=== PATIENT | female | born 1940 | race Caucasian/White ===

== ENCOUNTER 2017-09-05 15:58 | Inpatient (IN) | payer MEDICARE, SELFPAY ==
[2017-09-05 16:00] VITALS: BP 157/72; PULSE 88; RESP 14; TEMP 36.9; O2SAT 98; BMI 32.2
--- NOTE | 2017-09-05 16:35 | RAD_ITS ---
STUDY: X-RAY CHEST REASON FOR EXAM: Female, 77 years old. Bilateral leg edema. TECHNIQUE: Single frontal view of the chest. COMPARISON: September 29, 2013 FINDINGS: There is stable low volume inspiration. There is no demonstrated pleural abnormality. There is cardiomegaly unchanged. Normal mediastinum and tere. Normal visualized pulmonary arteries. There is stable atherosclerotic calcification of the aortic arch with tortuosity. Normal visualized thoracic spine. Normal visualized ribs, clavicles, and shoulders. There is no demonstrated abnormality of the visualized soft tissue structures of the upper abdomen. RAD/Chest 1 View (Portable) IMPRESSION: Stable cardiomegaly with low volume inspiration. No acute pathology. Electronically Signed: Alex Cortes MD at 17:18 EST , Service support ,
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
[2017-09-05 17:28] LABS: Absolute Neutrophil Count 4.6 X10^3/uL (2.0-7.7); Basophil# 0.03 X10^3/uL; Basophil% 0.5 % (0-1); Eosinophil# 0.18 X10^3/uL; Eosinophils% 2.7 % (0-5); Hematocrit 34.8 % (37-47); Hemoglobin 10.9 g/dl (12.0-15.0); Lymphocyte % 16.6 % (19-41); Mean Corp Hgb Conc 31.3 g/gl (32-36); Mean Corpuscular Hgb 28.6 pg (27.0-32.0); Mean Corpuscular Volume 91.3 fL (81-99); Mean Platelet Vol. 10.1 fl (6.2-12.0); Monocyte# 0.76 X10^3/uL; Monocyte% 11.5 % (0-10); Neutrophil # 4.55 X10^3/uL (2.7-7.7); Neutrophil % 68.5 % (47-70); Platelet Count 195 K/mm3 (150-450); RBC Distribution Width CV 14.7 % (11.6-14.6); RBC Distribution Width SD 47.9 fl (35.1-43.9); Red Blood Count 3.81 M/mm3 (4.2-5.4); White Blood Count 6.6 K/mm3 (4.4-11.0)
[2017-09-05 17:36] LABS: Erythrocyte Sedimentation Rate 32 mm/hr (0-30)
[2017-09-05 17:46] LABS: POSITIVE COUNT NO; POSITIVE DIFFERENTIAL NO; POSITIVE MORPHOLOGY NO
[2017-09-05 18:13] LABS: BNP,B-Type NATRIURETIC PEPTIDE 12.9 pg/mL (0-100)
--- NOTE | 2017-09-05 18:13 | US_ITS ---
STUDY: VENOUS DOPPLER ULTRASOUND - BILATERAL LOWER EXTREMITIES REASON FOR EXAM: Female, 77 years old. Bilateral edema lower extremities TECHNIQUE: Ultrasound evaluation of the deep vein system to include felipe-scale imaging and compression was performed. Felipe-scale imaging and Doppler sonographic evaluation, including duplex spectral analysis and qualitative color flow sonography, was performed. COMPARISON: None. FINDINGS: RIGHT LEG Common Femoral Vein: Normal compression, spontaneity and augmentation. Normal color Doppler. Common Femoral Vein/Greater Saphenous Junction: Normal compression, spontaneity and augmentation. Normal color Doppler. Deep Femoral Vein: Normal compression, spontaneity and augmentation. Normal color Doppler. Superficial Femoral Proximal: Normal compression, spontaneity and augmentation. Normal color Doppler. Superficial Femoral Middle: Normal compression, spontaneity and augmentation. Normal color Doppler. Superficial Femoral Distal: Normal compression, spontaneity and augmentation. Normal color Doppler. Popliteal Vein: Normal compression, spontaneity and augmentation. Normal color Doppler. Posterior Tibial Vein: Normal compression, spontaneity and augmentation. Normal color Doppler. Peroneal Vein: Normal compression, spontaneity and augmentation. Normal color Doppler. There is no demonstrated deep venous thrombosis. LEFT LEG Common Femoral Vein: Normal compression, spontaneity and augmentation. Normal color Doppler. Common Femoral Vein/Greater Saphenous Junction: Normal compression, spontaneity and augmentation. Normal color Doppler. Deep Femoral Vein: Normal compression, spontaneity and augmentation. Normal color Doppler. Superficial Femoral Proximal: Normal compression, spontaneity and augmentation. Normal color Doppler. Superficial Femoral Middle: Normal compression, spontaneity and augmentation. Normal color Doppler. Superficial Femoral Distal: Normal compression, spontaneity and augmentation. Normal color Doppler. Popliteal Vein: Normal compression, spontaneity and augmentation. Normal color Doppler. Posterior Tibial Vein: Normal compression, spontaneity and augmentation. Normal color Doppler. Peroneal Vein: Normal compression, spontaneity and augmentation. Normal color Doppler. US/Venous Duplex Imag/David Extrem IMPRESSION: Normal venous Doppler ultrasound of the bilateral lower extremities. Electronically Signed: Sherman Escobedo MD at 19:43 EST , Service support ,
[2017-09-05 18:18] LABS: Anion Gap 7 (5-15); BUN 17 mg/dL (7-18); BUN/Creat Ratio 35.9 RATIO (10-20); CRP < 2.90 mg/L (0.0-3.0); Calcium,Total 9.1 mg/dL (8.5-10.1); Chloride 106 mmol/L (98-107); Creatinine, Serum 0.47 mg/dL (0.55-1.02); EST Glomerular Filtration Rate 135 mL/min (>60); Est Glom Filt Rate - Afr Amer 163 mL/min (>60); Estimated Creatinine Clearance 32.77 ml/min; Glucose 88 mg/dL (70-110); Potassium 3.6 mmol/L (3.5-5.1); Sodium Level 141 mmol/L (136-145)
--- NOTE | 2017-09-05 18:22 | CT_ITS ---
STUDY: CT LOWER LEG LEFT REASON FOR EXAM: Female, 77 years old. Swelling left lower leg RADIATION DOSAGE (If Supplied By Facility): CTDIvol = ( 15.35 ) mGy, DLP = ( 756.73 ) mGycm. Individualized dose optimization techniques were used for this CT.? TECHNIQUE: Standard protocol with 100 cc Isovue-300. COMPARISON: None. FINDINGS: Diffuse soft tissue swelling and subcutaneous edema in the entire lower leg. This multilobulated fluid collection medial mid lower leg subcutaneous tissues. Tibia and fibula appear normal. CT/Extremity Lower WITH Contrast IMPRESSION: Diffuse subcutaneous edema and loculated fluid collection. Differential considerations include hematoma or abscess. Cellulitis or fasciitis not excluded. Electronically Signed: Sherman Escobedo MD at 19:36 EST , Service support ,
[2017-09-05 19:12] VITALS: BP 167/77; PULSE 97; RESP 18; O2SAT 97
[2017-09-05 20:50] VITALS: BP 161/63; PULSE 104; RESP 18; O2SAT 96
[2017-09-05 21:00] VITALS: BP 161/63; PULSE 104; RESP 18; O2SAT 96
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
[2017-09-05 22:57] VITALS: BMI 35.6; BMI 35.7
[2017-09-05 23:12] VITALS: BP 152/63; PULSE 80; RESP 18; TEMP 36.7; O2SAT 97
[2017-09-05] MEDS: traZODone 50 MG Tablet PO (23:52)
[2017-09-05] MEDS: Heparin Injection 5,000 UNITS/ML Syringe 5000 UNITS SC (23:52)
[2017-09-05] MEDS: Furosemide 500 MG in Empty Viaflex 50 mL 1 EACH CONT INF (23:53)
[2017-09-05] MEDS: 0.9% NaCl Peripheral Flush Adult/Peds IV (23:53)
--- NOTE | 2017-09-05 23:53 | NURSING ---
CHECKED LASIX DRIP WHEN HUNG WITH IRAM GAINES
[2017-09-06] MEDS: Menthol/Lanolin/Calamine/Znox 113 GM Tube 1 APPLIC TOPICAL ×3 (05:18→23:22)
[2017-09-06] MEDS: Heparin Injection 5,000 UNITS/ML Syringe 5000 UNITS SC ×3 (05:19→23:23)
[2017-09-06] MEDS: Nystatin Powder 15gm Bottle 1 APPLIC TOPICAL ×3 (05:19→23:23)
[2017-09-06 05:46] VITALS: BP 129/66; PULSE 72; RESP 16; TEMP 36.6; O2SAT 96
--- NOTE | 2017-09-06 05:55 | CT_ITS ---
STUDY: CT ABDOMEN AND PELVIS WITH CONTRAST REASON FOR EXAM: Female, 77 years old. Uterine cancer and prior radiation and hysterectomy. RADIATION DOSAGE (If Supplied By Facility): CTDIvol = ( 16.56 ) mGy, DLP = ( 1069.67 ) mGycm TECHNIQUE: Transaxial images were obtained from the dome of the diaphragm to the symphysis pubis without oral contrast. 100CC ml of Isovue 300 contrast was administered. Sagittal and coronal images were reconstructed. Individualized dose optimization techniques were used for this CT. COMPARISON: January 25, 2012 FINDINGS: The visualized lung bases are unremarkable. Moderate cardiomegaly Subcentimeter ill-defined hypodensity in the right lobe of the liver. Normal gallbladder and extrahepatic biliary system. Normal spleen. Normal pancreas. Normal bilateral adrenal glands. Normal right kidney. Normal left kidney. Normal visualized stomach. Normal small intestine. Normal colon. The appendix is visualized and appears normal. There is diffuse atherosclerotic calcification of the abdominal aorta, without a demonstrated aneurysm. Normal inferior vena cava. Normal retroperitoneum. Bladder is decompressed with a Marie catheter. Normal abdominal wall. Hardware noted in the left hip. Moderate scoliosis. CT/Abdomen/Pelvis WITH Contrast IMPRESSION: Normal enhanced CT of the abdomen and pelvis. Electronically Signed: Sherman Escobedo MD at 18:40 EST , Service support ,
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
[2017-09-06 10:16] VITALS: BP 141/77; PULSE 100; RESP 18; TEMP 36.7; O2SAT 98
[2017-09-06] MEDS: Carvedilol 3.125 MG TABLET PO ×2 (10:24→23:23)
[2017-09-06 12:56] LABS: Anion Gap 6 (5-15); BUN 14 mg/dL (7-18); Calcium,Total 8.8 mg/dL (8.5-10.1); Chloride 103 mmol/L (98-107); Creatinine, Serum 0.61 mg/dL (0.55-1.02); EST Glomerular Filtration Rate 101 mL/min (>60); Est Glom Filt Rate - Afr Amer 122 mL/min (>60); Estimated Creatinine Clearance 32.77 ml/min; Glucose 78 mg/dL (70-110); Potassium 3.5 mmol/L (3.5-5.1); Sodium Level 140 mmol/L (136-145)
--- NOTE | 2017-09-06 13:25 | CASEMGMT ---
IRAM WHALEY Face to Face with patient for initial transition planning/care coordination assessment. IRAM WHALEY introduced self and role at [facility]. Patient sitting in chair, alert and oriented. Patient willing to participate in assessment and is able to answer all questions appropriately. Care providers, pharmacy, and demographics verified. See link attached. Patient wishes to discharge home with resumption of HHC with [facility]. IRAM WHALEY left message for [facility] updating that patient was in hospital and would like to resume care at discharge. Patient states she has no further needs or concerns at this time. CM to follow for discharge planning needs that may arise. Disposition Plan: Patient to discharge home with HHC, family support, and follow-up plans in place.
[2017-09-06 14:15] VITALS: BP 140/71; PULSE 93; RESP 18; TEMP 37.2; O2SAT 95
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
[2017-09-06] MEDS: 0.9% NaCl Peripheral Flush Adult/Peds IV ×3 (18:03→23:22)
[2017-09-06 19:46] VITALS: BP 125/61; PULSE 93; RESP 16; TEMP 36.5; O2SAT 96
[2017-09-06] MEDS: traZODone 50 MG Tablet PO (23:23)
[2017-09-07 02:04] VITALS: BP 157/70; PULSE 76; RESP 18; TEMP 36.5; O2SAT 99
[2017-09-07] MEDS: Nystatin Powder 15gm Bottle 1 APPLIC TOPICAL ×3 (05:10→21:58)
[2017-09-07] MEDS: Menthol/Lanolin/Calamine/Znox 113 GM Tube 1 APPLIC TOPICAL ×3 (05:10→22:04)
[2017-09-07 09:15] VITALS: BP 130/67; PULSE 110; RESP 18; TEMP 36.1; O2SAT 99
[2017-09-07] MEDS: Heparin Injection 5,000 UNITS/ML Syringe 5000 UNITS SC ×2 (09:24→21:57)
[2017-09-07] MEDS: Carvedilol 3.125 MG TABLET PO ×2 (09:24→21:57)
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
[2017-09-07 11:28] LABS: Anion Gap 12 (5-15); BUN 14 mg/dL (7-18); BUN/Creat Ratio 19.8 RATIO (10-20); Calcium,Total 8.8 mg/dL (8.5-10.1); Chloride 97 mmol/L (98-107); Creatinine, Serum 0.71 mg/dL (0.55-1.02); EST Glomerular Filtration Rate 85 mL/min (>60); Est Glom Filt Rate - Afr Amer 103 mL/min (>60); Estimated Creatinine Clearance 32.77 ml/min; Glucose 158 mg/dL (70-110); Potassium 3.1 mmol/L (3.5-5.1); Sodium Level 139 mmol/L (136-145)
[2017-09-07] MEDS: Furosemide 500 MG in Empty Viaflex 50 mL 1 EACH CONT INF (13:36)
--- NOTE | 2017-09-07 14:13 | PCM.PN.SRG ---
Subjective: patient denies pain, ambulating somewhat, leg elevation difficult due to brace - Physical Exam General: Alert Oral: Moist Mucosa Extremities: - - decreased erythema, still with chronic skin changes to medial aspect, lateral aspect with edema almost like blistering effect but no fluctuance noted Vital Signs Temp Pulse Resp BP Pulse Ox 97.0 F L 110 H 18 130/67 H 99 09/07/17 09:15 09/07/17 09:15 09/07/17 09:15 09/07/17 09:15 09/07/17 09:15 Oxygen Delivery Method Room Air Weight: 82.9 kg Body Mass Index (BMI) 35.6 Intake and Output for Last 24 Hours 09/05/17 09/06/17 09/07/17 23:59 23:59 23:59 Intake Total 821 / 821 106 / 106 Output Total 3650 / 3650 500 / 500 Balance -2829 / -2829 -394 / -394 Laboratory Tests Past 24 Hrs 09/07/17 10:30 Sodium 139 Potassium 3.1 L Chloride 97 L Carbon Dioxide 30.0 Anion Gap 12 BUN 14 Creatinine 0.71 Estim Creat Clear Calc 32.77 Est GFR (MDRD) Af Amer 103 Est GFR (MDRD) Non-Af 85 BUN/Creatinine Ratio 19.8 Glucose 158 H Calcium 8.8 Assessment/Plan Impression: cellulitis chronic lymphedema Plan: patient counseled to ambulate, leg elevation when lying in bed continue present therapy
[2017-09-07 16:03] VITALS: BP 122/67; PULSE 95; RESP 18; TEMP 36.8; O2SAT 96
[2017-09-07 20:15] VITALS: BP 135/71; PULSE 100; RESP 18; TEMP 36.8; O2SAT 95
[2017-09-07] MEDS: traZODone 50 MG Tablet PO (21:57)
[2017-09-08 02:10] VITALS: BP 129/84; PULSE 94; RESP 18; TEMP 36.4; O2SAT 98
[2017-09-08] MEDS: Menthol/Lanolin/Calamine/Znox 113 GM Tube 1 APPLIC TOPICAL ×3 (05:20→22:50)
[2017-09-08] MEDS: Nystatin Powder 15gm Bottle 1 APPLIC TOPICAL ×2 (05:20→15:12)
[2017-09-08 08:13] VITALS: BP 168/76; PULSE 84; RESP 16; TEMP 36.6; O2SAT 98
[2017-09-08 08:29] LABS: Anion Gap 11 (5-15); BUN 15 mg/dL (7-18); BUN/Creat Ratio 25.5 RATIO (10-20); Calcium,Total 8.8 mg/dL (8.5-10.1); Chloride 96 mmol/L (98-107); Creatinine, Serum 0.59 mg/dL (0.55-1.02); EST Glomerular Filtration Rate 105 mL/min (>60); Est Glom Filt Rate - Afr Amer 127 mL/min (>60); Estimated Creatinine Clearance 32.77 ml/min; Glucose 88 mg/dL (70-110); Potassium 3.9 mmol/L (3.5-5.1); Sodium Level 137 mmol/L (136-145)
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
[2017-09-08 09:40] VITALS: BP 145/60
[2017-09-08] MEDS: Carvedilol 3.125 MG TABLET PO ×2 (10:40→22:51)
[2017-09-08] MEDS: Heparin Injection 5,000 UNITS/ML Syringe 5000 UNITS SC ×2 (10:41→22:51)
[2017-09-08 13:46] VITALS: BP 126/58; PULSE 100; RESP 20; TEMP 36.9; O2SAT 96
[2017-09-08 18:12] VITALS: BP 137/58; PULSE 91; RESP 18; TEMP 36.4; O2SAT 98
[2017-09-08 22:34] VITALS: BP 139/52; PULSE 87; RESP 14; TEMP 36.8; O2SAT 96
[2017-09-08] MEDS: traZODone 50 MG Tablet PO (22:51)
[2017-09-09 03:31] VITALS: BP 125/60; PULSE 89; RESP 14; TEMP 36.6; O2SAT 98
[2017-09-09] MEDS: Acetaminophen 500 MG Tablet 1000 MG PO (04:25)
[2017-09-09 08:30] VITALS: BP 146/68; PULSE 93; RESP 16; TEMP 36.3; O2SAT 96
[2017-09-09] MEDS: 0.9% NaCl Peripheral Flush Adult/Peds IV (08:32)
[2017-09-09] MEDS: Heparin Injection 5,000 UNITS/ML Syringe 5000 UNITS SC ×2 (08:38→22:44)
[2017-09-09] MEDS: Carvedilol 3.125 MG TABLET PO ×2 (08:38→22:44)
[2017-09-09 08:39] LABS: Anion Gap 8 (5-15); BUN 20 mg/dL (7-18); BUN/Creat Ratio 25.5 RATIO (10-20); Calcium,Total 9.2 mg/dL (8.5-10.1); Chloride 95 mmol/L (98-107); Creatinine, Serum 0.78 mg/dL (0.55-1.02); EST Glomerular Filtration Rate 75 mL/min (>60); Est Glom Filt Rate - Afr Amer 91 mL/min (>60); Estimated Creatinine Clearance 32.77 ml/min; Glucose 104 mg/dL (70-110); Sodium Level 136 mmol/L (136-145)
[2017-09-09] MEDS: Menthol/Lanolin/Calamine/Znox 113 GM Tube 1 APPLIC TOPICAL (13:21)
[2017-09-09] MEDS: Nystatin Powder 15gm Bottle 1 APPLIC TOPICAL (13:22)
--- NOTE | 2017-09-09 13:52 | CASEMGMT ---
RN JOVANA called [facility] who was providing HHC prior to patient's admission to hospital. RN CM updated [facility] of patient's admission and resumption of care at discharge. RN CM will update [facility] when patient is discharged home.
[2017-09-09 14:30] VITALS: BP 136/81; PULSE 96; RESP 18; TEMP 36.6; O2SAT 98
--- NOTE | 2017-09-09 15:22 | CHAPLAIN ---
Type of Pastoral Visit _x__ Initial Visit ___ Follow-up Visit ___ On-call Visit ___ General Patient Visit ___ Spiritual Assessment ___ Family Conference ___ Bereavement ___ Rapid Response ___ Code Blue ___ Other (describe below) Pastoral Care Referral From _x__ Patient ___ Family ___ Nurse ___ Physician ___ Heat Treatment Technician ___ Shop Firer/Fireman ___ Other (describe below) Sacrament/Intervention _x__ Active listening ___ Anointing ___ Zoroastrian ___ Bereavement ___ Communion ___ Nanci exploration ___ _x__ Life review _x__ Prayer ___ Reconciliation ___ Sacrament of Sick _x__ Supportive presence ___ Wedding ___ Other (describe below) Pastoral Comments
--- NOTE | 2017-09-09 16:58 | PCM.PN.SRG ---
Subjective: patient had pain of left lower extremity last night, but none presently - Physical Exam General: Alert Oral: Moist Mucosa Extremities: - - no changes, still with chronic skin changes to medial aspect, lateral aspect with edema almost like blistering effect but no fluctuance noted Vital Signs Temp Pulse Resp BP Pulse Ox 97.4 F L 93 16 146/68 H 96 09/09/17 08:30 09/09/17 08:30 09/09/17 08:30 09/09/17 08:30 09/09/17 08:30 Oxygen Delivery Method Room Air Weight: 82.9 kg Body Mass Index (BMI) 35.6 Intake and Output for Last 24 Hours 09/07/17 09/08/17 09/09/17 23:59 23:59 23:59 Intake Total 1191 / 1191 487 / 487 175.9 / 175.9 Output Total 1025 / 1025 2625 / 2625 850 / 850 Balance 166 / 166 -2138 / -2138 -674.1 / -674.1 Laboratory Tests Past 24 Hrs 09/09/17 08:00 Sodium 136 Potassium 4.0 Chloride 95 L Carbon Dioxide 33.0 H Anion Gap 8 BUN 20 H Creatinine 0.78 Estim Creat Clear Calc 32.77 Est GFR (MDRD) Af Amer 91 Est GFR (MDRD) Non-Af 75 BUN/Creatinine Ratio 25.5 H Glucose 104 Calcium 9.2 Assessment/Plan Impression: cellulitis chronic lymphedema Plan: no surgical intervention indicated continue present therapy
[2017-09-09] MEDS: Polyethylene Glycol 3350 17 GM PACKET PO (17:51)
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
[2017-09-09 22:30] VITALS: BP 157/82; PULSE 85; RESP 16; TEMP 36.9; O2SAT 98
[2017-09-09] MEDS: traZODone 50 MG Tablet PO (22:44)
[2017-09-10 03:27] VITALS: BP 146/71; PULSE 95; RESP 16; TEMP 36.8; O2SAT 97
[2017-09-10] MEDS: Furosemide 100 MG/10 ML Vial 80 MG IV (08:52)
[2017-09-10] MEDS: 0.9% NaCl Peripheral Flush Adult/Peds IV (08:58)
[2017-09-10 09:00] VITALS: BP 157/67; PULSE 99; RESP 18; TEMP 36.7; O2SAT 98
[2017-09-10] MEDS: Heparin Injection 5,000 UNITS/ML Syringe 5000 UNITS SC (09:00)
[2017-09-10] MEDS: Carvedilol 3.125 MG TABLET PO (09:00)
[2017-09-10] MEDS: Menthol/Lanolin/Calamine/Znox 113 GM Tube 1 APPLIC TOPICAL (13:33)
[2017-09-10] MEDS: Nystatin Powder 15gm Bottle 1 APPLIC TOPICAL (13:34)
--- NOTE | 2017-09-10 14:59 | DCINST_ITS ---
- Discharge Diagnoses Current Active Problems: Current Active and Chronic Problems (Last Updated 08/08/17 @ 13:02 by Jaquan Yarbrough NP-C) Bilateral leg edema (Acute) You will use the following diet at home:: Cardiac - 2 g sodium Your food should be the consistency of: Regular Your liquids should be the consistency of: Regular/Thin Discharge Activity: Return to Normal Activity Weight Bearing Status: Full weight bearing Call your doctor if you observe: Fever of 101 or Higher, Inability to urinate, Shortness of breath, Dizziness, Fainting spells, Swelling in the ankles, Chest pain Additional Instructions: 1. The best way to tell if you are retaining fluid is to weigh yourself daily. If the weight increases by 1-2 lbs for 2-3 days in a row or it increases by 5 more pounds in a week then you need to call Dr. Hays for instructions on what to do with the Lasix. 2. The more salt you eat the more water you retain so avoid canned soups and vegetables and lunch meats, donaldson, smoked meats, pickles, sauerkraut. Eat fresh or frozen vegetables, skinless chicken breasts, lean pork. No pretzels, potato chips. 3. The number of the hospital is [phone]. If you want to talk with me and I am working I would be happy to talk with you. 4. You did not have an infection in the leg...the redness in the legs was due to the large amount of fluid in the legs and venous stasis. No antibiotics needed at discharge. 5. I sent your prescriptions to [facility]. I increased the dose of the Carvedilol to better control the blood pressure and gave you a prescription for Lasix and a potassium supplement. 6. I have given you a lab requisition to have blood work in 1 week and the results will be sent to Dr. Hays. You should see Dr. Hays in the office in 10 days. Pending Tests on Discharge: none Allergies/Adverse Reactions: Allergies adhesive Allergy (Verified 09/05/17 16:03) Hives dicyclomine HCl [From Bentyl] Allergy (Verified 09/05/17 16:03) Hives aspirin Adverse Reaction (Verified 09/05/17 16:03) Low platelets Medications to take at Discharge Valsartan [Diovan] 80 mg PO DAILY 12/22/13 Cholecalciferol (Vitamin D3) [Vitamin D3] 2,000 unit PO DAILY 08/12/17 Trazodone HCl 50 mg PO QHS 09/05/17 Carvedilol [Coreg] 6.25 mg PO BID #60 tab 09/10/17 Furosemide [Lasix] 40 mg PO BID #60 tab 09/10/17 Potassium Chloride [K-Dur] 20 meq PO DAILYCM #30 tab 09/10/17 The following prescriptions were given: Potassium Chloride [K-Dur] 20 meq PO DAILYCM #30 tab Carvedilol [Coreg] 6.25 mg PO BID #60 tab Furosemide [Lasix] 40 mg PO BID #60 tab Primary Care Physician: Jaquan Hays MD [Primary Care Provider] - Please follow up with your Primary Care Physician in: 10 days Proposed Discharge Date: 09/10/17
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
[2017-09-10 16:27] VITALS: BP 149/84; PULSE 95; RESP 18; TEMP 37.1; O2SAT 99
== END 2017-09-10 16:47 | disposition home health service (06) | DRG 300 ==
LOC: ED 21:58 → MS3 22:03
PROVIDERS: Internal Medicine; Admitting Provider Internal Medicine; Emergency Provider Emergency Medicine; Family Provider Family Medicine; PCP Family Medicine; Visit Provider Internal Medicine
DX: I87.2 Venous insufficiency (chronic) (peripheral) (principal); L03.116 Cellulitis of left lower limb; I27.20 Pulmonary hypertension, unspecified; I42.9 Cardiomyopathy, unspecified; Z85.42 Personal history of malignant neoplasm of other parts of uterus; I10 Essential (primary) hypertension; Z92.3 Personal history of irradiation; Z90.710 Acquired absence of both cervix and uterus; I89.0 Lymphedema, not elsewhere classified; R60.0 Localized edema; K21.9 Gastro-esophageal reflux disease without esophagitis; S12.9XXD Fracture of neck, unspecified, subsequent encounter; S22.9XXD Fracture of bony thorax, part unspecified, subsequent encounter for fracture with routine healing; V89.2XXD Person injured in unspecified motor-vehicle accident, traffic, subsequent encounter; I34.0 Nonrheumatic mitral (valve) insufficiency; E78.5 Hyperlipidemia, unspecified
CPT/HCPCS: 36415; 71045; 73701; 74177; 80048; 83880; 85025; 85652; 86140; 93970; 97110; 97116; 97162; 97166; 97530; 97535; 97802; 99284; Q9957; Q9967; A4216; J1940

== ENCOUNTER → 2017-10-03 13:33 | Outpatient (CLI) | payer MEDICARE, SELFPAY ==
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
[2017-10-03 14:58] LABS: Absolute Lymphocyte Count 1.13 X10^3/ul (0.83-4.51); Absolute Neutrophil Count 4.4 X10^3/uL (2.0-7.7); Basophil# 0.02 X10^3/uL; Basophil% 0.3 % (0-1); Eosinophils% 1.6 % (0-5); Hematocrit 36.9 % (37-47); Hemoglobin 11.5 g/dl (12.0-15.0); Lymphocyte # 1.13 X10^3/ul (4.0); Lymphocyte % 18.4 % (19-41); Mean Corp Hgb Conc 31.2 g/gl (32-36); Mean Corpuscular Hgb 27.7 pg (27.0-32.0); Mean Corpuscular Volume 88.9 fL (81-99); Mean Platelet Vol. 11.1 fl (6.2-12.0); Monocyte# 0.52 X10^3/uL; Monocyte% 8.5 % (0-10); Neutrophil # 4.36 X10^3/uL (2.7-7.7); Neutrophil % 70.9 % (47-70); Platelet Count 195 K/mm3 (150-450); RBC Distribution Width CV 14.4 % (11.6-14.6); RBC Distribution Width SD 46.2 fl (35.1-43.9); Red Blood Count 4.15 M/mm3 (4.2-5.4); White Blood Count 6.2 K/mm3 (4.4-11.0)
[2017-10-03 14:59] LABS: POSITIVE COUNT NO; POSITIVE DIFFERENTIAL NO; POSITIVE MORPHOLOGY NO
[2017-10-03 15:20] LABS: Anion Gap 9 (5-15); BUN 16 mg/dL (7-18); BUN/Creat Ratio 25.9 RATIO (10-20); Calcium,Total 9.1 mg/dL (8.5-10.1); Chloride 105 mmol/L (98-107); Creatinine, Serum 0.62 mg/dL (0.55-1.02); EST Glomerular Filtration Rate 99 mL/min (>60); Est Glom Filt Rate - Afr Amer 120 mL/min (>60); Glucose 127 mg/dL (74-106); Magnesium 2.2 mg/dL (1.6-2.6); Potassium 3.9 mmol/L (3.5-5.1); Sodium Level 140 mmol/L (136-145)
== END ==
PROVIDERS: Family Provider Family Medicine; PCP Family Medicine
DX: S12.031D Nondisplaced posterior arch fracture of first cervical vertebra, subsequent encounter for fracture with routine healing (principal); V89.2XXD Person injured in unspecified motor-vehicle accident, traffic, subsequent encounter; D64.9 Anemia, unspecified; R60.0 Localized edema
CPT/HCPCS: 36415; 72125; 80048; 83735; 85025

== ENCOUNTER → 2017-11-04 15:18 | Outpatient (CLI) | payer MEDICARE, SELFPAY ==
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
== END ==
PROVIDERS: Family Provider Family Medicine; PCP Family Medicine; Visit Provider Orthopaedic Surgery
DX: M19.011 Primary osteoarthritis, right shoulder (principal); M85.811 Other specified disorders of bone density and structure, right shoulder
CPT/HCPCS: 73030

== ENCOUNTER → 2017-11-28 10:29 | Outpatient (CLI) | payer MEDICARE, SELFPAY ==
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
== END ==
PROVIDERS: Family Provider Family Medicine; PCP Family Medicine; Visit Provider Orthopaedic Surgery
DX: M75.101 Unspecified rotator cuff tear or rupture of right shoulder, not specified as traumatic (principal)
CPT/HCPCS: 23350; 73040; 73201; Q9965; A9577; Q9967

== ENCOUNTER → 2018-01-14 13:18 | Outpatient (CLI) | payer MEDICARE, SELFPAY ==
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
== END ==
PROVIDERS: Family Provider Family Medicine; PCP Family Medicine; Visit Provider Orthopaedic Surgery
DX: M54.2 Cervicalgia (principal)
CPT/HCPCS: 72050

== ENCOUNTER 2018-03-20 15:30 | Outpatient (RCR) | payer MEDICARE, SELFPAY ==
[2018-03-06 14:46] VITALS: BP 141/77; PULSE 86; RESP 20; TEMP 36.8
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
[2018-03-13 15:39] VITALS: BP 145/80; PULSE 98; RESP 18; TEMP 36.9
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
[2018-03-20 15:40] VITALS: BP 154/89; PULSE 96; RESP 16; TEMP 36.8
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
--- NOTE | 2018-03-23 18:04 | LEAS_ITS ---
Arterial Study - Arterial Study Arterial Study: This is a 77-year-old female with leg pain and an ulceration in the right lower extremity. Suspecting the presence of atherosclerotic peripheral arterial occlusive disease, the patient was brought to the noninvasive vascular laboratory at this time for the purpose of bilateral noninvasive lower extremity arterial assessment. Doppler signal assessment was used to evaluate the pulses at ankle level bilaterally. The posterior tibial and dorsalis pedis pulses were triphasic bilaterally. Segmental limb pressures were obtained bilaterally. The right ankle pressure, as determined by posterior tibial pulse, was measured at 215 mmHg. The right ankle pressure, as determined by dorsalis pedis pulse, was measured at 183 mmHg. The right digital pressure was measured at 94 mmHg. The left ankle pressure, as determined by posterior tibial pulse, was measured at 210 mmHg. The left ankle pressure, as determined by dorsalis pedis pulse, was measured at 191 mmHg. The left digital pressure was measured at 124 mmHg. Pulse-volume recordings were obtained bilaterally and segmentally. Waveform amplitudes appeared to be satisfactory at all levels bilaterally, including low thigh, calf, ankle, and digital levels. Resting ankle-brachial indices were calculated bilaterally. The resting right ankle-brachial index was calculated to be 1.47. The resting left ankle-brachial index was calculated to be 1.44. Digital-brachial indices were calculated bilaterally. The right digital- brachial index was calculated to be 0.64. The left digital-brachial index was calculated to be 0.85. Impression: Based upon the findings of this resting noninvasive lower extremity arterial study, there is evidence of arterial calcification. This is suspected due to supra-normal resting ankle-brachial indices bilaterally. Triphasic waveforms were noted at ankle level bilaterally, suggesting relatively normal arterial flow at ankle level bilaterally. The right digital-brachial index is mildly diminished, suggesting mild, distal, small-vessel arterial occlusive disease. The left digital-brachial index is normal. The presence of arterial calcification can factitiously elevate arterial pressures, and not truly reflect the presence of arterial occlusive disease. Therefore, clinical correlation is advised.
== END 2018-03-25 23:59 ==
LOC: WC 15:30
PROVIDERS: Family Provider Family Medicine; PCP Family Medicine; Visit Provider Nurse Practitioner Family
DX: I87.2 Venous insufficiency (chronic) (peripheral) (principal); I27.20 Pulmonary hypertension, unspecified; I89.0 Lymphedema, not elsewhere classified; I10 Essential (primary) hypertension; E78.5 Hyperlipidemia, unspecified; R60.0 Localized edema; L97.812 Non-pressure chronic ulcer of other part of right lower leg with fat layer exposed; M79.89 Other specified soft tissue disorders; R09.89 Other specified symptoms and signs involving the circulatory and respiratory systems
CPT/HCPCS: 11042; 87070; 87075; 87205; 93923; 99213; G0463

== ENCOUNTER 2018-04-01 08:14 | Outpatient (RCR) | payer MEDICARE, SELFPAY ==
[2018-03-26 01:24] VITALS: BP 154/89; PULSE 96; RESP 16; TEMP 36.8
[2018-04-01 11:27] VITALS: BP 143/76; PULSE 86; RESP 18; TEMP 36.8
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
--- NOTE | 2018-04-02 15:23 | WC ---
04/01/18: Patient seen by Dr. Post (Please review H&P notes for DOS). Treatment plan discussed application of UNNA Boots to both lower extremities with leg elevation at heart level or higher. Dr. Post spoke with the patient extensively to educate on the necessity of leg elevation, and compression for leg swelling and fluid leakage from RLE. Mrs. Morocho expressed her concern over not being able to lay flat on a bed due to other medical conditions. After Dr. Post left the room she was refusing to use the UNNA Boots until she spoke with her PCP Dr. Jack Hays. She was concerned over the UNNA Boots restricting her mobility, and causing her to fall. She further inquired why her right leg and sometimes her left leg leaks fluid. Explanation provided, but said her lasix should take care of the swelling. Dr. Post notified of the above. Dr. Hays also to be notified by phone, and faxed copy of the Progress Notes.
--- NOTE | 2018-04-02 15:57 | WC ---
04/01/18: Seen by Dr. Post as referral by Dr. Jaquan Hays (PCP); (See H&P Note for DOS). Education and information provided extensively by Dr. Post related to the listed treatment plan, reason for treatment plan, and results of following the plan. Treatment Plan is as follows: 1. Leg Elevation 3 times daily for 30 minutes 2. UNNA Boots bilaterally-Changed twice weekly at the Wound Center 3. Sequential Lymphedema Pumps 40 mmHg/60 min./TID After Dr. Post left the room, she expressed concern over wearing the UNNA Boots, restricting her mobility, and increasing her fall risk. Explanation and education provided regarding the UNNA Boot, as well as the reason for its use. She refused to have the UNNA Boots applied and wants to continue to use 'Tubigrip Stockings'. It was explained to her by Dr. Post, the 'Tubigrips' are not considered compression, and that she has been wearing them for the past 4 weeks without any improvement. Right lower leg ulcer has not improved as well, and continues to seep serosanguinous fluid. Mr. Morocho wants to check with her PCP (Dr. Vu Hays), before donning UNNA Boots. Dr. Post made aware of patient's choice. Treatment recommendations have been made and if patient does not wish to participate in those recommendations, there is nothing further the Wound Center will be able to provide. At this point, Mrs. Morocho will RTC in 1 week (04/08/18). Based on the previous sentence, she will be discharged from the Wound Center at that time, unless something changes. 04/02/18: 16:00 Dr. Hays's office contacted for fax information. Above situation explained. Mrs. Morocho has a follow-up appointment with Dr. Hays Saturday. Dr. Post's note as well as order sheet from 04/01/[address] Hays's Office. Patient left Clinic wearing 'Single-Layer' Tubigrip size F.
== END 2018-04-25 23:59 ==
LOC: WC 08:14
PROVIDERS: Family Provider Family Medicine; PCP Family Medicine; Visit Provider Surgery
DX: I87.2 Venous insufficiency (chronic) (peripheral) (principal); R60.0 Localized edema; I27.20 Pulmonary hypertension, unspecified; M79.89 Other specified soft tissue disorders; I89.0 Lymphedema, not elsewhere classified; L97.911 Non-pressure chronic ulcer of unspecified part of right lower leg limited to breakdown of skin; E78.5 Hyperlipidemia, unspecified; I10 Essential (primary) hypertension; K21.9 Gastro-esophageal reflux disease without esophagitis; E55.9 Vitamin D deficiency, unspecified; M19.90 Unspecified osteoarthritis, unspecified site
CPT/HCPCS: 99213; G0463

== ENCOUNTER → 2018-05-14 10:58 | Outpatient (CLI) | payer MEDICARE, SELFPAY ==
[2018-05-14 12:09] LABS: Absolute Lymphocyte Count 1.09 X10^3/ul (0.83-4.51); Absolute Neutrophil Count 3.9 X10^3/uL (2.0-7.7); Basophil# 0.04 X10^3/uL; Basophil% 0.7 % (0-1); Eosinophil# 0.14 X10^3/uL; Eosinophils% 2.5 % (0-5); Hematocrit 40.7 % (37-47); Lymphocyte # 1.09 X10^3/ul (4.0); Lymphocyte % 19.1 % (19-41); Mean Corp Hgb Conc 31.9 g/gl (32-36); Mean Corpuscular Hgb 28.1 pg (27.0-32.0); Mean Corpuscular Volume 88.1 fL (81-99); Mean Platelet Vol. 10.7 fl (6.2-12.0); Monocyte# 0.51 X10^3/uL; Monocyte% 8.9 % (0-10); Neutrophil % 68.4 % (47-70); Platelet Count 198 K/mm3 (150-450); RBC Distribution Width CV 13.9 % (11.6-14.6); RBC Distribution Width SD 44.8 fl (35.1-43.9); Red Blood Count 4.62 M/mm3 (4.2-5.4); White Blood Count 5.7 K/mm3 (4.4-11.0)
[2018-05-14 12:10] LABS: POSITIVE COUNT NO; POSITIVE DIFFERENTIAL NO; POSITIVE MORPHOLOGY NO
[2018-05-14 12:45] LABS: Anion Gap 8 (5-15); BUN 14 mg/dL (7-18); BUN/Creat Ratio 18.4 RATIO (10-20); Chloride 106 mmol/L (98-107); Cholesterol 211 mg/dL (200); Creatinine, Serum 0.76 mg/dL (0.55-1.02); EST Glomerular Filtration Rate 78 mL/min (>60); Est Glom Filt Rate - Afr Amer 94 mL/min (>60); Glucose 83 mg/dL (74-106); High Density Lipoprotein 62 mg/dL; Potassium 3.7 mmol/L (3.5-5.1); Sodium Level 141 mmol/L (136-145); Thyroid Stim Hormone (TSH) 2.64 uIU/mL (0.358-3.74); Triglycerides 129 mg/dL; Very Low Density Lipoprotein 26 mg/dL (5-40)
== END ==
PROVIDERS: Family Provider Family Medicine; PCP Family Medicine; Visit Provider Family Medicine
DX: I10 Essential (primary) hypertension (principal); E03.9 Hypothyroidism, unspecified; D64.9 Anemia, unspecified
CPT/HCPCS: 36415; 80048; 80061; 84443; 85025

== ENCOUNTER → 2018-06-04 13:49 | Outpatient (CLI) | payer MEDICARE, SELFPAY ==
--- NOTE | 2018-06-04 14:43 | NEURO ---
NCS and/or EMG Patient Report Ordering Doctor: Monika Russo DATE OF SERVICE: 06/04/18 Amber Morocho is a 77-year-old female presents for electrodiagnostic testing of the left upper limb. She reports a several month history of numbness in the fourth and fifth digits of the left hand. Electrodiagnostic findings: Left median motor nerve demonstrates prolonged distal latency with normal amplitude and conduction velocity. The left ulnar motor nerve demonstrates normal distal latency and amplitude. However, conduction velocity cannot be calculated across the elbow is an above elbow response was not obtained. On needle EMG, no evidence of denervation is noted in any muscles tested. Motor unit action potentials are normal amplitude and duration. Electrodiagnostic impression: this is an abnormal study in the left upper limb 1. Electrodiagnostic findings are suggestive of a left-sided cubital tunnel syndrome. However, an above elbow response was not obtained and therefore an exact conduction velocity cannot be calculated. The absence of this response in conjunction with the clinical findings do however support the diagnosis. 2. 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 However, the patient does not demonstrate clinical signs of carpal tunnel syndrome. If there are any further questions, please not hesitate to contact me
--- NOTE | 2018-06-04 14:47 | NEURO_ITS ---
NCS and/or EMG Patient Report Ordering Doctor: Monika Russo DATE OF SERVICE: 06/04/18 Amber Morocho is a 77-year-old female presents for electrodiagnostic testing of the left upper limb. She reports a several month history of numbness in the fourth and fifth digits of the left hand. Electrodiagnostic findings: Left median motor nerve demonstrates prolonged distal latency with normal amplitude and conduction velocity. The left ulnar motor nerve demonstrates normal distal latency and amplitude. However, condu ction velocity cannot be calculated across the elbow is an above elbow response was not obtained. On needle EMG, no evidence of denervation is noted in any muscles tested. Motor unit action potentials are normal amplitude and duration. Electrodiagnostic impression: this is an abnormal study in the left upper limb 1. Electrodiagnostic findings are suggestive of a left-sided cubital tunnel syndrome. However, an above elbow response was not obtained and therefore an exact conduction velocity cannot be calculated. The absence of this response in conjunction with the clinical findings do however support the diagnosis. 2. 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 However, the patient does not demonstrate clinical signs of carpal tunnel syndrome. If there are any further questions, please not hesitate to contact me
== END ==
PROVIDERS: Family Provider Family Medicine; PCP Family Medicine; Referring Provider Orthopaedic Surgery; Visit Provider Orthopaedic Surgery
DX: G56.22 Lesion of ulnar nerve, left upper limb (principal)
CPT/HCPCS: 95886; 95909

== ENCOUNTER 2018-11-20 15:00 | Outpatient (RCR) | payer SELFPAY ==
[2018-10-16 13:13] VITALS: BMI 37.3
[2018-11-10 14:45] VITALS: BP 189/88; PULSE 84; RESP 18; TEMP 36.9; BMI 35.2
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
[2018-11-13 15:03] VITALS: BP 162/78; PULSE 78; RESP 16; TEMP 36.6; BMI 35.2
[2018-11-17 14:25] VITALS: BP 149/89; PULSE 80; RESP 24; TEMP 36.3; BMI 35.2
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
[2018-11-20 14:51] VITALS: BP 145/98; PULSE 92; RESP 20; TEMP 36.6; BMI 35.2
== END 2018-11-23 23:59 ==
LOC: WC 15:00
PROVIDERS: Family Provider Family Medicine; PCP Family Medicine; Visit Provider Surgery
DX: I89.0 Lymphedema, not elsewhere classified (principal); I87.2 Venous insufficiency (chronic) (peripheral); I10 Essential (primary) hypertension; M79.89 Other specified soft tissue disorders; R60.0 Localized edema; I27.20 Pulmonary hypertension, unspecified; E78.2 Mixed hyperlipidemia; K21.9 Gastro-esophageal reflux disease without esophagitis; M19.90 Unspecified osteoarthritis, unspecified site; E66.9 Obesity, unspecified; Z68.35 Body mass index [BMI] 35.0-35.9, adult; Z71.3 Dietary counseling and surveillance
CPT/HCPCS: 29580; 99212; 99213; 99215; G0463

== ENCOUNTER 2018-12-08 15:00 | Outpatient (RCR) | payer MEDICARE, SELFPAY ==
[2018-11-24 00:18] VITALS: BP 145/98; PULSE 92; RESP 20; TEMP 36.6
[2018-11-25 14:41] VITALS: BP 142/71; PULSE 91; RESP 18; TEMP 37.2; BMI 35.2
[2018-11-28 15:13] VITALS: BP 161/70; PULSE 85; RESP 16; TEMP 36.6; BMI 35.2
[2018-12-01 14:51] VITALS: BP 142/90; PULSE 92; RESP 16; TEMP 37.4; BMI 35.2
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
[2018-12-08 15:01] VITALS: BP 165/78; PULSE 73; RESP 18; TEMP 36.6; BMI 35.2
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
== END 2018-12-23 23:59 ==
LOC: WC 15:00
PROVIDERS: Family Provider Family Medicine; PCP Family Medicine; Visit Provider Surgery
DX: I89.0 Lymphedema, not elsewhere classified (principal); I87.2 Venous insufficiency (chronic) (peripheral); R60.0 Localized edema; M79.89 Other specified soft tissue disorders; Z85.3 Personal history of malignant neoplasm of breast; Z85.42 Personal history of malignant neoplasm of other parts of uterus; I10 Essential (primary) hypertension; E66.9 Obesity, unspecified; Z68.35 Body mass index [BMI] 35.0-35.9, adult; Z71.3 Dietary counseling and surveillance; E78.2 Mixed hyperlipidemia; K21.9 Gastro-esophageal reflux disease without esophagitis; M19.90 Unspecified osteoarthritis, unspecified site
CPT/HCPCS: 29580; 99212; 99213; G0463

== ENCOUNTER → 2019-03-03 14:20 | Outpatient (CLI) | payer MEDICARE, SELFPAY ==
--- NOTE | 2019-03-03 14:21 | RAD_ITS ---
STUDY: X-RAY - CERVICAL SPINE REASON FOR EXAM: Female, 78 years old. Pain. History of spinal fracture. TECHNIQUE: 4 view(s) of the cervical spine were obtained. COMPARISON: X-ray dated 01/14/2018. CT dated 10/03/2017. FINDINGS: Again noted are fractures of the odontoid and spinous process of C2 which are grossly unchanged when compared with the prior exam. There is no new fracture identified. Alignment is satisfactory. There are stable degenerative changes. The prevertebral soft tissues are unremarkable. There is no radiodense foreign body. RAD/Cerv Spine 4 or 5 Views IMPRESSION: No significant change when compared with 01/14/2018. Electronically Signed: Mehran Hernandez, at 15:54 EDT Tel , Service support ,
== END ==
PROVIDERS: Family Provider Family Medicine; PCP Family Medicine; Referring Provider Orthopaedic Surgery
DX: M75.41 Impingement syndrome of right shoulder (principal); S12.100K Unspecified displaced fracture of second cervical vertebra, subsequent encounter for fracture with nonunion
CPT/HCPCS: 72050

== ENCOUNTER → 2019-03-24 14:02 | Outpatient (CLI) | payer MEDICARE, SELFPAY ==
[2019-03-03 15:10] VITALS: BMI 35.2
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
== END ==
PROVIDERS: Family Provider Family Medicine; PCP Family Medicine; Referring Provider Orthopaedic Surgery; Visit Provider Orthopaedic Surgery
DX: M54.2 Cervicalgia (principal); Z98.1 Arthrodesis status
CPT/HCPCS: 72125

== ENCOUNTER → 2019-05-14 14:25 | Outpatient (CLI) | payer MEDICARE, SELFPAY ==
[2019-04-29 15:05] VITALS: BMI 37.8
--- NOTE | 2019-05-14 14:28 | CT_ITS ---
STUDY: CT BRAIN WITH AND WITHOUT CONTRAST REASON FOR EXAM: Female, 78 years old. Headache. History of breast cancer and uterine cancer. RADIATION DOSAGE (If Supplied By Facility): CTDIvol = ( 44.99 ) mGy, DLP = ( 1547.23 ) mGycm TECHNIQUE: Transaxial CT imaging of the brain was performed pre and post contrast administration. The examination was performed with intravenous administration of 50 IV Isovue 370. Individualized dose optimization techniques were used for this CT. COMPARISON: None. FINDINGS: Normal soft tissue structures. Normal calvarium. There is temporomandibular arthrosis. There is mild cerebral atrophy with widening of the extra-axial spaces and ventricular dilatation. There are areas of decreased attenuation within the white matter tracts of the supratentorial brain, consistent with microvascular disease changes. Normal basal ganglia and thalami. Normal brainstem. Normal cerebellum. There is no intracranial hemorrhage. There are no findings of an acute ischemic infarction. Normal visualized paranasal sinuses. There is no mass or abnormal enhancement. CT/Brain/Head W/WO Contrast IMPRESSION: Chronic involutional changes of the brain. Electronically Signed: Sage Sanford MD at 23:57 EDT , Service support ,
[2019-05-14 14:41] LABS: CREATININE FINGERSTICK 0.9 mg/dL (0.55-1.02)
== END ==
LOC: CT 14:26
PROVIDERS: Family Provider Family Medicine; PCP Family Medicine; Referring Provider Family Medicine; Visit Provider Family Medicine
DX: R51 Headache (principal)
CPT/HCPCS: 70470; Q9967

== ENCOUNTER → 2019-05-18 13:43 | Outpatient (CLI) | payer MEDICARE, SELFPAY ==
[2019-04-29 15:05] VITALS: BMI 37.8
--- NOTE | 2019-05-18 13:45 | ECHOD_ITS ---
Reason For Study: DYSPNEA/SOB Procedure This was a 2D Doppler, Color Flow transthoracic echocardiogram. The study was technically difficult. Due to body habitus and chest deformity. Exam performed in department. Left Ventricle Normal LV size. Left ventricular systolic function is normal. The estimated ejection fraction is 55 %. There is evidence of diastolic dysfunction. No regional wall motion abnormalities noted. Right Ventricle Normal RV size. Normal systolic function. Atria The left atrium is mildly enlarged. Normal right atrium. No doppler evidence for ASD. Mitral Valve There is mild mitral annular calcification. Mild diffuse mitral valve thickening. Mild-Moderate (1- 2+) eccentric mitral valve insufficiency. Tricuspid Valve Normal tricuspid valve. Trivial tricuspid valve insufficiency. Right ventricular systolic pressure estimated to be 28 mmHg. Aortic Valve Normal aortic valve. Mild focal aortic valve thickening. Mild focal aortic valve calcification. Pulmonic Valve The pulmonic valve is not well visualized. Great Vessels Normal sized aortic root. Pericardium/Pleural No pericardial effusion. MMode/2D Measurements & Calculations LVIDd: 4.0 cm IVSd: 1.0 cm Ao root diam: 2.7 cm LVIDs: 2.9 cm LVPWd: 1.0 cm LA dimension: 3.5 cm RVDd: 2.6 cm FS: 27.7 % LAV(MOD-bp): 69.4 ml LA A4 area: 22.2 cm2 RA A4 area: 15.2 cm2 LAV(MOD-bp) Indexed: 37.7 ml/m2 LAV(MOD-sp2): 62.9 ml LAV(MOD-sp4): 64.7 ml Time Measurements MV dec time: 0.22 sec Doppler Measurements & Calculations MV E max gautam: 97.2 cm/sec Lat Peak E' Gautam: 8.2 cm/sec Med Peak E' Gautam: 5.7 cm/sec MV A max gautam: 124.7 cm/sec E/E' lat: 11.9 E/E' med: 17.1 MV E/A: 0.78 Ao V2 max: 141.3 cm/sec LV V1 max: 103.2 cm/sec PA V2 max: 96.8 cm/sec Ao max P.0 mmHg LV V1 max P.3 mmHg TR max gautam: 251.3 cm/sec TR max P.3 mmHg Interpretation Summary The study was technically difficult. Left ventricular systolic function is normal. The estimated ejection fraction is 55 %. The left atrium is mildly enlarged. There is mild mitral annular calcification. Mild diffuse mitral valve thickening. Mild-Moderate (1-2+) eccentric mitral valve insufficiency. Trivial tricuspid valve insufficiency. Mild focal aortic valve thickening. Mild focal aortic valve calcification. Right ventricular systolic pressure estimated to be 28 mmHg. There is evidence of diastolic dysfunction. Ordering Physician: Jaquan Yarbrough Referring Physician: Jaquan Hays Performed By: Hermila Reveles RDCS, RVT
== END ==
LOC: CVS 13:45
PROVIDERS: Family Provider Family Medicine; PCP Family Medicine; Referring Provider Nurse Practitioner Family; Visit Provider Nurse Practitioner Family
DX: I42.8 Other cardiomyopathies (principal); R06.09 Other forms of dyspnea
CPT/HCPCS: 93306

== ENCOUNTER → 2019-06-18 15:47 | Outpatient (CLI) | payer MEDICARE, SELFPAY ==
[2019-04-29 15:05] VITALS: BMI 37.8
[2019-06-18 17:34] LABS: Absolute Lymphocyte Count 1.18 X10^3/uL (0.83-4.51); Absolute Neutrophil Count 5.4 X10^3/uL (2.0-7.7); Basophil# 0.04 X10^3/uL; Basophil% 0.5 % (0-1); Eosinophil# 0.13 X10^3/uL; Eosinophils% 1.7 % (0-5); Hematocrit 42.9 % (37-47); Hemoglobin 13.4 g/dL (12.0-15.0); Lymphocyte # 1.18 X10^3/ul (4.0); Lymphocyte % 15.8 % (19-41); Mean Corp Hgb Conc 31.2 g/dL (32-36); Mean Corpuscular Hgb 27.9 pg (27.0-32.0); Mean Corpuscular Volume 89.2 fL (81-99); Mean Platelet Vol. 10.7 fl (6.2-12.0); Monocyte# 0.66 X10^3/uL; Monocyte% 8.8 % (0-10); NRBC Flagged by Analyzer 0 % (0-5); Neutrophil # 5.42 X10^3/uL (2.7-7.7); Neutrophil % 72.5 % (47-70); Platelet Count 201 K/mm3 (150-450); RBC Distribution Width SD 45.6 fl (35.1-43.9); Red Blood Count 4.81 M/mm3 (4.2-5.4); White Blood Count 7.5 K/mm3 (4.4-11.0)
[2019-06-18 18:06] LABS: PTHIN 121.3 pg/mL (18.4-80.1)
[2019-06-18 18:11] LABS: ALB/GLOB Ratio 0.8 RATIO (0.9-2.4); AST(SGOT) 19 U/L (15-37); Alanine Aminotransfer ALT/SGPT 16 U/L (13-56); Albumin, Serum 3.4 g/dL (3.2-5.0); Alkaline Phosphatase 88 U/L (45-117); Anion Gap 7 (5-15); BUN 12 mg/dL (7-18); BUN/Creat Ratio 16.8 RATIO (10-20); Calcium,Total 9.4 mg/dL (8.5-10.1); Chloride 103 mmol/L (98-107); Creatinine, Serum 0.71 mg/dL (0.55-1.02); EST Glomerular Filtration Rate 84 mL/min (>60); Est Glom Filt Rate - Afr Amer 101 mL/min (>60); Globulin 4.4 g/dL (2.2-4.2); Glucose 91 mg/dL (74-106); Potassium 4.1 mmol/L (3.5-5.1); Protein, Total 7.8 g/dL (6.4-8.2); Sodium Level 138 mmol/L (136-145); Thyroid Stim Hormone (TSH) 3.01 uIU/mL (0.358-3.74)
== END ==
LOC: MFPLAB 15:48
PROVIDERS: Family Provider Family Medicine; PCP Family Medicine; Referring Provider Family Medicine; Visit Provider Family Medicine
DX: M80.80XA Other osteoporosis with current pathological fracture, unspecified site, initial encounter for fracture (principal)
CPT/HCPCS: 36415; 80053; 82306; 83970; 84443; 85025

== ENCOUNTER → 2019-07-09 13:46 | Outpatient (CLI) | payer MEDICARE, SELFPAY ==
[2019-04-29 15:05] VITALS: BMI 37.8
--- NOTE | 2019-07-09 13:50 | CT_ITS ---
STUDY: CT ABDOMEN AND PELVIS WITH CONTRAST REASON FOR EXAM: Female, 78 years old. Chronic constipation. History of left breast cancer with lumpectomy. History of uterine cancer with hysterectomy. RADIATION DOSAGE (If Supplied By Facility): CTDIvol = ( 18.04 ) mGy, DLP = ( 1079.55 ) mGycm TECHNIQUE: Transaxial images were obtained from the dome of the diaphragm to the symphysis pubis with oral contrast. IV/Oral Isovue 370 100CC was administered. Sagittal and coronal images were reconstructed. Individualized dose optimization techniques were used for this CT. COMPARISON: Prior abdomen and pelvic CT exam of September 06, 2017 FINDINGS: Stable chronic bibasilar lung changes. Status post left mastectomy. Stable hypodensity of the right liver. Nondistended gallbladder. Probable cholelithiasis. Normal spleen. Generalized atrophy of the pancreas. Stable 7 mm hypodense lesion of the pancreatic tail. Normal right adrenal gland. Stable minimal hypodensity of the left adrenal gland. Normal right kidney. Normal left kidney. Normal visualized stomach. Normal small intestine. Stool filled colon. Otherwise mild diverticulosis without evidence of acute diverticulitis. Negative for mass lesion of the colon. The appendix is visualized and appears normal. There is diffuse atherosclerotic calcification of the abdominal aorta, without a demonstrated aneurysm. Normal inferior vena cava. Normal retroperitoneum. Nondistended urinary bladder. Status post hysterectomy with no pelvic mass or free fluid of the pelvis. Normal abdominal wall. There are diffuse degenerative changes of the visualized lumbar spine with a levoscoliosis. Orthopedic hardware in the proximal right femur secondary to repair of fracture deformity. Stable subcentimeter lytic lesion of the right 12th rib probably related to prior fracture deformity. CT/Abdomen/Pelvis WITH Contrast IMPRESSION: No acute bowel related findings. Negative for evidence of obstruction, perforation or inflammatory bowel changes. Diverticulosis of the distal colon is minimal with no evidence of acute diverticulitis. Negative for bowel stenosis or mass density. A normal appendix is identified. Status post hysterectomy with no residual pelvic mass, pelvic or abdominal adenopathy. Stable small hypodensity of the right liver. Nondistended gallbladder. Probable cholelithiasis. Generalized atrophy of the pancreas with a stable 7 mm hypodensity of the pancreatic tail. Stable minimal hypodensity of the left adrenal gland. Mild atherosclerotic changes of the aorta. Negative for abdominal or pelvic adenopathy. Stable benign bone findings as described above. Electronically Signed: Dana Turcios MD at 20:08 EST , Service support ,
== END ==
LOC: CT 13:47
PROVIDERS: Family Provider Family Medicine; PCP Family Medicine; Referring Provider Family Medicine; Visit Provider Family Medicine
DX: K59.09 Other constipation (principal)
CPT/HCPCS: 74177; Q9967

== ENCOUNTER 2019-08-28 17:57 | Emergency (ER) | payer MEDICARE, SELFPAY ==
[2019-04-29 15:05] VITALS: BMI 37.8
[2019-08-28 17:59] VITALS: BP 167/86; PULSE 100; RESP 18; TEMP 37.4; O2SAT 97; BMI 38.5
[2019-08-28 19:20] VITALS: RESP 16
--- NOTE | 2019-08-28 19:55 | ED.VISSUMM ---
- ER Visit Summary Date of Service: 08/28/19 Chief Complaint: Rash History of Present Illness: The patient is a 79 F who presents with redness to her right breast that has been getting progressively worse over the last week. Patient has been using nystatin underneath her right breast. Patient states this is not been improving. Patient states the redness is gotten worse. Patient denies any fevers or chills. Patient describes her pain as burning. Patient also admits to some mild redness in her left lower leg. Patient has a history of lymphedema in her lower legs. Patient admits to some drainage from her left leg. Physical Examination: Vital signs are stable. Patient is afebrile. Patient is in no acute distress. Oral mucosa is pink and moist. Neck is supple. Trachea is midline. There is no JVD. Heart was regular rate and rhythm. Lungs are clear and equal bilateral. Abdomen is soft. Bowel sounds are normal. There is no tenderness. Cranial nerves II through XII are intact. There are no focal motor or sensory deficits noted. Skin is warm and dry. There is dark red erythema under the right breast and right chest area. There is some surrounding employment director erythema over the breast and lower chest wall. There is some warmth to this area. There is no discharge or drainage. There is 3+ edema of the lower extremities bilaterally. There is some mild redness over the left lower leg. There is some mild serous drainage noted. Patient has dressings in place. Test Results: CBC and basic metabolic profile were within normal limits. BNP was normal at 97.8. Emergency Department Course and Treatment: Patient was given a dose of Ancef here. Patient was given a prescription for Keflex. Patient was also instructed to continue using the nystatin cream the right breast fold. Patient and her daughter were also instructed that they may switch to Lotrimin if they do not think the nystatin cream is working. Patient was instructed to follow-up with her primary care physician in 5 to 7 days. Patient and her daughter understood and were agreeable with the plan. All questions were answered. Disposition: Discharge home Impression: 1. Cellulitis right breast 2. Cellulitis left leg 3. Fungal dermatitis This note was generated with [employer] software. It may contain incorrect words, spelling, and punctuation that were not noted in review of the chart prior to signing ED Disposition - Plan for ED Patient: Disposition: Home or Assisted Living Diagnosis: Cellulitis of right breast, Left leg cellulitis, Fungal dermatitis Instructions: Cellulitis Prescriptions: Cephalexin [Keflex] 500 mg PO Q6 #40 cap Prescription Printed Referrals: Jason Benitez MD [Primary Care Provider] - 5-7 Days
[2019-08-28 20:38] LABS: Basophil# 0.03 X10^3/uL; Basophil% 0.4 % (0-1); Eosinophil# 0.12 X10^3/uL; Eosinophils% 1.5 % (0-5); Hematocrit 38.8 % (37-47); Hemoglobin 12.3 g/dL (12.0-15.0); Lymphocyte % 12.4 % (19-41); Mean Corp Hgb Conc 31.7 g/dL (32-36); Mean Corpuscular Hgb 28.4 pg (27.0-32.0); Mean Corpuscular Volume 89.6 fL (81-99); Mean Platelet Vol. 10.5 fl (6.2-12.0); Monocyte# 0.93 X10^3/uL; Monocyte% 11.5 % (0-10); NRBC Flagged by Analyzer 0 % (0-5); Neutrophil # 5.98 X10^3/uL (2.7-7.7); Neutrophil % 73.8 % (47-70); Platelet Count 189 K/mm3 (150-450); RBC Distribution Width CV 13.4 % (11.6-14.6); RBC Distribution Width SD 44.1 fl (35.1-43.9); Red Blood Count 4.33 M/mm3 (4.2-5.4); White Blood Count 8.1 K/mm3 (4.4-11.0)
[2019-08-28] MEDS: Cefazolin 1 GM/50 ML BAG IV (20:42)
[2019-08-28 20:53] LABS: Anion Gap 4 (5-15); BUN 12 mg/dL (7-18); BUN/Creat Ratio 16.2 RATIO (10-20); Calcium,Total 9.2 mg/dL (8.5-10.1); Chloride 108 mmol/L (98-107); Creatinine, Serum 0.74 mg/dL (0.55-1.02); EST Glomerular Filtration Rate 80 mL/min (>60); Est Glom Filt Rate - Afr Amer 97 mL/min (>60); Estimated Creatinine Clearance 31.69 ml/min; Glucose 97 mg/dL (74-106); Potassium 3.5 mmol/L (3.5-5.1); Sodium Level 140 mmol/L (136-145)
[2019-08-28 21:10] LABS: BNP,B-Type NATRIURETIC PEPTIDE 97.8 pg/mL (0-100)
[2019-08-28 21:45] VITALS: BP 182/77; PULSE 83; RESP 18; TEMP 36.6; O2SAT 95
== END 2019-08-28 22:57 | disposition home or self-care (01) ==
PROVIDERS: Emergency Provider Emergency Medicine; Family Provider Family Medicine; PCP Family Medicine
DX: N61.0 Mastitis without abscess (principal); L03.116 Cellulitis of left lower limb; B36.9 Superficial mycosis, unspecified; I89.0 Lymphedema, not elsewhere classified; E66.9 Obesity, unspecified; M54.2 Cervicalgia; G89.29 Other chronic pain
CPT/HCPCS: 80048; 83880; 85025; 96365; 99283; J7050; A4216

== ENCOUNTER → 2019-09-08 13:51 | Outpatient (CLI) | payer MEDICARE, SELFPAY ==
[2019-04-29 15:05] VITALS: BMI 37.8
[2019-08-28 17:59] VITALS: BMI 38.5
--- NOTE | 2019-09-08 13:57 | US_ITS ---
STUDY: THYROID ULTRASOUND REASON FOR EXAM: Female, 79 years old. HYPERPARATHYROIDISM TECHNIQUE: Ultrasound evaluation of the thyroid was performed with real-time and static cerrato-scale imaging. COMPARISON: None. FINDINGS: RIGHT LOBE: The right lobe of the thyroid gland measures 3.3 x 1.9 x 1.5 cm. There is a homogeneous echotexture. There are no demonstrated solid, cystic or complex lesions. LEFT LOBE: The left lobe of the thyroid gland measures 3.7 x 1.6 x 1.8 cm. There is a homogeneous echotexture. There is a complex 9 x 8 x 9 mm well defined upper pole nodule. There is a cystic 5 x 5 x 3 cm lower pole nodule. There is a 5 x 5 x 3 mm complex upper pole nodule. ISTHMUS: The isthmus measures 0.3 millimeter. US/Thyroid IMPRESSION: Normal homogeneous right thyroid. Homogeneous left thyroid with 3 cystic or complex (cystic and solid) nodules as described above. Electronically Signed: Dana Turcios MD at 16:25 EST , Service support ,
== END ==
LOC: US 13:53
PROVIDERS: Family Provider Family Medicine; PCP Family Medicine; Referring Provider Family Medicine; Visit Provider Family Medicine
DX: E21.3 Hyperparathyroidism, unspecified (principal)
CPT/HCPCS: 76536

== ENCOUNTER → 2020-02-16 16:30 | Outpatient (CLI) | payer MEDICARE, SELFPAY ==
[2020-01-28 15:48] VITALS: BMI 38.3
[2020-02-16 18:04] LABS: Absolute Lymphocyte Count 1.11 X10^3/uL (0.83-4.51); Absolute Neutrophil Count 5.4 X10^3/uL (2.0-7.7); Basophil# 0.03 X10^3/uL; Basophil% 0.4 % (0-1); Eosinophil# 0.11 X10^3/uL; Eosinophils% 1.5 % (0-5); Hematocrit 41.9 % (37-47); Lymphocyte # 1.11 X10^3/ul (4.0); Lymphocyte % 15.1 % (19-41); Mean Corpuscular Hgb 28.3 pg (27.0-32.0); Mean Corpuscular Volume 91.3 fL (81-99); Mean Platelet Vol. 10.9 fl (6.2-12.0); Monocyte% 9.5 % (0-10); NRBC Flagged by Analyzer 0 % (0-5); Neutrophil # 5.36 X10^3/uL (2.7-7.7); Neutrophil % 73.2 % (47-70); Platelet Count 204 K/mm3 (150-450); RBC Distribution Width CV 13.9 % (11.6-14.6); RBC Distribution Width SD 46.1 fl (35.1-43.9); Red Blood Count 4.59 M/mm3 (4.2-5.4); White Blood Count 7.3 K/mm3 (4.4-11.0)
[2020-02-16 19:06] LABS: BUN 15 mg/dL (7-18); Glucose 90 mg/dL (74-106)
[2020-02-16 19:07] LABS: ALB/GLOB Ratio 0.8 RATIO (0.9-2.4); AST(SGOT) 18 U/L (15-37); Alanine Aminotransfer ALT/SGPT 17 U/L (13-56); Albumin, Serum 3.4 g/dL (3.2-5.0); Alkaline Phosphatase 97 U/L (45-117); Calcium,Total 9.4 mg/dL (8.5-10.1); Creatinine, Serum 0.76 mg/dL (0.55-1.02); Globulin 4.4 g/dL (2.2-4.2); Magnesium 2.3 mg/dL (1.6-2.6); Protein, Total 7.8 g/dL (6.4-8.2); Sodium Level 139 mmol/L (136-145)
[2020-02-16 19:08] LABS: Anion Gap 8 (5-15); Chloride 105 mmol/L (98-107); Potassium 4.4 mmol/L (3.5-5.1)
[2020-02-22 15:09] LABS: BUN/Creat Ratio 19.8 RATIO (10-20); EST Glomerular Filtration Rate 78 mL/min (>60); Est Glom Filt Rate - Afr Amer 94 mL/min (>60)
== END ==
LOC: MTLAB 16:32
PROVIDERS: PCP Family Medicine; Referring Provider Family Medicine; Visit Provider Family Medicine
DX: I27.20 Pulmonary hypertension, unspecified (principal); M79.89 Other specified soft tissue disorders
CPT/HCPCS: 36415; 80053; 83735; 85025

== ENCOUNTER → 2020-02-19 14:58 | Outpatient (CLI) | payer MEDICARE, SELFPAY ==
[2020-01-28 15:48] VITALS: BMI 38.3
[2020-02-19 17:42] LABS: Thyroid Stim Hormone (TSH) 2.72 uIU/mL (0.358-3.74)
== END ==
LOC: MTLAB 15:00
PROVIDERS: PCP Family Medicine; Referring Provider Family Medicine; Visit Provider Family Medicine
DX: I25.5 Ischemic cardiomyopathy (principal); E04.2 Nontoxic multinodular goiter
CPT/HCPCS: 36415; 84443

== ENCOUNTER → 2020-03-21 14:10 | Outpatient (CLI) | payer MEDICARE, SELFPAY ==
[2020-03-21 13:52] VITALS: BMI 36.7
[2020-03-21 18:25] LABS: Cholesterol 189 mg/dL (200); High Density Lipoprotein 69 mg/dL; Triglycerides 112 mg/dL; Very Low Density Lipoprotein 22 mg/dL (5-40)
== END ==
PROVIDERS: PCP Family Medicine; Referring Provider Family Medicine; Visit Provider Family Medicine
DX: I10 Essential (primary) hypertension (principal); Z13.220 Encounter for screening for lipoid disorders
CPT/HCPCS: 36415; 80061

== ENCOUNTER 2020-03-23 13:00 | Outpatient (RCR) | payer MEDICARE, SELFPAY ==
[2020-01-28 15:48] VITALS: BMI 38.3
[2020-03-16 13:28] VITALS: BP 178/70; PULSE 77; RESP 18; TEMP 35.5; BMI 36.7
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
[2020-03-21 13:52] VITALS: BP 168/70; PULSE 82; RESP 16; TEMP 36.2; BMI 36.7
[2020-03-23 13:05] VITALS: BP 149/74; PULSE 84; RESP 16; TEMP 36.3; BMI 36.7
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
== END 2020-03-25 23:59 ==
LOC: WC 13:00
PROVIDERS: PCP Family Medicine; Referring Provider Podiatrist; Visit Provider Podiatrist
DX: I87.2 Venous insufficiency (chronic) (peripheral) (principal); I89.0 Lymphedema, not elsewhere classified; R60.0 Localized edema; M19.90 Unspecified osteoarthritis, unspecified site; I10 Essential (primary) hypertension; I27.20 Pulmonary hypertension, unspecified; E78.2 Mixed hyperlipidemia; E66.01 Morbid (severe) obesity due to excess calories; Z68.36 Body mass index [BMI] 36.0-36.9, adult; K21.9 Gastro-esophageal reflux disease without esophagitis; L03.116 Cellulitis of left lower limb; Z91.19 Patient's noncompliance with other medical treatment and regimen
CPT/HCPCS: 29580; 99213; G0463

== ENCOUNTER 2020-03-31 08:48 | Outpatient (RCR) | payer MEDICARE, SELFPAY ==
[2020-03-31 14:35] VITALS: BP 186/74; PULSE 81; RESP 24; TEMP 36.8; BMI 36.7
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
== END 2020-04-01 10:09 | disposition home or self-care (01) ==
LOC: WC 08:48
PROVIDERS: PCP Family Medicine; Visit Provider Nurse Practitioner Family
DX: I87.2 Venous insufficiency (chronic) (peripheral) (principal); I10 Essential (primary) hypertension; K21.9 Gastro-esophageal reflux disease without esophagitis; I42.8 Other cardiomyopathies; I27.20 Pulmonary hypertension, unspecified; M19.90 Unspecified osteoarthritis, unspecified site; E78.5 Hyperlipidemia, unspecified; E66.01 Morbid (severe) obesity due to excess calories; Z91.19 Patient's noncompliance with other medical treatment and regimen; R60.0 Localized edema
CPT/HCPCS: 99213; G0463

== ENCOUNTER 2020-05-27 14:30 | Outpatient (RCR) | payer MEDICARE, SELFPAY ==
[2020-01-28 15:48] VITALS: BMI 38.3
--- NOTE | 2020-02-29 08:50 | HP.OTEVAL ---
Patient's Visit Information CARLO KOROMA is a 79 year old F, referred to Occupational Therapy by Dr. Jason Benitez MD, with a diagnosis of LE lymphedema. Date of Evaluation: 02/23/20 Occupational Therapist: Amy Gonzalez, OTR/L, CHT - Subjective This 79 year old female was seen for OT eval with dx of LE lymphedema. Pt states she has had difficulty with LE swelling since 2016. pt states she has been in and out of wound center at times but does not currently go. left LE is seeping and right does not. pt is not able to wrap on her own. pt does have a compression pump for lymphedema but has not used it in at least a year. pt states she does have velcro closure compression device but has not used them. pt would like to know what she can do at this time to mtg her swelling. pt states she sits in chair with legs up and sleeps in chair. - Pain BLE 3 - Lymphedema (Circumferential Measure) Mid-foot: R/L 22/23cm Ankle: R/L 27/27cm Lower calf: R/L 44/ 48cm Largest calf: R/L 52/60cm Below knee: R/L 42 43cm Lower Exremity Comments: pt demo with skin changes from prolonged edema in LE. - Lower Limb Functional Index Lower Extremity Functional Score: 15 - Goals Demonstrate a 20% reduction in edema by d/c: Yes Demonstrate adequate knowledge of self-bangaging by 1st week: Yes Demonstrate adequate knowledge of self-massage by 2nd week: Yes Demonstrate adequate knowledge skin care/prec by 2nd week: Yes Demonstrate adequate knowledge therapeutic exercises by d/c: Yes Select approp compression garment w/donning/care/wear by d/c: Yes Voice need to replace compression garment every 4-6mo by dc: Yes - Rehabilitation General Assessment: Pt demo with stage 3 lymphedema. pt would benefit from skilled OT services 1x week for 4 weeks to ed. pt on life time mtg of LE lymphedema. Therapist ed. pt on the equipment she has (velcro closure circaide, and compression pump) is something she needs to return to using. Therapist ed. pt on lymph system and need for reclined elevation of LE instead of sitting in straight chair with legs on step stool. Pt demo understanding. Therapist ed. pt on use of short stretch wraps vs circaide (velcro closure) ed. pt that the velcro closure device would be less work intensive as the short stretch wraps need re-wrapped multiple times a day ( and this would be something the pt would not be able to do herself). pt demo understanding. therapist ed. pt on lymph stimulation exercises to perform as she morena. in her comfort level. At this time pt was advised to use compression pump as advised by past dr (30 min 2x a day per family) and cont with circaide wrap and return to clinic 1xweek for 4 weeks to ensure progress is being made with mtg. Rehabilitation Potential: Questionable - Anticipated Interventions Education re Diagnosis, Education re Life-long lymphedema Management, Education re Self-Bandaging Techniques, Education re Skin Care and Precautions, Education re Self Massage Techniques, Education re Correct Donning Tech,Care&Wearing Sched Comp Garments, Caregiver Training, Home Program - Visit Plan Frequency: 1-2x /Week Duration: 4 Weeks TEXT: Thank you for the opportunity to evaluate your patient. For Medicare and Medicare HMO plans, please review the plan of care and approve it. It will need to be FAXED BACK to us at [phone] for Medicare purposes. Please let me know if there are questions or concerns regarding this plan of care. Physician Signature: Date:
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
--- NOTE | 2020-07-22 10:26 | HP.PTDCSUM ---
It has been my pleasure to treat CARLO KOROMA referred by Dr. Jason Benitez MD, with the diagnosis of LEG WEAKNESS,LYPHEDEMA for a total of 7 visit(s). Discharge Date: Please see the following information for a summary of their discharge status. Subjective: Patient wants to hold off therapy . Patient has callaused on foot, Bilateral Lower Extremity Pain Intensity (Out of 10): 8 % Improvement: 50 Objective/Function: POSTURE:MILD FOWARD POSTURE. GAIT: waddle gait slow cadance antalgic gait decrease step length. BALANCE: fair+ with QC. MMT: quads/hams 3+/5,hip flexion 3/5 right ,left 3+/5,ankle 4-/5 Goal 1:: Independant with HEP Goal 2:: Patient to ambualte with QC with improved gait pattern community distance Goal 3:: Patient to decrease leg symptoms by 50% or > to improev function Goal 4:: Patient to increase strength of BLE by 4/5 quads/hams ,and hip 4-/5 to improve gait Goal 5:: Patient to increase LFES score by 5 points or > to improve function Plan: PATIENT WILL CALL TO SCHEDULE 3-4WEEKS 60MIN AND WANTS TO PROGESS TO [facility]ACH[facility]HA D/C IF DOESNT RETURN If there are questions or concerns regarding this patient's physical therapy, please feel free to call me at [phone]. Thank you for the referral of this patient. Sincerely, Tito Cartagena, PT, Cert MDT, OCS
== END 2020-05-27 19:00 | disposition home or self-care (01) ==
LOC: PT 14:30
PROVIDERS: PCP Family Medicine; Referring Provider Family Medicine; Visit Provider Family Medicine
DX: R29.898 Other symptoms and signs involving the musculoskeletal system (principal); I89.0 Lymphedema, not elsewhere classified
CPT/HCPCS: 97110; 97162; 97166

== ENCOUNTER → 2020-07-05 15:49 | Outpatient (CLI) | payer MEDICARE, SELFPAY ==
[2020-07-05 18:05] LABS: Absolute Lymphocyte Count 1.23 X10^3/uL (0.83-4.51); Basophil# 0.04 X10^3/uL; Basophil% 0.7 % (0-1); Eosinophil# 0.19 X10^3/uL; Eosinophils% 3.1 % (0-5); Hematocrit 39.5 % (37-47); Hemoglobin 12.1 g/dL (12.0-15.0); Lymphocyte # 1.23 X10^3/ul (4.0); Lymphocyte % 20.2 % (19-41); Mean Corp Hgb Conc 30.6 g/dL (32-36); Mean Corpuscular Hgb 28.2 pg (27.0-32.0); Mean Corpuscular Volume 92.1 fL (81-99); Monocyte# 0.62 X10^3/uL; Monocyte% 10.2 % (0-10); NRBC Flagged by Analyzer 0 % (0-5); Neutrophil # 3.98 X10^3/uL (2.7-7.7); Neutrophil % 65.5 % (47-70); Platelet Count 197 K/mm3 (150-450); RBC Distribution Width SD 47.2 fl (35.1-43.9); Red Blood Count 4.29 M/mm3 (4.2-5.4); White Blood Count 6.1 K/mm3 (4.4-11.0)
[2020-07-05 18:32] LABS: ALB/GLOB Ratio 0.8 RATIO (0.9-2.4); AST(SGOT) 18 U/L (15-37); Alanine Aminotransfer ALT/SGPT 16 U/L (13-56); Albumin, Serum 3.1 g/dL (3.2-5.0); Alkaline Phosphatase 86 U/L (45-117); Anion Gap 6 (5-15); BUN 18 mg/dL (7-18); BUN/Creat Ratio 23.9 RATIO (10-20); Calcium,Total 8.7 mg/dL (8.5-10.1); Chloride 106 mmol/L (98-107); Creatinine, Serum 0.75 mg/dL (0.55-1.02); EST Glomerular Filtration Rate 78 mL/min (>60); Est Glom Filt Rate - Afr Amer 95 mL/min (>60); Glucose 91 mg/dL (74-106); Magnesium 2.3 mg/dL (1.6-2.6); Potassium 3.6 mmol/L (3.5-5.1); Protein, Total 7.1 g/dL (6.4-8.2); Sodium Level 140 mmol/L (136-145)
[2020-07-05 18:38] LABS: Vitamin D,25 Hydroxy 27.4 ng/mL
[2020-07-06 08:13] LABS: BNP,B-Type NATRIURETIC PEPTIDE 166.1 pg/mL (0-100); PTHIN 80.6 pg/mL (18.4-80.1)
== END ==
LOC: MTLAB 15:51
PROVIDERS: PCP Family Medicine; Referring Provider Family Medicine; Visit Provider Family Medicine
DX: I73.9 Peripheral vascular disease, unspecified (principal); E21.3 Hyperparathyroidism, unspecified; I89.0 Lymphedema, not elsewhere classified; I42.9 Cardiomyopathy, unspecified
CPT/HCPCS: 36415; 80053; 82306; 83735; 83880; 83970; 85025

== ENCOUNTER → 2020-09-02 13:25 | Outpatient (CLI) | payer MEDICARE, SELFPAY ==
[2020-07-29 14:04] VITALS: BMI 36.7
--- NOTE | 2020-09-02 13:30 | US_ITS ---
STUDY: THYROID ULTRASOUND REASON FOR EXAM: Female, 80 years old. GOITER TECHNIQUE: Ultrasound evaluation of the thyroid was performed with real-time and static cerrato-scale imaging. COMPARISON: 09/08/2019 FINDINGS: RIGHT LOBE: The right lobe of the thyroid gland measures 3.3 x 1.9 x 1.1 cm. There is a heterogeneous echotexture. Multiple small (less than 5 mm) (colloid cyst. LEFT LOBE: The left lobe of the thyroid gland measures 3.6 x 2.0 x 1.4 cm. There is a heterogeneous echotexture. Nodule 1: No change in the 9 x 10 x 9 mm mixed cystic and solid hypoechoic wider than tall ill-defined marginated nodule with no echogenic foci (TR 3) in the medial left lobe consistent with an adenoma. Another smaller colloid cyst. ISTHMUS: The isthmus measures 3 mm thick . The regional lymph nodes are normal. US/Thyroid IMPRESSION: No change in thyroiditis with multiple small colloid cysts and a partially cystic adenoma the left lobe. Electronically Signed: Rolando Leiva MD at 17:58 EST Tel , Service support ,
== END ==
PROVIDERS: PCP Family Medicine; Referring Provider Otolaryngology; Visit Provider Otolaryngology
DX: E04.2 Nontoxic multinodular goiter (principal)
CPT/HCPCS: 76536

== ENCOUNTER → 2020-11-22 15:53 | Outpatient (CLI) | payer MEDICARE, SELFPAY ==
[2020-07-29 14:04] VITALS: BMI 36.7
[2020-11-22 17:32] LABS: Absolute Lymphocyte Count 0.73 X10^3/uL (0.83-4.51); Absolute Neutrophil Count 4.6 X10^3/uL (2.0-7.7); Basophil# 0.04 X10^3/uL; Basophil% 0.6 % (0-1); Eosinophil# 0.15 X10^3/uL; Eosinophils% 2.4 % (0-5); Hematocrit 41.6 % (37-47); Hemoglobin 12.8 g/dL (12.0-15.0); Lymphocyte # 0.73 X10^3/ul (4.0); Lymphocyte % 11.8 % (19-41); Mean Corp Hgb Conc 30.8 g/dL (32-36); Mean Corpuscular Hgb 28.3 pg (27.0-32.0); Mean Corpuscular Volume 91.8 fL (81-99); Mean Platelet Vol. 10.5 fl (6.2-12.0); Monocyte# 0.63 X10^3/uL; Monocyte% 10.1 % (0-10); NRBC Flagged by Analyzer 0 % (0-5); Neutrophil # 4.62 X10^3/uL (2.7-7.7); Neutrophil % 74.5 % (47-70); Platelet Count 234 K/mm3 (150-450); RBC Distribution Width CV 13.3 % (11.6-14.6); RBC Distribution Width SD 45.3 fl (35.1-43.9); Red Blood Count 4.53 M/mm3 (4.2-5.4); White Blood Count 6.2 K/mm3 (4.4-11.0)
[2020-11-22 18:13] LABS: Vitamin D,25 Hydroxy 29.2 ng/mL
[2020-11-22 18:17] LABS: Hemoglobin A1c 5.4 % (3.8-5.6)
[2020-11-22 18:22] LABS: ALB/GLOB Ratio 0.7 RATIO (0.9-2.4); AST(SGOT) 16 U/L (15-37); Alanine Aminotransfer ALT/SGPT 17 U/L (13-56); Albumin, Serum 3.2 g/dL (3.2-5.0); Alkaline Phosphatase 81 U/L (45-117); Anion Gap 5 (5-15); BUN 14 mg/dL (7-18); BUN/Creat Ratio 21.1 RATIO (10-20); Calcium,Total 9.5 mg/dL (8.5-10.1); Chloride 104 mmol/L (98-107); Creatinine, Serum 0.66 mg/dL (0.55-1.02); EST Glomerular Filtration Rate 90 mL/min (>60); Est Glom Filt Rate - Afr Amer 109 mL/min (>60); Globulin 4.3 g/dL (2.2-4.2); Glucose 78 mg/dL (74-106); Potassium 4.3 mmol/L (3.5-5.1); Protein, Total 7.5 g/dL (6.4-8.2); Sodium Level 137 mmol/L (136-145); Thyroid Stim Hormone (TSH) 2.48 uIU/mL (0.358-3.74)
[2020-11-23 08:35] LABS: PTHIN 97.9 pg/mL (18.4-80.1)
== END ==
LOC: MFPLAB 16:00
PROVIDERS: PCP Family Medicine; Referring Provider Family Medicine; Visit Provider Family Medicine
DX: E21.3 Hyperparathyroidism, unspecified (principal); E66.01 Morbid (severe) obesity due to excess calories; M06.4 Inflammatory polyarthropathy; Z79.899 Other long term (current) drug therapy
CPT/HCPCS: 36415; 80053; 82306; 83036; 83970; 84443; 85025

== ENCOUNTER → 2021-01-19 12:10 | Outpatient (CLI) | payer MEDICARE, SELFPAY ==
[2020-07-29 14:04] VITALS: BMI 36.7
--- NOTE | 2021-01-19 12:13 | RAD_ITS ---
STUDY: X-RAY CHEST REASON FOR EXAM: Female, 80 years old. Shortness of breath. TECHNIQUE: PA and lateral views of the chest. COMPARISON: 09/05/2017. FINDINGS: There is minimally improved inspiratory effort. There is chronic appearing interstitial coarsening without acute infiltrate or mass. There is no demonstrated pleural abnormality. Stable mild cardiomegaly. Normal mediastinum and tere. Normal visualized pulmonary arteries. There is atherosclerotic tortuosity of the aortic arch and descending thoracic aorta. There are diffuse degenerative changes of the visualized thoracic spine. There is degenerative osteoarthritis of the bilateral shoulders. There is no demonstrated abnormality of the visualized soft tissue structures of the upper abdomen. RAD/Chest PA and Lateral IMPRESSION: Stable cardiomegaly without acute pulmonary disease or major interval change. Electronically Signed: Layo Perez DO at 16:51 EDT Tel [phone], Service support ,
[2021-01-19 14:32] LABS: Bacteria 0 SEEN /hpf (None Seen); Mucous, Urine 0 SEEN /hpf (<or=2+); Red Blood Cells-Urine 0 SEEN /hpf (0-5); White Blood Cells 0 SEEN /hpf (0-5)
[2021-01-19 15:21] LABS: Absolute Lymphocyte Count 0.85 X10^3/uL (0.83-4.51); Absolute Neutrophil Count 4.3 X10^3/uL (2.0-7.7); Basophil# 0.03 X10^3/uL; Basophil% 0.5 % (0-1); Eosinophil# 0.07 X10^3/uL; Eosinophils% 1.2 % (0-5); Hematocrit 41.5 % (37-47); Lymphocyte # 0.85 X10^3/ul (0.83-4.51); Lymphocyte % 14.4 % (19-41); Mean Corp Hgb Conc 31.3 g/dL (32-36); Mean Corpuscular Hgb 28.6 pg (27.0-32.0); Mean Corpuscular Volume 91.2 fL (81-99); Mean Platelet Vol. 11.2 fl (6.2-12.0); Monocyte# 0.58 X10^3/uL; Monocyte% 9.8 % (0-10); NRBC Flagged by Analyzer 0 % (0-5); Neutrophil # 4.34 X10^3/uL (2.7-7.7); Neutrophil % 73.8 % (47-70); Platelet Count 223 K/mm3 (150-450); RBC Distribution Width CV 13.8 % (11.6-14.6); RBC Distribution Width SD 46.7 fl (35.1-43.9); Red Blood Count 4.55 M/mm3 (4.2-5.4); White Blood Count 5.9 K/mm3 (4.4-11.0)
[2021-01-19 15:22] LABS: Color, Urine Straw (Yellow); Glucose, Dipstick Normal (Normal); Ketone-Dipstick 5 mg/dl (Negative); Leukocyte Esterase-Dipstick Negative /ul (Negative); Nitrite-Dipstick Negative (Negative); Occult Blood-Urine 10 /ul (Negative); Protein-Dipstick Negative (Negative); Specific Gravity, Urine 1.005 (1.002-1.030); Urine Bilirubin Dipstick Negative (Negative); Urine Clarity Clear (Clear); Urine Urobilinogen Normal (Normal); Urine pH 6.5 (5.0 - 8.0)
[2021-01-19 15:44] LABS: ALB/GLOB Ratio 0.7 RATIO (0.9-2.4); AST(SGOT) 22 U/L (15-37); Alanine Aminotransfer ALT/SGPT 15 U/L (13-56); Albumin, Serum 3.4 g/dL (3.2-5.0); Alkaline Phosphatase 87 U/L (45-117); Anion Gap 5 (5-15); BUN 10 mg/dL (7-18); BUN/Creat Ratio 13.2 RATIO (10-20); Calcium,Total 9.5 mg/dL (8.5-10.1); Chloride 104 mmol/L (98-107); Creatinine, Serum 0.76 mg/dL (0.55-1.02); EST Glomerular Filtration Rate 78 mL/min (>60); Est Glom Filt Rate - Afr Amer 94 mL/min (>60); Globulin 4.9 g/dL (2.2-4.2); Glucose 86 mg/dL (74-106); Magnesium 2.3 mg/dL (1.6-2.6); Potassium 3.6 mmol/L (3.5-5.1); Protein, Total 8.3 g/dL (6.4-8.2); Sodium Level 138 mmol/L (136-145); Thyroid Stim Hormone (TSH) 2.04 uIU/mL (0.358-3.74)
[2021-01-19 15:46] LABS: Squamous Epithelial Cells - UA 0-5 SEEN /hpf (5-10)
[2021-01-19 15:48] LABS: BNP,B-Type NATRIURETIC PEPTIDE 294.6 pg/mL (0-100)
== END ==
LOC: MTLAB 12:11
PROVIDERS: PCP Family Medicine; Referring Provider Family Medicine; Visit Provider Family Medicine
DX: I25.5 Ischemic cardiomyopathy (principal); I50.30 Unspecified diastolic (congestive) heart failure; R10.9 Unspecified abdominal pain; R06.02 Shortness of breath
CPT/HCPCS: 36415; 71046; 80053; 81001; 83735; 83880; 84443; 85025

== ENCOUNTER → 2021-02-06 09:47 | Outpatient (CLI) | payer MEDICARE, SELFPAY ==
[2020-07-29 14:04] VITALS: BMI 36.7
--- NOTE | 2021-02-06 09:53 | RAD_ITS ---
STUDY: X-RAY - ESOPHAGUS (BARIUM SWALLOW) WITH FLUOROSCOPY REASON FOR EXAM: Female, 80 years old. DYSPHAGIA TECHNIQUE: 18 view(s) of the esophagus were obtained following swallowing of barium. FLUOROSCOPY TIME (if supplied): (37 seconds) minutes/seconds COMPARISON: None. FINDINGS: There is no demonstrated esophageal foreign body. There is no demonstrated stricture or mucosal abnormality. 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 Normal gastroesophageal junction, without a demonstrated hiatal hernia. The patient ingested a 12 mm tablet of barium without any difficulty. There is atherosclerotic calcification of the aortic arch with tortuosity of the descending aorta. Normal visualized pulmonary parenchyma. There are diffuse degenerative changes of the visualized thoracic spine. 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 Electronically Signed: Kain Bradley MD at 11:11 EDT , Service support ,
--- NOTE | 2021-02-06 13:44 | ECHOD_ITS ---
Reason For Study: Unspecified Diastolic CHF Procedure This was a 2D Doppler, Color Flow transthoracic echocardiogram. Technically difficult study due to body habitus and chest deformity. Unable to obtain IV access after 3 attempts to utilize Definity. Exam performed in department. Left Ventricle Normal LV size. Left ventricular systolic function is lower limits of normal. The estimated ejection fraction is 50 %. Stage 1 diastolic dysfunction. No regional wall motion abnormalities noted. Right Ventricle Normal RV size. Normal systolic function. Atria Normal left atrium. Normal right atrium. Lipomatous hypertrophy of the atrial septum. Mitral Valve Normal mitral valve. Mild (1+) mitral valve insufficiency. Tricuspid Valve Normal tricuspid valve. Mild tricuspid valve insufficiency. Pulmonary artery systolic pressure is 31 mmHg. Pulmonic Valve Normal pulmonic valve. Great Vessels Normal aortic root. The pulmonary artery is normal size. Normal inferior vena cava. Pericardium/Pleural No pericardial effusion. MMode/2D Measurements & Calculations LVIDd: 5.1 cm IVSd: 1.3 cm LA dimension: 3.7 cm LVIDs: 3.3 cm LVPWd: 1.0 cm FS: 34.6 % LAV(MOD-bp): 61.3 ml LA A4 area: 22.3 cm2 RA A4 area: 12.7 cm2 LAV(MOD-bp) Indexed: 33.7 ml/m2 LAV(MOD-sp2): 49.6 ml LAV(MOD-sp4): 65.4 ml Time Measurements MV dec time: 0.28 sec Doppler Measurements & Calculations MV E max gautam: 101.8 cm/sec Lat Peak E' Gautam: 8.6 cm/sec Med Peak E' Gautam: 8.0 cm/sec MV A max gautam: 130.6 cm/sec E/E' lat: 11.8 E/E' med: 12.7 MV E/A: 0.78 MV V2 max: 159.9 cm/sec MV P1/2t max gautam: 128.1 cm/sec Ao V2 max: 146.7 cm/sec MV max P.2 mmHg MV P1/2t: 78.5 msec Ao max P.6 mmHg MV V2 mean: 89.0 cm/sec MV mean P.7 mmHg MV dec slope: 478.1 cm/sec2 MV V2 VTI: 33.1 cm MVA(P1/2t): 2.8 cm2 LV V1 max: 108.0 cm/sec PA V2 max: 102.7 cm/sec TR max gautam: 254.0 cm/sec LV V1 max P.7 mmHg TR max P.9 mmHg ECHO/Echo Complete Interpretation Summary Normal LV size. Left ventricular systolic function is lower limits of normal. The estimated ejection fraction is 50 %. Stage 1 diastolic dysfunction. Mild tricuspid valve insufficiency. Pulmonary artery systolic pressure is 31 mmHg. Ordering Physician: Jason Benitez Referring Physician: Jason Benitez Performed By: Amado Hernandez RCS
== END ==
LOC: RAD 09:48
PROVIDERS: PCP Family Medicine; Referring Provider Family Medicine; Visit Provider Family Medicine
DX: R13.10 Dysphagia, unspecified (principal); I50.30 Unspecified diastolic (congestive) heart failure; R06.02 Shortness of breath
CPT/HCPCS: 74221; 93306

== ENCOUNTER 2021-02-17 14:37 | Emergency (ER) | payer MEDICARE, SELFPAY ==
[2020-07-29 14:04] VITALS: BMI 36.7
[2021-02-17 14:38] VITALS: BP 153/93; PULSE 88; RESP 16; TEMP 36.2; O2SAT 99; BMI 38.3
--- NOTE | 2021-02-17 15:04 | CT_ITS ---
STUDY: CT CERVICAL SPINE WITHOUT CONTRAST REASON FOR EXAM: Female, 80 years old. Injury/Pain RADIATION DOSAGE (If Supplied By Facility): CTDIvol = ( 28.72 ) mGy, DLP = ( 625.78 ) mGycm TECHNIQUE: High resolution transaxial imaging was performed without contrast material. Sagittal and coronal images were reconstructed. Individualized dose optimization techniques were used for this CT. COMPARISON: 03/24/2019 FINDINGS: Normal craniovertebral junction. Normal anterior atlantoaxial articulation. Normal odontoid process. Normal cervical lordosis. Posterior fusion defect of the C1 vertebra in the midline into the left of midline involving the lamina. No change in the chronic angulated ununited type II dens fracture. C2-3: Moderate right facet hypertrophy produces mild right neural foraminal stenosis. No central spinal stenosis. C3-4: Moderate right facet hypertrophy produces mild right neural foraminal stenosis. Mild broad disc osteophyte complex produces mild spinal stenosis. C4-5: Mild broad disc osteophyte complex with ankylosis of the disc space produces mild spinal stenosis. Mild left facet hypertrophy with ankylosis of facet joint. C5-6: Mild broad disc osteophyte complex produces mild spinal stenosis and mild bilateral neural foraminal stenosis. C6-7: Mild broad disc osteophyte complex produces mild spinal stenosis but no neural foraminal stenosis. C7-T1: Normal endplates. Normal disc height and morphology. Normal central canal and intervertebral neuroforamina. Normal visualized soft tissue structures. CT/Spine Cervical without Contras IMPRESSION: No acute fracture or subluxation. 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 Electronically Signed: Rolando Leiva MD at 15:47 EDT Tel , Service support ,
--- NOTE | 2021-02-17 15:04 | CT_ITS ---
STUDY: CT FACIAL BONES WITHOUT CONTRAST REASON FOR EXAM: Female, 80 years old. injury to face RADIATION DOSAGE (If Supplied By Facility): CTDIvol = ( 29.38 ) mGy, DLP = ( 532.76 ) mGycm TECHNIQUE: The patient was scanned in a multi detector CT scanner. Sagittal and coronal images were reconstructed. Individualized dose optimization techniques were used for this CT. COMPARISON: None. FINDINGS: Normal soft tissue structures. Acute fracture of the floor of the left orbit depressed approximately 4 mm with herniation of intraorbital fat into the roof of the orbit but no entrapment of the inferior rectus muscle. Associated fractures of the medial and anterior wall of the left maxillary sinus with hemorrhage within the sinus. Normal nasal bones and anterior nasal spine. Normal visualized paranasal sinuses. CT/Sinus/Facial Bone IMPRESSION: Acute fractures of left orbital floor and the medial and anterior modi of the left maxillary sinus with hemorrhage within the sinus. Electronically Signed: Rolando Leiva MD at 15:50 EDT Tel , Service support ,
--- NOTE | 2021-02-17 15:20 | CT_ITS ---
STUDY: CT BRAIN WITHOUT CONTRAST REASON FOR EXAM: Female, 80 years old. Injury/Pain RADIATION DOSAGE (If Supplied By Facility): CTDIvol = ( 44.99 ) mGy, DLP = ( 779.24 ) mGycm TECHNIQUE: Transaxial CT imaging of the brain was performed without administration of intravenous contrast material. Individualized dose optimization techniques were used for this CT. COMPARISON: 05/14/2019 FINDINGS: Normal soft tissue structures. Normal calvarium. There is mild cerebral atrophy with widening of the extra-axial spaces and ventricular dilatation. There are areas of decreased attenuation within the white matter tracts of the supratentorial brain, consistent with microvascular disease changes. Normal basal ganglia and thalami. Normal brainstem. Normal cerebellum. There is no intracranial hemorrhage. There are no findings of an acute ischemic infarction. Normal visualized paranasal sinuses. CT/Brain/Head without Contrast IMPRESSION: Chronic involutional changes of the brain. Electronically Signed: Rolando Leiva MD at 15:42 EDT Tel , Service support ,
[2021-02-17 15:33] LABS: Hematocrit 38.7 % (37-47); Hemoglobin 12.2 g/dL (12.0-15.0); Mean Corp Hgb Conc 31.5 g/dL (32-36); Mean Corpuscular Hgb 28.6 pg (27.0-32.0); Mean Corpuscular Volume 90.6 fL (81-99); Mean Platelet Vol. 9.8 fl (6.2-12.0); Platelet Count 208 K/mm3 (150-450); RBC Distribution Width SD 46.5 fl (35.1-43.9); Red Blood Count 4.27 M/mm3 (4.2-5.4); White Blood Count 6.4 K/mm3 (4.4-11.0)
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
[2021-02-17] MEDS: HYDROcodone Bitartrate/Apap 5/325 Tablet PO (16:27)
== END 2021-02-17 16:28 | disposition home or self-care (01) ==
PROVIDERS: Emergency Provider Emergency Medicine; PCP Family Medicine
DX: S02.32XA Fracture of orbital floor, left side, initial encounter for closed fracture (principal); S02.401A Maxillary fracture, unspecified side, initial encounter for closed fracture; I10 Essential (primary) hypertension; I42.9 Cardiomyopathy, unspecified; K21.9 Gastro-esophageal reflux disease without esophagitis; E55.9 Vitamin D deficiency, unspecified; Z85.42 Personal history of malignant neoplasm of other parts of uterus; Z85.3 Personal history of malignant neoplasm of breast; Z79.899 Other long term (current) drug therapy; W01.0XXA Fall on same level from slipping, tripping and stumbling without subsequent striking against object, initial encounter; Y93.01 Activity, walking, marching and hiking
CPT/HCPCS: 36415; 70450; 70486; 72125; 85027; 99283

== ENCOUNTER 2021-04-16 19:07 | Observation (INO) | payer MEDICARE, SELFPAY ==
[2021-04-16] VITALS (7 sets, daily range): BP systolic 135–173; BP diastolic 55–74; PULSE 77–90; RESP 15–19; TEMP 36.6–36.8; O2SAT 96–98; BMI 39.4; BMI 39.1
--- NOTE | 2021-04-16 19:30 | EKG12_ITS ---
Test Reason : CP Blood Pressure : / mmHG Vent. Rate : 078 BPM Atrial Rate : 078 BPM P-R Int : 194 ms QRS Dur : 092 ms QT Int : 416 ms P-R-T Axes : 035 -07 -38 degrees QTc Int : 474 ms Normal sinus rhythm with sinus arrhythmia Left ventricular hypertrophy with repolarization abnormality Abnormal ECG Confirmed by EMILIE DEAN, ADRIAN ([id number]), deputy editor in chief SANAM BOYKIN ([id number]) on 04/20/2021 10:56:34 AM Referred By: SHERMAN SANDOVAL Confirmed By:ADRIAN PHAN MD
--- NOTE | 2021-04-16 19:50 | RAD_ITS ---
STUDY: X-RAY CHEST REASON FOR EXAM: Female, 80 years old. chest pain TECHNIQUE: Frontal portable view of the chest COMPARISON: 19 Jan 2021 FINDINGS: The lungs are clear and expanded. There is no demonstrated pleural abnormality. The heart is mildly enlarged. Normal mediastinum and tere. Normal visualized pulmonary arteries. Normal visualized aortic arch and descending thoracic aorta. Normal visualized thoracic spine. Normal visualized ribs, clavicles, and shoulders. There is no demonstrated abnormality of the visualized soft tissue structures of the upper abdomen. RAD/Chest 1 View (Portable) IMPRESSION: No acute disease. Electronically Signed: Vamsi Mercado MD at 20:21 EDT Tel , Service support ,
[2021-04-16 20:26] LABS: Absolute Lymphocyte Count 0.94 X10^3/uL (0.83-4.51); Absolute Neutrophil Count 4.3 X10^3/uL (2.0-7.7); Basophil# 0.04 X10^3/uL; Basophil% 0.6 % (0-1); Eosinophil# 0.13 X10^3/uL; Eosinophils% 2.1 % (0-5); Hematocrit 38.4 % (37-47); Hemoglobin 12.1 g/dL (12.0-15.0); Lymphocyte # 0.94 X10^3/ul (0.83-4.51); Mean Corp Hgb Conc 31.5 g/dL (32-36); Mean Corpuscular Hgb 28.5 pg (27.0-32.0); Mean Corpuscular Volume 90.4 fL (81-99); Mean Platelet Vol. 10.5 fl (6.2-12.0); Monocyte# 0.81 X10^3/uL; NRBC Flagged by Analyzer 0 % (0-5); Neutrophil % 68.8 % (47-70); Platelet Count 189 K/mm3 (150-450); RBC Distribution Width CV 14.3 % (11.6-14.6); RBC Distribution Width SD 47.1 fl (35.1-43.9); Red Blood Count 4.25 M/mm3 (4.2-5.4); White Blood Count 6.3 K/mm3 (4.4-11.0)
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
--- NOTE | 2021-04-16 20:50 | ED.RN ---
TROP OF [address] SANDOVAL.
[2021-04-16 20:52] LABS: Anion Gap 5 (5-15); BUN 14 mg/dL (7-18); BUN/Creat Ratio 16.9 RATIO (10-20); Calcium,Total 9.2 mg/dL (8.5-10.1); Chloride 107 mmol/L (98-107); Creatinine, Serum 0.83 mg/dL (0.55-1.02); EST Glomerular Filtration Rate 70 mL/min (>60); Est Glom Filt Rate - Afr Amer 85 mL/min (>60); Estimated Creatinine Clearance 72.97 ml/min; Glucose 95 mg/dL (74-106); Potassium 3.9 mmol/L (3.5-5.1); Sodium Level 142 mmol/L (136-145); Troponin-I HS 197 pg/mL (3.0-54.0)
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
--- NOTE | 2021-04-16 21:51 | NURSING ---
PCU OBS DR MACIEL CELLULITIS, ELEVATED TROP, EXTERTIONAL DYSPNEA, EKG CHANGES
--- NOTE | 2021-04-16 23:04 | EKG12_ITS ---
Test Reason : CP ADMIT Blood Pressure : / mmHG Vent. Rate : 075 BPM Atrial Rate : 075 BPM P-R Int : 186 ms QRS Dur : 094 ms QT Int : 398 ms P-R-T Axes : 030 -08 -21 degrees QTc Int : 444 ms Normal sinus rhythm with sinus arrhythmia Left ventricular hypertrophy with repolarization abnormality Abnormal ECG Confirmed by EMILIE DEAN, ADRIAN ([id number]), digital editor SANAM BOYKIN ([id number]) on 04/18/2021 8:00:33 AM Referred By: DR FRANCISCO Confirmed By:ADRIAN PHAN MD
[2021-04-17] VITALS (9 sets, daily range): BP systolic 148–191; BP diastolic 65–86; PULSE 66–85; RESP 18; TEMP 36.5–36.7; O2SAT 96–97
[2021-04-17 00:06] LABS: Troponin-I HS 218 pg/mL (3.0-54.0)
--- NOTE | 2021-04-17 01:22 | PCS.PANDOC ---
PANDEMIC DOCUMENTATION INITIATED: Date: 04/06/2021 Time: 2300
[2021-04-17 02:24] LABS: Absolute Lymphocyte Count 0.98 X10^3/uL (0.83-4.51); Absolute Neutrophil Count 3.8 X10^3/uL (2.0-7.7); Basophil# 0.03 X10^3/uL; Basophil% 0.5 % (0-1); Eosinophils% 1.8 % (0-5); Hematocrit 35.4 % (37-47); Hemoglobin 11.1 g/dL (12.0-15.0); Lymphocyte # 0.98 X10^3/ul (0.83-4.51); Lymphocyte % 17.5 % (19-41); Mean Corp Hgb Conc 31.4 g/dL (32-36); Mean Corpuscular Hgb 28.5 pg (27.0-32.0); Mean Corpuscular Volume 90.8 fL (81-99); Mean Platelet Vol. 10.6 fl (6.2-12.0); Monocyte# 0.62 X10^3/uL; Monocyte% 11.1 % (0-10); NRBC Flagged by Analyzer 0 % (0-5); Neutrophil # 3.84 X10^3/uL (2.7-7.7); Neutrophil % 68.7 % (47-70); Platelet Count 176 K/mm3 (150-450); RBC Distribution Width CV 14.2 % (11.6-14.6); RBC Distribution Width SD 47.2 fl (35.1-43.9); White Blood Count 5.6 K/mm3 (4.4-11.0)
[2021-04-17 03:10] LABS: Troponin-I HS 232 pg/mL (3.0-54.0)
--- NOTE | 2021-04-17 05:55 | EKG12_ITS ---
Test Reason : CP A.M. EKG Blood Pressure : / mmHG Vent. Rate : 094 BPM Atrial Rate : 094 BPM P-R Int : 174 ms QRS Dur : 088 ms QT Int : 370 ms P-R-T Axes : 043 001 041 degrees QTc Int : 462 ms Normal sinus rhythm Nonspecific ST and T wave abnormality Abnormal ECG When compared with ECG of 16-APR-2021 23:20, MANUAL COMPARISON REQUIRED, DATA IS UNCONFIRMED Confirmed by EMILIE DEAN, ADRIAN ([id number]), digital editor SANAM BOYKIN ([id number]) on 04/18/2021 7:59:20 AM Referred By: RAHEEM Confirmed By:ADRIAN PHAN MD
[2021-04-17] MEDS: Lisinopril 10 MG Tablet PO (05:58)
--- NOTE | 2021-04-17 09:03 | CASEMGMT ---
Insurance review for hospitals In-network with [employer] PPO Insurance if transfer is recommended is as follows: [facility], [place], [facility], [facility], [facility], [facility], [facility]), and . Liyah MONTERON RN CM
[2021-04-17] MEDS: Pantoprazole Sodium 40 MG Tablet PO (09:10)
[2021-04-17] MEDS: Potassium Chloride Oral Tablet 20 MEQ PO (09:10)
[2021-04-17] MEDS: Cholecalciferol (VIT D3) 25 MCG TABLET (1,000 UNITS) 50 MCG PO (09:10)
[2021-04-17] MEDS: Furosemide 40 MG Tablet PO (09:10)
[2021-04-17] MEDS: Carvedilol 3.125 MG TABLET PO (09:11)
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
--- NOTE | 2021-04-17 13:16 | DS.PCM_ITS ---
Providers Date of Admission: 04/16/21 Primary Care Physician: Dr. Jason Benitez MD Consultations 04/16/21 23:04 Consult: Cardiology Routine Consulting Provider: Demetrio Hinds Reason for Consult: Chest pain; sob. Patient request to see his cardiology EMERGENT Consult: No MD Notified: Yes Date Notified: 04/17/21 Time Notified: 07:51 Method of Notification: Text Method of Consult:: In-Person Reason For Visit: CHEST PAIN Diagnosis Discharge Diagnosis (1) Chest pain: Status: Acute Code(s): R07.9 - Chest pain, unspecified Qualifiers: Chest pain type: unspecified Qualified Code(s): R07.9 - Chest pain, unspecified (2) Essential hypertension: Status: Chronic Code(s): I10 - Essential (primary) hypertension (3) Lymphedema of both lower extremities: Status: Chronic Code(s): I89.0 - Lymphedema, not elsewhere classified Medications at Discharge Home Medications cholecalciferol (vitamin D3) 2,000 unit PO DAILY 08/12/17 pantoprazole 40 mg tablet,delayed release 40 mg PO DAILY 07/01/18 Blood Pressure Cuff #1 ea 01/28/20 potassium chloride 20 mEq tablet,extended release(part/cryst) 20 meq PO DAILY PRN #30 tab 01/28/20 furosemide 40 mg tablet 40 mg PO DAILY PRN tab 07/29/20 carvedilol 3.125 mg tablet 3.125 mg PO BID #180 tab 03/24/21 lisinopril 20 mg PO DAILY #30 tab 04/17/21 Hospital Course Operations None Procedures None Summary of Care Provided Minutes Spent on Discharge: 40 Hospital Course: Patient is an 80 y/o female with a PMH as outlined who was admitted via the ED on 04/16/2021 with a complaint of substernal nonradiating chest pain which she described as burning and worsened by exertion and relieved by rest. She also had assisted shortness of breath. She also had bilateral lymphedema for which she had not been able to follow-up at the wound clinic for some time now because she felt sick. Review of systems otherwise negative. Chest x-ray showed no acute cardiopulmonary process and EKG showed new T wave inversions inferior lateral leads. She was not put on aspirin as she has a history of ITP and allergic to aspirin and anticoagulation. Initial high- sensitivity troponin was elevated at 197. Troponin subsequently trended upwards. Cardiology was consulted and initial plan was for stress test but after discussion with cardiology based on her elevated high-sensitivity troponin which further trended upwards, decision was to do a cardiac cath. Patient however adamantly refused a cardiac cath and said she felt like her troponins went up because of the bad experience she had had in the hospital and felt she was very stressed and that was causing her elevated troponin. I counseled patient extensively that the elevated troponin likely indicated that she may be having a heart attack and that it was vital that she had a cardiac cath to evaluate her coronary anatomy. Patient still refused and insisted that it was because of the stress she had endured in the hospital as she had to wait for long periods before staff would attend to her and she was convinced that this was the cause of her elevated troponin. I therefore requested that patient wait to speak to cardiology before making up her mind. Cardiology also discussed with patient about the importance of getting cardiac cath but patient still refused and requested to be discharged. Patient was therefore discharged home on 04/17/2021. Her CYNDIE inhibitor was increased to 20 mg daily and she is to follow-up with her primary care doctor and cardiology. She is follow-up with wound clinic for the lymphedema she has of both lower extremities. Patient was seen and examined prior to discharge. She was very upset as men tioned above. She denied any chest pain, palpitations, dizziness, nausea or vomiting. Review of systems is otherwise negative. Labs and vitals reviewed. Home medications reviewed and reconciled. Physical Exam Const alert, oriented x3 and no apparent distress General Appearance: cooperative and comfortable Orientation / Consciousness: awake Exam Limitations: no limitations HEENT normocephalic, head/scalp atraumatic, hearing grossly normal bilaterally and moist oral mucous membranes Eyes PERRL, EOMs intact bilaterally and conjunctivae normal Neck no lymphadenopathy, supple and no JVD Resp normal respiratory effort, no retractions, no use of accessory muscles and clear to auscultation bilaterally Cardio regular rate, regular rhythm, S1 normal heart sound, S2 normal heart sound and no murmurs GI normal to inspection, nondistended, normoactive bowel sounds, soft to palpation, non-tender and non-distended Extremity full ROM Extremity Narrative: bilateral LE lymphedema Skin no rashes or lesions noted Neuro oriented x3, CN's II-XII intact bilaterally and moves all extremities Sensorium / Orientation: awake Psych affect normal Weight / BMI Weight Weight: 200 lb 6.403 oz Body Mass Index (BMI) 39.1 ABG / Lab / Microbiology Data Result Diagrams: 04/17/21 02:09 04/16/21 20:20 Laboratory: Laboratory Results - last 24 hr 04/16/21 20:20: WBC 6.3, RBC 4.25, Hgb 12.1, Hct 38.4, MCV 90.4, MCH 28.5, MCHC 31.5 L, RDW Std Deviation 47.1 H, RDW Coeff of [place] 14.3, Plt Count 189, MPV 10.5, Immature Gran % (Auto) 0.500, Neut % (Auto) 68.8, Lymph % (Auto) 15.0 L, [place] % (Auto) 13.0 H, Eos % (Auto) 2.1, Baso % (Auto) 0.6, Absolute Neuts (auto) 4.3, Absolute Lymphs (auto) 0.94, Nucleated RBC % 0 04/16/21 20:20: Sodium 142, Potassium 3.9, Chloride 107, Carbon Dioxide 30.0, Anion Gap 5, BUN 14, Creatinine 0.83, Estim Creat Clear Calc 72.97, Est GFR (MDRD) Af Amer 85, Est GFR (MDRD) Non-Af 70, BUN/Creatinine Ratio 16.9, Glucose 95, Calcium 9.2, Troponin I High Sens 197 H* 04/16/21 20:20: B-Natriuretic Peptide 259.0 H 04/16/21 22:17: Troponin I High Sens 218 H* 04/17/21 02:09: WBC 5.6, RBC 3.90 L, Hgb 11.1 L, Hct 35.4 L, MCV 90.8, MCH 28.5, MCHC 31.4 L, RDW Std Deviation 47.2 H, RDW Coeff of [place] 14.2, Plt Count 176, MPV 10.6, Immature Gran % (Auto) 0.400, Neut % (Auto) 68.7, Lymph % (Auto) 17.5 L, [place] % (Auto) 11.1 H, Eos % (Auto) 1.8, Baso % (Auto) 0.5, Absolute Neuts (auto) 3.8, Absolute Lymphs (auto) 0.98, Nucleated RBC % 0 04/17/21 02:09: Troponin I High Sens 232 H* Microbiology: Microbiology 04/16/21 21:32 Mucosa - Nose SARS-CoV-2 Antigen (Rapid) - Final Radiography Diagnostic Testing: Radiology Impression Chest X-Ray 04/16/21 19:50 IMPRESSION: No acute disease. Electronically Signed: Vamsi Mercado MD at 20:21 EDT Tel , Service support , D/C Instructions Discharge Diet: No restrictions Meaningful Use Info Meaningful Use Diagnoses (Choose all that apply): None applicable Discharge Plan Admission Admit Date/Time: 04/16/21 21:48 Primary Reason for Your Visit: chest pain Attending Provider: Laurita Lucas Primary Care Provider: Jason Benitez Consulting Providers: Demetrio Hinds Instructions Patient Instructions: ED Chest Pain, Noncardiac Discharge Orders/Prescriptions Prescriptions: New lisinopril 20 mg tablet 20 mg PO DAILY Qty: 30 RF: 1 Continued pantoprazole [Protonix] 40 mg tablet,delayed release (DR/EC) 40 mg PO DAILY RF: 0 potassium chloride 20 mEq tablet,ER particles/crystals 20 meq PO DAILY PRN (Reason: with lasix) Qty: 30 RF: 0 (DME) Blood Pressure Cuff Qty: 1 RF: 0 furosemide 40 mg tablet 40 mg PO DAILY PRN (Reason: swelling) RF: 0 cholecalciferol (vitamin D3) 1,000 UNIT capsule 2,000 unit PO DAILY RF: 0 carvedilol [Coreg] 3.125 mg tablet 3.125 mg PO BID Qty: 180 RF: 3 Discontinued lisinopril 10 mg tablet 10 mg PO DAILY Qty: 90 RF: 3 Referrals / Follow Up: Jason Benitez MD [Primary Care Provider] - Within 1 Week Kaden Callahan MD [STAFF PHYSICIAN] - In 1 Week Disposition Disposition (needs filled in before D/C Order can be placed): Home, Self Care Charges/Coding Visit Charges OBSV E&M: 38830 Observation care discharge
--- NOTE | 2021-04-17 14:14 | PHA.DC.MR ---
Pharmacy Service has performed discharge medication reconciliation for this patient. The patient's discharge medication list was reviewed for discrepancies and discrepancies were resolved. Home Medications cholecalciferol (vitamin D3) 2,000 unit PO DAILY 08/12/17 pantoprazole 40 mg tablet,delayed release 40 mg PO DAILY 07/01/18 Blood Pressure Cuff #1 ea 01/28/20 potassium chloride 20 mEq tablet,extended release(part/cryst) 20 meq PO DAILY PRN #30 tab 01/28/20 furosemide 40 mg tablet 40 mg PO DAILY PRN tab 07/29/20 carvedilol 3.125 mg tablet 3.125 mg PO BID #180 tab 03/24/21 lisinopril 20 mg PO DAILY #30 tab 04/17/21
== END 2021-04-17 13:33 | disposition home or self-care (01) ==
LOC: ED 21:15 → PCU 04-17 00:02
PROVIDERS: Admitting Provider Hospitalist; Emergency Provider Emergency Medicine; PCP Family Medicine; Visit Provider Student in an Organized Health Care Education/Training Program
DX: R07.89 Other chest pain (principal); I89.0 Lymphedema, not elsewhere classified; I27.20 Pulmonary hypertension, unspecified; I42.8 Other cardiomyopathies; M19.90 Unspecified osteoarthritis, unspecified site; I11.0 Hypertensive heart disease with heart failure; I50.30 Unspecified diastolic (congestive) heart failure; R06.02 Shortness of breath; I25.10 Atherosclerotic heart disease of native coronary artery without angina pectoris; K21.9 Gastro-esophageal reflux disease without esophagitis; E78.2 Mixed hyperlipidemia; Z86.73 Personal history of transient ischemic attack (TIA), and cerebral infarction without residual deficits; E55.9 Vitamin D deficiency, unspecified; Z79.899 Other long term (current) drug therapy
CPT/HCPCS: 71045; 80048; 83880; 84484; 85025; 87426; 93005; 96365; 97162; 97166; 99218; 99285; J7050; A4216; G0378; J0295

== ENCOUNTER 2021-06-26 15:58 | Inpatient (IN) | payer MEDICARE, SELFPAY ==
[2021-06-26 16:00] VITALS: BP 144/88; PULSE 83; RESP 18; TEMP 36.1; O2SAT 100; BMI 84.4
--- NOTE | 2021-06-26 18:15 | EKG12_ITS ---
Test Reason : EDEMA Blood Pressure : / mmHG Vent. Rate : 088 BPM Atrial Rate : 088 BPM P-R Int : 192 ms QRS Dur : 098 ms QT Int : 386 ms P-R-T Axes : 083 -13 051 degrees QTc Int : 467 ms Normal sinus rhythm Left ventricular hypertrophy with repolarization abnormality Abnormal ECG Confirmed by PJ DEAN, AIYANA ([id number]), film editor SANAM BOYKIN ([id number]) on 06/28/2021 8:47:25 AM Referred By: RHIANNA Confirmed By:AIYANA OLIVA MD
--- NOTE | 2021-06-26 18:16 | RAD_ITS ---
STUDY: X-RAY - LEFT TIBIA AND FIBULA REASON FOR EXAM: Female, 80 years old. Crepitus with maggots noted TECHNIQUE: 3 view(s) of the tibia and fibula were obtained. COMPARISON: None. FINDINGS: Normal visualized tibia. Normal visualized fibula. Diffuse cellulitis is noted. RAD/Tibia & Fibula 2 Views IMPRESSION: Diffuse cellulitis without evidence for acute osteomyelitis Electronically Signed: Geo Fernandez MD at 20:37 EDT , Service support ,
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
[2021-06-26 19:49] VITALS: BP 138/50; PULSE 94; RESP 18; TEMP 36.4; TEMP 36.6; O2SAT 100
[2021-06-26 20:00] LABS: Absolute Lymphocyte Count 1.05 X10^3/uL (0.83-4.51); Absolute Neutrophil Count 5.5 X10^3/uL (2.0-7.7); Basophil# 0.03 X10^3/uL; Basophil% 0.4 % (0-1); Eosinophil# 0.13 X10^3/uL; Eosinophils% 1.7 % (0-5); Hematocrit 37.2 % (37-47); Lymphocyte # 1.05 X10^3/ul (0.83-4.51); Lymphocyte % 13.8 % (19-41); Mean Corp Hgb Conc 32.3 g/dL (32-36); Mean Corpuscular Hgb 28.4 pg (27.0-32.0); Mean Corpuscular Volume 87.9 fL (81-99); Monocyte# 0.85 X10^3/uL; Monocyte% 11.2 % (0-10); NRBC Flagged by Analyzer 0 % (0-5); Neutrophil # 5.53 X10^3/uL (2.7-7.7); Neutrophil % 72.5 % (47-70); Platelet Count 262 K/mm3 (150-450); RBC Distribution Width CV 13.6 % (11.6-14.6); RBC Distribution Width SD 43.9 fl (35.1-43.9); Red Blood Count 4.23 M/mm3 (4.2-5.4); White Blood Count 7.6 K/mm3 (4.4-11.0)
[2021-06-26 20:11] LABS: International Normalized Ratio 1.1; Prothrombin Time (Protime)PT. 13.9 SECONDS (11.7-14.9)
[2021-06-26 20:12] LABS: Partial Thromboplast Time 38.8 Seconds (24.1-36.2)
[2021-06-26 20:14] VITALS: BP 161/82; PULSE 81; RESP 18; TEMP 36.6; O2SAT 96
[2021-06-26 20:20] LABS: ALB/GLOB Ratio 0.6 RATIO (0.9-2.4); AST(SGOT) 12 U/L (15-37); Alanine Aminotransfer ALT/SGPT 11 U/L (13-56); Albumin, Serum 2.8 g/dL (3.2-5.0); Alkaline Phosphatase 86 U/L (45-117); Anion Gap 5 (5-15); BUN 21 mg/dL (7-18); BUN/Creat Ratio 31.8 RATIO (10-20); Calcium,Total 9.2 mg/dL (8.5-10.1); Chloride 109 mmol/L (98-107); Creatinine, Serum 0.66 mg/dL (0.55-1.02); EST Glomerular Filtration Rate 91 mL/min (>60); Est Glom Filt Rate - Afr Amer 110 mL/min (>60); Estimated Creatinine Clearance 31.15 ml/min; Globulin 4.6 g/dL (2.2-4.2); Glucose 99 mg/dL (74-106); Potassium 3.7 mmol/L (3.5-5.1); Protein, Total 7.4 g/dL (6.4-8.2); Sodium Level 138 mmol/L (136-145)
[2021-06-26 20:41] LABS: Lactic Acid 0.5 mmol/L (0.4-1.9)
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
--- NOTE | 2021-06-26 21:13 | NURSING ---
pt. hard stick waiting unable to obtain 2nd culture lab called for draw.
[2021-06-26 21:14] VITALS: BP 136/44; PULSE 99; RESP 17; TEMP 36.9; O2SAT 98
[2021-06-26 21:15] VITALS: TEMP 36.9
[2021-06-26 22:06] VITALS: BP 128/56; PULSE 93; RESP 16; TEMP 36.8; O2SAT 96
[2021-06-26 22:13] VITALS: BMI 37.2
--- NOTE | 2021-06-26 22:13 | PCS.PANDOC ---
PANDEMIC DOCUMENTATION INITIATED: Date: 06/26/2021 Time: 8791
[2021-06-26] MEDS: Lisinopril 20 MG Tablet PO (22:55)
[2021-06-26] MEDS: Furosemide 40 MG Tablet PO (22:55)
[2021-06-26] MEDS: Acetaminophen 325 MG Tablet 650 MG PO (23:11)
--- NOTE | 2021-06-27 00:15 | PCM.RX.CS ---
Consult Pharmacy has been consulted to manage selected antiobiotic: Vancomycin Type of Consult: New start Suspected Infection: Skin/Soft tissue Prior Doses of Antibiotics Received/Current Regimen: Medications Vancomycin HCl (Vancomycin) 1,000 mg in 200 mls @ 200 mls/hr IV Q24H VICKI Discontinued Medications Vancomycin HCl 2,000 mg/ (Sodium Chloride) 540 mls @ 250 mls/hr IV X1 ONE Stop: 06/26/21 20:38 Last Admin: 06/26/21 22:53 Dose: 250 mls/hr Labs: Sodium 138 mmol/L (136-145) 06/26/21 19:45 Potassium 3.7 mmol/L (3.5-5.1) 06/26/21 19:45 Chloride 109 mmol/L (98-107) H 06/26/21 19:45 Carbon Dioxide 24.0 mmol/L (21.0-32.0) 06/26/21 19:45 Anion Gap 5 (5-15) 06/26/21 19:45 BUN 21 mg/dL (7-18) H 06/26/21 19:45 Creatinine 0.66 mg/dL (0.55-1.02) 06/26/21 19:45 Est GFR (MDRD) Af Amer 110 mL/min (>60) 06/26/21 19:45 Est GFR (MDRD) Non-Af 91 mL/min (>60) 06/26/21 19:45 BUN/Creatinine Ratio 31.8 RATIO (10-20) H 06/26/21 19:45 Glucose 99 mg/dL (74-106) 06/26/21 19:45 Weight used for dosin.4 kg Estimated Creatinine Clearance: 31 Goal Trough: 10-15 mcg/mL Pharmacy Plan for Drug Dosing: Pharmacy Service will continue to monitor and adjust dosing as required. Follow-Up Labs: Trough Vancomycin Labs to be done on [date and time ordered]: 06/28/21 @0219
[2021-06-27 04:06] VITALS: BP 108/59; PULSE 68; RESP 16; TEMP 36.6; O2SAT 96
--- NOTE | 2021-06-27 07:18 | PN.HOSP_ITS ---
Objective Data Objective Data Vital Signs: Vital Signs Temp Pulse Resp BP Pulse Ox 97.9 F 68 16 108/59 L 96 06/27/21 04:06 06/27/21 04:06 06/27/21 04:06 06/27/21 04:06 06/27/21 04:06 Oxygen Delivery Method Room Air Weight: 86.409 kg Body Mass Index (BMI) 37.2 Intake & Output: Intake and Output for Last 24 Hours 06/25/21 06/26/21 06/27/21 23:59 23:59 23:59 Intake Total 100 / 200 640 / 640 Output Total 200 / 200 1000 / 1000 Balance -100 / 0 -360 / -360 Lab / Micro Data Result Diagrams: 06/26/21 19:45 06/26/21 19:45 Labs: Laboratory Results - last 24 hr 06/26/21 19:45: WBC 7.6, RBC 4.23, Hgb 12.0, Hct 37.2, MCV 87.9, MCH 28.4, MCHC 32.3, RDW Std Deviation 43.9, RDW Coeff of [place] 13.6, Plt Count 262, MPV 10.0, Immature Gran % (Auto) 0.400, Neut % (Auto) 72.5 H, Lymph % (Auto) 13.8 L, [place] % (Auto) 11.2 H, Eos % (Auto) 1.7, Baso % (Auto) 0.4, Absolute Neuts (auto) 5.5, Absolute Lymphs (auto) 1.05, Nucleated RBC % 0 06/26/21 19:45: PT 13.9, INR 1.1, APTT 38.8 H 06/26/21 19:45: Sodium 138, Potassium 3.7, Chloride 109 H, Carbon Dioxide 24.0, Anion Gap 5, BUN 21 H, Creatinine 0.66, Estim Creat Clear Calc 31.15, Est GFR (M DRD) Af Amer 110, Est GFR (MDRD) Non-Af 91, BUN/Creatinine Ratio 31.8 H, Glucose 99, Calcium 9.2, Total Bilirubin 0.40, AST 12 L, ALT 11 L, Alkaline Phosphatase 86, Total Protein 7.4, Albumin 2.8 L, Globulin 4.6 H, Albumin/Globulin Ratio 0.6 L 06/26/21 19:45: Lactic Acid 0.5 Radiography Diagnostic Testing: Radiology Impression Tibia/Fibula X-Ray 06/26/21 18:16 IMPRESSION: Diffuse cellulitis without evidence for acute osteomyelitis Electronically Signed: Geo Fernandez MD at 20:37 EDT , Service support , Physical Exam Narrative GENERAL: cooperative HEENT: Atraumatic; EYES; Anicteric, Normal Conjunctiva NECK; supple, normal thyroid, RESPIRATORY: Diminished to auscultation CARDIOVASCULAR: Regular S1 S2, GI: soft, normoactive bowel sounds, : No Renal angle tenderness; EXTREMITIES: Bilateral pitting edema with erythema MUSCULOSKELETAL: no muscle waisting NEURO: Awake; no lateralizing signs. SKIN: No Rash PSYCH; Flat affect Assessment & Plan Assessment/Plan (1) Cellulitis of right leg without foot: (2) Cellulitis of left leg without foot: (3) (HFpEF) heart failure with preserved ejection fraction: QUALIFIERS: Heart failure chronicity: chronic Qualified Code(s): I50.32 - Chronic diastolic (congestive) heart failure PLAN: 1. Possible bilateral lower extremity cellulitis * This bilateral which typically does not quite cellulitis, however patient did have maggots so I would have low threshold to treat her. Patient received Pipracil/tazobactam and vancomycin emergency room. I will continue with vancomycin. * Check wound culture and adjust antibiotics accordingly. * This may very well be just lymphedematous changes and she may have had the maggots after having had the lymphedema wraps on for very long period of time that may have created a hospitable environment. Typically was seen maggots with necrotic tissue which I do not appreciate at this time. 2. Heart failure with preserved ejection fraction, chronic * Patient does note that she has been gradually putting on weight * Patient's admission weight is incorrect 196 kg. Patient was 90.5 kg on 19 June. * Will increase the patient's Lasix from 40 p.o. daily to 40 IV twice daily * Consult nutrition for further dietary guidance. Patient does not follow fluid restricted diet but may not be consuming an over abundance of fluid. Will have dietary reaffirmed fluid restriction with her. * Continue with CYNDIE inhibitor as well as carvedilol. * EF of 50% from 2D echocardiogram on 02/06/2021. 3. Lymphedema * Chronic but gradually worsening * Will need to address his numerous modalities including diet, medication adjustment, physical measures such as elevating her legs but also more frequent lymphedema wraps. Patient had not had her lymphedema wraps change in about a week. Advised that this be done more frequently as the wraps themselves will lose their elasticity and effectiveness. 4 VTE prophylaxis: Moderate risk. Enoxaparin.. 5. COVID 19 vaccination status: Patient has been vaccinated. No contacts with anyone with COVID-19 though she did note that someone in the emergency room, who is wearing a mask, was having hiccups who may have had Covid. 6. CODE STATUS: Addressed with the patient. Patient was to be full code.
[2021-06-27 07:29] LABS: Absolute Lymphocyte Count 0.62 X10^3/uL (0.83-4.51); Absolute Neutrophil Count 5.5 X10^3/uL (2.0-7.7); Basophil# 0.03 X10^3/uL; Basophil% 0.4 % (0-1); Eosinophil# 0.07 X10^3/uL; Hematocrit 34.1 % (37-47); Hemoglobin 10.9 g/dL (12.0-15.0); Lymphocyte # 0.62 X10^3/ul (0.83-4.51); Lymphocyte % 8.6 % (19-41); Mean Corpuscular Hgb 28.3 pg (27.0-32.0); Mean Corpuscular Volume 88.6 fL (81-99); Mean Platelet Vol. 9.7 fl (6.2-12.0); Monocyte% 13.9 % (0-10); NRBC Flagged by Analyzer 0 % (0-5); Neutrophil # 5.45 X10^3/uL (2.7-7.7); Neutrophil % 75.7 % (47-70); Platelet Count 217 K/mm3 (150-450); RBC Distribution Width CV 13.8 % (11.6-14.6); RBC Distribution Width SD 44.7 fl (35.1-43.9); Red Blood Count 3.85 M/mm3 (4.2-5.4); White Blood Count 7.2 K/mm3 (4.4-11.0)
[2021-06-27 08:02] LABS: ALB/GLOB Ratio 0.6 RATIO (0.9-2.4); AST(SGOT) 12 U/L (15-37); Alanine Aminotransfer ALT/SGPT 9 U/L (13-56); Albumin, Serum 2.4 g/dL (3.2-5.0); Alkaline Phosphatase 80 U/L (45-117); Anion Gap 2 (5-15); BUN 20 mg/dL (7-18); Calcium,Total 8.6 mg/dL (8.5-10.1); Chloride 110 mmol/L (98-107); Creatinine, Serum 0.74 mg/dL (0.55-1.02); EST Glomerular Filtration Rate 80 mL/min (>60); Est Glom Filt Rate - Afr Amer 96 mL/min (>60); Estimated Creatinine Clearance 31.15 ml/min; Globulin 4.2 g/dL (2.2-4.2); Glucose 102 mg/dL (74-106); Potassium 3.9 mmol/L (3.5-5.1); Protein, Total 6.6 g/dL (6.4-8.2); Sodium Level 137 mmol/L (136-145)
[2021-06-27 08:30] VITALS: BP 118/68; PULSE 90; RESP 16; TEMP 37.3; O2SAT 99
--- NOTE | 2021-06-27 08:36 | ONC.PHONE ---
Skin photo: right lower leg
--- NOTE | 2021-06-27 08:36 | WOUNDNOTE ---
Skin photo: left lower leg
--- NOTE | 2021-06-27 08:37 | WOUNDNOTE ---
Skin photo: left lower leg
--- NOTE | 2021-06-27 08:51 | NURSING ---
recieved phone call from pt's manager career Patrizia. Patrizia verbalized she is aware she can not request information on patient but states she just wanted to pass on that patient is currently living in [facility] at [id number] near mrs chiu's kitchen whom supplies the patient with food at times. [facility] house in [place], at which is on the demographics does not have heat. States they patient has an issue with hoarding. States she has 10 cats living in the house, only has pathways through the house, and it is infested with flies. States patient refuses to shower but does have a walk in shower in this home. She does provide the patient with sponge baths. Patrizia states she has verbalized her concern to the patient's family, and discussed [facility] with the patient whom has refused because of her cats. information relayed to social work nurse and case mgmt.
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
[2021-06-27] MEDS: Lisinopril 20 MG Tablet PO (11:10)
[2021-06-27] MEDS: Enoxaparin 40 MG/0.4 ML Syringe SC (11:16)
--- NOTE | 2021-06-27 12:35 | DS.PCM_ITS ---
Providers Date of Admission: 06/26/21 Primary Care Physician: Dr. Jason Benitez MD Consultations 06/26/21 21:56 Consult: Onc/Wound/biomedical analytical scientist Routine Comment: Reason For Visit: CELLULITIS Diagnosis Discharge Diagnosis (1) Cellulitis of right leg without foot: Status: Acute Code(s): L03.115 - Cellulitis of right lower limb (2) Cellulitis of left leg without foot: Status: Acute Code(s): L03.116 - Cellulitis of left lower limb (3) (HFpEF) heart failure with preserved ejection fraction: Status: Acute Code(s): I50.30 - Unspecified diastolic (congestive) heart failure Qualifiers: Heart failure chronicity: chronic Qualified Code(s): I50.32 - Chronic diastolic (congestive) heart failure Medications at Discharge Home Medications cholecalciferol (vitamin D3) 2,000 unit PO DAILY 08/12/17 pantoprazole 40 mg tablet,delayed release 40 mg PO DAILY 07/01/18 Blood Pressure Cuff #1 ea 01/28/20 carvedilol 3.125 mg tablet 3.125 mg PO BID #180 tab 03/24/21 potassium chloride 20 mEq tablet,extended release(part/cryst) 20 meq PO DAILY #30 tab 04/28/21 lisinopril 20 mg tablet 20 mg PO BID #180 tab 06/19/21 doxycycline hyclate 100 mg PO BID 06/26/21 furosemide 40 mg PO BIDCM #90 tab 06/27/21 Hospital Course Summary of Care Provided Minutes Spent on Discharge: 35 Hospital Course: Patient is an 80-year-old lady with history of congestive heart failure with preserved ejection fraction, bilateral stasis dermatitis sent to the ED with erythema and swelling involving both lower extremities 1. Bilateral lower extremity cellulitis ?In the context of bilateral stasis dermatitis admitted to regular nursing floor. Patient had been started on doxycycline this was held treated with vancomycin. Patient was also seen in consultation by wound care nurse 2. Acute on chronic congestive heart failure with preserved ejection fraction ?Patient was on p.o. Lasix 40 mg daily, she did receive IV Lasix 40 mg twice daily and her Lasix dose was increased from 40 daily to 40 twice daily on discharge 3. Bilateral stasis dermatitis ?Patient was discharged home with home health for dressing changes 4. Hypertension - Blood pressure controlled, home medications continued with dose adjustment as needed 5. GERD ?On PPI Physical Exam Narrative GENERAL: cooperative HEENT: Atraumatic; EYES; Anicteric, Normal Conjunctiva NECK; supple, normal thyroid, RESPIRATORY: Diminished to auscultation CARDIOVASCULAR: Regular S1 S2, GI: soft, normoactive bowel sounds, : No Renal angle tenderness; EXTREMITIES: Bilateral stasis dermatitis, MUSCULOSKELETAL: no muscle waisting NEURO: Awake; no lateralizing signs. PSYCH; Flat affect Weight / BMI Weight Weight: 86.4 kg Body Mass Index (BMI) 37.2 ABG / Lab / Microbiology Data Result Diagrams: 06/27/21 07:10 06/27/21 07:10 Laboratory: Laboratory Results - last 24 hr 06/26/21 19:45: WBC 7.6, RBC 4.23, Hgb 12.0, Hct 37.2, MCV 87.9, MCH 28.4, MCHC 32.3, RDW Std Deviation 43.9, RDW Coeff of [place] 13.6, Plt Count 262, MPV 10.0, Immature Gran % (Auto) 0.400, Neut % (Auto) 72.5 H, Lymph % (Auto) 13.8 L, [place] % (Auto) 11.2 H, Eos % (Auto) 1.7, Baso % (Auto) 0.4, Absolute Neuts (auto) 5.5, Absolute Lymphs (auto) 1.05, Nucleated RBC % 0 06/26/21 19:45: PT 13.9, INR 1.1, APTT 38.8 H 06/26/21 19:45: Sodium 138, Potassium 3.7, Chloride 109 H, Carbon Dioxide 24.0, Anion Gap 5, BUN 21 H, Creatinine 0.66, Estim Creat Clear Calc 31.15, Est GFR (MDRD) Af Amer 110, Est GFR (MDRD) Non-Af 91, BUN/Creatinine Ratio 31.8 H, Glucose 99, Calcium 9.2, Total Bilirubin 0.40, AST 12 L, ALT 11 L, Alkaline Phosphatase 86, Total Protein 7.4, Albumin 2.8 L, Globulin 4.6 H, Albumin/Globulin Ratio 0.6 L 06/26/21 19:45: Lactic Acid 0.5 06/27/21 07:10: WBC 7.2, RBC 3.85 L, Hgb 10.9 L, Hct 34.1 L, MCV 88.6, MCH 28.3, MCHC 32.0, RDW Std Deviation 44.7 H, RDW Coeff of [place] 13.8, Plt Count 217, MPV 9.7, Immature Gran % (Auto) 0.400, Neut % (Auto) 75.7 H, Lymph % (Auto) 8.6 L, [place] % (Auto) 13.9 H, Eos % (Auto) 1.0, Baso % (Auto) 0.4, Absolute Neuts (auto) 5.5, Absolute Lymphs (auto) 0.62 L, Nucleated RBC % 0 06/27/21 07:10: Sodium 137, Potassium 3.9, Chloride 110 H, Carbon Dioxide 25.0, Anion Gap 2 L, BUN 20 H, Creatinine 0.74, Estim Creat Clear Calc 31.15, Est GFR (MDRD) Af Amer 96, Est GFR (MDRD) Non-Af 80, BUN/Creatinine Ratio 27.0 H, Glucose 102, Calcium 8.6, Total Bilirubin 0.70, AST 12 L, ALT 9 L, Alkaline Phosphatase 80, Total Protein 6.6, Albumin 2.4 L, Globulin 4.2, Albumin/Globulin Ratio 0.6 L Microbiology: Microbiology 06/26/21 23:18 Wound - Leg, Right Gram Stain - Final Radiography Diagnostic Testing: Radiology Impression Tibia/Fibula X-Ray 06/26/21 18:16 IMPRESSION: Diffuse cellulitis without evidence for acute osteomyelitis Electronically Signed: Geo Fernandez MD at 20:37 EDT , Service support , D/C Instructions Discharge Diet: 8 Cup Fluid Restriction and 2000 mg Sodium Diet Discharge Activity: Return to Normal Activity Call your doctor if you observe: Fever of 101 or Higher, Shortness of breath, Fainting spells and Chest pain Meaningful Use Info Meaningful Use Diagnoses (Choose all that apply): CHF CHF CYNDIE/ARB ordered at discharge?: Yes Documented LVEF (%): 50 Discharge Plan Admission Admit Date/Time: 06/26/21 21:00 Attending Provider: Armand Bob Primary Care Provider: Jason Benitez Discharge Orders/Prescriptions Prescriptions: Continued pantoprazole [Protonix] 40 mg tablet,delayed release (DR/EC) 40 mg PO DAILY RF: 0 potassium chloride 20 mEq tablet,ER particles/crystals 20 meq PO DAILY Qty: 30 RF: 0 (DME) Blood Pressure Cuff Qty: 1 RF: 0 lisinopril 20 mg tablet 20 mg PO BID Qty: 180 RF: 3 cholecalciferol (vitamin D3) 1,000 UNIT capsule 2,000 unit PO DAILY RF: 0 doxycycline hyclate 100 mg Tablet 100 mg PO BID RF: 0 carvedilol [Coreg] 3.125 mg tablet 3.125 mg PO BID Qty: 180 RF: 3 Changed furosemide 40 mg tablet 40 mg PO BIDCM Qty: 90 RF: 4 Referrals / Follow Up: Jason Benitez MD [Primary Care Provider] - In 1 Week Disposition Disposition (needs filled in before D/C Order can be placed): Home Health Service Charges/Coding Visit Charges Inpatient E&M: 13570 Disch Hosp
[2021-06-27] MEDS: Potassium Chloride Oral Tablet 20 MEQ PO (12:56)
[2021-06-27] MEDS: Furosemide 40 MG Tablet PO (12:56)
[2021-06-27] MEDS: Cholecalciferol (VIT D3) 25 MCG TABLET (1,000 UNITS) 50 MCG PO (12:57)
[2021-06-27 16:00] VITALS: BP 132/85; PULSE 100; RESP 16; TEMP 36.8; O2SAT 100
--- NOTE | 2021-06-27 16:15 | CASEMGMT ---
Social Work Note SW received message that pt's caregiver Patrizia wanted a call back regarding concerns with pt's home. Patrizia's number [phone]. Patrizia is not listed on pt's demographics so this worker went into pt's room to ask if this worker could call Patrizia. SW in to speak with pt. ELIZABETH introduced self and role at [facility]. SW informed pt that this worker received note that Patrizia would like a call back. Pt states why does she need to talk to a social work administrator? SW informed pt that this worker is not sure what Patrizia wanted, this worker only received update that Patrizia wanted a call back. Pt states she doesn't need to talk to you, I just talked to her. ELIZABETH again asked pt if this worker could just call Patrizia for an update. Pt states no you can't, I will call her. SW informed pt that she is own person, has a right to make own decisions and who [facility] staff can update. Pt states I know and I don't want you calling her, she's getting into my business. ELIZABETH asked pt if this worker could just make a courtesy call to Patrizia and pt told this worker no. Pt then called Patrizia herself on cell phone. Pt asked Patrizia why she wanted to speak to a SW. ELIZABETH again asked pt if this worker could speak to Patrizia to let her know that this worker cannot disclose any information and pt states No, I will tell her. Pt then told Patrizia on the phone the SW is not allowed to call you. ELIZABETH placed a call to Marvin with [facility] and provided referral. Since pt is currently residing in [facility], [facility] will need to be updated on referral. Marvin states she received call from pt's Caregiver Patrizia and informed her she will need to call [facility]. ELIZABETH reviewed chart, pt has been unable to tell address in [facility] in [facility]. ELIZABETH back in to speak with pt to ask for current address. Pt states she doesn't know. ELIZABETH informed pt that [facility] needs the current address she is staying. Pt again states she doesn't know and doesn't know if [place] or Patrizia would know it either. Pt's Caregiver Patrizia then entered pt's room. Patrizia disclosed that she has all these concerns with pt's living environments. Patrizia states pt has flies, has 10 cats, and showed picture of hoarding situation in pt's house. Patrizia states that pt will also make comments that she wants to kill herself. This disclose sparked conversation between pt and Patrizia. Pt and Patrizia had a conversation. Patrizia tried to explain her concerns to pt and pt kept saying that Patrizia only cared about her money and she has a cousin whose a FISH LIVER SORTER that she can get to help pt. Pt states that she feels safe having Patrizia drive her home but states she is hurt that Patrziia would turn her back on her. ELIZABETH spoke with both Patrizia and pt. SW explained that pt is alert and orientated, own person, able to live how she wants to live. SW spoke with Patrizia about [facility] and how a report can be made. SW spoke with pt about Patrizia just has all these concerns for pt but again informed pt that she is own person, cane make own decision. SW spoke with pt about Patrizia stating she will state she wants to kill herself. Pt states I never say that and whoever said I do is crazy. Pt denied any history of suicidal thoughts/plans and denied any current suicidal thoughts/plans. Pt then states her address is [address] [facility]. SW placed a call to [facility] and left message regarding [facility] referral. Tania Henry CARGO AND CONTAINER INSPECTOR, RESEARCH SCIENTIST
--- NOTE | 2021-06-27 19:48 | NURSING ---
reviewed documentation by Danitza Castro, student RN
--- NOTE | 2021-06-28 09:45 | CASEMGMT ---
Social Work Note ELIZABETH received call from Kat with [facility] requesting update on pt. ELIZABETH updated Kat on discharge yesterday and information on pt. Tania Henry ENDLESS BED DRUM SANDER, CHILD DAY CARE PROVIDER
--- NOTE | 2021-06-28 14:01 | CASEMGMT ---
MAL DC F/u Call DC Date: 06/27/21 DC Diagnosis: Cellulitis Rt/Lt leg. Unspecified DHF. DC Disposition: Home, Has gamma facilities operator Lace/Strata: 05/28 Called patient's listed home number. Patient answered. introduced self and role. Patient states that she is doing pretty good and was just getting ready to go out to the barn. States her legs are still weeping some. Believed her private duty nurse quit on her. States her cousin is a SCRUM MASTER and going to see if she can help her. Aware can call her PCP to ask for HH SN referral. States her nephew will take her to f/u with PCP in a week and has to see when he is off to make appointment. Denies any issues, concerns or questions with [facility], medications or f/u. SMAL Yanes
== END 2021-06-27 16:47 | disposition home health service (06) | DRG 602 ==
LOC: ED 20:45 → MS3 21:18
PROVIDERS: Emergency Provider Emergency Medicine; PCP Family Medicine; Visit Provider Internal Medicine
DX: L03.115 Cellulitis of right lower limb (principal); I50.43 Acute on chronic combined systolic (congestive) and diastolic (congestive) heart failure; I42.8 Other cardiomyopathies; L03.116 Cellulitis of left lower limb; B87.9 Myiasis, unspecified; I89.0 Lymphedema, not elsewhere classified; I87.2 Venous insufficiency (chronic) (peripheral); I25.10 Atherosclerotic heart disease of native coronary artery without angina pectoris; K21.9 Gastro-esophageal reflux disease without esophagitis; I11.0 Hypertensive heart disease with heart failure; E78.2 Mixed hyperlipidemia; E66.9 Obesity, unspecified; M19.90 Unspecified osteoarthritis, unspecified site; E55.9 Vitamin D deficiency, unspecified; I27.21 Secondary pulmonary arterial hypertension; I25.2 Old myocardial infarction; Z79.899 Other long term (current) drug therapy; Z68.37 Body mass index [BMI] 37.0-37.9, adult
CPT/HCPCS: 36415; 73590; 80053; 83605; 85025; 85610; 85730; 87040; 87070; 87077; 87186; 87205; 93005; 97802; 99285; J7040; A4216

== ENCOUNTER → 2021-08-22 15:16 | Outpatient (CLI) | payer MEDICARE, SELFPAY | PROVIDERS: PCP Family Medicine; Visit Provider Physician Assistant Surgical | DX: Z11.52 Encounter for screening for COVID-19 (principal) | CPT/HCPCS: 87635; U0005; U0003 ==

== ENCOUNTER 2021-10-22 12:31 | Inpatient (IN) | payer MEDICARE, SELFPAY ==
[2021-10-22] VITALS (10 sets, daily range): BP systolic 148–174; BP diastolic 79–110; PULSE 74–109; RESP 20–36; TEMP 36.5–37.2; O2SAT 86–100; BMI 39.0; BMI 38.8
--- NOTE | 2021-10-22 12:48 | EKG12_ITS ---
Test Reason : SOB Blood Pressure : / mmHG Vent. Rate : 101 BPM Atrial Rate : 101 BPM P-R Int : 196 ms QRS Dur : 104 ms QT Int : 382 ms P-R-T Axes : 038 -03 186 degrees QTc Int : 495 ms Sinus tachycardia Left ventricular hypertrophy with repolarization abnormality Abnormal ECG Confirmed by EMILIE DEAN, ADRIAN ([id number]), newspaper editor SANAM BOYKIN ([id number]) on 10/24/2021 11:10:09 AM Referred By: SOTERO Confirmed By:ADRIAN PHAN MD
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
--- NOTE | 2021-10-22 13:50 | RAD_ITS ---
INDICATION: dyspnea EXAMINATION/TECHNIQUE: X-RAY - XR Chest 1 View COMPARISON: 04/16/2021 FINDINGS: LIFE-SUPPORT AND LINES: 1. None. 2. No pneumothorax or HEART AND VESSELS: Cardiac silhouette is upper limit of normal, no congestive failure LUNGS AND PLEURAL SPACES: Interval development of interstitial prominence/infiltrate and atelectasis greatest at the lung bases, no consolidation. No effusion. No pulmonary mass is noted. MEDIASTINUM AND HILAR REGIONS: No masses adenopathy noted. No areas of calcification. Visualized upper airway is normal in position. BONY ELEMENTS: No acute bony changes noted. RAD/Chest 1 View (Portable) IMPRESSION: 1. Worsening interstitial infiltrate and atelectasis, greatest at the lung bases. No evidence of consolidation. No meena effusion. 2. Borderline cardiomegaly without congestive failure. Electronically Signed: Rolando Palacios MD at 14:38 EST ,
[2021-10-22 14:11] LABS: Absolute Lymphocyte Count 0.64 X10^3/uL (0.83-4.51); Absolute Neutrophil Count 12.7 X10^3/uL (2.0-7.7); Basophil# 0.05 X10^3/uL; Basophil% 0.3 % (0-1); Eosinophil# 0.03 X10^3/uL; Eosinophils% 0.2 % (0-5); Hematocrit 40.8 % (37-47); Hemoglobin 13.3 g/dL (12.0-15.0); Lymphocyte # 0.64 X10^3/ul (0.83-4.51); Lymphocyte % 4.5 % (19-41); Mean Corp Hgb Conc 32.6 g/dL (32-36); Mean Corpuscular Hgb 28.2 pg (27.0-32.0); Mean Corpuscular Volume 86.6 fL (81-99); Mean Platelet Vol. 10.3 fl (6.2-12.0); Monocyte# 0.87 X10^3/uL; Monocyte% 6.1 % (0-10); NRBC Flagged by Analyzer 0 % (0-5); Neutrophil # 12.65 X10^3/uL (2.7-7.7); Neutrophil % 88.5 % (47-70); Platelet Count 177 K/mm3 (150-450); RBC Distribution Width CV 14.2 % (11.6-14.6); RBC Distribution Width SD 45.1 fl (35.1-43.9); Red Blood Count 4.71 M/mm3 (4.2-5.4); White Blood Count 14.3 K/mm3 (4.4-11.0)
[2021-10-22 14:29] LABS: Anion Gap 4 (5-15); BUN 12 mg/dL (7-18); BUN/Creat Ratio 13.1 RATIO (10-20); Calcium,Total 9.4 mg/dL (8.5-10.1); Chloride 111 mmol/L (98-107); Creatinine, Serum 0.92 mg/dL (0.55-1.02); EST Glomerular Filtration Rate 62 mL/min (>60); Est Glom Filt Rate - Afr Amer 75 mL/min (>60); Estimated Creatinine Clearance 33.28 ml/min; Glucose 132 mg/dL (74-106); Potassium 3.9 mmol/L (3.5-5.1); Sodium Level 139 mmol/L (136-145); Troponin-I HS 433 pg/mL (3.0-54.0)
[2021-10-22 15:15] LABS: BNP,B-Type NATRIURETIC PEPTIDE 556.4 pg/mL (0-100)
[2021-10-22] MEDS: Furosemide 40 MG/4 ML Vial IV (15:32)
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
[2021-10-22] MEDS: Ceftriaxone 1 GM/50 ML BAG IV (15:42)
[2021-10-22 16:10] LABS: International Normalized Ratio 1.1; Prothrombin Time (Protime)PT. 13.5 SECONDS (11.7-14.9)
[2021-10-22 16:11] LABS: Partial Thromboplast Time 35.2 Seconds (24.1-36.2)
[2021-10-22 16:24] LABS: Lactic Acid 1.6 mmol/L (0.4-1.9)
[2021-10-22 17:06] LABS: Magnesium 2.3 mg/dL (1.6-2.6)
--- NOTE | 2021-10-22 17:14 | VDLE_ITS ---
Reason For Study: elevated D-Dimer RIGHT LEFT GSV is normal. GSV is normal. CFV is compressible, spontaneous, phasic, CFV is compressible, spontaneous, phasic, competent and demonstrates normal competent, and demonstrates normal augmentation. augmentation. FV is compressible. FV is compressible, spontaneous, phasic, POP V is cmpressible. competent and demonstrates normal T/P Trunk is compressible. augmentation. PTV is compressible. POP V is compressible, spontaneous, phasic, RT PerV is compressible. competent and demonstrates normal Procedure augmentation. This is a venous duplex using B-mode, color T/P Trunk is compressible. flow and spectral Doppler. PTV is compressible. Exam performed portable in patient room. LT PerV is compressible. The study was technically difficult. Due to lymphedema, patient had difficulty tolerating compressions and touch to legs RT > LT. A preliminary report was called and/or faxed to [facility]. VL/Venous Duplex US - David Extrem Interpretation Summary No evidence for acute deep venous thrombosis bilateral lower extremities with p atent and compressible bilateral great saphenous veins. Technically difficult examination secondary to lymphedema and patient discomfort. Ordering Physician: Alanna Vallejo Referring Physician: Jason Benitez Performed By: Hermila Reveles, JOESPHCS, RVT
[2021-10-22 17:25] LABS: Procalcitonin 0.23 ng/mL (0.00-0.09)
[2021-10-22] MEDS: Acetaminophen 325 MG Tablet 650 MG PO ×2 (17:54→21:59)
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
[2021-10-22 18:52] LABS: Troponin-I HS 1723 pg/mL (3.0-54.0)
[2021-10-22 21:05] LABS: Troponin-I HS 2200 pg/mL (3.0-54.0)
[2021-10-22] MEDS: Carvedilol 3.125 MG TABLET PO (21:47)
[2021-10-22] MEDS: Lisinopril 20 MG Tablet PO (21:47)
[2021-10-23] VITALS (15 sets, daily range): BP systolic 125–159; BP diastolic 60–80; PULSE 64–104; RESP 16–20; TEMP 36.5–36.7; O2SAT 94–100
--- NOTE | 2021-10-23 05:55 | ECHOCS_ITS ---
Reason For Study: NSTEMI, CHF Procedure This was a 2D Doppler, Color Flow transthoracic echocardiogram. Contrast injection was performed. Exam performed portable in patient room. Left Ventricle Normal LV size. Left ventricular systolic function is lower limits of normal. The estimated ejection fraction is 50 %. Segmental dysfunction with preserved ejection fraction (see wall motion). [place] : Hypokinetic. Mid-Inferior: Hypokinetic. Infero-Basal: Hypokinetic. Mid-anteroseptal : Hypokinetic. Right Ventricle Normal RV size. Normal systolic function. Atria The left atrium is moderately enlarged. Normal right atrium. Mitral Valve There is mild to moderate mitral annular calcification. Mild-Moderate (1-2+) eccentric mitral valve insufficiency. Pulmonic Valve Normal pulmonic valve. Great Vessels Calcified aortic root. The pulmonary artery is normal size. Inferior vena cava collapse with respiration. Pericardium/Pleural No pericardial effusion. Medication Diluted definity 3ml given slow IV push to enhance endocardial definition. MMode/2D Measurements & Calculations LVIDd: 6.0 cm IVSd: 0.89 cm Ao root diam: 2.8 cm LVIDs: 5.2 cm LVPWd: 0.94 cm RVDd: 2.7 cm FS: 13.2 % LAV(MOD-bp): 83.1 ml LVAd ap4: 33.0 cm2 SV(MOD-sp4): 45.0 ml LAV(MOD-bp) Indexed: 45.8 ml/m2 LVLd ap4: 7.4 cm LAV(MOD-sp2): 62.4 ml EDV(MOD-sp4): 119.6 ml LAV(MOD-sp4): 84.2 ml EDV(sp4-el): 125.5 ml LVAs ap4: 24.3 cm2 LVLs ap4: 6.6 cm ESV(MOD-sp4): 74.6 ml ESV(sp4-el): 76.5 ml EF(MOD-sp4): 37.6 % EF(sp4-el): 39.1 % SV(sp4-el): 49.0 ml LA dimension(2D): 4.3 cm LA A4 area: 25.6 cm2 RA A4 area: 11.6 cm2 Doppler Measurements & Calculations MV E max gautam: 118.6 cm/sec Lat Peak E' Gautam: 9.4 cm/sec Med Peak E' Gautam: 4.8 cm/sec MV A max gautam: 118.6 cm/sec E/E' lat: 12.6 E/E' med: 24.5 MV E/A: 1.0 Ao V2 max: 152.1 cm/sec LV V1 max: 99.2 cm/sec PA V2 max: 91.3 cm/sec Ao max P.2 mmHg LV V1 max P.9 mmHg Ao V2 mean: 115.3 cm/sec Ao mean P.7 mmHg Ao V2 VTI: 31.2 cm TR max gautam: 279.8 cm/sec TR max P.3 mmHg ECHO/Echo Complete W/ Contrast Interpretation Summary Normal LV size. Left ventricular systolic function is lower limits of normal. The estimated ejection fraction is 50 %. The left atrium is moderately enlarged. Mild-Moderate (1-2+) eccentric mitral valve insufficiency. Contrast injection was performed. Ordering Physician: Alanna Vallejo Referring Physician: Jason Benitez Performed By: Anabela Yarbrough, CLAIRE, RVT
--- NOTE | 2021-10-23 05:55 | EKG12_ITS ---
Test Reason : MORNING EKG Blood Pressure : / mmHG Vent. Rate : 087 BPM Atrial Rate : 087 BPM P-R Int : 188 ms QRS Dur : 098 ms QT Int : 466 ms P-R-T Axes : 034 -06 173 degrees QTc Int : 560 ms Normal sinus rhythm ST & T wave abnormality, consider anterolateral ischemia Prolonged QT Abnormal ECG When compared with ECG of 22-OCT-2021 12:56, MANUAL COMPARISON REQUIRED, DATA IS UNCONFIRMED Confirmed by EMILIE DEAN, ADRIAN ([id number]), school photograph editor SANAM BOYKIN ([id number]) on 10/24/2021 11:19:05 AM Referred By: LARISSA Confirmed By:ADRIAN PHAN MD
[2021-10-23 06:33] LABS: Absolute Lymphocyte Count 0.97 X10^3/uL (0.83-4.51); Absolute Neutrophil Count 4.1 X10^3/uL (2.0-7.7); Basophil# 0.04 X10^3/uL; Basophil% 0.7 % (0-1); Eosinophil# 0.09 X10^3/uL; Eosinophils% 1.5 % (0-5); Hematocrit 33.9 % (37-47); Lymphocyte # 0.97 X10^3/ul (0.83-4.51); Lymphocyte % 16.4 % (19-41); Mean Corp Hgb Conc 32.4 g/dL (32-36); Mean Corpuscular Hgb 28.5 pg (27.0-32.0); Mean Corpuscular Volume 87.8 fL (81-99); Mean Platelet Vol. 10.6 fl (6.2-12.0); Monocyte# 0.68 X10^3/uL; Monocyte% 11.5 % (0-10); NRBC Flagged by Analyzer 0 % (0-5); Neutrophil # 4.13 X10^3/uL (2.7-7.7); Neutrophil % 69.7 % (47-70); Platelet Count 154 K/mm3 (150-450); RBC Distribution Width CV 14.6 % (11.6-14.6); RBC Distribution Width SD 46.5 fl (35.1-43.9); Red Blood Count 3.86 M/mm3 (4.2-5.4); White Blood Count 5.9 K/mm3 (4.4-11.0)
[2021-10-23 07:03] LABS: ALB/GLOB Ratio 0.7 RATIO (0.9-2.4); AST(SGOT) 26 U/L (15-37); Alanine Aminotransfer ALT/SGPT 20 U/L (13-56); Albumin, Serum 2.5 g/dL (3.2-5.0); Alkaline Phosphatase 67 U/L (45-117); Anion Gap 4 (5-15); BUN 13 mg/dL (7-18); BUN/Creat Ratio 17.7 RATIO (10-20); Calcium,Total 8.7 mg/dL (8.5-10.1); Chloride 110 mmol/L (98-107); Cholesterol 152 mg/dL (200); Creatinine, Serum 0.73 mg/dL (0.55-1.02); EST Glomerular Filtration Rate 81 mL/min (>60); Est Glom Filt Rate - Afr Amer 97 mL/min (>60); Estimated Creatinine Clearance 59.01 ml/min; Globulin 3.6 g/dL (2.2-4.2); Glucose 96 mg/dL (74-106); High Density Lipoprotein 59 mg/dL; Potassium 3.7 mmol/L (3.5-5.1); Protein, Total 6.1 g/dL (6.4-8.2); Sodium Level 140 mmol/L (136-145); Triglycerides 98 mg/dL; Very Low Density Lipoprotein 20 mg/dL (5-40)
[2021-10-23 07:34] LABS: Hemoglobin A1c 5.5 % (3.8-5.6)
[2021-10-23] MEDS: Potassium Chloride Oral Tablet 20 MEQ PO (07:37)
[2021-10-23] MEDS: Carvedilol 3.125 MG TABLET PO (07:37)
[2021-10-23] MEDS: Lisinopril 20 MG Tablet PO ×2 (07:37→21:21)
[2021-10-23] MEDS: Acetaminophen 325 MG Tablet 650 MG PO (07:37)
[2021-10-23] MEDS: Pantoprazole Sodium 40 MG Tablet PO (07:37)
[2021-10-23] MEDS: 0.9% Saline Lock 10 ML Syringe IV ×3 (07:37→17:48)
--- NOTE | 2021-10-23 07:53 | PN.HOSP_ITS ---
Subjective Subjective Follow-up on acute non-STEMI: Patient was seen and examined. She denied any current chest pain. Denies fever or chills. Patient underwent cardiac catheterization and findings showed normal left main coronary artery, LAD with 50% stenotic lesion, left circumflex artery mild disease, totally occluded right coronary artery with [id number] collaterals, EF of 45% Objective Data Objective Data Vital Signs: Vital Signs Temp Pulse Resp BP Pulse Ox 98.1 F 83 18 159/71 H 99 10/23/21 07:35 10/23/21 07:35 10/23/21 07:35 10/23/21 07:35 10/23/21 07:43 Oxygen Flow Rate (L/min) 2 Oxygen Delivery Method Nasal Cannula Weight: 87.7 kg Body Mass Index (BMI) 38.8 Intake & Output: Intake and Output for Last 24 Hours 10/21/21 10/22/21 10/23/21 23:59 23:59 23:59 Intake Total 305 / 505 215 / 215 Output Total 700 / 700 Balance -395 / -195 215 / 215 Lab / Micro Data Result Diagrams: 10/23/21 06:15 10/23/21 06:15 Labs: Laboratory Results - last 24 hr 10/22/21 14:05: WBC 14.3 H, RBC 4.71, Hgb 13.3, Hct 40.8, MCV 86.6, MCH 28.2, MCHC 32.6, RDW Std Deviation 45.1 H, RDW Coeff of [place] 14.2, Plt Count 177, MPV 10.3, Immature Gran % (Auto) 0.400, Neut % (Auto) 88.5 H, Lymph % (Auto) 4.5 L, [place] % (Auto) 6.1, Eos % (Auto) 0.2, Baso % (Auto) 0.3, Absolute Neuts (auto) 12.7 H, Absolute Lymphs (auto) 0.64 L, Nucleated RBC % 0 10/22/21 14:05: Sodium 139, Potassium 3.9, Chloride 111 H, Carbon Dioxide 24.0, Anion Gap 4 L, BUN 12, Creatinine 0.92, Estim Creat Clear Calc 33.28, Est GFR (MDRD) Af Amer 75, Est GFR (MDRD) Non-Af 62, BUN/Creatinine Ratio 13.1, Glucose 132 H, Calcium 9.4, Troponin I High Sens 433 H* 10/22/21 14:34: D-Dimer Quant (PE/DVT) 1.50 H* 10/22/21 14:34: Lactic Acid Cancelled 10/22/21 14:34: B-Natriuretic Peptide 556.4 H 10/22/21 15:50: Lactic Acid 1.6 10/22/21 15:50: PT 13.5, INR 1.1, APTT 35.2 10/22/21 15:50: Magnesium 2.3 10/22/21 15:50: Procalcitonin 0.23 H 10/22/21 17:40: COVID-19 (KEERTHI) Not Detected 10/22/21 18:03: Troponin I High Sens 1723 H* 10/22/21 20:09: Troponin I High Sens 2200 H* 10/23/21 06:15: WBC 5.9, RBC 3.86 L, Hgb 11.0 L, Hct 33.9 L, MCV 87.8, MCH 28.5, MCHC 32.4, RDW Std Deviation 46.5 H, RDW Coeff of [place] 14.6, Plt Count 154, MPV 10.6, Immature Gran % (Auto) 0.200, Neut % (Auto) 69.7, Lymph % (Auto) 16.4 L, [place] % (Auto) 11.5 H, Eos % (Auto) 1.5, Baso % (Auto) 0.7, Absolute Neuts (auto) 4.1, Absolute Lymphs (auto) 0.97, Nucleated RBC % 0 10/23/21 06:15: Sodium 140, Potassium 3.7, Chloride 110 H, Carbon Dioxide 26.0, Anion Gap 4 L, BUN 13, Creatinine 0.73, Estim Creat Clear Calc 59.01, Est GFR (MDRD) Af Amer 97, Est GFR (MDRD) Non-Af 81, BUN/Creatinine Ratio 17.7, Glucose 96, Calcium 8.7, Total Bilirubin 0.40, AST 26, ALT 20, Alkaline Phosphatase 67, Total Protein 6.1 L, Albumin 2.5 L, Globulin 3.6, Albumin/Globulin Ratio 0.7 L, Triglycerides 98, Cholesterol 152, LDL Cholesterol 73, VLDL Cholesterol 20, HDL Cholesterol 59 10/23/21 06:15: Hemoglobin A1c 5.5 Micro: Microbiology 10/22/21 17:40 Mucosa - Nasopharyngeal Respiratory Panel (PCR) - Final 10/22/21 20:25 Urine, Clean Catch Legionella Antigen - Final 10/22/21 20:25 Urine, Clean Catch Streptococcus pneumoniae Antigen (M - Final 10/22/21 13:07 Nasal Secretion SARS-CoV-2 Antigen (Rapid) - Final Radiography Diagnostic Testing: Radiology Impression Chest X-Ray 10/22/21 13:50 IMPRESSION: 1. Worsening interstitial infiltrate and atelectasis, greatest at the lung bases. No evidence of consolidation. No meena effusion. 2. Borderline cardiomegaly without congestive failure. Electronically Signed: Rolando Palacios MD at 14:38 EST , Physical Exam Narrative Physical exam: General: Alert, Oriented x3, Cooperative, No apparent distress, morbidly obese, on 2 L of oxygen HEENT: Atraumatic Oral: Moist Mucosa Neck: Supple Lungs:Diminished to auscultation Cardiovascular: HS I+II, regular, no murmurs Abdomen: Bowel Sounds Present, Soft, Non Tender Extremities: Bilateral leg edema +2 Assessment & Plan Assessment/Plan (1) Pneumonia: QUALIFIERS: Laterality: bilateral Lung location: unspecified part of lung Pneumonia type: due to unspecified organism Qualified Code(s): J18.9 - Pneumonia, unspecified organism (2) Hypoxia: (3) CHF (congestive heart failure): QUALIFIERS: Heart failure chronicity: acute Heart failure type: combined systolic and diastolic Qualified Code(s): I50.41 - Acute combined systolic (congestive) and diastolic (congestive) heart failure (4) Non-ST elevated myocardial infarction: PLAN: 1. Acute hypoxic respiratory insufficiency, multifactorial, comm unity Acquired Pneumonia/Acute exacerbation of HF with reduced EF, EF 45% Patient is currently on 2 L of oxygen Continue with breathing treatments, Encourage use of incentive spirometer. Wean off oxygen for SPO2 more than 94% 2. Acute exacerbation of heart failure with reduced EF, EF 45% Continue with IV lasix, strict I & Os, daily weight, fluid restriction, CYNDIE- wraps to legs 3. Acute NSTEMI, s/p cardiac cath, findings showed moderate disease in LAD, 50% stenosis, occluded RCA with collaterals 4. Community-acquired pneumonia, continue IV ceftriaxone azithromycin 5. Hypertension, continue lisinopril, Coreg 6. Rest of chronic medical condition including hyperlipidemia, obesity, chronic bilateral lower extremity lymphedema with chronic venous stasis, breast CA, GERD, history of TIA Home meds reviewed 7. DVT PPx- SCDs Charges/Coding Visit Charges Inpatient E&M: 38526 Subs Hosp L3
[2021-10-23] MEDS: Ceftriaxone 1 GM/50 ML BAG IV (08:04)
--- NOTE | 2021-10-23 08:46 | RAD_ITS ---
STUDY: X-RAY CHEST REASON FOR EXAM: Female, 81 years old. ? PNA TECHNIQUE: AP and lateral views of the chest. COMPARISON: Comparison is made with prior study dated 10/22/2021. FINDINGS: EKG electrodes are seen. Since prior study, the CHF has improved. Persistent bibasilar atelectasis and/or infiltrates worse on the right side. Blunting of both costophrenic angles. Normal size heart. Normal mediastinum and tere. Normal visualized pulmonary arteries. There is atherosclerotic calcification of the aortic arch with tortuosity. There are diffuse degenerative changes of the visualized thoracic spine. Normal visualized ribs, clavicles, and shoulders. There is no demonstrated abnormality of the visualized soft tissue structures of the upper abdomen. RAD/Chest PA and Lateral IMPRESSION: Improvement in the CHF. Residual bibasilar atelectasis and/or infiltrate. Electronically Signed: Kain Bradley MD at 10:12 EST ,
--- NOTE | 2021-10-23 08:49 | NURSING ---
Report called to IRAM Metz in laborer hoisting.
--- NOTE | 2021-10-23 08:59 | PN.CARD_ITS ---
Subjective Subjective Patient seen and evaluated. Appears to be doing better this morning. I had a long discussion with her regarding her cardiac condition. She had expressed concerns about her previous groin catheterization performed by Dr. Callahan and the issues she had with it. Objective Data Vital Signs: Vital Signs Temp Pulse Resp BP Pulse Ox 98.1 F 83 18 159/71 H 99 10/23/21 07:35 10/23/21 07:35 10/23/21 07:35 10/23/21 07:35 10/23/21 07:43 Oxygen Flow Rate (L/min) 2 Oxygen Delivery Method Nasal Cannula Weight: 193 lb 5.526 oz Body Mass Index (BMI) 38.8 Intake & Output: Intake and Output for Last 24 Hours 10/21/21 10/22/21 10/23/21 23:59 23:59 23:59 Intake Total 305 / 505 265 / 265 Output Total 700 / 700 Balance -395 / -195 265 / 265 Lab / Micro Data Result Diagrams: 10/23/21 06:15 10/23/21 06:15 Labs: Laboratory Results - last 24 hr 10/22/21 14:05: WBC 14.3 H, RBC 4.71, Hgb 13.3, Hct 40.8, MCV 86.6, MCH 28.2, MCHC 32.6, RDW Std Deviation 45.1 H, RDW Coeff of [place] 14.2, Plt Count 177, MPV 10.3, Immature Gran % (Auto) 0.400, Neut % (Auto) 88.5 H, Lymph % (Auto) 4.5 L, [place] % (Auto) 6.1, Eos % (Auto) 0.2, Baso % (Auto) 0.3, Absolute Neuts (auto) 12.7 H, Absolute Lymphs (auto) 0.64 L, Nucleated RBC % 0 10/22/21 14:05: Sodium 139, Potassium 3.9, Chloride 111 H, Carbon Dioxide 24.0, Anion Gap 4 L, BUN 12, Creatinine 0.92, Estim Creat Clear Calc 33.28, Est GFR (MDRD) Af Amer 75, Est GFR (MDRD) Non-Af 62, BUN/Creatinine Ratio 13.1, Glucose 132 H, Calcium 9.4, Troponin I High Sens 433 H* 10/22/21 14:34: D-Dimer Quant (PE/DVT) 1.50 H* 10/22/21 14:34: Lactic Acid Cancelled 10/22/21 14:34: B-Natriuretic Peptide 556.4 H 10/22/21 15:50: Lactic Acid 1.6 10/22/21 15:50: PT 13.5, INR 1.1, APTT 35.2 10/22/21 15:50: Magnesium 2.3 10/22/21 15:50: Procalcitonin 0.23 H 10/22/21 17:40: COVID-19 (KEERTHI) Not Detected 10/22/21 18:03: Troponin I High Sens 1723 H* 10/22/21 20:09: Troponin I High Sens 2200 H* 10/23/21 06:15: WBC 5.9, RBC 3.86 L, Hgb 11.0 L, Hct 33.9 L, MCV 87.8, MCH 28.5, MCHC 32.4, RDW Std Deviation 46.5 H, RDW Coeff of [place] 14.6, Plt Count 154, MPV 10.6, Immature Gran % (Auto) 0.200, Neut % (Auto) 69.7, Lymph % (Auto) 16.4 L, [place] % (Auto) 11.5 H, Eos % (Auto) 1.5, Baso % (Auto) 0.7, Absolute Neuts (auto) 4.1, Absolute Lymphs (auto) 0.97, Nucleated RBC % 0 10/23/21 06:15: Sodium 140, Potassium 3.7, Chloride 110 H, Carbon Dioxide 26.0, Anion Gap 4 L, BUN 13, Creatinine 0.73, Estim Creat Clear Calc 59.01, Est GFR (MDRD) Af Amer 97, Est GFR (MDRD) Non-Af 81, BUN/Creatinine Ratio 17.7, Glucose 96, Calcium 8.7, Total Bilirubin 0.40, AST 26, ALT 20, Alkaline Phosphatase 67, Total Protein 6.1 L, Albumin 2.5 L, Globulin 3.6, Albumin/Globulin Ratio 0.7 L, Triglycerides 98, Cholesterol 152, LDL Cholesterol 73, VLDL Cholesterol 20, HDL Cholesterol 59 10/23/21 06:15: Hemoglobin A1c 5.5 Micro: Microbiology 10/22/21 17:40 Mucosa - Nasopharyngeal Respiratory Panel (PCR) - Final 10/22/21 20:25 Urine, Clean Catch Legionella Antigen - Final 10/22/21 20:25 Urine, Clean Catch Streptococcus pneumoniae Antigen (M - Final 10/22/21 13:07 Nasal Secretion SARS-CoV-2 Antigen (Rapid) - Final Cardiology Labs/Tests 10/22/21 14:05: WBC 14.3 H, RBC 4.71, Hgb 13.3, Hct 40.8, MCV 86.6, MCH 28.2, MCHC 32.6, Plt Count 177, MPV 10.3, Immature Gran % (Auto) 0.400, Neut % (Auto) 88.5 H, Lymph % (Auto) 4.5 L, [place] % (Auto) 6.1, Eos % (Auto) 0.2, Baso % (Auto) 0.3, Absolute Neuts (auto) 12.7 H, Nucleated RBC % 0 10/22/21 14:05: Sodium 139, Potassium 3.9, Chloride 111 H, Carbon Dioxide 24.0, Anion Gap 4 L, BUN 12, Creatinine 0.92, Est GFR (MDRD) Af Amer 75, Est GFR (MDRD) Non-Af 62, BUN/Creatinine Ratio 13.1, Glucose 132 H, Calcium 9.4 10/22/21 14:34: D-Dimer Quant (PE/DVT) 1.50 H* 10/22/21 14:34: Lactic Acid Cancelled 10/22/21 14:34: B-Natriuretic Peptide 556.4 H 10/22/21 15:50: Lactic Acid 1.6 10/22/21 15:50: PT 13.5, INR 1.1, APTT 35.2 10/22/21 15:50: Magnesium 2.3 10/23/21 06:15: WBC 5.9, RBC 3.86 L, Hgb 11.0 L, Hct 33.9 L, MCV 87.8, MCH 28.5, MCHC 32.4, Plt Count 154, MPV 10.6, Immature Gran % (Auto) 0.200, Neut % (Auto) 69.7, Lymph % (Auto) 16.4 L, [place] % (Auto) 11.5 H, Eos % (Auto) 1.5, Baso % (Auto) 0.7, Absolute Neuts (auto) 4.1, Nucleated RBC % 0 10/23/21 06:15: Sodium 140, Potassium 3.7, Chloride 110 H, Carbon Dioxide 26.0, Anion Gap 4 L, BUN 13, Creatinine 0.73, Est GFR (MDRD) Af Amer 97, Est GFR (MDRD) Non-Af 81, BUN/Creatinine Ratio 17.7, Glucose 96, Calcium 8.7, Total Bilirubin 0.40, Triglycerides 98, Cholesterol 152, LDL Cholesterol 73, VLDL Cholesterol 20, HDL Cholesterol 59 10/23/21 06:15: Hemoglobin A1c 5.5 Rhythm: EKG: ECHO: Stress Test: Cardiac Cath: PCI: CT Surgery: Holter monitor: EPS: PPM: CXR: Chest CT Scan: Radiography Diagnostic Testing: Radiology Impression Chest X-Ray 10/22/21 13:50 IMPRESSION: 1. Worsening interstitial infiltrate and atelectasis, greatest at the lung bases. No evidence of consolidation. No meena effusion. 2. Borderline cardiomegaly without congestive failure. Electronically Signed: Rolando Palacios MD at 14:38 EST , Physical Exam Const alert, oriented x3 and no apparent distress General Appearance: cooperative HEENT hearing grossly normal bilaterally Head and Scalp: atraumatic Eyes EOMs intact bilaterally Neck General: normal visual inspection Chest inspection of chest normal and palpation of chest normal Resp normal respiratory effort Auscultation: clear to auscultation bilaterally Cardio regular rate, regular rhythm, S1 normal heart sound and S2 normal heart sound Jugular Venous Distention: JVD GI normal to inspection, nondistended, normoactive bowel sounds Extremity normal capillary refill Extremity Narrative: Significant nonpitting edema noted. Patient with a history of lymphedema Peripheral Pulses: Yes pulses 2+ throughout and femoral pulses present Skin no rashes or lesions noted Neuro oriented x3 and CN's II-XII intact bilaterally Psych Appearance: grossly normal and appropriate Assessment & Plan Assessment/Plan (1) History of non-ST elevation myocardial infarction (NSTEMI): PLAN: Patient presents with a non-ST elevation myocardial infarction. At this juncture I would suggest that we evaluate her coronary anatomy with a left heart catheterization. There is benefits and alternatives have been explained to her she understands and agrees to proceed. Depending on the findings further recommendations will be made. Addendum: Cardiac catheterization demonstrated evidence of tortuous vessels as well as the following: Normal left main coronary artery. Left anterior descending artery with moderate 50% stenotic lesions. Left circumflex artery with mild disease. Totally occluded right coronary artery with [id number] collaterals. Left ventricular ejection fraction of 45%. Based on the above angiographic findings the patient to be managed with medical therapy and follow-up with her primary indoor landscape architect Dr. Kaden Callahan. (2) Chronic combined systolic and diastolic CHF (congestive heart failure): PLAN: She has had previous echocardiogram demonstrating mild left ventricular systolic dysfunction and normal right ventricular pressures. This will be reevaluated today with her catheterization. * Her natruretic peptide is elevated and thus I would recommend that she continue with intravenous diuresis. (3) Essential hypertension: PLAN: Her blood pressure appears to be under good control at this particular time and will continue the same. (4) Hyperlipemia, mixed: PLAN: We will continue with aggressive risk factor modification.
--- NOTE | 2021-10-23 10:34 | CASEMGMT ---
According to [facility], the following are in-network tertiary facilities: [facility], [place], [facility], [facility], [facility], [facility], and . Patricio WALDEN CM
--- NOTE | 2021-10-23 10:45 | PCM.OP.PRO ---
Assessment & Plan Assessment/Plan (1) Non-ST elevated myocardial infarction: (2) Secondary pulmonary arterial hypertension: Procedure Report Date of Procedure: 10/23/21 CONSCIOUS SEDATION REPORT BRIEF HISTORY OF PRESENT ILLNESS: The patient is an 81-year-old female who presented to [facility] 10/22/2021 secondary to 4 days of progressive shortness of breath. Patient had been seen by cardiology and it was deemed that it was necessary to do a heart catheterization. Patient reportedly had a 90 cm radial sheath placed and tolerated the procedure relatively well. Patient did receive fentanyl and Versed for the procedure, but on discontinuation of the radial catheter, patient was unable to tolerate. I was called urgently to the Fund Director to assist with removal of the device. Patient localized pain to the wrist and was interacting. Did attempt to withdrawal and patient was unable to tolerate. After review of the risks, patient agreed with using propofol to assist with the removal of the device. Obtaining additional history was relatively limited secondary to already receiving some Versed. PHYSICAL EXAMINATION: VITAL SIGNS: Reviewed and were acceptable. GENERAL: The patient is a female, in no apparent distress, speaking in full sentences. HEENT: Normocephalic, atraumatic. Mucous membranes are moist and pink. Good mouth opening noted. Trachea is midline. Good neck mobility. MP [IV]. Glasses in place. CHEST: S1, S2 regular rate and rhythm. No murmurs, rubs or gallops were noted. LUNGS: Clear to auscultation bilaterally without appreciable wheezes, rales or rhonchi. ABDOMEN: Soft, nontender, nondistended. Positive bowel sounds. EXTREMITIES: There is no clubbing, cyanosis or edema. ASA Class: II DESCRIPTION OF PROCEDURE: After confirmation of informed consent, the patient's anesthesia plan was reviewed in detail. Propofol was chosen. Risks and benefits were reviewed and the patient agreed to proceed. At 10:31 AM, the patient was given [40 mg of propofol]. The patient achieved an appropriate level of sedation and the catheter was removed without incident. The patient did have some postprocedure hypoxia as low as 86%. Patient was increased from 2 L to 6 L/min without improvement. Patient did receive a jaw thrust with complete resolution of hypoxia. The patient was monitored until 10:45 AM, at which time the patient reached their baseline mental status and function. The patient tolerated the procedure well. COMPLICATIONS: Mild hypoxia ESTIMATED BLOOD LOSS: None RECOMMENDATIONS: Okay to recover in usual fashion. Procedures Pulmonary 9xxxx: [id number] Con Sedation
[2021-10-23] MEDS: BENZOCAINE/MENTHOL 1 LOZENGE MUCOUS MEM ×2 (11:01→16:27)
--- NOTE | 2021-10-23 11:06 | CL.D_ITS ---
Patient Name: CARLO KOROMA Study Date: 10/23/2021 Performing: Demetrio Hinds MD Ht: 59.05 inches 150 cm : 1940 Wt: 194.01 lbs 88 kg Age: 81 Gender: female BSA: 1.82 PROCEDURE(S) PERFORMED [id number])LHC/COR/LV CLINICAL PROFILE AND INDICATIONS Indications: Suspected CAD Heart Failure: NYHA Class: 3, Newly Diagnosed: Yes, Heart Failure Type: Diastolic Stress/Imaging Stress/Image Study Performed: No CAD Presentations: Non-STEMI. Symptom onset Date/Time: 10/22/2021 Time Not Available CONCLUSIONS Severe single-vessel disease involving the right coronary artery and left to right collaterals RECOMMENDATIONS Medical therapy DESCRIPTION OF PROCEDURE The patient arrived to the procedure lab. The risks and benefits of the procedure as well as a full d escription of our services here and current unavailability of surgical backup were fully explained to the patient and/or their significant other prior to the catheterization. The Timeout was completed, verifying the correct patient and procedure. The patient's procedural site was prepped and draped in the usual fashion. Local anesthetic was given subcutaneously to right radial region with Lidocaine 2% . Using a modified Seldinger technique, arterial access was obtained via the right radial artery, a 6 Fr sheath was inserted. Left Coronary Artery selective angiography was performed in multiple views u sing a 6 Fr. JL 4-125cm catheter. Right Coronary Artery selective angiography was then performed in m ultiple views using a 5 Fr. JR 5 catheter. Left Ventriculography was performed in MAHARAJ projection usin g a 5 Fr. Pigtail catheter. LV to AO pullback pressures were then recorded.The arterial sheath was pulled and a TR Band was applied for hemostasis CORONARY ANGIOGRAPHY DOMINANCE: Right Dominant LEFT HEART ASSESSMENT Left Ventricular Ejection Fraction: by LV Gram 45 % Global Hypokinesis - Mild Depressed Left Ventricular systolic function LEFT MAIN: Angiographically normal LEFT ANTERIOR DESCENDING ARTERY: Left anterior descending artery is a medium size vessel with moderat e stenosis and diffuse distal disease CIRCUMFLEX ARTERY: Mild luminal irregularities less than 30% RIGHT CORONARY ARTERY: is occluded COLLATERAL FLOW: Collateral flow from Left to Right AORTIC ROOT: Very tortuous aortic root requiring a long Trent catheter COMPLICATIONS No Complications PROCEDURE MEDICATIONS Fentanyl 50 mcg IV Versed 1 mg IV Versed 1 mg IV Fentanyl 50 mcg IV Versed 1 mg IV Fentanyl 50 mcg IV Versed 1 mg IV Fentanyl 50 mcg IV Propofol 40 mg IV Oxygen: 3 L/min via nasal cannula Heparin given IA 10/23/2021 09:27:37 Verapamil 2.5mg, Ntg 100mcgs, 3000 units of Heparin given IA 10/23/2021 09:27:37 SUMMARY OF HEMODYNAMIC DATA Time AIR REST ECG 09:08:54 Art 147/63 (94) 09:21:16 AO 115/54 (78) SA 09:31:28 AO 140/68 (99) 09:49:34 LV 152/13, 27 10:02:45 LV 154/11, 22 10:02:52 LV 139/15, 25 10:03:50 LV 141/15, 28 10:03:56 LVp 144/18, 27 10:04:05 AOp 148/68 (103) 10:04:10 Signed By Demetrio Hinds MD On 10/23/2021 11:05:34 AM Demetrio Hinds MD
[2021-10-23] MEDS: Furosemide 40 MG/4 ML Vial IV ×2 (11:53→17:47)
[2021-10-23] MEDS: 0.9% Normal Saline 1,000 ML 60 ML IV (12:09)
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
--- NOTE | 2021-10-23 12:15 | CASEMGMT ---
IRAM WHALEY Face to Face with patient for initial transition planning/care coordination assessment. RN JOVANA introduced self and role at [facility]. Patient lying in bed, alert and oriented. Patient willing to participate in assessment and is able to answer all questions appropriately. Care providers, pharmacy, and demographics verified. Patient wishes to discharge home, denies need for home health at this time. Patient states she has no further needs or concerns at this time. CM to follow for discharge planning needs that may arise. PCP: Emmanuel Specialists: fay Zamora; [place] laundry housekeeper Preferred Pharmacy: [facility] Insurance: [employer] [facility] Prescription Benefit: yes Living Will/HPOA: none LNOK: nephew, friend Living Arrangements: Patient lives alone in a 2 story home with bed and bath on first floor. patient states she is independent at home. Transportation: Friend Patrizia DME/HHC: Patient states she has shower chair, BSC, raised toilet, cane, walker, and grab bars at home. Patient denies previous HHC or SNF. Patient states her friend Patrizia is a DISTRICT CUSTOMS DIRECTOR and able to help if needed. Disposition Plan: Patient to discharge home with family support and follow-up plans in place. Tania LO, RN, CM
--- NOTE | 2021-10-23 14:29 | CHAPLAIN ---
Type of Pastoral Visit _x__ Initial Visit ___ Follow-up Visit ___ On-call Visit ___ General Patient Visit ___ Spiritual Assessment ___ Family Conference ___ Bereavement ___ Rapid Response ___ Code Blue ___ Other (describe below) Pastoral Care Referral From _x__ Patient ___ Family ___ Nurse ___ Physician ___ Kinesiology Internship ___ Signal Technician ___ Other (describe below) Sacrament/Intervention _x__ Active listening ___ Anointing ___ Alevism ___ Bereavement ___ Communion _x__ Nanci exploration ___ _x__ Life review _x__ Prayer ___ Reconciliation ___ Sacrament of Sick _x__ Supportive presence ___ Wedding ___ Other (describe below) Pastoral Comments patient had a heart cath and is now resting in bed; pt is very talkative, takes over the conversation, and seeks help with ordering her lunch; pt had a but he and was going to [facility] sikh until COVID; pt is asking about her lunch and call was made to the kitchen for her
[2021-10-23] MEDS: Metoprolol Tartrate 25 MG Tablet PO (21:20)
[2021-10-23] MEDS: Atorvastatin Calcium 40 MG Tablet PO (21:20)
[2021-10-24] VITALS (11 sets, daily range): BP systolic 131–155; BP diastolic 64–73; PULSE 66–81; RESP 18–20; TEMP 36.4–36.9; O2SAT 93–99
[2021-10-24 06:51] LABS: Absolute Lymphocyte Count 1.26 X10^3/uL (0.83-4.51); Absolute Neutrophil Count 4.1 X10^3/uL (2.0-7.7); Basophil# 0.04 X10^3/uL; Basophil% 0.6 % (0-1); Eosinophils% 1.6 % (0-5); Hematocrit 35.3 % (37-47); Hemoglobin 11.2 g/dL (12.0-15.0); Lymphocyte # 1.26 X10^3/ul (0.83-4.51); Lymphocyte % 19.9 % (19-41); Mean Corp Hgb Conc 31.7 g/dL (32-36); Mean Corpuscular Hgb 28.1 pg (27.0-32.0); Mean Corpuscular Volume 88.5 fL (81-99); Monocyte% 12.7 % (0-10); NRBC Flagged by Analyzer 0 % (0-5); Neutrophil # 4.09 X10^3/uL (2.7-7.7); Neutrophil % 64.7 % (47-70); Platelet Count 164 K/mm3 (150-450); RBC Distribution Width CV 14.5 % (11.6-14.6); RBC Distribution Width SD 46.7 fl (35.1-43.9); Red Blood Count 3.99 M/mm3 (4.2-5.4); White Blood Count 6.3 K/mm3 (4.4-11.0)
[2021-10-24 07:23] LABS: ALB/GLOB Ratio 0.7 RATIO (0.9-2.4); AST(SGOT) 20 U/L (15-37); Alanine Aminotransfer ALT/SGPT 20 U/L (13-56); Albumin, Serum 2.7 g/dL (3.2-5.0); Alkaline Phosphatase 69 U/L (45-117); Anion Gap 6 (5-15); BUN 17 mg/dL (7-18); BUN/Creat Ratio 21.5 RATIO (10-20); Calcium,Total 8.6 mg/dL (8.5-10.1); Chloride 103 mmol/L (98-107); Creatinine, Serum 0.79 mg/dL (0.55-1.02); EST Glomerular Filtration Rate 74 mL/min (>60); Est Glom Filt Rate - Afr Amer 89 mL/min (>60); Estimated Creatinine Clearance 59.01 ml/min; Globulin 3.9 g/dL (2.2-4.2); Glucose 89 mg/dL (74-106); Potassium 3.4 mmol/L (3.5-5.1); Protein, Total 6.6 g/dL (6.4-8.2); Sodium Level 137 mmol/L (136-145)
[2021-10-24] MEDS: BENZOCAINE/MENTHOL 1 LOZENGE MUCOUS MEM (07:26)
[2021-10-24] MEDS: Pantoprazole Sodium 40 MG Tablet PO (08:19)
[2021-10-24] MEDS: Potassium Chloride Oral Tablet 20 MEQ PO (08:19)
[2021-10-24] MEDS: Metoprolol Tartrate 25 MG Tablet PO (08:19)
[2021-10-24] MEDS: Lisinopril 20 MG Tablet PO (08:20)
[2021-10-24] MEDS: 0.9% Saline Lock 10 ML Syringe IV (08:29)
[2021-10-24] MEDS: Ceftriaxone 1 GM/50 ML BAG IV (10:04)
[2021-10-24] MEDS: Furosemide 40 MG/4 ML Vial IV (10:04)
--- NOTE | 2021-10-24 12:28 | PCM.DC ---
Discharge Instructions Diet Discharge Diet: Low fat / Low cholesterol, 6 Cup Fluid Restriction and 2000 mg Sodium Diet Activity Discharge Activity: Return to Normal Activity Follow Up Care Test Results: Test results from this visit will be discussed in further detail at your follow-up appointment, if applicable. Discharge Plan Admission Admit Date/Time: 10/22/21 16:39 Primary Reason for Your Visit: Hypoxia/CHF/pneumonia Attending Provider: Tisha Stubbs Primary Care Provider: Jason Benitez Consulting Providers: Jeremie Marley ; Jorge Ramirez Instructions Additional Instructions / Restrictions: Take note of your new medications. Continue to take your previous medication. Take note of changes to your medications. Continue to weigh yourself every day. Discharge Orders/Prescriptions Prescriptions: New atorvastatin 40 mg Tablet 40 mg PO QHS 30 Days Qty: 30 RF: 0 amoxicillin-pot clavulanate [Augmentin] 500-125 mg tablet 1 tab PO BID 5 Days Qty: 10 RF: 0 Continued pantoprazole [Protonix] 40 mg tablet,delayed release (DR/EC) 40 mg PO DAILY RF: 0 potassium chloride 20 mEq tablet,ER particles/crystals 20 meq PO DAILY Qty: 30 RF: 0 lisinopril 20 mg tablet 20 mg PO BID Qty: 180 RF: 3 cholecalciferol (vitamin D3) 1,000 UNIT capsule 2,000 unit PO DAILY RF: 0 carvedilol [Coreg] 3.125 mg tablet 3.125 mg PO BID Qty: 180 RF: 3 Changed furosemide 40 mg tablet 40 mg PO BID 30 Days Qty: 60 RF: 1 Discontinued (DME) Blood Pressure Cuff Qty: 1 RF: 0 Referrals / Follow Up: Jason Benitez MD [Primary Care Provider] - Within 2 Weeks Disposition Disposition (needs filled in before D/C Order can be placed): Home Health Service
--- NOTE | 2021-10-24 12:29 | PCM.DC.SUM ---
Providers Date of Admission: 10/22/21 Date of Discharge: 10/24/21 Primary Care Physician: Dr. Jason Benitez MD Consultations 10/22/21 17:14 Consult: Cardiology Routine Consulting Provider: Jeremie Marley Reason for Consult: CHF exac, NSTEMI (demand possibly) w/ ? PNA EMERGENT Consult: No MD Notified: Yes Date Notified: 10/22/21 Time Notified: 16:45 Method of Notification: cortext 10/22/21 19:04 Consult: Oncology/Hematology Routine Consulting Provider: Jorge Ramirez Reason for Consult: History of ITP, NSTEMI EMERGENT Consult: No MD Notified: Yes Date Notified: 10/23/21 Time Notified: 07:58 Method of Notification: Verbal Reason For Visit: HYPOXIA, PNA, CHF, EXAC, NSTEMI Diagnosis Discharge Diagnosis (1) Pneumonia: Status: Acute Code(s): J18.9 - Pneumonia, unspecified organism Qualifiers: Laterality: bilateral Lung location: unspecified part of lung Pneumonia type: due to unspecified organism Qualified Code(s): J18.9 - Pneumonia, unspecified organism (2) Hypoxia: Status: Resolved Code(s): R09.02 - Hypoxemia (3) CHF (congestive heart failure): Status: Acute Code(s): I50.9 - Heart failure, unspecified Qualifiers: Heart failure chronicity: acute Heart failure type: combined systolic and diastolic Qualified Code(s): I50.41 - Acute combined systolic (congestive) and diastolic (congestive) heart failure (4) Non-ST elevated myocardial infarction: Status: Acute Code(s): I21.4 - Non-ST elevation (NSTEMI) myocardial infarction Medications at Discharge Home Medications cholecalciferol (vitamin D3) 2,000 unit PO DAILY 08/12/17 pantoprazole 40 mg tablet,delayed release 40 mg PO DAILY 07/01/18 carvedilol 3.125 mg tablet 3.125 mg PO BID #180 tab 03/24/21 potassium chloride 20 mEq tablet,extended release(part/cryst) 20 meq PO DAILY #30 tab 04/28/21 lisinopril 20 mg tablet 20 mg PO BID #180 tab 06/19/21 amoxicillin-pot clavulanate [Augmentin] 1 tab PO BID 5 Days #10 tab 10/24/21 atorvastatin 40 mg PO QHS 30 Days #30 tab 10/24/21 furosemide 40 mg PO BID 30 Days #60 tab 10/24/21 lisinopril 2.5 mg PO DAILY 30 Days #30 tab 10/24/21 potassium chloride [Klor-Con M20] 20 meq PO DAILY 7 Days #7 tab 10/24/21 Hospital Course Operations None Procedures None Summary of Care Provided Minutes Spent on Discharge: 40 Hospital Course: 81-year-old female with past medical history of chronic systolic CHF, hypertension, hyperlipidemia, CAD who comes in with progressive dyspnea ongoing for 4 to 5 days associated with subjective fever and chills. Patient has been vaccinated and has also received a COVID-19 booster. Her work-up in the ED showed uncontrolled blood pressure, and hypoxia of 86% on room air. Chest x-ray shows worsening bilateral infiltrates/atelectasis. Rapid COVID-19 antigen test was negative. EKG showed no acute ST-T changes. Patient had some chest discomfort. Her troponin was elevated on admission at 433. Patient was admitted and managed as acute non-STEMI, acute pneumonia, acute on chronic CHF. Her troponins were trended and peaked at 2200. Cardiology was consulted. Patient underwent cardiac cath. Finding showed moderate disease in LAD, 50% stenosis, occluded RCA with collaterals. Medical management was recommended. Patient has history of ITP. Her platelets remained stable. She was not managed on heparin or aspirin. Hematology was consulted and recommended ongoing cardiac treatment. Patient continued to remain stable. She diuresed a lot. She was off oxygen at discharge. 2D echo shows EF of 45%. She was discharged on Augmentin for 5 more days making 1 week total. She also discharged on Lasix 40 mg p.o. twice daily, lisinopril 2.5 mg daily, she was continued on her Coreg as well as statin. She was not discharged on aspirin. PT and OT evaluated patient and recommended discharge with home health. Physical Exam Narrative Physical exam: General: Alert, Oriented x3, Cooperative, No apparent distress, morbidly obese,off oxygen Oral: Moist Mucosa Neck: Supple Lungs:Diminished to auscultation Cardiovascular: HS I+II, regular, no murmurs Abdomen: Bowel Sounds Present, Soft, Non Tender Extremities: Bilateral leg edema +1 Weight / BMI Weight Weight: 87.7 kg Body Mass Index (BMI) 38.8 ABG / Lab / Microbiology Data Result Diagrams: 10/24/21 05:30 10/24/21 05:30 Laboratory: Laboratory Results - last 24 hr 10/24/21 05:30: WBC 6.3, RBC 3.99 L, Hgb 11.2 L, Hct 35.3 L, MCV 88.5, MCH 28.1, MCHC 31.7 L, RDW Std Deviation 46.7 H, RDW Coeff of [place] 14.5, Plt Count 164, MPV 11.0, Immature Gran % (Auto) 0.500, Neut % (Auto) 64.7, Lymph % (Auto) 19.9, [place] % (Auto) 12.7 H, Eos % (Auto) 1.6, Baso % (Auto) 0.6, Absolute Neuts (auto) 4.1, Absolute Lymphs (auto) 1.26, Nucleated RBC % 0 10/24/21 05:30: Sodium 137, Potassium 3.4 L, Chloride 103, Carbon Dioxide 28.0, Anion Gap 6, BUN 17, Creatinine 0.79, Estim Creat Clear Calc 59.01, Est GFR (MDRD) Af Amer 89, Est GFR (MDRD) Non-Af 74, BUN/Creatinine Ratio 21.5 H, Glucose 89, Calcium 8.6, Total Bilirubin 0.30, AST 20, ALT 20, Alkaline Phosphatase 69, Total Protein 6.6, Albumin 2.7 L, Globulin 3.9, Albumin/Globulin Ratio 0.7 L Microbiology: Microbiology 10/22/21 14:34 Blood Culture (Wb) - Right Hand Blood Culture - Preliminary No growth in 48 hours. 10/22/21 17:40 Mucosa - Nasopharyngeal Respiratory Panel (PCR) - Final 10/22/21 20:25 Urine, Clean Catch Legionella Antigen - Final 10/22/21 20:25 Urine, Clean Catch Streptococcus pneumoniae Antigen (M - Final 10/22/21 13:07 Nasal Secretion SARS-CoV-2 Antigen (Rapid) - Final Radiography Diagnostic Testing: Radiology Impression Venous Doppler Study 10/22/21 17:14 Interpretation Summary No evidence for acute deep venous thrombosis bilateral lower extremities with patent and compressible bilateral great saphenous veins. Technically difficult examination secondary to lymphedema and patient discomfort. Ordering Physician: Alanna Vallejo Referring Physician: Jason Benitez Performed By: Hermila Reveles RDCS, RVT Echocardiogram 10/23/21 05:55 Interpretation Summary Normal LV size. Left ventricular systolic function is lower limits of normal. The estimated ejection fraction is 50 %. The left atrium is moderately enlarged. Mild-Moderate (1-2+) eccentric mitral valve insufficiency. Contrast injection was performed. Ordering Physician: Alanna Vallejo Referring Physician: Jason Benitez Performed By: Anabela Yarbrough RDCS, RVT Chest X-Ray 10/23/21 08:46 IMPRESSION: Improvement in the CHF. Residual bibasilar atelectasis and/or infiltrate. Electronically Signed: Kain Bradley MD at 10:12 EST , D/C Instructions Discharge Diet: Low fat / Low cholesterol, 6 Cup Fluid Restriction and 2000 mg Sodium Diet Meaningful Use Info Meaningful Use Diagnoses (Choose all that apply): CHF CHF CYNDIE/ARB ordered at discharge?: Yes Documented LVEF (%): 50 Discharge Plan Admission Admit Date/Time: 10/22/21 16:39 Primary Reason for Your Visit: Hypoxia/CHF/pneumonia Attending Provider: Tisha Stubbs Primary Care Provider: Jason Benitez Consulting Providers: Jeremie Marley ; Jorge Ramirez Instructions Additional Instructions / Restrictions: Take note of your new medications. Continue to take your previous medication. Take note of changes to your medications. Continue to weigh yourself every day. You will need repeat blood work to check on your kidney function within 1 week. Discharge Orders/Prescriptions Prescriptions: New atorvastatin 40 mg Tablet 40 mg PO QHS 30 Days Qty: 30 RF: 0 amoxicillin-pot clavulanate [Augmentin] 500-125 mg tablet 1 tab PO BID 5 Days Qty: 10 RF: 0 lisinopril 2.5 mg tablet 2.5 mg PO DAILY 30 Days Qty: 30 RF: 0 potassium chloride [Klor-Con M20] 20 mEq tablet,ER particles/crystals 20 meq PO DAILY 7 Days Qty: 7 RF: 0 Continued pantoprazole [Protonix] 40 mg tablet,delayed release (DR/EC) 40 mg PO DAILY RF: 0 potassium chloride 20 mEq tablet,ER particles/crystals 20 meq PO DAILY Qty: 30 RF: 0 lisinopril 20 mg tablet 20 mg PO BID Qty: 180 RF: 3 cholecalciferol (vitamin D3) 1,000 UNIT capsule 2,000 unit PO DAILY RF: 0 carvedilol [Coreg] 3.125 mg tablet 3.125 mg PO BID Qty: 180 RF: 3 Changed furosemide 40 mg tablet 40 mg PO BID 30 Days Qty: 60 RF: 1 Discontinued (DME) Blood Pressure Cuff Qty: 1 RF: 0 Referrals / Follow Up: Jason Benitez MD [Primary Care Provider] - 11/03/21 11:20 am Disposition Disposition (needs filled in before D/C Order can be placed): Home Health Service Charges/Coding Visit Charges Inpatient E&M: 57401 Disch Hosp
[2021-10-24] MEDS: Potassium Chloride Oral Tablet 20 MEQ 40 MEQ PO (13:30)
--- NOTE | 2021-10-24 14:27 | CASEMGMT ---
Addendum entered by Tania Thompson 10/24/21 15:16: Pt does not qualify for home oxygen. Patricio WALDEN CM Original Note: Therapy is recommending HHC for pt at discharge. This RN CM to room to discuss discharge planning. Pt declines need for HHC but is agreeable to script for OP therapy. She states if she thinks she needs the therapy once home then she will take script to [facility]. Script provided for OP therapy to pt. Pt states she is currently getting lymphadema therapy at [facility] on Fridays. 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 Pt is concerned about her oxygen level at home and pt to be provided with [facility] pulse ox to go home with instruction from RN. Pt also states she does not know how to use the IS and resp aware and will go into to instruct. Pt voices no further questions/concerns/needs. Patricio WALDEN CM
== END 2021-10-24 17:00 | disposition home or self-care (01) | DRG 280 ==
LOC: ED 15:50 → PCU 16:51
PROVIDERS: Admitting Provider Family Medicine; Emergency Provider Emergency Medicine; PCP Family Medicine; Visit Provider Internal Medicine
DX: I11.0 Hypertensive heart disease with heart failure (principal); I21.A1 Myocardial infarction type 2; J18.9 Pneumonia, unspecified organism; I50.43 Acute on chronic combined systolic (congestive) and diastolic (congestive) heart failure; D69.3 Immune thrombocytopenic purpura; I42.8 Other cardiomyopathies; I27.20 Pulmonary hypertension, unspecified; I25.10 Atherosclerotic heart disease of native coronary artery without angina pectoris; I89.0 Lymphedema, not elsewhere classified; E78.2 Mixed hyperlipidemia; K21.9 Gastro-esophageal reflux disease without esophagitis; I87.8 Other specified disorders of veins; I25.2 Old myocardial infarction; E55.9 Vitamin D deficiency, unspecified; R09.02 Hypoxemia; R73.9 Hyperglycemia, unspecified; E66.9 Obesity, unspecified; Z79.899 Other long term (current) drug therapy; Z68.39 Body mass index [BMI] 39.0-39.9, adult
CPT/HCPCS: 36415; 71045; 71046; 80048; 80053; 80061; 83036; 83605; 83735; 83880; 84145; 84484; 85025; 85379; 85610; 85730; 87040; 87426; 87449; 87633; 87635; 93005; 93306; 93458; 93970; 97162; 97166; 97530; 97535; 99152; 99153; 99251; 99285; J7030; Q9957; Q9967; A4216; C1769; C1894; C8929; G0463; J1940; U0003; U0005

== ENCOUNTER 2021-11-08 15:36 | Outpatient (CLI) | payer MEDICARE, SELFPAY ==
[2021-11-08 17:52] LABS: Absolute Lymphocyte Count 1.36 X10^3/uL (0.83-4.51); Absolute Neutrophil Count 5.2 X10^3/uL (2.0-7.7); Basophil# 0.06 X10^3/uL; Basophil% 0.8 % (0-1); Eosinophil# 0.11 X10^3/uL; Eosinophils% 1.5 % (0-5); Hematocrit 41.2 % (37-47); Lymphocyte # 1.36 X10^3/ul (0.83-4.51); Lymphocyte % 18.1 % (19-41); Mean Corp Hgb Conc 31.6 g/dL (32-36); Mean Corpuscular Volume 88.8 fL (81-99); Mean Platelet Vol. 10.8 fl (6.2-12.0); Monocyte# 0.74 X10^3/uL; Monocyte% 9.8 % (0-10); NRBC Flagged by Analyzer 0 % (0-5); Neutrophil # 5.22 X10^3/uL (2.7-7.7); Neutrophil % 69.4 % (47-70); Platelet Count 218 K/mm3 (150-450); RBC Distribution Width CV 14.3 % (11.6-14.6); RBC Distribution Width SD 45.7 fl (35.1-43.9); Red Blood Count 4.64 M/mm3 (4.2-5.4); White Blood Count 7.5 K/mm3 (4.4-11.0)
[2021-11-08 18:11] LABS: ALB/GLOB Ratio 0.8 RATIO (0.9-2.4); AST(SGOT) 19 U/L (15-37); Alanine Aminotransfer ALT/SGPT 17 U/L (13-56); Albumin, Serum 3.8 g/dL (3.2-5.0); Alkaline Phosphatase 78 U/L (45-117); Anion Gap 5 (5-15); BUN 39 mg/dL (7-18); BUN/Creat Ratio 27.5 RATIO (10-20); Calcium,Total 10.1 mg/dL (8.5-10.1); Chloride 104 mmol/L (98-107); Creatinine, Serum 1.42 mg/dL (0.55-1.02); EST Glomerular Filtration Rate 38 mL/min (>60); Est Glom Filt Rate - Afr Amer 45 mL/min (>60); Globulin 4.6 g/dL (2.2-4.2); Glucose 84 mg/dL (74-106); Potassium 4.4 mmol/L (3.5-5.1); Protein, Total 8.4 g/dL (6.4-8.2); Sodium Level 137 mmol/L (136-145)
[2021-11-08 18:36] LABS: Microalbumin,Random Urine < 5.0 mg/L (NO RANGE EST.)
== END 2021-11-08 23:59 | disposition home or self-care (01) ==
LOC: MTLAB 15:37
PROVIDERS: PCP Family Medicine; Referring Provider Nurse Practitioner Family; Visit Provider Nurse Practitioner Family
DX: L89.509 Pressure ulcer of unspecified ankle, unspecified stage (principal); I50.42 Chronic combined systolic (congestive) and diastolic (congestive) heart failure
CPT/HCPCS: 36415; 80053; 82043; 82570; 85025

== ENCOUNTER 2021-11-24 16:38 | Outpatient (CLI) | payer MEDICARE, SELFPAY ==
--- NOTE | 2021-11-24 16:43 | US_ITS ---
EXAM: US SOFT TISSUES HEAD AND NECK, THYROID CLINICAL INDICATION: GOITER TECHNIQUE: Greyscale and color doppler imaging was performed of the thyroid gland. This report was created using [email or web address] report generation technology. COMPARISON: None. FINDINGS: LEFT THYROID LOBE: The left lobe measures 4.0 x 1.9 x 1.8 cm. The left lobe demonstrates 3 cysts the largest of which measures 9 mm. Homogeneous echotexture with normal vascularity. RIGHT THYROID LOBE: The right lobe measures 3.9 x 2.1 x 1.8 cm. The right lobe demonstrates several small cysts all 5 mm or less. Homogeneous echotexture with normal vascularity. ISTHMUS: The isthmus measures 3 mm. No thyroid nodules are present. US/Thyroid IMPRESSION: Small cysts bilaterally. No follow-up imaging required. Electronically Signed: Danial Maldonado MD at 3:37 EDT ,
== END 2021-11-24 23:59 | disposition home or self-care (01) ==
LOC: US 16:40
PROVIDERS: PCP Family Medicine; Referring Provider Otolaryngology; Visit Provider Otolaryngology
DX: E04.2 Nontoxic multinodular goiter (principal)
CPT/HCPCS: 76536

== ENCOUNTER → 2021-12-25 | Outpatient (CLI) | payer MEDICARE, SELFPAY ==
[2021-12-25 15:29] LABS: Absolute Lymphocyte Count 0.82 X10^3/uL (0.83-4.51); Absolute Neutrophil Count 4.1 X10^3/uL (2.0-7.7); Basophil# 0.03 X10^3/uL; Basophil% 0.5 % (0-1); Eosinophil# 0.13 X10^3/uL; Eosinophils% 2.3 % (0-5); Hemoglobin 11.9 g/dL (12.0-15.0); Lymphocyte # 0.82 X10^3/ul (0.83-4.51); Lymphocyte % 14.2 % (19-41); Mean Corp Hgb Conc 31.3 g/dL (32-36); Mean Corpuscular Hgb 28.3 pg (27.0-32.0); Mean Corpuscular Volume 90.3 fL (81-99); Monocyte# 0.65 X10^3/uL; Monocyte% 11.3 % (0-10); NRBC Flagged by Analyzer 0 % (0-5); Neutrophil # 4.12 X10^3/uL (2.7-7.7); Neutrophil % 71.4 % (47-70); Platelet Count 192 K/mm3 (150-450); RBC Distribution Width CV 14.8 % (11.6-14.6); RBC Distribution Width SD 48.8 fl (35.1-43.9); Red Blood Count 4.21 M/mm3 (4.2-5.4); White Blood Count 5.8 K/mm3 (4.4-11.0)
[2021-12-25 15:55] LABS: PTHIN 162.9 pg/mL (18.4-80.1)
[2021-12-25 15:59] LABS: Vitamin D,25 Hydroxy 33.8 ng/mL
[2021-12-25 16:04] LABS: ALB/GLOB Ratio 0.8 RATIO (0.9-2.4); AST(SGOT) 19 U/L (15-37); Alanine Aminotransfer ALT/SGPT 16 U/L (13-56); Albumin, Serum 3.4 g/dL (3.2-5.0); Alkaline Phosphatase 71 U/L (45-117); Anion Gap 6 (5-15); BUN 23 mg/dL (7-18); BUN/Creat Ratio 21.5 RATIO (10-20); Calcium,Total 9.4 mg/dL (8.5-10.1); Chloride 104 mmol/L (98-107); Creatinine, Serum 1.07 mg/dL (0.55-1.02); EST Glomerular Filtration Rate 52 mL/min (>60); Est Glom Filt Rate - Afr Amer 63 mL/min (>60); Glucose 94 mg/dL (74-106); Magnesium 2.3 mg/dL (1.6-2.6); Protein, Total 7.4 g/dL (6.4-8.2); Sodium Level 138 mmol/L (136-145)
[2021-12-25 23:14] LABS: BNP,B-Type NATRIURETIC PEPTIDE 140.7 pg/mL (0-100)
== END | disposition home or self-care (01) ==
LOC: MFPLAB 11:52
PROVIDERS: PCP Family Medicine; Visit Provider Family Medicine
DX: I89.0 Lymphedema, not elsewhere classified (principal); I27.20 Pulmonary hypertension, unspecified; I50.9 Heart failure, unspecified; E21.3 Hyperparathyroidism, unspecified
CPT/HCPCS: 36415; 80053; 82306; 83735; 83880; 83970; 85025

== ENCOUNTER 2022-01-16 15:01 | Emergency (ER) | payer MEDICARE, SELFPAY ==
[2022-01-16 15:01] VITALS: BP 117/84; PULSE 72; RESP 16; TEMP 36.8; O2SAT 99; BMI 38.1
--- NOTE | 2022-01-16 15:31 | EKG12_ITS ---
Test Reason : Blood Pressure : / mmHG Vent. Rate : 062 BPM Atrial Rate : 062 BPM P-R Int : 192 ms QRS Dur : 088 ms QT Int : 412 ms P-R-T Axes : 025 -09 033 degrees QTc Int : 418 ms Normal sinus rhythm Nonspecific ST and T wave abnormality Abnormal ECG Confirmed by EMILIE DEAN, ADRIAN ([id number]), editor dictionary SANAM BOYKIN ([id number]) on 01/17/2022 1:25:31 PM Referred By: Confirmed By:ADRIAN PHAN MD
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
[2022-01-16 15:58] VITALS: BP 149/62; PULSE 66; RESP 16; TEMP 36.8; O2SAT 100
--- NOTE | 2022-01-16 16:00 | RAD_ITS ---
EXAM: XR CHEST, 1 VIEW CLINICAL INDICATION: cough TECHNIQUE: Frontal view of the chest. This report was created using Powered by Peak report generation technology. COMPARISON: 10/23/2021 FINDINGS: LUNGS AND PLEURAL SPACES: Unremarkable. No consolidation or edema. No pneumothorax. No effusion. HEART: Stable mild cardiomegaly. MEDIASTINUM: Central airways and mediastinal contour are unremarkable. BONES/JOINTS: Unremarkable. SOFT TISSUES: Left axillary surgical clips again seen. RAD/Chest 1 View (Portable) IMPRESSION: No acute cardiopulmonary abnormality. Electronically Signed: Pio Baron MD at 16:26 EDT ,
[2022-01-16 16:11] LABS: Absolute Neutrophil Count 2.5 X10^3/uL (2.0-7.7); Basophil# 0.01 X10^3/uL; Basophil% 0.3 % (0-1); Eosinophil# 0.03 X10^3/uL; Eosinophils% 0.9 % (0-5); Hematocrit 39.7 % (37-47); Hemoglobin 12.7 g/dL (12.0-15.0); Lymphocyte % 20.2 % (19-41); Mean Corpuscular Hgb 28.8 pg (27.0-32.0); Mean Platelet Vol. 10.4 fl (6.2-12.0); Monocyte# 0.27 X10^3/uL; Monocyte% 7.8 % (0-10); NRBC Flagged by Analyzer 0 % (0-5); Neutrophil # 2.45 X10^3/uL (2.7-7.7); Neutrophil % 70.5 % (47-70); Platelet Count 166 K/mm3 (150-450); RBC Distribution Width SD 46.9 fl (35.1-43.9); Red Blood Count 4.41 M/mm3 (4.2-5.4); White Blood Count 3.5 K/mm3 (4.4-11.0)
[2022-01-16 16:30] LABS: Anion Gap 5 (5-15); BUN 30 mg/dL (7-18); BUN/Creat Ratio 25.4 RATIO (10-20); Calcium,Total 9.6 mg/dL (8.5-10.1); Chloride 105 mmol/L (98-107); Creatinine, Serum 1.18 mg/dL (0.55-1.02); EST Glomerular Filtration Rate 46 mL/min (>60); Est Glom Filt Rate - Afr Amer 56 mL/min (>60); Estimated Creatinine Clearance 48.89 ml/min; Glucose 91 mg/dL (74-106); Potassium 4.7 mmol/L (3.5-5.1); Sodium Level 136 mmol/L (136-145); Troponin-I HS 10 pg/mL (3.0-54.0)
[2022-01-16 16:32] LABS: BNP,B-Type NATRIURETIC PEPTIDE 168.5 pg/mL (0-100)
[2022-01-16 17:08] VITALS: BP 145/68; PULSE 64; RESP 20; O2SAT 99
[2022-01-16 17:13] VITALS: O2SAT 98
[2022-01-16] MEDS: Furosemide 40 MG/4 ML Vial IV (17:22)
[2022-01-16 17:31] VITALS: BP 171/84; PULSE 69; RESP 18; O2SAT 98
== END 2022-01-16 18:07 | disposition home or self-care (01) ==
PROVIDERS: Emergency Provider Emergency Medicine; PCP Family Medicine; Visit Provider Emergency Medicine
DX: U07.1 COVID-19 (principal); I11.0 Hypertensive heart disease with heart failure; I50.42 Chronic combined systolic (congestive) and diastolic (congestive) heart failure; E78.2 Mixed hyperlipidemia; I25.10 Atherosclerotic heart disease of native coronary artery without angina pectoris; I25.2 Old myocardial infarction; E66.9 Obesity, unspecified; Z68.38 Body mass index [BMI] 38.0-38.9, adult; Z79.899 Other long term (current) drug therapy; Z86.73 Personal history of transient ischemic attack (TIA), and cerebral infarction without residual deficits
CPT/HCPCS: 71045; 80048; 83880; 84484; 85025; 87428; 93005; 96374; 99283; J1940

== ENCOUNTER 2022-01-18 13:33 | Emergency (ER) | payer MEDICARE, SELFPAY ==
[2022-01-18 13:34] VITALS: BP 159/76; PULSE 79; RESP 15; TEMP 36.1; O2SAT 97; BMI 36.1
[2022-01-18 13:38] VITALS: BP 159/76; PULSE 79; RESP 15; TEMP 36.1; O2SAT 97
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
[2022-01-18] MEDS: Furosemide 100 MG/10 ML Vial 60 MG IV (15:21)
[2022-01-18 15:24] LABS: Absolute Lymphocyte Count 0.89 X10^3/uL (0.83-4.51); Absolute Neutrophil Count 1.7 X10^3/uL (2.0-7.7); Eosinophil# 0.04 X10^3/uL; Eosinophils% 1.3 % (0-5); Hematocrit 35.7 % (37-47); Hemoglobin 11.5 g/dL (12.0-15.0); Lymphocyte # 0.89 X10^3/ul (0.83-4.51); Lymphocyte % 29.6 % (19-41); Mean Corp Hgb Conc 32.2 g/dL (32-36); Mean Corpuscular Hgb 28.6 pg (27.0-32.0); Mean Corpuscular Volume 88.8 fL (81-99); Mean Platelet Vol. 10.5 fl (6.2-12.0); Monocyte# 0.39 X10^3/uL; NRBC Flagged by Analyzer 0 % (0-5); Neutrophil # 1.68 X10^3/uL (2.7-7.7); Neutrophil % 55.8 % (47-70); Platelet Count 172 K/mm3 (150-450); RBC Distribution Width SD 45.8 fl (35.1-43.9); Red Blood Count 4.02 M/mm3 (4.2-5.4)
[2022-01-18 16:10] LABS: Anion Gap 6 (5-15); BUN 49 mg/dL (7-18); BUN/Creat Ratio 30.2 RATIO (10-20); Calcium,Total 9.4 mg/dL (8.5-10.1); Chloride 104 mmol/L (98-107); Creatinine, Serum 1.62 mg/dL (0.55-1.02); EST Glomerular Filtration Rate 32 mL/min (>60); Est Glom Filt Rate - Afr Amer 39 mL/min (>60); Glucose 92 mg/dL (74-106); Potassium 4.7 mmol/L (3.5-5.1); Sodium Level 137 mmol/L (136-145)
[2022-01-18 17:17] VITALS: BP 144/87; PULSE 79; RESP 16; O2SAT 99
== END 2022-01-18 17:18 | disposition home or self-care (01) ==
PROVIDERS: Nurse Practitioner; Emergency Provider Student in an Organized Health Care Education/Training Program; PCP Family Medicine; Visit Provider Student in an Organized Health Care Education/Training Program
DX: R60.0 Localized edema (principal); I11.0 Hypertensive heart disease with heart failure; I50.9 Heart failure, unspecified; I42.8 Other cardiomyopathies; U07.1 COVID-19; I25.10 Atherosclerotic heart disease of native coronary artery without angina pectoris; E78.2 Mixed hyperlipidemia; I25.2 Old myocardial infarction; E55.9 Vitamin D deficiency, unspecified; Z86.73 Personal history of transient ischemic attack (TIA), and cerebral infarction without residual deficits; Z79.899 Other long term (current) drug therapy
CPT/HCPCS: 80048; 85025; 96374; 99282; A4216; J1940

== ENCOUNTER → 2022-03-19 | Outpatient (CLI) | payer MEDICARE, SELFPAY ==
--- NOTE | 2022-03-19 16:16 | RAD_ITS ---
INDICATION: BACK PAIN EXAMINATION/TECHNIQUE: X-RAY - XR Spine Lumbar Min 4 Views COMPARISON: Thoracic spine radiograph on same day. CT abdomen July 09, 2019. FINDINGS: VERTEBRAE: 5 nonrib-bearing lumbar type vertebra with levocurvature similar to prior CT. Retrolisthesis of L1 on L2 not significantly changed from prior CT. Multilevel disc height loss most prominent at L3-L4 and L5-S1 with mild worsening of L5-S1. No fracture or acute compression deformity. Diffuse facet arthropathy in the lumbar spine most prominent left L4-L5. Mild diffuse vertebral body osteophyte formation. INCLUDED ABDOMEN: Included bowel gas pattern is non-obstructive. Diffuse aortic atherosclerosis. RAD/L/S Spine Min 4 Views IMPRESSION: [id number] lumbar spondylosis with mild worsening of disc height loss at L5-S1 compared to prior CT. Electronically Signed: Jasiel Muller MD at 1:51 EDT ,
--- NOTE | 2022-03-19 16:16 | RAD_ITS ---
INDICATION: BACK PAIN EXAMINATION/TECHNIQUE: X-RAY - XR Spine Thoracic 3 Views: 3V thoracic spine COMPARISON: Lumbar spine radiograph on same day. PA and lateral chest 10/23/2021 FINDINGS: VERTEBRAE: Diffuse vertebral endplate osteophyte formation with chronic anterior vertebral height loss in the mid thoracic spine, unchanged from prior study chest radiograph. No fracture or acute compression deformity. No thoracic listhesis. Lumbar spondylolisthesis and levocurvature, better evaluated on lumbar spine radiograph. DISCS: Disc spaces are maintained. INCLUDED CHEST/ABDOMEN: Left axillary clips are present. Aortic atherosclerosis. No focal airspace consolidation effusion or pneumothorax. RAD/Thoracic Spine 3 Views IMPRESSION: Thoracic spondylosis and exaggerated kyphosis without significant change from 10/23/2019 Electronically Signed: Jasiel Muller MD at 1:46 EDT ,
[2022-03-19 17:51] LABS: Absolute Lymphocyte Count 1.22 X10^3/uL (0.83-4.51); Absolute Neutrophil Count 6.1 X10^3/uL (2.0-7.7); Basophil# 0.05 X10^3/uL; Basophil% 0.6 % (0-1); Eosinophil# 0.18 X10^3/uL; Eosinophils% 2.2 % (0-5); Hemoglobin 11.2 g/dL (12.0-15.0); Lymphocyte # 1.22 X10^3/ul (0.83-4.51); Mean Corpuscular Volume 93.8 fL (81-99); Mean Platelet Vol. 10.3 fl (6.2-12.0); Monocyte# 0.62 X10^3/uL; Monocyte% 7.6 % (0-10); NRBC Flagged by Analyzer 0 % (0-5); Neutrophil # 6.05 X10^3/uL (2.7-7.7); Neutrophil % 74.2 % (47-70); Platelet Count 228 K/mm3 (150-450); RBC Distribution Width CV 13.4 % (11.6-14.6); RBC Distribution Width SD 46.2 fl (35.1-43.9); Red Blood Count 3.73 M/mm3 (4.2-5.4); White Blood Count 8.2 K/mm3 (4.4-11.0)
[2022-03-19 18:33] LABS: ALB/GLOB Ratio 0.8 RATIO (0.9-2.4); AST(SGOT) 14 U/L (15-37); Alanine Aminotransfer ALT/SGPT 17 U/L (13-56); Albumin, Serum 3.4 g/dL (3.2-5.0); Alkaline Phosphatase 80 U/L (45-117); Anion Gap 5 (5-15); BUN 52 mg/dL (7-18); BUN/Creat Ratio 32.5 RATIO (10-20); CRP < 2.90 mg/L (0.0-3.0); Calcium,Total 9.3 mg/dL (8.5-10.1); Chloride 107 mmol/L (98-107); EST Glomerular Filtration Rate 33 mL/min (>60); Est Glom Filt Rate - Afr Amer 40 mL/min (>60); Globulin 4.4 g/dL (2.2-4.2); Glucose 87 mg/dL (74-106); Potassium 5.1 mmol/L (3.5-5.1); Protein, Total 7.8 g/dL (6.4-8.2); Sodium Level 136 mmol/L (136-145)
[2022-03-21 16:08] LABS: PROEL- Albumin 3.7 g/dL (2.9-4.4); PROEL- Alpha-1 Globulin 0.2 g/dL (0.0-0.4); PROEL- Alpha-2 Globulin 0.8 g/dL (0.4-1.0); PROEL- Beta Globulin 1.1 g/dL (0.7-1.3); PROEL- Gamma Globulin 1.6 g/dL (0.4-1.8); PROEL- Globulin, Total 3.7 g/dL (2.2-3.9); PROEL- TOTAL PROTEIN 7.4 g/dL (6.0-8.5)
== END | disposition home or self-care (01) ==
PROVIDERS: PCP Family Medicine; Referring Provider Family Medicine; Visit Provider Family Medicine
DX: M54.9 Dorsalgia, unspecified (principal)
CPT/HCPCS: 36415; 72072; 72110; 80053; 84165; 85025; 86140

== ENCOUNTER 2022-05-08 13:17 | Emergency (ER) | payer MEDICARE, SELFPAY ==
[2022-05-08 13:18] VITALS: BP 143/52; PULSE 64; RESP 20; TEMP 36.1; O2SAT 99; BMI 35.2
--- NOTE | 2022-05-08 14:00 | EKG12_ITS ---
Test Reason : SOB Blood Pressure : / mmHG Vent. Rate : 057 BPM Atrial Rate : 057 BPM P-R Int : 238 ms QRS Dur : 088 ms QT Int : 424 ms P-R-T Axes : 071 -10 168 degrees QTc Int : 412 ms Sinus bradycardia with 1st degree A-V block Nonspecific ST and T wave abnormality Abnormal ECG Confirmed by EMILIE DEAN, ADRIAN ([id number]), subeditor SANAM BOYKIN ([id number]) on 05/09/2022 2:00:24 PM Referred By: Confirmed By:ADRIAN PHAN MD
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
[2022-05-08 14:24] VITALS: O2SAT 99
[2022-05-08 14:25] LABS: Absolute Lymphocyte Count 0.75 X10^3/uL (0.83-4.51); Absolute Neutrophil Count 5.8 X10^3/uL (2.0-7.7); Basophil# 0.03 X10^3/uL; Basophil% 0.4 % (0-1); Eosinophils% 1.4 % (0-5); Hematocrit 34.3 % (37-47); Hemoglobin 10.7 g/dL (12.0-15.0); Lymphocyte # 0.75 X10^3/ul (0.83-4.51); Lymphocyte % 10.3 % (19-41); Mean Corp Hgb Conc 31.2 g/dL (32-36); Mean Platelet Vol. 10.5 fl (6.2-12.0); Monocyte# 0.56 X10^3/uL; Monocyte% 7.7 % (0-10); NRBC Flagged by Analyzer 0 % (0-5); Neutrophil # 5.82 X10^3/uL (2.7-7.7); Neutrophil % 79.8 % (47-70); Platelet Count 190 K/mm3 (150-450); RBC Distribution Width CV 13.3 % (11.6-14.6); RBC Distribution Width SD 45.5 fl (35.1-43.9); Red Blood Count 3.69 M/mm3 (4.2-5.4); White Blood Count 7.3 K/mm3 (4.4-11.0)
--- NOTE | 2022-05-08 14:32 | RAD_ITS ---
STUDY: X-RAY CHEST REASON FOR EXAM: Female, 81 years old. Dyspnea TECHNIQUE: Single AP portable view of the chest. COMPARISON: Comparison is made with prior study dated 10/15/2021. FINDINGS: EKG electrodes are seen. The lungs are clear and expanded. There is no demonstrated pleural abnormality. There is mild cardiac enlargement. Normal mediastinum and tere. Normal visualized pulmonary arteries. There is atherosclerotic tortuosity of the aortic arch and descending thoracic aorta. There are diffuse degenerative changes of the visualized thoracic spine. Normal visualized ribs, clavicles, and shoulders. There is no demonstrated abnormality of the visualized soft tissue structures of the upper abdomen. RAD/Chest 1 View (Portable) IMPRESSION: Mild cardiomegaly. The lungs are clear. Electronically Signed: Kain Bradley MD at 14:48 EDT ,
[2022-05-08 14:35] LABS: International Normalized Ratio 1.1; Prothrombin Time (Protime)PT. 13.7 SECONDS (11.7-14.9)
[2022-05-08 14:36] LABS: Partial Thromboplast Time 33.6 Seconds (24.1-36.2)
[2022-05-08 14:47] LABS: ALB/GLOB Ratio 0.8 RATIO (0.9-2.4); AST(SGOT) 13 U/L (15-37); Alanine Aminotransfer ALT/SGPT 14 U/L (13-56); Albumin, Serum 3.2 g/dL (3.2-5.0); Alkaline Phosphatase 80 U/L (45-117); Anion Gap 6 (5-15); BUN 30 mg/dL (7-18); BUN/Creat Ratio 22.7 RATIO (10-20); Calcium,Total 9.2 mg/dL (8.5-10.1); Chloride 106 mmol/L (98-107); Creatinine, Serum 1.32 mg/dL (0.55-1.02); EST Glomerular Filtration Rate 41 mL/min (>60); Est Glom Filt Rate - Afr Amer 49 mL/min (>60); Globulin 4.1 g/dL (2.2-4.2); Glucose 94 mg/dL (74-106); Potassium 4.5 mmol/L (3.5-5.1); Protein, Total 7.3 g/dL (6.4-8.2); Sodium Level 140 mmol/L (136-145); Troponin-I HS 8 pg/mL (3.0-54.0)
[2022-05-08 14:50] LABS: BNP,B-Type NATRIURETIC PEPTIDE 131.4 pg/mL (0-100)
[2022-05-08 15:27] VITALS: BP 143/70; PULSE 60; RESP 18; O2SAT 98
[2022-05-08 15:27] LABS: Mucous, Urine 0 SEEN /hpf (<or=2+); White Blood Cells 0 SEEN /hpf (0-5)
[2022-05-08 15:36] LABS: Color, Urine Yellow (Yellow); Glucose, Dipstick Normal (Normal); Ketone-Dipstick Negative (Negative); Leukocyte Esterase-Dipstick Negative /ul (Negative); Nitrite-Dipstick Negative (Negative); Occult Blood-Urine Negative /ul (Negative); Protein-Dipstick Negative (Negative); Urine Bilirubin Dipstick Negative (Negative); Urine Clarity Clear (Clear); Urine Urobilinogen Normal (Normal); Urine pH 6.5 (5.0 - 8.0)
[2022-05-08 15:46] LABS: Bacteria RARE /hpf (None Seen); Red Blood Cells-Urine 0-5 SEEN /hpf (0-5); Squamous Epithelial Cells - UA 0-5 SEEN /hpf (5-10)
== END 2022-05-08 16:45 | disposition home or self-care (01) ==
PROVIDERS: Emergency Provider Emergency Medicine; PCP Family Medicine; Visit Provider Emergency Medicine
DX: R06.00 Dyspnea, unspecified (principal); I89.0 Lymphedema, not elsewhere classified; I10 Essential (primary) hypertension; I25.10 Atherosclerotic heart disease of native coronary artery without angina pectoris; I25.2 Old myocardial infarction; E66.9 Obesity, unspecified; Z86.16 Personal history of COVID-19; Z86.73 Personal history of transient ischemic attack (TIA), and cerebral infarction without residual deficits
CPT/HCPCS: 71045; 80053; 81001; 83880; 84484; 85025; 85610; 85730; 87428; 93005; 99285; P9612

== ENCOUNTER 2022-05-20 20:23 | Emergency (ER) | payer MEDICARE, SELFPAY ==
[2022-05-20 20:25] VITALS: BP 142/62; PULSE 77; RESP 18; TEMP 36.1; O2SAT 100; BMI 35.3
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
--- NOTE | 2022-05-20 20:50 | RAD_ITS ---
STUDY: PORTABLE AP UPRIGHT CHEST X-RAY OF 2048 HOURS ON 05/20/2022 REASON FOR EXAM: 81-year-old female with shortness of breath. TECHNIQUE: A single view portable AP upright chest x-ray was obtained. COMPARISON: 05/08/2022. FINDINGS: Mild demineralization. Moderate osteophytic degenerative changes of the thoracic spine. Moderate cardiomegaly with a left ventricular cardiac configuration. No evidence of heart failure. Mild fibrotic changes in the left lower lobe. No pulmonary infiltrates, atelectasis, effusion, pulmonary mass lesions. No subdiaphragmatic abnormalities. No interval change since the previous study. RAD/Chest 1 View (Portable) IMPRESSION: 1. Moderate cardiomegaly with a left ventricular cardiac configuration, but no evidence of heart failure. 2. Mild fibrotic change in left lower lobe, present on previous study of 05/08/2022. 3. No other active cardiopulmonary disease. 4. No interval change since the previous study of 05/08/2022. Electronically Signed: Main Ku MD at 21:34 EDT ,
[2022-05-20 20:54] LABS: Absolute Lymphocyte Count 0.94 X10^3/uL (0.83-4.51); Absolute Neutrophil Count 4.6 X10^3/uL (2.0-7.7); Basophil# 0.04 X10^3/uL; Basophil% 0.6 % (0-1); Eosinophil# 0.17 X10^3/uL; Eosinophils% 2.7 % (0-5); Hematocrit 33.7 % (37-47); Hemoglobin 10.6 g/dL (12.0-15.0); Lymphocyte # 0.94 X10^3/ul (0.83-4.51); Lymphocyte % 14.8 % (19-41); Mean Corp Hgb Conc 31.5 g/dL (32-36); Mean Corpuscular Hgb 29.8 pg (27.0-32.0); Mean Corpuscular Volume 94.7 fL (81-99); Mean Platelet Vol. 10.3 fl (6.2-12.0); Monocyte# 0.63 X10^3/uL; Monocyte% 9.9 % (0-10); NRBC Flagged by Analyzer 0 % (0-5); Neutrophil # 4.56 X10^3/uL (2.7-7.7); Neutrophil % 71.5 % (47-70); Platelet Count 190 K/mm3 (150-450); RBC Distribution Width CV 13.3 % (11.6-14.6); RBC Distribution Width SD 45.6 fl (35.1-43.9); Red Blood Count 3.56 M/mm3 (4.2-5.4); White Blood Count 6.4 K/mm3 (4.4-11.0)
[2022-05-20 21:11] LABS: ALB/GLOB Ratio 0.7 RATIO (0.9-2.4); AST(SGOT) 17 U/L (15-37); Alanine Aminotransfer ALT/SGPT 14 U/L (13-56); Albumin, Serum 3.1 g/dL (3.2-5.0); Alkaline Phosphatase 87 U/L (45-117); Anion Gap 7 (5-15); BUN 32 mg/dL (7-18); BUN/Creat Ratio 22.4 RATIO (10-20); Calcium,Total 9.4 mg/dL (8.5-10.1); Chloride 106 mmol/L (98-107); Creatinine, Serum 1.43 mg/dL (0.55-1.02); EST Glomerular Filtration Rate 37 mL/min (>60); Est Glom Filt Rate - Afr Amer 45 mL/min (>60); Estimated Creatinine Clearance 21.41 ml/min; Globulin 4.2 g/dL (2.2-4.2); Glucose 110 mg/dL (74-106); Potassium 4.2 mmol/L (3.5-5.1); Protein, Total 7.3 g/dL (6.4-8.2); Sodium Level 141 mmol/L (136-145)
[2022-05-20 21:23] LABS: BNP,B-Type NATRIURETIC PEPTIDE 74.4 pg/mL (0-100)
[2022-05-20 22:02] VITALS: BP 147/61; PULSE 79
== END 2022-05-20 22:03 | disposition home or self-care (01) ==
PROVIDERS: Emergency Provider Emergency Medicine; PCP Family Medicine; Visit Provider Emergency Medicine
DX: R60.0 Localized edema (principal); I11.0 Hypertensive heart disease with heart failure; I50.42 Chronic combined systolic (congestive) and diastolic (congestive) heart failure; I42.8 Other cardiomyopathies; D69.3 Immune thrombocytopenic purpura; E78.2 Mixed hyperlipidemia; I25.10 Atherosclerotic heart disease of native coronary artery without angina pectoris; R53.81 Other malaise; R13.10 Dysphagia, unspecified; K21.9 Gastro-esophageal reflux disease without esophagitis; I25.2 Old myocardial infarction; M81.0 Age-related osteoporosis without current pathological fracture; M19.90 Unspecified osteoarthritis, unspecified site; E66.9 Obesity, unspecified; Z86.73 Personal history of transient ischemic attack (TIA), and cerebral infarction without residual deficits; Z79.899 Other long term (current) drug therapy; Z68.35 Body mass index [BMI] 35.0-35.9, adult; R06.02 Shortness of breath
CPT/HCPCS: 71045; 80053; 83880; 85025; 99283; A4216

== ENCOUNTER → 2022-06-08 | Outpatient (CLI) | payer MEDICARE, SELFPAY ==
--- NOTE | 2022-06-08 12:24 | US_ITS ---
STUDY: RENAL ULTRASOUND - COMPLETE REASON FOR EXAM: Female, 81 years old. Acute kidney injury and back pain. TECHNIQUE: Ultrasound evaluation of the kidneys was performed with real-time and static casanova-scale imaging. COMPARISON: CT of the abdomen and pelvis, 07/09/2019 FINDINGS: RIGHT KIDNEY: Normal location of the right kidney, which is normal in size. The right kidney measures 10.9 cm. There is a normal cortex of the right kidney. The renal cortex measures 1.2 cm. There is no right renal mass or cyst. There are no right renal calculi. There is no right hydronephrosis. DISTAL RIGHT URETER: There is non-visualization of the distal right ureter. There is no demonstrated right ureterovesical junction calculus. There is a visualized right ureteral jet. LEFT KIDNEY: Normal location of the left kidney, which is normal in size. The left kidney measures 10.3 cm. There is a normal cortex of the left kidney. The renal cortex measures 1. cm. There is no left renal mass or cyst. There are no left renal calculi. There is no left hydronephrosis. DISTAL LEFT URETER: There is non-visualization of the distal left ureter. There is no demonstrated left ureterovesical junction calculus. There is a visualized left ureteral jet. BLADDER: The distended urinary bladder has a volume of 101 ml. There is a normal wall thickness of the distended urinary bladder. There is no demonstrated mass within the urinary bladder. There are no demonstrated bladder calculi. US/Kidney and Bladder IMPRESSION: Normal ultrasound of the kidneys and urinary bladder. Electronically Signed: Layo Perez DO at 17:40 EDT ,
== END | disposition home or self-care (01) ==
PROVIDERS: PCP Family Medicine; Referring Provider Family Medicine; Visit Provider Family Medicine
DX: N17.9 Acute kidney failure, unspecified (principal); M54.9 Dorsalgia, unspecified
CPT/HCPCS: 76770

== ENCOUNTER 2022-06-26 12:51 | Outpatient (RCR) | payer MEDICARE, SELFPAY ==
--- NOTE | 2022-06-26 14:09 | HP.PTEVAL_ITS ---
Patient's Visit Information CARLO KOROMA is a 81 year old F referred to Physical Therapy by Dr. Alphonso Newell MD with a diagnosis of R knee OA. Date of Evaluation: 06/26/22 Physical Therapist: Anthony Harmon, PT, ATC - Visit Plan Frequency: 2-3x /Week Duration: 4-6 Weeks Plan: R knee stretching and strengthening, core strengthening, balance and proprio, nustep, and HEP - Subjective Pt reports she has had R knee pain for several years. Pt notes she had injections in her R knee several years ago. Pt notes she saw her orthopedic dr. approximately 1 month ago where she received injections which helped to alleviate her pain, but not take it away. Pt reports she is pretty sore today. Pt notes is now having difficulty with sleeping at night secondary to her pain. Pt reports she has had lymphedema in her L LE for a period of time as well. Pt reports she has been overcompensating with her R LE secondary to the edema in her L LE. Pt reports she has had recent xrays which reveal OA. Pt has 4 stairs to enter her house that she is able to negotiate one step at a time. Pt reports her major goal is to get some HEP to perform secondary to her really high co- pay. Pt also c/o poor balance at this time. 5/10 pain at rest, 10/10 pain at worst - Pain R knee Pain Intensity (Out of 10): 5 Pain Intensity Range: 10 - Objective Gait: Pt is able to ambulate approximately 120 feet with cane until needing to sit and rest. MMT: B knee flex= 4/5, ext= 4-/5. ROM: R knee 0-15-90; L knee 0- 90 degrees. Balance: Pt is able to stand EO and EC for 30 seconds with out LOB. Pt is unable to march in standing without the use of an AD secondary to lack of balance. - Balance/Special Test Scores Lower Extremity Functional Score: 23 - Goals Goal 1:: Decrease R knee pain x 50% to aid with sleep Goal Time Frame: 4-6 Weeks Goal 2:: Increase R knee MMT x 1 grade to aid with stair negotiation Goal Time Frame: 4-6 Weeks Goal 3:: I with HEP Goal Time Frame: 4-6 Weeks - Rehabilitation Potential Physical Therapy Diagnosis: Pt has R knee pain, weakness, and difficulty with ambulation secondary to R knee OA Rehabilitation Potential: Good - Anticipated Interventions Patient/Client Instruction: Educate patient on: Condition, Plan of Care For the Purpose of:: To improve self management Therapeutic Exercise to Include: Strength training, Endurance training, Balance training, Gait and locomotor training, Dynamic Lumbar Stabilization For the Purpose of:: To decrease pain, To improve muscle performance and motor function, To increase tolerance to activity/condition/position Thank you for the opportunity to evaluate your patient. For Medicare and Medicare HMO plans, please review the plan of care and approve it. It will need to be FAXED BACK to us at [phone] for Medicare purposes. For Medicare only, by signing this I certify the plan of care. Please let me know if there are questions or concerns regarding this plan of care. Physician Signature: Date:
== END 2022-06-26 19:00 | disposition home or self-care (01) ==
LOC: PT 12:51
PROVIDERS: PCP Family Medicine; Referring Provider Orthopaedic Surgery Sports Medicine; Visit Provider Orthopaedic Surgery Sports Medicine
DX: M17.11 Unilateral primary osteoarthritis, right knee (principal)
CPT/HCPCS: 97161

== ENCOUNTER → 2022-07-09 | Outpatient (CLI) | payer MEDICARE, SELFPAY ==
[2022-07-09 18:16] LABS: Absolute Lymphocyte Count 1.12 X10^3/uL (0.83-4.51); Absolute Neutrophil Count 4.4 X10^3/uL (2.0-7.7); Basophil# 0.04 X10^3/uL; Basophil% 0.6 % (0-1); Eosinophil# 0.18 X10^3/uL; Eosinophils% 2.9 % (0-5); Hematocrit 34.4 % (37-47); Hemoglobin 10.6 g/dL (12.0-15.0); Lymphocyte # 1.12 X10^3/ul (0.83-4.51); Lymphocyte % 17.9 % (19-41); Mean Corp Hgb Conc 30.8 g/dL (32-36); Mean Corpuscular Hgb 28.9 pg (27.0-32.0); Mean Corpuscular Volume 93.7 fL (81-99); Mean Platelet Vol. 10.4 fl (6.2-12.0); Monocyte# 0.45 X10^3/uL; Monocyte% 7.2 % (0-10); NRBC Flagged by Analyzer 0 % (0-5); Neutrophil # 4.43 X10^3/uL (2.7-7.7); Neutrophil % 70.9 % (47-70); Platelet Count 212 K/mm3 (150-450); RBC Distribution Width CV 12.7 % (11.6-14.6); Red Blood Count 3.67 M/mm3 (4.2-5.4); White Blood Count 6.3 K/mm3 (4.4-11.0)
[2022-07-09 18:41] LABS: BNP,B-Type NATRIURETIC PEPTIDE 105.8 pg/mL (0-100)
[2022-07-09 18:43] LABS: Vitamin D,25 Hydroxy 37.3 ng/mL
[2022-07-09 18:49] LABS: ALB/GLOB Ratio 0.7 RATIO (0.9-2.4); AST(SGOT) 14 U/L (15-37); Alanine Aminotransfer ALT/SGPT 13 U/L (13-56); Albumin, Serum 3.1 g/dL (3.2-5.0); Alkaline Phosphatase 88 U/L (45-117); Anion Gap 6 (5-15); BUN 27 mg/dL (7-18); BUN/Creat Ratio 23.3 RATIO (10-20); Calcium,Total 9.4 mg/dL (8.5-10.1); Chloride 108 mmol/L (98-107); Creatinine, Serum 1.16 mg/dL (0.55-1.02); EST Glomerular Filtration Rate 47 mL/min (>60); Est Glom Filt Rate - Afr Amer 57 mL/min (>60); Globulin 4.3 g/dL (2.2-4.2); Glucose 115 mg/dL (74-106); Potassium 3.6 mmol/L (3.5-5.1); Protein, Total 7.4 g/dL (6.4-8.2); Sodium Level 142 mmol/L (136-145)
[2022-07-10 08:13] LABS: PTHIN 104.7 pg/mL (18.4-80.1)
== END | disposition home or self-care (01) ==
PROVIDERS: PCP Family Medicine; Referring Provider Family Medicine; Visit Provider Family Medicine
DX: I25.5 Ischemic cardiomyopathy (principal); I50.42 Chronic combined systolic (congestive) and diastolic (congestive) heart failure; N18.31 Chronic kidney disease, stage 3a; I89.0 Lymphedema, not elsewhere classified; M17.9 Osteoarthritis of knee, unspecified
CPT/HCPCS: 36415; 80053; 82306; 83880; 83970; 85025

== ENCOUNTER → 2022-11-20 | Outpatient (CLI) | payer MEDICARE, SELFPAY ==
[2022-11-20 18:14] LABS: Absolute Lymphocyte Count 1.01 X10^3/uL (0.83-4.51); Absolute Neutrophil Count 4.3 X10^3/uL (2.0-7.7); Basophil# 0.03 X10^3/uL; Basophil% 0.5 % (0-1); Eosinophil# 0.12 X10^3/uL; Hematocrit 35.9 % (37-47); Hemoglobin 11.2 g/dL (12.0-15.0); Lymphocyte # 1.01 X10^3/ul (0.83-4.51); Lymphocyte % 16.7 % (19-41); Mean Corp Hgb Conc 31.2 g/dL (32-36); Mean Corpuscular Hgb 28.1 pg (27.0-32.0); Mean Corpuscular Volume 90.2 fL (81-99); Mean Platelet Vol. 11.5 fl (6.2-12.0); Monocyte# 0.55 X10^3/uL; Monocyte% 9.1 % (0-10); NRBC Flagged by Analyzer 0 % (0-5); Neutrophil # 4.31 X10^3/uL (2.7-7.7); Neutrophil % 71.4 % (47-70); Platelet Count 193 K/mm3 (150-450); RBC Distribution Width CV 13.9 % (11.6-14.6); RBC Distribution Width SD 45.7 fl (35.1-43.9); Red Blood Count 3.98 M/mm3 (4.2-5.4)
[2022-11-20 18:28] LABS: ALB/GLOB Ratio 0.8 RATIO (0.9-2.4); AST(SGOT) 19 U/L (15-37); Alanine Aminotransfer ALT/SGPT 15 U/L (13-56); Albumin, Serum 3.2 g/dL (3.2-5.0); Alkaline Phosphatase 73 U/L (45-117); Anion Gap 4 (5-15); BUN 34 mg/dL (7-18); BUN/Creat Ratio 19.8 RATIO (10-20); Calcium,Total 9.1 mg/dL (8.5-10.1); Chloride 105 mmol/L (98-107); Creatinine, Serum 1.72 mg/dL (0.55-1.02); EST Glomerular Filtration Rate 30 mL/min (>60); Est Glom Filt Rate - Afr Amer 36 mL/min (>60); Globulin 4.1 g/dL (2.2-4.2); Glucose 88 mg/dL (74-106); Lipase 185 U/L (73-393); Potassium 4.9 mmol/L (3.5-5.1); Protein, Total 7.3 g/dL (6.4-8.2); Sodium Level 135 mmol/L (136-145); Thyroid Stim Hormone (TSH) 3.26 uIU/mL (0.358-3.74)
[2022-11-21 08:54] LABS: PTHIN 161.4 pg/mL (18.4-80.1)
== END | disposition home or self-care (01) ==
LOC: MFPLAB 15:16
PROVIDERS: PCP Family Medicine; Referring Provider Family Medicine; Visit Provider Family Medicine
DX: R19.7 Diarrhea, unspecified (principal); E21.3 Hyperparathyroidism, unspecified
CPT/HCPCS: 36415; 80053; 82306; 83690; 83970; 84443; 85025

== ENCOUNTER → 2022-12-21 | Outpatient (CLI) | payer MEDICARE, SELFPAY ==
--- NOTE | 2022-12-21 18:02 | CT_ITS ---
STUDY: CT ABDOMEN AND PELVIS WITHOUT CONTRAST REASON FOR EXAM: Female, 82 years old. recurrent upset stomach, diarrhea RADIATION DOSAGE (If Supplied By Facility): CTDIvol = ( 18.85 ) mGy, DLP = ( 890.24 ) mGycm TECHNIQUE: Transaxial images were obtained from the dome of the diaphragm to the symphysis pubis with oral contrast, and without intravenous contrast. Sagittal and coronal images were reconstructed. Individualized dose optimization techniques were used for this CT. COMPARISON: 07/09/2019 FINDINGS: The visualized lung bases are unremarkable. The visualized portions of the heart are within normal limits. Normal liver. Normal gallbladder and extrahepatic biliary system. Normal spleen. Normal pancreas. Normal bilateral adrenal glands. Nonrotated right kidney which is a normal variant. Normal left kidney. Normal visualized stomach. Normal small intestine. There are multiple colonic diverticula consistent with diverticulosis. The appendix is visualized and appears normal. There is diffuse atherosclerotic calcification of the abdominal aorta, without a demonstrated aneurysm. Normal inferior vena cava. Normal retroperitoneum. Normal urinary bladder. Normal abdominal wall. Moderate levoscoliosis lumbar spine with degenerative disc disease. Left femoral neck compression screw and intramedullary jovany. CT/Abdomen/Pel W ORAL Cont Only IMPRESSION: Sigmoid diverticulosis without diverticulitis. Electronically Signed: Rolando Leiva MD at 23:39 EDT ,
== END | disposition home or self-care (01) ==
LOC: CT 16:00
PROVIDERS: PCP Family Medicine; Referring Provider Family Medicine; Visit Provider Family Medicine
DX: R19.7 Diarrhea, unspecified (principal)
CPT/HCPCS: 74176

== ENCOUNTER 2023-01-15 16:19 | Emergency (ER) | payer MEDICARE, SELFPAY ==
[2023-01-15 16:20] VITALS: BP 140/54; PULSE 74; RESP 18; TEMP 36.6; O2SAT 100
--- NOTE | 2023-01-15 17:00 | RAD_ITS ---
INDICATION: SOB, bilateral lower extremity edema, dry cough EXAMINATION/TECHNIQUE: X-RAY - XR Chest 1 View COMPARISON: 05/08/2022 FINDINGS: LINES/DEVICES: Left axillary surgical clips. LUNGS: Emphysematous lungs. No consolidation, edema or effusion. No pneumothorax. MEDIASTINUM AND CARDIOVASCULAR STRUCTURES: Cardiac silhouette not enlarged. Central airways and mediastinal contour are unremarkable. RAD/Chest 1 View (Portable) IMPRESSION: Emphysema without radiographic evidence of acute cardiopulmonary disease. Electronically Signed: Kaden Solorzano MD at 17:19 EDT ,
--- NOTE | 2023-01-15 17:47 | EKG12_ITS ---
Test Reason : SOB Blood Pressure : / mmHG Vent. Rate : 066 BPM Atrial Rate : 066 BPM P-R Int : 190 ms QRS Dur : 096 ms QT Int : 432 ms P-R-T Axes : 005 -13 016 degrees QTc Int : 452 ms Normal sinus rhythm Inferior infarct , age undetermined Abnormal ECG Confirmed by EMILIE DEAN, ADRIAN ([id number]), development editor SANAM BOYKIN ([id number]) on 01/17/2023 8:55:34 AM Referred By: SHERMAN Confirmed By:ADRIAN PHAN MD
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
[2023-01-15 18:15] VITALS: BMI 39.7
[2023-01-15 18:17] VITALS: BP 150/59; PULSE 70; RESP 18; TEMP 36.6; O2SAT 100
[2023-01-15 18:19] VITALS: O2SAT 100
[2023-01-15 18:45] LABS: Absolute Lymphocyte Count 1.19 X10^3/uL (0.83-4.51); Absolute Neutrophil Count 4.3 X10^3/uL (2.0-7.7); Basophil# 0.03 X10^3/uL; Basophil% 0.5 % (0-1); Eosinophil# 0.08 X10^3/uL; Eosinophils% 1.2 % (0-5); Hematocrit 33.2 % (37-47); Hemoglobin 10.6 g/dL (12.0-15.0); Lymphocyte # 1.19 X10^3/ul (0.83-4.51); Lymphocyte % 18.6 % (19-41); Mean Corp Hgb Conc 31.9 g/dL (32-36); Mean Corpuscular Hgb 28.6 pg (27.0-32.0); Mean Corpuscular Volume 89.5 fL (81-99); Mean Platelet Vol. 10.2 fl (6.2-12.0); Monocyte# 0.76 X10^3/uL; Monocyte% 11.9 % (0-10); NRBC Flagged by Analyzer 0 % (0-5); Neutrophil # 4.33 X10^3/uL (2.7-7.7); Neutrophil % 67.5 % (47-70); Platelet Count 196 K/mm3 (150-450); RBC Distribution Width CV 14.2 % (11.6-14.6); RBC Distribution Width SD 46.5 fl (35.1-43.9); Red Blood Count 3.71 M/mm3 (4.2-5.4); White Blood Count 6.4 K/mm3 (4.4-11.0)
[2023-01-15 19:04] LABS: Anion Gap 6 (5-15); BUN 25 mg/dL (7-18); BUN/Creat Ratio 19.5 RATIO (10-20); Calcium,Total 8.9 mg/dL (8.5-10.1); Chloride 105 mmol/L (98-107); Creatinine, Serum 1.28 mg/dL (0.55-1.02); EST Glomerular Filtration Rate 42 mL/min (>60); Est Glom Filt Rate - Afr Amer 51 mL/min (>60); Glucose 96 mg/dL (74-106); Potassium 3.6 mmol/L (3.5-5.1); Sodium Level 140 mmol/L (136-145); Troponin-I HS 6 pg/mL (3.0-54.0)
[2023-01-15 19:08] LABS: BNP,B-Type NATRIURETIC PEPTIDE 147.5 pg/mL (0-100)
[2023-01-15] MEDS: Furosemide 100 MG/10 ML Vial 80 MG IV (20:09)
[2023-01-15 20:16] VITALS: BP 126/68; PULSE 79; RESP 18; O2SAT 98
[2023-01-15 20:43] LABS: D-Dimer Quantitative (DVT/PE) 1.09 FEU/ug/m (0.27-0.49)
--- NOTE | 2023-01-15 20:43 | CT_ITS ---
STUDY: CTA CHEST REASON FOR EXAM: Female, 82 years old. Dyspnea, elevated d-dimer RADIATION DOSAGE (If Supplied By Facility): CTDIvol = ( 11.43 ) mGy, DLP = ( 444.00 ) mGycm TECHNIQUE: The examination was performed with the intravenous administration of IV 100mL [id number]-370. Post-processing of the angiographic images was performed, with multiplanar reformation and 3D reconstruction. Individualized dose optimization techniques were used for this CT. COMPARISON: Same day chest x-ray FINDINGS: Normal enhancement of the main pulmonary artery and right and left pulmonary arteries. Normal enhancement of the bilateral peripheral pulmonary arteries. There is no demonstrated pulmonary embolism. Normal thoracic aorta and visualized great vessels. There is no demonstrated aortic dissection. Normal heart and pericardium. Normal mediastinum. Normal hilar regions. Normal visualized trachea and bronchi. The lungs are well expanded. Emphysematous lungs with bilateral dependent atelectasis. No focal consolidation. Normal pleura. The patient is status post left mastectomy. There are degenerative changes of thoracic spine. No acute abnormal finding in the visualized upper abdomen. CT/CTA Chest W/WO Contrast IMPRESSION: Emphysematous lungs with bilateral dependent atelectasis. No demonstrated pulmonary embolism or arterial dissection. Electronically Signed: Kaden Solorzano MD at 21:42 EDT ,
[2023-01-15] MEDS: Albuterol Sulfate 8 gm Inhaler (60 puffs) 2 PUFF INHALATION (22:36)
[2023-01-15 22:49] VITALS: BP 124/78
== END 2023-01-15 22:50 | disposition home or self-care (01) ==
PROVIDERS: Emergency Provider Emergency Medicine; PCP Family Medicine; Visit Provider Emergency Medicine
DX: R06.00 Dyspnea, unspecified (principal); I11.0 Hypertensive heart disease with heart failure; I50.9 Heart failure, unspecified; E78.2 Mixed hyperlipidemia; I25.10 Atherosclerotic heart disease of native coronary artery without angina pectoris; Z79.899 Other long term (current) drug therapy; K21.9 Gastro-esophageal reflux disease without esophagitis; Z86.73 Personal history of transient ischemic attack (TIA), and cerebral infarction without residual deficits; Z90.710 Acquired absence of both cervix and uterus
CPT/HCPCS: 71045; 71275; 80048; 83880; 84484; 85025; 85379; 87428; 93005; 94760; 96374; 99282; Q9967; J1940

== ENCOUNTER 2023-02-26 18:36 | Emergency (ER) | payer MEDICARE, SELFPAY ==
[2023-02-26 18:37] VITALS: BP 156/61; PULSE 76; RESP 18; TEMP 36.4; O2SAT 97
--- NOTE | 2023-02-26 18:47 | EKG12_ITS ---
Test Reason : DYSRHYTHMIA Blood Pressure : / mmHG Vent. Rate : 071 BPM Atrial Rate : 071 BPM P-R Int : 188 ms QRS Dur : 084 ms QT Int : 396 ms P-R-T Axes : 009 -11 021 degrees QTc Int : 430 ms Normal sinus rhythm Left ventricular hypertrophy with repolarization abnormality Abnormal ECG Confirmed by EMILIE DEAN, ADRIAN ([id number]), make up editor SANAM BOYKIN ([id number]) on 02/27/2023 11:05:16 AM Referred By: MILVIA Confirmed By:ADRIAN PHAN MD
[2023-02-26 19:00] VITALS: O2SAT 98; BMI 38.5
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
[2023-02-26] MEDS: Clindamycin HCl 150 MG Capsule 450 MG PO (20:30)
--- NOTE | 2023-02-26 20:59 | ED.RN ---
4 attempts [place] to insert iv. 2 w/US all failed and pt refused additional attempts. pt requested that MD just give me another antibiotic and send me home. dr nieto went in to talk to pt and they agreed upon a plan of care. 1 dose of abx give. pt dc'd with rx for new abx. assisted pt to personal vehicle in wheelchair.
== END 2023-02-26 21:04 | disposition home or self-care (01) ==
PROVIDERS: Emergency Provider Student in an Organized Health Care Education/Training Program; PCP Family Medicine; Visit Provider Student in an Organized Health Care Education/Training Program
DX: I89.0 Lymphedema, not elsewhere classified (principal); I50.42 Chronic combined systolic (congestive) and diastolic (congestive) heart failure; L03.90 Cellulitis, unspecified; I25.10 Atherosclerotic heart disease of native coronary artery without angina pectoris; I25.2 Old myocardial infarction; Z86.16 Personal history of COVID-19; Z86.73 Personal history of transient ischemic attack (TIA), and cerebral infarction without residual deficits
CPT/HCPCS: 93005; 99284; A4216

== ENCOUNTER 2023-03-17 15:40 | Inpatient (IN) | payer MEDICARE, SELFPAY ==
[2023-03-17] VITALS (9 sets, daily range): BP systolic 88–161; BP diastolic 39–100; PULSE 91–125; RESP 16–24; TEMP 36.4–37.7; O2SAT 86–99; BMI 38.2
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
[2023-03-17 16:42] LABS: Absolute Lymphocyte Count 0.37 X10^3/uL (0.83-4.51); Absolute Neutrophil Count 12.8 X10^3/uL (2.0-7.7); Basophil# 0.02 X10^3/uL; Basophil% 0.1 % (0-1); Hematocrit 33.7 % (37-47); Hemoglobin 11.4 g/dL (12.0-15.0); Lymphocyte # 0.37 X10^3/ul (0.83-4.51); Lymphocyte % 2.7 % (19-41); Mean Corp Hgb Conc 33.8 g/dL (32-36); Mean Corpuscular Hgb 29.3 pg (27.0-32.0); Mean Corpuscular Volume 86.6 fL (81-99); Mean Platelet Vol. 10.3 fl (6.2-12.0); Monocyte# 0.25 X10^3/uL; Monocyte% 1.9 % (0-10); NRBC Flagged by Analyzer 0 % (0-5); Neutrophil # 12.79 X10^3/uL (2.7-7.7); Neutrophil % 94.7 % (47-70); POSITIVE DIFFERENTIAL YES; Platelet Count 165 K/mm3 (150-450); RBC Distribution Width CV 13.7 % (11.6-14.6); RBC Distribution Width SD 43.7 fl (35.1-43.9); Red Blood Count 3.89 M/mm3 (4.2-5.4); White Blood Count 13.5 K/mm3 (4.4-11.0)
[2023-03-17 16:46] LABS: Differential Indicated SCAN CRITERIA MET
[2023-03-17 17:01] LABS: Differential Comment SCANNED
[2023-03-17 17:05] LABS: International Normalized Ratio 1.2; Prothrombin Time (Protime)PT. 15.5 SECONDS (11.7-14.9)
[2023-03-17 17:06] LABS: Partial Thromboplast Time 32.6 Seconds (24.1-36.2)
[2023-03-17 17:14] LABS: ALB/GLOB Ratio 0.6 RATIO (0.9-2.4); AST(SGOT) 20 U/L (15-37); Alanine Aminotransfer ALT/SGPT 16 U/L (13-56); Albumin, Serum 2.8 g/dL (3.2-5.0); Alkaline Phosphatase 82 U/L (45-117); Anion Gap 7 (5-15); BUN 27 mg/dL (7-18); BUN/Creat Ratio 17.6 RATIO (10-20); Calcium,Total 9.3 mg/dL (8.5-10.1); Chloride 104 mmol/L (98-107); Creatinine, Serum 1.53 mg/dL (0.55-1.02); EST Glomerular Filtration Rate 34 mL/min (>60); Est Glom Filt Rate - Afr Amer 42 mL/min (>60); Estimated Creatinine Clearance 37.16 ml/min; Glucose 126 mg/dL (74-106); Potassium 4.6 mmol/L (3.5-5.1); Protein, Total 7.8 g/dL (6.4-8.2); Sodium Level 132 mmol/L (136-145)
[2023-03-17 17:23] LABS: Lactic Acid 1.5 mmol/L (0.4-1.9)
[2023-03-17] MEDS: Ondansetron 4 MG/2 ML Vial IV (17:23)
--- NOTE | 2023-03-17 17:37 | NURSING ---
MED SURG TERELETSKY LEFT LEG CELLULITIS, CARDIAC DISEASE, RENAL INSUFFICIENCY
--- NOTE | 2023-03-17 18:57 | VDLE_ITS ---
Reason For Study: Bilateral leg pain RIGHT LEFT GSV is normal. GSV is normal. CFV is compressible, spontaneous, phasic, CFV appears patent with color. Normal venous competent and demonstrates normal flow noted with augmentation. augmentation. FV only visualized at mid with color. Appears FV is compressible, spontaneous, phasic, patent, normal venous flow noted with competent and demonstrates normal augmentation. augmentation. PTV distal appear patent with color. POP V is compressible, spontaneous, phasic, competent and demonstrates normal Patient unable to tolerate probe probe augmentation. pressure. Limited veiws obtained. T/P Trunk is compressible. PTV is compressible. RT PerV is compressible. Procedure This is a venous duplex using B-mode, color flow and spectral Doppler. Exam performed portable in patient room. The study was technically difficult. The study was technically limited. A preliminary report was called and/or faxed to [facility]. VL/Venous Duplex US - David Extrem Interpretation Summary Deep veins of the bilateral lower extremities are patent and compressible segme ntally. There is no evidence of bilateral lower extremity deep vein thrombosis. The bilateral great saphenous veins appear patent and compressible segmentally. Limited study on left due to patient ability to tolerate procedure Ordering Physician: Manuel Rivers Referring Physician: Jason Benitez MD Performed By: Tania Jara RVT
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
[2023-03-17] MEDS: 0.9% Normal Saline 1,000 ML 100 ML IV (19:12)
[2023-03-17] MEDS: Acetaminophen 325 MG Tablet 650 MG PO (19:13)
[2023-03-17] MEDS: oxyCODONE 5 MG Tablet PO (19:14)
[2023-03-17] MEDS: Nystatin Powder 15gm Bottle 1 APPLIC TOPICAL (21:46)
[2023-03-17] MEDS: Menthol/Lanolin/Calamine/Znox 113 GM Tube 1 APPLIC TOPICAL (21:46)
[2023-03-18 03:20] VITALS: BP 118/51; PULSE 92; RESP 18; TEMP 37; O2SAT 96
[2023-03-18] MEDS: 0.9% Normal Saline 1,000 ML 100 ML IV ×3 (04:49→22:21)
[2023-03-18] MEDS: Enoxaparin 80 MG/0.8 ML Syringe SC ×2 (06:12→18:14)
[2023-03-18 06:29] LABS: Absolute Lymphocyte Count 0.55 X10^3/uL (0.83-4.51); Absolute Neutrophil Count 13.5 X10^3/uL (2.0-7.7); Basophil# 0.03 X10^3/uL; Basophil% 0.2 % (0-1); Hematocrit 30.9 % (37-47); Hemoglobin 9.6 g/dL (12.0-15.0); Lymphocyte # 0.55 X10^3/ul (0.83-4.51); Lymphocyte % 3.7 % (19-41); Mean Corp Hgb Conc 31.1 g/dL (32-36); Mean Corpuscular Hgb 28.3 pg (27.0-32.0); Mean Corpuscular Volume 91.2 fL (81-99); Mean Platelet Vol. 10.4 fl (6.2-12.0); Monocyte# 0.68 X10^3/uL; Monocyte% 4.5 % (0-10); NRBC Flagged by Analyzer 0 % (0-5); Neutrophil # 13.47 X10^3/uL (2.7-7.7); Neutrophil % 89.5 % (47-70); POSITIVE DIFFERENTIAL YES; POSITIVE MORPHOLOGY YES; Platelet Count 133 K/mm3 (150-450); RBC Distribution Width CV 14.1 % (11.6-14.6); RBC Distribution Width SD 47.4 fl (35.1-43.9); Red Blood Count 3.39 M/mm3 (4.2-5.4)
[2023-03-18 06:45] LABS: Differential Indicated SCAN CRITERIA MET
[2023-03-18 07:02] LABS: Differential Comment SCANNED
[2023-03-18 07:15] LABS: Anion Gap 9 (5-15); BUN 26 mg/dL (7-18); BUN/Creat Ratio 19.1 RATIO (10-20); Calcium,Total 7.8 mg/dL (8.5-10.1); Chloride 110 mmol/L (98-107); Creatinine, Serum 1.36 mg/dL (0.55-1.02); EST Glomerular Filtration Rate 39 mL/min (>60); Est Glom Filt Rate - Afr Amer 48 mL/min (>60); Estimated Creatinine Clearance 41.81 ml/min; Glucose 78 mg/dL (74-106); Potassium 4.6 mmol/L (3.5-5.1); Sodium Level 139 mmol/L (136-145)
--- NOTE | 2023-03-18 07:35 | PCM.PN.HOSP ---
Reason for Visit Reason for Visit: Diagnoses Cellulitis of left lower limb (03/17/23) Subjective Subjective Patient is an 82-year-old lady admitted with left lower extremity redness and warmth and assessment of cellulitis made admitted to regular nursing floor for further management Objective Data Objective Data Vital Signs: Vital Signs Temp Pulse Resp BP Pulse Ox O2 Del Method O2 Flow Rate 98.6 F 92 18 118/51 L 96 Room Air 2 03/18/23 03:20 03/18/23 03:20 03/18/23 03:20 03/18/23 03:20 03/18/23 03:20 03/18/23 03:31 03/17/23 21:58 FiO2 96 03/18/23 03:31 Oxygen Flow Rate (L/min) 2 Oxygen Delivery Method Room Air Weight: 86 kg Body Mass Index (BMI) 38.2 Intake & Output: Intake and Output for Last 24 Hours 03/16/23 03/17/23 03/18/23 23:59 23:59 23:59 Intake Total 662 / 662 1161.67 / 1161.67 Balance 662 / 662 1161.67 / 1161.67 Lab / Micro Data 03/18/23 05:40 03/18/23 05:40 Labs: Laboratory Results - last 24 hr 03/17/23 16:35: WBC 13.5 H, RBC 3.89 L, Hgb 11.4 L, Hct 33.7 L, MCV 86.6, MCH 29.3, MCHC 33.8, RDW Std Deviation 43.7, RDW Coeff of [place] 13.7, Plt Count 165, MPV 10.3, Immature Gran % (Auto) 0.600, Neut % (Auto) 94.7 H, Lymph % (Auto) 2.7 L, [place] % (Auto) 1.9, Eos % (Auto) 0.0, Baso % (Auto) 0.1, Absolute Neuts (auto) 12.8 H, Absolute Lymphs (auto) 0.37 L, Nucleated RBC % 0, Differential Comment SCANNED, Sodium 132 L, Potassium 4.6, Chloride 104, Carbon Dioxide 21.0, Anion Gap 7, BUN 27 H, Creatinine 1.53 H, Estim Creat Clear Calc 37.16, Est GFR (MDRD) Af Amer 42 L, Est GFR (MDRD) Non-Af 34 L, BUN/Creatinine Ratio 17.6, Glucose 126 H, Calcium 9.3, Total Bilirubin 0.60, AST 20, ALT 16, Alkaline Phosphatase 82, Total Protein 7.8, Albumin 2.8 L, Globulin 5.0 H, Albumin/Globulin Ratio 0.6 L 03/17/23 16:45: PT 15.5 H, INR 1.2, APTT 32.6, Lactic Acid 1.5 03/18/23 05:40: WBC 15.0 H, RBC 3.39 L, Hgb 9.6 L, Hct 30.9 L, MCV 91.2 D, MCH 28.3, MCHC 31.1 L D, RDW Std Deviation 47.4 H, RDW Coeff of [place] 14.1, Plt Count 133 L, MPV 10.4, Immature Gran % (Auto) 2.100 H, Neut % (Auto) 89.5 H, Lymph % (Auto) 3.7 L, [place] % (Auto) 4.5, Eos % (Auto) 0.0, Baso % (Auto) 0.2, Absolute Neuts (auto) 13.5 H, Absolute Lymphs (auto) 0.55 L, Nucleated RBC % 0, Differential Comment SCANNED, Sodium 139, Potassium 4.6, Chloride 110 H, Carbon Dioxide 20.0 L, Anion Gap 9, BUN 26 H, Creatinine 1.36 H, Estim Creat Clear Calc 41.81, Est GFR (MDRD) Af Amer 48 L, Est GFR (MDRD) Non-Af 39 L, BUN/Creatinine Ratio 19.1, Glucose 78, Calcium 7.8 L Physical Exam Narrative GENERAL: cooperative HEENT: Atraumatic; normocephalic EYES; Anicteric, Normal Conjunctiva NECK; supple, normal thyroid, RESPIRATORY: Diminished to auscultation CARDIOVASCULAR: Regular S1 S2, GI: soft, normoactive bowel sounds, : No Renal angle tenderness; EXTREMITIES: Significant area of erythema and swelling involving the left lower extremity MUSCULOSKELETAL: no muscle wasting NEURO: Awake; no lateralizing signs. SKIN: Described above PSYCH; Flat affect Assessment & Plan Assessment/Plan (1) Cellulitis of left leg: PLAN: Plan Patient is an 82-year-old lady admitted with left lower extremity redness and warmth and assessment of cellulitis made admitted to regular nursing floor for further management 1. Cellulitis of the left lower extremity ? Patient started on Rocephin we will consult placed to wound care nurse. 2. Lymphedema involving both lower extremities ? Wound care nurse consulted 3. Hypertension - Blood pressure controlled, home medications continued with dose adjustment as needed 4. Nonischemic cardiomyopathy ? Echo from October 23, 2021 demonstrated EF of 50% 5. Chronic kidney disease stage IIIb ? Kidney function at baseline 7. Coronary artery disease ? Currently stable 8. Class II obesity with BMI of 38 Complicating care weight loss advised 9. DVT prophylaxis SC Lovenox Time spent in the patient's overall evaluation,decision-making process, review of diagnostic data, adjustment of management, discussion with other providers, nursing nursing and ancillary staff involved in patient's care documentation, 50 Minutes Charges/Coding Visit Charges Inpatient E&M: 07652 [facility] Hosp L3
[2023-03-18 08:37] VITALS: PULSE 91
[2023-03-18 08:43] VITALS: BP 111/56; PULSE 91; RESP 18; TEMP 37.2; O2SAT 95
[2023-03-18] MEDS: Morphine 4 MG/ML Syringe IV (09:58)
[2023-03-18] MEDS: Menthol/Lanolin/Calamine/Znox 113 GM Tube 1 APPLIC TOPICAL ×2 (09:59→22:21)
[2023-03-18] MEDS: Nystatin Powder 15gm Bottle 1 APPLIC TOPICAL ×2 (10:00→22:22)
[2023-03-18] MEDS: Carvedilol 6.25 MG Tablet PO ×2 (10:04→18:14)
--- NOTE | 2023-03-18 11:15 | WOUNDNOTE ---
skin photo: left lower leg
--- NOTE | 2023-03-18 11:16 | WOUNDNOTE ---
skin photo: left posterolateral lower leg
--- NOTE | 2023-03-18 11:17 | WOUNDNOTE ---
skin photo: right lower leg
--- NOTE | 2023-03-18 11:20 | CASEMGMT ---
IRAM WHALEY Assessment: Face to Face with pt for initial transition planning/care coordination assessment. IRAM WHALEY introduced self and role at [facility], pt voices understanding and consents to assessment. Pt is A/O x4 and answers all questions appropriately at this time. Pt lying in bed in no distress. Care providers, pharmacy, and demographics verified/updated. Admitting Dx: cellulitis PCP:Emmanuel Specialists:[facility], cardio; Pt sees Prerna Bonds at [facility] specialty center in [place] weekly for lymphedema care. Preferred Pharmacy: [facility] Insurance: [employer] Prescription Benefit: yes LNOK: Anson Baxter, nephew; leonard Bullard Living Arrangements: Pt lives alone in a two story home with 4 steps to enter with a rail. Pt does not use second level. Pt reports she sponge bathes herself and is able to dress herself. She states sometimes Patrizia assists her. 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 Patrizia takes pt to laundromat and she does her own laundry there. Transportation: leonard Acharya transports pt to medical appts, grocery store and for business appts. DME/HHC/SNF: Pt has a cane that she uses, a walker and shower chair. Pt has her cg 3-4x/wk. She has also had HHC in the past but is unsure of which agency this was from. Pt denies SNF stays and states I'd rather than go to a half-way. Pt states no concerns with going home at time of dc. Pt states no further concerns/needs. CM to follow. Advised pt to ask CM if any further question/concerns/needs arise, voices understanding. Pt Goal: Home with help of Patrizia and going to [facility] specialty center for lymphedema Plan: Home with help of Patrizia and going to [facility] specialty center for lymphedema, pending therapy darcy
[2023-03-18] MEDS: Acetaminophen 325 MG Tablet 650 MG PO (12:20)
[2023-03-18] MEDS: oxyCODONE 5 MG Tablet PO (12:20)
[2023-03-18 18:00] VITALS: PULSE 90
[2023-03-18] MEDS: Juven (unflavored) Packet 1 PACKET PO (18:13)
[2023-03-18 20:02] VITALS: BP 104/53; PULSE 80; RESP 16; TEMP 37.2; O2SAT 97
[2023-03-19 02:40] VITALS: BP 124/53; PULSE 91; RESP 18; TEMP 36.6; O2SAT 97
[2023-03-19] MEDS: Enoxaparin 80 MG/0.8 ML Syringe SC (05:31)
[2023-03-19 06:10] LABS: Hematocrit 29.9 % (37-47); Hemoglobin 9.5 g/dL (12.0-15.0); Mean Corp Hgb Conc 31.8 g/dL (32-36); Mean Corpuscular Volume 91.2 fL (81-99); Mean Platelet Vol. 10.7 fl (6.2-12.0); POSITIVE COUNT YES; POSITIVE DIFFERENTIAL YES; POSITIVE MORPHOLOGY YES; Platelet Count 136 K/mm3 (150-450); RBC Distribution Width CV 14.2 % (11.6-14.6); Red Blood Count 3.28 M/mm3 (4.2-5.4); White Blood Count 13.1 K/mm3 (4.4-11.0)
[2023-03-19 06:11] LABS: Differential Indicated MANUAL DIFF
[2023-03-19 06:30] LABS: Anion Gap 3 (5-15); BUN 26 mg/dL (7-18); BUN/Creat Ratio 20.3 RATIO (10-20); Calcium,Total 7.8 mg/dL (8.5-10.1); Chloride 110 mmol/L (98-107); Creatinine, Serum 1.28 mg/dL (0.55-1.02); EST Glomerular Filtration Rate 42 mL/min (>60); Est Glom Filt Rate - Afr Amer 51 mL/min (>60); Estimated Creatinine Clearance 44.42 ml/min; Glucose 92 mg/dL (74-106); Potassium 3.6 mmol/L (3.5-5.1); Sodium Level 138 mmol/L (136-145)
[2023-03-19 06:34] LABS: Platelet Estimate SLT DEC (ADEQ); Red Cell Morphology NORM C+C NORMAL (NORM C&C)
[2023-03-19] MEDS: Acetaminophen 325 MG Tablet 650 MG PO (06:35)
[2023-03-19] MEDS: oxyCODONE 5 MG Tablet PO (06:35)
[2023-03-19 06:38] LABS: Absolute Neutrophil Count 10.9 X10^3/uL (2.0-7.7); Lymphocyte 12 % (19-41)
[2023-03-19 06:39] LABS: Absolute Lymphocyte Count 1.57 X10^3/uL (0.83-4.51); Monocyte 4 % (0-10); Myelocyte 1 % (0-0); Neutrophil-Band 15 % (0-5); Neutrophil-Segmented 68 % (47-70); Total Cells Counted 100 (MANUAL DIFF)
--- NOTE | 2023-03-19 07:26 | PN.HOSP_ITS ---
Reason for Visit Reason for Visit: Diagnoses Cellulitis of left lower limb (03/17/23) Subjective Subjective Patient seen WBC count trending down. Case discussed with him wound care patient improving clinically. Plan is for patient to be discharged home with p.o. antibiotics as well as home health Objective Data Objective Data Vital Signs: Vital Signs Temp Pulse Resp BP Pulse Ox O2 Del Method O2 Flow Rate 97.8 F 91 18 124/53 H 97 Room Air 2 03/19/23 02:40 03/19/23 02:40 03/19/23 02:40 03/19/23 02:40 03/19/23 02:40 03/19/23 02:40 03/17/23 21:58 FiO2 96 03/18/23 03:31 Oxygen Flow Rate (L/min) 2 Oxygen Delivery Method Room Air Weight: 86 kg Body Mass Index (BMI) 38.2 Intake & Output: Intake and Output for Last 24 Hours 03/17/23 03/18/23 03/19/23 23:59 23:59 23:59 Intake Total 662 / 662 5072.67 / 5472.67 540 / 540 Output Total 1000 / 1450 650 / 650 Balance 662 / 662 4072.67 / 4022.67 -110 / -110 Lab / Micro Data 03/19/23 05:24 03/19/23 05:24 Labs: Laboratory Results - last 24 hr 03/19/23 05:24: WBC 13.1 H, RBC 3.28 L, Hgb 9.5 L, Hct 29.9 L, MCV 91.2, MCH 29.0, MCHC 31.8 L, RDW Std Deviation 48.0 H, RDW Coeff of [place] 14.2, Plt Count 136 L, MPV 10.7, Neut % (Auto) Not Reportable, Absolute Neuts (auto) 10.9 H, A bsolute Lymphs (auto) 1.57, Total Counted 100, Neutrophils % (Manual) 68, Band Neutrophils % 15 H, Lymphocytes % (Manual) 12 L, Monocytes % (Manual) 4, Myelocytes % 1 H, Diff Path Review December, Platelet Estimate SLT DEC, RBC Mor phology NORM C+C, Sodium 138, Potassium 3.6, Chloride 110 H, Carbon Dioxide 2 5.0, Anion Gap 3 L, BUN 26 H, Creatinine 1.28 H, Estim Creat Clear Calc 44.42, Est GFR (MDRD) Af Amer 51 L, Est GFR (MDRD) Non-Af 42 L, BUN/Creatinine Ratio 20.3 H, Glucose 92, Calcium 7.8 L, Phosphorus 2.0 L, Magnesium 2.0 Physical Exam Narrative GENERAL: cooperative HEENT: Atraumatic; normocephalic EYES; Anicteric, Normal Conjunctiva NECK; supple, normal thyroid, RESPIRATORY: Diminished to auscultation CARDIOVASCULAR: Regular S1 S2, GI: soft, normoactive bowel sounds, : No Renal angle tenderness; EXTREMITIES: Significant area of erythema and swelling involving the left lower extremity MUSCULOSKELETAL: no muscle wasting NEURO: Awake; no lateralizing signs. SKIN: Described above PSYCH; Flat affect Assessment & Plan Assessment/Plan (1) Cellulitis of left leg: PLAN: Plan Patient is an 82-year-old lady admitted with left lower extremity redness and warmth and assessment of cellulitis made admitted to regular nursing floor for further management 1. Cellulitis of the left lower extremity ? Patient started on Rocephin we will consult placed to wound care nurse. 2. Lymphedema involving both lower extremities ? Wound care nurse consulted 3. Hypertension - Blood pressure controlled, home medications continued with dose adjustment as needed 4. Nonischemic cardiomyopathy ? Echo from October 23, 2021 demonstrated EF of 50% 5. Chronic kidney disease stage IIIb ? Kidney function at baseline 7. Coronary artery disease ? Currently stable 8. Class II obesity with BMI of 38 Complicating care weight loss advised 9. DVT prophylaxis SC Lovenox Time spent in the patient's overall evaluation,decision-making process, review of diagnostic data, adjustment of management, discussion with other providers, n ursing nursing and ancillary staff involved in patient's care documentation, 35 minutes minutes Charges/Coding Visit Charges Inpatient E&M: 97717 Subs Hosp L2
[2023-03-19] MEDS: Juven (unflavored) Packet 1 PACKET PO (08:01)
[2023-03-19] MEDS: Nystatin Powder 15gm Bottle 1 APPLIC TOPICAL (08:01)
[2023-03-19] MEDS: Carvedilol 6.25 MG Tablet PO (08:01)
[2023-03-19] MEDS: 0.9% Normal Saline 1,000 ML 100 ML IV (08:02)
[2023-03-19] MEDS: Menthol/Lanolin/Calamine/Znox 113 GM Tube 1 APPLIC TOPICAL (08:02)
[2023-03-19 08:30] VITALS: BP 127/57; PULSE 91; RESP 18; TEMP 36.7; O2SAT 94
--- NOTE | 2023-03-19 11:33 | PCM.DC.SUM ---
Providers Date of Admission: 03/17/23 Date of Discharge: 03/19/23 Primary Care Physician: Dr. Jason Benitez MD Consultations 03/17/23 19:18 Consult: Onc/Wound/corrugator operator helper Routine Comment: Reason for Consult:: lymphedema Reason For Visit: CELLULITIS Diagnosis Discharge Diagnosis (1) Cellulitis of left leg: Status: Acute Code(s): L03.116 - Cellulitis of left lower limb Plan Patient is an 82-year-old lady admitted with left lower extremity redness and warmth and assessment of cellulitis made admitted to regular nursing floor for further management 1. Cellulitis of the left lower extremity ? Patient started on Rocephin we will consult placed to wound care nurse. 2. Lymphedema involving both lower extremities ? Wound care nurse consulted 3. Hypertension - Blood pressure controlled, home medications continued with dose adjustment as needed 4. Nonischemic cardiomyopathy ? Echo from October 23, 2021 demonstrated EF of 50% 5. Chronic kidney disease stage IIIb ? Kidney function at baseline 7. Coronary artery disease ? Currently stable 8. Class II obesity with BMI of 38 Complicating care weight loss advised 9. DVT prophylaxis SC Lovenox Time spent in the patient's overall evaluation,decision-making process, review of diagnostic data, adjustment of management, discussion with other providers, nursing nursing and ancillary staff involved in patient's care documentation, 35 minutes minutes Medications at Discharge Home Medications cholecalciferol (vitamin D3) 25 mcg (1,000 unit) capsule 2,000 unit PO DAILY supplement 08/12/17 pantoprazole 40 mg tablet,delayed release (Protonix) 40 mg PO DAILY reflux 07/01/18 potassium chloride 20 mEq tablet,extended release(part/cryst) 20 meq PO DAILY supplement #30 tabs 04/28/21 atorvastatin 40 mg tablet 40 mg PO QHS CHOLESTEROL 90 days #90 tabs 02/28/22 furosemide 40 mg tablet 40 mg PO DAILY swelling 05/16/22 carvedilol 6.25 mg tablet 6.25 mg PO BID HTN #180 tabs 11/27/22 lisinopril 20 mg tablet 20 mg PO BID HTN #180 tabs 11/27/22 clindamycin HCl 150 mg capsule 450 mg (3 x 150 mg) PO TID CELLULITIS 7 days #63 caps 02/26/23 dapagliflozin propanediol 10 mg tablet (Farxiga) 10 mg PO DAILY BLOOD SUGAR #30 tabs 03/12/23 dapagliflozin propanediol 10 mg tablet (Farxiga) 10 mg PO DAILY DIABETES 03/17/23 doxycycline hyclate 100 mg tablet 100 mg PO BID INFECTION 03/17/23 triamcinolone acetonide 0.1 % topical cream 1 applic topical BID REDNESS 03/17/23 cefdinir 300 mg capsule 300 mg PO Q12H #10 caps 03/19/23 Hospital Course Summary of Care Provided Minutes Spent on Discharge: 35 Physical Exam Narrative GENERAL: cooperative HEENT: Atraumatic; normocephalic EYES; Anicteric, Normal Conjunctiva NECK; supple, normal thyroid, RESPIRATORY: Diminished to auscultation CARDIOVASCULAR: Regular S1 S2, GI: soft, normoactive bowel sounds, : No Renal angle tenderness; EXTREMITIES: Significant area of erythema and swelling involving the left lower extremity MUSCULOSKELETAL: no muscle wasting NEURO: Awake; no lateralizing signs. SKIN: Described above PSYCH; Flat affect Weight / BMI Weight Weight: 86 kg Body Mass Index (BMI) 38.2 ABG / Lab / Microbiology Data 03/19/23 05:24 03/19/23 05:24 Laboratory: Laboratory Results - last 24 hr 03/19/23 05:24: WBC 13.1 H, RBC 3.28 L, Hgb 9.5 L, Hct 29.9 L, MCV 91.2, MCH 29.0, MCHC 31.8 L, RDW Std Deviation 48.0 H, RDW Coeff of [place] 14.2, Plt Count 136 L, MPV 10.7, Neut % (Auto) Not Reportable, Absolute Neuts (auto) 10.9 H, Absolute Lymphs (auto) 1.57, Total Counted 100, Neutrophils % (Manual) 68, Band Neutrophils % 15 H, Lymphocytes % (Manual) 12 L, Monocytes % (Manual) 4, Myelocytes % 1 H, Diff Path Review December, Platelet Estimate SLT DEC, RBC Morphology NORM C+C, Sodium 138, Potassium 3.6, Chloride 110 H, Carbon Dioxide 25.0, Anion Gap 3 L, BUN 26 H, Creatinine 1.28 H, Estim Creat Clear Calc 44.42, Est GFR (MDRD) Af Amer 51 L, Est GFR (MDRD) Non-Af 42 L, BUN/Creatinine Ratio 20.3 H, Glucose 92, Calcium 7.8 L, Phosphorus 2.0 L, Magnesium 2.0 D/C Instructions Discharge Diet: No restrictions Discharge Activity: Return to Normal Activity Call your doctor if you observe: Fever of 101 or Higher, Shortness of breath, Fainting spells and Chest pain Meaningful Use Info Meaningful Use Diagnoses (Choose all that apply): None applicable Discharge Plan Admission Admit Date/Time: 03/17/23 17:36 Attending Provider: Armand Bob Primary Care Provider: Jason Benitez Consulting Providers: Manuel Rivers Discharge Orders/Prescriptions Prescriptions: New cefdinir 300 mg capsule 300 mg PO Q12H Qty: 10 0RF Continued pantoprazole [Protonix] 40 mg tablet,delayed release (DR/EC) 40 mg PO DAILY potassium chloride 20 mEq tablet,ER particles/crystals 20 meq PO DAILY Qty: 30 Patient Comments: TAKE 1 TABLET BY MOUTH DAILY atorvastatin 40 mg tablet 40 mg PO QHS 90 Days Qty: 90 3RF furosemide 40 mg tablet 40 mg PO DAILY carvedilol 6.25 mg tablet 6.25 mg PO BID Qty: 180 3RF Rx Instructions: must administer with a meal/food lisinopril 20 mg tablet 20 mg PO BID Qty: 180 3RF Farxiga 10 mg tablet 10 mg PO DAILY Qty: 30 11RF cholecalciferol (vitamin D3) 1,000 UNIT capsule 2,000 unit PO DAILY Farxiga 10 mg tablet 10 mg PO DAILY doxycycline hyclate 100 mg tablet 100 mg PO BID Patient Comments: take 1 Tablet by mouth two times daily] triamcinolone acetonide 0.1 % cream 1 applic TOPICAL BID clindamycin HCl 150 mg capsule 450 mg PO TID 7 Days Qty: 63 0RF Referrals / Follow Up: Jason Benitez MD [Primary Care Provider] - In 1 Week Disposition Disposition (needs filled in before D/C Order can be placed): Home Health Service Charges/Coding Visit Charges Inpatient E&M: 88985 Disch Hosp >30min
--- NOTE | 2023-03-19 15:20 | PHA.DC_ITS ---
Pharmacy [facility] Service has performed discharge medication reconciliation and counseling for this patient. Per patient, no longer taking doxycycline or clindamycin. 1. CEFDINIR 300MG PO Q12 X 5 DAYS The patient's discharge medication list was reviewed for discrepancies and discrepancies were resolved. The patient was counseled on the following discharge medications and changes in medications for homegoing were reviewed. The Reason for Use, instructions for use, and potential side effects were reviewed for all new medications. The patient's questions regarding all of their medications were answered. The patient was able to verbally demonstrate an understanding of their discharge medications. Patient counseled by retail pharmacy manager, Zay. Medications at Discharge Home Medications cholecalciferol (vitamin D3) 25 mcg (1,000 unit) capsule 2,000 unit PO DAILY martinez pplement 08/12/17 pantoprazole 40 mg tablet,delayed release (Protonix) 40 mg PO DAILY reflux 07/01/18 potassium chloride 20 mEq tablet,extended release(part/cryst) 20 meq PO DAILY supplement #30 tabs 04/28/21 atorvastatin 40 mg tablet 40 mg PO QHS CHOLESTEROL 90 days #90 tabs 02/28/22 furosemide 40 mg tablet 40 mg PO DAILY swelling 05/16/22 carvedilol 6.25 mg tablet 6.25 mg PO BID HTN #180 tabs 11/27/22 lisinopril 20 mg tablet 20 mg PO BID HTN #180 tabs 11/27/22 clindamycin HCl 150 mg capsule 450 mg (3 x 150 mg) PO TID CELLULITIS 7 days #63 caps 02/26/23 dapagliflozin propanediol 10 mg tablet (Farxiga) 10 mg PO DAILY BLOOD SUGAR #30 tabs 03/12/23 dapagliflozin propanediol 10 mg tablet (Farxiga) 10 mg PO DAILY DIABETES 03/17/23 doxycycline hyclate 100 mg tablet 100 mg PO BID INFECTION 03/17/23 triamcinolone acetonide 0.1 % topical cream 1 applic topical BID REDNESS 03/17/23 cefdinir 300 mg capsule 300 mg PO Q12H #10 caps 03/19/23
[2023-03-19 15:45] VITALS: BP 162/81; PULSE 102; RESP 20; TEMP 36.6; O2SAT 98
[2023-03-19 17:00] VITALS: BP 129/47; PULSE 100; RESP 18; TEMP 36.6; O2SAT 100
[2023-03-20 10:12] LABS: Pathologist Review Reviewed
--- NOTE | 2023-03-21 11:31 | CASEMGMT ---
Addendum entered by Disha Parrish 03/25/23 10:48: TC to Prerna Bonds at [facility] outpt, she states she is only seeing pt for lymphedema care and pt has transportation issues to see her for strengthening which would require more than 1x/wk. TC to pt phone, no answer. TC to Patrizia, cg, pt is still staying with her. Patrizia spoke with pt while RN CM on phone, pt did have a telehealth visit with . Pt reports she would like [facility]. She is aware that this RN CM will make referral and call her back. She prefers RN CM call Patrizia's phone. TC to [facility], left vm with referral, will await decision on acceptance. Pt will be staying at [address] [place], [place] [id number]. Addendum entered by Disha Parrish 03/21/23 14:50: Pt deisy Griggs came in to question where [facility] is coming from. Made him aware that pt is receiving outpt therapy services and she cannot have outpt and home therapy services concurrently. He states pt is staying at [facility]'s home in [place] for now. He is also aware that pt would need to see before any HHC could come out. He is going to go meet with pt. TC to pt, she states she wants to continue at the [facility] Specialty building. Spoke with Patrizia per pt request to make aware that of the above as well. Pt had an appt with Dr. Benitez at 2:30pm today and pt cancelled. Patrizia will call to see if pt can reschedule the appt soon. TC to specialty building, spoke with Keyonna who confirms pt is receiving outpt PT services for lymphedema. Asked if pt could also receive therapy services for strengthening. Prerna was sent a message as she will not be back in the office until tomorrow. TC back to Patrizai, left message to call this RN CM back. Original Note: Received notification that pt child welfare caseworker from insurance called in questioning if pt was set up with [facility] services. TC to Melva at [phone], left message to make aware that pt plan was to return home with assistance of Patrizia and returning for lymphedema care at [facility]. Left call back information and requested tc back.
--- NOTE | 2023-03-25 14:07 | CASEMGMT ---
TC back from Arlen at [facility], she states pt cannot have outpt PT services from [facility] Zhanna although they cannot provide the same service in the home. TC to Patrizia to make pt aware, left message requesting tc back to make aware if pt wants to continue her lymphedema services or have HHC. Will await returned call.
--- NOTE | 2023-03-26 15:28 | CASEMGMT ---
TC to Patrizia per request yesterday regarding decision of HHC or outpt therapy, left message requesting returned call.
== END 2023-03-19 17:19 | disposition home health service (06) | DRG 603 ==
LOC: ED 17:39 → MS3 18:00
PROVIDERS: Admitting Provider Internal Medicine; Emergency Provider Emergency Medicine; PCP Family Medicine; Visit Provider Internal Medicine
DX: L03.116 Cellulitis of left lower limb (principal); D69.3 Immune thrombocytopenic purpura; I42.8 Other cardiomyopathies; I13.0 Hypertensive heart and chronic kidney disease with heart failure and stage 1 through stage 4 chronic kidney disease, or unspecified chronic kidney disease; I50.42 Chronic combined systolic (congestive) and diastolic (congestive) heart failure; N18.32 Chronic kidney disease, stage 3b; E78.2 Mixed hyperlipidemia; I89.0 Lymphedema, not elsewhere classified; I25.10 Atherosclerotic heart disease of native coronary artery without angina pectoris; I25.2 Old myocardial infarction; R53.81 Other malaise; E66.9 Obesity, unspecified; Z68.38 Body mass index [BMI] 38.0-38.9, adult; Z79.82 Long term (current) use of aspirin; Z79.899 Other long term (current) drug therapy; Z86.16 Personal history of COVID-19
CPT/HCPCS: 36415; 80048; 80053; 83605; 83735; 84100; 85025; 85610; 85730; 87040; 93970; 97162; 97166; 97802; 99285; J7030; J7040; A4216; J0295; J0696; J2405

== ENCOUNTER 2023-04-04 19:31 | Emergency (ER) | payer MEDICARE, SELFPAY ==
[2023-04-04 19:32] VITALS: BP 154/66; PULSE 109; RESP 18; TEMP 36.3; O2SAT 100
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
[2023-04-04 20:02] VITALS: BMI 38.5
--- NOTE | 2023-04-04 20:50 | RAD_ITS ---
INDICATION: Injury/Pain EXAMINATION/TECHNIQUE: X-RAY - LEFT XR Foot Min 3 Views 3 VIEWS COMPARISON: FINDINGS: No acute fracture or dislocation. No destructive bone changes. Joint spaces are well-maintained. Normal alignment. Marked dorsal soft tissue swelling. No radiopaque foreign body or soft tissue gas. RAD/Foot min 3 Views IMPRESSION: Soft tissue swelling. No osseous abnormality. Electronically Signed: Traci Guevara MD at 21:00 EDT Reading Location ID and State: [id number] / Tel , Service support ,
[2023-04-04 20:51] LABS: Absolute Neutrophil Count 4.5 X10^3/uL (2.0-7.7); Basophil# 0.05 X10^3/uL; Basophil% 0.8 % (0-1); Eosinophils% 1.5 % (0-5); Hematocrit 31.4 % (37-47); Hemoglobin 9.7 g/dL (12.0-15.0); Lymphocyte % 16.8 % (19-41); Mean Corp Hgb Conc 30.9 g/dL (32-36); Mean Corpuscular Hgb 28.4 pg (27.0-32.0); Mean Corpuscular Volume 91.8 fL (81-99); Mean Platelet Vol. 9.7 fl (6.2-12.0); Monocyte# 0.77 X10^3/uL; Monocyte% 11.8 % (0-10); NRBC Flagged by Analyzer 0 % (0-5); Neutrophil # 4.46 X10^3/uL (2.7-7.7); Platelet Count 332 K/mm3 (150-450); RBC Distribution Width CV 14.5 % (11.6-14.6); RBC Distribution Width SD 48.9 fl (35.1-43.9); Red Blood Count 3.42 M/mm3 (4.2-5.4); White Blood Count 6.6 K/mm3 (4.4-11.0)
[2023-04-04 21:11] LABS: Anion Gap 8 (5-15); BUN 13 mg/dL (7-18); BUN/Creat Ratio 9.5 RATIO (10-20); Calcium,Total 9.4 mg/dL (8.5-10.1); Chloride 105 mmol/L (98-107); Creatinine, Serum 1.37 mg/dL (0.55-1.02); EST Glomerular Filtration Rate 39 mL/min (>60); Est Glom Filt Rate - Afr Amer 47 mL/min (>60); Glucose 95 mg/dL (74-106); Potassium 4.1 mmol/L (3.5-5.1); Sodium Level 137 mmol/L (136-145)
[2023-04-04 22:00] VITALS: BP 156/77; PULSE 106; RESP 20
--- NOTE | 2023-04-04 23:34 | CM.ED ---
Social Work SW introduced self and role to patient and niece/nephew. Pt has been hospitalized recently and having difficulty walking due to foot pain. SW discussed patient needs and patient reports she is able to function in her own home and does not need assistance. Family had mentioned to doctor that patient needs more care. SW asked patient's family if they had any concerns regarding the patient and they denied. Pt reports she is able to care for self at home, has a cousin who brings her food and a caregiver that assists her which is an [employer] SAL[employer] NETWORK ENGINEER. Pt still under medical review, however; SW unable to identify needs for patient at this time. Hollie Adam RESPIRATORY CARE TECHNICIAN, PLANNING MANAGEMENT IT SPECIALIST
[2023-04-05 00:46] VITALS: BP 140/61; PULSE 97
== END 2023-04-05 01:09 | disposition home or self-care (01) ==
PROVIDERS: Emergency Provider Emergency Medicine; PCP Family Medicine; Visit Provider Emergency Medicine
DX: M79.672 Pain in left foot (principal); I13.0 Hypertensive heart and chronic kidney disease with heart failure and stage 1 through stage 4 chronic kidney disease, or unspecified chronic kidney disease; I50.42 Chronic combined systolic (congestive) and diastolic (congestive) heart failure; I42.8 Other cardiomyopathies; I25.10 Atherosclerotic heart disease of native coronary artery without angina pectoris; N18.9 Chronic kidney disease, unspecified; E78.2 Mixed hyperlipidemia; I25.2 Old myocardial infarction; E66.9 Obesity, unspecified; K21.9 Gastro-esophageal reflux disease without esophagitis; Z79.899 Other long term (current) drug therapy; Z86.16 Personal history of COVID-19; Z86.73 Personal history of transient ischemic attack (TIA), and cerebral infarction without residual deficits
CPT/HCPCS: 73630; 80048; 85025; 99285; A4216

== ENCOUNTER 2023-04-05 14:23 | Emergency (ER) | payer MEDICARE, SELFPAY ==
[2023-04-05 14:24] VITALS: BP 106/93; PULSE 114; RESP 20; TEMP 35.7; O2SAT 98
--- NOTE | 2023-04-05 17:48 | ED.RN ---
PT STATES SHE IS LEAVING, WHEELED OUT OF DEPT BY FAMILY
== END 2023-04-05 17:28 | disposition left against medical advice (07) ==
LOC: ED 17:55
PROVIDERS: PCP Family Medicine
DX: Z53.21 Procedure and treatment not carried out due to patient leaving prior to being seen by health care provider (principal)

== ENCOUNTER 2023-04-15 08:47 | Observation (INO) | payer MEDICARE, SELFPAY ==
[2023-04-15] VITALS (8 sets, daily range): BP systolic 136–157; BP diastolic 49–88; PULSE 75–87; RESP 18–22; TEMP 36.2–36.6; O2SAT 94–96; BMI 35.6
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
[2023-04-15 09:56] LABS: Absolute Lymphocyte Count 0.95 X10^3/uL (0.83-4.51); Absolute Neutrophil Count 4.1 X10^3/uL (2.0-7.7); Basophil# 0.05 X10^3/uL; Basophil% 0.8 % (0-1); Eosinophil# 0.22 X10^3/uL; Eosinophils% 3.6 % (0-5); Hematocrit 35.1 % (37-47); Hemoglobin 10.4 g/dL (12.0-15.0); Lymphocyte # 0.95 X10^3/ul (0.83-4.51); Lymphocyte % 15.7 % (19-41); Mean Corp Hgb Conc 29.6 g/dL (32-36); Mean Corpuscular Hgb 27.2 pg (27.0-32.0); Mean Corpuscular Volume 91.9 fL (81-99); Mean Platelet Vol. 11.1 fl (6.2-12.0); Monocyte# 0.73 X10^3/uL; NRBC Flagged by Analyzer 0 % (0-5); Neutrophil # 4.05 X10^3/uL (2.7-7.7); Neutrophil % 66.9 % (47-70); POSITIVE COUNT YES; Platelet Count 169 K/mm3 (150-450); Red Blood Count 3.82 M/mm3 (4.2-5.4); White Blood Count 6.1 K/mm3 (4.4-11.0)
[2023-04-15 10:12] LABS: ALB/GLOB Ratio 0.5 RATIO (0.9-2.4); AST(SGOT) 22 U/L (15-37); Alanine Aminotransfer ALT/SGPT 16 U/L (13-56); Albumin, Serum 2.3 g/dL (3.2-5.0); Alkaline Phosphatase 76 U/L (45-117); Anion Gap 4 (5-15); BUN 12 mg/dL (7-18); BUN/Creat Ratio 11.7 RATIO (10-20); Calcium,Total 8.6 mg/dL (8.5-10.1); Chloride 100 mmol/L (98-107); Creatinine, Serum 1.03 mg/dL (0.55-1.02); EST Glomerular Filtration Rate 54 mL/min (>60); Est Glom Filt Rate - Afr Amer 66 mL/min (>60); Globulin 4.2 g/dL (2.2-4.2); Glucose 91 mg/dL (74-106); Potassium 4.2 mmol/L (3.5-5.1); Protein, Total 6.5 g/dL (6.4-8.2); Sodium Level 136 mmol/L (136-145)
[2023-04-15 10:21] LABS: Differential Indicated SCAN CRITERIA MET
[2023-04-15 10:22] LABS: Differential Comment SCANNED
[2023-04-15 10:40] LABS: Lactic Acid 1.1 mmol/L (0.4-1.9)
[2023-04-15 11:15] LABS: Bacteria 0 SEEN /hpf (None Seen); Mucous, Urine 0 SEEN /hpf (<or=2+); Red Blood Cells-Urine 0 SEEN /hpf (0-5); White Blood Cells 0 SEEN /hpf (0-5)
[2023-04-15 11:41] LABS: Color, Urine Yellow (Yellow); Glucose, Dipstick 50 mg/dl (Normal); Ketone-Dipstick Negative (Negative); Leukocyte Esterase-Dipstick 25 /ul (Negative); Nitrite-Dipstick Negative (Negative); Occult Blood-Urine Negative /ul (Negative); Protein-Dipstick Negative (Negative); Specific Gravity, Urine 1.005 (1.002-1.030); Urine Bilirubin Dipstick Negative (Negative); Urine Clarity Sl. Cloudy (Clear); Urine Urobilinogen Normal (Normal)
[2023-04-15 12:25] LABS: Squamous Epithelial Cells - UA 0-5 SEEN /hpf (5-10)
--- NOTE | 2023-04-15 12:50 | CM.ED ---
Addendum entered by Hollie Adam 04/15/23 16:42: SW received return call from patient's niece and secondary HCPOA, Amy. POA reports patient has been combative regarding taking medications, is not able to care for herself and refuses to cooperate with family. POA reports they have been dealing with this for 6 years and we are tired of it. POA reported no manager social work will do anything about it and she needs to be in a home. SW explained that if patient is able to make her own decisions, then social work cannot force her to go to a facility. SW expressed concerns regarding patient caring for self and whether they are able to assist. POA reports they cannot help her we are done playing games. POA reports she throws temper tantrums and won't pay them for their help. Caregiver had reported HCPOAs were waiting for patient to so they can have all her money. Pt is not destitute and has 3 homes (all hoarding situations) and reportedly owns many acres of property. SW has concerns regarding family and caregivers ability to care for patient. Caregiver recently had surgery and reports she cannot lift patient or provided enough care. Nursing attempted to ambulate patient and she was unable to get up on her own and needed max assistance. Pt had repeatedly said she was able to move around independently. SW attempted to call patient's family physician office to see if patient has a HHC order if one could be obtained but was on hold and could not reach anyone. Dr. Pittman has concerns regarding patient's capacity to care for self and make decisions. Pt cannot current be discharged to caregiver and does not have HHC or assistance at home or at caregivers home. Additionally, Dr. Pittman had contact with Dr. Jason Benitez PCP who expressed concerns regarding patient's care/family involvement and agreed patient does not have the capacity to make these decisions. Pt likely to be admitted for further review of needs. Hollie Adam MUSIC SUPERVISOR, GREEN BUILDING MATERIALS DISTRIBUTOR Original Note: Social Work Pt present in the ED due to caregiver being in the ED as well. Caregiver expressed concerns regarding patient being unable to care for self independently and patient moved in with her for approx. one week. Pt reportedly owns 3 homes, which are all hoarding situations. Pt only has utilities on for one home in [facility] in which she was residing independently until the last week. The home she has been residing in is a hoarding situation with paths to move through the home and not accessible for a walker or wheelchair. Pt reportedly has many cats in the home as well which she has difficulty caring for. Pt's caregiver, Patrizia, has concerns regarding patient not taking her medications, falling and leaving AMA frequently from hospitals. Pt left AMA from [place], was recently at [place] for a fall and has repeated visits to [facility]. SW introduced self and role to patient. SW assessed patient mental status. Pt is oriented x4. Pt is aware and presents with good memory. However, patient does present as minimizing her conditions and dismissing any need for caregivers. Pt reports she fell but only because no one told me what the buttons do regarding her lift chair. Pt asked if she is able to navigate by herself in her own home and she reports she gets around just fine. Pt reports she has cats that are her babies. When asked about her ability to care for her cats, patient reports she is able to care for them. It is SW opinion that patient is minimizing and purposely not expressing any needs for fear of being taken out of home or having her pets taken. However, patient does not present as cognitively impaired. Pt reports she is taking too many medications and she felt dizzy and crazy yesterday but due to medications. When asked for further details regarding crazy patient just said she was dizzy and given too many medications. SW does not see evidence of too many medications but caregiver reports she was not taking her medications at home and lying and telling people she is taking all her medications. Pt reports she is not going to take all these medications they are trying to give her. Patient does not present as being able to care for self without assistance. Pt has Treater paperwork that shows nephew and his and HCPOA. SW left voicemail for each on their cell phones to discuss patient's care and needs. SW has not received a call back as of yet. Patient is requesting to call nephew and discharge home. Caregiver does not believe family has the best interest in mind of the patient due to financial reasons. Pt believes caregiver and family are both concerned with money and that they are just jealous. SW awaiting return call from [employer] to ensure patient's needs can be met appropriately as she does have recent falls, many recent hospital visits, difficulty walking, and multiple medical conditions. Hollie Adam MUSIC SUPERVISOR, GREEN BUILDING MATERIALS DISTRIBUTOR
--- NOTE | 2023-04-15 14:08 | ED.RN ---
PT ASSISTED TO [facility] WITH MAX ASSIST OF 2
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
--- NOTE | 2023-04-15 15:31 | NURSING ---
302 OBS VARGAS FAILURE TO THRIVE, INABILITY TO AMBULATE, REQUENT FALLS
--- NOTE | 2023-04-15 16:08 | VDLE_ITS ---
Reason For Study: swelling RIGHT LEFT GSV is normal. GSV is normal. CFV is compressible, spontaneous, phasic, CFV is compressible, spontaneous, phasic, competent and demonstrates normal competent, and demonstrates normal augmentation. augmentation. FV is compressible, spontaneous, phasic, FV is compressible, spontaneous, phasic, competent and demonstrates normal competent and demonstrates normal augmentation. augmentation. POP V is compressible, spontaneous, phasic, POP V is compressible, spontaneous, phasic, competent and demonstrates normal competent and demonstrates normal augmentation. augmentation. T/P Trunk is compressible. T/P Trunk is compressible. PTV is compressible. PTV is compressible. RT PerV is compressible. LT PerV is compressible. Procedure This is a venous duplex using B-mode, color flow and spectral Doppler. Exam performed portable in patient room. The exam was diagnostic. Difficult study due to lympedema. A preliminary report was called and/or faxed to Dr. Bob and the pt's RN. VL/Venous Duplex US - David Extrem Interpretation Summary No evidence for acute deep venous thrombosis bilateral lower extremities with p atent and compressible bilateral great saphenous veins. Examination was noted to be techn ically difficult. Ordering Physician: Mariusz Waters Performed By: Abel Ventura RVT
--- NOTE | 2023-04-15 16:42 | CM.ED ---
Social Work CHEY Ferraro, arrived to the ED to speak with SW. SW told POA that SW is in an urgent situation and she can take her back to patient's room and see her shortly. POA refused to go to patient's room and said she just wants to talk to the SW and SW told her she would be back [place]. Pt was then admitted to [facility] and triage had POA go to the floor. SW was unable to speak with POA. Hollie Adam SUPERVISOR [employer], [employer] RESOURCE TEACHER
[2023-04-15] MEDS: Enoxaparin 40 MG/0.4 ML Syringe SC (18:08)
[2023-04-15 23:31] LABS: Erythrocyte Sedimentation Rate 41 mm/hr (0-30)
[2023-04-16 02:08] VITALS: BP 139/70; PULSE 88; RESP 18; TEMP 36.6; O2SAT 94
[2023-04-16 06:00] VITALS: BMI 35.6
[2023-04-16] MEDS: Cephalexin 500 MG Capsule PO (06:21)
[2023-04-16 07:12] VITALS: O2SAT 97
[2023-04-16 07:17] LABS: Absolute Lymphocyte Count 0.99 X10^3/uL (0.83-4.51); Absolute Neutrophil Count 4.3 X10^3/uL (2.0-7.7); Basophil# 0.04 X10^3/uL; Basophil% 0.6 % (0-1); Eosinophil# 0.16 X10^3/uL; Eosinophils% 2.5 % (0-5); Hematocrit 31.4 % (37-47); Hemoglobin 9.9 g/dL (12.0-15.0); Lymphocyte # 0.99 X10^3/ul (0.83-4.51); Lymphocyte % 15.5 % (19-41); Mean Corp Hgb Conc 31.5 g/dL (32-36); Mean Corpuscular Hgb 28.1 pg (27.0-32.0); Mean Corpuscular Volume 89.2 fL (81-99); Mean Platelet Vol. 10.7 fl (6.2-12.0); Monocyte# 0.85 X10^3/uL; Monocyte% 13.3 % (0-10); NRBC Flagged by Analyzer 0 % (0-5); Neutrophil # 4.29 X10^3/uL (2.7-7.7); Neutrophil % 67.3 % (47-70); Platelet Count 194 K/mm3 (150-450); RBC Distribution Width CV 15.1 % (11.6-14.6); RBC Distribution Width SD 48.6 fl (35.1-43.9); Red Blood Count 3.52 M/mm3 (4.2-5.4); White Blood Count 6.4 K/mm3 (4.4-11.0)
--- NOTE | 2023-04-16 07:19 | PCM.PN.HOSP ---
Reason for Visit Reason for Visit: Diagnoses Adult failure to thrive (04/15/23) Unspecified fall, initial encounter (04/15/23) Subjective Subjective Patient is an 82-year-old lady presenting with progressive generalized weakness for several month as well as extremity swelling and dizzin Objective Data Objective Data Vital Signs: Vital Signs Temp Pulse Resp BP Pulse Ox O2 Del Method 98 F 88 18 139/70 H 94 Room Air 04/16/23 02:08 04/16/23 02:08 04/16/23 02:08 04/16/23 02:08 04/16/23 02:08 04/16/23 02:15 Oxygen Delivery Method Room Air Weight: 80.1 kg Body Mass Index (BMI) 35.6 Intake & Output: Intake and Output for Last 24 Hours 04/14/23 04/15/23 04/16/23 23:59 23:59 23:59 Intake Total 75 / 75 Balance 75 / 75 Lab / Micro Data 04/16/23 06:10 04/16/23 06:10 Labs: Laboratory Results - last 24 hr 04/15/23 08:43: WBC 6.1, RBC 3.82 L, Hgb 10.4 L, Hct 35.1 L, MCV 91.9, MCH 27.2, MCHC 29.6 L, RDW Std Deviation 50.0 H, RDW Coeff of [place] 15.0 H, Plt Count 169, MPV 11.1, Immature Gran % (Auto) 1.000 H, Neut % (Auto) 66.9, Lymph % (Auto) 15.7 L, [place] % (Auto) 12.0 H, Eos % (Auto) 3.6, Baso % (Auto) 0.8, Absolute Neuts (auto) 4.1, Absolute Lymphs (auto) 0.95, Nucleated RBC % 0, Differential Comment SCANNED, Sodium 136, Potassium 4.2, Chloride 100, Carbon Dioxide 32.0, Anion Gap 4 L, BUN 12, Creatinine 1.03 H, Est GFR (MDRD) Af Amer 66, Est GFR (MDRD) Non-Af 54 L, BUN/Creatinine Ratio 11.7, Glucose 91, Calcium 8.6, Total Bilirubin 0.50, AST 22, ALT 16, Alkaline Phosphatase 76, Total Protein 6.5, Albumin 2.3 L, Globulin 4.2, Albumin/Globulin Ratio 0.5 L 04/15/23 08:46: ESR 41 H, C-React Prot Ext Range 14.90 H 04/15/23 09:52: Lactic Acid 1.1 04/15/23 11:08: Urine Color Yellow, Urine Clarity Sl. Cloudy, Urine pH 7.0, Ur Specific [place] 1.005, Urine Protein Negative, Urine Glucose (UA) 50 H, Urine Ketones Negative, Urine Occult Blood Negative, Urine Nitrite Negative, Urine Bilirubin Negative, Urine Urobilinogen Normal, Ur Leukocyte Esterase 25 H, Urine RBC 0 SEEN, Urine WBC 0 SEEN, Ur Squamous Epith Cells 0-5 SEEN, Urine Bacteria 0 SEEN, Urine Mucus 0 SEEN Physical Exam Narrative GENERAL: cooperative HEENT: Atraumatic; normocephalic EYES; Anicteric, Normal Conjunctiva NECK; supple, normal thyroid, RESPIRATORY: Diminished to auscultation CARDIOVASCULAR: Regular S1 S2, GI: soft, normoactive bowel sounds, : No Renal angle tenderness; EXTREMITIES: Edema and erythema MUSCULOSKELETAL: no muscle wasting NEURO: Awake; no lateralizing signs. SKIN: No Rash PSYCH; Flat affect Assessment & Plan Assessment/Plan (1) Adult failure to thrive: (2) Falls: QUALIFIERS: Encounter type: initial encounter Qualified Code(s): W19.XXXA - Unspecified fall, initial encounter PLAN: Plan Patient is an 82-year-old lady presenting with progressive generalized weakness for several month as well as extremity swelling and dizziness 1. Bilateral lower extremity -Bilateral venous duplex ordered to rule out DVT found to have elevated CRP start on Ceftin for possible cellulitis 2. Physical deconditioning - Requested for PT OT eval and clinical social worker to assist with discharge planning 3. Lymphedema involving both lower extremities ? Wound care nurse consulted 4. Hypertension - Blood pressure controlled, home medications continued with dose adjustment as needed 5. Nonischemic cardiomyopathy ? Echo from October 23, 2021 demonstrated EF of 50% 6. Chronic kidney disease stage IIIb ? Kidney function at baseline 7. Coronary artery disease ? Currently stable 8. Class II obesity with BMI of 36 Complicating care weight loss advised 9. DVT prophylaxis SC Lovenox Time spent in the patient's overall evaluation,decision-making process, review of diagnostic data, adjustment of management, discussion with other providers, nursing nursing and ancillary staff involved in patient's care documentation, 35 minutes minutes Charges/Coding Visit Charges Inpatient E&M: 35146 Subs Hosp L2
[2023-04-16 08:17] LABS: Anion Gap 6 (5-15); BUN 9 mg/dL (7-18); BUN/Creat Ratio 11.3 RATIO (10-20); Calcium,Total 8.8 mg/dL (8.5-10.1); Chloride 102 mmol/L (98-107); Creatinine, Serum 0.79 mg/dL (0.55-1.02); EST Glomerular Filtration Rate 73 mL/min (>60); Est Glom Filt Rate - Afr Amer 89 mL/min (>60); Estimated Creatinine Clearance 52.96 ml/min; Glucose 98 mg/dL (74-106); Phosphorus 2.4 mg/dL (2.5-4.9); Potassium 3.8 mmol/L (3.5-5.1); Sodium Level 139 mmol/L (136-145)
[2023-04-16 08:39] VITALS: BP 160/66; PULSE 94; RESP 18; TEMP 36.8; O2SAT 95
[2023-04-16] MEDS: Enoxaparin 40 MG/0.4 ML Syringe SC (08:55)
[2023-04-16] MEDS: Potassium Chloride Oral Tablet 20 MEQ PO (08:55)
[2023-04-16] MEDS: Carvedilol 6.25 MG Tablet PO ×2 (08:55→17:57)
[2023-04-16] MEDS: Menthol/Lanolin/Calamine/Znox 113 GM Tube 1 APPLIC TOPICAL ×2 (09:01→22:03)
--- NOTE | 2023-04-16 09:28 | WOUNDNOTE ---
Was asked to see patient for redness and edema to bilateral lower legs. patient has a history of lymphedema. this nurse is familiar with patient from previous admissions. there is some redness noted. redness appears to be unchanged from previous admissions. no open areas noted. washed legs and feet with soap and water. pat dry. wrapped legs with kerlix and CYNDIE wraps. pt tolerated well. see skin photos.
--- NOTE | 2023-04-16 09:50 | WOUNDNOTE ---
skin photo: right lower leg
--- NOTE | 2023-04-16 09:51 | WOUNDNOTE ---
skin photo: left lower leg
--- NOTE | 2023-04-16 09:51 | WOUNDNOTE ---
skin photo: left lower leg
--- NOTE | 2023-04-16 10:21 | CASEMGMT ---
Discharge Planning A list of SNF providers including quality and resource use data and consistent with the patient?s preferred geographic region, medical needs, and insurance network was created in [employer] Guide. This list was provided to the SW. Rosario Jensen Discharge Planning Asst.
--- NOTE | 2023-04-16 14:37 | CASEMGMT ---
??Met with patient to complete GUZMÁN form. GUZMÁN form explained to patient who voiced understanding and signed form. Original form placed in pt?s chart and copy provided to patient. Rosario Jensen, Discharge Planning Asst.
[2023-04-16] MEDS: Ondansetron 4 MG/2 ML Vial IV (15:22)
[2023-04-16] MEDS: Acetaminophen 325 MG Tablet 650 MG PO (15:22)
--- NOTE | 2023-04-16 15:38 | CHAPLAIN ---
Type of Pastoral Visit _x__ Initial Visit ___ Follow-up Visit ___ On-call Visit ___ General Patient Visit ___ Spiritual Assessment ___ Family Conference ___ Bereavement ___ Rapid Response ___ Code Blue ___ Other (describe below) Pastoral Care Referral From _x__ Patient ___ Family ___ Nurse ___ Physician ___ Black Top Spreader Machine Operator ___ Bill Sorter ___ Other (describe below) Sacrament/Intervention _x__ Active listening ___ Anointing ___ Scientology ___ Bereavement ___ Communion ___ Nanci exploration ___ ___ Life review ___ Prayer ___ Reconciliation ___ Sacrament of Sick _x__ Supportive presence ___ Wedding ___ Other (describe below) Pastoral Comments patient states that she is not feeling well; pt states that the therapists tricked her into going from bed to chair and I don't like that; pt says that she wants more meds and more food; pt states all I need is for the RN when asked about her concerns and how this elevator builder can help; went to wire charger and gave her the information from this patient; welfare eligibility worker will make a check on patient at this time
[2023-04-16 16:00] VITALS: BP 147/73; PULSE 76; RESP 17; TEMP 36.9; O2SAT 96
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
[2023-04-16] MEDS: Atorvastatin Calcium 40 MG Tablet PO (21:54)
[2023-04-16 22:01] VITALS: BP 136/54; PULSE 85; RESP 18; TEMP 36.6; O2SAT 95
[2023-04-17 05:06] VITALS: BMI 50.7
[2023-04-17 05:24] VITALS: BP 141/61; PULSE 80; RESP 18; TEMP 36.6; O2SAT 95
[2023-04-17 05:29] VITALS: BMI 35.2
--- NOTE | 2023-04-17 07:19 | PN.HOSP_ITS ---
Reason for Visit Reason for Visit: Diagnoses Adult failure to thrive (04/15/23) Unspecified fall, initial encounter (04/15/23) Subjective Subjective Patient seen remains weak. Patient agreeable to being discharged to long-term facility Objective Data Objective Data Vital Signs: Vital Signs Temp Pulse Resp BP Pulse Ox O2 Del Method 97.8 F 80 18 141/61 H 95 Room Air 04/17/23 05:24 04/17/23 05:24 04/17/23 05:24 04/17/23 05:24 04/17/23 05:24 04/17/23 05:24 Oxygen Delivery Method Room Air Weight: 79.3 kg Body Mass Index (BMI) 35.2 Intake & Output: Intake and Output for Last 24 Hours 04/15/23 04/16/23 04/17/23 23:59 23:59 23:59 Intake Total 275 / 375 250 / 250 Balance 275 / 375 250 / 250 Lab / Micro Data 04/16/23 06:10 04/16/23 06:10 Labs: Laboratory Results - last 24 hr 04/16/23 06:10: WBC 6.4, RBC 3.52 L, Hgb 9.9 L, Hct 31.4 L, MCV 89.2, MCH 28.1, MCHC 31.5 L D, RDW Std Deviation 48.6 H, RDW Coeff of [place] 15.1 H, Plt Count 194, MPV 10.7, Immature Gran % (Auto) 0.800, Neut % (Auto) 67.3, Lymph % (Auto) 15.5 L, [place] % (Auto) 13.3 H, Eos % (Auto) 2.5, Baso % (Auto) 0.6, Absolute Neuts (auto) 4.3, Absolute Lymphs (auto) 0.99, Nucleated RBC % 0, Sodium 139, Potassium 3.8, Chloride 102, Carbon Dioxide 31.0, Anion Gap 6, BUN 9, Creatinine 0.79, Estim Creat Clear Calc 52.96, Est GFR (MDRD) Af Amer 89, Est GFR (MDRD) Non-Af 73, BUN/Creatinine Ratio 11.3, Glucose 98, Calcium 8.8, Phosphorus 2.4 L Radiography Diagnostic Testing: Radiology Impression Venous Doppler Study 04/15/23 16:08 Interpretation Summary No evidence for acute deep venous thrombosis bilateral lower extremities with patent and compressible bilateral great saphenous veins. Examination was noted to be technically difficult. Ordering Physician: Mariusz Waters Performed By: Abel Ventura RVT Physical Exam Narrative GENERAL: cooperative HEENT: Atraumatic; normocephalic EYES; Anicteric, Normal Conjunctiva NECK; supple, normal thyroid, RESPIRATORY: Diminished to auscultation CARDIOVASCULAR: Regular S1 S2, GI: soft, normoactive bowel sounds, : No Renal angle tenderness; EXTREMITIES: Edema and erythema MUSCULOSKELETAL: no muscle wasting NEURO: Awake; no lateralizing signs. SKIN: No Rash PSYCH; Flat affect Assessment & Plan Assessment/Plan (1) Adult failure to thrive: (2) Falls: QUALIFIERS: Encounter type: initial encounter Qualified Code(s): W19.XXXA - Unspecified fall, initial encounter PLAN: Plan Patient is an 82-year-old lady presenting with progressive generalized weakness for several month as well as extremity swelling and dizziness 1. Bilateral lower extremity -Bilateral venous duplex ordered to rule out DVT found to have elevated CRP start on Ceftin for possible cellulitis 2. Physical deconditioning - Requested for PT OT eval and social media specialist to assist with discharge planning ? 04/17/2023 awaiting placement in a long-term facility 3. Lymphedema involving both lower extremities ? Wound care nurse consulted 4. Hypertension - Blood pressure controlled, home medications continued with dose adjustment as needed 5. Nonischemic cardiomyopathy ? Echo from October 23, 2021 demonstrated EF of 50% 6. Chronic kidney disease stage IIIb ? Kidney function at baseline 7. Coronary artery disease ? Currently stable 8. Class II obesity with BMI of 36 Complicating care weight loss advised 9. DVT prophylaxis SC Lovenox Time spent in the patient's overall evaluation,decision-making process, review of diagnostic data, adjustment of management, discussion with other providers, nursing nursing and ancillary staff involved in patient's care documentation, 35 minutes minutes Charges/Coding Visit Charges Inpatient E&M: 94127 Subs Hosp L2
[2023-04-17] MEDS: Menthol/Lanolin/Calamine/Znox 113 GM Tube 1 APPLIC TOPICAL ×2 (07:49→22:43)
[2023-04-17] MEDS: Carvedilol 6.25 MG Tablet PO ×2 (07:49→17:46)
[2023-04-17] MEDS: Enoxaparin 40 MG/0.4 ML Syringe SC (07:49)
[2023-04-17] MEDS: Potassium Chloride Oral Tablet 20 MEQ PO (07:49)
--- NOTE | 2023-04-17 08:53 | WOUNDNOTE ---
In to reassess bilateral lower legs. removed CYNDIE wraps and dressings. no drainage noted. no open areas. the redness and edema is improved. washed legs and feet with soap and water. pat dry. rewrapped legs with kerlix and CYNDIE wraps. pt tolerated well. will monitor.
[2023-04-17 10:00] VITALS: BP 133/68; PULSE 88; RESP 18; TEMP 36.6; O2SAT 95
--- NOTE | 2023-04-17 11:20 | RAD_ITS ---
INDICATION: fall with pain -- -- POSTERIOR PAIN EXAMINATION/TECHNIQUE: X-RAY - XR Pelvis 1 or 2 Views COMPARISON: CT abdomen/pelvis from 07/09/2019. FINDINGS: Assessment of the sacrum is limited by overlying bowel gas. Intact appearance of intramedullary jovany and gamma nail transfixing the proximal left femur. No acute fracture or subluxation. Mild to moderate right and mild left hip osteoarthritis. Pubic symphysis and bilateral sacroiliac joints are intact. No acute findings in the visualized pelvis and soft tissues. RAD/Pelvis 1 or 2 Views IMPRESSION: No evidence of displaced pelvic or hip fracture. Electronically Signed: Remy Moody DO at 8:08 EDT ,
[2023-04-17] MEDS: Cephalexin 500 MG Capsule PO ×3 (12:14→22:43)
--- NOTE | 2023-04-17 13:44 | CASEMGMT ---
Discharge Planning Follow up call placed to [facility] regarding status of referral. PEGGY states she looks fine clinically but needs BOM, admission, and credit administrator to review and they are all out today. PEGGY said that its likely we won't have answer until tomorrow. Rosario Jensen, Discharge Planning Asst.
[2023-04-17 14:12] VITALS: BP 130/52; PULSE 64; RESP 18; TEMP 36.6; O2SAT 100
--- NOTE | 2023-04-17 18:10 | CASEMGMT ---
Social Work MedSur 3 Collaboration with discharge vp strategic planning regarding status of referral. This web content writer called [facility] to inquire about delay in ability to start pre-CERT. This web content writer spoke with Cristal the social welfare clerk at the [facility]. Cinthia benjamin was able to submit the pre-CERT this afternoon and patient is excepted once pre-CERT is obtained. Thanked the social welfare clerk for getting the pre-CERT submitted. Met with patient and patient's niece in law Amy in room. Updated to status of referral to a care center. Patient accepting and agreeable to referral. Amy also in agreement. Patient appearing more relaxed as compared to visit with patient on 04/16/2023. Patient more talkative and appearing to be in reflective and reminiscent mood. Patient talked about the loss of her in 2015, and how difficult [place] is now for her. Supportive listening and encouragement provided. PASRR screen completed in the [employer] system. Plan: Acceptance at [facility]. Pre-CERT pending with insurance. -PATEL Horton, STILL PHOTOGRAPHER *This note was generated with [employer] dictation software. It may contain incorrect words, spelling, and punctuation that were not noted in review of the chart prior to signing*
[2023-04-17 19:51] VITALS: BP 130/55; PULSE 76; RESP 18; TEMP 36.8; O2SAT 95
[2023-04-17] MEDS: Atorvastatin Calcium 40 MG Tablet PO (22:43)
[2023-04-18 03:46] VITALS: BMI 35.5
[2023-04-18 04:32] VITALS: BP 149/68; PULSE 77; RESP 18; TEMP 36.7; O2SAT 94
[2023-04-18] MEDS: Carvedilol 6.25 MG Tablet PO ×2 (07:51→17:39)
[2023-04-18] MEDS: Potassium Chloride Oral Tablet 20 MEQ PO (07:51)
[2023-04-18] MEDS: Menthol/Lanolin/Calamine/Znox 113 GM Tube 1 APPLIC TOPICAL ×2 (07:51→21:54)
[2023-04-18] MEDS: Enoxaparin 40 MG/0.4 ML Syringe SC (07:51)
--- NOTE | 2023-04-18 08:03 | PCM.PN.HOSP ---
Reason for Visit Reason for Visit: Diagnoses Adult failure to thrive (04/15/23) Unspecified fall, initial encounter (04/15/23) Subjective Subjective Complain of significant sacral pain. Imaging studies did not show any fracture. Awaiting insurance precertification prior to transfer to [facility] facility Objective Data Objective Data Vital Signs: Vital Signs Temp Pulse Resp BP Pulse Ox O2 Del Method 98.1 F 77 18 149/68 H 94 Room Air 04/18/23 04:32 04/18/23 04:32 04/18/23 04:32 04/18/23 04:32 04/18/23 04:32 04/18/23 07:48 Oxygen Delivery Method Room Air Weight: 80 kg Body Mass Index (BMI) 35.5 Intake & Output: Intake and Output for Last 24 Hours 04/16/23 04/17/23 04/18/23 23:59 23:59 23:59 Intake Total 275 / 375 300 / 400 300 / 300 Balance 275 / 375 300 / 400 300 / 300 Lab / Micro Data 04/16/23 06:10 04/16/23 06:10 Physical Exam Narrative GENERAL: cooperative HEENT: Atraumatic; normocephalic EYES; Anicteric, Normal Conjunctiva NECK; supple, normal thyroid, RESPIRATORY: Diminished to auscultation CARDIOVASCULAR: Regular S1 S2, GI: soft, normoactive bowel sounds, : No Renal angle tenderness; EXTREMITIES: Edema and erythema MUSCULOSKELETAL: no muscle wasting NEURO: Awake; no lateralizing signs. SKIN: No Rash PSYCH; Flat affect Assessment & Plan Assessment/Plan (1) Adult failure to thrive: (2) Falls: QUALIFIERS: Encounter type: initial encounter Qualified Code(s): W19.XXXA - Unspecified fall, initial encounter PLAN: Plan Patient is an 82-year-old lady presenting with progressive generalized weakness for several month as well as extremity swelling and dizziness 1. Bilateral lower extremity -Bilateral venous duplex ordered to rule out DVT found to have elevated CRP start on Ceftin for possible cellulitis 2. Physical deconditioning - Requested for PT OT eval and social research assistant to assist with discharge planning ? 04/17/2023 awaiting placement in a [facility] facility ? 04/18/2020 did complain of significant sacral pain imaging studies was negative for fracture 3. Lymphedema involving both lower extremities ? Wound care nurse consulted 4. Hypertension - Blood pressure controlled, home medications continued with dose adjustment as needed 5. Nonischemic cardiomyopathy ? Echo from October 23, 2021 demonstrated EF of 50% 6. Chronic kidney disease stage IIIb ? Kidney function at baseline 7. Coronary artery disease ? Currently stable 8. Class II obesity with BMI of 36 Complicating care weight loss advised 9. DVT prophylaxis SC Lovenox Time spent in the patient's overall evaluation,decision-making process, review of diagnostic data, adjustment of management, discussion with other providers, nursing nursing and ancillary staff involved in patient's care documentation, 35 minutes minutes Charges/Coding Visit Charges Inpatient E&M: 05447 Subs Hosp L2
[2023-04-18 08:41] VITALS: O2SAT 95
[2023-04-18 10:00] VITALS: BP 145/58; PULSE 86; RESP 18; TEMP 36.8; O2SAT 95
--- NOTE | 2023-04-18 11:43 | WOUNDNOTE ---
In to reassess bilateral lower legs. removed the CYNDIE wraps. the redness and edema are improved. there are no open areas noted. no drainage. washed legs and feet with soap and water. pat dry. applied kerlix and CYNDIE wraps. pt tolerated well.
[2023-04-18] MEDS: Mag Hydrox/Al Hydrox/Simeth 30 ML UDC 15 ML PO (12:53)
[2023-04-18] MEDS: Cephalexin 500 MG Capsule PO ×3 (12:54→23:36)
[2023-04-18] MEDS: Docusate Sodium 100 MG Capsule PO (13:57)
[2023-04-18 14:41] VITALS: BP 137/49; PULSE 88; RESP 18; TEMP 36.6; O2SAT 96
--- NOTE | 2023-04-18 17:20 | CASEMGMT ---
Social Work PASRR screen is completed for this patient. Spoke with patient's niece Amy, who was present for the visit. Updated as awaiting on pre-CERT for patient to go to the [facility] Plan: [facility], skilled level of care, pending insurance authorization, PASRR completed. -PATEL Horton, MANAGER UNIVERSAL
[2023-04-18 21:41] VITALS: BP 129/49; PULSE 68; RESP 16; TEMP 36.9; O2SAT 95
[2023-04-18] MEDS: Atorvastatin Calcium 40 MG Tablet PO (21:53)
[2023-04-19 04:13] VITALS: BP 146/67; PULSE 87; RESP 16; TEMP 36.6; O2SAT 96
[2023-04-19] MEDS: Cephalexin 500 MG Capsule PO ×2 (05:32→12:19)
[2023-04-19 06:00] VITALS: BMI 35.6
[2023-04-19 07:55] VITALS: O2SAT 94
--- NOTE | 2023-04-19 08:08 | PCM.PN.HOSP ---
Reason for Visit Reason for Visit: Diagnoses Adult failure to thrive (04/15/23) Unspecified fall, initial encounter (04/15/23) Subjective Subjective Patient seen awaiting transfer to snf facility Objective Data Objective Data Vital Signs: Vital Signs Temp Pulse Resp BP Pulse Ox O2 Del Method 97.9 F 87 16 146/67 H 94 Room Air 04/19/23 04:13 04/19/23 04:13 04/19/23 04:13 04/19/23 04:13 04/19/23 07:55 04/19/23 07:55 Oxygen Delivery Method Room Air Weight: 80.2 kg Body Mass Index (BMI) 35.6 Intake & Output: Intake and Output for Last 24 Hours 04/17/23 04/18/23 04/19/23 23:59 23:59 23:59 Intake Total 300 / 400 300 / 300 100 / 100 Balance 300 / 400 300 / 300 100 / 100 Lab / Micro Data 04/16/23 06:10 04/16/23 06:10 Radiography Diagnostic Testing: Radiology Impression Pelvis X-Ray 04/17/23 11:20 IMPRESSION: No evidence of displaced pelvic or hip fracture. Electronically Signed: Remy Moody DO at 8:08 EDT , Physical Exam Narrative GENERAL: cooperative HEENT: Atraumatic; normocephalic EYES; Anicteric, Normal Conjunctiva NECK; supple, normal thyroid, RESPIRATORY: Diminished to auscultation CARDIOVASCULAR: Regular S1 S2, GI: soft, normoactive bowel sounds, : No Renal angle tenderness; EXTREMITIES: Edema and erythema MUSCULOSKELETAL: no muscle wasting NEURO: Awake; no lateralizing signs. SKIN: No Rash PSYCH; Flat affect Assessment & Plan Assessment/Plan (1) Adult failure to thrive: (2) Falls: QUALIFIERS: Encounter type: initial encounter Qualified Code(s): W19.XXXA - Unspecified fall, initial encounter PLAN: Plan Patient is an 82-year-old lady presenting with progressive generalized weakness for several month as well as extremity swelling and dizziness 1. Bilateral lower extremity -Bilateral venous duplex ordered to rule out DVT found to have elevated CRP start on Ceftin for possible cellulitis ? [id number] remains afebrile 2. Physical deconditioning - Requested for PT OT eval and social director to assist with discharge planning ? 04/17/2023 awaiting placement in a snf facility ? 04/18/2020 did complain of significant sacral pain imaging studies was negative for fracture 3. Lymphedema involving both lower extremities ? Wound care nurse consulted 4. Hypertension - Blood pressure controlled, home medications continued with dose adjustment as needed 5. Nonischemic cardiomyopathy ? Echo from October 23, 2021 demonstrated EF of 50% 6. Chronic kidney disease stage IIIb ? Kidney function at baseline 7. Coronary artery disease ? Currently stable 8. Class II obesity with BMI of 36 Complicating care weight loss advised 9. DVT prophylaxis SC Lovenox Time spent in the patient's overall evaluation,decision-making process, review of diagnostic data, adjustment of management, discussion with other providers, nursing nursing and ancillary staff involved in patient's care documentation, 35 minutes minutes Charges/Coding Visit Charges Inpatient E&M: 21911 Subs Hosp L2
[2023-04-19 08:20] VITALS: BP 145/59; PULSE 84; RESP 18; TEMP 36.8; O2SAT 97
[2023-04-19] MEDS: Carvedilol 6.25 MG Tablet PO ×2 (08:23→16:55)
[2023-04-19] MEDS: Enoxaparin 40 MG/0.4 ML Syringe SC (08:23)
[2023-04-19] MEDS: Menthol/Lanolin/Calamine/Znox 113 GM Tube 1 APPLIC TOPICAL (08:23)
[2023-04-19] MEDS: Potassium Chloride Oral Tablet 20 MEQ PO (08:23)
--- NOTE | 2023-04-19 13:16 | PCM.TXEXTCAR ---
Diet Diet Order/Speech Therapy: 04/15/23 12:46 Diet: Regular - General Wound(s) David legs: Wound Type: Skin Tear Therapies Physical Therapy: Eval and Treat Occupational Therapy: Eval and Treat Problem/Diagnosis (1) Adult failure to thrive: Status: Acute Code(s): R62.7 - Adult failure to thrive (2) Falls: Status: Acute Code(s): W19.XXXA - Unspecified fall, initial encounter Plan Patient is an 82-year-old lady presenting with progressive generalized weakness for several month as well as extremity swelling and dizziness 1. Bilateral lower extremity -Bilateral venous duplex ordered to rule out DVT found to have elevated CRP start on Ceftin for possible cellulitis ? [id number] remains afebrile 2. Physical deconditioning - Requested for PT OT eval and social media campaign manager to assist with discharge planning ? 04/17/2023 awaiting placement in a assisted facility ? 04/18/2020 did complain of significant sacral pain imaging studies was negative for fracture 3. Lymphedema involving both lower extremities ? Wound care nurse consulted 4. Hypertension - Blood pressure controlled, home medications continued with dose adjustment as needed 5. Nonischemic cardiomyopathy ? Echo from October 23, 2021 demonstrated EF of 50% 6. Chronic kidney disease stage IIIb ? Kidney function at baseline 7. Coronary artery disease ? Currently stable 8. Class II obesity with BMI of 36 Complicating care weight loss advised 9. DVT prophylaxis SC Lovenox Time spent in the patient's overall evaluation,decision-making process, review of diagnostic data, adjustment of management, discussion with other providers, nursing nursing and ancillary staff involved in patient's care documentation, 35 minutes minutes Allergies/Procedures Done in Hospital Allergies adhesive Allergy (Verified 04/15/23 08:48) Hives dicyclomine HCl [From Bentyl] Allergy (Verified 04/15/23 08:48) Hives aspirin Adverse Reaction (Verified 04/15/23 08:48) Low platelets Type of Care/Length of Stay Estimated LOS: Convalescent Care Less Than 30 days Type of Care Needed: Skilled Rehab Potential: Good Prognosis: Good Additional Orders/Day of Discharge Day of Discharge: 04/19/23 Discharge Plan Admission Admit Date/Time: 04/15/23 15:39 Attending Provider: Armand Bob Primary Care Provider: Jason Benitez Consulting Providers: Mariusz Waters Discharge Orders/Prescriptions Prescriptions: New alum-mag hydroxide-simeth [Mag-Al Plus Extra Strength] 400-400-40 mg/5 mL Suspension 15 ml PO Q6H PRN PRN (Reason: Indigestion) Qty: 0 0RF menthol-zinc oxide [Calmoseptine] 0.44-20.6 % Ointment 1 applic topical BID Qty: 0 0RF Protocol: *Topical Application Instructions APPLICATION INSTRUCTIONS: apply to buttocks nitroglycerin 0.4 mg Tablet, Sublingual 0.4 mg sublingual Q5M PRN (Reason: Cardiac/Chest Pain) Qty: 0 0RF Continued pantoprazole [Protonix] 40 mg tablet,delayed release (DR/EC) 40 mg PO Q12H potassium chloride 20 mEq tablet,ER particles/crystals 20 meq PO DAILY Qty: 30 Patient Comments: TAKE 1 TABLET BY MOUTH DAILY atorvastatin 40 mg tablet 40 mg PO QHS 90 Days Qty: 90 3RF furosemide 40 mg tablet 40 mg PO DAILY PRN (Reason: swelling) cholecalciferol (vitamin D3) 1,000 UNIT capsule 1,000 unit PO DAILY Farxiga 10 mg tablet 10 mg PO DAILY triamcinolone acetonide 0.1 % cream 1 applic TOPICAL BID docusate sodium [Colace] 100 mg capsule 100 mg PO DAILY PRN (Reason: constipation) acetaminophen [Acetaminophen Extra Strength] 500 mg tablet 500 mg PO Q6H PRN (Reason: pain) carvedilol 6.25 mg tablet 6.25 mg PO BID Qty: 180 3RF Rx Instructions: must administer with a meal/food valsartan [Diovan] 80 mg tablet 80 mg PO DAILY Qty: 30 11RF Discontinued tramadol 50 mg tablet 25 - 50 mg PO Q8H PRN (Reason: pain) Patient Comments: TAKE ONE-HALF TO 1 (ONE) Tablet every EIGHT hours as needed for pain in leg] cephalexin 500 mg capsule 500 mg PO .COMPLEX Patient Comments: has 20 more capsules left in pill bottle Rx Instructions: 500 mg orally qid X10 days; Referrals / Follow Up: Jason Benitez MD [Primary Care Provider] - Disposition Disposition (needs filled in before D/C Order can be placed): [facility] Facility (2) Falls Qualifiers: Encounter type: initial encounter Qualified Code(s): W19.XXXA - Unspecified fall, initial encounter
--- NOTE | 2023-04-19 13:20 | DS.PCM_ITS ---
Providers Date of Admission: 04/15/23 Date of Discharge: 04/19/23 Primary Care Physician: Dr. Jason Benitez MD Consultations 04/15/23 16:08 Consult: Onc/Wound/assistant plant control operator Routine Comment: Reason for Consult:: B/L leg lyphedema Reason For Visit: FAILURE TO THRIVE Diagnosis Discharge Diagnosis (1) Adult failure to thrive: Status: Acute Code(s): R62.7 - Adult failure to thrive (2) Falls: Status: Acute Code(s): W19.XXXA - Unspecified fall, initial encounter Qualifiers: Encounter type: initial encounter Qualified Code(s): W19.XXXA - Unspecified fall, initial encounter Plan Patient is an 82-year-old lady presenting with progressive generalized weakness for several month as well as extremity swelling and dizziness 1. Bilateral lower extremity -Bilateral venous duplex ordered to rule out DVT found to have elevated CRP start on Ceftin for possible cellulitis ? [id number] remains afebrile 2. Physical deconditioning - Requested for PT OT eval and director social to assist with discharge planning ? 04/17/2023 awaiting placement in a half-way facility ? 04/18/2020 did complain of significant sacral pain imaging studies was negative for fracture 3. Lymphedema involving both lower extremities ? Wound care nurse consulted 4. Hypertension - Blood pressure controlled, home medications continued with dose adjustment as needed 5. Nonischemic cardiomyopathy ? Echo from October 23, 2021 demonstrated EF of 50% 6. Chronic kidney disease stage IIIb ? Kidney function at baseline 7. Coronary artery disease ? Currently stable 8. Class II obesity with BMI of 36 Complicating care weight loss advised 9. DVT prophylaxis SC Lovenox Time spent in the patient's overall evaluation,decision-making process, review of diagnostic data, adjustment of management, discussion with other providers, nursing nursing and ancillary staff involved in patient's care documentation, 35 minutes minutes Medications at Discharge Home Medications cholecalciferol (vitamin D3) 25 mcg (1,000 unit) capsule 1,000 unit PO DAILY supplement 08/12/17 pantoprazole 40 mg tablet,delayed release (Protonix) 40 mg PO Q12H reflux 07/01/18 potassium chloride 20 mEq tablet,extended release(part/cryst) 20 meq PO DAILY supplement #30 tabs 04/28/21 atorvastatin 40 mg tablet 40 mg PO QHS CHOLESTEROL 90 days #90 tabs 02/28/22 furosemide 40 mg tablet 40 mg PO DAILY PRN swelling 05/16/22 dapagliflozin propanediol 10 mg tablet (Farxiga) 10 mg PO DAILY DIABETES 03/17/23 triamcinolone acetonide 0.1 % topical cream 1 applic topical BID REDNESS 03/17/23 carvedilol 6.25 mg tablet 6.25 mg PO BID HTN #180 tabs 04/02/23 valsartan 80 mg tablet (Diovan) 80 mg PO DAILY #30 tabs 04/12/23 acetaminophen 500 mg tablet (Acetaminophen Extra Strength) 500 mg PO Q6H PRN pain 04/15/23 docusate sodium 100 mg capsule (Colace) 100 mg PO DAILY PRN constipation 04/15/23 aluminum-mag hydroxide-simethicone 400 mg-400 mg-40 mg/5 mL oral susp (Mag-Al Plus Extra Strength) 15 ml PO Q6H PRN PRN Indigestion #0 mL 04/19/23 menthol 0.44 %-zinc oxide 20.6 % topical ointment (Calmoseptine) 1 applic topical BID #0 grams 04/19/23 nitroglycerin 0.4 mg sublingual tablet 0.4 mg sublingual Q5M PRN Cardiac/Chest Pain #0 tabs 04/19/23 Hospital Course Summary of Care Provided Minutes Spent on Discharge: 35 Physical Exam Narrative GENERAL: cooperative HEENT: Atraumatic; normocephalic EYES; Anicteric, Normal Conjunctiva NECK; supple, normal thyroid, RESPIRATORY: Diminished to auscultation CARDIOVASCULAR: Regular S1 S2, GI: soft, normoactive bowel sounds, : No Renal angle tenderness; EXTREMITIES: Edema and erythema MUSCULOSKELETAL: no muscle wasting NEURO: Awake; no lateralizing signs. SKIN: No Rash PSYCH; Flat affect Weight / BMI Weight Weight: 80.2 kg Body Mass Index (BMI) 35.6 ABG / Lab / Microbiology Data 04/16/23 06:10 04/16/23 06:10 D/C Instructions Discharge Diet: No restrictions Discharge Activity: Return to Normal Activity Call your doctor if you observe: Fever of 101 or Higher, Shortness of breath, Fainting spells and Chest pain Meaningful Use Info Meaningful Use Diagnoses (Choose all that apply): None applicable Discharge Plan Admission Admit Date/Time: 04/15/23 15:39 Attending Provider: Armand Bob Primary Care Provider: Jason Benitez Consulting Providers: Mariusz Waters Discharge Orders/Prescriptions Prescriptions: New alum-mag hydroxide-simeth [Mag-Al Plus Extra Strength] 400-400-40 mg/5 mL Suspension 15 ml PO Q6H PRN PRN (Reason: Indigestion) Qty: 0 0RF menthol-zinc oxide [Calmoseptine] 0.44-20.6 % Ointment 1 applic topical BID Qty: 0 0RF Protocol: *Topical Application Instructions APPLICATION INSTRUCTIONS: apply to buttocks nitroglycerin 0.4 mg Tablet, Sublingual 0.4 mg sublingual Q5M PRN (Reason: Cardiac/Chest Pain) Qty: 0 0RF Continued pantoprazole [Protonix] 40 mg tablet,delayed release (DR/EC) 40 mg PO Q12H potassium chloride 20 mEq tablet,ER particles/crystals 20 meq PO DAILY Qty: 30 Patient Comments: TAKE 1 TABLET BY MOUTH DAILY atorvastatin 40 mg tablet 40 mg PO QHS 90 Days Qty: 90 3RF furosemide 40 mg tablet 40 mg PO DAILY PRN (Reason: swelling) cholecalciferol (vitamin D3) 1,000 UNIT capsule 1,000 unit PO DAILY Farxiga 10 mg tablet 10 mg PO DAILY triamcinolone acetonide 0.1 % cream 1 applic TOPICAL BID docusate sodium [Colace] 100 mg capsule 100 mg PO DAILY PRN (Reason: constipation) acetaminophen [Acetaminophen Extra Strength] 500 mg tablet 500 mg PO Q6H PRN (Reason: pain) carvedilol 6.25 mg tablet 6.25 mg PO BID Qty: 180 3RF Rx Instructions: must administer with a meal/food valsartan [Diovan] 80 mg tablet 80 mg PO DAILY Qty: 30 11RF Discontinued tramadol 50 mg tablet 25 - 50 mg PO Q8H PRN (Reason: pain) Patient Comments: TAKE ONE-HALF TO 1 (ONE) Tablet every EIGHT hours as needed for pain in leg] cephalexin 500 mg capsule 500 mg PO .COMPLEX Patient Comments: has 20 more capsules left in pill bottle Rx Instructions: 500 mg orally qid X10 days; Referrals / Follow Up: Jason Benitez MD [Primary Care Provider] - Disposition Disposition (needs filled in before D/C Order can be placed): Nursing Home Facility Charges/Coding Visit Charges Inpatient E&M: 52447 Disch Hosp >30min
--- NOTE | 2023-04-19 13:46 | CASEMGMT ---
Discharge Planning Discharge orders, signed med list and transport time sent to [facility] via [facility]. [facility] will transport patient by wheelchair at 3p. Nursing, patient, and SW notified. Both caregiver and son's phones were not answered. Rosario Jensen, Discharge Planning Asst.
[2023-04-19 16:51] VITALS: BP 153/83; PULSE 83; RESP 18; TEMP 37.3; O2SAT 98
--- NOTE | 2023-04-19 16:53 | CASEMGMT ---
Pt refusing to be transported by ambulance stating her nephew promised to take her. Phone call to pt niece Amy and inquired. Amy was unaware of this. Amy talked to family and returned call stating nephew would transport. dc office assistant receptionist to update CC. CURT [place]
== END 2023-04-19 17:15 | disposition skilled nursing facility (03) ==
LOC: ED 15:21 → MS3 15:50
PROVIDERS: Admitting Provider Internal Medicine; Emergency Provider Emergency Medicine; PCP Family Medicine; Visit Provider Internal Medicine
DX: R62.7 Adult failure to thrive (principal); I13.0 Hypertensive heart and chronic kidney disease with heart failure and stage 1 through stage 4 chronic kidney disease, or unspecified chronic kidney disease; I50.42 Chronic combined systolic (congestive) and diastolic (congestive) heart failure; I42.8 Other cardiomyopathies; I27.29 Other secondary pulmonary hypertension; E66.01 Morbid (severe) obesity due to excess calories; D69.0 Allergic purpura; N18.32 Chronic kidney disease, stage 3b; M53.3 Sacrococcygeal disorders, not elsewhere classified; E78.2 Mixed hyperlipidemia; I87.2 Venous insufficiency (chronic) (peripheral); I25.10 Atherosclerotic heart disease of native coronary artery without angina pectoris; Z86.16 Personal history of COVID-19; Z68.38 Body mass index [BMI] 38.0-38.9, adult; R26.2 Difficulty in walking, not elsewhere classified; R53.1 Weakness; R42 Dizziness and giddiness; L03.115 Cellulitis of right lower limb; L03.116 Cellulitis of left lower limb; Z91.81 History of falling; K21.9 Gastro-esophageal reflux disease without esophagitis; I25.2 Old myocardial infarction; E55.9 Vitamin D deficiency, unspecified; Z79.899 Other long term (current) drug therapy; I89.0 Lymphedema, not elsewhere classified
CPT/HCPCS: 36415; 72170; 80048; 80053; 81001; 83605; 84100; 85025; 85652; 86140; 93970; 94668; 96372; 96374; 97110; 97116; 97162; 97166; 97530; 97535; 99221; 99285; P9612; A4216; G0378; J2405

== ENCOUNTER 2023-05-24 07:16 | Emergency (ER) | payer MEDICARE, SELFPAY ==
[2023-05-24 07:17] VITALS: BP 139/88; PULSE 75; RESP 16; TEMP 36.4; O2SAT 98
--- NOTE | 2023-05-24 07:37 | VDLE_ITS ---
Reason For Study: LLE EDEMA Procedure LEFT This is a venous duplex using B-mode, color GSV is normal. flow and spectral Doppler. CFV is compressible, spontaneous, phasic, Exam performed portable in ED. competent, and demonstrates normal The exam was diagnostic. augmentation. The study was technically difficult. FV is compressible, spontaneous, phasic, A preliminary report was called and/or faxed competent and demonstrates normal to Dr. Augustin. augmentation. POP V is compressible, spontaneous, phasic, competent and demonstrates normal augmentation. T/P Trunk is compressible. PTV is compressible. LT PerV is compressible. Unable to visualize distal calf vessels due to open wounds and blisters. VL/Venous Duplex US, Unilateral Interpretation Summary Deep veins of the left lower extremity are patent and compressible segmentally. There is no evidence of left lower extremity deep vein thrombosis. Valvular competence appears intac t within the proximal deep venous system on the left . The left great saphenous vein appears patent a nd compressible segmentally. The distal calf veins were not visualized due to the presence of o pen wounds and blisters. Ordering Physician: Sage Augustin Referring Physician: Jason Benitez MD Performed By: Felipe Walsh RVT
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
[2023-05-24 08:03] VITALS: BMI 36.8
[2023-05-24 08:38] LABS: Absolute Lymphocyte Count 0.36 X10^3/uL (0.83-4.51); Absolute Neutrophil Count 6.4 X10^3/uL (2.0-7.7); Basophil# 0.04 X10^3/uL; Basophil% 0.5 % (0-1); Differential Indicated SCAN CRITERIA MET; Eosinophil# 0.19 X10^3/uL; Eosinophils% 2.5 % (0-5); Hematocrit 37.4 % (37-47); Hemoglobin 11.5 g/dL (12.0-15.0); Lymphocyte # 0.36 X10^3/ul (0.83-4.51); Lymphocyte % 4.8 % (19-41); Mean Corp Hgb Conc 30.7 g/dL (32-36); Mean Corpuscular Hgb 27.8 pg (27.0-32.0); Mean Corpuscular Volume 90.3 fL (81-99); Mean Platelet Vol. 9.8 fl (6.2-12.0); Monocyte# 0.48 X10^3/uL; Monocyte% 6.4 % (0-10); NRBC Flagged by Analyzer 0 % (0-5); Neutrophil # 6.42 X10^3/uL (2.7-7.7); Neutrophil % 85.4 % (47-70); POSITIVE DIFFERENTIAL YES; Platelet Count 216 K/mm3 (150-450); RBC Distribution Width CV 15.9 % (11.6-14.6); RBC Distribution Width SD 53.1 fl (35.1-43.9); Red Blood Count 4.14 M/mm3 (4.2-5.4); White Blood Count 7.5 K/mm3 (4.4-11.0)
[2023-05-24 08:53] LABS: Anion Gap 4 (5-15); BUN 21 mg/dL (7-18); BUN/Creat Ratio 15.3 RATIO (10-20); Chloride 108 mmol/L (98-107); Creatinine, Serum 1.37 mg/dL (0.55-1.02); EST Glomerular Filtration Rate 39 mL/min (>60); Est Glom Filt Rate - Afr Amer 47 mL/min (>60); Estimated Creatinine Clearance 39.86 ml/min; Glucose 100 mg/dL (74-106); Potassium 4.6 mmol/L (3.5-5.1); Sodium Level 138 mmol/L (136-145)
[2023-05-24] MEDS: Cefazolin 1 GM/5 ML Vial IM (09:36)
--- NOTE | 2023-05-24 10:13 | CM.ED ---
Social Work SW performed chart review; ADs on file as of 2016. Patient's HCPOA is patient's nephew, Anson and alternates are Amy and Mir. Vannesa Araiza MSW, DARLENE
== END 2023-05-24 10:23 | disposition home or self-care (01) ==
PROVIDERS: Emergency Provider Emergency Medicine; PCP Family Medicine; Visit Provider Emergency Medicine
DX: L03.116 Cellulitis of left lower limb (principal); I50.42 Chronic combined systolic (congestive) and diastolic (congestive) heart failure; I89.0 Lymphedema, not elsewhere classified; I25.10 Atherosclerotic heart disease of native coronary artery without angina pectoris; N18.9 Chronic kidney disease, unspecified; I25.2 Old myocardial infarction; E66.9 Obesity, unspecified; Z86.16 Personal history of COVID-19; Z86.73 Personal history of transient ischemic attack (TIA), and cerebral infarction without residual deficits
CPT/HCPCS: 99281 ×2; 80048; 85025; 93971; 96372; 99282; A4216

== ENCOUNTER → 2023-06-03 | Outpatient (CLI) | payer MEDICARE, SELFPAY ==
[2023-06-03 18:26] LABS: Anion Gap 6 (5-15); BUN 20 mg/dL (7-18); BUN/Creat Ratio 18.7 RATIO (10-20); Calcium,Total 9.3 mg/dL (8.5-10.1); Chloride 102 mmol/L (98-107); Creatinine, Serum 1.07 mg/dL (0.55-1.02); EST Glomerular Filtration Rate 52 mL/min (>60); Est Glom Filt Rate - Afr Amer 63 mL/min (>60); Glucose 89 mg/dL (74-106); Potassium 3.8 mmol/L (3.5-5.1); Sodium Level 136 mmol/L (136-145)
== END | disposition home or self-care (01) ==
PROVIDERS: PCP Family Medicine; Visit Provider Family Medicine
DX: I50.30 Unspecified diastolic (congestive) heart failure (principal)
CPT/HCPCS: 36415; 80048

== ENCOUNTER → 2023-06-10 | Outpatient (CLI) | payer MEDICARE, SELFPAY ==
[2023-06-10 15:54] LABS: Anion Gap 8 (5-15); BUN 34 mg/dL (7-18); BUN/Creat Ratio 10.1 RATIO (10-20); Calcium,Total 9.5 mg/dL (8.5-10.1); Chloride 98 mmol/L (98-107); Creatinine, Serum 3.36 mg/dL (0.55-1.02); EST Glomerular Filtration Rate 14 mL/min (>60); Est Glom Filt Rate - Afr Amer 17 mL/min (>60); Glucose 90 mg/dL (74-106); Magnesium 2.8 mg/dL (1.6-2.6); Potassium 4.2 mmol/L (3.5-5.1); Sodium Level 133 mmol/L (136-145)
== END | disposition home or self-care (01) ==
PROVIDERS: PCP Family Medicine; Referring Provider Family Medicine; Visit Provider Family Medicine
DX: Z79.899 Other long term (current) drug therapy (principal)
CPT/HCPCS: 36415; 80048; 83735

== ENCOUNTER 2023-06-18 14:38 | Outpatient (CLI) | payer MEDICARE, SELFPAY ==
[2023-06-18 18:24] LABS: Anion Gap 5 (5-15); BUN 25 mg/dL (7-18); BUN/Creat Ratio 15.7 RATIO (10-20); Calcium,Total 9.3 mg/dL (8.5-10.1); Chloride 105 mmol/L (98-107); Creatinine, Serum 1.59 mg/dL (0.55-1.02); EST Glomerular Filtration Rate 33 mL/min (>60); Est Glom Filt Rate - Afr Amer 40 mL/min (>60); Glucose 99 mg/dL (74-106); Potassium 4.3 mmol/L (3.5-5.1); Sodium Level 138 mmol/L (136-145)
== END 2023-06-18 23:59 | disposition home or self-care (01) ==
LOC: MFPLAB 14:45
PROVIDERS: PCP Family Medicine; Visit Provider Family Medicine
DX: Z79.899 Other long term (current) drug therapy (principal)
CPT/HCPCS: 36415; 80048

== ENCOUNTER → 2023-07-01 | Outpatient (CLI) | payer MEDICARE, SELFPAY ==
[2023-07-01 17:39] LABS: Absolute Lymphocyte Count 1.24 X10^3/uL (0.83-4.51); Absolute Neutrophil Count 3.6 X10^3/uL (2.0-7.7); Basophil# 0.05 X10^3/uL; Basophil% 0.9 % (0-1); Eosinophil# 0.14 X10^3/uL; Eosinophils% 2.5 % (0-5); Hematocrit 35.8 % (37-47); Hemoglobin 11.1 g/dL (12.0-15.0); Lymphocyte # 1.24 X10^3/ul (0.83-4.51); Mean Corpuscular Hgb 27.9 pg (27.0-32.0); Mean Corpuscular Volume 89.9 fL (81-99); Mean Platelet Vol. 10.3 fl (6.2-12.0); Monocyte# 0.59 X10^3/uL; Monocyte% 10.5 % (0-10); NRBC Flagged by Analyzer 0 % (0-5); Neutrophil # 3.59 X10^3/uL (2.7-7.7); Neutrophil % 63.7 % (47-70); Platelet Count 221 K/mm3 (150-450); RBC Distribution Width CV 15.2 % (11.6-14.6); RBC Distribution Width SD 50.4 fl (35.1-43.9); Red Blood Count 3.98 M/mm3 (4.2-5.4); White Blood Count 5.6 K/mm3 (4.4-11.0)
[2023-07-01 18:07] LABS: ALB/GLOB Ratio 0.7 RATIO (0.9-2.4); AST(SGOT) 14 U/L (15-37); Alanine Aminotransfer ALT/SGPT 13 U/L (13-56); Albumin, Serum 2.9 g/dL (3.2-5.0); Alkaline Phosphatase 83 U/L (45-117); Anion Gap 6 (5-15); BUN 14 mg/dL (7-18); BUN/Creat Ratio 14.6 RATIO (10-20); Calcium,Total 9.1 mg/dL (8.5-10.1); Chloride 105 mmol/L (98-107); Creatinine, Serum 0.96 mg/dL (0.55-1.02); EST Glomerular Filtration Rate 59 mL/min (>60); Est Glom Filt Rate - Afr Amer 71 mL/min (>60); Globulin 4.4 g/dL (2.2-4.2); Glucose 94 mg/dL (74-106); Magnesium 2.5 mg/dL (1.6-2.6); Potassium 3.9 mmol/L (3.5-5.1); Protein, Total 7.3 g/dL (6.4-8.2); Sodium Level 139 mmol/L (136-145)
== END | disposition home or self-care (01) ==
LOC: MFPLAB 14:58 → MTLAB 15:06
PROVIDERS: PCP Family Medicine; Referring Provider Family Medicine; Visit Provider Family Medicine
DX: N18.32 Chronic kidney disease, stage 3b (principal)
CPT/HCPCS: 36415; 80053; 83735; 85025

== ENCOUNTER → 2023-12-17 | Outpatient (CLI) | payer MEDICARE, SELFPAY ==
[2023-12-17 17:36] LABS: Absolute Lymphocyte Count 0.86 X10^3/uL (0.83-4.51); Absolute Neutrophil Count 6.3 X10^3/uL (2.0-7.7); Basophil# 0.03 X10^3/uL; Basophil% 0.4 % (0-1); Eosinophil# 0.15 X10^3/uL; Eosinophils% 1.9 % (0-5); Hematocrit 37.6 % (37-47); Hemoglobin 11.7 g/dL (12.0-15.0); Lymphocyte # 0.86 X10^3/ul (0.83-4.51); Lymphocyte % 10.6 % (19-41); Mean Corp Hgb Conc 31.1 g/dL (32-36); Mean Corpuscular Hgb 27.5 pg (27.0-32.0); Mean Corpuscular Volume 88.3 fL (81-99); Mean Platelet Vol. 10.3 fl (6.2-12.0); Monocyte# 0.78 X10^3/uL; Monocyte% 9.6 % (0-10); NRBC Flagged by Analyzer 0 % (0-5); Neutrophil # 6.25 X10^3/uL (2.7-7.7); Neutrophil % 77.3 % (47-70); Platelet Count 187 K/mm3 (150-450); RBC Distribution Width CV 14.5 % (11.6-14.6); RBC Distribution Width SD 46.5 fl (35.1-43.9); Red Blood Count 4.26 M/mm3 (4.2-5.4); White Blood Count 8.1 K/mm3 (4.4-11.0)
[2023-12-17 19:10] LABS: ALB/GLOB Ratio 0.7 RATIO (0.9-2.4); AST(SGOT) 12 U/L (15-37); Alanine Aminotransfer ALT/SGPT 12 U/L (13-56); Albumin, Serum 2.9 g/dL (3.2-5.0); Alkaline Phosphatase 86 U/L (45-117); Anion Gap 4 (5-15); BUN 15 mg/dL (7-18); BUN/Creat Ratio 12.9 RATIO (10-20); Calcium,Total 9.1 mg/dL (8.5-10.1); Chloride 108 mmol/L (98-107); Creatinine, Serum 1.16 mg/dL (0.55-1.02); EST Glomerular Filtration Rate 47 mL/min (>60); Est Glom Filt Rate - Afr Amer 57 mL/min (>60); Globulin 4.2 g/dL (2.2-4.2); Glucose 113 mg/dL (74-106); Magnesium 2.3 mg/dL (1.6-2.6); Potassium 3.8 mmol/L (3.5-5.1); Protein, Total 7.1 g/dL (6.4-8.2); Sodium Level 140 mmol/L (136-145)
[2023-12-18 12:01] LABS: BNP,B-Type NATRIURETIC PEPTIDE 119.1 pg/mL (0-100)
== END | disposition home or self-care (01) ==
LOC: MTLAB 15:39
PROVIDERS: PCP Family Medicine; Referring Provider Family Medicine; Visit Provider Family Medicine
DX: I73.9 Peripheral vascular disease, unspecified (principal); I50.812 Chronic right heart failure; I50.42 Chronic combined systolic (congestive) and diastolic (congestive) heart failure; E88.09 Other disorders of plasma-protein metabolism, not elsewhere classified
CPT/HCPCS: 36415; 80053; 83735; 83880; 85025

== ENCOUNTER → 2024-02-04 | Outpatient (CLI) | payer MEDICARE, SELFPAY ==
[2024-02-04 16:59] LABS: ALB/GLOB Ratio 0.7 RATIO (0.9-2.4); AST(SGOT) 24 U/L (15-37); Alanine Aminotransfer ALT/SGPT 14 U/L (13-56); Albumin, Serum 3.1 g/dL (3.2-5.0); Alkaline Phosphatase 88 U/L (45-117); Anion Gap 4 (5-15); BUN 21 mg/dL (7-18); BUN/Creat Ratio 17.5 RATIO (10-20); Calcium,Total 9.4 mg/dL (8.5-10.1); Chloride 104 mmol/L (98-107); Cholesterol 200 mg/dL (200); EST Glomerular Filtration Rate 45 mL/min (>60); Est Glom Filt Rate - Afr Amer 55 mL/min (>60); Globulin 4.3 g/dL (2.2-4.2); Glucose 87 mg/dL (74-106); High Density Lipoprotein 71 mg/dL; Potassium 4.8 mmol/L (3.5-5.1); Protein, Total 7.4 g/dL (6.4-8.2); Sodium Level 136 mmol/L (136-145); Triglycerides 139 mg/dL; Very Low Density Lipoprotein 28 mg/dL (5-40)
== END | disposition home or self-care (01) ==
LOC: LAB 15:02
PROVIDERS: PCP Family Medicine; Referring Provider Internal Medicine Cardiovascular Disease; Visit Provider Internal Medicine Cardiovascular Disease
DX: I50.41 Acute combined systolic (congestive) and diastolic (congestive) heart failure (principal); I25.10 Atherosclerotic heart disease of native coronary artery without angina pectoris
CPT/HCPCS: 36415; 80053; 80061

== ENCOUNTER 2024-02-07 21:56 | Observation (INO) | payer MEDICARE, SELFPAY ==
[2024-02-07 21:57] VITALS: BP 169/67; PULSE 64; RESP 17; TEMP 36.6; O2SAT 99
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
--- NOTE | 2024-02-07 22:28 | US_ITS ---
INDICATION: left leg pain EXAMINATION: Ultrasound US Venous Duplex LE Unilat / Limited TECHNIQUE: Feliep scale, pulse wave, and color flow Doppler imaging was performed of the lower extremity venous system. The left greater saphenous, common femoral, femoral, and popliteal veins were interrogated. COMPARISON: Prior study dated: 05/24/2023 FINDINGS: Edema and swelling limits evaluation. This limits compressibility of the venous structures. The mid to distal aspect of the femoral vein are therefore not fully evaluated. There is otherwise normal compression, augmentation, and signal throughout the visualized deep lower extremity veins. No mass or fluid collection. US/Venous Duplex Imag/Limited/Uni IMPRESSION: Evaluation limited due to diffuse edema. Limited study with no definite DVT identified. Electronically Signed: Cy Francis MD at 0:34 EDT ,
[2024-02-07] MEDS: oxyCODONE 5 MG Tablet PO (22:30)
--- NOTE | 2024-02-07 22:30 | RAD_ITS ---
INDICATION: pain EXAMINATION/TECHNIQUE: X-RAY - LEFT XR Tibia/Fibula 2 Views 4 images COMPARISON: Prior study dated: 06/26/2021 FINDINGS: SOFT TISSUES: Diffuse soft tissue swelling. Similar appearance to prior. Some calcification in the soft tissues laterally. No radiopaque foreign body. BONES/JOINTS: No acute fracture or subluxation.. Normal alignment. Preservation of the joint space.. No sclerotic or destructive changes observed. RAD/Tibia & Fibula 2 Views IMPRESSION: No fracture or malalignment. Diffuse soft tissue swelling. Similar appearance to prior. Electronically Signed: Cy Francis MD at 23:32 EDT ,
[2024-02-07 22:31] VITALS: BMI 37.5
[2024-02-08] VITALS (8 sets, daily range): BP systolic 124–156; BP diastolic 54–95; PULSE 59–66; RESP 15–18; TEMP 36.3–36.8; O2SAT 97–99; BMI 36.3
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
[2024-02-08 01:53] LABS: Absolute Lymphocyte Count 1.25 X10^3/uL (0.83-4.51); Absolute Neutrophil Count 5.6 X10^3/uL (2.0-7.7); Basophil# 0.04 X10^3/uL; Basophil% 0.5 % (0-1); Eosinophil# 0.17 X10^3/uL; Eosinophils% 2.2 % (0-5); Hematocrit 36.6 % (37-47); Hemoglobin 11.5 g/dL (12.0-15.0); Lymphocyte # 1.25 X10^3/ul (0.83-4.51); Mean Corp Hgb Conc 31.4 g/dL (32-36); Mean Corpuscular Hgb 27.3 pg (27.0-32.0); Mean Corpuscular Volume 86.9 fL (81-99); Mean Platelet Vol. 10.3 fl (6.2-12.0); Monocyte# 0.68 X10^3/uL; Monocyte% 8.7 % (0-10); NRBC Flagged by Analyzer 0 % (0-5); Neutrophil # 5.64 X10^3/uL (2.7-7.7); Neutrophil % 72.2 % (47-70); Platelet Count 191 K/mm3 (150-450); RBC Distribution Width CV 14.6 % (11.6-14.6); RBC Distribution Width SD 46.8 fl (35.1-43.9); Red Blood Count 4.21 M/mm3 (4.2-5.4); White Blood Count 7.8 K/mm3 (4.4-11.0)
[2024-02-08] MEDS: Acetaminophen 325 MG Tablet 650 MG PO ×2 (02:35→12:45)
[2024-02-08] MEDS: oxyCODONE 5 MG Tablet PO ×3 (02:36→17:47)
[2024-02-08 04:23] LABS: Anion Gap 6 (5-15); BUN 30 mg/dL (7-18); BUN/Creat Ratio 22.4 RATIO (10-20); Calcium,Total 9.3 mg/dL (8.5-10.1); Chloride 105 mmol/L (98-107); Creatinine, Serum 1.34 mg/dL (0.55-1.02); EST Glomerular Filtration Rate 40 mL/min (>60); Est Glom Filt Rate - Afr Amer 48 mL/min (>60); Estimated Creatinine Clearance 29.06 ml/min; Glucose 106 mg/dL (74-106); Potassium 4.2 mmol/L (3.5-5.1); Sodium Level 136 mmol/L (136-145)
[2024-02-08] MEDS: Menthol/Lanolin/Calamine/Znox 113 GM Tube 1 APPLIC TOPICAL ×3 (06:26→19:55)
[2024-02-08] MEDS: Nystatin Powder 15gm Bottle 1 APPLIC TOPICAL ×3 (06:27→19:54)
[2024-02-08] MEDS: Carvedilol 6.25 MG Tablet PO ×2 (09:08→19:54)
[2024-02-08] MEDS: Potassium Chloride Oral Tablet 20 MEQ PO (09:09)
[2024-02-08] MEDS: Furosemide 40 MG Tablet PO (09:09)
[2024-02-08] MEDS: Cholecalciferol (VIT D3) 25 MCG TABLET (1,000 UNITS) PO (09:10)
[2024-02-08] MEDS: Pantoprazole Sodium 40 MG Tablet PO ×2 (09:10→19:55)
[2024-02-08] MEDS: Lisinopril 10 MG Tablet PO ×2 (09:10→19:55)
[2024-02-08] MEDS: 0.9% Saline Lock 10 ML Syringe IV (09:18)
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
--- NOTE | 2024-02-08 13:13 | CASEMGMT ---
IRAM WHALEY NOTE: Intro role of CM to patient and GUZMÁN form explained re: Observation status for treatment of left lower extremity pain and swelling.? Explained hospitalization will be paid per?her insurance policy for Outpatient billing?and condition will continue to be evaluated for Inpt necessity. Also let pt know that [facility] sends paper in the billing packet with their phone number if questions arise. Pt verbalizes understanding and does not have further questions. ?Form signed, copy made and placed in chart, and original given to pt. Pt provided w/medical alert info and Heating And Ventilating Tender list. Liyah MONTERON RN CM
[2024-02-09 02:39] VITALS: BP 102/83; PULSE 65; RESP 16; TEMP 36.7; O2SAT 98
[2024-02-09] MEDS: Nystatin Powder 15gm Bottle 1 APPLIC TOPICAL ×2 (05:00→13:14)
[2024-02-09] MEDS: Menthol/Lanolin/Calamine/Znox 113 GM Tube 1 APPLIC TOPICAL ×2 (05:00→13:14)
[2024-02-09 05:04] VITALS: BP 144/58; PULSE 69; RESP 16; TEMP 36.7; O2SAT 97
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
[2024-02-09 09:03] VITALS: BP 137/66; PULSE 73; RESP 18; TEMP 36.4; O2SAT 97
[2024-02-09] MEDS: Carvedilol 6.25 MG Tablet PO (09:15)
[2024-02-09] MEDS: Potassium Chloride Oral Tablet 20 MEQ PO (09:15)
[2024-02-09] MEDS: Pantoprazole Sodium 40 MG Tablet PO (09:15)
[2024-02-09] MEDS: Furosemide 40 MG Tablet PO (09:15)
[2024-02-09] MEDS: Enoxaparin 30 MG/0.3 ML Syringe SC (09:16)
[2024-02-09] MEDS: Cholecalciferol (VIT D3) 25 MCG TABLET (1,000 UNITS) PO (09:16)
[2024-02-09] MEDS: Lisinopril 10 MG Tablet PO (09:17)
[2024-02-09] MEDS: 0.9% Saline Lock 10 ML Syringe IV (09:23)
--- NOTE | 2024-02-09 09:33 | DCINST_ITS ---
Discharge Instructions Diet Discharge Diet: Low fat / Low cholesterol Activity Discharge Activity: Return to Normal Activity Dressing / Incision Call your doctor if you observe: Fever of 101 or Higher, Shortness of breath, Dizziness, Fainting spells, Swelling in the ankles, Chest pain and Increased palpitations (irregular heartbeat) Follow Up Care Test Results: Test results from this visit will be discussed in further detail at your follow- up appointment, if applicable. Discharge Plan Admission Admit Date/Time: 02/08/24 00:51 Attending Provider: Monty Piper Primary Care Provider: Jason Benitez Consulting Providers: Sabas Hoskins Instructions Additional Instructions / Restrictions: Recommend outpatient physical therapy. Follow-up with your PCP in 1 week to monitor your renal function Discharge Orders/Prescriptions Prescriptions: Continued pantoprazole [Protonix] 40 mg tablet,delayed release (DR/EC) 40 mg PO Q12H potassium chloride 20 mEq tablet,ER particles/crystals 20 meq PO DAILY Qty: 30 Patient Comments: TAKE 1 TABLET BY MOUTH DAILY albuterol sulfate 90 mcg/actuation HFA aerosol inhaler 1 inh inhalation ONCE PRN (Reason: shortness of breath or wheezing) Qty: 6.7 0RF torsemide 20 mg tablet 20 mg PO DAILY cholecalciferol (vitamin D3) 1,000 UNIT capsule 1,000 unit PO DAILY docusate sodium [Colace] 100 mg capsule 100 mg PO DAILY PRN (Reason: constipation) acetaminophen [Acetaminophen Extra Strength] 500 mg tablet 500 mg PO Q6H PRN (Reason: pain) carvedilol 6.25 mg tablet 6.25 mg PO BID Qty: 180 3RF Rx Instructions: must administer with a meal/food lisinopril 10 mg tablet 10 mg PO BID Qty: 180 3RF Referrals / Follow Up: Jason Benitez MD [Primary Care Provider] - Within 1 Week Disposition Disposition (needs filled in before D/C Order can be placed): Home, Self Care
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
== END 2024-02-09 15:00 | disposition home or self-care (01) ==
LOC: ED 02-08 00:50 → MS3 02-08 01:08
PROVIDERS: Admitting Provider Hospitalist; Emergency Provider Emergency Medicine; PCP Family Medicine; Referring Provider Hospitalist; Visit Provider Family Medicine
DX: I89.0 Lymphedema, not elsewhere classified (principal); D69.3 Immune thrombocytopenic purpura; I11.0 Hypertensive heart disease with heart failure; I50.42 Chronic combined systolic (congestive) and diastolic (congestive) heart failure; I27.21 Secondary pulmonary arterial hypertension; I42.8 Other cardiomyopathies; R53.1 Weakness; Z68.36 Body mass index [BMI] 36.0-36.9, adult; E66.9 Obesity, unspecified; I25.10 Atherosclerotic heart disease of native coronary artery without angina pectoris; E78.2 Mixed hyperlipidemia; D64.9 Anemia, unspecified; K21.9 Gastro-esophageal reflux disease without esophagitis; R26.2 Difficulty in walking, not elsewhere classified; M19.90 Unspecified osteoarthritis, unspecified site; Z79.899 Other long term (current) drug therapy; Z66 Do not resuscitate; M79.89 Other specified soft tissue disorders
CPT/HCPCS: 36415; 73590; 80048; 85025; 93971; 96372; 97162; 97166; 97530; 99221; 99283; J7120; A4216; G0378

== ENCOUNTER → 2024-08-11 | Outpatient (CLI) | payer MEDICARE, SELFPAY ==
[2024-08-11 17:50] LABS: Absolute Lymphocyte Count 1.51 X10^3/uL (0.83-4.51); Absolute Neutrophil Count 4.2 X10^3/uL (2.0-7.7); Basophil# 0.04 X10^3/uL; Basophil% 0.6 % (0-1); Eosinophil# 0.21 X10^3/uL; Eosinophils% 3.2 % (0-5); Hematocrit 39.7 % (37-47); Hemoglobin 12.3 g/dL (12.0-15.0); Lymphocyte # 1.51 X10^3/ul (0.83-4.51); Lymphocyte % 23.2 % (19-41); Mean Corpuscular Hgb 27.5 pg (27.0-32.0); Mean Corpuscular Volume 88.6 fL (81-99); Mean Platelet Vol. 10.5 fl (6.2-12.0); Monocyte# 0.56 X10^3/uL; Monocyte% 8.6 % (0-10); NRBC Flagged by Analyzer 0 % (0-5); Neutrophil # 4.18 X10^3/uL (2.7-7.7); Neutrophil % 64.4 % (47-70); Platelet Count 220 K/mm3 (150-450); RBC Distribution Width CV 13.7 % (11.6-14.6); RBC Distribution Width SD 44.5 fl (35.1-43.9); Red Blood Count 4.48 M/mm3 (4.2-5.4); White Blood Count 6.5 K/mm3 (4.4-11.0)
[2024-08-11 18:15] LABS: ALB/GLOB Ratio 0.8 RATIO (0.9-2.4); AST(SGOT) 13 U/L (15-37); Alanine Aminotransfer ALT/SGPT 13 U/L (13-56); Albumin, Serum 3.2 g/dL (3.2-5.0); Alkaline Phosphatase 86 U/L (45-117); Anion Gap 4 (5-15); BUN 16 mg/dL (7-18); Calcium,Total 9.6 mg/dL (8.5-10.1); Chloride 108 mmol/L (98-107); EST Glomerular Filtration Rate 56 mL/min (>60); Est Glom Filt Rate - Afr Amer 68 mL/min (>60); Globulin 4.2 g/dL (2.2-4.2); Glucose 91 mg/dL (74-106); Potassium 3.9 mmol/L (3.5-5.1); Protein, Total 7.4 g/dL (6.4-8.2); Sodium Level 139 mmol/L (136-145)
== END | disposition home or self-care (01) ==
LOC: MTLAB 16:42
PROVIDERS: PCP Family Medicine; Referring Provider Family Medicine; Visit Provider Family Medicine
DX: I50.42 Chronic combined systolic (congestive) and diastolic (congestive) heart failure (principal)
CPT/HCPCS: 36415; 80053; 83880; 85025

== ENCOUNTER 2024-11-10 14:17 | Emergency (ER) | payer MEDICARE, SELFPAY ==
[2024-11-10 14:18] VITALS: BP 158/81; PULSE 77; RESP 14; TEMP 36.6; O2SAT 99
[2024-11-10 14:21] VITALS: BP 170/71; PULSE 77; RESP 17; TEMP 36.6; O2SAT 99; BMI 36.4
[2024-11-10 15:21] VITALS: BP 176/98; PULSE 77; RESP 18; TEMP 36.6; O2SAT 99
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
[2024-11-10 15:48] LABS: Absolute Lymphocyte Count 0.94 X10^3/uL (0.83-4.51); Basophil# 0.03 X10^3/uL; Basophil% 0.4 % (0-1); Eosinophils% 1.5 % (0-5); Hematocrit 39.6 % (37-47); Hemoglobin 12.6 g/dL (12.0-15.0); Lymphocyte # 0.94 X10^3/ul (0.83-4.51); Mean Corp Hgb Conc 31.8 g/dL (32-36); Mean Corpuscular Hgb 27.8 pg (27.0-32.0); Mean Corpuscular Volume 87.4 fL (81-99); Monocyte# 0.66 X10^3/uL; Monocyte% 9.8 % (0-10); NRBC Flagged by Analyzer 0 % (0-5); Neutrophil # 4.96 X10^3/uL (2.7-7.7); Platelet Count 192 K/mm3 (150-450); RBC Distribution Width CV 14.3 % (11.6-14.6); RBC Distribution Width SD 45.3 fl (35.1-43.9); Red Blood Count 4.53 M/mm3 (4.2-5.4); White Blood Count 6.7 K/mm3 (4.4-11.0)
[2024-11-10 16:00] VITALS: BP 176/98; PULSE 68; RESP 17; TEMP 36.6; O2SAT 100
[2024-11-10 16:19] LABS: Anion Gap 9 (5-15); BUN 17 mg/dL (4-19); Calcium,Total 9.3 mg/dL (7.6-11.0); Carbon Dioxide 23.8 mmol/L (21.0-32.0); Chloride 106 mmol/L (98-108); Creatinine, Serum 0.96 mg/dL (0.70-1.20); EST Glomerular Filtration Rate 58 (>60); Estimated Creatinine Clearance 40.63 ml/min (50-250); Glucose 85 mg/dL (70-99); Potassium 4.3 mmol/L (3.3-5.1); Sodium Level 138 mmol/L (133-145)
[2024-11-10 17:00] VITALS: BP 153/69; PULSE 69; RESP 19; TEMP 36.6; O2SAT 99
[2024-11-10 18:51] VITALS: BP 149/74; PULSE 78; RESP 16; TEMP 36.6; O2SAT 97
== END 2024-11-10 18:53 | disposition home or self-care (01) ==
PROVIDERS: Emergency Provider Emergency Medicine; PCP Family Medicine; Visit Provider Emergency Medicine
DX: I87.2 Venous insufficiency (chronic) (peripheral) (principal); I11.0 Hypertensive heart disease with heart failure; I50.42 Chronic combined systolic (congestive) and diastolic (congestive) heart failure; L03.116 Cellulitis of left lower limb; I89.0 Lymphedema, not elsewhere classified; I25.10 Atherosclerotic heart disease of native coronary artery without angina pectoris; I25.2 Old myocardial infarction; E66.9 Obesity, unspecified; Z86.73 Personal history of transient ischemic attack (TIA), and cerebral infarction without residual deficits; Z86.16 Personal history of COVID-19
CPT/HCPCS: 80048; 85025; 87040; 99282; A4216

== ENCOUNTER → 2025-02-19 | Outpatient (CLI) | payer MEDICARE, SELFPAY ==
[2025-02-19 15:03] LABS: Absolute Lymphocyte Count 0.98 X10^3/uL (0.83-4.51); Absolute Neutrophil Count 4.8 X10^3/uL (2.0-7.7); Basophil# 0.07 X10^3/uL; Eosinophil# 0.18 X10^3/uL; Eosinophils% 2.6 % (0-5); Hematocrit 36.7 % (37-47); Hemoglobin 11.6 g/dL (12.0-15.0); Lymphocyte # 0.98 X10^3/ul (0.83-4.51); Lymphocyte % 14.2 % (19-41); Mean Corp Hgb Conc 31.6 g/dL (32-36); Mean Corpuscular Hgb 28.3 pg (27.0-32.0); Mean Corpuscular Volume 89.5 fL (81-99); Mean Platelet Vol. 10.1 fl (6.2-12.0); Monocyte% 11.6 % (0-10); NRBC Flagged by Analyzer 0 % (0-5); Neutrophil # 4.84 X10^3/uL (2.7-7.7); Platelet Count 261 K/mm3 (150-450); RBC Distribution Width CV 14.2 % (11.6-14.6); RBC Distribution Width SD 46.7 fl (35.1-43.9); White Blood Count 6.9 K/mm3 (4.4-11.0)
[2025-02-19 15:59] LABS: Anion Gap 11 (5-15); BUN 34 mg/dL (4-19); BUN/Creat Ratio 18.3 RATIO (10-20); Calcium,Total 9.3 mg/dL (7.6-11.0); Carbon Dioxide 28.2 mmol/L (21.0-32.0); Chloride 100 mmol/L (98-108); Creatinine, Serum 1.84 mg/dL (0.70-1.20); EST Glomerular Filtration Rate 26 (>60); Glucose 81 mg/dL (70-99); Potassium 3.7 mmol/L (3.3-5.1); Pro- Brain NATRIURETIC PEPTIDE 719 pg/mL (<=1800); Sodium Level 139 mmol/L (133-145)
== END | disposition home or self-care (01) ==
LOC: LAB 14:26
PROVIDERS: PCP Family Medicine; Referring Provider Internal Medicine Cardiovascular Disease; Visit Provider Internal Medicine Cardiovascular Disease
DX: R06.02 Shortness of breath (principal); I50.42 Chronic combined systolic (congestive) and diastolic (congestive) heart failure; Z51.81 Encounter for therapeutic drug level monitoring; Z79.899 Other long term (current) drug therapy
CPT/HCPCS: 36415; 80048; 83880; 85025

== ENCOUNTER 2025-03-02 10:12 | Emergency (ER) | payer MEDICARE, SELFPAY ==
[2025-03-02] VITALS (8 sets, daily range): BP systolic 103–148; BP diastolic 63–110; PULSE 61–97; RESP 16–20; TEMP 36.1; O2SAT 99–100; BMI 37.5
--- NOTE | 2025-03-02 11:59 | RAD_ITS ---
EXAM: XR Chest, 2 Views CLINICAL INDICATION: SOB TECHNIQUE: Frontal and lateral views of the chest. COMPARISON: No relevant prior studies available. FINDINGS: LUNGS AND PLEURAL SPACES: See below. HEART: Cardiomegaly with mild congestion. MEDIASTINUM: Unremarkable. Normal mediastinal contour. BONES/JOINTS: Unremarkable. No acute fracture. RAD/Chest PA and Lateral IMPRESSION: Cardiomegaly with mild congestion. Reading [facility]
[2025-03-02 12:12] LABS: Hematocrit 34.3 % (37-47); Hemoglobin 10.9 g/dL (12.0-15.0); Immature Granulocytes Count 0.020 X10^3/uL (0.0-0.0); Mean Corp Hgb Conc 31.8 g/dL (32-36); Mean Corpuscular Volume 90.3 fL (81-99); Mean Platelet Vol. 10.4 fl (6.2-12.0); NRBC Flagged by Analyzer 0 % (0-5); Platelet Count 166 K/mm3 (150-450); RBC Distribution Width CV 13.8 % (11.6-14.6); RBC Distribution Width SD 45.3 fl (35.1-43.9); Red Blood Count 3.80 M/mm3 (4.2-5.4); White Blood Count 5.4 K/mm3 (4.4-11.0)
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
[2025-03-02 12:50] LABS: Pro- Brain NATRIURETIC PEPTIDE 900 pg/mL (<=1800)
[2025-03-02 12:53] LABS: Anion Gap 12 (5-15); BUN 37 mg/dL (4-19); BUN/Creat Ratio 26.5 RATIO (10-20); Calcium,Total 9.4 mg/dL (7.6-11.0); Carbon Dioxide 21.4 mmol/L (21.0-32.0); Chloride 105 mmol/L (98-108); Estimated Creatinine Clearance 27.62 ml/min (50-250); Glucose 96 mg/dL (70-99); Potassium 4.8 mmol/L (3.3-5.1)
== END 2025-03-02 15:14 | disposition home or self-care (01) ==
PROVIDERS: Emergency Provider Emergency Medicine; PCP Family Medicine; Visit Provider Emergency Medicine
DX: R06.00 Dyspnea, unspecified (principal); I11.0 Hypertensive heart disease with heart failure; I50.42 Chronic combined systolic (congestive) and diastolic (congestive) heart failure; I89.0 Lymphedema, not elsewhere classified; E78.2 Mixed hyperlipidemia; I25.10 Atherosclerotic heart disease of native coronary artery without angina pectoris; I25.2 Old myocardial infarction; Z79.51 Long term (current) use of inhaled steroids; Z79.899 Other long term (current) drug therapy; Z86.16 Personal history of COVID-19
CPT/HCPCS: 71046; 80048; 83880; 85025; 93005; 99284; A4216

== ENCOUNTER → 2025-03-11 | Outpatient (CLI) | payer MEDICARE, SELFPAY ==
[2025-03-11 18:16] LABS: Hematocrit 37.3 % (37-47); Hemoglobin 11.7 g/dL (12.0-15.0); Immature Granulocytes Count 0.020 X10^3/uL (0.0-0.0); Mean Corp Hgb Conc 31.4 g/dL (32-36); Mean Corpuscular Volume 90.1 fL (81-99); Mean Platelet Vol. 10.4 fl (6.2-12.0); NRBC Flagged by Analyzer 0 % (0-5); Platelet Count 202 K/mm3 (150-450); RBC Distribution Width CV 13.8 % (11.6-14.6); RBC Distribution Width SD 45.3 fl (35.1-43.9); Red Blood Count 4.14 M/mm3 (4.2-5.4); White Blood Count 6.6 K/mm3 (4.4-11.0)
[2025-03-11 18:57] LABS: AST(SGOT) 20 U/L (<=31); Alanine Aminotransfer ALT/SGPT 8 U/L (<=34); Albumin, Serum 3.7 g/dL (3.4-4.8); Alkaline Phosphatase 91 U/L (35-104); Anion Gap 10 (5-15); BUN 38 mg/dL (4-19); BUN/Creat Ratio 21.3 RATIO (10-20); Calcium,Total 9.7 mg/dL (7.6-11.0); Carbon Dioxide 28.1 mmol/L (21.0-32.0); Chloride 101 mmol/L (98-108); Globulin 3.7 g/dL (2.2-4.2); Glucose 84 mg/dL (70-99); Potassium 4.4 mmol/L (3.3-5.1); Pro- Brain NATRIURETIC PEPTIDE 1089 pg/mL (<=1800)
--- OUTSIDE RECORDS SUMMARY | 2025-03-11 20:34 | XMS RPT_ITS | CCD ---
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) Unavailable Unavailable LAUREL BARR Unavailable Unavailable LAUREL BARR Unavailable Unavailable LEONID BALDERAS Unavailable Unavailable MIKE HEAD ZOAB Unavailable UnaNATA Almazan Unavailable Unavailable PROVIDER, UNKNOWN Unavailable Unavailable PROVIDER, UNKNOWN Unavailable Unavailable GEO REILLY Unavailable Unavailable ODALIS BECERRA Unavailable Unavailable Sanchez Jaquna Luz Unavailable Unavailable NATA COTO Unavailable Unavailable Sanchez, Jaquan H Unavailable Unavailable SONIDO MIKE Z Unavailable Unavailable Sanchez, Jaquan H Unavailable Unavailable SONIDO, MIKE Z Unavailable Unavailable Sanchez, Jaquan H Unavailable Unavailable Emmanuel DEAN, Jason Marquez Primary Care Provider Geo Rivera MD Unavailable [phone] Dr. Jason Benitez Primary Care Provider Dr. Deann Kaur Emergency Provider Dr. Alanna Vallejo Admit Provider Dr. Alanna Vallejo Other Provider Dr. Jeremie Marley Attending Provider Dr. Jeremie Marley Other Provider Dr. Tisha Stubbs Attending Provider Dr. Tisha Stubbs Other Provider Dr. Jorge Ramirez Other Provider Dr. Demetrio Hinds Attending Provider Dr. Fidencio Marquez Attending Provider Dr. Demetrio Hinds Referring Provider Dr. Jason Benitez Referring Provider Dr. Jorge Ramirez Attending Provider Dr. Laurel Brumfield Attending Provider Dr. Alanna Vallejo Referring Provider Dr. Kaden Callahan Attending Provider Jason Benitez MD Primary Care Provider Geo Rivera MD Unavailable Dr. Jason Benitez Primary Care Provider Dr. Jason Benitez Referring Provider Roof SILK WORKER, SILK WORKER-C Jaquan Escobar Attending Provider MD Alphonso Newell Attending Provider Dr. Demetrio Hinds Attending Provider Jason Benitez MD Primary Care Provider Geo Rivera MD Unavailable Dr. Jason Benitez Primary Care Provider Dr. Jason Benitez Referring Provider MD Alphonso Newell Attending Provider Dr. Demetrio Hinds Attending Provider Roof SILK WORKER, SILK WORKER-C Jaquan Escobar Attending Provider Jason Benitez MD Primary Care Provider Geo iRvera MD S Unavailable Dr. Jason Benitez Primary Care Provider Dr. Jason Benitez Referring Provider Roof SILK WORKER, SILK WORKER-C Jaquan Escobar Attending Provider Geo Rivera MD S Unavailable Jason Benitez MD Primary Care Provider Jason Benitez MD Primary Care Provider JASON BENITEZ Primary Care Unavailable CHHAYA STACY Attending Unavailable RONNIE FRANK Consulting Unavailable TU GREER Admitting Unavailable Dr. Jason Benitez Primary Care Provider Dr. Jason Benitez Referring Provider Roof SILK WORKER, SILK WORKER-C Jaquan Escobar Attending Provider Dr. Familia Smalls Emergency Provider Dr. Nata Rivers Admit Provider Dr. Nata Rivers Attending Provider TerDr. Nata hall Other Provider Dr. Armand Bob Attending Provider Unavailable Dr. Armand Bob Other Provider Unavailable Dr. Jason Quintanilla Attending Provider TerDr. Nata hall Referring Provider Dr. Kiko Pittman Emergency Provider Dr. Mariusz Waters Admit Provider Dr. Mariusz Waters Other Provider Dr. Laurel Brumfield Attending Provider Jt, Dr. Vee Referring Provider Dr. Jason Benitez Primary Care Provider Dr. Jason Benitez Referring Provider Roof SILK WORKER, SILK WORKER-C Jaquan Escobar Attending Provider Dr. Familia Smalls Emergency Provider Dr. Nata Rivers Admit Provider Dr. Nata Rivers Attending Provider TerDr. Nata hall Other Provider Dr. Armand Bob Attending Provider Unavailable Dr. Armand Bob Other Provider Unavailable Dr. Jason Quintanilla Attending Provider Dr. Nata Rivers Referring Provider Dr. Kiko Pittman Emergency Provider Dr. Mariusz Waters Admit Provider Dr. Mariusz Waters Other Provider [phone] Dr. Laurel Brumfield Attending Provider Dr. Mariusz Waters Referring Provider Dr. Jason Benitez Primary Care Provider [phone] Dr. Jason Benitez Referring Provider BENJAMIN Velazquez Attending Provider [phone] Emmanuel DEAN, Jason A Primary Care Provider Dr. Jason Benitez MD Primary Care Provider Emmanuel DEAN, Dr. Gomez Referring Provider Alphonso Newell MD Attending Provider Emmanuel DEAN, Dr. Gomez Attending Provider Dr. Brad Avalos DO Emergency Provider [phone] BENITEZ, JASON A Primary Care Unavailable CHUKWUANI, CHHAYA A Referring Unavailable LEMON, GRACE Attending Unavailable BENITEZ, JASON A Primary Care Unavailable CHUKWUANI, CHHAYA A Referring Unavailable LEMON, GRACE Attending Unavailable BENITEZ, JASON A Primary Care Unavailable CHUKWUANI, CHHAYA A Referring Unavailable LEMON, GRACE Attending Unavailable BENITEZ, JASON A Primary Care Unavailable LEMON, GRACE Referring Unavailable LEMON, GRACE Attending Unavailable BENITEZ, JASON A Primary Care Unavailable CHUKWUANI, CHHAYA A Referring Unavailable LEMON, GRACE Attending Unavailable BENITEZ, JASON A Primary Care Unavailable CHUKWUANI, CHHAYA A Referring Unavailable LEMON, GRACE Attending Unavailable BENITEZ, JASON A Primary Care Unavailable CHUKWUANI, CHHAYA A Referring Unavailable LEMON, GRACE Attending Unavailable BENITEZ, JASON A Primary Care Unavailable CHUKWUANI, CHHAYA A Referring Unavailable LEMON, GRACE Attending Unavailable BENITEZ, JASON A Primary Care Unavailable CHUKWUANI, CHHAYA A Referring Unavailable LEMON, GRACE Attending Unavailable BENITEZ, JASON A Primary Care Unavailable CHUKWUANI, CHHAYA A Referring Unavailable LEMON, GRACE Attending Unavailable BENITEZ, JASON A Primary Care Unavailable CHUKWUANI, CHHAYA A Referring Unavailable LEMON, GRACE Attending Unavailable BENITEZ, JASON A Primary Care Unavailable CHUKWUANI, CHHAYA A Referring Unavailable LEMON, GRACE Attending Unavailable BENITEZ, JASON A Primary Care Unavailable CHUKWUANI, CHHAYA A Referring Unavailable LEMON, GRACE Attending Unavailable BENITEZ, JASON A Primary Care Unavailable BENITEZ, JASON A Referring Unavailable LEMON, GRACE Attending Unavailable BENITEZ, JASON A Primary Care Unavailable BENITEZ, JASON A Referring Unavailable LEMON, GRACE Attending Unavailable BENITEZ, JASON A Primary Care Unavailable BENITEZ, JASON A Referring Unavailable LEMON, GRACE Attending Unavailable BENITEZ, JASON A Primary Care Unavailable CHUKWUANI, CHHAYA A Referring Unavailable LEMON, GRACE Attending Unavailable BENITEZ, JASON A Primary Care Unavailable CHUKWUANI, CHHAYA A Referring Unavailable LEMON, GRACE Attending Unavailable Emmanuel DEAN, Dr. Gomez Primary Care Provider Dr. Brad Avalos DO Attending Provider Dr. Danial Cook MD Attending Provider Dr. Danial Cook MD Referring Provider Dr. Maalika Yuen DO Emergency Provider Benitez, Jason Primary Care Unavailable Benitez, Jason Attending Unavailable Benitez, Jason Referring Unavailable Benitez, Jason Primary Care Unavailable Danial Cook Referring Unavailable Danial Cook Attending Unavailable Benitez, Jason Primary Care Unavailable Malaika Yuen Attending Unavailable Benitez, Jason Primary Care Unavailable Brad Avalos Attending Unavailable Benitez, Jason Primary Care Unavailable Benitez, Jason Attending Unavailable Benitez, Jason Primary Care Unavailable Alphonso Newell Attending Unavailable Benitez, Ajson Referring Unavailable Benitez, Jason Primary Care Unavailable Benitez, Jason Referring Unavailable Danial Cook Attending Unavailable Danial Cook Attending Unavailable Benitez, Jason Primary Care Unavailable Benitez, Jason Referring Unavailable Amy Morejon Attending Unavail able Benitez, Jason Primary Care Unavailable Benitez, Jason Referring Unavailable Benitez, Jason Referring Unavailable Benitez, Jason Primary Care Unavailable Alphonso Newell Attending Unavailable Benitze, Jason Primary Care Unavailable Alphonso Newell Attending Unavailable Benitez, Jason Referring Unavailable Benitez, Jason Primary Care Unavailable Alphonso Newell Attending Unavailable Benitez, Jason Referring Unavailable Danial Cook Attending Unavailable Danial Cook Referring Unavailable Benitez, Jason Primary Care Unavailable Allergies Allergy Classification Reported Allergen(s) Allergy Type Date of Onset Reaction(s) Facility (20 sources) aspirin; Translations: [ASPIRIN] Drug Allergy 2 Low platelets [facility] [place] Other [facility] (20 sources) dicyclomine; Translations: [DICYCLOMINE HCL] Drug Allergy 1 Hives [facility] [place] Other [facility] (2 sources) OTHER; Translations: [OTHER] Propensity to adverse reactions (disorder) 7 [facility] [place] Other [facility] (20 sources) OTHER [Other] Propensity to adverse reactions 7 [facility] [place] (20 sources) Adhesive Tape-Silicones; Translations: [ADHESIVE TAPE-SILICONES] Drug Intolerance 9 Rash [facility] [place] Work Phone: (20 sources) Adhesive agent; Translations: [adhesive] Allergy to substance 2 [facility] (20 sources) Gadolinium-Cont aining Contrast Media; Translations: [GADOLINIUM-CON TAINING CONTRAST MEDIA] Drug Allergy 3 Shortness of Breath [facility] [place] (11 sources) Gadolinium-Cont aining Contrast Media Drug Allergy 3 Shortness of Breath [facility] [place] Medications Current Medications Medication Drug Class(es) Dates Sig (Normalized) Sig (Original) acetaminophen 500 mg oral tablet (20 sources) Start: 04-15-2023 take 1 tablet by mouth every six hours as needed for pain Acetaminophen (Acetaminophen Extra Strength) 500 mg tablet Active 500 mg PO EVERY 6 HOURS as needed for pain April 15, 2023 12:00am Start: 07-11-2017 take 1 tablet by jessee th every four hours as needed acetaminophen (TYLENOL) 325 mg tablet Take 1 tablet by mouth every 4 hours as needed. 0 07/11/2017 Active Comment on above: Take 1 tablet by jessee th every 4 hours as needed. [id number] 200 actuat albuterol 0.09 mg/actuat metered dose inhaler (4 sources) beta2-Adrenergic Agonist Start: 08-29-2023 Albuterol Sulfate 90 mcg/actuation HFA aerosol inhaler Active 1 NMA INHALATION ONCE as needed for shortness of breath or wheezing 6.7 0 August 29, 2023 1:00am Start: 08-29-2023 Albuterol Sulf ate Active 1 INH INHALATION ONCE 6.7 August 29, 2023 1:00am amoxicillin 875 mg / clavulanate 125 mg oral tablet (20 sources) Penicillin-class Antibacterial Start: 07-05-2023 End: 07-12-2023 amoxicillin-clavulanate potassium (AUGMENTIN) 875-125 mg per tablet Take 1 tablet by mouth two times a day for 7 days. FOR 7 DAYS. 14 tablet 0 07/05/2023 07/12/2023 Active Start: 10-24-2021 End: 11-24-2021 Amoxicillin-Pot Clavulanate (Augmentin) 500-125 mg tablet Discontinued 1 {tbl} PO TWICE A DAY 10 5 0 October 24, 2021 1:00am November 24, 2021 3:41pm Comment on above: Take 1 tablet by [facility] two times a day for 7 days. FOR 7 DAYS. calcium carbonate 625 mg / cholecalciferol 125 unt oral tablet (20 sources) Vitamin D Start: take 2 tablets by mouth twice daily calcium-cholecalcifero l, D3, (OSCAL+D 250) 250-125 mg-unit per tablet Take 2 tablets by mouth twice daily. 0 07/11/2017 Active Comment on above: Take 2 tablets by [facility] twice daily. cefuroxime 500 mg oral tablet (3 sources) Cephalosporin Antibacterial Start: 025 take 1 tablet by mouth twice daily Cefuroxime Axetil 500 mg tablet Active 500 mg PO TWICE A DAY 20 10 0 November 10, 2024 12:00am cholecalciferol 0.025 mg oral capsule (20 sources) Vitamin D Start: 017 take 1 capsule by mouth once daily Cholecalciferol (Vitamin D3) 1,000 UNIT capsule Active 1000 U PO DAILY August 12, 2017 1:00am supplement Start: 08-12-2017 take 2000 [IU] by [facility] once daily Cholecalciferol (Vitamin D3) Active 2000 UNIT PO DAILY August 12, 2017 1:00am Comment on above: Take 1,000 Units by mouth once daily. docusate sodium 100 mg oral capsule (20 sources) Start: take 1 capsule by mouth once daily as needed for constipation Docusate Sodium (Colace) 100 mg capsule Active 100 mg PO DAILY as needed for constipation April 15, 2023 12:00am Start: 07-11-2017 take 1 capsule by mo uth twice daily as needed docusate sodium (COLACE) 100 mg capsule Indications: constipation Take 1 capsule by mouth twice daily as needed. 0 07/11/2017 Active Comment on above: Take 1 capsule by mo uth twice daily as needed. furosemide 40 mg oral tablet (20 sources) Loop Diuretic Start: 04-01-2023 furosemide (LASIX) 40 mg tablet Take 1 tablet by mouth as needed (Leg swelling). 04/01/2023 Active Start: 10-24-2021 End: 05-16-2022 take 1 tablet by mouth twice daily Furosemide 40 mg tablet Discontinued 40 mg PO TWICE A DAY 60 30 1 October 25, 2021 12:24pm May 16, 2022 2:18pm swelling Start: 08-08-2017 End: 02-13-2018 take 1 tablet by mouth twice daily Furosemide 40 MG tablet Discontinued 40 mg PO TWICE A DAY 60 0 September 10, 2017 3:44pm February 13, 2018 4:27pm diuretic/water pill Start: 07-12-2017 End: 07-09-2023 take 1 tablet by mouth once daily Furosemide 40 mg tablet Discontinued 40 mg PO DAILY 90 3 August 22, 2021 12:31pm October 24, 2021 1:27pm swelling Comment on above: Take 1 tablet by jessee th once daily. Take 1 tablet by jessee th as needed (Leg swelling). pantoprazole 40 mg delayed release oral tablet (20 sources) Proton Pump Inhibitor Start: take 1 tablet by mouth every twelve hours Pantoprazole (Protonix) 40 mg tablet,delayed release (DR/EC) Active 40 mg PO Q12H July 01, 2018 1:00am reflux Start: 07-12-2017 take 1 tablet by jessee th once daily, then take 6 tablets by mouth in the morning pantoprazole DR (PROTONIX) 40 mg tablet Take 1 tablet by mouth DAILY (6 AM). 0 07/12/2017 Active Comment on above: Take 1 tablet by jessee th DAILY (6 AM). Completed/Discontinued Medications Medication Drug Class(es) Dates Sig (Normalized) Sig (Original) acetaminophen 325 mg / HYDROcodone bitartrate 5 mg oral tablet (20 sources) Opioid Agonist Start: 02-17-2021 End: 07-12-2021 Hydrocodone-Acetami nophen 5-325 mg tablet Discontinued 1 {tbl} PO EVERY 6 HOURS as needed for pain 12 3 0 February 17, 2021 March 06, 2021 1:44pm Fracture of maxillary sinus Closed fracture of left orbital floor Maxillary fracture, unspecified side, initial encounter for closed fracture Fracture of orbital floor, left side, initial encounter for closed fracture Start: 02-17-2021 End: 03-06-2021 take 1 tablet by mouth every six hours Hydrocodone-Acetaminophen Discontinued 1 TABLET PO EVERY 6 HOURS 12 3 February 17, 2021 March 06, 2021 1:44pm aluminum hydroxide 80 mg/ml / magnesium hydroxide 80 mg/ml / simethicone 8 mg/ml oral suspension (10 sources) Start: 04-19-2023 End: 01-21-2024 take 1 mL by mouth every six hours as needed Alum-Mag Hydroxide-Simeth (Mag-Al Plus Extra Strength) 400-400-40 mg/5 mL Suspension Discontinued 15 mL PO EVERY 6 HOURS NEEDED as needed for Indigestion 0 0 April 19, 2023 12:00am January 21, 2024 2:32pm Start: 04-19-2023 take 1 mL by mouth e very six hours as needed Alum-Mag Hydroxide-Simeth (Mag-Al Plus Extra Strength) 400-400-40 mg/5 mL Suspension Active 15 ML PO EVERY 6 HOURS NEEDED 0 April 19, 2023 12:00am amLODIPine 5 mg oral tablet (20 sources) Dihydropyridine Calcium Channel Bony Start: 07-12-2017 End: 04-01-2023 take 1 tablet by mouth once daily amLODIPine (NORVASC) 5 mg tablet Take 1 tablet by mouth once daily. 10 tablet 0 07/12/2017 04/01/2023 Discontinued Comment on above: Take 1 tablet by jessee th once daily. atorvastatin 40 mg oral tablet (20 sources) HMG-CoA Reductase Inhibitor Start: 10-24-2021 End: 02-07-2024 take 1 tablet by mouth at bedtime Atorvastatin 40 mg tablet Discontinued 40 mg PO AT BEDTIME 90 90 3 February 28, 2022 3:02pm February 07, 2024 11:35pm CHOLESTEROL benzonatate 100 mg oral capsule (4 sources) Non-narcotic Antitussive Start: 08-29-2023 End: 01-21-2024 take 2 capsules by mouth three times daily as needed for cough Benzonatate 100 mg capsule Discontinued 200 mg PO THREE TIMES A DAY as needed for cough 30 0 August 29, 2023 1:00am January 21, 2024 2:31pm Start: 08-29-2023 take 200 mg by mouth three times daily Benzonatate Active 200 MG PO THREE TIMES A DAY August 29, 2023 1:00am Blood Pressure Cuff (20 sources) Start: 01-28-2020 End: 10-24-2021 Blood Pressure Cuff Disconti nued 1 January 28, 2020 4:09pm October 24, 2021 1:26pm As directed Start: 01-28-2020 End: 10-24-2021 Blood Pressure Cuff Disconti nued 1 January 28, 2020 12:00am October 24, 2021 1:26pm As directed Start: 01-28-2020 End: 10-24-2021 Blood Pressure Cuff Disconti nued 1 January 27, 2020 11:00pm October 24, 2021 12:26pm As directed Start: 01-28-2020 End: 10-24-2021 Blood Pressure Cuff Disconti nued January 28, 2020 12:00am October 24, 2021 1:26pm As directed carvedilol 6.25 mg oral tablet (20 sources) alpha-Adrenergic Bony, beta-Adrenergic Bony Start: 11-24-2021 End: 05-12-2024 take 1 tablet by mouth twice daily at mealtime Carvedilol 6.25 mg tablet Discontinued 6.25 mg PO TWICE A DAY 180 3 December 11, 2023 8:54am May 12, 2024 5:14pm HTN must administer with a meal/food Start: 12-12-2018 take 2 tablets by mo [facility] twice daily at mealtime carvedilol (COREG) 3.125 mg tablet Take 6.25 mg by mouth twice daily with meals. 3 12/12/2018 Active Start: 12-11-2018 End: 11-24-2021 take 1 tablet by mouth twice daily at mealtime Carvedilol (Coreg) 3.125 mg tablet Discontinued 3.125 mg PO TWICE A DAY 180 3 March 24, 2021 11:48am November 24, 2021 4:15pm must administer with a meal/food Start: 11-28-2017 End: 11-10-2018 take 1 tablet by mouth twice daily at mealtime Carvedilol (Coreg) 3.125 mg tablet Discontinued 3.125 mg PO TWICE A DAY 60 November 28, 2017 12:00am November 10, 2018 3:04pm give with food (meal/snack) Start: 09-10-2017 End: 11-28-2017 take 1 tablet by mouth twice daily Carvedilol 6.25 mg tablet Discontinued 6.25 mg PO TWICE A DAY 60 November 28, 2017 11:58am November 28, 2017 12:00pm Start: 08-08-2017 End: 09-10-2017 take 1 tablet by mouth twice daily at mealtime Carvedilol (Coreg) 3.125 MG tablet Discontinued 3.125 mg PO TWICE A DAY August 12, 2017 4:55pm September 10, 2017 3:39pm blood pressure/heart administer with food (meal or snack) Comment on above: TAKE 1 TABLET BY JESSEE TH TWICE DAILY. Administer with a meal/food. Take 6.25 mg by mout h twice daily with meals. cefdinir 300 mg oral capsule (11 sources) Cephalosporin Antibacterial Start: 3 End: 3 take 1 capsule by mouth every twelve hours Cefdinir 300 mg capsule Discontinued 300 mg PO Q12H 10 0 March 19, 2023 12:00am April 04, 2023 8:05pm cephalexin 500 mg oral capsule (20 sources) Cephalosporin Antibacterial Start: 3 End: 3 take 1 capsule by mouth three times daily Cephalexin 500 mg capsule Discontinued 500 mg PO THREE TIMES A DAY 30 0 May 24, 2023 12:00am July 09, 2023 5:04pm Start: 04-12-2023 End: 04-19-2023 take 1 capsule by mouth four times daily Cephalexin 500 mg capsule Discontinued 500 mg PO .COMPLEX April 12, 2023 12:00am April 19, 2023 1:17pm 500 mg orally qid X10 days; Start: 08-28-2019 End: 01-28-2020 take 1 capsule by mouth every six hours Cephalexin 500 MG capsule Discontinued 500 mg PO EVERY 6 HOURS 40 0 August 28, 2019 1:00am January 28, 2020 3:53pm Start: 09-05-2017 End: 09-10-2017 take 1 capsule by mouth three times daily Cephalexin 500 MG capsule Discontinued 500 mg PO THREE TIMES A DAY September 05, 2017 1:00am September 10, 2017 3:41pm antibiotic clindamycin 150 mg oral capsule (11 sources) Lincosamide Antibacterial Start: 02-26-2023 End: 04-04-2023 take 3 capsules by mouth three times daily Clindamycin Hcl 150 mg capsule Discontinued 450 mg PO THREE TIMES A DAY 63 7 0 February 26, 2023 12:00am April 04, 2023 8:07pm CELLULITIS Start: 02-26-2023 End: 04-04-2023 take 450 mg by mouth three times daily Clindamycin Hcl Discontinued 450 MG PO THREE TIMES A DAY 63 7 February 26, 2023 12:00am April 04, 2023 8:07pm dapagliflozin 10 mg oral tablet (20 sources) Sodium-Glucose Cotransporter 2 Inhibitor Start: 03-17-2023 End: 07-09-2023 take 1 tablet by mouth once daily Dapagliflozin Propanediol (Farxiga) 10 mg tablet Discontinued 10 mg PO DAILY March 17, 2023 12:00am July 09, 2023 5:08pm DIABETES Start: 11-27-2022 End: 03-12-2023 take 1 tablet by mouth once daily Dapagliflozin Propanediol (Farxiga) 10 mg tablet Discontinued 10 mg PO DAILY 25 07November 27, 2022 12:00am March 12, 2023 3:52pm doxycycline hyclate 100 mg oral tablet (11 sources) Tetracycline-class Drug Start: 03-17-2023 End: 04-04-2023 take 1 tablet by mouth twice daily Doxycycline Hyclate 100 mg tablet Discontinued 100 mg PO TWICE A DAY March 17, 2023 12:00am April 04, 2023 8:07pm INFECTION 0.4 ml enoxaparin sodium 100 mg/ml prefilled syringe (20 sources) Low Molecular Weight Heparin Start: 08-12-2017 End: 08-21-2017 Enoxaparin (Lovenox) 40 MG/0.4 ML syringe Discontinued 40 mg SQ DAILY August 12, 2017 1:00am August 21, 2017 11:57am blood thinner hydrALAZINE hydrochloride 25 mg oral tablet (20 sources) Arteriolar Vasodilator Start: 07-11-2017 End: 04-01-2023 take 1 tablet by mouth every six hours as needed hydrALAZINE (APRESOLINE) 25 mg tablet Take 1 tablet by mouth every 6 hours as needed (SBP > 160, hold for HR > 100). 0 07/11/2017 04/01/2023 Discontinued Comment on above: Take 1 tablet by jessee th every 6 hours as needed (SBP > 160, hold for HR > 100). isosorbide dinitrate 5 mg oral tablet (20 sources) Nitrate Vasodilator Start: 03-27-2022 End: 05-16-2022 Isosorbide Dinitrate 5 mg tablet Discontinued 5 mg PO ONCE March 27, 2022 12:00am May 16, 2022 1:56pm allow nitrate-free interval of 12-14 hrs per 24-hr period Start: 01-16-2022 End: 02-28-2022 take 1 tablet by mouth three times daily Isosorbide Dinitrate 5 mg tablet Discontinued 5 mg PO THREE TIMES A DAY January 16, 2022 12:00am February 28, 2022 2:41pm levoFLOXacin 750 mg oral tablet (12 sources) Quinolone Antimicrobial Start: 04-03-2023 End: 04-12-2023 take 1 tablet by mouth every other day Levofloxacin 750 mg tablet Discontinued 750 mg PO EVERY OTHER DAY April 04, 2023 12:00am April 12, 2023 11:37am Comment on above: Take 1 tablet by jessee th every other day for 5 doses. lisinopril 10 mg oral tablet (20 sources) Angiotensin Converting Enzyme Inhibitor Start: 01-21-2024 End: 03-03-2024 take 1 tablet by mouth twice daily Lisinopril 10 mg tablet Discontinued 10 mg PO TWICE A DAY 180 February 04, 2024 2:42pm March 03, 2024 1:20pm Start: 04-01-2023 take 1 tablet by jessee th once daily lisinopril (ZESTRIL) 20 mg tablet Take 1 tablet by mouth once daily. 04/01/2023 Active Start: 06-19-2021 End: 04-04-2023 take 1 tablet by mouth twice daily Lisinopril 20 mg tablet Discontinued 20 mg PO TWICE A DAY 180 3 November 27, 2022 3:38pm April 04, 2023 8:06pm HTN Start: 04-17-2021 End: 06-19-2021 take 1 tablet by mouth once daily Lisinopril 20 mg tablet Discontinued 20 mg PO DAILY 90 3 April 28, 2021 3:42pm June 19, 2021 2:47pm Start: 01-10-2019 End: 04-17-2021 take 1 tablet by mouth once daily Lisinopril 10 mg tablet Discontinued 10 mg PO DAILY 90 3 February 07, 2021 4:48pm April 17, 2021 1:31pm Start: 01-10-2019 End: 04-01-2023 take 2 tablets by mouth once daily lisinopril (ZESTRIL, PRINIVIL) 10 mg tablet Take 20 mg by mouth once daily. 3 01/10/2019 04/01/2023 Discontinued Start: 10-16-2018 End: 11-10-2018 take 1 tablet by mouth once daily Lisinopril 10 mg tablet Discontinued 10 mg PO DAILY 90 3 October 16, 2018 1:00am November 10, 2018 3:04pm Start: 07-03-2018 End: 10-16-2018 take 1 tablet by mouth once daily Lisinopril 5 mg tablet Discontinued 5 mg PO DAILY 30 July 03, 2018 1:00am October 16, 2018 2:55pm Comment on above: Take 10 mg by mouth once daily. Take 20 mg by mouth once daily. Take 1 tablet by jessee th once daily. losartan potassium 100 mg oral tablet (20 sources) Angiotensin 2 Receptor Bony Start: 8 End: 8 take 1 tablet by mouth once daily Losartan 100 mg tablet Discontinued 100 mg PO DAILY 30 June 12, 2018 7:31am July 01, 2018 4:59pm Start: 04-03-2018 End: 06-11-2018 take 1 tablet by mouth once daily Losartan 50 mg tablet Discontinued 50 mg PO daily 30 April 08, 2018 4:35pm June 11, 2018 4:56pm Menthol / Zinc Oxide (10 sources) Start: 04-19-2023 End: 01-21-2024 Menthol-Zinc Oxide (Calmosep mayank) 0.44-20.6 % Ointment Discontinued 1 NMA TOPICAL TWICE A DAY 0 0 April 19, 2023 12:00am January 21, 2024 2:37pm Please contact the information source for Protocol details. Start: 04-19-2023 End: 01-21-2024 Menthol-Zinc Oxide (Calmosep mayank) 0.44-20.6 % Ointment Discontinued 1 NMA TOPICAL TWICE A DAY 0 April 19, 2023 12:00am January 21, 2024 2:37pm Please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 [facility] Comment on above: For patients on eltr ombopag therapy, use of Dimension [place] TBIL is not recommended. Chloride [Moles/Vol] 108 mmol/L 98-107 [facility] Eosinophils/100 WBC (Bld) 1.9 % 0-5 [facility] Glucose [Mass/Vol] 113 mg/dL 74-106 [facility] Comment on above: Fasting Glucose resu lt from 100 to 125 mg/dL suggests IMPAIRED HOMEOSTASIS per A.D.A. criteria. Hemoglobin (Bld) [Mass/Vol] 11.7 g/dL 12.0-15.0 [facility] Monocytes/100 WBC (Bld) 9.6 % 0-10 [facility] Neutrophils (Bld) [#/Vol] 6.3 10*3/uL 2.0-7.7 [facility] Neutrophils/100 WBC (Bld) 77.3 % 47-70 [facility] Potassium [Moles/Vol] 3.8 mmol/L 3.5-5.1 [facility] Protein [Mass/Vol] 7.1 g/dL 6.4-8.2 [facility] Sodium [Moles/Vol] 140 mmol/L 136-145 [facility] WBC (Bld) [#/Vol] 8.1 10*3/uL 4.4-11.0 [facility] Determination of erythrocyte mean corpuscular volume (MCV)Ordered By: Jason Benitez on 12-17-2023 MCV (RBC) [Entitic vol] 88.3 fL 81-99 [facility] Erythrocyte distribution wid th ratioOrdered By: Jason Benitez on 12-17-2023 Erythrocyte distribution width (RBC) [Ratio] 14.5 % 11.6-14.6 [facility] Erythrocyte distribution wid th standard deviationOrdered By: Jason Benitez on 12-17-2023 Erythrocyte distribution width (RBC) [Entitic vol] 46.5 fL 35.1-43.9 [facility] Hematocrit Auto (Bld) [Volum e fraction]Ordered By: Jason Benitez on 12-17-2023 Hematocrit (Bld) [Volume fraction] 37.6 % 37-47 [facility] Immature granulocytes/100 WB C Auto (Bld)Ordered By: Jason Benitez on 12-17-2023 Immature granulocytes/100 WBC (Bld) 0.200 % 0.0-0.9 [facility] Comment on above: IG% - Immature Granu locytes (promyelocytes, myelocytes and metamyelocytes) > 1% indicates that a LEFT SHIFT is Present. Laboratory - Chemistry and C hemistry - challengeOrdered By: Jason Benitez on 12-17-2023 Albumin/Globulin [Mass ratio] 0.7 {ratio} 0.9-2.4 [facility] ALP [Catalytic activity/Vol] 86 U/L 45-117 [facility] ALT [Catalytic activity/Vol] 12 U/L 13-56 [facility] CO2 [Moles/Vol] 28.0 mmol/L 21.0-32.0 [facility] Globulin (S) [Mass/Vol] 4.2 g/dL 2.2-4.2 [facility] Magnesium [Mass/Vol] 2.3 mg/dL 1.6-2.6 [facility] Natriuretic peptide B (Bld) [Mass/Vol] 119.1 pg/mL 0-100 [facility] Urea nitrogen/Creatinine [Mass ratio] 12.9 mg/mg 10-20 [facility] Laboratory - Hematology and Cell countsOrdered By: Jason Benitez on 12-17-2023 MCH (RBC) [Entitic mass] 27.5 pg 27.0-32.0 [facility] MCHC (RBC) [Mass/Vol] 31.1 g/dL 32-36 [facility] Nucleated RBC/100 WBC (Bld) [Ratio] 0 % 0-5 [facility] Platelet mean volume (Bld) [Entitic vol] 10.3 fL 6.2-12.0 [facility] Platelets (Bld) [#/Vol] 187 10*3/uL 150-450 [facility] No Panel InformationOrdered By: Jason Benitez on 12-17-2023 Estimated GFR (MDRD) Amer 57 mL/min >60 [facility] Comment on above: GFR Calc Estimated GFR (MDRD) Non-Af Amer 47 mL/min >60 [facility] Comment on above: Non- GFR Calc RBC Auto (Bld) [#/Vol]Ordere d By: Jason Benitez on 12-17-2023 RBC (Bld) [#/Vol] 4.26 10*6/uL 4.2-5.4 [facility] Serum or plasma calcium lakeisha urement (mass/volume)Ordered By: Jason Benitez on 12-17-2023 Calcium [Mass/Vol] 9.1 mg/dL 8.5-10.1 [facility] Serum or plasma creatinine m easurement (mass/volume)Ordered By: Jason Benitez on 12-17-2023 Creatinine [Mass/Vol] 1.16 mg/dL 0.55-1.02 [facility] Comment on above: The validity of the calculated GFR & GFRAA in patients over 70 years has not been determined. Clinical correlation is essential. Serum or plasma urea nitroge n measurement (mass/volume)Ordered By: Jason Benitez on 12-17-2023 Urea nitrogen [Mass/Vol] 15 mg/dL 7-18 [facility] Thin prep Papanicolaou smear with manual screeningOrdered By: Jason Benitez on 12-17-2023 Thin prep Papanicolaou smear with manual screening 2.9 g/dL 3.2-5.0 [facility] Thin prep Papanicolaou smear with manual screening 12 U/L 15-37 [facility] Thin prep Papanicolaou smear with manual screening 4 5-15 [facility] No Panel Informationon 08-29 Influenza Types A,B Rapid (Clinic) Negative [facility] POC SARS CoV-2 Antigen Negative [facility] Absolute lymphocyte countOrd ered By: Jason Benitez on 07-01-2023 Lymphocytes Auto (Unsp spec) [#/Vol] 1.24 10*3/uL 0.83-4.51 [facility] Basophil percentageOrdered B y: Jason Benitez on 07-01-2023 Basophils/100 WBC (Bld) 0.9 % 0-1 [facility] Bilirubin [Mass/Vol] 0.20 mg/dL 0.20-1.00 [facility] Comment on above: For patients on eltr ombopag therapy, use of Dimension [place] TBIL is not recommended. Chloride [Moles/Vol] 105 mmol/L 98-107 [facility] Eosinophils/100 WBC (Bld) 2.5 % 0-5 [facility] Glucose [Mass/Vol] 94 mg/dL 74-106 [facility] Neutrophils (Bld) [#/Vol] 3.6 10*3/uL 2.0-7.7 [facility] Neutrophils/100 WBC (Bld) 63.7 % 47-70 [facility] Potassium [Moles/Vol] 3.9 mmol/L 3.5-5.1 [facility] Protein [Mass/Vol] 7.3 g/dL 6.4-8.2 [facility] Sodium [Moles/Vol] 139 mmol/L 136-145 [facility] WBC (Bld) [#/Vol] 5.6 10*3/uL 4.4-11.0 [facility] Blood erythrocytes count (nu mber/volume)Ordered By: Jason Benitez on 07-01-2023 RBC (Bld) [#/Vol] 3.98 10*6/uL 4.2-5.4 [facility] Blood hemoglobin measurement (mass/volume)Ordered By: Jason Benitez on 07-01-2023 Hemoglobin (Bld) [Mass/Vol] 11.1 g/dL 12.0-15.0 [facility] Blood lymphocytes/100 leukoc ytesOrdered By: Jason Benitez on 07-01-2023 Lymphocytes/100 WBC (Bld) 22.0 % 19-41 [facility] Blood monocytes/100 leukocyt esOrdered By: Jason Benitez on 07-01-2023 Monocytes/100 WBC (Bld) 10.5 % 0-10 [facility] Blood platelet mean volumeOr dered By: Jason Benitez on 07-01-2023 Platelet mean volume (Bld) [Entitic vol] 10.3 fL 6.2-12.0 [facility] Determination of erythrocyte mean corpuscular volume (MCV)Ordered By: Jason Benitez on 07-01-2023 MCV (RBC) [Entitic vol] 89.9 fL 81-99 [facility] Hematocrit Auto (Bld) [Volum e fraction]Ordered By: Jason Benitez on 07-01-2023 Hematocrit (Bld) [Volume fraction] 35.8 % 37-47 [facility] Laboratory - Chemistry and C hemistry - challengeOrdered By: Jason Benitez on 07-01-2023 ALP [Catalytic activity/Vol] 83 U/L 45-117 [facility] ALT [Catalytic activity/Vol] 13 U/L 13-56 [facility] CO2 [Moles/Vol] 28.0 mmol/L 21.0-32.0 [facility] Globulin (S) [Mass/Vol] 4.4 g/dL 2.2-4.2 [facility] Magnesium [Mass/Vol] 2.5 mg/dL 1.6-2.6 [facility] Urea nitrogen/Creatinine [Mass ratio] 14.6 mg/mg 10-20 [facility] Laboratory - Hematology and Cell countsOrdered By: Jason Benitez on 07-01-2023 Erythrocyte distribution width (RBC) [Entitic vol] 50.4 fL 35.1-43.9 [facility] Erythrocyte distribution width (RBC) [Ratio] 15.2 % 11.6-14.6 [facility] Immature granulocytes/100 WBC (Bld) 0.400 % 0.0-0.9 [facility] Comment on above: IG% - Immature Granu locytes (promyelocytes, myelocytes and metamyelocytes) > 1% indicates that a LEFT SHIFT is Present. MCH (RBC) [Entitic mass] 27.9 pg 27.0-32.0 [facility] Nucleated RBC/100 WBC (Bld) [Ratio] 0 % 0-5 [facility] MCHC Auto (RBC) [Mass/Vol]Or dered By: Jason Benitez on 07-01-2023 MCHC (RBC) [Mass/Vol] 31.0 g/dL 32-36 [facility] No Panel InformationOrdered By: Jason Benitez on 07-01-2023 Estimated GFR (MDRD) Amer 71 mL/min >60 [facility] Comment on above: GFR Calc Estimated GFR (MDRD) Non-Af Amer 59 mL/min >60 [facility] Comment on above: Non- GFR Calc Platelets bldOrdered By: Reyna Benitez on 07-01-2023 Platelets (Bld) [#/Vol] 221 10*3/uL 150-450 [facility] Serum or plasma albumin lakeisha urement (mass/volume)Ordered By: Jason Benitez on 07-01-2023 Albumin [Mass/Vol] 2.9 g/dL 3.2-5.0 [facility] Serum or plasma albumin/glob ulin mass ratioOrdered By: Jason Benitez on 07-01-2023 Albumin/Globulin [Mass ratio] 0.7 {ratio} 0.9-2.4 [facility] Serum or plasma calcium lakeisha urement (mass/volume)Ordered By: Jason Benitez on 07-01-2023 Calcium [Mass/Vol] 9.1 mg/dL 8.5-10.1 [facility] Serum or plasma creatinine m easurement (mass/volume)Ordered By: Jason Benitez on 07-01-2023 Creatinine [Mass/Vol] 0.96 mg/dL 0.55-1.02 [facility] Comment on above: The validity of the calculated GFR & GFRAA in patients over 70 years has not been determined. Clinical correlation is essential. Serum or plasma urea nitroge n measurement (mass/volume)Ordered By: Jason Benitez on 07-01-2023 Urea nitrogen [Mass/Vol] 14 mg/dL 7-18 [facility] Thin prep Papanicolaou smear with manual screeningOrdered By: Jason Benitez on 07-01-2023 Thin prep Papanicolaou smear with manual screening 14 U/L 15-37 [facility] Thin prep Papanicolaou smear with manual screening 6 5-15 [facility] Basophil percentageOrdered B y: Jason Benitez on 06-18-2023 Chloride [Moles/Vol] 105 mmol/L 98-107 [facility] Glucose [Mass/Vol] 99 mg/dL 74-106 [facility] Potassium [Moles/Vol] 4.3 mmol/L 3.5-5.1 [facility] Sodium [Moles/Vol] 138 mmol/L 136-145 [facility] Laboratory - Chemistry and C hemistry - challengeOrdered By: Jason Benitez on 06-18-2023 CO2 [Moles/Vol] 28.0 mmol/L 21.0-32.0 [facility] Urea nitrogen/Creatinine [Mass ratio] 15.7 mg/mg 10- [facility] No Panel InformationOrdered By: Jason Benitez on 06-18-2023 Estimated GFR (MDRD) Amer 40 mL/min >60 [facility] Comment on above: GFR Calc Estimated GFR (MDRD) Non-Af Amer 33 mL/min >60 [facility] Comment on above: Non- GFR Calc Serum or plasma calcium lakeisha urement (mass/volume)Ordered By: Jason Benitez on 06-18-2023 Calcium [Mass/Vol] 9.3 mg/dL 8.5-10.1 [facility] Serum or plasma creatinine m easurement (mass/volume)Ordered By: Jason Benitez on 06-18-2023 Creatinine [Mass/Vol] 1.59 mg/dL 0.55-1.02 [facility] Comment on above: The validity of the calculated GFR & GFRAA in patients over 70 years has not been determined. Clinical correlation is essential. Serum or plasma urea nitroge n measurement (mass/volume)Ordered By: Jason Benitez on 06-18-2023 Urea nitrogen [Mass/Vol] 25 mg/dL 7-18 [facility] Thin prep Papanicolaou smear with manual screeningOrdered By: Jason Benitez on 06-18-2023 Thin prep Papanicolaou smear with manual screening 5 5-15 [facility] Basophil percentageOrdered B y: Jason Benitez on 06-10-2023 Chloride [Moles/Vol] 98 mmol/L 98-107 [facility] Glucose [Mass/Vol] 90 mg/dL 74-106 [facility] Potassium [Moles/Vol] 4.2 mmol/L 3.5-5.1 [facility] Sodium [Moles/Vol] 133 mmol/L 136-145 [facility] Laboratory - Chemistry and C hemistry - challengeOrdered By: Jason Benitez on 06-10-2023 CO2 [Moles/Vol] 27.0 mmol/L 21.0-32.0 [facility] Magnesium [Mass/Vol] 2.8 mg/dL 1.6-2.6 [facility] Urea nitrogen/Creatinine [Mass ratio] 10.1 mg/mg 10-20 [facility] No Panel InformationOrdered By: Jason Benitez on 06-10-2023 Estimated GFR (MDRD) Amer 17 mL/min >60 [facility] Comment on above: GFR Calc Estimated GFR (MDRD) Non-Af Amer 14 mL/min >60 [facility] Comment on above: Non- GFR Calc Serum or plasma calcium lakeisha urement (mass/volume)Ordered By: Jason Benitez on 06-10-2023 Calcium [Mass/Vol] 9.5 mg/dL 8.5-10.1 [facility] Serum or plasma creatinine m easurement (mass/volume)Ordered By: Jason Benitez on 06-10-2023 Creatinine [Mass/Vol] 3.36 mg/dL 0.55-1.02 [facility] Comment on above: The validity of the calculated GFR & GFRAA in patients over 70 years has not been determined. Clinical correlation is essential. Serum or plasma urea nitroge n measurement (mass/volume)Ordered By: Jason Benitez on 06-10-2023 Urea nitrogen [Mass/Vol] 34 mg/dL 7-18 [facility] Thin prep Papanicolaou smear with manual screeningOrdered By: Jason Benitez on 06-10-2023 Thin prep Papanicolaou smear with manual screening 8 5-15 [facility] Basophil percentageOrdered B y: Jason Benitez on 06-03-2023 Chloride [Moles/Vol] 102 mmol/L 98-107 [facility] Glucose [Mass/Vol] 89 mg/dL 74-106 [facility] Potassium [Moles/Vol] 3.8 mmol/L 3.5-5.1 [facility] Sodium [Moles/Vol] 136 mmol/L 136-145 [facility] Laboratory - Chemistry and C hemistry - challengeOrdered By: Jason Benitez on 06-03-2023 CO2 [Moles/Vol] 28.0 mmol/L 21.0-32.0 [facility] Urea nitrogen/Creatinine [Mass ratio] 18.7 mg/mg 10- [facility] No Panel InformationOrdered By: Jason Benitez on 06-03-2023 Estimated GFR (MDRD) Amer 63 mL/min >60 [facility] Comment on above: GFR Calc Estimated GFR (MDRD) Non-Af Amer 52 mL/min >60 [facility] Comment on above: Non- GFR Calc Serum or plasma calcium lakeisha urement (mass/volume)Ordered By: Jason Benitez on 06-03-2023 Calcium [Mass/Vol] 9.3 mg/dL 8.5-10.1 [facility] Serum or plasma creatinine m easurement (mass/volume)Ordered By: Jason Benitez on 06-03-2023 Creatinine [Mass/Vol] 1.07 mg/dL 0.55-1.02 [facility] Comment on above: The validity of the calculated GFR & GFRAA in patients over 70 years has not been determined. Clinical correlation is essential. Serum or plasma urea nitroge n measurement (mass/volume)Ordered By: Jason Benitez on 06-03-2023 Urea nitrogen [Mass/Vol] 20 mg/dL 7-18 [facility] Thin prep Papanicolaou smear with manual screeningOrdered By: Jason Benitez on 06-03-2023 Thin prep Papanicolaou smear with manual screening 6 5-15 [facility] Absolute lymphocyte countOrd ered By: Sage Augustin on 05-24-2023 Lymphocytes Auto (Unsp spec) [#/Vol] 0.36 10*3/uL 0.83-4.51 [facility] Basophil percentageOrdered B y: Sage Augustin on 05-24-2023 Basophils/100 WBC (Bld) 0.5 % 0-1 [facility] Chloride [Moles/Vol] 108 mmol/L 98-107 [facility] Eosinophils/100 WBC (Bld) 2.5 % 0-5 [facility] Glucose [Mass/Vol] 100 mg/dL 74-106 [facility] Comment on above: Fasting Glucose resu lt from 100 to 125 mg/dL suggests IMPAIRED HOMEOSTASIS per A.D.A. criteria. Neutrophils (Bld) [#/Vol] 6.4 10*3/uL 2.0-7.7 [facility] Neutrophils/100 WBC (Bld) 85.4 % 47-70 [facility] Potassium [Moles/Vol] 4.6 mmol/L 3.5-5.1 [facility] Sodium [Moles/Vol] 138 mmol/L 136-145 [facility] WBC (Bld) [#/Vol] 7.5 10*3/uL 4.4-11.0 [facility] Blood erythrocytes count (nu mber/volume)Ordered By: Sage Augustin on 05-24-2023 RBC (Bld) [#/Vol] 4.14 10*6/uL 4.2-5.4 [facility] Blood hemoglobin measurement (mass/volume)Ordered By: Sage Augustin on 05-24-2023 Hemoglobin (Bld) [Mass/Vol] 11.5 g/dL 12.0-15.0 [facility] Blood lymphocytes/100 leukoc ytesOrdered By: Sage Augustin on 05-24-2023 Lymphocytes/100 WBC (Bld) 4.8 % 19-41 [facility] Blood manual differential co mment interpretation (narrative result)Ordered By: Sage Augustin on 05-24-2023 Manual differential comment Bryce (Bld) [Interp] COMMENT [facility] Comment on above: LYMPHOPENIA. Blood monocytes/100 leukocyt esOrdered By: Sage Augustin on 05-24-2023 Monocytes/100 WBC (Bld) 6.4 % 0-10 [facility] Blood platelet mean volumeOr dered By: Sage Augustin on 05-24-2023 Platelet mean volume (Bld) [Entitic vol] 9.8 fL 6.2-12.0 [facility] Determination of erythrocyte mean corpuscular volume (MCV)Ordered By: Sage Augustin on 05-24-2023 MCV (RBC) [Entitic vol] 90.3 fL 81-99 [facility] Hematocrit Auto (Bld) [Volum e fraction]Ordered By: Sage Augustin on 05-24-2023 Hematocrit (Bld) [Volume fraction] 37.4 % 37-47 [facility] Laboratory - Chemistry and C hemistry - challengeOrdered By: Sage Augustin on 05-24-2023 CO2 [Moles/Vol] 26.0 mmol/L 21.0-32.0 [facility] Urea nitrogen/Creatinine [Mass ratio] 15.3 mg/mg 10-20 [facility] Laboratory - Hematology and Cell countsOrdered By: Sage Augustin on 05-24-2023 Erythrocyte distribution width (RBC) [Entitic vol] 53.1 fL 35.1-43.9 [facility] Erythrocyte distribution width (RBC) [Ratio] 15.9 % 11.6-14.6 [facility] Immature granulocytes/100 WBC (Bld) 0.400 % 0.0-0.9 [facility] Comment on above: IG% - Immature Granu locytes (promyelocytes, myelocytes and metamyelocytes) > 1% indicates that a LEFT SHIFT is Present. MCH (RBC) [Entitic mass] 27.8 pg 27.0-32.0 [facility] Nucleated RBC/100 WBC (Bld) [Ratio] 0 % 0-5 [facility] MCHC Auto (RBC) [Mass/Vol]Or dered By: Sage Augustin on 05-24-2023 MCHC (RBC) [Mass/Vol] 30.7 g/dL 32-36 [facility] No Panel InformationOrdered By: Sage Augustin on 05-24-2023 Estimated Creatinine Clearance Calc 39.86 ml/min [facility] Estimated GFR (MDRD) Amer 47 mL/min >60 [facility] Comment on above: GFR Calc Estimated GFR (MDRD) Non-Af Amer 39 mL/min >60 [facility] Comment on above: Non- GFR Calc Platelets bldOrdered By: Katiuska Augustin on 05-24-2023 Platelets (Bld) [#/Vol] 216 10*3/uL 150-450 [facility] Serum or plasma calcium lakeisha urement (mass/volume)Ordered By: Sage Augustin on 05-24-2023 Calcium [Mass/Vol] 9.0 mg/dL 8.5-10.1 [facility] Serum or plasma creatinine m easurement (mass/volume)Ordered By: Sage Augustin on 05-24-2023 Creatinine [Mass/Vol] 1.37 mg/dL 0.55-1.02 [facility] Comment on above: The validity of the calculated GFR & GFRAA in patients over 70 years has not been determined. Clinical correlation is essential. Serum or plasma urea nitroge n measurement (mass/volume)Ordered By: Sage Augustin on 05-24-2023 Urea nitrogen [Mass/Vol] 21 mg/dL 7-18 [facility] Thin prep Papanicolaou smear with manual screeningOrdered By: Sage Augustin on 05-24-2023 Thin prep Papanicolaou smear with manual screening 4 5-15 [facility] Absolute lymphocyte countOrd ered By: Mariusz Waters on 04-16-2023 Lymphocytes Auto (Unsp spec) [#/Vol] 0.99 10*3/uL 0.83-4.51 [facility] Basophil percentageOrdered B y: Mariusz Waters on 04-16-2023 Basophil percentage 2.4 mg/dL 2.5-4.9 [facility] Basophils/100 WBC (Bld) 0.6 % 0-1 [facility] Chloride [Moles/Vol] 102 mmol/L 98-107 [facility] Eosinophils/100 WBC (Bld) 2.5 % 0-5 [facility] Glucose [Mass/Vol] 98 mg/dL 74-106 [facility] Neutrophils (Bld) [#/Vol] 4.3 10*3/uL 2.0-7.7 [facility] Neutrophils/100 WBC (Bld) 67.3 % 47-70 [facility] Potassium [Moles/Vol] 3.8 mmol/L 3.5-5.1 [facility] Sodium [Moles/Vol] 139 mmol/L 136-145 [facility] WBC (Bld) [#/Vol] 6.4 10*3/uL 4.4-11.0 [facility] Blood erythrocytes count (nu mber/volume)Ordered By: Mariusz Waters on 04-16-2023 RBC (Bld) [#/Vol] 3.52 10*6/uL 4.2-5.4 [facility] Blood hemoglobin measurement (mass/volume)Ordered By: Mariusz Waters on 04-16-2023 Hemoglobin (Bld) [Mass/Vol] 9.9 g/dL 12.0-15.0 [facility] Blood lymphocytes/100 leukoc ytesOrdered By: Mariusz Waters on 04-16-2023 Lymphocytes/100 WBC (Bld) 15.5 % 19-41 [facility] Blood monocytes/100 leukocyt esOrdered By: Mariusz Waters on 04-16-2023 Monocytes/100 WBC (Bld) 13.3 % 0-10 [facility] Blood platelet mean volumeOr dered By: Mariusz Waters on 04-16-2023 Platelet mean volume (Bld) [Entitic vol] 10.7 fL 6.2-12.0 [facility] Determination of erythrocyte mean corpuscular volume (MCV)Ordered By: Mariusz Waters on 04-16-2023 MCV (RBC) [Entitic vol] 89.2 fL 81-99 [facility] Hematocrit Auto (Bld) [Volum e fraction]Ordered By: Mariusz Waters on 04-16-2023 Hematocrit (Bld) [Volume fraction] 31.4 % 37-47 [facility] Laboratory - Chemistry and C hemistry - challengeOrdered By: Mariusz Waters on 04-16-2023 CO2 [Moles/Vol] 31.0 mmol/L 21.0-32.0 [facility] Urea nitrogen/Creatinine [Mass ratio] 11.3 mg/mg 10-20 [facility] - Hematology and Cell countsOrdered By: Mariusz Waters on 04-16-2023 Erythrocyte distribution width (RBC) [Entitic vol] 48.6 fL 35.1-43.9 [facility] Erythrocyte distribution width (RBC) [Ratio] 15.1 % 11.6-14.6 [facility] Immature granulocytes/100 WBC (Bld) 0.800 % 0.0-0.9 [facility] Comment on above: IG% - Immature Granu locytes (promyelocytes, myelocytes and metamyelocytes) > 1% indicates that a LEFT SHIFT is Present. MCH (RBC) [Entitic mass] 28.1 pg 27.0-32.0 [facility] Nucleated RBC/100 WBC (Bld) [Ratio] 0 % 0-5 [facility] MCHC Auto (RBC) [Mass/Vol]Or dered By: Mariusz Waters on 04-16-2023 MCHC (RBC) [Mass/Vol] 31.5 g/dL 32-36 [facility] Comment on above: Delta: 29.6 on 04/15 No Panel InformationOrdered By: Mariusz Waters on 04-16-2023 Estimated Creatinine Clearance Calc 52.96 ml/min [facility] Estimated GFR (MDRD) Amer 89 mL/min >60 [facility] Comment on above: GFR Calc Estimated GFR (MDRD) Non-Af Amer 73 mL/min >60 [facility] Comment on above: Non- GFR Calc Platelets bldOrdered By: Mi Waters on 04-16-2023 Platelets (Bld) [#/Vol] 194 10*3/uL 150-450 [facility] Serum or plasma calcium lakeisha urement (mass/volume)Ordered By: Mariusz Waters on 04-16-2023 Calcium [Mass/Vol] 8.8 mg/dL 8.5-10.1 [facility] Serum or plasma creatinine m easurement (mass/volume)Ordered By: Mariusz Waters on 04-16-2023 Creatinine [Mass/Vol] 0.79 mg/dL 0.55-1.02 [facility] Comment on above: The validity of the calculated GFR & GFRAA in patients over 70 years has not been determined. Clinical correlation is essential. Serum or plasma urea nitroge n measurement (mass/volume)Ordered By: Mariusz Jt on 04-16-2023 Urea nitrogen [Mass/Vol] 9 mg/dL 7-18 [facility] Thin prep Papanicolaou smear with manual screeningOrdered By: [facility] Jt on 04-16-2023 Thin prep Papanicolaou smear with manual screening 6 5-15 [facility] Absolute lymphocyte countOrd ered By: Kiko Pittman on 04-15-2023 Lymphocytes Auto (Unsp spec) [#/Vol] 0.95 10*3/uL 0.83-4.51 [facility] Basophil percentageOrdered B y: Kiko Pittman on 04-15-2023 Basophil percentage 0 SEEN /hpf 0-5 [facility] Lactate [Moles/Vol] 1.1 mmol/L 0.4-2.0 [facility] Basophils/100 WBC (Bld) 0.8 % 0-1 [facility] Bilirubin [Mass/Vol] 0.50 mg/dL 0.20-1.00 [facility] Comment on above: For patients on eltr ombopag therapy, use of Dimension [place] TBIL is not recommended. Chloride [Moles/Vol] 100 mmol/L 98-107 [facility] Eosinophils/100 WBC (Bld) 3.6 % 0-5 [facility] Glucose [Mass/Vol] 91 mg/dL 74-106 [facility] Neutrophils (Bld) [#/Vol] 4.1 10*3/uL 2.0-7.7 [facility] Neutrophils/100 WBC (Bld) 66.9 % 47-70 [facility] Potassium [Moles/Vol] 4.2 mmol/L 3.5-5.1 [facility] Protein [Mass/Vol] 6.5 g/dL 6.4-8.2 [facility] Sodium [Moles/Vol] 136 mmol/L 136-145 [facility] WBC (Bld) [#/Vol] 6.1 10*3/uL 4.4-11.0 [facility] Bilirubin Test strip Ql (U)O rdered By: Kiko Pittman on 04-15-2023 Bilirubin Ql (U) Negative Negative [facility] Blood erythrocytes count (nu mber/volume)Ordered By: Kiko Pittman on 04-15-2023 RBC (Bld) [#/Vol] 3.82 10*6/uL 4.2-5.4 [facility] Blood hemoglobin measurement (mass/volume)Ordered By: Kiko Pittman on 04-15-2023 Hemoglobin (Bld) [Mass/Vol] 10.4 g/dL 12.0-15.0 [facility] Blood lymphocytes/100 leukoc ytesOrdered By: Kiko Pittman on 04-15-2023 Lymphocytes/100 WBC (Bld) 15.7 % 19-41 [facility] Blood manual differential co mment interpretation (narrative result)Ordered By: Kiko Pittman on 04-15-2023 Manual differential comment Bryce (Bld) [Interp] SCANNED [facility] Blood monocytes/100 leukocyt esOrdered By: Kiko Pittman on 04-15-2023 Monocytes/100 WBC (Bld) 12.0 % 0-10 [facility] Blood platelet mean volumeOr dered By: Kiko Pittman on 04-15-2023 Platelet mean volume (Bld) [Entitic vol] 11.1 fL 6.2-12.0 [facility] Determination of erythrocyte mean corpuscular volume (MCV)Ordered By: Kiko Pittman on 04-15-2023 MCV (RBC) [Entitic vol] 91.9 fL 81-99 [facility] Erythrocyte sedimentation ra teOrdered By: Mariusz Waters on 04-15-2023 ESR (Bld) [Velocity] 41 mm/h 0-30 [facility] Hematocrit Auto (Bld) [Volum e fraction]Ordered By: Kikomichelle Pittman on 04-15-2023 Hematocrit (Bld) [Volume fraction] 35.1 % 37-47 [facility] Ketones Test strip Ql (U)Ord ered By: Kikomichelle Pittman on 04-15-2023 Ketones Ql (U) Negative Negative [facility] Laboratory - Chemistry and C hemistry - [facility]Ordered [facility] ALP [Catalytic activity/Vol] 76 U/L 45-117 [facility] ALT [Catalytic activity/Vol] 16 U/L 13-56 [facility] CO2 [Moles/Vol] 32.0 mmol/L 21.0-32.0 [facility] Globulin (S) [Mass/Vol] 4.2 g/dL 2.2-4.2 [facility] Urea nitrogen/Creatinine [Mass ratio] 11.7 mg/mg 10-20 [facility] - Hematology and Cell countsOrdered By: [facility] on [facility]23 Erythrocyte distribution width (RBC) [Entitic vol] 50.0 fL 35.1-43.9 [facility] Erythrocyte distribution width (RBC) [Ratio] 15.0 % 11.6-14.6 [facility] Immature granulocytes/100 WBC (Bld) 1.000 % 0.0-0.9 [facility] Comment on above: IG% - Immature Granu locytes (promyelocytes, myelocytes and metamyelocytes) > 1% indicates that a LEFT SHIFT is Present. MCH (RBC) [Entitic mass] 27.2 pg 27.0-32.0 [facility] Nucleated RBC/100 WBC (Bld) [Ratio] 0 % 0-5 [facility] MCHC Auto (RBC) [Mass/Vol]Or dered By: Kikomichelle Pittman on 04-15-2023 MCHC (RBC) [Mass/Vol] 29.6 g/dL 32-36 [facility] Mucus LM Ql (Urine sed)Order ed By: Kikomichelle Pittman on 04-15-2023 Mucus Ql (Urine sed) 0 SEEN /hpf [facility] Nitrite Test strip Ql (U)Ord ered By: Kikomichelle Pittman on 04-15-2023 Nitrite Ql (U) Negative Negative [facility] No Panel InformationOrdered By: Kiko Pittman on 04-15-2023 Estimated GFR (MDRD) Amer 66 mL/min >60 [facility] Comment on above: GFR Calc Estimated GFR (MDRD) Non-Af Amer 54 mL/min >60 [facility] Comment on above: Non- GFR Calc Platelets bldOrdered By: Kiko Pittman on 04-15-2023 Platelets (Bld) [#/Vol] 169 10*3/uL 150-450 [facility] Protein Test strip Ql (U)Ord ered By: Kiko Pittman on 04-15-2023 Protein Ql (U) Negative Negative [facility] Serum or plasma C reactive p rotein measurement (mass/volume)Ordered By: Mariusz Waters on 04-15-2023 CRP [Mass/Vol] 14.90 mg/L 0.0-3.0 [facility] Comment on above: C-Reactive Protein ( CRP) provides useful information for thediagnosis, therapy and monitoring of inflammatory processesand associated diseases. For the evaluation of Relative Riskfor Cardiovascular Disease, a High Sensitivity CRP (HSCRP)should be ordered. Serum or plasma albumin lakeisha urement (mass/volume)Ordered By: Kiko Pittman on 04-15-2023 Albumin [Mass/Vol] 2.3 g/dL 3.2-5.0 [facility] Serum or plasma albumin/glob ulin mass ratioOrdered By: Kikomichelle Pittman on 04-15-2023 Albumin/Globulin [Mass ratio] 0.5 {ratio} 0.9-2.4 [facility] Serum or plasma calcium lakeisha urement (mass/volume)Ordered By: Kiko Pittman on 04-15-2023 Calcium [Mass/Vol] 8.6 mg/dL 8.5-10.1 [facility] Serum or plasma creatinine m easurement (mass/volume)Ordered By: Kiko Pittman on 04-15-2023 Creatinine [Mass/Vol] 1.03 mg/dL 0.55-1.02 [facility] Comment on above: The validity of the calculated GFR & GFRAA in patients over 70 years has not been determined. Clinical correlation is essential. Serum or plasma urea nitroge n measurement (mass/volume)Ordered By: Kiko Pittman on 04-15-2023 Urea nitrogen [Mass/Vol] 12 mg/dL 7-18 [facility] Squamous epithelial cells de tection in urine sediment by light microscopyOrdered By: Kiko Pittman on 04-15-2023 Epithelial cells.squamous LM Ql (Urine sed) 0-5 SEEN /hpf 5-10 [facility] Thin prep Papanicolaou smear with manual screeningOrdered By: Kiko Pittman on 04-15-2023 Thin prep Papanicolaou smear with manual screening 22 U/L 15-37 [facility] Thin prep Papanicolaou smear with manual screening 4 5-15 [facility] Urine blood detectionOrdered By: Kiko Pittman on 04-15-2023 RBC Ql (U) Negative Negative [facility] RBC Ql (U) 0 SEEN /hpf 0-5 [facility] Urine clarityOrdered By: Kiko Pittman on 04-15-2023 Clarity (U) Sl. Cloudy Clear [facility] Urine color determinationOrd ered By: Kiko Pittman on 04-15-2023 Color (U) Yellow Yellow [facility] Urine glucose detectionOrder ed By: Kiko Pittman on 04-15-2023 Glucose Ql (U) 50 mg/dl Normal [facility] Urine leukocyte esterase det ection by dipstickOrdered By: Kiko Pittman on 04-15-2023 Leukocyte esterase Test strip Ql (U) 25 /ul Negative [facility] Urine pHOrdered By: Kiko torres on 04-15-2023 pH (U) 7.0 [pH] 5.0 - 8.0 [facility] Urine sediment bacteria coun t by microscopy (number/high power field)Ordered By: Kiko Pittman on 04-15-2023 Bacteria LM.HPF (Urine sed) [#/Area] 0 /[HPF] None Seen [facility] Urine specific gravity measu rementOrdered By: Kiko Pittman on 04-15-2023 Specific gravity (U) [Rel density] 1.005 1.002-1.03 0 [facility] Urobilinogen Auto test strip Ql (U)Ordered By: Kiko Pittman on 04-15-2023 Urobilinogen Ql (U) Normal mg/dl Normal [facility] Absolute lymphocyte countOrd ered By: Kikomichelle Pittman on 04-04-2023 Lymphocytes Auto (Unsp spec) [#/Vol] 1.10 10*3/uL 0.83-4.51 [facility] Basophil percentageOrdered B y: Kiko Pittman on 04-04-2023 Basophils/100 WBC (Bld) 0.8 % 0-1 [facility] Chloride [Moles/Vol] 105 mmol/L 98-107 [facility] Eosinophils/100 WBC (Bld) 1.5 % 0-5 [facility] Glucose [Mass/Vol] 95 mg/dL 74-106 [facility] Neutrophils (Bld) [#/Vol] 4.5 10*3/uL 2.0-7.7 [facility] Neutrophils/100 WBC (Bld) 68.0 % 47-70 [facility] Potassium [Moles/Vol] 4.1 mmol/L 3.5-5.1 [facility] Sodium [Moles/Vol] 137 mmol/L 136-145 [facility] WBC (Bld) [#/Vol] 6.6 10*3/uL 4.4-11.0 [facility] Blood erythrocytes count (nu mber/volume)Ordered By: Kiko Pittman on 04-04-2023 RBC (Bld) [#/Vol] 3.42 10*6/uL 4.2-5.4 [facility] Blood hemoglobin measurement (mass/volume)Ordered By: Kiko Pittman on 04-04-2023 Hemoglobin (Bld) [Mass/Vol] 9.7 g/dL 12.0-15.0 [facility] Blood lymphocytes/100 leukoc ytesOrdered By: Kikomichelle Pittman on 04-04-2023 Lymphocytes/100 WBC (Bld) 16.8 % 19-41 [facility] Blood monocytes/100 leukocyt esOrdered By: Kikomichelle Pittman on 04-04-2023 Monocytes/100 WBC (Bld) 11.8 % 0-10 [facility] Blood platelet mean volumeOr dered By: Kikomichelle Pittman on 04-04-2023 Platelet mean volume (Bld) [Entitic vol] 9.7 fL 6.2-12.0 [facility] Determination of erythrocyte mean corpuscular volume (MCV)Ordered By: Kiko Pittman on 04-04-2023 MCV (RBC) [Entitic vol] 91.8 fL 81-99 [facility] Hematocrit Auto (Bld) [Volum e fraction]Ordered By: Kiko Pittman on 04-04-2023 Hematocrit (Bld) [Volume fraction] 31.4 % 37-47 [facility] Laboratory - Chemistry and C hemistry - challengeOrdered By: Kikomichelle Pittman on 04-04-2023 CO2 [Moles/Vol] 24.0 mmol/L 21.0-32.0 [facility] Urea nitrogen/Creatinine [Mass ratio] 9.5 mg/mg 10-20 [facility] - Hematology and Cell countsOrdered By: Kikomichelle Pittman on 04-04-2023 Erythrocyte distribution width (RBC) [Entitic vol] 48.9 fL 35.1-43.9 [facility] Erythrocyte distribution width (RBC) [Ratio] 14.5 % 11.6-14.6 [facility] Immature granulocytes/100 WBC (Bld) 1.100 % 0.0-0.9 [facility] Comment on above: IG% - Immature Granu locytes (promyelocytes, myelocytes and metamyelocytes) > 1% indicates that a LEFT SHIFT is Present. MCH (RBC) [Entitic mass] 28.4 pg 27.0-32.0 [facility] Nucleated RBC/100 WBC (Bld) [Ratio] 0 % 0-5 [facility] MCHC Auto (RBC) [Mass/Vol]Or dered By: Kiko Pittman on 04-04-2023 MCHC (RBC) [Mass/Vol] 30.9 g/dL 32-36 [facility] No Panel InformationOrdered By: Kikomichelle Pittman on 04-04-2023 Estimated Creatinine Clearance Calc 41.70 ml/min [facility] Estimated GFR (MDRD) Amer 47 mL/min >60 [facility] Comment on above: GFR Calc Estimated GFR (MDRD) Non-Af Amer 39 mL/min >60 [facility] Comment on above: Non- GFR Calc Platelets bldOrdered By: Kikomichelle Pittman on 04-04-2023 Platelets (Bld) [#/Vol] 332 10*3/uL 150-450 [facility] Serum or plasma calcium lakeisha urement (mass/volume)Ordered By: Kiko Pittman on 04-04-2023 Calcium [Mass/Vol] 9.4 mg/dL 8.5-10.1 [facility] Serum or plasma creatinine m easurement (mass/volume)Ordered By: Kiko Pittman on 04-04-2023 Creatinine [Mass/Vol] 1.37 mg/dL 0.55-1.02 [facility] Comment on above: The validity of the calculated GFR & GFRAA in patients over 70 years has not been determined. Clinical correlation is essential. Serum or plasma urea nitroge n measurement (mass/volume)Ordered By: Kikomichelle Pittman on 04-04-2023 Urea nitrogen [Mass/Vol] 13 mg/dL - [facility] Thin prep Papanicolaou smear with manual screeningOrdered By: Kikomichelle Pittman on 04-04-2023 Thin prep Papanicolaou smear with manual screening 8 - [facility] CBC panel Auto (Bld)on 04-01 Erythrocyte distribution width (RBC) [Ratio] 14.1 % Normal 11.5-15.0 [facility] Comment on above: Order Comment: Jean weems Type: BLOOD SPECIMENOrdering Facility: [facility] Address: [address] [place] [address] Performed By: #### 5 8410-2 ####[facility] LABORATORYCLIA [id number] [place] [address] [place] Hematocrit (Bld) [Volume fraction] 26.8 % Low 36.0-46.0 [facility] Comment on above: Order Comment: Speci men Type: BLOOD SPECIMENOrdering Facility: [facility] Address: [address] [place] [address] Performed By: #### 5 8410-2 ####ZEE LABORATORYCLIA [id number] [place] [address] [place] Hemoglobin (Bld) [Mass/Vol] 8.3 g/dL Low 11.5-15.5 [facility] Comment on above: Order Comment: Speci men Type: BLOOD SPECIMENOrdering Facility: [facility] Address: [address] [address] Performed By: #### 5 8410-2 ####ZEE LABORATORYCLIA [id number] [address] MCH (RBC) [Entitic mass] 27.9 pg Normal 26.0-34.0 [facility] Comment on above: Order Comment: Speci men Type: BLOOD SPECIMENOrdering Facility: [facility] Address: [address] [place] [address] Performed By: #### 5 8410-2 ####ZEE LABORATORYCLIA [id number] [address] MCHC (RBC) [Mass/Vol] 31.0 g/dL Normal 30.5-36.0 [facility] Comment on above: Order Comment: Speci men Type: BLOOD SPECIMENOrdering Facility: [facility] Address: [address] [place] [address] Performed By: #### 5 8410-2 ####ZEE LABORATORYCLIA [id number] [address] MCV (RBC) [Entitic vol] 90.2 fL Normal 80.0-100.0 [facility] Comment on above: Order Comment: Speci men Type: BLOOD SPECIMENOrdering Facility: [facility] Address: [address] [place] [address] Performed By: #### 5 8410-2 ####ZEE LABORATORYCLIA [id number] [address] Nucleated RBC (Bld) [#/Vol] 10*3/uL Normal <0.01 [facility] Comment on above: Order Comment: Speci men Type: BLOOD SPECIMENOrdering Facility: [facility] Address: [address] [place] [address] Performed By: #### 5 8410-2 ####ZEE LABORATORYCLIA [id number] [address] Platelet mean volume (Bld) [Entitic vol] 10.2 fL Normal 9.0-12.7 [facility] Comment on above: Order Comment: Speci men Type: BLOOD SPECIMENOrdering Facility: [facility] Address: [address] [place] [address] Performed By: #### 5 8410-2 ####ZEE LABORATORYCLIA [id number] [address] [place] Platelets (Bld) [#/Vol] 334 10*3/uL Normal 150-400 [facility] Comment on above: Order Comment: Speci men Type: BLOOD SPECIMENOrdering Facility: [facility] Address: [address] [place] [address] Performed By: #### 5 8410-2 ####ZEE LABORATORYCLIA [id number] [place] [address] [facility] [place] RBC (Bld) [#/Vol] 2.97 10*6/uL Low 3.90-5.20 [facility] Comment on above: Order Comment: Speci men Type: BLOOD SPECIMENOrdering Facility: [facility] Address: [address] [place] [address] Performed By: #### 5 8410-2 ####ZEE LABORATORYCLIA [id number] [place] [address] [facility] [place] WBC (Bld) [#/Vol] 6.11 10*3/uL Normal 3.70-11.00 [facility] Comment on above: Order Comment: Speci men Type: BLOOD SPECIMENOrdering Facility: [facility] Address: [address] [place] [address] Performed By: #### 5 8410-2 ####ZEE LABORATORYCLIA [id number] [address] [place] CNDSon 04-01-2023 CNDS HNO ID: [id number] Author: Chhaya Stacy MD Service: Hospital Medicine Author Type: Physician Type: Discharge Summary Filed: 04/14/2023 4:37 PM Note Text: DISCHARGE SUMMARY PATIENT NAME: Chema Koroma Code Status: Not on file Highest Readmission Risk Score: 20 The 30 day readmissions risk score is derived from an internally validated risk model which evaluates patient level characteristics, utilization history, medication orders and lab results up until the day of discharge. Patients with a score of 40 or above are considered highest risk for readmission. Specific patient level drivers will be listed at the bottom of the summary. 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 Admitted because of weeping with purulent drainage ,redness and pain of LLE due to left lower extremity cellulitis. She failed outpatient antibiotic therapy. On admission,she was afebrile. No leukocytosis. Lactate was normal. CRP 9, ESR 98 creatinine was 1.37. Ultrasound was negative for DVT. X-ray of the left leg showed some soft tissue prominence/swelling and nonspecific soft tissue calcification but no active bony destructive process. Chest x-ray was unremarkable. She was diagnosed with sepsis not present on admission due left lower extremity cellulitis and VICTORINO. She was started on intravenous vancomycin and Zosyn. Infectious disease was consulted and her antibiotic was changed to intravenous Ancef and doxycycline. Preliminary wound cultures was positive for Pseudomonas aeruginosa. Preliminary blood cultures were negative for 3 days. She received intravenous fluid hydration, lisinopril was held with creatinine levels returning back to normal at 0.95 suggesting that VICTORINO is likely of prerenal etiology. She had recurrent hypokalemia (POA)which was replaced until her potassium level was back to normal. Her magnesium level was within normal limits. Patient reports improved symptoms with current treatment and requested to be discharged today otherwise she will leave AGAINST MEDICAL ADVICE. This was discussed with ID who discussed with patient and advised her to stay to wait for the sensitivity results however patient refused and requested to be discharged or she will leave AGAINST MEDICAL ADVICE. As such, infectious disease physician recommended she can be discharged on Levaquin 750 mg every 48 hours for total of 5 doses. Patient was also very weak since admission and was not very active. She was seen by physical therapist and she was able to perform certain activities but refused to climb the stairs with PT stating that she wants to go home as she has a physical therapist that she works with outpatient who is also working with her lymphedema and helps control her symptoms . As such, the physical therapist recommended discharge with home health care however patient declined home health care and would rather continue with outpatient physical therapist with her physical therapist who is also a lymphedema specialist so she was discharged with [facility] to continue outpatient PT with her therapist.. The family was concerned about the discharge however I spoke with Amy Monaco regarding her refusal to stay in the hospital until her results are back and as such I will discharge her as she is competent to make her own decisions. She inquired if she is a candidate for hospice and I stated she is not. 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 Patient was cleared for discharge on levaquin with outpatient physical therapist f/up /PCP.Lisinopril was resumed at discharge .[facility] outpatient renal function test during f/up with pcp Will call if there is any need to change antibiotic based on results SUMMARY OF WHAT HAPPENED WHILE I WAS IN THE HOSPITAL: See below OTHER PROBLEMS/DIAGNOSIS: Principal Problem: Sepsis not present on admission due to left lower extremity cellulitis. Lower extremity edema Active Problems: Hypopotassemia (POA) VICTORINO (acute kidney injury) (HCC) Leg ulcer, left, limited to breakdown of skin (HCC) At high risk for impaired skin integrity Resolved Problems: * No resolved hospital problems. * OPERATIONS PERFORMED WHILE IN THE HOSPITAL: None IMPORTANT TEST/PROCEDURES: X-ray tibia/fibula Lower extremity ultrasound Chest x-ray TEST RESULTS NOT AVAILABLE AT THIS TIME: The plan for following up on pending results below is you (more content not included)... [facility] CONSULTon 04-01-2023 CONSULT HNO ID: [id number] Author: Carmelita Myers APRN.MIRA Service: Wound/Ostomy Author Type: Nurse Practitioner Type: Consults Filed: 04/01/2023 12:17 PM Note Text: WOUND CARE SERVICE CONSULT NOTE SERVICE DATE: 04/01/2023 SERVICE TIME: [address] Tu Greer for an opinion regarding left leg. My final recommendations will be communicated back to requesting provider by way of shared medical record. Subjective HISTORY OF PRESENT ILLNESS: Chema Koroma is a 82 year old female is being seen with the admitting diagnosis of lower extremity edema. Presenting wound information: Pt is seen and evaluated at bedside with physical therapist present. Wound HPI provided by pt and medical record. Pt with h/o chronic lymphedema, HTN, GERD, cardiomyopathy, and CVA presented to the hospital with c/o increasing redness, swelling, and pain of her LLE. Per chart review, pt receives lymphedema treatment with wraps every Saturday in the [facility]. About 2 weeks ago she noticed LLE redness and pain and was treated at [facility] from 03/17-03/19/23 for LLE cellulitis. She was discharged to home with a prescription for Cefdinir. She completed the antibiotic and followed up with her PCP who prescribed another course of atbx. Completed 4 days worth of the atbx from PCP but the redness and pain continued to worsen. Pt reports some discomfort to LLE. She states that her legs were wrapped with CYNDIE wraps on BLE but it was uncomfortable d/t dressing sticking to her legs so she is no longer wearing them. Denies fever/chills. REVIEW OF SYSTEMS: PAIN ASSESSMENT: See HPI GENERAL: No weight loss, malaise or fevers SKIN: See HPI PAST MEDICAL HISTORY Diagnosis Date Abnormal Pap smear of cervix 08/26/2009 atypical glandular cells Acute, but ill-defined, cerebrovascular disease Diverticulosis of colon (without mention of hemorrhage) Endometrial adenocarcinoma (HCC) 11/24/2010 Esophageal reflux Gastroesophageal reflux Heart attack (HCC) 2021 HTN (hypertension) Malignant neoplasm of breast (female), unspecified site 08/26/1991 Breast cancer Mixed hyperlipidemia Hyperlipidemia Osteoarthrosis, unspecified whether generalized or localized, other specified sites Osteoarthritis KNEE Other primary cardiomyopathies Cardiomyopathy PMH - PAST MEDICAL HISTORY OF idiopathic Thrombocytic purpura 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 Unspecified visual loss Blindness LEFT EYE Uterine fibroid PAST SURGICAL HISTORY Procedure Laterality Date BREAST PROSTHESIS, NOS COLONOSCOPY 05/24/2003 COLONOSCOPY FLX DX W/COLLJ SPEC WHEN PFRMD 07/09/2012 Colonoscopy DILATION AND CURETTAGE DXAND/THER NONOBSTETRIC 1996 EGD 12/06/2004 ESOPHAGOGASTRODUODENOSCOPY TRANSORAL DIAGNOSTIC 07/09/2012 barretts HYSTERECTOMY 01/24/2011 Hand-assisted laparoscopic hysterectomy, bilateral - for grade 1/2 endometrial cancer HYSTEROSCOPY BX ENDOMETRIUMAND/POLYPC W/WO DANDC 2002 HYSTEROSCOPY BX ENDOMETRIUMAND/POLYPC W/WO DANDC 12/12/2010 LEFT HEART CATH,PERCUTANEOUS 2021 no stents MASTECTOMY,SIMPLE 1991 Social History Tobacco Use Smoking status: Never Smokeless tobacco: Never Vaping Use Vaping Use: Never used Substance Use Topics Alcohol use: No Drug use: No FAMILY HISTORY Problem Relation Age of Onset Heart Mother age 93 Hypertension Mother Thyroid Mother Prostate Cancer Father age 71 Breast Cancer Maternal Aunt 70's Breast Cancer Other M. Cousin age 45 MEDICATIONS: Current Facility-Administered Medications Medication Dose Route Frequency NaCl 0.9% iv flush bag 20 mL INTRAVENOUS PRN polyethylene glycol 3350 17 g packet 17 g ORAL DAILY PRN bisacodyl 10 mg suppository (DULCOLAX) 10 mg RECTAL DAILY PRN acetaminophen 650 mg tab(s) (TYLENOL) 650 mg ORAL q 6 H PRN melatonin 6 mg tab(s) 6 mg ORAL AT BEDTIME PRN carvedilol 6.25 mg tab(s) (COREG) 6.25 mg ORAL BID w MEALS traMADol 50 mg tab(s) (ULTRAM) 50 mg ORAL q [address] 40 mg tab(s) (PROTONIX) 40 mg ORAL DAILY (6 AM) potassium chloride ER 40 mEq tab(s) (KLOR-CON) 40 mEq ORAL BID levoFLOXacin 750 mg tab(s) (LEVAQUIN) 750 mg ORAL q 48 H ALLERGIES Allergen Reactions Aspirin Bentyl [Dicyclomine* Hives Mri Dye [Gadolinium* Shortness of Breath Tape [Adhesive Tape* Rash rash Objective PHYSICAL EXAM: BP 131/62 Pulse 90 Temp (Src) 98.2 (Oral) Resp 18 Ht 5' 0 (1.52m) Wt 193 lb 2 oz (87.6kg) SpO2 95% BMI 37.72 kg/(m2). O2 Therapy: Room Air General: Alert, no distress, cooperative Musculoskeletal: Requires some assistance with bed mobility Extremities: LLE edema, BLE chronic lymphedema changes, LLE DP pulse palpable Wound: (See photo in get images) Left Lateral Lower Extremity: Multiple scattered weeping lesions. Medium amount yellow drainage. DATA Diagnostic tests reviewed for today's visit: Wound photo Most recent labs a (more content not included)... [facility] CONSULT PROGon 04-01-2023 CONSULT PROG HNO ID: [id number] Author: Tania Simeon RPh Service: Pharmacy Author Type: Pharmacist Type: Consult Progress Note Filed: 04/01/2023 10:29 AM Note Text: PHARMACY PROGRESS NOTE Patient Name: Chema Koroma Admission Date: 03/29/2023 Date of Consult: 04/01/2023 Time of Consult: 10:27 AM In accordance with the inpatient pharmacy consult agreement the following medication changes have been made: Renal dosing Discontinue levofloxacin 500 mg daily, change to levofloxacin 750 mg q48h per renal dosing guidelines. Creatinine (mg/dL) Date Value 04/01/2023 0.95 CrCl: 43.4 mL/min Pharmacy will continue to monitor patient for continued eligibility of these medication changes. Please call with any questions or concerns. SIGNATURE: Tania Simeon RPh DATE/TIME: 04/01/2023 10:27 AM [facility] CONSULT PROG HNO ID: [id number] Author: Ronnie Frank MD Service: Infectious Disease Author Type: Physician Type: Consult Progress Note Filed: 04/01/2023 10:07 AM Note Text: INFECTIOUS DISEASE PROGRESS NOTE Patient Name: Chema Koroma INTERVAL HISTORY: Wound is better. No new complaints. No fevers. Pain is better. Patient Active Hospital Problem List: Lower extremity edema (03/29/2023) VICTORINO (acute kidney injury) (HCC) (03/30/2023) ASSESSMENT: Cellulitis left lower extremity - XR > soft tissue swelling - failed OP antbx, Left leg pain Elevated CRP and Sed rate Chronic lymphedema Obesity Hyperlipidemia PLAN: Wound culture D/c Ancef. Start Levaquin x 5 days empirically pending sensitivities. ECG rev, no drug interactions or allergies noted Wound care and edema management at [place] PT eval. Leg elevation Follow blood cultures Monitor temp and WBC Patient wants to leave AMA. Discussed the issues for discharged wo MICs available and possibility of treatment failure and need for IV abx. She is not interested in staying MEDICATIONS: reviewed. Current Facility-Administered Medications Medication Dose Route Frequency NaCl 0.9% iv flush bag 20 mL INTRAVENOUS PRN polyethylene glycol 3350 17 g packet 17 g ORAL DAILY PRN bisacodyl 10 mg suppository (DULCOLAX) 10 mg RECTAL DAILY PRN acetaminophen 650 mg tab(s) (TYLENOL) 650 mg ORAL q 6 H PRN melatonin 6 mg tab(s) 6 mg ORAL AT BEDTIME PRN carvedilol 6.25 mg tab(s) (COREG) 6.25 mg ORAL BID w MEALS traMADol 50 mg tab(s) (ULTRAM) 50 mg ORAL q [address] 40 mg tab(s) (PROTONIX) 40 mg ORAL DAILY (6 AM) ceFAZolin iv piggyback 1 g in D5W (iso-osmotic) 50 mL (ANCEF) 1 g INTRAVENOUS q 8 H doxycycline hyclate 100 mg cap(s) (VIBRAMYCIN) 100 mg ORAL q 12 H 6a/6p potassium chloride ER 40 mEq tab(s) (KLOR-CON) 40 mEq ORAL BID ondansetron (PF) 4 mg injection (ZOFRAN) 4 mg INTRAVENOUS q 6 H PRN PHYSICAL EXAM: Vital signs: BP 131/62 Pulse 90 Temp 36.8 ?C (98.2 ?F) (Oral) Resp 18 Ht 152.4 cm (5') Wt 87.6 kg (193 lb 2 oz) SpO2 95% BMI 37.72 kg/m? Temp (24hrs), Av.8 ?C (98.2 ?F), Min:36.8 ?C (98.2 ?F), Max:36.8 ?C (98.2 ?F) General: alert, oriented, NAD Lungs: bilaterally clear to auscultation Heart: regular rate and rhythm Abdomen: soft, non tender, non distended, BS+ Extremities: L leg lymphedem and wound infection No rashes No joint inflammation Neck supple Lines ok No CVAT Lines, Drains, and Airways Line Duration Peripheral 03/30/23 2200 Right Wrist 22 Gauge 1 day Drain Duration External Collection Device 03/30/23 1500 1 day Labs: Recent Labs 04/01/23 0500 03/31/23 0613 03/30/23 0505 03/30/23 0005 03/29/23 2129 03/29/23 1821 WBC 6.11 7.27 6.96 -- -- 9.07 HB 8.3* 8.5* 8.0* -- -- 9.3* PLT 334 374 338 -- -- 396 NA 140 142 141 -- -- 142 K 4.5 3.3* 3.3* -- -- 3.2* CO2 27 29 30 -- -- 30 BUN 9 12 14 -- -- 16 CREAT 0.95 0.99* 1.14* -- -- 1.37* AST 13 13 12* -- -- 17 ALT <5* 7 7 -- -- 9 TBILI 0.2 0.2 0.3 -- -- 0.3 ALKPHOS 66 69 64 -- -- 82 WSR -- -- 98* -- -- -- CRP -- -- -- -- 9.0* -- LACT -- -- -- -- -- 1.8 VANCORA -- -- -- 19.4 -- -- Microbiology data: reviewed Imaging data: reviewed Ronnie Frank MD Pager: Date of service: 04/01/2023 Time of service: 10:04 AM This note is not final until Authenticated by responsible provider. Normal [facility] Comprehensive metabolic 2000 panelon 04-01-2023 Albumin [Mass/Vol] 2.3 g/dL Low 3.9-4.9 [facility] Comment on above: Order Comment: Jean weems Type: BLOOD SPECIMEN [facility] Address: [address] [place] [address] Performed By: #### L [id number] #### [facility] CLIA [id number] [address] ALP [Catalytic activity/Vol] 66 U/L Normal 34-123 [facility] Comment on above: Order Comment: Jean weems Type: BLOOD SPECIMEN [facility]ing [facility]: [facility] Address: [address] [address] Performed By: #### L [id number] #### [facility] CLIA [id number] [address] ALT [Catalytic activity/Vol] U/L Low 7-38 [facility] Comment on above: Order Comment: Speci men Type: BLOOD SPECIMEN [facility]ing [facility]: [facility] Address: [address] [place] [address] Performed By: #### L [id number], 1987-12 #### [facility] CLIA [id number] [address] Anion gap [Moles/Vol] 8 mmol/L Low 9-18 [facility] Comment on above: Order Comment: Speci men Type: BLOOD SPECIMEN [facility]: [facility] Address: [address] [address] Performed By: #### L [id number], 1987-12 #### [facility] CLIA [id number] [address] AST [Catalytic activity/Vol] 13 U/L Normal 13-35 [facility] Comment on above: Order Comment: Speci men Type: BLOOD SPECIMEN Ordering [facility]: [facility] Address: [address] [place] [address] Performed By: #### L [id number] #### [facility] CLIA [id number] [address] Bilirubin [Mass/Vol] 0.2 mg/dL Normal 0.2-1.3 [facility] Comment on above: Order Comment: Speci men Type: BLOOD SPECIMEN [facility]ing [facility]: [facility] Address: [address] [place] [address] Performed By: #### L [id number] #### [facility] CLIA [id number] [address] Calcium [Mass/Vol] 8.6 mg/dL Normal 8.5-10.2 [facility] Comment on above: Order Comment: Speci men Type: BLOOD SPECIMEN Ordering Facility: [facility] Address: [address] [place] [address] Performed By: #### L [id number] #### [facility] CLIA [id number] [address] [place] Chloride [Moles/Vol] 105 mmol/L Normal 97-105 [facility] Comment on above: Order Comment: Speci men Type: BLOOD SPECIMEN Ordering Facility: [facility] Address: [address] [place] [address] Performed By: #### L [id number], 1987-12 #### [facility] CLIA [id number] [address] [place] [address] [place] CO2 [Moles/Vol] 27 mmol/L Normal 22-30 [facility] Comment on above: Order Comment: Speci men Type: BLOOD SPECIMEN Ordering Facility: [facility] Address: [address] [place] [address] Performed By: #### L [id number], 1987-12 #### [facility] CLIA [id number] [address] Creatinine [Mass/Vol] 0.95 mg/dL Normal 0.58-0.96 [facility] Comment on above: Order Comment: Speci men Type: BLOOD SPECIMEN Ordering Facility: [facility] Address: [address] [place] [address] Performed By: #### L [id number], 1987-12 #### [facility] CLIA [id number] [address] ESTIMATED GLOMERULAR FILTRATION RATE 59 mL/min/1.73m??? Low >=60 [facility] Comment on above: Order Comment: Speci men Type: BLOOD SPECIMEN Ordering Facility: [facility] Address: [address] [place] [address] Result Comment: Harika mated Glomerular Filtration Rate (eGFR) is calculated using the 2020 CKD-EPI creatinine equation. This equation utilizes serum creatinine, sex, and age as parameters. The creatinine assay has traceable calibration to isotope dilution-mass spectrometry. Refer to KDIGO guidelines for clinical interpretation. In patients with unstable renal function, e.g. those with acute kidney injury, the eGFR may not accurately reflect actual GFR. Performed By: #### L [id number], 1987-12 #### [facility] CLIA [id number] [address] [place] Glucose [Mass/Vol] 88 mg/dL Normal 74-99 [facility] Comment on above: Order Comment: Jean weems Type: BLOOD SPECIMEN Ordering Facility: [facility] Address: [address] [place] [address] Result Comment: The [place] Diabetes [employer] (ADA) provides guidance for cutoff values for fasting glucose and random glucose. The ADA defines fasting as no caloric intake for at least 8 hours. Fasting plasma glucose results between 100 to 125 mg/dL indicate increased risk for diabetes (prediabetes). Fasting plasma glucose results greater than or equal to 126 mg/dL meet the criteria for diagnosis of diabetes. In the absence of unequivocal hyperglycemia, results should be confirmed by repeat testing. In a patient with classic symptoms of hyperglycemia or hyperglycemic crisis, random plasma glucose results greater than or equal to 200 mg/dL meet the criteria for diagnosis of diabetes. Reference: Standards of Medical Care in Diabetes 2016, [place] [employer]. Diabetes Care. 2016.39(Suppl 1). Performed By: #### L [id number] #### [facility] CLIA [id number] [address] [place] [address] [place] Potassium [Moles/Vol] 4.5 mmol/L Normal 3.7-5.1 [facility] Comment on above: Order Comment: Jean weems Type: BLOOD SPECIMEN Ordering Facility: [facility] Address: [address] [place] [address] Performed By: #### L [id number] #### [facility] CLIA [id number] [address] [place] [address] [place] Protein [Mass/Vol] 5.7 g/dL Low 6.3-8.0 [facility] Comment on above: Order Comment: Jean weems Type: BLOOD SPECIMEN Ordering Facility: [facility] Address: [address] [place] [address] Performed By: #### L [id number] #### [facility] [facility] CLIA [id number] [address] [place] [address] [place] Sodium [Moles/Vol] 140 mmol/L Normal 136-144 [facility] Comment on above: Order Comment: Jean weems Type: BLOOD SPECIMEN Ordering Facility: [facility] Address: [address] [place] [address] Performed By: #### L [id number], 1987-12 #### [facility] CLIA [id number] [address] [place] [address] [place] Urea nitrogen [Mass/Vol] 9 mg/dL Normal - [facility] Comment on above: Order Comment: Speci men Type: BLOOD SPECIMEN Ordering Facility: [facility] Address: [address] [place] [address] Performed By: #### L [id number], 1987-12 #### [facility] CLIA [id number] [address] [place] [address] [place] Magnesium SerPl-mCncon 04-01 Magnesium [Mass/Vol] 1.8 mg/dL Normal 1.7-2.3 [facility] Comment on above: Order Comment: Speci men Type: BLOOD SPECIMEN Ordering Facility: [facility] Address: [address] [place] [address] Performed By: #### L [id number], 1987-12 #### [facility] CLIA [id number] [address] [place] [address] [place] THERAPY NTon 04-01-2023 THERAPY NT HNO ID: [id number] Author: Ros Moore PT Service: Physical Therapy Author Type: Physical Therapist Type: Therapy (PT/OT/Speech/Resp) Filed: 04/01/2023 11:56 AM Note Text: Physical Therapy Evaluation SERVICE DATE: 04/01/2023 SERVICE TIME: 0950 to 1118 ROOM: [place] [address] Recommended Discharge Disposition: Home PT Recommended Discharge Disposition Comments: for safety assessment and to increase strength and progress safe functional mobility. patient receives OP PT for lymphedema care and per patient insurance will not cover home PT as well Anticipated Discharge Needs: Physical Assist at Home, Supervision at Home Physical Assist at Home for: Cleaning, Laundry, Meals, Shopping, Transportation (PRN assist) Supervision at Home due to: (PRN supervision) Recommended Discharge Equipment: No equipment needs anticipated PT 6 Clicks Score: 17 Precautions/Activity Restrictions: Fall Risk, Lines/Tubes/Drains, Bed/Chair Alarm Current Hospital Course: patient admitted with Dx:Dx: Lower extremity edema Reason for Hospital Admission: patient presents with increased B LE edema left more than right with redness and patient also feeling unwell. patient also had prior admission to [facility] from 03/24 - 03/26 due to left leg pain Relevant Past Medical History: breast CA, osteoarthrosis, cerebrovascular disease, esophageal reflux, cardimyopathies, HLD, stroke, endometrial adenocarcinoma, HTN, diverticulosis, heart attack. CVA. lymphedema Response to Therapy Interventions: Good Participation in Activities, On-Track to Achieve Discharge Goals, Needs Frequent Redirection or Reinstruction, Notable Progression with Functional Activities/Skills, Pain, Requires Additional Time to Complete Activities, Requires Encouragement to Complete Activities, Slow Progression with Functional Activities/Skills Assessment Comments: patient presents with B LE edema and has had left LE pain which has improved since in the hospital, general weakness and impaired functional mobility. patient normally ind with quad cane at baseline however hasn't been up since admission and unsteady reaching for external surface support with use of quad cane when attempted with improved stability/balance and gait distance with FWW. patient with B LE edema/scales/redness and has been seeing outpatient PT for lymphedema care. patient AANDO x 3 however distractible/divided and needs increased redirection and encouragement throughout. patient sleeps in a recliner at baseline and doesn't perform bed mobility. would benefit from strengthening and functional progression Continued Skilled Needs Due to: Functional Mobility/Skill Impairments, Safety Concerns Physical Therapy Problem List: Edema, Pain, Safety Deficits, Impaired Self Care, Decreased Activity Tolerance, Decreased Range Of Motion, Decreased Strength, Functional Mobility Impairment, Balance Impaired Treatment Interventions: Education, Self Care / Home Management, Energy Conservation Training, Joint Mobility, Strengthening, Functional Mobility Training, Balance Training, Neuromuscular Re-education Plan for Next Visit: Cane Training, Edema Management, Fall Prevention, Gait Training, Exercise Instruction/Handout, Pre-gait Activities, Sit to Stand Transfers, Sitting Balance, Standing Balance, Stair Training, Standing Tolerance, Walker Training Home Environment Patient Lives With: Self/Alone, Other: See Comment Comments: has been staying with friend since recent discharge from [place] and 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 Assistance Available: PRN, Other: See Comment Comments: friend x 3/week Entry To Home: Stairs, With Rail Number Of Stairs Into Home: 3 Number Of Stairs To Bed/Bath: 0 - first floor set up with recliner and full bath Tub/Shower Type: walk in shower however patient tends to do sponge bathing as she is fearful of getting in/out of shower Laundry: friend takes her to a laundromat Equipment Owned: Other: See Comment, Walker- Wheeled, Commode- Raised, Shower Chair, Grab Bars- Shower, Grab Bars- Toilet, Hand Held Shower (quad cane) Prior Functional Level: Required Assistance Assistance Required With: Transportation, Meals Prior Functional Level Comments: patient ind with amb with quad cane. has weekly PT for lymphedema. patient ind sponge bath and dressing, light cleaning. friend helps with heavier cleaning. able to complete her own laundry at [facility]. friend does all driving. denies falls.sleeps in recliner Subjective: patient agreeable to PT and cleared by RN. patient notes that she is leaving today no matter what. patient notes she hasn't been out of bed and it feels good, requests to sit up in chair CURRENT FUNCTIONAL STATUS: Most recent performance Current Functional Mobility Assist Level Additional Information Rolling Supine to Sit Moderate Assistance, Additional Information HOB 45 deg, min rail use, s (more content not included)... Normal [facility] CBC panel Auto (Bld)on 03-31 Erythrocyte distribution width (RBC) [Ratio] 14.1 % Normal 11.5-15.0 [facility] Comment on above: Order Comment: Jean weems Type: BLOOD SPECIMEN Ordering Facility: [facility] Address: [address] [place] [address] Performed By: #### L [id number] #### [facility] CLIA [id number] [address] [place] [address] [place] Hematocrit (Bld) [Volume fraction] 27.2 % Low 36.0-46.0 [facility] Comment on above: Order Comment: Jean weems Type: BLOOD SPECIMEN Ordering Facility: [facility] Address: [address] [place] [address] Performed By: #### L [id number] #### [facility] CLIA [id number] [address] [place] [address] [place] Hemoglobin (Bld) [Mass/Vol] 8.5 g/dL Low 11.5-15.5 [facility] Comment on above: Order Comment: Speci men Type: BLOOD SPECIMEN Ordering Facility: [facility] Address: [address] [place] [address] Performed By: #### L [id number] #### [facility] CLIA [id number] [address] MCH (RBC) [Entitic mass] 27.4 pg Normal 26.0-34.0 [facility] Comment on above: Order Comment: Speci men Type: BLOOD SPECIMEN Ordering Facility: [facility] Address: [address] [place] [address] Performed By: #### L [id number] #### [facility] CLIA [id number] [address] MCHC (RBC) [Mass/Vol] 31.3 g/dL Normal 30.5-36.0 [facility] Comment on above: Order Comment: Speci men Type: BLOOD SPECIMEN Ordering Facility: [facility] Address: [address] [place] [address] Performed By: #### L [id number] #### [facility] CLIA [id number] [address] MCV (RBC) [Entitic vol] 87.7 fL Normal 80.0-100.0 [facility] Comment on above: Order Comment: Speci men Type: BLOOD SPECIMEN Ordering Facility: [facility] Address: [address] Performed By: #### L [id number] #### [facility] CLIA [id number] [address] Nucleated RBC (Bld) [#/Vol] 10*3/uL Normal <0.01 [facility] Comment on above: Order Comment: Speci men Type: BLOOD SPECIMEN Ordering Facility: [facility] Address: [address] Performed By: #### L [id number] #### [facility] CLIA [id number] [address] [place] [address] [place] Platelet mean volume (Bld) [Entitic vol] 10.2 fL Normal 9.0-12.7 [facility] Comment on above: Order Comment: Speci men Type: BLOOD SPECIMEN Ordering Facility: [facility] Address: [address] [place] [address] Performed By: #### L [id number], 1987-12 #### [facility] CLIA [id number] [address] [place] [address] [place] Platelets (Bld) [#/Vol] 374 10*3/uL Normal 150-400 [facility] Comment on above: Order Comment: Speci men Type: BLOOD SPECIMEN Ordering Facility: [facility] Address: [address] [place] [address] Performed By: #### L [id number] #### [facility] CLIA [id number] [address] STATES [facility] RBC (Bld) [#/Vol] 3.10 10*6/uL Low 3.90-5.20 [facility] Comment on above: Order Comment: Speci men Type: BLOOD SPECIMEN Ordering Facility: [facility] Address: [address] [place] [address] Performed By: #### L [id number] #### [facility] CLIA [id number] [address] [place] [address] [place] WBC (Bld) [#/Vol] 7.27 10*3/uL Normal 3.70-11.00 [facility] Comment on above: Order Comment: Speci men Type: BLOOD SPECIMEN Ordering Facility: [facility] Address: [address] [place] [address] Performed By: #### L [id number] #### [facility] CLIA [id number] [address] [place] Comprehensive metabolic 2000 panelon 03-31-2023 Albumin [Mass/Vol] 2.4 g/dL Low 3.9-4.9 [facility] Comment on above: Order Comment: Speci men Type: BLOOD SPECIMEN Ordering Facility: [facility] Address: [address] [place] [address] Performed By: #### 4 091-5 #### [facility] CLIA [id number] [address] [place] ALP [Catalytic activity/Vol] 69 U/L Normal 34-123 [facility] Comment on above: Order Comment: Speci men Type: BLOOD SPECIMEN Ordering Facility: [facility] Address: [address] [place] [address] Performed By: #### 4 091-5 #### [facility] CLIA [id number] [address] ALT [Catalytic activity/Vol] 7 U/L Normal 7-38 [facility] Comment on above: Order Comment: Speci men Type: BLOOD SPECIMEN Ordering Facility: [facility] Address: [address] [place] [address] Performed By: #### 4 091-5 #### [facility] CLIA [id number] [address] STATES OF [facility] Anion gap [Moles/Vol] 9 mmol/L Normal 9-18 [facility] Comment on above: Order Comment: Speci men Type: BLOOD SPECIMEN Ordering Facility: [facility] Address: [address] [place] [address] Performed By: #### 4 091-5 #### [facility] CLIA [id number] [address] [place] AST [Catalytic activity/Vol] 13 U/L Normal 13-35 [facility] Comment on above: Order Comment: Speci men Type: BLOOD SPECIMEN Ordering Facility: [facility] Address: [address] [place] [address] Performed By: #### 4 091-5 #### [facility] CLIA [id number] [address] [place] Bilirubin [Mass/Vol] 0.2 mg/dL Normal 0.2-1.3 [facility] Comment on above: Order Comment: Speci men Type: BLOOD SPECIMEN Ordering Facility: [facility] Address: [address] [place] [address] Performed By: #### 4 091-5 #### [facility] CLIA [id number] [address] [place] Calcium [Mass/Vol] 8.4 mg/dL Low 8.5-10.2 [facility] Comment on above: Order Comment: Speci men Type: BLOOD SPECIMEN Ordering Facility: [facility] Address: [address] [place] [address] Performed By: #### 4 091-5 #### [facility] CLIA [id number] [address] [place] [address] [place] Chloride [Moles/Vol] 104 mmol/L Normal 97-105 [facility] Comment on above: Order Comment: Speci men Type: BLOOD SPECIMEN Ordering Facility: [facility] Address: [address] [place] [address] Performed By: #### 4 091-5 #### [facility] CLIA [id number] [address] [place] [address] [place] CO2 [Moles/Vol] 29 mmol/L Normal 22-30 [facility] Comment on above: Order Comment: Speci men Type: BLOOD SPECIMEN Ordering Facility: [facility] Address: [address] [place] [address] Performed By: #### 4 091-5 #### [facility] CLIA [id number] [address] [place] Creatinine [Mass/Vol] 0.99 mg/dL High 0.58-0.96 [facility] Comment on above: Order Comment: Speci men Type: BLOOD SPECIMEN Ordering Facility: [facility] Address: [address] [place] [address] Performed By: #### 4 091-5 #### [facility] CLIA [id number] [address] [place] ESTIMATED GLOMERULAR FILTRATION RATE 56 mL/min/1.73m??? Low >=60 [facility] Comment on above: Order Comment: Speci men Type: BLOOD SPECIMEN Ordering Facility: [facility] Address: [address] [place] [id number] Result Comment: Harika mated Glomerular Filtration Rate (eGFR) is calculated using the 2020 CKD-EPI creatinine equation. This equation utilizes serum creatinine, sex, and age as parameters. The creatinine assay has traceable calibration to isotope dilution-mass spectrometry. Refer to KDIGO guidelines for clinical interpretation. In patients with unstable renal function, e.g. those with acute kidney injury, the eGFR may not accurately reflect actual GFR. Performed By: #### 4 091-5 #### [facility] CLIA [id number] [address] [place] [address] [place] Glucose [Mass/Vol] 114 mg/dL High 74-99 [facility] Comment on above: Order Comment: Jean weems Type: BLOOD SPECIMEN Ordering Facility: [facility] Address: [address] [place] [address] Result Comment: The [place] Diabetes Association (ADA) provides guidance for cutoff values for fasting glucose and random glucose. The ADA defines fasting as no caloric intake for at least 8 hours. Fasting plasma glucose results between 100 to 125 mg/dL indicate increased risk for diabetes (prediabetes). Fasting plasma glucose results greater than or equal to 126 mg/dL meet the criteria for diagnosis of diabetes. In the absence of unequivocal hyperglycemia, results should be confirmed by repeat testing. In a patient with classic symptoms of hyperglycemia or hyperglycemic crisis, random plasma glucose results greater than or equal to 200 mg/dL meet the criteria for diagnosis of diabetes. Reference: Standards of Medical Care in Diabetes 2016, [place] Diabetes Association. Diabetes Care. 2016.39(Suppl 1). Performed By: #### 4 091-5 #### [facility] CLIA [id number] [address] [place] [address] [place] Potassium [Moles/Vol] 3.3 mmol/L Low 3.7-5.1 [facility] Comment on above: Order Comment: Jean weems Type: BLOOD SPECIMEN Ordering Facility: [facility] Address: [address] [place], [place] [address] Performed By: #### 4 091-5 #### [facility] CLIA [id number] [address] [place] [address] [place] Protein [Mass/Vol] 5.8 g/dL Low 6.3-8.0 [facility] Comment on above: Order Comment: Speci men Type: BLOOD SPECIMEN Ordering Facility: [facility] Address: [address] [place] [address] Performed By: #### 4 091-5 #### [facility] CLIA [id number] [address] Sodium [Moles/Vol] 142 mmol/L Normal 136-144 [facility] Comment on above: Order Comment: Speci men Type: BLOOD SPECIMEN Ordering Facility: [facility] Address: [address] [place] [address] Performed By: #### 4 091-5 #### [facility] CLIA [id number] [address] Urea nitrogen [Mass/Vol] 12 mg/dL Normal 7-21 [facility] Comment on above: Order Comment: Speci men Type: BLOOD SPECIMEN Ordering Facility: [facility] Address: [address] [place] [address] Performed By: #### 4 091-5 #### [facility] CLIA [id number] [address] Magnesium SerPl-mCncon 03-31 Magnesium [Mass/Vol] 1.8 mg/dL Normal 1.7-2.3 [facility] Comment on above: Order Comment: Speci men Type: BLOOD SPECIMEN Ordering Facility: [facility] Address: [address] [place] [address] Performed By: #### 4 091-5 #### [facility] CLIA [id number] [address] [place] ALLIED HEALTHon 03-30-2023 ALLIED HEALTH HNO ID: [id number] Author: Anjali Pruett RT(R) Service: ? Author Type: Technologist Type: Allied Health Filed: 03/30/2023 9:04 AM Note Text: Radiology Service Progress Note PATIENT NAME: Chema Koroma DATE OF SERVICE: March 30, 2023 TIME: 9:04 AM PATIENT IDENTITY VERIFICATION COMPLETED USING TWO (2) IDENTIFIERS: Name and Date of confirmed by patient verbally and Name and Date of confirmed by identification band. FALL SCREENING: Has the patient had 2 falls in the last year or 1 fall with injury or currently using an Ambulatory Assistive Device (Walker, Cane, Wheelchair, Crutches, etc.)? Inpatient: Screened on floor PATIENT GENDER DATA: Female. status: : No status: NO. PATIENT RELEVANT IMPLANT DATA REVIEWED: Not Applicable RADIOLOGY DEPARTMENT: Ultrasound PERIPHERAL IV DATA: Not applicable SIGNED BY: Anjali Purett RT(R) March 30, 2023 9:04 AM [facility] Bacteria Bld Culton 03-30-20 23 Bacteria identified Cx Nom (Bld) CULTURE, BLOOD: No growth 5 days [facility] Comment on above: Performed By: #### 6 00-7 ####[facility] [id number] [address] [place] Bacteria identified Cx Nom (Bld) CULTURE, BLOOD: No growth 5 days [facility] Comment on above: Performed By: #### 6 00-7 ####[facility] [id number] [address] [place] Bacteria Wnd Culton 03-30-20 23 Bacteria identified Cx Nom (Wound) ORGANISM ID: 1 Many Pseudomonas aeruginosa ORGANISM ID: 3 Few skin joselo GRAM STAIN: Moderate Gram negative bacilli Rare Gram positive cocci No Polymorphonuclear Leukocytes ORGANISM ID: 1 (PSEUDOMONAS AERUGINOSA) ------ ANTIBIOTIC INTERPRETATION MELA STATUS REFERENCE RANGE ------ Cefepime S 2 F Susceptible <=8 , Intermediate >8 , Resistant >16 Meropenem S <=0.5 F Susceptible <=2 , Intermediate >2 , Resistant >4 Piperacillin/Tazobac S 8 F Gentamicin S <=2 F Susceptible <=4 , Intermediate >4 , Resistant >8 Tobramycin S <=2 F Susceptible <=4 , Intermediate >4 , Resistant >8 Ciprofloxacin S 0.5 F Susceptible <=0.5 , Intermediate >.5 , Resistant >1 Abnormal [facility] Comment on above: Performed By: #### 6 462-6 ####[facility] [id number] [place] [id number] [place] CASE MGT INIT Kulwant 2022 CASE MGT INIT RABIA HNO ID: [id number] Author: Valery Roth RN Service: ? Author Type: Registered Nurse Type: Care Mgt Initial Assessment Filed: 03/30/2023 9:22 AM Note Text: CARE MANAGEMENT: ASSESSMENT AND DISCHARGE PLAN SERVICE DATE: March 30, 2023 SERVICE TIME: 9:16 AM stem processing machine operator spoke with patient at bedside to complete Care Management Assessment. Introduction made and role of Care Management explained. PCP: Jason Benitez MD - Patient confirmed Primary Contact: Primary Emergency Contact: Patrizia John Address: [address] [place] [address] [place] Mobile Relation: Caregiver Secondary Emergency Contact: Sahil Anson Relation: Nephew Admission Status: Inpatient Insurance Provider: [employer] MEDICARE PPO Discharge Planning requested by: Per Department Practice Potential Transition Plans Home (Patient states she want to return to her home at discharge.) Advance Directives Current Advance Directive: None Current Living Arrangements and Support Lives with: Alone Type of Residence: Private Residence (House) (Single Family Home: 2 Story with Basement and 2 Entry Steps) Does the patient have to climb stairs at home?: Yes;stairs outside the home;stairs within the home Support: Other: See Comment Caregiver: Patrizia John [phone] - Patient states she was staying at Patrizia's home for 2 weeks prior to admission due to concrete work being done near her home. How do you manage to accomplish the following: Independent: Bathe/Shower;Dress;Medicatio n Management Needs Assistance: Meals/Meal Prep;Ambulation (Patient uses a quad cane for mobility. Patient states family members own a restuarant near her and she has food delivered to home.) Dependent: Transportation to appointments/community (Patient states she does not drive) Current Services/Equipment Current Post-Acute Service(s): None DME: Quad Cane. Walker. Wheelchair. Shower Chair. Shower Grab Bar. Discharge Planning Patient Goal(s): Be able to go home [place] Explained: [place] Given: No (Discharge Needs: To be Determined) Are you interested in bedside delivery of your medications? No Discharge Planning Participant(s): Patient Transport at Discharge: Transportation Arrangements: Car Destination: To be Determined Family to Transport - [place] or Amy Baxter Needs Prior to Discharge: Needs Prior to Discharge: To Be Determined;OT/PT Evaluation Post-Acute Discharge Plan: From home. Lives alone with 3 cats. Reports Mostly Independent. States has a private caregiver Patrizia. Patient states she was staying with Patrizia for 2 weeks prior to admission due to concrete work being done near her home. Patient states she wants to return home at discharge. Ambulates with Quad Cane. Has Walker and Wheelchair. Shower Chair and Shower Grab Bars at home. Discharge Pharmacy - [facility] confirmed by patient. Discharge Transportation: [place] Or Amy Baxter. dept to follow. SIGNATURE: Valery Roth RN PATIENT NAME: Chema Koroma DATE: March 30, 2023 TIME: 9:16 AM CONTACT #: [phone] Normal [facility] CBC panel Auto (Bld)on 03-30 Erythrocyte distribution width (RBC) [Ratio] 14.0 % Normal 11.5-15.0 [facility] Comment on above: Order Comment: Speci men Type: BLOOD SPECIMEN Ordering Facility: [facility] Address: [address] [place] [address] Performed By: #### 4 091-5 #### [facility] CLIA [id number] [address] Hematocrit (Bld) [Volume fraction] 25.1 % Low 36.0-46.0 [facility] Comment on above: Order Comment: Speci men Type: BLOOD SPECIMEN Ordering Facility: [facility] Address: [address] [place] [address] Performed By: #### 4 091-5 #### [facility] CLIA [id number] [address] [place] Hemoglobin (Bld) [Mass/Vol] 8.0 g/dL Low 11.5-15.5 [facility] Comment on above: Order Comment: Speci men Type: BLOOD SPECIMEN Ordering Facility: [facility] Address: [address] [place] [address] Performed By: #### 4 091-5 #### [facility] CLIA [id number] 1000 [address] [address] MCH (RBC) [Entitic mass] 27.7 pg Normal 26.0-34.0 [facility] Comment on above: Order Comment: Speci men Type: BLOOD SPECIMEN Ordering Facility: [facility] Address: [address] [place] [address] Performed By: #### 4 091-5 #### [facility] CLIA [id number] [address] MCHC (RBC) [Mass/Vol] 31.9 g/dL Normal 30.5-36.0 [facility] Comment on above: Order Comment: Speci men Type: BLOOD SPECIMEN Ordering Facility: [facility] Address: [address] [place] [address] Performed By: #### 4 091-5 #### [facility] CLIA [id number] [address] MCV (RBC) [Entitic vol] 86.9 fL Normal 80.0-100.0 [facility] Comment on above: Order Comment: Speci men Type: BLOOD SPECIMEN Ordering Facility: [facility] Address: [address] [address] Performed By: #### 4 091-5 #### [facility] CLIA [id number] [address] [place] Nucleated RBC (Bld) [#/Vol] 10*3/uL Normal <0.01 [facility] Comment on above: Order Comment: Speci men Type: BLOOD SPECIMEN Ordering Facility: [facility] Address: [address] [address] Performed By: #### 4 091-5 #### [facility] CLIA [id number] [address] [place] Platelet mean volume (Bld) [Entitic vol] 10.3 fL Normal 9.0-12.7 [facility] Comment on above: Order Comment: Speci men Type: BLOOD SPECIMEN Ordering Facility: [facility] Address: [address] [address] Performed By: #### 4 091-5 #### [facility] CLIA [id number] [address] [place] Platelets (Bld) [#/Vol] 338 10*3/uL Normal 150-400 [facility] Comment on above: Order Comment: Speci men Type: BLOOD SPECIMEN Ordering Facility: [facility] Address: [address] [address] Performed By: #### 4 091-5 #### [facility] CLIA [id number] [address] [place] RBC (Bld) [#/Vol] 2.89 10*6/uL Low 3.90-5.20 [facility] Comment on above: Order Comment: Speci men Type: BLOOD SPECIMEN Ordering Facility: [facility] Address: [address] [address] Performed By: #### 4 091-5 #### [facility] CLIA [id number] [address] [place] WBC (Bld) [#/Vol] 6.96 10*3/uL Normal 3.70-11.00 [facility] Comment on above: Order Comment: Speci men Type: BLOOD SPECIMEN Ordering Facility: [facility] Address: [address], [place] [address] Performed By: #### 4 091-5 #### [facility] CLIA [id number] [address] [place] [address] [place] CONSULTon 03-30-2023 CONSULT HNO ID: [id number] Author: Jamaal Holman APRN.CNP Service: Infectious Disease Author Type: Nurse Practitioner Type: Consults Filed: 03/30/2023 4:42 PM Note Text: INFECTIOUS DISEASE INITIAL CONSULT SERVICE DATE: 03/30/2023 SERVICE TIME: 1:08 PM REASON FOR CONSULT: Cellulitis failure OP therapy Subjective Patient is seen at the request of Dr Brock. My final recommendations will be communicated back to the requesting physician by way of copy of this note or shared electronic medical record. HPI: Chema Koroma who is a 82 year old female with PMHx listed below significant for chronic lymphedema and HTN, presented to ED on 03/30/23 with complaints of worsening swelling, pain, and redness on her LLE. Patient reportedly seen at [facility] on 03/17 with left leg cellulitis - she was d/c home on 03/19 and completed antibiotic. Patient was notably tachycardic on admission other unremarkable VS. WBC has been WNL, CK level : 40 CRP: 9.0 Sed rate: 98 US DVT: Negative XR left Tibia: Diffuse left leg soft tissue prominence/swelling and nonspecific soft tissue calcifications. No radiographic evidence of acute bony destructive process. She was placed on Vancomycin and Zosyn. ID was consulted for additional recommendations. PAST MEDICAL HISTORY Diagnosis Date Abnormal Pap smear of cervix 08/26/2009 atypical glandular cells Acute, but ill-defined, cerebrovascular disease Diverticulosis of colon (without mention of hemorrhage) Endometrial adenocarcinoma (HCC) 11/24/2010 Esophageal reflux Gastroesophageal reflux Heart attack (HCC) 2021 HTN (hypertension) Malignant neoplasm of breast (female), unspecified site 08/26/1991 Breast cancer Mixed hyperlipidemia Hyperlipidemia Osteoarthrosis, unspecified whether generalized or localized, other specified sites Osteoarthritis KNEE Other primary cardiomyopathies Cardiomyopathy PMH - PAST MEDICAL HISTORY OF idiopathic Thrombocytic purpura 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 Unspecified visual loss Blindness LEFT EYE Uterine fibroid PAST SURGICAL HISTORY Procedure Laterality Date BREAST PROSTHESIS, NOS COLONOSCOPY 05/24/2003 COLONOSCOPY FLX DX W/COLLJ SPEC WHEN PFRMD 07/09/2012 Colonoscopy DILATION AND CURETTAGE DXAND/THER NONOBSTETRIC 1996 EGD 12/06/2004 ESOPHAGOGASTRODUODENOSCOPY TRANSORAL DIAGNOSTIC 07/09/2012 barretts HYSTERECTOMY 01/24/2011 Hand-assisted laparoscopic hysterectomy, bilateral - for grade 1/2 endometrial cancer HYSTEROSCOPY BX ENDOMETRIUMAND/POLYPC W/WO DANDC 2002 HYSTEROSCOPY BX ENDOMETRIUMAND/POLYPC W/WO DANDC 12/12/2010 LEFT HEART CATH,PERCUTANEOUS 2021 no stents MASTECTOMY,SIMPLE 1991 Social History Tobacco Use Smoking status: Never Smokeless tobacco: Never Vaping Use Vaping Use: Never used Substance Use Topics Alcohol use: No Drug use: No FAMILY HISTORY Problem Relation Age of Onset Heart Mother age 93 Hypertension Mother Thyroid Mother Prostate Cancer Father age 71 Breast Cancer Maternal Aunt 70's Breast Cancer Other M. Cousin age 45 There is no immunization history for the selected administration types on file for this patient. Current Facility-Administered Medications Medication Dose Route Frequency carvedilol 6.25 mg tab(s) (COREG) 6.25 mg ORAL BID w MEALS traMADol 50 mg tab(s) (ULTRAM) 50 mg ORAL q [address] 40 mg tab(s) (PROTONIX) 40 mg ORAL DAILY (6 AM) NaCl 0.9% iv infusion 75 mL/hr INTRAVENOUS CONTINUOUS NaCl 0.9% iv flush bag 20 mL INTRAVENOUS PRN piperacillin-tazobactam iv piggyback 3.375 g in dextrose (iso-osmotic) 50 mL (ZOSYN) 3.375 g INTRAVENOUS q 6 H vancomycin dosing and monitoring per pharmacy OTHER As Directed polyethylene glycol 3350 17 g packet 17 g ORAL DAILY PRN bisacodyl 10 mg suppository (DULCOLAX) 10 mg RECTAL DAILY PRN acetaminophen 650 mg tab(s) (TYLENOL) 650 mg ORAL q 6 H PRN melatonin 6 mg tab(s) 6 mg ORAL AT BEDTIME PRN ALLERGIES Allergen Reactions Aspirin Bentyl [Dicyclomine* Hives Mri Dye [Gadolinium* Shortness of Breath Tape [Adhesive Tape* Rash rash REVIEW OF SYSTEMS: ROS checked in details x 10 systems and is negative except as noted in the HPI. All qs answered. Objective PHYSICAL EXAM: Temp (24hrs), Av.7 ?C (98.1 ?F), Min:36.4 ?C (97.5 ?F), Max:37.1 ?C (98.7 ?F) BP 147/74 Pulse 101 Temp 36.4 ?C (97.5 ?F) (Oral) Resp 19 Ht 152.4 cm (5') Wt 88 kg (194 lb 0.1 oz) SpO2 96% BMI 37.89 kg/m? GENERAL APPEARANCE: Alert, NAD, non toxic appearance, Obese SKIN: stasis dermatitis BLE NECK: Supple BACK: no CVAT. LUNGS: Clear HEART: Regular rate/rhythm, normal heart sounds, and no murmurs. ABDOMEN: Soft, non tender, no palpable masses, normal bowel sounds. EXTREMITIES: Lymphedema / L > R - Left leg - sipping with greenish discharge. Cellulitis NEURO: Awake, alert , no focal deficit, oriented x 3 PIV: c/d/i DATA: Diagnostic (more content not included)... [facility] CONSULT PROGon 03-30-2023 CONSULT PROG HNO ID: [id number] Author: Gayle Whitley RPh Service: Pharmacy Author Type: Pharmacist Type: Consult Progress Note Filed: 03/30/2023 5:01 PM Note Text: PHARMACY PROGRESS NOTE Patient Name: Chema Koroma Admission Date: 03/29/2023 Date of Consult: 03/30/2023 Time of Consult: 5:00 PM In accordance with the inpatient pharmacy consult agreement the following medication changes have been made: Renal dosing Discontinue cefazolin 1 gram every 12 hours, change to cefazolin 1 gram every 8 hours per renal dosing guidelines. Creatinine (mg/dL) Date Value 03/30/2023 1.14 (H) CrCl: 36.2 mL/min Pharmacy will continue to monitor patient for continued eligibility of these medication changes. Please call with any questions or concerns. SIGNATURE: Gayle Whitley RPh DATE/TIME: 03/30/2023 5:00 PM [facility] CONSULT PROG HNO ID: [id number] Author: Gayle Whitley RPh Service: Pharmacy Author Type: Pharmacist Type: Consult Progress Note Filed: 03/30/2023 4:54 PM Note Text: PHARMACY VANCOMYCIN DOSING NOTE Patient Name: Chema Koroma Admission Date: 03/29/2023 Date of Consult: 03/30/2023 Time of Consult: 4:54 PM 1. Vancomycin therapy has been discontinued. Vancomycin level(s) have been discontinued: Yes. Pharmacy vancomycin dosing service will sign off. Thank you for allowing us to participate in this patient's care. Please contact pharmacy if there are questions. Gayle Whitley [facility] Normal [facility] Comprehensive metabolic 2000 panelon 03-30-2023 Albumin [Mass/Vol] 2.2 g/dL Low 3.9-4.9 [facility] Comment on above: Order Comment: Jean weems Type: BLOOD SPECIMEN Ordering Facility: [facility] Address: [address] [place] [address] Performed By: #### L [id number] #### [facility] CLIA [id number] [address] ALP [Catalytic activity/Vol] 64 U/L Normal 34-123 [facility] Comment on above: Order Comment: Jean weems Type: BLOOD SPECIMEN Ordering Facility: [facility] Address: [address] [place] [address] Performed By: #### L [id number] #### [facility] CLIA [id number] [address] ALT [Catalytic activity/Vol] 7 U/L Normal 7-38 [facility] Comment on above: Order Comment: Jean weems Type: BLOOD SPECIMEN Ordering Facility: [facility] Address: [address] [address] Performed By: #### L [id number] #### [facility] CLIA [id number] [address] Anion gap [Moles/Vol] 8 mmol/L Low 9-18 [facility] Comment on above: Order Comment: Jean weems Type: BLOOD SPECIMEN Ordering Facility: [facility] Address: [address] [address] Performed By: #### L [id number], 1987-12 #### [facility] CLIA [id number] [address] [place] AST [Catalytic activity/Vol] 12 U/L Low 13-35 [facility] Comment on above: Order Comment: Speci men Type: BLOOD SPECIMEN Ordering Facility: [facility] Address: [address] Performed By: #### L [id number] #### [facility] CLIA [id number] [address] [place] [address] [place] Bilirubin [Mass/Vol] 0.3 mg/dL Normal 0.2-1.3 [facility] Comment on above: Order Comment: Speci men Type: BLOOD SPECIMEN Ordering Facility: [facility] Address: [address] [place] [address] Performed By: #### L [id number] #### [facility] CLIA [id number] [address] STATES OF [facility] Calcium [Mass/Vol] 8.2 mg/dL Low 8.5-10.2 [facility] Comment on above: Order Comment: Speci men Type: BLOOD SPECIMEN Ordering Facility: [facility] Address: [address] [place], [place] [address] Performed By: #### L [id number] #### [facility] CLIA [id number] [address] [place] Chloride [Moles/Vol] 103 mmol/L Normal 97-105 [facility] Comment on above: Order Comment: Speci men Type: BLOOD SPECIMEN Ordering Facility: [facility] Address: [address] Performed By: #### L [id number] #### [facility] CLIA [id number] [address] [place] CO2 [Moles/Vol] 30 mmol/L Normal 22-30 [facility] Comment on above: Order Comment: Speci men Type: BLOOD SPECIMEN Ordering Facility: [facility] Address: [address] [place], [place] [id number] Performed By: #### L [id number] #### [facility] CLIA [id number] [address] [place] [address] [place] Creatinine [Mass/Vol] 1.14 mg/dL High 0.58-0.96 [facility] Comment on above: Order Comment: Jean weems Type: BLOOD SPECIMEN Ordering Facility: [facility] Address: [address] [address] Performed By: #### L [id number] #### [facility] CLIA [id number] [address] [place] ESTIMATED GLOMERULAR FILTRATION RATE 48 mL/min/1.73m??? Low >=60 [facility] Comment on above: Order Comment: Jean weems Type: BLOOD SPECIMEN Ordering Facility: [facility] Address: [address] [place] [address] Result Comment: Harika mated Glomerular Filtration Rate (eGFR) is calculated using the 2020 CKD-EPI creatinine equation. This equation utilizes serum creatinine, sex, and age as parameters. The creatinine assay has traceable calibration to isotope dilution-mass spectrometry. Refer to KDIGO guidelines for clinical interpretation. In patients with unstable renal function, e.g. those with acute kidney injury, the eGFR may not accurately reflect actual GFR. Performed By: #### L [id number] #### [facility] CLIA [id number] [address] [place] Glucose [Mass/Vol] 87 mg/dL Normal 74-99 [facility] Comment on above: Order Comment: Jean weems Type: BLOOD SPECIMEN Ordering Facility: [facility] Address: [address] [place] [address] Result Comment: The [place] Diabetes Association (ADA) provides guidance for cutoff values for fasting glucose and random glucose. The ADA defines fasting as no caloric intake for at least 8 hours. Fasting plasma glucose results between 100 to 125 mg/dL indicate increased risk for diabetes (prediabetes). Fasting plasma glucose results greater than or equal to 126 mg/dL meet the criteria for diagnosis of diabetes. In the absence of unequivocal hyperglycemia, results should be confirmed by repeat testing. In a patient with classic symptoms of hyperglycemia or hyperglycemic crisis, random plasma glucose results greater than or equal to 200 mg/dL meet the criteria for diagnosis of diabetes. Reference: Standards of Medical Care in Diabetes 2016, [place] Diabetes Association. Diabetes Care. 2016.39(Suppl 1). Performed By: #### L [id number], 1987-12 #### [facility] CLIA [id number] [address] [place] [address] [place] Potassium [Moles/Vol] 3.3 mmol/L Low 3.7-5.1 [facility] Comment on above: Order Comment: Jean weems Type: BLOOD SPECIMEN Ordering Facility: [facility] Address: [address] [address] Performed By: #### L [id number] #### [facility] CLIA [id number] [address] [place] [facility] Protein [Mass/Vol] 5.5 g/dL Low 6.3-8.0 [facility] Comment on above: Order Comment: Jean weems Type: BLOOD SPECIMEN Ordering Facility: [facility] Address: [address] [address] Performed By: #### L [id number] #### [facility] CLIA [id number] [address] Sodium [Moles/Vol] 141 mmol/L Normal 136-144 [facility] Comment on above: Order Comment: Jean weems Type: BLOOD SPECIMEN Ordering Facility: [facility] Address: [address] [address] Performed By: #### L [id number] #### [facility] CLIA [id number] [address] [place] Urea nitrogen [Mass/Vol] 14 mg/dL Normal 7-21 [facility] Comment on above: Order Comment: Jean weems Type: BLOOD SPECIMEN Ordering Facility: [facility] Address: [address] [address] Performed By: #### L [id number] #### [facility] CLIA [id number] [address] [place] [address] [place] Creatinine Unsp time (U) [Ma ss/Vol]on 03-30-2023 Creatinine (U) [Mass/Vol] 89.0 mg/dL Normal 20.0-300.0 [facility] Comment on above: Order Comment: Specveronica weems Type: BLOOD SPECIMEN Ordering Facility: [facility] Address: [address] [place], [place] [id number] Performed By: #### 4 091-5 #### [facility] CLIA [id number] [address] [place] [id number] [facility] ESR Westergren method (Bld) [Velocity]on 03-30-2023 ESR (Bld) [Velocity] 98 mm/h High 0-20 [facility] Comment on above: Order Comment: Specveronica ewems Type: BLOOD SPECIMENOrdering Facility: [facility] Address: [address] [place], [place] [id number] Performed By: #### 4 537-7 ####[facility] [id number] [facility] [place] [id number] [facility] HISTORY PHYSICALon HISTORY PHYSICAL HNO ID: [id number] Author: Tu Greer DO Service: Hospital Medicine Author Type: Physician Type: HANDP Filed: 03/30/2023 3:15 AM Note Text: DEPARTMENT OF HOSPITAL MEDICINE HISTORY AND PHYSICAL EXAM SERVICE DATE: 03/30/2023 SERVICE TIME: 2:45 AM Primary Care Physician: Jason Benitez MD NIGHT COVERAGE: Please [place] [facility] [place] [phone] for any issues or concerns Subjective CHIEF COMPLAINT: Edema (Bilateral lower leg swelling, has lymphedema, now getting red above bandages, concerned for infection, hasn't been feeling well the last couple of days ) HPI: This is a 82 year old female with PMH of chronic lymphedema, HTN, who presents with Worsening LLE swelling and concern for infection over LLE. Pt noes over the past few weeks her left leg has been getting more painful and red. She was seen at [facility] and treated with antibiotics and discharged on abx. She was then given another course by her PCP but only took about 4 days of abx prior to coming into ed. In the ED; -Afebrile heart rate 97 115 respiratory rate 18-25 blood pressure 127/59 to 145/60, 95% on room air. Hemoglobin 9.3, CMP: creatinine 1.37, hypoalbuminemia with 2.6, high-sensitivity troponin was 30 and 29 and 27. Blood cultures taken then in progress CXR: RESULT: Lines, tubes, and devices: None. Lungs and pleura: The right lung and left mid to lower lung zones appear clear. Patient's arm and hands overlying part of the left hemithorax with nonvisualization of the left upper lung. No large pleural effusions or pneumothorax. Cardiomediastinal silhouette: Stable cardiomediastinal silhouette. Tib/fib: IMPRESSION: Diffuse left leg soft tissue prominence/swelling and nonspecific soft tissue calcifications. No radiographic evidence of acute bony destructive Bone mets, process. { Labs Reviewed COMP METABOLIC PANEL - Abnormal; Notable for the following components: Result Value Albumin 2.6 (*) Glucose 133 (*) Creatinine 1.37 (*) Potassium 3.2 (*) Estimated Glomerular Filtration Rate 38 (*) All other components within normal limits CBC + DIFF - Abnormal; Notable for the following components: RBC 3.33 (*) Hemoglobin 9.3 (*) Hematocrit 29.7 (*) Abs Lymph 0.82 (*) All other components within normal limits CK CREATINE KINASE - Abnormal; Notable for the following components: CK 40 (*) All other components within normal limits HIGH SENSITIVITY TROPONIN T (INITIAL) - Abnormal; Notable for the following components: ALEENA High Sensitivity 30 (*) All other components within normal limits NT PRO BNP - Abnormal; Notable for the following components: NT Pro BNP 3,874 (*) All other components within normal limits VENOUS BLOOD GASES - Abnormal; Notable for the following components: pO2, Venous <31 (*) Base Excess, Venous 8 (*) Bicarbonate, Venous 33 (*) Oxyhemoglobin, Venous 37 (*) Potassium, Whole Blood 3.1 (*) All other components within normal limits HIGH SENSITIVITY TROPONIN T (SECOND) - Abnormal; Notable for the following components: ALEENA High Sensitivity 29 (*) All other components within normal limits HIGH SENSITIVITY TROPONIN T (THIRD) 3 HRS AFTER INITIAL - Abnormal; Notable for the following components: ALEENA High Sensitivity 27 (*) All other components within normal limits VANCOMYCIN - Normal BLOOD CULTURE - Normal BLOOD CULTURE - Normal CBC COMP METABOLIC PANEL MAGNESIUM BLD BLOOD CULTURE BLOOD CULTURE PAST MEDICAL HISTORY Diagnosis Date Abnormal Pap smear of cervix 08/26/2009 atypical glandular cells Acute, but ill-defined, cerebrovascular disease Diverticulosis of colon (without mention of hemorrhage) Endometrial adenocarcinoma (HCC) 11/24/2010 Esophageal reflux Gastroesophageal reflux Heart attack (HCC) 2021 HTN (hypertension) Malignant neoplasm of breast (female), unspecified site 08/26/1991 Breast cancer Mixed hyperlipidemia Hyperlipidemia Osteoarthrosis, unspecified whether generalized or localized, other specified sites Osteoarthritis KNEE Other primary cardiomyopathies Cardiomyopathy PMH - PAST MEDICAL HISTORY OF idiopathic Thrombocytic purpura 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 Unspecified visual loss Blindness LEFT EYE Uterine fibroid PAST SURGICAL HISTORY Procedure Laterality Date BREAST PROSTHESIS, NOS COLONOSCOPY 05/24/2003 COLONOSCOPY FLX DX W/COLLJ SPEC WHEN PFRMD 07/09/2012 Colonoscopy DILATION AND CURETTAGE DXAND/THER NONOBSTETRIC 1996 EGD 12/06/2004 ESOPHAGOGASTRODUODENOSCOPY TRANSORAL DIAGNOSTIC 07/09/2012 barretts HYSTERECTOMY 01/24/2011 Hand-assisted laparoscopic hysterectomy, bilateral - for grade 1/2 endometrial cancer HYSTEROSCOPY BX ENDOMETRIUMAND/POLYPC W/WO DANDC 2002 HYSTEROSCOPY BX ENDOMETRIUMAND/POLYPC W/WO DANDC 12/12/2010 LEFT HEART CATH,PERCUTANEOUS 2021 no stents MASTECTOMY,SIMPLE 1991 FAMILY HISTORY Problem Relation Age of O (more content not included)... Normal [facility] Magnesium SerPl-mCncon 03-30 Magnesium [Mass/Vol] 2.0 mg/dL Normal 1.7-2.3 [facility] Comment on above: Order Comment: Speci men Type: BLOOD SPECIMEN Ordering Facility: [facility] Address: [address] [address] Performed By: #### L [id number], 1987-12 #### [facility] CLIA [id number] [address] [place] [address] [place] UREA NITROGEN RND URon 03-30 Urea nitrogen [Mass/Vol] 476 mg/dL Normal 140-1500 [facility] Comment on above: Order Comment: Speci men Type: BLOOD SPECIMEN Ordering Facility: [facility] Address: [address] [place] [address] Performed By: #### 4 091-5 #### [facility] CLIA [id number] [address] [place] [address] [place] US DVT LOWER LTon 03-30-2023 US DVT LOWER LT * * *Final Report* * * DATE OF EXAM: Mar 30 2023 9:09AM MELISSA 1006 - US DVT LOWER LT / PROCEDURE REASON: Leg deep vein thrombosis (DVT), new symptoms * * * * Physician Interpretation * * * * EXAMINATION: LEFT LOWER EXTREMITY DEEP VENOUS ULTRASOUND WITH DOPPLER IMAGING CLINICAL HISTORY: Left leg redness and swelling TECHNIQUE: Grayscale with compression maneuvers, color Doppler and spectral Doppler imaging of the left proximal deep veins was performed. Grayscale with compression maneuvers of the peroneal and posterior tibial veins was performed. The left great and small saphenous veins were evaluated at their insertion to the deep system. The contralateral common femoral vein was imaged for comparison. Images were obtained and stored in a permanent archive. MQ: [id number] COMPARISON: None RESULT: LEFT LOWER EXTREMITY PROXIMAL DEEP VEINS Distal External Iliac, Common Femoral and proximal Profunda Veins: Compression: Normal Doppler: Normal, spontaneous respirophasic flow. Normal response to augmentation. Femoral vein: Compression: Normal Doppler: Normal, spontaneous flow. Normal response to augmentation. Popliteal vein: Compression: Normal Doppler: Normal, spontaneous flow. Normal response to augmentation. CALF DEEP VEINS Peroneal veins: Normal compression. Posterior tibial veins: Normal compression. Gastrocnemius and Soleal veins: Not imaged. SUPERFICIAL VEINS Great saphenous: Patent and compressible at insertion into common femoral vein; not otherwise assessed. Small Saphenous: Patent and compressible in the proximal calf, not otherwise assessed. RIGHT LOWER EXTREMITY (FOR COMPARISON) Common Femoral Vein: Compression: Normal Doppler: Normal, spontaneous respirophasic flow. Normal response to augmentation. IMPRESSION: Negative study for proximal DVT in the left lower extremity. Negative study for calf DVT in the left lower extremity. Calf veins are suboptimally visualized due to overlying edema. Negative study for superficial thrombophlebitis in the imaged segments of the left lower extremity. Brush Sander: ANGEL Transcribe Date/Time: Mar 30 2023 9:32A Dictated by : VICKY DALE MD This examination was interpreted and the report reviewed and electronically signed by: VICKY DALE MD on Mar 30 2023 9:34AM EST [id number] Normal [facility] Vancomycin [place] SerPl-mCncon 03-30-2023 Vancomycin random [Mass/Vol] 19.4 ug/mL Normal 10.0-20.0 [facility] Comment on above: Order Comment: Speci men Type: BLOOD SPECIMEN Ordering Facility: [facility] Address: [address] [place], [place] [address] Result Comment: Refe rence ranges and high/low indicator flags are provided as general guidelines only. The treating physician must determine appropriate target levels/dosing based on the specific clinical situation. Performed By: #### 4 091-5 #### [facility] CLIA [id number] [address] [place] [address] [facility] HEALTHon 03-29-2023 [facility] HNO ID: [id number] Author: Amy Wall RT(R) Service: Radiology Author Type: Hand Spinner Type: Allied Health Filed: 03/29/2023 6:56 PM Note Text: Radiology Service Progress Note PATIENT NAME: Chema Koroma DATE OF SERVICE: March 29, 2023 TIME: 6:56 PM PATIENT IDENTITY VERIFICATION COMPLETED USING TWO (2) IDENTIFIERS: Name and Date of confirmed by patient verbally and Name and Date of confirmed by identification band. FALL SCREENING: Has the patient had 2 falls in the last year or 1 fall with injury or currently using an Ambulatory Assistive Device (Walker, Cane, Wheelchair, Crutches, etc.)? Emergency Room Patient: Screened in ED PATIENT GENDER DATA: Female. status: : No status: NO. PATIENT RELEVANT IMPLANT DATA REVIEWED: Not Applicable RADIOLOGY DEPARTMENT: General X-ray: Exam(s) Completed: Chest X-Ray Lower Extremity X-Ray(s): Tibia Fibula, Left PERIPHERAL IV DATA: Not applicable SIGNED BY: RT Ruth(R) March 29, 2023 6:[address] [facility] HNO ID: [id number] Author: Amy Wall RT(R) Service: Radiology Author Type: Hand Spinner Type: Allied Health Filed: 03/29/2023 6:02 PM Note Text: @1759 this tech spoke to nurse about chest x ray images, a chest 2 v vs a 1 v and which would the doctor prefer, nurse will talk to doctor and get back to x ray on this matter. Normal [facility] Bacteria Bld Culton 03-29-20 Bacteria identified Cx Nom (Bld) CULTURE, BLOOD: No growth 6 days Normal [facility] Comment on above: Performed By: #### 6 00-7 ####[facility] [id number] [address] [place] Bacteria identified Cx Nom (Bld) CULTURE, BLOOD: No growth 5 days Normal [facility] Comment on above: Performed By: #### 6 -7 ####[facility] [id number] [place] [address] [place] CBC W Auto Differential pane l (Bld)on 03-29-2023 Basophils (Bld) [#/Vol] 0.03 10*3/uL Normal <0.11 [facility] Comment on above: Order Comment: Speci men Type: BLOOD SPECIMEN Ordering Facility: [facility] Address: [address] [address] Performed By: #### L [id number], 1987-12 #### [facility] CLIA [id number] [address] [place] Basophils/100 WBC (Bld) 0.3 % Normal [facility] Comment on above: Order Comment: Speci men Type: BLOOD SPECIMEN Ordering Facility: [facility] Address: [address] Performed By: #### L [id number] #### [facility] CLIA [id number] [address] STATES [facility] Differential cell count method Nom (Bld) Auto Normal [facility] Comment on above: Order Comment: Speci men Type: BLOOD SPECIMEN Ordering Facility: [facility] Address: [address] Performed By: #### L [id number] #### [facility] CLIA [id number] [address] [place] [address] [place] Eosinophils (Bld) [#/Vol] 0.08 10*3/uL Normal <0.46 [facility] Comment on above: Order Comment: Speci men Type: BLOOD SPECIMEN Ordering Facility: [facility] Address: [address] [address] Performed By: #### L [id number] #### [facility] CLIA [id number] [address] [place] [address] [place] Eosinophils/100 WBC (Bld) 0.9 % Normal [facility] Comment on above: Order Comment: Speci men Type: BLOOD SPECIMEN Ordering Facility: [facility] Address: [address] [place] [address] Performed By: #### L [id number] #### [facility] CLIA [id number] [address] [place] Erythrocyte distribution width (RBC) [Ratio] 14.0 % Normal 11.5-15.0 [facility] Comment on above: Order Comment: Speci men Type: BLOOD SPECIMEN Ordering Facility: [facility] Address: [address] [address] Performed By: #### L [id number] #### [facility] CLIA [id number] [address] [place] Hematocrit (Bld) [Volume fraction] 29.7 % Low 36.0-46.0 [facility] Comment on above: Order Comment: Speci men Type: BLOOD SPECIMEN Ordering Facility: [facility] Address: [address] [address] Performed By: #### L [id number] #### [facility] CLIA [id number] [address] [place] Hemoglobin (Bld) [Mass/Vol] 9.3 g/dL Low 11.5-15.5 [facility] Comment on above: Order Comment: Speci men Type: BLOOD SPECIMEN Ordering Facility: [facility] Address: [address] [address] Performed By: #### L [id number] #### [facility] CLIA [id number] [address] Immature granulocytes (Bld) [#/Vol] 0.05 10*3/uL Normal <0.10 [facility] Comment on above: Order Comment: Speci men Type: BLOOD SPECIMEN Ordering Facility: [facility] Address: [address] [place] [address] Performed By: #### L [id number] #### [facility] CLIA [id number] [address] Immature granulocytes/100 WBC (Bld) 0.6 % Normal [facility] Comment on above: Order Comment: Speci men Type: BLOOD SPECIMEN Ordering Facility: [facility] Address: [address] [place] [address] Performed By: #### L [id number] #### [facility] CLIA [id number] [address] [place] [facility] Lymphocytes (Bld) [#/Vol] 0.82 10*3/uL Low 1.00-4.00 [facility] Comment on above: Order Comment: Speci men Type: BLOOD SPECIMEN Ordering Facility: [facility] Address: [address] [place] [address] Performed By: #### L [id number] #### [facility] CLIA [id number] [address] Lymphocytes/100 WBC (Bld) 9.0 % Normal [facility] Comment on above: Order Comment: Speci men Type: BLOOD SPECIMEN Ordering Facility: [facility] Address: [address] [place] [address] Performed By: #### L [id number] #### [facility] CLIA [id number] [address] MCH (RBC) [Entitic mass] 27.9 pg Normal 26.0-34.0 [facility] Comment on above: Order Comment: Speci men Type: BLOOD SPECIMEN Ordering Facility: [facility] Address: [address] Performed By: #### L [id number] #### [facility] CLIA [id number] [address] [place] [facility] MCHC (RBC) [Mass/Vol] 31.3 g/dL Normal 30.5-36.0 [facility] Comment on above: Order Comment: Speci men Type: BLOOD SPECIMEN Ordering Facility: [facility] Address: [address] [address] Performed By: #### L [id number] #### [facility] CLIA [id number] [address] [place] [facility] MCV (RBC) [Entitic vol] 89.2 fL Normal 80.0-100.0 [facility] Comment on above: Order Comment: Speci men Type: BLOOD SPECIMEN Ordering Facility: [facility] Address: [address] [address] Performed By: #### L [id number] #### [facility] CLIA [id number] [address] [place] Monocytes (Bld) [#/Vol] 0.75 10*3/uL Normal <0.87 [facility] Comment on above: Order Comment: Speci men Type: BLOOD SPECIMEN Ordering Facility: [facility] Address: [address] [address] Performed By: #### L [id number] #### [facility] CLIA [id number] [address] Monocytes/100 WBC (Bld) 8.3 % Normal [facility] Comment on above: Order Comment: Speci men Type: BLOOD SPECIMEN Ordering Facility: [facility] Address: [address] Performed By: #### L [id number] #### [facility] CLIA [id number] [address] [place] Neutrophils (Bld) [#/Vol] 7.34 10*3/uL Normal 1.45-7.50 [facility] Comment on above: Order Comment: Speci men Type: BLOOD SPECIMEN Ordering Facility: [facility] Address: [address] [address] Performed By: #### L [id number], 1987-12 #### [facility] CLIA [id number] [address] [place] Neutrophils/100 WBC (Bld) 80.9 % Normal [facility] Comment on above: Order Comment: Speci men Type: BLOOD SPECIMEN Ordering Facility: [facility] Address: [address] [address] Performed By: #### L [id number] #### [facility] CLIA [id number] [address] [place] [address] [place] Nucleated RBC (Bld) [#/Vol] 10*3/uL Normal <0.01 [facility] Comment on above: Order Comment: Speci men Type: BLOOD SPECIMEN Ordering Facility: [facility] Address: [address] [place] [address] Performed By: #### L [id number] #### [facility] CLIA [id number] [address] [place] Nucleated RBC/100 WBC (Bld) [Ratio] 0.0 /100 WBC Normal [facility] Comment on above: Order Comment: Speci men Type: BLOOD SPECIMEN Ordering Facility: [facility] Address: [address] [place] [address] Performed By: #### L [id number] #### [facility] CLIA [id number] [address] [place] [address] [facility] [place] Platelet mean volume (Bld) [Entitic vol] 10.6 fL Normal 9.0-12.7 [facility] Comment on above: Order Comment: Speci men Type: BLOOD SPECIMEN Ordering Facility: [facility] Address: [address] [place] [address] Performed By: #### L [id number] #### [facility] CLIA [id number] [address] [place] [address] [facility] [place] Platelets (Bld) [#/Vol] 396 10*3/uL Normal 150-400 [facility] Comment on above: Order Comment: Speci men Type: BLOOD SPECIMEN Ordering Facility: [facility] Address: [address] [place] [address] Performed By: #### L [id number], 1987-12 #### [facility] CLIA [id number] [address] OF [facility] RBC (Bld) [#/Vol] 3.33 10*6/uL Low 3.90-5.20 [facility] Comment on above: Order Comment: Speci men Type: BLOOD SPECIMEN Ordering Facility: [facility] Address: [address] [place] [address] Performed By: #### L [id number], 1987-12 #### [facility] CLIA [id number] [address] [place] [address] WBC (Bld) [#/Vol] 9.07 10*3/uL Normal 3.70-11.00 [facility] Comment on above: Order Comment: Speci men Type: BLOOD SPECIMEN Ordering Facility: [facility] Address: [address] [place] [address] Performed By: #### L [id number], 1987-12 #### [facility] CLIA [id number] [address] [place] [address] CK SerPl-cCncon 03-29-2023 CK [Catalytic activity/Vol] 40 U/L Low 42-196 [facility] Comment on above: Order Comment: Speci men Type: BLOOD SPECIMENOrdering Facility: [facility] Address: [address] [place] [address] Performed By: #### 3 3762-6, 2157-6, [id number], 94470-3 ####[facility] [id number] [place] [address] CONSULT PROGon 03-29-2023 CONSULT PROG HNO ID: [id number] Author: Dino Xavier RPh Service: Pharmacy Author Type: Pharmacist Type: Consult Progress Note Filed: 03/29/2023 7:51 PM Note Text: PHARMACY VANCOMYCIN DOSING NOTE Patient Name: Chema Koroma Admission Date: 03/29/2023 Date of Consult: 03/29/2023 Time of Consult: 7:49 PM Indication: Source unknown; empiric Goal Range: 15-20 mcg/mL RECOMMENDATIONS/PLAN: Pharmacy consulted for vancomycin dosing for Chema Koroma, a 82 year old female. 1. Patient is currently ordered Vancomycin 1.25 g IV q12h. Today is day 1 of therapy. 2. No vancomycin level has been drawn for this dosing regimen. 3. Serum creatinine and/or urine output have changed markedly in the previous days, therefore will discontinue vancomycin at this time and dose by level. 4. The next vancomycin level has been ordered for 03/30/23 (Completed) We will follow patient renal function, vancomycin levels and doses with you during the course of therapy. Additional recommendations will appear in follow up notes. If you have any questions, please contact pharmacy at [phone]. Age: [age] year old Allergies: ALLERGIES Allergen Reactions Aspirin Bentyl [Dicyclomine* Hives Other [Other] pt states had reaction to IV med given for MRI 12/04/2006 Tape [Adhesive Tape* Rash rash Last 3 Encounter Wt Readings: Date: Wt: 03/29/2023 86.2 kg (190 lb) 02/02/2020 88.7 kg (195 lb 9.6 oz) 09/24/2019 86.1 kg (189 lb 12.8 oz) Last 1 Encounter Ht Readings: Date: Ht: 02/02/2020 151.1 cm (4' 11.5) CrCl: 41 mL/min Temp (24hrs), Av.1 ?C (98.7 ?F), Min:37.1 ?C (98.7 ?F), Max:37.1 ?C (98.7 ?F) - Current Temp: 37.1 ?C (98.7 ?F) Labs BUN (mg/dL) Date Value 03/29/2023 16 07/11/2017 21 (H) 07/08/2017 25 (H) Creatinine (mg/dL) Date Value 03/29/2023 1.37 (H) 07/11/2017 0.50 (L) 07/08/2017 0.59 WBC Date Value 03/29/2023 9.07 k/uL 07/11/2017 9.32 thou/cmm 07/11/2017 10.04 thou/cmm Vancomycin Levels: No results found for: JE ThomasKenzie Duc, [facility] Normal [facility] CRP SerPl-ncon 03-29-2023 CRP [Mass/Vol] 9.0 mg/dL High <0.9 [facility] Comment on above: Order Comment: Speci men Type: BLOOD SPECIMEN Ordering Facility: [facility] Address: [address] [address] Performed By: #### L [id number], 1987-12 #### [facility] CLIA [id number] [address] OF [facility] Comprehensive metabolic 2000 panelon 03-29-2023 Albumin [Mass/Vol] 2.6 g/dL Low 3.9-4.9 [facility] Comment on above: Order Comment: Speci men Type: BLOOD SPECIMENOrdering Facility: [facility] Address: [address] [address] Performed By: #### 3 3762-6, 2156-6, [id number], 35882-7 ####[facility] [id number] [address] STATES OF [facility] ALP [Catalytic activity/Vol] 82 U/L Normal 34-123 [facility] Comment on above: Order Comment: Speci men Type: BLOOD SPECIMENOrdering Facility: [facility] Address: [address] [address] Performed By: #### 3 3762-6, 6, [id number], 87705-5 ####[facility] [id number] [place] [id number] [facility] ALT [Catalytic activity/Vol] 9 U/L Normal 7-38 [facility] Comment on above: Order Comment: Speci men Type: BLOOD SPECIMENOrdering Facility: [facility] Address: [address] [address] Performed By: #### 3 3762-6, 215-6, [id number], 43619-9 ####[facility] [id number] [place] [address] [place] Anion gap [Moles/Vol] 10 mmol/L Normal 9-18 [facility] Comment on above: Order Comment: Speci men Type: BLOOD SPECIMENOrdering Facility: [facility] Address: [address] [place] [address] Performed By: #### 3 3762-6, 6, [id number], 60988-0 ####[facility] [id number] [place] [address] [place] AST [Catalytic activity/Vol] 17 U/L Normal 13-35 [facility] Comment on above: Order Comment: Speci men Type: BLOOD SPECIMENOrdering Facility: [facility] Address: [address] [place] [address] Performed By: #### 3 3762-6, 2157-01, [id number], 57185-6 ####[facility] [id number] [place] [address] [place] Bilirubin [Mass/Vol] 0.3 mg/dL Normal 0.2-1.3 [facility] Comment on above: Order Comment: Speci men Type: BLOOD SPECIMENOrdering Facility: [facility] Address: [address] [place] [address] Performed By: #### 3 3762-6, 6, [id number], 35337-5 ####[facility] [id number] [place] [address] [place] Calcium [Mass/Vol] 8.8 mg/dL Normal 8.5-10.2 [facility] Comment on above: Order Comment: Speci men Type: BLOOD SPECIMENOrdering Facility: [facility] Address: [address] [place] [address] Performed By: #### 3 3762-6, 2157-01, [id number], 56251-2 ####[facility] [id number] [place] [address] [place] Chloride [Moles/Vol] 102 mmol/L Normal 97-105 [facility] Comment on above: Order Comment: Jean men Type: BLOOD SPECIMENOrdering Facility: [facility] Address: [address] [place] [address] Performed By: #### 3 3762-6, 2157-01, [id number], ####[facility] [id number] [place] [address] [place] CO2 [Moles/Vol] 30 mmol/L Normal 22-30 [facility] Comment on above: Order Comment: Speci men Type: BLOOD SPECIMENOrdering Facility: [facility] Address: [address] [place] [address] Performed By: #### 3 3762-6, 2157-01, [id number], ####[facility] [id number] [address] STATES OF [facility] Creatinine [Mass/Vol] 1.37 mg/dL High 0.58-0.96 [facility] Comment on above: Order Comment: Specveronica men Type: BLOOD SPECIMENOrdering Facility: [facility] Address: [address] [place] [address] Performed By: #### 3 3762-6, 2157-01, [id number], ####[facility] [id number] [address] ESTIMATED GLOMERULAR FILTRATION RATE 38 mL/min/1.73m??? Low >=60 [facility] Comment on above: Order Comment: Jean dank Type: BLOOD SPECIMENOrdering Facility: [facility] Address: [address] [place] [address] Result Comment: Harika mated Glomerular Filtration Rate (eGFR) is calculated using the 2020 CKD-EPI creatinine equation. This equation utilizes serum creatinine, sex, and age as parameters. The creatinine assay has traceable calibration to isotope dilution-mass spectrometry. Refer to KDIGO guidelines for clinical interpretation. In patients with unstable renal function, e.g. those with acute kidney injury, the eGFR may not accurately reflect actual GFR. Performed By: #### 3 3762-6, 6, [id number], 51463-2 ####[facility] [id number] [place] [address] [place] Glucose [Mass/Vol] 133 mg/dL High 74-99 [facility] Comment on above: Order Comment: Jean weems Type: BLOOD SPECIMENOrdering Facility: [facility] Address: [address] [place], [place] [id number] Result Comment: The [place] [employer] (ADA) provides guidance for cutoff values for fasting glucose and random glucose. The ADA defines fasting as no caloric intake for at least 8 hours. Fasting plasma glucose results between 100 to 125 mg/dL indicate increased risk for diabetes (prediabetes). Fasting plasma glucose results greater than or equal to 126 mg/dL meet the criteria for diagnosis of diabetes. In the absence of unequivocal hyperglycemia, results should be confirmed by repeat testing. In a patient with classic symptoms of hyperglycemia or hyperglycemic crisis, random plasma glucose results greater than or equal to 200 mg/dL meet the criteria for diagnosis of diabetes. Reference: Standards of Medical Care in Diabetes 2016, [place] [employer]. Diabetes Care. 2016.39(Suppl 1). Performed By: #### 3 3762-6, 6, [id number], 18668-7 ####[facility] [id number] [place] [address] [place] Potassium [Moles/Vol] 3.2 mmol/L Low 3.7-5.1 [facility] Comment on above: Order Comment: Jean weems Type: BLOOD SPECIMENOrdering Facility: [facility] Address: [address] [place], [place] [id number] Performed By: #### 3 3762-6, 2157-01, [id number], 47297-5 ####[facility] [id number] [place] [id number] [place] Protein [Mass/Vol] 6.4 g/dL Normal 6.3-8.0 [facility] Comment on above: Order Comment: Jean weems Type: BLOOD SPECIMENOrdering Facility: [facility] Address: [address] [place], [place] [id number] Performed By: #### 3 3762-6, 6, [id number], 01451-8 ####[facility] [id number] [address] Sodium [Moles/Vol] 142 mmol/L Normal 136-144 [facility] Comment on above: Order Comment: Speci men Type: BLOOD SPECIMENOrdering Facility: [facility] Address: [address] [place] [id number] Performed By: #### 3 3762-6, 2157-6, [id number], 33320-4 ####[facility] [id number] [address] Urea nitrogen [Mass/Vol] 16 mg/dL Normal 7-21 [facility] Comment on above: Order Comment: Speci men Type: BLOOD SPECIMENOrdering Facility: [facility] Address: [address] [place] [id number] Performed By: #### 3 3762-6, 2157-6, [id number], 74344-9 ####[facility] [id number] [address] ECG COMPLETEon 03-29-2023 ECG COMPLETE Ventricular Rate : 1 05 BPM Atrial Rate : 105 BPM P-R Interval : 166 ms QRS Duration : 96 ms Q-T Interval : 354 ms QTC Calculation(Bazett) : 467 ms Calculated P Keller : 81 degrees Calculated R Keller : -11 degrees Calculated T Keller : 29 degrees SINUS TACHYCARDIA MODERATE VOLTAGE CRITERIA FOR LVH, MAY BE NORMAL VARIANT INFERIOR INFARCT , AGE UNDETERMINED ABNORMAL ECG no stemi Confirmed by Pawel HERNADEZ ERIKA ([id number]), book editor KRISTA MONTEIRO (1944) on 03/30/2023 9:06:45 AM NAME : CHEMA KOROMA PID : [id number] : 1940 Gender : Female Race : ORD : [id number] Procedure Date : Mar 29 2023 17:45:18 Edit Date : Mar 30 2023 09:06:52 Diagnosis: SINUS TACHYCARDIA MODERATE VOLTAGE CRITERIA FOR LVH, MAY BE NORMAL VARIANT INFERIOR INFARCT , AGE UNDETERMINED ABNORMAL ECG no stemi Confirmed by Pawel HERNADEZ ERIKA ([id number]), book editor KRISTA MONTEIRO (1944) on 03/30/2023 9:06:45 AM Test Reason : Chest Pain Location : 1 : ER ED Overread By : Pawel HERNADEZ ERIKA Edited By : KRISTA MONTEIRO Referred By : , Acquired by : MOLLY, [facility] ED NOTEon 03-29-2023 ED NOTE HNO ID: [id number] Author: Gold Holguin RN Service: Nursing Author Type: Registered Nurse Type: ED Notes Filed: 03/29/2023 9:22 PM Note Text: Pt is being admitted to 404 in stable condition, report given to Herb WALDEN [facility] ED PROV NOTEon 03-29-2023 ED PROV NOTE HNO ID: [id number] Author: Judith Hernadez MD Service: ? Author Type: Physician Type: ED Provider Notes Filed: 03/29/2023 8:05 PM Note Text: ED Provider Note Patient Name: Chema Koroma : 1940 SERVICE DATE: 03/29/23 History Patient presents with: Edema: Bilateral lower leg swelling, has lymphedema, now getting red above bandages, concerned for infection, hasn't been feeling well the last couple of days Patient with h/o chronic Lymphedema, HTN, GERD, Cardiomyopathy, and h/o CVA who presents with increasing redness, swelling, and pain to her left leg. She is treated weekly for Lymphedema with wraps every Saturday. Her left leg is worse then her right leg in swelling. Two weeks ago, she noticed redness and pain to her left leg. She was seen by [place] [facility] and admitted for cellulitis. She was discharged on Rx cefdinir. Two days ago, her primary had her continue the antibiotic. The redness and pain has gotten progressively worse. Last night she had a low grade fever of 99.9 and she has associated anorexia and nausea. PAST MEDICAL HISTORY Diagnosis Date - Abnormal Pap smear of cervix 08/26/2009 atypical glandular cells - Acute, but ill-defined, cerebrovascular disease - Diverticulosis of colon (without mention of hemorrhage) - Endometrial adenocarcinoma (HCC) 11/24/2010 - Esophageal reflux Gastroesophageal reflux - Heart attack (HCC) 2021 - HTN (hypertension) - Malignant neoplasm of breast (female), unspecified site 08/26/1991 Breast cancer - Mixed hyperlipidemia Hyperlipidemia - Osteoarthrosis, unspecified whether generalized or localized, other specified sites Osteoarthritis KNEE - Other primary cardiomyopathies Cardiomyopathy - PMH - PAST MEDICAL HISTORY OF idiopathic Thrombocytic purpura - 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 - Unspecified visual loss Blindness LEFT EYE - Uterine fibroid PAST SURGICAL HISTORY Procedure Laterality Date - BREAST PROSTHESIS, NOS - COLONOSCOPY 05/24/2003 - COLONOSCOPY FLX DX W/COLLJ SPEC WHEN PFRMD 07/09/2012 Colonoscopy - DILATION AND CURETTAGE DXAND/THER NONOBSTETRIC 1996 - EGD 12/06/2004 - ESOPHAGOGASTRODUODENOSCOPY TRANSORAL DIAGNOSTIC 07/09/2012 barretts - HYSTERECTOMY 01/24/2011 Hand-assisted laparoscopic hysterectomy, bilateral - for grade 1/2 endometrial cancer - HYSTEROSCOPY BX ENDOMETRIUMAND/POLYPC W/WO DANDC 2002 - HYSTEROSCOPY BX ENDOMETRIUMAND/POLYPC W/WO DANDC 12/12/2010 - LEFT HEART CATH,PERCUTANEOUS 2021 no stents - MASTECTOMY,SIMPLE 1991 FAMILY HISTORY Problem Relation Age of Onset - Heart Mother age 93 - Hypertension Mother - Thyroid Mother - Prostate Cancer Father age 71 - Breast Cancer Maternal Aunt 70's - Breast Cancer Other M. Cousin age 45 Social History Tobacco Use - Smoking status: Never - Smokeless tobacco: Never Vaping Use - Vaping Use: Never used Substance and Sexual Activity - Alcohol use: No - Drug use: No - Sexual activity: Not Currently Partners: Male ALLERGIES Allergen Reactions - Aspirin - Bentyl [Dicyclomine* Hives - Other [Other] pt states had reaction to IV med given for MRI 12/04/2006 - Tape [Adhesive Tape* Rash rash Review of Systems Constitutional: Positive for appetite change and fever. Negative for chills. HENT: Negative for congestion, rhinorrhea, sinus pressure, sinus pain, sneezing and sore throat. Eyes: Negative for visual disturbance. Respiratory: Negative for cough and shortness of breath. Cardiovascular: Negative for chest pain, palpitations and leg swelling. Gastrointestinal: Negative for abdominal pain, diarrhea, nausea and vomiting. Genitourinary: Negative for difficulty urinating, dysuria, flank pain and hematuria. Musculoskeletal: Negative for back pain, myalgias and neck stiffness. Skin: Positive for wound. Negative for pallor. Neurological: Negative for dizziness, weakness, light-headedness and headaches. Psychiatric/Behavioral: Negative for confusion. All other systems reviewed and are negative. Physical Exam Vitals [03/29/23 1657] BP Pulse Temp Temp src Resp SpO2 Weight Height 145/60 (!) 106 37.1 ?C (98.7 ?F) Oral 18 98 % 86.2 kg (190 lb) -- Physical Exam Vitals and nursing note reviewed. Constitutional: General: She is not in acute distress. Appearance: Normal appearance. She is well-developed. HENT: Head: Normocephalic and atraumatic. Right Ear: External ear normal. Left Ear: External ear normal. Nose: Nose normal. Mouth/Throat: Mouth: Mucous membranes are moist. Pharynx: Oropharynx is clear. Eyes: Conjunctiva/sclera: Conjunctivae normal. Pupils: Pupils are equal, round, and reactive to light. Cardiovascular: Rate and Rhythm: Normal rate and regular rhythm. Heart sounds: Normal heart sounds. No murmur heard. Pulmonary: Effort: Pulmonary effort is normal. No respiratory distress. Breath sounds: Normal b (more content not included)... Normal [facility] Gas and Carbon monoxide pane l (BldV)on 03-29-2023 Base excess Calc (BldV) [Moles/Vol] 8 mmol/L High 0-2 [facility] Comment on above: Order Comment: Jean weems Type: VENOUS BLOOD SPECIMENOrdering Facility: [facility] Address: [address] [id number] Performed By: #### 2 4344-4 ####[facility] RESPIRATORYCLIA [id number] [facility] [id number] [place] [phone] Carboxyhemoglobin (BldV) [Mass fraction] <1.0 Normal 0.0-2.0 [facility] Comment on above: Order Comment: Kareni dank Type: VENOUS BLOOD SPECIMENOrdering Facility: [facility] Address: [address] [id number] Result Comment: Carb oxyhemoglobin Reference Range for Smokers: 2.0-8.0% Performed By: #### 2 4344-4 ####[facility] RESPIRATORYCLIA [id number] [facility] [id number] [place] [id number] CO2 (BldV) [Partial pressure] 52 mm[Hg] Normal 42-55 [facility] Comment on above: Order Comment: Speci men Type: VENOUS BLOOD SPECIMENOrdering Facility: [facility] Address: [address] [address] Performed By: #### 2 4344-4 ####[facility]ORYVER[facility] [id number] [facility]IRAT[facility] [id number] [address] CO2 adjusted to patient's actual temperature (BldV) [Partial pressure] Normal [facility] Comment on above: Order Comment: Speci men Type: VENOUS BLOOD SPECIMENOrdering Facility: [facility] Address: [address] [address] Performed By: #### 2 4344-4 ####[facility] RESPIRATORYIA [id number] [facility] [id number] [address] HCO3 (Bld) [Moles/Vol] 33 mmol/L High 24-28 [facility] Comment on above: Order Comment: Speci men Type: VENOUS BLOOD SPECIMENOrdering Facility: [facility] Address: [address] [address] Performed By: #### 2 4344-4 ####[facility]ATORYVER[facility] [id number] [facility] [id number] [address] [address] Hemoglobin (Bld) [Mass/Vol] 12.4 g/dL Normal 11.5-15.5 [facility] Comment on above: Order Comment: Speci men Type: VENOUS BLOOD SPECIMENOrdering Facility: [facility] Address: [address] [address] Performed By: #### 2 4344-4 ####[facility]ATORYVER[facility] [id number] [facility]IRAT[facility] [id number] [address] Lactate [Moles/Vol] 1.8 mmol/L Normal 0.5-2.2 [facility] Comment on above: Order Comment: Speci men Type: VENOUS BLOOD SPECIMENOrdering Facility: [facility] Address: [address] [address] Performed By: #### 2 4344-4 ####ZEE RESPIRATORYCLIA [id number] [facility]IR[facility] [id number] [address] Methemoglobin (Bld) [Mass fraction] % Normal 0.0-1.5 [facility] Comment on above: Order Comment: Speci men Type: VENOUS BLOOD SPECIMENOrdering Facility: [facility] Address: [address] Performed By: #### 2 4344-4 ####[facility] RESPIRATORYIA [id number] [facility]IRAT[facility] [id number] [address] O2 THERAPY RA=Room Air Normal [facility] Comment on above: Order Comment: Speci men Type: VENOUS BLOOD SPECIMENOrdering Facility: [facility] Address: [address] [address] Performed By: #### 2 4344-4 ####[facility]ORYVER[facility] [id number] [facility] [id number] [address] Oxygen (BldV) [Partial pressure] mm[Hg] Low 35-45 [facility] Comment on above: Order Comment: Speci men Type: VENOUS BLOOD SPECIMENOrdering Facility: [facility] Address: [address] Performed By: #### 2 4344-4 ####[facility] RESPIRATORYIA [id number] [facility] [id number] [address] [address] Oxygen adjusted to patient's actual temperature (BldV) [Partial pressure] Normal [facility] Comment on above: Order Comment: Speci men Type: VENOUS BLOOD SPECIMENOrdering Facility: [facility] Address: [address] Performed By: #### 2 4344-4 ####[facility] RESPIRATORYCLSC [id number] [facility] [id number] [address] [address] Oxyhemoglobin (BldV) [Mass fraction] 37 % Low 60-85 [facility] Comment on above: Order Comment: Speci men Type: VENOUS BLOOD SPECIMENOrdering Facility: [facility] Address: [address] [address] Performed By: #### 2 4344-4 ####[facility] RESPIRATORYIA [id number] [facility] [id number] [address] pH (BldV) 7.42 [pH] Normal 7.32-7.42 [facility] Comment on above: Order Comment: Speci men Type: VENOUS BLOOD SPECIMENOrdering Facility: [facility] Address: [address] [address] Performed By: #### 2 4344-4 ####[facility]ORYVER[facility] [id number] [facility]PIRAT[facility] [id number] [address] pH adjusted to patient's actual temperature (BldV) Normal [facility] Comment on above: Order Comment: Speci men Type: VENOUS BLOOD SPECIMENOrdering Facility: [facility] Address: [address] [place] [address] Performed By: #### 2 4344-4 ####[facility]PIRATORYVER[facility] [id number] [facility] RESPIRAT[facility] [id number] [address] Potassium [Moles/Vol] 3.1 mmol/L Low 3.5-5.0 [facility] Comment on above: Order Comment: Speci men Type: VENOUS BLOOD SPECIMENOrdering Facility: [facility] Address: [address] [place] [address] Performed By: #### 2 4344-4 ####[facility]ATORYVER[facility] [id number] [facility] RESPIRAT[facility] [id number] [address] HIGH SENSITIVITY TROPONIN T (INITIAL)on 03-29-2023 HIGH SENSITIVITY ALEENA 30 ng/L High <12 [facility] Comment on above: Order Comment: Speci men Type: BLOOD SPECIMENOrdering Facility: [facility] Address: [address] [place] [address] Result Comment: When assessing risk for acute coronary syndromes: In patients undergoing blood draw greater than or equal to 2 hours from symptom onset, with history of very low to moderate risk and non-ischemic ECG, an initial hs-Troponin T less than 12 ng/L AND a 1 hour delta hs-Troponin T less than 3 ng/L should be considered very low risk for 30 day MACE. Performed By: #### 3 3762-6, 2157-6, LOO4244, 71737-4 ####Z[facility] LABORATORYCLIA [id number] [address] [place] HIGH SENSITIVITY TROPONIN T (SECOND)on 03-29-2023 HIGH SENSITIVITY ALEENA 29 ng/L High <12 [facility] Comment on above: Order Comment: Jean weems Type: BLOOD SPECIMEN Ordering [facility]: [facility] Address: [address] [place] [address] Result Comment: When assessing risk for acute coronary syndromes: In patients undergoing blood draw greater than or equal to 2 hours from symptom onset, with history of very low to moderate risk and non-ischemic ECG, an initial hs-Troponin T less than 12 ng/L AND a 1 hour delta hs-Troponin T less than 3 ng/L should be considered very low risk for 30 day MACE. Performed By: #### L [id number], 1987-12 #### [facility] CLIA [id number] [address] HIGH SENSITIVITY TROPONIN T (THIRD) 3 HRS AFTER INITIALon 03-29-2023 HIGH SENSITIVITY ALEENA 27 ng/L High <[address] [place] [address] Comment on above: Order Comment: Jean weems Type: BLOOD SPECIMEN Ordering Facility: [facility] Address: [address] [place] [address] Result Comment: When assessing risk for acute coronary syndromes: In patients undergoing blood draw greater than or equal to 2 hours from symptom onset, with history of very low to moderate risk and non-ischemic ECG, an initial hs-Troponin T less than 12 ng/L AND a 1 hour delta hs-Troponin T less than 3 ng/L should be considered very low risk for 30 day MACE. Performed By: #### L IE6160, 1987-12 #### [facility] CLIA [id number] [address] [place] NT-proBNP SerPl-mCncon 03-29 Natriuretic peptide.B prohormone N-Terminal [Mass/Vol] 3874 pg/mL High <450 [facility] Comment on above: Order Comment: Speci men Type: BLOOD SPECIMENOrdering Facility: [facility] Address: [place] [address] Performed By: #### 3 3762-6, 2157-6, GPX1050, 62753-9 ####[facility] LABORATORYCLIA [id number] [place] [address] [facility] XR CHEST 1V FRONTAL PORTon 0 03-29-2023 XR CHEST 1V FRONTAL PORT * * *Final Report* * * DATE OF EXAM: Mar 29 2023 6:50PM MDX 5376 - XR CHEST 1V FRONTAL PORT / PROCEDURE REASON: Fatigue and malaise * * * * Physician Interpretation * * * * EXAMINATION: CHEST RADIOGRAPH (PORTABLE SINGLE VIEW AP) Exam Date/Time: 03/29/2023 6:50 PM CLINICAL HISTORY: Fatigue and malaise MQ: XCPR_5 Comparison: Chest x-ray on 07/07/2017 RESULT: Lines, tubes, and devices: None. Lungs and pleura: The right lung and left mid to lower lung zones appear clear. Patient's arm and hands overlying part of the left hemithorax with nonvisualization of the left upper lung. No large pleural effusions or pneumothorax. Cardiomediastinal silhouette: Stable cardiomediastinal silhouette. Other: None. IMPRESSION: Findings as described above. Brush Sander: ANGEL Transcribe Date/Time: Mar 29 2023 7:04P Dictated by : DENISSE ACEVEDO MD This examination was interpreted and the report reviewed and electronically signed by: DENISSE ACEVEDO MD on Mar 29 2023 7:06PM EST [id number] Normal [facility] XR TIBIA FIBULA 2V AP/LAT LT on 03-29-2023 XR TIBIA FIBULA 2V AP/LAT LT * * *Final Report* * * DATE OF EXAM: Mar 29 2023 6:50PM MDX 5265 - XR TIBIA FIBULA 2V AP/LAT LT / PROCEDURE REASON: Osteomyelitis suspected, tib/fib, no prior imaging * * * * Physician Interpretation * * * * HISTORY: Osteomyelitis suspected, tib/fib, no prior imaging. Patient states that she has felt weak and fatigued for some time, she also is having pain on her left lowesr leg and is concerned for infection. osteomyelitis. TECHNIQUE: XR TIBIA FIBULA 2V AP/LAT LT Laterality: LEFT Number of different views (projections): 2 COMPARISON: None RESULT: Diffuse soft tissue prominence/swelling. Nonspecific soft tissue calcifications about the lateral aspect of the leg and anterior and medial aspects of the distal leg. Linear radiodensities overlying the distal and lateral aspects of the left leg likely external to the patient may relate to bandage artifacts. No evidence of acute fracture, dislocation, or acute bony destructive process. Patellar osteophytes. IMPRESSION: Diffuse left leg soft tissue prominence/swelling and nonspecific soft tissue calcifications. No radiographic evidence of acute bony destructive process. Brush Sander: ANGEL Transcribe Date/Time: Mar 29 2023 7:03P Dictated by : ALECIA GARCIA MD This examination was interpreted and the report reviewed and electronically signed by: ALECIA GARCIA MD on Mar 29 2023 7:05PM EST [id number] Normal [facility] Absolute lymphocyte countOrd ered By: Armand Bob on 03-19-2023 Lymphocytes Auto (Unsp spec) [#/Vol] 1.57 10*3/uL 0.83-4.51 [facility] Basophil percentageOrdered B y: Armand Bob on 03-19-2023 Basophil percentage Not Reportable [facility] Basophil percentage 2.0 mg/dL 2.5-4.9 [facility] Chloride [Moles/Vol] 110 mmol/L 98-107 [facility] Glucose [Mass/Vol] 92 mg/dL 74-106 [facility] Neutrophils (Bld) [#/Vol] 10.9 10*3/uL 2.0-7.7 [facility] Potassium [Moles/Vol] 3.6 mmol/L 3.5-5.1 [facility] Sodium [Moles/Vol] 138 mmol/L 136-145 [facility] WBC (Bld) [#/Vol] 13.1 10*3/uL 4.4-11.0 [facility] Blood band neutrophil count as percentage of total leukocytesOrdered By: Armand Bob on 03-19-2023 Band form neutrophils/100 WBC (Bld) 15 % 0-5 [facility] Blood erythrocytes count (nu mber/volume)Ordered By: Armand Bob on 03-19-2023 RBC (Bld) [#/Vol] 3.28 10*6/uL 4.2-5.4 [facility] Blood hemoglobin measurement (mass/volume)Ordered By: Armand Bob on 03-19-2023 Hemoglobin (Bld) [Mass/Vol] 9.5 g/dL 12.0-15.0 [facility] Blood lymphocytes/100 leukoc ytesOrdered By: Armand Bob on 03-19-2023 Lymphocytes/100 WBC (Bld) 12 % 19-41 [facility] Blood monocytes/100 leukocyt esOrdered By: Armand Bob on 03-19-2023 Monocytes/100 WBC (Bld) 4 % 0-10 [facility] Blood platelet adequacy dete ction by light microscopyOrdered By: Armand Bob on 03-19-2023 Platelets LM Ql (Bld) SLT DEC ADEQ [facility] Blood platelet mean volumeOr dered By: Armand Bob on 03-19-2023 Platelet mean volume (Bld) [Entitic vol] 10.7 fL 6.2-12.0 [facility] Blood segmented neutrophils/ 100 leukocytesOrdered By: Armand Bob on 03-19-2023 Segmented neutrophils/100 WBC (Bld) 68 % 47-70 [facility] Determination of erythrocyte mean corpuscular volume (MCV)Ordered By: Armand Bob on 03-19-2023 MCV (RBC) [Entitic vol] 91.2 fL 81-99 [facility] Hematocrit Auto (Bld) [Volum e fraction]Ordered By: Armand Bob on 03-19-2023 Hematocrit (Bld) [Volume fraction] 29.9 % 37-47 [facility] Laboratory - Chemistry and C hemistry - challengeOrdered By: Armand Bob on 03-19-2023 CO2 [Moles/Vol] 25.0 mmol/L 21.0-32.0 [facility] Magnesium [Mass/Vol] 2.0 mg/dL 1.6-2.6 [facility] Urea nitrogen/Creatinine [Mass ratio] 20.3 mg/mg 10-20 [facility] - Hematology and Cell countsOrdered By: Armand Bob on 03-19-2023 Erythrocyte distribution width (RBC) [Entitic vol] 48.0 fL 35.1-43.9 [facility] Erythrocyte distribution width (RBC) [Ratio] 14.2 % 11.6-14.6 [facility] MCH (RBC) [Entitic mass] 29.0 pg 27.0-32.0 [facility] Myelocytes/100 WBC (Bld) 1 % 0-0 [facility] MCHC Auto (RBC) [Mass/Vol]Or dered By: Armand Bob on 03-19-2023 MCHC (RBC) [Mass/Vol] 31.8 g/dL 32-36 [facility] No Panel InformationOrdered By: Armand Bob on 03-19-2023 Estimated Creatinine Clearance Calc 44.42 ml/min [facility] Estimated GFR (MDRD) Amer 51 mL/min >60 [facility] Comment on above: GFR Calc Estimated GFR (MDRD) Non-Af Amer 42 mL/min >60 [facility] Comment on above: Non- GFR Calc Platelets bldOrdered By: Sarbjit Bob on 03-19-2023 Platelets (Bld) [#/Vol] 136 10*3/uL 150-450 [facility] RBC morphologyOrdered By: Gumaro Bob on 03-19-2023 RBC morphology finding Nom (Bld) NORM C+C NORMAL NORM C&C [facility] Review by pathologistOrdered By: Armand Bob on 03-19-2023 Pathologist review Bryce (Unsp spec) [Interp] Reviewed [facility] Comment on above: Previous reported re sult: Narda angel Edited by: RGOMARCELA on 03/20/23:1011Neutrophilic leukocytosis.Normocytic anemia.Mild Thrombocytopenia.Clinical correlation necessary.Rainer Nelson M.D. 03/20/23 AMENDED REPORT 03/20/23 1011 PATH REV previously reported as: Narda angel Serum or plasma calcium lakeisha urement (mass/volume)Ordered By: Armand Bob on 03-19-2023 Calcium [Mass/Vol] 7.8 mg/dL 8.5-10.1 [facility] Serum or plasma creatinine m easurement (mass/volume)Ordered By: Armand Bob on 03-19-2023 Creatinine [Mass/Vol] 1.28 mg/dL 0.55-1.02 [facility] Comment on above: The validity of the calculated GFR & GFRAA in patients over 70 years has not been determined. Clinical correlation is essential. Serum or plasma urea nitroge n measurement (mass/volume)Ordered By: Armand Bob on 03-19-2023 Urea nitrogen [Mass/Vol] 26 mg/dL 7-18 [facility] Thin prep Papanicolaou smear with manual screeningOrdered By: Armand Bob on 03-19-2023 Thin prep Papanicolaou smear with manual screening 3 5-15 [facility] Total cell countOrdered By: Armand Bob on 03-19-2023 Cells counted Molgen (Bld/Tiss) [#] 100 MANUAL DIFF [facility] Basophil percentageOrdered B y: Nata Rivers on 03-18-2023 Basophils/100 WBC (Bld) 0.2 % 0-1 [facility] Eosinophils/100 WBC (Bld) 0.0 % 0-5 [facility] Blood lymphocytes/100 leukoc ytesOrdered By: Nata Rivers on 03-18-2023 Lymphocytes/100 WBC (Bld) 3.7 % 19-41 [facility] Blood manual differential co mment interpretation (narrative result)Ordered By: Nata Rivers on 03-18-2023 Manual differential comment Bryce (Bld) [Interp] SCANNED [facility] Comment on above: LYMPHOPENIALEFT SHIF T PRESENT BANDS 2+ Blood monocytes/100 leukocyt esOrdered By: Nata Rivers on 03-18-2023 Monocytes/100 WBC (Bld) 4.5 % 0-10 [facility] Laboratory - Hematology and Cell countsOrdered By: Nata Rivers on 03-18-2023 Immature granulocytes/100 WBC (Bld) 2.100 % 0.0-0.9 [facility] Comment on above: IG% - Immature Granu locytes (promyelocytes, myelocytes and metamyelocytes) > 1% indicates that a LEFT SHIFT is Present. Nucleated RBC/100 WBC (Bld) [Ratio] 0 % 0-5 [facility] Basophil percentageOrdered B y: Familia Smalls on 03-17-2023 Lactate [Moles/Vol] 1.5 mmol/L 0.4-2.0 [facility] Bilirubin [Mass/Vol] 0.60 mg/dL 0.20-1.00 [facility] Comment on above: For patients on eltr ombopag therapy, use of Dimension [place] TBIL is not recommended. Protein [Mass/Vol] 7.8 g/dL 6.4-8.2 [facility] INR in Blood by Coagulation assayOrdered By: Familia Smalls on 03-17-2023 INR Coag (Bld) [Relative time] 1.2 {INR} [facility] Laboratory - Chemistry and C hemistry - challengeOrdered By: Familia Smalls on 03-17-2023 ALP [Catalytic activity/Vol] 82 U/L 45-117 [facility] ALT [Catalytic activity/Vol] 16 U/L 13-56 [facility] Globulin (S) [Mass/Vol] 5.0 g/dL 2.2-4.2 [facility] Laboratory - CoagulationOrde red By: Familia Smalls on 03-17-2023 aPTT Coag (Bld) [Time] 32.6 s 24.1-36.2 [facility] PT Coag (PPP) [Time] 15.5 s 11.7-14.9 [facility] Laboratory - Microbiology an d Antimicrobial susceptibilityOrdered By: Familia Smalls on 03-17-2023 Bacteria identified Cx Nom (Bld) No growth in 5 days. [facility] Bacteria identified Cx Nom (Bld) No growth in 5 days. [facility] Serum or plasma albumin lakeisha urement (mass/volume)Ordered By: Familia Smalls on 03-17-2023 Albumin [Mass/Vol] 2.8 g/dL 3.2-5.0 [facility] Serum or plasma albumin/glob ulin mass ratioOrdered By: Familia Smalls on 03-17-2023 Albumin/Globulin [Mass ratio] 0.6 {ratio} 0.9-2.4 [facility] Thin prep Papanicolaou smear with manual screeningOrdered By: Familia Smalls on 03-17-2023 Thin prep Papanicolaou smear with manual screening 20 U/L 15-37 [facility] Absolute lymphocyte countOrd ered By: ED PROVIDER on 01-15-2023 Lymphocytes Auto (Unsp spec) [#/Vol] 1.19 10*3/uL 0.83-4.51 [facility] Basophil percentageOrdered B y: ED PROVIDER on 01-15-2023 Basophils/100 WBC (Bld) 0.5 % 0-1 [facility] Chloride [Moles/Vol] 105 mmol/L 98-107 [facility] Eosinophils/100 WBC (Bld) 1.2 % 0-5 [facility] Glucose [Mass/Vol] 96 mg/dL 74-106 [facility] Neutrophils (Bld) [#/Vol] 4.3 10*3/uL 2.0-7.7 [facility] Neutrophils/100 WBC (Bld) 67.5 % 47-70 [facility] Potassium [Moles/Vol] 3.6 mmol/L 3.5-5.1 [facility] Sodium [Moles/Vol] 140 mmol/L 136-145 [facility] WBC (Bld) [#/Vol] 6.4 10*3/uL 4.4-11.0 [facility] Blood erythrocytes count (nu mber/volume)Ordered By: ED PROVIDER on 01-15-2023 RBC (Bld) [#/Vol] 3.71 10*6/uL 4.2-5.4 [facility] Blood hemoglobin measurement (mass/volume)Ordered By: ED PROVIDER on 01-15-2023 Hemoglobin (Bld) [Mass/Vol] 10.6 g/dL 12.0-15.0 [facility] Blood lymphocytes/100 leukoc ytesOrdered By: ED PROVIDER on 01-15-2023 Lymphocytes/100 WBC (Bld) 18.6 % 19-41 [facility] Blood monocytes/100 leukocyt esOrdered By: ED PROVIDER on 01-15-2023 Monocytes/100 WBC (Bld) 11.9 % 0-10 [facility] Blood platelet mean volumeOr dered By: ED PROVIDER on 01-15-2023 Platelet mean volume (Bld) [Entitic vol] 10.2 fL 6.2-12.0 [facility] Determination of erythrocyte mean corpuscular volume (MCV)Ordered By: ED PROVIDER on 01-15-2023 MCV (RBC) [Entitic vol] 89.5 fL 81-99 [facility] Hematocrit Auto (Bld) [Volum e fraction]Ordered By: ED PROVIDER on 01-15-2023 Hematocrit (Bld) [Volume fraction] 33.2 % 37-47 [facility] Influenza virus A and B and SARS-CoV-2 (COVID-19) Ag panel - Upper respiratory specimOrdered By: ED PROVIDER on 01-15-2023 SARS-CoV-2 (COVID-19) RNA KEERTHI+probe Ql (Resp) [facility] Laboratory - Chemistry and C hemistry - challengeOrdered By: ED PROVIDER on 01-15-2023 CO2 [Moles/Vol] 29.0 mmol/L 21.0-32.0 [facility] Natriuretic peptide B (Bld) [Mass/Vol] 147.5 pg/mL 0-100 [facility] Urea nitrogen/Creatinine [Mass ratio] 19.5 mg/mg 10-20 [facility] - Hematology and Cell countsOrdered By: ED PROVIDER on 01-15-2023 Erythrocyte distribution width (RBC) [Entitic vol] 46.5 fL 35.1-43.9 [facility] Erythrocyte distribution width (RBC) [Ratio] 14.2 % 11.6-14.6 [facility] Immature granulocytes/100 WBC (Bld) 0.300 % 0.0-0.9 [facility] Comment on above: IG% - Immature Granu locytes (promyelocytes, myelocytes and metamyelocytes) > 1% indicates that a LEFT SHIFT is Present. MCH (RBC) [Entitic mass] 28.6 pg 27.0-32.0 [facility] Nucleated RBC/100 WBC (Bld) [Ratio] 0 % 0-5 [facility] MCHC Auto (RBC) [Mass/Vol]Or dered By: ED PROVIDER on 01-15-2023 MCHC (RBC) [Mass/Vol] 31.9 g/dL 32-36 [facility] No Panel InformationOrdered By: Deann Kaur on 01-15-2023 D-Dimer Quantitative (PE/DVT) 1.09 FEU/ug/m 0.27-0.49 [facility] Comment on above: D-Dimer ELEVATED (>0 .49): Additional studies and clinicalassessments are indicated to conclude diagnosis of:Deep Vein Thrombosis (DVT) or Pulmonary Embolism (PE)CRITICAL VALUE VERIFIED. CALLED TO [id number] Tess Serrano.RESULTS READ BACK BY SAME . Troponin I High Sensitivity 6 pg/mL 3.0-54.0 [facility] Comment on above: Please Note: New Jessica t Units and Gender Specific Reference Ranges. For more information see Policy Stat Procedure [place] High Sensitivity Troponin (TNIH) and attachments. No Panel InformationOrdered By: ED PROVIDER on 01-15-2023 Estimated Creatinine Clearance Calc 23.50 ml/min [facility] Estimated GFR (MDRD) Amer 51 mL/min >60 [facility] Comment on above: GFR Calc Estimated GFR (MDRD) Non-Af Amer 42 mL/min >60 [facility] Comment on above: Non- GFR Calc Platelets bldOrdered By: ED PROVIDER on 01-15-2023 Platelets (Bld) [#/Vol] 196 10*3/uL 150-450 [facility] Serum or plasma calcium lakeisha urement (mass/volume)Ordered By: ED PROVIDER on 01-15-2023 Calcium [Mass/Vol] 8.9 mg/dL 8.5-10.1 [facility] Serum or plasma creatinine m easurement (mass/volume)Ordered By: ED PROVIDER on 01-15-2023 Creatinine [Mass/Vol] 1.28 mg/dL 0.55-1.02 [facility] Comment on above: The validity of the calculated GFR & GFRAA in patients over 70 years has not been determined. Clinical correlation is essential. Serum or plasma urea nitroge n measurement (mass/volume)Ordered By: ED PROVIDER on 01-15-2023 Urea nitrogen [Mass/Vol] 25 mg/dL 7-18 [facility] Thin prep Papanicolaou smear with manual screeningOrdered By: ED PROVIDER on 01-15-2023 Thin prep Papanicolaou smear with manual screening 6 5-15 [facility] CNPNon 01-03-2023 CNPN Telephone ([facility]) CHEMA KOROMA ([id number]) 1940 F Date Time Provider Department 01/03/23 JUDITH AU During your visit today, we recorded the following information about you: Logan Au PA-C 01/03/2023 10:38 AM Signed Called chema No answer Left VM All attempts to reach the patient have been attempted. If patient would like to move forward with possible next steps then she may contact our department for triage questions and next steps. Judith Au PA-C. January 03, 2023 Allergies As of Date: 01/03/2023 Noted Allergy Reaction ASPIRIN 09/30/2001 BENTYL (DICYCLOMINE HCL) 03/29/2011 4 - Hives OTHER [Other] 01/29/2007 Comments: pt states had reaction to IV med given for MRI 12/04/2006 TAPE (ADHESIVE TAPE-SILICONES) 03/09/2019 2 - Rash Comments: rash Date Reviewed: 09/11/2022 Reviewed by: Charla Benitez LPN - Fully Assessed Reason for Visit: Appointment [186] Prescriptions as of 01/03/2023 - carvedilol (COREG) 3.125 mg tablet TAKE 1 TABLET BY MOUTH TWICE DAILY. Administer with a meal/food. - lisinopril (ZESTRIL, PRINIVIL) 10 mg tablet Take 20 mg by mouth once daily. - potassium chloride ER (K-DUR, KLOR-CON) 20 mEq tablet Take 20 mEq by mouth once daily. - mupirocin (BACTROBAN) 2 % ointment Apply 1 application to affected area three times daily. - acetaminophen (TYLENOL) 325 mg tablet Take 1 tablet by mouth every 4 hours as needed. - traMADol (ULTRAM) 50 mg tablet Take 1 tablet by mouth every 6 hours as needed. - hydrALAZINE (APRESOLINE) 25 mg tablet Take 1 tablet by mouth every 6 hours as needed (SBP > 160, hold for HR > 100). - amLODIPine (NORVASC) 5 mg tablet Take 1 tablet by mouth once daily. - calcium-cholecalciferol, D3, (OSCAL+D 250) 250-125 mg-unit per tablet Take 2 tablets by mouth twice daily. - docusate sodium (COLACE) 100 mg capsule Take 1 capsule by mouth twice daily as needed. - furosemide (LASIX) 40 mg tablet Take 1 tablet by mouth once daily. - pantoprazole DR (PROTONIX) 40 mg tablet Take 1 tablet by mouth DAILY (6 AM). - phosphorus (K PHOS NEUTRAL) 250 mg tablet Take 1 tablet by mouth twice daily. - valsartan (DIOVAN) 80 mg tablet Take 80 mg by mouth once daily. - Cholecalciferol, Vitamin D3, 25 mcg (1,000 unit) cap Take 1,000 Units by mouth once daily. 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, 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] 05/03/2010 Atypical endometrial cells on Pap smear [R87.61*12/11/2010 PMB (postmenopausal bleeding) [N95.0]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 4.4 g/dL 2.2-4.2 [facility] Work Phone: [phone] Urea nitrogen/Creatinine [Mass ratio] 32.5 mg/mg 10-20 [facility] Work Phone: [phone] Laboratory - Hematology and Cell countson 03-19-2022 Erythrocyte distribution width (RBC) [Entitic vol] 46.2 fL 35.1-43.9 [facility] Work Phone: [phone] Erythrocyte distribution width (RBC) [Ratio] 13.4 % 11.6-14.6 [facility] Work Phone: [phone] Immature granulocytes/100 WBC (Bld) 0.400 % 0.0-0.9 [facility] Work Phone: Comment on above: IG% - Immature Granu locytes (promyelocytes, myelocytes and metamyelocytes) > 1% indicates that a LEFT SHIFT is Present. MCH (RBC) [Entitic mass] 30.0 pg 27.0-32.0 [facility] Work Phone: Nucleated RBC/100 WBC (Bld) [Ratio] 0 % 0-5 [facility] Work Phone: MCHC Auto (RBC) [Mass/Vol]on 03-19-2022 MCHC (RBC) [Mass/Vol] 32.0 g/dL 32-36 [facility] Work Phone: No Panel Informationon 03-19 Addendum Document Comment . [facility] Work Phone: Comment on above: Faint band in gamma region suspicious for monoclonalimmunoglobulin. This band may represent a benign spike asseen in older people or could be a paraprotein as seen inMultiple Myeloma, Waldenstrom's Macroglobulinemia orLymphoma. Depending on clinical circumstances, furtherdiagnostic studies may include serum immunofixation orserum free light chain quantitation.Performed at: [address] [id number] Director: Zane Barroso PhD, Phone: [phone] [id number] 0.2 g/dL 0.0-0.4 [facility] Work Phone: [id number]-6-[id number] 0.8 g/dL 0.4-1.0 [facility] Work Phone: Estimated GFR (MDRD) Amer 40 mL/min >60 [facility] Work Phone: Comment on above: GFR Calc Estimated GFR (MDRD) Non-Af Amer 33 mL/min >60 [facility] Work Phone: Comment on above: Non- GFR Calc Gamma Globulins 1.6 g/dL 0.4-1.8 [facility] Work Phone: Platelets bldon 03-19-2022 Platelets (Bld) [#/Vol] 228 10*3/uL 150-450 [facility] Work Phone: Protein Fractions Elph [Inte rp]on 03-19-2022 Protein Fractions [Interp] Comment . [facility] Work Phone: Comment on above: Protein electrophore sis scan will follow via computer,mail, or [employer] delivery. Serum albumin to globulin ra jean-paul by protein electrophoresison 03-19-2022 Albumin/Globulin Elph [Mass ratio] 1.0 0.7-1.7 [facility] Work Phone: Serum globulin measurement ( mass/volume)on 03-19-2022 Globulin (S) [Mass/Vol] 3.7 g/dL 2.2-3.9 [facility] Work Phone: Serum or plasma C reactive p rotein measurement (mass/volume)on 03-19-2022 CRP [Mass/Vol] mg/L 0.0-3.0 [facility] Work Phone: Comment on above: C-Reactive Protein ( CRP) provides useful information for thediagnosis, therapy and monitoring of inflammatory processesand associated diseases. For the evaluation of Relative Riskfor Cardiovascular Disease, a High Sensitivity CRP (HSCRP)should be ordered. Serum or plasma albumin lakeisha urement (mass/volume)on 03-19-2022 Albumin [Mass/Vol] 3.4 g/dL 3.2-5.0 [facility] Work Phone: Serum or plasma albumin/glob ulin mass ratioon 03-19-2022 Albumin/Globulin [Mass ratio] 0.8 {ratio} 0.9-2.4 [facility] Work Phone: Serum or plasma beta globuli n measurement by electrophoresis (mass/volume)on 03-19-2022 Beta globulin Elph [Mass/Vol] 1.1 g/dL 0.7-1.3 [facility] Work Phone: Serum or plasma calcium lakeisha urement (mass/volume)on 03-19-2022 Calcium [Mass/Vol] 9.3 mg/dL 8.5-10.1 [facility] Work Phone: Serum or plasma creatinine m easurement (mass/volume)on 03-19-2022 Creatinine [Mass/Vol] 1.60 mg/dL 0.55-1.02 [facility] Work Phone: Comment on above: The validity of the calculated GFR & GFRAA in patients over 70 years has not been determined. Clinical correlation is essential. Serum or plasma urea nitroge n measurement (mass/volume)on 03-19-2022 Urea nitrogen [Mass/Vol] 52 mg/dL 7-18 [facility] Work Phone: Thin prep Papanicolaou smear with manual screeningon 03-19-2022 Thin prep Papanicolaou smear with manual screening 14 U/L 15-37 [facility] Work Phone: Thin prep Papanicolaou smear with manual screening 5 5-15 [facility] Work Phone: Thin prep Papanicolaou smear with manual screening See comment [facility] Work Phone: Comment on above: ASYMMETRICAL GAMMA Total protein bloodon 2021 Protein [Mass/Vol] 7.4 g/dL 6.0-8.5 [facility] Work Phone: Absolute lymphocyte counton 01-18-2022 Lymphocytes Auto (Unsp spec) [#/Vol] 0.89 10*3/uL 0.83-4.51 [facility] Work Phone: Basophil percentageon 2021 Basophils/100 WBC (Bld) 0.0 % 0-1 [facility] Work Phone: Chloride [Moles/Vol] 104 mmol/L 98-107 [facility] Work Phone: Eosinophils/100 WBC (Bld) 1.3 % 0-5 [facility] Work Phone: Glucose [Mass/Vol] 92 mg/dL 74-106 [facility] Work Phone: Neutrophils (Bld) [#/Vol] 1.7 10*3/uL 2.0-7.7 [facility] Work Phone: Neutrophils/100 WBC (Bld) 55.8 % 47-70 [facility] Work Phone: Potassium [Moles/Vol] 4.7 mmol/L 3.5-5.1 [facility] Work Phone: Comment on above: Moderate Hemolysis, Result may be falsely increased. Sodium [Moles/Vol] 137 mmol/L 136-145 [facility] Work Phone: WBC (Bld) [#/Vol] 3.0 10*3/uL 4.4-11.0 [facility] Work Phone: Blood erythrocytes count (nu mber/volume)on 01-18-2022 RBC (Bld) [#/Vol] 4.02 10*6/uL 4.2-5.4 [facility] Work Phone: Blood hemoglobin measurement (mass/volume)on 01-18-2022 Hemoglobin (Bld) [Mass/Vol] 11.5 g/dL 12.0-15.0 [facility] Work Phone: Blood lymphocytes/100 leukoc yteson 01-18-2022 Lymphocytes/100 WBC (Bld) 29.6 % 19-41 [facility] Work Phone: Blood monocytes/100 leukocyt eson 01-18-2022 Monocytes/100 WBC (Bld) 13.0 % 0-10 [facility] Work Phone: Blood platelet mean volumeon 01-18-2022 Platelet mean volume (Bld) [Entitic vol] 10.5 fL 6.2-12.0 [facility] Work Phone: [phone] Determination of erythrocyte mean corpuscular volume (MCV)on 01-18-2022 MCV (RBC) [Entitic vol] 88.8 fL 81-99 [facility] Work Phone: Hematocrit Auto (Bld) [Volum e fraction]on 01-18-2022 Hematocrit (Bld) [Volume fraction] 35.7 % 37-47 [facility] Work Phone: [phone] Laboratory - Chemistry and C hemistry - challengeon 01-18-2022 CO2 [Moles/Vol] 27.0 mmol/L 21.0-32.0 [facility] Work Phone: [phone] Urea nitrogen/Creatinine [Mass ratio] 30.2 mg/mg 10-20 [facility] Work Phone: Laboratory - Hematology and Cell countson 01-18-2022 Erythrocyte distribution width (RBC) [Entitic vol] 45.8 fL 35.1-43.9 [facility] Work Phone: Erythrocyte distribution width (RBC) [Ratio] 14.0 % 11.6-14.6 [facility] Work Phone: [phone] Immature granulocytes/100 WBC (Bld) 0.300 % 0.0-0.9 [facility] Work Phone: [phone] Comment on above: IG% - Immature Granu locytes (promyelocytes, myelocytes and metamyelocytes) > 1% indicates that a LEFT SHIFT is Present. MCH (RBC) [Entitic mass] 28.6 pg 27.0-32.0 [facility] Work Phone: Nucleated RBC/100 WBC (Bld) [Ratio] 0 % 0-5 [facility] Work Phone: MCHC Auto (RBC) [Mass/Vol]on 01-18-2022 MCHC (RBC) [Mass/Vol] 32.2 g/dL 32-36 [facility] Work Phone: No Panel Informationon 01-18 Estimated Creatinine Clearance Calc 18.90 ml/min [facility] Work Phone: Estimated GFR (MDRD) Amer 39 mL/min >60 [facility] Work Phone: Comment on above: GFR Calc Estimated GFR (MDRD) Non-Af Amer 32 mL/min >60 [facility] Work Phone: Comment on above: Non- GFR Calc Platelets bldon 01-18-2022 Platelets (Bld) [#/Vol] 172 10*3/uL 150-450 [facility] Work Phone: Serum or plasma calcium lakeisha urement (mass/volume)on 01-18-2022 Calcium [Mass/Vol] 9.4 mg/dL 8.5-10.1 [facility] Work Phone: Serum or plasma creatinine m easurement (mass/volume)on 01-18-2022 Creatinine [Mass/Vol] 1.62 mg/dL 0.55-1.02 [facility] Work Phone: Comment on above: The validity of the calculated GFR & GFRAA in patients over 70 years has not been determined. Clinical correlation is essential. Serum or plasma urea nitroge n measurement (mass/volume)on 01-18-2022 Urea nitrogen [Mass/Vol] 49 mg/dL 7-18 [facility] Work Phone: Thin prep Papanicolaou smear with manual screeningon 01-18-2022 Thin prep Papanicolaou smear with manual screening 6 5-15 [facility] Work Phone: Absolute lymphocyte counton 01-16-2022 Lymphocytes Auto (Unsp spec) [#/Vol] 0.70 10*3/uL 0.83-4.51 [facility] Work Phone: Basophil percentageon 2021 Basophils/100 WBC (Bld) 0.3 % 0-1 [facility] Work Phone: Chloride [Moles/Vol] 105 mmol/L 98-107 [facility]: Eosinophils/100 WBC (Bld) 0.9 % 0-5 [facility] Work Phone: Glucose [Mass/Vol] 91 mg/dL 74-106 [facility] Work Phone: Neutrophils (Bld) [#/Vol] 2.5 10*3/uL 2.0-7.7 [facility] Work Phone: Neutrophils/100 WBC (Bld) 70.5 % 47-70 [facility] Work Phone: Potassium [Moles/Vol] 4.7 mmol/L 3.5-5.1 [facility] Work Phone: Comment on above: Slight Hemolysis, Re sult may be falsely increased. Sodium [Moles/Vol] 136 mmol/L 136-145 [facility] Work Phone: WBC (Bld) [#/Vol] 3.5 10*3/uL 4.4-11.0 [facility] Work Phone: Blood erythrocytes count (nu mber/volume)on 01-16-2022 RBC (Bld) [#/Vol] 4.41 10*6/uL 4.2-5.4 [facility] Work Phone: Blood hemoglobin measurement (mass/volume)on 01-16-2022 Hemoglobin (Bld) [Mass/Vol] 12.7 g/dL 12.0-15.0 [facility] Work Phone: Blood lymphocytes/100 leukoc yteson 01-16-2022 Lymphocytes/100 WBC (Bld) 20.2 % 19-41 [facility] Work Phone: Blood monocytes/100 leukocyt eson 01-16-2022 Monocytes/100 WBC (Bld) 7.8 % 0-10 [facility] Work Phone: Blood platelet mean volumeon 01-16-2022 Platelet mean volume (Bld) [Entitic vol] 10.4 fL 6.2-12.0 [facility] Work Phone: [phone] Determination of erythrocyte mean corpuscular volume (MCV)on 01-16-2022 MCV (RBC) [Entitic vol] 90.0 fL 81-99 [facility] Work Phone: Hematocrit Auto (Bld) [Volum e fraction]on 01-16-2022 Hematocrit (Bld) [Volume fraction] 39.7 % 37-47 [facility] Work Phone: [phone] Laboratory - Chemistry and C hemistry - challengeon 01-16-2022 CO2 [Moles/Vol] 26.0 mmol/L 21.0-32.0 [facility] Work Phone: Natriuretic peptide B (Bld) [Mass/Vol] 168.5 pg/mL 0-100 [facility] Work Phone: Urea nitrogen/Creatinine [Mass ratio] 25.4 mg/mg 10-20 [facility] Work Phone: Laboratory - Hematology and Cell countson 01-16-2022 Erythrocyte distribution width (RBC) [Entitic vol] 46.9 fL 35.1-43.9 [facility] Work Phone: [phone] Erythrocyte distribution width (RBC) [Ratio] 14.0 % 11.6-14.6 [facility] Work Phone: [phone] Immature granulocytes/100 WBC (Bld) 0.300 % 0.0-0.9 [facility] Work Phone: [phone] Comment on above: IG% - Immature Granu locytes (promyelocytes, myelocytes and metamyelocytes) > 1% indicates that a LEFT SHIFT is Present. MCH (RBC) [Entitic mass] 28.8 pg 27.0-32.0 [facility] Work Phone: Nucleated RBC/100 WBC (Bld) [Ratio] 0 % 0-5 [facility] Work Phone: MCHC Auto (RBC) [Mass/Vol]on 01-16-2022 MCHC (RBC) [Mass/Vol] 32.0 g/dL 32-36 [facility] Work Phone: No Panel Informationon 01-16 Estimated Creatinine Clearance Calc 48.89 ml/min [facility] Work Phone: Estimated GFR (MDRD) Amer 56 mL/min >60 [facility] Work Phone: Comment on above: GFR Calc Estimated GFR (MDRD) Non-Af Amer 46 mL/min >60 [facility] Work Phone: Comment on above: Non- GFR Calc Troponin I High Sensitivity 10 pg/mL 3.0-54.0 [facility] Work Phone: Comment on above: Please Note: New Jessica t Units and Gender Specific Reference Ranges. For more information see Policy Stat Procedure [place] High Sensitivity Troponin (TNIH) and attachments. SARS-CoV-2 & FLU Antigen (Rapid) SARS-CoV-2 (COVID 19) [facility] Work Phone: Platelets bldon 01-16-2022 Platelets (Bld) [#/Vol] 166 10*3/uL 150-450 [facility] Work Phone: Serum or plasma calcium lakeisha urement (mass/volume)on 01-16-2022 Calcium [Mass/Vol] 9.6 mg/dL 8.5-10.1 [facility] Work Phone: Serum or plasma creatinine m easurement (mass/volume)on 01-16-2022 Creatinine [Mass/Vol] 1.18 mg/dL 0.55-1.02 [facility] Work Phone: Comment on above: The validity of the calculated GFR & GFRAA in patients over 70 years has not been determined. Clinical correlation is essential. Serum or plasma urea nitroge n measurement (mass/volume)on 01-16-2022 Urea nitrogen [Mass/Vol] 30 mg/dL 7-18 [facility] Work Phone: Thin prep Papanicolaou smear with manual screeningon 01-16-2022 Thin prep Papanicolaou smear with manual screening 5 5-15 [facility] Work Phone: Absolute lymphocyte counton 12-25-2021 Lymphocytes Auto (Unsp spec) [#/Vol] 0.82 10*3/uL 0.83-4.51 [facility] Work Phone: Basophil percentageon 2021 Basophils/100 WBC (Bld) 0.5 % 0-1 [facility] Work Phone: Bilirubin [Mass/Vol] 0.50 mg/dL 0.20-1.00 [facility] Work Phone: Comment on above: For patients on eltr ombopag therapy, use of Dimension [place] TBIL is not recommended. Chloride [Moles/Vol] 104 mmol/L 98-107 [facility] Work Phone: Eosinophils/100 WBC (Bld) 2.3 % 0-5 [facility] Work Phone: Glucose [Mass/Vol] 94 mg/dL 74-106 [facility] Work Phone: Neutrophils (Bld) [#/Vol] 4.1 10*3/uL 2.0-7.7 [facility] Work Phone: Neutrophils/100 WBC (Bld) 71.4 % 47-70 [facility] Work Phone: Potassium [Moles/Vol] 4.0 mmol/L 3.5-5.1 [facility] Work Phone: Protein [Mass/Vol] 7.4 g/dL 6.4-8.2 [facility] Work Phone: Sodium [Moles/Vol] 138 mmol/L 136-145 [facility] Work Phone: WBC (Bld) [#/Vol] 5.8 10*3/uL 4.4-11.0 [facility] Work Phone: Blood erythrocytes count (nu mber/volume)on 12-25-2021 RBC (Bld) [#/Vol] 4.21 10*6/uL 4.2-5.4 [facility] Work Phone: Blood hemoglobin measurement (mass/volume)on 12-25-2021 Hemoglobin (Bld) [Mass/Vol] 11.9 g/dL 12.0-15.0 [facility] Work Phone: Blood lymphocytes/100 leukoc yteson 12-25-2021 Lymphocytes/100 WBC (Bld) 14.2 % 19-41 [facility] Work Phone: Blood monocytes/100 leukocyt eson 12-25-2021 Monocytes/100 WBC (Bld) 11.3 % 0-10 [facility] Work Phone: Blood platelet mean volumeon 12-25-2021 Platelet mean volume (Bld) [Entitic vol] 11.0 fL 6.2-12.0 [facility] Work Phone: [phone] Determination of erythrocyte mean corpuscular volume (MCV)on 12-25-2021 MCV (RBC) [Entitic vol] 90.3 fL 81-99 [facility] Work Phone: Hematocrit Auto (Bld) [Volum e fraction]on 12-25-2021 Hematocrit (Bld) [Volume fraction] 38.0 % 37-47 [facility] Work Phone: Laboratory - Chemistry and C hemistry - challengeon 12-25-2021 ALP [Catalytic activity/Vol] 71 U/L 45-117 [facility] Work Phone: ALT [Catalytic activity/Vol] 16 U/L 13-56 [facility] Work Phone: CO2 [Moles/Vol] 28.0 mmol/L 21.0-32.0 [facility] Work Phone: Globulin (S) [Mass/Vol] 4.0 g/dL 2.2-4.2 [facility] Work Phone: [phone] Magnesium [Mass/Vol] 2.3 mg/dL 1.6-2.6 [facility] Work Phone: [phone] Natriuretic peptide B (Bld) [Mass/Vol] 140.7 pg/mL 0-100 [facility] Work Phone: Urea nitrogen/Creatinine [Mass ratio] 21.5 mg/mg 10-20 [facility] Work Phone: [phone] Laboratory - Hematology and Cell countson 12-25-2021 Erythrocyte distribution width (RBC) [Entitic vol] 48.8 fL 35.1-43.9 [facility] Work Phone: Erythrocyte distribution width (RBC) [Ratio] 14.8 % 11.6-14.6 [facility] Work Phone: Immature granulocytes/100 WBC (Bld) 0.300 % 0.0-0.9 [facility] Work Phone: Comment on above: IG% - Immature Granu locytes (promyelocytes, myelocytes and metamyelocytes) > 1% indicates that a LEFT SHIFT is Present. MCH (RBC) [Entitic mass] 28.3 pg 27.0-32.0 [facility] Work Phone: Nucleated RBC/100 WBC (Bld) [Ratio] 0 % 0-5 [facility] Work Phone: MCHC Auto (RBC) [Mass/Vol]on 12-25-2021 MCHC (RBC) [Mass/Vol] 31.3 g/dL 32-36 [facility] Work Phone: No Panel Informationon 12-25 Estimated GFR (MDRD) Amer 63 mL/min >60 [facility] Work Phone: Comment on above: GFR Calc Estimated GFR (MDRD) Non-Af Amer 52 mL/min >60 [facility] Work Phone: Comment on above: Non- GFR Calc Parathyroid Hormone (Intact) 162.9 pg/mL 18.4-80.1 [facility] Work Phone: Vitamin D 25-Hydroxy 33.8 ng/mL [facility] Work Phone: Comment on above: Vitamin D 25(OH) Sta tus Range Deficiency <20 ng/mL (50nmol/L) Insufficiency 20 - 30 ng/mL (50 - 75 nmol/L) Sufficiency 30 - 100 ng/mL (75 - 250 nmol/L) Toxicity >100 ng/mL (>250 nmol/L) Platelets bldon 12-25-2021 Platelets (Bld) [#/Vol] 192 10*3/uL 150-450 [facility] Work Phone: Serum or plasma albumin lakeisha urement (mass/volume)on 12-25-2021 Albumin [Mass/Vol] 3.4 g/dL 3.2-5.0 [facility] Work Phone: Serum or plasma albumin/glob ulin mass ratioon 12-25-2021 Albumin/Globulin [Mass ratio] 0.8 {ratio} 0.9-2.4 [facility] Work Phone: Serum or plasma calcium lakeisha urement (mass/volume)on 12-25-2021 Calcium [Mass/Vol] 9.4 mg/dL 8.5-10.1 [facility] Work Phone: Serum or plasma creatinine m easurement (mass/volume)on 12-25-2021 Creatinine [Mass/Vol] 1.07 mg/dL 0.55-1.02 [facility] Work Phone: Comment on above: The validity of the calculated GFR & GFRAA in patients over 70 years has not been determined. Clinical correlation is essential. Serum or plasma urea nitroge n measurement (mass/volume)on 12-25-2021 Urea nitrogen [Mass/Vol] 23 mg/dL 7-18 [facility] Work Phone: Thin prep Papanicolaou smear with manual screeningon 12-25-2021 Thin prep Papanicolaou smear with manual screening 19 U/L 15-37 [facility] Work Phone: Thin prep Papanicolaou smear with manual screening 6 5-15 [facility] Work Phone: Absolute lymphocyte counton 11-08-2021 Lymphocytes Auto (Unsp spec) [#/Vol] 1.36 10*3/uL 0.83-4.51 [facility] Work Phone: Basophil percentageon 2021 Basophils/100 WBC (Bld) 0.8 % 0-1 [facility] Work Phone: Bilirubin [Mass/Vol] 0.60 mg/dL 0.20-1.00 [facility] Work Phone: Comment on above: For patients on eltr ombopag therapy, use of Dimension [place] TBIL is not recommended. Chloride [Moles/Vol] 104 mmol/L 98-107 [facility] Work Phone: Eosinophils/100 WBC (Bld) 1.5 % 0-5 [facility] Work Phone: Glucose [Mass/Vol] 84 mg/dL 74-106 [facility] Work Phone: Neutrophils (Bld) [#/Vol] 5.2 10*3/uL 2.0-7.7 [facility] Work Phone: Neutrophils/100 WBC (Bld) 69.4 % 47-70 [facility] Work Phone: Potassium [Moles/Vol] 4.4 mmol/L 3.5-5.1 [facility] Work Phone: Protein [Mass/Vol] 8.4 g/dL 6.4-8.2 [facility] Work Phone: Sodium [Moles/Vol] 137 mmol/L 136-145 [facility] Work Phone: WBC (Bld) [#/Vol] 7.5 10*3/uL 4.4-11.0 [facility] Work Phone: Blood erythrocytes count (nu mber/volume)on 11-08-2021 RBC (Bld) [#/Vol] 4.64 10*6/uL 4.2-5.4 [facility] Work Phone: Blood hemoglobin measurement (mass/volume)on 11-08-2021 Hemoglobin (Bld) [Mass/Vol] 13.0 g/dL 12.0-15.0 [facility] Work Phone: Blood lymphocytes/100 leukoc yteson 11-08-2021 Lymphocytes/100 WBC (Bld) 18.1 % 19-41 [facility] Work Phone: Blood monocytes/100 leukocyt eson 11-08-2021 Monocytes/100 WBC (Bld) 9.8 % 0-10 [facility] Work Phone: Blood platelet mean volumeon 11-08-2021 Platelet mean volume (Bld) [Entitic vol] 10.8 fL 6.2-12.0 [facility] Work Phone: Determination of erythrocyte mean corpuscular volume (MCV)on 11-08-2021 MCV (RBC) [Entitic vol] 88.8 fL 81-99 [facility] Work Phone: Hematocrit Auto (Bld) [Volum e fraction]on 11-08-2021 Hematocrit (Bld) [Volume fraction] 41.2 % 37-47 [facility] Work Phone: [phone] Laboratory - Chemistry and C hemistry - challengeon 11-08-2021 ALP [Catalytic activity/Vol] 78 U/L 45-117 [facility] Work Phone: ALT [Catalytic activity/Vol] 17 U/L 13-56 [facility] Work Phone: CO2 [Moles/Vol] 28.0 mmol/L 21.0-32.0 [facility] Work Phone: Globulin (S) [Mass/Vol] 4.6 g/dL 2.2-4.2 [facility] Work Phone: Urea nitrogen/Creatinine [Mass ratio] 27.5 mg/mg 10-20 [facility] Work Phone: Laboratory - Hematology and Cell countson 11-08-2021 Erythrocyte distribution width (RBC) [Entitic vol] 45.7 fL 35.1-43.9 [facility] Work Phone: Erythrocyte distribution width (RBC) [Ratio] 14.3 % 11.6-14.6 [facility] Work Phone: Immature granulocytes/100 WBC (Bld) 0.400 % 0.0-0.9 [facility] Work Phone: Comment on above: IG% - Immature Granu locytes (promyelocytes, myelocytes and metamyelocytes) > 1% indicates that a LEFT SHIFT is Present. MCH (RBC) [Entitic mass] 28.0 pg 27.0-32.0 [facility] Work Phone: Nucleated RBC/100 WBC (Bld) [Ratio] 0 % 0-5 [facility] Work Phone: MCHC Auto (RBC) [Mass/Vol]on 11-08-2021 MCHC (RBC) [Mass/Vol] 31.6 g/dL 32-36 [facility] Work Phone: No Panel Informationon 11-08 Estimated GFR (MDRD) Amer 45 mL/min >60 [facility] Work Phone: Comment on above: GFR Calc Estimated GFR (MDRD) Non-Af Amer 38 mL/min >60 [facility] Work Phone: Comment on above: Non- GFR Calc Urine Microalbumin/Creatinin e Ratio TNP [facility] Work Phone: Comment on above: Test not performed Platelets bldon 11-08-2021 Platelets (Bld) [#/Vol] 218 10*3/uL 150-450 [facility] Work Phone: Serum or plasma albumin lakeisha urement (mass/volume)on 11-08-2021 Albumin [Mass/Vol] 3.8 g/dL 3.2-5.0 [facility] Work Phone: Serum or plasma albumin/glob ulin mass ratioon 11-08-2021 Albumin/Globulin [Mass ratio] 0.8 {ratio} 0.9-2.4 [facility] Work Phone: Serum or plasma calcium lakeisha urement (mass/volume)on 11-08-2021 Calcium [Mass/Vol] 10.1 mg/dL 8.5-10.1 [facility] Work Phone: Serum or plasma creatinine m easurement (mass/volume)on 11-08-2021 Creatinine [Mass/Vol] 1.42 mg/dL 0.55-1.02 [facility] Work Phone: Comment on above: The validity of the calculated GFR & GFRAA in patients over 70 years has not been determined. Clinical correlation is essential. Serum or plasma urea nitroge n measurement (mass/volume)on 11-08-2021 Urea nitrogen [Mass/Vol] 39 mg/dL 7-18 [facility] Work Phone: Thin prep Papanicolaou smear with manual screeningon 11-08-2021 Thin prep Papanicolaou smear with manual screening 19 U/L 15-37 [facility] Work Phone: Thin prep Papanicolaou smear with manual screening 5 5-15 [facility] Work Phone: Thin prep Papanicolaou smear with manual screening < 5.0 mg/L NO RANGE EST. [facility] Work Phone: Urine creatinine measurement (mass/volume)on 11-08-2021 Creatinine (U) [Mass/Vol] 35.80 mg/dL NO RANGE EST. [facility] Work Phone: Absolute lymphocyte counton 10-24-2021 Lymphocytes Auto (Unsp spec) [#/Vol] 1.26 10*3/uL 0.83-4.51 [facility] Work Phone: Basophil percentageon 2021 Basophils/100 WBC (Bld) 0.6 % 0-1 [facility] Work Phone: Bilirubin [Mass/Vol] 0.30 mg/dL 0.20-1.00 [facility] Work Phone: Comment on above: For patients on eltr ombopag therapy, use of Dimension [place] TBIL is not recommended. Chloride [Moles/Vol] 103 mmol/L 98-107 [facility] Work Phone: Eosinophils/100 WBC (Bld) 1.6 % 0-5 [facility] Work Phone: Glucose [Mass/Vol] 89 mg/dL 74-106 [facility] Work Phone: Neutrophils (Bld) [#/Vol] 4.1 10*3/uL 2.0-7.7 [facility] Work Phone: Neutrophils/100 WBC (Bld) 64.7 % 47-70 [facility] Work Phone: Potassium [Moles/Vol] 3.4 mmol/L 3.5-5.1 [facility] Work Phone: Protein [Mass/Vol] 6.6 g/dL 6.4-8.2 [facility] Work Phone: Sodium [Moles/Vol] 137 mmol/L 136-145 [facility] Work Phone: WBC (Bld) [#/Vol] 6.3 10*3/uL 4.4-11.0 [facility] Work Phone: Blood erythrocytes count (nu mber/volume)on 10-24-2021 RBC (Bld) [#/Vol] 3.99 10*6/uL 4.2-5.4 [facility] Work Phone: Blood hemoglobin measurement (mass/volume)on 10-24-2021 Hemoglobin (Bld) [Mass/Vol] 11.2 g/dL 12.0-15.0 [facility] Work Phone: Blood lymphocytes/100 leukoc yteson 10-24-2021 Lymphocytes/100 WBC (Bld) 19.9 % 19-41 [facility] Work Phone: Blood monocytes/100 leukocyt eson 10-24-2021 Monocytes/100 WBC (Bld) 12.7 % 0-10 [facility] Work Phone: Blood platelet mean volumeon 10-24-2021 Platelet mean volume (Bld) [Entitic vol] 11.0 fL 6.2-12.0 [facility] Work Phone: Determination of erythrocyte mean corpuscular volume (MCV)on 10-24-2021 MCV (RBC) [Entitic vol] 88.5 fL 81-99 [facility] Work Phone: Hematocrit Auto (Bld) [Volum e fraction]on 10-24-2021 Hematocrit (Bld) [Volume fraction] 35.3 % 37-47 [facility] Work Phone: [phone] Laboratory - Chemistry and C hemistry - challengeon 10-24-2021 ALP [Catalytic activity/Vol] 69 U/L 45-117 [facility] Work Phone: ALT [Catalytic activity/Vol] 20 U/L 13-56 [facility] Work Phone: CO2 [Moles/Vol] 28.0 mmol/L 21.0-32.0 [facility] Work Phone: [phone] Globulin (S) [Mass/Vol] 3.9 g/dL 2.2-4.2 [facility] Work Phone: Urea nitrogen/Creatinine [Mass ratio] 21.5 mg/mg 10-20 [facility] Work Phone: Laboratory - Hematology and Cell countson 10-24-2021 Erythrocyte distribution width (RBC) [Entitic vol] 46.7 fL 35.1-43.9 [facility] Work Phone: Erythrocyte distribution width (RBC) [Ratio] 14.5 % 11.6-14.6 [facility] Work Phone: Immature granulocytes/100 WBC (Bld) 0.500 % 0.0-0.9 [facility] Work Phone: Comment on above: IG% - Immature Granu locytes (promyelocytes, myelocytes and metamyelocytes) > 1% indicates that a LEFT SHIFT is Present. MCH (RBC) [Entitic mass] 28.1 pg 27.0-32.0 [facility] Work Phone: Nucleated RBC/100 WBC (Bld) [Ratio] 0 % 0-5 [facility] Work Phone: MCHC Auto (RBC) [Mass/Vol]on 10-24-2021 MCHC (RBC) [Mass/Vol] 31.7 g/dL 32-36 [facility] Work Phone: No Panel Informationon 10-24 Estimated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 in D5W 100 mL 20-120 mEq INTRAVENOUS PRNmagnesium sulfate in water 2 g in sterile water 50 ml 2 g INTRAVENOUS PRNsodium phosphate 45 mmol in NaCl 0.9% 250 mL 45 mmol INTRAVENOUS PRNcalcium gluconate 4 g in D5W 250 mL 4 g INTRAVENOUS PRNlactated ringers infusion 100 mL/hr INTRAVENOUS CONTINUOUSipratropium-albute rol 3 mL nebulizer solution (DUONEB) 3 mL INHALATION q 4 H PRNdocusate sodium 100 mg cap(s) (COLACE) 100 mg ORAL BID PRNcholecalciferol 1,000 Units tab(s) (VITAMIN D3) 1,000 Units ORAL DAILYvalsartan 80 mg tab(s) (DIOVAN) 80 mg ORAL DAILYHydrochlorothiazide 12.5 mg 12.5 mg ORAL DAILYOBJECTIVEVITAL SIGNSBP 155/71 Pulse 102 Temp (Src) 98.1 (Temporal Artery) Resp 15 Ht 5' 0(1.52m) Wt 168 lb 6.9 oz (76.4kg) SpO2 93% BMI 32.89 kg/(m2).Temp (24hrs), Av.6 ?C (97.8 ?F), Min:36.1 ?C (97 ?F), Max:36.9 ?C (98.5 ?F)Date 07/03/17 07 - 07/04/17 0659 07/04/17 07 - 07/05/17 0659Shift 5900-5412 6831-5271 4114-0255 24 Hour Total 6170-6316 4824-4730 2300-389701 Hour TotalINTAKE PO 200 200 PO 200 200 IV 2013 170 1432 3615 IVPB 250 250 Magnesium IVPB 100 100 LR 7515 761 1915 3012 Calcium IVPB 250 250 HYDROmorphone Volume 3 3 Shift Total 2213 170 1432 3815OUTPUT Urine 665 982 008 0978 Tube Output ( Indwelling Urinary Catheter 07/02/17 1346 Admission tospital Marie 16 Fr) 665 418 264 7549 # of BMs Number of BMs 0 x 0 x 0 x Shift Total 665 310 925 1900Weight (kg) 76.4 76.4 76.4 76.4 76.4 76.4 76.4 76.4NEURO: Alert AND Oriented x 3, GCS 15, Cranial Nerves II-XII Intact, Moves AllExtremities, Strength Symmetrical, No Sensory DeficitsHEENT:?Head: Scalp avulsion s/p sutures. Wound edges C/D/I. No bony step offs,midface stable to palpationNECK:?No midline pain with palpationRESPIRATORY: No abrasions or contusionsCARDIOVASCULAR:?Ta chycardiaABDOMEN: Non-distended, mildly tender in LLQPELVIC/PERINEAL:?Pelvis stable to palpation, No blood noted at urethra meatus,Rectal exam with positive tone and negative for blood, pain in L hip topalpationBACK/SPINE:?No step off or deformity noted, No external injury noted,Cervical/thoracic spine tender to palpationEXTREMITIES:?Hand/W rist left with ecchymosis, non-tender, Thigh/Hip lefttendernessGU: clear and yellowDATA:Diagnostic tests reviewed for today's visit:Recent Labs 07/03/1703CREAT 0.61 0.55 0.70BUN 19* 13 13NA 136 139 138K 4.4 4.8 4.8CHLOR 103 108* 107CO2 20* 16* 20*ANION 17* 20* 16GLUC 81 107* 227*CA 7.4* 6.7* 7.9*P 2.6 2.2* --MG 2.0 1.2* --ALB -- -- 2.5*AST -- -- 31ALT -- -- 26ALKPHOS -- -- 71TBILI -- -- 0.4WBC -- 14.54* 23.00*HB -- 8.1* 11.3HCT -- 25.5* 35.0PLT -- 123* 193ImagingMRI C Spine:?Examination is limited due to patient motion artifact.No definite cervical cord contusion.Multilevel cervical muscle strain and/or ligamentous injury.C1 posterior ring, dens process, C2 spinous process, and T1 fractures are bettervisualized on the prior CT.T3 compression fracture.Multilevel cervical degenerative disc disease with at least mild multilevelcentral canal stenosis.Probable multilevel degenerative neural foraminal narrowing.ASSESSMENT/PLANThi s is a 76 year old female withACTIVE PROBLEM LISTPrimary Localized Osteoarthrosis, HandThrombocytopenia, UnspecifiedMalignant Neoplasm of Nipple and Areola of Female Breast (Hcc)Senile OsteoporosisOther and Unspecified HyperlipidemiaClosed Fracture of One Or More Phalanges of FootOther Primary CardiomyopathiesPOSITIVE STRESS TEST -CORONARY ATHEROSCLEROther and Unspecified Coagulation DefectsOther Malignant Neoplasm Without Specification of SiteDysphagiaUnspecified Vitamin D DeficiencyCyst and Pseudocyst of PancreasAtypical Endometrial Cells On Pap SmearPmb (Postmenopausal Bleeding)Fibroid UterusEndometrial Cancer (Hcc)Cyst in HandPersonal History of Malignant Neoplasm of UterusEsophagus, Martinez'sLumbago syndromeS/P Radiation TherapyLymphedema of LegBilateral Leg EdemaSacroiliac dysfunctionShoulder SprainIntertrochanteric Fracture of Left Femur (Hcc)C1 Cervical Fracture (Hcc)C2 Cervical Fracture (Hcc)Motor Vehicle AccidentTraumaNeuro -C-collar, maintain at all times -Neurochecks -Pain control: morphine 2-4mg q2h -MRI C-spine: multilevel cervical muscle strain and/or ligamentous injury.CV -HDS -Home Coreg, Digoxin, Lasix, HCTZ, ValsartanResp -Satting well with O2 in mouth at night -IS, encourage deep breathing -Duoneb q4hGU -Marie in place -LR @100 -Hypo-Ca: replaced this AMGI -Diet: DIET NPO for OR today -Zofran for nausea -Stress ulcer ppx: protonixHeme -Hgb pending (8.1 yesterday) -Daily checksEndo -Glucose checksID -WBC pending (14.5 yesterday) -No abxExt -L intertrochanteric fx -NWB LLE per ortho -Plan for IM nail this morningLines -PIVx2, FoleyDispo -NSICUDAILY ICU CHECKLIST:Pain addressed? Yes.Restraints? NoFoley? YesCentral Access Devices? NoDaily Sedation Holiday? NoVTE Prophylaxis. YesStress ulcer prophylaxis? Yes.Nutrition: Enteral- No. TPN- No. PO- No.Dispo needs assessed? Yes.SIGNATURE: Royal Vasques MD PATIENT NAME: Chema KoromaDATE: July 04, 2017 : 6:19 AM PAGER: [phone] MD Tiana 07/04/2017 7:41 AM Signed ANESTHESIOLOGY DAY OF SURGERY NOTESERVICE DATE: 07/04/2017SERVICE TIME: 7:37 AMDOB: 1940Procedure(s) (LRB):INSERTION NAIL / ANNABELLE INTRAMEDULLARY OPEN REDUCTION FEMUR (Left)Surgeon(s):Alecia Swann body mass index is 32.89 kg/(m2) as calculated from the following: Height as of this encounter: 152.4 cm (5'). Weight as of this encounter: 76.4 kg (168 lb 6.9 oz).Most recent hematocrit and potassium results:Hematocrit 25.5 07/03/2017Potassium 4.4 07/04/2017ANES DOS/PREOP NOTE:Vitals: 400 500 07/04/1707BP: 154/55 141/51 155/71Pulse: 101 106 102Resp: 16 20 15Temp: 36.6 ?C (97.9 ?F)TempSrc: Temporal ArterySpO2: 93% 96% 93%Weight:Height:ACTIVE PROBLEM LISTPrimary Localized Osteoarthrosis, HandThrombocytopenia, UnspecifiedMalignant Neoplasm of Nipple and Areola of Female Breast (Hcc)Senile OsteoporosisOther and Unspecified HyperlipidemiaClosed Fracture of One Or More Phalanges of FootOther Primary CardiomyopathiesPOSITIVE STRESS TEST -CORONARY ATHEROSCLEROther and Unspecified Coagulation DefectsOther Malignant Neoplasm Without Specification of SiteDysphagiaUnspecified Vitamin D DeficiencyCyst and Pseudocyst of PancreasAtypical Endometrial Cells On Pap SmearPmb (Postmenopausal Bleeding)Fibroid UterusEndometrial Cancer (Hcc)Cyst in HandPersonal History of Malignant Neoplasm of UterusEsophagus, Martinez'sLumbago syndromeS/P Radiation TherapyLymphedema of LegBilateral Leg EdemaSacroiliac dysfunctionShoulder SprainIntertrochanteric Fracture of Left Femur (Hcc)C1 Cervical Fracture (Hcc)C2 Cervical Fracture (Hcc)Motor Vehicle AccidentTraumaPAST MEDICAL HISTORYDiagnosis Date- Abnormal Pap smear of cervix 2009 atypical glandular cells- Acute, but ill-defined, cerebrovascular disease- Diverticulosis of colon (without mention of hemorrhage)- Endometrial adenocarcinoma (HCC) 11/2010- Esophageal reflux Gastroesophageal reflux- HTN (hypertension)- Malignant neoplasm of breast (female), unspecified site 1991 Breast cancer- Mixed hyperlipidemia Hyperlipidemia- Osteoarthrosis, unspecified whether generalized or localized, other specifiedsites Osteoarthritis KNEE- Other primary cardiomyopathies Cardiomyopathy- PMH - PAST MEDICAL HISTORY 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- Unspecified visual loss Blindness LEFT EYE- Uterine fibroidPAST SURGICAL HISTORYProcedure Laterality Date- BREAST PROSTHESIS, NOS- COLONOSCOP W/ OR W/O BRSH SPEC 07/09/2012 Colonoscopy- COLONOSCOPY 05/24/03- DANDC, DIAG AND/OR THERAPEUTIC 1996- EGD 12/06/04- EGD W/O OR W/BRUSH/WASH 07/09/2012 barretts- HYSTEROSCOPY, SURGICAL; WITH SAMPLI 2002- HYSTEROSCOPY, SURGICAL; WITH SAMPLI 12/12/10- MASTECTOMY,SIMPLE 1992FAMILY HISTORYProblem Relation Age of Onset- Heart Mother age 93- Prostate Cancer Father age 71- Breast Cancer Maternal Aunt 70's- Hypertension Mother- Thyroid Mother- Breast Cancer Other M. Cousin age 45Social History:Social HistorySubstance Use Topics- Smoking status: Never Smoker- Smokeless tobacco: Never Used- Alcohol use NoNo current facility-administered medications on file prior to encounter.Current Outpatient Prescriptions on File Prior to Encounter:pantoprazole (PROTONIX) 40 mg tablet Take 1 tablet by mouth once daily. (may usegeneric)DIGOXIN 250 MCG TAB Take one(1) tablet daily.Current Facility-Administered Medications:calcium gluconate 1 g in NaCl 0.9% 250 mL 1 g INTRAVENOUS ONCE Royal (Res)Henryondansetron (PF) 4 mg injection (ZOFRAN) 4 mg INTRAVENOUS q 6 H PRN Royal(Res) Henrymorphine 2-4 mg injection 2-4 mg INTRAVENOUS q 2 H PRN Blake (Res) Santoshzowsrosalind 2mg at 07/04/17 0243carvedilol 25 mg tab(s) (COREG) 25 mg ORAL BID w MEALS Blake (Elizabeth) Santoshzowski 25mg at 07/03/17 0923digoxin 0.25 mg tab(s) (LANOXIN) 0.25 mg ORAL DAILY Blake (Res) Santoshzowski 0.25mg at 07/03/17 0924furosemide 40 mg tab(s) (more content not included)... [facility] PROCEDUREon 07-02-2017 PROCEDURE HNO ID: [id number] thor: Blake AvilezService: TraumaAuthor Type: ResidentType: ProceduresFiled: 07/02/2017 4:47 PMNote Text:BEDSIDE PROCEDURE NOTEPROCEDURE DATE: July 02, 2017PROCEDURE START TIME: 16:20PRIMARY PROCEDURALIST: SAYDA HernandezISTANT(S): NoneINFORMED CONSENT: Verbal consent obtained.UNIVERSAL PROTOCOL / SAFETY CHECKLISTSign in Communication: CompletedTime Out: Team Confirms the Correct Patient, Correct Procedure, CorrectSite and Site Marking, Correct Position (if applicable), Prep and Dry Time(if applicable). Time: N/AAffirmation of Time Out: YESSign Out Discussion: CompletedPROCEDURE: Complex wound closure.Approximately 40 cm crescent shaped scalp laceration approximated usingthirteen 3-0 nylon horizontal mattress sutures. [place] re-approximatedusing eight 4-0 simple vicryl sutures. The wound was washed with 400 ccof NS and 40 cc of lidocaine used for local anesthetic.SIGNATURE: Blake Lloyd MD PATIENT NAME: Chema KoromaDATE: July 02, 2017 : 4:43 PM PAGER/CONTACT #: [phone] [facility] No Panel Information SARS-CoV-2 & FLU Antigen (Rapid) SARS-CoV-2 (COVID 19) [facility] Work Phone: SARS-CoV-2 & FLU Antigen (Rapid) [facility] Work Phone: Vital Signs Date Time Vital Sign Value Performing Clinician Facility 03-02-2025 15:00-0400 Respiratory rate 18 /min Dr. Jason Benitez MD Work Phone: [facility] 03-02-2025 15:00-0400 SaO2% (BldA) [Mass fraction] 100 % Dr. Jason Benitez MD Work Phone: [facility] 03-02-2025 14:30-0400 Body temperature 96.9 [degF] Dr. Jason Benitez MD Work Phone: [facility] 03-02-2025 14:30-0400 Diastolic blood pressure 96 mm[Hg] Dr. Jason Benitez MD Work Phone: [facility] 03-02-2025 14:30-0400 Heart rate 67 /min Dr. Jason Benitez MD Work Phone: [facility] 03-02-2025 14:30-0400 Systolic blood pressure 148 mm[Hg] Dr. Jason Benitez MD Work Phone: [facility] 03-02-2025 11:24-0400 Body mass index (BMI) [Ratio] 37.5 kg/m2 Dr. Jason Benitez MD Work Phone: [facility] 03-02-2025 11:24-0400 Body weight 84.[address] Jason Benitez MD Work Phone: 8(420)752-404449 [place] [address] 03-02-2025 10:13-0400 Body height 149.[address] Jason Benitez MD Work Phone: 1(414)205-994949 [place] [address] 11-10-2024 18:51-0400 Body temperature 98 [degF] Dr. Jason Benitez MD Work Phone: 9(551)798-980184 [place] [address] 11-10-2024 18:51-0400 Diastolic blood pressure 74 mm[Hg] Dr. Jason Benitez MD Work Phone: 5(159)116-677484 [place] [address] 11-10-2024 18:51-0400 Heart rate 78 /min Dr. Jason Benitez MD Work Phone: 9(755)840-174784 [place] [address] 11-10-2024 18:51-0400 Respiratory rate 16 /min Dr. Jason Benitez MD Work Phone: 6(791)697-770584 [place] [address] 11-10-2024 18:51-0400 SaO2% (BldA) [Mass fraction] 97 % Dr. Jason Benitez MD Work Phone: 3(937)332-513549 [place] [address] 11-10-2024 18:51-0400 Systolic blood pressure 149 mm[Hg] Dr. Jason Benitez MD Work Phone: 5(858)431-080584 [place] [address] 11-10-2024 17:00-0400 Inhaled oxygen flow rate 3 L/min Dr. Jason Benitez MD Work Phone: 0(381)288-564284 [place] [address] 11-10-2024 14:21-0400 Body mass index (BMI) [Ratio] 36.4 kg/m2 Dr. Jason Benitez MD Work Phone: 2(375)557-212249 [place] [address] 11-10-2024 14:21-0400 Body weight 84.[address] Jason Benitez MD Work Phone: 9(035)276-710484 [place] [address] 11-10-2024 14:18-0400 Body height 152.[address] Jason Benitez MD Work Phone: 6(311)929-457084 [place] [address] 08-29-2023 16:11-0500 Body height 149.[address] Jason Benitez Work Phone: 7(103)312-065584 [place] [address] 08-29-2023 16:11-0500 Body mass index (BMI) [Ratio] 37.3 kg/m2 Dr. Jason Benitez Work Phone: [facility] 08-29-2023 16:11-0500 Body temperature 98.2 [degF] Dr. Jason Benitez Work Phone: [facility] 08-29-2023 16:11-0500 Body weight 83.[address] Jason Benitez Work Phone: [facility] 08-29-2023 16:11-0500 Diastolic blood pressure 84 mm[Hg] Dr. Jason Benitez Work Phone: [facility] 08-29-2023 16:11-0500 Heart rate 94 /min Dr. Jason Benitez Work Phone: 7(946)889-122849 [place] [address] 08-29-2023 16:11-0500 Respiratory rate 14 /min Dr. Jason Benitez Work Phone: [facility] 08-29-2023 16:11-0500 SaO2% (BldA) [Mass fraction] 100 % Dr. Jason Benitez Work Phone: [facility] 08-29-2023 16:11-0500 Systolic blood pressure 132 mm[Hg] Dr. Jason Benitez Work Phone: [facility] 05-24-2023 08:03-0400 Body mass index (BMI) [Ratio] 36.8 kg/m2 Dr. Jason eBnitez Work Phone: [facility] 05-24-2023 08:03-0400 Body weight 82.[address] Jason Benitez Work Phone: [facility] 05-24-2023 07:17-0400 Body height 149.[address] Jason Benitez Work Phone: [facility] 05-24-2023 07:17-0400 Body temperature 97.5 [degF] Dr. Jaosn Benitez Work Phone: [facility] 05-24-2023 07:17-0400 Diastolic blood pressure 88 mm[Hg] Dr. Jason Benitez Work Phone: [facility] 05-24-2023 07:17-0400 Heart rate 75 /min Dr. Jason Benitez Work Phone: [facility] 05-24-2023 07:17-0400 Respiratory rate 16 /min Dr. Jason Benitez Work Phone: [facility] 05-24-2023 07:17-0400 SaO2% (BldA) [Mass fraction] 98 % Dr. Jason Benitez Work Phone: [facility] 05-24-2023 07:17-0400 Systolic blood pressure 139 mm[Hg] Dr. Jason Benitez Work Phone: [facility] 04-19-2023 16:51-0400 Body temperature 99.1 [degF] Dr. Jason Benitez Work Phone: [facility] 04-19-2023 16:51-0400 Diastolic blood pressure 83 mm[Hg] Dr. Jason Benitez Work Phone: [facility] 04-19-2023 16:51-0400 Heart rate 83 /min Dr. Jason Benitez Work Phone: [facility] 04-19-2023 16:51-0400 Respiratory rate 18 /min Dr. Jason Benitez Work Phone: [facility] 04-19-2023 16:51-0400 SaO2% (BldA) [Mass fraction] 98 % Dr. Jason Benitez Work Phone: [facility] 04-19-2023 16:51-0400 Systolic blood pressure 153 mm[Hg] Dr. Jason Benitez Work Phone: [facility] 04-19-2023 06:00-0400 Body mass index (BMI) [Ratio] 35.6 kg/m2 Dr. Jason Benitez Work Phone: [facility] 04-19-2023 06:00-0400 Body weight 80.[address] Jason Benitez Work Phone: [facility] 04-15-2023 16:08-0400 Body height 150.[address] Jason Benitez Work Phone: [facility] 04-15-2023 15:32-0400 Body temperature 97.2 [degF] Dr. Jason Benitez Work Phone: [facility] 04-15-2023 15:32-0400 Diastolic blood pressure 60 mm[Hg] Dr. Jason Benitez Work Phone: [facility] 04-15-2023 15:32-0400 Heart rate 80 /min Dr. Jason Benitez Work Phone: [facility] 04-15-2023 15:32-0400 Respiratory rate 18 /min Dr. Jason Benitez Work Phone: [facility] 04-15-2023 15:32-0400 SaO2% (BldA) [Mass fraction] 95 % Dr. Jason Benitez Work Phone: [facility] 04-15-2023 15:32-0400 Systolic blood pressure 152 mm[Hg] Dr. Jason Benitez Work Phone: [facility] 04-15-2023 08:49-0400 Body height 150.[address] Jason Benitez Work Phone: [facility] 04-05-2023 14:24-0400 Body temperature 96.2 [degF] Dr. Jason Benitez Work Phone: [facility] 04-05-2023 14:24-0400 Diastolic blood pressure 93 mm[Hg] Dr. Jason Benitez Work Phone: [facility] 04-05-2023 14:24-0400 Heart rate 114 /min Dr. Jason Benitez Work Phone: [facility] 04-05-2023 14:24-0400 Respiratory rate 20 /min Dr. Jason Benitez Work Phone: [facility] 04-05-2023 14:24-0400 SaO2% (BldA) [Mass fraction] 98 % Dr. Jason Benitez Work Phone: [facility] 04-05-2023 14:24-0400 Systolic blood pressure 106 mm[Hg] Dr. Jason Benitez Work Phone: [facility] 04-05-2023 00:46-0400 Diastolic blood pressure 61 mm[Hg] Dr. Jason Benitez Work Phone: [facility] 04-05-2023 00:46-0400 Heart rate 97 /min Dr. Jason Benitez Work Phone: [facility] 04-05-2023 00:46-0400 Systolic blood pressure 140 mm[Hg] Dr. Jason Benitez Work Phone: 8(885)436-418524 [address] 04-04-2023 22:00-0400 Respiratory rate 20 /min Dr. Jason Benitez Work Phone: 8(816)027-963524 [address] 04-04-2023 20:02-0400 Body mass index (BMI) [Ratio] 38.5 kg/m2 Dr. Jason Benitez Work Phone: [facility] 04-04-2023 20:02-0400 Body weight 86.[address] Jason Benitez Work Phone: [facility] 04-04-2023 19:32-0400 Body temperature 97.4 [degF] Dr. Jason Benitez Work Phone: [facility] 04-04-2023 19:32-0400 SaO2% (BldA) [Mass fraction] 100 % Dr. Jason Benitez Work Phone: [facility] 03-19-2023 17:00-0400 Body temperature 97.9 [degF] Dr. Jason Benitez Work Phone: [facility] 03-19-2023 17:00-0400 Diastolic blood pressure 47 mm[Hg] Dr. Jason Benitez Work Phone: [facility] 03-19-2023 17:00-0400 Heart rate 100 /min Dr. Jason Benitez Work Phone: [facility] 03-19-2023 17:00-0400 Respiratory rate 18 /min Dr. Jason Benitez Work Phone: [facility] 03-19-2023 17:00-0400 SaO2% (BldA) [Mass fraction] 100 % Dr. Jason Benitez Work Phone: [facility] 03-19-2023 17:00-0400 Systolic blood pressure 129 mm[Hg] Dr. Jason Benitez Work Phone: [facility] 03-18-2023 12:57-0400 Body weight [address] Jason Benitez Work Phone: [facility] 03-18-2023 03:31-0400 Inhaled oxygen concentration 96 % Dr. Jason Benitez Work Phone: [facility] 03-17-2023 21:58-0400 Inhaled oxygen flow rate 2 L/min Dr. Jason Benitez Work Phone: [facility] 03-17-2023 16:03-0400 Body mass index (BMI) [Ratio] 38.2 kg/m2 Dr. Jason Benitez Work Phone: [facility] 03-12-2023 15:33-0400 Diastolic blood pressure 77 mm[Hg] Dr. Jason Benitez Work Phone: [facility] 03-12-2023 15:33-0400 Heart rate 65 /min Dr. Jason Benitez Work Phone: [facility] 03-12-2023 15:33-0400 Respiratory rate 18 /min Dr. Jason Benitez Work Phone: [facility] 03-12-2023 15:33-0400 SaO2% (BldA) [Mass fraction] 97 % Dr. Jason Benitez Work Phone: [facility] 03-12-2023 15:33-0400 Systolic blood pressure 132 mm[Hg] Dr. Jason Benitez Work Phone: [facility] 02-26-2023 19:00-0400 Body mass index (BMI) [Ratio] 38.5 kg/m2 Dr. Jason Benitez Work Phone: [facility] 02-26-2023 19:00-0400 Body weight 86.[address] Jason Benitez Work Phone: [facility] 02-26-2023 19:00-0400 SaO2% (BldA) [Mass fraction] 98 % Dr. Jason Benitez Work Phone: [facility] 02-26-2023 18:37-0400 Body temperature 97.5 [degF] Dr. Jason Benitez Work Phone: [facility] 02-26-2023 18:37-0400 Diastolic blood pressure 61 mm[Hg] Dr. Jason Benitez Work Phone: [facility] 02-26-2023 18:37-0400 Heart rate 76 /min Dr. Jason Benitez Work Phone: [facility] 02-26-2023 18:37-0400 Respiratory rate 18 /min Dr. Jason Benitez Work Phone: [facility] 02-26-2023 18:37-0400 Systolic blood pressure 156 mm[Hg] Dr. Jason Benitez Work Phone: [facility] 01-15-2023 22:49-0400 Diastolic blood pressure 78 mm[Hg] Dr. Jason Benitez Work Phone: [facility] 01-15-2023 22:49-0400 Systolic blood pressure 124 mm[Hg] Dr. Jason Benitez Work Phone: [facility] 01-15-2023 20:16-0400 Heart rate 79 /min Dr. Jason Benitez Work Phone: [facility] 01-15-2023 20:16-0400 Respiratory rate 18 /min Dr. Jason Benitez Work Phone: [facility] 01-15-2023 20:16-0400 SaO2% (BldA) [Mass fraction] 98 % Dr. Jason Benitez Work Phone: [facility] 01-15-2023 18:17-0400 Body temperature 97.8 [degF] Dr. Jason Benitez Work Phone: [facility] 01-15-2023 18:15-0400 Body mass index (BMI) [Ratio] 39.7 kg/m2 Dr. Jason Benitez Work Phone: [facility] 01-15-2023 18:15-0400 Body weight 92.[address] Jason Benitez Work Phone: [facility] 11-27-2022 15:25-0400 Body height 152.[address] Jason Benitez Work Phone: [facility] 11-27-2022 15:25-0400 Body mass index (BMI) [Ratio] 37.5 kg/m2 Dr. Jason Benitez Work Phone: [facility] 11-27-2022 15:25-0400 Body weight 87.[address] Jason Benitez Work Phone: [facility] 11-27-2022 15:25-0400 Diastolic blood pressure 67 mm[Hg] Dr. Jason Benitez Work Phone: [facility] 11-27-2022 15:25-0400 Heart rate 74 /min Dr. Jason Benitez Work Phone: [facility] 11-27-2022 15:25-0400 Respiratory rate 20 /min Dr. Jason Benitez Work Phone: [facility] 11-27-2022 15:25-0400 SaO2% (BldA) [Mass fraction] 99 % Dr. Jason Benitez Work Phone: [facility] 11-27-2022 15:25-0400 Systolic blood pressure 134 mm[Hg] Dr. Jason Benitez Work Phone: [facility] 05-20-2022 22:02-0400 Diastolic blood pressure 61 mm[Hg] Dr. Jason Benitez Work Phone: [facility] Work Phone: 05-20-2022 22:02-0400 Heart rate 79 /min Dr. Jason Benitez Work Phone: [facility] Work Phone: 05-20-2022 22:02-0400 Systolic blood pressure 147 mm[Hg] Dr. Jason Benitez Work Phone: [facility] Work Phone: 05-20-2022 20:25-0400 Body height 152.[address] Jason Benitez Work Phone: [facility] Work Phone: 05-20-2022 20:25-0400 Body mass index (BMI) [Ratio] 35.3 kg/m2 Dr. Jason Benitez Work Phone: [facility] Work Phone: 05-20-2022 20:25-0400 Body temperature 97 [degF] Dr. Jason Benitez Work Phone: [facility] Work Phone: 05-20-2022 20:25-0400 Body weight 82.[address] Jason Benitez Work Phone: [facility] Work Phone: 05-20-2022 20:25-0400 Respiratory rate 18 /min Dr. Jason Benitez Work Phone: [facility] Work Phone: 05-20-2022 20:25-0400 SaO2% (BldA) [Mass fraction] 100 % Dr. Jason Benitez Work Phone: [facility] Work Phone: 05-16-2022 13:44-0400 Body mass index (BMI) [Ratio] 37 kg/m2 Dr. Jason Benitez Work Phone: [facility] Work Phone: 05-16-2022 13:44-0400 Body weight 86.[address] Jason Benitez Work Phone: [facility] Work Phone: 05-16-2022 13:44-0400 Diastolic blood pressure 65 mm[Hg] Dr. Jason Benitez Work Phone: [facility] Work Phone: 05-16-2022 13:44-0400 Heart rate 62 /min Dr. Jason Benitez Work Phone: [facility] Work Phone: 05-16-2022 13:44-0400 Respiratory rate 18 /min Dr. Jason Benitez Work Phone: [facility] Work Phone: 05-16-2022 13:44-0400 Systolic blood pressure 142 mm[Hg] Dr. Jason Benitez Work Phone: [facility] Work Phone: 05-08-2022 15:27-0400 Diastolic blood pressure 70 mm[Hg] Dr. Jason Benitez Work Phone: [facility] Work Phone: 05-08-2022 15:27-0400 Heart rate 60 /min Dr. Jason Benitez Work Phone: [facility] Work Phone: 05-08-2022 15:27-0400 Respiratory rate 18 /min Dr. Jason Benitez Work Phone: [facility] Work Phone: 05-08-2022 15:27-0400 SaO2% (BldA) [Mass fraction] 98 % Dr. Jason Benitez Work Phone: [facility] Work Phone: 05-08-2022 15:27-0400 Systolic blood pressure 143 mm[Hg] Dr. Jason Benitez Work Phone: [facility] Work Phone: 05-08-2022 13:18-0400 Body height 152.[address] aJson Benitez Work Phone: [facility] Work Phone: 05-08-2022 13:18-0400 Body mass index (BMI) [Ratio] 35.2 kg/m2 Dr. Jason Benitez Work Phone: [facility] Work Phone: 05-08-2022 13:18-0400 Body temperature 97 [degF] Dr. Jason Benitez Work Phone: [facility] Work Phone: 05-08-2022 13:18-0400 Body weight 81.[address] Jason Benitez Work Phone: [facility] Work Phone: 04-16-2022 13:01-0400 Body mass index (BMI) [Ratio] 36.7 kg/m2 Dr. Jason Benitez Work Phone: [facility] Work Phone: 04-16-2022 13:01-0400 Body weight 85.[address] Jason Benitez Work Phone: [facility] Work Phone: 02-28-2022 14:21-0400 Body mass index (BMI) [Ratio] 35.7 kg/m2 Dr. Jason Benitez Work Phone: [facility] Work Phone: 02-28-2022 14:21-0400 Body weight [address] Jason Benitez Work Phone: [facility] Work Phone: 02-28-2022 14:21-0400 Diastolic blood pressure 56 mm[Hg] Dr. Jason Benitez Work Phone: [facility] Work Phone: 02-28-2022 14:21-0400 Heart rate 80 /min Dr. Jason Benitez Work Phone: [facility] Work Phone: 02-28-2022 14:21-0400 Respiratory rate 18 /min Dr. Jason Benitez Work Phone: [facility] Work Phone: 02-28-2022 14:21-0400 Systolic blood pressure 113 mm[Hg] Dr. Jason Benitez Work Phone: [facility] Work Phone: 01-18-2022 17:17-0400 Diastolic blood pressure 87 mm[Hg] Dr. Jason Benitez Work Phone: [facility] Work Phone: 01-18-2022 17:17-0400 Heart rate 79 /min Dr. Jason Benitez Work Phone: [facility] Work Phone: 01-18-2022 17:17-0400 Respiratory rate 16 /min Dr. Jason Benitez Work Phone: [facility] Work Phone: 01-18-2022 17:17-0400 SaO2% (BldA) [Mass fraction] 99 % Dr. Jason Benitez Work Phone: [facility] Work Phone: 01-18-2022 17:17-0400 Systolic blood pressure 144 mm[Hg] Dr. Jason Benitez Work Phone: [facility] Work Phone: 01-18-2022 13:38-0400 Body temperature 96.9 [degF] Dr. Jason Benitez Work Phone: [facility] Work Phone: 01-18-2022 13:34-0400 Body height 152.[address] Jason Benitez Work Phone: [facility] Work Phone: 01-18-2022 13:34-0400 Body mass index (BMI) [Ratio] 36.1 kg/m2 Dr. Jason Benitez Work Phone: [facility] Work Phone: 01-18-2022 13:34-0400 Body weight 83.[address] Jason Benitez Work Phone: [facility] Work Phone: 01-16-2022 17:31-0400 Diastolic blood pressure 84 mm[Hg] Dr. Jason Benitez Work Phone: [facility] Work Phone: 01-16-2022 17:31-0400 Heart rate 69 /min Dr. Jason Benitez Work Phone: [facility] Work Phone: 01-16-2022 17:31-0400 Respiratory rate 18 /min Dr. Jason Benitez Work Phone: [facility] Work Phone: 01-16-2022 17:31-0400 SaO2% (BldA) [Mass fraction] 98 % Dr. Jason Benitez Work Phone: [facility] Work Phone: 01-16-2022 17:31-0400 Systolic blood pressure 171 mm[Hg] Dr. Jason Benitez Work Phone: [facility] Work Phone: 01-16-2022 15:58-0400 Body temperature 98.2 [degF] Dr. Jason Benitez Work Phone: [facility] Work Phone: 01-16-2022 15:01-0400 Body height 149.[address] Jason Benitez Work Phone: [facility] Work Phone: 01-16-2022 15:01-0400 Body mass index (BMI) [Ratio] 38.1 kg/m2 Dr. Jason Benitez Work Phone: [facility] Work Phone: 01-16-2022 15:01-0400 Body weight 85.[address] Jason Benitez Work Phone: [facility] Work Phone: 11-24-2021 15:32-0400 Body height 149.[address] Jason Benitez Work Phone: [facility] Work Phone: 11-24-2021 15:32-0400 Body mass index (BMI) [Ratio] 36.5 kg/m2 Dr. Jason Benitez Work Phone: [facility] Work Phone: 11-24-2021 15:32-0400 Body weight 82.[address] Jason Benitez Work Phone: [facility] Work Phone: 11-24-2021 15:32-0400 Diastolic blood pressure 62 mm[Hg] Dr. Jason Benitez Work Phone: [facility] Work Phone: 11-24-2021 15:32-0400 Heart rate 76 /min Dr. Jason Benitez Work Phone: [facility] Work Phone: 11-24-2021 15:32-0400 Respiratory rate 16 /min Dr. Jason Benitez Work Phone: [facility] Work Phone: 11-24-2021 15:32-0400 Systolic blood pressure 142 mm[Hg] Dr. Jason Benitez Work Phone: [facility] Work Phone: 10-24-2021 13:56-0500 Body temperature 97.5 [degF] Dr. Jason Benitez Work Phone: [facility] Work Phone: 10-24-2021 13:56-0500 Diastolic blood pressure 65 mm[Hg] Dr. Jason Benitez Work Phone: [facility] Work Phone: 10-24-2021 13:56-0500 Heart rate 81 /min Dr. Jason Benitez Work Phone: [facility] Work Phone: 10-24-2021 13:56-0500 Respiratory rate 20 /min Dr. Jason Benitez Work Phone: [facility] Work Phone: 10-24-2021 13:56-0500 SaO2% (BldA) [Mass fraction] 96 % Dr. Jason Benitez Work Phone: [facility] Work Phone: 10-24-2021 13:56-0500 Systolic blood pressure 143 mm[Hg] Dr. Jason Benitez Work Phone: [facility] Work Phone: 10-23-2021 11:59-0500 Body weight 87.[address] Jason Benitez Work Phone: [facility] Work Phone: 10-22-2021 16:29-0500 Body mass index (BMI) [Ratio] 38.8 kg/m2 Dr. Jason Benitez Work Phone: [facility] Work Phone: Encounters Encounter Date Encounter Type Care Provider Facility Start: 03-12-2025 ambulatory Danial Cook Facility :[facility] Start: 03-02-2025 End: 03-02-2025 Emergency department patient visit Dr. Jason Benitez MD Work Phone: -Emergency Department Work Phone: Start: 02-22-2025 ambulatory Jason Benitez Facility:[facility] Start: 02-19-2025 End: 02-19-[address] Jason Benitez MD Work Phone: -Laboratory Start: 02-19-2025 End: 02-19-[address] Danial Cook MD -Laboratory Work Phone: Start: 02-19-2025 End: 02-19-2025 Telephone encounter Grace Bonds PT [facility] Comment on above: Orders Start: 02-19-2025 End: 02-19-2025 ambulatory Jason Benitez Facility:[facility] Start: 12-22-2024 ambulatory Amy ALEXANDER Facility:[facility] Start: 11-24-2024 End: 11-24-2024 Telephone encounter Radha Wood Work Phone: Podiatry Comment on above: Patient Update Start: 11-20-2024 End: 11-20-2024 ambulatory Grace Bonds PT [facility] Comment on above: Lymphedema of both l ower extremities (Primary Dx) Start: 11-13-2024 End: 11-13-2024 ambulatory Grace Lemon PT [facility] Comment on above: Lymphedema of both l ower extremities (Primary Dx) Start: 11-10-2024 End: 11-10-2024 Emergency department patient visit Dr. Jason Benitez MD Work Phone: -Emergency Department Work Phone: Start: 11-09-2024 End: 11-09-2024 Telephone encounter Grace Bonds PT [facility] Comment on above: Returning Patient's Call (Pt left message on therapist voicemail requesting a call back. Therapist called to talk to pt who notified her that her leg is weeping fluid and was itchy. She stated she removed her compression bandage and,It doesn't look very good, and is red. Therapist instructed pt to go to ER d/t high possibility of infection. Pt stated she was told the last time she was there that, she may as well not come back because they don't know how to treat that anyway (the lymphedema). (cont.)) Patient Question (Th ross spoke with nurse in [facility] ([facility]) who consulted physician on staff and advised pt since she did not currently have a fever, to see her family physician tomorrow for consult and possible referral to wound center. Therapist returned call to pt and relayed these instructions. Pt was satisfied and stated she would do this. ) Patient Question ((c ont) Pt was then advised to go to Urgent Care and again stated she was told they could not help her. Therapist schedule was full (call was around 5:00pm and therapist full until 7:00pm end of day). Pt voiced that she was upset that no one would see her, but advised that she needed to be seen medically before therapy anyway. ) Start: 10-30-2024 End: 10-30-2024 ambulatory Grace Lemon PT [facility] Comment on above: Lymphedema of both l ower extremities (Primary Dx) Start: 09-25-2024 End: 09-25-2024 ambulatory Grace Lemon PT [facility] Comment on above: Lymphedema of both l ower extremities (Primary Dx) Start: 09-04-2024 End: 09-04-2024 ambulatory Grace Lemon PT [facility] Comment on above: Lymphedema of both l ower extremities (Primary Dx) Start: 08-27-2024 End: 08-27-[address] Alphonso Newell MD -[facility] Work Phone: Start: 08-27-2024 End: 08-27-2024 ambulatory Jason Benitez Facility:[facility] Start: 08-21-2024 End: 08-21-[address] Alphonso Newell MD -[facility] Work Phone: Start: 08-21-2024 End: 08-21-2024 ambulatory Jason Benitez Facility:[facility] Start: 08-11-2024 End: 08-11-[address] Alphonso Newell MD -[facility] Work Phone: Start: 08-11-2024 End: 08-11-2024 ambulatory Jason Benitez Facility:[facility] Start: 08-11-2024 End: 08-11-2024 ambulatory Jason Benitez Facility:[facility] Start: 07-30-2024 ambulatory Danial Cook Facility :[facility] Start: 07-17-2024 End: 07-17-2024 ambulatory Grace Lemon PT [facility] Comment on above: Lymphedema of both l ower extremities (Primary Dx) Start: 07-14-2024 End: 07-14-[address] Alphonso Newell MD -[facility] Work Phone: Start: 07-14-2024 End: 07-14-2024 ambulatory Jason Benitez Facility:[facility] Start: 07-10-2024 End: 07-10-2024 ambulatory Grace Lemon PT [facility] Comment on above: Lymphedema of both l ower extremities (Primary Dx) Start: 06-24-2024 End: 06-24-2024 ambulatory Grace Lemon PT [facility] Comment on above: Lymphedema of both l ower extremities (Primary Dx) Start: 06-19-2024 End: 06-19-2024 ambulatory Grace Lemon PT [facility] Comment on above: Lymphedema of both l ower extremities (Primary Dx) Start: 06-12-2024 End: 06-12-2024 Telephone encounter Grace Lemon PT [facility] Comment on above: Returning Patient's Call (Returned pt's voicemail message requesting more PT visits and concern that her legs/feet are more swollen. /Therapist reviewed the appts that were already scheduled with pt and offered an appt for 06/15 that became available today d/t [facility] [place]. Pt first stated she could only keep Saturday's visit (06/19) because her construction driver can only take her on Fridays. Later, she said she would call her construction driver to see if she could bring her on Saturday and would let us know. /Reviewed HEP with pt & instructed to do 2x/day) Start: 05-29-2024 End: 05-29-2024 ambulatory Grace Lemon PT [facility] Comment on above: Lymphedema of both l ower extremities (Primary Dx) Start: 05-22-2024 End: 05-22-2024 ambulatory Grace Lemon PT [facility] Comment on above: Lymphedema of both l ower extremities (Primary Dx) Start: 05-08-2024 End: 05-08-2024 ambulatory Grace Lemon PT [facility] Comment on above: Lymphedema of both l ower extremities (Primary Dx) Start: 04-24-2024 End: 04-24-2024 ambulatory Grace Lemon PT [facility] Comment on above: Lymphedema of both l ower extremities (Primary Dx) Start: 04-17-2024 End: 04-17-2024 ambulatory Grace Lemon PT [facility] Comment on above: Lymphedema of both l ower extremities (Primary Dx) Start: 04-03-2024 End: 04-03-2024 ambulatory Grace Lemon PT [facility] Comment on above: Lymphedema of both l ower extremities (Primary Dx) Start: 03-27-2024 End: 03-27-2024 ambulatory Grace Lemon PT [facility] Comment on above: Lymphedema of both l ower extremities (Primary Dx) Start: 03-13-2024 End: 03-13-2024 ambulatory Grace Lemon PT [facility] Comment on above: Lymphedema of both l ower extremities (Primary Dx) Start: 03-04-2024 End: 03-05-2024 ambulatory Grace Lemon PT [facility] Comment on above: Lymphedema of both l ower extremities (Primary Dx) Start: 02-14-2024 End: 02-14-2024 ambulatory Grace Lemon PT [facility] Comment on above: Lymphedema of both l ower extremities (Primary Dx) Start: 02-07-2024 End: 02-07-2024 ambulatory Grace Lemon PT [facility] Comment on above: Lymphedema of both l ower extremities (Primary Dx) Start: 01-24-2024 End: 01-24-2024 ambulatory Grace Lemon PT [facility] Comment on above: Lymphedema of both l ower extremities (Primary Dx) Start: 01-17-2024 End: 01-17-2024 ambulatory Grace Lemon PT [facility] Comment on above: Lymphedema of both l ower extremities (Primary Dx) Start: 01-03-2024 End: 01-03-2024 Patient encounter procedure Radha Wood Work Phone: Podiatry Comment on above: Onychomycosis (Prima ry Dx); Pain in toe of left foot; Pain in toe of right foot Start: 12-27-2023 End: 12-27-2023 ambulatory Grace Lemon PT [facility] Comment on above: Lymphedema of both l ower extremities (Primary Dx) Start: 12-17-2023 End: 12-17-[address] Jason Benitez Work Phone: [facility] Work Phone: Start: 12-17-2023 End: 12-17-[address] Jason Benitez Work Phone: [facility], [place] Work Phone: Start: 12-13-2023 End: 12-13-2023 ambulatory Grace Lemon PT [facility] Comment on above: Lymphedema of both l ower extremities (Primary Dx) Start: 11-29-2023 End: 11-29-2023 ambulatory Grace Lemon PT [facility] Comment on above: Lymphedema of both l ower extremities (Primary Dx) Start: 11-15-2023 End: 11-15-2023 ambulatory Grace Lemon PT [facility] Comment on above: Lymphedema of both l ower extremities (Primary Dx) Start: 10-28-2023 End: 10-28-2023 ambulatory Grace Lemon PT [facility] Comment on above: Lymphedema of both l ower extremities (Primary Dx) Start: 10-14-2023 End: 10-14-2023 ambulatory Grace Lemon PT [facility] Comment on above: Lymphedema of both l ower extremities (Primary Dx) Start: 10-07-2023 End: 10-07-2023 ambulatory Grace Lemon PT [facility] Comment on above: Lymphedema of both l ower extremities (Primary Dx) Start: 10-04-2023 End: 10-04-2023 ambulatory Grace Lemon PT [facility] Comment on above: Lymphedema of both l ower extremities (Primary Dx) Start: 08-29-2023 End: 08-29-[address] Jason Benitez Work Phone: [facility] Work Phone: Start: 08-07-2023 End: 08-07-2023 ambulatory Grace Lemon PT [facility] Comment on above: Lymphedema of both l ower extremities (Primary Dx) Start: 08-02-2023 End: 08-02-2023 ambulatory Grace Lemon PT [facility] Comment on above: Lymphedema of both l ower extremities (Primary Dx) Start: 2023 Telephone encounter Radha Armstrong Work Phone: Podiatry Comment on above: Results Start: 07-17-2023 End: 07-17-2023 Subsequent hospital visit by physician [facility] Work Phone: Radiology Comment on above: Ingrowing toenail of left foot [L60.0] Start: 07-08-2023 Telephone encounter Radha Armstrong Work Phone: Podiatry Comment on above: Results Start: 07-05-2023 End: 07-05-2023 Patient encounter procedure Radhachristina Wood Work Phone: Podiatry Comment on above: Onychomycosis (Prima ry Dx); Pain in toe of left foot; Pain in toe of right foot; Ingrowing toenail of left foot Start: 07-01-2023 End: 07-01-[address] Jason Benitez Work Phone: [facility] Work Phone: Start: 07-01-2023 End: 07-01-[address] Jason Benitez Work Phone: [facility] Work Phone: Start: 06-28-2023 End: 06-28-2023 ambulatory Grace Lemon PT [facility] Comment on above: Lymphedema of both l ower extremities (Primary Dx) Start: 06-21-2023 End: 06-21-2023 ambulatory Grace Lemon PT [facility] Comment on above: Lymphedema of both l ower extremities (Primary Dx) Start: 06-18-2023 End: 06-18-[address] Jason Benitez Work Phone: [facility] Work Phone: Start: 06-18-2023 End: 06-18-[address] Jason Benitez Work Phone: [facility] Start: 06-17-2023 Telephone encounter Grace Lemon PT [facility] Comment on above: Appointment Start: 06-10-2023 End: 06-10-2023 ambulatory Grace Lemon PT [facility] Comment on above: Lymphedema of both l ower extremities (Primary Dx) Start: 06-10-2023 End: 06-10-[address] Jason Benitez Work Phone: [facility] Work Phone: Start: 06-10-2023 End: 06-10-[address] Jason Benitez Work Phone: [facility] Work Phone: Start: 06-03-2023 End: 06-03-[address] Jason Benitez Work Phone: [facility] Work Phone: Start: 06-03-2023 End: 06-03-[address] Jason Benitez Work Phone: [facility] Work Phone: Start: 05-31-2023 End: 05-31-2023 ambulatory Grace Lemon PT [facility] Comment on above: Lymphedema of both l ower extremities (Primary Dx) Start: 05-24-2023 End: 05-24-2023 ambulatory Grace Lemon PT [facility] Comment on above: Unsteady gait when w alking; Lymphedema of both lower extremities Start: 05-24-2023 End: 05-24-2023 Emergency department patient [facility] Start: 05-17-2023 End: 05-17-2023 ambulatory Grace Lemon PT [facility] Comment on above: Lymphedema of both l ower extremities (Primary Dx) Start: 05-10-2023 End: 05-10-2023 ambulatory Grace Lemon PT [facility] Comment on above: Lymphedema of both l ower extremities (Primary Dx) Start: 05-03-2023 End: 05-03-2023 ambulatory Grace Lemon PT [facility] Comment on above: Lymphedema of both l ower extremities (Primary Dx) Start: 04-24-2023 End: 04-24-2023 ambulatory Grace Lemon PT [facility] Comment on above: Lymphedema of both l ower extremities (Primary Dx) Start: 04-19-2023 Non-patient / Non-visit Dr. Silvio Benitez Work Phone: [facility] Work Phone: Start: 04-18-2023 Non-patient / Non-visit Dr. Silvio Benitez Work Phone: [facility] Work Phone: Start: 04-17-2023 Non-patient / Non-visit Dr. Silvio Benitez Work Phone: [facility] Work Phone: Start: 04-16-2023 Non-patient / Non-visit Dr. Silvio Benitez Work Phone: [facility] Start: 04-16-2023 Non-patient / Non-visit Dr. Silvio Benitez Work Phone: [facility] Work Phone: Start: 04-15-2023 End: 04-19-2023 Evaluation and management of inpatient Dr. Jason Benitez Work Phone: [facility] Work Phone: Start: 04-15-2023 End: 04-19-[address] Jason Benitez Work Phone: [facility] Work Phone: Start: 04-12-2023 End: 04-12-2023 ambulatory Grace Lemon PT [facility] Comment on above: Lymphedema of both l ower extremities (Primary Dx) Start: 04-05-2023 End: 04-05-2023 Emergency department patient visit Dr. Jason Benitez Work Phone: [facility] Work Phone: Start: 04-04-2023 End: 04-05-2023 Emergency department patient visit Dr. Jason Benitez Work Phone: [facility] Work Phone: Start: 03-29-2023 End: 04-01-2023 Evaluation and management of inpatient JASON BENITEZ Facility:[facility] Start: 03-29-2023 Telephone encounter Grace Lemon PT [facility] Comment on above: Appointment Start: 03-22-2023 End: 03-22-2023 ambulatory Grace Lemon PT [facility] Comment on above: Lymphedema of both l ower extremities (Primary Dx) Start: 03-21-2023 Telephone encounter Grace Lemon PT [facility] Comment on above: Patient Update Start: 03-20-2023 Telephone encounter Judith rubi PA-C Work Phone: Plastic Surgery Comment on above: Appointment Start: 03-19-2023 Non-patient / Non-visit Dr. Silvio Benitez Work Phone: [facility] Work Phone: Start: 03-18-2023 Non-patient / Non-visit Dr. Silvio Benitez Work Phone: [facility] Start: 03-18-2023 Non-patient / Non-visit Dr. Silvio Benitez Work Phone: [facility] Work Phone: Start: 03-17-2023 Non-patient / Non-visit Dr. Silvio Benitez Work Phone: [facility] Work Phone: Start: 03-17-2023 End: 03-19-2023 Evaluation and management of inpatient Dr. Jason Benitez Work Phone: [facility] Work Phone: Start: 03-12-2023 End: 03-12-[address] Jason Benitez Work Phone: [facility] Work Phone: Start: 03-08-2023 End: 03-08-2023 ambulatory Grace Lemon PT [facility] Comment on above: Lymphedema of both l ower extremities (Primary Dx) Start: 03-01-2023 End: 03-01-2023 ambulatory Grace Lemon PT [facility] Comment on above: Lymphedema of both l ower extremities (Primary Dx) Start: 02-27-2023 End: 02-27-2023 ambulatory Grace Lemon PT [facility] Comment on above: Lymphedema of both l ower extremities (Primary Dx) Start: 02-26-2023 End: 02-26-2023 Emergency department patient [facility] Start: 02-22-2023 End: 02-22-2023 ambulatory Grace Lemon PT [facility] Comment on above: Lymphedema of both l ower extremities (Primary Dx) Start: 02-20-2023 End: 02-20-2023 ambulatory Grace Lemon PT [facility] Comment on above: Lymphedema of both l ower extremities (Primary Dx) Start: 02-08-2023 End: 02-08-2023 ambulatory Grace Lemon PT [facility] Comment on above: Lymphedema of both l ower extremities (Primary Dx) Start: 01-25-2023 End: 01-25-2023 ambulatory Grace Lemon PT [facility] Comment on above: Lymphedema of both l ower extremities (Primary Dx) Start: 01-15-2023 End: 01-15-2023 Emergency department patient visit Dr. Jason Beintez Work Phone: [facility] Work Phone: Start: 01-04-2023 End: 01-04-2023 ambulatory Grace Lemon PT [facility] Comment on above: Lymphedema of both l ower extremities (Primary Dx) Start: 01-03-2023 Telephone encounter Judith Walton ins PA-C Work Phone: [facility] Comment on above: Appointment Start: 01-02-2023 Telephone encounter Judith Walton ins PA-C Work Phone: Plastic Surgery Comment on above: Appointment Start: 12-31-2022 Telephone encounter Jesse Grayson Work Phone: Plastic Surgery Comment on above: Patient Question (Mi ssed call) Appointment Start: 12-21-2022 End: 12-21-[address] Jason Benitez Work Phone: [facility] Work Phone: Start: 12-21-2022 End: 12-21-[address] Jason Benitez Work Phone: [facility] Start: 12-21-2022 End: 12-21-2022 ambulatory Grace Lemon PT [facility] Comment on above: Lymphedema of both l ower extremities (Primary Dx) Start: 12-14-2022 End: 12-14-2022 ambulatory Grace Lemon PT [facility] Comment on above: Lymphedema of both l ower extremities (Primary Dx) Start: 12-07-2022 End: 12-07-2022 ambulatory Grace Lemon PT [facility] Comment on above: Lymphedema of both l ower extremities (Primary Dx) Start: 12-06-2022 ambulatory Mohini vasquez LPN [facility] Start: 12-06-2022 Patient encounter procedure Mohini Davila LPN NURSE [employer]AR 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 Jason Benitez Work Phone: [facility] Start: 11-23-2022 End: 11-23-2022 ambulatory Grace Lemon PT [facility] Comment on above: Lymphedema of both l ower extremities (Primary Dx) Start: 11-20-2022 End: 11-20-2022 ambulatory [facility] Work Phone: Start: 11-20-2022 End: 11-20-2022 Patient encounter procedure [facility] Start: 11-09-2022 End: 11-09-2022 ambulatory Grace Lemon PT [facility] Comment on above: Lymphedema of both l ower extremities (Primary Dx) Start: 11-02-2022 End: 11-02-2022 ambulatory Grace Lemon PT [facility] Comment on above: Lymphedema of both l ower extremities (Primary Dx) Start: 10-22-2022 End: 10-22-2022 ambulatory Grace Lemon PT [facility] Comment on above: Lymphedema of both l ower extremities (Primary Dx) Start: 10-12-2022 End: 10-12-2022 ambulatory Grace Lemon PT [facility] Comment on above: Lymphedema of both l ower extremities (Primary Dx) Start: 10-05-2022 End: 10-05-2022 ambulatory Grace Lemon PT [facility] Comment on above: Lymphedema of both l ower extremities (Primary Dx) Start: 09-12-2022 Telephone encounter Radha Armstrong Work Phone: Podiatry Comment on above: Results Start: 09-11-2022 End: 09-11-2022 Subsequent hospital visit by physician Xr [facility] Work Phone: Radiology Comment on above: Plantar fasciitis [M 72.2] Start: 09-11-2022 End: 09-11-2022 Patient encounter procedure Radha Wood Work Phone: Podiatry Comment on above: Onychomycosis (Prima ry Dx); Pain in toe of left foot; Pain in toe of right foot; Plantar fasciitis Start: 09-10-2022 End: 09-10-2022 ambulatory Grace Lemon PT [facility] Comment on above: Lymphedema of both l ower extremities (Primary Dx) Start: 08-10-2022 End: 08-10-2022 ambulatory Grace Lemon PT [facility] Comment on above: Lymphedema of both l ower extremities (Primary Dx) Start: 08-03-2022 End: 08-03-2022 ambulatory Grace Lemon PT [facility] Comment on above: Lymphedema of both l ower extremities (Primary Dx) Start: 07-27-2022 End: 07-27-2022 ambulatory Grace Lemon PT [facility] Comment on above: Lymphedema of both l ower extremities (Primary Dx) Start: 07-13-2022 End: 07-13-2022 ambulatory Grace Lemon PT [facility] Comment on above: Lymphedema of both l ower extremities (Primary Dx) Start: 07-09-2022 End: 07-09-[address] Jason Benitez Work Phone: [facility] Work Phone: Start: 07-09-2022 End: 07-09-[address] Jason Benitez Work Phone: [facility] Start: 07-06-2022 End: 07-06-2022 ambulatory Grace Lemon PT [facility] Comment on above: Lymphedema of both l ower extremities (Primary Dx) Start: 06-26-[address] Jason Benitez Work Phone: [facility] Start: 06-15-2022 End: 06-15-2022 ambulatory Grace Lemon PT [facility] Comment on above: Lymphedema of both l ower extremities (Primary Dx) Start: 06-08-2022 End: 06-08-2022 ambulatory Grace Lemon PT [facility] Comment on above: Lymphedema of both l ower extremities (Primary Dx) Start: 06-08-2022 End: 06-08-[address] Jason Benitez Work Phone: [facility] Work Phone: Start: 06-08-2022 End: 06-08-[address] Jason Benitez Work Phone: [facility] Start: 06-01-2022 End: 06-01-2022 ambulatory Grace Lemon PT [facility] Comment on above: Lymphedema of both l ower extremities (Primary Dx) Start: 05-25-2022 End: 05-25-2022 ambulatory Grace Lemon PT [facility] Comment on above: Lymphedema of both l ower extremities (Primary Dx) Start: 05-20-2022 End: 05-20-2022 Emergency department patient [facility] Start: 05-18-2022 End: 05-18-2022 ambulatory Grace Lemon PT [facility] Comment on above: Lymphedema of both l ower extremities (Primary Dx) Start: 05-18-2022 End: 05-18-[address] Jason Benitez Work Phone: [facility] Start: 05-16-2022 End: 05-16-[address] Jason Benitez Work Phone: [facility] Start: 05-11-2022 End: 05-11-2022 ambulatory Grace Lemon PT [facility] Comment on above: Lymphedema of both l ower extremities (Primary Dx) Start: 05-11-2022 End: 05-11-[address] Jason Benitez Work Phone: [facility] Start: 05-08-2022 End: 05-08-2022 Emergency department patient visit Dr. Jason Benitez Work Phone: [facility] Start: 05-04-2022 End: 05-04-2022 ambulatory Grace Lemon PT [facility] Comment on above: Lymphedema of both l ower extremities (Primary Dx) Start: 05-04-2022 End: 05-04-[address] Jason Benitez Work Phone: [facility] Start: 04-27-2022 End: 04-27-2022 ambulatory Grace Lemon PT [facility] Comment on above: Lymphedema of both l ower extremities (Primary Dx) Start: 04-20-2022 End: 04-20-2022 ambulatory Grace Lemon PT [facility] Comment on above: Lymphedema of both l ower extremities (Primary Dx) Start: 04-16-2022 End: 04-16-[address] Jason Benitez Work Phone: [facility] Start: 04-13-2022 End: 04-13-2022 ambulatory Grace Lemon PT [facility] Comment on above: Lymphedema of both l ower extremities (Primary Dx) Start: 04-06-2022 End: 04-06-2022 ambulatory Grace Lemon PT [facility] Comment on above: Lymphedema of both l ower extremities (Primary Dx) Start: 03-30-2022 End: 03-30-2022 ambulatory Grace Lemon PT [facility] Comment on above: Lymphedema of both l ower extremities (Primary Dx) Start: 03-23-2022 End: 03-23-2022 ambulatory Grace Lemon PT [facility] Comment on above: Lymphedema of both l ower extremities (Primary Dx) Start: 03-19-2022 End: 03-19-2022 ambulatory Grace Lemon PT [facility] Comment on above: Lymphedema of both l ower extremities (Primary Dx) Start: 03-19-2022 End: 03-19-[address] Jason Benitez Work Phone: [facility] Start: 03-07-2022 End: 03-07-2022 ambulatory Grace Lemon PT [facility] Comment on above: Lymphedema of both l ower extremities (Primary Dx) Start: 02-28-2022 End: 02-28-[address] Jason Benitez Work Phone: [facility] Start: 02-23-2022 End: 02-23-2022 ambulatory Grace Lemon PT [facility] Comment on above: Lymphedema of both l ower extremities (Primary Dx) Start: 02-16-2022 End: 02-16-2022 ambulatory Grace Lemon PT [facility] Comment on above: Lymphedema of both l ower extremities (Primary Dx) Start: 02-02-2022 End: 02-02-2022 ambulatory Graec Lemon PT [facility] Comment on above: Lymphedema of both l ower extremities (Primary Dx) Start: 01-18-2022 End: 01-18-2022 Emergency department patient [facility] Start: 01-16-2022 End: 01-16-2022 Emergency department patient visit Dr. Jason Benitez Work Phone: [facility] Start: 01-05-2022 End: 01-05-2022 ambulatory Grace Lemon PT Work Phone: [facility] Comment on above: Lymphedema of both l ower extremities (Primary Dx) Start: 12-29-2021 End: 12-29-2021 ambulatory Grace Lemon PT Work Phone: [facility] Comment on above: Lymphedema of both l ower extremities (Primary Dx) Start: 12-25-2021 End: 12-25-[address] Jason Benitez Work Phone: [facility] Start: 12-22-2021 End: 12-22-2021 ambulatory Grace Lemon PT Work Phone: [facility] Comment on above: Lymphedema of both l ower extremities (Primary Dx) Start: 12-06-2021 End: 12-06-2021 Patient encounter procedure Radha Wood Work Phone: Podiatry Comment on above: Onychomycosis (Prima ry Dx); Pain in toe of left foot; Pain in toe of right foot; Hyperkeratosis Start: 12-04-2021 End: 12-04-2021 ambulatory Grace Bonds PT Work Phone: [facility] Comment on above: Lymphedema of both l ower extremities (Primary Dx) Start: 11-24-2021 End: 11-24-[address] Jason Benitez Work Phone: [facility] Start: 11-24-2021 End: 11-24-[address] Jason Benitez Work Phone: [facility] Start: 11-08-2021 End: 11-08-[address] Jason Benitez Work Phone: [facility] Start: 10-24-2021 Non-patient / Non-visit Dr. Silvio Benitez Work Phone: [facility] Start: 10-23-2021 Non-patient / Non-visit Dr. Silvio Benitez Work Phone: [facility] Start: 10-23-2021 Non-patient / Non-visit Dr. Silvio Benitez Work Phone: [facility] Start: 10-23-2021 Non-patient / Non-visit Dr. Silvio Benitez Work Phone: [facility] Start: 10-23-2021 Non-patient / Non-visit Dr. Silvio Benitez Work Phone: [facility] Start: 10-23-2021 Non-patient / Non-visit Dr. Silvio Benitez Work Phone: [facility] Start: 10-22-2021 Non-patient / Non-visit Dr. Silvio Benitez Work Phone: [facility] Start: 10-22-2021 End: 10-24-2021 Evaluation and management of inpatient Dr. 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 Jason Benitez MD Work Phone: Start: 03-02-2025 X-ray of chest, PA a nd lateral views Dr. Jason Benitez MD Work Phone: Start: 11-10-[address] Jason Benitez MD Work Phone: Start: 11-10-[address] Jason Benitez MD Work Phone: Start: 07-05-2023 Cul bact xcpt urine blood/stool aerobic isol Radha Wood Work Phone: Start: 04-17-2023 Pelvis X-ray Dr. Jason arnold Work Phone: Start: 04-04-2023 X-ray of both feet Dr. Jason Benitez Work Phone: Start: 03-17-2023 Bacteria identified in Blood by Culture Dr. Jason Benitez Work Phone: Start: 01-15-2023 CT angiography of ch est with contrast Dr. Jason Benitez Work Phone: Start: 01-15-2023 Plain chest X-ray Dr. Vandana Benitez Work Phone: Start: 01-15-2023 SARS-CoV-2 & FLU Ant igen (Rapid) Dr. Jason Benitez Work Phone: Start: 12-21-2022 CT of abdomen and pe lvis with oral contrast Dr. Jason Benitez Work Phone: Start: 09-11-2022 Radex foot complete minimum 3 views Radha Wood Work Phone: Start: 06-08-[address] Silvio Benitez Work Phone: Start: 05-20-2022 Plain chest X-ray Dr. Vandana Benitez Work Phone: Start: 05-08-2022 Plain chest X-ray Dr. Vandana Benitez Work Phone: Start: 04-16-2022 Radiologic examinati on of knee Dr. Jason Benitez Work Phone: Start: 03-19-2022 Radiography of thora cic spine Dr. Jason Benitez Work Phone: Start: 03-19-2022 X-ray of lumbosacral spine Dr. Jason Benitez Work Phone: Start: 01-16-2022 Plain chest X-ray Dr. Vandana Benitez Work Phone: Start: 01-16-2022 SARS-CoV-2 & FLU Ant igen (Rapid) Dr. Jason Benitez Work Phone: Start: 11-24-2021 US scan of thyroid Dr. Jason Benitez Work Phone: Start: 10-23-2021 Plain chest X-ray Dr. Vandana Benitez Work Phone: Start: 10-22-2021 Bacteria identified in Blood by Culture Dr. Jason Benitez Work Phone: Start: 10-22-2021 End: 10-22-2021 Legionella pneumophila antigen assay Dr. Jason Benitez Work Phone: Start: 10-22-2021 Respiratory Panel (PCR) Dr. Jason Benitez Work Phone: Start: 10-22-2021 Streptococcus pneumo niae Antigen (M Dr. Jason Benitez Work Phone: Start: 10-22-2021 Plain chest X-ray Dr. Vandana Benitez Work Phone: Start: 02-13-2013 History of radiation therapy S/P radiation therapy Grace Bonds PT Work Phone: SARS-CoV-2 & FLU Ant igen (Rapid) Dr. Jason Benitez Work Phone: Plan of Treatment Date Care Activity Detail Author Start: 07-02-2027 Urine microalbumin profile [facility] Start: 04-01-2026 DIABETES SCREEN DIABETES SCREEN [facility] Start: 04-01-2026 Diabetes Screening Diabetes Screenin g [facility] Start: 03-29-2026 DIABETES SCREEN DIABETES SCREEN [facility] Start: 04-26-2025 Influenza vaccination Influenz a Vaccine (Season Ended) [facility] Start: 04-19-2025 ambulatory Ambulatory Facility:[facility] Start: 03-17-2025 End: 03-17-2025 ambulatory 03/17/2025 4:15 PM EDT OT/PT/Speech Visit [facility] [address] [place] [address] Ana Rosa Amato, PT [address] [place] [address] I89.0 (ICD-10-CM) - Lymphedema of both lower extremities [facility] Comment on above: I89.0 (ICD-10-CM) - Lymphedema of both lower extremities Start: 03-11-2025 End: 03-11-2025 Patient encounter procedure 03/11/2025 2:00 PM EDT Office Visit Podiatry [address] [place] [address] Radha Wood [address] [place], [place] [id number] follow up nail care Podiatry Comment on above: follow up nail care Start: 03-02-2025 End: 03-02-2025 [facility] Start: 12-18-2024 End: 12-18-2024 ambulatory 12/18/2024 2:45 PM EDT OT/PT/Speech Visit [facility] [address] [place] [address] Lemon, Grace, PT I89.0 (ICD-10-CM) - Lymphedema of both lower extremities [facility] Comment on above: I89.0 (ICD-10-CM) - Lymphedema of both lower extremities Start: 12-11-2024 End: 12-11-2024 ambulatory 12/11/2024 2:45 PM EDT OT/PT/Speech Visit [facility] [address] [place] [address] Lemon, Grace, PT I89.0 (ICD-10-CM) - Lymphedema of both lower extremities [facility] Comment on above: I89.0 (ICD-10-CM) - Lymphedema of both lower extremities Start: 12-04-2024 End: 12-04-2024 ambulatory 12/04/2024 2:45 PM EDT OT/PT/Speech Visit [facility] [address] [place] [address] Lemon, Grace, PT I89.0 (ICD-10-CM) - Lymphedema of both lower extremities [facility] Comment on above: I89.0 (ICD-10-CM) - Lymphedema of both lower extremities Start: 11-27-2024 End: 11-27-2024 ambulatory 11/27/2024 2:45 PM EDT OT/PT/Speech Visit [facility] [address] [place] [address] Lemon, Grace, PT I89.0 (ICD-10-CM) - Lymphedema of both lower extremities [facility] Comment on above: I89.0 (ICD-10-CM) - Lymphedema of both lower extremities Start: 11-24-2024 End: 11-24-2024 Patient encounter procedure Podiatry Comment on above: follow up nail care Start: 11-20-2024 End: 11-20-2024 ambulatory 11/20/2024 2:45 PM EDT OT/PT/Speech Visit [facility] [address] [place] [address] Lemon, Grace, PT Lymphedema [facility] Comment on above: Lymphedema Start: 11-13-2024 End: 11-13-2024 ambulatory 11/13/2024 2:45 PM EDT OT/PT/Speech Visit [facility] [address] [place] [address] Lemon, Grace, PT Lymphedema [facility] Comment on above: Lymphedema Start: 11-10-2024 [facility] Start: 11-10-2024 [facility] Start: 11-10-2024 Bacteria identified in Blood by Culture Blood Culture [facility] Start: 09-25-2024 End: 09-25-2024 ambulatory 09/25/2024 2:45 PM EST OT/PT/Speech Visit [facility] [address] [place] [address] Lemon, Grace, PT 89.0 (ICD-10-CM) - Lymphedema, not elsewhere classified [facility] Comment on above: 89.0 (ICD-10-CM) - L ymphedema, not elsewhere classified Start: 09-18-2024 End: 09-18-2024 ambulatory 09/18/2024 2:45 PM EST OT/PT/Speech Visit [facility] [address] [place] [address] Lemon, Grace, PT 89.0 (ICD-10-CM) - Lymphedema, not elsewhere classified [facility] Comment on above: 89.0 (ICD-10-CM) - L ymphedema, not elsewhere classified Start: 09-11-2024 End: 09-11-2024 ambulatory 09/11/2024 2:45 PM EST OT/PT/Speech Visit [facility] [address] [place] [address] Lemon, Grace, PT 89.0 (ICD-10-CM) - Lymphedema, not elsewhere classified [facility] Comment on above: 89.0 (ICD-10-CM) - L ymphedema, not elsewhere classified Start: 09-04-2024 End: 09-04-2024 ambulatory 09/04/2024 2:45 PM EST OT/PT/Speech Visit [facility] [address] [place] [address] Lemon, Grace, PT 89.0 (ICD-10-CM) - Lymphedema, not elsewhere classified [facility] Comment on above: 89.0 (ICD-10-CM) - L ymphedema, not elsewhere classified Start: 09-04-2024 End: 09-04-2024 Documentation procedure 09/04/2024 Plan of Care Documentation [facility] [address] [place] [address] [facility] Start: 08-28-2024 Patient referral [facility] Work Phone: Start: 08-26-2024 Advance Directive Discussion Advance Directive Discussion [facility] Start: 08-26-2024 Medicare Advantage A nnual Wellness Visit Medicare Advantage Annual Wellness Visit [facility] Start: 08-24-2024 End: 08-24-2024 ambulatory 08/24/2024 4:00 PM EST OT/PT/Speech Visit [facility] [address] [place] [address] Lemon, Grace, PT 89.0 (ICD-10-CM) - Lymphedema, not elsewhere classified [facility] Comment on above: 89.0 (ICD-10-CM) - L ymphedema, not elsewhere classified Start: 08-14-2024 End: 08-14-2024 ambulatory 08/14/2024 1:00 PM EST OT/PT/Speech Visit [facility] [address] [place] [address] Lemon, Grace, PT 89.0 (ICD-10-CM) - Lymphedema, not elsewhere classified [facility] Comment on above: 89.0 (ICD-10-CM) - L ymphedema, not elsewhere classified Start: 08-03-2024 End: 08-03-2024 Patient encounter procedure Podiatry Comment on above: follow up callus Start: 07-17-2024 End: 07-17-2024 ambulatory 07/17/2024 2:45 PM EST OT/PT/Speech Visit [facility] [address] [place] [address] Lemon, Grace, PT 89.0 (ICD-10-CM) - Lymphedema, not elsewhere classified [facility] Comment on above: 89.0 (ICD-10-CM) - L ymphedema, not elsewhere classified Start: 06-24-2024 End: 06-24-2024 ambulatory [facility] Comment on above: I89.0 (ICD-10-CM) - Lymphedema, not elsewhere classified Start: 06-19-2024 End: 06-19-2024 ambulatory 06/19/2024 2:45 PM EDT OT/PT/Speech Visit [facility] [address] [place] [address] Lemon, Grace, PT I89.0 (ICD-10-CM) - Lymphedema, not elsewhere classified [facility] Comment on above: I89.0 (ICD-10-CM) - Lymphedema, not elsewhere classified Start: 05-29-2024 End: 05-29-2024 ambulatory 05/29/2024 2:45 PM EDT OT/PT/Speech Visit [facility] [address] [place] [address] Lemon, Grace, PT I89.0 (ICD-10-CM) - Lymphedema, not elsewhere classified [facility] Comment on above: I89.0 (ICD-10-CM) - Lymphedema, not elsewhere classified Start: 05-22-2024 End: 05-22-2024 ambulatory 05/22/2024 2:45 PM EDT OT/PT/Speech Visit [facility] [address] [place] [address] Lemon, Grace, PT I89.0 (ICD-10-CM) - Lymphedema, not elsewhere classified [facility] Comment on above: I89.0 (ICD-10-CM) - Lymphedema, not elsewhere classified Start: 05-15-2024 End: 05-15-2024 ambulatory 05/15/2024 2:45 PM EDT OT/PT/Speech Visit [facility] [address] [place] [address] Lemon, Grace, PT I89.0 (ICD-10-CM) - Lymphedema, not elsewhere classified [facility] Comment on above: I89.0 (ICD-10-CM) - Lymphedema, not elsewhere classified Start: 05-13-2024 End: 05-13-2024 ambulatory 05/13/2024 3:30 PM EDT OT/PT/Speech Visit [facility] [address] [place] [address] Lemon, Grace, PT I89.0 (ICD-10-CM) - Lymphedema, not elsewhere classified [facility] Comment on above: I89.0 (ICD-10-CM) - Lymphedema, not elsewhere classified Start: 05-08-2024 End: 05-08-2024 ambulatory 05/08/2024 2:45 PM EDT OT/PT/Speech Visit [facility] Therapy [address] [place] [address] Lemon, Grace, PT I89.0 (ICD-10-CM) - Lymphedema, not elsewhere classified [facility] Comment on above: I89.0 (ICD-10-CM) - Lymphedema, not elsewhere classified Start: 05-01-2024 End: 05-01-2024 ambulatory 05/01/2024 1:45 PM EDT OT/PT/Speech Visit [facility] [address] [place] [address] Lemon, Grace, PT I89.0 (ICD-10-CM) - Lymphedema, not elsewhere classified [facility] Comment on above: I89.0 (ICD-10-CM) - Lymphedema, not elsewhere classified Start: 04-26-2024 Covid-19 Vaccine ( season) Covid-19 Vaccine () [facility] Start: 04-26-2024 Covid-19 Vaccine () Covid-19 Vaccine () [facility] Start: 04-26-2024 Influenza vaccination [facility] Start: 04-24-2024 End: 04-24-2024 ambulatory 04/24/2024 2:45 PM EDT OT/PT/Speech Visit [facility] [address] [place] [address] Lemon, Grace, PT I89.0 (ICD-10-CM) - Lymphedema, not elsewhere classified [facility] Comment on above: I89.0 (ICD-10-CM) - Lymphedema, not elsewhere classified Start: 04-17-2024 End: 04-17-2024 ambulatory 04/17/2024 1:00 PM EDT OT/PT/Speech Visit [facility] [address] [place] [address] Lemon, Grace, PT I89.0 (ICD-10-CM) - Lymphedema, not elsewhere classified [facility] Comment on above: I89.0 (ICD-10-CM) - Lymphedema, not elsewhere classified Start: 04-10-2024 End: 04-10-2024 Patient encounter procedure 04/10/2024 3:20 PM EDT Office Visit Podiatry [address] [place] [address] Radha Wood [address] [place] [address] month follow up nail care Podiatry Comment on above: month follow up nail care Start: 04-10-2024 End: 04-10-2024 ambulatory 04/10/2024 1:00 PM EDT OT/PT/Speech Visit [facility] [address] [place] [address] Lemon, Grace, PT I89.0 (ICD-10-CM) - Lymphedema, not elsewhere classified [facility] Comment on above: I89.0 (ICD-10-CM) - Lymphedema, not elsewhere classified Start: 04-03-2024 End: 04-03-2024 ambulatory 04/03/2024 1:00 PM EDT OT/PT/Speech Visit [facility] [address] [place] [address] Lemon, Grace, PT I89.0 (ICD-10-CM) - Lymphedema, not elsewhere classified [facility] Comment on above: I89.0 (ICD-10-CM) - Lymphedema, not elsewhere classified Start: 03-27-2024 End: 03-27-2024 ambulatory 03/27/2024 2:45 PM EDT OT/PT/Speech Visit [facility] [address] [place] [address] Lemon, Grace, PT I89.0 - Lymphedema [facility] Comment on above: I89.0 - Lymphedema Start: 03-13-2024 End: 03-13-2024 ambulatory 03/13/2024 2:45 PM EDT OT/PT/Speech Visit [facility] [address] [place] [address] Lemon, Grace, PT I89.0 (ICD-10-CM) - Lymphedema, not elsewhere classified [facility] Comment on above: I89.0 (ICD-10-CM) - Lymphedema, not elsewhere classified Start: 03-06-2024 End: 03-06-2024 ambulatory 03/06/2024 2:45 PM EDT OT/PT/Speech Visit [facility] [address] [place] [address] Lemon, Grace, PT I89.0 (ICD-10-CM) - Lymphedema, not elsewhere classified [facility] Comment on above: I89.0 (ICD-10-CM) - Lymphedema, not elsewhere classified Start: 03-04-2024 End: 03-04-2024 ambulatory 03/04/2024 2:00 PM EDT OT/PT/Speech Visit [facility] [address] [place] [address] Lemon, Grace, PT I89.0 (ICD-10-CM) - Lymphedema, not elsewhere classified [facility] Comment on above: I89.0 (ICD-10-CM) - Lymphedema, not elsewhere classified Start: 02-14-2024 Documentation procedure 2023 Plan of Care Documentation [facility] [address] [place] [address] [facility] Start: 02-14-2024 End: 02-14-2024 ambulatory 02/14/2024 1:45 PM EDT OT/PT/Speech Visit [facility] [address] [place] [address] Lemon, Grace, PT I89.0 (ICD-10-CM) - Lymphedema, not elsewhere classified [facility] Comment on above: I89.0 (ICD-10-CM) - Lymphedema, not elsewhere classified Start: 02-07-2024 End: 02-07-2024 ambulatory 02/07/2024 1:00 PM EDT OT/PT/Speech Visit [facility] [address] [place] [address] Lemon, Grace, PT I89.0 (ICD-10-CM) - Lymphedema of both lower extremities [facility] Comment on above: I89.0 (ICD-10-CM) - Lymphedema of both lower extremities Start: 01-24-2024 End: 01-24-2024 ambulatory 01/24/2024 11:00 AM EDT OT/PT/Speech Visit [facility] [address] [place] [address] Lemon, Grace, PT I89.0 (ICD-10-CM) - Lymphedema, not elsewhere classified [facility] Comment on above: I89.0 (ICD-10-CM) - Lymphedema, not elsewhere classified Start: 01-17-2024 End: 01-17-2024 ambulatory 01/17/2024 1:45 PM EDT OT/PT/Speech Visit [facility] [address] [place] [address] Grace Bonds, PT I89.0 (ICD-10-CM) - Lymphedema, not elsewhere classified [facility] Comment on above: I89.0 (ICD-10-CM) - Lymphedema, not elsewhere classified Start: 01-03-2024 End: 01-03-2024 Patient encounter procedure 01/03/2024 3:40 PM EDT Office Visit Podiatry [address] [place] [address] Radha Wood [address] [place] [address] nail care Podiatry Comment on above: nail care Start: 08-26-2023 Advance Directive Discussion Advance Directive Discussion [facility] Start: 08-26-2023 Behavioral Health Screening Behavioral Health Screening [facility] Start: 08-26-2023 Depression Assessment Depression Ass essment [facility] Start: 05-24-2023 Emergency department visit limited/minor prob EMR DPT VST MAYX REQ PHY/QHP [facility] Start: 04-26-2023 Covid-19 Vaccine ( season) Covid-19 Vaccine () [facility] Start: 04-26-2023 Covid-19 Vaccine ( season) Covid-19 Vaccine ( season) [facility] Start: 04-26-2023 Influenza vaccination [facility] Start: 04-19-2023 Patient discharge [facility] Start: 04-15-2023 Following clinical pathway protocol [facility] Start: 04-15-2023 Ambulation without limitation [facility] Start: 04-15-2023 Assessment of risk o f venous thromboembolism [facility] Start: 04-15-2023 Consultation for treatment [facility] Start: 04-15-2023 Incentive spirometry [facility] Start: 04-15-2023 Insertion of cathete r into peripheral vein [facility] Start: 04-15-2023 Measuring intake and output [facility] Start: 04-15-2023 Oxygen therapy [facility] Start: 04-15-2023 Providing care accor ding to [facility] Start: 04-15-2023 Referral to occupati onal therapist [facility] Start: 04-15-2023 Referral to service [facility] Start: 04-15-2023 [facility] Start: 04-15-2023 Admission procedure [facility] Start: 04-15-2023 Verification routine [facility] Start: 04-15-2023 Referral to service [facility] Start: 04-15-2023 [facility] Start: 04-04-2023 Referral to service [facility] Start: 03-25-2023 Referral to service [facility] Start: 03-19-2023 Patient discharge [facility] Start: 03-17-2023 Consultation for treatment [facility] Start: 03-17-2023 Following clinical pathway protocol [facility] Start: 03-17-2023 Assessment of risk o f venous thromboembolism [facility] Start: 03-17-2023 Insertion of cathete r into peripheral vein [facility] Start: 03-17-2023 Providing care accor ding to [facility] Start: 03-17-2023 Provision of activit y privileges [facility] Start: 03-17-2023 Referral to occupati onal therapist [facility] Start: 03-17-2023 Referral to service [facility] Start: 03-17-2023 [facility] Start: 03-17-2023 Admission procedure [facility] Start: 03-17-2023 Patient referral to dietitian [facility] Start: 03-12-2023 Patient referral [facility] Work Phone: Start: 02-26-2023 [facility] Start: 01-15-2023 [facility] Start: 10-03-2022 Screening for osteoporosis Bone Density Screening [facility] Start: 08-26-2022 ADVANCE DIRECTIVE DISCUSSION ADVANCE DIRECTIVE DISCUSSION [facility] Start: 08-26-2022 DEPRESSION ASSESSMENT DEPRESSION ASS ESSMENT [facility] Start: 05-11-2022 Patient referral [facility] Work Phone: Start: 05-08-2022 [facility] Work Phone: Start: 04-26-2022 Influenza vaccination [facility] Start: 02-28-2022 Patient referral [facility] Work Phone: Start: 01-18-2022 [facility] Work Phone: Start: 01-16-2022 [facility] Work Phone: Start: 12-06-2021 COVID-19 VACCINE (4 - Booster for Moderna series) COVID-19 VACCINE (4 - Booster for Moderna series) [facility] Start: 10-02-2021 COVID-19 VACCINE (4 - Booster for Moderna series) COVID-19 VACCINE (4 - Booster for Moderna series) [facility] Start: 10-02-2021 COVID-19 VACCINE (4 - Moderna series) COVID-19 VACCINE (4 - Moderna series) [facility] Start: 08-26-2021 ADVANCE DIRECTIVE DISCUSSION ADVANCE DIRECTIVE DISCUSSION [facility] Start: 08-26-2021 DEPRESSION ASSESSMENT DEPRESSION ASS ESSMENT [facility] Start: 07-11-2020 DIABETES SCREEN DIABETES SCREEN [facility] Start: 02-03-2016 Hepatitis B surface antibody level LDL CHOLESTEROL [facility] Start: 2013 RSV Vaccine (1 - 1-d ose 75+ series) RSV Vaccine (1 - 1-dose 75+ series) [facility] Start: 2003 Pneumococcal Vaccine : 65+ (1 - PCV) Pneumococcal Vaccine: 65+ (1 - PCV) [facility] Start: 2003 PNEUMOCOCCAL: 65+ (1 - PCV) PNEUMOCOCCAL: 65+ (1 - PCV) [facility] Start: 2003 PNEUMOVAX AGE 65 AND OVER WITH 5YR LOOKBACK (#1) PNEUMOVAX AGE 65 AND OVER WITH 5YR LOOKBACK (#1) [facility] Start: 1998 RSV Vaccine (1 - 1-d ose 60+ series) RSV Vaccine (1 - 1-dose 60+ series) [facility] Start: 1988 SHINGRIX VACCINE (1 of 2) MIDDLETON GRIX VACCINE (1 of 2) [facility] Start: 1957 SHINGRIX VACCINE (1 of 2) MIDDLETON GRIX VACCINE (1 of 2) [facility] Start: 1957 Urine microalbumin profile [facility] Start: 1956 Anxiety Screening Anxiety Screening [facility] Start: 1956 Depression Screening Depression Scre ening [facility] Start: 1944 PNEUMOCOCCAL: 65+ (1 - PCV) PNEUMOCOCCAL: 65+ (1 - PCV) [facility] Bacteria identified in Wound by Culture ABSCESS AND WOUND CULTURE WITH GRAM STAIN Microbiology Routine Ingrowing toenail of left foot 07/05/2023 4:34 PM EST [facility] Work Phone: Patient Education [facility] Work Phone: Patient referral [facility] Work Phone: End: 10-11-2023 XR FOOT GENERAL 3V AP/LAT/OBL LEFT XR FOOT GENERAL 3V AP/LAT/OBL LEFT Radiology Routine Plantar fasciitis 1 Occurrences starting 09/11/2022 until 10/11/2023 [facility] Work Phone: Comment on above: 1 Occurrences starti ng 09/11/2022 until 10/11/2023 XR FOOT GENERAL 3V AP/LAT/OBL LEFT XR FOOT GENERAL 3V AP/LAT/OBL LEFT Radiology Routine Plantar fasciitis 09/11/2022 3:56 PM EST [facility] Work Phone: End: 08-03-2024 XR TOE AP/LAT/OBL LEFT XR TOE AP/LAT/OBL LEFT Radiology Routine Ingrowing toenail of left foot 1 Occurrences starting 07/05/2023 until 08/03/2024 [facility] Work Phone: Comment on above: 1 Occurrences starti ng 07/05/2023 until 08/03/2024 XR TOE AP/LAT/OBL LEFT XR TOE AP /LAT/OBL LEFT Radiology Routine Ingrowing toenail of left foot 07/17/2023 3:34 PM EST [facility] Work Phone: [facility] Immunizations Immunization Date Immunization Notes Care Provider [facility] 2022 influenza virus vaccine, unspecified formulation Grace Lemon PT [facility] 12-02-2020 Covid (Moderna) Dr. Gomez [facility] Work Phone: [facility] 11-01-2020 Marcelaid (Moderna) Dr. Jason Putnam Work Phone: [facility] 07-02-2017 tetanus toxoid, redu judy diphtheria toxoid, and acellular pertussis vaccine, adsorbed Dr. Jason Benitez Work Phone: [facility] Payers Date Payer Category Payer Self-pay [id number] [phone] [id number] 2019 Medicare [employer]NA MEDICARE HU[employer]NA MEDICARE PPO [id number] 2019-Present [id number] [place] [address] PPO [id number] 2019 Medicare HUMANA MEDICARE HU[employer]NA MEDICARE PPO [id number] 2019-Present [phone] [place] [address] PPO [id number]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 Visit Count: 124 Therapist That Will Accept/Oversee The Plan Of Care: Grace Bonds Start of Care Date: 03/13/21 Onset Date: 02/20/21 (past several weeks) Plan of Care Certification Date: 11/13/24 Next Certification Due Date: 01/13/25 Patient Identified by Name and Date of : Yes REHABILITATION AND SPORTS THERAPY PHYSICAL THERAPY TREATMENT NOTE ASSESSMENT: Chema B Ga tolerated the session with no issues. She demonstrated improvements in skin and soft tissue condition B lower legs. The patient will continue to benefit from ongoing skilled physical therapy to progress toward set goals. PLAN FOR NEXT VISIT: May use seated stepper machine prior to MLD if time permits. Continue MLD and compression wrapping. SUBJECTIVE: Pt is rescheduled to see Dr. Benitez next for follow up. Rreports her legs are still itchy in certain locations, mostly around her ankles. Pain: Pain Pain Level: (Denies specific pain today.) Pain Location: Knee - Left Post Treatment Pain Post Treatment Pain Level: 0 OBJECTIVE MEASURES WITH LEVEL OF FUNCTION: Lymphedema Comment: Pt to dept with wraps that were applied previous visit still in place. Color Comments:: B lower lwegs with more normal coloration and pink areas versus red at previous visit. Pitting Edema Comments:: No pitting Fibrosis Comments:: Present at B lower legs and ankles Lymphorrhea Comments:: No lymphorrhea present today (though several dried areas on padding/stockinette over L anterolateral lower leg and fewer and smaller spots R lower leg. TREATMENT: Manual Therapy: 1: MLD B LE sequence, beginning with abdominal series, deferred short neck series d/t pt age precaution. 2: Applied short stretch wraps to B lower legs including stockinette, Artiflex padding, and short-stretch wraps utilizing appropriate compression gradient. (This time is not included in the skilled treatment time.) Skilled Intervention: Manual skills to improve joint mobility, ROM, and decrease pain. Utilized anatomy knowledge of the therapist, and assessment of patient's response to intervention. Manual techniques to facilitate lymphatic dynamics and improve condition of tissue. Manual techniques were performed with clinical decision-making regarding amount of stretch, intensity of pressure and assessment of responses. Billing KX Modifier : Therapist attests that services rendered are medically necessary. Manual TherapyTreatment Minutes: 55 Skilled Treatment Time Minutes (timed and untimed codes): 55 Total Session Time (minutes): 66 Session Start Time : 1447 Session Stop Time : 1553 Grace Bonds PT documented in [facility] encounter[facility] [place]25 NoteHNO ID: [id number] Author: GRACE BONDS PT Service: ? Author Type: Physical Therapist Type: Progress Notes Filed: 11/13/2024 16:42 Note Text: Episode Visit Count: 123 Therapist That Will Accept/Oversee The Plan Of Care: Grace Bonds Start of Care Date: 03/13/21 Onset Date: 02/20/21 (past several weeks) Plan of Care Certification Date: 11/13/24 Next Certification Due Date: 01/13/25 Patient Identified by Name and Date of : Yes REHABILITATION AND SPORTS THERAPY PHYSICAL THERAPY PROGRESS REPORT PLAN OF CARE UPDATE: Assessment: Chema Koroma demonstrates difficulty with increased edema and lymphorrhea with development of cellulitis, transfers and walking in the community. The patient has not progressed recently d/t new onset of infection. Patient continues to present with impairments in edema management, overall function, soft tissue healing, and wound healing that interfere with walking in the community, stair negotiation . Current prognosis is Good due to: current objective clinical presentation, positive past response to therapy, Prognosis may be limited due to multiple co- morbidities, chronic nature of impairments, limited support system . The patient will benefit from continued skilled therapy services to meet the updated goals for this plan of care as noted below. Goals for Episode of Care: created on 03/13/21 through 05/14/21 Goals updated on 11/13/2024. Patient / family knowledgeable re: all pertinent aspects of CDT (Met) Patient / family independent with donning / doffing compression garment and proper wearing schedule and care of garment (Not Met)-Pt has not purchased stockings or inelastic garment yet. Patient / family independent with home exercise program (Met)-able, though poor compliance Patient will decrease circumferential measurements by 0.5-13.0 cm in the following areas: B LE for decreased recurrence of infection, improved mobility, improved range of motion and allow appropriate fit in compressive garment. (Partially Met)-Improved for R leg, increased for L leg. Pt to demonstrate reduction of lymphorrhea to allow for wearing of custom compression garments. (Not Met) Pt will perform supine <> sit transfer independently. (Partially Met)-at times requires assist for LE onto plinth. Pt will ambulate with decreased effort. (Met) 10/06/22: Pt will demonstrate reduction in L LE fibrosis (intensity and area). (Met) Patient Goals: To stop the draining and get the left leg smaller again. (Not Met) 01/04/23, modified 02/14/24: Pt will obtain appropriate fitting compression garment (likely inelastic velcro) for R LE. (Not Met) 05/24/23: Pt will increase B LE strength to 4+ to 5/5 to improve ability to perform transfers and gait. (Not Met) Pt will demonstrate improved gait pattern to increase functional walking distance and improve safety/decreasedrisk of falls. (Partially Met) Dx: Lower extremity edema Post-Acute Discharge Plan: From home. Lives alone with 3 cats. Reports Mostly Independent. States has a private caregiver Patrizia. Patient states she was staying with Patrizia for 2 weeks prior to admission due to concrete work being done near her home. Patient states she wants to return home at discharge. Ambulates with Quad Cane. Has Walker and Wheelchair. Shower Chair and Shower Grab Bars at home. Time Frame for Goals and Treatment : 01/13/25 Planned Interventions, Frequency, and Duration: 1x/week, 8 weeks Total Number of Visits Planned: 8 Patient to be seen for Therapeutic exercise (82873), Manual therapy (02268), Self-correction management (76991), Patient/Family/Caregiver Education PLAN FOR NEXT VISIT: Continue exercise, MLD, and compression to improve skin/soft tissue condition and promote healing. Facilitate pt obtaining appropriate compression for pt management and for prevention of further cellulitis/infection. SUBJECTIVE: Pt states she went to the ER on Saturday. Did a blood culture and was told she had cellulitis. Scheduled to see Dr. Benitez on Saturday for ER follow up. Started on antibiotic Saturday night. Functional Limitations: walking in the community, stair negotiation Pain: Post Treatment Pain Post Treatment Pain Level: 0 PROMIS Scales 04/17/2024 Higher is Better Phys Func - T Score 38 (moderate dysfunction) Phys Func - Percentile 12 Self-Eff Symptom - T Score 41 (Average) Self-Eff Symptom - Percentile 18 T-scores: mean of general population = 50. 5 points is clinically meaningfully difference Percentiles provide an indication of how the patient's score ranks in relation to the general population. Higher percentile rankings indicate better function/quality of life. 50th percentile is the average of the general population and indicates half of respondents had a worse score. OBJECTIVE MEASURES WITH LEVEL OF FUNCTION: Lymphedema Pitting Edema Comments:: No pitting Fibrosis Comments:: Present at B (more content not included)...[facility]03-21-2025 History of Present illness Narrative* Grace Bonds, PT - 11/13/2024 4:03 PM EDT Images from the original note were not included. Episode Visit Count: 123 Therapist That Will Accept/Oversee The Plan Of Care: Chrispranav Grace Start of Care Date: 03/13/21 Onset Date: 02/20/21 (past several weeks) Plan of Care Certification Date: 11/13/24 Next Certification Due Date: 01/13/25 Patient Identified by Name and Date of : Yes REHABILITATION AND SPORTS THERAPY PHYSICAL THERAPY PROGRESS REPORT PLAN OF CARE UPDATE: Assessment: Chema Koroma demonstrates difficulty with increased edema and lymphorrhea with development of cellulitis, transfers and walking in the community. The patient has not progressed recently d/t new onset of infection. Patient continues to present with impairments in edema management, overall function, soft tissue healing, and wound healing that interfere with walking in the community, stair negotiation . Current prognosis is Good due to: current objective clinical presentation, positive past response to therapy, Prognosis may be limited due to multiple co- morbidities, chronic nature of impairments, limited support system . The patient will benefit from continued skilled therapy services to meet the updated goals for this plan of care as noted below. Goals for Episode of Care: created on 03/13/21 through 05/14/21 Goals updated on 11/13/2024. Patient / family knowledgeable re: all pertinent aspects of CDT (Met) Patient / family independent with donning / doffing compression garment and proper wearing schedule and care of garment (Not Met)-Pt has not purchased stockings or inelastic garment yet. Patient / family independent with home exercise program (Met)-able, though poor compliance Patient will decrease circumferential measurements by 0.5-13.0 cm in the following areas: B LE for decreased recurrence of infection, improved mobility, improved range of motion and allow appropriate fit in compressive garment. (Partially Met)-Improved for R leg, increased for L leg. Pt to demonstrate reduction of lymphorrhea to allow for wearing of custom compression garments. (Not Met) Pt will perform supine <> sit transfer independently. (Partially Met)-at times requires assist for LE onto plinth. Pt will ambulate with decreased effort. (Met) 10/06/22: Pt will demonstrate reduction in L LE fibrosis (intensity and area). (Met) Patient Goals: To stop the draining and get the left leg smaller again. (Not Met) 01/04/23, modified 02/14/24: Pt will obtain appropriate fitting compression garment (likely inelasticvelcro) for R LE. (Not Met) 05/24/23: Pt will increase B LE strength to 4+ to 5/5 to improve ability to perform transfers and gait. (Not Met) Pt will demonstrate improved gait pattern to increase functional walking distance and improve safety/decreasedrisk of falls. (Partially Met) Dx: Lower extremity edema Post-Acute Discharge Plan: From home. Lives alone with 3 cats. Reports Mostly Independent. States has a private caregiver Patrizia. Patient states she was staying with Patrizia for 2 weeks prior to admission due to concrete work being done near her home. Patient states she wants to return home at discharge. Ambulates with Quad Cane. Has Walker and Wheelchair. Shower Chair and Shower Grab Bars at home. Time Frame for Goals and Treatment : 01/13/25 Planned Interventions, Frequency, and Duration: 1x/week, 8 weeks Total Number of Visits Planned: 8 Patient to be seen for Therapeutic exercise (32677), Manual therapy (54602), Self-correction management (17294), Patient/Family/Caregiver Education PLAN FOR NEXT VISIT: Continue exercise, MLD, and compression to improve skin/soft tissue condition and promote healing. Facilitate pt obtaining appropriate compression for pt management and for prevention of further cellulitis/infection. SUBJECTIVE: Pt states she went to the ER on Saturday. Did a blood culture and was told she had cellulitis. Scheduled to see Dr. Benitez on Saturday for ER follow up. Started on antibiotic Saturday night. Functional Limitations: walking in the community, stair negotiation Pain: Post Treatment Pain Post Treatment Pain Level: 0 PROMIS Scales 04/17/2024 Higher is Better Phys Func - T Score 38 (moderate dysfunction) Phys Func - Percentile 12 Self-Eff Symptom - T Score 41 (Average) Self-Eff Symptom - Percentile 18 T-scores: mean of general population = 50. 5 points is clinically meaningfully difference Percentiles provide an indication of how the patient's score ranks in relation to the general population. Higher percentile rankings indicate better function/quality of life. 50th percentile is the average of the general population and indicates half of respondents had a worse score. OBJECTIVE MEASURES WITH LEVEL OF FUNCTION: Lymphedema Pitting Edema Comments:: No pitting Fibrosis Comments:: Present at B lower legs and ankles Dryness/Flaking of Skin Comments:: Small area of skin irritation at L anterolateral ankle crease area that is dry and does not appear symptomatic. (Not red, itchy, no drainage or raises areas, etc.) Two raw skin areas R anterior lower leg, no weeping observed. Larger raw area L anterior lower leg sk in pinkinsh in color. Lymphorrhea Comments:: Moderate wetness at ankle area of L sock only. L anterior distal half lower leg with gradual weeping clear fluid slowly during treatment today. Lower Extremity Circumferential Measurements R 1st toe (proximal phalanx): 9 R Metatarsal Phalangeal (MTP): 22 R Arch: 24.5 R 5 cm from floor: 28 cm R 10 cm from floor: 25 cm R 15 cm from floor: 29.5 cm R 20 cm from floor: 35.5 cm R 25 cm from floor: 41 cm R 30 cm from floor: 43 cm R 35 cm from floor: 44.5 cm R 40 cm from floor: 47 cm R 45 cm from floor: 48 cm (knee) R 50 cm from floor: 51.5 cm R 55 cm from floor: 53.5 cm L 1st toe (proximal phalanx): 8.5 L Metatarsal Phalangeal (MTP): 24.5 L Arch: 25.5 L 5 cm from floor: 29.5 cm L 10 cm from floor: 31 cm L 15 cm from floor: 50 cm L 20 cm from floor: 56 cm L 25 cm from floor: 56 cm L 30 cm from floor: 57.5 cm L 35 cm from floor: 57 cm L 40 cm from floor: 56.5 cm (knee) L 45 cm from floor: 60 cm L 50 cm from floor: 62 cm L 55 cm from floor: 60.5 cm Affected Leg: Bilateral, Left Leg Larger Calculate Volume : Yes R Lower Extremity Volume: 6860 L Lower Extremity Volume: 50978 Difference in Volume: 4732 Difference in % : 68.98 Gait Gait Observation: Independent transfers sit <> stand from w/c and plinth. Min assist for elevating LEs supine <> sit. Independent with gait using quad cane. TREATMENT: Manual Therapy: 1: MLD B LE sequence, deferred short neck series d/t pt age precaution. 2: Applied short stretch wraps to B lower legs including stockinette, Artiflex padding, and short-stretch wraps utilizing appropriate copression gradient. (This time is not included in the skilled treatment time.) Skilled Intervention: Manual skills to improve joint mobility, ROM, and decrease pain. Utilized anatomy knowledge of the therapist, and assessment of patient's response to intervention. Manual techniques to facilitate lymphatic dynamics and improve condition of tissue. Manual techniques were performed with clinical decision-making regarding amount of stretch, intensity of pressure and assessment of responses. Billing KX Modifier : Therapist attests that services rendered are medically necessary. Manual TherapyTreatment Minutes: 55 Skilled Treatment Time Minutes (timed and untimed codes): 55 Total Session Time (minutes): 67 Session Start Time : 1445 Session Stop Time : 155 Grace Bonds PT [facility] [place] NoteHNO ID: [id number] Author: GRACE BONDS PT Service: ? Author Type: Physical Therapist Type: Progress Notes Filed: 10/30/2024 16:17 Note Text: Episode Visit Count: 122 Therapist That Will Accept/Oversee The Plan Of Care: Grcae Bonds Start of Care Date: 03/13/21 Onset Date: 02/20/21 (past several weeks) Plan of Care Certification Date: 09/17/24 Next Certification Due Date: 11/02/24 Patient Identified by Name and Date of : Yes REHABILITATION AND SPORTS THERAPY PHYSICAL THERAPY TREATMENT NOTE ASSESSMENT: Chema Koroma tolerated the session with no issues. She demonstrated difficulty with increased edema, significant lymphorrhea, and skin breakdown B lower legs. The patient will continue to benefit from ongoing skilled physical therapy for reassessment by supervising therapist. PLAN FOR NEXT VISIT: POC update SUBJECTIVE: Pt states she has not been out of her house since end august. she reports her legs are weeping again, but does not know when that started. Pain: Pain Pain Location: Knee - Left Post Treatment Pain Post Treatment Pain Level: No Change OBJECTIVE MEASURES WITH LEVEL OF FUNCTION: Lymphedema Comment: Pt to dept with wraps removed at home and feet/legs washed prior to arrival. She brings her short-stretch supplies in tow. Pitting Edema Comments:: No pitting Fibrosis Comments:: Present at B lower legs and ankles Lymphorrhea Comments:: Significant wetness of her socks when removed today. One area of visible bleeding from a small skin opening. Other small areas of raw skin on both lower legs L>R. TREATMENT: Manual Therapy: 1: MLD B LE sequence, deferred short neck series d/t pt age precaution. 2: Strongly reccommended pt follow up with her physician to evaluate her skin d/t c;oncern for infection to develop with increased weeping and raw areas. Instructed pt to perform her LE Decongestive Exercises (HEP) and previously instructed LE strengthening exercises every day. Skilled Intervention: Manual skills to improve joint mobility, ROM, and decrease pain. Utilized anatomy knowledge of the therapist, and assessment of patient's response to intervention. Manual techniques were performed with clinical decision-making regarding amount of stretch, intensity of pressure and assessment of responses. Manual techniques to facilitate lymphatic dynamics and improve condition of tissue. Billing KX Modifier : Therapist attests that services rendered are medically necessary. Manual TherapyTreatment Minutes: 55 Skilled Treatment Time Minutes (timed and untimed codes): 55 Total Session Time (minutes): 55 Session Start Time : 1450 Session Stop Time : 1545 Grace Bonds [facility]03-07-2025 History of Present illness Narrative* Grace Bonds, PT - 10/30/2024 4:01 PM EST Episode Visit Count: 122 Therapist That Will Accept/Oversee The Plan Of Care: Grace Bonds Start of Care Date: 03/13/21 Onset Date: 02/20/21 (past several weeks) Plan of Care Certification Date: 09/17/24 Next Certification Due Date: 11/02/24 Patient Identified by Name and Date of : Yes REHABILITATION AND SPORTS THERAPY PHYSICAL THERAPY TREATMENT NOTE ASSESSMENT: Chema B Ga tolerated the session with no issues. She demonstrated difficulty with increased edema, significant lymphorrhea, and skin breakdown B lower legs. The patient will continue to benefit from ongoing skilled physical therapy for reassessment by supervising therapist. PLAN FOR NEXT VISIT: POC update SUBJECTIVE: Pt states she has not been out of her house since end august. she reports her legs are weeping again, but does not know when that started. Pain: Pain Pain Location: Knee - Left Post Treatment Pain Post Treatment Pain Level: No Change OBJECTIVE MEASURES WITH LEVEL OF FUNCTION: Lymphedema Comment: Pt to dept with wraps removed at home and feet/legs washed prior to arrival. She brings her short-stretch supplies in tow. Pitting Edema Comments:: No pitting Fibrosis Comments:: Present at B lower legs and ankles Lymphorrhea Comments:: Significant wetness of her socks when removed today. One area of visible bleeding from a small skin opening. Other small areas of raw skin on both lower legs L>R. TREATMENT: Manual Therapy: 1: MLD B LE sequence, deferred short neck series d/t pt age precaution. 2: Strongly reccommended pt follow up with her physician to evaluate her skin d/t c;oncern for infection to develop with increased weeping and raw areas. Instructed pt to perform her LE Decongestive Exercises (HEP) and previously instructed LE strengthening exercises every day. Skilled Intervention: Manual skills to improve joint mobility, ROM, and decrease pain. Utilized anatomy knowledge of the therapist, and assessment of patient's response to intervention. Manual techniques were performed with clinical decision-making regarding amount of stretch, intensity of pressureand assessment of responses. Manual techniques to facilitate lymphatic dynamics and improve condition of tissue. Billing KX Modifier : Therapist attests that services rendered are medically necessary. Manual TherapyTreatment Minutes: 55 Skilled Treatment Time Minutes (timed and untimed codes): 55 Total Session Time (minutes): 55 Session Start Time : 1450 Session Stop Time : 1545 Grace Bonds PT documented in this [facility] [place] NoteHNO ID: [id number] Author: GRACE BONDS PT Service: ? Author Type: Physical Therapist Type: Progress Notes Filed: 09/25/2024 16:21 Note Text: Episode Visit Count: 121 Therapist That Will Accept/Oversee The Plan Of Care: Grace Bonds Start of Care Date: 03/13/21 Onset Date: 02/20/21 (past several weeks) Plan of Care Certification Date: 09/17/24 Next Certification Due Date: 11/02/24 Patient Identified by Name and Date of : Yes REHABILITATION AND SPORTS THERAPY PHYSICAL THERAPY TREATMENT NOTE ASSESSMENT: Chema Koroma tolerated the session with no issues. She demonstrated difficulty with lack of good skin hygiene d/t non-removal of compression bandages for extended periods of time. The patient will continue to benefit from ongoing skilled physical therapy for reassessment by supervising therapist. PLAN FOR NEXT VISIT: POC update SUBJECTIVE: Pt reporting she has not been out of her house for 3 weeks so has not been walking much. States her knee is feeling more painful again. Pain: Pain Pain Level: (not rated numerically) Pain Location: Knee - Left Post Treatment Pain Post Treatment Pain Level: No Change OBJECTIVE MEASURES WITH LEVEL OF FUNCTION: Lymphedema Comment: Pt to dept having just removed matt short-stretch wraps from her legs. Pitting Edema Comments:: No pitting noticed today. Fibrosis Comments:: present at B malleolar region Dryness/Flaking of Skin Comments:: Significant dryness and flaking both legs and feet. (Of note, pt's aidePatrizia, washed her legs and feet with a wash cloth prior to therapist performing MLD. Skin appearance was greatly improved after this.) Lymphorrhea Comments:: No seeping, but some pink areas of skin. Gait Gait Observation: Independent transfers supine to sit, sit to supine with min assist for elevating LEs, independent with gait and sit <>stand using quad cane. Pt had a little more difficulty adn slower to stand up out of the w/c and off of plinth today compared to previous session. TREATMENT: Manual Therapy: 1: MLD B LE sequence, deferred short neck series d/t pt age precaution. 2: Continued pt education regarding importance of skin hygiene and infection prevention, including use of more effective and self-manageble compression, for example, inelastic velcro wraps. Skilled Intervention: Manual skills to improve joint mobility, ROM, and decrease pain. Utilized anatomy knowledge of the therapist, and assessment of patient's response to intervention. Billing KX Modifier : Therapist attests that services rendered are medically necessary. Manual TherapyTreatment Minutes: 67 Skilled Treatment Time Minutes (timed and untimed codes): 67 Total Session Time (minutes): 67 Session Start Time : 1448 Session Stop Time : 1555 Grace Bonds [facility]01-31-2025 History of Present illness Narrative* Grace Bonds, PT - 09/25/2024 2:54 PM EST Episode Visit Count: 121 Therapist That Will Accept/Oversee The Plan Of Care: Grace Bonds Start of Care Date: 03/13/21 Onset Date: 02/20/21 (past several weeks) Plan of Care Certification Date: 09/17/24 Next Certification Due Date: 11/02/24 Patient Identified by Name and Date of : Yes REHABILITATION AND SPORTS THERAPY PHYSICAL THERAPY TREATMENT NOTE ASSESSMENT: Chema Koroma tolerated the session with no issues. She demonstrated difficulty with lack of good skin hygiene d/t non-removal of compression bandages for extended periods of time. The patient will continue to benefit from ongoing skilled physical therapy for reassessment by supervising therapist. PLAN FOR NEXT VISIT: POC update SUBJECTIVE: Pt reporting she has not been out of her house for 3 weeks so has not been walking much. States her knee is feeling more painful again. Pain: Pain Pain Level: (not rated numerically) Pain Location: Knee - Left Post Treatment Pain Post Treatment Pain Level: No Change OBJECTIVE MEASURES WITH LEVEL OF FUNCTION: Lymphedema Comment: Pt to dept having just removed matt short-stretch wraps from her legs. Pitting Edema Comments:: No pitting noticed today. Fibrosis Comments:: present at B malleolar region Dryness/Flaking of Skin Comments:: Significant dryness and flaking both legs and feet. (Of note, pt's aidePatrizia, washed her legs and feet with a wash cloth prior to therapist performing MLD. Skin appearance was greatly improved after this.) Lymphorrhea Comments:: No seeping, but some pink areas of skin. Gait Gait Observation: Independent transfers supine to sit, sit to supine with min assist for elevating LEs, independent with gait and sit <>stand using quad cane. Pt had a little more difficulty adn slower to stand up out of the w/c and off of plinth today compared to previous session. TREATMENT: Manual Therapy: 1: MLD B LE sequence, deferred short neck series d/t pt age precaution. 2: Continued pt education regarding importance of skin hygiene and infection prevention, including use of more effective and self-manageble compression, for example, inelastic velcro wraps. Skilled Intervention: Manual skills to improve joint mobility, ROM, and decrease pain. Utilized anatomy knowledge of the therapist, and assessment of patient's response to intervention. Billing KX Modifier : Therapist attests that services rendered are medically necessary. Manual TherapyTreatment Minutes: 67 Skilled Treatment Time Minutes (timed and untimed codes): 67 Total Session Time (minutes): 67 Session Start Time : 1448 Session Stop Time : 1555 Grace Bonds PT documented in this encounter[facility] [place] NoteHNO ID: [id number] Author: GRACE BONDS PT Service: ? Author Type: Physical Therapist Type: Progress Notes Filed: 09/04/2024 16:39 Note Text: Episode Visit Count: 120 Therapist That Will Accept/Oversee The Plan Of Care: Grace Bonds Start of Care Date: 03/13/21 Onset Date: 02/20/21 (past several weeks) Plan of Care Certification Date: 09/17/24 Next Certification Due Date: 11/02/24 Patient Identified by Name and Date of : Yes REHABILITATION AND SPORTS THERAPY PHYSICAL THERAPY PROGRESS REPORT PLAN OF CARE UPDATE: Assessment: Chema Koroma demonstrates difficulty with skin care, soft tissue condition B lower legs and feet, and walking in the community. The patient has not progressed since last progress update as she has not returned for treatment until today. Patient continues to present with impairments in edema management and skin and soft tissue condition that interfere with walking in the community . Current prognosis is Good due to: positive past response to therapy, Prognosis may be limited due to, current objective clinical presentation multiple co- morbidities, chronic nature of impairments, limited support system . The patient will benefit from continued skilled therapy services to meet the updated goals for this plan of care as noted below. Goals for Episode of Care: created on 03/13/21 through 05/14/21 Goals updated on 09/04/2023. Patient / family knowledgeable re: all pertinent aspects of CDT (Met) Patient / family independent with donning / doffing compression garment and proper wearing schedule and care of garment (Not Met)-Pt has not purchased stockings or inelastic garment yet. Patient / family independent with home exercise program (Met)-able, though poor compliance Patient will decrease circumferential measurements by 0.5-13.0 cm in the following areas: B LE for decreased recurrence of infection, improved mobility, improved range of motion and allow appropriate fit in compressive garment. (Partially Met)-Improved for R leg, increased for L leg. Pt to demonstrate reduction of lymphorrhea to allow for wearing of custom compression garments. (Met) Pt will perform supine <> sit transfer independently. (Partially Met)-at times requires assist for LE onto plinth. Pt will ambulate with decreased effort. (Met) 10/06/22: Pt will demonstrate reduction in L LE fibrosis (intensity and area). (Met) Patient Goals: To stop the draining and get the left leg smaller again. (Not Met) 01/04/23, modified 02/14/24: Pt will obtain appropriate fitting compression garment (likely inelastic velcro) for R LE. (Not Met) 05/24/23: Pt will increase B LE strength to 4+ to 5/5 to improve ability to perform transfers and gait. (Not Met) Pt will demonstrate improved gait pattern to increase functional walking distance and improve safety/decreasedrisk of falls. (Met) Dx: Lower extremity edema Post-Acute Discharge Plan: From home. Lives alone with 3 cats. Reports Mostly Independent. States has a private caregiver Patrizia. Patient states she was staying with Patrizia for 2 weeks prior to admission due to concrete work being done near her home. Patient states she wants to return home at discharge. Ambulates with Quad Cane. Has Walker and Wheelchair. Shower Chair and Shower Grab Bars at home. Time Frame for Goals and Treatment : 11/02/24 Planned Interventions, Frequency, and Duration: 1x/week, 8 weeks Total Number of Visits Planned: 8 Patient to be seen for Therapeutic exercise (29118), Manual therapy (88933), Self-correction management (32135), Patient/Family/Caregiver Education PLAN FOR NEXT VISIT: Resume MLD and short-stretch bandaging. May add LE exercise/seated stepper if knee will tolerate now that pain is reduced after injection. Continue to recommend pt obtaining inelastic wraps to improve self-management and skin condition (able to remove to bathe, etc.). SUBJECTIVE: Pt stating she had injection in her R knee last . Functional Limitations: walking in the community Pain: Pain Pain Level: 0 Post Treatment Pain Post Treatment Pain Level: 0 PROMIS Scales 04/17/2024 Higher is Better Phys Func - Score 38 (moderate dysfunction) Phys Func - Percentile 12 Self-Eff Symptom - Score 41 (Average) Self-Eff Symptom - Percentile 18 T-scores: mean of general population = 50. 5 points is clinically meaningfully difference Percentiles provide an indication of how the patient's score ranks in relation to the general population. Higher percentile rankings indicate better function/quality of life. 50th percentile is the average of the general population and indicates half of respondents had a worse score. OBJECTIVE MEASURES WITH LEVEL OF FUNCTION: Lymphedema Comment: Pt to dept with short stretch wraps on both legs. Pitting Edema Comments:: mild pitting R calf Fibrosis Comments:: present at B malleolar region Dryness/Flaking of Skin Commen (more content not included)...[facility]01-10-2025 History of Present illness Narrative* Grace Bonds, PT - 09/04/2024 2:48 PM EST Images from the original note were not included. Episode Visit Count: 120 Therapist That Will Accept/Oversee The Plan Of Care: Grace Bonds Start of Care Date: 03/13/21 Onset Date: 02/20/21 (past several weeks) Plan of Care Certification Date: 09/17/24 Next Certification Due Date: 11/02/24 Patient Identified by Name and Date of : Yes REHABILITATION AND SPORTS THERAPY PHYSICAL THERAPY PROGRESS REPORT PLAN OF CARE UPDATE: Assessment: Chemaanupama Koroma demonstrates difficulty with skin care, soft tissue condition B lower legs and feet, and walking in the community. The patient has not progressed since last progress update as she has not returned for treatment until today. Patient continues to present with impairments in edema management and skin and soft tissue condition that interfere with walking in the community . Current prognosis is Good due to: positive past response to therapy, Prognosis may be limited due to, currentobjective clinical presentation multiple co- morbidities, chronic nature of impairments, limited support system . The patient will benefit from continued skilled therapy services to meet the updated goals for this plan of care as noted below. Goals for Episode of Care: created on 03/13/21 through 05/14/21 Goals updated on 09/04/2023. Patient / family knowledgeable re: all pertinent aspects of CDT (Met) Patient / family independent with donning / doffing compression garment and proper wearing schedule and care of garment (Not Met)-Pt has not purchased stockings or inelastic garment yet. Patient / family independent with home exercise program (Met)-able, though poor compliance Patient will decrease circumferential measurements by 0.5-13.0 cm in the following areas: B LE for decreased recurrence of infection, improved mobility, improved range of motion and allow appropriate fit in compressive garment. (Partially Met)-Improved for R leg, increased for L leg. Pt to demonstrate reduction of lymphorrhea to allow for wearing of custom compression garments. (Met) Pt will perform supine <> sit transfer independently. (Partially Met)-at times requires assist for LE onto plinth. Pt will ambulate with decreased effort. (Met) 10/06/22: Pt will demonstrate reduction in L LE fibrosis (intensity and area). (Met) Patient Goals: To stop the draining and get the left leg smaller again. (Not Met) 01/04/23, modified 02/14/24: Pt will obtain appropriate fitting compression garment (likely inelasticvelcro) for R LE. (Not Met) 05/24/23: Pt will increase B LE strength to 4+ to 5/5 to improve ability to perform transfers and gait. (Not Met) Pt will demonstrate improved gait pattern to increase functional walking distance and improve safety/decreasedrisk of falls. (Met) Dx: Lower extremity edema Post-Acute Discharge Plan: From home. Lives alone with 3 cats. Reports Mostly Independent. States has a private caregiver Patrizia. Patient states she was staying with Patrizia for 2 weeks prior to admission due to concrete work being done near her home. Patient states she wants to return home at discharge. Ambulates with Quad Cane. Has Walker and Wheelchair. Shower Chair and Shower Grab Bars at home. Time Frame for Goals and Treatment : 11/02/24 Planned Interventions, Frequency, and Duration: 1x/week, 8 weeks Total Number of Visits Planned: 8 Patient to be seen for Therapeutic exercise (98697), Manual therapy (62173), Self-correction management (77515), Patient/Family/Caregiver Education PLAN FOR NEXT VISIT: Resume MLD and short-stretch bandaging. May add LE exercise/seated stepper if knee will tolerate now that pain is reduced after injection. Continue to recommend pt obtaining inelastic wraps to improve self- management and skin condition (able to remove to bathe, etc.). SUBJECTIVE: Pt stating she had injection in her R knee last . Functional Limitations: walking in the community Pain: Pain Pain Level: 0 Post Treatment Pain Post Treatment Pain Level: 0 PROMIS Scales 04/17/2024 Higher is Better Phys Func - Score 38 (moderate dysfunction) Phys Func - Percentile 12 Self-Eff Symptom - Score 41 (Average) Self-Eff Symptom - Percentile 18 T-scores: mean of general population = 50. 5 points is clinically meaningfully difference Percentiles provide an indication of how the patient's score ranks in relation to the general population. Higher percentile rankings indicate better function/quality of life. 50th percentile is the average of the general population and indicates half of respondents had a worse score. OBJECTIVE MEASURES WITH LEVEL OF FUNCTION: Lymphedema Comment: Pt to dept with short stretch wraps on both legs. Pitting Edema Comments:: mild pitting R calf Fibrosis Comments:: present at B malleolar region Dryness/Flaking of Skin Comments:: Significant dryness and flaking both legs and feet. Lymphorrhea Comments:: No seeping noted today, but cotton layer of bandaging had dried fluid in 3 locations L lower leg. No open areas observed. Lower Extremity Circumferential Measurements R 1st toe (proximal phalanx): 9 R Metatarsal Phalangeal (MTP): 22 R Arch: 24.5 R 5 cm from floor: 28 cm R 10 cm from floor: 24.5 cm R 15 cm from floor: 29 cm R 20 cm from floor: 34.5 cm R 25 cm from floor: 40.5 cm R 30 cm from floor: 43 cm R 35 cm from floor: 44.5 cm R 40 cm from floor: 47.5 cm R 45 cm from floor: 48 cm (knee) R 50 cm from floor: 51.5 cm R 55 cm from floor: 53.5 cm L 1st toe (proximal phalanx): 8.5 L Metatarsal Phalangeal (MTP): 24.5 L Arch: 25 L 5 cm from floor: 29.5 cm L 10 cm from floor: 30 cm L 15 cm from floor: 48.5 cm L 20 cm from floor: 54.5 cm L 25 cm from floor: 55.5 cm L 30 cm from floor: 58 cm L 35 cm from floor: 57 cm L 40 cm from floor: 56 cm (knee) L 45 cm from floor: 60 cm L 50 cm from floor: 62 cm L 55 cm from floor: 60.5 cm Affected Leg: Bilateral, Left Leg Larger Calculate Volume : Yes R Lower Extremity Volume: 6813 L Lower Extremity Volume: 76805 Difference in Volume: 4609 Difference in % : 67.65 Gait Gait Observation: Independent transfers supine to sit, sit to supine with min assist for elevating LEs, independent with gait and sit <>stand using quad cane. TREATMENT: Manual Therapy: 1: Assisted pt in removal of previous short-stretch wraps. (This time was not included as skilled care.) 2: MLD B LE sequence, deferred short neck series d/t pt age precaution. 3: Continued pt education regarding importance of skin hygiene and infection prevention, including use of more effective and self-manageble compression. Pt states she fears er cats will scratch up any velcro wrap she would use. Skilled Intervention: Manual skills to improve joint mobility, ROM, and decrease pain. Utilized anatomy knowledge of the therapist, and assessment of patient's response to intervention. Manual techniques were performed with clinical decision-making regarding amount of stretch, intensity of pressureand assessment of responses. Manual techniques to facilitate lymphatic dynamics and improve condition of tissue. Billing KX Modifier : Therapist attests that services rendered are medically necessary. Manual TherapyTreatment Minutes: 67 Skilled Treatment Time Minutes (timed and untimed codes): 67 Total Session Time (minutes): 75 Session Start Time : 1445 Session Stop Time : 1600 Grace Bonds PT [facility] [place] NoteHNO ID: [id number] Author: GRACE BONDS PT Service: ? Author Type: Physical Therapist Type: Progress Notes Filed: 07/17/2024 17:13 Note Text: Episode Visit Count: 119 Therapist That Will Accept/Oversee The Plan Of Care: Grace Bonds Start of Care Date: 03/13/21 Onset Date: 02/20/21 (past several weeks) Plan of Care Certification Date: 09/16/24 Next Certification Due Date: 10/27/24 Patient Identified by Name and Date of : Yes REHABILITATION AND SPORTS THERAPY PHYSICAL THERAPY PROGRESS REPORT PLAN OF CARE UPDATE: Assessment: Chema Koroma demonstrates difficulty with L lower leg soft tissue healing and walking in the community, and improvements in skin/soft tissue condition on R leg, no longer having drainage or pitting L leg. The patient has progressed toward goals. Patient continues to present with impairments in edema management and soft tissue healing/condition that interfere with walking in the community . Current prognosis is Good due to: positive past response to therapy, Prognosis may be limited due to, current objective clinical presentation multiple co- morbidities, chronic nature of impairments, limited support system . The patient will benefit from continued skilled therapy services to meet the updated goals for this plan of care as noted below. Goals for Episode of Care: created on 03/13/21 through 05/14/21 Goals updated on 07/17/2024. Patient / family knowledgeable re: all pertinent aspects of CDT (Met) Patient / family independent with donning / doffing compression garment and proper wearing schedule and care of garment (Not Met)-Pt does not have stockings or inelastic garment yet. Patient / family independent with home exercise program (Met)-able, though poor compliance Patient will decrease circumferential measurements by 0.5-13.0 cm in the following areas: B LE for decreased recurrence of infection, improved mobility, improved range of motion and allow appropriate fit in compressive garment. (Partially Met)-not assessed today Pt to demonstrate reduction of lymphorrhea to allow for wearing of custom compression garments. (Met) Pt will perform supine <> sit transfer independently. (Partially Met)-at times requires assist for LE onto plinth. Pt will ambulate with decreased effort. (Met) 10/06/22: Pt will demonstrate reduction in L LE fibrosis (intensity and area). (Met) Patient Goals: To stop the draining and get the left leg smaller again. (Met) 01/04/23, modified 02/14/24: Pt will obtain appropriate fitting compression garment (likely inelastic velcro) for R LE. (Not Met) 05/24/23: Pt will increase B LE strength to 4+ to 5/5 to improve ability to perform transfers and gait. (Not Met) Pt will demonstrate improved gait pattern to increase functional walking distance and improve safety/decreasedrisk of falls. (Met) Dx: Lower extremity edema Post-Acute Discharge Plan: From home. Lives alone with 3 cats. Reports Mostly Independent. States has a private caregiver Patrizia. Patient states she was staying with Patrizia for 2 weeks prior to admission due to concrete work being done near her home. Patient states she wants to return home at discharge. Ambulates with Quad Cane. Has Walker and Wheelchair. Shower Chair and Shower Grab Bars at home. Time Frame for Goals and Treatment : 09/16/24 Planned Interventions, Frequency, and Duration: 1x/week, 8 weeks Total Number of Visits Planned: 8 Patient to be seen for Therapeutic exercise (75784), Manual therapy (50976), Self-correction management (84250), Patient/Family/Caregiver Education PLAN FOR NEXT VISIT: LE volume measurements. Continue MLD and short-stretch bandaging. Facilitate pt obtaining inelastic wraps to improve self-management and skin condition (able to remove to bathe, etc.). SUBJECTIVE: Pt states she forgot to bring her other bandaging supplies with her today. Functional Limitations: walking in the community Pain: Pain Pain Level: 0 Post Treatment Pain Post Treatment Pain Level: 0 PROMIS Scales 04/17/2024 Higher is Better Phys Func - Score 38 (moderate dysfunction) Phys Func - Percentile 12 Self-Eff Symptom - Score 41 (Average) Self-Eff Symptom - Percentile 18 T-scores: mean of general population = 50. 5 points is clinically meaningfully difference Percentiles provide an indication of how the patient's score ranks in relation to the general population. Higher percentile rankings indicate better function/quality of life. 50th percentile is the average of the general population and indicates half of respondents had a worse score. OBJECTIVE MEASURES WITH LEVEL OF FUNCTION: Lymphedema Comment: Pt to dept with short stretch wraps on both legs. Pitting Edema Comments:: no pitting Fibrosis Comments:: present at L malleolar region Dryness/Flaking of Skin Comments:: Pt's caregiver, Patrizia, washed pt's feet and lower legs during treatment today prior to reapp (more content not included)... [facility]11-22-[facility] History of Present illness Narrative* David Grace, PT - 07/17/2024 4:48 PM EST Images from the original note were not included. Episode Visit Count: 119 Therapist That Will Accept/Oversee The Plan Of Care: Grace Bonds Start of Care Date: 03/13/21 Onset Date: 02/20/21 (past several weeks) Plan of Care Certification Date: 09/16/24 Next Certification Due Date: 06/21/24 Patient Identified by Name and Date of : Yes REHABILITATION AND SPORTS THERAPY PHYSICAL THERAPY PROGRESS REPORT PLAN OF CARE UPDATE: Assessment: Chemaanupama Koroma demonstrates difficulty with L lower leg soft tissue healing and walking in the community, and improvements in skin/soft tissue condition on R leg, no longer having drainage or pitting L leg. The patient has progressed toward goals. Patient continues to present with impairments inedema management and soft tissue healing/condition that interfere with walking in the community . Current prognosis is Good due to: positive past response to therapy, Prognosis may be limited due to,current objective clinical presentation multiple co- morbidities, chronic nature of impairments, limited support system . The patient will benefit from continued skilled therapy services to meet the updated goals for this plan of care as noted below. Goals for Episode of Care: created on 03/13/21 through 05/14/21 Goals updated on 07/17/2024. Patient / family knowledgeable re: all pertinent aspects of CDT (Met) Patient / family independent with donning / doffing compression garment and proper wearing schedule and care of garment (Not Met)-Pt does not have stockings or inelastic garment yet. Patient / family independent with home exercise program (Met)-able, though poor compliance Patient will decrease circumferential measurements by 0.5-13.0 cm in the following areas: B LE for decreased recurrence of infection, improved mobility, improved range of motion and allow appropriate fit in compressive garment. (Partially Met)-not assessed today Pt to demonstrate reduction of lymphorrhea to allow for wearing of custom compression garments. (Met) Pt will perform supine <> sit transfer independently. (Partially Met)-at times requires assist for LE onto plinth. Pt will ambulate with decreased effort. (Met) 10/06/22: Pt will demonstrate reduction in L LE fibrosis (intensity and area). (Met) Patient Goals: To stop the draining and get the left leg smaller again. (Met) 01/04/23, modified 02/14/24: Pt will obtain appropriate fitting compression garment (likely inelasticvelcro) for R LE. (Not Met) 05/24/23: Pt will increase B LE strength to 4+ to 5/5 to improve ability to perform transfers and gait. (Not Met) Pt will demonstrate improved gait pattern to increase functional walking distance and improve safety/decreasedrisk of falls. (Met) Dx: Lower extremity edema Post-Acute Discharge Plan: From home. Lives alone with 3 cats. Reports Mostly Independent. States has a private caregiver Patrizia. Patient states she was staying with Patrizia for 2 weeks prior to admission due to concrete work being done near her home. Patient states she wants to return home at discharge. Ambulates with Quad Cane. Has Walker and Wheelchair. Shower Chair and Shower Grab Bars at home. Time Frame for Goals and Treatment : 09/16/24 Planned Interventions, Frequency, and Duration: 1x/week, 8 weeks Total Number of Visits Planned: 8 Patient to be seen for Therapeutic exercise (97761), Manual therapy (99634), Self-correction management (70944), Patient/Family/Caregiver Education PLAN FOR NEXT VISIT: LE volume measurements. Continue MLD and short-stretch bandaging. Facilitate pt obtaining inelastic wraps to improve self-management and skin condition (able to remove to bathe, etc.). SUBJECTIVE: Pt states she forgot to bring her other bandaging supplies with her today. Functional Limitations: walking in the community Pain: Pain Pain Level: 0 Post Treatment Pain Post Treatment Pain Level: 0 PROMIS Scales 04/17/2024 Higher is Better Phys Func - Score 38 (moderate dysfunction) Phys Func - Percentile 12 Self-Eff Symptom - Score 41 (Average) Self-Eff Symptom - Percentile 18 T-scores: mean of general population = 50. 5 points is clinically meaningfully difference Percentiles provide an indication of how the patient's score ranks in relation to the general population. Higher percentile rankings indicate better function/quality of life. 50th percentile is the average of the general population and indicates half of respondents had a worse score. OBJECTIVE MEASURES WITH LEVEL OF FUNCTION: Lymphedema Comment: Pt to dept with short stretch wraps on both legs. Pitting Edema Comments:: no pitting Fibrosis Comments:: present at L malleolar region Dryness/Flaking of Skin Comments:: Pt's caregiver, Patrizia, washed pt's feet and lower legs during treatment today prior to reapplication of bandages. Lymphorrhea Comments:: Minimal dried drainage on stockinette layer L lateral lower leg. Moist at healing area, but no draining/ lymphorrhea observed. Gait Gait Observation: Independent transfers supine to sit, sit to supine with min assist for elevating LEs, independent with gait and sit <>stand using quad cane. TREATMENT: Manual Therapy: 1: MLD B LE sequence, deferred short neck series d/t pt age precaution. 2: Applied short-stretch bandages to B lower legs, ensuring appropriate compression gradient and ptcomfort. 3: Issued handouts (again) to pt and her caregiver, Patrizia of resources and options of obtaining inelastic wraps. Again, emphasized the importance of being able to self-manage (don/doffing) and to remove for improved skin care to prevent infection and promote full healing. 4: Offerred a couple options for pt to schedule prior to 08/14(next scheduled appt), and pt states she has to wait to see if she gets matt cortisone injections for her knee and also is not sure of when she can get a construction driver to bring her. Pt was placed on cancellation list and will be notified if other openings become available. Skilled Intervention: Manual skills to improve joint mobility, ROM, and decrease pain. Utilized anatomy knowledge of the therapist, and assessment of patient's response to intervention. Manual techniques were performed with clinical decision-making regarding amount of stretch, intensity of pressureand assessment of responses. Manual techniques to facilitate lymphatic dynamics and improve condition of tissue. Billing KX Modifier : Therapist attests that services rendered are medically necessary. Manual TherapyTreatment Minutes: 70 Skilled Treatment Time Minutes (timed and untimed codes): 70 Total Session Time (minutes): 70 Session Start Time : 1500 Session Stop Time : 1610 Grace Bonds PT documented [facility] [place] Evaluation note* Diagnosis Onset Date Resolution Status Admit Date Osteoarthritis of right knee acute July 14, 2024 1:11pm Osteoarthritis of right knee acute August 11, 2024 3:52pm Osteoarthritis of right knee acute August 21, 2024 2:12pm Osteoarthritis of right knee acute August 27, 2024 2:58pm [facility] Work Phone: 1(245) 378-215911-15-2024 NoteHNO ID: [id number] Author: GRACE BONDS, PT Service: ? Author Type: Physical Therapist Type: Progress Notes Filed: 07/10/2024 16:38 Note Text: Episode Visit Count: 118 Therapist That Will Accept/Oversee The Plan Of Care: Grace Bonds Start of Care Date: 03/13/21 Onset Date: 02/20/21 (past several weeks) Plan of Care Certification Date: 04/17/24 Next Certification Due Date: 06/21/24 Patient Identified by Name and Date of : Yes REHABILITATION AND SPORTS THERAPY PHYSICAL THERAPY TREATMENT NOTE ASSESSMENT: Chema Koroma tolerated the session with no issues. She demonstrated continued impairments, but improvements in soft tissue condition. The patient will continue to benefit from ongoing skilled physical therapy to progress toward set goals. PLAN FOR NEXT VISIT: Continue MLD and short-stretch wrapping. Facilitate pt obtaining inealstic compression garment for home use as skin heals to allow for improved self-management. SUBJECTIVE: Pt reporting her L lower leg feels tight and heavy today. Pain: Pain Pain Level: 0 Post Treatment Pain Post Treatment Pain Level: 0 OBJECTIVE MEASURES WITH LEVEL OF FUNCTION: Lymphedema Comment: Pt to dept with short stretch wraps on both legs and other supplies in tow. Pitting Edema Comments:: No pitting palpated today. Dryness/Flaking of Skin Comments:: Significant dryness/flaking. Raw, healing area L lower leg (anteriorly) with granulation tissue observed. (Pt's caregiver, Patrizia, washed pt's feet and lower legs during treatment today prior to reapplication of bandages.) Lymphorrhea Comments:: Minimal dried drainage on stockinette layer. Moist at raw, healing area, but no draining lymphorrhea observed. TREATMENT: Manual Therapy: 1: MLD B LE sequence, deferred short neck series d/t pt age precaution. 2: Applied short-stretch bandages to B lower legs, ensuring appropriate compression gradient and pt comfort. 3: Instructed pt and her caregiver, Patrizia, in demonstration of don/doffing [employer] lower leg inelastic compression garment. Reviewed Skilled Intervention: Manual skills to improve joint mobility, ROM, and decrease pain. Utilized anatomy knowledge of the therapist, and assessment of patient's response to intervention. Manual techniques were performed with clinical decision-making regarding amount of stretch, intensity of pressure and assessment of responses. Manual techniques to facilitate lymphatic dynamics and improve condition of tissue. Billing KX Modifier : Therapist attests that services rendered are medically necessary. Manual TherapyTreatment Minutes: 67 Skilled Treatment Time Minutes (timed and untimed codes): 67 Total Session Time (minutes): 67 Session Start Time : 1455 Session Stop Time : 1602 Grace Bonds [facility]11-15-2024 History of Present illness Narrative* Grace Bonds, PT - 07/10/2024 4:25 PM EST Episode Visit Count: 118 Therapist That Will Accept/Oversee The Plan Of Care: Grace Bonds Start of Care Date: 03/13/21 Onset Date: 02/20/21 (past several weeks) Plan of Care Certification Date: 04/17/24 Next Certification Due Date: 06/21/24 Patient Identified by Name and Date of : Yes REHABILITATION AND SPORTS THERAPY PHYSICAL THERAPY TREATMENT NOTE ASSESSMENT: Chema Koroma tolerated the session with no issues. She demonstrated continued impairments, but improvements in soft tissue condition. The patient will continue to benefit from ongoing skilled physical therapy to progress toward set goals. PLAN FOR NEXT VISIT: Continue MLD and short-stretch wrapping. Facilitate pt obtaining inealstic compression garment for home use as skin heals to allow for improved self-management. SUBJECTIVE: Pt reporting her L lower leg feels tight and heavy today. Pain: Pain Pain Level: 0 Post Treatment Pain Post Treatment Pain Level: 0 OBJECTIVE MEASURES WITH LEVEL OF FUNCTION: Lymphedema Comment: Pt to dept with short stretch wraps on both legs and other supplies in tow. Pitting Edema Comments:: No pitting palpated today. Dryness/Flaking of Skin Comments:: Significant dryness/flaking. Raw, healing area L lower leg (anteriorly) with granulation tissue observed. (Pt's caregiver, Patrizia, washed pt's feet and lower legs during treatment today prior to reapplication of bandages.) Lymphorrhea Comments:: Minimal dried drainage on stockinette layer. Moist at raw, healing area, butno draining lymphorrhea observed. TREATMENT: Manual Therapy: 1: MLD B LE sequence, deferred short neck series d/t pt age precaution. 2: Applied short-stretch bandages to B lower legs, ensuring appropriate compression gradient and ptcomfort. 3: Instructed pt and her caregiver, Patrizia, in demonstration of don/doffing [employer] lower leg inelastic compression garment. Reviewed Skilled Intervention: Manual skills to improve joint mobility, ROM, and decrease pain. Utilized anatomy knowledge of the therapist, and assessment of patient's response to intervention. Manual techniques were performed with clinical decision-making regarding amount of stretch, intensity of pressureand assessment of responses. Manual techniques to facilitate lymphatic dynamics and improve condition of tissue. Billing KX Modifier : Therapist attests that services rendered are medically necessary. Manual TherapyTreatment Minutes: 67 Skilled Treatment Time Minutes (timed and untimed codes): 67 Total Session Time (minutes): 67 Session Start Time : 1455 Session Stop Time : 1602 Grace Bonds PT documented in this encounter[facility] [place] NoteHNO ID: [id number] Author: GRACE BONDS PT Service: ? Author Type: Physical Therapist Type: Progress Notes Filed: 06/24/2024 17:39 Note Text: Episode Visit Count: 117 Therapist That Will Accept/Oversee The Plan Of Care: Grace Bonds Start of Care Date: 03/13/21 Onset Date: 02/20/21 (past several weeks) Plan of Care Certification Date: 04/17/24 Next Certification Due Date: 06/21/24 Patient Identified by Name and Date of : Yes REHABILITATION AND SPORTS THERAPY PHYSICAL THERAPY TREATMENT NOTE ASSESSMENT: Chema Koroma tolerated the session with no issues. She demonstrated improvements in visibly and palpably reduced volume R lower leg, reduced pitting L lower leg. The patient will continue to benefit from ongoing skilled physical therapy to progress toward set goals. PLAN FOR NEXT VISIT: Continue MLD, short-stretch wrapping. Have pt try on inelastic velcro sample independently. SUBJECTIVE: Pt reports she did take her water pill yesterday and was up all night going to the bathroom'. She reports not taking it today yet, but is going to wait until she gets home and plans to get back on her prescribed schedule. She notes her L lower leg is itchy close to the ankle area. Pain: Pain Pain Level: 0 Post Treatment Pain Post Treatment Pain Level: 0 OBJECTIVE MEASURES WITH LEVEL OF FUNCTION: Lymphedema Comment: Pt to dept with short stretch wraps on both legs and other supplies in tow. Pitting Edema Comments:: R: 1+pitting dorsum of foot and lateral ankle; L: 1+ dorsum of foot and ankle. Dryness/Flaking of Skin Comments:: Significant dryness/flaking. Raw, healing area L lower leg (anteriorly) with granulation tissue observed. Lymphorrhea Comments:: Minimal dried drainage on stockinette layer. Moist at raw, healing area, but no draining lymphorrhea observed. Gait Gait Observation: Independent transfers supine to sit, sit to supine with min assist for elevating LEs, independent with gait and sit <>stand using quad cane. TREATMENT: Manual Therapy: 1: MLD B LE sequence, deferred short neck series d/t pt age precaution. 2: Applied short-stretch bandages to B lower legs, ensuring appropriate compression gradient and pt comfort. 3: Showed pt sample and demonstrated don/doffing of Circaid Juxtafit lower leg wrap. Answered pt questions. Skilled Intervention: Manual skills to improve joint mobility, ROM, and decrease pain. Utilized anatomy knowledge of the therapist, and assessment of patient's response to intervention. Manual techniques were performed with clinical decision-making regarding amount of stretch, intensity of pressure and assessment of responses. Manual techniques to facilitate lymphatic dynamics and improve condition of tissue. Billing KX Modifier : Therapist attests that services rendered are medically necessary. Manual TherapyTreatment Minutes: 60 Skilled Treatment Time Minutes (timed and untimed codes): 60 Total Session Time (minutes): 73 Session Start Time : 1607 Session Stop Time : 1720 Grace Bonds [facility]10-30-2024 History of Present illness Narrative* Grace Bonds, PT - 06/24/2024 5:25 PM EDT Episode Visit Count: 117 Therapist That Will Accept/Oversee The Plan Of Care: Grace Bonds Start of Care Date: 03/13/21 Onset Date: 02/20/21 (past several weeks) Plan of Care Certification Date: 04/17/24 Next Certification Due Date: 06/21/24 Patient Identified by Name and Date of : Yes REHABILITATION AND SPORTS THERAPY PHYSICAL THERAPY TREATMENT NOTE ASSESSMENT: Chema Koroma tolerated the session with no issues. She demonstrated improvements in visibly and palpably reduced volume R lower leg, reduced pitting L lower leg. The patient will continue to benefit from ongoing skilled physical therapy to progress toward set goals. PLAN FOR NEXT VISIT: Continue MLD, short-stretch wrapping. Have pt try on inelastic velcro sample independently. SUBJECTIVE: Pt reports she did take her water pill yesterday and was up all night going to the bathroom'. She reports not taking it today yet, but is going to wait until she gets home and plans to get back on her prescribed schedule. She notes her L lower leg is itchy close to the ankle area. Pain: Pain Pain Level: 0 Post Treatment Pain Post Treatment Pain Level: 0 OBJECTIVE MEASURES WITH LEVEL OF FUNCTION: Lymphedema Comment: Pt to dept with short stretch wraps on both legs and other supplies in tow. Pitting Edema Comments:: R: 1+pitting dorsum of foot and lateral ankle; L: 1+ dorsum of foot and ankle. Dryness/Flaking of Skin Comments:: Significant dryness/flaking. Raw, healing area L lower leg (anteriorly) with granulation tissue observed. Lymphorrhea Comments:: Minimal dried drainage on stockinette layer. Moist at raw, healing area, butno draining lymphorrhea observed. Gait Gait Observation: Independent transfers supine to sit, sit to supine with min assist for elevating LEs, independent with gait and sit <>stand using quad cane. TREATMENT: Manual Therapy: 1: MLD B LE sequence, deferred short neck series d/t pt age precaution. 2: Applied short-stretch bandages to B lower legs, ensuring appropriate compression gradient and ptcomfort. 3: Showed pt sample and demonstrated don/doffing of Circaid Juxtafit lower leg wrap. Answered pt questions. Skilled Intervention: Manual skills to improve joint mobility, ROM, and decrease pain. Utilized anatomy knowledge of the therapist, and assessment of patient's response to intervention. Manual techniques were performed with clinical decision-making regarding amount of stretch, intensity of pressureand assessment of responses. Manual techniques to facilitate lymphatic dynamics and improve condition of tissue. Billing KX Modifier : Therapist attests that services rendered are medically necessary. Manual TherapyTreatment Minutes: 60 Skilled Treatment Time Minutes (timed and untimed codes): 60 Total Session Time (minutes): 73 Session Start Time : 1607 Session Stop Time : 1720 Grace Bonds PT documented in this encounterSelect [facility] [place] NoteHNO ID: [id number] Author: GRACE BONDS PT Service: ? Author Type: Physical Therapist Type: Progress Notes Filed: 06/19/2024 17:00 Note Text: Episode Visit Count: 116 Therapist That Will Accept/Oversee The Plan Of Care: Grace Bonds Start of Care Date: 03/13/21 Onset Date: 02/20/21 (past several weeks) Plan of Care Certification Date: 04/17/24 Next Certification Due Date: 06/21/24 Patient Identified by Name and Date of : Yes REHABILITATION AND SPORTS THERAPY PHYSICAL THERAPY TREATMENT NOTE ASSESSMENT: Chema Koroma tolerated the session with no issues. She demonstrated difficulty with increased edema and lymphorrhea B LEs today. Strongly encouraged pt to talk with her medical doctor or bulb grader in regards to any changing (stopping) of taking her medication. She was educated in the relation of her vascular system to the lymphedema and importance of following medical recommendations. The patient will continue to benefit from ongoing skilled physical therapy to progress toward set goals. PLAN FOR NEXT VISIT: Continue MLD, short-stretch wrapping. Have pt try on inelastic velcro sample for lower leg. SUBJECTIVE: Pt states she has not taken her water pill for the last 3 weeks because she can't get to the bathroom fast enough and is incontinent. She reporting her feet and ankles feel heavy and hurt. She states she is having trouble lifting her legs to walk. Pain: Pain Pain Level: 10 Pain Location: Ankle - Right, Ankle - Left, Foot - Right, Foot - Left Description: (Pt with no verbal or facial grimacing or gestures that would suggest significant pain level. She is very conversational throughout treatment.) Post Treatment Pain Post Treatment Pain Level: (not rated) OBJECTIVE MEASURES WITH LEVEL OF FUNCTION: Lymphedema Comment: Pt to dept with short stretch wraps on both legs and other supplies in tow. Pitting Edema Comments:: R: 2+pitting dorsum of foot and lateral ankle, 1+ lower leg, knee and thigh soft; L: 1+ dorsum of foot, ankle, lower leg, and soft knee and thigh. Dryness/Flaking of Skin Comments:: Moderate dryness/flaking. Open lesions on L LE healing with granulation tissue observed.. Lymphorrhea Comments:: R: medial knee and just above; L anterolateral mid lower leg (also observed dried fluid on first layer of stockinette and Artiflex when bandages were removed. Lower Extremity Circumferential Measurements R 1st toe (proximal phalanx): 9.5 R Metatarsal Phalangeal (MTP): 24 R Arch: 26 R 5 cm from floor: 28 cm R 10 cm from floor: 25 cm R 15 cm from floor: 33 cm R 20 cm from floor: 38 cm R 25 cm from floor: 40.5 cm R 30 cm from floor: 42 cm R 35 cm from floor: 43.5 cm R 40 cm from floor: 45 cm R 45 cm from floor: 50 cm R 50 cm from floor: 51.5 cm R 55 cm from floor: 55 cm L 1st toe (proximal phalanx): 9 L Metatarsal Phalangeal (MTP): 24.5 L Arch: 25.5 L 5 cm from floor: 30 cm L 10 cm from floor: 29 cm L 15 cm from floor: 52 cm L 20 cm from floor: 55 cm L 25 cm from floor: 54.5 cm L 30 cm from floor: 52.5 cm L 35 cm from floor: 59 cm L 40 cm from floor: 59.5 cm L 45 cm from floor: 57 cm L 50 cm from floor: 56.5 cm L 55 cm from floor: 56.5 cm Affected Leg: Bilateral, Left Leg Larger Calculate Volume : Yes R Lower Extremity Volume: 6971 L Lower Extremity Volume: 18126 Difference in Volume: 4059 Difference in % : 58.23 Gait Gait Observation: Pt ambulates independently using quad cane for w/c <> plinth transfers. Independent transfers sit <> stand and supine to sit, but required assistance to elevate legs onto plinth during sit to supine. No change in function (gait/transfers) from previous visit, though only observed in the treatment room. TREATMENT: Manual Therapy: 1: MLD B LE sequence, deferred short neck series d/t pt age precaution. 2: Applied short-stretch bandages to B lower legs, ensuring appropriate compression gradient and pt comfort. Skilled Intervention: Manual skills to improve joint mobility, ROM, and decrease pain. Utilized anatomy knowledge of the therapist, and assessment of patient's response to intervention. Manual techniques were performed with clinical decision-making regarding amount of stretch, intensity of pressure and assessment of responses. Manual techniques to facilitate lymphatic dynamics and improve condition of tissue.Strongly encouraged pt to talk with her medical doctor or bulb grader in regards to any changing (stopping) of any medications. She was educated in the relation of the vascular system to the lymphatic system and her current symptoms. Billing KX Modifier : Therapist attests that services rendered are medically necessary. Manual TherapyTreatment Minutes: 53 Skilled Treatment Time Minutes (timed and untimed codes): 53 Total Session Time (minutes): 62 Session Start Time : 1458 Session Stop Time : 1600 Grace Bonds [facility]10-25-2024 History of Present illness Narrative* Grace Bonds, PT - 06/19/2024 2:55 PM EDT Episode Visit Count: 116 Therapist That Will Accept/Oversee The Plan Of Care: Grace Bonds Start of Care Date: 03/13/21 Onset Date: 02/20/21 (past several weeks) Plan of Care Certification Date: 04/17/24 Next Certification Due Date: 06/21/24 Patient Identified by Name and Date of : Yes REHABILITATION AND SPORTS THERAPY PHYSICAL THERAPY TREATMENT NOTE ASSESSMENT: Chema Koroma tolerated the session with no issues. She demonstrated difficulty with increased edema and lymphorrhea B LEs today. Strongly encouraged pt to talk with her medical doctor or bulb grader in regards to any changing (stopping) of taking her medication. She was educated in the relation of her vascular system to the lymphedema and importance of following medical recommendations. The patient will continue to benefit from ongoing skilled physical therapy to progress toward set goals. PLAN FOR NEXT VISIT: Continue MLD, short-stretch wrapping. Have pt try on inelastic velcro sample for lower leg. SUBJECTIVE: Pt states she has not taken her water pill for the last 3 weeks because she can't getto the bathroom fast enough and is incontinent. She reporting her feet and ankles feel heavy and hurt. She states she is having trouble lifting her legs to walk. Pain: Pain Pain Level: 10 Pain Location: Ankle - Right, Ankle - Left, Foot - Right, Foot - Left Description: (Pt with no verbal or facial grimacing or gestures that would suggest significant painlevel. She is very conversational throughout treatment.) Post Treatment Pain Post Treatment Pain Level: (not rated) OBJECTIVE MEASURES WITH LEVEL OF FUNCTION: Lymphedema Comment: Pt to dept with short stretch wraps on both legs and other supplies in tow. Pitting Edema Comments:: R: 2+pitting dorsum of foot and lateral ankle, 1+ lower leg, knee and thigh soft; L: 1+ dorsum of foot, ankle, lower leg, and soft knee and thigh. Dryness/Flaking of Skin Comments:: Moderate dryness/flaking. Open lesions on L LE healing with granulation tissue observed.. Lymphorrhea Comments:: R: medial knee and just above; L anterolateral mid lower leg (also observed dried fluid on first layer of stockinette and Artiflex when bandages were removed. Lower Extremity Circumferential Measurements R 1st toe (proximal phalanx): 9.5 R Metatarsal Phalangeal (MTP): 24 R Arch: 26 R 5 cm from floor: 28 cm R 10 cm from floor: 25 cm R 15 cm from floor: 33 cm R 20 cm from floor: 38 cm R 25 cm from floor: 40.5 cm R 30 cm from floor: 42 cm R 35 cm from floor: 43.5 cm R 40 cm from floor: 45 cm R 45 cm from floor: 50 cm R 50 cm from floor: 51.5 cm R 55 cm from floor: 55 cm L 1st toe (proximal phalanx): 9 L Metatarsal Phalangeal (MTP): 24.5 L Arch: 25.5 L 5 cm from floor: 30 cm L 10 cm from floor: 29 cm L 15 cm from floor: 52 cm L 20 cm from floor: 55 cm L 25 cm from floor: 54.5 cm L 30 cm from floor: 52.5 cm L 35 cm from floor: 59 cm L 40 cm from floor: 59.5 cm L 45 cm from floor: 57 cm L 50 cm from floor: 56.5 cm L 55 cm from floor: 56.5 cm Affected Leg: Bilateral, Left Leg Larger Calculate Volume : Yes R Lower Extremity Volume: 6971 L Lower Extremity Volume: 36241 Difference in Volume: 4059 Difference in % : 58.23 Gait Gait Observation: Pt ambulates independently using quad cane for w/c <> plinth transfers. Independent transfers sit <> stand and supine to sit, but required assistance to elevate legs onto plinth during sit to supine. No change in function (gait/transfers) from previous visit, though only observed in the treatment room. TREATMENT: Manual Therapy: 1: MLD B LE sequence, deferred short neck series d/t pt age precaution. 2: Applied short-stretch bandages to B lower legs, ensuring appropriate compression gradient and ptcomfort. Skilled Intervention: Manual skills to improve joint mobility, ROM, and decrease pain. Utilized anatomy knowledge of the therapist, and assessment of patient's response to intervention. Manual techniques were performed with clinical decision-making regarding amount of stretch, intensity of pressureand assessment of responses. Manual techniques to facilitate lymphatic dynamics and improve condition of tissue.Strongly encouraged pt to talk with her medical doctor or bulb grader in regards to any changing (stopping) of any medications. She was educated in the relation of the vascular system to the lymphatic system and hercurrent symptoms. Billing KX Modifier : Therapist attests that services rendered are medically necessary. Manual TherapyTreatment Minutes: 53 Skilled Treatment Time Minutes (timed and untimed codes): 53 Total Session Time (minutes): 62 Session Start Time : 1458 Session Stop Time : 1600 Grace Bonds PT documented in this encounterSelect [facility] [place] NoteHNO ID: [id number] Author: GRACE BONDS PT Service: ? Author Type: Physical Therapist Type: Progress Notes Filed: 06/19/2024 16:46 Note Text: Episode Visit Count: 115 Therapist That Will Accept/Oversee The Plan Of Care: Grace Bonds Start of Care Date: 03/13/21 Onset Date: 02/20/21 (past several weeks) Plan of Care Certification Date: 04/17/24 Next Certification Due Date: 06/21/24 Patient Identified by Name and Date of : Yes REHABILITATION AND SPORTS THERAPY PHYSICAL THERAPY TREATMENT NOTE ASSESSMENT: Chema Koroma tolerated the session with no issues. She demonstrated improvements in softening of underlying tissue (reduced fibrosis). The patient will continue to benefit from ongoing skilled physical therapy to progress toward set goals. PLAN FOR NEXT VISIT: Aubrey LAZO MLD, measure volume, continue facilitation of pt obtaining garment. SUBJECTIVE: Pt had called to notify of her construction driver arriving late to pick her up. She wasable to get in the car by herself. Pain: Pain Pain Level: 0 Post Treatment Pain Post Treatment Pain Level: 0 OBJECTIVE MEASURES WITH LEVEL OF FUNCTION: Lymphedema Comment: Pt to dept with compression wraps on both legs and short-stretch supplies in tow. Fibrosis Comments:: R LE with greatly reduced fibrosis from last session. L lower leg with firmness around ankle, less in lower leg. Dryness/Flaking of Skin Comments:: Moderate dryness/flaking. Open lesions on L LE healing with granulation tissue observed. R LE lesions closed. No signs/sx of infection noted. Lymphorrhea Comments:: Moist at L lateral lower leg wtih pressure of leg resting on plinth. Very small amount of dried lymphorrhea noted on stockinette L lateral lower leg. (Pt was late to appt so did not have time for measurements.) TREATMENT: Manual Therapy: 1: MLD B LE sequence, deferred short neck series d/t pt age precaution. 2: Applied short-stretch bandages to B lower legs, ensuring appropriate compression gradient and pt comfort. Skilled Intervention: Manual skills to improve joint mobility, ROM, and decrease pain. Utilized anatomy knowledge of the therapist, and assessment of patient's response to intervention. Manual techniques were performed with clinical decision-making regarding amount of stretch, intensity of pressure and assessment of responses. Manual techniques to facilitate lymphatic dynamics and improve condition of tissue. Billing KX Modifier : Therapist attests that services rendered are medically necessary. Manual TherapyTreatment Minutes: 53 Skilled Treatment Time Minutes (timed and untimed codes): 53 Total Session Time (minutes): 62 Session Start Time : 1540 Session Stop Time : 164 Grace Bonds, [facility]10-04-2024 History of Present illness Narrative* Grace Bonds, PT - 05/29/2024 5:00 PM EDT Episode Visit Count: 115 Therapist That Will Accept/Oversee The Plan Of Care: Moist at L lateral lower leg wtih pressure of leg resting on plinth. Dried lymphorrhea noted on stockinette L lateral lower leg. Start of Care Date: 03/13/21 Onset Date: 02/20/21 (past several weeks) Plan of Care Certification Date: 04/17/24 Next Certification Due Date: 06/21/24 Patient Identified by Name and Date of : Yes REHABILITATION AND SPORTS THERAPY PHYSICAL THERAPY TREATMENT NOTE ASSESSMENT: Chema Koroma tolerated the session with no issues. She demonstrated improvements in softening of underlying tissue (reduced fibrosis). The patient will continue to benefit from ongoing skilled physical therapy to progress toward set goals. PLAN FOR NEXT VISIT: B LE MLD, measure volume, continue facilitation of pt obtaining garment. SUBJECTIVE: Pt had called to notify of her construction driver arriving late to pick her up. She wasable to get in the car by herself. Pain: Pain Pain Level: 0 Post Treatment Pain Post Treatment Pain Level: 0 OBJECTIVE MEASURES WITH LEVEL OF FUNCTION: Lymphedema Comment: Pt to dept with compression wraps on both legs and short-stretch supplies in tow. Fibrosis Comments:: R Le with greatly reduced fibrosis from last session. L lower leg with firmnessaround ankle, less in lower leg. Dryness/Flaking of Skin Comments:: Moderate dryness/flaking. Open lesions on L LE healing with granulation tissue observed. R LE lesions closed. No signs/sx of infection noted. Lymphorrhea Comments:: Moist at L lateral lower leg wtih pressure of leg resting on plinth. Very small amount of dried lymphorrhea noted on stockinette L lateral lower leg. (Pt was late to appt so did not have time for measurements.) TREATMENT: Manual Therapy: 1: MLD B LE sequence, deferred short neck series d/t pt age precaution. 2: Applied short-stretch bandages to B lower legs, ensuring appropriate compression gradient and ptcomfort. Skilled Intervention: Manual skills to improve joint mobility, ROM, and decrease pain. Utilized anatomy knowledge of the therapist, and assessment of patient's response to intervention. Manual techniques were performed with clinical decision-making regarding amount of stretch, intensity of pressureand assessment of responses. Manual techniques to facilitate lymphatic dynamics and improve condition of tissue. Billing KX Modifier : Therapist attests that services rendered are medically necessary. Manual TherapyTreatment Minutes: 53 Skilled Treatment Time Minutes (timed and untimed codes): 53 Total Session Time (minutes): 62 Session Start Time : 1540 Session Stop Time : 1641 Grace Bonds PT documented in this encounterSelect [facility] [place]24 NoteHNO ID: [id number] Author: GRACE BONDS PT Service: ? Author Type: Physical Therapist Type: Progress Notes Filed: 06/19/2024 17:07 Note Text: Episode Visit Count: 114 Therapist That Will Accept/Oversee The Plan Of Care: Grace Bonds Start of Care Date: 03/13/21 Onset Date: 02/20/21 (past several weeks) Plan of Care Certification Date: 04/17/24 Next Certification Due Date: 06/21/24 Patient Identified by Name and Date of : Yes REHABILITATION AND SPORTS THERAPY PHYSICAL THERAPY PROGRESS REPORT PLAN OF CARE UPDATE: Assessment: Chema Koroma demonstrates difficulty with B LE edema, skin and tissue condition, and walking in the community. The patient has demonstrated slow improvements in skin and soft tissue. She had mad e some improvements in volume with consistent attendance to appointments, but has been less consistent d/t transportation. Patient continues to present with impairments in edema management and skin healing/soft tissue condition that interfere with walking in the community . Current prognosis is Good due to: current objective clinical presentation, good overall health status, positive past response to therapy, Prognosis may be limited due to chronic nature of impairments, coping skills, limited support system . The patient will benefit from continued skilled therapy services to meet the updated goals for this plan of care as noted below. Goals for Episode of Care: created on 03/13/21 through 05/14/21 Goals updated on 05/22/2024. Patient / family knowledgeable re: all pertinent aspects of CDT (Met) Patient / family independent with donning / doffing compression garment and proper wearing schedule and care of garment (Not Met)-Pt does not have stockings or inelastic garment yet. Patient / family independent with home exercise program (Met)-able, though poor compliance Patient will decrease circumferential measurements by 0.5-13.0 cm in the following areas: B LE for decreased recurrence of infection, improved mobility, improved range of motion and allow appropriate fit in compressive garment. (Partially Met)-not assessed today Pt to demonstrate reduction of lymphorrhea to allow for wearing of custom compression garments. (Met) Pt will perform supine <> sit transfer independently. (Partially Met)-at times requires assist for LE onto plinth. Pt will ambulate with decreased effort. (Met) 10/06/22: Pt will demonstrate reduction in L LE fibrosis (intensity and area). (Partially Met)-met previously, but not today Patient Goals: To stop the draining and get the left leg smaller again. (Met) 01/04/23, modified 02/14/24: Pt will obtain appropriate fitting compression garment (likely inelastic velcro) for R LE. (Not Met) 05/24/23: Pt will increase B LE strength to 4+ to 5/5 to improve ability to perform transfers and gait. (Not Met) Pt will demonstrate improved gait pattern to increase functional walking distance and improve safety/decreasedrisk of falls. (Met) Dx: Lower extremity edema Post-Acute Discharge Plan: From home. Lives alone with 3 cats. Reports Mostly Independent. States has a private caregiver Patrizia. Patient states she was staying with Patrizia for 2 weeks prior to admission due to concrete work being done near her home. Patient states she wants to return home at discharge. Ambulates with Quad Cane. Has Walker and Wheelchair. Shower Chair and Shower Grab Bars at home. Time Frame for Goals and Treatment : 07/22/24 Planned Interventions, Frequency, and Duration: 1x/week, 4 weeks Total Number of Visits Planned: 4 Patient to be seen for Therapeutic exercise (42642), Manual therapy (71871), Self-correction management (32300), Patient/Family/Caregiver Education PLAN FOR NEXT VISIT: Continue MLD and compression wrapping. measure leg volume next visit. Continue to facilitate pt obtaining self-managable compression prior to discharge end may. SUBJECTIVE: Pt reporting she is unsure if she will have transportation for remaining visits. She is waiting to hear back from a possible construction driver if available. Functional Limitations: walking in the community Pain: Pain Pain Level: 0 Post Treatment Pain Post Treatment Pain Level: 0 PROMIS Scales 04/17/2024 Higher is Better Phys Func - Score 38 (moderate dysfunction) Phys Func - Percentile 12 Self-Eff Symptom - Score 41 (Average) Self-Eff Symptom - Percentile 18 T-scores: mean of general population = 50. 5 points is clinically meaningfully difference Percentiles provide an indication of how the patient's score ranks in relation to the general population. Higher percentile rankings indicate better function/quality of life. 50th percentile is the average of the general population and indicates half of respondents had a worse score. OBJECTIVE MEASURES WITH LEVEL OF FUNCTION: Lymphedema Comment: Pt to dept with compression wraps on both legs and short-stretch supplies in t (more content not included)...[facility]09-27-2024 History of Present illness Narrative* Grace Bonds, PT - 05/22/2024 2:52 PM EDT Images from the original note were not included. Episode Visit Count: 114 Therapist That Will Accept/Oversee The Plan Of Care: Grace Bonds Start of Care Date: 03/13/21 Onset Date: 02/20/21 (past several weeks) Plan of Care Certification Date: 04/17/24 Next Certification Due Date: 05/16/24 Patient Identified by Name and Date of : Yes REHABILITATION AND SPORTS THERAPY PHYSICAL THERAPY PROGRESS REPORT PLAN OF CARE UPDATE: Assessment: Chema Koroma demonstrates difficulty with B LE edema, skin and tissue condition, and walking in the community. The patient has demonstrated slow improvements in skin and soft tissue. She had made some improvements in volume with consistent attendance to appointments, but has been less consistent d/t transportation. Patient continues to present with impairments in edema management and skin healing/soft tissue condition that interfere with walking in the community . Current prognosis is Good due to: current objective clinical presentation, good overall health status, positive past response to therapy, Prognosis may be limited due to chronic nature of impairments, coping skills, limited support system . The patient will benefit from continued skilled therapy services to meet the updated goals for this plan of care as noted below. Goals for Episode of Care: created on 03/13/21 through 05/14/21 Goals updated on 05/22/2024. Patient / family knowledgeable re: all pertinent aspects of CDT (Met) Patient / family independent with donning / doffing compression garment and proper wearing schedule and care of garment (Not Met)-Pt does not have stockings or inelastic garment yet. Patient / family independent with home exercise program (Met)-able, though poor compliance Patient will decrease circumferential measurements by 0.5-13.0 cm in the following areas: B LE for decreased recurrence of infection, improved mobility, improved range of motion and allow appropriate fit in compressive garment. (Partially Met)-not assessed today Pt to demonstrate reduction of lymphorrhea to allow for wearing of custom compression garments. (Met) Pt will perform supine <> sit transfer independently. (Partially Met)-at times requires assist for LE onto plinth. Pt will ambulate with decreased effort. (Met) 10/06/22: Pt will demonstrate reduction in L LE fibrosis (intensity and area). (Partially Met)-met previously, but not today Patient Goals: To stop the draining and get the left leg smaller again. (Met) 01/04/23, modified 02/14/24: Pt will obtain appropriate fitting compression garment (likely inelasticvelcro) for R LE. (Not Met) 05/24/23: Pt will increase B LE strength to 4+ to 5/5 to improve ability to perform transfers and gait. (Not Met) Pt will demonstrate improved gait pattern to increase functional walking distance and improve safety/decreasedrisk of falls. (Met) Dx: Lower extremity edema Post-Acute Discharge Plan: From home. Lives alone with 3 cats. Reports Mostly Independent. States has a private caregiver Patrizia. Patient states she was staying with Patrizia for 2 weeks prior to admission due to concrete work being done near her home. Patient states she wants to return home at discharge. Ambulates with Quad Cane. Has Walker and Wheelchair. Shower Chair and Shower Grab Bars at home. Time Frame for Goals and Treatment : 07/22/24 Planned Interventions, Frequency, and Duration: 4x/week, 1 week Total Number of Visits Planned: 4 Patient to be seen for Therapeutic exercise (04182), Manual therapy (50320), Self-correction management (33491), Patient/Family/Caregiver Education PLAN FOR NEXT VISIT: Continue MLD and compression wrapping. measure leg volume next visit. Continueto facilitate pt obtaining self-managable compression prior to discharge end of May. SUBJECTIVE: Pt reporting she is unsure if she will have transportation for remaining visits. She iswaiting to hear back from a possible construction driver if available. Functional Limitations: walking in the community Pain: Pain Pain Level: 0 Post Treatment Pain Post Treatment Pain Level: 0 PROMIS Scales 04/17/2024 Higher is Better Phys Func - Score 38 (moderate dysfunction) Phys Func - Percentile 12 Self-Eff Symptom - Score 41 (Average) Self-Eff Symptom - Percentile 18 T-scores: mean of general population = 50. 5 points is clinically meaningfully difference Percentiles provide an indication of how the patient's score ranks in relation to the general population. Higher percentile rankings indicate better function/quality of life. 50th percentile is the average of the general population and indicates half of respondents had a worse score. OBJECTIVE MEASURES WITH LEVEL OF FUNCTION: Lymphedema Comment: Pt to dept with compression wraps on both legs and short-stretch supplies in tow. (She removed the wraps while waiting room.) Fibrosis Comments:: B lower legs with increased firmness which did seem to reduce with MLD.. Dryness/Flaking of Skin Comments:: Moderate dryness/flaking. Open lesions are healing with granulation tissue observed. no signs/sx of infection noted. Lymphorrhea Comments:: Moist at L lateral lower leg wtih pressure of leg resting on plinth. Dried lymphorrhea noted on stockinette L lateral lower leg. Gait Gait Observation: Pt ambulates independently using quad cane for w/c <> plinth transfers. Independent transfers sit <> stand and supine to sit, but required assistance to elevate legs onto plinth during sit to supine. TREATMENT: Manual Therapy: 1: MLD B LE sequence, deferred short neck series d/t pt age precaution. 2: Applied short-stretch bandages to B lower legs, ensuring appropriate compression gradient and ptcomfort. 3: Questioned pt if she was able to order matt inelastic velcro wrap. She staets she was not able toas her nephew was not feeling well. Encouraged pt to try again as soon as he is feeling better. Reinforced that she needs to have compression that is manageable for her independently. Skilled Intervention: Manual skills to improve joint mobility, ROM, and decrease pain. Utilized anatomy knowledge of the therapist, and assessment of patient's response to intervention. Manual techniques were performed with clinical decision-making regarding amount of stretch, intensity of pressureand assessment of responses. Manual techniques to facilitate lymphatic dynamics and improve condition of tissue. Billing KX Modifier : Therapist attests that services rendered are medically necessary. Manual TherapyTreatment Minutes: 60 Skilled Treatment Time Minutes (timed and untimed codes): 60 Total Session Time (minutes): 74 Session Start Time : 1451 Session Stop Time : 1605 Grace Lemon, PT documented [facility] [place] NoteHNO ID: [id number] Author: GRACE BONDS PT Service: ? Author Type: Physical Therapist Type: Progress Notes Filed: 05/08/2024 17:00 Note Text: Episode Visit Count: 113 Therapist That Will Accept/Oversee The Plan Of Care: Grace Bonds Start of Care Date: 03/13/21 Onset Date: 02/20/21 (past several weeks) Plan of Care Certification Date: 04/17/24 Next Certification Due Date: 05/16/24 Patient Identified by Name and Date of : Yes REHABILITATION AND SPORTS THERAPY PHYSICAL THERAPY TREATMENT NOTE ASSESSMENT: Chema Koroma tolerated the session with no issues. She demonstrated improvements in skin and soft tissue condition. The patient will continue to benefit from ongoing skilled physical therapy to progress toward set goals. PLAN FOR NEXT VISIT: POC update. SUBJECTIVE: Pt reporting she will have her nephew call to order more bandaging supplies. She states she is looking for another construction driver to hire for her transportation. Her nephew brings her in today. Pain: Pain Pain Level: 0 Post Treatment Pain Post Treatment Pain Level: 0 OBJECTIVE MEASURES WITH LEVEL OF FUNCTION: Lymphedema Comment: Pt to dept with compression wraps on both legs and short-stretch supplies in tow. (She removed the wraps while waiting room.) Fibrosis Comments:: B ankles and mild at lateral distal lower legs Dryness/Flaking of Skin Comments:: Moderate dryness/flaking. Open lesions are healing with granulation tissue observed. no signs/sx of infection noted. Lymphorrhea Comments:: No drainage noted, though slightly moist area over healing lesion L lateral lower leg. R leg wound is now closed. TREATMENT: Manual Therapy: 1: MLD B LE sequence, deferred short neck series d/t pt age precaution. 2: Applied short-stretch bandages to B lower legs,ensuring appropriate compression gradient and pt comfort. Skilled Intervention: Manual skills to improve joint mobility, ROM, and decrease pain. Utilized anatomy knowledge of the therapist, and assessment of patient's response to intervention. Manual techniques were performed with clinical decision-making regarding amount of stretch, intensity of pressure and assessment of responses. Manual techniques to facilitate lymphatic dynamics and improve condition of tissue. Self-Longterm Management: 1: Educated pt and her nephew in options for inelastic velcro compression garments to choose from to order for use after discharge. Provided resources and illustrated handouts of three different garments with pt current measurements for appropriate sizing. All questions were answered. Skilled Intervention: Educated the patient regarding recommendations and provided written instruction to facilitate compliance. Reviewed patient specific diagnosis in relation to activities of daily living/home management. Billing KX Modifier : Therapist attests that services rendered are medically necessary. Manual TherapyTreatment Minutes: 53 Self-Care/Home Management Treatment Minutes: 12 Skilled Treatment Time Minutes (timed and untimed codes): 65 Total Session Time (minutes): 70 Session Start Time : 1450 Session Stop Time : 1600 Grace Bonds [facility]09-13-2024 History of Present illness Narrative* Grace Bonds, PT - 05/08/2024 2:58 PM EDT Episode Visit Count: 113 Therapist That Will Accept/Oversee The Plan Of Care: Grace Bonds Start of Care Date: 03/13/21 Onset Date: 02/20/21 (past several weeks) Plan of Care Certification Date: 04/17/24 Next Certification Due Date: 05/16/24 Patient Identified by Name and Date of : Yes REHABILITATION AND SPORTS THERAPY PHYSICAL THERAPY TREATMENT NOTE ASSESSMENT: Chema Koroma tolerated the session with no issues. She demonstrated improvements in skin and soft tissue condition. The patient will continue to benefit from ongoing skilled physicaltherapy to progress toward set goals. PLAN FOR NEXT VISIT: POC update. SUBJECTIVE: Pt reporting she will have her nephew call to order more bandaging supplies. She statesshe is looking for another construction driver to hire for her transportation. Her nephew brings her in today. Pain: Pain Pain Level: 0 Post Treatment Pain Post Treatment Pain Level: 0 OBJECTIVE MEASURES WITH LEVEL OF FUNCTION: Lymphedema Comment: Pt to dept with compression wraps on both legs and short-stretch supplies in tow. (She removed the wraps while waiting room.) Fibrosis Comments:: B ankles and mild at lateral distal lower legs Dryness/Flaking of Skin Comments:: Moderate dryness/flaking. Open lesions are healing with granulation tissue observed. no signs/sx of infection noted. Lymphorrhea Comments:: No drainage noted, though slightly moist area over healing lesion L lateral lower leg. R leg wound is now closed. TREATMENT: Manual Therapy: 1: MLD B LE sequence, deferred short neck series d/t pt age precaution. 2: Applied short-stretch bandages to B lower legs,ensuring appropriate compression gradient and pt comfort. Skilled Intervention: Manual skills to improve joint mobility, ROM, and decrease pain. Utilized anatomy knowledge of the therapist, and assessment of patient's response to intervention. Manual techniques were performed with clinical decision-making regarding amount of stretch, intensity of pressureand assessment of responses. Manual techniques to facilitate lymphatic dynamics and improve condition of tissue. Self-Longterm Management: 1: Educated pt and her nephew in options for inelastic velcro compression garments to choose from to order for use after discharge. Provided resources and illustrated handouts of three different garments with pt current measurements for appropriate sizing. All questions were answered. Skilled Intervention: Educated the patient regarding recommendations and provided written instruction to facilitate compliance. Reviewed patient specific diagnosis in relation to activities of daily living/home management. Billing KX Modifier : Therapist attests that services rendered are medically necessary. Manual TherapyTreatment Minutes: 53 Self-Care/Home Management Treatment Minutes: 12 Skilled Treatment Time Minutes (timed and untimed codes): 65 Total Session Time (minutes): 70 Session Start Time : 1450 Session Stop Time : 1600 Grace Bonds PT documented in this encounterSelect [facility] [place] NoteHNO ID: [id number] Author: GRACE BONDS PT Service: ? Author Type: Physical Therapist Type: Progress Notes Filed: 04/24/2024 16:13 Note Text: Episode Visit Count: 112 Therapist That Will Accept/Oversee The Plan Of Care: Grace Bonds Start of Care Date: 03/13/21 Onset Date: 02/20/21 (past several weeks) Plan of Care Certification Date: 04/17/24 Next Certification Due Date: 05/16/24 Patient Identified by Name and Date of : Yes REHABILITATION AND SPORTS THERAPY PHYSICAL THERAPY TREATMENT NOTE ASSESSMENT: Chema Koroma tolerated the session with no issues. She demonstrated improvements in skin and soft tissue condition. The patient will continue to benefit from ongoing skilled physical therapy to progress toward set goals. PLAN FOR NEXT VISIT: Continue MLD with compression to achieve skin healing so pt can self-manage with HEP and inelastic compression. SUBJECTIVE: Pt noting some itching around her R calf area. Pain: Pain Pain Level: (Pt did not report any pain today.) Post Treatment Pain Post Treatment Pain Level: 0 Post Treatment Symptoms: Pt denies any further itching. OBJECTIVE MEASURES WITH LEVEL OF FUNCTION: Lymphedema Comment: Pt to dept with compression wraps on both legs and short-stretch supplies in tow. (She was removing wraps while in [facility] waiting area prior to her appt. Fibrosis Comments:: B ankles and mild mostly at lateral lower legs Dryness/Flaking of Skin Comments:: Moderate dryness/flaking. Open lesions are healing with granulation tissue observed. no signs/sx of infection noted. Lymphorrhea Comments:: No drainage noted, though moist area over healing lesion L lateral lower leg. TREATMENT: Manual Therapy: 1: MLD B LE sequence, deferred short neck series d/t pt age precaution. 2: Applied short-stretch bandages to B lower legs with continued education on the effects and importance of doing the decongestive exercises at home daily (2-3 times) during this time. Skilled Intervention: Manual skills to improve joint mobility, ROM, and decrease pain. Utilized anatomy knowledge of the therapist, and assessment of patient's response to intervention. Manual techniques were performed with clinical decision-making regarding amount of stretch, intensity of pressure and assessment of responses. Manual techniques to facilitate lymphatic dynamics and improve condition of tissue. Billing KX Modifier : Therapist attests that services rendered are medically necessary. Total Session Time (minutes): 62 Session Start Time : 1448 Session Stop Time : 1550 [facility] History of Present illness Narrative* Grace Bonds, PT - 04/24/2024 4:03 PM EDT Episode Visit Count: 112 Therapist That Will Accept/Oversee The Plan Of Care: Grace Bonds Start of Care Date: 03/13/21 Onset Date: 02/20/21 (past several weeks) Plan of Care Certification Date: 04/17/24 Next Certification Due Date: 05/16/24 Patient Identified by Name and Date of : Yes REHABILITATION AND SPORTS THERAPY PHYSICAL THERAPY TREATMENT NOTE ASSESSMENT: Chema Koroma tolerated the session with no issues. She demonstrated improvements in skin and soft tissue condition. The patient will continue to benefit from ongoing skilled physicaltherapy to progress toward set goals. PLAN FOR NEXT VISIT: Continue MLD with compression to achieve skin healing so pt can self-manage with HEP and inelastic compression. SUBJECTIVE: Pt noting some itching around her R calf area. Pain: Pain Pain Level: (Pt did not report any pain today.) Post Treatment Pain Post Treatment Pain Level: 0 Post Treatment Symptoms: Pt denies any further itching. OBJECTIVE MEASURES WITH LEVEL OF FUNCTION: Lymphedema Comment: Pt to dept with compression wraps on both legs and short-stretch supplies in tow. (She wasremoving wraps while in [facility] waiting area prior to her appt. Fibrosis Comments:: B ankles and mild mostly at lateral lower legs Dryness/Flaking of Skin Comments:: Moderate dryness/flaking. Open lesions are healing with granulation tissue observed. no signs/sx of infection noted. Lymphorrhea Comments:: No drainage noted, though moist area over healing lesion L lateral lower leg. TREATMENT: Manual Therapy: 1: MLD B LE sequence, deferred short neck series d/t pt age precaution. 2: Applied short-stretch bandages to B lower legs with continued education on the effects and importance of doing the decongestive exercises at home daily (2- 3 times) during this time. Skilled Intervention: Manual skills to improve joint mobility, ROM, and decrease pain. Utilized anatomy knowledge of the therapist, and assessment of patient's response to intervention. Manual techniques were performed with clinical decision-making regarding amount of stretch, intensity of pressureand assessment of responses. Manual techniques to facilitate lymphatic dynamics and improve condition of tissue. Billing KX Modifier : Therapist attests that services rendered are medically necessary. Total Session Time (minutes): 62 Session Start Time : 1448 Session Stop Time : 1550 Grace Bonds PT documented in this encounterSelect [facility] [place] NoteHNO ID: [id number] Author: GRACE BONDS PT Service: ? Author Type: Physical Therapist Type: Progress Notes Filed: 04/17/2024 15:37 Note Text: Episode Visit Count: 111 Therapist That Will Accept/Oversee The Plan Of Care: Grace Bonds Start of Care Date: 03/13/21 Onset Date: 02/20/21 (past several weeks) Plan of Care Certification Date: 04/17/24 Next Certification Due Date: 05/16/24 Patient Identified by Name and Date of : Yes REHABILITATION AND SPORTS THERAPY PHYSICAL THERAPY PROGRESS REPORT PLAN OF CARE UPDATE: Assessment: Chema Koroma demonstrates difficulty with edema management, walking in the community and stair negotiation. She has not progressed towards goals since previous measurements. Patient continues to present with impairments in edema management, overall function, and soft tissue condition that interfere with walking in the community, stair negotiation . Current prognosis is Good due to: current objective clinical presentation, good overall health status, positive past response to therapy chronic nature of impairments, decreased motivation, limited support system . She will benefit from continued skilled therapy services to meet the updated goals for this plan of care as noted below. Goals for Episode of Care: created on 03/13/21 through 05/14/21 Goals updated on 04/20/2024. Patient / family knowledgeable re: all pertinent aspects of CDT (Met) Patient / family independent with donning / doffing compression garment and proper wearing schedule and care of garment (Not Met)-Pt does not have stockings or inelastic garment yet. Patient / family independent with home exercise program (Met)-able, though poor compliance Patient will decrease circumferential measurements by 0.5-13.0 cm in the following areas: B LE for decreased recurrence of infection, improved mobility, improved range of motion and allow appropriate fit in compressive garment. (Partially Met)-met previously, but not today Pt to demonstrate reduction of lymphorrhea to allow for wearing of custom compression garments. (Met) Pt will perform supine <> sit transfer independently. (Partially Met)-at times requires assist for LE floor to plinth. Pt will ambulate with decreased effort. (Met) 10/06/22: Pt will demonstrate reduction in L LE fibrosis (intensity and area). (Met) Patient Goals: To stop the draining and get the left leg smaller again. (Met) 01/04/23, modified 02/14/24: Pt will obtain appropriate fitting compression garment (likely inelastic velcro) for R LE. (Not Met) 05/24/23: Pt will increase B LE strength to 4+ to 5/5 to improve ability to perform transfers and gait. (Not Met) Pt will demonstrate improved gait pattern to increase functional walking distance and improve safety/decreasedrisk of falls. (Met) Dx: Lower extremity edema Post-Acute Discharge Plan: From home. Lives alone with 3 cats. Reports Mostly Independent. States has a private caregiver Patrizia. Patient states she was staying with Patrizia for 2 weeks prior to admission due to concrete work being done near her home. Patient states she wants to return home at discharge. Ambulates with Quad Cane. Has Walker and Wheelchair. Shower Chair and Shower Grab Bars at home. Planned Interventions, Frequency, and Duration: , Patient to be seen for PLAN FOR NEXT VISIT: Continue MLD with compression to achieve skin healing so pt can self-manage with HEP and inelastic compression. 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 She brings her supplies with her. Functional Limitations: walking in the community, stair negotiation Pain: Pain Pain Level: (No specific pain complaints today.) Post Treatment Pain Post Treatment Pain Level: 0 PROMIS Scales 04/17/2024 Higher is Better Phys Func - Score 38 (moderate dysfunction) Phys Func - Percentile 12 Self-Eff Symptom - Score 41 (Average) Self-Eff Symptom - Percentile 18 T-scores: mean of general population = 50. 5 points is clinically meaningfully difference Percentiles provide an indication of how the patient's score ranks in relation to the general population. Higher percentile rankings indicate better function/quality of life. 50th percentile is the average of the general population and indicates half of respondents had a worse score. OBJECTIVE MEASURES WITH LEVEL OF FUNCTION: Lymphedema Comment: Pt to dept with compression wraps on both legs and short-stretch supplies in tow. Color Comments:: No signs of previous scratches on R leg. Fibrosis Comments:: B ankles and mild in lower legs Dryness/Flaking of Skin Comments:: Moderate dryness/flaking. Lymphorrhea Comments:: No drainage noted today. Some scabbing under pad at R medial lower leg. Lower Extremity Circumferential Measurements R 1st toe (proximal phalanx): 9 R Metatarsal Phalangeal (MTP): 23.5 R Arch: 24.5 R 5 cm from floor: 28.5 cm R 10 cm from floor: 24.5 cm R 15 cm from floor: (more content not included)...[facility] 04-17-2024 History of Present illness Narrative* Grace Bonds, PT - 04/17/2024 3:13 PM EDT Images from the original note were not included. Episode Visit Count: 111 Therapist That Will Accept/Oversee The Plan Of Care: Grace Bonds Start of Care Date: 03/13/21 Onset Date: 02/20/21 (past several weeks) Plan of Care Certification Date: 04/17/24 Next Certification Due Date: 05/16/24 Patient Identified by Name and Date of : Yes REHABILITATION AND SPORTS THERAPY PHYSICAL THERAPY PROGRESS REPORT PLAN OF CARE UPDATE: Assessment: Chema Koroma demonstrates difficulty with edema management, walking in the community and stairnegotiation. She has not progressed towards goals since previous measurements. Patient continues topresent with impairments in edema management, overall function, and soft tissue condition that interfere with walking in the community, stair negotiation . Current prognosis is Good due to: current objective clinical presentation, good overall health status, positive past response to therapy chronic nature of impairments, decreased motivation, limited support system . She will benefit from continued skilled therapy services to meet the updated goals for this plan of care as noted below. Goals for Episode of Care: created on 03/13/21 through 05/14/21 Goals updated on 04/20/2024. Patient / family knowledgeable re: all pertinent aspects of CDT (Met) Patient / family independent with donning / doffing compression garment and proper wearing schedule and care of garment (Not Met)-Pt does not have stockings or inelastic garment yet. Patient / family independent with home exercise program (Met)-able, though poor compliance Patient will decrease circumferential measurements by 0.5-13.0 cm in the following areas: B LE for decreased recurrence of infection, improved mobility, improved range of motion and allow appropriate fit in compressive garment. (Partially Met)-met previously, but not today Pt to demonstrate reduction of lymphorrhea to allow for wearing of custom compression garments. (Met) Pt will perform supine <> sit transfer independently. (Partially Met)-at times requires assist for LE floor to plinth. Pt will ambulate with decreased effort. (Met) 10/06/22: Pt will demonstrate reduction in L LE fibrosis (intensity and area). (Met) Patient Goals: To stop the draining and get the left leg smaller again. (Met) 01/04/23, modified 02/14/24: Pt will obtain appropriate fitting compression garment (likely inelasticvelcro) for R LE. (Not Met) 05/24/23: Pt will increase B LE strength to 4+ to 5/5 to improve ability to perform transfers and gait. (Not Met) Pt will demonstrate improved gait pattern to increase functional walking distance and improve safety/decreasedrisk of falls. (Met) Dx: Lower extremity edema Post-Acute Discharge Plan: From home. Lives alone with 3 cats. Reports Mostly Independent. States has a private caregiver Patrizia. Patient states she was staying with Patrizia for 2 weeks prior to admission due to concrete work being done near her home. Patient states she wants to return home at discharge. Ambulates with Quad Cane. Has Walker and Wheelchair. Shower Chair and Shower Grab Bars at home. Planned Interventions, Frequency, and Duration: , Patient to be seen for PLAN FOR NEXT VISIT: Continue MLD with compression to achieve skin healing so pt can self-manage with HEP and inelastic compression. 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 She brings her supplies with her. Functional Limitations: walking in the community, stair negotiation Pain: Pain Pain Level: (No specific pain complaints today.) Post Treatment Pain Post Treatment Pain Level: 0 PROMIS Scales 04/17/2024 Higher is Better Phys Func - Score 38 (moderate dysfunction) Phys Func - Percentile 12 Self-Eff Symptom - Score 41 (Average) Self-Eff Symptom - Percentile 18 T-scores: mean of general population = 50. 5 points is clinically meaningfully difference Percentiles provide an indication of how the patient's score ranks in relation to the general population. Higher percentile rankings indicate better function/quality of life. 50th percentile is the average of the general population and indicates half of respondents had a worse score. OBJECTIVE MEASURES WITH LEVEL OF FUNCTION: Lymphedema Comment: Pt to dept with compression wraps on both legs and short-stretch supplies in tow. Color Comments:: No signs of previous scratches on R leg. Fibrosis Comments:: B ankles and mild in lower legs Dryness/Flaking of Skin Comments:: Moderate dryness/flaking. Lymphorrhea Comments:: No drainage noted today. Some scabbing under pad at R medial lower leg. Lower Extremity Circumferential Measurements R 1st toe (proximal phalanx): 9 R Metatarsal Phalangeal (MTP): 23.5 R Arch: 24.5 R 5 cm from floor: 28.5 cm R 10 cm from floor: 24.5 cm R 15 cm from floor: 35.5 cm R 20 cm from floor: 43 cm R 25 cm from floor: 44.5 cm R 30 cm from floor: 41.5 cm R 35 cm from floor: 44 cm R 40 cm from floor: 45.5 cm R 45 cm from floor: 48.5 cm (knee) R 50 cm from floor: 50 cm R 55 cm from floor: 53.5 cm L 1st toe (proximal phalanx): 8.5 L Metatarsal Phalangeal (MTP): 23 L Arch: 24.5 L 5 cm from floor: 29.5 cm L 10 cm from floor: 30 cm L 15 cm from floor: 46.5 cm L 20 cm from floor: 52.5 cm L 25 cm from floor: 54.5 cm L 30 cm from floor: 56 cm L 35 cm from floor: 51.5 cm (knee) L 40 cm from floor: 55.5 cm L 45 cm from floor: 57.5 cm L 50 cm from floor: 56 cm Affected Leg: Bilateral, Left Leg Larger Calculate Volume : Yes R Lower Extremity Volume: 7193 L Lower Extremity Volume: 9119 Difference in Volume: 1926 Difference in % : 26.78 LE Strength R Hip Flexion (L2): 4+/5 R Hip ABduction: 4-/5 R Hip ADduction: 4/5 R Knee Extension (L3): 4+/5 R Knee Flexion: 4+/5 R Ankle Dorsiflexion (L4): 4+/5 R Ankle Plantar Flexion: 4+/5 L Hip Flexion (L2): 4/5 L Hip ABduction: 4-/5 L Hip ADduction: 4-/5 L Knee Extension (L3): 4/5 L Knee Flexion: 4/5 L Ankle Dorsiflexion (L4): 4+/5 L Ankle Plantar Flexion: 4+/5 TREATMENT: Manual Therapy: 2: Applied short-stretch bandages to B lower legs with continued education in importance of skin care/infection prevention in regards to drainage and healing. Discussed plan to obtain inelastic compression garment for use when skin is closed on lower legs and discharge. Skilled Intervention: Manual skills to improve joint mobility, ROM, and decrease pain. Utilized anatomy knowledge of the therapist, and assessment of patient's response to intervention. Manual techniques were performed with clinical decision-making regarding amount of stretch, intensity of pressureand assessment of responses. Manual techniques to facilitate lymphatic dynamics and improve condition of tissue. Additional time necessary for objective measurements and reassessment due to plan of care update and/or discharge. Billing KX Modifier : Therapist attests that services rendered are medically necessary. Manual TherapyTreatment Minutes: 45 Skilled Treatment Time Minutes (timed and untimed codes): 45 Total Session Time (minutes): 45 Session Start Time : 1315 Session Stop Time : 1400 Grace Bonds PT [facility] [place] NoteHNO ID: [id number] Author: GRACE BONDS PT Service: ? Author Type: Physical Therapist Type: Progress Notes Filed: 04/03/2024 16:23 Note Text: Episode Visit Count: 110 Therapist That Will Accept/Oversee The Plan Of Care: Grace Bonds Start of Care Date: 03/13/21 Onset Date: 02/20/21 (past several weeks) Plan of Care Certification Date: 02/18/24 Next Certification Due Date: 04/15/24 Patient Identified by Name and Date of : Yes REHABILITATION AND SPORTS THERAPY PHYSICAL THERAPY TREATMENT NOTE ASSESSMENT: Chema Koroma tolerated the session with no issues. She demonstrated difficulty with continued lymphorrhea and skin lesions and improvements in soft tissue healing and visible reduction in lower leg edema. The patient will continue to benefit from ongoing skilled physical therapy to progress toward set goals. PLAN FOR NEXT VISIT: Continue MLD and compression to reduce edema and facilitate skin/soft tissue healing. May assess volume measurements. SUBJECTIVE: Pt noting her L leg feels moreheavy' today and required assistance from her nephew's to lift when transferring out of car. Pain: Pain Pain Level: (not rated) Pain Location: Knee - Right Description: Sore Frequency: Intermittent Post Treatment Pain Post Treatment Pain Level: No Change OBJECTIVE MEASURES WITH LEVEL OF FUNCTION: Lymphedema Comment: Pt to dept with compression wraps on both legs and short-stretch supplies in tow. Color Comments:: Scabs from scratches continue to heal. No signs of infection noted today. Pitting Edema Comments:: lower leg edema appears to be mildly reduced. Dryness/Flaking of Skin Comments:: Moderate dryness/flaking. Lymphorrhea Comments:: Drainage noted L>R lower legs at distal 1/3rd anterolateral lower legs. Signs of healing present. TREATMENT: Manual Therapy: 1: MLD B LE sequence, deferred short neck series d/t pt age precaution. 2: Applied short-stretch bandages to B lower legs with continued education in skin care in regards to drainage and healing during this time. Skilled Intervention: Manual skills to improve joint mobility, ROM, and decrease pain. Utilized anatomy knowledge of the therapist, and assessment of patient's response to intervention. Manual techniques were performed with clinical decision-making regarding amount of stretch, intensity of pressure and assessment of responses. Manual techniques to facilitate lymphatic dynamics and improve condition of tissue. Billing KX Modifier : Therapist attests that services rendered are medically necessary. Manual TherapyTreatment Minutes: 52 Skilled Treatment Time Minutes (timed and untimed codes): 52 Total Session Time (minutes): 52 Session Start Time : 1301 Session Stop Time : 1353 Grace Bonds [facility]08-09-2024 History of Present illness Narrative* ChrispranavSheriGrace, PT - 04/03/2024 1:01 PM EDT Episode Visit Count: 110 Therapist That Will Accept/Oversee The Plan Of Care: Grace Bonds Start of Care Date: 03/13/21 Onset Date: 02/20/21 (past several weeks) Plan of Care Certification Date: 02/18/24 Next Certification Due Date: 04/15/24 Patient Identified by Name and Date of : Yes REHABILITATION AND SPORTS THERAPY PHYSICAL THERAPY TREATMENT NOTE ASSESSMENT: Chema Koroma tolerated the session with no issues. She demonstrated difficulty with continued lymphorrhea and skin lesions and improvements in soft tissue healing and visible reduction in lower leg edema. The patient will continue to benefit from ongoing skilled physical therapy to progress toward set goals. PLAN FOR NEXT VISIT: Continue MLD and compression to reduce edema and facilitate skin/soft tissue healing. May assess volume measurements. SUBJECTIVE: Pt noting her L leg feels moreheavy' today and required assistance from her nephew's to lift when transferring out of car. Pain: Pain Pain Level: (not rated) Pain Location: Knee - Right Description: Sore Frequency: Intermittent Post Treatment Pain Post Treatment Pain Level: No Change OBJECTIVE MEASURES WITH LEVEL OF FUNCTION: Lymphedema Comment: Pt to dept with compression wraps on both legs and short-stretch supplies in tow. Color Comments:: Scabs from scratches continue to heal. No signs of infection noted today. Pitting Edema Comments:: lower leg edema appears to be mildly reduced. Dryness/Flaking of Skin Comments:: Moderate dryness/flaking. Lymphorrhea Comments:: Drainage noted L>R lower legs at distal 1/3rd anterolateral lower legs. Signs of healing present. TREATMENT: Manual Therapy: 1: MLD B LE sequence, deferred short neck series d/t pt age precaution. 2: Applied short-stretch bandages to B lower legs with continued education in skin care in regards to drainage and healing during this time. Skilled Intervention: Manual skills to improve joint mobility, ROM, and decrease pain. Utilized anatomy knowledge of the therapist, and assessment of patient's response to intervention. Manual techniques were performed with clinical decision-making regarding amount of stretch, intensity of pressureand assessment of responses. Manual techniques to facilitate lymphatic dynamics and improve condition of tissue. Billing KX Modifier : Therapist attests that services rendered are medically necessary. Manual TherapyTreatment Minutes: 52 Skilled Treatment Time Minutes (timed and untimed codes): 52 Total Session Time (minutes): 52 Session Start Time : 1301 Session Stop Time : 1353 Grace Bonds PT documented [facility] [place] NoteHNO ID: [id number] Author: GRACE BONDS PT Service: ? Author Type: Physical Therapist Type: Progress Notes Filed: 03/27/2024 16:17 Note Text: Episode Visit Count: 109 Therapist That Will Accept/Oversee The Plan Of Care: Grace Bonds Start of Care Date: 03/13/21 Onset Date: 02/20/21 (past several weeks) Plan of Care Certification Date: 02/18/24 Next Certification Due Date: 04/15/24 Patient Identified by Name and Date of : Yes REHABILITATION AND SPORTS THERAPY PHYSICAL THERAPY TREATMENT NOTE ASSESSMENT: Chema Koroma tolerated the session with no issues. She demonstrated difficulty with increased lower leg edema and drainage. The patient will continue to benefit from ongoing skilled physical therapy to progress toward set goals. PLAN FOR NEXT VISIT: Continue MLD and compression to reduce edema and facilitate skin/soft tissue healing. May assess volume measurements. SUBJECTIVE: Pt reports her cat scratched her R anterior lower leg and it started leaking some fluid. She also notes an open area medial R lower leg. She states she removed her wraps at home today. Pain: Pain Pain Level: 0 Post Treatment Pain Post Treatment Pain Level: No Change OBJECTIVE MEASURES WITH LEVEL OF FUNCTION: Lymphedema Comment: Pt to dept with no compresison on legs and short-stretch supplies in tow. Color Comments:: Several small scabs (thin lines) consistent with reports of cat scratches at proximal R lower leg and one on distal R lateral thigh. Pitting Edema Comments:: Visible increase in edema B LEs. Fibrosis Comments:: B ankles Dryness/Flaking of Skin Comments:: Moderate skin dryness with increased flaking (L>R). Drainage noted R>L lower legs at distal 1/3rd anterolateral lower legs. Lymphorrhea Comments:: Drainage noted R>L lower legs at distal 1/3rd anterolateral lower legs. TREATMENT: Manual Therapy: 1: MLD B LE sequence, deferred short neck series d/t pt age precaution. 2: Applied short-stretch bandages to B lower legs with education in skin care. Skilled Intervention: Manual skills to improve joint mobility, ROM, and decrease pain. Utilized anatomy knowledge of the therapist, and assessment of patient's response to intervention. Manual techniques to facilitate lymphatic dynamics and improve condition of tissue. Billing KX Modifier : Therapist attests that services rendered are medically necessary. Manual TherapyTreatment Minutes: 60 Skilled Treatment Time Minutes (timed and untimed codes): 60 Total Session Time (minutes): 60 Session Start Time : 1455 Session Stop Time : 1555 Grace Bonds [facility]08-02-2024 History of Present illness Narrative* Grace Bonds, PT - 03/27/2024 4:05 PM EDT Episode Visit Count: 109 Therapist That Will Accept/Oversee The Plan Of Care: Grace Bonds Start of Care Date: 03/13/21 Onset Date: 02/20/21 (past several weeks) Plan of Care Certification Date: 02/18/24 Next Certification Due Date: 04/15/24 Patient Identified by Name and Date of : Yes REHABILITATION AND SPORTS THERAPY PHYSICAL THERAPY TREATMENT NOTE ASSESSMENT: Chema Koroma tolerated the session with no issues. She demonstrated difficulty with increased lower leg edema and drainage. The patient will continue to benefit from ongoing skilled physical therapy to progress toward set goals. PLAN FOR NEXT VISIT: Continue MLD and compression to reduce edema and facilitate skin/soft tissue healing. May assess volume measurements. SUBJECTIVE: Pt reports her cat scratched her R anterior lower leg and it started leaking some fluid. She also notes an open area medial R lower leg. She states she removed her wraps at home today. Pain: Pain Pain Level: 0 Post Treatment Pain Post Treatment Pain Level: No Change OBJECTIVE MEASURES WITH LEVEL OF FUNCTION: Lymphedema Comment: Pt to dept with no compresison on legs and short-stretch supplies in tow. Color Comments:: Several small scabs (thin lines) consistent with reports of cat scratches at proximal R lower leg and one on distal R lateral thigh. Pitting Edema Comments:: Visible increase in edema B LEs. Fibrosis Comments:: B ankles Dryness/Flaking of Skin Comments:: Moderate skin dryness with increased flaking (L>R). Drainage noted R>L lower legs at distal 1/3rd anterolateral lower legs. Lymphorrhea Comments:: Drainage noted R>L lower legs at distal 1/3rd anterolateral lower legs. TREATMENT: Manual Therapy: 1: MLD B LE sequence, deferred short neck series d/t pt age precaution. 2: Applied short-stretch bandages to B lower legs with education in skin care. Skilled Intervention: Manual skills to improve joint mobility, ROM, and decrease pain. Utilized anatomy knowledge of the therapist, and assessment of patient's response to intervention. Manual techniques to facilitate lymphatic dynamics and improve condition of tissue. Billing KX Modifier : Therapist attests that services rendered are medically necessary. Manual TherapyTreatment Minutes: 60 Skilled Treatment Time Minutes (timed and untimed codes): 60 Total Session Time (minutes): 60 Session Start Time : 1455 Session Stop Time : 1555 Grace Bonds PT documented in this encounter[facility] [place] NoteHNO ID: [id number] Author: GRACE BONDS PT Service: ? Author Type: Physical Therapist Type: Progress Notes Filed: 03/13/2024 16:12 Note Text: Episode Visit Count: 108 Therapist That Will Accept/Oversee The Plan Of Care: Grace Bonds Start of Care Date: 03/13/21 Onset Date: 02/20/21 (past several weeks) Plan of Care Certification Date: 02/18/24 Next Certification Due Date: 04/15/24 Patient Identified by Name and Date of : Yes REHABILITATION AND SPORTS THERAPY PHYSICAL THERAPY PROGRESS REPORT PLAN OF CARE UPDATE: Assessment: Chema Koroma demonstrates difficulty with skin condition (significant dryness/flaking), walking in the community, and stair negotiation and improvements in skin condition (no open wounds). She has progressed toward goals. Patient continues to present with impairments in edema management and overall function that interfere with walking in the community, stair negotiation . Current prognosis is Good due to: current objective clinical presentation, good overall health status, positive past response to therapy chronic nature of impairments, decreased motivation, limited support system . She will benefit from continued skilled therapy services to meet the updated goals for this plan of care as noted below. Goals for Episode of Care: created on 03/13/21 through 05/14/21 Goals updated on 03/13/2024. Patient / family knowledgeable re: all pertinent aspects of CDT (Met) Patient / family independent with donning / doffing compression garment and proper wearing schedule and care of garment (Not Met)-Pt does not have stockings or inelastic garment yet. Patient / family independent with home exercise program (Met)-able, though poor compliance Patient will decrease circumferential measurements by 0.5-13.0 cm in the following areas: B LE for decreased recurrence of infection, improved mobility, improved range of motion and allow appropriate fit in compressive garment. (Met) Pt to demonstrate reduction of lymphorrhea to allow for wearing of custom compression garments. (Met) Pt will perform supine <> sit transfer independently. (Partially Met)-at times requires assist for LE floor to plinth. Pt will ambulate with decreased effort. (Met) 2/11/23: Pt will demonstrate reduction in L LE fibrosis (intensity and area). (Met) Patient Goals: To stop the draining and get the left leg smaller again. (Met) 01/04/23, modified 02/14/24: Pt will obtain appropriate fitting compression garment (likely inelastic velcro) for R LE. (Not Met) 05/24/23: Pt will increase B LE strength to 4+ to 5/5 to improve ability to perform transfers and gait. (Not Met) Pt will demonstrate improved gait pattern to increase functional walking distance and improve safety/decreasedrisk of falls. (Met) Dx: Lower extremity edema Post-Acute Discharge Plan: From home. Lives alone with 3 cats. Reports Mostly Independent. States has a private caregiver Patrizia. Patient states she was staying with Patrizia for 2 weeks prior to admission due to concrete work being done near her home. Patient states she wants to return home at discharge. Ambulates with Quad Cane. Has Walker and Wheelchair. Shower Chair and Shower Grab Bars at home. Planned Interventions, Frequency, and Duration: 1x/week, 4 weeks Total Number of Visits Planned: 4 Patient to be seen for Therapeutic exercise (96470), Neuromuscular re-education (23757), Manual therapy (33512), Self-correction management (38642), Gait Training (50383), Patient/Family/Caregiver Education PLAN FOR NEXT VISIT: Continue with MLD, compression and continued education to prepare pt for self-management following discharge. Obtain LE volume measurements. SUBJECTIVE: Pt reports she has not ordered the compression wrap yet. She reports decreased appetite and food upsets her stomach for which she will be seeing her doctor on Saturday. Functional Limitations: walking in the community, stair negotiation Pain: Pain Pain Level: (not rated numerically) Pain Location: Knee - Left Description: Sore Frequency: Intermittent Post Treatment Pain Post Treatment Pain Level: No Change PROMIS Scales T-scores: mean of general population = 50. 5 points is clinically meaningfully difference Percentiles provide an indication of how the patient's score ranks in relation to the general population. Higher percentile rankings indicate better function/quality of life. 50th percentile is the average of the general population and indicates half of respondents had a worse score. OBJECTIVE MEASURES WITH LEVEL OF FUNCTION: Lymphedema Comment: Pt dept with B lower leg wraps still intact. Color Comments:: Improved skin condition. Fibrosis Comments:: B ankles Dryness/Flaking of Skin Comments:: Moderate skin dryness/flaking (L>R). No drainage noted in either leg.. TREATMENT: Manual Therapy: 1: MLD B LE sequence, deferred short neck series d/t pt age pr (more content not included)...[facility]07-19-2024 History of Present illness Narrative* Grace Bonds, PT - 03/13/2024 3:48 PM EDT Episode Visit Count: 108 Therapist That Will Accept/Oversee The Plan Of Care: Grace Bonds Start of Care Date: 03/13/21 Onset Date: 02/20/21 (past several weeks) Plan of Care Certification Date: 02/18/24 Next Certification Due Date: 04/15/24 Patient Identified by Name and Date of : Yes REHABILITATION AND SPORTS THERAPY PHYSICAL THERAPY PROGRESS REPORT PLAN OF CARE UPDATE: Assessment: Chema Koroma demonstrates difficulty with skin condition (significant dryness/flaking), walking in the community, and stair negotiation and improvements in skin condition (no open wounds). She has progressed toward goals. Patient continues to present with impairments in edema management and ove rall function that interfere with walking in the community, stair negotiation . Current prognosis is Good due to: current objective clinical presentation, good overall health status, positive past response to therapy chronic nature of impairments, decreased motivation, limited support system . She will benefit from continued skilled therapy services to meet the updated goals for this plan of careas noted below. Goals for Episode of Care: created on 03/13/21 through 05/14/21 Goals updated on 03/13/2024. Patient / family knowledgeable re: all pertinent aspects of CDT (Met) Patient / family independent with donning / doffing compression garment and proper wearing schedule and care of garment (Not Met)-Pt does not have stockings or inelastic garment yet. Patient / family independent with home exercise program (Met)-able, though poor compliance Patient will decrease circumferential measurements by 0.5-13.0 cm in the following areas: B LE for decreased recurrence of infection, improved mobility, improved range of motion and allow appropriate fit in compressive garment. (Met) Pt to demonstrate reduction of lymphorrhea to allow for wearing of custom compression garments. (Met) Pt will perform supine <> sit transfer independently. (Partially Met)-at times requires assist for LE floor to plinth. Pt will ambulate with decreased effort. (Met) 10/06/22: Pt will demonstrate reduction in L LE fibrosis (intensity and area). (Met) Patient Goals: To stop the draining and get the left leg smaller again. (Met) 01/04/23, modified 02/14/24: Pt will obtain appropriate fitting compression garment (likely inelasticvelcro) for R LE. (Not Met) 05/24/23: Pt will increase B LE strength to 4+ to 5/5 to improve ability to perform transfers and gait. (Not Met) Pt will demonstrate improved gait pattern to increase functional walking distance and improve safety/decreasedrisk of falls. (Met) Dx: Lower extremity edema Post-Acute Discharge Plan: From home. Lives alone with 3 cats. Reports Mostly Independent. States has a private caregiver Patrizia. Patient states she was staying with Patrizia for 2 weeks prior to admission due to concrete work being done near her home. Patient states she wants to return home at discharge. Ambulates with Quad Cane. Has Walker and Wheelchair. Shower Chair and Shower Grab Bars at home. Planned Interventions, Frequency, and Duration: 1x/week, 4 weeks Total Number of Visits Planned: 4 Patient to be seen for Therapeutic exercise (61112), Neuromuscular re-education (01240), Manual therapy (49751), Self-correction management (68001), Gait Training (28208), Patient/Family/Caregiver Education PLAN FOR NEXT VISIT: Continue with MLD, compression and continued education to prepare pt for self-management following discharge. Obtain LE volume measurements. SUBJECTIVE: Pt reports she has not ordered the compression wrap yet. She reports decreased appetiteand food upsets her stomach for which she will be seeing her doctor on Saturday. Functional Limitations: walking in the community, stair negotiation Pain: Pain Pain Level: (not rated numerically) Pain Location: Knee - Left Description: Sore Frequency: Intermittent Post Treatment Pain Post Treatment Pain Level: No Change PROMIS Scales T-scores: mean of general population = 50. 5 points is clinically meaningfully difference Percentiles provide an indication of how the patient's score ranks in relation to the general population. Higher percentile rankings indicate better function/quality of life. 50th percentile is the average of the general population and indicates half of respondents had a worse score. OBJECTIVE MEASURES WITH LEVEL OF FUNCTION: Lymphedema Comment: Pt dept with B lower leg wraps still intact. Color Comments:: Improved skin condition. Fibrosis Comments:: B ankles Dryness/Flaking of Skin Comments:: Moderate skin dryness/flaking (L>R). No drainage noted in either leg.. TREATMENT: Manual Therapy: 1: MLD B LE sequence, deferred short neck series d/t pt age precaution. 2: Applied short-stretch bandages to B lower legs. During this time continued to educate pt on the importance of home exercise (walking in the home, previously instructed LE strengthening exercises, and LE Decongestive Exercises). Pt states she cannot do them d/t her L knee pain. She states she tries to walk, but is limited d/t clutter. Reminded pt to order inelastic velcro garments so she can manage her edema independently following discharge. Skilled Intervention: Manual skills to improve joint mobility, ROM, and decrease pain. Utilized anatomy knowledge of the therapist, and assessment of patient's response to intervention. Manual techniques to facilitate lymphatic dynamics and improve condition of tissue. Billing KX Modifier : Therapist attests that services rendered are medically necessary. Manual TherapyTreatment Minutes: 60 Skilled Treatment Time Minutes (timed and untimed codes): 60 Total Session Time (minutes): 60 Session Start Time : 1450 Session Stop Time : 1550 Grace Bonds PT [facility] [place] NoteHNO ID: [id number] Author: GRACE BONDS PT Service: ? Author Type: Physical Therapist Type: Progress Notes Filed: 03/04/2024 15:38 Note Text: Episode Visit Count: 107 Therapist That Will Accept/Oversee The Plan Of Care: Grace Bonds Start of Care Date: 03/13/21 Onset Date: 02/20/21 (past several weeks) Plan of Care Certification Date: 02/18/24 Next Certification Due Date: 08/21/24 Patient Identified by Name and Date of : Yes REHABILITATION AND SPORTS THERAPY PHYSICAL THERAPY TREATMENT NOTE ASSESSMENT: Chema Koroma tolerated the session with no issues. She demonstrated improvements in skin and soft tissue condition with all open wounds now healed. The patient will continue to benefit from ongoing skilled physical therapy to progress toward set goals. PLAN FOR NEXT VISIT: SUBJECTIVE: Pt notes she had diarrhea on her wraps and her aid changed out her wraps. (Just the top wraps according to pt.) Reports her knee is just sore today. Stating, If I don't do much up on my feet, it doesn't hurt much. She states she does not want to do any exercises d/t her knee pain. Pain: Pain Pain Level: (not rated numerically) Pain Location: Knee - Left (inferomedial knee) Description: Sore, Other: See comment (Pt notes no pain if stays still in one position.) Frequency: Intermittent Post Treatment Pain Post Treatment Pain Level: No Change OBJECTIVE MEASURES WITH LEVEL OF FUNCTION: Lymphedema Comment: Pt to dept with R leg short-stretch wraps removed, but still in place L LE. All other wrapping supplies in tow. Color Comments:: Skin condition is improved with no open areas. Only mild pink at central-most edema (mid calves). Fibrosis Comments:: B ankles Dryness/Flaking of Skin Comments:: Mild to moderate skin dryness/flaking (L>R). No drainage noted. TREATMENT: Manual Therapy: 1: MLD B LE sequence, deferred short neck series d/t pt age precaution. 2: Applied short-stretch bandages to B lower legs. During this time continuued to educate pt on the inelastic velcro compression garments and options of different brands. Supplied pt and her nephew's with illustrated handout of information to look into and purchase several options, including Circaid LE Reduction Kit. all questions were answered for pt and her nephew's , Amy. Skilled Intervention: Manual skills to improve joint mobility, ROM, and decrease pain. Utilized anatomy knowledge of the therapist, and assessment of patient's response to intervention. Manual techniques to facilitate lymphatic dynamics and improve condition of tissue. Billing KX Modifier : Therapist attests that services rendered are medically necessary. Manual TherapyTreatment Minutes: 61 Skilled Treatment Time Minutes (timed and untimed codes): 61 Total Session Time (minutes): 61 Session Start Time : 1409 Session Stop Time : 1510 Grace Bonds, [facility]07-10-2024 History of Present illness Narrative* Grace Bonds, PT - 03/04/2024 2:14 PM EDT Episode Visit Count: 107 Therapist That Will Accept/Oversee The Plan Of Care: Grace Bonds Start of Care Date: 03/13/21 Onset Date: 02/20/21 (past several weeks) Plan of Care Certification Date: 02/18/24 Next Certification Due Date: 04/15/24 Patient Identified by Name and Date of : Yes REHABILITATION AND SPORTS THERAPY PHYSICAL THERAPY TREATMENT NOTE ASSESSMENT: Chema Koroma tolerated the session with no issues. She demonstrated improvements in skin and soft tissue condition with all open wounds now healed. The patient will continue to benefit from ongoing skilled physical therapy to progress toward set goals. PLAN FOR NEXT VISIT: SUBJECTIVE: Pt notes she had diarrhea on her wraps and her aid changed out her wraps. (Just the topwraps according to pt.) Reports her knee is just sore today. Stating, If I don't do much up on my feet, it doesn't hurt much. She states she does not want to do any exercises d/t her knee pain. Pain: Pain Pain Level: (not rated numerically) Pain Location: Knee - Left (inferomedial knee) Description: Sore, Other: See comment (Pt notes no pain if stays still in one position.) Frequency: Intermittent Post Treatment Pain Post Treatment Pain Level: No Change OBJECTIVE MEASURES WITH LEVEL OF FUNCTION: Lymphedema Comment: Pt to dept with R leg short-stretch wraps removed, but still in place L LE. All other wrapping supplies in tow. Color Comments:: Skin condition is improved with no open areas. Only mild pink at central-most edema (mid calves). Fibrosis Comments:: B ankles Dryness/Flaking of Skin Comments:: Mild to moderate skin dryness/flaking (L>R). No drainage noted. TREATMENT: Manual Therapy: 1: MLD B LE sequence, deferred short neck series d/t pt age precaution. 2: Applied short-stretch bandages to B lower legs. During this time continuued to educate pt on theinelastic velcro compression garments and options of different brands. Supplied pt and her nephew'swife with illustrated handout of information to look into and purchase several options, including Circaid LE Reduction Kit. all questions were answered for pt and her nephew's , Amy. Skilled Intervention: Manual skills to improve joint mobility, ROM, and decrease pain. Utilized anatomy knowledge of the therapist, and assessment of patient's response to intervention. Manual techniques to facilitate lymphatic dynamics and improve condition of tissue. Billing KX Modifier : Therapist attests that services rendered are medically necessary. Manual TherapyTreatment Minutes: 61 Skilled Treatment Time Minutes (timed and untimed codes): 61 Total Session Time (minutes): 61 Session Start Time : 1409 Session Stop Time : 1510 Grace Bonds PT documented in this encounter[facility] [place] History of Present illness Narrative* Grace Bonds PT - 02/14/2024 2:17 PM EDT Episode Visit Count: 106 Therapist That Will Accept/Oversee The Plan Of Care: Grace Bonds Start of Care Date: 03/13/21 Onset Date: 02/20/21 (past several weeks) Plan of Care Certification Date: 02/18/24 Next Certification Due Date: 04/15/24 Patient Identified by Name and Date of : Yes REHABILITATION AND SPORTS THERAPY PHYSICAL THERAPY PROGRESS REPORT PLAN OF CARE UPDATE: Assessment: Chema Koroma demonstrates difficulty with walking in the community and stair negotiation and improvements in B LE volume and skin/soft tissue condition. She has progressed toward goals. Patient continues to present with impairments in edema management, gait, strength, and skin/soft tissue condition that interfere with walking in the community, stair negotiation . Current prognosis is Good due to: current objective clinical presentation, good overall health status, positive past response totherapy chronic nature of impairments, decreased motivation, limited support system . She will benefit from continued skilled therapy services to meet the updated goals for this plan of care as notedbelow. Goals for Episode of Care: created on 03/13/21 through 05/14/21 Goals updated on 02/14/2024. Patient / family knowledgeable re: all pertinent aspects of CDT (Met) Patient / family independent with donning / doffing compression garment and proper wearing schedule and care of garment (Not Met)-Pt does not have stockings or inelastic garment yet. Patient / family independent with home exercise program (Met)-able, though poor compliance Patient will decrease circumferential measurements by 0.5-13.0 cm in the following areas: B LE for decreased recurrence of infection, improved mobility, improved range of motion and allow appropriate fit in compressive garment. (Met) Pt to demonstrate reduction of lymphorrhea to allow for wearing of custom compression garments. (Met) Pt will perform supine <> sit transfer independently. (Met) Pt will ambulate with decreased effort. (Met) 10/06/22: Pt will demonstrate reduction in L LE fibrosis (intensity and area). (Met) Patient Goals: To stop the draining and get the left leg smaller again. (Met) 01/04/23, modified 02/14/24: Pt will obtain appropriate fitting compression garment (likely inelasticvelcro) for R LE. (Not Met) 05/24/23: Pt will increase B LE strength to 4+ to 5/5 to improve ability to perform transfers and gait. (Not Met) Pt will demonstrate improved gait pattern to increase functional walking distance and improve safety/decreasedrisk of falls. (Met) Dx: Lower extremity edema Post-Acute Discharge Plan: From home. Lives alone with 3 cats. Reports Mostly Independent. States has a private caregiver Patrizia. Patient states she was staying with Patrizia for 2 weeks prior to admission due to concrete work being done near her home. Patient states she wants to return home at discharge. Ambulates with Quad Cane. Has Walker and Wheelchair. Shower Chair and Shower Grab Bars at home. Planned Interventions, Frequency, and Duration: 2x/week, 8 weeks Total Number of Visits Planned: 16 Patient to be seen for Therapeutic exercise (39146), Neuromuscular re-education (01983), Manual therapy (52180), Self-correction management (82142), Gait Training (43848), Patient/Family/Caregiver Education PLAN FOR NEXT VISIT: Progress LE strengthening ex. Continue MLD L LE with short- stretch wraps untilpt obtains inelastic velcro garments. Instruct pt in use of sample Circaid Reduction wrap to educate and assess/convince of her ability to perform independently. SUBJECTIVE: Pt reports Saturday when she got home she sat in her chair and after she woke up she was unable to stand up. She had pain in her L knee/lower leg and when tried to stand, her leg gave out. She had to call her family to help her get up out of the chair. Pt notes she had tests for blood clot and something else (she can't recall), but were both negative. Increased pain with weight bearing.She ntoes she saw Dr. Benitez since then who told her to continue with therapy. pain L knee to proximal anteromedial lower leg has been less this week and is aggravated with weight bearing. Functional Limitations: walking in the community, stair negotiation Pain: Pain Pain Location: Knee - Left (inferomedial to knee) Post Treatment Pain Post Treatment Pain Level: No Change PROMIS Scales T-scores: mean of general population = 50. 5 points is clinically meaningfully difference Percentiles provide an indication of how the patient's score ranks in relation to the general population. Higher percentile rankings indicate better function/quality of life. 50th percentile is the average of the general population and indicates half of respondents had a worse score. OBJECTIVE MEASURES WITH LEVEL OF FUNCTION: Lymphedema Comment: Pt to dept with both lower leg wraps in place. L wrap is incorrectly wrapped, but padding is in place under 2 short-stretch bandages. Color Comments:: skin is condition is improved and no open areas on R LE. Small (<0.5cm) spot onL lower leg open/raw. Fibrosis Comments:: B ankles Dryness/Flaking of Skin Comments:: moderate skin dryness/flaking with no drainage noted. Lower Extremity Circumferential Measurements R 1st toe (proximal phalanx): 9 R Metatarsal Phalangeal (MTP): 22.5 R Arch: 23.5 R 5 cm from floor: 25 cm R 10 cm from floor: 22.5 cm R 15 cm from floor: 31 cm R 20 cm from floor: 36.5 cm R 25 cm from floor: 38 cm R 30 cm from floor: 38 cm R 35 cm from floor: 38 cm R 40 cm from floor: 39 cm R 45 cm from floor: 45.5 cm (knee) R 50 cm from floor: 46 cm R 55 cm from floor: 51.5 cm L 1st toe (proximal phalanx): 8.5 L Metatarsal Phalangeal (MTP): 22.5 L Arch: 23.5 L 5 cm from floor: 27 cm L 10 cm from floor: 28.5 cm L 15 cm from floor: 43.5 cm L 20 cm from floor: 48 cm L 25 cm from floor: 48 cm L 30 cm from floor: 45.5 cm L 35 cm from floor: 49 cm (knee) L 40 cm from floor: 50 cm L 45 cm from floor: 50 cm L 50 cm from floor: 53.5 cm Affected Leg: Bilateral, Left Leg Larger Calculate Volume : Yes R Lower Extremity Volume: 5751 L Lower Extremity Volume: 7378 Difference in Volume: 1627 Difference in % : 28.29 LE Strength R Hip Flexion (L2): 4+/5 R Hip ABduction: 4-/5 R Hip ADduction: 4/5 R Knee Extension (L3): 4+/5 R Knee Flexion: 4+/5 R Ankle Dorsiflexion (L4): 4+/5 R Ankle Plantar Flexion: 4+/5 L Hip Flexion (L2): 4/5 L Hip ABduction: 4-/5 L Hip ADduction: 4-/5 L Knee Extension (L3): 4/5 L Knee Flexion: 4/5 L Ankle Dorsiflexion (L4): 4+/5 L Ankle Plantar Flexion: 4+/5 TREATMENT: Therapeutic Exercise: 1: Reviewed pt HEP and encouraged her to perform daily. Emphasized importance of compliance in order to improve her gait, transfers, lymphatic dynamics, and overall function. 2: Pt with questions regarding matt exercises performed last session. Pt notes that she likes doingthe machine (seated stepper), so educated that the home exercises are just as beneficial and effective. Skilled Intervention: Patient was educated in proper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 short neck series d/t pt age precaution. 2: Applied short stretch bandaging to B lower legs. Appropriate graduated compression palpable and adequate ankle ROM wtih wraps in place. Skilled Intervention: Manual skills to improve joint mobility, ROM, and decrease pain. Utilized anatomy knowledge of the therapist, and assessment of patient's response to intervention. Self-Longterm Management: 1: Again reviewed recommended compression garments with pt to obtain via local [employer] or online. Educated pt on importance of having garment that she can independently manage following discharge from PT to maintain the improvements she has made. Skilled Intervention: Skilled judgment in the selection of proper modification for activity of daily living/home management based on clinical presentation, deficits, and needs. Educated the patient regarding recommendations and provided written instruction to facilitate compliance. Reviewed patient specific diagnosis in relation to activities of daily living/home management. Billing Manual TherapyTreatment Minutes: 52 Self-Care/Home Management Treatment Minutes: 10 Skilled Treatment Time Minutes (timed and untimed codes): 62 Total Session Time (minutes): 62 Session Start Time : 1458 Session Stop Time : 1600 Grace Bonds PT documented in this encounterSelect [facility] [place] History of Present illness Narrative* Grace Bonds PT - 11/29/2023 4:21 PM EDT Episode Visit Count: 100 Therapist That Will Accept/Oversee The Plan Of Care: Grace Bonds Start of Care Date: 03/13/21 Onset Date: 02/20/21 (past several weeks) Plan of Care Certification Date: 11/15/23 Next Certification Due Date: 12/16/23 Patient Identified by Name and Date of : Yes REHABILITATION AND SPORTS THERAPY PHYSICAL THERAPY TREATMENT NOTE ASSESSMENT: Chema Koroma tolerated the session with no issues. She demonstrated improvements in skin condition and more normal contour at distal lower legs and ankles. The patient will continue to benefit from ongoing skilled physical therapy to progress toward set goals. PLAN FOR NEXT VISIT: Cont. B LE MLD and short-stretch wraps, and facilitate pt obtaining compression garment. SUBJECTIVE: Pt states her L great toe has been hurting and she took a Tylenol earlier today which has relieved it. She is ready to investigate the compression garments and try to get something ordered, but will need to have her nephew or aid, Patrizia, help her as she does not have a computer. Pain: Pain Pain Level: 0 (0 currently, enough that I needed to take a Tylenol earlier today) Post Treatment Pain Post Treatment Pain Level: 0 OBJECTIVE MEASURES WITH LEVEL OF FUNCTION: Lymphedema Comment: Pt to dept with both wraps in place. Pt in process of removing one wrap prior to coming back to dept. Dryness/Flaking of Skin Comments:: Dryness present with some sloughing of scaliness, Improved skin condition with only small area R distal medial lower leg and medium sized L anterolateral lower leg with some rawness. Improved contour distal lower legs and ankles. TREATMENT: Manual Therapy: 1: MLD B LE sequence, deferred short neck series d/t pt age precaution. 2: Applied short stretch bandaging to B lower legs. Appropriate graduated compression palpable and adequate ankle ROM wtih wraps in place. Skilled Intervention: Manual skills to improve joint mobility, ROM, and decrease pain. Utilized anatomy knowledge of the therapist, and assessment of patient's response to intervention. Manual techniques to facilitate lymphatic dynamics and improve condition of tissue. Billing Manual TherapyTreatment Minutes: 67 Skilled Treatment Time Minutes (timed and untimed codes): 67 Total Session Time (minutes): 67 Session Start Time : 1453 Session Stop Time : 1600 Grace Bonds PT documented in this encounterSelect [facility] [place]-[facility] History of Present illness Narrative* Grace Bonds PT - 11/15/2023 3:04 PM EDT Episode Visit Count: 98 Therapist That Will Accept/Oversee The Plan Of Care: Grace Bonds Start of Care Date: 03/13/21 Onset Date: 02/20/21 (past several weeks) Plan of Care Certification Date: 11/15/23 Next Certification Due Date: 12/16/23 Patient Identified by Name and Date of : Yes REHABILITATION AND SPORTS THERAPY PHYSICAL THERAPY PROGRESS REPORT PLAN OF CARE UPDATE: Assessment: Chema Koroma demonstrates improvements in limb volume, skin/soft tissue condition, and transfers. She has progressed toward goals. Patient continues to present with impairments in edema management, overall function, and soft tissue healing that interfere with . Current prognosis is Excellent due to: current objective clinical presentation, good overall health status, positive past response to therapy chronic nature of impairments, decreased motivation, limited support system . Pt would benefit from continued therapy with goals of complete skin/soft tissue healing, and independence with compression garment to insure effective self-management following discharge. She will benefit from continued skilled therapy services to meet the updated goals for this plan of care as noted below. Goals for Episode of Care: created on 03/13/21 through 05/14/21 Goals updated on 10/17/2023. Patient / family knowledgeable re: all pertinent aspects of CDT (Met) Patient / family independent with donning / doffing compression garment and proper wearing schedule and care of garment (Not Met)-Pt does not have stockings or inelastic garment yet. Patient / family independent with home exercise program (Met) Patient will decrease circumferential measurements by 0.5-13.0 cm in the following areas: B LE for decreased recurrence of infection, improved mobility, improved range of motion and allow appropriate fit in compressive garment. (Met) Pt to demonstrate reduction of lymphorrhea to allow for wearing of custom compression garments. (Met) Pt will perform supine <> sit transfer independently. (Met) Pt will ambulate with decreased effort. (Met) 10/06/22: Pt will demonstrate reduction in L LE fibrosis (intensity and area). (Met) Patient Goals: To stop the draining and get the left leg smaller again. (Partially Met) 01/04/23: Pt will obtain appropriate fitting compression stocking for R LE. (Not Met) 05/24/23: Pt will increase B LE strength to 4+ to 5/5 to improve ability to perform transfers and gait. (Partially Met) Pt will demonstrate improved gait pattern to increase functional walking distance and improve safety/decreasedrisk of falls. (Met) Dx: Lower extremity edema Post-Acute Discharge Plan: From home. Lives alone with 3 cats. Reports Mostly Independent. States has a private caregiver Patrizia. Patient states she was staying with Patrizia for 2 weeks prior to admission due to concrete work being done near her home. Patient states she wants to return home at discharge. Ambulates with Quad Cane. Has Walker and Wheelchair. Shower Chair and Shower Grab Bars at home. Planned Interventions, Frequency, and Duration: 2x/week, 4 weeks Total Number of Visits Planned: 8 Patient to be seen for Therapeutic exercise (86529), Neuromuscular re-education (68923), Manual therapy (59822), Self-correction management (80191), Gait Training (03839), Patient/Family/Caregiver Education PLAN FOR NEXT VISIT: Continue MLD and exercise to fully achieve goals. provide handouts of recommended compression garments for pt to review and may order online or purchase locally. SUBJECTIVE: Pt noting good fit of wraps and had removed them earlier today. shenotes she had clear seeping at L lateral lower leg. Pain: Pain Pain Level: 0 Post Treatment Pain Post Treatment Pain Level: 0 PROMIS Scales T-scores: mean of general population = 50. 5 points is clinically meaningfully difference Percentiles provide an indication of how the patient's score ranks in relation to the general population. Higher percentile rankings indicate better function/quality of life. 50th percentile is the average of the general population and indicates half of respondents had a worse score. OBJECTIVE MEASURES WITH LEVEL OF FUNCTION: Lymphedema Comment: Pt presents without compression and wrapping suplies in tow. Pitting Edema Comments:: no pitting Fibrosis Comments:: B ankles Dryness/Flaking of Skin Comments:: Dryness of skin which improved following pt aid washing feet/lower legs prior to treatment. Lymphorrhea Comments:: Mild weeping L lateral lower leg Lower Extremity Circumferential Measurements R 1st toe (proximal phalanx): 9 R Metatarsal Phalangeal (MTP): 23 R Arch: 26 R 5 cm from floor: 29 cm R 10 cm from floor: 23.5 cm R 15 cm from floor: 32.5 cm R 20 cm from floor: 40 cm R 25 cm from floor: 45.5 cm R 30 cm from floor: 49 cm R 35 cm from floor: 50 cm R 40 cm from floor: 49 cm (knee) R 45 cm from floor: 49 cm R 50 cm from floor: 54 cm L 1st toe (proximal phalanx): 8 L Metatarsal Phalangeal (MTP): 23 L Arch: 24.5 L 5 cm from floor: 31 cm L 10 cm from floor: 27 cm L 15 cm from floor: 38 cm L 20 cm from floor: 45.5 cm L 25 cm from floor: 47 cm L 30 cm from floor: 52 cm L 35 cm from floor: 50 cm L 40 cm from floor: 53 cm (knee) L 45 cm from floor: 53 cm L 50 cm from floor: 54.5 cm Affected Leg: Bilateral, Left Leg Larger Calculate Volume : Yes R Lower Extremity Volume: 6696 L Lower Extremity Volume: 7644 Difference in Volume: 948 Difference in % : 14.16 TREATMENT: Manual Therapy: 1: MLD B LE sequence, deferred short neck series d/t pt age precaution. 2: Applied short stretch bandaging to B lower legs. Appropriate graduated compression palpable and adequate ankle ROM wtih wraps in place. Skilled Intervention: Manual skills to improve joint mobility, ROM, and decrease pain. Utilized anatomy knowledge of the therapist, and assessment of patient's response to intervention. Manual techniques to facilitate lymphatic dynamics and improve condition of tissue. Additional time necessary forobjective measurements and reassessment due to plan of care update. Billing Manual TherapyTreatment Minutes: 60 Skilled Treatment Time Minutes (timed and untimed codes): 60 Total Session Time (minutes): 60 Session Start Time : 1500 Session Stop Time : 1600 Grace Bonds PT [facility] [place] History of Present illness Narrative* Grace Bonds PT - 10/28/2023 7:31 PM EST Episode Visit Count: 97 Therapist That Will Accept/Oversee The Plan Of Care: Grace Bonds Start of Care Date: 03/13/21 Onset Date: 02/20/21 (past several weeks) Plan of Care Certification Date: 10/04/23 Next Certification Due Date: 11/02/23 Patient Identified by Name and Date of : Yes REHABILITATION AND SPORTS THERAPY PHYSICAL THERAPY TREATMENT NOTE ASSESSMENT: Chema Koroma tolerated the session with no issues. She demonstrated improvements in skin and soft tissue condition B lower legs. The patient will continue to benefit from ongoing skilled physical therapy for reassessment by supervising therapist. PLAN FOR NEXT VISIT: POC update. SUBJECTIVE: Pt reporting good fit of wraps and still has them in place today. Pain: Pain Pain Level: 0 Post Treatment Pain Post Treatment Pain Level: 0 OBJECTIVE MEASURES WITH LEVEL OF FUNCTION: Lymphedema Comment: Pt presents with B LE compression wraps in place to knees and in good condition. Color Comments:: Improved skin color B lower legs Pitting Edema Comments:: No pitting appreciated today Fibrosis Comments:: B ankles Dryness/Flaking of Skin Comments:: Significant dryness/flaking of skin upon initial removal of wraps. Pt's aid washed her legs and feet after removal of wraps (while therapist started abdominal sequence) and skin condition was much improved after that. Lymphorrhea Comments:: Minimal spotting of dried drainage on inner layer of bandages L>R. TREATMENT: Manual Therapy: 1: Removed B LE bandages and inspected skin and soft tissue condition. 2: MLD B LE sequence, deferred short neck series d/t pt age precaution. 3: Applied short stretch bandaging to B lower legs. Appropriate graduated compression palpable and adequate ankle ROM wtih wraps in place. Skilled Intervention: Manual skills to improve joint mobility, ROM, and decrease pain. Utilized anatomy knowledge of the therapist, and assessment of patient's response to intervention. Manual techniques to facilitate lymphatic dynamics and improve condition of tissue. Billing Manual TherapyTreatment Minutes: 67 Skilled Treatment Time Minutes (timed and untimed codes): 67 Total Session Time (minutes): Session Start Time : 1804 Session Stop Time : 1911 Grace Bonds PT documented in [facility] [place] History of Present illness Narrative* Grace Bonds PT - 10/14/2023 4:17 PM EST Episode Visit Count: 95 Therapist That Will Accept/Oversee The Plan Of Care: Grace Bonds Start of Care Date: 03/13/21 Onset Date: 02/20/21 (past several weeks) Plan of Care Certification Date: 10/04/23 Next Certification Due Date: 11/02/23 Patient Identified by Name and Date of : Yes REHABILITATION AND SPORTS THERAPY PHYSICAL THERAPY TREATMENT NOTE ASSESSMENT: Chema Koroma tolerated the session with no issues. She demonstrated improvements in skin condition B LEs and compression wraps maintained in good condition. The patient will continueto benefit from ongoing skilled physical therapy to progress toward set goals. PLAN FOR NEXT VISIT: Continue with resuming exercise, continue MLD, and compression wrapping B LEs. SUBJECTIVE: Pt states she completed her course of antibiotics with last dose on Saturday. Pt reports continued difficulty with transportation for medical appointments as her aid is currently ill and her nephew and his are limited in time off of work. [facility]. Pain: Pain Pain Level: (denies pain, but notes itching at R lower leg (medially)) Post Treatment Pain Post Treatment Pain Level: 0 OBJECTIVE MEASURES WITH LEVEL OF FUNCTION: Lymphedema Comment: Pt presents with B LE compression wraps in place to knees and in good condition. Color Comments:: No specific redness at R lower leg anymore. Healing area at medial distal half of lower leg remains, though reduced in size. Lymphorrhea Comments:: spots of dried drainage on underlayer of bandages B lower legs TREATMENT: Manual Therapy: 1: Removed short-stretch wraps from both lower legs. 2: Applied short stretch bandaging to B lower legs. Appropriate graduated compression palpable and adequate ankle ROM wtih wraps in place. 3: Did not have time to add MLD as pt was late for appt. Skilled Intervention: Manual skills to improve joint mobility, ROM, and decrease pain. Utilized anatomy knowledge of the therapist, and assessment of patient's response to intervention. Manual techniques to facilitate lymphatic dynamics and improve condition of tissue. Billing Manual TherapyTreatment Minutes: 33 Skilled Treatment Time Minutes (timed and untimed codes): 33 Total Session Time (minutes): 33 Session Start Time : 1542 Session Stop Time : 1615 Grace Bonds PT documented in this [facility] [place] History of Present illness Narrative* Grace Bonds PT - 10/07/2023 12:41 PM EST Episode Visit Count: 94 Therapist That Will Accept/Oversee The Plan Of Care: Grace Bonds Start of Care Date: 03/13/21 Onset Date: 02/20/21 (past several weeks) Plan of Care Certification Date: 10/04/23 Next Certification Due Date: 11/02/23 Patient Identified by Name and Date of : Yes REHABILITATION AND SPORTS THERAPY PHYSICAL THERAPY TREATMENT NOTE ASSESSMENT: Chema Koroma tolerated the session with no issues. She demonstrated difficulty with B LE edema and infection R lower leg. The patient will continue to benefit from ongoing skilled physical therapy to progress toward set goals. PLAN FOR NEXT VISIT: Plan to continue with compression wrapping only, until pt completes her course of antibiotics and infection is resolved. Then resume MLD and wrapping to return to managable volume and facilitate healing of tissue and improved skin/soft tissue integrity. Goal continues to be fitting pt with appropriate compression garments to allow for improved and effective self-management. SUBJECTIVE: Pt reports she saw a doctor in her primary physician's office after last visit and is scheduled for follow up with Dr. Benitez (PCP) this Wednesday 10/11. She started antibiotic prescription onSaturday evening and has taken twice daily since. Pain: Pain Pain Level: (not rated numerically) Pain Location: Calf - Right Description: Sore Post Treatment Pain Post Treatment Pain Level: 0 OBJECTIVE MEASURES WITH LEVEL OF FUNCTION: Lymphedema Comment: Pt presents with L LE wrap in place from last session here. R LE has wrap prison up lowerleg to ankle with wrinkling/slouching and wetness throughout from lymphorrhea drainage. Color Comments:: Redness at distal R lower leg from mid-calf to above ankle circumferentially. Healing, scabbing area about 2x 3 medial R lower leg. Coloration throughout does not appear to be quite as strong/bright, but is dispersed throughmid leg to upper ankle area. Lymphorrhea Comments:: spots of dried drainage on underlayer of bandages L lower leg Gait Gait Observation: Pt ambulates independently using quad cane for w/c <> plinth transfers. Independent transfers sit <> stand and supine to sit, but required assistance to elevate legs onto plinth during sit to supine. TREATMENT: Manual Therapy: 1: Removed short-stretch wraps from both lower legs. 2: Applied short stretch bandaging to B lower legs. Appropriate graduated compression palpable and adequate ankle ROM wtih wraps in place and no difficulty fitting into shoe. Skilled Intervention: Manual skills to improve joint mobility, ROM, and decrease pain. Utilized anatomy knowledge of the therapist, and assessment of patient's response to intervention. Manual techniques to facilitate lymphatic dynamics and improve condition of tissue. Billing Manual TherapyTreatment Minutes: 45 Skilled Treatment Time Minutes (timed and untimed codes): 45 Total Session Time (minutes): 45 Session Start Time : 1243 Session Stop Time : 1328 Grace Bonds PT documented in this [facility] [place] History of Present illness Narrative* Grace Bonds, PT - 10/04/2023 10:47 AM EST Episode Visit Count: 93 Therapist That Will Accept/Oversee The Plan Of Care: Grace Bonds Start of Care Date: 03/13/21 Onset Date: 02/20/21 (past several weeks) Plan of Care Certification Date: 10/04/23 Next Certification Due Date: 11/02/23 Patient Identified by Name and Date of : Yes REHABILITATION AND SPORTS THERAPY PHYSICAL THERAPY PROGRESS REPORT PLAN OF CARE UPDATE: Assessment: Chema Koroma demonstrates difficulty with increased edema and skin/soft tissue lesion, car transfers, and walking in the community. She has not progressed towards goals since last seen. Patient continues to present with impairments in edema management, overall function, and soft tissue healingthat interfere with (car transfers, community ambulation) . Current prognosis is Excellent due to: current objective clinical presentation, good overall health status, positive past response to therapy chronic nature of impairments, decreased motivation, limited support system . Pt has had a lapse in treatment d/t pt and caregiver illness. During this time she has developed increased edema B LE, red area and lesion on R lower leg. Pt was referred to primary care for assessment of skin/soft tissue condition with concern for infection/cellulitis. She will benefit from continued skilled therapy services to meet the updated goals for this plan of care as noted below. Goals for Episode of Care: created on 03/13/21 through 05/14/21 Goals updated on 10/04/2023. Patient / family knowledgeable re: all pertinent aspects of CDT (Met) Patient / family independent with donning / doffing compression garment and proper wearing schedule and care of garment (Not Met)-Pt does not have stockings or inelastic garment yet. Patient / family independent with home exercise program (Met) Patient will decrease circumferential measurements by 0.5-13.0 cm in the following areas: B LE for decreased recurrence of infection, improved mobility, improved range of motion and allow appropriate fit in compressive garment. (Not Met) Pt to demonstrate reduction of lymphorrhea to allow for wearing of custom compression garments. (Met) Pt will perform supine <> sit transfer independently. (Partially Met)-inconsistent Pt will ambulate with decreased effort. (Met) 10/06/22: Pt will demonstrate reduction in L LE fibrosis (intensity and area). (Met) Patient Goals: To stop the draining and get the left leg smaller again. (Met) 01/04/23: Pt will obtain appropriate fitting compression stocking for R LE. (Not Met) 05/24/23: Pt will increase B LE strength to 4+ to 5/5 to improve ability to perform transfers and gait. (Partially Met) Pt will demonstrate improved gait pattern to increase functional walking distance and improve safety/decreasedrisk of falls. (Met) Dx: Lower extremity edema Post-Acute Discharge Plan: From home. Lives alone with 3 cats. Reports Mostly Independent. States has a private caregiver Patrizia. Patient states she was staying with Patrizia for 2 weeks prior to admission due to concrete work being done near her home. Patient states she wants to return home at discharge. Ambulates with Quad Cane. Has Walker and Wheelchair. Shower Chair and Shower Grab Bars at home. Planned Interventions, Frequency, and Duration: 2x/week, 4 weeks Total Number of Visits Planned: 8 Patient to be seen for Therapeutic exercise (15715), Neuromuscular re-education (02857), Manual therapy (01864), Self-correction management (04180), Gait Training (64889), Patient/Family/Caregiver Education PLAN FOR NEXT VISIT: Will determine further POC after pt is evaluated by medical provider in regards to R lower leg. Will likely continue with compression wrapping at least L LE, either way. Pt will obviously need to have other garments (stocking sor inelastic velcro wraps, as previously recommended) to allow for effective self-management. SUBJECTIVE: Pt reports she was ill for an extended period and then her aid/transportation was ill and she hasn't been able to make it to an appt. She reports her R leg is red and sore. She admits taking one antibiotic daily left over from a previous prescription. Pt states she did not remove the wraps as she did not have anyone to reapply them. Pt arrived 15 min late for appt. today. Functional Limitations: (car transfers, community ambulation) Pain: Pain Pain Level: (not rated) Pain Location: Calf - Right Post Treatment Pain Post Treatment Pain Level: 0 PROMIS Scales T-scores: mean of general population = 50. 5 points is clinically meaningfully difference Percentiles provide an indication of how the patient's score ranks in relation to the general population. Higher percentile rankings indicate better function/quality of life. 50th percentile is the average of the general population and indicates half of respondents had a worse score. OBJECTIVE MEASURES WITH LEVEL OF FUNCTION: Lymphedema Comment: Pt presents with wraps still on lower legs from most recent session 08/23/23. bandages andpadding was scrunched down ,especially on R lower leg where a shelf of sof tissue had developed jsut above top of wrap. L wrap was also slouched down, but not as significantly, with some increase in edema between top of wrap and knee. Color Comments:: Redness at distal R lower leg from shelf proximally about 5-6 inches circumferentially. Raw area about 2x 3 with scabbing medial R lower leg just below shelf. Fibrosis Comments:: Present Dryness/Flaking of Skin Comments:: Significant dryness and flaking of skin B LEs Lymphorrhea Comments:: spots of dried drainage on underlayer of bandages L lower leg Lower Extremity Circumferential Measurements R 1st toe (proximal phalanx): 8.5 R Metatarsal Phalangeal (MTP): 25 R Arch: 27 R 5 cm from floor: 30 cm R 10 cm from floor: 27.5 cm R 15 cm from floor: 51 cm R 20 cm from floor: 51 cm R 25 cm from floor: 53.5 cm R 30 cm from floor: 54.5 cm R 35 cm from floor: 51 cm R 40 cm from floor: 52.5 cm (knee) R 45 cm from floor: 55 cm R 50 cm from floor: 58 cm L 1st toe (proximal phalanx): 8.5 L Metatarsal Phalangeal (MTP): 24 L Arch: 25 L 5 cm from floor: 29.5 cm L 10 cm from floor: 27 cm L 15 cm from floor: 39.5 cm L 20 cm from floor: 47 cm L 25 cm from floor: 51 cm L 30 cm from floor: 56 cm L 35 cm from floor: 53 cm L 40 cm from floor: 55.5 cm (knee) L 45 cm from floor: 58.5 cm L 50 cm from floor: 59 cm Affected Leg: Bilateral, Left Leg Larger Calculate Volume : Yes R Lower Extremity Volume: 8840 L Lower Extremity Volume: 8629 Difference in Volume: -211 Difference in % : -2.39 Gait Gait Observation: Pt ambulates independently using quad cane for w/c <> plinth transfers. Independent transfers sit <> stand and supine to sit, but required assistance to elevate legs onto plinth during sit to supine. TREATMENT: Manual Therapy: 1: Removed short-stretch wraps from both lower legs. 2: Assessed skin and sof ttissue condition and recemmended pt be assessed by primary care, urgent care, or ER today d/t concern for possible infection/cellulitis. (She was also advised to discontinuetaking any antibiotics until she is specifically prescribed for this episode, if that is matt recomme nded care.) 3: Applied short stretch wrap to L lower leg and foot only so that R leg can be examined by physician. Appropriate graduated compression palpable and adequate ankle ROM wtih wraps in place and no difficulty fitting into shoe. Skilled Intervention: Manual skills to improve joint mobility, ROM, and decrease pain. Utilized anatomy knowledge of the therapist, and assessment of patient's response to intervention. Billing Manual TherapyTreatment Minutes: 42 Skilled Treatment Time Minutes (timed and untimed codes): 42 Total Session Time (minutes): 42 Session Start Time : 900 Session Stop Time : 942 Grace Bonds PT documented in [facility] [place] History of Present illness Narrative* Grace Bonds PT - 08/07/2023 11:56 AM EST Episode Visit Count: 91 Therapist That Will Accept/Oversee The Plan Of Care: Grace Bonds Start of Care Date: 03/13/21 Onset Date: 02/20/21 (past several weeks) Plan of Care Certification Date: 07/28/23 Next Certification Due Date: 08/28/23 Patient Identified by Name and Date of : Yes REHABILITATION AND SPORTS THERAPY PHYSICAL THERAPY TREATMENT NOTE ASSESSMENT: Chema Koroma tolerated the session with fatigue and no issues. She demonstrated difficulty with LE volume and skin/soft tissue condition. The patient will continue to benefit from ongoing skilled physical therapy for reassessment by supervising therapist. PLAN FOR NEXT VISIT: POC update SUBJECTIVE: Pt reports the wraps felt comfortable, including on the feet. She still has L toe pain.She notes she has been using her cane or walker when ambulating in the home. She feels she is havign difficulty lifting her feet at times when walking. Functional Limitations: walking in the community Pain: Pain Pain Level: (not rated) Pain Location: Toe - Left Post Treatment Pain Post Treatment Pain Level: (No complaints of pain at end of session with bandage in place.) OBJECTIVE MEASURES WITH LEVEL OF FUNCTION: Lymphedema Color Comments:: one small raw area at R lateral distal lower leg, though decreased in size from last visit Pitting Edema Comments:: decreased B dorsal volume Fibrosis Comments:: decreased fibrosis distal ankles Dryness/Flaking of Skin Comments:: Dryness/flaking B distal lower legs and feet. Lower Extremity Circumferential Measurements R 1st toe (proximal phalanx): 9 R Metatarsal Phalangeal (MTP): 21 R Arch: 22.5 R 5 cm from floor: 26 cm R 10 cm from floor: 21 cm R 15 cm from floor: 30 cm R 20 cm from floor: 35 cm R 25 cm from floor: 38.5 cm R 30 cm from floor: 40.5 cm R 35 cm from floor: 43.5 cm R 40 cm from floor: 46.5 cm (knee) R 45 cm from floor: 50.5 cm (knee) R 50 cm from floor: 51 cm R 55 cm from floor: 55 cm L 1st toe (proximal phalanx): 8 L Metatarsal Phalangeal (MTP): 22 L Arch: 22 L 5 cm from floor: 26 cm L 10 cm from floor: 26 cm L 15 cm from floor: 29 cm L 20 cm from floor: 37.5 cm L 25 cm from floor: 44.5 cm L 30 cm from floor: 47.5 cm L 35 cm from floor: 49 cm L 40 cm from floor: 49.5 cm (knee) L 45 cm from floor: 55 cm L 50 cm from floor: 56 cm Affected Leg: Bilateral, Left Leg Larger Calculate Volume : Yes R Lower Extremity Volume: 6653 L Lower Extremity Volume: 6733 Difference in Volume: 80 Difference in % : 1.2 TREATMENT: Therapeutic Exercise: 1: standing high knee lifts at parallel bars 1 x 10 , 2 x 5 each leg 2: standing hip abduction 2 x 10 each leg 3: standign hip ext 2 x 5 each leg 4: Pt ambulated independently with supervision using front wheeled walker (per her request) 2 x 100ft with therapist supervision and focus on lifting knees and toes with each step. (avoiding shuffling gait pattern) Skilled Intervention: Patient was educated in proper exercise technique and purpose for exercises. Reviewed and educated patient on additions/changes for home exercise program. Skilled judgment was used in selection of appropriate interventions. Correct performance of therapeutic exercises was facilitated with verbal and visual cuing. Additional time necessary for objective measurements. Patient education as noted. Manual Therapy: 1: Removed short-stretch wraps from both lower legs. 2: MLD L LE sequence 3: Applied short stretch wraps to B lower legs and feet with appropriate graduated compression palpable and adequate ankle ROM wtih wraps in place. Skilled Intervention: Manual skills to improve joint mobility, ROM, and decrease pain. Utilized anatomy knowledge of the therapist, and assessment of patient's response to intervention. Billing KX Modifier : Therapist attests that services rendered are medically necessary. Therapeutic Exercise Treatment Minutes: 22 Manual TherapyTreatment Minutes: 58 Skilled Treatment Time Minutes (timed and untimed codes): 80 Total Session Time (minutes): 80 Session Start Time : 1155 Session Stop Time : 1315 Grace Bonds PT documented in this [facility] [place] History of Present illness Narrative* Grace Bonds PT - 08/02/2023 2:36 PM EST Episode Visit Count: 90 Therapist That Will Accept/Oversee The Plan Of Care: Grace Bonds Start of Care Date: 03/13/21 Onset Date: 02/20/21 (past several weeks) Plan of Care Certification Date: 07/28/23 Next Certification Due Date: 08/28/23 Patient Identified by Name and Date of : Yes REHABILITATION AND SPORTS THERAPY PHYSICAL THERAPY TREATMENT NOTE ASSESSMENT: Chema Koroma tolerated the session with fatigue. She demonstrated improvements in ambulating with quad cane instead of walker, increased LE exercises and ambulation distance. The patient will continue to benefit from ongoing skilled physical therapy to progress toward set goals. PLAN FOR NEXT VISIT: Asess response to different wrapping technique today. May assess volume measurements. Continue exercise, MLD and compression wrapping. SUBJECTIVE: Pt stating her feet are increasing in edema. She states she has not ordered a compression garment yet. Pt voices questions regarding handouts i gave her last time with garment info. Pain: Pain Pain Level: (not rated) Pain Location: Toe - Left Post Treatment Pain Post Treatment Pain Level: No Change OBJECTIVE MEASURES WITH LEVEL OF FUNCTION: Lymphedema Color Comments:: one small raw area at R lateral distal lower leg Pitting Edema Comments:: B dorsal humps increased volume from previous visit. Fibrosis Comments:: fibrosis at distal ankles B Gait Gait Observation: Pt ambulating independently with quad cane. Increased lateral trunk deviation anddecreased lifting of feet (starting to shuffle) by end of session. TREATMENT: Therapeutic Exercise: 1: SciFit seated stepper, seat 9 x 5 min 2: standing high knee lifts at parallel bars 1 x 10 , 2 x 5 each leg 3: standing hip abduction 2 x 10 each leg 4: Pt ambulated independently with supervision and using 1 quad cane. Skilled Intervention: Patient was educated in proper exercise technique and purpose for exercises. Reviewed and educated patient on additions/changes for home exercise program. Skilled judgment was used in selection of appropriate interventions. Correct performance of therapeutic exercises was facilitated with verbal and visual cuing. Patient education as noted. Manual Therapy: 1: MLD L LE sequence 2: Applied short stretch wraps to B lower legs and feet with appropriate graduated compression palpable and adequate ankle ROM wtih wraps in place. 3: Reviewed handouts with info on inelastic velcro compression garments with pt and her aid, Patrizia.Answered questions and explained purpose for recommendations and specific features. Skilled Intervention: Manual skills to improve joint mobility, ROM, and decrease pain. Utilized anatomy knowledge of the therapist, and assessment of patient's response to intervention. Manual techniques to facilitate lymphatic dynamics and improve condition of tissue. Manual techniques to facilitate lymphatic dynamics and improve condition of tissue. Billing KX Modifier : Therapist attests that services rendered are medically necessary. Therapeutic Exercise Treatment Minutes: 22 Manual TherapyTreatment Minutes: 55 Skilled Treatment Time Minutes (timed and untimed codes): 77 Total Session Time (minutes): 77 Session Start Time : 1433 Session Stop Time : 1550 Grace Bonds PT documented in this encounterSelect [facility] [place] Miscellaneous Notes* Telephone Encounter - Charla Benitez LPN - 07/30/2023 8:45 AM EST Patient is scheduled for today, 07/30/2023. Charla Benitez LPN * Telephone Encounter - Letty Arteaga RN - 07/25/2023 11:47 AM EST Called patient and informed her of below message. Patient states that the day before her x-ray she had tripped on a tile and fell. She is unsure of her availability for follow up [facility]. * Telephone Encounter - Radha Wood - 2023 10:55 PM EST Please call patient to inform her that her xrays shows nondisplaced fracture of the tip of left 3rdtoe. This could be the result of past trauma if she ever stubbed her toe. I would like to have her come in to see how her toe is doing. Other thought on this toe could be from infection of bone from prior draining toe. I would make follow-up to discuss. Radha Wood DPM documented in this encounterSelect [facility] [place]11-22-[facility] History of Present illness Narrative* Delma Stevens, RT(R) - 07/17/2023 3:20 PM EST Radiology Service Progress Note PATIENT NAME: Chema Koroma DATE OF SERVICE: July 17, 2023 TIME: 3:18 PM PATIENT IDENTITY VERIFICATION COMPLETED USING TWO (2) IDENTIFIERS: Name and Date of confirmedby patient verbally. FALL SCREENING: Has the patient had 2 falls in the last year or 1 fall with injury or currently using an Ambulatory Assistive Device (Walker, Cane, Wheelchair, Crutches, etc.)? Yes, Patient High Riskfor Falls What interventions were put in place to prevent falls during this visit? Instructed Patient to Callfor Help if Needed, Offered Assistance with Transfers/Clothing, and Increased Observations by Caregivers PATIENT GENDER DATA: Female. status: : No status: NO. PATIENT RELEVANT IMPLANT DATA REVIEWED: Yes RADIOLOGY DEPARTMENT: General X-ray: Exam(s) Completed: Lower Extremity X- Ray(s): Toes, Left 3rd PERIPHERAL IV DATA: Not applicable SIGNED BY: RT Barb(R) July 17, 2023 3:18 PM documented in this encounterSelect [facility] [place]11-14-2023 Miscellaneous Notes* Telephone Encounter - Letty Arteaga RN - 07/09/2023 9:07 AM EST Called patient and informed her of results. Patient agreeable, states that she has been taking antibiotics, toe is still painful, but she has not looked at it today since she can not get her socks back on by herself. States that she was unable to obtain XRays after last visit but will try to get them today. * Telephone Encounter - Radha Wood - 07/08/2023 10:13 PM EST Please call patient to inform her that her wound culture shows skin organisms. Continue with antibiotic. Radha Wood DPM documented in this encounterSelect [facility] [place]-[place]-[facility]23 History of Present illness Narrative* Radha Wood - 07/05/2023 4:09 PM EST @MTNAILS@ Subjective: Patient presents to clinic c/o painful toenails. They state that the nails are especially painful with shoe gear and pressure. Patient states that nails 1-5 b/l are painful. She has not had her nails cut in nearly 9 months and they are severely long. No other pedal complaints at this time. Patient states no change in medications or medical history since last visit. Objective: Patient presents to clinic ambulating in slippers Vasc: DP and PT pulses are faintly palpable bilateral. CFT is less than 5 seconds bilateral. Skin temperature is warm to cool proximal to distal bilateral. There is moderate edema or varicosities noted. Neuro: Protective sensation is intact to the foot and toes when tested with the 5.07 SWM bilateral.Vibratory sensation is absent at the hallux IPJ bilateral. The hallux is downgoing bilateral. Derm: Nails 1-5 b/l are painful, discolored-yellow, thick, crumbly, dystrophic and with subungal debris. Left third toenail lateral border is ingrowing with moderate drainage. Skin is of normal turgor, texture and hair growth is absent bilateral. There are no hyperkeratosis, ulcerations, scars, verruca or other lesions noted. Ortho: Muscle strength is 5/5 for all pedal groups tested. Ankle joint DF is decreased with the knee extended with no pain or crepitus noted. 1st MPJ ROM is decreased bilateral. Assessment: (B35.1) Onychomycosis (primary encounter diagnosis) (M79.675) Pain in toe of left foot (M79.674) Pain in toe of right foot (L60.0) Ingrowing toenail of left foot Plan: Patient was seen and evaluated. Nails 1-5 bilateral were debrided in length and thickness. I had long discussion with patient and family about the left 3rd toenail. There is ingrowing natureof the toenail with moderate drainage. I discussed removal vs slant back. They elected for slant back. If condition fails to improve, consider nail removal. Wound culture performed. Antibiotic prescribed. Due to the amount of drainage, I feel getting an xray is necessary to assure no underlying bone infection. Patient is to RTC in 3-4 months. Radha Wood DPM INO * Dora Alfredo RN - 07/05/2023 4:06 PM EST AMB ROOMING INTAKE FLOWSHEET DATA Pain Pain Level: 7 Pain Location: Foot-Left Description: Aching Patient presents with: Left Foot - Nail Check, Pain Right Foot - Nail Check Dora Alfredo RN documented in this encounterSelect [facility] [place]11-03-2023 History of Present illness Narrative* Grace Bonsd, PT - 06/28/2023 4:05 PM EDT Episode Visit Count: 86 Therapist That Will Accept/Oversee The Plan Of Care: Grace Bonds Start of Care Date: 03/13/21 Onset Date: 02/20/21 (past several weeks) Plan of Care Certification Date: 04/12/23 Next Certification Due Date: 06/12/23 Patient Identified by Name and Date of : Yes REHABILITATION AND SPORTS THERAPY PHYSICAL THERAPY PROGRESS REPORT PLAN OF CARE UPDATE: Assessment: Chema Koroma demonstrates difficulty with walking in the community and stair negotiation and improvements in rising from a chair, walking, walking in the house, and physical activities. She has progressed toward goals. Patient continues to present with impairments in edema management, gait, overall function, strength, and skin/soft tissue condition that interfere with . Current prognosis is Excellent due to: current objective clinical presentation, good overall health status, positive pastresponse to therapy multiple co- morbidities, chronic nature of impairments, limited support system. She will benefit from continued skilled therapy services to meet the updated goals for this plan of care as noted below. Goals for Episode of Care: created on 03/13/21 through 05/14/21 Goals updated on 06/28/2023. Patient / family knowledgeable re: all pertinent aspects of CDT (Met) Patient / family independent with donning / doffing compression garment and proper wearing schedule and care of garment (Not Met)-Pt does not have stockings yet. Patient / family independent with home exercise program (Met) Patient will decrease circumferential measurements by 0.5-13.0 cm in the following areas: B LE for decreased recurrence of infection, improved mobility, improved range of motion and allow appropriate fit in compressive garment. (Met) Pt to demonstrate reduction of lymphorrhea to allow for wearing of custom compression garments. (Met) Pt will perform supine <> sit transfer independently. (Partially Met)-inconsistent Pt will ambulate with decreased effort. (Met) 10/06/22: Pt will demonstrate reduction in L LE fibrosis (intensity and area). (Met) Patient Goals: To stop the draining and get the left leg smaller again. (Met) 01/04/23: Pt will obtain appropriate fitting compression stocking for R LE. (Not Met) 05/24/23: Pt will increase B LE strength to 4+ to 5/5 to improve ability to perform transfers and gait. (Not Met) Pt will demonstrate improved gait pattern to increase functional walking distance and improve safety/decreasedrisk of falls. (Met) Dx: Lower extremity edema Post-Acute Discharge Plan: From home. Lives alone with 3 cats. Reports Mostly Independent. States has a private caregiver Patrizia. Patient states she was staying with Patrizia for 2 weeks prior to admission due to concrete work being done near her home. Patient states she wants to return home at discharge. Ambulates with Quad Cane. Has Walker and Wheelchair. Shower Chair and Shower Grab Bars at home. Planned Interventions, Frequency, and Duration: 1x/week, 4 weeks Total Number of Visits Planned: 4 Patient to be seen for Therapeutic exercise (86351), Neuromuscular re-education (08533), Self-correction management (73498), Manual therapy (91403), Gait Training (33660), Patient/Family/Caregiver Education PLAN FOR NEXT VISIT: Progress core and LE strengthening, balance and gait. Continue MLD and short stretch wrapping until pt receieves compression garments. SUBJECTIVE: Pt reports she ordered more compression wraps. She states she is walking more with her cane around the house instead of the walker. Still requires assistance to get up stairs to enter herhome. Pain: Pain Pain Level: 0 Post Treatment Pain Post Treatment Pain Level: 0 PROMIS Scales T-scores: mean of general population = 50. 5 points is clinically meaningfully difference Percentiles provide an indication of how the patient's score ranks in relation to the general population. Higher percentile rankings indicate better function/quality of life. 50th percentile is the average of the general population and indicates half of respondents had a worse score. OBJECTIVE MEASURES WITH LEVEL OF FUNCTION: Lymphedema Fibrosis Comments:: No fibrosis noted today. Dryness/Flaking of Skin Comments:: Dryness/flaking B distal lower legs and feet. Lymphorrhea Comments:: No signs of drainage nor any dried drainage underneath wraps today. Lower Extremity Circumferential Measurements R 1st toe (proximal phalanx): 9 R Metatarsal Phalangeal (MTP): 22 R Arch: 24 R 5 cm from floor: 25.5 cm R 10 cm from floor: 21 cm R 15 cm from floor: 26.5 cm R 20 cm from floor: 30.5 cm R 25 cm from floor: 33 cm R 30 cm from floor: 35.5 cm R 35 cm from floor: 42.5 cm R 40 cm from floor: 48.5 cm (knee) R 45 cm from floor: 48.5 cm (knee) R 50 cm from floor: 49 cm R 55 cm from floor: 53 cm L 1st toe (proximal phalanx): 8.5 L Metatarsal Phalangeal (MTP): 22 L Arch: 23.5 L 5 cm from floor: 24.5 cm L 10 cm from floor: 24 cm L 15 cm from floor: 31 cm L 20 cm from floor: 35 cm L 25 cm from floor: 39 cm L 30 cm from floor: 41.5 cm L 35 cm from floor: 43 cm L 40 cm from floor: 48 cm (knee) L 45 cm from floor: 52 cm L 50 cm from floor: 52.5 cm Affected Leg: Bilateral, Left Leg Larger Calculate Volume : Yes R Lower Extremity Volume: 5985 L Lower Extremity Volume: 5780 Difference in Volume: -205 Difference in % : -3.43 LE Strength R Hip Flexion (L2): 4-/5 R Knee Extension (L3): 4/5 R Knee Flexion: 4+/5 R Ankle Dorsiflexion (L4): 4+/5 R Ankle Plantar Flexion: 4+/5 Gait Gait Observation: Pt ambulating to and from and in the department today with front wheeled walker independently. TREATMENT: Therapeutic Exercise: 1: SciFit seated stepper, seat 9 x 5 min 2: Ambulation with front wheeled walker independently 2x 80ft and 2 x 40ft with pt demonstrating improved symmetrical weight bearing, heel strike, push off, and matt. 3: sit to stand x 10 from chair with UE assist. Skilled Intervention: Patient was educated in proper exercise technique and purpose for exercises. Reviewed and educated patient on additions/changes for home exercise program. Skilled judgment was used in selection of appropriate interventions. Correct performance of therapeutic exercises was facilitated with verbal and visual cuing. Additional time necessary for objective measurements and reassessment due to plan of care update. Patient education as noted. Manual Therapy: 1: Removed short-stretch wraps from both lower legs. 2: MLD L LE sequence 3: Applied short stretch wraps to B lower legs with appropriate graduated compression palpable and adequate ankle ROM wtih wraps in place. Skilled Intervention: Manual skills to improve joint mobility, ROM, and decrease pain. Utilized anatomy knowledge of the therapist, and assessment of patient's response to intervention. Manual techniques to facilitate lymphatic dynamics and improve condition of tissue. Billing KX Modifier : Therapist attests that services rendered are medically necessary. Therapeutic Exercise Treatment Minutes: 15 Manual TherapyTreatment Minutes: 67 Skilled Treatment Time Minutes (timed and untimed codes): 82 Total Session Time (minutes): 82 Session Start Time : 1429 Session Stop Time : 1551 Grace Bonds PT documented in this encounterSelect [facility] [place]27[facility] History of Present illness Narrative* Grace Bonds PT - 06/21/2023 4:25 PM EDT Episode Visit Count: 85 Therapist That Will Accept/Oversee The Plan Of Care: Grace Bonds Start of Care Date: 03/13/21 Onset Date: 02/20/21 (past several weeks) Plan of Care Certification Date: 04/12/23 Next Certification Due Date: 06/12/23 Patient Identified by Name and Date of : Yes REHABILITATION AND SPORTS THERAPY PHYSICAL THERAPY TREATMENT NOTE ASSESSMENT: Chema Koroma tolerated the session with no issues. She demonstrated improvements in mobility and lower leg skin and soft tissue condition. The patient will continue to benefit from ongoing skilled physical therapy to progress toward set goals. PLAN FOR NEXT VISIT: POC update SUBJECTIVE: Pt reports increased fluid in L lower leg. She reports she is sitting iwht both legs elevated most of the day. Pain: Pain Pain Location: Calf - Left Description: Pressure Post Treatment Pain Post Treatment Pain Level: 0 OBJECTIVE MEASURES WITH LEVEL OF FUNCTION: TREATMENT: Therapeutic Exercise: 1: SciFit seated stepper, seat 9 x 5 min 2: Ambulation with cane and supervision x 80ft and focus on symmetrical weight bearing each leg, heel strike and push off. 3: Encouraged pt to continue to ambulate within her home throughout the day, elevate legs when sitting, and perform matt decongestive exercises. Skilled Intervention: Patient was educated in proper exercise technique and purpose for exercises. Reviewed and educated patient on additions/changes for home exercise program. Skilled judgment was used in selection of appropriate interventions. Correct performance of therapeutic exercises was facilitated with verbal and visual cuing. Patient education as noted. Manual Therapy: 1: Removed short-stretch wraps from both lower legs. 2: MLD L LE sequence 3: Applied short stretch wraps to B lower legs with appropriate graduated compression palpable and adequate ankle ROM wtih wraps in place. Skilled Intervention: Manual skills to improve joint mobility, ROM, and decrease pain. Utilized anatomy knowledge of the therapist, and assessment of patient's response to intervention. Manual techniques to facilitate lymphatic dynamics and improve condition of tissue. Billing KX Modifier : Therapist attests that services rendered are medically necessary. Therapeutic Exercise Treatment Minutes: 10 Manual TherapyTreatment Minutes: 60 Skilled Treatment Time Minutes (timed and untimed codes): 70 Total Session Time (minutes): 70 Session Start Time : 1510 Session Stop Time : 1620 Grace Bonds PT documented in this encounterSelect [facility] [place] Miscellaneous Notes* Telephone Encounter - Nissa Casper - 06/17/2023 11:33 AM EDT Pt's loved one called in stating patient needs to be seen sooner due to her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 patient's lab results. Labs: Laboratory Results - last 24 hr 05/24/23 08:31 WBC 7.5 RBC 4.14 L Hgb 11.5 L Hct 37.4 MCV 90.3 MCH 27.8 MCHC 30.7 L RDW Std Deviation 53.1 H RDW Coeff of [place] 15.9 H Plt Count 216 MPV 9.8 Immature Gran % (Auto) 0.400 Neut % (Auto) 85.4 H Lymph % (Auto) 4.8 L [place] % (Auto) 6.4 Eos % (Auto) 2.5 Baso % (Auto) 0.5 Absolute Neuts (auto) 6.4 Absolute Lymphs (auto) 0.36 L Nucleated RBC % 0 Differential Comment COMMENT Sodium 138 Potassium 4.6 Chloride 108 H Carbon Dioxide 26.0 Anion Gap 4 L BUN 21 H Creatinine 1.37 H Estim Creat Clear Calc 39.86 Est GFR (MDRD) Af Amer 47 L Est GFR (MDRD) Non-Af 39 L BUN/Creatinine Ratio 15.3 Glucose 100 Calcium 9.0 Discharge Plan Triage Chief Complaint: Edema ED Provider: Sage Augustin Dx/Rx/DC Orders Clinical Impression: Cellulitis of left leg, Lymphedema, Chronic renal insufficiency Instructions: ED Cellulitis, ED Peripheral Edema, Unilateral Prescriptions: New cephalexin [cephalexin] 500 mg capsule 500 mg PO TID Qty: 30 0RF No Action pantoprazole [Protonix] 40 mg tablet,delayed release (DR/EC) 40 mg PO Q12H potassium chloride 20 mEq tablet,ER particles/crystals 20 meq PO DAILY Qty: 30 Patient Comments: TAKE 1 TABLET BY MOUTH DAILY atorvastatin 40 mg tablet 40 mg PO QHS 90 Days Qty: 90 3RF furosemide 40 mg tablet 40 mg PO DAILY PRN (Reason: swelling) cholecalciferol (vitamin D3) 1,000 UNIT capsule 1,000 unit PO DAILY Farxiga 10 mg tablet 10 mg PO DAILY triamcinolone acetonide 0.1 % cream 1 applic TOPICAL BID docusate sodium [Colace] 100 mg capsule 100 mg PO DAILY PRN (Reason: constipation) acetaminophen [Acetaminophen Extra Strength] 500 mg tablet 500 mg PO Q6H PRN (Reason: pain) alum-mag hydroxide-simeth [Mag-Al Plus Extra Strength] 400-400-40 mg/5 mL Suspension 15 ml PO Q6H PRN PRN (Reason: Indigestion) Qty: 0 0RF menthol-zinc oxide [Calmoseptine] 0.44-20.6 % Ointment 1 applic topical BID Qty: 0 0RF Protocol: *Topical Application Instructions APPLICATION INSTRUCTIONS: apply to buttocks nitroglycerin 0.4 mg Tablet, Sublingual 0.4 mg sublingual Q5M PRN (Reason: Cardiac/Chest Pain) Qty: 0 0RF carvedilol 6.25 mg tablet 6.25 mg PO BID Qty: 180 3RF Rx Instructions: must administer with a meal/food valsartan [Diovan] 80 mg tablet 80 mg PO DAILY Qty: 30 11RF Primary Care Provider: Jason Benitez Referrals: Jason Benitez MD [Primary Care Provider] - As soon as possible (call for appt to be seen [place] after the weekend) Disposition Disposition: Home, Self Care What to do if you have Problems For any increased pain, shortness of breath, bleeding, nausea or vomiting, chestpain, or any unexpected problems, contact your Primary Care Provider. Call [facility] ([phone]) or report to the closest Emergency Room. Call 911 if necessary. 05/24/23927 <Electronically signed by Sage Augustin MD> Cosigner Signature (if applicable): CC: Dr. Jason Benitez MD ~ Signed [facility] Work Phone: [phone] 489-358409-22-2023 History of Present illness Narrative* Grace Bonds, PT - 05/17/2023 3:44 PM EDT lEpisode Visit Count: 80 Therapist That Will Accept/Oversee The Plan Of Care: Grace Bonds Start of Care Date: 03/13/21 Onset Date: 02/20/21 (past several weeks) Plan of Care Certification Date: 04/12/23 Next Certification Due Date: 06/12/23 Patient Identified by Name and Date of : Yes REHABILITATION AND SPORTS THERAPY PHYSICAL THERAPY PROGRESS REPORT PLAN OF CARE UPDATE: Assessment: Chema Koroma demonstrates improvements in transfers and walking. She has progressed toward goals. Patient continues to present with impairments in edema management, soft tissue healing, and skin/soft tissue condition that interfere with walking in the community . Current prognosis is Good due to: current objective clinical presentation, positive past response to therapy, good support system/coping skills, Prognosis may be limited due to multiple co- morbidities, chronic nature of impairments, limited support system . Pt has made good progress in volume reduction and skin/soft tissue condition, though still has 2 areas on L lower leg that are open. She will benefit from consistent attendance of treatments twice a week and obtaining velcro compression garment to allow for independencein more effective edema self-management. She will benefit from continued skilled therapy services to meet the updated goals for this plan of care as noted below. Goals for Episode of Care: created on 03/13/21 through 05/14/21 Goals updated on 05/17/2023. Patient / family knowledgeable re: all pertinent aspects of CDT (Met) Patient / family independent with donning / doffing compression garment and proper wearing schedule and care of garment (Not Met)-Pt has obtained compression stocking for R LE but now has an open area so not currently wearing. Patient / family independent with home exercise program (Met) Patient will decrease circumferential measurements by 0.5-13.0 cm in the following areas: B LE for decreased recurrence of infection, improved mobility, improved range of motion and allow appropriate fit in compressive garment. (Partially Met)-improving Pt to demonstrate reduction of lymphorrhea to allow for wearing of custom compression garments. (Met) Pt will perform supine <> sit transfer independently. (Partially Met) Pt will ambulate with decreased effort. (Met) 10/06/22: Pt will demonstrate reduction in L LE fibrosis (intensity and area). (Met) Patient Goals: To stop the draining and get the left leg smaller again. (Partially Met) 01/04/23: Pt will obtain appropriate fitting compression stocking for R LE. (Not Met) Dx: Lower extremity edema Post-Acute Discharge Plan: From home. Lives alone with 3 cats. Reports Mostly Independent. States has a private caregiver Patrizia. Patient states she was staying with Patrizia for 2 weeks prior to admission due to concrete work being done near her home. Patient states she wants to return home at discharge. Ambulates with Quad Cane. Has Walker and Wheelchair. Shower Chair and Shower Grab Bars at home. Planned Interventions, Frequency, and Duration: 2x/week, 4 weeks Total Number of Visits Planned: 8 Patient to be seen for Therapeutic exercise (60702), Manual therapy (57910), Self-correction management (06555), Patient/Family/Caregiver Education PLAN FOR NEXT VISIT: Continue MLD and compressio wraps. Facilitate pt obtaining compression garments. Volume measurements B LEs. SUBJECTIVE: Pt states she has been elevating her legs more when sitting at home. Sh denies any weeping or drainage from either leg. Functional Limitations: walking in the community Pain: Pain Pain Level: 0 Post Treatment Pain Post Treatment Pain Level: 0 PROMIS Scales T-scores: mean of general population = 50. 5 points is clinically meaningfully difference Percentiles provide an indication of how the patient's score ranks in relation to the general population. Higher percentile rankings indicate better function/quality of life. 50th percentile is the average of the general population and indicates half of respondents had a worse score. OBJECTIVE MEASURES WITH LEVEL OF FUNCTION: Lymphedema Comment: Pt presents with wraps in place B lower legs. Fibrosis Comments:: softening of tissue throughout B LEs. Very mobile, fluid feel to the edema except at dorsum of feet. Gait Gait Observation: Pt todept in w/c, but was able to transfer w/c<>plinth independently without assistive device. Pt demostrated improved mobility and transfers (supine<>sit with min A andsit<>stand independently). TREATMENT: Manual Therapy: 1: Removed short stretch bandages B lower legs. 2: Replaced 2x2 non-stick pads with generic Neosporin over both wounds as pt has been instructed by physician. 3: MLD B LE sequence, modified location of hand placement to avoid blister and open areas on R lower leg. 4: Applied short stretch compression wrapping to B lower legs. Pt refused wrapping of the feet stating she can't walk or fit into her shoes. Skilled Intervention: Manual skills to improve joint mobility, ROM, and decrease pain. Utilized anatomy knowledge of the therapist, and assessment of patient's response to intervention. Self-Longterm Management: 1: Displayed sample of solaris Ready Wrap for lower leg and fott/ankle piece for pt to see and explained donning procedure. Pt was willing to pursue as this will improve her ability to be independentin skin care of her legs and compression management. 2: Provided contact information and webistes to look for and research options for purchase. Skilled Intervention: Skilled judgment in the selection of proper modification for activity of daily living/home management based on clinical presentation, deficits, and needs. Educated the patient regarding recommendations and provided written instruction to facilitate compliance. Reviewed patient specific diagnosis in relation to activities of daily living/home management. Billing KX Modifier : Therapist attests that services rendered are medically necessary. Manual TherapyTreatment Minutes: 56 Self-Care/Home Management Treatment Minutes: 7 Total Session Time (minutes): 63 Session Start Time : 1547 Session Stop Time : 1650 Grace Bonds PT documented [facility] [place] History of Present illness Narrative* Grace Bonds PT - 05/10/2023 5:01 PM EDT Episode Visit Count: 79 Therapist That Will Accept/Oversee The Plan Of Care: Grace Bonds Start of Care Date: 03/13/21 Onset Date: 02/20/21 (past several weeks) Plan of Care Certification Date: 04/12/23 Next Certification Due Date: 06/12/23 Patient Identified by Name and Date of : Yes REHABILITATION AND SPORTS THERAPY PHYSICAL THERAPY TREATMENT NOTE ASSESSMENT: Chema Koroma tolerated the session with no issues. She demonstrated improvements in good maintenance of lower leg reduction from last session. The patient will continue to benefit from ongoing skilled physical therapy to progress toward set goals. PLAN FOR NEXT VISIT: Continue exercise, MLD, short-stretch bandaging. Facilitate pt obtaining velcro compression garments for lower legs. SUBJECTIVE: Pt reporting she got new shoes that are not stretched out yet so feel tight. some rubbing on R dorsum of foot. Pain: Pain Pain Level: 0 Post Treatment Pain Post Treatment Pain Level: 0 OBJECTIVE MEASURES WITH LEVEL OF FUNCTION: Lymphedema Comment: Pt presents with wraps in place B lower legs. Tennis shoes have no shoe strings and tongueof shoe is pulled back with dorsum of foot tissue filling over top of shoes. Pitting Edema Comments:: R dorsum of foot Lymphorrhea Comments:: No drainage observed today. Dried drainage on both pads (2x2) over ruptured blisters distal R lower leg. TREATMENT: Manual Therapy: 1: Removed short stretch bandages B lower legs. 2: Replaced 2x2 non-stick pads with generic Neosporin over both wounds as pt has been instructed by physician. 3: MLD B LE sequence, modified location of hand placement to avoid blister and open areas on R lower leg. 4: Applied short stretch compression wrapping to B lower legs. Pt refused wrapping of the feet stating she can't walk or fit into her shoes. Skilled Intervention: Manual skills to improve joint mobility, ROM, and decrease pain. Utilized anatomy knowledge of the therapist, and assessment of patient's response to intervention. Self-Longterm Management: 1: Reinforced importance of skin care, elevating legs throughout the day, and consistency with the Decongestive Exercises. 2: Recommended non-elastic velcro compression for B lower legs/feet that pt can manage independently compared to compresion stockings. Pt was not opposed to this and asked questions. Will provide resources to obtain and further discussion with pt's family/caregivers next visit. Skilled Intervention: Skilled judgment in the selection of proper modification for activity of daily living/home management based on clinical presentation, deficits, and needs. Educated the patient regarding recommendations. Reviewed patient specific diagnosis in relation to activities of daily living/home management. Billing KX Modifier : Therapist attests that services rendered are medically necessary. Manual TherapyTreatment Minutes: 47 Self-Care/Home Management Treatment Minutes: 15 Skilled Treatment Time Minutes (timed and untimed codes): 62 Total Session Time (minutes): 62 Session Start Time : 1543 Session Stop Time : 1645 Grace Bonds PT documented in this encounter[facility] [place] History of Present illness Narrative* Grace Bonds PT - 05/03/2023 1:07 PM EDT Episode Visit Count: 78 Therapist That Will Accept/Oversee The Plan Of Care: Grace Bonds Start of Care Date: 03/13/21 Onset Date: 02/20/21 (past several weeks) Plan of Care Certification Date: 04/12/23 Next Certification Due Date: 06/12/23 Patient Identified by Name and Date of : Yes REHABILITATION AND SPORTS THERAPY PHYSICAL THERAPY TREATMENT NOTE ASSESSMENT: Chema Koroma tolerated the session with no issues. She demonstrated difficulty with weeping/lymphorrhea resumed in R LE now with blisters with 2/3 rupturing. The patient will continue to benefit from ongoing skilled physical therapy to progress toward set goals. PLAN FOR NEXT VISIT: Assess skin and sof ttissue condition. MLD and short stretch bandaging as able depending on skin condition and weeping. Discuss and encourage pt to pursue purchasing inelastic velcro style compression wraps for independent management of LE edema. SUBJECTIVE: Pt states her right leg started weeping again since she was last here. She was at the doctor's office this morning prior to this appt. and presents with a paper stating, Please supply and apply bactroban adn pt states they wanted it applied to her leg before it is wrapped. Pt states she was unable to find the bag with all of her bandaging supplies in it, so she only has a few wraps with her today. Therapist spent time on phone to contact physician (Dr. Norton) to clarify his instructions for pt. Spoke with [facility] on-call nurse who stated she would inquire with Dr. Norton and return message. Therapist called again at 12:03 and got recording that [facility] office is closed from 12;00-1:30pm. Instructed pt and her nephew to contact doctor's office later today after 1:30pm. Pain: Pain Pain Level: 0 Post Treatment Pain Post Treatment Pain Level: No Change OBJECTIVE MEASURES WITH LEVEL OF FUNCTION: Lymphedema Comment: Gauze wrap over 2- 2x2 pads that were covering open areas and a blister on distal anteriorR lower leg. Lymphorrhea Comments:: No weeping/lymphorrhea observed today. 2 round areas about <2x2 of openwound (red,shiny tissue) and one clear blister about 1/2x2 horizontally at distal anterior R lower leg. Proximal lower leg and dorsum of feet a little more edematous than last week. TREATMENT: Therapeutic Exercise: 1: Performed with pt adn corrected form as needed LE Decongestive Exercises. Skilled Intervention: Patient was educated in proper exercise technique and purpose for exercises. Reviewed and educated patient on additions/changes for home exercise program. Skilled judgment was provided in selection of appropriate interventions. Provided written instruction for home exercise program to facilitate proper performance and compliance. Correct performance of therapeutic exercises was facilitated with verbal and visual cuing. Patient education as noted. Manual Therapy: 1: Removed guaze wrap. Pt's nephew had gone to drug store and purchased over the counter bactroban (generic Neosporin) and applied to R LE over open areas prior to R LE short-stretch bandages were applied. 2: MLD B LE sequence, modified location of hand placement to avoid blister and open areas on R lower leg. 3: Applied new stockinette, new padding, and (Comprilan) short-stretch bandages as pt had available(3 wraps) to B foot to knee. 4: Again, reviewed and strongly instructed pt to perform the decongestive exercises twice a day, dofrequent short walk breaks inside her house, and when she is sitting keep her legs elevated above her waist/chest. Skilled Intervention: Manual skills to improve joint mobility, ROM, and decrease pain. Utilized anatomy knowledge of the therapist, and assessment of patient's response to intervention. Manual techniques to facilitate lymphatic dynamics and improve condition of tissue. Billing KX Modifier : Therapist attests that services rendered are medically necessary. Therapeutic Exercise Treatment Minutes: 10 Manual TherapyTreatment Minutes: 50 Skilled Treatment Time Minutes (timed and untimed codes): 60 Total Session Time (minutes): 92 Session Start Time : 1130 Session Stop Time : 1302 Grace Bonds PT documented in this encounter[facility] [place] History of Present illness Narrative* Grace Bonds PT - 04/24/2023 3:48 PM EDT Episode Visit Count: 77 Therapist That Will Accept/Oversee The Plan Of Care: Grace Bonds Start of Care Date: 03/13/21 Onset Date: 02/20/21 (past several weeks) Plan of Care Certification Date: 04/12/23 Next Certification Due Date: 06/12/23 Patient Identified by Name and Date of : Yes REHABILITATION AND SPORTS THERAPY PHYSICAL THERAPY TREATMENT NOTE ASSESSMENT: Chema Koroma tolerated the session with no issues. She demonstrated improvements in significant reduction in LE volume, improved skin and soft tissue condition, and function. The patient will continue to benefit from ongoing skilled physical therapy to progress toward set goals. PLAN FOR NEXT VISIT: Assess pt maintenance of reduced volume and improved skin condition. May continue MLD and short-stretch wrapping if needed. Facilitate pt obtaining compression stockings to allow for effective self-management (discharge planning). SUBJECTIVE: Pt has been keeping her legs elevated as she was [facility]. She states she left the [facility] late last night and is getting settled back at her home now. Pain: Pain Pain Level: 0 Post Treatment Pain Post Treatment Pain Level: No Change OBJECTIVE MEASURES WITH LEVEL OF FUNCTION: Lymphedema Comment: Rafaele wraps (3wide) on mid lower legs with elastric wraps overtop. Multiple indentations from unevenness of wrap and shelf of edema just below the knee at top of bandage. Pitting Edema Comments:: pitting (1+) B dorsum of feet, through lower legs with some firmness at L proximal lower leg just below knee. Dryness/Flaking of Skin Comments:: Thin dry skin flaking at dorsum of R foot, mild dryness L lower leg Lymphorrhea Comments:: No weeping or lymphorrhea. Lower Extremity Circumferential Measurements R 1st toe (proximal phalanx): 9.5 R Metatarsal Phalangeal (MTP): 23 R Arch: 25 R 5 cm from floor: 23.5 cm R 10 cm from floor: 21.5 cm R 15 cm from floor: 26.5 cm R 20 cm from floor: 32 cm R 25 cm from floor: 34.5 cm R 30 cm from floor: 37.5 cm R 35 cm from floor: 44.5 cm R 40 cm from floor: 47 cm (knee) R 45 cm from floor: 48.5 cm R 50 cm from floor: 50 cm L 1st toe (proximal phalanx): 9 L Metatarsal Phalangeal (MTP): 24 L Arch: 24 L 5 cm from floor: 28 cm L 10 cm from floor: 24.5 cm L 15 cm from floor: 30 cm L 20 cm from floor: 33 cm L 25 cm from floor: 38 cm L 30 cm from floor: 48 cm L 35 cm from floor: 47 cm L 40 cm from floor: 53 cm (knee) L 45 cm from floor: 55 cm L 50 cm from floor: 57 cm Affected Leg: Bilateral, Left Leg Larger Calculate Volume : Yes R Lower Extremity Volume: 5108 L Lower Extremity Volume: 6513 Difference in Volume: 1405 Difference in % : 27.51 Gait Gait Observation: Pt todept in w/c, but was able to transfer w/c<>plinth independently without assistive device. Pt demostrated improved mobility and transfers (supine<>sit with min A andsit<>stand independently). TREATMENT: Manual Therapy: 1: Removed previous elastic bandages and underlying guaze wraps that were placed on at [facility]. 2: MLD B LE sequence. 3: Applied new stockinette, padding, and (Comprilan) short-stretch compression wraps to B foot to knee. 4: Strongly encouraged pt to decrease time sitting in chair and take short walks within her home throughout the day. Instructed pt to always elevate her legs when seated in her recliner. Skilled Intervention: Manual skills to improve joint mobility, ROM, and decrease pain. Utilized anatomy knowledge of the therapist, and assessment of patient's response to intervention. Self-Longterm Management: 1: Strongly encouraged pt to decrease time sitting in chair and take short walks within her home throughout the day. Instructed pt to always elevate her legs when seated in her recliner. Pt's aid, Patrizia, states that the pt has a new lift chair to use when it is delivered to her home. Pt was encouraged to be diligent with this so that she can maintain the improvements in volume to promote improvedfunction, mobility and decreased risk of infection recurrance. Skilled Intervention: Skilled judgment in the selection of proper modification for activity of daily living/home management based on clinical presentation, deficits, and needs. Educated the patient regarding recommendations. Reviewed patient specific diagnosis in relation to activities of daily living/home management. Billing KX Modifier : Therapist attests that services rendered are medically necessary. Manual TherapyTreatment Minutes: 82 Total Treatment Time Minutes (timed/untimed): 82 Session Start Time : 334 Session Stop Time : 1656 Grace Bonds PT documented in this encounter[facility] [place] Discharge summary Author Armand Bob [facility] April 19, 2023 1:28pm Note Date/Time April 19, 2023 1: 22pm [facility] Medical Records Department [address] [place] [address] Discharge Summary 04/19/23 1320 MR#: [id number] Acct: [id number] Name: CHEMA KOROMA Rep #:[id number] : 1940 82 From: Armand Bob MD PCP: Dr. Jason Benitez MD Status:ADM DEQUAN Location: [place] [address] Providers Date of Admission: 04/15/23 Date of Discharge: 04/19/23 Primary Care Physician: Dr. Jason Benitez MD Consultations 04/15/23 16:08 Consult: Onc/Wound/peanut farmer Routine Comment: Reason for Consult:: B/L leg lyphedema Reason For Visit: FAILURE TO THRIVE Diagnosis Discharge Diagnosis (1) Adult failure to thrive: Status: Acute Code(s): R62.7 - Adult failure to thrive (2) Falls: Status: Acute Code(s): W19.XXXA - Unspecified fall, initial encounter Qualifiers: Encounter type: initial encounter Qualified Code(s): W19.XXXA - Unspecified fall, initial encounter Plan Patient is an 82-year-old lady presenting with progressive generalized weakness for several month as well as extremity swelling and dizziness 1. Bilateral lower extremity -Bilateral venous duplex ordered to rule out DVT found to have elevated CRP start on Ceftin for possible cellulitis ? [phone] remains afebrile 2. Physical deconditioning - Requested for PT OT eval and social media sr strategy manager to assist with discharge planning ? 04/17/2023 awaiting placement in a retirement facility ? 04/18/2020 did complain of significant sacral pain imaging studies was negativefor fracture 3. Lymphedema involving both lower extremities ? Wound care nurse consulted 4. Hypertension - Blood pressure controlled, home medications continued with dose adjustment as needed 5. Nonischemic cardiomyopathy ? Echo from October 23, 2021 demonstrated EF of 50% 6. Chronic kidney disease stage IIIb ? Kidney function at baseline 7. Coronary artery disease ? Currently stable 8. Class II obesity with BMI of 36 Complicating care weight loss advised 9. DVT prophylaxis SC Lovenox Time spent in the patient's overall evaluation,decision-making process, review of diagnostic data, adjustment of management, discussion with other providers, nursing nursing and ancillary staff involved in patient's care documentation, 35minutes minutes Medications at Discharge Home Medications cholecalciferol (vitamin D3) 25 mcg (1,000 unit) capsule 1,000 unit PO DAILY supplement 08/12/17 pantoprazole 40 mg tablet,delayed release (Protonix) 40 mg PO Q12H reflux 07/01/18 potassium chloride 20 mEq tablet,extended release(part/cryst) 20 meq PO DAILY supplement #30 tabs 04/28/21 atorvastatin 40 mg tablet 40 mg PO QHS CHOLESTEROL 90 days #90 tabs 02/28/22 furosemide 40 mg tablet 40 mg PO DAILY PRN swelling 05/16/22 dapagliflozin propanediol 10 mg tablet (Farxiga) 10 mg PO DAILY DIABETES 03/17/23 triamcinolone acetonide 0.1 % topical cream 1 applic topical BID REDNESS 03/17/23 carvedilol 6.25 mg tablet 6.25 mg PO BID HTN #180 tabs 04/02/23 valsartan 80 mg tablet (Diovan) 80 mg PO DAILY #30 tabs 04/12/23 acetaminophen 500 mg tablet (Acetaminophen Extra Strength) 500 mg PO Q6H PRN pain 04/15/23 docusate sodium 100 mg capsule (Colace) 100 mg PO DAILY PRN constipation 04/15/23 aluminum-mag hydroxide-simethicone 400 mg-400 mg-40 mg/5 mL oral susp (Mag-Al Plus Extra Strength) 15 ml PO Q6H PRN PRN Indigestion #0 mL 04/19/23 menthol 0.44 %-zinc oxide 20.6 % topical ointment (Calmoseptine) 1 applic topical BID #0 grams 04/19/23 nitroglycerin 0.4 mg sublingual tablet 0.4 mg sublingual Q5M PRN Cardiac/Chest Pain #0 tabs 04/19/23 Hospital Course Summary of Care Provided Minutes Spent on Discharge: 35 Physical Exam Narrative GENERAL: cooperative HEENT: Atraumatic; normocephalic EYES; Anicteric, Normal Conjunctiva NECK; supple, normal thyroid, RESPIRATORY: Diminished to auscultation CARDIOVASCULAR: Regular S1 S2, GI: soft, normoactive bowel sounds, : No Renal angle tenderness; EXTREMITIES: Edema and erythema MUSCULOSKELETAL: no muscle wasting NEURO: Awake; no lateralizing signs. SKIN: No Rash PSYCH; Flat affect Weight / BMI Weight Weight: 80.2 kg Body Mass Index (BMI) 35.6 ABG / Lab / Microbiology Data 04/16/23 06:10 04/16/23 06:10 D/C Instructions Discharge Diet: No restrictions Discharge Activity: Return to Normal Activity Call your doctor if you observe: Fever of 101 or Higher, Shortness of breath, Fainting spells and Chest pain Meaningful Use Info Meaningful Use Diagnoses (Choose all that apply): None applicable Discharge Plan Admission Admit Date/Time: 04/15/23 15:39 Attending Provider: Armand Bob Primary Care Provider: Jason Benitez Consulting Providers: Mariusz Waters Discharge Orders/Prescriptions Prescriptions: New alum-mag hydroxide-simeth [Mag-Al Plus Extra Strength] 400-400-40 mg/5 mL Suspension 15 ml PO Q6H PRN PRN (Reason: Indigestion) Qty: 0 0RF menthol-zinc oxide [Calmoseptine] 0.44-20.6 % Ointment 1 applic topical BID Qty: 0 0RF Protocol: *Topical Application Instructions APPLICATION INSTRUCTIONS: apply to buttocks nitroglycerin 0.4 mg Tablet, Sublingual 0.4 mg sublingual Q5M PRN (Reason: Cardiac/Chest Pain) Qty: 0 0RF Continued pantoprazole [Protonix] 40 mg tablet,delayed release (DR/EC) 40 mg PO Q12H potassium chloride 20 mEq tablet,ER particles/crystals 20 meq PO DAILY Qty: 30 Patient Comments: TAKE 1 TABLET BY MOUTH DAILY atorvastatin 40 mg tablet 40 mg PO QHS 90 Days Qty: 90 3RF furosemide 40 mg tablet 40 mg PO DAILY PRN (Reason: swelling) cholecalciferol (vitamin D3) 1,000 UNIT capsule 1,000 unit PO DAILY Farxiga 10 mg tablet 10 mg PO DAILY triamcinolone acetonide 0.1 % cream 1 applic TOPICAL BID docusate sodium [Colace] 100 mg capsule 100 mg PO DAILY PRN (Reason: constipation) acetaminophen [Acetaminophen Extra Strength] 500 mg tablet 500 mg PO Q6H PRN (Reason: pain) carvedilol 6.25 mg tablet 6.25 mg PO BID Qty: 180 3RF Rx Instructions: must administer with a meal/food valsartan [Diovan] 80 mg tablet 80 mg PO DAILY Qty: 30 11RF Discontinued tramadol 50 mg tablet 25 - 50 mg PO Q8H PRN (Reason: pain) Patient Comments: TAKE ONE-HALF TO 1 (ONE) Tablet every EIGHT hours as needed for pain in leg] cephalexin 500 mg capsule 500 mg PO .COMPLEX Patient Comments: has 20 more capsules left in pill bottle Rx Instructions: 500 mg orally qid X10 days; Referrals / Follow Up: Jason Benitez MD [Primary Care Provider] - Disposition Disposition (needs filled in before D/C Order can be placed): Detention Facility Charges/Coding Visit Charges Inpatient E&M: 32425 Disch Hosp >30min 04/19/23 1328 <Electronically signed by Armand Bob MD> Cosigner Signature (if applicable): CC: Dr. Armand Bob MD; Dr. Jason Benitez MD~ Signed [facility] Work Phone: 1(720) 843-189608-25-2023 Discharge summary Author Armand Bob [facility] April 19, 2023 1:20pm Note Date/Time April 19, 2023 1: 20pm [facility] Medical Records Department [address] [place] [address] Transfer to [place] [facility] [id number] Acct: [id number] Name: CHEMA KOROMA Rep #:[id number] : 1940 82 From: Armand Bob MD PCP: Dr. Jason Benitez MD Status:ADM DEQUAN Certification of patient admission REQUIRED AT TIME OF ADMISSION. I CERTIFY THAT POST-HOSPITAL ECF SERVICES ARE REQUIRED TO BE GIVEN ON AN IN-PATIENT BASIS BECAUSE OF THE ABOVE NAMED PATIENT'S NEED FOR SENIOR LIVING CARE ON A CONTINUING BASIS FOR THE CONDITION(S) FOR WHICH HE/SHE WAS RECEIVINGIN-PATIENT HOSPITAL SERVICES PRIOR TO HIS/HER TRANSFER TO THE F. 04/19/23 1320<Electronically signed by Armand Bob MD> Diet Diet Order/Speech Therapy: 04/15/23 12:46 Diet: Regular - General Wound(s) David legs: Wound Type: Skin Tear Therapies Physical Therapy: Eval and Treat Occupational Therapy: Eval and Treat Problem/Diagnosis (1) Adult failure to thrive: Status: Acute Code(s): R62.7 - Adult failure to thrive (2) Falls: Status: Acute Code(s): W19.XXXA - Unspecified fall, initial encounter Plan Patient is an 82-year-old lady presenting with progressive generalized weakness for several month as well as extremity swelling and dizziness 1. Bilateral lower extremity -Bilateral venous duplex ordered to rule out DVT found to have elevated CRP start on Ceftin for possible cellulitis ? [id number] remains afebrile 2. Physical deconditioning - Requested for PT OT eval and social media sr strategy manager to assist with discharge planning ? 04/17/2023 awaiting placement in a retirement facility ? 04/18/2020 did complain of significant sacral pain imaging studies was negativefor fracture 3. Lymphedema involving both lower extremities ? Wound care nurse consulted 4. Hypertension - Blood pressure controlled, home medications continued with dose adjustment as needed 5. Nonischemic cardiomyopathy ? Echo from October 23, 2021 demonstrated EF of 50% 6. Chronic kidney disease stage IIIb ? Kidney function at baseline 7. Coronary artery disease ? Currently stable 8. Class II obesity with BMI of 36 Complicating care weight loss advised 9. DVT prophylaxis SC Lovenox Time spent in the patient's overall evaluation,decision-making process, review of diagnostic data, adjustment of management, discussion with other providers, nursing nursing and ancillary staff involved in patient's care documentation, 35minutes minutes Allergies/Procedures Done in Hospital Allergies adhesive Allergy (Verified 04/15/23 08:48) Hives dicyclomine HCl [From Bentyl] Allergy (Verified 04/15/23 08:48) Hives aspirin Adverse Reaction (Verified 04/15/23 08:48) Low platelets Type of Care/Length of Stay Estimated LOS: Convalescent Care Less Than 30 days Type of Care Needed: Skilled Rehab Potential: Good Prognosis: Good Additional Orders/Day of Discharge Day of Discharge: 04/19/23 Discharge Plan Admission Admit Date/Time: 04/15/23 15:39 Attending Provider: Armand Bob Primary Care Provider: Jason Benitez Consulting Providers: Mariusz Waters Discharge Orders/Prescriptions Prescriptions: New alum-mag hydroxide-simeth [Mag-Al Plus Extra Strength] 400-400-40 mg/5 mL Suspension 15 ml PO Q6H PRN PRN (Reason: Indigestion) Qty: 0 0RF menthol-zinc oxide [Calmoseptine] 0.44-20.6 % Ointment 1 applic topical BID Qty: 0 0RF Protocol: *Topical Application Instructions APPLICATION INSTRUCTIONS: apply to buttocks nitroglycerin 0.4 mg Tablet, Sublingual 0.4 mg sublingual Q5M PRN (Reason: Cardiac/Chest Pain) Qty: 0 0RF Continued pantoprazole [Protonix] 40 mg tablet,delayed release (DR/EC) 40 mg PO Q12H potassium chloride 20 mEq tablet,ER particles/crystals 20 meq PO DAILY Qty: 30 Patient Comments: TAKE 1 TABLET BY MOUTH DAILY atorvastatin 40 mg tablet 40 mg PO QHS 90 Days Qty: 90 3RF furosemide 40 mg tablet 40 mg PO DAILY PRN (Reason: swelling) cholecalciferol (vitamin D3) 1,000 UNIT capsule 1,000 unit PO DAILY Farxiga 10 mg tablet 10 mg PO DAILY triamcinolone acetonide 0.1 % cream 1 applic TOPICAL BID docusate sodium [Colace] 100 mg capsule 100 mg PO DAILY PRN (Reason: constipation) acetaminophen [Acetaminophen Extra Strength] 500 mg tablet 500 mg PO Q6H PRN (Reason: pain) carvedilol 6.25 mg tablet 6.25 mg PO BID Qty: 180 3RF Rx Instructions: must administer with a meal/food valsartan [Diovan] 80 mg tablet 80 mg PO DAILY Qty: 30 11RF Discontinued tramadol 50 mg tablet 25 - 50 mg PO Q8H PRN (Reason: pain) Patient Comments: TAKE ONE-HALF TO 1 (ONE) Tablet every EIGHT hours as needed for pain in leg] cephalexin 500 mg capsule 500 mg PO .COMPLEX Patient Comments: has 20 more capsules left in pill bottle Rx Instructions: 500 mg orally qid X10 days; Referrals / Follow Up: Jason Benitez MD [Primary Care Provider] - Disposition Disposition (needs filled in before D/C Order can be placed): Detention Facility (2) Falls Qualifiers: Encounter type: initial encounter Qualified Code(s): W19.XXXA - Unspecified fall, initial encounter 04/19/23 1320 <Electronically signed by Armand Bob MD> Cosigner Signature (if applicable): CC: Dr. Jason Benitez MD; Dr. Mariusz Waters MD ~ [facility] Work Phone: 1(952) 302-314908-25-2023 Progress note Author Armand Bob [facility] April 19, 2023 10:57am Note Date/Time April 19, 2023 8: 08am [facility] Medical Records Department [address] [place] [address] Progress Note - Hospitalist 04/19/23807 MR#: [id number] Acct: [id number] Name: CHEMA KOROMA Rep #:[id number] : 1940 82 From: Armand Bob MD PCP: Dr. Jason Benitez MD Status:ADM DEQUAN Location: [place] [address] Reason for Visit Reason for Visit: Diagnoses Adult failure to thrive (04/15/23) Unspecified fall, initial encounter (04/15/23) Subjective Subjective Patient seen awaiting transfer to retirement facility Objective Data Objective Data Vital Signs: Vital Signs Temp Pulse Resp BP Pulse Ox O2 Del Method 97.9 F 87 16 146/67 H 94 Room Air 04/19/23 04:13 04/19/23 04:13 04/19/23 04:13 04/19/23 04:13 04/19/23 07:55 04/19/23 07:55 Oxygen Delivery Method Room Air Weight: 80.2 kg Body Mass Index (BMI) 35.6 Intake & Output: Intake and Output for Last 24 Hours 04/17/23 04/18/23 04/19/23 23:59 23:59 23:59 Intake Total 300 / 400 300 / 300 100 / 100 Balance 300 / 400 300 / 300 100 / 100 Lab / Micro Data 04/16/23 06:10 04/16/23 06:10 Radiography Diagnostic Testing: Radiology Impression Pelvis X-Ray 04/17/23 11:20 IMPRESSION: No evidence of displaced pelvic or hip fracture. Electronically Signed: Remy Moody DO at 8:08 EDT , Physical Exam Narrative GENERAL: cooperative HEENT: Atraumatic; normocephalic EYES; Anicteric, Normal Conjunctiva NECK; supple, normal thyroid, RESPIRATORY: Diminished to auscultation CARDIOVASCULAR: Regular S1 S2, GI: soft, normoactive bowel sounds, : No Renal angle tenderness; EXTREMITIES: Edema and erythema MUSCULOSKELETAL: no muscle wasting NEURO: Awake; no lateralizing signs. SKIN: No Rash PSYCH; Flat affect Assessment & Plan Assessment/Plan (1) Adult failure to thrive: (2) Falls: QUALIFIERS: Encounter type: initial encounter Qualified Code(s): W19.XXXA - Unspecified fall, initial encounter PLAN: Plan Patient is an 82-year-old lady presenting with progressive generalized weakness for several month as well as extremity swelling and dizziness 1. Bilateral lower extremity -Bilateral venous duplex ordered to rule out DVT found to have elevated CRP start on Ceftin for possible cellulitis ? 825 [id number] remains afebrile 2. Physical deconditioning - Requested for PT OT eval and social media sr strategy manager to assist with discharge planning ? 04/17/2023 awaiting placement in a retirement facility ? 04/18/2020 did complain of significant sacral pain imaging studies was negativefor fracture 3. Lymphedema involving both lower extremities ? Wound care nurse consulted 4. Hypertension - Blood pressure controlled, home medications continued with dose adjustment as needed 5. Nonischemic cardiomyopathy ? Echo from October 23, 2021 demonstrated EF of 50% 6. Chronic kidney disease stage IIIb ? Kidney function at baseline 7. Coronary artery disease ? Currently stable 8. Class II obesity with BMI of 36 Complicating care weight loss advised 9. DVT prophylaxis SC Lovenox Time spent in the patient's overall evaluation,decision-making process, review of diagnostic data, adjustment of management, discussion with other providers, nursing nursing and ancillary staff involved in patient's care documentation, 35minutes minutes Charges/Coding Visit Charges Inpatient E&M: 00939 Subs Hosp L2 04/19/23 1057 <Electronically signed by Armand Bob MD> Cosigner Signature (if applicable): CC: ~ Signed [facility] Work Phone: 1(223) 894-102808-24-2023 Progress note Author Armand [facility] April 18, 2023 9:18am Note Date/Time April 18, 2023 8: 03am [facility] Medical Records Department [address] [place] [address] Progress Note - Hospitalist 04/18/23 0803 MR#: [id number] Acct: [id number] Name: CHEMA KOROMA Rep #:[id number] : 1940 82 From: Armand Bob MD PCP: Dr. Jason Benitez MD Status:ADM DEQUAN Location: [place] Reason for Visit Reason for Visit: Diagnoses Adult failure to thrive (04/15/23) Unspecified fall, initial encounter (04/15/23) Subjective Subjective Complain of significant sacral pain. Imaging studies did not show any fracture. Awaiting insurance precertification prior to transfer to retirement facility Objective Data Objective Data Vital Signs: Vital Signs Temp Pulse Resp BP Pulse Ox O2 Del Method 98.1 F 77 18 149/68 H 94 Room Air 04/18/23 04:32 04/18/23 04:32 04/18/23 04:32 04/18/23 04:32 04/18/23 04:32 04/18/23 07:48 Oxygen Delivery Method Room Air Weight: 80 kg Body Mass Index (BMI) 35.5 Intake & Output: Intake and Output for Last 24 Hours 04/16/23 04/17/23 04/18/23 23:59 23:59 23:59 Intake Total 275 / 375 300 / 400 300 / 300 Balance 275 / 375 300 / 400 300 / 300 Lab / Micro Data 04/16/23 06:10 04/16/23 06:10 Physical Exam Narrative GENERAL: cooperative HEENT: Atraumatic; normocephalic EYES; Anicteric, Normal Conjunctiva NECK; supple, normal thyroid, RESPIRATORY: Diminished to auscultation CARDIOVASCULAR: Regular S1 S2, GI: soft, normoactive bowel sounds, : No Renal angle tenderness; EXTREMITIES: Edema and erythema MUSCULOSKELETAL: no muscle wasting NEURO: Awake; no lateralizing signs. SKIN: No Rash PSYCH; Flat affect Assessment & Plan Assessment/Plan (1) Adult failure to thrive: (2) Falls: QUALIFIERS: Encounter type: initial encounter Qualified Code(s): W19.XXXA - Unspecified fall, initial encounter PLAN: Plan Patient is an 82-year-old lady presenting with progressive generalized weakness for several month as well as extremity swelling and dizziness 1. Bilateral lower extremity -Bilateral venous duplex ordered to rule out DVT found to have elevated CRP start on Ceftin for possible cellulitis 2. Physical deconditioning - Requested for PT OT eval and social media sr strategy manager to assist with discharge planning ? 04/17/2023 awaiting placement in a retirement facility ? 04/18/2020 did complain of significant sacral pain imaging studies was negativefor fracture 3. Lymphedema involving both lower extremities ? Wound care nurse consulted 4. Hypertension - Blood pressure controlled, home medications continued with dose adjustment as needed 5. Nonischemic cardiomyopathy ? Echo from October 23, 2021 demonstrated EF of 50% 6. Chronic kidney disease stage IIIb ? Kidney function at baseline 7. Coronary artery disease ? Currently stable 8. Class II obesity with BMI of 36 Complicating care weight loss advised 9. DVT prophylaxis SC Lovenox Time spent in the patient's overall evaluation,decision-making process, review of diagnostic data, adjustment of management, discussion with other providers, nursing nursing and ancillary staff involved in patient's care documentation, 35minutes minutes Charges/Coding Visit Charges Inpatient E&M: 91082 Subs Hosp L2 04/18/2318 <Electronically signed by Armand Bob MD> Cosigner Signature (if applicable): CC: ~ Signed [facility] Work Phone: 1(778) 666-492408-23-2023 Progress note Author Armand Bob [facility] April 17, 2023 9:14am Note Date/Time April 17, 2023 7: 19am [facility] Medical Records Department [address] [place] [address] Progress Note - Hospitalist 04/17/23718 MR#: [id number] Acct: [id number] Name: CHEMA KOROMA Rep #:[id number] : 1940 82 From: Armand Bob MD PCP: Dr. Jason Benitez MD Status:ADM DEQUAN Location: [address] Reason for Visit Reason for Visit: Diagnoses Adult failure to thrive (04/15/23) Unspecified fall, initial encounter (04/15/23) Subjective Subjective Patient seen remains weak. Patient agreeable to being discharged to retirement facility Objective Data Objective Data Vital Signs: Vital Signs Temp Pulse Resp BP Pulse Ox O2 Del Method 97.8 F 80 18 141/61 H 95 Room Air 04/17/23 05:24 04/17/23 05:24 04/17/23 05:24 04/17/23 05:24 04/17/23 05:24 04/17/23 05:24 Oxygen Delivery Method Room Air Weight: 79.3 kg Body Mass Index (BMI) 35.2 Intake & Output: Intake and Output for Last 24 Hours 04/15/23 04/16/23 04/17/23 23:59 23:59 23:59 Intake Total 275 / 375 250 / 250 Balance 275 / 375 250 / 250 Lab / Micro Data 04/16/23 06:10 04/16/23 06:10 Labs: Laboratory Results - last 24 hr 04/16/23 06:10: WBC 6.4, RBC 3.52 L, Hgb 9.9 L, Hct 31.4 L, MCV 89.2, MCH 28.1, MCHC 31.5 L D, RDW Std Deviation 48.6 H, RDW Coeff of [place] 15.1 H, Plt Count 194,MPV 10.7, Immature Gran % (Auto) 0.800, Neut % (Auto) 67.3, Lymph % (Auto) 15.5 L, [place] % (Auto) 13.3 H, Eos % (Auto) 2.5, Baso % (Auto) 0.6, Absolute Neuts (auto) 4.3, Absolute Lymphs (auto) 0.99, Nucleated RBC % 0, Sodium 139, Potassium 3.8, Chloride 102, Carbon Dioxide 31.0, Anion Gap 6, BUN 9, Creatinine0.79, Estim Creat Clear Calc 52.96, Est GFR (MDRD) Af Amer 89, Est GFR (MDRD) Non-Af 73, BUN/Creatinine Ratio 11.3, Glucose 98, Calcium 8.8, Phosphorus 2.4 L Radiography Diagnostic Testing: Radiology Impression Venous Doppler Study 04/15/23 16:08 Interpretation Summary No evidence for acute deep venous thrombosis bilateral lower extremities with patent and compressible bilateral great saphenous veins. Examination was noted to be technically difficult. Ordering Physician: Mariusz Waters Performed By: Abel Ventura RVT Physical Exam Narrative GENERAL: cooperative HEENT: Atraumatic; normocephalic EYES; Anicteric, Normal Conjunctiva NECK; supple, normal thyroid, RESPIRATORY: Diminished to auscultation CARDIOVASCULAR: Regular S1 S2, GI: soft, normoactive bowel sounds, : No Renal angle tenderness; EXTREMITIES: Edema and erythema MUSCULOSKELETAL: no muscle wasting NEURO: Awake; no lateralizing signs. SKIN: No Rash PSYCH; Flat affect Assessment & Plan Assessment/Plan (1) Adult failure to thrive: (2) Falls: QUALIFIERS: Encounter type: initial encounter Qualified Code(s): W19.XXXA - Unspecified fall, initial encounter PLAN: Plan Patient is an 82-year-old lady presenting with progressive generalized weakness for several month as well as extremity swelling and dizziness 1. Bilateral lower extremity -Bilateral venous duplex ordered to rule out DVT found to have elevated CRP start on Ceftin for possible cellulitis 2. Physical deconditioning - Requested for PT OT eval and social media sr strategy manager to assist with discharge planning ? 04/17/2023 awaiting placement in a retirement facility 3. Lymphedema involving both lower extremities ? Wound care nurse consulted 4. Hypertension - Blood pressure controlled, home medications continued with dose adjustment as needed 5. Nonischemic cardiomyopathy ? Echo from October 23, 2021 demonstrated EF of 50% 6. Chronic kidney disease stage IIIb ? Kidney function at baseline 7. Coronary artery disease ? Currently stable 8. Class II obesity with BMI of 36 Complicating care weight loss advised 9. DVT prophylaxis SC Lovenox Time spent in the patient's overall evaluation,decision-making process, review of diagnostic data, adjustment of management, discussion with other providers, nursing nursing and ancillary staff involved in patient's care documentation, 35minutes minutes Charges/Coding Visit Charges Inpatient E&M: 92751 Subs Hosp L2 04/17/23 0914 <Electronically signed by Armand Bob MD> Cosigner Signature (if applicable): CC: ~ Signed [facility] Work Phone: 1(826) 252-310908-22-2023 Progress note Author Armand [facility] April 16, 2023 8:47am Note Date/Time April 16, 2023 7: 21am [facility] Medical Records Department [address] [place] [address] Progress Note - Hospitalist 04/16/23 0719 MR#: [id number] Acct: [id number] Name: CHEMA KOROMA Rep #:[id number] : 1940 82 From: Armand Bob MD PCP: Dr. Jason Benitez MD Status:ADM DEQUAN Location: [place] [address] Reason for Visit Reason for Visit: Diagnoses Adult failure to thrive (04/15/23) Unspecified fall, initial encounter (04/15/23) Subjective Subjective Patient is an 82-year-old lady presenting with progressive generalized weakness for several month as well as extremity swelling and dizzin Objective Data Objective Data Vital Signs: Vital Signs Temp Pulse Resp BP Pulse Ox O2 Del Method 98 F 88 18 139/70 H 94 Room Air 04/16/23 02:08 04/16/23 02:08 04/16/23 02:08 04/16/23 02:08 04/16/23 02:08 04/16/23 02:15 Oxygen Delivery Method Room Air Weight: 80.1 kg Body Mass Index (BMI) 35.6 Intake & Output: Intake and Output for Last 24 Hours 04/14/23 04/15/23 04/16/23 23:59 23:59 23:59 Intake Total 75 / 75 Balance 75 / 75 Lab / Micro Data 04/16/23 06:10 04/16/23 06:10 Labs: Laboratory Results - last 24 hr 04/15/23 08:43: WBC 6.1, RBC 3.82 L, Hgb 10.4 L, Hct 35.1 L, MCV 91.9, MCH 27.2,MCHC 29.6 L, RDW Std Deviation 50.0 H, RDW Coeff of [place] 15.0 H, Plt Count 169, MPV 11.1, Immature Gran % (Auto) 1.000 H, Neut % (Auto) 66.9, Lymph % (Auto) 15.7 L, [place] % (Auto) 12.0 H, Eos % (Auto) 3.6, Baso % (Auto) 0.8, Absolute Neuts (auto) 4.1, Absolute Lymphs (auto) 0.95, Nucleated RBC % 0, Differential Comment SCANNED, Sodium 136, Potassium 4.2, Chloride 100, Carbon Dioxide 32.0, Anion Gap 4 L, BUN 12, Creatinine 1.03 H, Est GFR (MDRD) Af Amer 66, Est GFR (MDRD) Non-Af 54 L, BUN/Creatinine Ratio 11.7, Glucose 91, Calcium 8.6, Total Bilirubin 0.50, AST 22, ALT 16, Alkaline Phosphatase 76, Total Protein 6.5, Albumin 2.3 L, Globulin 4.2, Albumin/Globulin Ratio 0.5 L 04/15/23 08:46: ESR 41 H, C-React Prot Ext Range 14.90 H 04/15/23 09:52: Lactic Acid 1.1 04/15/23 11:08: Urine Color Yellow, Urine Clarity Sl. Cloudy, Urine pH 7.0, Ur Specific [place] 1.005, Urine Protein Negative, Urine Glucose (UA) 50 H, Urine Ketones Negative, Urine Occult Blood Negative, Urine Nitrite Negative, Urine Bilirubin Negative, Urine Urobilinogen Normal, Ur Leukocyte Esterase 25 H, UrineRBC 0 SEEN, Urine WBC 0 SEEN, Ur Squamous Epith Cells 0-5 SEEN, Urine Bacteria 0SEEN, Urine Mucus 0 SEEN Physical Exam Narrative GENERAL: cooperative HEENT: Atraumatic; normocephalic EYES; Anicteric, Normal Conjunctiva NECK; supple, normal thyroid, RESPIRATORY: Diminished to auscultation CARDIOVASCULAR: Regular S1 S2, GI: soft, normoactive bowel sounds, : No Renal angle tenderness; EXTREMITIES: Edema and erythema MUSCULOSKELETAL: no muscle wasting NEURO: Awake; no lateralizing signs. SKIN: No Rash PSYCH; Flat affect Assessment & Plan Assessment/Plan (1) Adult failure to thrive: (2) Falls: QUALIFIERS: Encounter type: initial encounter Qualified Code(s): W19.XXXA - Unspecified fall, initial encounter PLAN: Plan Patient is an 82-year-old lady presenting with progressive generalized weakness for several month as well as extremity swelling and dizziness 1. Bilateral lower extremity -Bilateral venous duplex ordered to rule out DVT found to have elevated CRP start on Ceftin for possible cellulitis 2. Physical deconditioning - Requested for PT OT eval and social media sr strategy manager to assist with discharge planning 3. Lymphedema involving both lower extremities ? Wound care nurse consulted 4. Hypertension - Blood pressure controlled, home medications continued with dose adjustment as needed 5. Nonischemic cardiomyopathy ? Echo from October 23, 2021 demonstrated EF of 50% 6. Chronic kidney disease stage IIIb ? Kidney function at baseline 7. Coronary artery disease ? Currently stable 8. Class II obesity with BMI of 36 Complicating care weight loss advised 9. DVT prophylaxis SC Lovenox Time spent in the patient's overall evaluation,decision-making process, review of diagnostic data, adjustment of management, discussion with other providers, nursing nursing and ancillary staff involved in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 Koroma DATE: April 01, 2023 TIME: 2:21 PM PAGER/CONTACT #: [phone] [id number] NoteHNO ID: [id number] Author: Taisha Brock MD Service: Hospital Medicine Author Type: Physician Type: Progress Notes Filed: 03/31/2023 5:55 PM Note Text: DEPARTMENT OF HOSPITAL MEDICINE PROGRESS NOTE SERVICE DATE: 03/31/2023 SERVICE TIME: 5:32 PM Hospital Medicine/Primary Attending: Taisha Brock MD NIGHT AND WEEKEND COVERAGE: RALPH COVERAGE: Days: [phone], please page attending physician. Nights: [phone], please page [place] Hospital[facility] Night coverage pager [phone]. Subjective INTERVAL HPI: Patient still having leg swelling on the left lower extremity. Still weeping. Will start to wrap leg. Current Facility-Administered Medications Medication Dose Route Frequency NaCl 0.9% iv flush bag 20 mL INTRAVENOUS PRN polyethylene glycol 3350 17 g packet 17 g ORAL DAILY PRN bisacodyl 10 mg suppository (DULCOLAX) 10 mg RECTAL DAILY PRN acetaminophen 650 mg tab(s) (TYLENOL) 650 mg ORAL q 6 H PRN melatonin 6 mg tab(s) 6 mg ORAL AT BEDTIME PRN carvedilol 6.25 mg tab(s) (COREG) 6.25 mg ORAL BID w MEALS traMADol 50 mg tab(s) (ULTRAM) 50 mg ORAL q [address] 40 mg tab(s) (PROTONIX) 40 mg ORAL DAILY (6 AM) ceFAZolin iv piggyback 1 g in D5W (iso-osmotic) 50 mL (ANCEF) 1 g INTRAVENOUS q 8 H doxycycline hyclate 100 mg cap(s) (VIBRAMYCIN) 100 mg ORAL q 12 H 6a/6p potassium chloride ER 40 mEq tab(s) (KLOR-CON) 40 mEq ORAL BID ondansetron (PF) 4 mg injection (ZOFRAN) 4 mg INTRAVENOUS q 6 H PRN Objective PHYSICAL EXAM: BP 132/56 Pulse 83 Temp (Src) 98.2 (Oral) Resp 18 Ht 5' 0 (1.52m) Wt 193 lb 2 oz (87.6kg) SpO2 96% BMI 37.72 kg/(m2). O2 Therapy: Room Air Physical Exam Performed GENERAL: Alert, no distress, cooperative, Obese SKIN: Skin color, texture, turgor normal. No rashes or lesions. HEAD/SINUSES: No significant findings EYES: PERRLA, EOMI LUNGS: Lungs clear to auscultation, Good diaphragmatic excursion CARDIAC: Normal S1 and S2; no rubs, murmurs, or gallops ABDOMEN: Abdomen soft, non-tender, BS normal, No masses or organomegaly EXTREMITIES: Extremities normal, no deformities, edema, clubbing or skin discoloration. Good capillary refill., No ulcers, left lymphedema and weeping skin NEURO: Cranial nerves II-XII intact PULSES: 2+ radial, 2+ carotid Lines, Drains, and Airways Line Duration Peripheral 03/30/23 2200 Right Wrist 22 Gauge <1 day Drain Duration External Collection Device 03/30/23 1700 1 day Reviewed lines and needs to be continued: REASONS: Intravenous antibiotics DATA: Diagnostic tests reviewed for today's visit: Recent Labs 03/31/23 0603/30/23 0505 03/29/23 1821 WBC 7.27 6.96 9.07 RBC 3.10* 2.89* 3.33* HB 8.5* 8.0* 9.3* HCT 27.2* 25.1* 29.7* PLT 374 338 396 MCV 87.7 86.9 89.2 MCH 27.4 27.7 27.9 MPV 10.2 10.3 10.6 ABSNEUT -- -- 7.34 NEUTP -- -- 80.9 LYMPHP -- -- 9.0 MONOP -- -- 8.3 Recent Labs 03/31/23 0613 03/30/23 0505 03/29/23 1821 GLUC 114* 87 133* NA 142 141 142 K 3.3* 3.3* 3.2* CHLOR 104 103 102 CO2 29 30 30 CREAT 0.99* 1.14* 1.37* BUN 12 14 16 ANION 9 8* 10 CA 8.4* 8.2* 8.8 TPROT 5.8* 5.5* 6.4 ALB 2.4* 2.2* 2.6* TBILI 0.2 0.3 0.3 ALKPHOS 69 64 82 AST 13 12* 17 ALT 7 7 9 ALEENA High Sensitivity Date Value Ref Range Status 03/29/2023 27 (H) <12 ng/L Final Comment: When assessing risk for acute coronary syndromes: In patients undergoing blood draw greater than or equal to 2 hours from symptom onset, with history of very low to moderate risk and non-ischemic ECG, an initial hs-Troponin T less than 12 ng/L AND a 1 hour delta hs-Troponin T less than 3 ng/L should be considered very low risk for 30 day MACE. 03/29/2023 29 (H) <12 ng/L Final Comment: When assessing risk for acute coronary syndromes: In patients undergoing blood draw greater than or equal to 2 hours from symptom onset, with history of very low to moderate risk and non-ischemic ECG, an initial hs-Troponin T less than 12 ng/L AND a 1 hour delta hs-Troponin T less than 3 ng/L should be considered very low risk for 30 day MACE. 03/29/2023 30 (H) <12 ng/L Final Comment: When assessing risk for acute coronary syndromes: In patients undergoing blood draw greater than or equal to 2 hours from symptom onset, with history of very low to moderate risk and non-ischemic ECG, an initial hs-Troponin T less than 12 ng/L AND a 1 hour delta hs-Troponin T less than 3 ng/L should be considered very low risk for 30 day MACE. Most recent imaging Assessment/Plan Problem List Lower extremity edema (POA: Yes) VICTORINO (acute kidney injury) (HCC) (POA: Status not on file) HOSPITAL COURSE: This is a 82 year old female with PMH of chronic lymphedema, HTN, who presents with Worsening LLE swelling and concern for infection over LLE. LLE Cellulitis with purulent drainage - failed outpatient abx therapy PLAN - IV Vancomycin AND zosyn - now changed to ancef and doxy - Infectious disease consult (more content not included)...[facility] 03-30-2023 NoteHNO ID: [id number] Author: Tasiha Brock MD Service: Hospital Medicine Author Type: Physician Type: Plan of Care Filed: 03/30/2023 11:20 PM Note Text: SHORT HOSPITALIST PROGRESS NOTE PATIENT NAME: Chema Koroma SERVICE DATE: 03/30/2023 SERVICE TIME: 5:14 PM Hospital Medicine/Primary Attending: Taisha Brock MD NIGHT COVERAGE BETWEEN 5.30P-7.30A Page [id number] Patient seen and eval. Reviewed orders and HANDP from this AM. Patient still having left sided drainage of from the swelling from the lymphedema. No f/c/n/v. Wants to go home. Follows lymphedema clinic in [place] once a week. Patient states its hard to go twice a week. Patient trying to follow up with Dr. Jesse aLw at [facility] to evaluate the lymphedema. DATA: Diagnostic tests reviewed for today's visit: Most recent labs CBC: WBC 6.96 03/30/2023 Hemoglobin 8.0 03/30/2023 Hematocrit 25.1 03/30/2023 Platelet Count 338 03/30/2023 CMP: Sodium 141 03/30/2023 Potassium 3.3 03/30/2023 BUN 14 03/30/2023 Creatinine 1.14 03/30/2023 Glucose 87 03/30/2023 Chloride 103 03/30/2023 CO2 30 03/30/2023 Plan of care discussed with: Patient, RN SIGNATURE: Taisha Brock MD DATE: March 30, 2023 TIME: 11:14 PMSelect [facility] [id number] Miscellaneous Notes* Telephone Encounter - Chrispranav Grace, PT - 03/29/2023 3:11 PM EDT Received phone call from [place] [employer] at home of the patient stating they were called d/t pt symptoms of increased redness on lymphatic leg and increased temperature (fever) last couple ofdays. Pt did not want to go to ER, but wanted to keep her PT appt scheduled for today here. The captain asked if therapist would consult with pt over the phone. Therapist spoke with Chema over the phone stating that if these symptoms are present, MLD treatment is contraindicated and even if she came to this appt, I could not treat her and would recommend she go to ER right away anyway d/t concern for spread of infection and sepsis. Pt verbalized that she did not want to go the the ER, but accepted therapist recommendation. The Fire [employer] personnel were still present at the end of the phone conversation. Grace Bonds PT, CLT * Telephone Encounter - Cj Anderson - 03/29/2023 2:42 PM EDT Daughter called pt possibly not making it to the appt, going to local hospital. documented [facility] [place] History of Present illness Narrative* Grace Bonds PT - 03/22/2023 4:04 PM EDT Episode Visit Count: 75 Therapist That Will Accept/Oversee The Plan Of Care: Grace Bonds Start of Care Date: 03/13/21 Onset Date: 02/20/21 (past several weeks) Plan of Care Certification Date: 03/08/23 Next Certification Due Date: 04/08/23 Patient Identified by Name and Date of : Yes REHABILITATION AND SPORTS THERAPY PHYSICAL THERAPY TREATMENT NOTE ASSESSMENT: Chema B Ga tolerated the session with intermittent pain L LE with pressure and during transfers. She demonstrated difficulty with sit <>stand and supine<>sit transfers today d/t L LE pain requiring therapist assist. Pt does demonstrate improvement in B LE volume measurements. The patient will continue to benefit from ongoing skilled physical therapy to progress toward set goals. PLAN FOR NEXT VISIT: Continue with MLD and compression bandaging L LE. May review/resume HEP now that pt has assistance to perform at home. SUBJECTIVE: Patient Reason for Visit: Pt to dept with Patrizia, caregiver, and Amy, her nephew's . They all contributed to subjective update of pt having significant L leg pain and taken to ER on Saturday 03/17. Pt was diagnosed with cellulitis and given IV antibiotics and discharged on Monday 03/19. Pt is staying with her caregiver, Patrizia, ric who is able to provide assistance so pt is not at her home alone. Pt reports that the hospital doctor wants her to have home therapy to buildher strength so she can walk on her own again. Pain: Pain Pain Level: (not rated numerically) Pain Location: Calf - Left Frequency: Intermittent (with pressure to lower leg) Post Treatment Pain Post Treatment Pain Level: 0 (not rated) Post Treatment Pain Location: Calf - Left OBJECTIVE MEASURES WITH LEVEL OF FUNCTION: Lymphedema Comment: Pt presents with elastic bandages around both legs to 3/4 proximal calf. uneven coverage noted. Guaze wrapping around distal to mid lower legs under elastic bandages. L LE with 4 non-stick pads over anterolateral lower leg. Color Comments:: Redness starting 3 from floor up to 6 below knee with very mild redness remaining proximally to upper thigh. Dryness/Flaking of Skin Comments:: R lower leg with dryness and small flaking of skin. Lymphorrhea Comments:: Slight moistness of anterolateral lower leg today, but no seeping noted. Mild dried yellow drainage on a couple of the pads were present under her bandaging upon arrival. Lower Extremity Circumferential Measurements R 1st toe (proximal phalanx): 9 R Metatarsal Phalangeal (MTP): 22 R Arch: 22.5 R 5 cm from floor: 26 cm R 10 cm from floor: 22 cm R 15 cm from floor: 27 cm R 20 cm from floor: 35 cm R 25 cm from floor: 38.5 cm R 30 cm from floor: 45 cm R 35 cm from floor: 47.5 cm R 40 cm from floor: 50 cm (knee) R 45 cm from floor: 52.5 cm R 50 cm from floor: 57.5 cm L 1st toe (proximal phalanx): 8 L Metatarsal Phalangeal (MTP): 22 L Arch: 22 L 5 cm from floor: 26 cm L 10 cm from floor: 23.5 cm L 15 cm from floor: 41.5 cm L 20 cm from floor: 48 cm L 25 cm from floor: 50 cm L 30 cm from floor: 59.5 cm L 35 cm from floor: 60 cm L 40 cm from floor: 60 cm (knee) L 45 cm from floor: 63 cm L 50 cm from floor: 65.5 cm Affected Leg: Bilateral, Left Leg Larger Calculate Volume : Yes R Lower Extremity Volume: 6137 L Lower Extremity Volume: 9630 Difference in Volume: 3493 Difference in % : 56.92 Gait Gait Observation: Pt to dept in w/c. Pt's aidPatrizia reporting pt requiring 2-3 people to help pt in/out of their vehicle to transport. Pt performed w/c<>plinth transfer with walker and 2 assist to stand, then 1 assist to transfer to plinth. One assistfor sit to supine. Two assist for supine to sit. Transfer plinth to w/c (using walker) after treatment required one assist. Attempted to contact [facility] regarding discharge recommendations and pt follow up. Left two voicemails at the number that was in the phone message to call back. TREATMENT: Manual Therapy: 1: Removed previous elastic bandages and underlying guaze wraps that were placed on at hospital discharge. 2: Applied new stockinette, padding and previously used short-stretch compression wraps to L lower leg to knee. (Included 2- 3x5 absorptive pads over anterolateral lower leg, directly against skin.) 3: Issued contact information for pt to obtain new short-stretch bandaging supplies for L LE wrapping. 4: Applied short stretch bandaging to R lower leg as pt's previous wrapping was causing indentations and uneven pressure. Pt was reminded that she needs to get a compression stocking for R LE as onlythe L LE is being treated in therapy now. Skilled Intervention: Manual skills to improve joint mobility, ROM, and decrease pain. Utilized anatomy knowledge of the therapist, and assessment of patient's response to intervention. Manual techniques to facilitate lymphatic dynamics and improve condition of tissue. Billing KX Modifier : Therapist attests that services rendered are medically necessary. Manual TherapyTreatment Minutes: 75 Total Treatment Time Minutes (timed/untimed): 75 Session Start Time : 231 Session Stop Time : 346 Grace Bonds PT documented in this encounterSelect [facility] [place]-27-2023 Miscellaneous Notes* Telephone Encounter - Keyonna Ledesma - 03/21/2023 2:42 PM EDT [facility] calling to ask physical therapist about some options for care for this pt. Please call when able Disha [phone] documented in this encounterSelect [facility] [place]07-26-2023 Miscellaneous Notes* Telephone Encounter - Judith Au PA-C - 03/20/2023 3:54 PM EDT Called both daughter and patient No answer Lymphedema pool has exhausted all contact options of reaching patient. Patient or daughter to reach out if further assistance is required. Judith Au PA-C March 20, 2023 documented in this encounterSelect [facility] [place]-14-[facility]23 History of Present illness Narrative* Grace Bonds, PT - 03/08/2023 2:30 PM EDT Episode Visit Count: 73 Therapist That Will Accept/Oversee The Plan Of Care: Grace Bonds Start of Care Date: 03/13/21 Onset Date: 02/20/21 (past several weeks) Plan of Care Certification Date: 03/08/23 Next Certification Due Date: 04/08/23 Patient Identified by Name and Date of : Yes REHABILITATION AND SPORTS THERAPY PHYSICAL THERAPY PROGRESS REPORT PLAN OF CARE UPDATE: Assessment: Chema Koroma demonstrates improvements in rising from a chair and walking. She has progressed toward goals. Patient continues to present with impairments in edema management, soft tissue healing, and symptom management that interfere with walking in the community (transfers) . Current prognosis is Good due to: positive past response to therapy, current objective clinical presentation, Prognosis may be limited due to multiple co- morbidities, chronic nature of impairments, limited support system . Pt has improved in L LE skin and soft tissue condition, but remains with significant deficits. R LE no longer requires skilled intervention and pt is to obtain compression garment for effective self- management. Recommend pt attain frequency of twice a week, but she is unsure that she can do this d/t transportation needs and other medical appointments.She will benefit from continued skilledtherapy services to meet the updated goals for this plan of care as noted below. Goals for Episode of Care: created on 03/13/21 through 05/14/21 Goals updated on 03/08/2023. Patient / family knowledgeable re: all pertinent aspects of CDT (Met) Patient / family independent with donning / doffing compression garment and proper wearing schedule and care of garment (Not Met)-Pt has not yet obtained compression stocking for R LE as recommended. Patient / family independent with home exercise program (Met) Patient will decrease circumferential measurements by 0.5-13.0 cm in the following areas: B LE for decreased recurrence of infection, improved mobility, improved range of motion and allow appropriate fit in compressive garment. (Partially Met)-improving Pt to demonstrate reduction of lymphorrhea to allow for wearing of custom compression garments. (Partially Met) Pt will perform supine <> sit transfer independently. (Partially Met)requires assist L LE sitto supine, but independent supine to sit Pt will ambulate with decreased effort. (Met) 10/06/22: Pt will demonstrate reduction in L LE fibrosis (intensity and area). (Partially Met) Patient Goals: To stop the draining and get the left leg smaller again. (Partially Met) 01/04/23: Pt will obtain appropriate fitting compression stocking for R LE. (Not Met) Planned Interventions, Frequency, and Duration: 2x/week, 4 weeks Total Number of Visits Planned: 8 Patient to be seen for Therapeutic exercise (31095), Manual therapy (88269), Self-correction management (98175) PLAN FOR NEXT VISIT: Obtain LE volume measurements. Continue MLD and short- stretch compression wrapping to L LE. SUBJECTIVE: Patient Reason for Visit: Pt notes she doesn't think her leg was seeping like it was before. Functional Limitations: walking in the community (transfers) Pain: Pain Pain Level: 0 Pain Location: (L heel pain) Frequency: Intermittent Post Treatment Pain Post Treatment Pain Level: 0 PROMIS Scales T-scores: mean of general population = 50. 5 points is clinically meaningfully difference Percentiles provide an indication of how the patient's score ranks in relation to the general population. Higher percentile rankings indicate better function/quality of life. 50th percentile is the average of the general population and indicates half of respondents had a worse score. OBJECTIVE MEASURES WITH LEVEL OF FUNCTION: Lymphedema Comment: Pt presents with wraps in place B LE.Bandages are clean and dry today with no drainage. Lymphorrhea Comments:: Raw skin with pink area at anterolateral L lower leg and no visible seeping today. Dried drainage present on both 3x5 absorptive pads that were underneath bandages (directly next to skin), but they are no longer fully saturated and no drainage seeped through to the bandaging layers. Decreased size of area of darkened sloughing again. TREATMENT: Manual Therapy: 1: Removed bandages of L LE and all were dry without any drainage. Applied new stockinette, paddingand short-stretch compression wraps to L lower leg to knee. (Included 2- 3x5 absorptive pads overanterolateral lower leg, directly against skin.) 2: MLD for L LE sequence utilizing anterior interinguinal, R inguino-axillary anastamoses. Gloves were donned during treatment and wrapping over L lower leg. 3: Reapplied short-stretch compression bandage on R lower leg. Reminded pt to obtain compression garment to wear on R LE treatment for R LE will be discontinued. Skilled Intervention: Manual skills to improve joint mobility, ROM, and decrease pain. Utilized anatomy knowledge of the therapist, and assessment of patient's response to intervention. Manual techniques to facilitate lymphatic dynamics and improve condition of tissue. Billing KX Modifier : Therapist attests that services rendered are medically necessary. Manual TherapyTreatment Minutes: 60 Total Treatment Time Minutes (timed/untimed): 60 Grace Bonds PT documented in this encounterSelect [facility] [place]-07-[facility]23 History of Present illness Narrative* Grace Bonds PT - 03/01/2023 3:52 PM EDT Episode Visit Count: 72 Therapist That Will Accept/Oversee The Plan Of Care: Grace Bonds Start of Care Date: 03/13/21 Onset Date: 02/20/21 (past several weeks) Plan of Care Certification Date: 01/04/23 Next Certification Due Date: 03/06/23 Patient Identified by Name and Date of : Yes REHABILITATION AND SPORTS THERAPY PHYSICAL THERAPY TREATMENT NOTE ASSESSMENT: Chema B Ga tolerated the session with no issues. She demonstrated improvements in skin and soft tissue condition, L lower leg volume. The patient will continue to benefit from ongoing skilled physical therapy for reassessment by supervising therapist. PLAN FOR NEXT VISIT: POC update SUBJECTIVE: Patient Reason for Visit: Pt reporting continued itchiness around L ankle, but mild andintermittent. Pain: Pain Pain Level: 0 Post Treatment Pain Post Treatment Pain Level: 0 OBJECTIVE MEASURES WITH LEVEL OF FUNCTION: Lymphedema Comment: Pt presents with wraps in place B LE.Bandages are clean and dry today with no drainage. Lymphorrhea Comments:: Raw skin with pink area at anterolateral L lower leg and no visible seeping today. Mild odor remains during treatment with skin exposed. Dried drainage present on both 3x5 absorptive pads that were underneath bandages (directly next to skin), but they are no longer fully saturated and no drainage seeped through to the bandaging layers. Decreased size of area of darkened sloughing by half of previous size. TREATMENT: Manual Therapy: 1: Removed bandages of L LE and all were dry without any drainage. Applied new stockinette, paddingand short-stretch compression wraps to L lower leg to knee. (Included 2- 3x5 absorptive pads overanterolateral lower leg, directly against skin.) 2: MLD for L LE sequence utilizing anterior interinguinal, R inguino-axillary anastamoses. Gloves were donned during treatment and wrapping over L lower leg. 3: Reapplied short-stretch compression bandage on R lower leg. Reminded pt and caregiver, Patirzia, toobtain compression garment to wear on R LE so she can discontinue the short-stretch wraps on that leg. Skilled Intervention: Manual skills to improve joint mobility, ROM, and decrease pain. Utilized anatomy knowledge of the therapist, and assessment of patient's response to intervention. Manual techniques to facilitate lymphatic dynamics and improve condition of tissue. Billing KX Modifier : Therapist attests that services rendered are medically necessary. Manual TherapyTreatment Minutes: 60 Total Treatment Time Minutes (timed/untimed): 60 Grace Bonds PT documented in this encounterSelect [facility] [place]23 History of Present illness Narrative* Grace Bonds PT - 02/27/2023 2:33 PM EDT Episode Visit Count: 71 Therapist That Will Accept/Oversee The Plan Of Care: Grace Bonds Start of Care Date: 03/13/21 Onset Date: 02/20/21 (past several weeks) Plan of Care Certification Date: 01/04/23 Next Certification Due Date: 03/06/23 Patient Identified by Name and Date of : Yes REHABILITATION AND SPORTS THERAPY PHYSICAL THERAPY TREATMENT NOTE ASSESSMENT: Chema Koroma tolerated the session with no issues. She demonstrated improvements in decreased drainage and apparent volume of L lower leg. The patient will continue to benefit from ongoing skilled physical therapy to progress toward set goals. PLAN FOR NEXT VISIT: Continue with MLD, short stretch wrapping and facilitating appropriate compression garments. SUBJECTIVE: Patient Reason for Visit: Pt notes she went to the ER yesterday as she was having a hard time breathing d/t the heat (she does not have air conditioning at her home.) She notes the doctorstarted her on a different (stronger) antibiotic. She denies any difficulty breathing or heaviness today. Pain: Pain Pain Level: 0 Post Treatment Pain Post Treatment Pain Level: 0 OBJECTIVE MEASURES WITH LEVEL OF FUNCTION: Lymphedema Comment: Pt presents with wraps in place B LE.Bandages are clean and dry today with no drainage. Lymphorrhea Comments:: Raw skin with minimal redness at anterolateral L lower leg and no visible seeping today. Mild odor remains during treatment with skin exposed. Dried drainage present on both 3x5 absorptive pads that were underneath bandages (directly next to skin), but no drainage had seeped through to the bandaging layers. Overall L lower leg appeared to be slightly reduced in volume today (felt a little refrigerator assembler and wrap appeared a little smaller) compared to previous visit. TREATMENT: Manual Therapy: 1: Removed bandages of L LE and all were dry without any drainage. Applied new stockinette, paddingand short-stretch compression wraps to L lower leg to knee. (Included 2- 3x5 absorptive pads overanterolateral lower leg, directly against skin.) 2: MLD for L LE sequence utilizing anterior interinguinal, R inguino-axillary anastamoses. Gloves were donned during treatment and wrapping over L lower leg. 3: Reapplied short-stretch compression bandage on R lower leg. Again, recommended pt obtain compression garment to wear on R LE as she can discontinue the short-stretch wraps on that side. Skilled Intervention: Manual skills to improve joint mobility, ROM, and decrease pain. Utilized anatomy knowledge of the therapist, and assessment of patient's response to intervention. Manual techniques to facilitate lymphatic dynamics and improve condition of tissue. Billing Manual TherapyTreatment Minutes: 57 Total Treatment Time Minutes (timed/untimed): 57 Grace Bonds PT documented in this encounterSelect [facility] [place]-30-2023 History of Present illness Narrative* Grace Bonds PT - 02/22/2023 4:05 PM EDT Episode Visit Count: 70 Therapist That Will Accept/Oversee The Plan Of Care: Grace Bonds Start of Care Date: 03/13/21 Onset Date: 02/20/21 (past several weeks) Plan of Care Certification Date: 01/04/23 Next Certification Due Date: 03/06/23 Patient Identified by Name and Date of : Yes REHABILITATION AND SPORTS THERAPY PHYSICAL THERAPY TREATMENT NOTE ASSESSMENT: Chema Koroma tolerated the session with no issues. She demonstrated improvements in L lower leg drainage is decreased, but remains moderate and decreased intensity of redness of skin. Pt was again encouraged to have medical consult to monitor leg and antibiotic treatments. The patient will continue to benefit from ongoing skilled physical therapy to progress toward set goals. PLAN FOR NEXT VISIT: Continue with MLD, short stretch wrapping and facilitating appropriate compression garments. SUBJECTIVE: Patient Reason for Visit: Pt states her L leg has not been itching or hurting like it was earlier in the week. Pain: Pain Pain Level: 0 Post Treatment Pain Post Treatment Pain Level: 0 OBJECTIVE MEASURES WITH LEVEL OF FUNCTION: Lymphedema Comment: Pt presents with wraps in place B LE. Distal fourth of lateral bandage on L lower leg was stained from drainage. Lymphorrhea Comments:: Raw skin with decreased redness at anterolateral L lower leg and no visible seeping today. Mild odor remains during treatment with skin exposed. TREATMENT: Manual Therapy: 1: Removed bandages of L LE with drainage soaked through to outside layer of bandages (though less of an area than previous visit 02/20/23). Applied new stockinette, padding and short-stretch compression wraps to L lower leg to knee. 2: Pt's home health nurse, Patrizia washed and patted dry her leg prior to therapist donning new wrapping with new stockinette, partial new padding and new short-stretch bandages. 3: MLD for L LE sequence utilizing anteiror interinguinal, R inguino-axillary anastamoses. Gloves were donned during treatment and wrapping over L lower leg. 4: Reapplied short-stretch compression bandage on R lower leg. Again, recommended pt obtain compression garment to wear on R LE as she can discontinue the short-stretch wraps on that side. Skilled Intervention: Manual skills to improve joint mobility, ROM, and decrease pain. Utilized anatomy knowledge of the therapist, and assessment of patient's response to intervention. Manual techniques to facilitate lymphatic dynamics and improve condition of tissue. Billing Manual TherapyTreatment Minutes: 62 Total Treatment Time Minutes (timed/untimed): 62 Grace Bonds PT documented in this [facility]Select [facility] [facility] [place] History of Present illness Narrative* Grace Bonds PT - 02/20/2023 3:24 PM EDT Episode Visit Count: 69 Therapist That Will Accept/Oversee The Plan Of Care: Grace Bonds Start of Care Date: 03/13/21 Onset Date: 02/20/21 (past several weeks) Plan of Care Certification Date: 01/04/23 Next Certification Due Date: 03/06/23 Patient Identified by Name and Date of : Yes REHABILITATION AND SPORTS THERAPY PHYSICAL THERAPY TREATMENT NOTE ASSESSMENT: Chema Koroma tolerated the session with no issues. She demonstrated difficulty with no improvement despite course of antibiotics and increased drainage and edema L LE. The patient will continue to benefit from ongoing skilled physical therapy to progress toward set goals. Therapist recommended pt to seek medical consult, but she was resistant. PLAN FOR NEXT VISIT: Continue with MLD, short stretch wrapping and facilitating appropriate compression garments. SUBJECTIVE: Patient Reason for Visit: Pt reports she woke up Saturday morning and her leg felt funny.She noticed it was leaking a lot of fluid. She states it has been leaking through her wraps and onto her socks and shoes. Pain: Pain Pain Level: 0 Post Treatment Pain Post Treatment Pain Level: 0 OBJECTIVE MEASURES WITH LEVEL OF FUNCTION: Lymphedema Comment: Pt presents with wraps in place B LE. Distal third of lateral bandage on L lower leg was stained from drainage. Lymphorrhea Comments:: Raw skin with redness at anterolateral L lower leg with moisture and dried drainage on stockinette. Visible seeping and odor noted during treatment with skin exposed. TREATMENT: Manual Therapy: 1: Removed bandages of L LE with drainage soaked through to outside layer of bandages. Applied new stockinette, padding and short-stretch compression wraps to L lower leg to knee. 2: Pt's home health nurse, Patrizia washed and patted dry her leg prior to therapist donning new wrapping with new stockinette, partial new padding and new short-stretch bandages. 3: Advised pt to seek medical consult regarding her continued infection despite several weeks of antibiotic treatment. Noted concern for progression of infection (possibility of sepsis) and skin breakdown. Pt's aid, Patrizia, also encouraged pt to go to local ER or urgent care for medical consult. Pt stating she is trying to get in to see Dr. Law and thinks she can get an appointment soon. She doesnot want to be in the hospital for any extended length. Skilled Intervention: Manual skills to improve joint mobility, ROM, and decrease pain. Utilized anatomy knowledge of the therapist, and assessment of patient's response to intervention. Billing Manual TherapyTreatment Minutes: 43 Total Treatment Time Minutes (timed/untimed): 43 Grace Bonds PT [facility] [place] History of Present illness Narrative* Grace oBnds PT - 02/08/2023 1:50 PM EDT Episode Visit Count: 68 Therapist That Will Accept/Oversee The Plan Of Care: Grace Bonds Start of Care Date: 03/13/21 Onset Date: 02/20/21 (past several weeks) Plan of Care Certification Date: 01/04/23 Next Certification Due Date: 03/06/23 Patient Identified by Name and Date of : Yes REHABILITATION AND SPORTS THERAPY PHYSICAL THERAPY PROGRESS REPORT PLAN OF CARE UPDATE: Assessment: Chema Koroma demonstrates difficulty with sit to supine and walking in the community. She has progressed toward goals. Patient continues to present with impairments in edema management and skin and soft tissue condition that interfere with walking in the community (transfers) . Current prognosis is Good due to: positive past response to therapy, Prognosis may be limited due to clinical presentation, multiple co- morbidities, chronic nature of impairments, limited support system . Pt had made initial improvement, but recently increased in edema with L LE being treated with antibiotics. Ptis non compliant with HEP or obtaining compression garments. She is only able to arrange transportation once a week for treatments. She will benefit from continued skilled therapy services to meet the updated goals for this plan of care as noted below. Goals for Episode of Care: created on 03/13/21 through 05/14/21 Goals updated on 02/08/2023. Patient / family knowledgeable re: all pertinent aspects of CDT (Met) Patient / family independent with donning / doffing compression garment and proper wearing schedule and care of garment (Not Met) Patient / family independent with home exercise program (Met) Patient will decrease circumferential measurements by 0.5-13.0 cm in the following areas: B LE for decreased recurrence of infection, improved mobility, improved range of motion and allow appropriate fit in compressive garment. (Partially Met) Pt to demonstrate reduction of lymphorrhea to allow for wearing of custom compression garments. (Partially Met) Pt will perform supine <> sit transfer independently. (Partially Met)requires assist L LE sitto supine, but independent supine to sit Pt will ambulate with decreased effort. (Met) 10/06/22: Pt will demonstrate reduction in L LE fibrosis (intensity and area). (Partially Met) Patient Goals: To stop the draining and get the left leg smaller again. (Partially Met) 01/04/23: Pt will obtain appropriate fitting compression stocking for R LE. (Not Met) Planned Interventions, Frequency, and Duration: 2x/week, 4 weeks Total Number of Visits Planned: 8 Patient to be seen for Therapeutic exercise ([id number]), Manual therapy ([id number]), Self-correction management ([id number]) PLAN FOR NEXT VISIT: Continue with MLD, short stretch wrapping and facilitating appropriate compression garments. SUBJECTIVE: Patient Reason for Visit: Pt reports she has had the [employer] working nearby her home and today does not have any water in her home now. Functional Limitations: walking in the community (transfers) Pain: Pain Pain Level: 0 Post Treatment Pain Post Treatment Pain Level: 0 PROMIS Scales T-scores: mean of general population = 50. 5 points is clinically meaningfully difference Percentiles provide an indication of how the patient's score ranks in relation to the general population. Higher percentile rankings indicate better function/quality of life. 50th percentile is the average of the general population and indicates half of respondents had a worse score. OBJECTIVE MEASURES WITH LEVEL OF FUNCTION: Lymphedema Comment: Pt presents with wraps in place B LE. Dryness/Flaking of Skin Comments:: Dry skin and mild to minimal flaking R lower leg Lymphorrhea Comments:: Raw skin at anterolateral L lower leg with minimal dried drainage on stockinette. No visible drainage noted during treatment with skin exposed. Lower Extremity Circumferential Measurements R 1st toe (proximal phalanx): 9 R Metatarsal Phalangeal (MTP): 22.5 R Arch: 24 R 5 cm from floor: 29.5 cm R 10 cm from floor: 26 cm R 15 cm from floor: 33.5 cm R 20 cm from floor: 39.5 cm R 25 cm from floor: 42 cm R 30 cm from floor: 43.5 cm R 35 cm from floor: 45 cm R 40 cm from floor: 45 cm R 45 cm from floor: 50.1 cm (knee) R 50 cm from floor: 55 cm R 55 cm from floor: 59 cm L 1st toe (proximal phalanx): 7.5 L Metatarsal Phalangeal (MTP): 23 L Arch: 23.5 L 5 cm from floor: 30.5 cm L 10 cm from floor: 30 cm L 15 cm from floor: 48 cm L 20 cm from floor: 57.5 cm L 25 cm from floor: 60 cm L 30 cm from floor: 61.5 cm L 35 cm from floor: 59.5 cm L 40 cm from floor: 57 cm (knee) L 45 cm from floor: 61.5 cm L 50 cm from floor: 62.5 cm Affected Leg: Bilateral, Left Leg Larger Calculate Volume : Yes R Lower Extremity Volume: 7462 L Lower Extremity Volume: 40933 Difference in Volume: 3209 Difference in % : 43 TREATMENT: Manual Therapy: 1: MLD L LE sequence utilizing R inguino-axillary and anterior interinguinal anastamoses. Donned gloves for L lower leg sequence. Applied new stockinette, padding and short-stretch compression wraps to B lower legs to knees. 2: Reminded pt of the importance of obtaining a compression stocking for R leg to allow for improved hygiene and care of skin and to improve effectiveness of self-maintenance of R LE volume. Skilled Intervention: Manual skills to improve joint mobility, ROM, and decrease pain. Utilized anatomy knowledge of the therapist, and assessment of patient's response to intervention. Manual techniques to facilitate lymphatic dynamics and improve condition of tissue. Billing Manual TherapyTreatment Minutes: 57 Total Treatment Time Minutes (timed/untimed): 57 Grace Bonds PT documented in this [facility] [place] History of Present illness Narrative* Grace Bonds PT - 01/25/2023 2:29 PM EDT Episode Visit Count: 66 Therapist That Will Accept/Oversee The Plan Of Care: Grace Bonds Start of Care Date: 03/13/21 Onset Date: 02/20/21 (past several weeks) Plan of Care Certification Date: 01/04/23 Next Certification Due Date: 03/06/23 Patient Identified by Name and Date of : Yes REHABILITATION AND SPORTS THERAPY PHYSICAL THERAPY TREATMENT NOTE ASSESSMENT: Chema Koroma tolerated the session with no issues. She demonstrated difficulty with continued secondary sequelae in L lower leg involving skin and soft tissue. The patient will continue to benefit from ongoing skilled physical therapy to progress toward set goals. PLAN FOR NEXT VISIT: Continue with MLD, short stretch wrapping and facilitating appropriate compression garments. May add LE/decongestive exercises, time permitting if pt is willing. SUBJECTIVE: Patient Reason for Visit: Pt states she is having trouble lifting her leg she can't even get it up onto an ottoman. She feels less safe walking d/t difficulty advancing her L LE. Pain: Post Treatment Pain Post Treatment Pain Level: 0 OBJECTIVE MEASURES WITH LEVEL OF FUNCTION: Lymphedema Dryness/Flaking of Skin Comments:: Dry skin and mild to minimal flaking R lower leg Lymphorrhea Comments:: Raw skin at anterolateral L lower leg with minimal dried drainage on stockinette and some of first layer of padding. No visible drainage noted during treatment with skin exposed. TREATMENT: Therapeutic Exercise: 1: Reviewed with pt decongestive exercises that she was previously instructed in and she states shecan't do them. Encouraged pt to at least try to do them, even if her leg doesn't come up all the way, as she can still get some strengthening and decongestive benefits. She continues to state that itwon't work. Skilled Intervention: Patient was educated in proper exercise technique and purpose for exercises. Reviewed and educated patient on additions/changes for home exercise program. Skilled judgment was provided in selection of appropriate interventions. Patient education as noted. Manual Therapy: 1: Removed B LE compression wraps. MLD L LE sequence utilizing L inguino- axillary and anterior interinguinal anastamoses. Spent extra time for manual techniques at areas of fibrosis L LE.Donned gloves for L lower leg sequence. Applied new stockinette, padding and short-stretch compression wraps to B lower legs to knees. Skilled Intervention: Manual skills to improve joint mobility, ROM, and decrease pain. Utilized anatomy knowledge of the therapist, and assessment of patient's response to intervention. Manual techniques to facilitate lymphatic dynamics and improve condition of tissue. Self-Longterm Management: 1: Pt is using her quad cane to ambulate and has her home health nurse, Patrizia to assist her when going out of the house. Skilled Intervention: Skilled judgment in the selection of proper modification for activity of daily living/home management based on clinical presentation, deficits, and needs. Reviewed patient specific diagnosis in relation to activities of daily living/home management. Billing Therapeutic Exercise Treatment Minutes: 7 Manual TherapyTreatment Minutes: 55 Self-Care/Home Management Treatment Minutes: 3 Total Treatment Time Minutes (timed/untimed): 65 Grace Bonds PT documented in this encounterSelect [facility] [place] History of Present illness Narrative* Grace Bonds PT - 01/04/2023 3:02 PM EDT Episode Visit Count: 64 Therapist That Will Accept/Oversee The Plan Of Care: Grace Bonds Start of Care Date: 03/13/21 Onset Date: 02/20/21 (past several weeks) Plan of Care Certification Date: 01/04/23 Next Certification Due Date: 03/06/23 Patient Identified by Name and Date of : Yes REHABILITATION AND SPORTS THERAPY PHYSICAL THERAPY PROGRESS REPORT PLAN OF CARE UPDATE: Assessment: Chema Koroma demonstrates difficulty with L LE infection and improvements in reduction of volume L LE. She has progressed toward goals. Patient continues to present with impairments in edema management and soft tissue healing that interfere with . Current prognosis is Good due to: positive past response to therapy, Prognosis may be limited due to clinical presentation, multiple co- morbidities, chronic nature of impairments, limited support system . Pt would benefit from continued therapy,CDT treatment, to reduce limb volume, especially to promote healing of infection and skin/soft tissue. She will benefit from continued skilled therapy services to meet the updated goals for this planof care as noted below. Goals for Episode of Care: created on 03/13/21 through 05/14/21 Goals updated on 01/04/2023. Patient / family knowledgeable re: all pertinent aspects of CDT (Met) Patient / family independent with donning / doffing compression garment and proper wearing schedule and care of garment (Not Met) Patient / family independent with home exercise program (Met) Patient will decrease circumferential measurements by 0.5-13.0 cm in the following areas: B LE for decreased recurrence of infection, improved mobility, improved range of motion and allow appropriate fit in compressive garment. (Partially Met) Pt to demonstrate reduction of lymphorrhea to allow for wearing of custom compression garments. (Partially Met)-improved Pt will perform supine <> sit transfer independently. (Partially Met)requires assist to elevate L LE onto plinth Pt will ambulate with decreased effort. (Met) 10/06/22: Pt will demonstrate reduction in L LE fibrosis (intensity and area). (Partially Met) Patient Goals: To stop the draining and get the left leg smaller again. (Partially Met) 01/04/23: Pt will obtain appropriate fitting compression stocking for R LE. Planned Interventions, Frequency, and Duration: 2x/week, 8 weeks Total Number of Visits Planned: 16 Patient to be seen for Therapeutic exercise ([id number]), Manual therapy (20501), Self-correction management ([id number]) PLAN FOR NEXT VISIT: Pt to schedule for next week after starting the antibiotic for at least 48 hours before we resume MLD. Continue with compression wrapping and pt to obtain garment for R LE. SUBJECTIVE: Patient Reason for Visit: Pt reports she saw Dr. Benitez on Saturday and he prescribed heran antibiotic for infection in matt L lower leg. She has not taken it as she is picking it up from the pharmacy today. Pt's aid, Patrizia stating they are going to order compression stocking for R LE through a local vendor in [facility]. Pain: Pain Pain Level: 0 Post Treatment Pain Post Treatment Pain Level: 0 PROMIS Scales T-scores: mean of general population = 50. 5 points is clinically meaningfully difference Percentiles provide an indication of how the patient's score ranks in relation to the general population. Higher percentile rankings indicate better function/quality of life. 50th percentile is the average of the general population and indicates half of respondents had a worse score. OBJECTIVE MEASURES WITH LEVEL OF FUNCTION: Lymphedema Comment: Pt presents with wraps removed. Noticable odor present about L leg. Dryness/Flaking of Skin Comments:: Dry skin and mild to minimal flaking R lower leg Lymphorrhea Comments:: Raw skin at anterolateral L lower leg (Pt's aid washed her legs and feet prior to appt and stated there was dried fluid from seeping.) Lower Extremity Circumferential Measurements R 1st toe (proximal phalanx): 9 R Metatarsal Phalangeal (MTP): 22.5 R Arch: 23.5 R 5 cm from floor: 26 cm R 10 cm from floor: 22 cm R 15 cm from floor: 27.5 cm R 20 cm from floor: 36.5 cm R 25 cm from floor: 40.5 cm R 30 cm from floor: 44.5 cm R 35 cm from floor: 47.5 cm R 40 cm from floor: 45.5 cm R 45 cm from floor: 51 cm (knee) R 50 cm from floor: 56.5 cm R 55 cm from floor: 58 cm L 1st toe (proximal phalanx): 8 L Metatarsal Phalangeal (MTP): 23 L Arch: 24 L 5 cm from floor: 30 cm L 10 cm from floor: 31.5 cm L 15 cm from floor: 51 cm L 20 cm from floor: 58 cm L 25 cm from floor: 59.5 cm L 30 cm from floor: 59 cm L 35 cm from floor: 52 cm L 40 cm from floor: 59 cm Affected Leg: Bilateral, Left Leg Larger Calculate Volume : Yes R Lower Extremity Volume: 7282 L Lower Extremity Volume: 7478 Difference in Volume: 196 Difference in % : 2.69 TREATMENT: Manual Therapy: 1: Applied short stretch compression wraps to B lower legs with appropriate compression gradient and good AROM of ankles with wrap in place. Used gloves when workign with exposed skin of L LE. 2: Measured B LE limb volume for progress update. Discussed importance of starting the antibiotic as soon as possible. She was advised to schedule next appt for at least 48 hours after she has started the antibiotic. Skilled Intervention: Manual skills to improve joint mobility, ROM, and decrease pain. Utilized anatomy knowledge of the therapist, and assessment of patient's response to intervention. Manual techniques to facilitate lymphatic dynamics and improve condition of tissue. Billing Manual TherapyTreatment Minutes: 45 Total Treatment Time Minutes (timed/untimed): 45 Grace Bonds PT documented in this [facility]05-11-2023 Miscellaneous Notes* Telephone Encounter - Judith Au PA-C - 01/03/2023 10:37 AM EDT Ho bear No answer Left VM All attempts to reach the patient have been attempted. If patient would like to move forward with possible next steps then she may contact our department for triage questions and next steps. Judith Au PA-C. January 03, 2023 documented in this [facility]05-10-2023 Miscellaneous Notes* Telephone Encounter - Judith Au PA-C - 01/02/2023 1:05 PM EDT Ho bear No answer Left VM Lymphedema pool to continue to monitor. Judith Au PA-C. January 02, 2023 documented in this [facility]05-08-2023 Miscellaneous Notes* Telephone Encounter - Judith Au PA-C - 12/31/2022 3:51 PM EDT Called patient back No answer Lymphedema pool to continue to monitor. Judith Au PA-C December 31, 2022 documented in this [facility] [place] Miscellaneous Notes* Telephone Encounter - RUBA Novak - 12/31/2022 3:29 PM EDT Patient calling back Judith documented in this encounterSelect [facility] [place] History of Present illness Narrative* Grace Bonds, PT - 12/21/2022 2:35 PM EDT Episode Visit Count: 63 Therapist That Will Accept/Oversee The Plan Of Care: Grace Bonds Start of Care Date: 03/13/21 Onset Date: 02/20/21 (past several weeks) Plan of Care Certification Date: 12/07/22 Next Certification Due Date: 01/06/23 Patient Identified by Name and Date of : Yes REHABILITATION AND SPORTS THERAPY PHYSICAL THERAPY TREATMENT NOTE ASSESSMENT: Chemaanupama Koroma tolerated the session with no issues. She demonstrated difficulty with L LE soft tissue and skin condition and improvements in R LE volume. The patient will continue to benefit from ongoing skilled physical therapy to progress toward set goals. PLAN FOR NEXT VISIT: Continue MLD and short-stretch bandaging L LE. May continue wrapping of L LE until compression garment is obtained. SUBJECTIVE: Patient Reason for Visit: Pt reports she does not want to get the velcro wraps so talked with her aid, Patrizia, about getting the compression stockings from [facility]. Pain: Pain Pain Level: 0 Post Treatment Pain Post Treatment Pain Level: 0 OBJECTIVE MEASURES WITH LEVEL OF FUNCTION: Lymphedema Comment: Pt presents with wraps partially removed. Dried drainage present at L distal anterolaterallower leg. Dryness/Flaking of Skin Comments:: Dry skin and mild to minimal flaking R lower leg Lymphorrhea Comments:: L anterolateral distal lower leg with no visible drainage today, but dried drainage visible through 4x4 absorbent pads and stockinette. TREATMENT: Manual Therapy: 1: MLD L LE sequence utilizing L inguino-axillary and anterior interinguinal anastamoses. Spent extra time for manual techniques at areas of fibrosis L LE.Donned gloves for L lower leg sequence. Applied new stockinette, padding and short-stretch compression wraps to B lower legs to knees. 2: Again, discussed recommendations and importance of compression garments. Encouraged pt and her aid, Patrizia, to obtain compression stocking for R LE. Skilled Intervention: Manual skills to improve joint mobility, ROM, and decrease pain. Utilized anatomy knowledge of the therapist, and assessment of patient's response to intervention. Manual techniques to facilitate lymphatic dynamics and improve condition of tissue. Billing Manual TherapyTreatment Minutes: 60 Total Treatment Time Minutes (timed/untimed): 60 Grace Bonds PT documented in this encounter[facility] [place] History of Present illness Narrative* Grace Bonds PT - 12/14/2022 3:45 PM EDT Episode Visit Count: 62 Therapist That Will Accept/Oversee The Plan Of Care: Grace Bonds Start of Care Date: 03/13/21 Onset Date: 02/20/21 (past several weeks) Plan of Care Certification Date: 12/07/22 Next Certification Due Date: 01/06/23 Patient Identified by Name and Date of : Yes REHABILITATION AND SPORTS THERAPY PHYSICAL THERAPY TREATMENT NOTE ASSESSMENT: Chema Aubrey GarnerGa tolerated the session with no issues. She demonstrated difficulty with L LE volume and skin condition and improvements in R LE volume. The patient will continue to benefit from ongoing skilled physical therapy to progress toward set goals. PLAN FOR NEXT VISIT: Continue MLD and short-stretch bandaging L LE. May continue wrapping of L LE until compression garment is obtained. SUBJECTIVE: Patient Reason for Visit: Pt states her R ankle area has been itchy. Pain: Pain Pain Level: 0 Post Treatment Pain Post Treatment Pain Level: 0 OBJECTIVE MEASURES WITH LEVEL OF FUNCTION: Lymphedema Comment: Pt presents with wraps partially removed. Dried drainage present at L distal anterolaterallower leg. Dryness/Flaking of Skin Comments:: Dry skin and mild to minimal flaking B lower legs Lymphorrhea Comments:: L anterolateral distal lower leg with no visible drainage today, but dried drainage visible through first layer of padding. TREATMENT: Manual Therapy: 1: MLD B LE sequence utilizing inguino-axillary and anterior interinguinal anastamoses. Spent extratime for manual techniques at areas of fibrosis L LE.Donned gloves for L lower leg sequence. Applied new stockinette, padding and short-stretch compression wraps to B lower legs to knees. 2: Discussed options for compression garments for R LE with pt and her caregiver, Patrizia. Included knee high compression stocking, showed pt samples of [employer]id JuxtaFit and [employer] Ready Wrap, with explanations of abdias/doffing including use of a sock nina for stocking. Pt notes she previously had a velcro wrap, but did not wear them because she didn't like them. She states she doesn't think she'll be alble to wear stockings because they are hard for her hands to maneuver (don/doff) and doesn't think she can use a donning aid. Skilled Intervention: Manual skills to improve joint mobility, ROM, and decrease pain. Utilized anatomy knowledge of the therapist, and assessment of patient's response to intervention. Manual techniques to facilitate lymphatic dynamics and improve condition of tissue. Billing Manual TherapyTreatment Minutes: 65 Total Treatment Time Minutes (timed/untimed): 65 Grace Bonds PT documented in this encounterSelect [facility] [place] History of Present illness Narrative* Grace Bonds PT - 12/07/2022 2:32 PM EDT Episode Visit Count: 61 Therapist That Will Accept/Oversee The Plan Of Care: Grace Bonds Start of Care Date: 03/13/21 Onset Date: 02/20/21 (past several weeks) Plan of Care Certification Date: 12/07/22 Next Certification Due Date: 01/06/23 Patient Identified by Name and Date of : Yes REHABILITATION AND SPORTS THERAPY PHYSICAL THERAPY PROGRESS REPORT PLAN OF CARE UPDATE: Assessment: Chema Koroma demonstrates difficulty with L LE volume and skin/soft tissue condition, and walking in the community and improvements in transfers and walking in the community. She hasprogressed toward goals. Patient continues to present with impairments in edema management and softtissue condition that interfere with walking in the community (transfers) . Current prognosis is Good due to: positive past response to therapy, Prognosis may be limited due to multiple co- morbidities, chronic nature of impairments, decreased motivation, limited compliance with previous therapy, limited support system . Pt demonstrates improved B LE volume and R LE is ready for compression garment versus short-stretch wraps, but pt is resistant stating she doesn't think she can reach or managethem. Plan to trial with a sample JuxtaLite garment and assess if pt can don/doff independently. L LE with significant soft tissue deficits and volume, though has improved per measurements today. Pt limited in transportation to [facility]. Gave pt a list of phone numbers for vascular physicians to consult. She will benefit from continued skilled therapy services to meet the updated goals for this planof care as noted below. Goals for Episode of Care: created on 03/13/21 through 05/14/21 Goals updated on 12/07/2022. Patient / family knowledgeable re: all pertinent aspects of CDT (Met) Patient / family independent with donning / doffing compression garment and proper wearing schedule and care of garment (Not Met) Patient / family independent with home exercise program (Met) Patient will decrease circumferential measurements by 0.5-13.0 cm in the following areas: B LE for decreased recurrence of infection, improved mobility, improved range of motion and allow appropriate fit in compressive garment. (Partially Met) Pt to demonstrate reduction of lymphorrhea to allow for wearing of custom compression garments. (Partially Met)-improved Pt will perform supine <> sit transfer independently. (Partially Met)requires assist to elevate L LE onto plinth Pt will ambulate with decreased effort. (Met) 10/06/21: Pt will demonstrate reduction in L LE fibrosis (intensity and area). (Partially Met) Patient Goals: To stop the draining and get the left leg smaller again. (Partially Met) Planned Interventions, Frequency, and Duration: 1x/week, 8 weeks Total Number of Visits Planned: 16 Patient to be seen for Therapeutic exercise (25315), Manual therapy (75372), Self-correction management (79101) PLAN FOR NEXT VISIT: Continue with MLD and short-stretch bandaging. Facilitate pt obtaining garmentor velcro wrap for R LE. (Have pt trial don/doffing velcro compression for R LE.) SUBJECTIVE: Patient Reason for Visit: Pt states she was unable to come last week d/t transportationissues.. Functional Limitations: walking in the community (transfers) Pain: Pain Pain Level: 0 Post Treatment Pain Post Treatment Pain Level: 0 PROMIS Scales T-scores: mean of general population = 50. 5 points is clinically meaningfully difference Percentiles provide an indication of how the patient's score ranks in relation to the general population. Higher percentile rankings indicate better function/quality of life. 50th percentile is the average of the general population and indicates half of respondents had a worse score. OBJECTIVE MEASURES WITH LEVEL OF FUNCTION: Lymphedema Comment: Pt presents with wraps partially removed. Dried drainage present at L distal anterolaterallower leg. Dryness/Flaking of Skin Comments:: Dry skin and mild to moderate flaking B lower legs Lymphorrhea Comments:: L anterolateral distal lower leg with no visible drainage today, but dried drainage visible through all layers of bandaging. Lower Extremity Circumferential Measurements R 1st toe (proximal phalanx): 9 R Metatarsal Phalangeal (MTP): 22 R Arch: 23.5 R 5 cm from floor: 25.5 cm R 10 cm from floor: 21.5 cm R 15 cm from floor: 29 cm R 20 cm from floor: 35 cm R 25 cm from floor: 39 cm R 30 cm from floor: 41 cm R 35 cm from floor: 42.5 cm R 40 cm from floor: 44 cm (knee) R 45 cm from floor: 48.5 cm R 50 cm from floor: 48 cm R 55 cm from floor: 54 cm L 1st toe (proximal phalanx): 7.5 L Metatarsal Phalangeal (MTP): 22 L Arch: 23 L 5 cm from floor: 27.5 cm L 10 cm from floor: 30 cm L 15 cm from floor: 49 cm L 20 cm from floor: 55 cm L 25 cm from floor: 57 cm L 30 cm from floor: 58 cm L 35 cm from floor: 56 cm L 40 cm from floor: 53 cm (knee) L 45 cm from floor: 57.5 cm L 50 cm from floor: 58.5 cm Affected Leg: Bilateral, Left Leg Larger Calculate Volume : Yes R Lower Extremity Volume: 6322 L Lower Extremity Volume: 9636 Difference in Volume: 3314 Difference in % : 52.42 TREATMENT: Manual Therapy: 1: MLD B LE sequence utilizing inguino-axillary anastamoses. Spent extra time for manual techniquesat areas of fibrosis L LE.Donned gloves for L lower leg sequence. Applied new stockinette, padding and short-stretch compression wraps to B lower legs to knees. 2: Reccomended pt obtain compression stocking or velcro wrap (Juxtalite, etc.) for R LE. Skilled Intervention: Manual skills to improve joint mobility, ROM, and decrease pain. Utilized anatomy knowledge of the therapist, and assessment of patient's response to intervention. Billing Manual TherapyTreatment Minutes: 60 Total Treatment Time Minutes (timed/untimed): 60 Grace Bonds PT documented [facility] [place] Miscellaneous Notes* Telephone Encounter - Mohini Davila LPN - 12/06/2022 3:13 PM EDT Patient calling regarding lymphedema. Conferenced pt with main campus nitric acid plant operator Nata to assist with finding a dept/physician's office to discuss her needs. Mohini Davila LPN documented in this encounterSelect [facility] [place]03-31-[facility]23 History of Present illness Narrative* Grace Bonds PT - 11/23/2022 2:30 PM EDT Episode Visit Count: 60 Therapist That Will Accept/Oversee The Plan Of Care: Grace Bonds Start of Care Date: 03/13/21 Onset Date: 02/20/21 (past several weeks) Plan of Care Certification Date: 11/02/22 Next Certification Due Date: 12/03/22 Patient Identified by Name and Date of : Yes REHABILITATION AND SPORTS THERAPY PHYSICAL THERAPY TREATMENT NOTE ASSESSMENT: Chema Koroma tolerated the session with no issues. She demonstrated difficulty with L LE volume, skin condition, and drainage and improvements in R LE volume reduction. The patient will continue to benefit from ongoing skilled physical therapy to progress toward set goals. PLAN FOR NEXT VISIT: MLD B LE and short-stretch bandaging to achieve limb volume reduction goals. Recommend compression garment for R LE. SUBJECTIVE: Patient Reason for Visit: Pt reports she was without power last week and wasn't able tocome for her appt. Pain: Pain Pain Level: 0 Post Treatment Pain Post Treatment Pain Level: 0 OBJECTIVE MEASURES WITH LEVEL OF FUNCTION: Lymphedema Comment: Pt presents with wraps in place in fair condition. L distal lateral lower leg with a 2 inch radius of dried seepage on outer layer. Comments: R lower leg appears to be reduced well and maintaining well with current compression regimen. Would be appropriate for garment if pt can manage. Dryness/Flaking of Skin Comments:: Dry skin and mild to moderate flaking B lower legs Lymphorrhea Comments:: L anterolateral distal lower leg with no visible drainage today, but dried drainage visible through all layers of bandaging. TREATMENT: Manual Therapy: 1: MLD B LE sequence utilizing inguino-axillary anastamoses. Spent extra time for manual techniquesat areas of fibrosis L LE.Donned gloves for L lower leg sequence. Applied new stockinette, padding and short-stretch compression wraps to B lower legs to knees. Skilled Intervention: Manual skills to improve joint mobility, ROM, and decrease pain. Utilized anatomy knowledge of the therapist, and assessment of patient's response to intervention. Manual techniques to facilitate lymphatic dynamics and improve condition of tissue. Billing Manual TherapyTreatment Minutes: 60 Total Treatment Time Minutes (timed/untimed): 60 Grace Bonds PT documented in this encounterSelect [facility] [place]03-17-[facility] History of Present illness Narrative* Grace Bonds PT - 11/09/2022 2:39 PM EDT Episode Visit Count: 59 Therapist That Will Accept/Oversee The Plan Of Care: Grace Bonds Start of Care Date: 03/13/21 Onset Date: 02/20/21 (past several weeks) Plan of Care Certification Date: 11/02/22 Next Certification Due Date: 12/03/22 Patient Identified by Name and Date of : Yes REHABILITATION AND SPORTS THERAPY PHYSICAL THERAPY TREATMENT NOTE ASSESSMENT: Chema Koroma tolerated the session with no issues. She demonstrated difficulty with continued edema and soft tissue changes L lower leg and improvements in R LE volume and skin condition. The patient will continue to benefit from ongoing skilled physical therapy to progress toward set goals. PLAN FOR NEXT VISIT: MLD B LE and short-stretch bandaging to achieve limb volume reduction goals and facilitate effective compression garments. SUBJECTIVE: Patient Reason for Visit: Pt reports she has been ill (digestive issues) all week and has not done much activity or eaten much. Pain: Pain Pain Level: 0 Post Treatment Pain Post Treatment Pain Level: 0 OBJECTIVE MEASURES WITH LEVEL OF FUNCTION: Lymphedema Dryness/Flaking of Skin Comments:: Dry skin and mild to moderate flaking B lower legs Lymphorrhea Comments:: L anterolateral distal lower leg with no visible fluid today. Dried drainagevisible on innermost layer (stockinette). TREATMENT: Manual Therapy: 1: MLD B LE sequence utilizing inguino-axillary anastamoses. Spent extra time for manual techniquesat areas of fibrosis L LE.Donned gloves for L lower leg sequence. Applied new stockinette, padding and short-stretch compression wraps to B lower legs to knees. Skilled Intervention: Manual skills to improve joint mobility, ROM, and decrease pain. Utilized anatomy knowledge of the therapist, and assessment of patient's response to intervention. Manual techniques to facilitate lymphatic dynamics and improve condition of tissue. Billing Manual TherapyTreatment Minutes: 55 Total Treatment Time Minutes (timed/untimed): 55 Grace Bonds PT documented in this encounterSelect [facility] [place]03-[facility]23 History of Present illness Narrative* Grace Bonds PT - 11/02/2022 2:50 PM EST Episode Visit Count: 58 Therapist That Will Accept/Oversee The Plan Of Care: Grace Bonds Start of Care Date: 03/13/21 Onset Date: 02/20/21 (past several weeks) Plan of Care Certification Date: 11/02/22 Next Certification Due Date: 12/03/22 Patient Identified by Name and Date of : Yes REHABILITATION AND SPORTS THERAPY PHYSICAL THERAPY PROGRESS REPORT PLAN OF CARE UPDATE: Assessment: Chema Koroma demonstrates difficulty with edema management and continued lymphorrhea and improvements in limb volume and soft tissue condition. She has progressed toward goals. Patient continues to present with impairments in edema management and skin and soft tissue condition thatinterfere with walking in the community . Current prognosis is Good due to: positive past response to therapy, Prognosis may be limited due to, current objective clinical presentation multiple co- morbidities, chronic nature of impairments, limited support system . She will benefit from continued skilled therapy services to meet the updated goals for this plan of care as noted below. Goals for Episode of Care: created on 03/13/21 through 05/14/21 Goals updated on 11/02/2022. Patient / family knowledgeable re: all pertinent aspects of CDT (Met) Patient / family independent with donning / doffing compression garment and proper wearing schedule and care of garment (Not Met) Patient / family independent with home exercise program (Met) Patient will decrease circumferential measurements by 0.5-13.0 cm in the following areas: B LE for decreased recurrence of infection, improved mobility, improved range of motion and allow appropriate fit in compressive garment. (Not Met) Pt to demonstrate reduction of lymphorrhea to allow for wearing of custom compression garments. (Partially Met)-improved Pt will perform supine <> sit transfer independently. (Partially Met)requires assist to elevate L LE onto plinth Pt will ambulate with decreased effort. (Met) 10/06/21: Pt will demonstrate reduction in L LE fibrosis (intensity and area). (Partially Met) Patient Goals: To stop the draining and get the left leg smaller again. (Partially Met) Planned Interventions, Frequency, and Duration: 1x/week, 4 weeks Total Number of Visits Planned: 4 Patient to be seen for Therapeutic exercise (66799), Manual therapy (82928), Self-correction management (19324) PLAN FOR NEXT VISIT: MLD B LE and short-stretch bandaging to achieve limb volume reduction goals and facilitate effective compression garment for self-managment after discharge. SUBJECTIVE: Patient Reason for Visit: Pt states she is having trouble keeping her L leg elevated asit slides off of her ottoman. Encouraged her to prop with pillows or whatever she can to increase time that it is elevated. Functional Limitations: walking in the community Pain: Pain Pain Level: 0 Post Treatment Pain Post Treatment Pain Level: 0 PROMIS Scales T-scores: mean of general population = 50. 5 points is clinically meaningfully difference Percentiles provide an indication of how the patient's score ranks in relation to the general population. Higher percentile rankings indicate better function/quality of life. 50th percentile is the average of the general population and indicates half of respondents had a worse score. OBJECTIVE MEASURES WITH LEVEL OF FUNCTION: Lymphedema Comment: Pt presents with wraps just recently removed. Dryness/Flaking of Skin Comments:: Dry skin and mild to moderate flaking B lower legs Lymphorrhea Comments:: L anterolateral distal lower leg with clear fluid present upon palpation, but not seeping out on it's own. Dried drainage visible on innermost layer (stockinette). Lower Extremity Circumferential Measurements R 1st toe (proximal phalanx): 9 R Metatarsal Phalangeal (MTP): 21 R Arch: 23 R 5 cm from floor: 26 cm R 10 cm from floor: 25.5 cm R 15 cm from floor: 33 cm R 20 cm from floor: 40.5 cm R 25 cm from floor: 41 cm R 30 cm from floor: 41 cm R 35 cm from floor: 40 cm R 40 cm from floor: 44 cm (knee) R 45 cm from floor: 46 cm R 50 cm from floor: 52 cm R 55 cm from floor: 56 cm L 1st toe (proximal phalanx): 7.5 L Metatarsal Phalangeal (MTP): 22 L Arch: 22.5 L 5 cm from floor: 27.5 cm L 10 cm from floor: 32 cm L 15 cm from floor: 50.5 cm L 20 cm from floor: 58 cm L 25 cm from floor: 60.5 cm L 30 cm from floor: 59.5 cm L 35 cm from floor: 57 cm L 40 cm from floor: 54.5 cm (knee) L 45 cm from floor: 56.5 cm L 50 cm from floor: 56 cm Affected Leg: Bilateral, Left Leg Larger Calculate Volume : Yes R Lower Extremity Volume: 6757 L Lower Extremity Volume: 26832 Difference in Volume: 3363 Difference in % : 49.77 TREATMENT: Manual Therapy: 1: MLD B LE sequence utilizing inguino-axillary anastamoses. Spent extra time for manual techniquesat areas of fibrosis L LE.Donned gloves for L lower leg sequence. Applied new stockinette, padding and short-stretch compression wraps to B lower legs to knees. 2: Discussed benefits of velcro compression wraps versus bandaging. Pt noting she used to have a compression pump at home, but she is not sure where it got to. Skilled Intervention: Manual skills to improve joint mobility, ROM, and decrease pain. Utilized anatomy knowledge of the therapist, and assessment of patient's response to intervention. Manual techniques to facilitate lymphatic dynamics and improve condition of tissue. Billing Manual TherapyTreatment Minutes: 60 Total Treatment Time Minutes (timed/untimed): 60 Grace Bonds PT documented in this encounterSelect [facility] [place]02-27-2023 History of Present illness Narrative* Grace Bonds PT - 10/22/2022 4:26 PM EST Episode Visit Count: 57 Therapist That Will Accept/Oversee The Plan Of Care: Grace Bonds Start of Care Date: 03/13/21 Onset Date: 02/20/21 (past several weeks) Plan of Care Certification Date: 10/05/22 Next Certification Due Date: 11/02/22 Patient Identified by Name and Date of : Yes REHABILITATION AND SPORTS THERAPY PHYSICAL THERAPY TREATMENT NOTE ASSESSMENT: Chema Koroma tolerated the session with no issues. She demonstrated improvements in R lower leg volume reduction. The patient will continue to benefit from ongoing skilled physical therapy to progress toward set goals. PLAN FOR NEXT VISIT: MLD B LE and short-stretch bandaging to achieve limb volume reduction goals. SUBJECTIVE: Patient Reason for Visit: Pt reporting she is trying to keep her legs elevated when sitting at home. Pain: Pain Pain Level: 0 Post Treatment Pain Post Treatment Pain Level: 0 OBJECTIVE MEASURES WITH LEVEL OF FUNCTION: Lymphedema Comment: Pt presents with wraps just recently removed. Comments: R lower leg appears to be reduced in volume from previous session. Dryness/Flaking of Skin Comments:: Dry skin and mild to moderate flaking B lower legs Lymphorrhea Comments:: L anterolateral lower leg with mild amount of clear fluid seeping from no particular opening. Dried drainage visible on innermost layer (stockinette). TREATMENT: Manual Therapy: 1: MLD B LE sequence utilizing inguino-axillary anastamoses. Spent extra time for manual techniquesat areas of fibrosis L LE.Donned gloves for L lower leg sequence. Applied new stockinette, padding and short-stretch compresison wraps to B lower legs to knees. Skilled Intervention: Manual skills to improve joint mobility, ROM, and decrease pain. Utilized anatomy knowledge of the therapist, and assessment of patient's response to intervention. Manual techniques to facilitate lymphatic dynamics and improve condition of tissue. Billing Manual TherapyTreatment Minutes: 62 Total Treatment Time Minutes (timed/untimed): 62 Grace Bonds PT documented in this encounterSelect [facility] [place]02-17-2023 Miscellaneous Notes* Telephone Encounter - Tammy Adam RN - 10/12/2022 3:36 PM EST Patient stopped by office and was informed of results below. Patient verbalized understanding. She continues with pain and states it's especially worse at night. Asking for further advice. * Telephone Encounter - Tammy Adam RN - 10/11/2022 4:11 PM EST Second attempt to contact patient. Left VM to contact office. * Telephone Encounter - Tammy Adam RN - 10/04/2022 4:17 PM EST Left pt VM to contact office to inform of the below. * Telephone Encounter - Letty Arteaga RN - 09/13/2022 1:13 PM EST Attempted to call patient, both numbers on her chart are the same, when dialed it states The number has calling restrictions that have prevented the completion of the call. When I attempted to call Patrizia, her alternate truck driver salesperson, it went straight to voicemail where there was no name. * Telephone Encounter - Radha Wood - 09/12/2022 4:37 PM EST Please call patient to inform her that her xrays are unremarkable. No fracture noted. Continue withstretching as we discussed Radha Wood DPM documented in this encounterSelect [facility] [place]-17-2023 History of Present illness Narrative* Grace Bonds, PT - 10/12/2022 2:33 PM EST Episode Visit Count: 56 Therapist That Will Accept/Oversee The Plan Of Care: Grace Bonds Start of Care Date: 03/13/21 Onset Date: 02/20/21 (past several weeks) Plan of Care Certification Date: 10/05/22 Next Certification Due Date: 11/02/22 Patient Identified by Name and Date of : Yes REHABILITATION AND SPORTS THERAPY PHYSICAL THERAPY TREATMENT NOTE ASSESSMENT: Chema B Ga tolerated the session with no issues. She demonstrated improvements in L lower leg skin and soft tissue condition with decreased lymphorrhea. The patient will continue to benefit from ongoing skilled physical therapy to progress toward set goals. PLAN FOR NEXT VISIT: Continue MLD and short-stretch wrapping. Facilitate pt obtaining new compression garments to improve effectiveness of self-managment following discharge. SUBJECTIVE: Patient Reason for Visit: Pt states her legs are feeling ok. She has not noticed any seeping through her wraps. She notes she has not been outside to walk as it has been windy and she is afraid she will fall. Pain: Pain Pain Level: 0 Post Treatment Pain Post Treatment Pain Level: 0 OBJECTIVE MEASURES WITH LEVEL OF FUNCTION: Lymphedema Comment: Pt presents today with wraps still in place B lower legs. Dryness/Flaking of Skin Comments:: Dry skin and moderate flaking L>R lower legs Lymphorrhea Comments:: L anterolateral lower leg (distal third) with 2 smaller areas of moderate clear fluid seeping. No openings in the skin noted and color is normal. After wraps were removed therewas some dried drainage noted on the inner-most layer of padding L lower leg. TREATMENT: Manual Therapy: 1: MLD B LE sequence utilizing inguino-axillary anastamoses. Spent extra time for manual techniquesat areas of fibrosis L LE.Donned gloves for L lower leg sequence. Applied new stockinette, padding and short-stretch compresison wraps to B lower legs to knees. Skilled Intervention: Manual skills to improve joint mobility, ROM, and decrease pain. Utilized anatomy knowledge of the therapist, and assessment of patient's response to intervention. Manual techniques to facilitate lymphatic dynamics and improve condition of tissue. Billing Manual TherapyTreatment Minutes: 60 Total Treatment Time Minutes (timed/untimed): 60 Grace Bonds PT documented in this encounterSelect [facility] [place] History of Present illness Narrative* Grace Bonds PT - 10/05/2022 4:08 PM EST Episode Visit Count: 55 Therapist That Will Accept/Oversee The Plan Of Care: Grace Bonds Start of Care Date: 03/13/21 Onset Date: 02/20/21 (past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 indication of how the patient's score ranks in relation to the general population. Higher percentile rankings indicate better function/quality of life. 50th percentile is the average of the general population and indicates half of respondents had a worse score. OBJECTIVE MEASURES WITH LEVEL OF FUNCTION: Lymphedema Comment: Pt presents with compression wraps removed just before appt and clean supplies in tow. Dryness/Flaking of Skin Comments:: moderate flaking of skin L>R lower legs Lymphorrhea Comments:: no drainage, but small area of dampness palpable with pressure lateral L lower leg. TREATMENT: Manual Therapy: 1: MLD B LE sequence utilizing inguino-axillary anastamoses. Dongurvinder gloves for L lower leg sequence. Applied short-stretch wraps to B lower legs to knees. Skilled Intervention: Manual skills to improve joint mobility, ROM, and decrease pain. Utilized anatomy knowledge of the therapist, and assessment of patient's response to intervention. Manual techniques to facilitate lymphatic dynamics and improve condition of tissue. Self-Longterm Management: 1: Strongly encouraged pt to obtain compression garment for R LE. Discussed compression options forL LE again and recommended a velcro wrap (Reduction Kit, Juxtafit, etc.). Pt notes she had these previously, but does not know where they are. She would like to look more before purchasing new ones. Skilled Intervention: Skilled judgment in the selection of proper modification for activity of daily living/home management based on clinical presentation, deficits, and needs. Reviewed patient specific diagnosis in relation to activities of daily living/home management. Billing KX Modifier : Therapist attests that services rendered are medically necessary. Manual TherapyTreatment Minutes: 45 Self-Care/Home Management Treatment Minutes: 15 Total Treatment Time Minutes (timed/untimed): 60 Grace Bonds PT documented [facility] [place] History of Present illness Narrative* Grace Bonds PT - 07/13/2022 3:48 PM EST Episode Visit Count: 50 Therapist That Will Accept/Oversee The Plan Of Care: Grace Bonds Start of Care Date: 03/13/21 Onset Date: 02/20/21 (past several weeks) Plan of Care Certification Date: 05/25/22 Next Certification Due Date: 06/24/22 Patient Identified by Name and Date of : Yes REHABILITATION AND SPORTS THERAPY PHYSICAL THERAPY TREATMENT NOTE ASSESSMENT: Chema Koroma tolerated the session with no issues. She demonstrated difficulty with continued weeping L LE and improvements in skin condition and mobility. The patient will continue to benefit from ongoing skilled physical therapy for reassessment by supervising therapist. PLAN FOR NEXT VISIT: POC update. SUBJECTIVE: Patient Reason for Visit: Pt with no specific complaints today. She was able to get a new pair of shoes with a wider toe box so they are much more comfortable. Pain: Pain Pain Level: 0 Post Treatment Pain Post Treatment Pain Level: 0 OBJECTIVE MEASURES WITH LEVEL OF FUNCTION: Lymphedema Comment: Pt presents with compression wraps on both legs. Supplies in tow. Dryness/Flaking of Skin Comments:: moderate flaking of skin L>R lower legs Lymphorrhea Comments:: no drainage, but small area of dampness palpable with pressure lateral L lower leg. TREATMENT: Manual Therapy: 1: Removed B compression wraps prior to initiating MLD for L LE sequence utilizing L iguinoaxillaryanastamosis. Applied short-stretch bandaging to B foot to knee with stockinette, Artiflex padding and Comprilan bandages. Skilled Intervention: Manual skills to improve joint mobility, ROM, and decrease pain. Utilized anatomy knowledge of the therapist, and assessment of patient's response to intervention. Manual techniques to facilitate lymphatic dynamics and improve condition of tissue. Billing KX Modifier : Therapist attests that services rendered are medically necessary. Manual TherapyTreatment Minutes: 60 Total Treatment Time Minutes (timed/untimed): 60 Grace Bonds PT documented in this encounter[facility] [place] History of Present illness Narrative* Grace Bonds PT - 07/06/2022 2:42 PM EST Episode Visit Count: 49 Therapist That Will Accept/Oversee The Plan Of Care: Grace Bonds Start of Care Date: 03/13/21 Onset Date: 02/20/21 (past several weeks) Plan of Care Certification Date: 05/25/22 Next Certification Due Date: 06/24/22 Patient Identified by Name and Date of : Yes REHABILITATION AND SPORTS THERAPY PHYSICAL THERAPY TREATMENT NOTE ASSESSMENT: Chema Koroma tolerated the session with no issues. She demonstrated difficulty with L LE continues to have area of weeping and improvements in R LE volume and tissue condition. The patient will continue to benefit from ongoing skilled physical therapy to progress toward set goals. PLAN FOR NEXT VISIT: Continue with L LE MLD and short-stretch wrapping B. SUBJECTIVE: Patient Reason for Visit: Pt stating she had to cancel last week because her construction driver wassick and no one else could take her. She notes she is applying for her Medicare card and is waitingon this before she purchases compression garments. Pain: Pain Pain Level: 0 Post Treatment Pain Post Treatment Pain Level: 0 OBJECTIVE MEASURES WITH LEVEL OF FUNCTION: Lymphedema Comment: Pt presents with compression wraps on both legs. Supplies in tow. Dryness/Flaking of Skin Comments:: moderate flaking of skin L>R lower legs Lymphorrhea Comments:: no drainage, but small area of dampness palpable with pressure lateral L lower leg. TREATMENT: Manual Therapy: 1: Removed B compression wraps prior to initiating MLD for L LE sequence utilizing L iguinoaxillaryanastamosis. Applied short-stretch bandaging to B foot to knee with stockinette, Artiflex padding and Comprilan bandages. Skilled Intervention: Manual skills to improve joint mobility, ROM, and decrease pain. Utilized anatomy knowledge of the therapist, and assessment of patient's response to intervention. Manual techniques to facilitate lymphatic dynamics and improve condition of tissue. Billing KX Modifier : Therapist attests that services rendered are medically necessary. Manual TherapyTreatment Minutes: 60 Total Treatment Time Minutes (timed/untimed): 60 Grace Bonds PT documented in this [facility] [place] History of Present illness Narrative* Grace Bonds PT - 06/15/2022 2:22 PM EDT Episode Visit Count: 47 Therapist That Will Accept/Oversee The Plan Of Care: Grace Bonds Start of Care Date: 03/13/21 Onset Date: 02/20/21 (past several weeks) Plan of Care Certification Date: 05/25/22 Next Certification Due Date: 06/24/22 Patient Identified by Name and Date of : Yes REHABILITATION AND SPORTS THERAPY PHYSICAL THERAPY TREATMENT NOTE ASSESSMENT: Chema Koroma tolerated the session with no issues. She demonstrated improvements in L LE soft tissue condition. The patient will continue to benefit from ongoing skilled physical therapy for reassessment by supervising therapist. PLAN FOR NEXT VISIT: POC update. SUBJECTIVE: Patient Reason for Visit: Pt reports she was unable to obtain a compression garment yetas she does not have reliable transportation. She states she was able to walk across the street to the post office once this week. Pain: Pain Pain Level: 0 Post Treatment Pain Post Treatment Pain Level: 0 OBJECTIVE MEASURES WITH LEVEL OF FUNCTION: Lymphedema Comment: Pt with compression wraps on her legs. Fibrosis Comments:: Improved fibrosis around periphery today. Dryness/Flaking of Skin Comments:: moderate flaking of skin L>R lower legs Lymphorrhea Comments:: no drainage TREATMENT: Therapeutic Exercise: 1: B LE SLR 2x 10each, with minimal assist for L LE 2: B heel slides 2x 10 each leg Skilled Intervention: Patient was educated in proper exercise technique and purpose for exercises. Reviewed and educated patient on additions/changes for home exercise program. Skilled judgment was provided in selection of appropriate interventions. Correct performance of therapeutic exercises was facilitated with verbal and visual cuing. Patient education as noted. Manual Therapy: 1: MLD for B LE sequence utilizing L iguinoaxillary anastamosis. Applied short- stretch bandaging toB foot to knee with stockinette, Artiflex padding and Comprilan bandages. Skilled Intervention: Manual skills to improve joint mobility, ROM, and decrease pain. Utilized anatomy knowledge of the therapist, and assessment of patient's response to intervention. Manual techniques to facilitate lymphatic dynamics and improve condition of tissue. Billing KX Modifier : Therapist attests that services rendered are medically necessary. Therapeutic Exercise Treatment Minutes: 10 Manual TherapyTreatment Minutes: 50 Total Treatment Time Minutes (timed/untimed): 60 Grace Bonds PT documented in this encounter[facility] [place] History of Present illness Narrative* Grace Bonds PT - 06/08/2022 2:36 PM EDT Episode Visit Count: 46 Therapist That Will Accept/Oversee The Plan Of Care: Grace Bonds Start of Care Date: 03/13/21 Onset Date: 02/20/21 (past several weeks) Plan of Care Certification Date: 05/25/22 Next Certification Due Date: 06/24/22 Patient Identified by Name and Date of : Yes REHABILITATION AND SPORTS THERAPY PHYSICAL THERAPY TREATMENT NOTE ASSESSMENT: Chema Koroma tolerated the session with no issues. She demonstrated difficulty with continued soft tissue fibrosis L lower leg and difficulty obtaining compression stockings, and improvements in independent transfers. The patient will continue to benefit from ongoing skilled physical therapy to progress toward set goals. PLAN FOR NEXT VISIT: Continue with MLD and short stretch wrapping. SUBJECTIVE: Patient Reason for Visit: Pt states she stopped in to a local health supply vendor to get compression stockings and did not get any because they thought that she wouldn't be able to get them on and off. She notes she is going to stop at a local [facility] to see what they have there. Pain: Pain Pain Level: 0 Post Treatment Pain Post Treatment Pain Level: 0 OBJECTIVE MEASURES WITH LEVEL OF FUNCTION: Lymphedema Comment: Pt with compression wraps on her legs. Fibrosis Comments:: L mid to distal anterolateral lower leg Dryness/Flaking of Skin Comments:: moderate flaking of skin L>R lower legs Lymphorrhea Comments:: no drainage Gait Gait Observation: Pt performed transfers independently today. TREATMENT: Manual Therapy: 1: MLD for B LE sequence utilizing L iguinoaxillary anastamosis. Applied short- stretch bandaging toB foot to knee with stockinette, Artiflex padding and Comprilan bandages. Skilled Intervention: Manual skills to improve joint mobility, ROM, and decrease pain. Utilized anatomy knowledge of the therapist, and assessment of patient's response to intervention. Manual techniques to facilitate lymphatic dynamics and improve condition of tissue. Billing KX Modifier : Therapist attests that services rendered are medically necessary. Manual TherapyTreatment Minutes: 55 Total Treatment Time Minutes (timed/untimed): 55 Grace Bonds PT documented in this encounter[facility] [place] History of Present illness Narrative* Grace Bonds PT - 06/01/2022 3:27 PM EDT Episode Visit Count: 45 Therapist That Will Accept/Oversee The Plan Of Care: Grace Bonds Start of Care Date: 03/13/21 Onset Date: 02/20/21 (past several weeks) Plan of Care Certification Date: 05/25/22 Next Certification Due Date: 06/24/22 Patient Identified by Name and Date of : Yes REHABILITATION AND SPORTS THERAPY PHYSICAL THERAPY TREATMENT NOTE ASSESSMENT: Chema Koroma tolerated the session with no issues. She demonstrated difficulty with continued firmness and intermittent drainage and improvements in decreased flaking of skin and soft tissue condition. The patient will continue to benefit from ongoing skilled physical therapy to progress toward set goals. PLAN FOR NEXT VISIT: Continue with MLD and short stretch wrapping. SUBJECTIVE: Patient Reason for Visit: Pt states she was not able to see her PCP this week as she had no one to drive her. She states she is now scheduled on Saturday. She noted some drainage L loaterallower leg when she washed them this morning. Pain: Pain Pain Level: 0 Post Treatment Pain Post Treatment Pain Level: 0 OBJECTIVE MEASURES WITH LEVEL OF FUNCTION: Lymphedema Comment: Pt without anything on legs today as she brings all supplies with her. Fibrosis Comments:: L mid to distal anterolateral lower leg Dryness/Flaking of Skin Comments:: moderate flaking of skin L>R lower legs Lymphorrhea Comments:: L anterolateral lower leg moist with pressure, but no visible draining or seeping. Gait Gait Observation: Pt required min assist to lift L LE onto plinth during sit to supine. Independentsupine to sit. Pt ambulates independently using quad cane. TREATMENT: Therapeutic Exercise: 1: R LE SLR x 10 with difficulty Skilled Intervention: Patient was educated in proper exercise technique and purpose for exercises. Reviewed and educated patient on additions/changes for home exercise program. Provided written instruction for home exercise program to facilitate proper performance and compliance. Correct performance of therapeutic exercises was facilitated with verbal cuing. Patient education as noted. Manual Therapy: 1: MLD for B LE sequence utilizing L iguinoaxillary anastamosis. Applied short- stretch bandaging toB foot to knee with stockinette, Artiflex padding and Comprilan bandages. Skilled Intervention: Manual skills to improve joint mobility, ROM, and decrease pain. Utilized anatomy knowledge of the therapist, and assessment of patient's response to intervention. Manual techniques to facilitate lymphatic dynamics and improve condition of tissue. Billing KX Modifier : Therapist attests that services rendered are medically necessary. Manual TherapyTreatment Minutes: 60 Total Treatment Time Minutes (timed/untimed): 60 Grace Bonds PT documented in this encounter[facility] [place] History of Present illness Narrative* Grace Bonds PT - 05/25/2022 3:55 PM EDT Episode Visit Count: 44 Therapist That Will Accept/Oversee The Plan Of Care: Chrispranav Grace Start of Care Date: 03/13/21 Onset Date: 02/20/21 (past several weeks) Plan of Care Certification Date: 05/25/22 Next Certification Due Date: 06/24/22 Patient Identified by Name and Date of : Yes REHABILITATION AND SPORTS THERAPY PHYSICAL THERAPY PROGRESS REPORT PLAN OF CARE UPDATE: Assessment: Chema Koroma demonstrates difficulty with L LE limb volume and soft tissue condition, and walking and improvements in transfers and R LE volume and soft tissue condition. She hasprogressed toward goals. Patient continues to present with impairments in edema management, gait, and tissue condition that interfere with walking in the community;physical activities . Current prognosis is Good due to: positive past response to therapy;Prognosis may be limited due to multiple co- morbidities;chronic nature of impairments;limited support system . Pt is progressing slowly with limited transportation resulting in reduced frequency of treatments. R LE continues to fluctuate, but is more manageable compared to L LE which continues to have significant edema and soft tissue condition. She will benefit from continued skilled therapy services to meet the updated goals for this plan of care as noted below. Goals for Episode of Care: created on 03/13/21 through 05/14/21 Goals updated on 05/25/2022. Patient / family knowledgeable re: all pertinent aspects of CDT (Met) Patient / family independent with donning / doffing compression garment and proper wearing schedule and care of garment (Not Met) Patient / family independent with home exercise program (Met) Patient will decrease circumferential measurements by 0.5-13.0 cm in the following areas: B LE for decreased recurrence of infection, improved mobility, improved range of motion and allow appropriate fit in compressive garment. (Partially Met) Pt to demonstrate reduction of lymphorrhea to allow for wearing of custom compression garments. (Met) Pt will perform supine <> sit transfer independently. (Partially Met)requires assist to elevate L LE onto plinth Pt will ambulate with decreased effort. (Met) 10/06/21: Pt will demonstrate reduction in L LE fibrosis (intensity and area). (Partially Met) Patient Goals: To stop the draining and get the left leg smaller again. (Partially Met) Planned Interventions, Frequency, and Duration: 1x/week, 4 weeks Total Number of Visits Planned: 4 Patient to be seen for Therapeutic exercise ([id number]);Manual therapy (43497);Self- correction management ([id number]) PLAN FOR NEXT VISIT: Continue with MLD and short stretch wrapping. Focus MLD mostly on L LE. Recommend pt pursue compression garment or velcro wraps for home management. SUBJECTIVE: Patient Reason for Visit: Pt reports she feels that her legs are more fluid filled again. Notes she notices how they feel when she walks. Functional Limitations: walking in the community;physical activities Pain: Pain Pain Level: 0 Post Treatment Pain Post Treatment Pain Level: 0 PROMIS Scales T-scores: mean of general population = 50. 5 points is clinically meaningfully difference Percentiles provide an indication of how the patient's score ranks in relation to the general population. Higher percentile rankings indicate better function/quality of life. 50th percentile is the average of the general population and indicates half of respondents had a worse score. T-scores: mean of general population = 50. 5 points is clinically meaningfully difference Percentiles provide an indication of how the patient's score ranks in relation to the general population. Higher percentile rankings indicate better function/quality of life. 50th percentile is the average of the general population and indicates half of respondents had a worse score. OBJECTIVE MEASURES WITH LEVEL OF FUNCTION: Lymphedema Comment: Pt presents wtih wraps in place and extra supplies in tow. She states she feels matt knee injections were helpful in that she is not as painful when getting up from the chair and walking on that leg. Fibrosis Comments:: L distal anterolateral lower leg Dryness/Flaking of Skin Comments:: moderate flaking of skin B lower legs Lymphorrhea Comments:: L anterolateral lower leg moist with pressure, but no visible draining or seeping. Gait Gait Observation: Pt required min assist to lift L LE onto plinth during sit to supine. Independentsupine to sit. Pt ambulates independently using quad cane. TREATMENT: Therapeutic Exercise: 1: R LE SLR x 10 with difficulty 2: B heel slides x 10 each leg Skilled Intervention: Patient was educated in proper exercise technique and purpose for exercises. Reviewed and educated patient on additions/changes for home exercise program. Advised pt (again) to obtain compression stocking for R LE to improve edema management independently. Skilled judgment was provided in selection of appropriate interventions. Correct performance of therapeutic exercises was facilitated with verbal, visual, and tactile cuing. Patient education as noted. Manual Therapy: 1: MLD for B LE sequence utilizing L iguinoaxillary anastamosis. Applied short- stretch bandaging toB foot to knee with stockinette, Artiflex padding and Comprilan bandages. Skilled Intervention: Manual skills to improve joint mobility, ROM, and decrease pain. Utilized anatomy knowledge of the therapist, and assessment of patient's response to intervention. Manual techniques to facilitate lymphatic dynamics and improve condition of tissue. Billing KX Modifier : Therapist attests that services rendered are medically necessary. Manual TherapyTreatment Minutes: 60 Total Treatment Time Minutes (timed/untimed): 60 Grace Bonds PT documented in this encounterSelect [facility] [place] History of Present illness Narrative* Grace Bonds PT - 05/23/2022 1:05 PM EDT Episode Visit Count: 43 Therapist That Will Accept/Oversee The Plan Of Care: Grace Bonds Start of Care Date: 03/13/21 Onset Date: 02/20/21 (past several weeks) Plan of Care Certification Date: 03/19/22 Next Certification Due Date: 05/20/22 Patient Identified by Name and Date of : Yes REHABILITATION AND SPORTS THERAPY PHYSICAL THERAPY TREATMENT NOTE ASSESSMENT: Chema Koroma tolerated the session with no issues. She demonstrated no L LE drainage today. The patient will continue to benefit from ongoing skilled physical therapy to progress toward set goals. PLAN FOR NEXT VISIT: May resume LE exercises next visit per pt with no further knee joint injections. Continue MLD and short-stretch wrap. SUBJECTIVE: Patient Reason for Visit: Pt noting completed final R knee injection and is to refrain from exercises again today. Pain: Pain Pain Level: 0 Post Treatment Pain Post Treatment Pain Level: 0 OBJECTIVE MEASURES WITH LEVEL OF FUNCTION: Lymphedema Comment: Pt presents wtih wraps in place and extra supplies in tow. Fibrosis Comments:: L distal anterolateral lower leg Dryness/Flaking of Skin Comments:: moderate flaking of skin B lower legs Lymphorrhea Comments:: Small area lateral lower leg tahira tis moist with pressure, but no visible fluid or seeping. Lower Extremity Circumferential Measurements R Metatarsal Phalangeal (MTP): 21 R Arch: 22.5 R 5 cm from floor: 29 cm R 10 cm from floor: 26 cm R 15 cm from floor: 35 cm R 20 cm from floor: 41 cm R 25 cm from floor: 43 cm R 30 cm from floor: 42 cm R 35 cm from floor: 43 cm R 40 cm from floor: 46 cm (knee) R 45 cm from floor: 47 cm R 50 cm from floor: 52.5 cm R 55 cm from floor: 55 cm L Metatarsal Phalangeal (MTP): 22 L Arch: 23 L 5 cm from floor: 31 cm L 10 cm from floor: 30 cm L 15 cm from floor: 50.5 cm L 20 cm from floor: 56 cm L 25 cm from floor: 58.5 cm L 30 cm from floor: 59 cm L 35 cm from floor: 54 cm (knee) L 40 cm from floor: 60 cm L 45 cm from floor: 59 cm L 50 cm from floor: 60 cm Gait Gait Observation: Pt required min assist to lift L LE onto plinth during sit to supine. Independentsupine to sit. Pt ambulates independently using quad cane. TREATMENT: Manual Therapy: 1: MLD for L LE sequence utilizing L iguinoaxillary anastamosis. Applied short- stretch bandaging toB foot to knee with stockinette, Artiflex padding and Comprilan bandages. Skilled Intervention: Manual skills to improve joint mobility, ROM, and decrease pain. Utilized anatomy knowledge of the therapist, and assessment of patient's response to intervention. Manual techniques to facilitate lymphatic dynamics and improve condition of tissue. Billing KX Modifier : Therapist attests that services rendered are medically necessary. Manual TherapyTreatment Minutes: 55 Total Treatment Time Minutes (timed/untimed): 55 Grace Bonds PT documented in this encounter[facility] [place] History of Present illness Narrative* Grace Bonds PT - 05/11/2022 3:24 PM EDT Episode Visit Count: 42 Therapist That Will Accept/Oversee The Plan Of Care: Grace Bonds Start of Care Date: 03/13/21 Onset Date: 02/20/21 (past several weeks) Plan of Care Certification Date: 03/19/22 Next Certification Due Date: 05/20/22 Patient Identified by Name and Date of : Yes REHABILITATION AND SPORTS THERAPY PHYSICAL THERAPY TREATMENT NOTE ASSESSMENT: Chema Koroma tolerated the session with no issues. She demonstrated no significantchange in LE soft tissue condition, but decreased dryness/flaking of skin. The patient will continue to benefit from ongoing skilled physical therapy to progress toward set goals. PLAN FOR NEXT VISIT: Continue only with MLD and compression wrapping d/t pt will have final knee joint injection prior to next visit. SUBJECTIVE: Patient Reason for Visit: Pt reporting her construction driver got a flat tire adn then she had another appt for her knee just prior to this appt.as why she is late today. She had her 2nd knee injection and is not able to do any exercises today again. Pain: Pain Pain Level: 0 Post Treatment Pain Post Treatment Pain Level: 0 OBJECTIVE MEASURES WITH LEVEL OF FUNCTION: Lymphedema Comment: Pt presents wtih wraps in place and extra supplies in tow. Fibrosis Comments:: L distal anterolateral lower leg Dryness/Flaking of Skin Comments:: moderate flaking of skin B lower legs Lymphorrhea Comments:: Small area lateral lower leg tahira tis moist with pressure, but no visible fluid or seeping. Gait Gait Observation: Pt required min assist to lift L LE onto plinth during sit to supine. Independentsupine to sit. Pt ambulates independently using quad cane. TREATMENT: Manual Therapy: 1: Due to pt being 25 min late for appt. and unable to perfrom LE exercises, therapist removed short stretch wraps and reapplied with clean bandages B foot to knee with stockinette, Artiflex padding and Comprilan bandages. Skilled Intervention: Manual skills to improve joint mobility, ROM, and decrease pain. Utilized anatomy knowledge of the therapist, and assessment of patient's response to intervention. Billing KX Modifier : Therapist attests that services rendered are medically necessary. Manual TherapyTreatment Minutes: 25 Total Treatment Time Minutes (timed/untimed): 25 Grace Bonds PT documented [facility] [place] Discharge instructions Additional Instructions Increase your torsemide (Demadex) to 20 mg daily. Follow-up with Dr. Benitez in 3 to 5 days for reevaluation.[facility] Work Phone: [phone]) 571-462609-09-2022 History of Present illness Narrative* Grace Bonds, PT - 05/04/2022 2:30 PM EDT Episode Visit Count: 41 Therapist That Will Oversee The Plan Of Care: Grace Bonds Start of Care Date: 03/13/21 Onset Date: 02/20/21 (past several weeks) Plan of Care Certification Date: 03/19/22 Next Certification Due Date: 05/20/22 Patient Identified by Name and Date of : Yes REHABILITATION AND SPORTS THERAPY PHYSICAL THERAPY TREATMENT NOTE ASSESSMENT: Chema Koroma tolerated the session with no issues. She demonstrated difficulty with increased dry flaking of skin L lower leg. The patient will continue to benefit from ongoing skilled physical therapy to progress toward set goals. PLAN FOR NEXT VISIT: may add seated stepper or resume other LE exercises prior to MLD next session. SUBJECTIVE: Patient Reason for Visit: Pt stating she just had an injection in her R knee and the doctor said not to do anything with that knee/leg for a couple days. Pain: Pain Pain Level: 0 Post Treatment Pain Post Treatment Pain Level: 0 OBJECTIVE MEASURES WITH LEVEL OF FUNCTION: Lymphedema Comment: Pt presents with R LE short-stretch wrap remaining in place and L LE wrap removed with supplies in tow. Color Comments:: No significant redness noted L LE. Fibrosis Comments:: L distal anterolateral lower leg Dryness/Flaking of Skin Comments:: significant flaking of skin B lower legs Lymphorrhea Comments:: Small area lateral lower leg tahira tis moist with pressure, but no visible fluid or seeping. Gait Gait Observation: Pt required min assist to lift L LE onto plinth during sit to supine. Independentsupine to sit. Pt ambulates independently using quad cane. TREATMENT: Manual Therapy: 1: MLD for L LE sequence utilizing L iguinoaxillary anastamosis. Applied short- stretch bandaging toB foot to knee with stockinette, Artiflex padding and Comprilan bandages. Skilled Intervention: Manual skills to improve joint mobility, ROM, and decrease pain. Utilized anatomy knowledge of the therapist, and assessment of patient's response to intervention. Manual techniques to facilitate lymphatic dynamics and improve condition of tissue. Billing KX Modifier : Therapist attests that services rendered are medically necessary. Manual TherapyTreatment Minutes: 60 Total Treatment Time Minutes (timed/untimed): 60 Grace Bonds PT documented in this encounter[facility] [place] History of Present illness Narrative* Grace Bonds PT - 04/27/2022 3:46 PM EDT Episode Visit Count: 40 Therapist That Will Oversee The Plan Of Care: Grace Bonds Start of Care Date: 03/13/21 Onset Date: 02/20/21 (past several weeks) Plan of Care Certification Date: 03/19/22 Next Certification Due Date: 05/20/22 Patient Identified by Name and Date of : Yes REHABILITATION AND SPORTS THERAPY PHYSICAL THERAPY TREATMENT NOTE ASSESSMENT: Chema Koroma tolerated the session with no issues. She demonstrated difficulty with mild redness R lower leg and moderate skin flaking B lower legs. The patient will continue to benefit from ongoing skilled physical therapy to progress toward set goals. PLAN FOR NEXT VISIT: Seated stepper or bike next visit prior to MLD and compression wraps. SUBJECTIVE: Patient Reason for Visit: Pt to dept. with wraps in tow. She reports her aid wrapped her R leg, but did not use matt cotton padding underneath and it is a little red at lower leg. Pain: Pain Pain Level: 0 Post Treatment Pain Post Treatment Pain Level: 0 OBJECTIVE MEASURES WITH LEVEL OF FUNCTION: Lymphedema Color Comments:: Mild redness at lower third of anteromedial R lower leg. Fibrosis Comments:: L distal anterolateral lower leg Dryness/Flaking of Skin Comments:: moderate flaking of skin B lower legs Lymphorrhea Comments:: None. Gait Gait Observation: Pt required min assist to lift L LE onto plinth during sit to supine. Independentsupine to sit. Pt ambulates independently using quad cane. TREATMENT: Therapeutic Exercise: 1: B SLR 2 x 10 each 2: B heel slides 2 x 10 each Skilled Intervention: Patient was educated in proper exercise technique and purpose for exercises. Skilled judgment was provided in selection of appropriate interventions. Correct performance of therapeutic exercises was facilitated with verbal and visual cuing. Patient education as noted. Manual Therapy: 1: MLD for L LE sequence utilizing L iguinoaxillary anastamosis. Applied short- stretch bandaging toB foot to knee with stockinette, Artiflex padding and Comprilan bandages. Skilled Intervention: Manual skills to improve joint mobility, ROM, and decrease pain. Utilized anatomy knowledge of the therapist, and assessment of patient's response to intervention. Manual techniques to facilitate lymphatic dynamics and improve condition of tissue. Billing KX Modifier : Therapist attests that services rendered are medically necessary. Therapeutic Exercise Treatment Minutes: 5 Manual TherapyTreatment Minutes: 55 Total Treatment Time Minutes (timed/untimed): 60 Grace Bonds PT documented [facility] [place] History of Present illness Narrative* Grace Bonds PT - 04/20/2022 3:51 PM EDT Episode Visit Count: 39 Therapist That Will Oversee The Plan Of Care: Grace Bonds Start of Care Date: 03/13/21 Onset Date: 02/20/21 (past several weeks) Plan of Care Certification Date: 03/19/22 Next Certification Due Date: 05/20/22 Patient Identified by Name and Date of : Yes REHABILITATION AND SPORTS THERAPY PHYSICAL THERAPY PROGRESS REPORT PLAN OF CARE UPDATE: Assessment: Chema Koroma demonstrates difficulty with sit to supine transfers and walking in the community and improvements in rising from a chair and walking in the house. She hasprogressed toward goals. Patient continues to present with impairments in edema management, overall function, and soft tissue condition that interfere with walking in the community;physical activities . Current prognosis is Good due to: positive past response to therapy;Prognosis may be limited due to multiple co- morbidities;chronic nature of impairments;limited support system . She will benefit from continuedskilled therapy services to meet the updated goals for this plan of care as noted below. Goals for Episode of Care: created on 03/13/21 through 05/14/21 Goals updated on 04/20/2022. Patient / family knowledgeable re: all pertinent aspects of CDT (Met) Patient / family independent with donning / doffing compression garment and proper wearing schedule and care of garment (Not Met) Patient / family independent with home exercise program (Met) Patient will decrease circumferential measurements by 0.5-13.0 cm in the following areas: B LE for decreased recurrence of infection, improved mobility, improved range of motion and allow appropriate fit in compressive garment. (Partially Met) Pt to demonstrate reduction of lymphorrhea to allow for wearing of custom compression garments. (Met) Pt will perform supine <> sit transfer independently. (Partially Met)-met for supine>sit Pt will ambulate with decreased effort. (Met) 10/06/21: Pt will demonstrate reduction in L LE fibrosis (intensity and area). (Partially Met) Patient Goals: To stop the draining and get the left leg smaller again. (Partially Met) Planned Interventions, Frequency, and Duration: 1x/week, 4 weeks Total Number of Visits Planned: 4 Patient to be seen for Therapeutic exercise (46295);Manual therapy (66003);Self- correction management (01854) PLAN FOR NEXT VISIT: Seated stepper or bike next visit prior to MLD and compression wraps. SUBJECTIVE: Patient Reason for Visit: Pt states she only brought 3 compression wraps with her todayas the others were still drying at home after being washed. She states she was finally able to order her compression stocking for L LE. Functional Limitations: walking in the community;physical activities Pain: Pain Pain Level: 0 Post Treatment Pain Post Treatment Pain Level: 0 PROMIS Scales T-scores: mean of general population = 50. 5 points is clinically meaningfully difference Percentiles provide an indication of how the patient's score ranks in relation to the general population. Higher percentile rankings indicate better function/quality of life. 50th percentile is the average of the general population and indicates half of respondents had a worse score. T-scores: mean of general population = 50. 5 points is clinically meaningfully difference Percentiles provide an indication of how the patient's score ranks in relation to the general population. Higher percentile rankings indicate better function/quality of life. 50th percentile is the average of the general population and indicates half of respondents had a worse score. OBJECTIVE MEASURES WITH LEVEL OF FUNCTION: Lymphedema Comment: Pt presents to dept with no compression on B LE, but bandaging supplies in tow. Notes she removed them this morning. Fibrosis Comments:: L distal anterolateral lower leg, decreasing firmness around the periphery. Dryness/Flaking of Skin Comments:: Mild dryness/moderate flaking of skin L anterior lower leg. Lymphorrhea Comments:: None today. Lower Extremity Circumferential Measurements R 1st toe (proximal phalanx): 8 R Metatarsal Phalangeal (MTP): 21.5 R Arch: 21 R 5 cm from floor: 27 cm R 10 cm from floor: 24 cm R 15 cm from floor: 31.5 cm R 20 cm from floor: 38 cm R 25 cm from floor: 41.5 cm R 30 cm from floor: 41 cm R 35 cm from floor: 38 cm R 40 cm from floor: 43 cm (knee) R 45 cm from floor: 45 cm R 50 cm from floor: 51 cm R 55 cm from floor: 55 cm L 1st toe (proximal phalanx): 7.5 L Metatarsal Phalangeal (MTP): 21.5 L Arch: 22 L 5 cm from floor: 30.5 cm L 10 cm from floor: 32 cm L 15 cm from floor: 47 cm L 20 cm from floor: 55.5 cm L 25 cm from floor: 56 cm L 30 cm from floor: 55 cm L 35 cm from floor: 51 cm (knee) L 40 cm from floor: 54.5 cm L 45 cm from floor: 55 cm L 50 cm from floor: 56 cm Affected Leg: Bilateral, Left Leg Larger Calculate Volume : Yes R Lower Extremity Volume: 6440 L Lower Extremity Volume: 9175 Difference in Volume: 2735 Difference in % : 42.47 Gait Gait Observation: Pt required min assist to lift L LE onto plinth during sit to supine. Independentsupine to sit. Pt ambulates independently using quad cane intermittently short distances. TREATMENT: Therapeutic Exercise: 1: B SLR 2 x 10 each Skilled Intervention: Patient was educated in proper exercise technique and purpose for exercises. Skilled judgment was provided in selection of appropriate interventions. Correct performance of therapeutic exercises was facilitated with verbal and visual cuing. Patient education as noted. Manual Therapy: 1: MLD for L LE sequence utilizing L iguinoaxillary anastamosis. Applied short- stretch bandaging toB foot to knee with stockinette, Artiflex padding and Comprilan bandages. Skilled Intervention: Manual skills to improve joint mobility, ROM, and decrease pain. Utilized anatomy knowledge of the therapist, and assessment of patient's response to intervention. Manual techniques to facilitate lymphatic dynamics and improve condition of tissue. Godfrey AdameX Modifier : Therapist attests that services rendered are medically necessary. Therapeutic Exercise Treatment Minutes: 5 Manual TherapyTreatment Minutes: 55 Total Treatment Time Minutes (timed/untimed): 60 Grace Bonds PT documented [facility] [place] History of Present illness Narrative* Grace Bonds PT - 04/13/2022 2:47 PM EDT Episode Visit Count: 38 Therapist That Will Oversee The Plan Of Care: Grace Bonds Start of Care Date: 03/13/21 Onset Date: 02/20/21 (past several weeks) Plan of Care Certification Date: 03/19/22 Next Certification Due Date: 05/20/22 Patient Identified by Name and Date of : Yes REHABILITATION AND SPORTS THERAPY PHYSICAL THERAPY TREATMENT NOTE ASSESSMENT: Chema Koroma tolerated the session with no issues. She demonstrated improved skin condition L LE, but continued dryness/flaking. The patient will continue to benefit from ongoing skilled physical therapy to progress toward set goals. PLAN FOR NEXT VISIT: POC update with LE measurements. SUBJECTIVE: Patient Reason for Visit: Pt states she is going to stop in to get her compression stocking on Saturday d/t the hours of the vendor and her doctor's appt. She states she is walking and the exercises as much as she can at home. She denies any more issues with lymphorrhea. Pain: Pain Pain Level: 0 Post Treatment Pain Post Treatment Pain Level: 0 OBJECTIVE MEASURES WITH LEVEL OF FUNCTION: Lymphedema Comment: Pt with short-stretch wraps in place on both legs foot to knee and remain in fairly good repair. These were removed prior to treatment today. Fibrosis Comments:: L distal anterolateral lower leg Dryness/Flaking of Skin Comments:: Mild dryness/flaking of skin L lower leg. Lymphorrhea Comments:: None today. Gait Gait Observation: Pt required min assist to lift L LE onto plinth during sit to supine. Independentsupine to sit. TREATMENT: Therapeutic Exercise: 1: B SLR 2 x 10 each 2: B heel slides 2 x 10 each Skilled Intervention: Patient was educated in proper exercise technique and purpose for exercises. Reviewed and educated patient on additions/changes for home exercise program. Skilled judgment was provided in selection of appropriate interventions. Correct performance of therapeutic exercises was facilitated with verbal, visual, and tactile cuing. Patient education as noted. Manual Therapy: 1: MLD for L LE sequence utilizing L iguinoaxillary anastamosis. Applied short- stretch bandaging toB foot to knee with stockinette, Artiflex padding and Comprilan bandages. Skilled Intervention: Manual skills to improve joint mobility, ROM, and decrease pain. Utilized anatomy knowledge of the therapist, and assessment of patient's response to intervention. Billing KX Modifier : Therapist attests that services rendered are medically necessary. Therapeutic Exercise Treatment Minutes: 10 Manual TherapyTreatment Minutes: 50 Total Treatment Time Minutes (timed/untimed): 60 Grace Bonds PT documented in [facility] [place] History of Present illness Narrative* Grace Bonds PT - 04/06/2022 1:45 PM EDT Episode Visit Count: 37 Therapist That Will Oversee The Plan Of Care: Grace Bonds Start of Care Date: 03/13/21 Onset Date: 02/20/21 (past several weeks) Plan of Care Certification Date: 03/19/22 Next Certification Due Date: 05/20/22 Patient Identified by Name and Date of : Yes REHABILITATION AND SPORTS THERAPY PHYSICAL THERAPY TREATMENT NOTE ASSESSMENT: Chema Koroma tolerated the session with no issues. She demonstrated difficulty with L LE firmness, skin condition and volume and improvements in R LE volume and skin condition. The patient will continue to benefit from ongoing skilled physical therapy to progress toward set goals. PLAN FOR NEXT VISIT: Possible POC update and resume LE exercises. SUBJECTIVE: Patient Reason for Visit: Pt states she was only able to wash 2 compression wraps to use today. She presents with both legs in previous wraps with supplies in tow. Pain: Pain Pain Level: 0 Post Treatment Pain Post Treatment Pain Level: 0 OBJECTIVE MEASURES WITH LEVEL OF FUNCTION: Lymphedema Comment: Pt with short-stretch wraps in place on both legs foot to knee. Wraps are loosened, but remain in place. Fibrosis Comments:: L distal anterolateral lower leg Dryness/Flaking of Skin Comments:: Mild dryness/flaking of skin L lower leg. Gait Gait Observation: Pt required min assist to lift L LE onto plinth during sit to supine. Independentsupine to sit. TREATMENT: Manual Therapy: 1: MLD for L LE sequence utilizing L iguinoaxillary anastamosis. Applied short- stretch bandaging toB foot to knee with stockinette, Artiflex padding and Comprilan bandages. Skilled Intervention: Manual skills to improve joint mobility, ROM, and decrease pain. Utilized anatomy knowledge of the therapist, and assessment of patient's response to intervention. Manual techniques to facilitate lymphatic dynamics and improve condition of tissue. Billing KX Modifier : Therapist attests that services rendered are medically necessary. Manual TherapyTreatment Minutes: 50 Total Treatment Time Minutes (timed/untimed): 50 Grace Bonds PT documented in this encounter[facility] [place] History of Present illness Narrative* Grace Bonds PT - 03/30/2022 3:28 PM EDT Episode Visit Count: 36 Therapist That Will Oversee The Plan Of Care: Grace Bonds Start of Care Date: 03/13/21 Onset Date: 02/20/21 (past several weeks) Plan of Care Certification Date: 03/19/22 Next Certification Due Date: 05/20/22 Patient Identified by Name and Date of : Yes REHABILITATION AND SPORTS THERAPY PHYSICAL THERAPY TREATMENT NOTE ASSESSMENT: Chema Koroma tolerated the session with no issues. She demonstrated improvements in skin condition today. The patient will continue to benefit from ongoing skilled physical therapy to progress toward set goals. PLAN FOR NEXT VISIT: MLD L LE, compresison wrapping and strengthening B LEs. SUBJECTIVE: Patient Reason for Visit: Pt reports she is walking daily when she feeds her cats. She feels that her legs are heavy. Pain: Pain Pain Level: 0 Post Treatment Pain Post Treatment Pain Level: 0 OBJECTIVE MEASURES WITH LEVEL OF FUNCTION: Lymphedema Comment: Pt with short-stretch wraps in place on both legs foot to knee. Fibrosis Comments:: L distal anterolateral lower leg Dryness/Flaking of Skin Comments:: Mild dryness/flaking of skin L lower leg. TREATMENT: Therapeutic Exercise: 1: Encouraged pt to be diligent with her HEP and strengthening of the legs to assist with walking and decreased feeling of heaviness in the legs in combination with continuing to work towards volume reduction. 2: B SLR 2 x 10 each (therapist assist to lift L LE) 3: B heel slides 2 x 10 each Skilled Intervention: Patient was educated in proper exercise technique and purpose for exercises. Reviewed and educated patient on additions/changes for home exercise program. Skilled judgment was provided in selection of appropriate interventions. Correct performance of therapeutic exercises was facilitated with verbal, visual and tactile cuing. Patient education as noted. Manual Therapy: 1: MLD for L LE sequence utilizing L iguinoaxillary anastamosis. Applied short- stretch bandaging toB foot to knee with stockinette, Artiflex padding and Comprilan bandages. Skilled Intervention: Manual skills to improve joint mobility, ROM, and decrease pain. Utilized anatomy knowledge of the therapist, and assessment of patient's response to intervention. Billing KX Modifier : Therapist attests that services rendered are medically necessary. Therapeutic Exercise Treatment Minutes: 10 Manual TherapyTreatment Minutes: 50 Total Treatment Time Minutes (timed/untimed): 60 Grace Bonds PT documented in this encounter[facility] [place] History of Present illness Narrative* Grace Bonds PT - 03/23/2022 3:34 PM EDT Episode Visit Count: 35 Therapist That Will Oversee The Plan Of Care: Grace Bonds Start of Care Date: 03/13/21 Onset Date: 02/20/21 (past several weeks) Plan of Care Certification Date: 03/19/22 Next Certification Due Date: 05/20/22 Patient Identified by Name and Date of : Yes REHABILITATION AND SPORTS THERAPY PHYSICAL THERAPY TREATMENT NOTE ASSESSMENT: Chema Koroma tolerated the session with no issues. She demonstrated difficulty with increased LE edema as she did not take her Lasix for a couple of days. The patient will continue to benefit from ongoing skilled physical therapy to progress toward set goals. PLAN FOR NEXT VISIT: Continue MLD and exercise L LE. SUBJECTIVE: Patient Reason for Visit: Pt notes she did not take her water pill (Lasix) for a coupleof days. She notes she is concerned about damage to her kidneys d/t prolonged use. She did take it then last night as she felt her legs were getting too waterlogged and could feel how heavy they were. She was advised to talk with her physician regarding decreasing her concerns before she changes anything about her medication and to avoid just stopping medication without her physician knowing Pain: Pain Pain Level: 0 Description: (My legs, mostly the left one, just feels more heavy today.) Post Treatment Pain Post Treatment Pain Level: 0 OBJECTIVE MEASURES WITH LEVEL OF FUNCTION: Lymphedema Comment: Pt with short-stretch wraps in place on both legs foot to knee. Fibrosis Comments:: L distal anterolateral lower leg Dryness/Flaking of Skin Comments:: Dryness/flaking of skin L lower leg. Lymphorrhea Comments:: Very mild moistness appreciated with glove on L lateral distal leg, but no visible weeping. Gait Gait Observation: Pt required min assist to lift L LE onto plinth during sit to supine. Independentsupine to sit. TREATMENT: Therapeutic Exercise: 1: B SLR 2 x 10 each 2: B heel slides 2 x 10 each Skilled Intervention: Patient was educated in proper exercise technique and purpose for exercises. Reviewed and educated patient on additions/changes for home exercise program. Skilled judgment was provided in selection of appropriate interventions. Correct performance of therapeutic exercises was facilitated with verbal and visual cuing. Patient education as noted. Manual Therapy: 1: MLD for L LE sequence utilizing L iguinoaxillary anastamosis. Applied short- stretch bandaging toB foot to knee with stockinette, Artiflex padding and Comprilan bandages. Skilled Intervention: Manual skills to improve joint mobility, ROM, and decrease pain. Utilized anatomy knowledge of the therapist, and assessment of patient's response to intervention. Manual techniques to facilitate lymphatic dynamics and improve condition of tissue. Billing KX Modifier : Therapist attests that services rendered are medically necessary. Manual TherapyTreatment Minutes: 55 Total Treatment Time Minutes (timed/untimed): 55 Grace Bonds PT documented in this encounter[facility] [place] History of Present illness Narrative* Grace Bonds PT - 03/21/2022 8:21 AM EDT Episode Visit Count: 34 Therapist That Will Oversee The Plan Of Care: Sheri Bondsissa Start of Care Date: 03/13/21 Onset Date: 02/20/21 (past several weeks) Plan of Care Certification Date: 03/19/22 Next Certification Due Date: 05/20/22 Patient Identified by Name and Date of : Yes REHABILITATION AND SPORTS THERAPY PHYSICAL THERAPY PROGRESS REPORT PLAN OF CARE UPDATE: Assessment: Chema Koroma demonstrates difficulty with transfers L LE (lifting L LE up onto bed, plinth), has not obtained compression garment R LE and improvements in volume reduction of L LE and overall reduction of volume combined LEs, standing and walking. She hasprogressed toward goals. Patient continues to present with impairments in edema management, overall function and fibrosis of soft tissue that interfere with walking in the community;physical activities . Current prognosis is Good due to: positive past response to therapy;current objective clinical presentation;Prognosis may be limited due to multiple co- morbidities;chronic nature of impairments;limited support system . Alan benefit from continued skilled therapy services to meet the updated goals for this plan of care as noted below. Goals for Episode of Care: created on 03/13/21 through 05/14/21 Goals updated on 03/19/2022. Patient / family knowledgeable re: all pertinent aspects of CDT (Met) Patient / family independent with donning / doffing compression garment and proper wearing schedule and care of garment (Not Met) Patient / family independent with home exercise program (Met) Patient will decrease circumferential measurements by 0.5-13.0 cm in the following areas: B LE for decreased recurrence of infection, improved mobility, improved range of motion and allow appropriate fit in compressive garment. (Partially Met) Pt to demonstrate reduction of lymphorrhea to allow for wearing of custom compression garments. (Met) Pt will perform supine <> sit transfer independently. (Partially Met)-met for supine>sit Pt will ambulate with decreased effort. (Met) 10/06/21: Pt will demonstrate reduction in L LE fibrosis (intensity and area). (Partially Met) Patient Goals: To stop the draining and get the left leg smaller again. (Partially Met) Planned Interventions, Frequency, and Duration: 1x/week, 8 weeks Total Number of Visits Planned: 8 Patient to be seen for Therapeutic exercise (38635);Manual therapy (61220);Self- correction management ([id number]) PLAN FOR NEXT VISIT: Resume LE exercises and continue MLD for L LE and short- stretch wrapping for BLEs until compression stocking is obtained for R LE. SUBJECTIVE: Patient Reason for Visit: Pt noting she removed her wraps this afternoon. Pt states shestopped at the local medical supply store after last visit to obtain R LE compression stocking, butthey were closed. Continued to encourage pt that increased frequency of visits would be more beneficial, but pt states she can only manage 1 day a week d/t transportation limitations. Functional Limitations: walking in the community;physical activities Pain: Pain Pain Level: 0 Post Treatment Pain Post Treatment Pain Level: 0 PROMIS Scales T-scores: mean of general population = 50. 5 points is clinically meaningfully difference Percentiles provide an indication of how the patient's score ranks in relation to the general population. Higher percentile rankings indicate better function/quality of life. 50th percentile is the average of the general population and indicates half of respondents had a worse score. T-scores: mean of general population = 50. 5 points is clinically meaningfully difference Percentiles provide an indication of how the patient's score ranks in relation to the general population. Higher percentile rankings indicate better function/quality of life. 50th percentile is the average of the general population and indicates half of respondents had a worse score. OBJECTIVE MEASURES WITH LEVEL OF FUNCTION: Lymphedema Comment: Pt with short stretch supplies in tow. Fibrosis Comments:: L distal anterolateral lower leg Dryness/Flaking of Skin Comments:: Increased dryness/flaking of skin L>R lower legs Lymphorrhea Comments:: Very mild moistness present L lateral distal lower leg. Lower Extremity Circumferential Measurements R 1st toe (proximal phalanx): 8 R Metatarsal Phalangeal (MTP): 21.5 R Arch: 22 R 5 cm from floor: 28 cm R 10 cm from floor: 24 cm R 15 cm from floor: 32 cm R 20 cm from floor: 39 cm R 25 cm from floor: 42 cm R 30 cm from floor: 40.5 cm R 35 cm from floor: 39 cm R 40 cm from floor: 43 cm (knee) R 45 cm from floor: 45.5 cm R 50 cm from floor: 51.5 cm R 55 cm from floor: 57 cm L 1st toe (proximal phalanx): 7.5 L Metatarsal Phalangeal (MTP): 22 L Arch: 22.5 L 5 cm from floor: 30.5 cm L 10 cm from floor: 32 cm L 15 cm from floor: 49 cm L 20 cm from floor: 56.5 cm L 25 cm from floor: 57 cm L 30 cm from floor: 56 cm L 35 cm from floor: 51 cm (knee) L 40 cm from floor: 55 cm L 45 cm from floor: 55 cm L 50 cm from floor: 56 cm Affected Leg: Bilateral, Left Leg Larger Calculate Volume : Yes R Lower Extremity Volume: 6607 L Lower Extremity Volume: 9403 Difference in Volume: 2796 Difference in % : 42.32 Gait Gait Observation: Pt required min assist to lift L LE onto plinth during sit to supine. Independentsupine to sit. TREATMENT: Manual Therapy: 1: MLD for L LE sequence utilizing L iguinoaxillary anastamosis. Applied short- stretch bandaging toB foot to knee with stockinette, Artiflex padding and Comprilan bandages. Skilled Intervention: Manual skills to improve joint mobility, ROM, and decrease pain. Utilized anatomy knowledge of the therapist, and assessment of patient's response to intervention. Manual techniques to facilitate lymphatic dynamics and improve condition of tissue. Billing KX Modifier : Therapist attests that services rendered are medically necessary. Manual TherapyTreatment Minutes: 55 Total Treatment Time Minutes (timed/untimed): 55 Grace Bonds PT documented [facility] [place] History of Present illness Narrative* Grace Bonds PT - 03/07/2022 1:01 PM EDT Episode Visit Count: 33 Therapist That Will Oversee The Plan Of Care: Grace Bonds Start of Care Date: 03/13/21 Onset Date: 02/20/21 (past several weeks) Plan of Care Certification Date: 02/16/22 Next Certification Due Date: 03/18/22 Patient Identified by Name and Date of : Yes REHABILITATION AND SPORTS THERAPY PHYSICAL THERAPY TREATMENT NOTE ASSESSMENT: Chema Koroma tolerated the session with no issues. She demonstrated good maintenance of R LE volume reduction and reported compliance iw HEP. The patient will continue to benefit from ongoing skilled physical therapy to progress toward set goals. PLAN FOR NEXT VISIT: Resume LE exercises and continue MLD and short-stretch wrapping. SUBJECTIVE: Patient Reason for Visit: Pt states she felt that her feet were a little more swollen last night. She feels it is d/t the heat as they would swell in the summer time even before she developed lymphedema. She reports she is still doing her HEP. Pain: Pain Pain Level: 0 Post Treatment Pain Post Treatment Pain Level: 0 OBJECTIVE MEASURES WITH LEVEL OF FUNCTION: Lymphedema Comment: Pt to dept with wraps in place B LEs. Loosening is observed R LE>L LE. Skin: Dryness/Flaking Of Skin Color Comments:: Minimal pinkness over fibrotic area anterolateral L lower leg. Fibrosis Comments:: L distal anterolateral lower leg Lymphorrhea Comments:: None visible, but skin is moist during palpation at samel area L lateral, distal lower leg TREATMENT: Manual Therapy: 1: MLD for L LE sequence utilizing L iguinoaxillary anastamosis. Applied short- stretch bandaging toB foot to knee with stockinette, Artiflex padding and Comprilan bandages. 2: Again reminded pt of improtance of obtaining R LE compression stocking to assist with maintaining reduction and preventing increasing volume R LE. Skilled Intervention: Manual skills to improve joint mobility, ROM, and decrease pain. Utilized anatomy knowledge of the therapist, and assessment of patient's response to intervention. Manual techniques to facilitate lymphatic dynamics and improve condition of tissue. Billing KX Modifier : Therapist attests that services rendered are medically necessary. Manual TherapyTreatment Minutes: 55 Total Treatment Time Minutes (timed/untimed): 55 Garce Bonds PT documented in this encounterSelect [facility] [place] History of Present illness Narrative* Grace Bonds PT - 02/23/2022 3:49 PM EDT Episode Visit Count: 32 Therapist That Will Oversee The Plan Of Care: Grace Bonds Start of Care Date: 03/13/21 Onset Date: 02/20/21 (past several weeks) Plan of Care Certification Date: 02/16/22 Next Certification Due Date: 03/18/22 Patient Identified by Name and Date of : Yes REHABILITATION AND SPORTS THERAPY PHYSICAL THERAPY TREATMENT NOTE ASSESSMENT: Chema Koroma tolerated the session with no issues. She demonstrated difficulty with some lymphorrhea L LE and improvements in able to perform LE exercises again with less difficulty.The patient will continue to benefit from ongoing skilled physical therapy to progress toward set goals. PLAN FOR NEXT VISIT: Continue with LE exercises, MLD and short-stretch wrapping. SUBJECTIVE: Patient Reason for Visit: Pt states she removed the bandages at home prior to appt today. Pt's aid, Patrizia notes she feels her R foot has reduced in size as it is wrinkly now and she can fit in her shoes more easily. They report stopping at [facility] after last appt to get stockings, butit was closed. Pain: Pain Pain Level: 0 Post Treatment Pain Post Treatment Pain Level: 0 OBJECTIVE MEASURES WITH LEVEL OF FUNCTION: Lymphedema Comment: Pt to dept with bandage supplies in tow. Skin: Dryness/Flaking Of Skin Color Comments:: Minimal pinkness over fibrotic area anterolateral L lower leg. Fibrosis Comments:: L distal anterolateral lower leg Lymphorrhea Comments:: None visible, but skin is moist during palpation at small area L lateral, distal lower leg TREATMENT: Therapeutic Exercise: 1: B SLR 2 x 10 each 2: B supine hip abd/add (with minimal assist to elevate L leg to avoid sheer forces on skin) 2 x 10each 3: B heel slides 2 x 10 each Skilled Intervention: Patient was educated in proper exercise technique and purpose for exercises. Skilled judgment was provided in selection of appropriate interventions. Provided written instruction for home exercise program to facilitate proper performance and compliance. Correct performance of therapeutic exercises was facilitated with verbal and visual cuing. Patient education as noted. Manual Therapy: 1: MLD for L LE sequence utilizing L iguinoaxillary anastamosis. Applied short- stretch bandaging toB foot to knee with stockinette, Artiflex padding and Comprilan bandages. 2: Recommended pt purchase new Comprilan bandages as current ones are losing their effectiveness. Skilled Intervention: Manual skills to improve joint mobility, ROM, and decrease pain. Utilized anatomy knowledge of the therapist, and assessment of patient's response to intervention. Manual techniques to facilitate lymphatic dynamics and improve condition of tissue. Billing KX Modifier : Therapist attests that services rendered are medically necessary. Therapeutic Exercise Treatment Minutes: 10 Manual TherapyTreatment Minutes: 52 Total Treatment Time Minutes (timed/untimed): 62 Grace Bonds PT documented in this encounterSelect [facility] [place] History of Present illness Narrative* Grace Bonds PT - 02/16/2022 2:33 PM EDT Episode Visit Count: 31 Therapist That Will Oversee The Plan Of Care: Grace Bonds Start of Care Date: 03/13/21 Onset Date: 02/20/21 (past several weeks) Plan of Care Certification Date: 02/16/22 Next Certification Due Date: 03/18/22 Patient Identified by Name and Date of : Yes REHABILITATION AND SPORTS THERAPY PHYSICAL THERAPY PROGRESS REPORT PLAN OF CARE UPDATE: Assessment: Chema Koroma demonstrates difficulty with L LE edema and soft tissue condition, transfers and walking in the community and improvements in volume reduction of B LE and soft tissue condition of R LE. She hasprogressed toward goals. Patient continues to present with impairments in edema management and soft tissue fibrosis that interfere with walking in the community;physical activities . Current prognosis is Good due to: positive past response to therapy;current objective clinical presentation;Prognosis may be limited due to multiple co- morbidities;chronic nature of impairments;limited compliance with previous therapy;limited support system . If pt obtains R LE compression st ocking, she can independently manage R LE. Pt continues to require treatment for L LE edema and soft tissue fibrosis. She will benefit from continued skilled therapy services to meet the updated goals for this plan of care as noted below. Goals for Episode of Care: created on 03/13/21 through 05/14/21 Goals updated on 03/18/2022. Patient / family knowledgeable re: all pertinent aspects of CDT (Met) Patient / family independent with donning / doffing compression garment and proper wearing schedule and care of garment (Not Met) Patient / family independent with home exercise program (Met)-independently able, but inconsistent frequency Patient will decrease circumferential measurements by 0.5-13.0 cm in the following areas: B LE for decreased recurrence of infection, improved mobility, improved range of motion and allow appropriate fit in compressive garment. (Partially Met) Pt to demonstrate reduction of lymphorrhea to allow for wearing of custom compression garments. (Met) Pt will perform supine <> sit transfer independently. (Partially Met)-met for supine>sit Pt will ambulate with decreased effort. (Partially Met) 10/06/21: Pt will demonstrate reduction in L LE fibrosis (intensity and area). (Partially Met) Patient Goals: To stop the draining and get the left leg smaller again. (Partially Met) Planned Interventions, Frequency, and Duration: 1x/week, 4 weeks Total Number of Visits Planned: 4 Patient to be seen for Therapeutic exercise (89018);Manual therapy (94242);Self- correction management ([id number]);Patient/Family/Caregiver Education PLAN FOR NEXT VISIT: Resume LE exercises next visit. Continue MLD for L LE. SUBJECTIVE: Patient Reason for Visit: Pt states she did the leg exercises at home in her chair thisweek as,There was nothing else to do, with the power outage. Her aid and transportation, Patrizia, states they plan to go to [employer] after this appt to get the compression stocking for her R LE. Functional Limitations: walking in the community;physical activities Pain: Pain Pain Level: 0 Post Treatment Pain Post Treatment Pain Level: 0 PROMIS Scales T-scores: mean of general population = 50. 5 points is clinically meaningfully difference Percentiles provide an indication of how the patient's score ranks in relation to the general population. Higher percentile rankings indicate better function/quality of life. 50th percentile is the average of the general population and indicates half of respondents had a worse score. T-scores: mean of general population = 50. 5 points is clinically meaningfully difference Percentiles provide an indication of how the patient's score ranks in relation to the general population. Higher percentile rankings indicate better function/quality of life. 50th percentile is the average of the general population and indicates half of respondents had a worse score. OBJECTIVE MEASURES WITH LEVEL OF FUNCTION: Lymphedema Comment: Pt to dept with wraps in place B LEs. Skin: Dryness/Flaking Of Skin (L LE) Color Comments:: Minimal pinkness over fibrotic area anterolateral L lower leg. Fibrosis Comments:: L distal anterolateral lower leg Lower Extremity Circumferential Measurements R 1st toe (proximal phalanx): 8 R Metatarsal Phalangeal (MTP): 22 R Arch: 22 R 5 cm from floor: 27 cm R 10 cm from floor: 25 cm R 15 cm from floor: 32 cm R 20 cm from floor: 37.5 cm R 25 cm from floor: 39 cm R 30 cm from floor: 39.5 cm R 35 cm from floor: 39 cm R 40 cm from floor: 44.5 cm (knee) R 45 cm from floor: 46.5 cm R 50 cm from floor: 51 cm R 55 cm from floor: 55 cm L 1st toe (proximal phalanx): 8 L Metatarsal Phalangeal (MTP): 21.5 L Arch: 22.5 L 5 cm from floor: 29 cm L 10 cm from floor: 30.5 cm L 15 cm from floor: 46 cm L 20 cm from floor: 54.5 cm L 25 cm from floor: 56 cm L 30 cm from floor: 54.5 cm L 35 cm from floor: 51.5 cm (knee) L 40 cm from floor: 54 cm L 45 cm from floor: 53.5 cm L 50 cm from floor: 54 cm L 55 cm from floor: 56.5 cm Affected Leg: Bilateral, Left Leg Larger Calculate Volume : Yes R Lower Extremity Volume: 6470 L Lower Extremity Volume: 37588 Difference in Volume: 3653 Difference in % : 56.46 Gait Gait Observation: Pt required min assist to lift L LE onto plinth during sit to supine. Independentsupine to sit. TREATMENT: Manual Therapy: 1: MLD for L LE sequence utilizing L iguinoaxillary anastamosis. Applied short- stretch bandaging toB foot to knee with stockinette, Artiflex padding and Comprilan bandages. 2: Encouraged pt to continue [facility] independence in HEP compliance. Skilled Intervention: Manual skills to improve joint mobility, ROM, and decrease pain. Utilized anatomy knowledge of the therapist, and assessment of patient's response to intervention. Manual techniques to facilitate lymphatic dynamics and improve condition of tissue. Billing KX Modifier : Therapist attests that services rendered are medically necessary. Manual TherapyTreatment Minutes: 60 Total Treatment Time Minutes (timed/untimed): 60 Grace Bonds PT documented in this encounter[facility] [place] History of Present illness Narrative* Grace Bonds PT - 02/02/2022 2:36 PM EDT Episode Visit Count: 30 Therapist That Will Oversee The Plan Of Care: Grace Bonds Start of Care Date: 03/13/21 Onset Date: 02/20/21 (past several weeks) Plan of Care Certification Date: 12/22/21 Next Certification Due Date: 02/21/22 Patient Identified by Name and Date of : Yes REHABILITATION AND SPORTS THERAPY PHYSICAL THERAPY TREATMENT NOTE ASSESSMENT: Chema Koroma tolerated the session with no issues. She demonstrated difficulty with poor compliance with HEP and obtaining compression garment and improvements in R LE volume and soft tissue condition. The patient will continue to benefit from ongoing skilled physical therapy to progress toward set goals. PLAN FOR NEXT VISIT: Resume LE exercises as able and continue MLD and short-stretch wrap L LE. SUBJECTIVE: Patient Reason for Visit: Pt reporting that her L leg feels heavier since last seen. She notes she was unable to come last couple weeks d/t transportation and a caregiver that tested COVID positive. Pain: Pain Pain Level: 0 Post Treatment Pain Post Treatment Pain Level: 0 OBJECTIVE MEASURES WITH LEVEL OF FUNCTION: Lymphedema Comment: Pt to dept with wraps in place B LEs. Skin: Dryness/Flaking Of Skin (LLE> RLE) Color Comments:: Minimal pinkness anterolateral L lower leg. Fibrosis Comments:: R LE improved in volume and soft tissue condition TREATMENT: Manual Therapy: 1: MLD for L LE sequence utilizing L iguinoaxillary anastamosis. Applied short- stretch bandaging toB foot to knee with stockinette, Artiflex padding and Comprilan bandages. 2: Reinforced importance of pt performing HEP. Instructed pt to obtain knee high compression garment for R LE. Pt has been given contact information for this. Skilled Intervention: Manual skills to improve joint mobility, ROM, and decrease pain. Utilized anatomy knowledge of the therapist, and assessment of patient's response to intervention. Manual techniques to facilitate lymphatic dynamics and improve condition of tissue. Billing KX Modifier : Therapist attests that services rendered are medically necessary. Manual TherapyTreatment Minutes: 55 Total Treatment Time Minutes (timed/untimed): 55 Grace Bonds PT documented in this encounterSelect [facility] [place]-13-[facility] History of Present illness Narrative* Grace Bonds, PT - 01/05/2022 3:36 PM EDT Episode Visit Count: 28 Therapist That Will Oversee The Plan Of Care: Grace Bonds Start of Care Date: 03/13/21 Onset Date: 02/20/21 (past several weeks) Plan of Care Certification Date: 12/22/21 Next Certification Due Date: 02/21/22 Patient Identified by Name and Date of : Yes REHABILITATION AND SPORTS THERAPY PHYSICAL THERAPY TREATMENT NOTE ASSESSMENT: Chema Koroma tolerated the session with no issues. She demonstrated improvements in softening of L LE firmness. The patient will continue to benefit from ongoing skilled physical therapy to progress toward set goals. PLAN FOR NEXT VISIT: LE exercises and MLD with short-stretch bandaging. May assess volume measurements. SUBJECTIVE: Patient Reason for Visit: Pt reports no significant change since last visit. Pain: Pain Pain Level: 0 Post Treatment Pain Post Treatment Pain Level: 0 OBJECTIVE MEASURES WITH LEVEL OF FUNCTION: Lymphedema Comment: Pt to dept with wraps in place. Color Comments:: Minimal pinkness anterolateral R and L lower legs. Fibrosis Comments:: Decreased firmness at L anterolateral lower leg TREATMENT: Therapeutic Exercise: 1: B SLR 2 x 10 each (min assist for L LE) 2: B supine hip abd/add (with minimal assist to elevate L leg to avoid sheer forces on skin) 2 x 10each (min assist wtih L LE) 3: B heel slides 2 x 10 each Skilled Intervention: Patient was educated in proper exercise technique and purpose for exercises. Skilled judgment was provided in selection of appropriate interventions. Correct performance of therapeutic exercises was facilitated with verbal, visual and tactile cuing. Patient education as noted. Manual Therapy: 1: MLD for B LE sequence utilizing B iguinoaxillary anastamoses. Applied short- stretch bandaging toB foot to knee with stockinette, Artiflex padding and Comprilan bandages. Skilled Intervention: Manual skills to improve joint mobility, ROM, and decrease pain. Utilized anatomy knowledge of the therapist, and assessment of patient's response to intervention. Manual techniques to facilitate lymphatic dynamics and improve condition of tissue. Billing Therapeutic Exercise Treatment Minutes: 12 Manual TherapyTreatment Minutes: 43 Total Treatment Time Minutes (timed/untimed): 55 Grace Bonds PT documented in this encounterSelect [facility] [place] History of Present illness Narrative* Grace Bonds PT - 12/29/2021 4:10 PM EDT Episode Visit Count: 27 Therapist That Will Oversee The Plan Of Care: Grace Bonds Start of Care Date: 03/13/21 Onset Date: 02/20/21 (past several weeks) Plan of Care Certification Date: 12/22/21 Next Certification Due Date: 02/21/22 Patient Identified by Name and Date of : Yes REHABILITATION AND SPORTS THERAPY PHYSICAL THERAPY TREATMENT NOTE ASSESSMENT: Chema Koroma tolerated the session with no issues. She demonstrated difficulty with continued LE volume and soft tissue changes affecting gait and transfers. The patient will continue to benefit from ongoing skilled physical therapy to progress toward set goals. PLAN FOR NEXT VISIT: Continue with exercise and MLD. May add foam pad for ankle or L lower leg fibrosis if consistent. SUBJECTIVE: Patient Reason for Visit: Pt states her legs feel heavy. She states,I;m tryin gto movethem around more. I roll my ankels when I'm sitting and try to lift my leg off the ottoman. Pain: Pain Pain Level: 0 Post Treatment Pain Post Treatment Pain Level: 0 OBJECTIVE MEASURES WITH LEVEL OF FUNCTION: Lymphedema Comment: Pt to dept with wraps in place with minimal wrinkling distally. Color Comments:: Minimal pinkness anterolateral R and L lower legs. Fibrosis Comments:: Firmness at L anterolateral lower leg and minimally at ankles. Gait Gait Observation: Pt required min assist to lift L LE onto plinth during sit to supine. TREATMENT: Therapeutic Exercise: 1: B SLR 2 x 10 each 2: B supine hip abd/add (with minimal assist to elevate L leg to avoid sheer forces on skin) 2 x 10each 3: B heel slides 2 x 10 each Skilled Intervention: Patient was educated in proper exercise technique and purpose for exercises. Reviewed and educated patient on additions/changes for home exercise program. Skilled judgment was provided in selection of appropriate interventions. Correct performance of therapeutic exercises was facilitated with verbal and tactile cuing. Patient education as noted. Manual Therapy: 1: MLD for B LE sequence utilizing B iguinoaxillary anastamoses. Increased time of manual techniques at areas of fibrosis. Applied short-stretch bandaging to B foot to knee with stockinette, Artiflexpadding and Comprilan bandages. 2: Encouraged pt to be consistent with the HEP. Discussed possibility to increase frequency of treatments if works for pt transportation. Skilled Intervention: Manual skills to improve joint mobility, ROM, and decrease pain. Utilized anatomy knowledge of the therapist, and assessment of patient's response to intervention. Manual techniques to facilitate lymphatic dynamics and improve condition of tissue. Billing Therapeutic Exercise Treatment Minutes: 12 Manual TherapyTreatment Minutes: 53 Total Treatment Time Minutes (timed/untimed): 65 Grace Bonds PT documented in this encounterSelect [facility] [place]04-29-[facility] History of Present illness Narrative* Grace Bonds PT - 12/22/2021 1:56 PM EDT Episode Visit Count: 26 Therapist That Will Oversee The Plan Of Care: Grace Bonds Start of Care Date: 03/13/21 Onset Date: 02/20/21 (past several weeks) Plan of Care Certification Date: 12/22/21 Next Certification Due Date: 02/21/22 Patient Identified by Name and Date of : Yes REHABILITATION AND SPORTS THERAPY PHYSICAL THERAPY PROGRESS REPORT PLAN OF CARE UPDATE: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 insufficiency Secondary pulmonary arterial hypertension Hypoxia Atherosclerotic heart disease of crow coronary artery without angina pectoris CHF (congestive heart failure) Chronic combined systolic and diastolic CHF (congestive heart failure) Essential hypertension Hyperlipemia, mixed Lymphedema Nonrheumatic mitral valve insufficiency Chief Complaint HYPOXIA, PNA, CHF, E XAC, NSTEMI HYPOXIA, PNA, CHF, EXAC, NSTEMI HYPOXIA, PNA, CHF, EXAC, NSTEMI HYPOXIA, PNA, CHF, EXAC, NSTEMI HYPOXIA, PNA, CHF, EXAC, NSTEMI HYPOXIA, PNA, CHF, EXAC, NSTEMI HYPOXIA, PNA, CHF, EXAC, NSTEMI EORDER NSTEMI GOITER SOB EDEMA Reason for Visit CHF (congestive hear t failure) History of non-ST elevation myocardial infarction (NSTEMI) Non-ST elevated myocardial infarction Pneumonia Chronic combined systolic and diastolic CHF (congestive heart failure) Essential hypertension History of breast cancer History of uterine cancer Hyperlipemia, mixed Lymphedema Non-ischemic cardiomyopathy Nonrheumatic mitral valve insufficiency Secondary pulmonary arterial hypertension Hypoxia Atherosclerotic heart disease of crow coronary artery without angina pectoris CHF (congestive heart failure) Chronic combined systolic and diastolic CHF (congestive heart failure) Essential hypertension Hyperlipemia, mixed Lymphedema Nonrheumatic mitral valve insufficiency Chief Complaint SOB EDEMA 3 M FU EORDER FOR LABS RIGHT KNEE xray RIGHT KNEE SOB Reason for Visit Atherosclerotic hear t disease of crow coronary artery without angina pectoris CHF (congestive heart failure) GERD (gastroesophageal reflux disease) Chronic combined systolic and diastolic CHF (congestive heart failure) Essential hypertension Hyperlipemia, mixed Lymphedema Nonrheumatic mitral valve insufficiency Osteoarthritis of right knee Osteoarthritis of right knee Chief Complaint 3 M FU EORDER FOR LABS RIGHT KNEE xray RIGHT KNEE SOB RIGHT KNEE ER visit 05/08/22, PFM pt. LKaylene RIGHT KNEE EDEMA VICTORINO AND BACK PAIN Reason for Visit Atherosclerotic hear t disease of crow coronary artery without angina pectoris CHF (congestive heart failure) GERD (gastroesophageal reflux disease) Chronic combined systolic and diastolic CHF (congestive heart failure) Essential hypertension Hyperlipemia, mixed Lymphedema Nonrheumatic mitral valve insufficiency Osteoarthritis of right knee Osteoarthritis of right knee Osteoarthritis of right knee Atherosclerotic heart disease of crow coronary artery without angina pectoris CHF (congestive heart failure) Chronic combined systolic and diastolic CHF (congestive heart failure) Essential hypertension Hyperlipemia, mixed Lymphedema Nonrheumatic mitral valve insufficiency Osteoarthritis of right knee Chief Complaint EORDER FOR LABS RIGHT KNEE xray RIGHT KNEE SOB RIGHT KNEE ER visit 05/08/22, PFM pt. LKaylene RIGHT KNEE EDEMA VICTORINO AND BACK PAIN RT KNEE/RX HERE Reason for Visit Osteoarthritis of ri ght knee Osteoarthritis of right knee Osteoarthritis of right knee Atherosclerotic heart disease of crow coronary artery without angina pectoris CHF (congestive heart failure) Chronic combined systolic and diastolic CHF (congestive heart failure) Essential hypertension Hyperlipemia, mixed Lymphedema Nonrheumatic mitral valve insufficiency Osteoarthritis of right knee Chief Complaint 6 M FU Diarrhea Reason for Visit Atherosclerotic hear t disease of crow coronary artery without angina pectoris Chronic combined systolic and diastolic CHF (congestive heart failure) Essential hypertension Hyperlipemia, mixed Lymphedema Nonrheumatic mitral valve insufficiency Chief Complaint Diarrhea SOB WEAKNESS 3 M FU CELLULITIS Cellulitis Cellulitis Cellulitis Lower Extremity LEFT FOOT PAIN FAILURE TO THRIVE Reason for Visit Atherosclerotic hear t disease of crow coronary artery without angina pectoris Chronic combined systolic and diastolic CHF (congestive heart failure) Essential hypertension Hyperlipemia, mixed Lymphedema Nonrheumatic mitral valve insufficiency History of heart disease History of ITP Chronic renal insufficiency Cellulitis of left leg Leukocytosis Adult failure to thrive At high risk for falls Atherosclerotic heart disease of crow coronary artery without angina pectoris Falls Inability to walk Essential hypertension Secondary pulmonary arterial hypertension Chief Complaint Diarrhea SOB WEAKNESS 3 M FU CELLULITIS Cellulitis Cellulitis Cellulitis Lower Extremity LEFT FOOT PAIN FAILURE TO THRIVE FAILURE TO THRIVE FAILURE TO THRIVE FAILURE TO THRIVE FAILURE TO THRIVE Reason for Visit Atherosclerotic hear t disease of crow coronary artery without angina pectoris Chronic combined systolic and diastolic CHF (congestive heart failure) Essential hypertension Hyperlipemia, mixed Lymphedema Nonrheumatic mitral valve insufficiency History of heart disease History of ITP Chronic renal insufficiency Cellulitis of left leg Leukocytosis Adult failure to thrive At high risk for falls Atherosclerotic heart disease of crow coronary artery without angina pectoris Falls Inability to walk Essential hypertension Secondary pulmonary arterial hypertension Chief Complaint WEAKNESS 3 M FU CELLULITIS Cellulitis Cellulitis Cellulitis Lower Extremity LEFT FOOT PAIN FAILURE TO THRIVE FAILURE TO THRIVE FAILURE TO THRIVE FAILURE TO THRIVE FAILURE TO THRIVE EDEMA Reason for Visit Atherosclerotic hear t disease of crow coronary artery without angina pectoris Chronic combined systolic and diastolic CHF (congestive heart failure) Essential hypertension Hyperlipemia, mixed Lymphedema Nonrheumatic mitral valve insufficiency History of heart disease History of ITP Chronic renal insufficiency Cellulitis of left leg Leukocytosis Adult failure to thrive At high risk for falls Atherosclerotic heart disease of crow coronary artery without angina pectoris Essential hypertension Secondary pulmonary arterial hypertension Falls Inability to walk Chief Complaint WEAKNESS 3 M FU CELLULITIS Cellulitis Cellulitis Cellulitis Lower Extremity LEFT FOOT PAIN FAILURE TO THRIVE FAILURE TO THRIVE FAILURE TO THRIVE FAILURE TO THRIVE FAILURE TO THRIVE EDEMA EORDER Reason for Visit Atherosclerotic hear t disease of crow coronary artery without angina pectoris Chronic combined systolic and diastolic CHF (congestive heart failure) Essential hypertension Hyperlipemia, mixed Lymphedema Nonrheumatic mitral valve insufficiency History of heart disease History of ITP Chronic renal insufficiency Cellulitis of left leg Leukocytosis Adult failure to thrive At high risk for falls Atherosclerotic heart disease of crow coronary artery without angina pectoris Essential hypertension Secondary pulmonary arterial hypertension Falls Inability to walk Chief Complaint 3 M FU CELLULITIS Cellulitis Cellulitis Cellulitis Lower Extremity LEFT FOOT PAIN FAILURE TO THRIVE FAILURE TO THRIVE FAILURE TO THRIVE FAILURE TO THRIVE FAILURE TO THRIVE EDEMA EORDER Reason for Visit Atherosclerotic hear t disease of crow coronary artery without angina pectoris Chronic combined systolic and diastolic CHF (congestive heart failure) Essential hypertension Hyperlipemia, mixed Lymphedema Nonrheumatic mitral valve insufficiency History of heart disease History of ITP Chronic renal insufficiency Cellulitis of left leg Leukocytosis Adult failure to thrive At high risk for falls Atherosclerotic heart disease of crow coronary artery without angina pectoris Essential hypertension Secondary pulmonary arterial hypertension Falls Inability to walk Chief Complaint Cough Reason for Visit Acute upper respirat ory infection Chief Complaint Admit Date RIGHT KNEE July 14, 2024 1:11pm RIGHT KNEE August 11, 2024 3:52pm EORDER August 11, 2024 4:41pm RIGHT KNEE August 21, 2024 2:12pm RIGHT KNEE August 27, 2024 2: 58pm WOUNDS November 10, 2024 2:1 7pm Reason for Visit Admit Date Osteoarthritis of right knee July 142023 1:11pm Osteoarthritis of right knee August 112023 3:52pm Osteoarthritis of right knee August 212023 2:12pm Osteoarthritis of right knee August 2:58pm Chief Complaint Admit Date WOUNDS November 10, 2024 2:1 7pm INT LAB ORDERS February 19, 2025 2:26 pm Chief Complaint Admit Date WOUNDS November 10, 2024 2:1 7pm INT LAB ORDERS February 19, 2025 2:26 pm SOB, EDEMA March 02, 2025 10:12 am Reason for Referral Specialty Diagnoses / Procedures Referred By Contac t Referred To Contact [facility] Diagnoses Lymphedema of both lower extremities Procedures PT REHAB FOLLOW UP ORDER THERAPEUTIC EXERCISES RE, EA 15 MIN. Grace Bonds, PT [facility] [place] [address] [place] [address] Referral ID Status Reason Start Date Expiration Date Visits Requested Visits Authorized [id number] Pending Review PCP Requested Referral Auto-Generate d Referral 03/21/2022 06/19/2022 1 1 Referral ID Status Reason Start Date Expiration Date Visits Requested Visits Authorized [id number] Pending Review PCP Requested Referral Auto-Generate d Referral 11/23/2022 02/21/2023 1 1 Referral ID Status Reason Start Date Expiration Date Visits Requested Visits Authorized [id number] Pending Review PCP Requested Referral Auto-Generate d Referral 04/12/2023 07/11/2023 1 1 Referral ID Status Reason Start Date Expiration Date Visits Requested Visits Authorized [id number] Pending Review PCP Requested Referral Auto-Generate d Referral 01/17/2024 04/16/2024 1 1 Referral ID Status Reason Start Date Expiration Date Visits Requested Visits Authorized [id number] New Request PCP Requested Referral Auto-Generate d Referral 09/25/2024 12/24/2024 1 1 Additional Source Comments INFORMATION SOURCE (unrecogn ized section and content) DATE CREATED AUTHOR 02/12/2018 Jalyn G[facility]mez [facility] DATE CREATED AUTHOR AUTHOR'S JENAEIZ ATION 02/18/2018 [facility] DATE CREATED AUTHOR AUTHOR'S ORGANIZ ATION 08/03/2018 [facility] DATE CREATED AUTHOR AUTHOR'S ORGANIZ ATION 01/04/2023 [facility] DATE CREATED AUTHOR AUTHOR'S ORGANIZ ATION 04/14/2023 [facility] DATE CREATED AUTHOR AUTHOR'S ORGANIZ ATION 02/20/2025 [facility] DATE CREATED AUTHOR AUTHOR'S ORGANIZ ATION 03/10/2025 [facility] Source Comments (unrecognize d section and content) In the event this informatio n is protected by the Federal Confidentiality of Alcohol and Drug Abuse Patient Records regulations: The Federal rules restrict any use of the information to criminally investigate or prosecute any alcohol or drug abuse patient.[facility] [place] the event this information is protected by the Federal Confidentiality of Alcohol and Drug Abuse Patient Records regulations: The Federal rules restrict any use of the information to criminally investigate or prosecute any alcohol or drug abuse patient.[facility] [place]In the event this information is protected by the Federal Confidentiality of Alcohol and Drug Abuse Patient Records regulations: The Federal rules restrict any use of the information to criminally investigate or prosecute any alcohol or drug abuse patient.[facility] [place]In the event this information is protected by the Federal Confidentiality of Alcohol and Drug Abuse Patient Records regulations: The Federal rules restrict any use of the information to criminally investigate or prosecute any alcohol or drug abuse patient.[facility] [place]woodIn the event this information is protected by the Federal Confidentiality of Alcohol and Drug Abuse Patient Records regulations: The Federal rules restrict any use of the information to criminally investigate or prosecute any alcohol or drug abuse patient.[facility] [place]In the event this information is protected by the Federal Confidentiality of Alcohol and Drug Abuse Patient Records regulations: The Federal rules restrict any use of the information to criminally investigate or prosecute any alcohol or drug abuse patient.[facility] [place]woodIn the event this information is protected by the Federal Confidentiality of Alcohol and Drug Abuse Patient Records regulations: The Federal rules restrict any use of the information to criminally investigate or prosecute any alcohol or drug abuse patient.[facility] [place]woodIn the event this information is protected by the Federal Confidentiality of Alcohol and Drug Abuse Patient Records regulations: The Federal rules restrict any use of the information to criminally investigate or prosecute any alcohol or drug abuse patient.[facility] [place]woodIn the event this information is protected by the Federal Confidentiality of Alcohol and Drug Abuse Patient Records regulations: The Federal rules restrict any use of the information to criminally investigate or prosecute any alcohol or drug abuse patient.[facility] [place]woodIn the event this information is protected by the Federal Confidentiality of Alcohol and Drug Abuse Patient Records regulations: The Federal rules restrict any use of the information to criminally investigate or prosecute any alcohol or drug abuse patient.[facility] [place]woodIn the event this information is protected by the Federal Confidentiality of Alcohol and Drug Abuse Patient Records regulations: The Federal rules restrict any use of the information to criminally investigate or prosecute any alcohol or drug abuse patient.[facility] [place]woodIn the event this information is protected by the Federal Confidentiality of Alcohol and Drug Abuse Patient Records regulations: The Federal rules restrict any use of the information to criminally investigate or prosecute any alcohol or drug abuse patient.[facility] [place]woodIn the event this information is protected by the Federal Confidentiality of Alcohol and Drug Abuse Patient Records regulations: The Federal rules restrict any use of the information to criminally investigate or prosecute any alcohol or drug abuse patient.[facility] [place]woodIn the event this information is protected by the Federal Confidentiality of Alcohol and Drug Abuse Patient Records regulations: The Federal rules restrict any use of the information to criminally investigate or prosecute any alcohol or drug abuse patient.[facility] [place]woodIn the event this information is protected by the Federal Confidentiality of Alcohol and Drug Abuse Patient Records regulations: The Federal rules restrict any use of the information to criminally investigate or prosecute any alcohol or drug abuse patient.[facility] [place]In the event this information is protected by the Federal Confidentiality of Alcohol and Drug Abuse Patient Records regulations: The Federal rules restrict any use of the information to criminally investigate or prosecute any alcohol or drug abuse patient.[facility] [place]woodIn the event this information is protected by the Federal Confidentiality of Alcohol and Drug Abuse Patient Records regulations: The Federal rules restrict any use of the information to criminally investigate or prosecute any alcohol or drug abuse patient.[facility] [place]woodIn the event this information is protected by the Federal Confidentiality of Alcohol and Drug Abuse Patient Records regulations: The Federal rules restrict any use of the information to criminally investigate or prosecute any alcohol or drug abuse patient.[facility] [place]woodIn the event this information is protected by the Federal Confidentiality of Alcohol and Drug Abuse Patient Records regulations: The Federal rules restrict any use of the information to criminally investigate or prosecute any alcohol or drug abuse patient.[facility] [place]woodIn the event this information is protected by the Federal Confidentiality of Alcohol and Drug Abuse Patient Records regulations: The Federal rules restrict any use of the information to criminally investigate or prosecute any alcohol or drug abuse patient.[facility] [place]woodIn the event this information is protected by the Federal Confidentiality of Alcohol and Drug Abuse Patient Records regulations: The Federal rules restrict any use of the information to criminally investigate or prosecute any alcohol or drug abuse patient.[facility] [place]woodIn the event this information is protected by the Federal Confidentiality of Alcohol and Drug Abuse Patient Records regulations: The Federal rules restrict any use of the information to criminally investigate or prosecute any alcohol or drug abuse patient.[facility], [place]In the event this information is protected by the Federal Confidentiality of Alcohol and Drug Abuse Patient Records regulations: The Federal rules restrict any use of the information to criminally investigate or prosecute any alcohol or drug abuse patient.[facility], [place]In the event this information is protected by the Federal Confidentiality of Alcohol and Drug Abuse Patient Records regulations: The Federal rules restrict any use of the information to criminally investigate or prosecute any alcohol or drug abuse patient.[facility], [place]In the event this information is protected by the Federal Confidentiality of Alcohol and Drug Abuse Patient Records regulations: The Federal rules restrict any use of the information to criminally investigate or prosecute any alcohol or drug abuse patient.[facility], [place]In the event this information is protected by the Federal Confidentiality of Alcohol and Drug Abuse Patient Records regulations: The Federal rules restrict any use of the information to criminally investigate or prosecute any alcohol or drug abuse patient.[facility], [place]In the event this information is protected by the Federal Confidentiality of Alcohol and Drug Abuse Patient Records regulations: The Federal rules restrict any use of the information to criminally investigate or prosecute any alcohol or drug abuse patient.[facility], [place]In the event this information is protected by the Federal Confidentiality of Alcohol and Drug Abuse Patient Records regulations: The Federal rules restrict any use of the information to criminally investigate or prosecute any alcohol or drug abuse patient.[facility], [place]In the event this information is protected by the Federal Confidentiality of Alcohol and Drug Abuse Patient Records regulations: The Federal rules restrict any use of the information to criminally investigate or prosecute any alcohol or drug abuse patient.[facility], [place]In the event this information is protected by the Federal Confidentiality of Alcohol and Drug Abuse Patient Records regulations: The Federal rules restrict any use of the information to criminally investigate or prosecute any alcohol or drug abuse patient.[facility], [place]In the event this information is protected by the Federal Confidentiality of Alcohol and Drug Abuse Patient Records regulations: The Federal rules restrict any use of the information to criminally investigate or prosecute any alcohol or drug abuse patient.[facility], [place]In the event this information is protected by the Federal Confidentiality of Alcohol and Drug Abuse Patient Records regulations: The Federal rules restrict any use of the information to criminally investigate or prosecute any alcohol or drug abuse patient.[facility], [place]In the event this information is protected by the Federal Confidentiality of Alcohol and Drug Abuse Patient Records regulations: The Federal rules restrict any use of the information to criminally investigate or prosecute any alcohol or drug abuse patient.[facility], [place]In the event this information is protected by the Federal Confidentiality of Alcohol and Drug Abuse Patient Records regulations: The Federal rules restrict any use of the information to criminally investigate or prosecute any alcohol or drug abuse patient.[facility], [place]In the event this information is protected by the Federal Confidentiality of Alcohol and Drug Abuse Patient Records regulations: The Federal rules restrict any use of the information to criminally investigate or prosecute any alcohol or drug abuse patient.[facility], [place]In the event this information is protected by the Federal Confidentiality of Alcohol and Drug Abuse Patient Records regulations: The Federal rules restrict any use of the information to criminally investigate or prosecute any alcohol or drug abuse patient.[facility], [place]In the event this information is protected by the Federal Confidentiality of Alcohol and Drug Abuse Patient Records regulations: The Federal rules restrict any use of the information to criminally investigate or prosecute any alcohol or drug abuse patient.[facility], [place]In the event this information is protected by the Federal Confidentiality of Alcohol and Drug Abuse Patient Records regulations: The Federal rules restrict any use of the information to criminally investigate or prosecute any alcohol or drug abuse patient.[facility], [place]In the event this information is protected by the Federal Confidentiality of Alcohol and Drug Abuse Patient Records regulations: The Federal rules restrict any use of the information to criminally investigate or prosecute any alcohol or drug abuse patient.[facility], [place]In the event this information is protected by the Federal Confidentiality of Alcohol and Drug Abuse Patient Records regulations: The Federal rules restrict any use of the information to criminally investigate or prosecute any alcohol or drug abuse patient.[facility], [place]In the event this information is protected by the Federal Confidentiality of Alcohol and Drug Abuse Patient Records regulations: The Federal rules restrict any use of the information to criminally investigate or prosecute any alcohol or drug abuse patient.[facility], [place]In the event this information is protected by the Federal Confidentiality of Alcohol and Drug Abuse Patient Records regulations: The Federal rules restrict any use of the information to criminally investigate or prosecute any alcohol or drug abuse patient.[facility], [place]In the event this information is protected by the Federal Confidentiality of Alcohol and Drug Abuse Patient Records regulations: The Federal rules restrict any use of the information to criminally investigate or prosecute any alcohol or drug abuse patient.[facility], [place]In the event this information is protected by the Federal Confidentiality of Alcohol and Drug Abuse Patient Records regulations: The Federal rules restrict any use of the information to criminally investigate or prosecute any alcohol or drug abuse patient.[facility], [place]In the event this information is protected by the Federal Confidentiality of Alcohol and Drug Abuse Patient Records regulations: The Federal rules restrict any use of the information to criminally investigate or prosecute any alcohol or drug abuse patient.[facility], [place]In the event this information is protected by the Federal Confidentiality of Alcohol and Drug Abuse Patient Records regulations: The Federal rules restrict any use of the information to criminally investigate or prosecute any alcohol or drug abuse patient.[facility], [place]In the event this information is protected by the Federal Confidentiality of Alcohol and Drug Abuse Patient Records regulations: The Federal rules restrict any use of the information to criminally investigate or prosecute any alcohol or drug abuse patient.[facility], [place]In the event this information is protected by the Federal Confidentiality of Alcohol and Drug Abuse Patient Records regulations: The Federal rules restrict any use of the information to criminally investigate or prosecute any alcohol or drug abuse patient.[facility], [place]In the event this information is protected by the Federal Confidentiality of Alcohol and Drug Abuse Patient Records regulations: The Federal rules restrict any use of the information to criminally investigate or prosecute any alcohol or drug abuse patient.[facility], [place]In the event this information is protected by the Federal Confidentiality of Alcohol and Drug Abuse Patient Records regulations: The Federal rules restrict any use of the information to criminally investigate or prosecute any alcohol or drug abuse patient.[facility], [place]In the event this information is protected by the Federal Confidentiality of Alcohol and Drug Abuse Patient Records regulations: The Federal rules restrict any use of the information to criminally investigate or prosecute any alcohol or drug abuse patient.[facility], [place]In the event this information is protected by the Federal Confidentiality of Alcohol and Drug Abuse Patient Records regulations: The Federal rules restrict any use of the information to criminally investigate or prosecute any alcohol or drug abuse patient.[facility], [place]In the event this information is protected by the Federal Confidentiality of Alcohol and Drug Abuse Patient Records regulations: The Federal rules restrict any use of the information to criminally investigate or prosecute any alcohol or drug abuse patient.[facility], [place]In the event this information is protected by the Federal Confidentiality of Alcohol and Drug Abuse Patient Records regulations: The Federal rules restrict any use of the information to criminally investigate or prosecute any alcohol or drug abuse patient.[facility], [place]In the event this information is protected by the Federal Confidentiality of Alcohol and Drug Abuse Patient Records regulations: The Federal rules restrict any use of the information to criminally investigate or prosecute any alcohol or drug abuse patient.[facility], [place]In the event this information is protected by the Federal Confidentiality of Alcohol and Drug Abuse Patient Records regulations: The Federal rules restrict any use of the information to criminally investigate or prosecute any alcohol or drug abuse patient.[facility], [place]In the event this information is protected by the Federal Confidentiality of Alcohol and Drug Abuse Patient Records regulations: The Federal rules restrict any use of the information to criminally investigate or prosecute any alcohol or drug abuse patient.[facility], [place]In the event this information is protected by the Federal Confidentiality of Alcohol and Drug Abuse Patient Records regulations: The Federal rules restrict any use of the information to criminally investigate or prosecute any alcohol or drug abuse patient.[facility], [place]In the event this information is protected by the Federal Confidentiality of Alcohol and Drug Abuse Patient Records regulations: The Federal rules restrict any use of the information to criminally investigate or prosecute any alcohol or drug abuse patient.[facility], [place]In the event this information is protected by the Federal Confidentiality of Alcohol and Drug Abuse Patient Records regulations: The Federal rules restrict any use of the information to criminally investigate or prosecute any alcohol or drug abuse patient.[facility], [place]In the event this information is protected by the Federal Confidentiality of Alcohol and Drug Abuse Patient Records regulations: The Federal rules restrict any use of the information to criminally investigate or prosecute any alcohol or drug abuse patient.[facility], [place]In the event this information is protected by the Federal Confidentiality of Alcohol and Drug Abuse Patient Records regulations: The Federal rules restrict any use of the information to criminally investigate or prosecute any alcohol or drug abuse patient.[facility], [place]In the event this information is protected by the Federal Confidentiality of Alcohol and Drug Abuse Patient Records regulations: The Federal rules restrict any use of the information to criminally investigate or prosecute any alcohol or drug abuse patient.[facility], [place]In the event this information is protected by the Federal Confidentiality of Alcohol and Drug Abuse Patient Records regulations: The Federal rules restrict any use of the information to criminally investigate or prosecute any alcohol or drug abuse patient.[facility], [place]In the event this information is protected by the Federal Confidentiality of Alcohol and Drug Abuse Patient Records regulations: The Federal rules restrict any use of the information to criminally investigate or prosecute any alcohol or drug abuse patient.[facility], [place]In the event this information is protected by the Federal Confidentiality of Alcohol and Drug Abuse Patient Records regulations: The Federal rules restrict any use of the information to criminally investigate or prosecute any alcohol or drug abuse patient.[facility], [place]In the event this information is protected by the Federal Confidentiality of Alcohol and Drug Abuse Patient Records regulations: The Federal rules restrict any use of the information to criminally investigate or prosecute any alcohol or drug abuse patient.[facility], [place]In the event this information is protected by the Federal Confidentiality of Alcohol and Drug Abuse Patient Records regulations: The Federal rules restrict any use of the information to criminally investigate or prosecute any alcohol or drug abuse patient.[facility], [place]In the event this information is protected by the Federal Confidentiality of Alcohol and Drug Abuse Patient Records regulations: The Federal rules restrict any use of the information to criminally investigate or prosecute any alcohol or drug abuse patient.[facility], [place]In the event this information is protected by the Federal Confidentiality of Alcohol and Drug Abuse Patient Records regulations: The Federal rules restrict any use of the information to criminally investigate or prosecute any alcohol or drug abuse patient.[facility], [place]In the event this information is protected by the Federal Confidentiality of Alcohol and Drug Abuse Patient Records regulations: The Federal rules restrict any use of the information to criminally investigate or prosecute any alcohol or drug abuse patient.[facility], [place]In the event this information is protected by the Federal Confidentiality of Alcohol and Drug Abuse Patient Records regulations: The Federal rules restrict any use of the information to criminally investigate or prosecute any alcohol or drug abuse patient.[facility], [place]In the event this information is protected by the Federal Confidentiality of Alcohol and Drug Abuse Patient Records regulations: The Federal rules restrict any use of the information to criminally investigate or prosecute any alcohol or drug abuse patient.[facility], [place]In the event this information is protected by the Federal Confidentiality of Alcohol and Drug Abuse Patient Records regulations: The Federal rules restrict any use of the information to criminally investigate or prosecute any alcohol or drug abuse patient.[facility], [place]In the event this information is protected by the Federal Confidentiality of Alcohol and Drug Abuse Patient Records regulations: The Federal rules restrict any use of the information to criminally investigate or prosecute any alcohol or drug abuse patient.[facility], [place]In the event this information is protected by the Federal Confidentiality of Alcohol and Drug Abuse Patient Records regulations: The Federal rules restrict any use of the information to criminally investigate or prosecute any alcohol or drug abuse patient.[facility], [place]In the event this information is protected by the Federal Confidentiality of Alcohol and Drug Abuse Patient Records regulations: The Federal rules restrict any use of the information to criminally investigate or prosecute any alcohol or drug abuse patient.[facility], [place]In the event this information is protected by the Federal Confidentiality of Alcohol and Drug Abuse Patient Records regulations: The Federal rules restrict any use of the information to criminally investigate or prosecute any alcohol or drug abuse patient.[facility], [place]In the event this information is protected by the Federal Confidentiality of Alcohol and Drug Abuse Patient Records regulations: The Federal rules restrict any use of the information to criminally investigate or prosecute any alcohol or drug abuse patient.[facility], [place]In the event this information is protected by the Federal Confidentiality of Alcohol and Drug Abuse Patient Records regulations: The Federal rules restrict any use of the information to criminally investigate or prosecute any alcohol or drug abuse patient.[facility], [place]In the event this information is protected by the Federal Confidentiality of Alcohol and Drug Abuse Patient Records regulations: The Federal rules restrict any use of the information to criminally investigate or prosecute any alcohol or drug abuse patient.[facility], [place]In the event this information is protected by the Federal Confidentiality of Alcohol and Drug Abuse Patient Records regulations: The Federal rules restrict any use of the information to criminally investigate or prosecute any alcohol or drug abuse patient.[facility], [place]In the event this information is protected by the Federal Confidentiality of Alcohol and Drug Abuse Patient Records regulations: The Federal rules restrict any use of the information to criminally investigate or prosecute any alcohol or drug abuse patient.[facility], [place]In the event this information is protected by the Federal Confidentiality of Alcohol and Drug Abuse Patient Records regulations: The Federal rules restrict any use of the information to criminally investigate or prosecute any alcohol or drug abuse patient.[facility], [place]In the event this information is protected by the Federal Confidentiality of Alcohol and Drug Abuse Patient Records regulations: The Federal rules restrict any use of the information to criminally investigate or prosecute any alcohol or drug abuse patient.[facility], [place]In the event this information is protected by the Federal Confidentiality of Alcohol and Drug Abuse Patient Records regulations: The Federal rules restrict any use of the information to criminally investigate or prosecute any alcohol or drug abuse patient.[facility], [place]In the event this information is protected by the Federal Confidentiality of Alcohol and Drug Abuse Patient Records regulations: The Federal rules restrict any use of the information to criminally investigate or prosecute any alcohol or drug abuse patient.[facility], [place]In the event this information is protected by the Federal Confidentiality of Alcohol and Drug Abuse Patient Records regulations: The Federal rules restrict any use of the information to criminally investigate or prosecute any alcohol or drug abuse patient.[facility], [place]In the event this information is protected by the Federal Confidentiality of Alcohol and Drug Abuse Patient Records regulations: The Federal rules restrict any use of the information to criminally investigate or prosecute any alcohol or drug abuse patient.[facility], [place]In the event this information is protected by the Federal Confidentiality of Alcohol and Drug Abuse Patient Records regulations: The Federal rules restrict any use of the information to criminally investigate or prosecute any alcohol or drug abuse patient.[facility], [place]In the event this information is protected by the Federal Confidentiality of Alcohol and Drug Abuse Patient Records regulations: The Federal rules restrict any use of the information to criminally investigate or prosecute any alcohol or drug abuse patient.[facility], [place]In the event this information is protected by the Federal Confidentiality of Alcohol and Drug Abuse Patient Records regulations: The Federal rules restrict any use of the information to criminally investigate or prosecute any alcohol or drug abuse patient.[facility], [place]In the event this information is protected by the Federal Confidentiality of Alcohol and Drug Abuse Patient Records regulations: The Federal rules restrict any use of the information to criminally investigate or prosecute any alcohol or drug abuse patient.[facility], [place]In the event this information is protected by the Federal Confidentiality of Alcohol and Drug Abuse Patient Records regulations: The Federal rules restrict any use of the information to criminally investigate or prosecute any alcohol or drug abuse patient.[facility], [place]In the event this information is protected by the Federal Confidentiality of Alcohol and Drug Abuse Patient Records regulations: The Federal rules restrict any use of the information to criminally investigate or prosecute any alcohol or drug abuse patient.[facility], [place]In the event this information is protected by the Federal Confidentiality of Alcohol and Drug Abuse Patient Records regulations: The Federal rules restrict any use of the information to criminally investigate or prosecute any alcohol or drug abuse patient.[facility] [place]wood[place] the event this information is protected by the Federal Confidentiality of Alcohol and Drug Abuse Patient Records regulations: The Federal rules restrict any use of the information to criminally investigate or prosecute any alcohol or drug abuse patient.[facility] [place]wood[place] the event this information is protected by the Federal Confidentiality of Alcohol and Drug Abuse Patient Records regulations: The Federal rules restrict any use of the information to criminally investigate or prosecute any alcohol or drug abuse patient.[facility] [place] the event this information is protected by the Federal Confidentiality of Alcohol and Drug Abuse Patient Records regulations: The Federal rules restrict any use of the information to criminally investigate or prosecute any alcohol or drug abuse patient.[facility] [place]wood[place] the event this information is protected by the Federal Confidentiality of Alcohol and Drug Abuse Patient Records regulations: The Federal rules restrict any use of the information to criminally investigate or prosecute any alcohol or drug abuse patient.[facility] [place] the event this information is protected by the Federal Confidentiality of Alcohol and Drug Abuse Patient Records regulations: The Federal rules restrict any use of the information to criminally investigate or prosecute any alcohol or drug abuse patient.[facility] [place] the event this information is protected by the Federal Confidentiality of Alcohol and Drug Abuse Patient Records regulations: The Federal rules restrict any use of the information to criminally investigate or prosecute any alcohol or drug abuse patient.[facility] [place]wood[place] the event this information is protected by the Federal Confidentiality of Alcohol and Drug Abuse Patient Records regulations: The Federal rules restrict any use of the information to criminally investigate or prosecute any alcohol or drug abuse patient.[facility] [place]wood[place] the event this information is protected by the Federal Confidentiality of Alcohol and Drug Abuse Patient Records regulations: The Federal rules restrict any use of the information to criminally investigate or prosecute any alcohol or drug abuse patient.[facility] [place]woodIn the event this information is protected by the Federal Confidentiality of Alcohol and Drug Abuse Patient Records regulations: The Federal rules restrict any use of the information to criminally investigate or prosecute any alcohol or drug abuse patient.[facility] [place]wood[place] the event this information is protected by the Federal Confidentiality of Alcohol and Drug Abuse Patient Records regulations: The Federal rules restrict any use of the information to criminally investigate or prosecute any alcohol or drug abuse patient.[facility] [place]woodIn the event this information is protected by the Federal Confidentiality of Alcohol and Drug Abuse Patient Records regulations: The Federal rules restrict any use of the information to criminally investigate or prosecute any alcohol or drug abuse patient.[facility] [place]woodIn the event this information is protected by the Federal Confidentiality of Alcohol and Drug Abuse Patient Records regulations: The Federal rules restrict any use of the information to criminally investigate or prosecute any alcohol or drug abuse patient.[facility] [place]woodIn the event this information is protected by the Federal Confidentiality of Alcohol and Drug Abuse Patient Records regulations: The Federal rules restrict any use of the information to criminally investigate or prosecute any alcohol or drug abuse patient.[facility] [place]woodIn the event this information is protected by the Federal Confidentiality of Alcohol and Drug Abuse Patient Records regulations: The Federal rules restrict any use of the information to criminally investigate or prosecute any alcohol or drug abuse patient.[facility] [place]woodIn the event this information is protected by the Federal Confidentiality of Alcohol and Drug Abuse Patient Records regulations: The Federal rules restrict any use of the information to criminally investigate or prosecute any alcohol or drug abuse patient.[facility] [place]woodIn the event this information is protected by the Federal Confidentiality of Alcohol and Drug Abuse Patient Records regulations: The Federal rules restrict any use of the information to criminally investigate or prosecute any alcohol or drug abuse patient.[facility] [place] Reason for Visit (unrecogniz ed section and content) Reason Comments PT Progress Note Specialty Diagnoses / Procedures Referred By Contac t Referred To Contact [facility] Diagnoses Unsteady gait when walking Lymphedema of both lower extremities Procedures CONSULT TO PHYSICAL THERAPY PHYSICAL THERAPY EVALUATION HIGH COMPLEX 45 MINS Chhaya Stacy MD [address] [place] [address] [facility] [address] [address] Referral ID Status Reason Start Date Expiration Date Visits Requested Visits Authorized [id number] Authorized Auto-Generat ed Referral 05/15/2023 07/25/2023 10 10 Reason Comments Physical Therapy PT Re-eval Reason Comments Physical Therapy Specialty Diagnoses / Procedures Referred By Contac t Referred To Contact [facility] Diagnoses Lymphedema of both lower extremities Procedures PT REHAB FOLLOW UP ORDER THERAPEUTIC EXERCISES RE, EA 15 MIN. Grace Bonds, SHASHA [facility] [place] [address] [place] [address] Referral ID Status Reason Start Date Expiration Date Visits Requested Visits Authorized [id number] Authorized PCP Requested Referral Auto-Generate d Referral 12/04/2022 03/05/2023 4 4 Specialty Diagnoses / Procedures Referred By Contac t Referred To Contact Physical Therapy / PHYSICAL THERAPY Diagnoses I89.0 (ICD-10-CM) - Lymphedema of both lower extremities Procedures EST RS PT LYMPHEDEMA Sanchez, Jaquan K, MD [address] [place] [address] Grace Bonds, PT Referral ID Status Reason Start Date Expiration Date V isits Requested Visits Authorized [id number] Authorized 06/20/2022 08/24/2022 8 8 Referral ID Status Reason Start Date Expiration Date Visits Requested Visits Authorized [id number] Authorized PCP Requested Referral Auto-Generate d Referral 03/21/2022 06/21/2022 12 12 Specialty Diagnoses / Procedures Referred By Contac t Referred To Contact Physical Therapy / PHYSICAL THERAPY Diagnoses Lymphedema [I89.0] Procedures EST RS PT LYMPHEDEMA Self Grace Bonds, PT Referral ID Status Reason Start Date Expiration Date Visits Re quested Visits Authorized [id number] Closed 09/04/2021 08/25/2022 1 1 Specialty Diagnoses / Procedures Referred By Contac t Referred To Contact Physical Therapy / PHYSICAL THERAPY Diagnoses Lymphedema [I89.0] Procedures EST RS PT LYMPHEDEMA Self Grace Bonds, PT [address] [place] [address] Reason Comments Follow Up Specialty Diagnoses / Procedures Referred By Contac t Referred To Contact Physical Therapy / PHYSICAL THERAPY Diagnoses Lymphedema [I89.0] Procedures EST RS PT LYMPHEDEMA Self, Grace Baeza, PT Reason Comments PT Progress Note Specialty Diagnoses / Procedures Referred By Contac t Referred To Contact Physical Therapy / PHYSICAL THERAPY Diagnoses Lymphedema [I89.0] Procedures EST RS PT LYMPHEDEMA Self, Grace Baeza, PT Referral ID Status Reason Start Date Expiration Date V isits Requested Visits Authorized [id number] Closed PCP Requested Referral Auto-Generated Referral 03/21/2022 06/21/2022 12 12 Specialty Diagnoses / Procedures Referred By Contac t Referred To Contact PHYSICAL THERAPY Diagnoses I89.0 (ICD-10-CM) - Lymphedema of both lower extremities Procedures I89.0 (ICD-10-CM) - Lymphedema of both lower extremities Jaquan Sanchez MD [address] [place] [address] Pt [facility] [address] [place] [address] Referral ID Status Reason Start Date Expiration Date V isits Requested Visits Authorized [id number] Outside PCP 08/10/2022 11/08/2022 1 1 Reason Comments Swelling Established Patient Follow Up Pain Referral ID Status Reason Start Date Expiration Date V isits Requested Visits Authorized [id number] Authorized 09/10/2022 12/23/2022 12 12 Reason Comments Results Reason Comments Physical Therapy Specialty Diagnoses / Procedures Referred By Contac t Referred To Contact PHYSICAL THERAPY Diagnoses I89.0 (ICD-10-CM) - Lymphedema of both lower extremities Procedures I89.0 (ICD-10-CM) - Lymphedema of both lower extremities Jaquan Sanchez MD [address] [place] [address] Pt [facility] [address] [place] [address] Reason Onset Date Comments Referral Information 12/06/2022 Reason Comments Patient Question Missed call Reason Comments Appointment Specialty Diagnoses / Procedures Referred By Contac t Referred To Contact Physical Therapy / PHYSICAL THERAPY Diagnoses 01/25/2023I89.0 (ICD-10-CM) - Lymphedema of both lower extremities Procedures EST RS PT LYMPHEDEMA Lemon, Grace, PT Lemon, Rgace, PT Referral ID Status Reason Start Date Expiration Date V isits Requested Visits Authorized [id number] Authorized 01/25/2023 05/14/2023 16 16 Referral ID Status Reason Start Date Expiration Date V isits Requested Visits Authorized [id number] Closed PCP Requested Referral Auto-Generated Referral 12/04/2022 03/05/2023 4 4 Reason Comments Patient Update Specialty Diagnoses / Procedures Referred By Contac t Referred To Contact Physical Therapy / PHYSICAL THERAPY Diagnoses 01/25/2023I89.0 (ICD-10-CM) - Lymphedema of both lower extremities Procedures EST RS PT LYMPHEDEMA Lemon, Grace, PT Lemon, Grace, PT Reason Comments Nail Check Pain Specialty Diagnoses / Procedures Referred By Contac t Referred To Contact Physical Therapy / PHYSICAL THERAPY Diagnoses R26.81 (ICD-10-CM) - Unsteady gait when walking I89.0 (ICD-10-CM) - Lymphedema of both lower extremities Procedures: 9032 - CONSULT TO PHYSICAL THERAPY 30613 (CPT ) - PHYSICAL THERAPY EVALUATION HIGH COMPLEX 45 MINS Start: May 15, 2023 Procedures R26.81 (ICD-10-CM) - Unsteady gait when walking I89.0 (ICD-10-CM) - Lymphedema of both lower extremities Procedures: 9032 - CONSULT TO PHYSICAL THERAPY 52250 (CPT ) - PHYSICAL THERAPY EVALUATION HIGH COMPLEX 45 MINS Start: May 15, 2023 Chhaya Stacy MD [address] [place] [address] Grace Bonds, SHASHA Referral ID Status Reason Start Date Expiration Date V isits Requested Visits Authorized [id number] Authorized 06/27/2023 08/25/2023 16 16 Specialty Diagnoses / Procedures Referred By Contac t Referred To Contact [facility] Diagnoses Lymphedema of both lower extremities Procedures PT REHAB FOLLOW UP ORDER THERAPEUTIC EXERCISES RE, EA 15 MIN. Chhaya Stacy MD [address] [place] [address] [facility] [place] [address] Referral ID Status Reason Start Date Expiration Date Visits Requested Visits Authorized [id number] Authorized PCP Requested Referral Auto-Generate d Referral 09/27/2023 10/26/2023 4 4 Specialty Diagnoses / Procedures Referred By Contac t Referred To Contact PHYSICAL THERAPY Diagnoses Lymphedema, not elsewhere classified I89.0 (ICD-10-CM) - Lymphedema of both lower extremities Procedures I89.0 (ICD-10-CM) - Lymphedema of both lower extremities Chhaya Stacy MD [address] [place] [address] Pt [facility] [address] [place] [address] Referral ID Status Reason Start Date Expiration Date V isits Requested Visits Authorized [id number] Authorized 10/28/2023 01/28/2024 8 8 Reason Comments Established Patient Debridement of Nail Specialty Diagnoses / Procedures Referred By Contac t Referred To Contact PHYSICAL THERAPY Diagnoses Lymphedema, not elsewhere classified I89.0 (ICD-10-CM) - Lymphedema of both lower extremities Procedures I89.0 (ICD-10-CM) - Lymphedema of both lower extremities Chhaya Stacy MD [address] [place] [address] Pt [facility] [address] [place] [address] Referral ID Status Reason Start Date Expiration Date Visits Re quested Visits Authorized [id number] Closed 10/28/2023 01/28/2024 8 8 Referral ID Status Reason Start Date Expiration Date Visits Requested Visits Authorized [id number] Authorized PCP Requested Referral Auto-Generate d Referral 01/22/2024 04/26/2024 4 4 Specialty Diagnoses / Procedures Referred By Contac t Referred To Contact Physical Therapy / PHYSICAL THERAPY Diagnoses Lymphedema of both lower extremities Procedures PT REHAB FOLLOW UP ORDER THERAPEUTIC EXERCISES RE, EA 15 MIN. Chhaya Stacy MD [address] [place] [address] Grace Bonds PT Referral ID Status Reason Start Date Expiration Date V isits Requested Visits Authorized [id number] Closed PCP Requested Referral Auto-Generated Referral 01/22/2024 04/26/2024 4 4 Specialty Diagnoses / Procedures Referred By Contac t Referred To Contact Physical Therapy / PHYSICAL THERAPY Diagnoses Lymphedema, not elsewhere classified Procedures THERAPEUTIC EXERCISES RE, EA 15 MIN. Chhaya Stacy MD [address] [place] [address] Grace Bonds PT Referral ID Status Reason Start Date Expiration Date V isits Requested Visits Authorized [id number] Authorized 03/12/2024 06/26/2024 20 20 Reason Comments Returning Patient's Call Returned pt's v oicemail message requesting more PT visits and concern that her legs/feet are more swollen. Therapist reviewed the appts that were already scheduled with pt and offered an appt for 06/15 that became available today d/t [facility] [place]. Pt first stated she could only keep Saturday's visit (06/19) because her construction driver can only take her on Fridays. Later, she said she would call her construction driver to see if she could bring her on Saturday and would let us know. Reviewed HEP with pt & instructed to do 2x/day Specialty Diagnoses / Procedures Referred By Celestino kohler Referred To Contact PHYSICAL THERAPY Diagnoses 89.0 (ICD-10-CM) - Lymphedema, not elsewhere classified Procedures 89.0 (ICD-10-CM) - Lymphedema, not elsewhere classified Chhaya Stacy MD [address] [place] [address] Pt [facility] [address] [place] [address] Referral ID Status Reason Start Date Expiration Date V isits Requested Visits Authorized [id number] Authorized 07/07/2024 09/25/2024 20 20 Specialty Diagnoses / Procedures Referred By Celestino kohler Referred To Contact PHYSICAL THERAPY Diagnoses 89.0 (ICD-10-CM) - Lymphedema, not elsewhere classified Procedures 89.0 (ICD-10-CM) - Lymphedema, not elsewhere classified Chhaya Stacy MD [address] [place] [address] Pt [facility] [address] [place] [address] Specialty Diagnoses / Procedures Referred By Celestino t Referred To Contact [facility] Diagnoses Lymphedema of both lower extremities Procedures PT REHAB FOLLOW UP ORDER THERAPEUTIC EXERCISES RE, EA 15 MIN. Jason Benitez MD [address] [facility] [address] [place] [address] Phone: tel: fax: [facility] [address] [place] [address] Referral ID Status Reason Start Date Expiration Date Visits Requested Visits Authorized [id number] Authorized PCP Requested Referral Auto-Generate d Referral 09/30/2024 02/22/2025 30 30 Reason Comments Returning Patient's Call Pt left message on therapist voicemail requesting a call back. Therapist called to talk to pt who notified her that her leg is weeping fluid and was itchy. She stated she removed her compression bandage and,It doesn't look very good, and is red. Therapist instructed pt to go to ER d/t high possibility of infection. Pt stated she was told the last time she was there that, she may as well not come back because they don't know how to treat that anyway (the lymphedema). (cont.) Reason Comments Patient Question Therapist spoke with nurse in [facility] who consulted physician on staff and advised pt since she did not currently have a fever, to see her family physician tomorrow for consult and possible referral to wound center. Therapist returned call to pt and relayed these instructions. Pt was satisfied and stated she would do this. Reason Comments Patient Question (cont) Pt was then a dvised to go to Urgent Care and again stated she was told they could not help her. Therapist schedule was full (call was around 5:00pm and therapist full until 7:00pm end of day). Pt voiced that she was upset that no one would see her, but advised that she needed to be seen medically before therapy anyway. Reason Comments Orders Care Teams (unrecognized sec tion and content) Wet Char Conveyor Tender Relationship Specialty Start Date End Date Jason Benitez MD [address] [place] [address] PCP - General Family Practice 06/06/20 Geo Rivera MD [address] [place] [address] Referring Orthotics & Prosthetics 07/11/20 Wet Char Conveyor Tender Relationship Specialty Start Date End Date Jason Benitez MD [address] [place] [address] PCP - General Family Practice 06/06/20 Geo Rivera MD [address] [place] [address] Referring Orthotics & Prosthetics 07/11/20 Wet Char Conveyor Tender Relationship Specialty Start Date End Date Jason Benitez MD [address] [place] [address] PCP - General Family Practice 06/06/20 Geo Rivera MD [address] [place] [phone] Referring Orthotics & Prosthetics 07/11/20 Wet Char Conveyor Tender Relationship Specialty Start Date End Date Jason Benitez MD [address] [place] [address] PCP - General Family Practice 06/06/20 Geo Rivera MD [address] [place] [phone] Referring Orthotics & Prosthetics 07/11/20 Wet Char Conveyor Tender Relationship Specialty Start Date End Date Jason Benitez MD [address] [place] [address] PCP - General Family Practice 06/06/20 Geo Rivera MD [address] [place] [phone] Referring Orthotics & Prosthetics 07/11/20 Wet Char Conveyor Tender Relationship Specialty Start Date End Date Jason Benitez MD [address] [place] [address] PCP - General Family Practice 06/06/20 Geo Rivera MD [address] [place] [address] Referring Orthotics & Prosthetics 07/11/20 Wet Char Conveyor Tender Relationship Specialty Start Date End Date Jason Benitez MD [address] [place] [address] PCP - General Family Practice 06/06/20 Geo Rivera MD [address] [place] [address] Referring Orthotics & Prosthetics 07/11/20 Wet Char Conveyor Tender Relationship Specialty Start Date End Date Jason Benitez MD [address] [place] [address] PCP - General Family Practice 06/06/20 Geo Rivera MD [address] [place] [address] Referring Orthotics & Prosthetics 07/11/20 Wet Char Conveyor Tender Relationship Specialty Start Date End Date Jason Benitez MD [address] [place] [address] PCP - General Family Medicine 06/06/20 Geo Rivera MD [address] [place] [phone] Referring Orthotics & Prosthetics 07/11/20 Wet Char Conveyor Tender Relationship Specialty Start Date End Date Jason Benitez MD [address] [place] [address] PCP - General Family Medicine 06/06/20 Geo Rivera MD [address] [place] [address] Referring Orthotics & Prosthetics 07/11/20 Wet Char Conveyor Tender Relationship Specialty Start Date End Date Jason Benitez MD [address] [place] [address] PCP - General Family Medicine 06/06/20 Geo Rivera MD [address] [place] [address] Referring Orthotics & Prosthetics 07/11/20 Wet Char Conveyor Tender Relationship Specialty Start Date End Date Jason Benitez MD [address] [place] [address] PCP - General Family Medicine 06/06/20 Geo Rivera MD [address] [place] [address] Referring Orthotics & Prosthetics 07/11/20 Wet Char Conveyor Tender Relationship Specialty Start Date End Date Jason Benitez MD [address] [place] [address] PCP - General Family Medicine 06/06/20 Geo Rivera MD [address] [place] [address] Referring Orthotics & Prosthetics 07/11/20 Wet Char Conveyor Tender Relationship Specialty Start Date End Date Jason Benitez MD [address] [place] [address] PCP - General Family Medicine 06/06/20 Geo Rivera MD [address] [place] [phone] Referring Orthotics & Prosthetics 07/11/20 Wet Char Conveyor Tender Relationship Specialty Start Date End Date Jason Benitez MD [address] [place] [address] PCP - General Family Medicine 06/06/20 Geo Rivera MD [address] [place] [address] Referring Orthotics & Prosthetics 07/11/20 Wet Char Conveyor Tender Relationship Specialty Start Date End Date Jason Benitez MD [address] [place] [address] PCP - General Family Medicine 06/06/20 Geo Rivera MD [address] [place] [address] Referring Orthotics & Prosthetics 07/11/20 Wet Char Conveyor Tender Relationship Specialty Start Date End Date Jason Benitez MD [address] [place] [address] PCP - General Family Medicine 06/06/20 Geo Rivera MD [address] [place] [phone] Referring Orthotics & Prosthetics 07/11/20 Wet Char Conveyor Tender Relationship Specialty Start Date End Date Jason Benitez MD [address] [place], [place] [address] PCP - General Family Medicine 06/06/20 Geo Rivera MD [address] [place] [phone] Referring Orthotics & Prosthetics 07/11/20 Team Status: Active Member Role Status Dates Dr. Jason Benitez MD Family Provider Active Dr. Jason Benitez MD Primary Care Provider Active Team Status: Inactive Member Role Status Dates Dr. Jason Benitez MD Primary Care Provide r, Attending Provider, Referring Provider Active Wet Char Conveyor Tender Relationship Specialty Start Date End Date Jason Benitez MD [address] [place] [address] PCP - General Family Medicine 06/06/20 Geo Rivera MD [address] [place] [phone] Referring Orthotics & Prosthetics 07/11/20 Team Status: Inactive Member Role Status Dates Dr. Jason Benitez MD Primary Care Provider, Referring P murphy Active Jaquan Yarbrough SILK WORKER, SILK WORKER-C Attending Provider Active Wet Char Conveyor Tender Relationship Specialty Start Date End Date Jason Benitez MD [address] [place] [address] PCP - General Family Medicine 06/06/20 Geo Rivera MD [address] [place] [address] Referring Orthotics & Prosthetics 07/11/20 Wet Char Conveyor Tender Relationship Specialty Start Date End Date Jason Benitez MD [address] [place] [address] PCP - General Family Medicine 06/06/20 Geo Rivera MD [address] [place] [address] Referring Orthotics & Prosthetics 07/11/20 Wet Char Conveyor Tender Relationship Specialty Start Date End Date Jason Benitez MD [address] [place] [address] PCP - General Family Medicine 06/06/20 Geo Rivera MD [address] [place] [address] Referring Orthotics & Prosthetics 07/11/20 Wet Char Conveyor Tender Relationship Specialty Start Date End Date Jason Benitez MD [address] [place] [address] PCP - General Family Medicine 06/06/20 Geo Rivera MD [address] [place] [address] Referring Orthotics & Prosthetics 07/11/20 Wet Char Conveyor Tender Relationship Specialty Start Date End Date Jason Benitez MD [address] [place] [address] PCP - General Family Medicine 06/06/20 Geo Rivera MD [address] [place] [address] Referring Orthotics & Prosthetics 07/11/20 Wet Char Conveyor Tender Relationship Specialty Start Date End Date Jason Benitez MD [address] [place] [address] PCP - General Family Medicine 06/06/20 Geo Rivera MD [address] [place] [address] Referring Orthotics & Prosthetics 07/11/20 [employer] Relationship Specialty Start Date End Date Jason Benitez MD [address] [place] [address] PCP - General Family Medicine 06/06/20 Geo Rivera MD [address] [place] [address] Referring Orthotics & Prosthetics 07/11/20 Wet [employer]or T[employer] Relationship Specialty Start Date End Date Jason Benitez MD [address] [place] [address] PCP - General Family Medicine 06/06/20 Geo Rivera MD [address] [place] [address] Referring Orthotics & Prosthetics 07/11/20 Wet [employer]or T[employer] Relationship Specialty Start Date End Date Jason Benitez MD [address] [place] [address] PCP - General Family Medicine 06/06/20 Geo Rivera MD [address] [place] [address] Referring Orthotics & Prosthetics 07/11/20 Wet [employer]or T[employer] Relationship Specialty Start Date End Date Jason Benitez MD [address] [place] [address] PCP - General Family Medicine 06/06/20 Geo Rivera MD [address] [place] [address] Referring Orthotics & Prosthetics 07/11/20 Wet [employer]or Tender Relationship Specialty Start Date End Date Jason Benitez MD [address] [address] PCP - General Family Medicine 06/06/20 Geo Rivera MD [address] [place] [address] [place] [address] Referring Orthotics & Prosthetics 07/11/20 Team Status: Active Member Role Status Dates Dr. Jason Benitez MD Primary Care Provider Active Dr. Familia Smalls MD Emergency Provider Active Dr. Nata Rivers DO Admit Provider, Attending Provider, Other Provider Active Team Status: Active Member Role Status Dates Dr. Jason Benitez MD Primary Care Provider Active Dr. Familia Smalls MD Emergency Provider Active Dr. Nata Rivers DO Admit Provider, Other Provide r Active Dr. Armand Bob MD Attending Provider, Other Provid er Active Team Status: Active Member Role Status Dates Dr. Jason Benitez MD Primary Care Provider Active Dr. Jason Quintanilla MD Attending Provider Active Team Status: Inactive Member Role Status Dates Dr. Jason Benitez MD Primary Care Provider Active Dr. Deann Kaur DO Attending Provider, Emergency Pro vider Active Team Status: Inactive Member Role Status Dates Dr. Jason Benitez MD Primary Care Provider Active Dr. Familia Smalls MD Emergency Provider Active Dr. Nata Rivers DO Admit Provider, Other Provide r Active Dr. Armand Bob MD Attending Provider Active Team Status: Inactive Member Role Status Dates Dr. Jason Benitez MD Primary Care Provider Active Dr. Kiko Pittman MD Attending Provider, Emergency Provi ludy Active Team Status: Inactive Member Role Status Dates Dr. Jason Benitez MD Primary Care Provider Active Ed Physician Provider Attending Provider, Emergency Pr ovider Active Team Status: Active Member Role Status Dates Dr. Jason Benitez MD Primary Care Provider Active Dr. Kiko Pittman MD Emergency Provider Active Dr. Mariusz Waters MD Admit Provider, Attending Provi ludy Active Team Status: Inactive Member Role Status Dates Dr. Jason Benitez MD Primary Care Provider Active Dr. Peter Johnson DO Attending Provider, Emergency Provider Active Team Status: Active Member Role Status Dates Dr. Jason Benitez MD Primary Care Provider Active Dr. Jason Quintanilla MD Attending Provider Active Dr. Nata Rivers DO Referring Provider Active Team Status: Active Member Role Status Dates Dr. Jason Benitez MD Primary Care Provider Active Dr. Kiko Pittman MD Emergency Provider Active Dr. Mariusz Waters MD Admit Provider, Other Provider Active Dr. Armand Bob MD Attending Provider, Other Provid er Active Team Status: Active Member Role Status Dates Dr. Jason Benitez MD Primary Care Provider Active Dr. Laurel Brumfield MD Attending Provider Active Team Status: Inactive Member Role Status Dates Dr. Jason Benitez MD Primary Care Provider Active Dr. Kiko Pittman MD Emergency Provider Active Dr. Mariusz Waters MD Admit Provider, Other Provider Active Dr. Armand Bob MD Attending Provider Active [employer] Relationship Specialty Start Date End Date Jason Benitez MD [address] [place], [place] [address] PCP - General Family Medicine 06/06/20 Geo Rivera MD [address] [place], [place] [address] Referring Orthotics & Prosthetics 07/11/20 Wet [employer]or Tender Relationship Specialty Start Date End Date Jason Benitez MD [address] [place], [place] [address] PCP - General Family Medicine 06/06/20 Geo Rivera MD [address] [place], [place] [address] Referring Orthotics & Prosthetics 07/11/20 Wet [employer]or T[employer] Relationship Specialty Start Date End Date Jason Benitez MD [address] [place], [place] [address] PCP - General Family Medicine 06/06/20 Geo Rivera MD [address] [place], [place] [address] Referring Orthotics & Prosthetics 07/11/20 Team Status: Active Member Role Status Dates Dr. Jason Benitez MD Primary Care Provider Active Dr. Laurel Brumfield MD Attending Provider Active Dr. Mariusz Waters MD Referring Provider Active Team Status: Inactive Member Role Status Dates Dr. Jason Benitez MD Primary Care Provider Active Dr. Sage Augustin MD Emergency Provider Active [employer] Relationship Specialty Start Date End Date Jason Benitez MD [address] [place], [place] [address] PCP - General Family Medicine 06/06/20 Geo Rivera MD [address] [place], [place] [address] Referring Orthotics & Prosthetics 07/11/20 Team Status: Inactive Member Role Status Dates Dr. Jason Benitez MD Primary Care Provider Active Dr. Sage Augustin MD Attending Provider, Emergency Provider Active Team Status: Inactive Member Role Status Dates Dr. Jason Benitez MD Primary Care Provider, Attending Francis arrington Active [employer] Relationship Specialty Start Date End Date Jason Benitez MD [address] [place] [address] PCP - General Family Medicine 06/06/20 Geo Rivera MD [address] [place], [place] [address] Referring Orthotics & Prosthetics 07/11/20 Wet [employer] Con[employer]or Tender Relationship Specialty Start Date End Date Jason Benitez MD [address] [place], [place] [address] PCP - General Family Medicine 06/06/20 Geo Rivera MD [address] [place], [place] [address] Referring Orthotics & Prosthetics 07/11/20 Wet [employer]or Tender Relationship Specialty Start Date End Date Jason Benitez MD [address] [place] [address] PCP - General Family Medicine 06/06/20 Geo Rivera MD [address] [place] [address] Referring Orthotics & Prosthetics 07/11/20 Wet [employer] Con[employer]or Tender Relationship Specialty Start Date End Date Jason Benitez MD [address] [place] [address] PCP - General Family Medicine 06/06/20 Geo Rivera MD [address] [place] [address] Referring Orthotics & Prosthetics 07/11/20 Wet [employer] Conveyor Tender Relationship Specialty Start Date End Date Jason Benitez MD [address] [place] [address] PCP - General Family Medicine 06/06/20 Geo Rivera MD [address] [place] [address] Referring Orthotics & Prosthetics 07/11/20 Wet [employer] Con[employer]or Tender Relationship Specialty Start Date End Date Jason Beintez MD [address] [place] [address] PCP - General Family Medicine 06/06/20 Geo Rivera MD [address] [place], [place] [address] Referring Orthotics & Prosthetics 07/11/20 Wet [employer]or Tender Relationship Specialty Start Date End Date Jason Benitez MD [address] [place] [address] PCP - General Family Medicine 06/06/20 Geo Rivera MD [address] [place] [address] Referring Orthotics & Prosthetics 07/11/20 Team Status: Inactive Member Role Status Dates Dr. Jason Benitez MD Primary Care Provider, Referring P murphy Active Jimbo ALEXANDER, PA Attending Provider Active [employer] Relationship Specialty Start Date End Date Jason Benitez MD [address] [place] [address] PCP - General Family Medicine 06/06/20 Geo Rivera MD [address] [place] [address] Referring Orthotics & Prosthetics 07/11/20 Wet [employer]or T[employer] Relationship Specialty Start Date End Date Jason Benitez MD [address] [place] [address] PCP - General Family Medicine 06/06/20 Geo Rivera MD [address] [place] [address] Referring Orthotics & Prosthetics 07/11/20 Wet [employer]or T[employer] Relationship Specialty Start Date End Date Jason Benitez MD [address] [place] [address] PCP - General Family Medicine 06/06/20 Geo Rivera MD [address] [place], [place] [address] Referring Orthotics & Prosthetics 07/11/20 Wet [employer] Con[employer]or Tender Relationship Specialty Start Date End Date Jason Benitez MD [address] [place] [address] PCP - General Family Medicine 06/06/20 Geo Rivera MD [address] [place] [address] Referring Orthotics & Prosthetics 07/11/20 Wet [employer]or T[employer] Relationship Specialty Start Date End Date Jason Benitez MD [address] [place] [address] PCP - General Family Medicine 06/06/20 Geo Rivera MD [address] [place], [place] [address] Referring Orthotics & Prosthetics 07/11/20 Team Status: Active Member Role Status Dates Dr. Jason Benitez MD Primary Care Provider Active Team Status: Inactive Member Role Status Dates Dr. Jason Benitez MD Primary Care Provider Active Start: July 14, 2024 End: July 14, 2024 Dr. Jason Benitez MD Referring Provider Active St art: July 14, 2024 End: July 14, 2024 Alphonso Newell MD Attending Provider Active St art: July 14, 2024 End: July 14, 2024 Team Status: Inactive Member Role Status Dates Dr. Jason Benitez MD Primary Care Provider Active Start: August 11, 2024 End: August 11, 2024 Dr. Jason Benitez MD Referring Provider Active St art: August 11, 2024 End: August 11, 2024 Alphonso Newell MD Attending Provider Active St art: August 11, 2024 End: August 11, 2024 Team Status: Inactive Member Role Status Dates Dr. Jason Benitez MD Primary Care Provider Active Start: August 11, 2024 End: August 11, 2024 Dr. Jason Benitez MD Attending Provider Active St art: August 11, 2024 End: August 11, 2024 Dr. Jason Benitez MD Referring Provider Active St art: August 11, 2024 End: August 11, 2024 Team Status: Inactive Member Role Status Dates Dr. Jason Benitez MD Primary Care Provider Active Start: August 21, 2024 End: August 21, 2024 Dr. Jason Benitez MD Referring Provider Active St art: August 21, 2024 End: August 21, 2024 Alphonso Newell MD Attending Provider Active St art: August 21, 2024 End: August 21, 2024 Team Status: Inactive Member Role Status Dates Dr. Jason Benitez MD Primary Care Provider Active Start: August 27, 2024 End: August 27, 2024 Dr. Jason Benitez MD Referring Provider Active St art: August 27, 2024 End: August 27, 2024 Alphonso Newell MD Attending Provider Active St art: August 27, 2024 End: August 27, 2024 Team Status: Inactive Member Role Status Dates Dr. Jason Benitez MD Primary Care Provider Active Start: November 10, 2024 End: November 10, 2024 Dr. Brad Avalos DO Emergency Provider Active Start: November 10, 2024 End: November 10, 2024 Team Status: Active Member Role/Relationship Status Dates Dr. Jason Benitez MD Primary Care Provider Active Team Status: Inactive Member Role/Relationship Status Dates Dr. Jason Benitez MD Primary Care Provider Active Start: November 10, 2024 End: November 10, 2024 Dr. Brad Avalos DO Attending Provider Active Start: November 10, 2024 End: November 10, 2024 Dr. Brad Avalos DO Emergency Provider Active Start: November 10, 2024 End: November 10, 2024 Team Status: Inactive Member Role/Relationship Status Dates Dr. Jason Benitez MD Primary Care Provider Active Start: February 19, 2025 End: February 19, 2025 Dr. Danial Cook MD Attending Provider Active Start: February 19, 2025 End: February 19, 2025 Dr. Danial Cook MD Referring Provider Active Start: February 19, 2025 End: February 19, 2025 Team Status: Inactive Member Role/Relationship Status Dates Dr. Jason Benitez MD Primary Care Provider Active Start: March 02, 2025 End: March 02, 2025 Dr. Malaika Yuen , Emergency Provider Active Start: March 02, 2025 End: March 02, 2025 Goals (unrecognized section and content) Goals may be documented in a n alternate sectionGoals may be documented in an alternate sectionGoals may be documented in an alternate sectionGoals may be documented in an alternate sectionGoals may be documented in an alternate sectionGoals may be documented in an alternate sectionGoals may be documented in an alternate sectionGoals may be documented in an alternate sectionGoals may be documented in an alternate sectionGoals may be documented in an alternate sectionGoals may be documented in an alternate sectionGoals may be documented in an alternate sectionGoals may be documented in an alternate section FOR RECORDS PERTAINING TO PATIENTS WHO ARE OR HAVE BEEN ENROLLED IN A CHEMICAL DEPENDENCY/SUBSTANCEABUSE PROGRAM, SOME INFORMATION MAY BE OMITTED. This clinical summary was aggregated from multiple sources. Caution should be exercised in using it in the provision of clinical care. This summary normalizes information from multiple sources, and as a consequence, information in this document may materially change the coding, format and clinical context of patient data. In addition, data may be omitted in some cases. CLINICAL DECISIONS SHOULD BE BASED ON THE PRIMARY CLINICAL RECORDS. [employer] provides no warranty or guarantee of the accuracy or completeness of information in this document.
== END | disposition home or self-care (01) ==
PROVIDERS: PCP Family Medicine; Referring Provider Family Medicine; Visit Provider Family Medicine
DX: E03.9 Hypothyroidism, unspecified (principal); I50.30 Unspecified diastolic (congestive) heart failure; I50.812 Chronic right heart failure; E88.09 Other disorders of plasma-protein metabolism, not elsewhere classified
CPT/HCPCS: 36415; 80053; 83880; 84443; 85025

== ENCOUNTER → 2025-03-12 | Outpatient (CLI) | payer MEDICARE, SELFPAY ==
--- NOTE | 2025-03-12 12:49 | ECHOD_ITS ---
Reason For Study Reason For Study: Murmur, SOB Procedure This was a 2D Doppler, Color Flow transthoracic echocardiogram. Exam performed in department. Left Ventricle Normal LV size. Left ventricular systolic function is normal. The left ventricular ejection fraction is 55 %. Stage 1 diastolic dysfunction. No regional wall motion abnormalities noted. Right Ventricle Normal RV size. Normal systolic function. Atria Normal left atrium. Normal right atrium. Mitral Valve There is mild to moderate mitral annular calcification. Mild (1+) eccentric mitral valve insufficiency. Tricuspid Valve Normal tricuspid valve. Mild (1+) tricuspid valve insufficiency. Pulmonary artery systolic pressure is 30 mmHg. Aortic Valve Trisinus/trileaflet aortic valve. Mild focal aortic valve calcification. Pulmonic Valve Normal pulmonic valve. Great Vessels Mildly calcified aortic root. The pulmonary artery is normal size. Inferior vena cava collapse with respiration. Pericardium/Pleural No pericardial effusion. MMode/2D Measurements & Calculations LVIDd: 4.0 cm IVSd: 1.1 cm Ao root diam: 2.9 cm LVIDs: 3.3 cm LVPWd: 1.1 cm RVDd: 3.6 cm FS: 18.3 % LAV(MOD-bp): 51.1 ml LVAd ap4: 26.0 cm2 LVAd ap2: 27.2 cm2 LAV(MOD-bp) Indexed: 28.2 ml/m2 LVLd ap4: 7.3 cm LVLd ap2: 7.6 cm LAV(MOD-sp2): 36.2 ml EDV(MOD-sp4): 78.6 ml EDV(MOD-sp2): 85.6 ml LAV(MOD-sp4): 62.4 ml EDV(sp4-el): 79.1 ml EDV(sp2-el): 83.3 ml LVAs ap4: 17.1 cm2 LVAs ap2: 17.6 cm2 LVLs ap4: 6.3 cm LVLs ap2: 6.6 cm ESV(MOD-sp4): 39.3 ml ESV(MOD-sp2): 40.6 ml ESV(sp4-el): 39.0 ml ESV(sp2-el): 39.7 ml EF(MOD-sp4): 50.0 % EF(MOD-sp2): 52.6 % EF(sp4-el): 50.7 % SV(MOD-sp4): 39.3 ml SV(MOD-sp2): 45.0 ml SV(sp4-el): 40.1 ml SI(MOD-sp4): 21.7 ml/m2 SI(MOD-sp2): 24.8 ml/m2 LA A4 area: 21.5 cm2 LA dimension(2D): 3.1 cm RA A4 area: 11.6 cm2 TAPSE: 1.6 cm Time Measurements MV dec time: 0.22 sec Doppler Measurements & Calculations MV E max gautam: 95.1 cm/sec Lat Peak E' Gautam: 11.9 cm/sec Med Peak E' Gautam: 7.0 cm/sec MV A max gautam: 115.5 cm/sec E/E' lat: 8.0 E/E' med: 13.5 MV E/A: 0.82 Ao V2 max: 151.3 cm/sec LV V1 max: 122.5 cm/sec MV dec slope: 435.8 cm/sec2 Ao max P.2 mmHg LV V1 max P.0 mmHg Ao V2 mean: 109.4 cm/sec LV V1 mean P.0 mmHg Ao mean P.2 mmHg LV V1 mean: 95.9 cm/sec Ao V2 VTI: 38.1 cm LV V1 VTI: 32.8 cm AV (velocity ratio): 0.86 PA V2 max: 122.9 cm/sec TR max gautam: 254.4 cm/sec TR max P.9 mmHg ECHO/Echo Complete Interpretation Summary Normal LV size. Left ventricular systolic function is normal. The left ventricular ejection fraction is 55 %. Stage 1 diastolic dysfunction. Mild (1+) eccentric mitral valve insufficiency. Pulmonary artery systolic pressure is 30 mmHg. Ordering Physician: Danial Cook Referring Physician: Jason Benitez MD Performed By: Ramona Stone RDCS and Student
== END | disposition home or self-care (01) ==
LOC: CVS 12:38
PROVIDERS: PCP Family Medicine; Referring Provider Internal Medicine Cardiovascular Disease; Visit Provider Internal Medicine Cardiovascular Disease
DX: I25.10 Atherosclerotic heart disease of native coronary artery without angina pectoris (principal); I50.41 Acute combined systolic (congestive) and diastolic (congestive) heart failure; I42.8 Other cardiomyopathies; I25.2 Old myocardial infarction; R06.02 Shortness of breath; R01.1 Cardiac murmur, unspecified
CPT/HCPCS: 93306

== ENCOUNTER 2025-06-14 06:57 | Emergency (ER) | payer MEDICARE, SELFPAY ==
[2025-06-14 06:57] VITALS: BP 126/50; PULSE 88; RESP 18; TEMP 36.7; O2SAT 99
[2025-06-14 08:10] LABS: Hematocrit 32.9 % (37-47); Hemoglobin 10.7 g/dL (12.0-15.0); Immature Granulocytes Count 0.140 X10^3/uL (0.0-0.0); Mean Corp Hgb Conc 32.5 g/dL (32-36); Mean Corpuscular Volume 86.1 fL (81-99); Mean Platelet Vol. 11.2 fl (6.2-12.0); NRBC Flagged by Analyzer 0 % (0-5); POSITIVE COUNT YES; POSITIVE MORPHOLOGY YES; Platelet Count 195 K/mm3 (150-450); RBC Distribution Width CV 14.3 % (11.6-14.6); RBC Distribution Width SD 44.8 fl (35.1-43.9); Red Blood Count 3.82 M/mm3 (4.2-5.4); White Blood Count 7.6 K/mm3 (4.4-11.0)
[2025-06-14 08:33] LABS: Anion Gap 13 (5-15); BUN 61 mg/dL (4-19); BUN/Creat Ratio 16.3 RATIO (10-20); Calcium,Total 9.1 mg/dL (7.6-11.0); Carbon Dioxide 22.2 mmol/L (21.0-32.0); Chloride 101 mmol/L (98-108); Glucose 109 mg/dL (70-99); Potassium 4.7 mmol/L (3.3-5.1)
[2025-06-14 08:57] VITALS: BP 141/89; PULSE 18; RESP 20; O2SAT 95
[2025-06-14] MEDS: Cefazolin 1 GM/50 ML BAG IV (09:28)
[2025-06-14 10:00] VITALS: BP 143/78; PULSE 64; RESP 18; TEMP 36.6; O2SAT 99
== END 2025-06-14 10:02 | disposition left against medical advice (07) ==
PROVIDERS: Emergency Provider Emergency Medicine; PCP Family Medicine; Visit Provider Emergency Medicine
DX: L03.116 Cellulitis of left lower limb (principal); I11.0 Hypertensive heart disease with heart failure; I50.42 Chronic combined systolic (congestive) and diastolic (congestive) heart failure; N17.9 Acute kidney failure, unspecified; I25.10 Atherosclerotic heart disease of native coronary artery without angina pectoris; E78.2 Mixed hyperlipidemia; Z90.710 Acquired absence of both cervix and uterus; I89.0 Lymphedema, not elsewhere classified; W18.39XA Other fall on same level, initial encounter; Y93.K9 Activity, other involving animal care; I25.2 Old myocardial infarction; Z85.3 Personal history of malignant neoplasm of breast; Z85.42 Personal history of malignant neoplasm of other parts of uterus; Z86.73 Personal history of transient ischemic attack (TIA), and cerebral infarction without residual deficits; Z79.899 Other long term (current) drug therapy; K21.9 Gastro-esophageal reflux disease without esophagitis
CPT/HCPCS: 99283; 71045; 73552; 73590; 80048; 83605; 85025; 93005; 93971; A4216

== ENCOUNTER 2025-06-16 18:43 | Inpatient (IN) | payer MEDICARE, SELFPAY ==
[2025-06-16 18:44] VITALS: BP 116/104; PULSE 100; RESP 16; TEMP 36.8; O2SAT 100
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
[2025-06-16 20:43] VITALS: BP 109/49; PULSE 90; RESP 18; O2SAT 100
[2025-06-16 20:51] LABS: Hematocrit 30.8 % (37-47); Hemoglobin 9.9 g/dL (12.0-15.0); Immature Granulocytes Count 0.160 X10^3/uL (0.0-0.0); Mean Corp Hgb Conc 32.1 g/dL (32-36); Mean Corpuscular Volume 87.0 fL (81-99); Mean Platelet Vol. 10.5 fl (6.2-12.0); NRBC Flagged by Analyzer 0 % (0-5); Platelet Count 206 K/mm3 (150-450); RBC Distribution Width CV 14.6 % (11.6-14.6); RBC Distribution Width SD 47.1 fl (35.1-43.9); Red Blood Count 3.54 M/mm3 (4.2-5.4); White Blood Count 5.3 K/mm3 (4.4-11.0)
--- OUTSIDE RECORDS SUMMARY | 2025-06-16 21:06 | XMS RPT_ITS | CCD ---
Author Organization [facility] Care Team Providers Care Diabetes Manager Name Role Phone PROVIDER, UNKNOWN Unavailable Unavailable PROVIDER, UNKNOWN Unavailable Unavailable GEO REILLY Unavailable Unavailable ODALIS GUALLPA Unavailable Unavailable Sanchez, Jaquan H Unavailable Unavailable NATA COTO Unavailable Unavailable Sanchez, Jaquan H Unavailable Unavailable SONIDOMIKE Unavailable Unavailable Sanchez, Jaquan H Unavailable Unavailable SONIDO, MIKE Cande Unavailable Unavailable Sanchez, Jaquan H Unavailable Unavailable Tyler Benitez MD Primary Care Provider Geo Rivera MD Unavailable Dr. Tyler Benitez Primary Care Provider Dr. Deann Kaur Emergency Provider Dr. Alanna Vallejo Admit Provider Dr. Alanna Vallejo Other Provider Dr. Jeremie Marley Attending Provider Dr. Jeremie Marley Other Provider Dr. Tisha Stubbs Attending Provider Dr. Tisha Stubbs Other Provider Dr. Jorge Ramirez Other Provider Dr. Demetrio Hinds Attending Provider Dr. Fidencio Marquez Attending Provider Dr. Demetrio Hinds Referring Provider Dr. Tyler Benitez Referring Provider Dr. Jorge Ramirez Attending Provider Dr. Mir Brumfield Attending Provider Dr. Alanna Vallejo Referring Provider Dr. Kaden Callahan Attending Provider Tyler Benitez MD Primary Care Provider Geo Rivera MD Unavailable Dr. Tyler Benitez Primary Care Provider Dr. Tyler Benitez Referring Provider Roof MODEL MAKER FIREARMS, MODEL MAKER FIREARMS-C Jaquan Escobar Attending Provider MD Alphonso Newell Attending Provider Dr. Demetrio Hinds Attending Provider Tyler Benitez MD Primary Care Provider Geo Rivera MD Unavailable Dr. Tyler Benitez Primary Care Provider Dr. Tyler Benitez Referring Provider MD Alphonso Newell Attending Provider Dr. Demetrio Hinds Attending Provider Roof MODEL MAKER FIREARMS, MODEL MAKER FIREARMS-C Jaquan Escobar Attending Provider Tyler Benitez MD Primary Care Provider Geo Rivera MD Unavailable Dr. Tyler Benitez Primary Care Provider Dr. Tyler Benitez Referring Provider Roof MODEL MAKER FIREARMS, MODEL MAKER FIREARMS-C Jaquan Escobar Attending Provider Geo Rivera MD Unavailable Tyler Benitez MD Primary Care Provider Tyler Benitez MD Primary Care Provider TYLER BENITEZ Primary Care Unavailable CHHAYA STACY Attending Unavailable WILLOW FRANK Consulting Unavailable TU GREER Admitting Unavailable Dr. Tyler Benitez Primary Care Provider Dr. Tyler Benitez Referring Provider Roof MODEL MAKER FIREARMS, MODEL MAKER FIREARMS-C Jaquan Escobar Attending Provider Dr. Familia Smalls Emergency Provider Dr. Nata Rivers Admit Provider Dr. Nata Rivers Attending Provider Terisabel, Dr. Jackson Other Provider Dr. Armand Bob Attending Provider Unavailable Dr. Armand Bob Other Provider Unavailable Dr. Tyler Quintanilla Attending Provider Dr. Nata Rivers Referring Provider Dr. Kiko Pittman Emergency Provider Jt, Dr. Vee Admit Provider Jt, Dr. Vee Other Provider Dr. Mir Brumfield Attending Provider Jt, Dr. Vee Referring Provider Dr. Tyler Benitez Primary Care Provider Dr. Tyler Benitez Referring Provider Roof MODEL MAKER FIREARMS, MODEL MAKER FIREARMS-C Jaquan Escobar Attending Provider Dr. Familia Smlals Emergency Provider Dr. Nata Rivers Admit Provider Dr. Nata Rivers Attending Provider Terisabel, Dr. Jackson Other Provider Dr. Armand Bob Attending Provider Unavailable Paulino, Dr. Acuna Other Provider Unavailable Dr. Tyler Quintanilla Attending Provider Dr. Nata Rivers Referring Provider Dr. Kiko Pittman Emergency Provider Jt, Dr. Vee Admit Provider Jt, Dr. Vee Other Provider Dr. Mir Brumfield Attending Provider Jt, Dr. Vee Referring Provider Dr. Tyler Benitez Primary Care Provider Dr. Tyler Benitez Referring Provider [phone] BENJAMIN Velazquez Attending Provider [phone] Emmanuel EDAN, Tyler A Primary Care Provider [phone] Emmanuel DEAN, Dr. Gomez Primary Care Provider Emmanuel DEAN, Dr. Gomez Referring Provider [phone] Alphonso Newell MD Attending Provider [phone] Emmanuel DEAN, Dr. Gomez Attending Provider [phone] Brad Avalos DO Emergency Provider Emmanuel DEAN, Dr. Gomez Primary Care Provider [phone] Brad Avalos DO Attending Provider Joey DEAN, Dr. Barrow Attending Provider Joey DEAN, Dr. Barrow Referring Provider Dr. Malaika Yuen DO Emergency Provider Emmanuel DEAN, Dr. Gomez Primary Care Provider [phone] Malaika Yuen DO Attending Provider Emmanuel DEAN, Dr. Gomez Attending Provider [phone] Emmanuel DEAN, Dr. Gomez Referring Provider [phone] Guzman DEAN, Dr. Atkinson Attending Provider [phone] BENITEZ, TYLER A Referring Unavailable BENITEZ, TYLER A Primary Care Unavailable BENITEZ, TYLER A Primary Care Unavailable CHUKWUANI, CHHAYA A Referring Unavailable LEMON, PRERNA Attending Unavailable BENITEZ, TYLER A Primary Care Unavailable CHUKWUANI, CHHAYA A Referring Unavailable LEMON, PRERNA Attending Unavailable BENITEZ, TYLER A Primary Care Unavailable LEMON, PRERNA Attending Unavailable CHUKWUANI, CHHAYA A Referring Unavailable CHUKWUANI, CHHAYA A Referring Unavailable LEMON, PRERNA Attending Unavailable BENITEZ, TYLER A Primary Care Unavailable BENITEZ, TYLER A Primary Care Unavailable CHUKWUANI, CHHAYA A Referring Unavailable LEMON, PRERNA Attending Unavailable BENITEZ, TYLER A Primary Care Unavailable LEMON, PRERNA Attending Unavailable BENITEZ, TYLER A Referring Unavailable BENITEZ, TYLER A Primary Care Unavailable TESTRARADHA DE PAZ Attending Unavailable TESTRAKE, RADHA Referring Unavailable BNEITEZ, TYLER A Primary Care Unavailable ARYA ARCHER Attending Unavailable BENITEZ, TYLER A Referring Unavailable BENITEZ, TYLER A Primary Care Unavailable LEMON, PRERNA Attending Unavailable BENITEZ, TYLER A Referring Unavailable BENITEZ, TYLER A Referring Unavailable BENITEZ, TYLER A Primary Care Unavailable LEMON, PRERNA Attending Unavailable BENITEZ, TYLER A Primary Care Unavailable CHUKWUANI, CHHAYA A Referring Unavailable LEMON, PRERNA Attending Unavailable CHUKWUANI, CHHAAY A Referring Unavailable LEMON, PRERNA Attending Unavailable BENITEZ, TYLER A Primary Care Unavailable CHUKWUANI, CHHAYA A Referring Unavailable LEMON, PRERNA Attending Unavailable BENITEZ, TYLER A Primary Care Unavailable BENITEZ, TYLER A Primary Care Unavailable LEMON, PRERNA Attending Unavailable CHUKWUANI, CHHAYA A Referring Unavailable BENITEZ, TYLER A Primary Care Unavailable CHUKWUANI, CHHAYA A Referring Unavailable LEMON, PRERNA Attending Unavailable BENITEZ, TYLER A Primary Care Unavailable CHUKWUANI, CHHAYA A Referring Unavailable LEMON, PRERNA Attending Unavailable Benitez, Tyler Referring Unavailable Alphonso Newell Attending Unavailable Benitez, Tyler Primary Care Unavailable Benitez, Tyler Primary Care Unavailable Danial Cook Attending Unavailable Benitez, Tyler Referring Unavailable Benitez, Tyler Referring Unavailable Alphonso Newell Attending Unavailable Benitez, Tylre Primary Care Unavailable Benitez, Tyler Primary Care Unavailable Benitez, Tyler Referring Unavailable Amy Tinajero Attending Unavailabl e Benitez, Tyler Referring Unavailable Danial Cook Attending Unavailable Benitez, Tyler Primary Care Unavailable Benitez, Tyler Primary Care Unavailable Demetrio Hinds Attending Unavailable Benitez, Tyler Referring Unavailable Benitez, Tyler Attending Unavailable Benitez, Tyler Primary Care Unavailable Benitez, Tyler Primary Care Unavailable Sage Augustin Attending Unavailable Benitez, Tyler Primary Care Unavailable Benitez, Tyler Attending Unavailable Brad Avalos Attending Unavailable Benitez, Tyler Primary Care Unavailable Benitez, Tyler Primary Care Unavailable Malaika Yuen Attending Unavailable Benitez, Tyler Primary Care Unavailable Benitez, Tyler Referring Unavailable Benitez, Tyler Attending Unavailable Benitez, Tyler Primary Care Unavailable Danial Cook Attending Unavailable Danial Cook Referring Unavailable Benitez, Tyler Primary Care Unavailable Danial Cook Attending Unavailable Danial Cook Referring Unavailable Benitez, Tyler Referring Unavailable Alphonso Newell Attending Unavailable Benitez, Tyler Primary Care Unavailable Benitez, Tyler Referring Unavailable Alphonso Newell Attending Unavailable Tyler Benitez Primary Care Unavailable Allergies Allergy Classification Reported Allergen(s) Allergy Type Date of Onset Reaction(s) Facility (20 sources) Aspirin; Translations: [ASPIRIN] Drug Allergy 2 Low platelets [facility] (20 sources) Dicyclomine; Translations: [DICYCLOMINE HCL] Drug Allergy 1 Hives [facility] (1 source) OTHER; Translations: [OTHER] Propensity to adverse reactions (disorder) [facility] (20 sources) OTHER [Other] Propensity to adverse reactions 7 [facility] (20 sources) Adhesive Tape-Silicones; Translations: [ADHESIVE TAPE-SILICONES] Drug Intolerance 9 Rash [facility] Work Phone: (20 sources) Adhesive agent; Translations: [adhesive] Allergy to substance 2 [facility] (20 sources) Gadolinium-Cont aining Contrast Media; Translations: [GADOLINIUM-CON TAINING CONTRAST MEDIA] Drug Allergy 3 Shortness of Breath [facility] (15 sources) Gadolinium-Cont aining Contrast Media Drug Allergy 3 Shortness of Breath [facility] Medications Current Medications Medication Drug Class(es) Dates Sig (Normalized) Sig (Original) acetaminophen 500 mg oral tablet (20 sources) Start: 04-15-2023 take 1 tablet by mouth every six hours as needed for pain Acetaminophen (Acetaminophen Extra Strength) 500 mg tablet Active 500 mg PO EVERY 6 HOURS as needed for pain April 15, 2023 12:00am Start: 07-11-2017 take 1 tablet by genie th every four hours as needed acetaminophen (TYLENOL) 325 mg tablet Take 1 tablet by mouth every 4 hours as needed. 0 07/11/2017 Active Comment on above: Take 1 tablet by genie th every 4 hours as needed. [id number] 200 actuat albuterol 0.09 mg/actuat metered dose inhaler (8 sources) beta2-Adrenergic Agonist Start: 05-03-2025 Albuterol Sulfate 90 mcg/actuation HFA aerosol inhaler Active 1 NMA INHALATION EVERY 4-6 HOURS as needed for shortness of breath or wheezing May 03, 2025 1:38pm Start: 08-29-2023 End: 05-03-2025 Albuterol Sulfate 90 mcg/act uation HFA aerosol inhaler Discontinued 1 NMA INHALATION ONCE as needed for shortness of breath or wheezing 6.7 0 August 29, 2023 1:00am May 03, 2025 1:41pm Start: 08-29-2023 Albuterol Sulf ate Active 1 [...] Comment on above: Take 1 tablet by [facility] two times a day for 7 days. FOR 7 DAYS. calcium carbonate 625 mg / cholecalciferol 125 unt oral tablet (20 sources) Vitamin D Start: 07-11-20 17 take 2 tablets by mouth twice daily calcium-cholecalciferol , D3, (OSCAL+D 250) 250-125 mg-unit per tablet Take 2 tablets by mouth twice daily. 0 07/11/2017 Active Comment on above: Take 2 tablets by [facility] twice daily. cholecalciferol 0.025 mg oral capsule (20 sources) Vitamin D Start: 08-12-20 17 take 1 capsule by mouth once daily Cholecalciferol (Vitamin D3) 1,000 UNIT capsule Active 1000 U PO DAILY August 12, 2017 1:00am supplement Start: 08-12-2017 take 2000 [IU] by [facility] once daily Cholecalciferol (Vitamin D3) Active 2000 UNIT PO DAILY August 12, 2017 1:00am Comment on above: Take 1,000 Units by mouth once daily. docusate sodium 100 mg oral capsule (20 sources) Start: 3 take 1 capsule by mouth once daily [...] on above: Take 1 capsule by mo ut twice daily as needed. furosemide 40 mg oral tablet (20 sources) Loop Diuretic Start: 04-01-2023 furosemide (LASIX) 40 mg tablet Take 1 tablet by mouth as needed (Leg swelling). 04/01/2023 Active Start: 10-24-2021 End: 05-16-2022 take 1 tablet by mouth twice daily Furosemide 40 mg tablet Discontinued 40 mg PO TWICE A DAY 60 30 October 25, 2021 12:24pm May 16, 2022 [...] tablet Discontinued 40 mg PO DAILY 90 August 22, 2021 12:31pm October 24, 2021 1:27pm swelling Comment on above: Take 1 tablet by genie th once daily. Take 1 tablet by genie th as needed (Leg swelling). lisinopril 10 mg oral tablet (20 sources) Angiotensin Converting Enzyme Inhibitor Start: 01-21-2024 End: 03-22-2025 take 1 tablet by mouth twice daily Lisinopril 10 mg tablet Active 10 mg PO TWICE A DAY 180 March 22, 2025 11:01am Start: 04-01-2023 take 1 tablet by genie th once daily lisinopril (ZESTRIL) 20 mg tablet Take 1 tablet by mouth once daily. 04/01/2023 Active Start: 06-19-2021 End: 04-04-2023 take 1 tablet by mouth twice daily Lisinopril 20 mg tablet Discontinued 20 mg PO TWICE A DAY 180 November 27, 2022 3:38pm [place] 10th, 2023 8:06pm HTN Start: 04-17-2021 End: 06-19-2021 [...] mouth once daily. Take 1 tablet by genie th once daily. pantoprazole 40 mg delayed release oral tablet (20 sources) Proton Pump Inhibitor Start: take 1 tablet by mouth once daily Pantoprazole (Protonix) 40 mg tablet,delayed release (DR/EC) Active 40 mg PO daily May 03, 2025 1:39pm reflux Start: 07-01-2018 End: 05-03-2025 take 1 tablet by mouth every twelve hours Pantoprazole (Protonix) 40 mg tablet,delayed release (DR/EC) Discontinued 40 mg PO Q12H July 01, 2018 1:00am May 03, 2025 1:41pm reflux Start: 07-12-2017 take 1 tablet by genie th once daily, then take 6 tablets by mouth in the morning pantoprazole DR (PROTONIX) 40 mg tablet Take 1 tablet by mouth DAILY (6 AM). 0 07/12/2017 Active Comment on above: Take 1 tablet by genie th DAILY (6 AM). Completed/Discontinued Medications Medication Drug Class(es) Dates Sig (Normalized) Sig (Original) acetaminophen 325 mg / HYDROcodone bitartrate 5 mg oral tablet (20 sources) Opioid Agonist Start: 02-17-2021 End: 03-06-2021 Hydrocodone-Acetami nophen 5-325 mg tablet Discontinued 1 [...] mg/ml / simethicone 8 mg/ml oral suspension (13 sources) Start: 04-19-2023 End: 01-21-2024 take 1 [...] Comment on above: Take 1 tablet by genie th once daily. atorvastatin 40 mg oral tablet (20 sources) HMG-CoA Reductase Inhibitor Start: 10-24-2021 End: 02-07-2024 take 1 tablet by mouth at bedtime Atorvastatin 40 mg tablet Discontinued 40 mg PO AT BEDTIME 90 90 3 February 28, 2022 3:02pm February 07, 2024 11:35pm CHOLESTEROL benzonatate 100 mg oral capsule (7 sources) Non-narcotic Antitussive Start: 08-29-2023 End: 01-21-2024 [...] 10-24-2021 Blood Pressure Cuff Disconti nued 1 0 January 28, 2020 12:00am October 24, 2021 [...] Start: 12-12-2018 take 2 tablets by mo uth twice daily at mealtime carvedilol (COREG) 3.125 [...] Comment on above: TAKE 1 TABLET BY GENIE TH TWICE DAILY. Administer with a meal/food. Take 6.25 mg by mout h twice daily with meals. cefdinir 300 mg oral capsule (14 sources) Cephalosporin Antibacterial Start: 3 End: 3 take 1 capsule by mouth every twelve hours Cefdinir 300 mg capsule Discontinued 300 mg PO Q12H 10 March 19, 2023 12:00am April 04, 2023 8:05pm cefuroxime 500 mg oral tablet (6 sources) Cephalosporin Antibacterial Start: 5 End: 5 take 1 tablet by mouth twice daily Cefuroxime Axetil 500 mg tablet Discontinued 500 mg PO TWICE A DAY 20 November 10, 2024 12:00am May 03, 2025 1:39pm cephalexin 500 mg oral capsule (20 sources) Cephalosporin Antibacterial Start: 3 End: 3 take 1 capsule by mouth three times daily Cephalexin 500 mg capsule Discontinued 500 mg PO THREE TIMES A DAY 30 May 24, 2023 12:00am July 09, 2023 [...] 3:41pm antibiotic clindamycin 150 mg oral capsule (14 sources) Lincosamide Antibacterial Start: 02-26-2023 End: 04-04-2023 [...] 3:52pm doxycycline hyclate 100 mg oral tablet (14 sources) Tetracycline-class Drug Start: 03-17-2023 End: 04-04-2023 [...] Comment on above: Take 1 tablet by genie th every 6 hours as needed (SBP [...] 2022 2:41pm levoFLOXacin 750 mg oral tablet (15 sources) Quinolone Antimicrobial Start: 04-03-2023 End: 04-12-2023 take 1 tablet by mouth every other day Levofloxacin 750 mg tablet Discontinued 750 mg PO EVERY OTHER DAY April 04, 2023 12:00am April 12, 2023 11:37am Comment on above: Take 1 tablet by genie th every other day for 5 doses. losartan potassium 100 mg oral tablet (20 sources) Angiotensin 2 Receptor Bony Start: 06-11-2018 End: 07-01-2018 take 1 tablet by mouth once daily Losartan 100 mg tablet Discontinued 100 mg PO DAILY 3 June 12, 2018 7:31am July 01, 2018 4:59pm Start: 04-03-2018 End: 06-11-2018 take 1 tablet by mouth once daily Losartan 50 mg tablet Discontinued 50 mg PO daily 30 April 08, 2018 4:35pm June 11, 2018 4:56pm Menthol / Zinc Oxide (13 sources) Start: 04-19-2023 End: 01-21-2024 Menthol-Zinc Oxide [...] times daily. nitroglycerin 0.4 mg sublingual tablet (13 sources) Nitrate Vasodilator Start: 04-19-2023 End: 01-21-2024 Nitroglycerin 0.4 mg Tablet, Sublingual Discontinued 0.4 mg SL Q5M as needed for Cardiac/Chest Pain 0 0 April 19, 2023 12:00am January 21, 2024 2:31pm Start: 08-25-2023 Nitroglycerin Active 0.4 MG SL Q5M 0 [...] Comment on above: Take 1 tablet by genie twice daily. torsemide (20 sources) Loop Diuretic Start: 11-10-2024 End: 02-04-2025 take 1 tablet by mouth once daily Torsemide 40 mg tablet Discontinued 40 mg PO DAILY 5 November 10, 2024 12:00am February 04, 2025 9:19am Start: 11-10-2024 take 1 tablet by genie th once daily Torsemide 40 mg tablet [...] 1:17pm Start: 07-11-2017 take 1 tablet by genie th every six hours as needed traMADol (ULTRAM) 50 mg tablet Take 1 tablet by mouth every 6 hours as needed. 10 tablet 07/11/2017 Active Comment on above: Take 1 tablet by genie every 6 hours as needed. traZODone hydrochloride 50 mg oral tablet (20 sources) Serotonin Reuptake Inhibitor Start: 09-05-19 End: 07-01-20 take 1 tablet by mouth at bedtime Trazodone 50 MG tablet Discontinued 50 mg PO AT BEDTIME September 05, 2017 1:00am July 01, 2018 4:58pm anxiety/sleep triamcinolone acetonide 1 mg/ml topical cream (14 sources) Corticosteroid Start: 03-17-20 End: 02-07-20 Triamcinolone [...] mg tablet Discontinued 80 mg PO DAILY 22 02July 03, 2018 11:11am July 03, 2018 1:19pm Comment on above: Take 80 mg by mouth once daily. vancomycin 1000 mg injection (20 sources) Glycopeptide Antibacterial Start: 017 End: 017 take 500 mg intravenously every twelve hours Vancomycin 1,000 MG/20 ML Vial Discontinued 500 mg IV Q12H August 12, 2017 1:00am August 21, 2017 11:58am antibiotic Problems Active Problems Problem Classification Problem Date Documented Da te Episodic/Chronic Acquired foot deformities (4 sources) Talipes planus; Translations: [Flat foot [pes planus] (acquired), right foot] Onset: 5 03-11-2025 Episodic Acute myocardial infarction (20 sources) Myocardial infarction; [...] Onset: 2 12-12-2011 Episodic Chronic kidney disease (20 sources) Chronic renal insufficiency; Translations: [Chronic kidney [...] 4 07-04-2017 Chronic Conduction disorders (20 sources) Second degree atrioventricular block; Translations: [Atrioventricular block, second degree] Onset: 7 07-09-2017 Chronic Congestive heart failure; [...] atherosclerosis and other heart disease (20 sources) Coronary atherosclerosis; Translations: [Atherosclerotic heart disease of [place] coronary artery without angina pectoris] Onset: 6 06-29-2010 Chronic Comment on above: Patient has a histor y of chronic right coronary artery with [id number] collaterals. LV function was out of proportion in a global fashion for heart cath September 2021. Deficiency and other anemia (20 sources) Normocytic normochromic anemia; Translations: [Anemia, unspecified] 04-28-2021 Episodic Diseases of white blood cells (20 sources) Leukocytosis; Translations: [Elevated white blood cell count, unspecified] 03-20-2023 Chronic Disorders of lipid metabolism (20 sources) Hyperlipidemia; Translations: [Hyperlipidemia, unspecified] Onset: 6 06-29-2010 Chronic Comment on above: Patient is requestin g fasting lipid profile she is on atorvastatin. E Codes: Fall (20 sources) Fall; Translations: [Unspecified fall, initial encounter] [...] guideline directed medical therapy for LV dysfunction. Fluid and electrolyte disorders (20 sources) Hypokalemia; Translations: [Hypokalemia] 04-28-2021 Episodic Heart valve disorders (20 sources) Non-rheumatic mitral regurgitation ; Translations: [Nonrheumatic mitral (valve) insufficiency] Chronic Malaise and fatigue (20 sources) Asthenia; Translations: [Other malaise] 04-28-2021 Episodic Malignant neoplasm without specification of site (20 sources) Malignant neoplastic disease; Translations: [Malignant (primary) neoplasm, unspecified] Onset: 9 11-19-2008 Chronic Menopausal disorders (20 sources) Postmenopausal bleeding; Translations: [Postmenopausal bleeding] Onset: 1 12-11-2010 Chronic Mycoses (20 sources) Onychomycosis; Translations: [Tinea unguium] Onset: Episodic Nonmalignant breast conditions (20 sources) Cellulitis of breast; Translations: [Mastitis without abscess] 08-29-2019 Episodic Nonspecific chest pain (20 sources) Chest pain; Translations: [Chest pain, unspecified] 04-25-2021 Episodic Nutritional deficiencies (20 sources) Vitamin D deficiency; Translations: [Vitamin D deficiency, unspecified] Onset: 0 03-30-2010 Chronic Open wounds of head; neck; and trunk (20 sources) Scalp laceration; Translations: [Laceration without foreign body of scalp, initial encounter] Onset: 7 07-04-2017 Episodic Osteoarthritis (20 sources) Localized, primary osteoarthritis of the hand; Translations: [Primary osteoarthritis, unspecified hand] Onset: 3 06-29-2010 Chronic Osteoporosis (20 sources) Senile osteoporosis; Translations: [Age-related osteoporosis without current pathological fracture] Onset: 6 06-29-2010 Chronic Other aftercare (5 sources) Long-term current use of diuretic; Translations: [Encounter for therapeutic drug level monitoring] 02-03-2025 Episodic Other circulatory disease (20 sources) Abnormal foot pulse; Translations: [Other specified symptoms and signs involving the circulatory and respiratory systems] 04-28-2021 Episodic Other circulatory disease (14 sources) H/O: heart disorder; Translations: [Personal history of other diseases of the circulatory system] 04-04-2023 Episodic Other circulatory disease (7 sources) Personal history of other diseases of the circulatory system; Translations: [Personal history of unspecified circulatory disease] 03-19-2023 Episodic Other connective tissue disease (5 sources) Pain of toe of left foot; Translations: [Pain in left toe(s)] Episodic Other connective tissue disease (5 sources) Pain of toe of right foot; Translations: [Pain in right toe(s)] Episodic Other connective tissue disease (2 sources) Plantar fasciitis; Translations: [Plantar fascial fibromatosis] Episodic Other connective tissue disease (1 source) Other specified soft tissue disorders; Translations: [Leg swelling] Onset: 3 Episodic Other connective tissue disease (14 sources) Heel pain; Translations: [Pain in left foot] 04-13-2023 Episodic Other connective tissue disease (6 sources) Pain in lower limb; Translations: [Pain in leg, unspecified] 02-12-2024 Episodic Other connective tissue disease (1 source) Pain in left toe(s); Translations: [Pain in toe of left foot] Onset: 5 Episodic Other connective tissue disease (1 source) Pain in right toe(s); Translations: [Pain in toe of right foot] Onset: 5 Episodic Other diseases of veins and lymphatics [...] insufficiency (chronic) (peripheral)] 03-26-2020 Episodic Other fractures (20 sources) Fracture of thoracic spine; Translations: [Unspecified fracture of unspecified thoracic vertebra, initial encounter for closed fracture] 12-08-2018 Episodic Other fractures (20 sources) Fracture of cervical spine; Translations: [Fracture of neck, unspecified, initial encounter] 12-08-2018 Episodic Other gastrointestinal disorders (20 sources) Dysphagia; Translations: [Dysphagia, unspecified] Onset: 0 03-30-2010 Episodic Other hematologic conditions (14 sources) History of immune thrombocytopenia; Translations: [Personal [...] injuries and conditions due to external causes (14 sources) At high risk for fall; Translations: [...] Dyspnea; Translations: [Dyspnea, unspecified] 05-16-2022 Episodic Other nervous system disorders (20 sources) Unable to walk; Translations: [Difficulty in [...] Chronic Other nutritional; endocrine; and metabolic disorders (14 sources) Hypomagnesemia; Translations: [Hypomagnesemia] 04-12-2023 Chronic Other nutritional; endocrine; and metabolic disorders (20 sources) Obesity caused by energy imbalance; Translations: [Morbid (severe) obesity due to excess calories] Onset: 3 07-06-2023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 activities, recreational activities, dressing . Current prognosis is Fair due to: chronic nature of impairments, limited support system . Pt arrives with dressings and bandages that have been on for 2 weeks. Drainage went through telfa pads, stockinette and cotton rolls and onto outer layer of bandages. No s/s of infection. Legs not actively weeping. Pt lives alone. Very limited help. Cannot apply bandages or velcro wraps herself. Human Resources Talent Manager states that there are limited resources available to her in [facility]. Pt unsure if she wants to drive this far for therapy. Pt waited until end of session to tell me that she does not want bandages applied to her feet because she is afraid that they will make her fall. Offered to take them off, but did not have time to reapply. Pt needs compression at foot and ankle, as they are swollen. Will need to address in some other way. Pt refused to have them removed here. Said that she would remove bandages once she got home. Is seeing her PCP tomorrow. Will discuss with him what her options may be. Says that she cannot go to [facility], which is closer to home for her because they will not return her phone calls. Told her to call to schedule appointments here, if she chose, after seeing her PCP tomorrow.The patient will benefit from continued skilled therapy [...] Time Frame for Goals and Treatment : 06/15/25 Planned Interventions, Frequency, and Duration: 1x/week, 12 weeks Total Number of Visits Planned: 12 Patient to be seen for Therapeutic exercise (18019), Manual therapy (51278), Therapeutic activities (92505), Self-halfway managem (more content not included)... Normal [facility] CNTHERAPYon 03-17-2025 CNTHERAPY OT/PT/Speech Visit ( AKPTB) AMBER KOROMA ([id number]) 1940 F Date Time Provider Department 03/17/25 4:15 PM ANA ROSA RICKETTS Date Time Provider Department Center 03/17/2025 4:15 PM [id number] ROSA RICEKTTSB [facility] Reason for Visit: PT Re-eval [891] Primary Visit Diagnosis:Lymphedema of both lower extremities [I89.0] Allergies As of Date: 03/17/2025 Noted Allergy Reaction ASPIRIN 09/30/2001 BENTYL (DICYCLOMINE HCL) 03/29/2011 4 - Hives MRI DYE (GADOLINIUM-CONTAINING CO*03/30/2023 12 - Shortness of Breath TAPE (ADHESIVE TAPE-SILICONES) 03/09/2019 2 - Rash Comments: rash Date Reviewed: 03/11/2025 Reviewed by: Dora Oneill, RN - Fully Assessed Prescriptions as of 03/18/2025 - furosemide (LASIX) 40 mg tablet Take [...] by mouth once daily. Letter Text Normal [facility] Echo Completeon 03-12-2025 Echo Complete [facility] [address] [place] [address] Echo Complete 03/12/25 0105 MR#: [id number] Acct: [id number] Name: AMBER KOROMA Rep #: [id number] : 1940 84 From: Demetrio Hinds MD Attending Dr: Dr. Danial Cook MD Status: [facility] Ordering Dr: Danial Cook MD Date: 03/12/25 Location: CVS Sex: F C Admitted: Reason For Study Reason For Study: Murmur, SOB Procedure This was a 2D Doppler, Color Flow transthoracic echocardiogram. Exam performed in department. Left Ventricle Normal LV size. Left ventricular systolic function is normal. The left ventricular ejection fraction is 55 %. Stage 1 diastolic dysfunction. No regional wall motion abnormalities noted. Right Ventricle Normal RV size. Normal systolic function. Atria Normal left atrium. Normal right atrium. Mitral Valve There is mild to moderate mitral annular calcification. Mild (1+) eccentric mitral valve insufficiency. Tricuspid Valve Normal tricuspid valve. Mild (1+) tricuspid valve insufficiency. Pulmonary artery systolic pressure is 30 mmHg. Aortic Valve Trisinus/trileaflet aortic valve. Mild focal aortic valve calcification. Pulmonic Valve Normal pulmonic valve. Great Vessels Mildly calcified aortic root. The pulmonary artery is normal size. Inferior vena cava collapse with respiration. Pericardium/Pleural No pericardial effusion. MMode/2D Measurements Calculations LVIDd: 4.0 cm IVSd: 1.1 cm Ao root diam: 2.9 cm LVIDs: 3.3 cm LVPWd: 1.1 cm RVDd: 3.6 cm FS: 18.3 % LAV(MOD-bp): 51.1 ml LVAd ap4: 26.0 cm2 LVAd ap2: 27.2 cm2 LAV(MOD-bp) Indexed: 28.2 ml/m2 LVLd ap4: 7.3 cm LVLd ap2: 7.6 cm LAV(MOD-sp2): 36.2 ml EDV(MOD-sp4): 78.6 ml EDV(MOD-sp2): 85.6 ml LAV(MOD-sp4): 62.4 ml EDV(sp4-el): 79.1 ml EDV(sp2-el): 83.3 ml LVAs ap4: 17.1 cm2 LVAs ap2: 17.6 cm2 LVLs ap4: 6.3 cm LVLs ap2: 6.6 cm ESV(MOD-sp4): 39.3 ml ESV(MOD-sp2): 40.6 ml ESV(sp4-el): 39.0 ml ESV(sp2-el): 39.7 ml EF(MOD-sp4): 50.0 % EF(MOD-sp2): 52.6 % EF(sp4-el): 50.7 % SV(MOD-sp4): 39.3 ml SV(MOD-sp2): 45.0 ml SV(sp4-el): 40.1 ml SI(MOD-sp4): 21.7 ml/m2 SI(MOD-sp2): 24.8 ml/m2 LA A4 area: 21.5 cm2 LA dimension(2D): 3.1 cm RA A4 area: 11.6 cm2 TAPSE: 1.6 cm Time Measurements MV dec time: 0.22 sec Doppler Measurements Calculations MV E max edwin: 95.1 cm/sec Lat Peak E' Edwin: 11.9 cm/sec Med Peak E' Edwin: 7.0 cm/sec MV A max edwin: 115.5 cm/sec E/E' lat: 8.0 E/E' med: 13.5 MV E/A: 0.82 Ao V2 max: 151.3 cm/sec LV V1 max: 122.5 cm/sec MV dec slope: 435.8 cm/sec2 Ao max P.2 mmHg LV V1 max P.0 mmHg Ao V2 mean: 109.4 cm/sec LV V1 mean P.0 mmHg Ao mean P.2 mmHg LV V1 mean: 95.9 cm/sec Ao V2 VTI: 38.1 cm LV V1 VTI: 32.8 cm AV (velocity ratio): 0.86 PA V2 max: 122.9 cm/sec TR max edwin: 254.4 cm/sec TR max P.9 mmHg ECHO/Echo Complete Interpretation Summary Normal LV size. Left ventricular systolic function is normal. The left ventricular ejection fraction is 55 %. Stage 1 diastolic dysfunction. Mild (1+) eccentric mitral valve insufficiency. Pulmonary artery systolic pressure is 30 mmHg. Ordering Physician: Danial Cook Referring Physician: Tyler Benitez MD Performed By: Ramona Stone RDCS and Student 03/12/251552 Date Demetrio Hinds MD CC: Dr. Tyler Benitez MD; Dr. Danial Cook MD Date Dictated: 03/12/25104 Date Transcribed: 03/12/251552 [employer] Sales Representative: Signed Normal [facility] Echocardiogram study reportO rdered By: Demetrio Hinds on 03-12-2025 Study report [facility] [address] [place] [address] Echo Complete 03/12/25104 MR#: [id number] Acct: [id number] Name: AMBER KOROMA Rep #:[id number] : 1940 84 From: Demetrio Grayson Attending Dr: Dr. Danial Cook MD Status: REG CLI Ordering Dr: Danial Cook MD Date: 03/12/25 Location: [facility] Sex: F C Admitted: Reason For Study Reason For Study: Murmur, SOB Procedure This was a 2D Doppler, Color Flow transthoracic echocardiogram. Exam performed in department. Left Ventricle Normal LV size. Left ventricular systolic function is normal. The left ventricular ejection fraction is 55 %. Stage 1 diastolic dysfunction. No regional wall motion abnormalities noted. Right Ventricle Normal RV size. Normal systolic function. Atria Normal left atrium. Normal right atrium. Mitral Valve There is mild to moderate mitral annular calcification. Mild (1+) eccentric mitral valve insufficiency. Tricuspid Valve Normal tricuspid valve. Mild (1+) tricuspid valve insufficiency. Pulmonary artery systolic pressure is 30 mmHg. Aortic Valve Trisinus/trileaflet aortic valve. Mild focal aortic valve calcification. Pulmonic Valve Normal pulmonic valve. Great Vessels Mildly calcified aortic root. The pulmonary artery is normal size. Inferior venacava collapse with respiration. Pericardium/Pleural No pericardial effusion. MMode/2D Measurements & Calculations LVIDd: 4.0 cm IVSd: 1.1 cm Ao root diam: 2.9 cm LVIDs: 3.3 cm LVPWd: 1.1 cm RVDd: 3.6 cm FS: 18.3 % LAV(MOD-bp): 51.1 ml LVAd ap4: 26.0 cm2 LVAd ap2: 27.2 cm2 LAV(MOD-bp) Indexed: 28.2 ml/m2 LVLd ap4: 7.3 cm LVLd ap2: 7.6 cm LAV(MOD-sp2): 36.2 ml EDV(MOD-sp4): 78.6 ml EDV(MOD-sp2): 85.6 ml LAV(MOD-sp4): 62.4 ml EDV(sp4-el): 79.1 ml EDV(sp2-el): 83.3 ml LVAs ap4: 17.1 cm2 LVAs ap2: 17.6 cm2 LVLs ap4: 6.3 cm LVLs ap2: 6.6 cm ESV(MOD-sp4): 39.3 ml ESV(MOD-sp2): 40.6 ml ESV(sp4-el): 39.0 ml ESV(sp2-el): 39.7 ml EF(MOD-sp4): 50.0 % EF(MOD-sp2): 52.6 % EF(sp4-el): 50.7 % SV(MOD-sp4): 39.3 ml SV(MOD-sp2): 45.0 ml SV(sp4-el): 40.1 ml SI(MOD-sp4): 21.7 ml/m2 SI(MOD-sp2): 24.8 ml/m2 LA A4 area: 21.5 cm2 LA dimension(2D): 3.1 cm RA A4 area: 11.6 cm2 TAPSE: 1.6 cm Time Measurements MV dec time: 0.22 sec Doppler Measurements & Calculations MV E max edwin: 95.1 cm/sec Lat Peak E' Edwin: 11.9 cm/sec Med Peak E' Edwin: 7.0 cm/sec MV A max edwin: 115.5 cm/sec E/E' lat: 8.0 E/E' med: 13.5 MV E/A: 0.82 Ao V2 max: 151.3 cm/sec LV V1 max: 122.5 cm/sec MV dec slope: 435.8 cm/sec2 Ao max P.2 mmHg LV V1 max P.0 mmHg Ao V2 mean: 109.4 cm/sec LV V1 mean P.0 mmHg Ao mean P.2 mmHg LV V1 mean: 95.9 cm/sec Ao V2 VTI: 38.1 cm LV V1 VTI: 32.8 cm AV (velocity ratio): 0.86 PA V2 max: 122.9 cm/sec TR max edwin: 254.4 cm/sec TR max P.9 mmHg ECHO/Echo Complete Interpretation Summary Normal LV size. Left ventricular systolic function is normal. The left ventricular ejection fraction is 55 %. Stage 1 diastolic dysfunction. Mild (1+) eccentric mitral valve insufficiency. Pulmonary artery systolic pressure is 30 mmHg. Ordering Physician: Danial Cook Referring Physician: Tyler Benitez MD Performed By: Ramona Stone RDCS and Student 03/12/25 1553 Date _ Demetrio Hinds MD CC: Dr. Tyler Benitez MD; Dr. Danial Cook MD ~ Date Dictated: 03/12/25104 Date Transcribed: 03/12/251552 [employer] Sales Representative: Signed [facility] Work Phone: Absolute lymphocyte countOrd ered By: Tyler Benitez on 03-11-2025 Lymphocytes Auto (Unsp spec) [#/Vol] 1.00 10*3/uL 0.83-4.51 [facility] Absolute neutrophil countOrd ered By: Tyler Benitez on 03-11-2025 Neutrophils (Bld) [#/Vol] 4.8 10*3/uL 2.0-7.7 [facility] Anion gap in Serum or Plasma Ordered By: Tyler Benitez on 03-11-2025 Anion gap [Moles/Vol] 10 mmol/L 5-15 [facility] Automated lymphocyte count a s percentage of total leukocytesOrdered By: Tyler Benitez on 03-11-2025 Lymphocytes/100 WBC Auto (Unsp spec) 15.2 % Low 19-41 [facility] BUN/creatinine ratioOrdered By: Tyler Benitez on 03-11-2025 Urea nitrogen/Creatinine [Mass ratio] 21.3 mg/mg High 10-20 [facility] Basophil percentageOrdered B y: Tyler Benitez on 03-11-2025 Basophils/100 WBC (Bld) 0.8 % 0-1 [facility] Bilirubin, totalOrdered By: Tyler Benitez on 03-11-2025 Bilirubin [Mass/Vol] 0.26 mg/dL 0.00-1.30 [facility] CBC W/Diff, Automatedon 02-23 Absolute Lymph 1.00 X10 3/uL Normal 0.83-4.51 [facility] Comment on above: Order Comment: Order Date: 03/02/25Order Info: 0184-1 - CBCD Performed By: #### L 500.4050, L100.0100, L501.9520 ####[facility] [address] [place], [address] Absolute Neut 4.8 X10 3/uL Normal 2.0-7.7 [facility] Comment on above: Order Comment: Order Date: 03/02/25Order Info: 0184-1 - CBCD Performed By: #### L 500.4050, L100.0100, L501.9520 ####[facility] [address] [place], [address] Basophils/100 WBC (Bld) 0.8 % Normal 0-1 [facility] Comment on above: Order Comment: Order Date: 03/02/25Order Info: 0184-1 - CBCD Performed By: #### L 500.4050, L100.0100, L501.9520 ####[facility] [address] [place], [address] Eosinophils/100 WBC (Bld) 1.7 % Normal 0-5 [facility] Comment on above: Order Comment: Order Date: 03/02/25Order Info: 0184-1 - CBCD Performed By: #### L 500.4050, L100.0100, L501.9520 ####[facility] [address] [place], [address] Erythrocyte distribution width (RBC) [Ratio] 13.8 % Normal 11.6-14.6 [facility] Comment on above: Order Comment: Order Date: 03/02/25Order Info: 0184-1 - CBCD Performed By: #### L 500.4050, L100.0100, L501.9520 ####[facility] [address] [place], [address] Hematocrit (Bld) [Volume fraction] 37.3 % Normal 37-47 [facility] Comment on above: Order Comment: Order Date: 03/02/25Order Info: 0184- - CBCD Performed By: #### L 500.4050, L100.0100, L501.9520 ####[facility] [address] [place], [address] Hemoglobin (Bld) [Mass/Vol] 11.7 g/dL Low 12.0-15.0 [facility] Comment on above: Order Comment: Order Date: 03/02/25Order Info: 0184- - CBCD Performed By: #### L 500.4050, L100.0100, L501.9520 ####[facility] [address] [place], [address] IG% 0.300 Normal 0.0-0.9 [facility] Comment on above: Order Comment: Order Date: 03/02/25Order Info: 0184-1 - CBCD Result Comment: IG% - Immature Granulocytes (promyelocytes, myelocytes and metamyelocytes) > 1% indicates that a LEFT SHIFT is Present. Performed By: #### L 500.4050, L100.0100, L501.9520 ####[facility] [address] [place], [address] Lymphocytes/100 WBC (Bld) 15.2 % Low 19-41 [facility] Comment on above: Order Comment: Order Date: 03/02/25Order Info: 0184-1 - CBCD Performed By: #### L 500.4050, L100.0100, L501.9520 ####[facility] [address] [place], [address] MCH (RBC) [Entitic mass] 28.3 pg Normal 27.0-32.0 [facility] Comment on above: Order Comment: Order Date: 03/02/25Order Info: 0184-1 - CBCD Performed By: #### L 500.4050, L100.0100, L501.9520 ####[facility] [address] [place], [address] MCHC (RBC) [Mass/Vol] 31.4 g/dL Low 32-36 [facility] Comment on above: Order Comment: Order Date: 03/02/25Order Info: 0184-1 - CBCD Performed By: #### L 500.4050, L100.0100, L501.9520 ####[facility] [address] [place], [address] MCV (RBC) [Entitic vol] 90.1 fL Normal 81-99 [facility] Comment on above: Order Comment: Order Date: 03/02/25Order Info: 0184-1 - CBCD Performed By: #### L 500.4050, L100.0100, L501.9520 ####[facility] [address] [place], [address] Monocytes/100 WBC (Bld) 9.1 % Normal 0-10 [facility] Comment on above: Order Comment: Order Date: 03/02/25Order Info: 0184-1 - CBCD Performed By: #### L 500.4050, L100.0100, L501.9520 ####[facility] [address] [place], [address] Neutrophils/100 WBC (Bld) 72.9 % High 47-70 [facility] Comment on above: Order Comment: Order Date: 03/02/25Order Info: 0184-1 - CBCD Performed By: #### L 500.4050, L100.0100, L501.9520 ####[facility] [address] [place], [address] Nucleated RBC (Bld) [#/Vol] 0 10*3/uL Normal 0-5 [facility] Comment on above: Order Comment: Order Date: 03/02/25Order Info: 0184-1 - CBCD Performed By: #### L 500.4050, L100.0100, L501.9520 ####[facility] [address] [place], [address] Platelet mean volume (Bld) [Entitic vol] 10.4 fL Normal 6.2-12.0 [facility] Comment on above: Order Comment: Order Date: 03/02/25Order Info: 018-1 - CBCD Performed By: #### L 500.4050, L100.0100, L501.9520 ####[facility] [address] [place], [address] Platelets (Bld) [#/Vol] 202 10*3/uL Normal 150-450 [facility] Comment on above: Order Comment: Order Date: 03/02/25Order Info: 0184-1 - CBCD Performed By: #### L 500.4050, L100.0100, L501.9520 ####[facility] [address] [place], [address] RBC (Bld) [#/Vol] 4.14 10*6/uL Low 4.2-5.4 [facility] Comment on above: Order Comment: Order Date: 03/02/25Order Info: 0184-1 - CBCD Performed By: #### L 500.4050, L100.0100, L501.9520 ####[facility] [address] [place], [address] RDW SD 45.3 fl High 35.1-43.9 [facility] Comment on above: Order Comment: Order Date: 03/02/25Order Info: 0184-1 - CBCD Performed By: #### L 500.4050, L100.0100, L501.9520 ####[facility] [address] [place], [place], [address] WBC (Bld) [#/Vol] 6.6 10*3/uL Normal 4.4-11.0 [facility] Comment on above: Order Comment: Order Date: 03/02/25Order Info: 0184-1 - CBCD Performed By: #### L 500.4050, L100.0100, L501.9520 ####[facility] [address] [place], [address] CNOVon 03-11-2025 CNOV Office Visit (PODIWS ) AMBER KOROMA ([id number]) 1940 F Date Time Provider Department 03/11/25 2:00 PM RADHA WOOD PODIWS During your visit today, we recorded the following information about you: Dora Oneill RN 03/11/2025 10:55 PM Signed AMB ROOMING INTAKE FLOWSHEET DATA Patient presents with: Left Foot - Established Patient, Debridement of Nail Right Foot - Established Patient, Debridement of Nail Radha Wood 03/11/2025 10:55 PM Signed Subjective: Patient presents to clinic c/o painful toenails. They state that the nails are especially painful with shoe gear and pressure. Patient states that nails 1-5 b/l are painful. No other pedal complaints at this time. Patient states no change in medications or medical history since last visit. Objective: Patient presents to clinic ambulating in sneakers Vasc: DP and PT pulses are faintly palpable bilateral. CFT is less than 5 seconds bilateral. Skin temperature is warm to cool proximal to distal bilateral. There is mild edema or varicosities noted. Neuro: Protective sensation is decreased to the foot and toes when tested with the 5.07 SWM bilateral. Vibratory sensation is absent at the hallux IPJ bilateral. The hallux is downgoing bilateral. Derm: Nails 1-5 b/l are painful, discolored-yellow, thick, crumbly, dystrophic and with subungal debris. Skin is of normal turgor, texture and hair growth is absent bilateral. There are callus to b/l 5th metatarsal head. No ulcerations, scars, verruca or other lesions noted. Ortho: Muscle strength is 5/5 for all pedal groups tested. Ankle joint DF is decreased with the knee extended with no pain or crepitus noted. 1st MPJ ROM is decreased bilateral. Flattening is noted to b/l feet. 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 Nails 1-5 bilateral were debrided in length and thickness. Callus reduced to b/l 5th metatarsal with dremmel Discussed flatfoot of b/l lower extremity. Recommend custom orthotics and will order with offloading of b/l 5th metatarsal head Patient is to RTC in 3-4 months. Radha Wood DPM Referring Provider: RADHA WOOD [[id number]] Allergies As of Date: 03/11/2025 Noted Allergy Reaction ASPIRIN 09/30/2001 BENTYL (DICYCLOMINE HCL) 03/29/2011 4 - Hives MRI DYE (GADOLINIUM-CONTAINING CO*03/30/2023 12 - Shortness of Breath TAPE (ADHESIVE TAPE-SILICONES) 03/09/2019 2 - Rash Comments: rash Date Reviewed: 03/11/2025 Reviewed by: Dora Oneill RN - Fully Assessed Reason for Visit: Established Patient [175] Debridement of Nail [2924] Established Patient [175] Debridement of Nail [2924] Primary Visit Diagnosis:Onychomycosis [B35.1] Other Visit Diagnoses:Pain in toe of left foot [M79.675] Pain in toe of right foot [M79.674] Ingrowing toenail of left foot [L60.0] Pes planus of both feet [M21.41, M21.42] Callus [L84] Order(s):CONSULT TO PHYSICAL THERAPY [9020] Order #: [id number]: 1 FUTURE Prescriptions as of 03/11/2025 - furosemide (LASIX) 40 mg tablet Take [...] once daily. 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 Normal [facility] Carbon dioxide, total [Moles /volume] in Central venous bloodOrdered By: Tyler Benitez on 03-11-2025 CO2 [Moles/Vol] 28.1 mmol/L 21.0-32.0 [facility] Chloride assayOrdered By: Silvio Benitez on 03-11-2025 Chloride [Moles/Vol] 101 mmol/L 98-108 [facility] Comprehensive Metabolic Prof ilon 03-11-2025 Albumin [Mass/Vol] 3.7 g/dL Normal 3.4-4.8 [facility] Comment on above: Order Comment: Order Date: 03/02/25Order Info: 0786-1 - CMPOrder Info: 3016-3 - TSH Performed By: #### L 500.4050, L100.0100, L501.9520 ####[facility] [address] [place], [address] Albumin/Globulin [Mass ratio] 1.0 {ratio} Normal 0.9-2.4 [facility] Comment on above: Order Comment: Order Date: 03/02/25Order Info: 0786-1 - CMPOrder Info: 3016-3 - TSH Performed By: #### L 500.4050, L100.0100, L501.9520 ####[facility] [address] [place], [address] ALK PHOS 91 U/L Normal 35-104 [facility] Comment on above: Order Comment: Order Date: 03/02/25Order Info: 0786-1 - CMPOrder Info: 3016-3 - TSH Performed By: #### L 500.4050, L100.0100, L501.9520 ####[facility] [address] [place], [address] ALT [Catalytic activity/Vol] 8 U/L Normal <=34 [facility] Comment on above: Order Comment: Order Date: 03/02/25Order Info: 07- - CMPOrder Info: 3016-3 - TSH Performed By: #### L 500.4050, L100.0100, L501.9520 ####[facility] [address] [place], [address] AST [Catalytic activity/Vol] 20 U/L Normal <=31 [facility] Comment on above: Order Comment: Order Date: 03/02/25Order Info: 785-08 - CMPOrder Info: 3015-3 - TSH Performed By: #### L 500.4050, L100.0100, L501.9520 ####[facility] [address] [place], [address] Bilirubin [Mass/Vol] 0.26 mg/dL Normal 0.00-1.30 [facility] Comment on above: Order Comment: Order Date: 03/02/25Order Info: 785-08 - CMPOrder Info: 3015-3 - TSH Performed By: #### L 500.4050, L100.0100, L501.9520 ####[facility] [address] [place], [address] BUN/CRE 21.3 RATIO High 10-20 [facility] Comment on above: Order Comment: Order Date: 03/02/25Order Info: 07 - CMPOrder Info: 3015-3 - TSH Performed By: #### L 500.4050, L100.0100, L501.9520 ####[facility] [address] [place], [address] Calcium [Mass/Vol] 9.7 mg/dL Normal 7.6-11.0 [facility] Comment on above: Order Comment: Order Date: 03/02/25Order Info: 0786- - CMPOrder Info: 6-3 - TSH Performed By: #### L 500.4050, L100.0100, L501.9520 ####[facility] [address] [place], [address] Chloride [Moles/Vol] 101 mmol/L Normal 98-108 [facility] Comment on above: Order Comment: Order Date: 03/02/25Order Info: 785- - CMPOrder Info: 3015-3 - TSH Performed By: #### L 500.4050, L100.0100, L501.9520 ####[facility] [address] [place], [address] CO2 [Moles/Vol] 28.1 mmol/L Normal 21.0-32.0 [facility] Comment on above: Order Comment: Order Date: 03/02/25Order Info: [id number] - CMPOrder Info: 3015-3 - TSH Performed By: #### L 500.4050, L100.0100, L501.9520 ####[facility] [address] [place], [address] Creatinine [Mass/Vol] 1.76 mg/dL High 0.70-1.20 [facility] Comment on above: Order Comment: Order Date: 03/02/25Order Info: 785- - CMPOrder Info: 3015-3 - TSH Performed By: #### L 500.4050, L100.0100, L501.9520 ####[facility] [address] [place], [address] GAP 10 Normal 5-15 [facility] Comment on above: Order Comment: Order Date: 03/02/25Order Info: 07-1 - CMPOrder Info: 6-3 - TSH Performed By: #### L 500.4050, L100.0100, L501.9520 ####[facility] [address] [place], [address] GFR/1.73 sq M.predicted among non-blacks MDRD (S/P/Bld) [Vol rate/Area] 28 mL/min/{1.73_m2} Low >60 [facility] Comment on above: Order Comment: Order Date: 03/02/25Order Info: 0786-1 - CMPOrder Info: 3015-3 - TSH Result Comment: mL/m in/1.73m2 CKD-EPI Creatinine Equation (2020) Performed By: #### L 500.4050, L100.0100, L501.9520 ####[facility] [address] [place], [address] Globulin (S) [Mass/Vol] 3.7 g/dL Normal 2.2-4.2 [facility] Comment on above: Order Comment: Order Date: 03/02/25Order Info: 0786- - CMPOrder Info: 3015-10 - TSH Performed By: #### L 500.4050, L100.0100, L501.9520 ####[facility] [address] [place], [address] Glucose [Mass/Vol] 84 mg/dL Normal 70-99 [facility] Comment on above: Order Comment: Order Date: 03/02/25Order Info: 0786-1 - CMPOrder Info: 3 - TSH Performed By: #### L 500.4050, L100.0100, L501.9520 ####[facility] [address] [place], [address] Potassium [Moles/Vol] 4.4 mmol/L Normal 3.3-5.1 [facility] Comment on above: Order Comment: Order Date: 03/02/25Order Info: 0786-1 - CMPOrder Info: 3 - TSH Performed By: #### L 500.4050, L100.0100, L501.9520 ####[facility] [address] [place], [address] Sodium [Moles/Vol] 140 mmol/L Normal 133-145 [facility] Comment on above: Order Comment: Order Date: 03/02/25Order Info: 0786-1 - CMPOrder Info: 3016-3 - TSH Performed By: #### L 500.4050, L100.0100, L501.9520 ####[facility] [address] [place], [address] T PROT 7.4 g/dL Normal 5.9-8.4 [facility] Comment on above: Order Comment: Order Date: 03/02/25Order Info: 0786-1 - CMPOrder Info: 3016-3 - TSH Performed By: #### L 500.4050, L100.0100, L501.9520 ####[facility] [address] [place], [address] Urea nitrogen [Mass/Vol] 38 mg/dL High 4-19 [facility] Comment on above: Order Comment: Order Date: 03/02/25Order Info: 0786-1 - CMPOrder Info: 3016-3 - TSH Performed By: #### L 500.4050, L100.0100, L501.9520 ####[facility] [address] [place], [address] Eosinophil percentageOrdered By: Tyler Benitez on 03-11-2025 Eosinophils/100 WBC (Bld) 1.7 % 0-5 [facility] Erythrocyte distribution wid th ratioOrdered By: Tyler Benitez on 03-11-2025 Erythrocyte distribution width (RBC) [Ratio] 13.8 % 11.6-14.6 [facility] Erythrocyte distribution wid th standard deviationOrdered By: Tyler Benitez on 03-11-2025 Erythrocyte distribution width (RBC) [Ratio] 45.3 fl High 35.1-43.9 [facility] Glomerular filtration rate ( GFR) estimation/1.73 sq m using serum, plasma, or whole bOrdered By: Tyler eBnitez on 03-11-2025 GFR/1.73 sq M.predicted among non-blacks MDRD (S/P/Bld) [Vol rate/Area] 28 mL/min/{1.73_m2} Low >60 [facility] Comment on above: mL/min/1.73m2 CKD-EP I Creatinine Equation (2020) Hematocrit Auto (Bld) [Volum e fraction]Ordered By: Tyler Benitez on 03-11-2025 Hematocrit (Bld) [Volume fraction] 37.3 % 37-47 [facility] Hemoglobin measurementOrdere d By: Tyler Benitez on 03-11-2025 Hemoglobin (Bld) [Mass/Vol] 11.7 g/dL Low 12.0-15.0 [facility] Immature granulocytes/100 WB C Auto (Bld)Ordered By: Tyler Benitez on 03-11-2025 Immature granulocytes/100 WBC (Bld) 0.300 % 0.0-0.9 [facility] Comment on above: IG% - Immature Granu locytes (promyelocytes, myelocytes and metamyelocytes) > 1% indicates that a LEFT SHIFT is Present. L503.7505on 03-11-2025 Natriuretic peptide B (Bld) [Mass/Vol] 1089 pg/mL Normal <=1800 [facility] Comment on above: Order Comment: Order Date: 03/02/25 Order Info: 0786-1 - CMP Order Info: 3016-3 - TSH Result Comment: Hear t Failure Unlikely: < 300 pg/mL Heart Failure Likely < 50 Years: > 450 pg/mL 50-75 Years: > 900 pg/mL >75 Years: > 1800 pg/mL Performed By: #### L 503.7505 #### [facility] [address] [place] [address], [id number] Laboratory - Chemistry and C hemistry - challengeOrdered By: Tyler Benitez on 03-11-2025 AST [Catalytic activity/Vol] 20 U/L <32 [facility] MCV (mean corpuscular volume ) determinationOrdered By: Tyler Benitez on 03-11-2025 MCV (RBC) [Entitic vol] 90.1 fL 81-99 [facility] Mean corpuscular hemoglobin (MCH) determinationOrdered By: Tyler Benitez on 03-11-2025 MCH (RBC) [Entitic mass] 28.3 pg 27.0-32.0 [facility] Mean corpuscular hemoglobin concentration (MCHC) determinationOrdered By: Tyler Benitez on 03-11-2025 MCHC (RBC) [Mass/Vol] 31.4 g/dL Low 32-36 [facility] Mean platelet volume determi nationOrdered By: Tyler Benitez on 03-11-2025 Platelet mean volume (Bld) [Entitic vol] 10.4 fL 6.2-12.0 [facility] Monocyte percentageOrdered B y: Tyler Benitez on 03-11-2025 Monocytes/100 WBC (Bld) 9.1 % 0-10 [facility] Natriuretic peptide.B prohor nathan N-Terminal [Mass/volume] in Serum or PlasmaOrdered By: Tyler Benitez on 03-11-2025 Natriuretic peptide.B prohormone N-Terminal [Mass/Vol] 1089 pg/mL <1800 [facility] Comment on above: Heart Failure Unlike ly: < 300 pg/mLHeart Failure Likely< 50 Years: > 450 pg/mL50-75 Years: > 900 pg/mL>75 Years: > 1800 pg/mL Neutrophil percentageOrdered By: Tyler Benitez on 03-11-2025 Neutrophils/100 WBC (Bld) 72.9 % High 47-70 [facility] Nucleated red blood cell per centageOrdered By: Tyler Benitez on 03-11-2025 Nucleated RBC/100 WBC (Bld) [Ratio] 0 % 0-5 [facility] Platelet countOrdered By: Silvio Benitez on 03-11-2025 Platelets (Bld) [#/Vol] 202 10*3/uL 150-450 [facility] Potassium measurement (mass/ volume)Ordered By: Tyler Benitez on 03-11-2025 Potassium (Unsp spec) [Mass/Vol] 4.4 mmol/L 3.3-5.1 [facility] RBC Auto (Bld) [#/Vol]Ordere d By: Tyler Benitez on 03-11-2025 RBC (Bld) [#/Vol] 4.14 10*6/uL Low 4.2-5.4 [facility] Serum creatinine measurement (mass/volume)Ordered By: Tyler Benitez on 03-11-2025 Creatinine [Mass/Vol] 1.76 mg/dL High 0.70-1.20 [facility] Serum globulin measurementOr dered By: Tyler Benitez on 03-11-2025 Globulin (S) [Mass/Vol] 3.7 g/dL 2.2-4.2 [facility] Serum glucose measurement (m ass/volume)Ordered By: Tyler Benitez on 03-11-2025 Glucose [Mass/Vol] 84 mg/dL 70-99 [facility] Serum or plasma alanine welch otransferase (ALT) measurementOrdered By: Tyler Benitez on 03-11-2025 ALT [Catalytic activity/Vol] 8 U/L <35 [facility] Serum or plasma albumin lakeisha urement (mass/volume)Ordered By: Tyler Benitez on 03-11-2025 Albumin [Mass/Vol] 3.7 g/dL 3.4-4.8 [facility] Serum or plasma albumin/glob ulin mass ratioOrdered By: Tyler Benitez on 03-11-2025 Albumin/Globulin [Mass ratio] 1.0 {ratio} 0.9-2.4 [facility] Serum or plasma alkaline vania sphatase measurementOrdered By: Tyler Benitez on 03-11-2025 ALP [Catalytic activity/Vol] 91 U/L 35-104 [facility] Serum or plasma calcium lakeisha urement (mass/volume)Ordered By: Tyler Benitez on 03-11-2025 Calcium [Mass/Vol] 9.7 mg/dL 7.6-11.0 [facility] Serum or plasma urea nitroge n measurement (mass/volume)Ordered By: Tyler Benitez on 03-11-2025 Urea nitrogen [Mass/Vol] 38 mg/dL High 4-19 [facility] Sodium levelOrdered By: Tyler Benitez on 03-11-2025 Sodium [Moles/Vol] 140 mmol/L 133-145 [facility] TSH DL <= 0.005 mIU/L QnOrde red By: Tyler Benitez on 03-11-2025 TSH Qn 2.920 uIU/mL 0.300-4.20 0 [facility] Thyroid Stim Hormone (TSH)on 03-11-2025 TSH 2.920 uIU/mL Normal 0.300-4.20 0 [facility] Comment on above: Order Comment: Order Date: 03/02/25Order Info: [id number] - CMPOrder Info: 3016-3 - TSH Performed By: #### L 500.4050, L100.0100, L501.9520 ####[facility] [address] [place], [place], [id number] Total proteinOrdered By: Reyna Benitez on 03-11-2025 Protein [Mass/Vol] 7.4 g/dL 5.9-8.4 [facility] White blood cell (WBC) count Ordered By: Tyler Benitez on 03-11-2025 WBC (Bld) [#/Vol] 6.6 10*3/uL 4.4-11.0 [facility] Absolute lymphocyte countOrd ered By: Malaika Yuen on 03-02-2025 Lymphocytes Auto (Unsp spec) [#/Vol] 0.91 10*3/uL 0.83-4.51 [facility] Absolute neutrophil countOrd ered By: Malaika Yuen on 03-02-2025 Neutrophils (Bld) [#/Vol] 3.8 10*3/uL 2.0-7.7 [facility] Anion gap in Serum or Plasma Ordered By: Malaika Yuen on 03-02-2025 Anion gap [Moles/Vol] 12 mmol/L 5-15 [facility] Automated blood erythrocyte countOrdered By: Malaika Yuen on 03-02-2025 RBC (Bld) [#/Vol] 3.80 10*6/uL Low 4.2-5.4 [facility] Comment on above: Performed By: #### L 100.0100, L500.2500, L503.7505 #### [facility] [address] [place], [place], [id number] Automated blood hematocrit ( percentage)Ordered By: Malaika Yuen on 03-02-2025 Hematocrit (Bld) [Volume fraction] 34.3 % Low 37-47 [facility] Comment on above: Performed By: #### L 100.0100, L500.2500, L503.7505 #### [facility] [address] [place], [address] Automated lymphocyte count a s percentage of total leukocytesOrdered By: Malaika Yuen on 03-02-2025 Lymphocytes/100 WBC Auto (Unsp spec) 17.0 % Low 19-41 [facility] BUN/creatinine ratioOrdered By: Malaika Yuen on 03-02-2025 Urea nitrogen/Creatinine [Mass ratio] 26.5 mg/mg High 10-20 [facility] Basic Metabolic Profile (BMP )on 03-02-2025 BUN/CRE 26.5 RATIO High 10-20 [facility] Comment on above: Performed By: #### L 100.0100, L500.2500, L503.7505 #### [facility] [address] [place], [address] ECRCL 27.62 ml/min Low 50-250 [facility] Comment on above: Performed By: #### L 100.0100, L500.2500, L503.7505 #### [facility] [address] [place], [address] GAP 12 Normal 5-15 [facility] Comment on above: Performed By: #### L 100.0100, L500.2500, L503.7505 #### [facility] [address] [place], [address] Potassium [Moles/Vol] 4.8 mmol/L Normal 3.3-5.1 [facility] Comment on above: Performed By: #### L 100.0100, L500.2500, L503.7505 #### [facility] [address] [place], [address] Basophil percentageOrdered B y: Malaika Yuen on 03-02-2025 Basophils/100 WBC (Bld) 0.6 % Normal 0-1 [facility] Comment on above: Performed By: #### L 100.0100, L500.2500, L503.7505 #### [facility] [address] [place], [address] CBC W/Diff, Automatedon 07-0 8-5 Absolute Lymph 0.91 X10 3/uL Normal 0.83-4.51 [facility] Comment on above: Performed By: #### L 100.0100, L500.2500, L503.7505 #### [facility] [address] [place], [address] Absolute Neut 3.8 X10 3/uL Normal 2.0-7.7 [facility] Comment on above: Performed By: #### L 100.0100, L500.2500, L503.7505 #### [facility] [address] [place], [address] IG% 0.400 Normal 0.0-0.9 [facility] Comment on above: Result Comment: IG% - Immature Granulocytes (promyelocytes, myelocytes and metamyelocytes) > 1% indicates that a LEFT SHIFT is Present. Performed By: #### L 100.0100, L500.2500, L503.7505 #### [facility] [address] [place], [address] Lymphocytes/100 WBC (Bld) 17.0 % Low 19-41 [facility] Comment on above: Performed By: #### L 100.0100, L500.2500, L503.7505 #### [facility] [address] [place], [address] Nucleated RBC (Bld) [#/Vol] 0 10*3/uL Normal 0-5 [facility] Comment on above: Performed By: #### L 100.0100, L500.2500, L503.7505 #### [facility] [address] [place], [address] RDW SD 45.3 fl High 35.1-43.9 [facility] Comment on above: Performed By: #### L 100.0100, L500.2500, L503.7505 #### [facility] [address] [place], [address] Carbon dioxide, total [Moles /volume] in Central venous bloodOrdered By: Malaika Yuen on 03-02-2025 CO2 [Moles/Vol] 21.4 mmol/L Normal 21.0-32.0 [facility] Comment on above: Performed By: #### L 100.0100, L500.2500, L503.7505 #### [facility] [address] [place], [address] Chest PA and Lateralon 03-02 Chest PA and Lateral [facility] Imaging Services [address] [place] [address] Chest PA and Lateral MR#: [id number] Acct: [id number] Name: AMBER KOROMA Rep #: [id number] : 1940 F 84 From: Nata Lazo MD PCP: Dr. Tyler Benitez MD Status: [facility] ER Study: Chest PA and Lateral Date of Exam: 03/02/25 Exam# [id number] Ordering Dr: Malaika Yuen DO EXAM: XR Chest, 2 Views CLINICAL INDICATION: SOB TECHNIQUE: Frontal and lateral views of the chest. COMPARISON: No relevant prior studies available. FINDINGS: LUNGS AND PLEURAL SPACES: See below. HEART: Cardiomegaly with mild congestion. MEDIASTINUM: Unremarkable. Normal mediastinal contour. BONES/JOINTS: Unremarkable. No acute fracture. RAD/Chest PA and Lateral IMPRESSION: Cardiomegaly with mild congestion. Reading [facility] CC: Dr. Malaika Yuen DO; Dr. Tyler Benitez MD [employer] Sales Representative: Signed Normal [facility] Chloride assayOrdered By: Dylan Yuen on 03-02-2025 Chloride [Moles/Vol] 105 mmol/L Normal 98-108 [facility] Comment on above: Performed By: #### L 100.0100, L500.2500, L503.7505 #### [facility] [address] [place], [address] Emergency Department Summary on 03-02-2025 Emergency Department Summary [facility] Medical Records Department [address] [place] [address] Emergency Department Summary 03/02/25 MR#: [id number] Acct: [id number] Name: AMBER KOROMA Rep #: [id number] : 1940 84 From: Malaika Yuen DO PCP: Dr. Tyler Benitez MD Status:REG ER Location: ED HPI [...] weeks ago which was negative for DVT. 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 Normal [facility] Eosinophil percentageOrdered By: Malaika Yuen on 03-02-2025 Eosinophils/100 WBC (Bld) 2.6 % Normal 0-5 [facility] Comment on above: Performed By: #### L 100.0100, L500.2500, L503.7505 #### [facility] [address] [place], [place], [id number] Erythrocyte distribution wid th ratioOrdered By: Malaika Yuen on 03-02-2025 Erythrocyte distribution width (RBC) [Ratio] 13.8 % Normal 11.6-14.6 [facility] Comment on above: Performed By: #### L 100.0100, L500.2500, L503.7505 #### [facility] [address] [place], [address] Erythrocyte distribution wid th standard deviationOrdered By: Malaika Yuen on 03-02-2025 Erythrocyte distribution width (RBC) [Ratio] 45.3 fl High 35.1-43.9 [facility] Glomerular filtration rate ( GFR) estimation/1.73 sq m using serum, plasma, or whole bOrdered By: Malaika Yuen on 03-02-2025 GFR/1.73 sq M.predicted among non-blacks MDRD (S/P/Bld) [Vol rate/Area] 36 mL/min/{1.73_m2} Low >60 [facility] Comment on above: mL/min/1.73m2 CKD-EP I Creatinine Equation (2020) Result Comment: mL/m in/1.73m2 CKD-EPI Creatinine Equation (2020) Performed By: #### L 100.0100, L500.2500, L503.7505 #### [facility] [address] [place], [place], [id number] Hemoglobin measurementOrdere d By: Malaika Yuen on 03-02-2025 Hemoglobin (Bld) [Mass/Vol] 10.9 g/dL Low 12.0-15.0 [facility] Comment on above: Performed By: #### L 100.0100, L500.2500, L503.7505 #### [facility] [address] [facility] [place], [address] Immature granulocytes/100 WB C Auto (Bld)Ordered By: Malaika Yuen on 03-02-2025 Immature granulocytes/100 WBC (Bld) 0.400 % 0.0-0.9 [facility] Comment on above: IG% - Immature Granu locytes (promyelocytes, myelocytes and metamyelocytes) > 1% indicates that a LEFT SHIFT is Present. L503.7505on 03-02-2025 Natriuretic peptide B (Bld) [Mass/Vol] 900 pg/mL Normal <=1800 [facility] Comment on above: Result Comment: Hear t Failure Unlikely: < 300 pg/mL Heart Failure Likely < 50 Years: > 450 pg/mL 50-75 Years: > 900 pg/mL >75 Years: > 1800 pg/mL Performed By: #### L 503.7505 ####[facility] [address] [place], [address] MCV (mean corpuscular volume ) determinationOrdered By: Malaika Yuen on 03-02-2025 MCV (RBC) [Entitic vol] 90.3 fL Normal 81-99 [facility] Comment on above: Performed By: #### L 100.0100, L500.2500, L503.7505 #### [facility] [address] [place], [address] Mean corpuscular hemoglobin (MCH) determinationOrdered By: Malaika Yuen on 03-02-2025 MCH (RBC) [Entitic mass] 28.7 pg Normal 27.0-32.0 [facility] Comment on above: Performed By: #### L 100.0100, L500.2500, L503.7505 #### [facility] [address] [place], [address] Mean corpuscular hemoglobin concentration (MCHC) determinationOrdered By: Malaika Yuen on 03-02-2025 MCHC (RBC) [Mass/Vol] 31.8 g/dL Low 32-36 [facility] Comment on above: Performed By: #### L 100.0100, L500.2500, L503.7505 #### [facility] [address] [place], [address] Mean platelet volume determi nationOrdered By: Malaika Yuen on 03-02-2025 Platelet mean volume (Bld) [Entitic vol] 10.4 fL Normal 6.2-12.0 [facility] Comment on above: Performed By: #### L 100.0100, L500.2500, L503.7505 #### [facility] [address] [place], [address] Monocyte percentageOrdered B y: Malaika Yuen on 03-02-2025 Monocytes/100 WBC (Bld) 9.2 % Normal 0-10 [facility] Comment on above: Performed By: #### L 100.0100, L500.2500, L503.7505 #### [facility] [address] [place], [address] Natriuretic peptide.B prohor nathan N-Terminal [Mass/volume] in Serum or PlasmaOrdered By: Malaika Yuen on 03-02-2025 Natriuretic peptide.B prohormone N-Terminal [Mass/Vol] 900 pg/mL <1800 [facility] Comment on above: Heart Failure Unlike ly: < 300 pg/mLHeart Failure Likely< 50 Years: > 450 pg/mL50-75 Years: > 900 pg/mL>75 Years: > 1800 pg/mL Neutrophil percentageOrdered By: Malaika Yuen on 03-02-2025 Neutrophils/100 WBC (Bld) 70.2 % High 47-70 [facility] Comment on above: Performed By: #### L 100.0100, L500.2500, L503.7505 #### [facility] [address] [place], [address] Nucleated red blood cell per centageOrdered By: Malaika Yuen on 03-02-2025 Nucleated RBC/100 WBC (Bld) [Ratio] 0 % 0-5 [facility] Platelet countOrdered By: Dylan Yuen on 03-02-2025 Platelets (Bld) [#/Vol] 166 10*3/uL Normal 150-450 [facility] Comment on above: Performed By: #### L 100.0100, L500.2500, L503.7505 #### [facility] [address] [place], [address] Potassium measurement (mass/ volume)Ordered By: Malaika Yuen on 03-02-2025 Potassium (Unsp spec) [Mass/Vol] 4.8 mmol/L 3.3-5.1 [facility] Serum creatinine measurement (mass/volume)Ordered By: Malaika Yuen on 03-02-2025 Creatinine [Mass/Vol] 1.41 mg/dL High 0.70-1.20 [facility] Comment on above: Performed By: #### L 100.0100, L500.2500, L503.7505 #### [facility] [address] [place], [address] Serum glucose measurement (m ass/volume)Ordered By: Malaika uYen on 03-02-2025 Glucose [Mass/Vol] 96 mg/dL Normal 70-99 [facility] Comment on above: Performed By: #### L 100.0100, L500.2500, L503.7505 #### [facility] [address] [place], [address] Serum or plasma calcium lakeisha urement (mass/volume)Ordered By: Malaika Yuen on 03-02-2025 Calcium [Mass/Vol] 9.4 mg/dL Normal 7.6-11.0 [facility] Comment on above: Performed By: #### L 100.0100, L500.2500, L503.7505 #### [facility] [address] [place], [address] Serum or plasma urea nitroge n measurement (mass/volume)Ordered By: Malaika Yuen on 03-02-2025 Urea nitrogen [Mass/Vol] 37 mg/dL High 4-19 [facility] Comment on above: Performed By: #### L 100.0100, L500.2500, L503.7505 #### [facility] [address] [place], [address] Sodium levelOrdered By: Ivelisse Yuen on 03-02-2025 Sodium [Moles/Vol] 139 mmol/L Normal 133-145 [facility] Comment on above: Performed By: #### L 100.0100, L500.2500, L503.7505 #### [facility] [address] [place], [address] White blood cell (WBC) count Ordered By: Malaika Yuen on 03-02-2025 WBC (Bld) [#/Vol] 5.4 10*3/uL Normal 4.4-11.0 [facility] Comment on above: Performed By: #### L 100.0100, L500.2500, L503.7505 #### [facility] [address] [place], [address] Absolute lymphocyte countOrd ered By: Danial Cook on 02-19-2025 Lymphocytes Auto (Unsp spec) [#/Vol] 0.98 10*3/uL 0.83-4.51 [facility] Absolute neutrophil countOrd ered By: Danial Cook on 02-19-2025 Neutrophils (Bld) [#/Vol] 4.8 10*3/uL 2.0-7.7 [facility] Anion gap in Serum or Plasma Ordered By: Danial Cook on 02-19-2025 Anion gap [Moles/Vol] 11 mmol/L 5- [facility] Automated lymphocyte count a s percentage of total leukocytesOrdered By: Danial Cook on 02-19-2025 Lymphocytes/100 WBC Auto (Unsp spec) 14.2 % Low - [facility] BUN/creatinine ratioOrdered By: Danial Cook on 02-19-2025 Urea nitrogen/Creatinine [Mass ratio] 18.3 mg/mg - [facility] Basic Metabolic Profile (BMP )on 02-19-2025 BUN/CRE 18.3 RATIO Normal - [facility] Comment on above: Performed By: #### L 100.0100, L500.2500, L503.7505 #### [facility] [facility] [address] [place], [address] Calcium [Mass/Vol] 9.3 mg/dL Normal 7.6-11.0 [facility] Comment on above: Performed By: #### L 100.0100, L500.2500, L503.7505 #### [facility] [address] [place], [address] Chloride [Moles/Vol] 100 mmol/L Normal 98-108 [facility] Comment on above: Performed By: #### L 100.0100, L500.2500, L503.7505 #### [facility] [address] [place], [address] CO2 [Moles/Vol] 28.2 mmol/L Normal 21.0-32.0 [facility] Comment on above: Performed By: #### L 100.0100, L500.2500, L503.7505 #### [facility] [address] [place], [address] Creatinine [Mass/Vol] 1.84 mg/dL High 0.70-1.20 [facility] Comment on above: Performed By: #### L 100.0100, L500.2500, L503.7505 #### [facility] [address] [place], [address] GAP 11 Normal 5-15 [facility] Comment on above: Performed By: #### L 100.0100, L500.2500, L503.7505 #### [facility] [address] [place], [address] GFR/1.73 sq M.predicted among non-blacks MDRD (S/P/Bld) [Vol rate/Area] 26 mL/min/{1.73_m2} Low >60 [facility] Comment on above: Result Comment: mL/m in/1.73m2 CKD-EPI Creatinine Equation (2020) Performed By: #### L 100.0100, L500.2500, L503.7505 #### [facility] [address] [place], [address] Glucose [Mass/Vol] 81 mg/dL Normal 70-99 [facility] Comment on above: Performed By: #### L 100.0100, L500.2500, L503.7505 #### [facility] [address] [place], [address] Potassium [Moles/Vol] 3.7 mmol/L Normal 3.3-5.1 [facility] Comment on above: Performed By: #### L 100.0100, L500.2500, L503.7505 #### [facility] [address] [place], [address] Sodium [Moles/Vol] 139 mmol/L Normal 133-145 [facility] Comment on above: Performed By: #### L 100.0100, L500.2500, L503.7505 #### [facility] [address] [place], [address] Urea nitrogen [Mass/Vol] 34 mg/dL High 4-19 [facility] Comment on above: Performed By: #### L 100.0100, L500.2500, L503.7505 #### [facility] [address] [place], [address] Basophil percentageOrdered B y: Danial Cook on 02-19-2025 Basophils/100 WBC (Bld) 1.0 % 0-1 [facility] CBC W/Diff, Automatedon 01-25 Absolute Lymph 0.98 X10 3/uL Normal 0.83-4.51 [facility] Comment on above: Performed By: #### L 100.0100, L500.2500, L503.7505 #### [facility] [address] [place], [address] Absolute Neut 4.8 X10 3/uL Normal 2.0-7.7 [facility] Comment on above: Performed By: #### L 100.0100, L500.2500, L503.7505 #### [facility] [address] [place], [address] Basophils/100 WBC (Bld) 1.0 % Normal 0-1 [facility] Comment on above: Performed By: #### L 100.0100, L500.2500, L503.7505 #### [facility] [address] [place], [address] Eosinophils/100 WBC (Bld) 2.6 % Normal 0-5 [facility] Comment on above: Performed By: #### L 100.0100, L500.2500, L503.7505 #### [facility] [address] [place], [address] Erythrocyte distribution width (RBC) [Ratio] 14.2 % Normal 11.6-14.6 [facility] Comment on above: Performed By: #### L 100.0100, L500.2500, L503.7505 #### [facility] [address] [place], [address] Hematocrit (Bld) [Volume fraction] 36.7 % Low 37-47 [facility] Comment on above: Performed By: #### L 100.0100, L500.2500, L503.7505 #### [facility] [address] [place], [address] Hemoglobin (Bld) [Mass/Vol] 11.6 g/dL Low 12.0-15.0 [facility] Comment on above: Performed By: #### L 100.0100, L500.2500, L503.7505 #### [facility] [address] [place], [address] IG% 0.600 Normal 0.0-0.9 [facility] Comment on above: Result Comment: IG% - Immature Granulocytes (promyelocytes, myelocytes and metamyelocytes) > 1% indicates that a LEFT SHIFT is Present. Performed By: #### L 100.0100, L500.2500, L503.7505 #### [facility] [address] [place], [address] Lymphocytes/100 WBC (Bld) 14.2 % Low 19-41 [facility] Comment on above: Performed By: #### L 100.0100, L500.2500, L503.7505 #### [facility] [address] [place], [address] MCH (RBC) [Entitic mass] 28.3 pg Normal 27.0-32.0 [facility] Comment on above: Performed By: #### L 100.0100, L500.2500, L503.7505 #### [facility] [address] [place], [address] MCHC (RBC) [Mass/Vol] 31.6 g/dL Low 32-36 [facility] Comment on above: Performed By: #### L 100.0100, L500.2500, L503.7505 #### [facility] [address] [place], [address] MCV (RBC) [Entitic vol] 89.5 fL Normal 81-99 [facility] Comment on above: Performed By: #### L 100.0100, L500.2500, L503.7505 #### [facility] [address] [place], [address] Monocytes/100 WBC (Bld) 11.6 % High 0-10 [facility] Comment on above: Performed By: #### L 100.0100, L500.2500, L503.7505 #### [facility] [address] [place], [address] Neutrophils/100 WBC (Bld) 70.0 % Normal 47-70 [facility] Comment on above: Performed By: #### L 100.0100, L500.2500, L503.7505 #### [facility] [address] [place], [address] Nucleated RBC (Bld) [#/Vol] 0 10*3/uL Normal 0-5 [facility] Comment on above: Performed By: #### L 100.0100, L500.2500, L503.7505 #### [facility] [address] [place], [address] Platelet mean volume (Bld) [Entitic vol] 10.1 fL Normal 6.2-12.0 [facility] Comment on above: Performed By: #### L 100.0100, L500.2500, L503.7505 #### [facility] [address] [place], [address] Platelets (Bld) [#/Vol] 261 10*3/uL Normal 150-450 [facility] Comment on above: Performed By: #### L 100.0100, L500.2500, L503.7505 #### [facility] [address] [place], [address] RBC (Bld) [#/Vol] 4.10 10*6/uL Low 4.2-5.4 [facility] Comment on above: Performed By: #### L 100.0100, L500.2500, L503.7505 #### [facility] [address] [place], [address] RDW SD 46.7 fl High 35.1-43.9 [facility] Comment on above: Performed By: #### L 100.0100, L500.2500, L503.7505 #### [facility] [address] [place], [address] WBC (Bld) [#/Vol] 6.9 10*3/uL Normal 4.4-11.0 [facility] Comment on above: Performed By: #### L 100.0100, L500.2500, L503.7505 #### [facility] [address] [place], [address] [facility] CNPN Telephone (PTWS) AMBER KOROMA ([id number]) 1940 F Date Time Provider Department 02/19/25 PRERNA BONDS PTWS During your visit today, we recorded the following information about you: Danna Hernandez 02/19/2025 9:20 AM Signed [facility] [facility] [facility] stating they received an order for PT from [facility] Bond[facility].However, he states the order needs to be for Occupational Therapy to be able to go through them. Their fax number is [phone]. Please review and advise. Danna Hernandez February [...] Endometrial cancer [C54.1] 03/19/2011 Cyst in hand [[id number]] 08/02/2011 Personal history of malignant neoplasm of [...] to excess calories *07/06/2023 Encounter Status:Closed by MORRIS LO on 02/19/25 Normal [facility] Carbon dioxide, total [Moles /volume] in Central venous bloodOrdered By: Danial Cook on 02-19-2025 CO2 [Moles/Vol] 28.2 mmol/L 21.0-32.0 [facility] Chloride assayOrdered By: Elizabet Cook on 02-19-2025 Chloride [Moles/Vol] 100 mmol/L 98-108 [facility] Eosinophil percentageOrdered By: Danial Cook on 02-19-2025 Eosinophils/100 WBC (Bld) 2.6 % 0-5 [facility] Erythrocyte distribution wid th ratioOrdered By: Danial Cook on 02-19-2025 Erythrocyte distribution width (RBC) [Ratio] 14.2 % 11.6-14.6 [facility] Erythrocyte distribution wid th standard deviationOrdered By: Danial Cook on 02-19-2025 Erythrocyte distribution width (RBC) [Ratio] 46.7 fl High 35.1-43.9 [facility] Glomerular filtration rate ( GFR) estimation/1.73 sq m using serum, plasma, or whole bOrdered By: Danial Cook on 02-19-2025 GFR/1.73 sq M.predicted among non-blacks MDRD (S/P/Bld) [Vol rate/Area] 26 mL/min/{1.73_m2} Low >60 [facility] Comment on above: mL/min/1.73m2 CKD-EP I Creatinine Equation (2020) Hematocrit Auto (Bld) [Volum e fraction]Ordered By: Danial Cook on 02-19-2025 Hematocrit (Bld) [Volume fraction] 36.7 % Low 37-47 [facility] Hemoglobin measurementOrdere d By: Danial Cook on 02-19-2025 Hemoglobin (Bld) [Mass/Vol] 11.6 g/dL Low 12.0-15.0 [facility] Immature granulocytes/100 WB C Auto (Bld)Ordered By: Danial Cook on 02-19-2025 Immature granulocytes/100 WBC (Bld) 0.600 % 0.0-0.9 [facility] Comment on above: IG% - Immature Granu locytes (promyelocytes, myelocytes and metamyelocytes) > 1% indicates that a LEFT SHIFT is Present. L503.7505on 02-19-2025 Natriuretic peptide B (Bld) [Mass/Vol] 719 pg/mL Normal <=1800 [facility] Comment on above: Result Comment: Hear t Failure Unlikely: < 300 pg/mL Heart Failure Likely < 50 Years: > 450 pg/mL 50-75 Years: > 900 pg/mL >75 Years: > 1800 pg/mL Performed By: #### L 100.0100, L500.2500, L503.7505 #### [facility] [address] [place], [place], [address] MCV (mean corpuscular volume ) determinationOrdered By: Danial Cook on 02-19-2025 MCV (RBC) [Entitic vol] 89.5 fL 81-99 [facility] Mean corpuscular hemoglobin (MCH) determinationOrdered By: Danial Cook on 02-19-2025 MCH (RBC) [Entitic mass] 28.3 pg 27.0-32.0 [facility] Mean corpuscular hemoglobin concentration (MCHC) determinationOrdered By: Danial Cook on 02-19-2025 MCHC (RBC) [Mass/Vol] 31.6 g/dL Low 32-36 [facility] Mean platelet volume determi nationOrdered By: Danial Cook on 02-19-2025 Platelet mean volume (Bld) [Entitic vol] 10.1 fL 6.2-12.0 [facility] Monocyte percentageOrdered B y: Danial Cook on 02-19-2025 Monocytes/100 WBC (Bld) 11.6 % High 0-10 [facility] Natriuretic peptide.B prohor nathan N-Terminal [Mass/volume] in Serum or PlasmaOrdered By: Danial Cook on 02-19-2025 Natriuretic peptide.B prohormone N-Terminal [Mass/Vol] 719 pg/mL <1800 [facility] Comment on above: Heart Failure Unlike ly: < 300 pg/mLHeart Failure Likely< 50 Years: > 450 pg/mL50-75 Years: > 900 pg/mL>75 Years: > 1800 pg/mL Neutrophil percentageOrdered By: Danila Cook on 02-19-2025 Neutrophils/100 WBC (Bld) 70.0 % 47-70 [facility] Nucleated red blood cell per centageOrdered By: Danial Cook on 02-19-2025 Nucleated RBC/100 WBC (Bld) [Ratio] 0 % 0-5 [facility] Platelet countOrdered By: Elizabet Cook on 02-19-2025 Platelets (Bld) [#/Vol] 261 10*3/uL 150-450 [facility] Potassium measurement (mass/ volume)Ordered By: Danial Cook on 02-19-2025 Potassium (Unsp spec) [Mass/Vol] 3.7 mmol/L 3.3-5.1 [facility] RBC Auto (Bld) [#/Vol]Ordere d By: Danial Cook on 02-19-2025 RBC (Bld) [#/Vol] 4.10 10*6/uL Low 4.2-5.4 [facility] Serum creatinine measurement (mass/volume)Ordered By: Danial Cook on 02-19-2025 Creatinine [Mass/Vol] 1.84 mg/dL High 0.70-1.20 [facility] Serum glucose measurement (m ass/volume)Ordered By: Danial Cook on 02-19-2025 Glucose [Mass/Vol] 81 mg/dL 70-99 [facility] Serum or plasma calcium lakeisha urement (mass/volume)Ordered By: Danial Cook on 02-19-2025 Calcium [Mass/Vol] 9.3 mg/dL 7.6-11.0 [facility] Serum or plasma urea nitroge n measurement (mass/volume)Ordered By: Danial Cook on 02-19-2025 Urea nitrogen [Mass/Vol] 34 mg/dL High 4-19 [facility] Sodium levelOrdered By: Refugio ramirez Joey on 02-19-2025 Sodium [Moles/Vol] 139 mmol/L 133-145 [facility] White blood cell (WBC) count Ordered By: Danial Cook on 02-19-2025 WBC (Bld) [#/Vol] 6.9 10*3/uL 4.4-11.0 [facility] CNCOon 12-04-2024 CNCO Letter Text Normal [facility] CNPNon 11-24-2024 CNPN Telephone (PODIWS) AMBER KOROMA ([id number]) 1940 F Date Time Provider Department 11/24/24 [...] for leg and feet swelling and seeing prerna lemon on Saturday for Lymphedema therapy. Charla [...] Endometrial cancer [C54.1] 03/19/2011 Cyst in hand [[id number]] 08/02/2011 Personal history of malignant neoplasm of [...] Encounter Status:Closed by CHARLA BENITEZ on 11/24/24 Normal [facility] CNTHERAPYon 11-20-2024 CNTHERAPY OT/PT/Speech Visit ( PTWS) AMBER KOROMA ([id number]) 1940 F Date Time Provider Department 11/20/24 2:45 PM PRERNA BONDS PTWS Date Time Provider Department Center 11/20/2024 2:45 PM [id number] BONDS PTWS [place] Reason for Visit: Physical Therapy [503] [...] 1,000 Units by mouth once daily. Normal [facility] Culture, Blood (WB)on 2024 CUB Blood cultures x2, f rom two different sites No growth in 5 days. Normal [facility] Comment on above: Performed By: #### L 100.0100, L500.2500, L503.7505 #### [facility] [address] [place], [address] [id number] 11-13-2024 [id number] HNO ID: [id number] Author: PRERNA BONDS PT Service: ? Author Type: Physical Therapist Type: [id number] Filed: 11/13/2024 16:42 Note Text: [facility] Physical Therapy Plan of Care Certification Patient Name: Amber Koroma : 1940 [facility] #: [id number] Date: 11/13/2024 To: Tyler Benitez MD From Therapist: Prerna Bonds PT RE: Patient Certification/ Recertification Your review, approval and electronic signature are required in order to comply with Payor: [employer] MEDICARE / Plan: [employer] MED[employer]ARE PPO / Product Type: PPO / regulations. The identified Physical Therapy PLAN OF CARE for the patient is as follows: I89.0 Lymphedema of both lower extremities (primary encounter diagnosis) PLAN OF CARE UPDATE: Assessment: Amber Koroma demonstrates difficulty with increased edema and [...] Patient to be seen for Therapeutic exercise (31173), Manual therapy (88284), Self-halfway management (73487), Patient/Family/Caregiver Education PLAN FOR NEXT VISIT: Continue exercise, MLD, and compression to improve skin/soft tissue condition and promote healing. Facilitate pt obtaining appropriate compression for pt management and for prevention of further cellulitis/infection. For further details regarding this patient refer to the Physical Therapy electronically documented visit dated 11/13/2024. Provider Attestation I have reviewed the treatment plan for Amber Koroma, [facility]# [id number] for the period of 11/13/24 -- 01/13/25, established on 11/13/2024. Signature certifies the need for therapy services. Normal [facility] CNTHERAPYon 11-13-2024 CNTHERAPY OT/PT/Speech Visit ( PTWS) AMBER KOROMA ([id number]) 1940 F Date Time Provider Department 11/13/24 2:45 PM PRERNA BONDS PTWS Date Time Provider Department Center 11/13/2024 2:45 PM [id number] BONDS PTWS [place] Reason for Visit: Physical Therapy [503] Primary Visit Diagnosis:Lymphedema of both lower extremities [I89.0] Allergies As of Date: 11/13/2024 Noted Allergy Reaction ASPIRIN 09/30/2001 BENTYL (DICYCLOMINE HCL) 03/29/2011 4 - Hives MRI DYE (GADOLINIUM-CONTAINING CO*03/30/2023 12 - Shortness of Breath TAPE (ADHESIVE TAPE-SILICONES) 03/09/2019 2 - Rash Comments: rash Date Reviewed: 01/03/2024 Reviewed by: Tammy dAam RN - Fully Assessed Prescriptions as of 11/13/2024 [...] by mouth once daily. Letter Text Normal [facility] Absolute lymphocyte countOrd ered By: Brad Avalos on 11-10-2024 Lymphocytes Auto (Unsp spec) [#/Vol] 0.94 10*3/uL 0.83-4.51 [facility] Absolute neutrophil countOrd ered By: Brad Avalos on 11-10-2024 Neutrophils (Bld) [#/Vol] 5.0 10*3/uL 2.0-7.7 [facility] Anion gap in Serum or Plasma Ordered By: Brad Avalos on 11-10-2024 Anion gap [Moles/Vol] 9 mmol/L 5-15 [facility] Automated lymphocyte count a s percentage of total leukocytesOrdered By: Brad Avalos on 11-10-2024 Lymphocytes/100 WBC Auto (Unsp spec) 14.0 % Low 19-41 [facility] BUN/creatinine ratioOrdered By: Brad Avalos on 11-10-2024 Urea nitrogen/Creatinine [Mass ratio] 18.0 mg/mg 10-20 [facility] Basic Metabolic Profile (BMP )on 11-10-2024 BUN/CRE 18.0 RATIO Normal 10-20 [facility] Comment on above: Performed By: #### L 500.2500, L100.0100 #### [facility] [address] [place], [address] Calcium [Mass/Vol] 9.3 mg/dL Normal 7.6-11.0 [facility] Comment on above: Performed By: #### L 500.2500, L100.0100 #### [facility] [address] [place], [address] Chloride [Moles/Vol] 106 mmol/L Normal 98-108 [facility] Comment on above: Performed By: #### L 500.2500, L100.0100 #### [facility] [address] [place], [address] CO2 [Moles/Vol] 23.8 mmol/L Normal 21.0-32.0 [facility] Comment on above: Performed By: #### L 500.2500, L100.0100 #### [facility] [address] [place], [address] Creatinine [Mass/Vol] 0.96 mg/dL Normal 0.70-1.20 [facility] Comment on above: Performed By: #### L 500.2500, L100.0100 #### [facility] [address] [place], [address] ECRCL 40.63 ml/min Low 50-250 [facility] Comment on above: Performed By: #### L 500.2500, L100.0100 #### [facility] [address] [place], [address] GAP 9 Normal 5-15 [facility] Comment on above: Performed By: #### L 500.2500, L100.0100 #### [facility] [address] [place], [address] GFR/1.73 sq M.predicted among non-blacks MDRD (S/P/Bld) [Vol rate/Area] 58 mL/min/{1.73_m2} Low >60 [facility] Comment on above: Result Comment: mL/m in/1.73m2 CKD-EPI Creatinine Equation (2020) Performed By: #### L 500.2500, L100.0100 #### [facility] [address] [place], [address] Glucose [Mass/Vol] 85 mg/dL Normal 70-99 [facility] Comment on above: Performed By: #### L 500.2500, L100.0100 #### [facility] [address] [place], [address] Potassium [Moles/Vol] 4.3 mmol/L Normal 3.3-5.1 [facility] Comment on above: Performed By: #### L 500.2500, L100.0100 #### [facility] [address] [place], [address] Sodium [Moles/Vol] 138 mmol/L Normal 133-145 [facility] Comment on above: Performed By: #### L 500.2500, L100.0100 #### [facility] [address] [place], [address] Urea nitrogen [Mass/Vol] 17 mg/dL Normal 4-19 [facility] Comment on above: Performed By: #### L 500.2500, L100.0100 #### [facility] [address] [place], [address] Basophil percentageOrdered B y: Brad Avalos on 11-10-2024 Basophils/100 WBC (Bld) 0.4 % 0-1 [facility] Blood cultureOrdered By: Speedy Avalos on 11-10-2024 Bacteria identified Cx Nom (Bld) No growth in 5 days. [facility] Bacteria identified Cx Nom (Bld) No growth in 5 days. [facility] CBC W/Diff, Automatedon - Absolute Lymph 0.94 X10 3/uL Normal 0.83-4.51 [facility] Comment on above: Performed By: #### L 500.2500, L100.0100 #### [facility] [address] [place], [address] Absolute Neut 5.0 X10 3/uL Normal 2.0-7.7 [facility] Comment on above: Performed By: #### L 500.2500, L100.0100 #### [facility] [address] [place], [address] Basophils/100 WBC (Bld) 0.4 % Normal 0-1 [facility] Comment on above: Performed By: #### L 500.2500, L100.0100 #### [facility] [address] [place], [address] Eosinophils/100 WBC (Bld) 1.5 % Normal 0-5 [facility] Comment on above: Performed By: #### L 500.2500, L100.0100 #### [facility] [address] [place], [address] Erythrocyte distribution width (RBC) [Ratio] 14.3 % Normal 11.6-14.6 [facility] Comment on above: Performed By: #### L 500.2500, L100.0100 #### [facility] [address] [place], [address] Hematocrit (Bld) [Volume fraction] 39.6 % Normal 37-47 [facility] Comment on above: Performed By: #### L 500.2500, L100.0100 #### [facility] [address] [place], [address] Hemoglobin (Bld) [Mass/Vol] 12.6 g/dL Normal 12.0-15.0 [facility] Comment on above: Performed By: #### L 500.2500, L100.0100 #### [facility] [address] [place], [address] IG% 0.300 Normal 0.0-0.9 [facility] Comment on above: Result Comment: IG% - Immature Granulocytes (promyelocytes, myelocytes and metamyelocytes) > 1% indicates that a LEFT SHIFT is Present. Performed By: #### L 500.2500, L100.0100 #### [facility] [address] [place], [address] Lymphocytes/100 WBC (Bld) 14.0 % Low 19-41 [facility] Comment on above: Performed By: #### L 500.2500, L100.0100 #### [facility] [address] [place], [address] MCH (RBC) [Entitic mass] 27.8 pg Normal 27.0-32.0 [facility] Comment on above: Performed By: #### L 500.2500, L100.0100 #### [facility] [address] [place], [address] MCHC (RBC) [Mass/Vol] 31.8 g/dL Low 32-36 [facility] Comment on above: Performed By: #### L 500.2500, L100.0100 #### [facility] [address] [place], [address] MCV (RBC) [Entitic vol] 87.4 fL Normal 81-99 [facility] Comment on above: Performed By: #### L 500.2500, L100.0100 #### [facility] [address] [place], [address] Monocytes/100 WBC (Bld) 9.8 % Normal 0-10 [facility] Comment on above: Performed By: #### L 500.2500, L100.0100 #### [facility] [address] [place], [address] Neutrophils/100 WBC (Bld) 74.0 % High 47-70 [facility] Comment on above: Performed By: #### L 500.2500, L100.0100 #### [facility] [address] [place], [address] Nucleated RBC (Bld) [#/Vol] 0 10*3/uL Normal 0-5 [facility] Comment on above: Performed By: #### L 500.2500, L100.0100 #### [facility] [address] [place], [address] Platelet mean volume (Bld) [Entitic vol] 10.0 fL Normal 6.2-12.0 [facility] Comment on above: Performed By: #### L 500.2500, L100.0100 #### [facility] [address] [place], [address] Platelets (Bld) [#/Vol] 192 10*3/uL Normal 150-450 [facility] Comment on above: Performed By: #### L 500.2500, L100.0100 #### [facility] [address] [place], [address] RBC (Bld) [#/Vol] 4.53 10*6/uL Normal 4.2-5.4 [facility] Comment on above: Performed By: #### L 500.2500, L100.0100 #### [facility] [address] [place], [address] RDW SD 45.3 fl High 35.1-43.9 [facility] Comment on above: Performed By: #### L 500.2500, L100.0100 #### [facility] [address] [place], [address] WBC (Bld) [#/Vol] 6.7 10*3/uL Normal 4.4-11.0 [facility] Comment on above: Performed By: #### L 500.2500, L100.0100 #### [facility] [address] [place], [address] Carbon dioxide, total [Moles /volume] in Central venous bloodOrdered By: Brad Avalos on 11-10-2024 CO2 [Moles/Vol] 23.8 mmol/L 21.0-32.0 [facility] Chloride assayOrdered By: Gumaro Avalos on 11-10-2024 Chloride [Moles/Vol] 106 mmol/L 98-108 [facility] Emergency Department Summary on 11-10-2024 Emergency Department Summary [facility] Medical Records Department [address] [place] [address] Emergency Department Summary 11/10/24 MR#: [id number] Acct: [id number] Name: AMBER KOROMA Rep #: [id number] : 1940 84 From: Brad Avalos DO PCP: Dr. Tyler Benitez MD Status:DEP ER Location: ED HPI [...] heavy and she has difficulty moving around. 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 Normal [facility] Eosinophil percentageOrdered By: Brad Avalos on 11-10-2024 Eosinophils/100 WBC (Bld) 1.5 % 0-5 [facility] Erythrocyte distribution wid th ratioOrdered By: Brad Avalos on 11-10-2024 Erythrocyte distribution width (RBC) [Ratio] 14.3 % 11.6-14.6 [facility] Erythrocyte distribution wid th standard deviationOrdered By: Brad Avalos on 11-10-2024 Erythrocyte distribution width (RBC) [Entitic vol] 45.3 fL High 35.1-43.9 [facility] Erythrocyte distribution width (RBC) [Ratio] 45.3 fl High 35.1-43.9 [facility] Estimation of creatinine yovanny aranceOrdered By: Brad Avalos on 11-10-2024 Estimated Creatinine Clearance Calc 40.63 ml/min Low 50-250 [facility] GFR/1.73 sq M.predicted zane g non-blacks MDRD (S/P/Bld) [Vol rate/Area]Ordered By: Brad Avalos on 11-10-2024 Estimated GFR (MDRD) Non-Af Amer 58 Low >60 [facility] Comment on above: mL/min/1.73m2 CKD-EP I Creatinine Equation (2020) Glomerular filtration rate ( GFR) estimation/1.73 sq m using serum, plasma, or whole bOrdered By: Brad Avalos on 11-10-2024 GFR/1.73 sq M.predicted among non-blacks MDRD (S/P/Bld) [Vol rate/Area] 58 mL/min/{1.73_m2} Low >60 [facility] Comment on above: mL/min/1.73m2 CKD-EP I Creatinine Equation (2020) Hematocrit Auto (Bld) [Volum e fraction]Ordered By: Brad Avalos on 11-10-2024 Hematocrit (Bld) [Volume fraction] 39.6 % 37-47 [facility] Hemoglobin measurementOrdere d By: Brad Avalos on 11-10-2024 Hemoglobin (Bld) [Mass/Vol] 12.6 g/dL 12.0-15.0 [facility] Immature granulocytes/100 WB C Auto (Bld)Ordered By: Brad Avalos on 11-10-2024 Immature granulocytes/100 WBC (Bld) 0.300 % 0.0-0.9 [facility] Comment on above: IG% - Immature Granu locytes (promyelocytes, myelocytes and metamyelocytes) > 1% indicates that a LEFT SHIFT is Present. Lymphocytes Auto (Unsp spec) [#/Vol]Ordered By: Brad Avalos on 11-10-2024 Lymphocytes (Bld) [#/Vol] 0.94 10*3/uL 0.83-4.51 [facility] Lymphocytes/100 WBC Auto (Un sp spec)Ordered By: Brad Avalos on 11-10-2024 Lymphocytes/100 WBC (Bld) 14.0 % Low 19-41 [facility] MCV (mean corpuscular volume ) determinationOrdered By: Brad Avalos on 11-10-2024 MCV (RBC) [Entitic vol] 87.4 fL 81-99 [facility] Mean corpuscular hemoglobin (MCH) determinationOrdered By: Brad Avalos on 11-10-2024 MCH (RBC) [Entitic mass] 27.8 pg 27.0-32.0 [facility] Mean corpuscular hemoglobin concentration (MCHC) determinationOrdered By: Brad Avalos on 11-10-2024 MCHC (RBC) [Mass/Vol] 31.8 g/dL Low 32-36 [facility] Mean platelet volume determi nationOrdered By: Brad Avalos on 11-10-2024 Platelet mean volume (Bld) [Entitic vol] 10.0 fL 6.2-12.0 [facility] Monocyte percentageOrdered B y: Brad Avalos on 11-10-2024 Monocytes/100 WBC (Bld) 9.8 % 0-10 [facility] Neutrophil percentageOrdered By: Brad Avalos on 11-10-2024 Neutrophils/100 WBC (Bld) 74.0 % High 47-70 [facility] Nucleated red blood cell per centageOrdered By: Brad Avalos on 11-10-2024 Nucleated RBC/100 WBC (Bld) [Ratio] 0 % 0-5 [facility] Platelet countOrdered By: Gumaro Avalos on 11-10-2024 Platelets (Bld) [#/Vol] 192 10*3/uL 150-450 [facility] Potassium (Unsp spec) [Mass/ Vol]Ordered By: Brad Avalos on 11-10-2024 Potassium [Moles/Vol] 4.3 mmol/L 3.3-5.1 [facility] Potassium measurement (mass/ volume)Ordered By: Brad Avalos on 11-10-2024 Potassium (Unsp spec) [Mass/Vol] 4.3 mmol/L 3.3-5.1 [facility] RBC Auto (Bld) [#/Vol]Ordere d By: Brad Avalos on 11-10-2024 RBC (Bld) [#/Vol] 4.53 10*6/uL 4.2-5.4 [facility] Serum creatinine measurement (mass/volume)Ordered By: Brad Avalos on 11-10-2024 Creatinine [Mass/Vol] 0.96 mg/dL 0.70-1.20 [facility] Serum glucose measurement (m ass/volume)Ordered By: Brad Avalos on 11-10-2024 Glucose [Mass/Vol] 85 mg/dL 70-99 [facility] Serum or plasma calcium lakeisha urement (mass/volume)Ordered By: Brad Avalos on 11-10-2024 Calcium [Mass/Vol] 9.3 mg/dL 7.6-11.0 [facility] Serum or plasma urea nitroge n measurement (mass/volume)Ordered By: Brad Avalos on 11-10-2024 Urea nitrogen [Mass/Vol] 17 mg/dL 4-19 [facility] Sodium levelOrdered By: Ray Avalos on 11-10-2024 Sodium [Moles/Vol] 138 mmol/L 133-145 [facility] White blood cell (WBC) count Ordered By: Brad Avalos on 11-10-2024 WBC (Bld) [#/Vol] 6.7 10*3/uL 4.4-11.0 [facility] CNPNon 11-09-2024 CNPN Telephone (PTWS) AMBER KOROMA ([id number]) 1940 F Date Time Provider Department 11/09/24 PRERNA BONDS PTWS During your visit today, we recorded the following information about you: Teresita Rawls 11/09/2024 4:48 PM Signed Patient contacted office to request physical therapist to call her back [place]. Patient reports "leaking fluid out of foot". Patient became agitated that she was not transferred to directly speak with therapist. Patient states ER will not help her. Please contact patient to advise on plan of care. Allergies As of Date: 11/09/2024 Noted Allergy Reaction ASPIRIN 09/30/2001 BENTYL (DICYCLOMINE HCL) 03/29/2011 4 - Hives MRI DYE (GADOLINIUM-CONTAINING CO*03/30/2023 12 - Shortness of Breath TAPE (ADHESIVE TAPE-SILICONES) 03/09/2019 2 - Rash Comments: rash Date Reviewed: 01/03/2024 Reviewed by: Tammy Adam RN - Fully Assessed Reason for Visit: Patient Update [1234] Cmt: Wound Seepage Prescriptions as of 03/17/2025 - furosemide (LASIX) 40 mg tablet Take [...] Endometrial cancer [C54.1] 03/19/2011 Cyst in hand [[id number]] 08/02/2011 Personal history of malignant neoplasm of [...] to excess calories *07/06/2023 Encounter Status:Closed by TERESITA RAWLS [facility] AM[facility] KOR[facility] ([id number]) 1940 F Date Time Provider Department 11/09/24 PRERNA BONDS PTWS During your visit today, we [...] Fully Assessed Reason for Visit: Patient Question [5477] Cmt: (cont) Pt was then advised to [...] Endometrial cancer [C54.1] 03/19/2011 Cyst in hand [[id number]] 08/02/2011 Personal history of malignant neoplasm of [...] to excess calories *07/06/2023 Encounter Status:Closed by PRERNA BONDS on 11/09/24 Normal [facility] CNPN Telephone (PTWS) AMBER KOROMA ([id number]) 1940 F Date Time Provider Department 11/09/24 PRERNA BONDS PTWS During your visit today, we [...] She stated she removed her compression bandage and,"It doesn't look very good", and is red. Therapist instructed pt to go to ER d/t high possibility of infection. Pt stated she was told the last time she was there that, "she may as well not come back because they don't know how to treat that anyway" (the lymphedema). (cont.) Prescriptions as of 11/09/2024 [...] Endometrial cancer [C54.1] 03/19/2011 Cyst in hand [[id number]] 08/02/2011 Personal history of malignant neoplasm of [...] to excess calories *07/06/2023 Encounter Status:Closed by PR[facility]NA [facility]ON[facility] on 11[facility]09/24 [facility] ([id number]) 1940 F Date Time Provider Department 11/09/24 PRERNA BONDS PTWS During your visit today, we [...] Fully Assessed Reason for Visit: Patient Question [0037] Cmt: Therapist spoke with nurse in [facility] [facility] who consulted physician on staff and advised [...] Endometrial cancer [C54.1] 03/19/2011 Cyst in hand [[id number]] 08/02/2011 Personal history of malignant neoplasm of [...] to excess calories *07/06/2023 Encounter Status:Closed by PRERNA BONDS on 11/09/24 Normal [facility] CNTHERAPYon 10-30-2024 CNTHERAPY OT/PT/Speech Visit ( PTWS) AMBER KOROMA ([id number]) 1940 F Date Time Provider Department 10/30/24 2:45 PM ISAHUSSAINPRERNA PTWS Date Time Provider Department Center 10/30/2024 2:45 PM [id number] BONDS PTWS [place] Reason for Visit: Physical Therapy [503] [...] 1,000 Units by mouth once daily. Normal [facility] CNTHERAPYon 09-25-2024 CNTHERAPY OT/PT/Speech Visit ( PTWS) AMBER KOROMA ([id number]) 1940 F Date Time Provider Department 09/25/24 2:45 PM PRERNA BONDS PTWS Date Time Provider Department Center 09/25/2024 2:45 PM [id number] BONDS PTWS [place] Reason for Visit: Physical Therapy [503] [...] 1,000 Units by mouth once daily. Normal [facility] [id number] 09-04-2024 [id number] HNO ID: [id number] Author: PRERNA BONDS PT Service: ? Author Type: Physical Therapist Type: [id number] Filed: 09/04/2024 16:39 Note Text: [facility] Physical Therapy Plan of Care Certification Patient Name: Amber Koroma : 1940 CC #: [id number] Date: 09/04/2024 To: Chhaya Stacy MD From Therapist: Prerna Bonds PT RE: Patient Certification/ Recertification Your review, approval and electronic signature are required in order to comply with Payor: [employer] MEDICARE / Plan: [employer] MEDICARE PPO / Product Type: PPO / regulations. The identified Physical Therapy PLAN OF CARE for the patient is as follows: I89.0 Lymphedema of both lower extremities (primary encounter diagnosis) PLAN OF CARE UPDATE: Assessment: Amber Koroma demonstrates difficulty with skin care, soft [...] Patient to be seen for Therapeutic exercise (12358), Manual therapy (09588), Self-halfway management (25699), Patient/Family/Caregiver Education PLAN FOR NEXT VISIT: Resume [...] I have reviewed the treatment plan for Amber Koroma, [facility]# [id number] for the period of 09/17/24 -- 11/02/24, established on 09/04/2024. Signature certifies the need for therapy services. Normal [facility] CNTHERAPYon 09-04-2024 CNTHERAPY OT/PT/Speech Visit ( PTWS) AMBER KOROMA ([id number]) 1940 F Date Time Provider Department 09/04/24 2:45 PM PRERNA BONDS PTWS Date Time Provider Department Center 09/04/2024 2:45 PM [id number] OBNDS PTWS [place] Reason for Visit: PT Progress Note [...] RN - Fully Assessed Prescriptions as of 09/04/2024 [...] by mouth once daily. Letter Text Normal [facility] Orthopedic Visit Reporton Orthopedic Visit Report [facility] [address] [place] [address] OFFICE VISIT Date of Service: 08/27/24 MR#: [id number] Acct: [id number] Name: AMBER KOROMA Rep #: [id number] : 1940 Provider: Dr. 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 Alphonso Newell MD 08/27/24 6271. Part of today???s visit was documented by [ ], acting as scribe. AMBER KOROMA is a 84 year old F [...] Performing Provider: Alphonso Newell MD Performing Location: [facility] Administered by: Alphonso (more content not included)... Normal [facility] Orthopedic Visit Reporton Orthopedic Visit Report [facility] [address] [place] [address] [place] [address] OFFICE VISIT Date of Service: 08/21/24 MR#: [id number] Acct: [id number] Name: AMBER KOROMA Rep #: [id number] : 1940 Provider: Dr. Alphonso rock MD Age/Sex: 84/F Location: [facility] Status: Signed with Addenda ADDENDUM by Angelita [...] Performing Provider: Alphonso Newell MD Performing Location: [facility] Administered by: Alphonso Newell MD on 08/21/24 14:51 Dose Route Admin Location Dispensed Lot Number Expiration Date [facility] Man ufacturer 20 mg intra-articular right knee 2 mL [id number] 07/20/25 [address]-0 [employer] [employer] Date cc: * Signed Intake [...] 20 meq PO DAILY supplement #30 tabs 09/03/21 12/27/24 History tablet,extended release(part/cryst) acetaminophen 500 mg tablet [...] Abdominal pain COVID-19 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 Normal [facility] BNP,B-Type NATRIURETIC PEPTI Marifer 08-12-2024 Natriuretic peptide B (Bld) [Mass/Vol] 182.0 pg/mL High 0-100 [facility] Comment on above: Performed By: #### L 503.6647 ####[facility] [address] [place], [address] Absolute neutrophil countOrd ered By: Tyler Benitez on 08-11-2024 Neutrophils (Bld) [#/Vol] 4.2 10*3/uL 2.0-7.7 [facility] Albumin to globulin ratioOrd ered By: Tyler Benitez on 08-11-2024 Albumin/Globulin [Mass ratio] 0.8 {ratio} Low 0.9-2.4 [facility] BNP (brain natriuretic pepti de measurement)Ordered By: Tyler Benitez on 08-11-2024 Natriuretic peptide B (Bld) [Mass/Vol] 182.0 pg/mL High 0-100 [facility] Basophil percentageOrdered B y: Tyler Benitez on 08-11-2024 Basophils/100 WBC (Bld) 0.6 % 0-1 [facility] Bilirubin, totalOrdered By: Tyler Benitez on 08-11-2024 Bilirubin [Mass/Vol] 0.30 mg/dL 0.20-1.00 [facility] Comment on above: For patients on eltr ombopag therapy, use of Dimension Alden TBIL is not recommended. Blood urea nitrogen (BUN)/cr eatinine ratioOrdered By: Tyler Benitez on 08-11-2024 Urea nitrogen/Creatinine [Mass ratio] 16.0 mg/mg 10-20 [facility] CBC W/Diff, Automatedon 07-26 Absolute Lymph 1.51 X10 3/uL Normal 0.83-4.51 [facility] Comment on above: Order Comment: Order Date: 08/11/24 Order Info: 0184-1 - CBCD Performed By: #### L 500.4050, L100.0100 #### [facility] [address] [place], [address] Absolute Neut 4.2 X10 3/uL Normal 2.0-7.7 [facility] Comment on above: Order Comment: Order Date: 08/11/24 Order Info: 018- - CBCD Performed By: #### L 500.4050, L100.0100 #### [facility] [address] [place], [address] Basophils/100 WBC (Bld) 0.6 % Normal 0-1 [facility] Comment on above: Order Comment: Order Date: 08/11/24 Order Info: 018-1 - CBCD Performed By: #### L 500.4050, L100.0100 #### [facility] [address] [place], [address] Eosinophils/100 WBC (Bld) 3.2 % Normal 0-5 [facility] Comment on above: Order Comment: Order Date: 08/11/24 Order Info: 018-1 - CBCD Performed By: #### L 500.4050, L100.0100 #### [facility] [address] [place], [address] Erythrocyte distribution width (RBC) [Ratio] 13.7 % Normal 11.6-14.6 [facility] Comment on above: Order Comment: Order Date: 08/11/24 Order Info: 0184-1 - CBCD Performed By: #### L 500.4050, L100.0100 #### [facility] [address] [place], [address] Hematocrit (Bld) [Volume fraction] 39.7 % Normal 37-47 [facility] Comment on above: Order Comment: Order Date: 08/11/24 Order Info: 018- - CBCD Performed By: #### L 500.4050, L100.0100 #### [facility] [address] [place], [address] Hemoglobin (Bld) [Mass/Vol] 12.3 g/dL Normal 12.0-15.0 [facility] Comment on above: Order Comment: Order Date: 08/11/24 Order Info: 018- - CBCD Performed By: #### L 500.4050, L100.0100 #### [facility] [address] [place], [address] IG% 0.000 Normal 0.0-0.9 [facility] Comment on above: Order Comment: Order Date: 08/11/24 Order Info: 018- - CBCD Result Comment: IG% - Immature Granulocytes (promyelocytes, myelocytes and metamyelocytes) > 1% indicates that a LEFT SHIFT is Present. Performed By: #### L 500.4050, L100.0100 #### [facility] [address] [place], [address] Lymphocytes/100 WBC (Bld) 23.2 % Normal 19-41 [facility] Comment on above: Order Comment: Order Date: 08/11/24 Order Info: 018- - CBCD Performed By: #### L 500.4050, L100.0100 #### [facility] [address] [place], [address] MCH (RBC) [Entitic mass] 27.5 pg Normal 27.0-32.0 [facility] Comment on above: Order Comment: Order Date: 08/11/24 Order Info: 0184- - CBCD Performed By: #### L 500.4050, L100.0100 #### [facility] [address] [place], [address] MCHC (RBC) [Mass/Vol] 31.0 g/dL Low 32-36 [facility] Comment on above: Order Comment: Order Date: 08/11/24 Order Info: 0184-1 - CBCD Performed By: #### L 500.4050, L100.0100 #### [facility] [address] [place], [address] MCV (RBC) [Entitic vol] 88.6 fL Normal 81-99 [facility] Comment on above: Order Comment: Order Date: 08/11/24 Order Info: 0184-1 - CBCD Performed By: #### L 500.4050, L100.0100 #### [facility] [address] [place], [address] Monocytes/100 WBC (Bld) 8.6 % Normal 0-10 [facility] Comment on above: Order Comment: Order Date: 08/11/24 Order Info: 0184-1 - CBCD Performed By: #### L 500.4050, L100.0100 #### [facility] [address] [place], [address] Neutrophils/100 WBC (Bld) 64.4 % Normal 47-70 [facility] Comment on above: Order Comment: Order Date: 08/11/24 Order Info: 0184-1 - CBCD Performed By: #### L 500.4050, L100.0100 #### [facility] [address] [place], [address] Nucleated RBC (Bld) [#/Vol] 0 10*3/uL Normal 0-5 [facility] Comment on above: Order Comment: Order Date: 08/11/24 Order Info: 0184-1 - CBCD Performed By: #### L 500.4050, L100.0100 #### [facility] [address] [place], [address] Platelet mean volume (Bld) [Entitic vol] 10.5 fL Normal 6.2-12.0 [facility] Comment on above: Order Comment: Order Date: 08/11/24 Order Info: 0184-1 - CBCD Performed By: #### L 500.4050, L100.0100 #### [facility] [address] [place], [address] Platelets (Bld) [#/Vol] 220 10*3/uL Normal 150-450 [facility] Comment on above: Order Comment: Order Date: 08/11/24 Order Info: 0184-1 - CBCD Performed By: #### L 500.4050, L100.0100 #### [facility] [address] [place], [address] RBC (Bld) [#/Vol] 4.48 10*6/uL Normal 4.2-5.4 [facility] Comment on above: Order Comment: Order Date: 08/11/24 Order Info: 0184-1 - CBCD Performed By: #### L 500.4050, L100.0100 #### [facility] [address] [place], [address] RDW SD 44.5 fl High 35.1-43.9 [facility] Comment on above: Order Comment: Order Date: 08/11/24 Order Info: 0184-1 - CBCD Performed By: #### L 500.4050, L100.0100 #### [facility] [address] [place], [address] WBC (Bld) [#/Vol] 6.5 10*3/uL Normal 4.4-11.0 [facility] Comment on above: Order Comment: Order Date: 08/11/24 Order Info: 0184-1 - CBCD Performed By: #### L 500.4050, L100.0100 #### [facility] [address] [place], [address] Carbon dioxide measurementOr dered By: Tyler Benitez on 08-11-2024 CO2 [Moles/Vol] 27.0 mmol/L 21.0-32.0 [facility] Chloride measurementOrdered By: Tyler Benitez on 08-11-2024 Chloride [Moles/Vol] 108 mmol/L High 98-107 [facility] Comprehensive Metabolic Prof ilon 08-11-2024 Albumin [Mass/Vol] 3.2 g/dL Normal 3.2-5.0 [facility] Comment on above: Order Comment: Order Date: 08/11/24 Order Info: 0786-1 - CMP Performed By: #### L 500.4050, L100.0100 #### [facility] [address] [place], [address] Albumin/Globulin [Mass ratio] 0.8 {ratio} Low 0.9-2.4 [facility] Comment on above: Order Comment: Order Date: 08/11/24 Order Info: 0786-1 - CMP Performed By: #### L 500.4050, L100.0100 #### [facility] [address] [place], [address] ALK P 86 U/L Normal 45-117 [facility] Comment on above: Order Comment: Order Date: 08/11/24 Order Info: 0786-1 - CMP Performed By: #### L 500.4050, L100.0100 #### [facility] [address] [place], [address] ALT [Catalytic activity/Vol] 13 U/L Normal 13-56 [facility] Comment on above: Order Comment: Order Date: 08/11/24 Order Info: 0786-1 - CMP Performed By: #### L 500.4050, L100.0100 #### [facility] [address] [place], [address] AST [Catalytic activity/Vol] 13 U/L Low 15-37 [facility] Comment on above: Order Comment: Order Date: 08/11/24 Order Info: 0786-1 - CMP Performed By: #### L 500.4050, L100.0100 #### [facility] [address] [place], [address] Bilirubin [Mass/Vol] 0.30 mg/dL Normal 0.20-1.00 [facility] Comment on above: Order Comment: Order Date: 08/11/24 Order Info: 0786-1 - CMP Result Comment: For patients on eltrombopag therapy, use of Dimension Alden TBIL is not recommended. Performed By: #### L 500.4050, L100.0100 #### [facility] [address] [place], [address] BUN/CRE 16.0 RATIO Normal 10-20 [facility] Comment on above: Order Comment: Order Date: 08/11/24 Order Info: 0786-1 - CMP Performed By: #### L 500.4050, L100.0100 #### [facility] [address] [place], [address] CA,Total 9.6 mg/dL Normal 8.5-10.1 [facility] Comment on above: Order Comment: Order Date: 08/11/24 Order Info: 0786-1 - CMP Performed By: #### L 500.4050, L100.0100 #### [facility] [address] [place], [address] Chloride [Moles/Vol] 108 mmol/L High 98-107 [facility] Comment on above: Order Comment: Order Date: 08/11/24 Order Info: 0786-1 - CMP Performed By: #### L 500.4050, L100.0100 #### [facility] [address] [place], [address] CO2 [Moles/Vol] 27.0 mmol/L Normal 21.0-32.0 [facility] Comment on above: Order Comment: Order Date: 08/11/24 Order Info: 0786-1 - CMP Performed By: #### L 500.4050, L100.0100 #### [facility] [address] [place], [address] Creatinine [Mass/Vol] 1.00 mg/dL Normal 0.55-1.02 [facility] Comment on above: Order Comment: Order Date: 08/11/24 Order Info: 0786-1 - CMP Result Comment: The validity of the calculated GFR GFRAA in patients over 70 years has not been determined. Clinical correlation is essential. Performed By: #### L 500.4050, L100.0100 #### [facility] [address] [place], [address] EST GFR - AA 68 mL/min Normal >60 [facility] Comment on above: Order Comment: Order Date: 08/11/24 Order Info: 0786-1 - CMP Result Comment: Afri can [place] GFR Calc Performed By: #### L 500.4050, L100.0100 #### [facility] [address] [place], [address] GAP 4 Low 5-15 [facility] Comment on above: Order Comment: Order Date: 08/11/24 Order Info: 0786-1 - CMP Performed By: #### L 500.4050, L100.0100 #### [facility] [address] [place], [address] GFR/1.73 sq M.predicted among non-blacks MDRD (S/P/Bld) [Vol rate/Area] 56 mL/min/{1.73_m2} Low >60 [facility] Comment on above: Order Comment: Order Date: 08/11/24 Order Info: 0786-1 - CMP Result Comment: Non- GFR Calc Performed By: #### L 500.4050, L100.0100 #### [facility] [address] [place], [address] Globulin (S) [Mass/Vol] 4.2 g/dL Normal 2.2-4.2 [facility] Comment on above: Order Comment: Order Date: 08/11/24 Order Info: 0786-1 - CMP Performed By: #### L 500.4050, L100.0100 #### [facility] [address] [place], [address] Glucose [Mass/Vol] 91 mg/dL Normal 74-106 [facility] Comment on above: Order Comment: Order Date: 08/11/24 Order Info: 0786-1 - CMP Performed By: #### L 500.4050, L100.0100 #### [facility] [address] [place], [address] Potassium [Moles/Vol] 3.9 mmol/L Normal 3.5-5.1 [facility] Comment on above: Order Comment: Order Date: 08/11/24 Order Info: 0786-1 - CMP Performed By: #### L 500.4050, L100.0100 #### [facility] [address] [place], [address] Sodium [Moles/Vol] 139 mmol/L Normal 136-145 [facility] Comment on above: Order Comment: Order Date: 08/11/24 Order Info: 0786-1 - CMP Performed By: #### L 500.4050, L100.0100 #### [facility] [address] [place], [address] T PROT 7.4 g/dL Normal 6.4-8.2 [facility] Comment on above: Order Comment: Order Date: 08/11/24 Order Info: 0786-1 - CMP Performed By: #### L 500.4050, L100.0100 #### [facility] [address] [place], [address] Urea nitrogen [Mass/Vol] 16 mg/dL Normal 7-18 [facility] Comment on above: Order Comment: Order Date: 08/11/24 Order Info: 0786-1 - CMP Performed By: #### L 500.4050, L100.0100 #### [facility] [address] [place], [address] Eosinophil percentageOrdered By: Tyler Benitez on 08-11-2024 Eosinophils/100 WBC (Bld) 3.2 % 0-5 [facility] Erythrocyte distribution wid th ratioOrdered By: Tyler Benitez on 08-11-2024 Erythrocyte distribution width (RBC) [Ratio] 13.7 % 11.6-14.6 [facility] Erythrocyte distribution wid th standard deviationOrdered By: Tyler Benitez on 08-11-2024 Erythrocyte distribution width (RBC) [Entitic vol] 44.5 fL High 35.1-43.9 [facility] Estimated glomerular filtrat ion rate (GFR) AmericanOrdered By: Tyler Benitez on 08-11-2024 Estimated GFR (MDRD) Amer 68 mL/min >60 [facility] Comment on above: GFR Calc Glomerular filtration rate ( GFR) estimationOrdered By: Tyler Benitez on 08-11-2024 Estimated GFR (MDRD) Non-Af Amer 56 mL/min Low >60 [facility] Comment on above: Non- GFR Calc Glucose measurementOrdered B y: Tyler Benitez on 08-11-2024 Glucose [Mass/Vol] 91 mg/dL 74-106 [facility] Hematocrit Auto (Bld) [Volum e fraction]Ordered By: Tyler Benitez on 08-11-2024 Hematocrit (Bld) [Volume fraction] 39.7 % 37-47 [facility] Hemoglobin measurementOrdere d By: Tyler Benitez on 08-11-2024 Hemoglobin (Bld) [Mass/Vol] 12.3 g/dL 12.0-15.0 [facility] Immature granulocytes/100 WB C Auto (Bld)Ordered By: Tyler Benitez on 08-11-2024 Immature granulocytes/100 WBC (Bld) 0.000 % 0.0-0.9 [facility] Comment on above: IG% - Immature Granu locytes (promyelocytes, myelocytes and metamyelocytes) > 1% indicates that a LEFT SHIFT is Present. Laboratory - Chemistry and C hemistry - challengeOrdered By: Tyler Benitez on 08-11-2024 AST [Catalytic activity/Vol] 13 U/L Low 15-37 [facility] Lymphocytes Auto (Unsp spec) [#/Vol]Ordered By: Tyler Benitez on 08-11-2024 Lymphocytes (Bld) [#/Vol] 1.51 10*3/uL 0.83-4.51 [facility] Lymphocytes/100 WBC Auto (Un sp spec)Ordered By: Tyler Benitez on 08-11-2024 Lymphocytes/100 WBC (Bld) 23.2 % 19-41 [facility] MCV (mean corpuscular volume ) determinationOrdered By: Tyler Benitez on 08-11-2024 MCV (RBC) [Entitic vol] 88.6 fL 81-99 [facility] Mean corpuscular hemoglobin (MCH) determinationOrdered By: Tyler Benitez on 08-11-2024 MCH (RBC) [Entitic mass] 27.5 pg 27.0-32.0 [facility] Mean corpuscular hemoglobin concentration (MCHC) determinationOrdered By: Tyler Benitez on 08-11-2024 MCHC (RBC) [Mass/Vol] 31.0 g/dL Low 32-36 [facility] Mean platelet volume determi nationOrdered By: Tyler Benitez on 08-11-2024 Platelet mean volume (Bld) [Entitic vol] 10.5 fL 6.2-12.0 [facility] Monocyte percentageOrdered B y: Tyler Benitez on 08-11-2024 Monocytes/100 WBC (Bld) 8.6 % 0-10 [facility] Neutrophil percentageOrdered By: Tyler Benitez on 08-11-2024 Neutrophils/100 WBC (Bld) 64.4 % 47-70 [facility] Nucleated red blood cell per centageOrdered By: Tyler Benitez on 08-11-2024 Nucleated RBC/100 WBC (Bld) [Ratio] 0 % 0-5 [facility] Orthopedic Visit Reporton Orthopedic Visit Report [facility] [address] [place] [address] OFFICE VISIT Date of Service: 08/11/24 MR#: [id number] Acct: [id number] Name: AMBER KOROMA Rep #: [id number] : 1940 Provider: Dr. Alphonso rock MD Age/Sex: 84/F Location: [facility] Status: Signed with Addenda ADDENDUM by Angelita [...] Performing Provider: Alphonso Newell MD Performing Location: [facility] Administered by: Alphonso Newell MD on 08/11/24 16:10 Dose Route Admin Location Dispensed Lot Number Expiration Date [facility] Man ufacturer 20 mg intra-articular right knee 2 mL [id number] 07/20/25 [address]-0 [facility] Date cc: * Signed Intake Vital Signs 08/06/24 10:10 Height 4 ft 11 in Intake Visit Reasons: RIGHT KNEE Chief Complaint: Cough Allergies adhesive Allergy (Verified 07/14/24 13:19) Hives dicyclomine HCl (From Bentyl) Allergy (Verified 07/14/24 13:19) Hives aspirin Adverse Reaction (Verified 07/14/24 13:19) Low platelets Have you fallen in the past year?: No (?) [facility] Medical History Osteoarthritis of right knee Abdominal pain COVID-19 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 AMBER KOROMA is a 84 year old F here today for R knee OA euflexxa injection 08/28. 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 FU 1 week. Right knee intra-articular Euflexxa injection We discussed the pros and cons risks and benefits of going ahead with right knee intra-articular Euflexxa injection. The risks include but are not limited to infection, pain, acute flare reaction, stiffness, bleeding, damage t (more content not included)... Normal [facility] Platelet countOrdered By: Silvio Benitez on 08-11-2024 Platelets (Bld) [#/Vol] 220 10*3/uL 150-450 [facility] Potassium measurementOrdered By: Tyler Benitez on 08-11-2024 Potassium [Moles/Vol] 3.9 mmol/L 3.5-5.1 [facility] RBC Auto (Bld) [#/Vol]Ordere d By: Tyler Benitez on 08-11-2024 RBC (Bld) [#/Vol] 4.48 10*6/uL 4.2-5.4 [facility] Serum anion gap measurementO rdered By: Tyler Benitez on 08-11-2024 Anion gap [Moles/Vol] 4 mmol/L Low 5-15 [facility] Serum globulin measurementOr dered By: Tyler Benitez on 08-11-2024 Globulin (S) [Mass/Vol] 4.2 g/dL 2.2-4.2 [facility] Serum or plasma alanine welch otransferase (ALT) measurementOrdered By: Tyler Benitez on 08-11-2024 ALT [Catalytic activity/Vol] 13 U/L 13-56 [facility] Serum or plasma albumin lakeisha urement (mass/volume)Ordered By: Tyler Benitez on 08-11-2024 Albumin [Mass/Vol] 3.2 g/dL 3.2-5.0 [facility] Serum or plasma alkaline vania sphatase measurementOrdered By: Tyler Benitez on 08-11-2024 ALP [Catalytic activity/Vol] 86 U/L 45-117 [facility] Serum or plasma calcium lakeisah urement (mass/volume)Ordered By: Tyler Benitez on 08-11-2024 Calcium [Mass/Vol] 9.6 mg/dL 8.5-10.1 [facility] Serum or plasma creatinine m easurement (mass/volume)Ordered By: Tyler Benitez on 08-11-2024 Creatinine [Mass/Vol] 1.00 mg/dL 0.55-1.02 [facility] Comment on above: The validity of the calculated GFR & GFRAA in patients over 70 years has not been determined. Clinical correlation is essential. Serum or plasma urea nitroge n measurement (mass/volume)Ordered By: Tyler Benitez on 08-11-2024 Urea nitrogen [Mass/Vol] 16 mg/dL 7-18 [facility] Sodium levelOrdered By: Tyler Benitez on 08-11-2024 Sodium [Moles/Vol] 139 mmol/L 136-145 [facility] Total proteinOrdered By: Reyna Benitez on 08-11-2024 Protein [Mass/Vol] 7.4 g/dL 6.4-8.2 [facility] White blood cell (WBC) count Ordered By: Tyler Benitez on 08-11-2024 WBC (Bld) [#/Vol] 6.5 10*3/uL 4.4-11.0 [facility] [id number] 07-17-2024 [id number] O ID: [id number] Author: PRERNA BONDS PT Service: ? Author Type: Physical Therapist Type: [id number] Filed: 07/17/2024 17:12 Note Text: [facility] Physical Therapy Plan of Care Certification Patient Name: Amber Koroma : 1940 [facility] #: [id number] Date: 07/17/2024 To: Chhaya Stacy MD From Therapist: Prerna Bonds PT RE: Patient Certification/ Recertification Your review, approval and electronic signature are required in order to comply with Payor: HU[employer]NA MEDICARE / Plan: HU[employer]NA MEDICARE PPO / Product Type: PPO / regulations. The identified Physical Therapy PLAN OF CARE for the patient is as follows: I89.0 Lymphedema of both lower extremities (primary encounter diagnosis) PLAN OF CARE UPDATE: Assessment: Amber Koroma demonstrates difficulty with L lower leg [...] Patient to be seen for Therapeutic exercise (10716), Manual therapy (92150), Self-halfway management (30794), Patient/Family/Caregiver Education PLAN FOR NEXT VISIT: LE volume measurements. Continue MLD and short-stretch bandaging. Facilitate pt obtaining inelastic wraps to improve self-management and skin condition (able to remove to bathe, etc.). For further details regarding this patient refer to the Physical Therapy electronically documented visit dated 07/17/2024. Provider Attestation I have reviewed the treatment plan for Amber Koroma, CC# [id number] for the period of 09/16/24 -- , established on 07/17/2024. Signature certifies the need for therapy services. Normal [facility] CNTHERAPYon 07-17-2024 CNTHERAPY OT/PT/Speech Visit ( PTWS) AMBER KOROMA ([id number]) 1940 F Date Time Provider Department 07/17/24 2:45 PM PRERNA BONDS PTWS Date Time Provider Department Center 07/17/2024 2:45 PM [id number] BONDS PTWS [place] Reason for Visit: PT Progress Note [...] by mouth once daily. Letter Text Normal [facility] Orthopedic Visit Reporton Orthopedic Visit Report [facility] [address] [place] [address] OFFICE VISIT Date of Service: 07/14/24 MR#: [id number] Acct: [id number] Name: AMBER KOROMA Rep #: [id number] : 1940 Provider: Dr. 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 AMBER KOROMA is a 83 year old F [...] No erythema, (more content not included)... Normal [facility] CNTHERAPYon 07-10-2024 CNTHERAPY OT/PT/Speech Visit ( PTWS) AMBER KOROMA ([id number]) 1940 F Date Time Provider Department 07/10/24 2:45 PM PRERNA BONDS PTWS Date Time Provider Department Center 07/10/2024 2:45 PM [id number] BONDS PTWS [place] Reason for Visit: Physical Therapy [503] [...] RN - Fully Assessed Prescriptions as of 07/10/2024 [...] 1,000 Units by mouth once daily. Normal [facility] CNTHERAPYon 06-24-2024 CNTHERAPY OT/PT/Speech Visit ( PTWS) AMBER KOROMA ([id number]) 1940 F Date Time Provider Department 06/24/24 4:00 PM VAMSHI PRERNA PTWS Date Time Provider Department Center 06/24/2024 4:00 PM [id number] PRERNA PTWS [place] Reason for Visit: Physical Therapy [503] [...] 1,000 Units by mouth once daily. Normal [facility] CNTHERAPYon 06-19-2024 CNTHERAPY OT/PT/Speech Visit ( PTWS) AMBER KOROMA ([id number]) 1940 F Date Time Provider Department 06/19/24 2:45 PM PRERNA BONDS PTWS Date Time Provider Department Center 06/19/2024 2:45 PM [id number] BONDS PTWS [place] Reason for Visit: Physical Therapy [503] [...] 1,000 Units by mouth once daily. Normal [facility] 06-12-2024 CNPN Telephone (PTWS) AMBER KOROMA ([id number]) 1940 F Date Time Provider Department 06/12/24 PRERNA BONDS PTWS During your visit today, we [...] for 06/15 that became available today d/t can. Pt first stated she could only keep Saturday's visit (06/19) because her locomotive driver can only take her on Fridays. Later, she said she would call her locomotive driver to see if she could bring [...] Endometrial cancer [C54.1] 03/19/2011 Cyst in hand [[id number]] 08/02/2011 Personal history of malignant neoplasm of [...] to excess calories *07/06/2023 Encounter Status:Closed by PRERNA BONDS on 06/12/24 Normal [facility] CNTHERAPYon 05-29-2024 CNTHERAPY OT/PT/Speech Visit ( PTWS) AMBER KOROMA ([id number]) 1940 F Date Time Provider Department 05/29/24 2:45 PM PRERNA BONDS PTWS Date Time Provider Department Center 05/29/2024 2:45 PM [id number] BONDS PTWS [place] Reason for Visit: Physical Therapy [503] [...] 1,000 Units by mouth once daily. Normal [facility] [id number] 05-25-2024 [id number] HNO ID: [id number] Author: PRERNA BONDS PT Service: ? Author Type: Physical Therapist Type: [id number] Filed: 05/25/2024 20:15 Note Text: [facility] Physical Therapy Plan of Care Certification Patient Name: Amber Koroma : 1940 CC #: [id number] Date: 05/22/2024 To: Tyler Benitez MD From Therapist: Prerna Bonds PT RE: Patient Certification/ Recertification Your review, approval and electronic signature are required in order to comply with Payor: HUMANA MEDICARE / Plan: HU[employer]NA MEDICARE PPO / Product Type: PPO / regulations. The identified Physical Therapy PLAN OF CARE for the patient is as follows: I89.0 Lymphedema of both lower extremities (primary encounter diagnosis) PLAN OF CARE UPDATE: Assessment: Amber Koroma demonstrates difficulty with B LE edema, [...] Patient to be seen for Therapeutic exercise (36492), Manual therapy (42591), Self-halfway management (23088), Patient/Family/Caregiver Education PLAN FOR NEXT VISIT: Continue MLD and compression wrapping. measure leg volume next visit. Continue to facilitate pt obtaining self-managable compression prior to discharge end of May. For further details regarding this patient refer to the Physical Therapy electronically documented visit dated 05/22/2024. Provider Attestation I have reviewed the treatment plan for Amber KoromaMITESH# [id number] for the period of 04/17/24 -- 06/21/24, established on 05/22/2024. Signature certifies the need for therapy services. Normal [facility] CNTHERAPYon 05-22-2024 CNTHERAPY OT/PT/Speech Visit ( PTWS) AMBER KOROMA ([id number]) 1940 F Date Time Provider Department 05/22/24 2:45 PM PRERNA BONDS PTWS Date Time Provider Department Center 05/22/2024 2:45 PM [id number] BONDS PTWS [place] Reason for Visit: PT Progress Note [...] once daily. Letter Text Letter Text Normal [facility] CNTHERAPYon 05-08-2024 CNTHERAPY OT/PT/Speech Visit ( PTWS) AMBER KOROMA ([id number]) 1940 F Date Time Provider Department 05/08/24 2:45 PM PRERNA BONDS PTWS Date Time Provider Department Center 05/08/2024 2:45 PM [id number] BONDS PTWS [place] [facility] Reason for Visit: Physical Therapy [503] [...] 1,000 Units by mouth once daily. Normal [facility] CNTHERAPYon 04-24-2024 CNTHERAPY OT/PT/Speech Visit ( PTWS) AMBER KOROMA ([id number]) 1940 F Date Time Provider Department 04/24/24 2:45 PM PRERNA BONDS PTWS Date Time Provider Department Center 04/24/2024 2:45 PM [id number] BONDS PTWS [place] Reason for Visit: Physical Therapy [503] [...] 1,000 Units by mouth once daily. Normal [facility] CNTHERAPYon 04-17-2024 CNTHERAPY OT/PT/Speech Visit ( PTWS) AMBER KOROMA ([id number]) 1940 F Date Time Provider Department 04/17/24 1:00 PM PRERNA BONDS PTWS Date Time Provider Department Center 04/17/2024 1:00 PM [id number] BONDS PTWS [place] Reason for Visit: PT Progress Note [...] RN - Fully Assessed Prescriptions as of 04/17/2024 [...] 1,000 Units by mouth once daily. Normal [facility] Absolute lymphocyte countOrd ered By: Tyler Benitez on 12-17-2023 Lymphocytes Auto (Unsp spec) [#/Vol] 0.86 10*3/uL 0.83-4.51 [facility] Automated lymphocyte count a s percentage of total leukocytesOrdered By: Tyler Benitez on 12-17-2023 Lymphocytes/100 WBC Auto (Unsp spec) 10.6 % 19-41 [facility] Basophil percentageOrdered B y: Tyler Benitez on 12-17-2023 Basophils/100 WBC (Bld) 0.4 % 0-1 [facility] Bilirubin [Mass/Vol] 0.40 mg/dL 0.20-1.00 [facility] Comment on above: For patients on eltr ombopag therapy, use of Dimension [place] TBIL is not recommended. Chloride [Moles/Vol] 108 mmol/L 98-107 [facility] Eosinophils/100 WBC (Bld) 1.9 % 0-5 [facility] Glucose [Mass/Vol] 113 mg/dL 74-106 [facility] Comment on above: Fasting Glucose resu lt from 100 to 125 mg/dL suggests IMPAIRED HOMEOSTASIS per A.D.A. criteria. Hemoglobin (Bld) [Mass/Vol] 11.7 g/dL 12.0-15.0 [facility] Monocytes/100 WBC (Bld) 9.6 % 0-10 [facility] Neutrophils (Bld) [#/Vol] 6.3 10*3/uL 2.0-7.7 [facility] Neutrophils/100 WBC (Bld) 77.3 % 47-70 [facility] Potassium [Moles/Vol] 3.8 mmol/L 3.5-5.1 [facility] Protein [Mass/Vol] 7.1 g/dL 6.4-8.2 [facility] Sodium [Moles/Vol] 140 mmol/L 136-145 [facility] WBC (Bld) [#/Vol] 8.1 10*3/uL 4.4-11.0 [facility] Determination of erythrocyte mean corpuscular volume (MCV)Ordered By: Tyler Benitez on 12-17-2023 MCV (RBC) [Entitic vol] 88.3 fL 81-99 [facility] Erythrocyte distribution wid th ratioOrdered By: Tyler Benitez on 12-17-2023 Erythrocyte distribution width (RBC) [Ratio] 14.5 % 11.6-14.6 [facility] Erythrocyte distribution wid th standard deviationOrdered By: Tyler Benitez on 12-17-2023 Erythrocyte distribution width (RBC) [Entitic vol] 46.5 fL 35.1-43.9 [facility] Hematocrit Auto (Bld) [Volum e fraction]Ordered By: Tyler Benitez on 12-17-2023 Hematocrit (Bld) [Volume fraction] 37.6 % 37-47 [facility] Immature granulocytes/100 WB C Auto (Bld)Ordered By: Tyler Benitez on 12-17-2023 Immature granulocytes/100 WBC (Bld) 0.200 % 0.0-0.9 [facility] Comment on above: IG% - Immature Granu locytes (promyelocytes, myelocytes and metamyelocytes) > 1% indicates that a LEFT SHIFT is Present. Laboratory - Chemistry and C hemistry - challengeOrdered By: Tyler Benitez on 12-17-2023 Albumin/Globulin [Mass ratio] 0.7 {ratio} 0.9-2.4 [facility] ALP [Catalytic activity/Vol] 86 U/L 45-117 [facility] ALT [Catalytic activity/Vol] 12 U/L 13-56 [facility] CO2 [Moles/Vol] 28.0 mmol/L 21.0-32.0 [facility] Globulin (S) [Mass/Vol] 4.2 g/dL 2.2-4.2 [facility] Magnesium [Mass/Vol] 2.3 mg/dL 1.6-2.6 [facility] Natriuretic peptide B (Bld) [Mass/Vol] 119.1 pg/mL 0-100 [facility] Urea nitrogen/Creatinine [Mass ratio] 12.9 mg/mg 10-20 [facility] Laboratory - Hematology and Cell countsOrdered By: Tyler Benitez on 12-17-2023 MCH (RBC) [Entitic mass] 27.5 pg 27.0-32.0 [facility] MCHC (RBC) [Mass/Vol] 31.1 g/dL 32-36 [facility] Nucleated RBC/100 WBC (Bld) [Ratio] 0 % 0-5 [facility] Platelet mean volume (Bld) [Entitic vol] 10.3 fL 6.2-12.0 [facility] Platelets (Bld) [#/Vol] 187 10*3/uL 150-450 [facility] No Panel InformationOrdered By: Tyler Benitez on 12-17-2023 Estimated GFR (MDRD) Amer 57 mL/min >60 [facility] Comment on above: GFR Calc Estimated GFR (MDRD) Non-Af Amer 47 mL/min >60 [facility] Comment on above: Non- GFR Calc RBC Auto (Bld) [#/Vol]Ordere d By: Tyler Benitez on 12-17-2023 RBC (Bld) [#/Vol] 4.26 10*6/uL 4.2-5.4 [facility] Serum or plasma calcium lakeisha urement (mass/volume)Ordered By: Tyler Benitez on 12-17-2023 Calcium [Mass/Vol] 9.1 mg/dL 8.5-10.1 [facility] Serum or plasma creatinine m easurement (mass/volume)Ordered By: Tyler Benitez on 12-17-2023 Creatinine [Mass/Vol] 1.16 mg/dL 0.55-1.02 [facility] Comment on above: The validity of the calculated GFR & GFRAA in patients over 70 years has not been determined. Clinical correlation is essential. Serum or plasma urea nitroge n measurement (mass/volume)Ordered By: Tyler Benitez on 12-17-2023 Urea nitrogen [Mass/Vol] 15 mg/dL 7-18 [facility] Thin prep Papanicolaou smear with manual screeningOrdered By: Tyler Benitez on 12-17-2023 Thin prep Papanicolaou smear with manual screening 2.9 g/dL 3.2-5.0 [facility] Thin prep Papanicolaou smear with manual screening 12 U/L 15-37 [facility] Thin prep Papanicolaou smear with manual screening 4 5-15 [facility] No Panel Informationon 08-29 Influenza Types A,B Rapid (Clinic) Negative [facility] POC SARS CoV-2 Antigen Negative [facility] Absolute lymphocyte countOrd ered By: Tyler Benitez on 07-01-2023 Lymphocytes Auto (Unsp spec) [#/Vol] 1.24 10*3/uL 0.83-4.51 [facility] Basophil percentageOrdered B y: Tyler Benitez on 07-01-2023 Basophils/100 WBC (Bld) 0.9 % 0-1 [facility] Bilirubin [Mass/Vol] 0.20 mg/dL 0.20-1.00 [facility] Comment on above: For patients on eltr ombopag therapy, use of Dimension [place] TBIL is not recommended. Chloride [Moles/Vol] 105 mmol/L 98-107 [facility] Eosinophils/100 WBC (Bld) 2.5 % 0-5 [facility] Glucose [Mass/Vol] 94 mg/dL 74-106 [facility] Neutrophils (Bld) [#/Vol] 3.6 10*3/uL 2.0-7.7 [facility] Neutrophils/100 WBC (Bld) 63.7 % 47-70 [facility] Potassium [Moles/Vol] 3.9 mmol/L 3.5-5.1 [facility] Protein [Mass/Vol] 7.3 g/dL 6.4-8.2 [facility] Sodium [Moles/Vol] 139 mmol/L 136-145 [facility] WBC (Bld) [#/Vol] 5.6 10*3/uL 4.4-11.0 [facility] Blood erythrocytes count (nu mber/volume)Ordered By: Tyler Benitez on 07-01-2023 RBC (Bld) [#/Vol] 3.98 10*6/uL 4.2-5.4 [facility] Blood hemoglobin measurement (mass/volume)Ordered By: Tyler Benitez on 07-01-2023 Hemoglobin (Bld) [Mass/Vol] 11.1 g/dL 12.0-15.0 [facility] Blood lymphocytes/100 leukoc ytesOrdered By: Tyler Benitez on 07-01-2023 Lymphocytes/100 WBC (Bld) 22.0 % 19-41 [facility] Blood monocytes/100 leukocyt esOrdered By: Tyler Benitez on 07-01-2023 Monocytes/100 WBC (Bld) 10.5 % 0-10 [facility] Blood platelet mean volumeOr dered By: Tyler Benitez on 07-01-2023 Platelet mean volume (Bld) [Entitic vol] 10.3 fL 6.2-12.0 [facility] Determination of erythrocyte mean corpuscular volume (MCV)Ordered By: Tyler Benitez on 07-01-2023 MCV (RBC) [Entitic vol] 89.9 fL 81-99 [facility] Hematocrit Auto (Bld) [Volum e fraction]Ordered By: Tyler Benitez on 07-01-2023 Hematocrit (Bld) [Volume fraction] 35.8 % 37-47 [facility] Laboratory - Chemistry and C hemistry - challengeOrdered By: Tyler Benitez on 07-01-2023 ALP [Catalytic activity/Vol] 83 U/L 45-117 [facility] ALT [Catalytic activity/Vol] 13 U/L 13-56 [facility] CO2 [Moles/Vol] 28.0 mmol/L 21.0-32.0 [facility] Globulin (S) [Mass/Vol] 4.4 g/dL 2.2-4.2 [facility] Magnesium [Mass/Vol] 2.5 mg/dL 1.6-2.6 [facility] Urea nitrogen/Creatinine [Mass ratio] 14.6 mg/mg 10-20 [facility] Laboratory - Hematology and Cell countsOrdered By: Tyler Benitez on 07-01-2023 Erythrocyte distribution width (RBC) [Entitic vol] 50.4 fL 35.1-43.9 [facility] Erythrocyte distribution width (RBC) [Ratio] 15.2 % 11.6-14.6 [facility] Immature granulocytes/100 WBC (Bld) 0.400 % 0.0-0.9 [facility] Comment on above: IG% - Immature Granu locytes (promyelocytes, myelocytes and metamyelocytes) > 1% indicates that a LEFT SHIFT is Present. MCH (RBC) [Entitic mass] 27.9 pg 27.0-32.0 [facility] Nucleated RBC/100 WBC (Bld) [Ratio] 0 % 0-5 [facility] MCHC Auto (RBC) [Mass/Vol]Or dered By: Tyler Benitez on 07-01-2023 MCHC (RBC) [Mass/Vol] 31.0 g/dL 32-36 [facility] No Panel InformationOrdered By: Tyler Benitez on 07-01-2023 Estimated GFR (MDRD) Amer 71 mL/min >60 [facility] Comment on above: GFR Calc Estimated GFR (MDRD) Non-Af Amer 59 mL/min >60 [facility] Comment on above: Non- GFR Calc Platelets bldOrdered By: Reyna Benitez on 07-01-2023 Platelets (Bld) [#/Vol] 221 10*3/uL 150-450 [facility] Serum or plasma albumin lakeisha urement (mass/volume)Ordered By: Tyler Benitez on 07-01-2023 Albumin [Mass/Vol] 2.9 g/dL 3.2-5.0 [facility] Serum or plasma albumin/glob ulin mass ratioOrdered By: Tyler Benitez on 07-01-2023 Albumin/Globulin [Mass ratio] 0.7 {ratio} 0.9-2.4 [facility] Serum or plasma calcium lakeisha urement (mass/volume)Ordered By: Tyler Benitez on 07-01-2023 Calcium [Mass/Vol] 9.1 mg/dL 8.5-10.1 [facility] Serum or plasma creatinine m easurement (mass/volume)Ordered By: Tyler Benitez on 07-01-2023 Creatinine [Mass/Vol] 0.96 mg/dL 0.55-1.02 [facility] Comment on above: The validity of the calculated GFR & GFRAA in patients over 70 years has not been determined. Clinical correlation is essential. Serum or plasma urea nitroge n measurement (mass/volume)Ordered By: Tyler Benitez on 07-01-2023 Urea nitrogen [Mass/Vol] 14 mg/dL 7-18 [facility] Thin prep Papanicolaou smear with manual screeningOrdered By: Tyler Benitez on 07-01-2023 Thin prep Papanicolaou smear with manual screening 14 U/L 15-37 [facility] Thin prep Papanicolaou smear with manual screening 6 5-15 [facility] Basophil percentageOrdered B y: Tyler Benitez on 06-18-2023 Chloride [Moles/Vol] 105 mmol/L 98-107 [facility] Glucose [Mass/Vol] 99 mg/dL 74-106 [facility] Potassium [Moles/Vol] 4.3 mmol/L 3.5-5.1 [facility] Sodium [Moles/Vol] 138 mmol/L 136-145 [facility] Laboratory - Chemistry and C hemistry - challengeOrdered By: Tyler Benitez on 06-18-2023 CO2 [Moles/Vol] 28.0 mmol/L 21.0-32.0 [facility] Urea nitrogen/Creatinine [Mass ratio] 15.7 mg/mg 10-20 [facility] No Panel InformationOrdered By: Tyler Benitez on 06-18-2023 Estimated GFR (MDRD) Amer 40 mL/min >60 [facility] Comment on above: GFR Calc Estimated GFR (MDRD) Non-Af Amer 33 mL/min >60 [facility] Comment on above: Non- GFR Calc Serum or plasma calcium lakeisha urement (mass/volume)Ordered By: Tyler Benitez on 06-18-2023 Calcium [Mass/Vol] 9.3 mg/dL 8.5-10.1 [facility] Serum or plasma creatinine m easurement (mass/volume)Ordered By: Tyler Benitez on 06-18-2023 Creatinine [Mass/Vol] 1.59 mg/dL 0.55-1.02 [facility] Comment on above: The validity of the calculated GFR & GFRAA in patients over 70 years has not been determined. Clinical correlation is essential. Serum or plasma urea nitroge n measurement (mass/volume)Ordered By: Tyler Benitez on 06-18-2023 Urea nitrogen [Mass/Vol] 25 mg/dL 7-18 [facility] Thin prep Papanicolaou smear with manual screeningOrdered By: Tyler Benitez on 06-18-2023 Thin prep Papanicolaou smear with manual screening 5 5-15 [facility] Basophil percentageOrdered B y: Tyler Benitez on 06-10-2023 Chloride [Moles/Vol] 98 mmol/L 98-107 [facility] Glucose [Mass/Vol] 90 mg/dL 74-106 [facility] Potassium [Moles/Vol] 4.2 mmol/L 3.5-5.1 [facility] Sodium [Moles/Vol] 133 mmol/L 136-145 [facility] Laboratory - Chemistry and C hemistry - challengeOrdered By: Tyler Benitez on 06-10-2023 CO2 [Moles/Vol] 27.0 mmol/L 21.0-32.0 [facility] Magnesium [Mass/Vol] 2.8 mg/dL 1.6-2.6 [facility] Urea nitrogen/Creatinine [Mass ratio] 10.1 mg/mg 10-20 [facility] No Panel InformationOrdered By: Tyler Benitez on 06-10-2023 Estimated GFR (MDRD) Amer 17 mL/min >60 [facility] Comment on above: GFR Calc Estimated GFR (MDRD) Non-Af Amer 14 mL/min >60 [facility] Comment on above: Non- GFR Calc Serum or plasma calcium lakeisha urement (mass/volume)Ordered By: Tyler Benitez on 06-10-2023 Calcium [Mass/Vol] 9.5 mg/dL 8.5-10.1 [facility] Serum or plasma creatinine m easurement (mass/volume)Ordered By: Tyler Benitez on 06-10-2023 Creatinine [Mass/Vol] 3.36 mg/dL 0.55-1.02 [facility] Comment on above: The validity of the calculated GFR & GFRAA in patients over 70 years has not been determined. Clinical correlation is essential. Serum or plasma urea nitroge n measurement (mass/volume)Ordered By: Tyler Benitez on 06-10-2023 Urea nitrogen [Mass/Vol] 34 mg/dL 7-18 [facility] Thin prep Papanicolaou smear with manual screeningOrdered By: Tyler Benitez on 06-10-2023 Thin prep Papanicolaou smear with manual screening 8 5-15 [facility] Basophil percentageOrdered B y: Tyler Benitez on 06-03-2023 Chloride [Moles/Vol] 102 mmol/L 98-107 [facility] Glucose [Mass/Vol] 89 mg/dL 74-106 [facility] Potassium [Moles/Vol] 3.8 mmol/L 3.5-5.1 [facility] Sodium [Moles/Vol] 136 mmol/L 136-145 [facility] Laboratory - Chemistry and C hemistry - challengeOrdered By: Tyler Benitez on 06-03-2023 CO2 [Moles/Vol] 28.0 mmol/L 21.0-32.0 [facility] Urea nitrogen/Creatinine [Mass ratio] 18.7 mg/mg 10-20 [facility] No Panel InformationOrdered By: Tyler Benitez on 06-03-2023 Estimated GFR (MDRD) Amer 63 mL/min >60 [facility] Comment on above: GFR Calc Estimated GFR (MDRD) Non-Af Amer 52 mL/min >60 [facility] Comment on above: Non- GFR Calc Serum or plasma calcium lakeisha urement (mass/volume)Ordered By: Tyler Benitez on 06-03-2023 Calcium [Mass/Vol] 9.3 mg/dL 8.5-10.1 [facility] Serum or plasma creatinine m easurement (mass/volume)Ordered By: Tyler Benitez on 06-03-2023 Creatinine [Mass/Vol] 1.07 mg/dL 0.55-1.02 [facility] Comment on above: The validity of the calculated GFR & GFRAA in patients over 70 years has not been determined. Clinical correlation is essential. Serum or plasma urea nitroge n measurement (mass/volume)Ordered By: Tyler Benitez on 06-03-2023 Urea nitrogen [Mass/Vol] 20 mg/dL 7-18 [facility] Thin prep Papanicolaou smear with manual screeningOrdered By: Tyler Benitez on 06-03-2023 Thin prep Papanicolaou smear with manual screening 6 5-15 [facility] Absolute lymphocyte countOrd ered By: Sage Augustin on 05-24-2023 Lymphocytes Auto (Unsp spec) [#/Vol] 0.36 10*3/uL 0.83-4.51 [facility] Basophil percentageOrdered B y: Sage Augustin on 05-24-2023 Basophils/100 WBC (Bld) 0.5 % 0-1 [facility] Chloride [Moles/Vol] 108 mmol/L 98-107 [facility] Eosinophils/100 WBC (Bld) 2.5 % 0-5 [facility] Glucose [Mass/Vol] 100 mg/dL 74-106 [facility] Comment on above: Fasting Glucose resu lt from 100 to 125 mg/dL suggests IMPAIRED HOMEOSTASIS per A.D.A. criteria. Neutrophils (Bld) [#/Vol] 6.4 10*3/uL 2.0-7.7 [facility] Neutrophils/100 WBC (Bld) 85.4 % 47-70 [facility] Potassium [Moles/Vol] 4.6 mmol/L 3.5-5.1 [facility] Sodium [Moles/Vol] 138 mmol/L 136-145 [facility] WBC (Bld) [#/Vol] 7.5 10*3/uL 4.4-11.0 [facility] Blood erythrocytes count (nu mber/volume)Ordered By: Sage Augustin on 05-24-2023 RBC (Bld) [#/Vol] 4.14 10*6/uL 4.2-5.4 [facility] Blood hemoglobin measurement (mass/volume)Ordered By: Sage Augustin on 05-24-2023 Hemoglobin (Bld) [Mass/Vol] 11.5 g/dL 12.0-15.0 [facility] Blood lymphocytes/100 leukoc ytesOrdered By: Sage Augustin on 05-24-2023 Lymphocytes/100 WBC (Bld) 4.8 % 19-41 [facility] Blood manual differential co mment interpretation (narrative result)Ordered By: Sage Augustin on 05-24-2023 Manual differential comment Bryce (Bld) [Interp] COMMENT [facility] Comment on above: LYMPHOPENIA. Blood monocytes/100 leukocyt esOrdered By: Sage Augustin on 05-24-2023 Monocytes/100 WBC (Bld) 6.4 % 0-10 [facility] Blood platelet mean volumeOr dered By: Sage Augustin on 05-24-2023 Platelet mean volume (Bld) [Entitic vol] 9.8 fL 6.2-12.0 [facility] Determination of erythrocyte mean corpuscular volume (MCV)Ordered By: Sage Augustin on 05-24-2023 MCV (RBC) [Entitic vol] 90.3 fL 81-99 [facility] Hematocrit Auto (Bld) [Volum e fraction]Ordered By: Sage Augustin on 05-24-2023 Hematocrit (Bld) [Volume fraction] 37.4 % 37-47 [facility] Laboratory - Chemistry and C hemistry - challengeOrdered By: Sage Augustin on 05-24-2023 CO2 [Moles/Vol] 26.0 mmol/L 21.0-32.0 [facility] Urea nitrogen/Creatinine [Mass ratio] 15.3 mg/mg 10-20 [facility] Laboratory - Hematology and Cell countsOrdered By: Sage Augustin on 05-24-2023 Erythrocyte distribution width (RBC) [Entitic vol] 53.1 fL 35.1-43.9 [facility] Erythrocyte distribution width (RBC) [Ratio] 15.9 % 11.6-14.6 [facility] Immature granulocytes/100 WBC (Bld) 0.400 % 0.0-0.9 [facility] Comment on above: IG% - Immature Granu locytes (promyelocytes, myelocytes and metamyelocytes) > 1% indicates that a LEFT SHIFT is Present. MCH (RBC) [Entitic mass] 27.8 pg 27.0-32.0 [facility] Nucleated RBC/100 WBC (Bld) [Ratio] 0 % 0-5 [facility] MCHC Auto (RBC) [Mass/Vol]Or dered By: Sage Augustin on 05-24-2023 MCHC (RBC) [Mass/Vol] 30.7 g/dL 32-36 [facility] No Panel InformationOrdered By: Sage Augustin on 05-24-2023 Estimated Creatinine Clearance Calc 39.86 ml/min [facility] Estimated GFR (MDRD) Amer 47 mL/min >60 [facility] Comment on above: GFR Calc Estimated GFR (MDRD) Non-Af Amer 39 mL/min >60 [facility] Comment on above: Non- GFR Calc Platelets bldOrdered By: Katiuska Augustin on 05-24-2023 Platelets (Bld) [#/Vol] 216 10*3/uL 150-450 [facility] Serum or plasma calcium lakeisha urement (mass/volume)Ordered By: Sage Augustin on 05-24-2023 Calcium [Mass/Vol] 9.0 mg/dL 8.5-10.1 [facility] Serum or plasma creatinine m easurement (mass/volume)Ordered By: Sage Augustin on 05-24-2023 Creatinine [Mass/Vol] 1.37 mg/dL 0.55-1.02 [facility] Comment on above: The validity of the calculated GFR & GFRAA in patients over 70 years has not been determined. Clinical correlation is essential. Serum or plasma urea nitroge n measurement (mass/volume)Ordered By: Sage Augustin on 05-24-2023 Urea nitrogen [Mass/Vol] 21 mg/dL 7-18 [facility] Thin prep Papanicolaou smear with manual screeningOrdered By: Sage Augustin on 05-24-2023 Thin prep Papanicolaou smear with manual screening 4 5-15 [facility] Absolute lymphocyte countOrd ered By: Mariusz Waters on 04-16-2023 Lymphocytes Auto (Unsp spec) [#/Vol] 0.99 10*3/uL 0.83-4.51 [facility] Basophil percentageOrdered B y: Mariusz Waters on 04-16-2023 Basophil percentage 2.4 mg/dL 2.5-4.9 [facility] Basophils/100 WBC (Bld) 0.6 % 0-1 [facility] Chloride [Moles/Vol] 102 mmol/L 98-107 [facility] Eosinophils/100 WBC (Bld) 2.5 % 0-5 [facility] Glucose [Mass/Vol] 98 mg/dL 74-106 [facility] Neutrophils (Bld) [#/Vol] 4.3 10*3/uL 2.0-7.7 [facility] Neutrophils/100 WBC (Bld) 67.3 % 47-70 [facility] Potassium [Moles/Vol] 3.8 mmol/L 3.5-5.1 [facility] Sodium [Moles/Vol] 139 mmol/L 136-145 [facility] WBC (Bld) [#/Vol] 6.4 10*3/uL 4.4-11.0 [facility] Blood erythrocytes count (nu mber/volume)Ordered By: Mariusz Waters on 04-16-2023 RBC (Bld) [#/Vol] 3.52 10*6/uL 4.2-5.4 [facility] Blood hemoglobin measurement (mass/volume)Ordered By: Mariusz Waters on 04-16-2023 Hemoglobin (Bld) [Mass/Vol] 9.9 g/dL 12.0-15.0 [facility] Blood lymphocytes/100 leukoc ytesOrdered By: Mariusz Waters on 04-16-2023 Lymphocytes/100 WBC (Bld) 15.5 % 19-41 [facility] Blood monocytes/100 leukocyt esOrdered By: Mariusz Waters on 04-16-2023 Monocytes/100 WBC (Bld) 13.3 % 0-10 [facility] Blood platelet mean volumeOr dered By: Mariusz Waters on 04-16-2023 Platelet mean volume (Bld) [Entitic vol] 10.7 fL 6.2-12.0 [facility] Determination of erythrocyte mean corpuscular volume (MCV)Ordered By: Mariusz Waters on 04-16-2023 MCV (RBC) [Entitic vol] 89.2 fL 81-99 [facility] Hematocrit Auto (Bld) [Volum e fraction]Ordered By: Mariusz Waters on 04-16-2023 Hematocrit (Bld) [Volume fraction] 31.4 % 37-47 [facility] Laboratory - Chemistry and C hemistry - challengeOrdered By: Mariusz Waters on 04-16-2023 CO2 [Moles/Vol] 31.0 mmol/L 21.0-32.0 [facility] Urea nitrogen/Creatinine [Mass ratio] 11.3 mg/mg 10-20 [facility] Laboratory - Hematology and Cell countsOrdered By: Mariusz Waters on 04-16-2023 Erythrocyte distribution width (RBC) [Entitic vol] 48.6 fL 35.1-43.9 [facility] Erythrocyte distribution width (RBC) [Ratio] 15.1 % 11.6-14.6 [facility] Immature granulocytes/100 WBC (Bld) 0.800 % 0.0-0.9 [facility] Comment on above: IG% - Immature Granu locytes (promyelocytes, myelocytes and metamyelocytes) > 1% indicates that a LEFT SHIFT is Present. MCH (RBC) [Entitic mass] 28.1 pg 27.0-32.0 [facility] Nucleated RBC/100 WBC (Bld) [Ratio] 0 % 0-5 [facility] MCHC Auto (RBC) [Mass/Vol]Or dered By: Mariusz Waters on 04-16-2023 MCHC (RBC) [Mass/Vol] 31.5 g/dL 32-36 [facility] Comment on above: Delta: 29.6 on 04/15 No Panel InformationOrdered By: Mariusz Waters on 04-16-2023 Estimated Creatinine Clearance Calc 52.96 ml/min [facility] Estimated GFR (MDRD) Amer 89 mL/min >60 [facility] Comment on above: GFR Calc Estimated GFR (MDRD) Non-Af Amer 73 mL/min >60 [facility] Comment on above: Non- GFR Calc Platelets bldOrdered By: Mi Waters on 04-16-2023 Platelets (Bld) [#/Vol] 194 10*3/uL 150-450 [facility] Serum or plasma calcium lakeisha urement (mass/volume)Ordered By: Mariusz Waters on 04-16-2023 Calcium [Mass/Vol] 8.8 mg/dL 8.5-10.1 [facility] Serum or plasma creatinine m easurement (mass/volume)Ordered By: Mariusz Waters on 04-16-2023 Creatinine [Mass/Vol] 0.79 mg/dL 0.55-1.02 [facility] Comment on above: The validity of the calculated GFR & GFRAA in patients over 70 years has not been determined. Clinical correlation is essential. Serum or plasma urea nitroge n measurement (mass/volume)Ordered By: Mariusz Waters on 04-16-2023 Urea nitrogen [Mass/Vol] 9 mg/dL 7-18 [facility] Thin prep Papanicolaou smear with manual screeningOrdered By: Mariusz Waters on 04-16-2023 Thin prep Papanicolaou smear with manual screening 6 5-15 [facility] Absolute lymphocyte countOrd ered By: Kikomichelle Pittman on 04-15-2023 Lymphocytes Auto (Unsp spec) [#/Vol] 0.95 10*3/uL 0.83-4.51 [facility] Basophil percentageOrdered B y: Kikomichelle Pittman on 04-15-2023 Basophil percentage 0 SEEN /hpf 0-5 [facility] Lactate [Moles/Vol] 1.1 mmol/L 0.4-2.0 [facility] Basophils/100 WBC (Bld) 0.8 % 0-1 [facility] Bilirubin [Mass/Vol] 0.50 mg/dL 0.20-1.00 [facility] Comment on above: For patients on eltr ombopag therapy, use of Dimension [place] TBIL is not recommended. Chloride [Moles/Vol] 100 mmol/L 98-107 [facility] Eosinophils/100 WBC (Bld) 3.6 % 0-5 [facility] Glucose [Mass/Vol] 91 mg/dL 74-106 [facility] Neutrophils (Bld) [#/Vol] 4.1 10*3/uL 2.0-7.7 [facility] Neutrophils/100 WBC (Bld) 66.9 % 47-70 [facility] Potassium [Moles/Vol] 4.2 mmol/L 3.5-5.1 [facility] Protein [Mass/Vol] 6.5 g/dL 6.4-8.2 [facility] Sodium [Moles/Vol] 136 mmol/L 136-145 [facility] WBC (Bld) [#/Vol] 6.1 10*3/uL 4.4-11.0 [facility] Bilirubin Test strip Ql (U)O rdered By: Kiko Pittman on 04-15-2023 Bilirubin Ql (U) Negative Negative [facility] Blood erythrocytes count (nu mber/volume)Ordered By: Kiko Pittman on 04-15-2023 RBC (Bld) [#/Vol] 3.82 10*6/uL 4.2-5.4 [facility] Blood hemoglobin measurement (mass/volume)Ordered By: Kiko Pittman on 04-15-2023 Hemoglobin (Bld) [Mass/Vol] 10.4 g/dL 12.0-15.0 [facility] Blood lymphocytes/100 leukoc ytesOrdered By: Kiko Pittman on 04-15-2023 Lymphocytes/100 WBC (Bld) 15.7 % 19-41 [facility] Blood manual differential co mment interpretation (narrative result)Ordered By: Kiko Pittman on 04-15-2023 Manual differential comment Bryce (Bld) [Interp] SCANNED [facility] Blood monocytes/100 leukocyt esOrdered By: Kiko Pittman on 04-15-2023 Monocytes/100 WBC (Bld) 12.0 % 0-10 [facility] Blood platelet mean volumeOr dered By: Kiko Pittman on 04-15-2023 Platelet mean volume (Bld) [Entitic vol] 11.1 fL 6.2-12.0 [facility] Determination of erythrocyte mean corpuscular volume (MCV)Ordered By: Kiko Pittman on 04-15-2023 MCV (RBC) [Entitic vol] 91.9 fL 81-99 [facility] Erythrocyte sedimentation ra teOrdered By: Mariusz Waters on 08-21-2023 ESR (Bld) [Velocity] 41 mm/h 0-30 [facility] Hematocrit Auto (Bld) [Volum e fraction]Ordered By: Kiko Pittman on 04-15-2023 Hematocrit (Bld) [Volume fraction] 35.1 % 37-47 [facility] Ketones Test strip Ql (U)Ord ered By: Kiko Pittman on 04-15-2023 Ketones Ql (U) Negative Negative [facility] Laboratory - Chemistry and C hemistry - challengeOrdered By: Kikomichelle Pittman on 04-15-2023 ALP [Catalytic activity/Vol] 76 U/L 45-117 [facility] ALT [Catalytic activity/Vol] 16 U/L 13-56 [facility] CO2 [Moles/Vol] 32.0 mmol/L 21.0-32.0 [facility] Globulin (S) [Mass/Vol] 4.2 g/dL 2.2-4.2 [facility] Urea nitrogen/Creatinine [Mass ratio] 11.7 mg/mg 10-20 [facility] Laboratory - Hematology and Cell countsOrdered By: Kikomichelle Pittman on 04-15-2023 Erythrocyte distribution width (RBC) [Entitic vol] 50.0 fL 35.1-43.9 [facility] Erythrocyte distribution width (RBC) [Ratio] 15.0 % 11.6-14.6 [facility] Immature granulocytes/100 WBC (Bld) 1.000 % 0.0-0.9 [facility] Comment on above: IG% - Immature Granu locytes (promyelocytes, myelocytes and metamyelocytes) > 1% indicates that a LEFT SHIFT is Present. MCH (RBC) [Entitic mass] 27.2 pg 27.0-32.0 [facility] Nucleated RBC/100 WBC (Bld) [Ratio] 0 % 0-5 [facility] MCHC Auto (RBC) [Mass/Vol]Or dered By: Kikomichelle Pittman on 04-15-2023 MCHC (RBC) [Mass/Vol] 29.6 g/dL 32-36 [facility] Mucus LM Ql (Urine sed)Order ed By: Kikomichelle Pittman on 04-15-2023 Mucus Ql (Urine sed) 0 SEEN /hpf [facility] Nitrite Test strip Ql (U)Ord ered By: Kiko Pittman on 04-15-2023 Nitrite Ql (U) Negative Negative [facility] No Panel InformationOrdered By: Kiko Pittman on 04-15-2023 Estimated GFR (MDRD) Amer 66 mL/min >60 [facility] Comment on above: GFR Calc Estimated GFR (MDRD) Non-Af Amer 54 mL/min >60 [facility] Comment on above: Non- GFR Calc Platelets bldOrdered By: Kiko Pittman on 04-15-2023 Platelets (Bld) [#/Vol] 169 10*3/uL 150-450 [facility] Protein Test strip Ql (U)Ord ered By: Kiko Pittman on 04-15-2023 Protein Ql (U) Negative Negative [facility] Serum or plasma C reactive p rotein measurement (mass/volume)Ordered By: Mariusz Waters on 04-15-2023 CRP [Mass/Vol] 14.90 mg/L 0.0-3.0 [facility] Comment on above: C-Reactive Protein ( CRP) provides useful information for thediagnosis, therapy and monitoring of inflammatory processesand associated diseases. For the evaluation of Relative Riskfor Cardiovascular Disease, a High Sensitivity CRP (HSCRP)should be ordered. Serum or plasma albumin lakeisha urement (mass/volume)Ordered By: Kiko Pittman on 04-15-2023 Albumin [Mass/Vol] 2.3 g/dL 3.2-5.0 [facility] Serum or plasma albumin/glob ulin mass ratioOrdered By: Kiko Pittman on 04-15-2023 Albumin/Globulin [Mass ratio] 0.5 {ratio} 0.9-2.4 [facility] Serum or plasma calcium lakeisha urement (mass/volume)Ordered By: Kiko Pittman on 04-15-2023 Calcium [Mass/Vol] 8.6 mg/dL 8.5-10.1 [facility] Serum or plasma creatinine m easurement (mass/volume)Ordered By: Kiko Pittman on 04-15-2023 Creatinine [Mass/Vol] 1.03 mg/dL 0.55-1.02 [facility] Comment on above: The validity of the calculated GFR & GFRAA in patients over 70 years has not been determined. Clinical correlation is essential. Serum or plasma urea nitroge n measurement (mass/volume)Ordered By: Kiko Pitmtan on 04-15-2023 Urea nitrogen [Mass/Vol] 12 mg/dL 7-18 [facility] Squamous epithelial cells de tection in urine sediment by light microscopyOrdered By: Kiko Pittman on 04-15-2023 Epithelial cells.squamous LM Ql (Urine sed) 0-5 SEEN /hpf 5-10 [facility] Thin prep Papanicolaou smear with manual screeningOrdered By: Kiko Pittman on 04-15-2023 Thin prep Papanicolaou smear with manual screening 22 U/L 15-37 [facility] Thin prep Papanicolaou smear with manual screening 4 5-15 [facility] Urine blood detectionOrdered By: Kiko Pittman on 04-15-2023 RBC Ql (U) Negative Negative [facility] RBC Ql (U) 0 SEEN /hpf 0-5 [facility] Urine clarityOrdered By: Kiko Pittman on 04-15-2023 Clarity (U) Sl. Cloudy Clear [facility] Urine color determinationOrd ered By: Kiko Pittman on 04-15-2023 Color (U) Yellow Yellow [facility] Urine glucose detectionOrder ed By: Kiko Pittman on 04-15-2023 Glucose Ql (U) 50 mg/dl Normal [facility] Urine leukocyte esterase det ection by dipstickOrdered By: Kiko Pittman on 04-15-2023 Leukocyte esterase Test strip Ql (U) 25 /ul Negative [facility] Urine pHOrdered By: Kiko torres on 04-15-2023 pH (U) 7.0 [pH] 5.0 - 8.0 [facility] Urine sediment bacteria coun t by microscopy (number/high power field)Ordered By: Kiko Pittman on 04-15-2023 Bacteria LM.HPF (Urine sed) [#/Area] 0 /[HPF] None Seen [facility] Urine specific gravity measu rementOrdered By: Kiko Pittman on 04-15-2023 Specific gravity (U) [Rel density] 1.005 1.002-1.03 0 [facility] Urobilinogen Auto test strip Ql (U)Ordered By: Kiko Pittman on 04-15-2023 Urobilinogen Ql (U) Normal mg/dl Normal [facility] Absolute lymphocyte countOrd ered By: Kiko Pittman on 04-04-2023 Lymphocytes Auto (Unsp spec) [#/Vol] 1.10 10*3/uL 0.83-4.51 [facility] Basophil percentageOrdered B y: Kiko Pittman on 04-04-2023 Basophils/100 WBC (Bld) 0.8 % 0-1 [facility] Chloride [Moles/Vol] 105 mmol/L 98-107 [facility] Eosinophils/100 WBC (Bld) 1.5 % 0-5 [facility] Glucose [Mass/Vol] 95 mg/dL 74-106 [facility] Neutrophils (Bld) [#/Vol] 4.5 10*3/uL 2.0-7.7 [facility] Neutrophils/100 WBC (Bld) 68.0 % 47-70 [facility] Potassium [Moles/Vol] 4.1 mmol/L 3.5-5.1 [facility] Sodium [Moles/Vol] 137 mmol/L 136-145 [facility] WBC (Bld) [#/Vol] 6.6 10*3/uL 4.4-11.0 [facility] Blood erythrocytes count (nu mber/volume)Ordered By: Kiko Pittman on 04-04-2023 RBC (Bld) [#/Vol] 3.42 10*6/uL 4.2-5.4 [facility] Blood hemoglobin measurement (mass/volume)Ordered By: Kiko Pittman on 04-04-2023 Hemoglobin (Bld) [Mass/Vol] 9.7 g/dL 12.0-15.0 [facility] Blood lymphocytes/100 leukoc ytesOrdered By: Kiko Pittman on 04-04-2023 Lymphocytes/100 WBC (Bld) 16.8 % 19-41 [facility] Blood monocytes/100 leukocyt esOrdered By: Kiko Pittman on 04-04-2023 Monocytes/100 WBC (Bld) 11.8 % 0-10 [facility] Blood platelet mean volumeOr dered By: Kiko Pittman on 04-04-2023 Platelet mean volume (Bld) [Entitic vol] 9.7 fL 6.2-12.0 [facility] Determination of erythrocyte mean corpuscular volume (MCV)Ordered By: Kiko Pittman on 04-04-2023 MCV (RBC) [Entitic vol] 91.8 fL 81-99 [facility] Hematocrit Auto (Bld) [Volum e fraction]Ordered By: Kiko Pittman on 04-04-2023 Hematocrit (Bld) [Volume fraction] 31.4 % 37-47 [facility] Laboratory - Chemistry and C hemistry - challengeOrdered By: Kikomichelle Pittman on 04-04-2023 CO2 [Moles/Vol] 24.0 mmol/L 21.0-32.0 [facility] Urea nitrogen/Creatinine [Mass ratio] 9.5 mg/mg 10-20 [facility] Laboratory - Hematology and Cell countsOrdered By: Kiko Pittman on 04-04-2023 Erythrocyte distribution width (RBC) [Entitic vol] 48.9 fL 35.1-43.9 [facility] Erythrocyte distribution width (RBC) [Ratio] 14.5 % 11.6-14.6 [facility] Immature granulocytes/100 WBC (Bld) 1.100 % 0.0-0.9 [facility] Comment on above: IG% - Immature Granu locytes (promyelocytes, myelocytes and metamyelocytes) > 1% indicates that a LEFT SHIFT is Present. MCH (RBC) [Entitic mass] 28.4 pg 27.0-32.0 [facility] Nucleated RBC/100 WBC (Bld) [Ratio] 0 % 0-5 [facility] MCHC Auto (RBC) [Mass/Vol]Or dered By: Kiko Pittman on 04-04-2023 MCHC (RBC) [Mass/Vol] 30.9 g/dL 32-36 [facility] No Panel InformationOrdered By: Kiko Pittman on 04-04-2023 Estimated Creatinine Clearance Calc 41.70 ml/min [facility] Estimated GFR (MDRD) Amer 47 mL/min >60 [facility] Comment on above: GFR Calc Estimated GFR (MDRD) Non-Af Amer 39 mL/min >60 [facility] Comment on above: Non- GFR Calc Platelets bldOrdered By: Kiko Pittman on 04-04-2023 Platelets (Bld) [#/Vol] 332 10*3/uL 150-450 [facility] Serum or plasma calcium lakesiha urement (mass/volume)Ordered By: Kiko Pittman on 04-04-2023 Calcium [Mass/Vol] 9.4 mg/dL 8.5-10.1 [facility] Serum or plasma creatinine m easurement (mass/volume)Ordered By: Kiko Pittman on 04-04-2023 Creatinine [Mass/Vol] 1.37 mg/dL 0.55-1.02 [facility] Comment on above: The validity of the calculated GFR & GFRAA in patients over 70 years has not been determined. Clinical correlation is essential. Serum or plasma urea nitroge n measurement (mass/volume)Ordered By: Kiko iPttman on 04-04-2023 Urea nitrogen [Mass/Vol] 13 mg/dL 7-18 [facility] Thin prep Papanicolaou smear with manual screeningOrdered By: Kiko Pittman on 04-04-2023 Thin prep Papanicolaou smear with manual screening 8 5-15 [facility] CBC panel Auto (Bld)on 04-01 Erythrocyte distribution width (RBC) [Ratio] 14.1 % Normal 11.5-15.0 [facility] Comment on above: Order Comment: Specveronica men Type: BLOOD SPECIMENOrdering Facility: [facility] Address: [address] [address] Performed By: #### 5 8410-2 ####[facility]ORATORYCLIA [id number] [address] [place] Hematocrit (Bld) [Volume fraction] 26.8 % Low 36.0-46.0 [facility] Comment on above: Order Comment: Kareni men Type: BLOOD SPECIMENOrdering Facility: [facility] Address: [address] [address] Performed By: #### 5 8410-2 ####[facility] LABORATORYCLIA [id number] [place] [address] [place] Hemoglobin (Bld) [Mass/Vol] 8.3 g/dL Low 11.5-15.5 [facility] Comment on above: Order Comment: Speci men Type: BLOOD SPECIMENOrdering Facility: [facility] Address: [address] [place] [address] Performed By: #### 5 8410-2 ####[facility] LABORATORYCLIA [id number] [address] MCH (RBC) [Entitic mass] 27.9 pg Normal 26.0-34.0 [facility] Comment on above: Order Comment: Speci men Type: BLOOD SPECIMENOrdering Facility: [facility] Address: [address] [place] [address] Performed By: #### 5 8410-2 ####[facility] LABORATORYCLIA [id number] [address] MCHC (RBC) [Mass/Vol] 31.0 g/dL Normal 30.5-36.0 [facility] Comment on above: Order Comment: Speci men Type: BLOOD SPECIMENOrdering Facility: [facility] Address: [address] [place] [address] Performed By: #### 5 8410-2 ####[facility] LABORATORYCLIA [id number] [address] MCV (RBC) [Entitic vol] 90.2 fL Normal 80.0-100.0 [facility] Comment on above: Order Comment: Speci men Type: BLOOD SPECIMENOrdering Facility: [facility] Address: [address] [place] [address] Performed By: #### 5 8410-2 ####[facility] LABORATORYCLIA [id number] [address] Nucleated RBC (Bld) [#/Vol] 10*3/uL Normal <0.01 [facility] Comment on above: Order Comment: Speci men Type: BLOOD SPECIMENOrdering Facility: [facility] Address: [address] [place] [address] Performed By: #### 5 8410-2 ####[facility] LABORATORYCLIA [id number] [place] [address] [place] Platelet mean volume (Bld) [Entitic vol] 10.2 fL Normal 9.0-12.7 [facility] Comment on above: Order Comment: Speci men Type: BLOOD SPECIMENOrdering Facility: [facility] Address: [address] [place] [address] Performed By: #### 5 8410-2 ####[facility] LABORATORYCLIA [id number] [address] [place] Platelets (Bld) [#/Vol] 334 10*3/uL Normal 150-400 [facility] Comment on above: Order Comment: Speci men Type: BLOOD SPECIMENOrdering Facility: [facility] Address: [address] [place] [address] Performed By: #### 5 8410-2 ####[facility]ORATORYCLIA [id number] [address] RBC (Bld) [#/Vol] 2.97 10*6/uL Low 3.90-5.[address] [facility] Comment on above: Order Comment: Speci men Type: BLOOD SPECIMENOrdering Facility: [facility] Address: [address] [place] [address] Performed By: #### 5 8410-2 ####[facility]ORATORYCLIA [id number] [address] WBC (Bld) [#/Vol] 6.11 10*3/uL Normal 3.70-11.[address] [facility] Comment on above: Order Comment: Speci men Type: BLOOD SPECIMENOrdering Facility: [facility] Address: [address] [place] [address] Performed By: #### 5 8410-2 ####[facility] LABORATORYCLIA [id number] [address] CNDSon 04-01-2023 CNDS HNO ID: [id number] Author: Chhaya Stacy MD Service: Hospital Medicine Author Type: Physician Type: Discharge Summary Filed: 04/14/2023 4:37 PM Note Text: DISCHARGE SUMMARY PATIENT NAME: Amber B Ga Code Status: Not on file Highest Readmission [...] Doctor: Chhaya Stacy MD Primary Care Provider: Tyler Benitez MD My Medical Team Members: Treatment Team: Attending Provider: Chhaya Stacy MD Consulting: Willow Frank MD Primary Service: , [facility] Nurse Practitioner: Carmelita Myers APRN.PLASTER MECH[employer]IC MY CONDITION AT DISCHARGE: Stable REASON I [...] lymphedema specialist so she was [facility] to continue outpatient PT with her therapist.. The family was concerned about the discharge however I spoke with Amy PalmerMilind regarding her refusal to stay in the hospital until her results are back and as such I will discharge her as she is competent to make her own decisions. She inquired if she is a candidate for hospice and I stated she is not. 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 Patient was cleared for discharge on levaquin with outpatient physical therapist f/up /PCP.Lisinopril was resumed at discharge .[facility] outpatient renal function test during f/up with pcp Will call if there is any need to change antibiotic based on results SUMMARY OF WHAT HAPPENED WHILE I WAS IN THE HOSPITAL: See below OTHER PROBLEMS/DIAGNOSIS: Principal Problem: Sepsis not present on admission due to left lower extremity cellulitis. Lower extremity edema Active Problems: Hypopotassemia (POA) VICTORINO (acute kidney injury) ([facility]) Leg ulcer, left, limited to breakdown of skin (HCC) At high risk for impaired skin integrity Resolved Problems: * No resolved hospital problems. * OPERATIONS PERFORMED WHILE IN THE HOSPITAL: None IMPORTANT TEST/PROCEDURES: X-ray tibia/fibula Lower extremity ultrasound Chest x-ray TEST RESULTS NOT AVAILABLE AT THIS TIME: The plan for following up on pending results below is you (more content not included)... [facility] CONSULTon 04-01-2023 CONSULT HNO ID: [id number] Author: Carmelita Myers APRN.CNP Service: Wound/Ostomy Author Type: Nurse Practitioner Type: Consults Filed: 04/01/2023 12:17 PM Note Text: WOUND CARE SERVICE CONSULT NOTE SERVICE DATE: 04/01/2023 SERVICE TIME: [address] Tu Greer for an opinion regarding left leg. My final recommendations will be communicated back to requesting provider by way of shared medical record. Subjective HISTORY OF PRESENT ILLNESS: Amber Koroma is a 82 year old female [...] treatment with wraps every Saturday in the [facility]. About 2 weeks ago she noticed LLE redness and pain and was treated at [facility] from 03/17-03/19/23 for LLE cellulitis. She [...] (Src) 98.2 (Oral) Resp 18 Ht 5' 0" (1.52m) Wt 193 lb 2 oz (87.6kg) SpO2 95% BMI 37.72 kg/(m2). O2 Therapy: Room Air General: Alert, no distress, cooperative Musculoskeletal: Requires some assistance with bed mobility Extremities: LLE edema, BLE chronic lymphedema changes, LLE DP pulse palpable Wound: (See photo in "get images") Left Lateral Lower Extremity: Multiple scattered weeping lesions. Medium amount yellow drainage. DATA Diagnostic tests reviewed for today's visit: Wound photo Most recent labs a (more content not included)... [facility] CONSULT PROGon 04-01-2023 CONSULT PROG HNO ID: [id number] Author: Tania Simeon RPh Service: Pharmacy Author Type: Pharmacist Type: Consult Progress Note Filed: 04/01/2023 10:29 AM Note Text: PHARMACY PROGRESS NOTE Patient Name: Amber Koroma Admission Date: 03/29/2023 Date of Consult: [...] Tania Simeon RPh DATE/TIME: 04/01/2023 10:27 AM [facility] CONSULT PROG HNO ID: [id number] Author: Willow Frank MD Service: Infectious Disease Author Type: Physician Type: Consult Progress Note Filed: 04/01/2023 10:07 AM Note Text: INFECTIOUS DISEASE PROGRESS NOTE Patient Name: Amber Koroma INTERVAL HISTORY: Wound is better. No [...] noted Wound care and edema management at [facility] [facility] eval. Leg elevation Follow blood cultures [...] -- Microbiology data: reviewed Imaging data: reviewed Willow Frank MD Pager: Date of service: 04/01/2023 Time of service: 10:04 AM This note is not final until Authenticated by responsible provider. Normal [facility] Comprehensive metabolic 2000 panelon 04-01-2023 Albumin [Mass/Vol] 2.3 g/dL Low 3.9-4.9 [facility] Comment on above: Order Comment: Speci dank Type: BLOOD SPECIMEN [facility] Address: [address] [address] Performed By: #### L [id number] #### [facility] CLIA [id number] [address] OF [facility] ALP [Catalytic activity/Vol] 66 U/L Normal 34-123 [facility] Comment on above: Order Comment: Kareni dank Type: BLOOD SPECIMEN [facility] Address: [address] [address] Performed By: #### L [id number] #### [facility] CLIA [id number] [address] ALT [Catalytic activity/Vol] U/L Low 7-38 [facility] Comment on above: Order Comment: Speci men Type: BLOOD SPECIMEN [facility] Address: [address] [address] Performed By: #### L [id number] #### [facility] CLIA [id number] [address] [place] [address] [place] Anion gap [Moles/Vol] 8 mmol/L Low 9-18 [facility] Comment on above: Order Comment: Speci men Type: BLOOD SPECIMEN [facility] Address: [address] [address] Performed By: #### L [id number] #### [facility] CLIA [id number] [address] [place] AST [Catalytic activity/Vol] 13 U/L Normal 13-35 [facility] Comment on above: Order Comment: Speci men Type: BLOOD SPECIMEN [facility] Address: [address] [address] Performed By: #### L [id number] #### [facility] CLIA [id number] [address] [place] Bilirubin [Mass/Vol] 0.2 mg/dL Normal 0.2-1.3 [facility] Comment on above: Order Comment: Speci men Type: BLOOD SPECIMEN [facility] Address: [address] [address] Performed By: #### L [id number] #### [facility] CLIA [id number] [address] Calcium [Mass/Vol] 8.6 mg/dL Normal 8.5-10.2 [facility] Comment on above: Order Comment: Speci men Type: BLOOD SPECIMEN [facility] Address: [address] [address] Performed By: #### L [id number] #### [facility] CLIA [id number] [address] [place] [facility] Chloride [Moles/Vol] 105 mmol/L Normal 97-105 [facility] Comment on above: Order Comment: Specveronica men Type: BLOOD SPECIMEN [facility] Address: [address] [place] [address] Performed By: #### L [id number] #### [facility] CLIA [id number] [address] CO2 [Moles/Vol] 27 mmol/L Normal 22-30 [facility] Comment on above: Order Comment: Speci men Type: BLOOD SPECIMEN [facility] Address: [address] [place] [address] Performed By: #### L [id number] #### [facility] CLIA [id number] [address] Creatinine [Mass/Vol] 0.95 mg/dL Normal 0.58-0.96 [facility] Comment on above: Order Comment: Speci men Type: BLOOD SPECIMEN [facility] Address: [address] [place] [address] Performed By: #### L [id number] #### [facility] CLIA [id number] [address] ESTIMATED GLOMERULAR FILTRATION RATE 59 mL/min/1.73m??? Low >=60 [facility] Comment on above: Order Comment: Jean men Type: BLOOD SPECIMEN [facility] Address: [address] [place] [address] Result Comment: Harika mated Glomerular Filtration Rate [...] reflect actual GFR. Performed By: #### L [id number] #### [facility] CLIA [id number] [address] [place] [address] [place] Glucose [Mass/Vol] 88 mg/dL Normal 74-99 [facility] Comment on above: Order Comment: Jean weems Type: BLOOD SPECIMEN [facility] Address: [address] [place] [address] Result Comment: The [place] [employer] (ADA) provides guidance for cutoff [...] Standards of Medical Care in Diabetes 2016, [place] [employer]. Diabetes Care. 2016.39(Suppl 1). Performed By: #### L [id number] #### [facility] CLIA [id number] [address] [place] [address] [place] Potassium [Moles/Vol] 4.5 mmol/L Normal 3.7-5.1 [facility] Comment on above: Order Comment: Jean weems Type: BLOOD SPECIMEN [facility] Address: [address] [place] [address] Performed By: #### L [id number] #### [facility] CLIA [id number] [address] [place] [address] [place] Protein [Mass/Vol] 5.7 g/dL Low 6.3-8.0 [facility] Comment on above: Order Comment: Jean weems Type: BLOOD SPECIMEN [facility] Address: [address] [place] [address] Performed By: #### L [id number] #### [facility] CLIA [id number] [address] [place] [address] [place] Sodium [Moles/Vol] 140 mmol/L Normal 136-144 [facility] Comment on above: Order Comment: Kareni men Type: BLOOD SPECIMEN [facility] Address: [address] [place] [address] Performed By: #### L [id number], 1987-12 #### [facility] CLIA [id number] [address] STATES OF [facility] Urea nitrogen [Mass/Vol] 9 mg/dL Normal 7-21 [facility] Comment on above: Order Comment: Speci men Type: BLOOD SPECIMEN [facility] Address: [address] [place] [address] Performed By: #### L [id number], 1987-12 #### [facility] CLIA [id number] [address] [place] Magnesium SerPl-mCncon 04-01 Magnesium [Mass/Vol] 1.8 mg/dL Normal 1.7-2.3 [facility] Comment on above: Order Comment: Speci men Type: BLOOD SPECIMEN [facility] Address: [address] [place] [address] Performed By: #### L [id number], 1987-12 #### [facility] CLIA [id number] [address] [place] THERAPY NTon 04-01-2023 THERAPY NT HNO ID: [id number] Author: Ros Moore PT Service: Physical Therapy Author Type: Physical Therapist Type: Therapy (PT/OT/Speech/Resp) Filed: 04/01/2023 11:56 AM Note Text: Physical Therapy Evaluation SERVICE DATE: 04/01/2023 SERVICE TIME: 0950 to 1118 ROOM: [place] [address] Recommended Discharge Disposition: Home PT Recommended Discharge [...] unwell. 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 friend does all driving. denies [...] (more content not included)... Normal [facility] CBC panel Auto (Bld)on 03-31 Erythrocyte distribution width (RBC) [Ratio] 14.1 % Normal 11.5-15.0 [facility] Comment on above: Order Comment: Speci men Type: BLOOD SPECIMEN [facility] Address: [address] [place] [address] Performed By: #### L [id number] #### [facility] CLIA [id number] [address] [place] [id number] [facility] Hematocrit (Bld) [Volume fraction] 27.2 % Low 36.0-46.0 [facility] Comment on above: Order Comment: Speci men Type: BLOOD SPECIMEN Ordering Facility: [facility] Address: [address] [place] [address] Performed By: #### L [id number] #### [facility] CLIA [id number] [address] [place] Hemoglobin (Bld) [Mass/Vol] 8.5 g/dL Low 11.5-15.5 [facility] Comment on above: Order Comment: Speci men Type: BLOOD SPECIMEN Ordering Facility: [facility] Address: [address] [place] [address] Performed By: #### L [id number] #### [facility] CLIA [id number] [address] OF [facility] MCH (RBC) [Entitic mass] 27.4 pg Normal 26.0-34.0 [facility] Comment on above: Order Comment: Speci men Type: BLOOD SPECIMEN Ordering Facility: [facility] Address: [address] [place] [address] Performed By: #### L [id number] #### [facility] CLIA [id number] [address] MCHC (RBC) [Mass/Vol] 31.3 g/dL Normal 30.5-36.0 [facility] Comment on above: Order Comment: Speci men Type: BLOOD SPECIMEN Ordering Facility: [facility] Address: [address] [place] [address] Performed By: #### L [id number] #### [facility] CLIA [id number] [address] MCV (RBC) [Entitic vol] 87.7 fL Normal 80.0-100.0 [facility] Comment on above: Order Comment: Speci men Type: BLOOD SPECIMEN Ordering Facility: [facility] Address: [address] [place] [address] Performed By: #### L [id number] #### [facility] CLIA [id number] [address] Nucleated RBC (Bld) [#/Vol] 10*3/uL Normal <0.01 [facility] Comment on above: Order Comment: Speci men Type: BLOOD SPECIMEN Ordering Facility: [facility] Address: [facility] [address] Performed By: #### L [id number], 1987-12 #### [facility] CLIA [id number] [address] [place] Platelet mean volume (Bld) [Entitic vol] 10.2 fL Normal 9.0-12.7 [facility] Comment on above: Order Comment: Speci men Type: BLOOD SPECIMEN Ordering Facility: [facility] Address: [address] [place] [address] Performed By: #### L [id number] #### [facility] CLIA [id number] [address] [place] Platelets (Bld) [#/Vol] 374 10*3/uL Normal 150-400 [facility] Comment on above: Order Comment: Speci men Type: BLOOD SPECIMEN Ordering Facility: [facility] Address: [address] [place] [address] Performed By: #### L [id number] #### [facility] CLIA [id number] [address] [place] [address] [place] RBC (Bld) [#/Vol] 3.10 10*6/uL Low 3.90-5.[address] [facility] Comment on above: Order Comment: Speci men Type: BLOOD SPECIMEN Ordering Facility: [facility] Address: [address] Performed By: #### L [id number], 1987-12 #### [facility] CLIA [id number] [address] [place] WBC (Bld) [#/Vol] 7.27 10*3/uL Normal 3.70-11.[address] [facility] Comment on above: Order Comment: Speci men Type: BLOOD SPECIMEN Ordering Facility: [facility] Address: [address] [place] [address] Performed By: #### L [id number] #### [facility] CLIA [id number] [address] [place] [address] [facility] [place] Comprehensive metabolic 2000 panelon 03-31-2023 Albumin [Mass/Vol] 2.4 g/dL Low 3.9-4.9 [facility] Comment on above: Order Comment: Speci men Type: BLOOD SPECIMEN Ordering Facility: [facility] Address: [address] [place] [address] Performed By: #### 4 091-5 #### [facility] CLIA [id number] [address] [place] [address] [facility] [place] ALP [Catalytic activity/Vol] 69 U/L Normal 34-123 [facility] Comment on above: Order Comment: Speci men Type: BLOOD SPECIMEN Ordering Facility: [facility] Address: [address] [place] [address] Performed By: #### 4 091-5 #### [facility] CLIA [id number] [address] ALT [Catalytic activity/Vol] 7 U/L Normal 7-38 [facility] Comment on above: Order Comment: Speci men Type: BLOOD SPECIMEN Ordering Facility: [facility] Address: [address] [place] [address] Performed By: #### 4 091-5 #### [facility] CLIA [id number] [address] Anion gap [Moles/Vol] 9 mmol/L Normal 9-18 [facility] Comment on above: Order Comment: Speci men Type: BLOOD SPECIMEN Ordering Facility: [facility] Address: [address] [place] [address] Performed By: #### 4 091-5 #### [facility] CLIA [id number] [address] AST [Catalytic activity/Vol] 13 U/L Normal 13-35 [facility] Comment on above: Order Comment: Speci men Type: BLOOD SPECIMEN Ordering Facility: [facility] Address: [address] [place] [address] Performed By: #### 4 091-5 #### [facility] CLIA [id number] [address] [place] [address] [place] Bilirubin [Mass/Vol] 0.2 mg/dL Normal 0.2-1.3 [facility] Comment on above: Order Comment: Speci men Type: BLOOD SPECIMEN Ordering Facility: [facility] Address: [address] [place] [address] Performed By: #### 4 091-5 #### [facility] CLIA [id number] [address] [place] [address] [place] Calcium [Mass/Vol] 8.4 mg/dL Low 8.5-10.2 [facility] Comment on above: Order Comment: Speci men Type: BLOOD SPECIMEN Ordering Facility: [facility] Address: [address] [place] [address] Performed By: #### 4 091-5 #### [facility] CLIA [id number] [address] [place] Chloride [Moles/Vol] 104 mmol/L Normal 97-105 [facility] Comment on above: Order Comment: Speci men Type: BLOOD SPECIMEN Ordering Facility: [facility] Address: [address] [place] [address] Performed By: #### 4 091-5 #### [facility] CLIA [id number] [address] [place] [address] [place] CO2 [Moles/Vol] 29 mmol/L Normal 22-30 [facility] Comment on above: Order Comment: Speci men Type: BLOOD SPECIMEN Ordering Facility: [facility] Address: [address] [place] [address] Performed By: #### 4 091-5 #### [facility] CLIA [id number] [address] [place] [address] [place] Creatinine [Mass/Vol] 0.99 mg/dL High 0.58-0.96 [facility] Comment on above: Order Comment: Speci men Type: BLOOD SPECIMEN Ordering Facility: [facility] Address: [address] [place] [address] Performed By: #### 4 091-5 #### [facility] CLIA [id number] [address] [place] [address] [place] ESTIMATED GLOMERULAR FILTRATION RATE 56 mL/min/1.73m??? Low >=60 [facility] Comment on above: Order Comment: Jean weems Type: BLOOD SPECIMEN Ordering Facility: [facility] Address: [address] [place] [address] Result Comment: Harika mated Glomerular Filtration Rate [...] GFR. Performed By: #### 4 091-5 #### [facility] CLIA [id number] [address] [place] [address] [place] Glucose [Mass/Vol] 114 mg/dL High 74-99 [facility] Comment on above: Order Comment: Jean weems Type: BLOOD SPECIMEN Ordering Facility: [facility] Address: [address] [place] [address] Result Comment: The [place] Diabetes Association (ADA) provides guidance for cutoff [...] Standards of Medical Care in Diabetes 2016, [place] [employer]. Diabetes Care. 2016.39(Suppl 1). Performed By: #### 4 091-5 #### [facility] CLIA [id number] [address] [place] [address] [place] Potassium [Moles/Vol] 3.3 mmol/L Low 3.7-5.1 [facility] Comment on above: Order Comment: Jean weems Type: BLOOD SPECIMEN Ordering Facility: [facility] Address: [address] Performed By: #### 4 091-5 #### [facility] CLIA [id number] [address] [place] Protein [Mass/Vol] 5.8 g/dL Low 6.3-8.0 [facility] Comment on above: Order Comment: Speci men Type: BLOOD SPECIMEN Ordering Facility: [facility] Address: [address] [place] [address] Performed By: #### 4 091-5 #### [facility] CLIA [id number] [address] Sodium [Moles/Vol] 142 mmol/L Normal 136-144 [facility] Comment on above: Order Comment: Speci men Type: BLOOD SPECIMEN Ordering Facility: [facility] Address: [address] [place] [address] Performed By: #### 4 091-5 #### [facility] CLIA [id number] [address] Urea nitrogen [Mass/Vol] 12 mg/dL Normal 7-21 [facility] Comment on above: Order Comment: Speci men Type: BLOOD SPECIMEN Ordering Facility: [facility] Address: [address] [place] [address] Performed By: #### 4 091-5 #### [facility] CLIA [id number] [address] Magnesium SerPl-mCncon 03-31 Magnesium [Mass/Vol] 1.8 mg/dL Normal 1.7-2.3 [facility] Comment on above: Order Comment: Speci men Type: BLOOD SPECIMEN Ordering Facility: [facility] Address: [address] [place] [address] Performed By: #### 4 091-5 #### [facility] CLIA [id number] [address] [place] ALLIED HEALTHon 03-30-2023 ALLIED HEALTH HNO ID: [id number] Author: Anjali Pruett RT(Danitza) Service: ? Author Type: Technologist Type: Allied Health Filed: 03/30/2023 9:04 AM Note Text: Radiology Service Progress Note PATIENT NAME: Amber Koroma DATE OF SERVICE: March 30, 2023 [...] IV DATA: Not applicable SIGNED BY: RT Waldo(R) March 30, 2023 9:04 AM [facility] Bacteria Bld Culton 03-30-20 23 Bacteria identified Cx Nom (Bld) CULTURE, BLOOD: No growth 5 days [facility] Comment on above: Performed By: #### 6 00-7 ####[facility] [id number] [address] Bacteria identified Cx Nom (Bld) CULTURE, BLOOD: No growth 5 days [facility] Comment on above: Performed By: #### 6 00-7 ####[facility] [id number] [address] [place] Bacteria Wnd Culton 03-30-20 23 Bacteria identified Cx Nom (Wound) ORGANISM ID: 1 Many Pseudomonas aeruginosa ORGANISM ID: 3 Few skin joselo GRAM STAIN: Moderate Gram negative bacilli Rare Gram positive cocci No Polymorphonuclear Leukocytes ORGANISM ID: 1 (PSEUDOMONAS AERUGINOSA) --------- ANTIBIOTIC INTERPRETATION MELA STATUS REFERENCE RANGE --------- Cefepime S 2 F Susceptible <=8 , [...] >.5 , Resistant >1 Abnormal [facility] Comment on above: Performed By: #### 6 462-6 ####[facility] [id number] [address] [place] CASE MGT INIT ASSES 2022 CASE MGT INIT ASS HNO ID: [id number] Author: Valery Roth RN Service: ? Author Type: Registered Nurse Type: Care Mgt Initial Assessment Filed: 03/30/2023 9:22 AM Note Text: CARE MANAGEMENT: ASSESSMENT AND DISCHARGE PLAN SERVICE DATE: March 30, 2023 SERVICE TIME: 9:16 AM hop farm worker spoke with patient at bedside to complete Care Management Assessment. Introduction made and role of Care Management explained. PCP: Tyler Benitez MD - Patient confirmed Primary Contact: Primary Emergency Contact: Patrizia John Address: [address] [place] [address] [place] Relation: Caregiver Secondary Emergency Contact: Anson Baxter Relation: Nephew Admission Status: Inpatient Insurance Provider: [...] Support: Other: See Comment Caregiver: Patrizia John [phone] - Patient states she was staying at Patrizia's home for 2 weeks prior to admission due to concrete work being done near her home. How do you manage to accomplish the following: Independent: Bathe/Shower;Dress;Medicati on Management Needs Assistance: Meals/Meal Prep;Ambulation (Patient uses a quad cane for mobility. Patient states family members own a restuarant near her and she has food delivered to home.) Dependent: Transportation to appointments/community (Patient states she does not drive) Current Services/Equipment Current Post-Acute Service(s): None DME: Quad Cane. Walker. Wheelchair. Shower Chair. Shower Grab Bar. Discharge Planning Patient Goal(s): Be able to go home [place] Explained: [place] Given: No (Discharge Needs: To [...] Bars at home. Discharge Pharmacy - [facility] confirmed by patient. Discharge Transportation: Anson Or Amy Baxter. dept to follow. SIGNATURE: Valery Roth RN PATIENT NAME: Amber Koroma DATE: March 30, 2023 TIME: 9:16 AM CONTACT #: [phone] Normal [facility] CBC panel Auto (Bld)on 03-30 Erythrocyte distribution width (RBC) [Ratio] 14.0 % Normal 11.5-15.0 [facility] Comment on above: Order Comment: Speci men Type: BLOOD SPECIMEN Ordering Facility: [facility] Address: [address] [place] [address] Performed By: #### 4 091-5 #### [facility] CLIA [id number] [address] OF [facility] Hematocrit (Bld) [Volume fraction] 25.1 % Low 36.0-46.0 [facility] Comment on above: Order Comment: Speci men Type: BLOOD SPECIMEN Ordering Facility: [facility] Address: [address] [place] [address] Performed By: #### 4 091-5 #### [facility] CLIA [id number] [address] OF [facility] Hemoglobin (Bld) [Mass/Vol] 8.0 g/dL Low 11.5-15.5 [facility] Comment on above: Order Comment: Speci men Type: BLOOD SPECIMEN Ordering Facility: [facility] Address: [address] [place] [address] Performed By: #### 4 091-5 #### [facility] CLIA [id number] [address] MCH (RBC) [Entitic mass] 27.7 pg Normal 26.0-34.0 [facility] Comment on above: Order Comment: Speci men Type: BLOOD SPECIMEN Ordering Facility: [facility] Address: [address] [place] [address] Performed By: #### 4 091-5 #### [facility] CLIA [id number] [address] MCHC (RBC) [Mass/Vol] 31.9 g/dL Normal 30.5-36.0 [facility] Comment on above: Order Comment: Speci men Type: BLOOD SPECIMEN Ordering Facility: [facility] Address: [address] [place] [address] Performed By: #### 4 091-5 #### [facility] CLIA [id number] [address] MCV (RBC) [Entitic vol] 86.9 fL Normal 80.0-100.0 [facility] Comment on above: Order Comment: Speci men Type: BLOOD SPECIMEN Ordering Facility: [facility] Address: [address] [place] [address] Performed By: #### 4 091-5 #### [facility] CLIA [id number] [address] [place] [address] [place] Nucleated RBC (Bld) [#/Vol] 10*3/uL Normal <0.01 [facility] Comment on above: Order Comment: Speci men Type: BLOOD SPECIMEN Ordering Facility: [facility] Address: [address] [place] [address] Performed By: #### 4 091-5 #### [facility] CLIA [id number] [address] [place] [address] [place] Platelet mean volume (Bld) [Entitic vol] 10.3 fL Normal 9.0-12.7 [facility] Comment on above: Order Comment: Speci men Type: BLOOD SPECIMEN Ordering Facility: [facility] Address: [address] Performed By: #### 4 091-5 #### [facility] CLIA [id number] [address] [place] [address] [place] Platelets (Bld) [#/Vol] 338 10*3/uL Normal 150-400 [facility] Comment on above: Order Comment: Speci men Type: BLOOD SPECIMEN Ordering Facility: [facility] Address: [address] Performed By: #### 4 091-5 #### [facility] CLIA [id number] [address] [place] [address] [place] RBC (Bld) [#/Vol] 2.89 10*6/uL Low 3.90-5.[address] [facility] Comment on above: Order Comment: Speci men Type: BLOOD SPECIMEN Ordering Facility: [facility] Address: [address] [place] [address] Performed By: #### 4 091-5 #### [facility] CLIA [id number] [address] [place] [id number] [place] WBC (Bld) [#/Vol] 6.96 10*3/uL Normal 3.70-11.[address] [facility] Comment on above: Order Comment: Speci men Type: BLOOD SPECIMEN Ordering Facility: [facility] Address: [place] [address] Performed By: #### 4 091-5 #### [facility] CLIA [id number] [address] [place] [address] [facility] [place] CONSULTon 03-30-2023 CONSULT HNO ID: [id number] Author: Jamaal Holman APRN.PLASTER MECHANIC Service: Infectious Disease Author Type: Nurse Practitioner [...] note or shared electronic medical record. HPI: Amber Koroma who is a 82 year old female with PMHx listed below significant for chronic lymphedema and HTN, presented to ED on 03/30/23 with complaints of worsening swelling, pain, and redness on her LLE. Patient reportedly seen at [facility] on 03/17 with left leg cellulitis [...] c/d/i DATA: Diagnostic (more content not included)... [facility] CONSULT PROGon 03-30-2023 CONSULT PROG HNO ID: [id number] Author: Gayle Whitley RPh Service: Pharmacy Author Type: Pharmacist Type: Consult Progress Note Filed: 03/30/2023 5:01 PM Note Text: PHARMACY PROGRESS NOTE Patient Name: Amber Koroma Admission Date: 03/29/2023 Date of Consult: [...] Gayle Whitley RPh DATE/TIME: 03/30/2023 5:00 PM [facility] CONSULT PROG HNO ID: [id number] Author: Gayle Whitley RPh Service: Pharmacy Author Type: Pharmacist Type: Consult Progress Note Filed: 03/30/2023 4:54 PM Note Text: PHARMACY VANCOMYCIN DOSING NOTE Patient Name: Amber Koroma Admission Date: 03/29/2023 Date of Consult: 03/30/2023 Time of Consult: 4:54 PM 1. Vancomycin therapy has been discontinued. Vancomycin level(s) have been discontinued: Yes. Pharmacy vancomycin dosing service will sign off. Thank you for allowing us to participate in this patient's care. Please contact pharmacy if there are questions. Gayle Whitley [facility] Comprehensive metabolic 2000 panelon 03-30-2023 Albumin [Mass/Vol] 2.2 g/dL Low 3.9-4.9 [facility] Comment on above: Order Comment: Specveronica weems Type: BLOOD SPECIMEN Ordering Facility: [facility] Address: [address] [place] [address] Performed By: #### L [id number] #### [facility] CLIA [id number] [address] ALP [Catalytic activity/Vol] 64 U/L Normal 34-123 [facility] Comment on above: Order Comment: Jean weems Type: BLOOD SPECIMEN Ordering Facility: [facility] Address: [address] [place] [address] Performed By: #### L [id number] #### [facility] CLIA [id number] [address] [place] ALT [Catalytic activity/Vol] 7 U/L Normal 7-38 [facility] Comment on above: Order Comment: Jean weems Type: BLOOD SPECIMEN Ordering Facility: [facility] Address: [address] [place] [address] Performed By: #### L [id number] #### [facility] CLIA [id number] [address] [place] [address] [place] Anion gap [Moles/Vol] 8 mmol/L Low 9-18 [facility] Comment on above: Order Comment: Speci men Type: BLOOD SPECIMEN Ordering Facility: [facility] Address: [address] [place] [address] Performed By: #### L [id number], 1987-12 #### [facility] CLIA [id number] [address] [place] [address] [place] AST [Catalytic activity/Vol] 12 U/L Low 13-35 [facility] Comment on above: Order Comment: Speci men Type: BLOOD SPECIMEN Ordering Facility: [facility] Address: [address] [place] [address] Performed By: #### L [id number] #### [facility] CLIA [id number] [address] [place] [address] [place] Bilirubin [Mass/Vol] 0.3 mg/dL Normal 0.2-1.3 [facility] Comment on above: Order Comment: Speci men Type: BLOOD SPECIMEN Ordering Facility: [facility] Address: [address] [place] [address] Performed By: #### L [id number] #### [facility] CLIA [id number] [address] [place] [address] [place] Calcium [Mass/Vol] 8.2 mg/dL Low 8.5-10.2 [facility] Comment on above: Order Comment: Speci men Type: BLOOD SPECIMEN Ordering Facility: [facility] Address: [address] [place] [address] Performed By: #### L [id number] #### [facility] CLIA [id number] [address] [place] [address] [place] Chloride [Moles/Vol] 103 mmol/L Normal 97-105 [facility] Comment on above: Order Comment: Speci men Type: BLOOD SPECIMEN Ordering Facility: [facility] Address: [address] [place] [address] Performed By: #### L [id number] #### [facility] CLIA [id number] [address] [place] [address] [place] CO2 [Moles/Vol] 30 mmol/L Normal 22-30 [facility] Comment on above: Order Comment: Jean weems Type: BLOOD SPECIMEN Ordering Facility: [facility] Address: [address] [place] [address] Performed By: #### L [id number] #### [facility] CLIA [id number] [address] [place] [facility] Creatinine [Mass/Vol] 1.14 mg/dL High 0.58-0.96 [facility] Comment on above: Order Comment: Jean weems Type: BLOOD SPECIMEN Ordering Facility: [facility] Address: [address] [place] [address] Performed By: #### L [id number] #### [facility] CLIA [id number] [address] ESTIMATED GLOMERULAR FILTRATION RATE 48 mL/min/1.73m??? Low >=60 [facility] Comment on above: Order Comment: Jean weems Type: BLOOD SPECIMEN Ordering Facility: [facility] Address: [address] [place] [address] Result Comment: Harika mated Glomerular Filtration Rate [...] reflect actual GFR. Performed By: #### L [id number] #### [facility] CLIA [id number] [address] Glucose [Mass/Vol] 87 mg/dL Normal 74-99 [facility] Comment on above: Order Comment: Jean dank Type: BLOOD SPECIMEN Ordering Facility: [facility] Address: [address] [place] [address] Result Comment: The [place] Diabetes [employer] (ADA) provides guidance for cutoff [...] Standards of Medical Care in Diabetes 2016, [employer] [place]. Diabetes Care. 2016.39(Suppl 1). Performed By: #### L [id number] #### [facility] CLIA [id number] [address] Potassium [Moles/Vol] 3.3 mmol/L Low 3.7-5.1 [facility] Comment on above: Order Comment: Jean weems Type: BLOOD SPECIMEN Ordering Facility: [facility] Address: [address] [place] [address] Performed By: #### L [id number] #### [facility] CLIA [id number] 1000 [place] [address] [place] Protein [Mass/Vol] 5.5 g/dL Low 6.3-8.0 [facility] Comment on above: Order Comment: Jean weems Type: BLOOD SPECIMEN Ordering Facility: [facility] Address: [address] [place] [address] Performed By: #### L [id number] #### [facility] CLIA [id number] [address] Sodium [Moles/Vol] 141 mmol/L Normal 136-144 [facility] Comment on above: Order Comment: Jean weems Type: BLOOD SPECIMEN Ordering Facility: [facility] Address: [address] [place] [address] Performed By: #### L [id number] #### [facility] CLIA [id number] [address] [place] Urea nitrogen [Mass/Vol] 14 mg/dL Normal 7-21 [facility] Comment on above: Order Comment: Jean weems Type: BLOOD SPECIMEN Ordering Facility: [facility] Address: [address] [place] [address] Performed By: #### L [id number], 1987-12 #### [facility] CLIA [id number] [address] [place] [id number] [place] Creatinine Unsp time (U) [Ma ss/Vol]on 03-30-2023 Creatinine (U) [Mass/Vol] 89.0 mg/dL Normal 20.0-300.0 [facility] Comment on above: Order Comment: Speci men Type: BLOOD SPECIMEN Ordering Facility: [facility] Address: [address] [place] [address] Performed By: #### 4 091-5 #### [facility] CLIA [id number] [address] OF [place] ESR Westergren method (Bld) [Velocity]on 03-30-2023 ESR (Bld) [Velocity] 98 mm/h High 0-20 [facility] Comment on above: Order Comment: Speci men Type: BLOOD SPECIMENOrdering Facility: [facility] Address: [address] [place] [address] Performed By: #### 4 537-7 ####[facility] [id number] [address] [place] HISTORY PHYSICALon HISTORY PHYSICAL HNO ID: [id number] Author: Tu Greer DO Service: Hospital Medicine Author Type: Physician Type: HANDP Filed: 03/30/2023 3:15 AM Note Text: DEPARTMENT OF HOSPITAL MEDICINE HISTORY AND PHYSICAL EXAM SERVICE DATE: 03/30/2023 SERVICE TIME: 2:45 AM Primary Care Physician: Tyler Benitez MD NIGHT COVERAGE: Please page [facility] [place] [phone] for any issues or concerns Subjective CHIEF [...] painful and red. She was seen at [facility] and treated with antibiotics and discharged on [...] (more content not included)... Normal [facility] Magnesium SerPl-mCncon 03-30 Magnesium [Mass/Vol] 2.0 mg/dL Normal 1.7-2.3 [facility] Comment on above: Order Comment: Speci men Type: BLOOD SPECIMEN Ordering Facility: [facility] Address: [address] [place] [id number] Performed By: #### L [id number], 1987-12 #### [facility] CLIA [id number] [address] [place] [address] [place] UREA NITROGEN RND URon 03-30 Urea nitrogen [Mass/Vol] 476 mg/dL Normal 140-1500 [facility] Comment on above: Order Comment: Speci men Type: BLOOD SPECIMEN Ordering Facility: [facility] Address: [facility] [place] [address] Performed By: #### 4 091-5 #### [facility] CLIA [id number] [address] [place] [address] [place] US DVT LOWER LTon 03-30-2023 US DVT LOWER LT * * *Final Report* * * DATE OF EXAM: Mar 30 2023 9:09AM MDU 1006 - US DVT LOWER LT / [...] imaged segments of the left lower extremity. [employer] Sales Representative: ANGEL Transcribe Date/Time: Aug 5 2023 9:32A Dictated by : SHAYNA DALE MD This examination was interpreted and the report reviewed and electronically signed by: SHAYNA DALE MD on Mar 30 2023 9:34AM EST [id number] [facility] Vancomycin Barney SerPl-mCncon 03-30-2023 Vancomycin random [Mass/Vol] 19.4 ug/mL Normal 10.0-20.0 [facility] Comment on above: Order Comment: Speci men Type: BLOOD SPECIMEN Ordering Facility: [facility] Address: [facility] [place] [address] Result Comment: Refe rence ranges and high/low indicator flags are provided as general guidelines only. The treating physician must determine appropriate target levels/dosing based on the specific clinical situation. Performed By: #### 4 091-5 #### [facility] CLIA [id number] [address] [place] [address] [facility] ALLIED HEALTHon 03-29-2023 ALLIED HEALTH HNO ID: [id number] Author: Amy Wall RT(R) Service: Radiology Author Type: Greenhouse Florist Type: Allied Health Filed: 03/29/2023 6:56 PM Note Text: Radiology Service Progress Note PATIENT NAME: Amber Koroma DATE OF SERVICE: March 29, 2023 [...] PERIPHERAL IV DATA: Not applicable SIGNED BY: WEST MirandaR) March 29, 2023 6:56 PM [facility] HEALTH HNO ID: [id number] Author: Wyand, Amy K, RT(R) Service: Radiology Author Type: Greenhouse Florist Type: Allied Health Filed: 03/29/2023 6:02 PM Note Text: @9014 this tech spoke to nurse about chest x ray images, a chest 2 v vs a 1 v and which would the doctor prefer, nurse will talk to doctor and get back to x ray on this matter. Normal [facility] Bacteria Bld Culton 03-29-20 Bacteria identified Cx Nom (Bld) CULTURE, BLOOD: No growth 6 days Normal [facility] Comment on above: Performed By: #### 6 00-7 ####[facility]IA [id number] [address] Bacteria identified Cx Nom (Bld) CULTURE, BLOOD: No growth 5 days Normal [facility] Comment on above: Performed By: #### 6 -7 ####[facility] [id number] [address] CBC W Auto Differential pane l (Bld)on 03-29-2023 Basophils (Bld) [#/Vol] 0.03 10*3/uL Normal <0.11 [facility] Comment on above: Order Comment: Speci men Type: BLOOD SPECIMEN Ordering Facility: [facility] Address: [address] [place] [address] Performed By: #### L [id number] #### [facility] CLIA [id number] [address] Basophils/100 WBC (Bld) 0.3 % Normal [facility] Comment on above: Order Comment: Speci men Type: BLOOD SPECIMEN Ordering Facility: [facility] Address: [address] [place] [address] Performed By: #### L [id number] #### [facility] CLIA [id number] [address] [place] Differential cell count method Nom (Bld) Auto [facility] Comment on above: Order Comment: Speci men Type: BLOOD SPECIMEN Ordering Facility: [facility] Address: [address] [place] [address] Performed By: #### L [id number] #### [facility] CLIA [id number] 1000 [place] [address] [place] Eosinophils (Bld) [#/Vol] 0.08 10*3/uL Normal <0.46 [facility] Comment on above: Order Comment: Speci men Type: BLOOD SPECIMEN Ordering Facility: [facility] Address: [address] [place] [address] Performed By: #### L [id number] #### [facility] CLIA [id number] [address] [place] Eosinophils/100 WBC (Bld) 0.9 % Normal [facility] Comment on above: Order Comment: Speci men Type: BLOOD SPECIMEN Ordering Facility: [facility] Address: [address] [place] [address] Performed By: #### L [id number] #### [facility] CLIA [id number] [address] [place] Erythrocyte distribution width (RBC) [Ratio] 14.0 % Normal 11.5-15.0 [facility] Comment on above: Order Comment: Speci men Type: BLOOD SPECIMEN Ordering Facility: [facility] Address: [address] [place] [address] Performed By: #### L [id number] #### [facility] CLIA [id number] [address] [place] Hematocrit (Bld) [Volume fraction] 29.7 % Low 36.0-46.0 [facility] Comment on above: Order Comment: Speci men Type: BLOOD SPECIMEN Ordering Facility: [facility] Address: [address] [place] [address] Performed By: #### L [id number] #### [facility] CLIA [id number] [address] [place] Hemoglobin (Bld) [Mass/Vol] 9.3 g/dL Low 11.5-15.5 [facility] Comment on above: Order Comment: Speci men Type: BLOOD SPECIMEN Ordering Facility: [facility] Address: [address] [place] [address] Performed By: #### L [id number] #### [facility] CLIA [id number] [address] Immature granulocytes (Bld) [#/Vol] 0.05 10*3/uL Normal <0.10 [facility] Comment on above: Order Comment: Speci men Type: BLOOD SPECIMEN Ordering Facility: [facility] Address: [address] [place] [address] Performed By: #### L [id number] #### [facility] CLIA [id number] [address] Immature granulocytes/100 WBC (Bld) 0.6 % Normal [facility] Comment on above: Order Comment: Speci men Type: BLOOD SPECIMEN Ordering Facility: [facility] Address: [address] [place] [address] Performed By: #### L [id number] #### [facility] CLIA [id number] [address] Lymphocytes (Bld) [#/Vol] 0.82 10*3/uL Low 1.00-4.00 [facility] Comment on above: Order Comment: Speci men Type: BLOOD SPECIMEN Ordering Facility: [facility] Address: [address] [place] [address] Performed By: #### L [id number] #### [facility] CLIA [id number] [address] Lymphocytes/100 WBC (Bld) 9.0 % Normal [facility] Comment on above: Order Comment: Speci men Type: BLOOD SPECIMEN Ordering Facility: [facility] Address: [address] [place] [address] Performed By: #### L [id number] #### [facility] CLIA [id number] [address] OF [facility] MCH (RBC) [Entitic mass] 27.9 pg Normal 26.0-34.0 [facility] Comment on above: Order Comment: Speci men Type: BLOOD SPECIMEN Ordering Facility: [facility] Address: [address] [place] [address] Performed By: #### L [id number] #### [facility] CLIA [id number] [address] MCHC (RBC) [Mass/Vol] 31.3 g/dL Normal 30.5-36.0 [facility] Comment on above: Order Comment: Speci men Type: BLOOD SPECIMEN Ordering Facility: [facility] Address: [address] [place] [address] Performed By: #### L [id number] #### [facility] CLIA [id number] [address] MCV (RBC) [Entitic vol] 89.2 fL Normal 80.0-100.0 [facility] Comment on above: Order Comment: Speci men Type: BLOOD SPECIMEN Ordering Facility: [facility] Address: [address] [place], [place] [address] Performed By: #### L [id number] #### [facility] CLIA [id number] [address] Monocytes (Bld) [#/Vol] 0.75 10*3/uL Normal <0.87 [facility] Comment on above: Order Comment: Speci men Type: BLOOD SPECIMEN Ordering Facility: [facility] Address: [address] Performed By: #### L [id number] #### [facility] CLIA [id number] [address] Monocytes/100 WBC (Bld) 8.3 % Normal [facility] Comment on above: Order Comment: Speci men Type: BLOOD SPECIMEN Ordering Facility: [facility] Address: [address] [place] [address] Performed By: #### L [id number] #### [facility] CLIA [id number] [address] OF [place] Neutrophils (Bld) [#/Vol] 7.34 10*3/uL Normal 1.45-7.50 [facility] Comment on above: Order Comment: Speci men Type: BLOOD SPECIMEN Ordering Facility: [facility] Address: [address] [place] [address] Performed By: #### L [id number], 1987-12 #### [facility] CLIA [id number] [address] [place] Neutrophils/100 WBC (Bld) 80.9 % Normal [facility] Comment on above: Order Comment: Speci men Type: BLOOD SPECIMEN Ordering Facility: [facility] Address: [address] [place] [address] Performed By: #### L [id number] #### [facility] CLIA [id number] [address] [place] Nucleated RBC (Bld) [#/Vol] 10*3/uL Normal <0.01 [facility] Comment on above: Order Comment: Speci men Type: BLOOD SPECIMEN Ordering Facility: [facility] Address: [address] [place] [address] Performed By: #### L [id number] #### [facility] CLIA [id number] [address] Nucleated RBC/100 WBC (Bld) [Ratio] 0.0 /100 WBC Normal [facility] Comment on above: Order Comment: Speci men Type: BLOOD SPECIMEN Ordering Facility: [facility] Address: [address] [place] [address] Performed By: #### L [id number] #### [facility] CLIA [id number] [address] Platelet mean volume (Bld) [Entitic vol] 10.6 fL Normal 9.0-12.7 [facility] Comment on above: Order Comment: Speci men Type: BLOOD SPECIMEN Ordering Facility: [facility] Address: [address] [place] [address] Performed By: #### L [id number] #### [facility] CLIA [id number] [address] OF [place] Platelets (Bld) [#/Vol] 396 10*3/uL Normal 150-400 [facility] Comment on above: Order Comment: Speci men Type: BLOOD SPECIMEN Ordering Facility: [facility] Address: [address] [place] [address] Performed By: #### L [id number], 1987-12 #### [facility] CLIA [id number] [address] [place] [address] [place] RBC (Bld) [#/Vol] 3.33 10*6/uL Low 3.90-5.[address] [facility] Comment on above: Order Comment: Speci men Type: BLOOD SPECIMEN Ordering Facility: [facility] Address: [address] [place] [address] Performed By: #### L [id number] #### [facility] CLIA [id number] [address] [place] [address] OF [facility] WBC (Bld) [#/Vol] 9.07 10*3/uL Normal 3.70-11.[address] [facility] Comment on above: Order Comment: Speci men Type: BLOOD SPECIMEN Ordering Facility: [facility] Address: [address] [place] [address] Performed By: #### L [id number] #### [facility] CLIA [id number] [address] [place] [address] OF [place] CK SerPl-cCncon 03-29-2023 CK [Catalytic activity/Vol] 40 U/L Low 42-196 [facility] Comment on above: Order Comment: Speci men Type: BLOOD SPECIMENOrdering Facility: [facility] Address: [address] [place] [address] Performed By: #### 3 3762-6, 2157-6, [id number], 86228-2 ####[facility] [id number] [place] [address] OF [facility] CONSULT PROGon 03-29-2023 CONSULT PROG HNO ID: [id number] Author: Dino Xavier RPh Service: Pharmacy Author Type: Pharmacist Type: Consult Progress Note Filed: 03/29/2023 7:51 PM Note Text: PHARMACY VANCOMYCIN DOSING NOTE Patient Name: Amber Koroma Admission Date: 03/29/2023 Date of Consult: 03/29/2023 Time of Consult: 7:49 PM Indication: Source unknown; empiric Goal Range: 15-20 mcg/mL RECOMMENDATIONS/PLAN: Pharmacy consulted for vancomycin dosing for Amber Koroma, a 82 year old female. 1. [...] have any questions, please contact pharmacy at [phone]. Age: [age] year old Allergies: ALLERGIES Allergen [...] Readings: Date: Ht: 02/02/2020 151.1 cm (4' 11.5") CrCl: 41 mL/min Temp (24hrs), Av.1 ?C [...] thou/cmm Vancomycin Levels: No results found for: MARIJABEVERLY Dino Xavier, [facility] Normal [facility] CRP SerPl-mCncon 03-29-2023 CRP [Mass/Vol] 9.0 mg/dL High <0.9 [facility] Comment on above: Order Comment: Speci men Type: BLOOD SPECIMEN Ordering Facility: [facility] Address: [address] [place] [address] Performed By: #### L [id number], 1987-12 #### [facility] CLIA [id number] [address] STATES OF [facility] Comprehensive metabolic 2000 panelon 03-29-2023 Albumin [Mass/Vol] 2.6 g/dL Low 3.9-4.9 [facility] Comment on above: Order Comment: Speci men Type: BLOOD SPECIMENOrdering Facility: [facility] Address: [address] [place] [address] Performed By: #### 3 3762-6, 6, [id number], 81794-6 ####[facility] [id number] [address] STATES OF [facility] ALP [Catalytic activity/Vol] 82 U/L Normal 34-123 [facility] Comment on above: Order Comment: Speci men Type: BLOOD SPECIMENOrdering Facility: [facility] Address: [address] [address] Performed By: #### 3 3762-6, 2157-01, [id number], 69381-0 ####[facility] [id number] [address] ALT [Catalytic activity/Vol] 9 U/L Normal 7-38 [facility] Comment on above: Order Comment: Speci men Type: BLOOD SPECIMENOrdering Facility: [facility] Address: [address] [place] [address] Performed By: #### 3 3762-6, 6, [id number], 11270-5 ####[facility] [id number] [address] STATES [facility] Anion gap [Moles/Vol] 10 mmol/L Normal 9-18 [facility] Comment on above: Order Comment: Speci men Type: BLOOD SPECIMENOrdering Facility: [facility] Address: [address] [place] [address] Performed By: #### 3 3762-6, 6, [id number], 05390-4 ####[facility] [id number] [place] [address] [place] AST [Catalytic activity/Vol] 17 U/L Normal 13-35 [facility] Comment on above: Order Comment: Speci men Type: BLOOD SPECIMENOrdering Facility: [facility] Address: [address] [place] [address] Performed By: #### 3 3762-6, 2157-01, [id number], 94333-4 ####[facility] [id number] [address] STATES [place] Bilirubin [Mass/Vol] 0.3 mg/dL Normal 0.2-1.3 [facility] Comment on above: Order Comment: Speci men Type: BLOOD SPECIMENOrdering Facility: [facility] Address: [address] [place] [address] Performed By: #### 3 3762-6, 2157-01, [id number], 50694-0 ####[facility] [id number] [address] STATES OF [facility] Calcium [Mass/Vol] 8.8 mg/dL Normal 8.5-10.2 [facility] Comment on above: Order Comment: Speci men Type: BLOOD SPECIMENOrdering Facility: [facility] Address: [address] [place] [address] Performed By: #### 3 3762-6, 6, [id number], 90114-7 ####[facility] [id number] [place] [address] [place] [facility] Chloride [Moles/Vol] 102 mmol/L Normal 97-105 [facility] Comment on above: Order Comment: Jean weems Type: BLOOD SPECIMENOrdering Facility: [facility] Address: [address] [place] [address] Performed By: #### 3 3762-6, 2157-6, [id number], 66216-5 ####[facility] [id number] [address] CO2 [Moles/Vol] 30 mmol/L Normal 22-30 [facility] Comment on above: Order Comment: Speci men Type: BLOOD SPECIMENOrdering Facility: [facility] Address: [address] [place] [address] Performed By: #### 3 3762-6, 2157-6, [id number], 09664-9 ####[facility] [id number] [place] [address] [place] Creatinine [Mass/Vol] 1.37 mg/dL High 0.58-0.96 [facility] Comment on above: Order Comment: Speci men Type: BLOOD SPECIMENOrdering Facility: [facility] Address: [address] [place] [address] Performed By: #### 3 3762-6, 21576, [id number], 67476-5 ####[facility] [id number] [address] OF [facility] ESTIMATED GLOMERULAR FILTRATION RATE 38 mL/min/1.73m??? Low >=60 [facility] Comment on above: Order Comment: Jean weems Type: BLOOD SPECIMENOrdering Facility: [facility] Address: [address] [place] [address] Result Comment: Harika mated Glomerular Filtration Rate [...] actual GFR. Performed By: #### 3 3762-6, 7-6, [id number], 53139-5 ####[facility] [id number] [place] [address] [place] Glucose [Mass/Vol] 133 mg/dL High 74-99 [facility] Comment on above: Order Comment: Jean dank Type: BLOOD SPECIMENOrdering Facility: [facility] Address: [address] [place] [address] Result Comment: The [place] [employer] (ADA) provides guidance for cutoff [...] Standards of Medical Care in Diabetes 2016, [place] [employer]. Diabetes Care. 2016.39(Suppl 1). Performed By: #### 3 3762-6, 6, MQL1041, 50389-4 ####[facility] [id number] [place] [id number] [place] Potassium [Moles/Vol] 3.2 mmol/L Low 3.7-5.1 [facility] Comment on above: Order Comment: Jean weems Type: BLOOD SPECIMENOrdering Facility: [facility] Address: [address] [place] [phone] Performed By: #### 3 3762-6, 2156-6, [id number], 74751-4 ####[facility] [id number] [place] [address] [place] Protein [Mass/Vol] 6.4 g/dL Normal 6.3-8.0 [facility] Comment on above: Order Comment: Jean dank Type: BLOOD SPECIMENOrdering Facility: [facility] Address: [address] [place] [address] Performed By: #### 3 3762-6, 2157-6, [id number], 23681-7 ####[facility] [id number] [place] [id number] [facility] Sodium [Moles/Vol] 142 mmol/L Normal 136-144 [facility] Comment on above: Order Comment: Speci men Type: BLOOD SPECIMENOrdering Facility: [facility] Address: [address] [place], [place] [address] Performed By: #### 3 3762-6, 2157-6, [id number], 64995-1 ####[facility] [id number] [place] [id number] [facility] Urea nitrogen [Mass/Vol] 16 mg/dL Normal 7-21 [facility] Comment on above: Order Comment: Speci men Type: BLOOD SPECIMENOrdering Facility: [facility] Address: [address] [place], [place] [address] Performed By: #### 3 3762-6, 6, [id number], 66653-8 ####ZEE LABORATORYCLIA [id number] [place] [id number] [facility] ECG COMPLETEon 03-29-2023 ECG COMPLETE Ventricular Rate : 1 05 BPM Atrial Rate : 105 BPM P-R Interval : 166 ms QRS Duration : 96 ms Q-T Interval : 354 ms QTC Calculation(Bazett) : 467 ms Calculated P [place] : 81 degrees Calculated R [place] : -11 degrees Calculated T [place] : 29 degrees SINUS TACHYCARDIA MODERATE VOLTAGE CRITERIA FOR LVH, MAY BE NORMAL VARIANT INFERIOR INFARCT , AGE UNDETERMINED ABNORMAL ECG no stemi Confirmed by Pawel HERNADEZ ERIKA ([id number]), editor index KELSEY MONTEIRO (1945) on 03/30/2023 9:06:45 AM NAME : AMBER KOROMA PID : [id number] : 1940 Gender : Female Race : ORD : [id number] Procedure Date : Mar 29 2023 17:45:18 Edit Date : Mar 30 2023 09:06:52 Diagnosis: SINUS TACHYCARDIA MODERATE VOLTAGE CRITERIA FOR LVH, MAY BE NORMAL VARIANT INFERIOR INFARCT , AGE UNDETERMINED ABNORMAL ECG no stemi Confirmed by Pawel HERNADEZ ERIKA ([id number]), editor index KELSEY MONTEIRO (1945) on 03/30/2023 9:06:45 AM Test Reason : Chest Pain Location : 1 : ER ED Overread By : Pawel HERNADEZ ERIKA Edited By : KELSEY MONTEIRO Referred By : , Acquired by : MOLLY, [facility] ED NOTEon 03-29-2023 ED NOTE HNO ID: [id number] Author: Gold Holguin RN Service: Nursing Author Type: Registered Nurse Type: ED Notes Filed: 03/29/2023 9:22 PM Note Text: Pt is being admitted to 404 in stable condition, report given to Herb WALDEN [facility] ED PROV NOTEon 03-29-2023 ED PROV NOTE HNO ID: [id number] Author: Judith Hernadez MD Service: ? Author Type: Physician Type: ED Provider Notes Filed: 03/29/2023 8:05 PM Note Text: ED Provider Note Patient Name: Amber Koroma : 1940 SERVICE DATE: 03/29/23 History [...] her left leg. She was seen by [facility] and admitted for cellulitis. She was [...] (more content not included)... Normal [facility] Gas and Carbon monoxide pane l (BldV)on 03-29-2023 Base excess Calc (BldV) [Moles/Vol] 8 mmol/L High 0-2 [facility] Comment on above: Order Comment: Kareni dank Type: VENOUS BLOOD SPECIMENOrdering Facility: [facility] Address: [address] [place] [address] Performed By: #### 2 4344-4 ####[facility] RESPIRATORYCLIA [id number] [facility]IRAT[facility] [id number] [place] [id number] Carboxyhemoglobin (BldV) [Mass fraction] <1.0 Normal 0.0-2.0 [facility] Comment on above: Order Comment: Jean men Type: VENOUS BLOOD SPECIMENOrdering Facility: [facility] Address: [address] [place] [address] Result Comment: Carb oxyhemoglobin Reference Range for Smokers: 2.0-8.0% Performed By: #### 2 4344-4 ####ZEE RESPIRATORYCLIA [id number] [facility] [id number] [address] [address] CO2 (BldV) [Partial pressure] 52 mm[Hg] Normal 42-55 [facility] Comment on above: Order Comment: Speci men Type: VENOUS BLOOD SPECIMENOrdering Facility: [facility] Address: [address] [place] [address] Performed By: #### 2 4344-4 ####ZEE RESPIRATORYCLIA [id number] [facility] [id number] [address] [address] CO2 adjusted to patient's actual temperature (BldV) [Partial pressure] Normal [facility] Comment on above: Order Comment: Speci men Type: VENOUS BLOOD SPECIMENOrdering Facility: [facility] Address: [address] [place] [address] Performed By: #### 2 4344-4 ####[facility] RESPIRATORYCLIA [id number] [facility] RES[facility]IRAT[facility] [id number] [address] HCO3 (Bld) [Moles/Vol] 33 mmol/L High 24-28 [facility] Comment on above: Order Comment: Speci men Type: VENOUS BLOOD SPECIMENOrdering Facility: [facility] Address: [address] [place] [address] Performed By: #### 2 4344-4 ####C[facility] RESPIRATORYIA [id number] [facility] RESPIRATORY [id number] [address] [address] Hemoglobin (Bld) [Mass/Vol] 12.4 g/dL Normal 11.5-15.5 [facility] Comment on above: Order Comment: Speci men Type: VENOUS BLOOD SPECIMENOrdering Facility: [facility] Address: [address] [place] [address] Performed By: #### 2 4344-4 ####[facility] RESPIRATORYCLIA [id number] [facility] RESPIRAT[facility] [id number] [address] [address] Lactate [Moles/Vol] 1.8 mmol/L Normal 0.5-2.[address] [facility] Comment on above: Order Comment: Speci men Type: VENOUS BLOOD SPECIMENOrdering Facility: [facility] Address: [address] [place] [address] Performed By: #### 2 4344-4 ####ZEE RESPIRATORYCLIA [id number] [facility] RESPIRAT[facility] [id number] [address] [address] Methemoglobin (Bld) [Mass fraction] % Normal 0.0-1.5 [facility] Comment on above: Order Comment: Speci men Type: VENOUS BLOOD SPECIMENOrdering Facility: [facility] Address: [address] [place] [address] Performed By: #### 2 4344-4 ####ZEE RESPIRATORYCLIA [id number] [facility]IRATORY [id number] [address] [address] O2 THERAPY RA=[facility] Comment on above: Order Comment: Speci men Type: VENOUS BLOOD SPECIMENOrdering Facility: [facility] Address: [address] [place] [address] Performed By: #### 2 4344-4 ####[facility] RESPIRATORYIA [id number] [facility] RESPIRATORY [id number] [address] [address] Oxygen (BldV) [Partial pressure] mm[Hg] Low 35-45 [facility] Comment on above: Order Comment: Speci men Type: VENOUS BLOOD SPECIMENOrdering Facility: [facility] Address: [address] Performed By: #### 2 4344-4 ####ZEE RESPIRATORYCLIA [id number] [facility] RESPIRATORY [id number] [address] Oxygen adjusted to patient's actual temperature (BldV) [Partial pressure] Normal [facility] Comment on above: Order Comment: Speci men Type: VENOUS BLOOD SPECIMENOrdering Facility: [facility] Address: [address] [place] [address] Performed By: #### 2 4344-4 ####ZEE RESPIRATORYCLIA [id number] [facility] RESPIRATORY [id number] [place] [address] Oxyhemoglobin (BldV) [Mass fraction] 37 % Low 60-85 [facility] Comment on above: Order Comment: Speci men Type: VENOUS BLOOD SPECIMENOrdering Facility: [facility] Address: [address] [place] [address] Performed By: #### 2 4344-4 ####[facility] RESPIRATORYIA [id number] [facility] RESPIRATORY [id number] [place] [address] pH (BldV) 7.42 [pH] Normal 7.32-7.42 [facility] Comment on above: Order Comment: Speci men Type: VENOUS BLOOD SPECIMENOrdering Facility: [facility] Address: [address] [place] [address] Performed By: #### 2 4344-4 ####[facility] [id number] [facility] RESPIRATORY [id number] [place] [address] pH adjusted to patient's actual temperature (BldV) Normal [facility] Comment on above: Order Comment: Speci men Type: VENOUS BLOOD SPECIMENOrdering Facility: [facility] Address: [address] [place] [address] Performed By: #### 2 4344-4 ####[facility]PIRATORYNORTH COUNTRY [facility] [id number] [facility] RESPIRATORY [id number] [place] [address] Potassium [Moles/Vol] 3.1 mmol/L Low 3.5-5.0 [facility] Comment on above: Order Comment: Speci men Type: VENOUS BLOOD SPECIMENOrdering Facility: [facility] Address: [address] [place] [address] Performed By: #### 2 4344-4 ####[facility]PIRATORYNORTH COUNTRY [facility] [id number] [facility]OS[facility] RESPIRATORY [id number] [place] [address] HIGH SENSITIVITY TROPONIN T (INITIAL)on 03-29-2023 HIGH SENSITIVITY ALEENA 30 ng/L High <12 [facility] Comment on above: Order Comment: Speci men Type: BLOOD SPECIMENOrdering Facility: [facility] Address: [address] [place] [address] Result Comment: When assessing risk for acute [...] MACE. Performed By: #### 3 3762-6, 2157-6, NWS4861, 61165-5 ####ZEE LABORATORYCLIA [id number] [address] [place] HIGH SENSITIVITY TROPONIN T (SECOND)on 03-29-2023 HIGH SENSITIVITY ALEENA 29 ng/L High <12 [facility] Comment on above: Order Comment: Jean weems Type: BLOOD SPECIMEN [facility] Address: [address] [place] [address] Result Comment: When assessing risk for acute [...] 30 day MACE. Performed By: #### L NS4823, 1987-12 #### [facility] LABORATORY CLIA [id number] [address] [place] HIGH SENSITIVITY TROPONIN T (THIRD) 3 HRS AFTER INITIALon 03-29-2023 HIGH SENSITIVITY ALEENA 27 ng/L High <12 [facility] Comment on above: Order Comment: Jean weems Type: BLOOD SPECIMEN [facility] Address: [address] [place] [address] Result Comment: When assessing risk for acute [...] 30 day MACE. Performed By: #### L ND9533, 1987-12 #### [facility]ORAT[facility] CLIA [id number] [address] [place] [address] [facility] NT-proBNP [facility]29 Natriuretic peptide.B prohormone N-Terminal [Mass/Vol] 3874 pg/mL High <450 [facility] Comment on above: Order Comment: Speci men Type: BLOOD SPECIMENOrdering Facility: [facility] Address: [address] [place], [place] [address] [address] Performed By: #### 3 3762-6, 2157-6, [id number], 82319-1 ####CASCADIA LABORATORYCLIA [id number] [place], [place] [address] [place] [address] [facility] XR CHEST 1V FRONTAL PORTon 0 03-29-2023 [...] Other: None. IMPRESSION: Findings as described above. [employer] Sales Representative: PSCB Transcribe Date/Time: Mar 29 2023 7:04P Dictated by : DENISSE ACEVEDO MD This examination was interpreted and the report reviewed and electronically signed by: DENISSE ACEVEDO MD on Mar 29 2023 7:06PM EST [id number] [facility] XR TIBIA FIBULA 2V AP/LAT LT on [...] radiographic evidence of acute bony destructive process. [employer] Sales Representative: [facility] Transcribe Date/Time: Mar 29 2023 7:03P Dictated by : ALECIA GARCIA MD This examination was interpreted and the report reviewed and electronically signed by: ALECIA GARCIA MD on Mar 29 2023 7:05PM EST [id number] Normal [facility] Absolute lymphocyte countOrd ered By: Armand Bob on 03-19-2023 Lymphocytes Auto (Unsp spec) [#/Vol] 1.57 10*3/uL 0.83-4.51 [facility] Basophil percentageOrdered B y: Armand Bob on 03-19-2023 Basophil percentage Not Reportable [facility] Basophil percentage 2.0 mg/dL 2.5-4.9 [facility] Chloride [Moles/Vol] 110 mmol/L 98-107 [facility] Glucose [Mass/Vol] 92 mg/dL 74-106 [facility] Neutrophils (Bld) [#/Vol] 10.9 10*3/uL 2.0-7.7 [facility] Potassium [Moles/Vol] 3.6 mmol/L 3.5-5.1 [facility] Sodium [Moles/Vol] 138 mmol/L 136-145 [facility] WBC (Bld) [#/Vol] 13.1 10*3/uL 4.4-11.0 [facility] Blood band neutrophil count as percentage of total leukocytesOrdered By: Armand Bob on 03-19-2023 Band form neutrophils/100 WBC (Bld) 15 % 0-5 [facility] Blood erythrocytes count (nu mber/volume)Ordered By: Armand Bob on 03-19-2023 RBC (Bld) [#/Vol] 3.28 10*6/uL 4.2-5.4 [facility] Blood hemoglobin measurement (mass/volume)Ordered By: Armand Bob on 03-19-2023 Hemoglobin (Bld) [Mass/Vol] 9.5 g/dL 12.0-15.0 [facility] Blood lymphocytes/100 leukoc ytesOrdered By: Armand Bob on 03-19-2023 Lymphocytes/100 WBC (Bld) 12 % 19-41 [facility] Blood monocytes/100 leukocyt esOrdered By: Armand Bob on 03-19-2023 Monocytes/100 WBC (Bld) 4 % 0-10 [facility] Blood platelet adequacy dete ction by light microscopyOrdered By: Armand Bob on 03-19-2023 Platelets LM Ql (Bld) SLT DEC ADEQ [facility] Blood platelet mean volumeOr dered By: Armand Bob on 03-19-2023 Platelet mean volume (Bld) [Entitic vol] 10.7 fL 6.2-12.0 [facility] Blood segmented neutrophils/ 100 leukocytesOrdered By: Armand Bob on 03-19-2023 Segmented neutrophils/100 WBC (Bld) 68 % 47-70 [facility] Determination of erythrocyte mean corpuscular volume (MCV)Ordered By: Armand Bob on 03-19-2023 MCV (RBC) [Entitic vol] 91.2 fL 81-99 [facility] Hematocrit Auto (Bld) [Volum e fraction]Ordered By: Armand Bob on 03-19-2023 Hematocrit (Bld) [Volume fraction] 29.9 % 37-47 [facility] Laboratory - Chemistry and C hemistry - challengeOrdered By: Armand Bob on 03-19-2023 CO2 [Moles/Vol] 25.0 mmol/L 21.0-32.0 [facility] Magnesium [Mass/Vol] 2.0 mg/dL 1.6-2.6 [facility] Urea nitrogen/Creatinine [Mass ratio] 20.3 mg/mg 10-20 [facility] Laboratory - Hematology and Cell countsOrdered By: Armand Bob on 03-19-2023 Erythrocyte distribution width (RBC) [Entitic vol] 48.0 fL 35.1-43.9 [facility] Erythrocyte distribution width (RBC) [Ratio] 14.2 % 11.6-14.6 [facility] MCH (RBC) [Entitic mass] 29.0 pg 27.0-32.0 [facility] Myelocytes/100 WBC (Bld) 1 % 0-0 [facility] MCHC Auto (RBC) [Mass/Vol]Or dered By: Armand Bob on 03-19-2023 MCHC (RBC) [Mass/Vol] 31.8 g/dL 32-36 [facility] No Panel InformationOrdered By: Armand Bob on 03-19-2023 Estimated Creatinine Clearance Calc 44.42 ml/min [facility] Estimated GFR (MDRD) Amer 51 mL/min >60 [facility] Comment on above: GFR Calc Estimated GFR (MDRD) Non-Af Amer 42 mL/min >60 [facility] Comment on above: Non- GFR Calc Platelets bldOrdered By: Sarbjit Bob on 03-19-2023 Platelets (Bld) [#/Vol] 136 10*3/uL 150-450 [facility] RBC morphologyOrdered By: Gumaro Bob on 03-19-2023 RBC morphology finding Nom (Bld) NORM C+C NORMAL NORM C&C [facility] Review by pathologistOrdered By: Armand Bob on 03-19-2023 Pathologist review Bryce (Unsp spec) [Interp] Reviewed [facility] Comment on above: Previous reported re sult: Narda angel Edited by: RGOMARCELA on 03/20/23:1011Neutrophilic leukocytosis.Normocytic anemia.Mild Thrombocytopenia.Clinical correlation necessary.Rainer Nelson M.D. 03/20/23 AMENDED REPORT 03/20/23 1011 PATH REV previously reported as: December foll Serum or plasma calcium lakeisha urement (mass/volume)Ordered By: Armand Bob on 03-19-2023 Calcium [Mass/Vol] 7.8 mg/dL 8.5-10.1 [facility] Serum or plasma creatinine m easurement (mass/volume)Ordered By: Armand Bob on 03-19-2023 Creatinine [Mass/Vol] 1.28 mg/dL 0.55-1.02 [facility] Comment on above: The validity of the calculated GFR & GFRAA in patients over 70 years has not been determined. Clinical correlation is essential. Serum or plasma urea nitroge n measurement (mass/volume)Ordered By: Armand Bob on 03-19-2023 Urea nitrogen [Mass/Vol] 26 mg/dL 7-18 [facility] Thin prep Papanicolaou smear with manual screeningOrdered By: Armand Bob on 03-19-2023 Thin prep Papanicolaou smear with manual screening 3 5-15 [facility] Total cell countOrdered By: Armand Bob on 03-19-2023 Cells counted Molgen (Bld/Tiss) [#] 100 MANUAL DIFF [facility] Basophil percentageOrdered B y: Nata Rivers on 03-18-2023 Basophils/100 WBC (Bld) 0.2 % 0-1 [facility] Eosinophils/100 WBC (Bld) 0.0 % 0-5 [facility] Blood lymphocytes/100 leukoc ytesOrdered By: Nata Rivers on 03-18-2023 Lymphocytes/100 WBC (Bld) 3.7 % 19-41 [facility] Blood manual differential co mment interpretation (narrative result)Ordered By: Nata Rivers on 03-18-2023 Manual differential comment Bryce (Bld) [Interp] SCANNED [facility] Comment on above: LYMPHOPENIALEFT SHIF T PRESENT BANDS 2+ Blood monocytes/100 leukocyt esOrdered By: Nata Rivers on 03-18-2023 Monocytes/100 WBC (Bld) 4.5 % 0-10 [facility] Laboratory - Hematology and Cell countsOrdered By: Nata Rivers on 03-18-2023 Immature granulocytes/100 WBC (Bld) 2.100 % 0.0-0.9 [facility] Comment on above: IG% - Immature Granu locytes (promyelocytes, myelocytes and metamyelocytes) > 1% indicates that a LEFT SHIFT is Present. Nucleated RBC/100 WBC (Bld) [Ratio] 0 % 0-5 [facility] Basophil percentageOrdered B y: Familia Smalls on 03-17-2023 Lactate [Moles/Vol] 1.5 mmol/L 0.4-2.0 [facility] Bilirubin [Mass/Vol] 0.60 mg/dL 0.20-1.00 [facility] Comment on above: For patients on eltr ombopag therapy, use of Dimension [place] TBIL is not recommended. Protein [Mass/Vol] 7.8 g/dL 6.4-8.2 [facility] INR in Blood by Coagulation assayOrdered By: Familia Smalls on 03-17-2023 INR Coag (Bld) [Relative time] 1.2 {INR} [facility] Laboratory - Chemistry and C hemistry - challengeOrdered By: Familia Smalls on 03-17-2023 ALP [Catalytic activity/Vol] 82 U/L 45-117 [facility] ALT [Catalytic activity/Vol] 16 U/L 13-56 [facility] Globulin (S) [Mass/Vol] 5.0 g/dL 2.2-4.2 [facility] Laboratory - CoagulationOrde red By: Familia Smalls on 03-17-2023 aPTT Coag (Bld) [Time] 32.6 s 24.1-36.2 [facility] PT Coag (PPP) [Time] 15.5 s 11.7-14.9 [facility] Laboratory - Microbiology an d Antimicrobial susceptibilityOrdered By: Familia Smalls on 03-17-2023 Bacteria identified Cx Nom (Bld) No growth in 5 days. [facility] Bacteria identified Cx Nom (Bld) No growth in 5 days. [facility] Serum or plasma albumin lakeisha urement (mass/volume)Ordered By: Familia Smalls on 03-17-2023 Albumin [Mass/Vol] 2.8 g/dL 3.2-5.0 [facility] Serum or plasma albumin/glob ulin mass ratioOrdered By: Familia Smalls on 03-17-2023 Albumin/Globulin [Mass ratio] 0.6 {ratio} 0.9-2.4 [facility] Thin prep Papanicolaou smear with manual screeningOrdered By: Familia Smalls on 03-17-2023 Thin prep Papanicolaou smear with manual screening 20 U/L 15-37 [facility] Absolute lymphocyte countOrd ered By: ED PROVIDER on 01-15-2023 Lymphocytes Auto (Unsp spec) [#/Vol] 1.19 10*3/uL 0.83-4.51 [facility] Basophil percentageOrdered B y: ED PROVIDER on 01-15-2023 Basophils/100 WBC (Bld) 0.5 % 0-1 [facility] Chloride [Moles/Vol] 105 mmol/L 98-107 [facility] Eosinophils/100 WBC (Bld) 1.2 % 0-5 [facility] Glucose [Mass/Vol] 96 mg/dL 74-106 [facility] Neutrophils (Bld) [#/Vol] 4.3 10*3/uL 2.0-7.7 [facility] Neutrophils/100 WBC (Bld) 67.5 % 47-70 [facility] Potassium [Moles/Vol] 3.6 mmol/L 3.5-5.1 [facility] Sodium [Moles/Vol] 140 mmol/L 136-145 [facility] WBC (Bld) [#/Vol] 6.4 10*3/uL 4.4-11.0 [facility] Blood erythrocytes count (nu mber/volume)Ordered By: ED PROVIDER on 01-15-2023 RBC (Bld) [#/Vol] 3.71 10*6/uL 4.2-5.4 [facility] Blood hemoglobin measurement (mass/volume)Ordered By: ED PROVIDER on 01-15-2023 Hemoglobin (Bld) [Mass/Vol] 10.6 g/dL 12.0-15.0 [facility] Blood lymphocytes/100 leukoc ytesOrdered By: ED PROVIDER on 01-15-2023 Lymphocytes/100 WBC (Bld) 18.6 % 19-41 [facility] Blood monocytes/100 leukocyt esOrdered By: ED PROVIDER on 01-15-2023 Monocytes/100 WBC (Bld) 11.9 % 0-10 [facility] Blood platelet mean volumeOr dered By: ED PROVIDER on 01-15-2023 Platelet mean volume (Bld) [Entitic vol] 10.2 fL 6.2-12.0 [facility] Determination of erythrocyte mean corpuscular volume (MCV)Ordered By: ED PROVIDER on 01-15-2023 MCV (RBC) [Entitic vol] 89.5 fL 81-99 [facility] Hematocrit Auto (Bld) [Volum e fraction]Ordered By: ED PROVIDER on 01-15-2023 Hematocrit (Bld) [Volume fraction] 33.2 % 37-47 [facility] Influenza virus A and B and SARS-CoV-2 (COVID-19) Ag panel - Upper respiratory specimOrdered By: ED PROVIDER on 01-15-2023 SARS-CoV-2 (COVID-19) RNA KEERTHI+probe Ql (Resp) [facility] Laboratory - Chemistry and C hemistry - challengeOrdered By: ED PROVIDER on 01-15-2023 CO2 [Moles/Vol] 29.0 mmol/L 21.0-32.0 [facility] Natriuretic peptide B (Bld) [Mass/Vol] 147.5 pg/mL 0-100 [facility] Urea nitrogen/Creatinine [Mass ratio] 19.5 mg/mg 10-20 [facility] Laboratory - Hematology and Cell countsOrdered By: ED PROVIDER on 01-15-2023 Erythrocyte distribution width (RBC) [Entitic vol] 46.5 fL 35.1-43.9 [facility] Erythrocyte distribution width (RBC) [Ratio] 14.2 % 11.6-14.6 [facility] Immature granulocytes/100 WBC (Bld) 0.300 % 0.0-0.9 [facility] Comment on above: IG% - Immature Granu locytes (promyelocytes, myelocytes and metamyelocytes) > 1% indicates that a LEFT SHIFT is Present. MCH (RBC) [Entitic mass] 28.6 pg 27.0-32.0 [facility] Nucleated RBC/100 WBC (Bld) [Ratio] 0 % 0-5 [facility] MCHC Auto (RBC) [Mass/Vol]Or dered By: ED PROVIDER on 01-15-2023 MCHC (RBC) [Mass/Vol] 31.9 g/dL 32-36 [facility] No Panel InformationOrdered By: Deann Kaur on 01-15-2023 D-Dimer Quantitative (PE/DVT) 1.09 FEU/ug/m 0.27-0.49 [facility] Comment on above: D-Dimer ELEVATED (>0 .49): Additional studies and clinicalassessments are indicated to conclude diagnosis of:Deep Vein Thrombosis (DVT) or Pulmonary Embolism (PE)CRITICAL VALUE VERIFIED. CALLED TO [id number] Tess Serrano.RESULTS READ BACK BY SAME . Troponin I High Sensitivity 6 pg/mL 3.0-54.0 [facility] Comment on above: Please Note: New Jessica t Units and Gender Specific Reference Ranges. For more information see Policy Stat Procedure [place] High Sensitivity Troponin (TNIH) and attachments. No Panel InformationOrdered By: ED PROVIDER on 01-15-2023 Estimated Creatinine Clearance Calc 23.50 ml/min [facility] Estimated GFR (MDRD) Amer 51 mL/min >60 [facility] Comment on above: GFR Calc Estimated GFR (MDRD) Non-Af Amer 42 mL/min >60 [facility] Comment on above: Non- GFR Calc Platelets bldOrdered By: ED PROVIDER on 01-15-2023 Platelets (Bld) [#/Vol] 196 10*3/uL 150-450 [facility] Serum or plasma calcium lakeisha urement (mass/volume)Ordered By: ED PROVIDER on 01-15-2023 Calcium [Mass/Vol] 8.9 mg/dL 8.5-10.1 [facility] Serum or plasma creatinine m easurement (mass/volume)Ordered By: ED PROVIDER on 01-15-2023 Creatinine [Mass/Vol] 1.28 mg/dL 0.55-1.02 [facility] Comment on above: The validity of the calculated GFR & GFRAA in patients over 70 years has not been determined. Clinical correlation is essential. Serum or plasma urea nitroge n measurement (mass/volume)Ordered By: ED PROVIDER on 01-15-2023 Urea nitrogen [Mass/Vol] 25 mg/dL 7-18 [facility] Thin prep Papanicolaou smear with manual screeningOrdered By: ED PROVIDER on 01-15-2023 Thin prep Papanicolaou smear with manual screening 6 5-[facility] CNPN Telephone (RACHANA) AMBER KOROMA ([id number]) 1940 F Date Time Provider Department 01/03/23 JUDITH AU During your visit today, we recorded the following information about you: Logan Au PA-C 01/03/2023 10:38 AM Signed Called amber No answer Left VM All attempts to [...] 01/29/2007 Comments: pt states had reaction to "IV med" given for MRI 12/04/2006 TAPE (ADHESIVE TAPE-SILICONES) [...] Endometrial cancer [C54.1] 03/19/2011 Cyst in hand [[id number]] 08/02/2011 Personal history of malignant neoplasm of [...] Encounter Status:Closed by JUDITH AU on 01/03/23 [facility] Absolute lymphocyte countOrd ered By: Dr. Benitez on 11-20-2022 Lymphocytes Auto (Unsp spec) [#/Vol] 1.01 10*3/uL 0.83-4.51 [facility] Basophil percentageOrdered B y: Dr. Benitez on 11-20-2022 Basophils/100 WBC (Bld) 0.5 % 0-1 [facility] Bilirubin [Mass/Vol] 0.30 mg/dL 0.20-1.00 [facility] Comment on above: For patients on eltr ombopag therapy, use of Dimension [place] TBIL is not recommended. Chloride [Moles/Vol] 105 mmol/L 98-107 [facility] Eosinophils/100 WBC (Bld) 2.0 % 0-5 [facility] Glucose [Mass/Vol] 88 mg/dL 74-106 [facility] Neutrophils (Bld) [#/Vol] 4.3 10*3/uL 2.0-7.7 [facility] Neutrophils/100 WBC (Bld) 71.4 % 47-70 [facility] Potassium [Moles/Vol] 4.9 mmol/L 3.5-5.1 [facility] Protein [Mass/Vol] 7.3 g/dL 6.4-8.2 [facility] Sodium [Moles/Vol] 135 mmol/L 136-145 [facility] WBC (Bld) [#/Vol] 6.0 10*3/uL 4.4-11.0 [facility] Blood erythrocytes count (nu mber/volume)Ordered By: Dr. Benitez on 11-20-2022 RBC (Bld) [#/Vol] 3.98 10*6/uL 4.2-5.4 [facility] Blood hemoglobin measurement (mass/volume)Ordered By: Dr. Benitez on 11-20-2022 Hemoglobin (Bld) [Mass/Vol] 11.2 g/dL 12.0-15.0 [facility] Blood lymphocytes/100 leukoc ytesOrdered By: Dr. Benitez on 11-20-2022 Lymphocytes/100 WBC (Bld) 16.7 % 19-41 [facility] Blood monocytes/100 leukocyt esOrdered By: Dr. Benitez on 11-20-2022 Monocytes/100 WBC (Bld) 9.1 % 0-10 [facility] Blood platelet mean volumeOr dered By: Dr. Benitez on 11-20-2022 Platelet mean volume (Bld) [Entitic vol] 11.5 fL 6.2-12.0 [facility] Determination of erythrocyte mean corpuscular volume (MCV)Ordered By: Dr. Benitez on 11-20-2022 MCV (RBC) [Entitic vol] 90.2 fL 81-99 [facility] Hematocrit Auto (Bld) [Volum e fraction]Ordered By: Dr. Benitez on 11-20-2022 Hematocrit (Bld) [Volume fraction] 35.9 % 37-47 [facility] Laboratory - Chemistry and C hemistry - challengeOrdered By: Dr. Benitez on 11-20-2022 ALP [Catalytic activity/Vol] 73 U/L 45-117 [facility] ALT [Catalytic activity/Vol] 15 U/L 13-56 [facility] CO2 [Moles/Vol] 26.0 mmol/L 21.0-32.0 [facility] Globulin (S) [Mass/Vol] 4.1 g/dL 2.2-4.2 [facility] Lipase [Catalytic activity/Vol] 185 U/L 73-393 [facility] Urea nitrogen/Creatinine [Mass ratio] 19.8 mg/mg 10-20 [facility] Laboratory - Hematology and Cell countsOrdered By: Dr. Benitez on 11-20-2022 Erythrocyte distribution width (RBC) [Entitic vol] 45.7 fL 35.1-43.9 [facility] Erythrocyte distribution width (RBC) [Ratio] 13.9 % 11.6-14.6 [facility] Immature granulocytes/100 WBC (Bld) 0.300 % 0.0-0.9 [facility] Comment on above: IG% - Immature Granu locytes (promyelocytes, myelocytes and metamyelocytes) > 1% indicates that a LEFT SHIFT is Present. MCH (RBC) [Entitic mass] 28.1 pg 27.0-32.0 [facility] Nucleated RBC/100 WBC (Bld) [Ratio] 0 % 0-5 [facility] MCHC Auto (RBC) [Mass/Vol]Or dered By: Dr. Benitez on 11-20-2022 MCHC (RBC) [Mass/Vol] 31.2 g/dL 32-36 [facility] No Panel InformationOrdered By: Dr. Benitez on 11-20-2022 Estimated GFR (MDRD) Amer 36 mL/min >60 [facility] Comment on above: GFR Calc Estimated GFR (MDRD) Non-Af Amer 30 mL/min >60 [facility] Comment on above: Non- GFR Calc Parathyroid Hormone (Intact) 161.4 pg/mL 18.4-80.1 [facility] Thyroid Stimulating Hormone (TSH) 3.26 uIU/mL 0.358-3.74 [facility] Vitamin D 25-Hydroxy 40.0 ng/mL [facility] Comment on above: Vitamin D 25(OH) Sta tus Range Deficiency <20 ng/mL (50nmol/L) Insufficiency 20 - 30 ng/mL (50 - 75 nmol/L) Sufficiency 30 - 100 ng/mL (75 - 250 nmol/L) Toxicity >100 ng/mL (>250 nmol/L) Platelets bldOrdered By: Dr. Benitez on 11-20-2022 Platelets (Bld) [#/Vol] 193 10*3/uL 150-450 [facility] Serum or plasma albumin lakeisha urement (mass/volume)Ordered By: Dr. Benitez on 11-20-2022 Albumin [Mass/Vol] 3.2 g/dL 3.2-5.0 [facility] Serum or plasma albumin/glob ulin mass ratioOrdered By: Dr. Benitez on 11-20-2022 Albumin/Globulin [Mass ratio] 0.8 {ratio} 0.9-2.4 [facility] Serum or plasma calcium lakeisha urement (mass/volume)Ordered By: Dr. Benitez on 11-20-2022 Calcium [Mass/Vol] 9.1 mg/dL 8.5-10.1 [facility] Serum or plasma creatinine m easurement (mass/volume)Ordered By: Dr. Benitez on 11-20-2022 Creatinine [Mass/Vol] 1.72 mg/dL 0.55-1.02 [facility] Comment on above: The validity of the calculated GFR & GFRAA in patients over 70 years has not been determined. Clinical correlation is essential. Serum or plasma urea nitroge n measurement (mass/volume)Ordered By: Dr. Benitez on 11-20-2022 Urea nitrogen [Mass/Vol] 34 mg/dL 7-18 [facility] Thin prep Papanicolaou smear with manual screeningOrdered By: Dr. Benitez on 11-20-2022 Thin prep Papanicolaou smear with manual screening 19 U/L 15-37 [facility] Thin prep Papanicolaou smear with manual screening 4 5-15 [facility] XR FOOT GENERAL 3V AP/LAT/OB L LEFTon 09-11-2022 [facility] Absolute lymphocyte countOrd ered By: Dr. Benitez on 07-09-2022 Lymphocytes Auto (Unsp spec) [#/Vol] 1.12 10*3/uL 0.83-4.51 [facility] Basophil percentageOrdered B y: Dr. Benitez on 07-09-2022 Basophils/100 WBC (Bld) 0.6 % 0-1 [facility] Bilirubin [Mass/Vol] 0.30 mg/dL 0.20-1.00 [facility] Comment on above: For patients on eltr ombopag therapy, use of Dimension [place] TBIL is not recommended. Chloride [Moles/Vol] 108 mmol/L 98-107 [facility] Eosinophils/100 WBC (Bld) 2.9 % 0-5 [facility] Glucose [Mass/Vol] 115 mg/dL 74-106 [facility] Comment on above: Fasting Glucose resu lt from 100 to 125 mg/dL suggests IMPAIRED HOMEOSTASIS per A.D.A. criteria. Neutrophils (Bld) [#/Vol] 4.4 10*3/uL 2.0-7.7 [facility] Neutrophils/100 WBC (Bld) 70.9 % 47-70 [facility] Potassium [Moles/Vol] 3.6 mmol/L 3.5-5.1 [facility] Protein [Mass/Vol] 7.4 g/dL 6.4-8.2 [facility] Sodium [Moles/Vol] 142 mmol/L 136-145 [facility] WBC (Bld) [#/Vol] 6.3 10*3/uL 4.4-11.0 [facility] Blood erythrocytes count (nu mber/volume)Ordered By: Dr. Benitez on 07-09-2022 RBC (Bld) [#/Vol] 3.67 10*6/uL 4.2-5.4 [facility] Blood hemoglobin measurement (mass/volume)Ordered By: Dr. Benitez on 07-09-2022 Hemoglobin (Bld) [Mass/Vol] 10.6 g/dL 12.0-15.0 [facility] Blood lymphocytes/100 leukoc ytesOrdered By: Dr. Benitez on 07-09-2022 Lymphocytes/100 WBC (Bld) 17.9 % 19-41 [facility] Blood monocytes/100 leukocyt esOrdered By: Dr. Benitez on 07-09-2022 Monocytes/100 WBC (Bld) 7.2 % 0-10 [facility] Blood platelet mean volumeOr dered By: Dr. Benitez on 07-09-2022 Platelet mean volume (Bld) [Entitic vol] 10.4 fL 6.2-12.0 [facility] Determination of erythrocyte mean corpuscular volume (MCV)Ordered By: Dr. Benitez on 07-09-2022 MCV (RBC) [Entitic vol] 93.7 fL 81-99 [facility] Hematocrit Auto (Bld) [Volum e fraction]Ordered By: Dr. Benitez on 07-09-2022 Hematocrit (Bld) [Volume fraction] 34.4 % 37-47 [facility] Laboratory - Chemistry and C hemistry - challengeOrdered By: Dr. Benitez on 07-09-2022 ALP [Catalytic activity/Vol] 88 U/L 45-117 [facility] ALT [Catalytic activity/Vol] 13 U/L 13-56 [facility] CO2 [Moles/Vol] 28.0 mmol/L 21.0-32.0 [facility] Globulin (S) [Mass/Vol] 4.3 g/dL 2.2-4.2 [facility] Natriuretic peptide B (Bld) [Mass/Vol] 105.8 pg/mL 0-100 [facility] Urea nitrogen/Creatinine [Mass ratio] 23.3 mg/mg 10-20 [facility] Laboratory - Hematology and Cell countsOrdered By: Dr. Benitez on 07-09-2022 Erythrocyte distribution width (RBC) [Entitic vol] 44.0 fL 35.1-43.9 [facility] Erythrocyte distribution width (RBC) [Ratio] 12.7 % 11.6-14.6 [facility] Immature granulocytes/100 WBC (Bld) 0.500 % 0.0-0.9 [facility] Comment on above: IG% - Immature Granu locytes (promyelocytes, myelocytes and metamyelocytes) > 1% indicates that a LEFT SHIFT is Present. MCH (RBC) [Entitic mass] 28.9 pg 27.0-32.0 [facility] Nucleated RBC/100 WBC (Bld) [Ratio] 0 % 0-5 [facility] MCHC Auto (RBC) [Mass/Vol]Or dered By: Dr. Benitez on 07-09-2022 MCHC (RBC) [Mass/Vol] 30.8 g/dL 32-36 [facility] No Panel InformationOrdered By: Dr. Benitez on 07-09-2022 Estimated GFR (MDRD) Amer 57 mL/min >60 [facility] Comment on above: GFR Calc Estimated GFR (MDRD) Non-Af Amer 47 mL/min >60 [facility] Comment on above: Non- GFR Calc Parathyroid Hormone (Intact) 104.7 pg/mL 18.4-80.1 [facility] Vitamin D 25-Hydroxy 37.3 ng/mL [facility] Comment on above: Vitamin D 25(OH) Sta tus Range Deficiency <20 ng/mL (50nmol/L) Insufficiency 20 - 30 ng/mL (50 - 75 nmol/L) Sufficiency 30 - 100 ng/mL (75 - 250 nmol/L) Toxicity >100 ng/mL (>250 nmol/L) Platelets bldOrdered By: Dr. Benitez on 07-09-2022 Platelets (Bld) [#/Vol] 212 10*3/uL 150-450 [facility] Serum or plasma albumin lakeisha urement (mass/volume)Ordered By: Dr. Benitez on 07-09-2022 Albumin [Mass/Vol] 3.1 g/dL 3.2-5.0 [facility] Serum or plasma albumin/glob ulin mass ratioOrdered By: Dr. Benitez on 07-09-2022 Albumin/Globulin [Mass ratio] 0.7 {ratio} 0.9-2.4 [facility] Serum or plasma calcium lakeisha urement (mass/volume)Ordered By: Dr. Benitez on 07-09-2022 Calcium [Mass/Vol] 9.4 mg/dL 8.5-10.1 [facility] Serum or plasma creatinine m easurement (mass/volume)Ordered By: Dr. Benitez on 07-09-2022 Creatinine [Mass/Vol] 1.16 mg/dL 0.55-1.02 [facility] Comment on above: The validity of the calculated GFR & GFRAA in patients over 70 years has not been determined. Clinical correlation is essential. Serum or plasma urea nitroge n measurement (mass/volume)Ordered By: Dr. Benitez on 07-09-2022 Urea nitrogen [Mass/Vol] 27 mg/dL 7-18 [facility] Thin prep Papanicolaou smear with manual screeningOrdered By: Dr. Benitez on 07-09-2022 Thin prep Papanicolaou smear with manual screening 14 U/L 15-37 [facility] Thin prep Papanicolaou smear with manual screening 6 5-15 [facility] Absolute lymphocyte counton 05-20-2022 Lymphocytes Auto (Unsp spec) [#/Vol] 0.94 10*3/uL 0.83-4.51 [facility] Work Phone: [phone] Basophil percentageon 2021 Basophils/100 WBC (Bld) 0.6 % 0-1 [facility] Work Phone: [phone] Bilirubin [Mass/Vol] 0.30 mg/dL 0.20-1.00 [facility] Work Phone: Comment on above: For patients on eltr ombopag therapy, use of Dimension [place] TBIL is not recommended. Chloride [Moles/Vol] 106 mmol/L 98-107 [facility] Work Phone: [phone] Eosinophils/100 WBC (Bld) 2.7 % 0-5 [facility] Work Phone: [phone] Glucose [Mass/Vol] 110 mg/dL 74-106 [facility] Work Phone: [phone] Comment on above: Fasting Glucose resu lt from 100 to 125 mg/dL suggests IMPAIRED HOMEOSTASIS per A.D.A. criteria. Neutrophils (Bld) [#/Vol] 4.6 10*3/uL 2.0-7.7 [facility] Work Phone: [phone] Neutrophils/100 WBC (Bld) 71.5 % 47-70 [facility] Work Phone: [phone] Potassium [Moles/Vol] 4.2 mmol/L 3.5-5.1 [facility] Work Phone: [phone] Comment on above: Slight Hemolysis, Re sult may be falsely increased. Protein [Mass/Vol] 7.3 g/dL 6.4-8.2 [facility] Work Phone: Sodium [Moles/Vol] 141 mmol/L 136-145 [facility] Work Phone: WBC (Bld) [#/Vol] 6.4 10*3/uL 4.4-11.0 [facility] Work Phone: Blood erythrocytes count (nu mber/volume)on 05-20-2022 RBC (Bld) [#/Vol] 3.56 10*6/uL 4.2-5.4 [facility]: Blood hemoglobin measurement (mass/volume)on 05-20-2022 Hemoglobin (Bld) [Mass/Vol] 10.6 g/dL 12.0-15.0 [facility] Work Phone: Blood lymphocytes/100 leukoc yteson 05-20-2022 Lymphocytes/100 WBC (Bld) 14.8 % 19-41 [facility] Work Phone: Blood monocytes/100 leukocyt eson 05-20-2022 Monocytes/100 WBC (Bld) 9.9 % 0-10 [facility] Work Phone: Blood platelet mean volumeon 05-20-2022 Platelet mean volume (Bld) [Entitic vol] 10.3 fL 6.2-12.0 [facility] Work Phone: [phone] Determination of erythrocyte mean corpuscular volume (MCV)on 05-20-2022 MCV (RBC) [Entitic vol] 94.7 fL 81-99 [facility] Work Phone: Hematocrit Auto (Bld) [Volum e fraction]on 05-20-2022 Hematocrit (Bld) [Volume fraction] 33.7 % 37-47 [facility] Work Phone: [phone] Laboratory - Chemistry and C hemistry - challengeon 05-20-2022 ALP [Catalytic activity/Vol] 87 U/L 45-117 [facility] Work Phone: ALT [Catalytic activity/Vol] 14 U/L 13-56 [facility] Work Phone: [phone] CO2 [Moles/Vol] 28.0 mmol/L 21.0-32.0 [facility] Work Phone: [phone] Globulin (S) [Mass/Vol] 4.2 g/dL 2.2-4.2 [facility] Work Phone: [phone] Natriuretic peptide B (Bld) [Mass/Vol] 74.4 pg/mL 0-100 [facility] Work Phone: [phone] Urea nitrogen/Creatinine [Mass ratio] 22.4 mg/mg 10-20 [facility] Work Phone: Laboratory - Hematology and Cell countson 05-20-2022 Erythrocyte distribution width (RBC) [Entitic vol] 45.6 fL 35.1-43.9 [facility] Work Phone: [phone] Erythrocyte distribution width (RBC) [Ratio] 13.3 % 11.6-14.6 [facility] Work Phone: [phone] Immature granulocytes/100 WBC (Bld) 0.500 % 0.0-0.9 [facility] Work Phone: [phone] Comment on above: IG% - Immature Granu locytes (promyelocytes, myelocytes and metamyelocytes) > 1% indicates that a LEFT SHIFT is Present. MCH (RBC) [Entitic mass] 29.8 pg 27.0-32.0 [facility] Work Phone: Nucleated RBC/100 WBC (Bld) [Ratio] 0 % 0-5 [facility] Work Phone: [phone] MCHC Auto (RBC) [Mass/Vol]on 05-20-2022 MCHC (RBC) [Mass/Vol] 31.5 g/dL 32-36 [facility] Work Phone: No Panel Informationon 05-20 Estimated Creatinine Clearance Calc 21.41 ml/min [facility] Work Phone: [phone] Estimated GFR (MDRD) Amer 45 mL/min >60 [facility] Work Phone: Comment on above: GFR Calc Estimated GFR (MDRD) Non-Af Amer 37 mL/min >60 [facility] Work Phone: Comment on above: Non- GFR Calc Platelets bldon 05-20-2022 Platelets (Bld) [#/Vol] 190 10*3/uL 150-450 [facility] Work Phone: Serum or plasma albumin lakeisha urement (mass/volume)on 05-20-2022 Albumin [Mass/Vol] 3.1 g/dL 3.2-5.0 [facility] Work Phone: Serum or plasma albumin/glob ulin mass ratioon 05-20-2022 Albumin/Globulin [Mass ratio] 0.7 {ratio} 0.9-2.4 [facility] Work Phone: Serum or plasma calcium lakeisha urement (mass/volume)on 05-20-2022 Calcium [Mass/Vol] 9.4 mg/dL 8.5-10.1 [facility] Work Phone: Serum or plasma creatinine m easurement (mass/volume)on 05-20-2022 Creatinine [Mass/Vol] 1.43 mg/dL 0.55-1.02 [facility] Work Phone: Comment on above: The validity of the calculated GFR & GFRAA in patients over 70 years has not been determined. Clinical correlation is essential. Serum or plasma urea nitroge n measurement (mass/volume)on 05-20-2022 Urea nitrogen [Mass/Vol] 32 mg/dL 7-18 [facility] Work Phone: Thin prep Papanicolaou smear with manual screeningon 05-20-2022 Thin prep Papanicolaou smear with manual screening 17 U/L 15-37 [facility] Work Phone: Comment on above: Slight Hemolysis, Re sult may be falsely increased. Thin prep Papanicolaou smear with manual screening 7 5-15 [facility] Work Phone: Absolute lymphocyte counton 05-08-2022 Lymphocytes Auto (Unsp spec) [#/Vol] 0.75 10*3/uL 0.83-4.51 [facility] Work Phone: Basophil percentageon 2021 Basophil percentage 0 SEEN /hpf 0-5 [facility] Work Phone: Basophils/100 WBC (Bld) 0.4 % 0-1 [facility] Work Phone: Bilirubin [Mass/Vol] 0.30 mg/dL 0.20-1.00 [facility] Work Phone: Comment on above: For patients on eltr ombopag therapy, use of Dimension [place] TBIL is not recommended. Chloride [Moles/Vol] 106 mmol/L 98-107 [facility] Work Phone: Eosinophils/100 WBC (Bld) 1.4 % 0-5 [facility] Work Phone: Glucose [Mass/Vol] 94 mg/dL 74-106 [facility] Work Phone: Neutrophils (Bld) [#/Vol] 5.8 10*3/uL 2.0-7.7 [facility] Work Phone: Neutrophils/100 WBC (Bld) 79.8 % 47-70 [facility] Work Phone: Potassium [Moles/Vol] 4.5 mmol/L 3.5-5.1 [facility] Work Phone: Protein [Mass/Vol] 7.3 g/dL 6.4-8.2 [facility] Work Phone: Sodium [Moles/Vol] 140 mmol/L 136-145 [facility] Work Phone: WBC (Bld) [#/Vol] 7.3 10*3/uL 4.4-11.0 [facility] Work Phone: Bilirubin Test strip Ql (U)o n 05-08-2022 Bilirubin Ql (U) Negative Negative [facility] Work Phone: Blood erythrocytes count (nu mber/volume)on 05-08-2022 RBC (Bld) [#/Vol] 3.69 10*6/uL 4.2-5.4 [facility] Work Phone: [phone] Blood hemoglobin measurement (mass/volume)on 05-08-2022 Hemoglobin (Bld) [Mass/Vol] 10.7 g/dL 12.0-15.0 [facility] Work Phone: Blood lymphocytes/100 leukoc yteson 05-08-2022 Lymphocytes/100 WBC (Bld) 10.3 % 19-41 [facility] Work Phone: Blood monocytes/100 leukocyt eson 05-08-2022 Monocytes/100 WBC (Bld) 7.7 % 0-10 [facility] Work Phone: Blood platelet mean volumeon 05-08-2022 Platelet mean volume (Bld) [Entitic vol] 10.5 fL 6.2-12.0 [facility] Work Phone: [phone] Determination of erythrocyte mean corpuscular volume (MCV)on 05-08-2022 MCV (RBC) [Entitic vol] 93.0 fL 81-99 [facility] Work Phone: Hematocrit Auto (Bld) [Volum e fraction]on 05-08-2022 Hematocrit (Bld) [Volume fraction] 34.3 % 37-47 [facility] Work Phone: [phone] INR in Blood by Coagulation assayon 05-08-2022 INR Coag (Bld) [Relative time] 1.1 {INR} [facility] Work Phone: [phone] Ketones Test strip Ql (U)on 05-08-2022 Ketones Ql (U) Negative Negative [facility] Work Phone: [phone] Laboratory - Chemistry and C hemistry - challengeon 05-08-2022 ALP [Catalytic activity/Vol] 80 U/L 45-117 [facility] Work Phone: ALT [Catalytic activity/Vol] 14 U/L 13-56 [facility] Work Phone: [phone] CO2 [Moles/Vol] 28.0 mmol/L 21.0-32.0 [facility] Work Phone: [phone] Globulin (S) [Mass/Vol] 4.1 g/dL 2.2-4.2 [facility] Work Phone: [phone] Natriuretic peptide B (Bld) [Mass/Vol] 131.4 pg/mL 0-100 [facility] Work Phone: Urea nitrogen/Creatinine [Mass ratio] 22.7 mg/mg 10-20 [facility] Work Phone: Laboratory - Coagulationon 0 05-08-2022 aPTT Coag (Bld) [Time] 33.6 s 24.1-36.2 [facility] Work Phone: PT Coag (PPP) [Time] 13.7 s 11.7-14.9 [facility]: [phone] Laboratory - Hematology and Cell countson 05-08-2022 Erythrocyte distribution width (RBC) [Entitic vol] 45.5 fL 35.1-43.9 [facility] Work Phone: Erythrocyte distribution width (RBC) [Ratio] 13.3 % 11.6-14.6 [facility] Work Phone: [phone] Immature granulocytes/100 WBC (Bld) 0.400 % 0.0-0.9 [facility] Work Phone: [phone] Comment on above: IG% - Immature Granu locytes (promyelocytes, myelocytes and metamyelocytes) > 1% indicates that a LEFT SHIFT is Present. MCH (RBC) [Entitic mass] 29.0 pg 27.0-32.0 [facility] Work Phone: Nucleated RBC/100 WBC (Bld) [Ratio] 0 % 0-5 [facility] Work Phone: MCHC Auto (RBC) [Mass/Vol]on 05-08-2022 MCHC (RBC) [Mass/Vol] 31.2 g/dL 32-36 [facility] Work Phone: Mucus LM Ql (Urine sed)on Mucus Ql (Urine sed) 0 SEEN /hpf [facility] Work Phone: Nitrite Test strip Ql (U)on 05-08-2022 Nitrite Ql (U) Negative Negative [facility] Work Phone: No Panel Informationon 05-08 Estimated Creatinine Clearance Calc 23.20 ml/min [facility] Work Phone: Estimated GFR (MDRD) Amer 49 mL/min >60 [facility] Work Phone: Comment on above: GFR Calc Estimated GFR (MDRD) Non-Af Amer 41 mL/min >60 [facility] Work Phone: Comment on above: Non- GFR Calc Troponin I High Sensitivity 8 pg/mL 3.0-54.0 [facility] Work Phone: Comment on above: Please Note: New Jessica t Units and Gender Specific Reference Ranges. For more information see Policy Stat Procedure [place] High Sensitivity Troponin (TNIH) and attachments. Platelets bldon 05-08-2022 Platelets (Bld) [#/Vol] 190 10*3/uL 150-450 [facility] Work Phone: Protein Test strip Ql (U)on 05-08-2022 Protein Ql (U) Negative Negative [facility] Work Phone: Serum or plasma albumin lakeisha urement (mass/volume)on 05-08-2022 Albumin [Mass/Vol] 3.2 g/dL 3.2-5.0 [facility] Work Phone: Serum or plasma albumin/glob ulin mass ratioon 05-08-2022 Albumin/Globulin [Mass ratio] 0.8 {ratio} 0.9-2.4 [facility] [facility] Work Phone: Serum or plasma calcium lakeisha urement (mass/volume)on 05-08-2022 Calcium [Mass/Vol] 9.2 mg/dL 8.5-10.1 [facility] Work Phone: Serum or plasma creatinine m easurement (mass/volume)on 05-08-2022 Creatinine [Mass/Vol] 1.32 mg/dL 0.55-1.02 [facility] Work Phone: Comment on above: The validity of the calculated GFR & GFRAA in patients over 70 years has not been determined. Clinical correlation is essential. Serum or plasma urea nitroge n measurement (mass/volume)on 05-08-2022 Urea nitrogen [Mass/Vol] 30 mg/dL 7-18 [facility] Work Phone: Squamous epithelial cells de tection in urine sediment by light microscopyon 05-08-2022 Epithelial cells.squamous LM Ql (Urine sed) 0-5 SEEN /hpf 5-10 [facility] Work Phone: Thin prep Papanicolaou smear with manual screeningon 05-08-2022 Thin prep Papanicolaou smear with manual screening 13 U/L 15-37 [facility] Work Phone: Thin prep Papanicolaou smear with manual screening 6 5-15 [facility] Work Phone: Urine blood detectionon 04-26 RBC Ql (U) Negative Negative [facility] Work Phone: RBC Ql (U) 0-5 SEEN /hpf 0-5 [facility] Work Phone: Urine clarityon 05-08-2022 Clarity (U) Clear Clear [facility] Work Phone: Urine color determinationon 05-08-2022 Color (U) Yellow Yellow [facility] Work Phone: Urine glucose detectionon Glucose Ql (U) Normal mg/dl Normal [facility] Work Phone: Urine leukocyte esterase det ection by dipstickon 05-08-2022 Leukocyte esterase Test strip Ql (U) Negative Negative [facility] Work Phone: Urine pHon 05-08-2022 pH (U) 6.5 [pH] 5.0 - 8.0 [facility] Work Phone: Urine sediment bacteria coun t by microscopy (number/high power field)on 05-08-2022 Bacteria LM.HPF (Urine sed) [#/Area] RARE /hpf None Seen [facility] Work Phone: [phone] Urine specific gravity measu rementon 05-08-2022 Specific gravity (U) [Rel density] 1.010 1.002-1.03 0 [facility] Work Phone: Urobilinogen Auto test strip Ql (U)on 05-08-2022 Urobilinogen Ql (U) Normal mg/dl Normal [facility] Work Phone: Absolute lymphocyte counton 03-19-2022 Lymphocytes Auto (Unsp spec) [#/Vol] 1.22 10*3/uL 0.83-4.51 [facility] Work Phone: Basophil percentageon 2021 Basophils/100 WBC (Bld) 0.6 % 0-1 [facility] Work Phone: Bilirubin [Mass/Vol] 0.30 mg/dL 0.20-1.00 [facility] Work Phone: Comment on above: For patients on eltr ombopag therapy, use of Dimension Alden TBIL is not recommended. Chloride [Moles/Vol] 107 mmol/L 98-107 [facility] Work Phone: Eosinophils/100 WBC (Bld) 2.2 % 0-5 [facility] Work Phone: Glucose [Mass/Vol] 87 mg/dL 74-106 [facility] Work Phone: Neutrophils (Bld) [#/Vol] 6.1 10*3/uL 2.0-7.7 [facility] Work Phone: Neutrophils/100 WBC (Bld) 74.2 % 47-70 [facility] Work Phone: Potassium [Moles/Vol] 5.1 mmol/L 3.5-5.1 [facility] Work Phone: Protein [Mass/Vol] 7.8 g/dL 6.4-8.2 [facility] Work Phone: Sodium [Moles/Vol] 136 mmol/L 136-145 [facility] Work Phone: WBC (Bld) [#/Vol] 8.2 10*3/uL 4.4-11.0 [facility] Work Phone: Blood erythrocytes count (nu mber/volume)on 03-19-2022 RBC (Bld) [#/Vol] 3.73 10*6/uL 4.2-5.4 [facility] Work Phone: [phone] Blood hemoglobin measurement (mass/volume)on 03-19-2022 Hemoglobin (Bld) [Mass/Vol] 11.2 g/dL 12.0-15.0 [facility] Work Phone: Blood lymphocytes/100 leukoc yteson 03-19-2022 Lymphocytes/100 WBC (Bld) 15.0 % 19-41 [facility] Work Phone: Blood monocytes/100 leukocyt eson 03-19-2022 Monocytes/100 WBC (Bld) 7.6 % 0-10 [facility] Work Phone: Blood platelet mean volumeon 03-19-2022 Platelet mean volume (Bld) [Entitic vol] 10.3 fL 6.2-12.0 [facility] Work Phone: [phone] Determination of erythrocyte mean corpuscular volume (MCV)on 03-19-2022 MCV (RBC) [Entitic vol] 93.8 fL 81-99 [facility] Work Phone: Hematocrit Auto (Bld) [Volum e fraction]on 03-19-2022 Hematocrit (Bld) [Volume fraction] 35.0 % 37-47 [facility] Work Phone: [phone] Laboratory - Chemistry and C hemistry - challengeon 03-19-2022 Albumin [Mass/Vol] 3.7 g/dL 2.9-4.4 [facility] Work Phone: ALP [Catalytic activity/Vol] 80 U/L 45-117 [facility] Work Phone: ALT [Catalytic activity/Vol] 17 U/L 13-56 [facility] Work Phone: CO2 [Moles/Vol] 24.0 mmol/L 21.0-32.0 [facility] Work Phone: [phone] Globulin (S) [Mass/Vol] 4.4 g/dL 2.2-4.2 [facility] Work Phone: [phone] Urea nitrogen/Creatinine [Mass ratio] 32.5 mg/mg 10-20 [facility] Work Phone: Laboratory - Hematology and Cell countson 03-19-2022 Erythrocyte distribution width (RBC) [Entitic vol] 46.2 fL 35.1-43.9 [facility] Work Phone: [phone] Erythrocyte distribution width (RBC) [Ratio] 13.4 % 11.6-14.6 [facility] Work Phone: [phone] Immature granulocytes/100 WBC (Bld) 0.400 % 0.0-0.9 [facility] Work Phone: [phone] Comment on above: IG% - Immature Granu locytes (promyelocytes, myelocytes and metamyelocytes) > 1% indicates that a LEFT SHIFT is Present. MCH (RBC) [Entitic mass] 30.0 pg 27.0-32.0 [facility] Work Phone: [phone] Nucleated RBC/100 WBC (Bld) [Ratio] 0 % 0-5 [facility] Work Phone: [phone] MCHC Auto (RBC) [Mass/Vol]on 03-19-2022 MCHC (RBC) [Mass/Vol] 32.0 g/dL 32-36 [facility] Work Phone: [phone] No Panel Informationon 03-19 Addendum Document Comment . [facility] Work Phone: Comment on above: Faint band in gamma region suspicious for monoclonalimmunoglobulin. This band may represent a benign spike asseen in older people or could be a paraprotein as seen inMultiple Myeloma, Waldenstrom's Macroglobulinemia orLymphoma. Depending on clinical circumstances, furtherdiagnostic studies may include serum immunofixation orserum free light chain quantitation.Performed at: [facility] [id number] Director: Zane Barroso PhD, Phone: [phone] [id number] 0.2 g/dL 0.0-0.4 [facility] Work Phone: [id number]-[id number] 0.8 g/dL 0.4-1.0 [facility] Work Phone: Estimated GFR (MDRD) Amer 40 mL/min >60 [facility] Work Phone: Comment on above: GFR Calc Estimated GFR (MDRD) Non-Af Amer 33 mL/min >60 [facility] Work Phone: Comment on above: Non- GFR Calc Gamma Globulins 1.6 g/dL 0.4-1.8 [facility] Work Phone: Platelets bldon 03-19-2022 Platelets (Bld) [#/Vol] 228 10*3/uL 150-450 [facility] Work Phone: Protein Fractions Elph [Inte rp]on 03-19-2022 Protein Fractions [Interp] Comment . [facility] Work Phone: Comment on above: Protein electrophore sis scan will follow via computer,mail, or leather currier delivery. Serum albumin to globulin ra jean-paul by protein electrophoresison 03-19-2022 Albumin/Globulin Elph [Mass ratio] 1.0 0.7-1.7 [facility] Work Phone: Serum globulin measurement ( mass/volume)on 03-19-2022 Globulin (S) [Mass/Vol] 3.7 g/dL 2.2-3.9 [facility] Work Phone: Serum or plasma C reactive p rotein measurement (mass/volume)on 03-19-2022 CRP [Mass/Vol] mg/L 0.0-3.0 [facility] Work Phone: Comment on above: C-Reactive Protein ( CRP) provides useful information for thediagnosis, therapy and monitoring of inflammatory processesand associated diseases. For the evaluation of Relative Riskfor Cardiovascular Disease, a High Sensitivity CRP (HSCRP)should be ordered. Serum or plasma albumin lakeisha urement (mass/volume)on 03-19-2022 Albumin [Mass/Vol] 3.4 g/dL 3.2-5.0 [facility] Work Phone: Serum or plasma albumin/glob ulin mass ratioon 03-19-2022 Albumin/Globulin [Mass ratio] 0.8 {ratio} 0.9-2.4 [facility] Work Phone: Serum or plasma beta globuli n measurement by electrophoresis (mass/volume)on 03-19-2022 Beta globulin Elph [Mass/Vol] 1.1 g/dL 0.7-1.3 [facility] Work Phone: Serum or plasma calcium lakeisha urement (mass/volume)on 03-19-2022 Calcium [Mass/Vol] 9.3 mg/dL 8.5-10.1 [facility] Work Phone: Serum or plasma creatinine m easurement (mass/volume)on 03-19-2022 Creatinine [Mass/Vol] 1.60 mg/dL 0.55-1.02 [facility] Work Phone: Comment on above: The validity of the calculated GFR & GFRAA in patients over 70 years has not been determined. Clinical correlation is essential. Serum or plasma urea nitroge n measurement (mass/volume)on 03-19-2022 Urea nitrogen [Mass/Vol] 52 mg/dL 7-18 [facility] Work Phone: Thin prep Papanicolaou smear with manual screeningon 03-19-2022 Thin prep Papanicolaou smear with manual screening 14 U/L 15-37 [facility] Work Phone: Thin prep Papanicolaou smear with manual screening 5 5-15 [facility] Work Phone: Thin prep Papanicolaou smear with manual screening See comment [facility] Work Phone: [phone] Comment on above: ASYMMETRICAL GAMMA Total protein bloodon 2021 Protein [Mass/Vol] 7.4 g/dL 6.0-8.5 [facility] Work Phone: [phone] Absolute lymphocyte counton 01-18-2022 Lymphocytes Auto (Unsp spec) [#/Vol] 0.89 10*3/uL 0.83-4.51 [facility] Work Phone: Basophil percentageon 2021 Basophils/100 WBC (Bld) 0.0 % 0-1 [facility] Work Phone: Chloride [Moles/Vol] 104 mmol/L 98-107 [facility] Work Phone: Eosinophils/100 WBC (Bld) 1.3 % 0-5 [facility] Work Phone: Glucose [Mass/Vol] 92 mg/dL 74-106 [facility] Work Phone: Neutrophils (Bld) [#/Vol] 1.7 10*3/uL 2.0-7.7 [facility] Work Phone: Neutrophils/100 WBC (Bld) 55.8 % 47-70 [facility] Work Phone: Potassium [Moles/Vol] 4.7 mmol/L 3.5-5.1 [facility] Work Phone: [phone] Comment on above: Moderate Hemolysis, Result may be falsely increased. Sodium [Moles/Vol] 137 mmol/L 136-145 [facility] Work Phone: WBC (Bld) [#/Vol] 3.0 10*3/uL 4.4-11.0 [facility] Work Phone: Blood erythrocytes count (nu mber/volume)on 01-18-2022 RBC (Bld) [#/Vol] 4.02 10*6/uL 4.2-5.4 [facility] Work Phone: [phone] Blood hemoglobin measurement (mass/volume)on 01-18-2022 Hemoglobin (Bld) [Mass/Vol] 11.5 g/dL 12.0-15.0 [facility] Work Phone: Blood lymphocytes/100 leukoc yteson 01-18-2022 Lymphocytes/100 WBC (Bld) 29.6 % 19-41 [facility] Work Phone: Blood monocytes/100 leukocyt eson 01-18-2022 Monocytes/100 WBC (Bld) 13.0 % 0-10 [facility] Work Phone: Blood platelet mean volumeon 01-18-2022 Platelet mean volume (Bld) [Entitic vol] 10.5 fL 6.2-12.0 [facility] Work Phone: [phone] Determination of erythrocyte mean corpuscular volume (MCV)on 01-18-2022 MCV (RBC) [Entitic vol] 88.8 fL 81-99 [facility] Work Phone: [phone] Hematocrit Auto (Bld) [Volum e fraction]on 01-18-2022 Hematocrit (Bld) [Volume fraction] 35.7 % 37-47 [facility] Work Phone: [phone] Laboratory - Chemistry and C hemistry - challengeon 01-18-2022 CO2 [Moles/Vol] 27.0 mmol/L 21.0-32.0 [facility] Work Phone: [phone] Urea nitrogen/Creatinine [Mass ratio] 30.2 mg/mg 10-20 [facility] Work Phone: Laboratory - Hematology and Cell countson 01-18-2022 Erythrocyte distribution width (RBC) [Entitic vol] 45.8 fL 35.1-43.9 [facility] Work Phone: [phone] Erythrocyte distribution width (RBC) [Ratio] 14.0 % 11.6-14.6 [facility] Work Phone: [phone] Immature granulocytes/100 WBC (Bld) 0.300 % 0.0-0.9 [facility] Work Phone: Comment on above: IG% - Immature Granu locytes (promyelocytes, myelocytes and metamyelocytes) > 1% indicates that a LEFT SHIFT is Present. MCH (RBC) [Entitic mass] 28.6 pg 27.0-32.0 [facility] Work Phone: Nucleated RBC/100 WBC (Bld) [Ratio] 0 % 0-5 [facility] Work Phone: MCHC Auto (RBC) [Mass/Vol]on 01-18-2022 MCHC (RBC) [Mass/Vol] 32.2 g/dL 32-36 [facility] Work Phone: No Panel Informationon 01-18 Estimated Creatinine Clearance Calc 18.90 ml/min [facility] Work Phone: Estimated GFR (MDRD) Amer 39 mL/min >60 [facility] Work Phone: Comment on above: GFR Calc Estimated GFR (MDRD) Non-Af Amer 32 mL/min >60 [facility] Work Phone: Comment on above: Non- GFR Calc Platelets bldon 01-18-2022 Platelets (Bld) [#/Vol] 172 10*3/uL 150-450 [facility] Work Phone: Serum or plasma calcium lakeisha urement (mass/volume)on 01-18-2022 Calcium [Mass/Vol] 9.4 mg/dL 8.5-10.1 [facility] Work Phone: Serum or plasma creatinine m easurement (mass/volume)on 01-18-2022 Creatinine [Mass/Vol] 1.62 mg/dL 0.55-1.02 [facility] Work Phone: Comment on above: The validity of the calculated GFR & GFRAA in patients over 70 years has not been determined. Clinical correlation is essential. Serum or plasma urea nitroge n measurement (mass/volume)on 01-18-2022 Urea nitrogen [Mass/Vol] 49 mg/dL 7-18 [facility] Work Phone: Thin prep Papanicolaou smear with manual screeningon 01-18-2022 Thin prep Papanicolaou smear with manual screening 6 5-15 [facility] Work Phone: Absolute lymphocyte counton 01-16-2022 Lymphocytes Auto (Unsp spec) [#/Vol] 0.70 10*3/uL 0.83-4.51 [facility] Work Phone: Basophil percentageon 2021 Basophils/100 WBC (Bld) 0.3 % 0-1 [facility] Work Phone: Chloride [Moles/Vol] 105 mmol/L 98-107 [facility] Work Phone: Eosinophils/100 WBC (Bld) 0.9 % 0-5 [facility] Work Phone: Glucose [Mass/Vol] 91 mg/dL 74-106 [facility] Work Phone: Neutrophils (Bld) [#/Vol] 2.5 10*3/uL 2.0-7.7 [facility] Work Phone: Neutrophils/100 WBC (Bld) 70.5 % 47-70 [facility] Work Phone: Potassium [Moles/Vol] 4.7 mmol/L 3.5-5.1 [facility] Work Phone: Comment on above: Slight Hemolysis, Re sult may be falsely increased. Sodium [Moles/Vol] 136 mmol/L 136-145 [facility] Work Phone: WBC (Bld) [#/Vol] 3.5 10*3/uL 4.4-11.0 [facility] Work Phone: Blood erythrocytes count (nu mber/volume)on 01-16-2022 RBC (Bld) [#/Vol] 4.41 10*6/uL 4.2-5.4 [facility] Work Phone: Blood hemoglobin measurement (mass/volume)on 01-16-2022 Hemoglobin (Bld) [Mass/Vol] 12.7 g/dL 12.0-15.0 [facility] Work Phone: Blood lymphocytes/100 leukoc yteson 01-16-2022 Lymphocytes/100 WBC (Bld) 20.2 % 19-41 [facility] Work Phone: Blood monocytes/100 leukocyt eson 01-16-2022 Monocytes/100 WBC (Bld) 7.8 % 0-10 [facility] Work Phone: Blood platelet mean volumeon 01-16-2022 Platelet mean volume (Bld) [Entitic vol] 10.4 fL 6.2-12.0 [facility] Work Phone: [phone] Determination of erythrocyte mean corpuscular volume (MCV)on 01-16-2022 MCV (RBC) [Entitic vol] 90.0 fL 81-99 [facility] Work Phone: [phone] Hematocrit Auto (Bld) [Volum e fraction]on 01-16-2022 Hematocrit (Bld) [Volume fraction] 39.7 % 37-47 [facility] Work Phone: [phone] Laboratory - Chemistry and C hemistry - challengeon 01-16-2022 CO2 [Moles/Vol] 26.0 mmol/L 21.0-32.0 [facility] Work Phone: [phone] Natriuretic peptide B (Bld) [Mass/Vol] 168.5 pg/mL 0-100 [facility] Work Phone: [phone] Urea nitrogen/Creatinine [Mass ratio] 25.4 mg/mg 10-20 [facility] Work Phone: Laboratory - Hematology and Cell countson 01-16-2022 Erythrocyte distribution width (RBC) [Entitic vol] 46.9 fL 35.1-43.9 [facility] Work Phone: [phone] Erythrocyte distribution width (RBC) [Ratio] 14.0 % 11.6-14.6 [facility] Work Phone: [phone] Immature granulocytes/100 WBC (Bld) 0.300 % 0.0-0.9 [facility] Work Phone: Comment on above: IG% - Immature Granu locytes (promyelocytes, myelocytes and metamyelocytes) > 1% indicates that a LEFT SHIFT is Present. MCH (RBC) [Entitic mass] 28.8 pg 27.0-32.0 [facility] Work Phone: Nucleated RBC/100 WBC (Bld) [Ratio] 0 % 0-5 [facility] Work Phone: MCHC Auto (RBC) [Mass/Vol]on 01-16-2022 MCHC (RBC) [Mass/Vol] 32.0 g/dL 32-36 [facility] Work Phone: No Panel Informationon 01-16 Estimated Creatinine Clearance Calc 48.89 ml/min [facility] Work Phone: Estimated GFR (MDRD) Amer 56 mL/min >60 [facility] Work Phone: Comment on above: GFR Calc Estimated GFR (MDRD) Non-Af Amer 46 mL/min >60 [facility] Work Phone: Comment on above: Non- GFR Calc Troponin I High Sensitivity 10 pg/mL 3.0-54.0 [facility] Work Phone: Comment on above: Please Note: New Jessica t Units and Gender Specific Reference Ranges. For more information see Policy Stat Procedure Alden High Sensitivity Troponin (TNIH) and attachments. SARS-CoV-2 & FLU Antigen (Rapid) SARS-CoV-2 (COVID 19) [facility] Work Phone: Platelets bldon 01-16-2022 Platelets (Bld) [#/Vol] 166 10*3/uL 150-450 [facility] Work Phone: Serum or plasma calcium lakeisha urement (mass/volume)on 01-16-2022 Calcium [Mass/Vol] 9.6 mg/dL 8.5-10.1 [facility] Work Phone: Serum or plasma creatinine m easurement (mass/volume)on 01-16-2022 Creatinine [Mass/Vol] 1.18 mg/dL 0.55-1.02 [facility] Work Phone: Comment on above: The validity of the calculated GFR & GFRAA in patients over 70 years has not been determined. Clinical correlation is essential. Serum or plasma urea nitroge n measurement (mass/volume)on 01-16-2022 Urea nitrogen [Mass/Vol] 30 mg/dL 7-18 [facility] Work Phone: Thin prep Papanicolaou smear with manual screeningon 01-16-2022 Thin prep Papanicolaou smear with manual screening 5 5-15 [facility] Work Phone: [phone] Absolute lymphocyte counton 12-25-2021 Lymphocytes Auto (Unsp spec) [#/Vol] 0.82 10*3/uL 0.83-4.51 [facility] Work Phone: [phone] Basophil percentageon 2021 Basophils/100 WBC (Bld) 0.5 % 0-1 [facility] Work Phone: [phone] Bilirubin [Mass/Vol] 0.50 mg/dL 0.20-1.00 [facility] Work Phone: Comment on above: For patients on eltr ombopag therapy, use of Dimension [place] TBIL is not recommended. Chloride [Moles/Vol] 104 mmol/L 98-107 [facility] Work Phone: [phone] Eosinophils/100 WBC (Bld) 2.3 % 0-5 [facility] Work Phone: [phone] Glucose [Mass/Vol] 94 mg/dL 74-106 [facility] Work Phone: [phone] Neutrophils (Bld) [#/Vol] 4.1 10*3/uL 2.0-7.7 [facility] Work Phone: Neutrophils/100 WBC (Bld) 71.4 % 47-70 [facility] Work Phone: [phone] Potassium [Moles/Vol] 4.0 mmol/L 3.5-5.1 [facility] Work Phone: [phone] Protein [Mass/Vol] 7.4 g/dL 6.4-8.2 [facility] Work Phone: Sodium [Moles/Vol] 138 mmol/L 136-145 [facility]: WBC (Bld) [#/Vol] 5.8 10*3/uL 4.4-11.0 [facility] Work Phone: Blood erythrocytes count (nu mber/volume)on 12-25-2021 RBC (Bld) [#/Vol] 4.21 10*6/uL 4.2-5.4 [facility]: [phone] Blood hemoglobin measurement (mass/volume)on 12-25-2021 Hemoglobin (Bld) [Mass/Vol] 11.9 g/dL 12.0-15.0 [facility] Work Phone: Blood lymphocytes/100 leukoc yteson 12-25-2021 Lymphocytes/100 WBC (Bld) 14.2 % 19-41 [facility] Work Phone: Blood monocytes/100 leukocyt eson 12-25-2021 Monocytes/100 WBC (Bld) 11.3 % 0-10 [facility] Work Phone: Blood platelet mean volumeon 12-25-2021 Platelet mean volume (Bld) [Entitic vol] 11.0 fL 6.2-12.0 [facility] Work Phone: [phone] Determination of erythrocyte mean corpuscular volume (MCV)on 12-25-2021 MCV (RBC) [Entitic vol] 90.3 fL 81-99 [facility] Work Phone: Hematocrit Auto (Bld) [Volum e fraction]on 12-25-2021 Hematocrit (Bld) [Volume fraction] 38.0 % 37-47 [facility] Work Phone: [phone] Laboratory - Chemistry and C hemistry - challengeon 12-25-2021 ALP [Catalytic activity/Vol] 71 U/L 45-117 [facility] Work Phone: [phone] ALT [Catalytic activity/Vol] 16 U/L 13-56 [facility] Work Phone: CO2 [Moles/Vol] 28.0 mmol/L 21.0-32.0 [facility] Work Phone: Globulin (S) [Mass/Vol] 4.0 g/dL 2.2-4.2 [facility] Work Phone: [phone] Magnesium [Mass/Vol] 2.3 mg/dL 1.6-2.6 [facility]: Natriuretic peptide B (Bld) [Mass/Vol] 140.7 pg/mL 0-100 [facility] Work Phone: [phone] Urea nitrogen/Creatinine [Mass ratio] 21.5 mg/mg 10-20 [facility] Work Phone: [phone] Laboratory - Hematology and Cell countson 12-25-2021 Erythrocyte distribution width (RBC) [Entitic vol] 48.8 fL 35.1-43.9 [facility] Work Phone: [phone] Erythrocyte distribution width (RBC) [Ratio] 14.8 % 11.6-14.6 [facility] Work Phone: [phone] Immature granulocytes/100 WBC (Bld) 0.300 % 0.0-0.9 [facility] Work Phone: [phone] Comment on above: IG% - Immature Granu locytes (promyelocytes, myelocytes and metamyelocytes) > 1% indicates that a LEFT SHIFT is Present. MCH (RBC) [Entitic mass] 28.3 pg 27.0-32.0 [facility] Work Phone: Nucleated RBC/100 WBC (Bld) [Ratio] 0 % 0-5 [facility] Work Phone: MCHC Auto (RBC) [Mass/Vol]on 12-25-2021 MCHC (RBC) [Mass/Vol] 31.3 g/dL 32-36 [facility] Work Phone: [phone] No Panel Informationon 12-25 Estimated GFR (MDRD) Amer 63 mL/min >60 [facility] Work Phone: Comment on above: GFR Calc Estimated GFR (MDRD) Non-Af Amer 52 mL/min >60 [facility] Work Phone: Comment on above: Non- GFR Calc Parathyroid Hormone (Intact) 162.9 pg/mL 18.4-80.1 [facility] Work Phone: Vitamin D 25-Hydroxy 33.8 ng/mL [facility] Work Phone: Comment on above: Vitamin D 25(OH) Sta tus Range Deficiency <20 ng/mL (50nmol/L) Insufficiency 20 - 30 ng/mL (50 - 75 nmol/L) Sufficiency 30 - 100 ng/mL (75 - 250 nmol/L) Toxicity >100 ng/mL (>250 nmol/L) Platelets bldon 12-25-2021 Platelets (Bld) [#/Vol] 192 10*3/uL 150-450 [facility] Work Phone: Serum or plasma albumin lakeisha urement (mass/volume)on 12-25-2021 Albumin [Mass/Vol] 3.4 g/dL 3.2-5.0 [facility] Work Phone: Serum or plasma albumin/glob ulin mass ratioon 12-25-2021 Albumin/Globulin [Mass ratio] 0.8 {ratio} 0.9-2.4 [facility] Work Phone: Serum or plasma calcium lakeisha urement (mass/volume)on 12-25-2021 Calcium [Mass/Vol] 9.4 mg/dL 8.5-10.1 [facility] Work Phone: Serum or plasma creatinine m easurement (mass/volume)on 12-25-2021 Creatinine [Mass/Vol] 1.07 mg/dL 0.55-1.02 [facility] Work Phone: Comment on above: The validity of the calculated GFR & GFRAA in patients over 70 years has not been determined. Clinical correlation is essential. Serum or plasma urea nitroge n measurement (mass/volume)on 12-25-2021 Urea nitrogen [Mass/Vol] 23 mg/dL 7-18 [facility] Work Phone: Thin prep Papanicolaou smear with manual screeningon 12-25-2021 Thin prep Papanicolaou smear with manual screening 19 U/L 15-37 [facility] Work Phone: Thin prep Papanicolaou smear with manual screening 6 5-15 [facility] Work Phone: Absolute lymphocyte counton 11-08-2021 Lymphocytes Auto (Unsp spec) [#/Vol] 1.36 10*3/uL 0.83-4.51 [facility] Work Phone: Basophil percentageon 2021 Basophils/100 WBC (Bld) 0.8 % 0-1 [facility] Work Phone: [phone] Bilirubin [Mass/Vol] 0.60 mg/dL 0.20-1.00 [facility] Work Phone: Comment on above: For patients on eltr ombopag therapy, use of Dimension Alden TBIL is not recommended. Chloride [Moles/Vol] 104 mmol/L 98-107 [facility] Work Phone: Eosinophils/100 WBC (Bld) 1.5 % 0-5 [facility] Work Phone: Glucose [Mass/Vol] 84 mg/dL 74-106 [facility] Work Phone: Neutrophils (Bld) [#/Vol] 5.2 10*3/uL 2.0-7.7 [facility] Work Phone: Neutrophils/100 WBC (Bld) 69.4 % 47-70 [facility] Work Phone: Potassium [Moles/Vol] 4.4 mmol/L 3.5-5.1 [facility] Work Phone: [phone] Protein [Mass/Vol] 8.4 g/dL 6.4-8.2 [facility] Work Phone: Sodium [Moles/Vol] 137 mmol/L 136-145 [facility] Work Phone: WBC (Bld) [#/Vol] 7.5 10*3/uL 4.4-11.0 [facility] Work Phone: Blood erythrocytes count (nu mber/volume)on 11-08-2021 RBC (Bld) [#/Vol] 4.64 10*6/uL 4.2-5.4 [facility]: Blood hemoglobin measurement (mass/volume)on 11-08-2021 Hemoglobin (Bld) [Mass/Vol] 13.0 g/dL 12.0-15.0 [facility] Work Phone: Blood lymphocytes/100 leukoc yteson 11-08-2021 Lymphocytes/100 WBC (Bld) 18.1 % 19-41 [facility] Work Phone: Blood monocytes/100 leukocyt eson 11-08-2021 Monocytes/100 WBC (Bld) 9.8 % 0-10 [facility] Work Phone: Blood platelet mean volumeon 11-08-2021 Platelet mean volume (Bld) [Entitic vol] 10.8 fL 6.2-12.0 [facility] Work Phone: [phone] Determination of erythrocyte mean corpuscular volume (MCV)on 11-08-2021 MCV (RBC) [Entitic vol] 88.8 fL 81-99 [facility] Work Phone: Hematocrit Auto (Bld) [Volum e fraction]on 11-08-2021 Hematocrit (Bld) [Volume fraction] 41.2 % 37-47 [facility] Work Phone: [phone] Laboratory - Chemistry and C hemistry - challengeon 11-08-2021 ALP [Catalytic activity/Vol] 78 U/L 45-117 [facility] Work Phone: ALT [Catalytic activity/Vol] 17 U/L 13-56 [facility] Work Phone: CO2 [Moles/Vol] 28.0 mmol/L 21.0-32.0 [facility] Work Phone: Globulin (S) [Mass/Vol] 4.6 g/dL 2.2-4.2 [facility] Work Phone: Urea nitrogen/Creatinine [Mass ratio] 27.5 mg/mg 10-20 [facility] Work Phone: Laboratory - Hematology and Cell countson 11-08-2021 Erythrocyte distribution width (RBC) [Entitic vol] 45.7 fL 35.1-43.9 [facility] Work Phone: Erythrocyte distribution width (RBC) [Ratio] 14.3 % 11.6-14.6 [facility] Work Phone: Immature granulocytes/100 WBC (Bld) 0.400 % 0.0-0.9 [facility] Work Phone: Comment on above: IG% - Immature Granu locytes (promyelocytes, myelocytes and metamyelocytes) > 1% indicates that a LEFT SHIFT is Present. MCH (RBC) [Entitic mass] 28.0 pg 27.0-32.0 [facility] Work Phone: Nucleated RBC/100 WBC (Bld) [Ratio] 0 % 0-5 [facility] Work Phone: MCHC Auto (RBC) [Mass/Vol]on 11-08-2021 MCHC (RBC) [Mass/Vol] 31.6 g/dL 32-36 [facility] Work Phone: No Panel Informationon 11-08 Estimated GFR (MDRD) Amer 45 mL/min >60 [facility] Work Phone: Comment on above: GFR Calc Estimated GFR (MDRD) Non-Af Amer 38 mL/min >60 [facility] Work Phone: Comment on above: Non- GFR Calc Urine Microalbumin/Creatinine Ratio TNP [facility] Work Phone: Comment on above: Test not performed Platelets bldon 11-08-2021 Platelets (Bld) [#/Vol] 218 10*3/uL 150-450 [facility] Work Phone: Serum or plasma albumin lakeisha urement (mass/volume)on 11-08-2021 Albumin [Mass/Vol] 3.8 g/dL 3.2-5.0 [facility] Work Phone: Serum or plasma albumin/glob ulin mass ratioon 11-08-2021 Albumin/Globulin [Mass ratio] 0.8 {ratio} 0.9-2.4 [facility] Work Phone: Serum or plasma calcium lakeisha urement (mass/volume)on 11-08-2021 Calcium [Mass/Vol] 10.1 mg/dL 8.5-10.1 [facility] Work Phone: Serum or plasma creatinine m easurement (mass/volume)on 11-08-2021 Creatinine [Mass/Vol] 1.42 mg/dL 0.55-1.02 [facility] Work Phone: Comment on above: The validity of the calculated GFR & GFRAA in patients over 70 years has not been determined. Clinical correlation is essential. Serum or plasma urea nitroge n measurement (mass/volume)on 11-08-2021 Urea nitrogen [Mass/Vol] 39 mg/dL 7-18 [facility] Work Phone: Thin prep Papanicolaou smear with manual screeningon 11-08-2021 Thin prep Papanicolaou smear with manual screening 19 U/L 15-37 [facility] Work Phone: Thin prep Papanicolaou smear with manual screening 5 5-15 [facility] Work Phone: Thin prep Papanicolaou smear with manual screening < 5.0 mg/L NO RANGE EST. [facility] Work Phone: Urine creatinine measurement (mass/volume)on 11-08-2021 Creatinine (U) [Mass/Vol] 35.80 mg/dL NO RANGE EST. [facility] Work Phone: Absolute lymphocyte counton 10-24-2021 Lymphocytes Auto (Unsp spec) [#/Vol] 1.26 10*3/uL 0.83-4.51 [facility] Work Phone: Basophil percentageon 2021 Basophils/100 WBC (Bld) 0.6 % 0-1 [facility] Work Phone: Bilirubin [Mass/Vol] 0.30 mg/dL 0.20-1.00 [facility] Work Phone: Comment on above: For patients on eltr ombopag therapy, use of Dimension [place] TBIL is not recommended. Chloride [Moles/Vol] 103 mmol/L 98-107 [facility] Work Phone: Eosinophils/100 WBC (Bld) 1.6 % 0-5 [facility] Work Phone: Glucose [Mass/Vol] 89 mg/dL 74-106 [facility] Work Phone: Neutrophils (Bld) [#/Vol] 4.1 10*3/uL 2.0-7.7 [facility] Work Phone: Neutrophils/100 WBC (Bld) 64.7 % 47-70 [facility] Work Phone: Potassium [Moles/Vol] 3.4 mmol/L 3.5-5.1 [facility] Work Phone: Protein [Mass/Vol] 6.6 g/dL 6.4-8.2 [facility] Work Phone: Sodium [Moles/Vol] 137 mmol/L 136-145 [facility] Work Phone: WBC (Bld) [#/Vol] 6.3 10*3/uL 4.4-11.0 [facility] Work Phone: Blood erythrocytes count (nu mber/volume)on 10-24-2021 RBC (Bld) [#/Vol] 3.99 10*6/uL 4.2-5.4 [facility] Work Phone: Blood hemoglobin measurement (mass/volume)on 10-24-2021 Hemoglobin (Bld) [Mass/Vol] 11.2 g/dL 12.0-15.0 [facility] Work Phone: Blood lymphocytes/100 leukoc yteson 10-24-2021 Lymphocytes/100 WBC (Bld) 19.9 % 19-41 [facility] Work Phone: Blood monocytes/100 leukocyt eson 10-24-2021 Monocytes/100 WBC (Bld) 12.7 % 0-10 [facility] Work Phone: Blood platelet mean volumeon 10-24-2021 Platelet mean volume (Bld) [Entitic vol] 11.0 fL 6.2-12.0 [facility] Work Phone: [phone] Determination of erythrocyte mean corpuscular volume (MCV)on 10-24-2021 MCV (RBC) [Entitic vol] 88.5 fL 81-99 [facility] Work Phone: [phone] Hematocrit Auto (Bld) [Volum e fraction]on 10-24-2021 Hematocrit (Bld) [Volume fraction] 35.3 % 37-47 [facility] Work Phone: [phone] Laboratory - Chemistry and C hemistry - challengeon 10-24-2021 ALP [Catalytic activity/Vol] 69 U/L 45-117 [facility] Work Phone: [phone] ALT [Catalytic activity/Vol] 20 U/L 13-56 [facility] Work Phone: [phone] CO2 [Moles/Vol] 28.0 mmol/L 21.0-32.0 [facility] Work Phone: [phone] Globulin (S) [Mass/Vol] 3.9 g/dL 2.2-4.2 [facility] Work Phone: [phone] Urea nitrogen/Creatinine [Mass ratio] 21.5 mg/mg 10-20 [facility] Work Phone: [phone] Laboratory - Hematology and Cell countson 10-24-2021 Erythrocyte distribution width (RBC) [Entitic vol] 46.7 fL 35.1-43.9 [facility] Work Phone: Erythrocyte distribution width (RBC) [Ratio] 14.5 % 11.6-14.6 [facility] Work Phone: Immature granulocytes/100 WBC (Bld) 0.500 % 0.0-0.9 [facility] Work Phone: Comment on above: IG% - Immature Granu locytes (promyelocytes, myelocytes and metamyelocytes) > 1% indicates that a LEFT SHIFT is Present. MCH (RBC) [Entitic mass] 28.1 pg 27.0-32.0 [facility] Work Phone: Nucleated RBC/100 WBC (Bld) [Ratio] 0 % 0-5 [facility] Work Phone: MCHC Auto (RBC) [Mass/Vol]on 10-24-2021 MCHC (RBC) [Mass/Vol] 31.7 g/dL 32-36 [facility] Work Phone: No Panel Informationon 10-24 Estimated Creatinine Clearance Calc 59.01 ml/min [facility] Work Phone: Estimated GFR (MDRD) Amer 89 mL/min >60 [facility] Work Phone: Comment on above: GFR Calc Estimated GFR (MDRD) Non-Af Amer 74 mL/min >60 [facility] Work Phone: Comment on above: Non- GFR Calc Platelets bldon 10-24-2021 Platelets (Bld) [#/Vol] 164 10*3/uL 150-450 [facility] Work Phone: Serum or plasma albumin lakeisha urement (mass/volume)on 10-24-2021 Albumin [Mass/Vol] 2.7 g/dL 3.2-5.0 [facility] Work Phone: Serum or plasma albumin/glob ulin mass ratioon 10-24-2021 Albumin/Globulin [Mass ratio] 0.7 {ratio} 0.9-2.4 [facility] Work Phone: Serum or plasma calcium lakeisha urement (mass/volume)on 10-24-2021 Calcium [Mass/Vol] 8.6 mg/dL 8.5-10.1 [facility] Work Phone: Serum or plasma creatinine m easurement (mass/volume)on 10-24-2021 Creatinine [Mass/Vol] 0.79 mg/dL 0.55-1.02 [facility] Work Phone: Comment on above: The validity of the calculated GFR & GFRAA in patients over 70 years has not been determined. Clinical correlation is essential. Serum or plasma urea nitroge n measurement (mass/volume)on 10-24-2021 Urea nitrogen [Mass/Vol] 17 mg/dL 7-18 [facility] Work Phone: Thin prep Papanicolaou smear with manual screeningon 10-24-2021 Thin prep Papanicolaou smear with manual screening 20 U/L 15-37 [facility] Work Phone: Thin prep Papanicolaou smear with manual screening 6 5-15 [facility] Work Phone: Basophil percentageon 2021 Cholesterol [Mass/Vol] 152 mg/dL <200 [facility] Work Phone: Comment on above: <200 mg/dL Desirable 200-240 mg/dL Borderline >240 mg/dL High Risk Triglyceride [Mass/Vol] 98 mg/dL [facility] Work Phone: Comment on above: The drugs N-Acetylcy steine and Metamizole may falsely depress this assay.Serum Triglycerides Reference Interval Normal <150 mg/dL Borderline high 150 - 199 mg/dL High 200 - 499 mg/dL Very High > or = 500 mg/dL Serum or plasma cholesterol in HDL measurement (mass/volume)on 10-23-2021 Cholesterol in HDL [Mass/Vol] 59 mg/dL [facility] Work Phone: Comment on above: The drugs N-Acetylcy steine and Metamizole may falsely depress this assay. Reference Range HDL <40 mg/dL Low HDL Cholesterol HDL >or= 60 mg/dL High HDL Cholesterol Serum or plasma cholesterol in VLDL measurement (mass/volume)on 10-23-2021 Cholesterol in VLDL [Mass/Vol] 20 mg/dL 5-40 [facility] Work Phone: Serum or plasma low density lipoprotein (LDL) cholesterol measurement (mass/volume)on 10-23-2021 Cholesterol in LDL [Mass/Vol] 73 mg/dL 0-130 [facility] Work Phone: Whole blood hemoglobin A1c/t otal hemoglobin ratio (mass fraction)on 10-23-2021 HbA1c (Bld) [Mass fraction] 5.5 % 3.8-5.6 [facility] Work Phone: Comment on above: Normal < 5.7 % Predi abetic 5.7 - 6.4 % Diabetic >or= 6.5 % Please note range changes. Basophil percentageon 2021 Lactate [Moles/Vol] 1.6 mmol/L 0.4-2.0 [facility] Work Phone: INR in Blood by Coagulation assayon 10-22-2021 INR Coag (Bld) [Relative time] 1.1 {INR} [facility] Work Phone: Laboratory - Chemistry and C hemistry - challengeon 10-22-2021 Magnesium [Mass/Vol] 2.3 mg/dL 1.6-2.6 [facility] Work Phone: Natriuretic peptide B (Bld) [Mass/Vol] 556.4 pg/mL 0-100 [facility] Work Phone: Laboratory - Coagulationon 0 10-22-2021 aPTT Coag (Bld) [Time] 35.2 s 24.1-36.2 [facility] Work Phone: PT Coag (PPP) [Time] 13.5 s 11.7-14.9 [facility] Work Phone: Laboratory - Microbiology an d Antimicrobial susceptibilityon 10-22-2021 SARS-CoV-2 (COVID-19) RNA KEERTHI+probe Ql (Unsp spec) Not detected Not Detect [facility] Work Phone: Comment on above: Normal Reference Ran ge: Not DetectedMethod:(RT-PCR) real-time reverse transcriptase PCRLuminex RUBINA Instrument*The Food and Drug Administration (FDA) has issued an Emergency Use Authorization (EAU) for the RUBINA SARS-CoV-2 Assay for the rapid detection of the virus that causes COVID-19. This test has been validated, but the FDAs independent review of this validation is pending.*Negative [...] Nom (Bld) No growth in 5 days. [facility] Work Phone: No Panel Informationon 10-22 Troponin I High Sensitivity 2200 pg/mL 3.0-54.0 [facility] Work Phone: Comment on above: Critical Result(s) C chip SANCHEZ RN at: 21:11:28 10/22/2021 by: Zayra Livingston. Results read back by same. Please Note: New Test Units and Gender Specific Reference Ranges. For more information see Policy Stat Procedure Alden High Sensitivity Troponin (TNIH) and attachments. Streptococcus pneumoniae Antigen (M [facility] Work Phone: Respiratory Panel (PCR) [facility] Work Phone: D-Dimer Quantitative (PE/DVT) 1.50 FEU/ug/m 0.27-0.49 [facility] Work Phone: Comment on above: D-Dimer ELEVATED (>0 .49): Additional studies and clinicalassessments are indicated to conclude diagnosis of:Deep Vein Thrombosis (DVT) or Pulmonary Embolism (PE)CRITICAL VALUE VERIFIED. CALLED TO LOLI IRIZARRY10/22/21 Jose Durant.RESULTS READ BACK BY SAME . [facility] Procalcitonin [Mass/Vol] 0.23 ng/mL 0.00-0.09 [facility] Work Phone: Comment on above: A procalcitonin [...] obtained. DX CERVICAL SPINE 2 OR 3 [facility] 01-17-2018 Protein mass conc Performed at [facility] APPROVED BY: Tito Green MD [...] and C2 spinous fractures are noted Normal [facility] DX CERVICAL SPINE 2 OR 3 [facility] 09-17-2017 DX CERVICAL SPINE 2 OR 3 VIEWS Performed at [facility] APPROVED BY: Tito Green MD Exam: [...] evidence of instability on dynamic views. Normal [facility] CT THORACIC SPINE W/O CONTRA STon 08-05-2017 CT THORACIC SPINE W/O CONTRAST Performed at [facility] APPROVED BY: Elian Nava MD CT THORACIC [...] FRACTURE OF THE T6 VERTEBRAL BODY. Normal [facility] No Panel Information SARS-CoV-2 & FLU Antigen (Rapid) SARS-CoV-2 (COVID 19) [facility] Work Phone: SARS-CoV-2 & FLU Antigen (Rapid) [facility] Work Phone: Vital Signs Date Time Vital Sign Value Performing Clinician Facility 05-03-2025 13:37-0400 Body height 149.[address] Tyler Benitez MD Work Phone: [facility] 05-03-2025 13:37-0400 Body mass index (BMI) [Ratio] 36.3 kg/m2 Dr. Tyler Benitez MD Work Phone: [facility] 05-03-2025 13:37-0400 Body weight 81.[address] Tyler Benitez MD Work Phone: [facility] 05-03-2025 13:37-0400 Diastolic blood pressure 73 mm[Hg] Dr. Tyler Benitez MD Work Phone: [facility] 05-03-2025 13:37-0400 Heart rate 88 /min Dr. Tyler Benitez MD Work Phone: [facility] 05-03-2025 13:37-0400 Respiratory rate 18 /min Dr. Tyler Benitez MD Work Phone: [facility] 05-03-2025 13:37-0400 SaO2% (BldA) [Mass fraction] 96 % Dr. Tyler Benitez MD Work Phone: [facility] 05-03-2025 13:37-0400 Systolic blood pressure 137 mm[Hg] Dr. Tyler Benitez MD Work Phone: [facility] 04-08-2025 15:10-0400 Body height 152.4 cm Arya Archer MD Work Phone: [facility] Comment on above: previuos height used 04-08-2025 15:10-0400 Body mass index (BMI) [Ratio] 37.69 kg/m2 Arya Archer MD Work Phone: [facility] 04-08-2025 15:10-0400 Body temperature 98.1 [degF] Arya Archer MD Work Phone: [facility] 04-08-2025 15:10-0400 Body weight 87.54 kg Arya Archer MD Work Phone: [facility] Comment on above: previous weight used 04-08-2025 15:10-0400 Diastolic blood pressure 52 mm[Hg] Arya Archer MD Work Phone: [facility] 04-08-2025 15:10-0400 Heart rate 80 /min Arya Archer MD Work Phone: [facility] 04-08-2025 15:10-0400 Systolic blood pressure 123 mm[Hg] Arya Archer MD Work Phone: [facility] 03-02-2025 15:00-0400 Respiratory rate 18 /min Dr. Tyler Benitez MD Work Phone: [facility] 03-02-2025 15:00-0400 SaO2% (BldA) [Mass fraction] 100 % Dr. Tyler Benitez MD Work Phone: [facility] 03-02-2025 14:30-0400 Body temperature 96.9 [degF] Dr. Tyler Benitez MD Work Phone: [facility] 03-02-2025 14:30-0400 Diastolic blood pressure 96 mm[Hg] Dr. Tyler Benitez MD Work Phone: [facility] 03-02-2025 14:30-0400 Heart rate 67 /min Dr. Tyler Benitez MD Work Phone: 5(777)159-176765 [place] [address] 03-02-2025 14:30-0400 Systolic blood pressure 148 mm[Hg] Dr. Tyler Benitez MD Work Phone: [phone])916-624085 [place] [address] 03-02-2025 11:24-0400 Body mass index (BMI) [Ratio] 37.5 kg/m2 Dr. Tyler Benitez MD Work Phone: [phone])[phone] [address] 03-02-2025 11:24-0400 Body weight 84.[address] Tyler Benitez MD Work Phone: 6(755)665-727665 [place] [address] 03-02-2025 10:13-0400 Body height 149.[address] Tyler Benitez MD Work Phone: 4(630)639-580850 [address] 11-10-2024 18:51-0400 Body temperature 98 [degF] Dr. Tyler Benitez MD Work Phone: 0(759)136-396650 [address] 11-10-2024 18:51-0400 Diastolic blood pressure 74 mm[Hg] Dr. Tyler Benitez MD Work Phone: 5(057)866-021565 [place] [address] 11-10-2024 18:51-0400 Heart rate 78 /min Dr. Tyler Benitez MD Work Phone: [facility] 11-10-2024 18:51-0400 Respiratory rate 16 /min Dr. Tyler Benitez MD Work Phone: [facility] 11-10-2024 18:51-0400 SaO2% (BldA) [Mass fraction] 97 % Dr. Tyler Benitez MD Work Phone: [facility] 11-10-2024 18:51-0400 Systolic blood pressure 149 mm[Hg] Dr. Tyler Benitez MD Work Phone: [facility] 11-10-2024 17:00-0400 Inhaled oxygen flow rate 3 L/min Dr. Tyler Benitez MD Work Phone: [facility] 11-10-2024 14:21-0400 Body mass index (BMI) [Ratio] 36.4 kg/m2 Dr. Tyler Benitez MD Work Phone: [phone])380-428665 [place] [address] 11-10-2024 14:21-0400 Body weight 84.[address] Tyler Benitez MD Work Phone: 7(301)845-288265 [place] [address] 11-10-2024 14:18-0400 Body height 152.[address] Tyler Benitez MD Work Phone: 5(517)845-910965 [place] [address] 08-29-2023 16:11-0500 Body height 149.[address] Tyler Benitez Work Phone: 4(416)932-860565 [place] [address] 08-29-2023 16:11-0500 Body mass index (BMI) [Ratio] 37.3 kg/m2 Dr. Tyler Benitez Work Phone: 6(166)454-938665 [place] [address] 08-29-2023 16:11-0500 Body temperature 98.2 [degF] Dr. Tyler Benitez Work Phone: [facility] 08-29-2023 16:11-0500 Body weight 83.[address] Tyler Benitez Work Phone: [facility] 08-29-2023 16:11-0500 Diastolic blood pressure 84 mm[Hg] Dr. Tyler Benitez Work Phone: [facility] 08-29-2023 16:11-0500 Heart rate 94 /min Dr. Tyler Benitez Work Phone: [facility] 08-29-2023 16:11-0500 Respiratory rate 14 /min Dr. Tyler Benitez Work Phone: [facility] 08-29-2023 16:11-0500 SaO2% (BldA) [Mass fraction] 100 % Dr. Tyler Benitez Work Phone: [facility] 08-29-2023 16:11-0500 Systolic blood pressure 132 mm[Hg] Dr. Tyler Benitez Work Phone: [facility] 05-24-2023 08:03-0400 Body mass index (BMI) [Ratio] 36.8 kg/m2 Dr. Tyler Benitez Work Phone: [facility] 05-24-2023 08:03-0400 Body weight 82.[address] Tyler Benitez Work Phone: [facility] 05-24-2023 07:17-0400 Body height 149.[address] Tyler Benitez Work Phone: [facility] 05-24-2023 07:17-0400 Body temperature 97.5 [degF] Dr. Tyler Benitez Work Phone: [facility] 05-24-2023 07:17-0400 Diastolic blood pressure 88 mm[Hg] Dr. Tyler Benitez Work Phone: [facility] 05-24-2023 07:17-0400 Heart rate 75 /min Dr. Tyler Benitez Work Phone: [facility] 05-24-2023 07:17-0400 Respiratory rate 16 /min Dr. Tyler Benitez Work Phone: [facility] 05-24-2023 07:17-0400 SaO2% (BldA) [Mass fraction] 98 % Dr. Tyler Benitez Work Phone: [facility] 05-24-2023 07:17-0400 Systolic blood pressure 139 mm[Hg] Dr. Tyler Benitez Work Phone: [facility] 04-19-2023 16:51-0400 Body temperature 99.1 [degF] Dr. Tyler Benitez Work Phone: [facility] 04-19-2023 16:51-0400 Diastolic blood pressure 83 mm[Hg] Dr. Tyler Benitez Work Phone: [facility] 04-19-2023 16:51-0400 Heart rate 83 /min Dr. Tyler Benitez Work Phone: [facility] 04-19-2023 16:51-0400 Respiratory rate 18 /min Dr. Tyler Benitez Work Phone: [facility] 04-19-2023 16:51-0400 SaO2% (BldA) [Mass fraction] 98 % Dr. Tyler Benitez Work Phone: [facility] 04-19-2023 16:51-0400 Systolic blood pressure 153 mm[Hg] Dr. Tyler Benitez Work Phone: [facility] 04-19-2023 06:00-0400 Body mass index (BMI) [Ratio] 35.6 kg/m2 Dr. Tyler Benitez Work Phone: [facility] 04-19-2023 06:00-0400 Body weight 80.[address] Tyler Benitez Work Phone: [facility] 04-15-2023 16:08-0400 Body height 150.[address] Tyler Benitez Work Phone: [facility] 04-15-2023 15:32-0400 Body temperature 97.2 [degF] Dr. Tyler Benitez Work Phone: [facility] 04-15-2023 15:32-0400 Diastolic blood pressure 60 mm[Hg] Dr. Tyler Benitez Work Phone: [facility] 04-15-2023 15:32-0400 Heart rate 80 /min Dr. Tyler Benitez Work Phone: [facility] 04-15-2023 15:32-0400 Respiratory rate 18 /min Dr. Tyler Benitez Work Phone: [facility] 04-15-2023 15:32-0400 SaO2% (BldA) [Mass fraction] 95 % Dr. Tyler Benitez Work Phone: [facility] 04-15-2023 15:32-0400 Systolic blood pressure 152 mm[Hg] Dr. Tyler Benitez Work Phone: [facility] 04-15-2023 08:49-0400 Body height 150.[address] Tyler Benitez Work Phone: [facility] 04-05-2023 14:24-0400 Body temperature 96.2 [degF] Dr. Tyler Benitez Work Phone: [facility] 04-05-2023 14:24-0400 Diastolic blood pressure 93 mm[Hg] Dr. Tyler Benitez Work Phone: [facility] 04-05-2023 14:24-0400 Heart rate 114 /min Dr. Tyler Benitez Work Phone: [facility] 04-05-2023 14:24-0400 Respiratory rate 20 /min Dr. Tyler Benitez Work Phone: [facility] 04-05-2023 14:24-0400 SaO2% (BldA) [Mass fraction] 98 % Dr. Tyler Benitez Work Phone: [facility] 04-05-2023 14:24-0400 Systolic blood pressure 106 mm[Hg] Dr. Tyler Benitez Work Phone: [facility] 04-05-2023 00:46-0400 Diastolic blood pressure 61 mm[Hg] Dr. Tyler Benitez Work Phone: [facility] 04-05-2023 00:46-0400 Heart rate 97 /min Dr. Tyler Benitez Work Phone: [facility] 04-05-2023 00:46-0400 Systolic blood pressure 140 mm[Hg] Dr. Tyler Benitez Work Phone: [facility] 04-04-2023 22:00-0400 Respiratory rate 20 /min Dr. Tyler Benitez Work Phone: [facility] 04-04-2023 20:02-0400 Body mass index (BMI) [Ratio] 38.5 kg/m2 Dr. Tyler Benitez Work Phone: [facility] 04-04-2023 20:02-0400 Body weight 86.[address] Tyler Benitez Work Phone: [facility] 04-04-2023 19:32-0400 Body temperature 97.4 [degF] Dr. Tyler Benitez Work Phone: [facility] 04-04-2023 19:32-0400 SaO2% (BldA) [Mass fraction] 100 % Dr. Tyler Benitez Work Phone: [facility] 03-19-2023 17:00-0400 Body temperature 97.9 [degF] Dr. Tyler Benitez Work Phone: [facility] 03-19-2023 17:00-0400 Diastolic blood pressure 47 mm[Hg] Dr. Tyler Benitez Work Phone: [facility] 03-19-2023 17:00-0400 Heart rate 100 /min Dr. Tyler Benitez Work Phone: [facility] 03-19-2023 17:00-0400 Respiratory rate 18 /min Dr. Tyler Benitez Work Phone: [facility] 03-19-2023 17:00-0400 SaO2% (BldA) [Mass fraction] 100 % Dr. Tyler Benitez Work Phone: [facility] 03-19-2023 17:00-0400 Systolic blood pressure 129 mm[Hg] Dr. Tyler Benitez Work Phone: [facility] 03-18-2023 12:57-0400 Body weight [address] Tyler Benitez Work Phone: [facility] 03-18-2023 03:31-0400 Inhaled oxygen concentration 96 % Dr. Tyler Benitez Work Phone: [facility] 03-17-2023 21:58-0400 Inhaled oxygen flow rate 2 L/min Dr. Tyler Benitez Work Phone: [facility] 03-17-2023 16:03-0400 Body mass index (BMI) [Ratio] 38.2 kg/m2 Dr. Tyler Benitez Work Phone: [facility] 03-12-2023 15:33-0400 Diastolic blood pressure 77 mm[Hg] Dr. Tyler Benitze Work Phone: [facility] 03-12-2023 15:33-0400 Heart rate 65 /min Dr. Tyler Benitez Work Phone: [facility] 03-12-2023 15:33-0400 Respiratory rate 18 /min Dr. Tyler Benitez Work Phone: [facility] 03-12-2023 15:33-0400 SaO2% (BldA) [Mass fraction] 97 % Dr. Tyler Benitez Work Phone: [facility] 03-12-2023 15:33-0400 Systolic blood pressure 132 mm[Hg] Dr. Tyler Benitez Work Phone: [facility] 02-26-2023 19:00-0400 Body mass index (BMI) [Ratio] 38.5 kg/m2 Dr. Tyler Benitez Work Phone: [facility] 02-26-2023 19:00-0400 Body weight 86.[address] Tyler Benitez Work Phone: [facility] 02-26-2023 19:00-0400 SaO2% (BldA) [Mass fraction] 98 % Dr. Tyler Benitez Work Phone: [facility] 02-26-2023 18:37-0400 Body temperature 97.5 [degF] Dr. Tyler Benitez Work Phone: [facility] 02-26-2023 18:37-0400 Diastolic blood pressure 61 mm[Hg] Dr. Tyler Benitez Work Phone: [facility] 02-26-2023 18:37-0400 Heart rate 76 /min Dr. Tyler Benitez Work Phone: [facility] 02-26-2023 18:37-0400 Respiratory rate 18 /min Dr. Tyler Benitez Work Phone: [facility] 02-26-2023 18:37-0400 Systolic blood pressure 156 mm[Hg] Dr. Tyler Benitez Work Phone: [facility] 01-15-2023 22:49-0400 Diastolic blood pressure 78 mm[Hg] Dr. Tyler Benitez Work Phone: [facility] 01-15-2023 22:49-0400 Systolic blood pressure 124 mm[Hg] Dr. Tyler Benitez Work Phone: 3(470)201-310365 [place] [address] 01-15-2023 20:16-0400 Heart rate 79 /min Dr. Tyler Benitez Work Phone: 9(141)577-997185 [place] [address] 01-15-2023 20:16-0400 Respiratory rate 18 /min Dr. Tyler Benitez Work Phone: 2(397)265-839085 [place] [address] 01-15-2023 20:16-0400 SaO2% (BldA) [Mass fraction] 98 % Dr. Tyler Benitez Work Phone: 6(910)846-197565 [place] [address] 01-15-2023 18:17-0400 Body temperature 97.8 [degF] Dr. Tyler Benitez Work Phone: 1(472)276-352385 [place] [address] 01-15-2023 18:15-0400 Body mass index (BMI) [Ratio] 39.7 kg/m2 Dr. Tyler Benitez Work Phone: 3(632)389-799065 [place] [address] 01-15-2023 18:15-0400 Body weight 92.[address] Tyler Benitez Work Phone: [facility] 11-27-2022 15:25-0400 Body height 152.[address] Tyler Benitez Work Phone: 2(802)459-205365 [place] [address] 11-27-2022 15:25-0400 Body mass index (BMI) [Ratio] 37.5 kg/m2 Dr. Tyler Benitez Work Phone: 5(523)258-705965 [place] [address] 11-27-2022 15:25-0400 Body weight 87.[address] Tyler Benitez Work Phone: 7(577)137-737265 [place] [address] 11-27-2022 15:25-0400 Diastolic blood pressure 67 mm[Hg] Dr. Tyler Benitez Work Phone: [facility] 11-27-2022 15:25-0400 Heart rate 74 /min Dr. Tyler Benitez Work Phone: [facility] 11-27-2022 15:25-0400 Respiratory rate 20 /min Dr. Tyler Benitez Work Phone: [facility] 11-27-2022 15:25-0400 SaO2% (BldA) [Mass fraction] 99 % Dr. Tyler Benitez Work Phone: [facility] 11-27-2022 15:25-0400 Systolic blood pressure 134 mm[Hg] Dr. Tyler Benitez Work Phone: [facility] 05-20-2022 22:02-0400 Diastolic blood pressure 61 mm[Hg] Dr. Tyler Benitez Work Phone: [facility] Work Phone: 05-20-2022 22:02-0400 Heart rate 79 /min Dr. Tyler Benitez Work Phone: [facility] Work Phone: 05-20-2022 22:02-0400 Systolic blood pressure 147 mm[Hg] Dr. Tyler Benitez Work Phone: [facility] Work Phone: 05-20-2022 20:25-0400 Body height 152.[address] Tyler Benitez Work Phone: [facility] Work Phone: 05-20-2022 20:25-0400 Body mass index (BMI) [Ratio] 35.3 kg/m2 Dr. Tyler Benitez Work Phone: [facility] Work Phone: 05-20-2022 20:25-0400 Body temperature 97 [degF] Dr. Tyler Benitez Work Phone: [facility] Work Phone: 05-20-2022 20:25-0400 Body weight 82.[address] Tyler Benitez Work Phone: [facility] Work Phone: 05-20-2022 20:25-0400 Respiratory rate 18 /min Dr. Tyler Benitez Work Phone: [facility] Work Phone: 05-20-2022 20:25-0400 SaO2% (BldA) [Mass fraction] 100 % Dr. Tyler Benitez Work Phone: [facility] Work Phone: 05-16-2022 13:44-0400 Body mass index (BMI) [Ratio] 37 kg/m2 Dr. Tyler Benitez Work Phone: [facility] Work Phone: 05-16-2022 13:44-0400 Body weight 86.[address] Tyler Benitez Work Phone: [facility] Work Phone: 05-16-2022 13:44-0400 Diastolic blood pressure 65 mm[Hg] Dr. Tyler Benitez Work Phone: [facility] Work Phone: 05-16-2022 13:44-0400 Heart rate 62 /min Dr. Tyler Benitez Work Phone: [facility] Work Phone: 05-16-2022 13:44-0400 Respiratory rate 18 /min Dr. Tyler Benitez Work Phone: [facility] Work Phone: 05-16-2022 13:44-0400 Systolic blood pressure 142 mm[Hg] Dr. Tyler Benitez Work Phone: [facility] Work Phone: 05-08-2022 15:27-0400 Diastolic blood pressure 70 mm[Hg] Dr. Tyler Benitez Work Phone: [facility] Work Phone: 05-08-2022 15:27-0400 Heart rate 60 /min Dr. Tyler Benitez Work Phone: [facility] Work Phone: 05-08-2022 15:27-0400 Respiratory rate 18 /min Dr. Tyler Benitez Work Phone: [facility] Work Phone: 05-08-2022 15:27-0400 SaO2% (BldA) [Mass fraction] 98 % Dr. Tyler Benitez Work Phone: [facility] Work Phone: 05-08-2022 15:27-0400 Systolic blood pressure 143 mm[Hg] Dr. Tyler Benitez Work Phone: [facility] Work Phone: 05-08-2022 13:18-0400 Body height 152.[address] Tyler Benitez Work Phone: [facility] Work Phone: 05-08-2022 13:18-0400 Body mass index (BMI) [Ratio] 35.2 kg/m2 Dr. Tyler Benitez Work Phone: [facility] Work Phone: 05-08-2022 13:18-0400 Body temperature 97 [degF] Dr. Tyler Benitez Work Phone: [facility] Work Phone: 05-08-2022 13:18-0400 Body weight 81.[address] Tyler Benitez Work Phone: [facility] Work Phone: 04-16-2022 13:01-0400 Body mass index (BMI) [Ratio] 36.7 kg/m2 Dr. Tyler Benitez Work Phone: [facility] Work Phone: 04-16-2022 13:01-0400 Body weight 85.[address] Tyler Benitez Work Phone: [facility] Work Phone: 02-28-2022 14:21-0400 Body mass index (BMI) [Ratio] 35.7 kg/m2 Dr. Tyler Benitez Work Phone: [facility] Work Phone: 02-28-2022 14:21-0400 Body weight [address] Tyler Benitez Work Phone: [facility] Work Phone: 02-28-2022 14:21-0400 Diastolic blood pressure 56 mm[Hg] Dr. Tyler Benitez Work Phone: [facility] Work Phone: 02-28-2022 14:21-0400 Heart rate 80 /min Dr. Tyler Benitez Work Phone: [facility] Work Phone: 02-28-2022 14:21-0400 Respiratory rate 18 /min Dr. Tyler Benitez Work Phone: [facility] Work Phone: 02-28-2022 14:21-0400 Systolic blood pressure 113 mm[Hg] Dr. Tyler Benitez Work Phone: [facility] Work Phone: 01-18-2022 17:17-0400 Diastolic blood pressure 87 mm[Hg] Dr. Tyler Benitez Work Phone: [facility] Work Phone: 01-18-2022 17:17-0400 Heart rate 79 /min Dr. Tyler Benitez Work Phone: [facility] Work Phone: 01-18-2022 17:17-0400 Respiratory rate 16 /min Dr. Tyler Benitez Work Phone: [facility] Work Phone: 01-18-2022 17:17-0400 SaO2% (BldA) [Mass fraction] 99 % Dr. Tyler Benitez Work Phone: [facility] Work Phone: 01-18-2022 17:17-0400 Systolic blood pressure 144 mm[Hg] Dr. Tyler Benitez Work Phone: [facility] Work Phone: 01-18-2022 13:38-0400 Body temperature 96.9 [degF] Dr. Tyler Benitez Work Phone: [facility] Work Phone: 01-18-2022 13:34-0400 Body height 152.[address] Tyler Benitez Work Phone: [facility] Work Phone: 01-18-2022 13:34-0400 Body mass index (BMI) [Ratio] 36.1 kg/m2 Dr. Tyler Benitez Work Phone: [facility] Work Phone: 01-18-2022 13:34-0400 Body weight 83.[address] Tyler Benitez Work Phone: [facility] Work Phone: 01-16-2022 17:31-0400 Diastolic blood pressure 84 mm[Hg] Dr. Tyler Benitez Work Phone: [facility] Work Phone: 01-16-2022 17:31-0400 Heart rate 69 /min Dr. Tyler Benitez Work Phone: [facility] Work Phone: 01-16-2022 17:31-0400 Respiratory rate 18 /min Dr. Tyler Benitez Work Phone: [facility] Work Phone: 01-16-2022 17:31-0400 SaO2% (BldA) [Mass fraction] 98 % Dr. Tyler Benitez Work Phone: [facility] Work Phone: 01-16-2022 17:31-0400 Systolic blood pressure 171 mm[Hg] Dr. Tyler Benitez Work Phone: [facility] Work Phone: 01-16-2022 15:58-0400 Body temperature 98.2 [degF] Dr. Tyler Benitez Work Phone: [facility] Work Phone: 01-16-2022 15:01-0400 Body height 149.[address] Tyler Benitez Work Phone: [facility] Work Phone: 01-16-2022 15:01-0400 Body mass index (BMI) [Ratio] 38.1 kg/m2 Dr. Tyler Benitez Work Phone: [facility] Work Phone: 01-16-2022 15:01-0400 Body weight 85.[address] Tyler Benitez Work Phone: [facility] Work Phone: 11-24-2021 15:32-0400 Body height 149.[address] Tyler Benitez Work Phone: [facility] Work Phone: 11-24-2021 15:32-0400 Body mass index (BMI) [Ratio] 36.5 kg/m2 Dr. Tyler Benitez Work Phone: [facility] Work Phone: 11-24-2021 15:32-0400 Body weight 82.[address] Tyler Benitez Work Phone: [facility] Work Phone: 11-24-2021 15:32-0400 Diastolic blood pressure 62 mm[Hg] Dr. Tyler Benitez Work Phone: [facility] Work Phone: 11-24-2021 15:32-0400 Heart rate 76 /min Dr. Tyler Benitez Work Phone: [facility] Work Phone: 11-24-2021 15:32-0400 Respiratory rate 16 /min Dr. Tyler Benitez Work Phone: [facility] Work Phone: 11-24-2021 15:32-0400 Systolic blood pressure 142 mm[Hg] Dr. Tyler Benitez Work Phone: [facility] Work Phone: 10-24-2021 13:56-0500 Body temperature 97.5 [degF] Dr. Tyler Benitez Work Phone: [facility] Work Phone: 10-24-2021 13:56-0500 Diastolic blood pressure 65 mm[Hg] Dr. Tyler Benitez Work Phone: [facility] Work Phone: 10-24-2021 13:56-0500 Heart rate 81 /min Dr. Tyler Benitez Work Phone: [facility] Work Phone: 10-24-2021 13:56-0500 Respiratory rate 20 /min Dr. Tyler Benitez Work Phone: [facility] Work Phone: 10-24-2021 13:56-0500 SaO2% (BldA) [Mass fraction] 96 % Dr. Tyler Benitez Work Phone: [facility] Work Phone: 10-24-2021 13:56-0500 Systolic blood pressure 143 mm[Hg] Dr. Tyler Benitez Work Phone: [facility] Work Phone: 10-23-2021 11:59-0500 Body weight 87.[address] Tyler Benitez Work Phone: [facility] Work Phone: 10-22-2021 16:29-0500 Body mass index (BMI) [Ratio] 38.8 kg/m2 Dr. Tyler Benitez Work Phone: [facility] Work Phone: Encounters Encounter Date Encounter Type Care Provider Facility Start: 06-14-2025 End: 06-14-2025 Emergency department patient visit Tyler Emmanuel Facility:[facility] Start: 05-03-2025 End: 05-03-[address] Danial Cook MD -[facility] Work Phone: Start: 05-03-2025 End: 05-03-[address] Tyler Benitez MD Work Phone: -[facility] Start: 04-08-2025 End: 04-08-2025 Patient encounter procedure Arya Archer MD Work Phone: Rheumatology Comment on above: Osteoarthritis, gene ralized (Primary Dx) Start: 04-08-2025 End: 04-08-2025 ambulatory TYLER Evangelist BENITEZ Facility:[facility] Start: 03-17-2025 End: 03-17-2025 ambulatory Ana Rosa Ricketts PT Work Phone: [facility] Comment on above: Lymphedema of both l ower extremities (Primary Dx) Start: 03-17-2025 End: 03-17-2025 ambulatory TYLER Evangelist BENITEZ Facility:[facility] Start: 03-12-2025 End: 03-12-[address] Tyler Benitez MD Work Phone: -Cardiovascular Services Start: 03-12-2025 End: 03-12-[address] Danial Cook MD -Cardiovascular Services Work Phone: Start: 03-12-2025 ambulatory Tyler Benitez Facility:[facility] Start: 03-12-2025 Non-patient / Non-visit Dr. Aldo DEAN -[facility] Start: 03-11-2025 End: 03-11-[address] Tyler Benitez MD Work Phone: -[facility] Start: 03-11-2025 End: 03-11-2025 Patient encounter procedure Radha Wood Work Phone: Podiatry Comment on above: Onychomycosis (Prima ry Dx); Pain in toe of left foot; Pain in toe of right foot; Ingrowing toenail of left foot; Pes planus of both feet; Callus Start: 03-11-2025 End: 03-12-2025 ambulatory TYLER BENITEZ Facility:[facility] Start: 03-11-2025 End: 03-11-2025 ambulatory Tyler Benitez Facility:[facility] Start: 03-02-2025 End: 03-02-2025 Emergency department patient visit Dr. Tyler Benitez MD Work Phone: -Emergency Department Work Phone: Start: 02-22-2025 ambulatory Tyler Benitez Facility:[facility] Start: 02-19-2025 End: 02-19-[address] Tyler Benitez MD Work Phone: -Laboratory Start: 02-19-2025 End: 02-19-[address] Danial Cook MD -Laboratory Work Phone: Start: 02-19-2025 End: 02-19-2025 Telephone encounter Prerna Lemon PT [facility] Comment on above: Orders Start: 02-19-2025 End: 02-19-2025 ambulatory Tyler Benitez Facility:[facility] Start: 12-22-2024 [facility] Tyler Benitez Facility:[facility] Start: 11-24-2024 End: 11-24-2024 Telephone encounter Radha Wood Work Phone: Podiatry Comment on above: Patient Update Start: 11-20-2024 End: 11-20-2024 ambulatory Prerna Lemon PT [facility] Comment on above: Lymphedema of both l ower extremities (Primary Dx) Start: 11-13-2024 End: 11-13-2024 ambulatory Prerna Lemon PT [facility] Comment on above: Lymphedema of both l ower extremities (Primary Dx) Start: 11-10-2024 End: 11-10-2024 Emergency department patient visit Dr. Tyler Benitez MD Work Phone: -Emergency Department Work Phone: Start: 11-09-2024 End: 03-17-2025 Telephone encounter Prerna Bonds PT [facility] Comment on above: Returning Patient's Call (Pt left message on therapist voicemail requesting a call back. Therapist called to talk to pt who notified her that her leg is weeping fluid and was itchy. She stated she removed her compression bandage and,"It doesn't look very good", and is red. Therapist instructed pt to go to ER d/t high possibility of infection. Pt stated she was told the last time she was there that, "she may as well not come back because they don't know how to treat that anyway" (the lymphedema). (cont.)) Patient Question (Juancarlos hawkins spoke with nurse in [facility] ([facility]) who consulted physician on staff and advised [...] be seen medically before therapy anyway. ) Patient Update (Woun d Seepage) Start: 10-30-2024 End: 10-30-2024 ambulatory Prerna Lemon PT [facility] Comment on above: Lymphedema of both l ower extremities (Primary Dx) Start: 09-25-2024 End: 09-25-2024 ambulatory Prerna Lemon PT [facility] Comment on above: Lymphedema of both l ower extremities (Primary Dx) Start: 09-04-2024 End: 09-04-2024 ambulatory Prerna Lemon PT [facility] Comment on above: Lymphedema of both l ower extremities (Primary Dx) Start: 08-27-2024 End: 08-27-[address] Alphonso Newell MD -[facility] Work Phone: Start: 08-27-2024 End: 08-27-2024 ambulatory Tyler Benitez Facility:[facility] Start: 08-21-2024 End: 08-21-[address] Alphonso Newell MD -[facility] Work Phone: Start: 08-21-2024 End: 08-21-2024 ambulatory Tyler Benitez Facility:[facility] Start: 08-11-2024 End: 08-11-[address] Alphonso Newell MD -[facility] Work Phone: Start: 08-11-2024 End: 08-11-2024 ambulatory Tyler Benitez Facility:[facility] Start: 08-11-2024 End: 08-11-2024 ambulatory Tyler Benitez Facility:[facility] Start: 07-30-2024 ambulatory Tyler Benitez Facility:[facility] Start: 07-17-2024 End: 07-17-2024 ambulatory Prerna Lemon PT [facility] Comment on above: Lymphedema of both l ower extremities (Primary Dx) Start: 07-14-2024 End: 07-14-[address] Alphonso Newell MD -[facility] Work Phone: Start: 07-14-2024 End: 07-14-2024 ambulatory Tyler Benitez Facility:[facility] Start: 07-10-2024 End: 07-10-2024 ambulatory Prerna Lemon PT [facility] Comment on above: Lymphedema of both l ower extremities (Primary Dx) Start: 06-24-2024 End: 06-24-2024 ambulatory Prerna Lemon PT [facility] Comment on above: Lymphedema of both l ower extremities (Primary Dx) Start: 06-19-2024 End: 06-19-2024 ambulatory Prerna Lemon PT [facility] Comment on above: Lymphedema of both l ower extremities (Primary Dx) Start: 06-12-2024 End: 06-12-2024 Telephone encounter Prerna Lemon PT [facility] Comment on above: Returning Patient's Call (Returned pt's voicemail message requesting more PT visits and concern that her legs/feet are more swollen. /Therapist reviewed the appts that were already scheduled with pt and offered an appt for 06/15 that became available today d/t [employer]. Pt first stated she could only keep Saturday's visit (06/19) because her locomotive driver can only take her on Fridays. Later, she said she would call her locomotive driver to see if she could bring her on Saturday and would let us know. /Reviewed HEP with pt & instructed to do 2x/day) Start: 05-29-2024 End: 05-29-2024 ambulatory Prerna Lemon PT [facility] Comment on above: Lymphedema of both l ower extremities (Primary Dx) Start: 05-22-2024 End: 05-22-2024 ambulatory Prerna Lemon PT [facility] Comment on above: Lymphedema of both l ower extremities (Primary Dx) Start: 05-08-2024 End: 05-08-2024 ambulatory Prerna Lemon PT [facility] Comment on above: Lymphedema of both l ower extremities (Primary Dx) Start: 04-24-2024 End: 04-24-2024 ambulatory Prerna Lemon PT [facility] Comment on above: Lymphedema of both l ower extremities (Primary Dx) Start: 04-17-2024 End: 04-17-2024 ambulatory Prerna Lemon PT [facility] Comment on above: Lymphedema of both l ower extremities (Primary Dx) Start: 04-03-2024 End: 04-03-2024 ambulatory Prerna Lemon PT [facility] Comment on above: Lymphedema of both l ower extremities (Primary Dx) Start: 03-27-2024 End: 03-27-2024 ambulatory Prerna Lemon PT [facility] Comment on above: Lymphedema of both l ower extremities (Primary Dx) Start: 03-13-2024 End: 03-13-2024 ambulatory Prerna Lemon PT [facility] Comment on above: Lymphedema of both l ower extremities (Primary Dx) Start: 03-04-2024 End: 03-04-2024 ambulatory Prerna Lemon PT [facility] Comment on above: Lymphedema of both l ower extremities (Primary Dx) Start: 02-14-2024 End: 02-14-2024 ambulatory Prerna Lemon PT [facility] Comment on above: Lymphedema of both l ower extremities (Primary Dx) Start: 02-07-2024 End: 02-07-2024 ambulatory Prerna Lemon PT [facility] Comment on above: Lymphedema of both l ower extremities (Primary Dx) Start: 01-24-2024 End: 01-24-2024 ambulatory Prerna Lemon PT [facility] Comment on above: Lymphedema of both l ower extremities (Primary Dx) Start: 01-17-2024 End: 01-17-2024 ambulatory Prerna Lemon PT [facility] Comment on above: Lymphedema of both l ower extremities (Primary Dx) Start: 01-03-2024 End: 01-03-2024 Patient encounter procedure Radha Wood Work Phone: Podiatry Comment on above: Onychomycosis (Prima ry Dx); Pain in toe of left foot; Pain in toe of right foot Start: 12-27-2023 End: 12-27-2023 ambulatory Prerna Lemon PT [facility] Comment on above: Lymphedema of both l ower extremities (Primary Dx) Start: 12-17-2023 End: 12-17-[address] Tyler Benitez Work Phone: [facility] Work Phone: Start: 12-17-2023 End: 12-17-[address] Tyler Benitez Work Phone: [facility] Work Phone: Start: 12-13-2023 End: 12-13-2023 ambulatory Prerna Lemon PT [facility] Comment on above: Lymphedema of both l ower extremities (Primary Dx) Start: 11-29-2023 End: 11-29-2023 ambulatory Prerna Lemon PT [facility] Comment on above: Lymphedema of both l ower extremities (Primary Dx) Start: 11-15-2023 End: 11-15-2023 ambulatory Prerna Lemon PT [facility] Comment on above: Lymphedema of both l ower extremities (Primary Dx) Start: 10-28-2023 End: 10-28-2023 ambulatory Prerna Lemon PT [facility] Comment on above: Lymphedema of both l ower extremities (Primary Dx) Start: 10-14-2023 End: 10-14-2023 ambulatory Prerna Lemon PT [facility] Comment on above: Lymphedema of both l ower extremities (Primary Dx) Start: 10-07-2023 End: 10-07-2023 ambulatory Prerna Lemon PT [facility] Comment on above: Lymphedema of both l ower extremities (Primary Dx) Start: 10-04-2023 End: 10-04-2023 ambulatory Prerna Lemon PT [facility] Comment on above: Lymphedema of both l ower extremities (Primary Dx) Start: 08-29-2023 End: 08-29-[address] Tyler Benitez Work Phone: [facility] Work Phone: Start: 08-07-2023 End: 08-07-2023 ambulatory Prerna Lemon PT [facility] Comment on above: Lymphedema of both l ower extremities (Primary Dx) Start: 08-02-2023 End: 08-02-2023 ambulatory Prerna Lemon PT [facility] Comment on above: Lymphedema of both l ower extremities (Primary Dx) Start: 2023 Telephone encounter Radha Armstrong Work Phone: Podiatry Comment on above: Results Start: 07-17-2023 End: 07-17-2023 Subsequent hospital visit by physician Xr [facility] [employer] Work Phone: Radiology Comment on above: Ingrowing toenail of left foot [L60.0] Start: 07-08-2023 Telephone encounter Radha Armstrong Work Phone: Podiatry Comment on above: Results Start: 07-05-2023 End: 07-05-2023 Patient encounter procedure Radha Wood Work Phone: Podiatry Comment on above: Onychomycosis (Prima ry Dx); Pain in toe of left foot; Pain in toe of right foot; Ingrowing toenail of left foot Start: 07-01-2023 End: 07-01-[address] Tyler Benitez Work Phone: [facility] Work Phone: Start: 07-01-2023 End: 07-01-[address] Tyler Benitez Work Phone: [facility] Work Phone: Start: 06-28-2023 End: 06-28-2023 ambulatory Prerna Lemon PT [facility] Comment on above: Lymphedema of both l ower extremities (Primary Dx) Start: 06-21-2023 End: 06-21-2023 ambulatory Prerna Lemon PT [facility] Comment on above: Lymphedema of both l ower extremities (Primary Dx) Start: 06-18-2023 End: 06-18-[address] Tyler Benitez Work Phone: [facility] Work Phone: Start: 06-18-2023 End: 06-18-[address] Tyler Benitez Work Phone: [facility] Start: 06-17-2023 Telephone encounter Prerna Lemon PT [facility] Comment on above: Appointment Start: 06-10-2023 End: 06-10-2023 ambulatory Prerna Lemon PT [facility] Comment on above: Lymphedema of both l ower extremities (Primary Dx) Start: 06-10-2023 End: 06-10-[address] Tyler Benitez Work Phone: [facility] Work Phone: Start: 06-10-2023 End: 06-10-[address] Tyler Benitez Work Phone: [facility] Work Phone: Start: 06-03-2023 End: 06-03-[address] Tyler Benitez Work Phone: [facility] Work Phone: Start: 06-03-2023 End: 06-03-[address] Tyler Benitez Work Phone: [facility] Spec[facility] Work Phone: Start: 05-31-2023 End: 05-31-2023 ambulatory Prerna Lemon PT [facility] Comment on above: Lymphedema of both l ower extremities (Primary Dx) Start: 05-24-2023 End: 05-24-2023 ambulatory Prerna Lemon PT [facility] Comment on above: Unsteady gait when w alking; Lymphedema of both lower extremities Start: 05-24-2023 End: 05-24-2023 Emergency department patient visit Dr. Tyler Benitez Work Phone: [facility] Work Phone: Start: 05-17-2023 End: 05-17-2023 ambulatory Prerna Lemon PT [facility] Comment on above: Lymphedema of both l ower extremities (Primary Dx) Start: 05-10-2023 End: 05-10-2023 ambulatory Prerna Lemon PT [facility] Comment on above: Lymphedema of both l ower extremities (Primary Dx) Start: 05-03-2023 End: 05-03-2023 ambulatory Prerna Lemon PT [facility] Comment on above: Lymphedema of both l ower extremities (Primary Dx) Start: 04-24-2023 End: 04-24-2023 ambulatory Prerna Lemon PT [facility] Comment on above: Lymphedema of both l ower extremities (Primary Dx) Start: 04-19-2023 Non-patient / Non-visit Dr. Silvio Benitez Work Phone: [facility] Work Phone: Start: 04-18-2023 Non-patient / Non-visit Dr. Silvio Benitez Work Phone: [facility] Work Phone: Start: 04-17-2023 Non-patient / Non-visit Dr. Silvio Benitez Work Phone: [facility] Work Phone: Start: 04-16-2023 Non-patient / Non-visit Dr. Silvio Benitez Work Phone: [facility] Start: 04-16-2023 Non-patient / Non-visit Dr. Silvio Benitez Work Phone: [facility] Work Phone: Start: 04-15-2023 End: 04-19-2023 Evaluation and management of inpatient Dr. Tyler Benitez Work Phone: [facility] 3 Work Phone: Start: 04-15-2023 End: 04-19-[address] Tyler Benitez Work Phone: [facility] Work Phone: Start: 04-12-2023 End: 04-12-2023 ambulatory Prerna Lemon PT [facility] Comment on above: Lymphedema of both l ower extremities (Primary Dx) Start: 04-05-2023 End: 04-05-2023 Emergency department patient visit Dr. Tyler Benitez Work Phone: [facility] Work Phone: Start: 04-04-2023 End: 04-05-2023 Emergency department patient visit Dr. Tyler Benitez Work Phone: [facility] Work Phone: Start: 03-29-2023 End: 04-01-2023 Evaluation and management of inpatient TYLER BENITEZ Facility:[facility] Start: 03-29-2023 Telephone encounter Prerna Lemon PT [facility] Comment on above: Appointment Start: 03-22-2023 End: 03-22-2023 ambulatory Prerna Lemon PT [facility] Comment on above: Lymphedema of both l ower extremities (Primary Dx) Start: 03-21-2023 Telephone encounter Prerna Lemon PT [facility] Comment on above: Patient Update Start: 03-20-2023 Telephone encounter Judith Walton elicia IRWIN Work Phone: Plastic Surgery Comment on above: Appointment Start: 03-19-2023 Non-patient / Non-visit Dr. Silvio Benitez Work Phone: [facility] Work Phone: Start: 03-18-2023 Non-patient / Non-visit Dr. Silvio Benitez Work Phone: [facility] Start: 03-18-2023 Non-patient / Non-visit Dr. Silvio Benitez Work Phone: [facility] Work Phone: Start: 03-17-2023 Non-patient / Non-visit Dr. Silvio Benitez Work Phone: [facility] Work Phone: Start: 03-17-2023 End: 03-19-2023 Evaluation and management of inpatient Dr. Tyler Benitez Work Phone: [facility] Work Phone: Start: 03-12-2023 End: 03-12-[address] Tyler Benitez Work Phone: [facility] Work Phone: Start: 03-08-2023 End: 03-08-2023 ambulatory Prerna Lemon PT [facility] Comment on above: Lymphedema of both l ower extremities (Primary Dx) Start: 03-01-2023 End: 03-01-2023 ambulatory Prerna Lemon PT [facility] Comment on above: Lymphedema of both l ower extremities (Primary Dx) Start: 02-27-2023 End: 02-27-2023 ambulatory Prerna Lemon PT [facility] Comment on above: Lymphedema of both l ower extremities (Primary Dx) Start: 02-26-2023 End: 02-26-2023 Emergency department patient visit Dr. Tyler Benitez Work Phone: [facility] Work Phone: Start: 02-22-2023 End: 02-22-2023 ambulatory Prerna Lemon PT [facility] Comment on above: Lymphedema of both l ower extremities (Primary Dx) Start: 02-20-2023 End: 02-20-2023 ambulatory Prerna Lemon PT [facility] Comment on above: Lymphedema of both l ower extremities (Primary Dx) Start: 02-08-2023 End: 02-08-2023 ambulatory Prerna Lemon PT [facility] Comment on above: Lymphedema of both l ower extremities (Primary Dx) Start: 01-25-2023 End: 01-25-2023 ambulatory Prerna Lemon PT [facility] Comment on above: Lymphedema of both l ower extremities (Primary Dx) Start: 01-15-2023 End: 01-15-2023 Emergency department patient visit Dr. yTler Benitez Work Phone: [facility] Work Phone: Start: 01-04-2023 End: 01-04-2023 ambulatory Prerna Lemon PT [facility] Comment on above: Lymphedema of both l ower extremities (Primary Dx) Start: 01-03-2023 Telephone encounter Judith Walton ins PA-C Work Phone: [facility] Comment on above: Appointment Start: 01-02-2023 Telephone encounter Judith Walton ins PA-C Work Phone: Plastic Surgery Comment on above: Appointment Start: 12-31-2022 Telephone encounter Jesse Grayson Work Phone: Plastic Surgery Comment on above: Patient Question (Mi ssed call) Appointment Start: 12-21-2022 End: 12-21-[address] Tyler Benitez Work Phone: [facility] Work Phone: Start: 12-21-2022 End: 12-21-[address] Tyler Benitez Work Phone: [facility] Start: 12-21-2022 End: 12-21-2022 ambulatory Prerna Lemon PT [facility] Comment on above: Lymphedema of both l ower extremities (Primary Dx) Start: 12-14-2022 End: 12-14-2022 ambulatory Prerna Lemon PT [facility] Comment on above: Lymphedema of both l ower extremities (Primary Dx) Start: 12-07-2022 End: 12-07-2022 ambulatory Prerna Lemon PT [facility] Comment on above: Lymphedema of both l ower extremities (Primary Dx) Start: 12-06-2022 ambulatory Mohini vasquez LPN [facility] Start: 12-06-2022 Patient encounter procedure Mohini Davila LPN [employer] Comment on above: Referral Information Start: 11-27-2022 End: 11-27-[address] Tyler Benitez Work Phone: [facility] Start: 11-23-2022 End: 11-23-2022 ambulatory Prerna Lemon PT [facility] Comment on above: Lymphedema of both l ower extremities (Primary Dx) Start: 11-20-2022 End: 11-20-2022 ambulatory [facility] Work Phone: Start: 11-20-2022 End: 11-20-2022 Patient encounter procedure [facility] Start: 11-09-2022 End: 11-09-2022 ambulatory Prerna Lemon PT [facility] Comment on above: Lymphedema of both l ower extremities (Primary Dx) Start: 11-02-2022 End: 11-02-2022 ambulatory Prerna Lemon PT [facility] Comment on above: Lymphedema of both l ower extremities (Primary Dx) Start: 10-22-2022 End: 10-22-2022 ambulatory Prerna Lemon PT [facility] Comment on above: Lymphedema of both l ower extremities (Primary Dx) Start: 10-12-2022 End: 10-12-2022 ambulatory Prerna Lemon PT [facility] Comment on above: Lymphedema of both l ower extremities (Primary Dx) Start: 10-05-2022 End: 10-05-2022 ambulatory Prerna Lemon PT [facility] Comment on above: Lymphedema of both l ower extremities (Primary Dx) Start: 09-12-2022 Telephone encounter Radha Boogie haines Work Phone: Podiatry Comment on above: Results Start: 09-11-2022 End: 09-11-2022 Subsequent hospital visit by physician [facility] Ernesto Rell Work Phone: Radiology Comment on above: Plantar fasciitis [M 72.2] Start: 09-11-2022 End: 09-11-2022 Patient encounter procedure Radha Wood Work Phone: Podiatry Comment on above: Onychomycosis (Prima ry Dx); Pain in toe of left foot; Pain in toe of right foot; Plantar fasciitis Start: 09-10-2022 End: 09-10-2022 ambulatory Prerna Lemon PT [facility] Comment on above: Lymphedema of both l ower extremities (Primary Dx) Start: 08-10-2022 End: 08-10-2022 ambulatory Prerna Lemon PT [facility] Comment on above: Lymphedema of both l ower extremities (Primary Dx) Start: 08-03-2022 End: 08-03-2022 ambulatory Prerna Lemon PT [facility] Comment on above: Lymphedema of both l ower extremities (Primary Dx) Start: 07-27-2022 End: 07-27-2022 ambulatory Prerna Lemon PT [facility] Comment on above: Lymphedema of both l ower extremities (Primary Dx) Start: 07-13-2022 End: 07-13-2022 ambulatory Prerna Lemon PT [facility] Comment on above: Lymphedema of both l ower extremities (Primary Dx) Start: 07-09-2022 End: 07-09-[address] Tyler Benitez Work Phone: [facility] Work Phone: Start: 07-09-2022 End: 07-09-[address] Tyler Benitez Work Phone: [facility] Start: 07-06-2022 End: 07-06-2022 ambulatory Prerna Lemon PT [facility] Comment on above: Lymphedema of both l ower extremities (Primary Dx) Start: 06-26-[address] Tyler Benitez Work Phone: [facility] Start: 06-15-2022 End: 06-15-2022 ambulatory Prerna Lemon PT [facility] Comment on above: Lymphedema of both l ower extremities (Primary Dx) Start: 06-08-2022 End: 06-08-2022 ambulatory Prerna Lemon PT [facility] Comment on above: Lymphedema of both l ower extremities (Primary Dx) Start: 06-08-2022 End: 06-08-[address] Tyler Benitez Work Phone: [facility] Work Phone: Start: 06-08-2022 End: 06-08-[address] Tyler Benitez Work Phone: [facility] Start: 06-01-2022 End: 06-01-2022 ambulatory Prerna Lemon PT [facility] Comment on above: Lymphedema of both l ower extremities (Primary Dx) Start: 05-25-2022 End: 05-25-2022 ambulatory Prerna Lemon PT [facility] Comment on above: Lymphedema of both l ower extremities (Primary Dx) Start: 05-20-2022 End: 05-20-2022 Emergency department patient visit Dr. Tyler Benitez Work Phone: [facility] Start: 05-18-2022 End: 05-18-2022 ambulatory Prerna Lemon PT [facility] Comment on above: Lymphedema of both l ower extremities (Primary Dx) Start: 05-18-2022 End: 05-18-[address] Tyler Benitez Work Phone: [facility] Start: 05-16-2022 End: 05-16-[address] Tyler Benitez Work Phone: [facility] Start: 05-11-2022 End: 05-11-2022 ambulatory Prerna Lemon PT [facility] Comment on above: Lymphedema of both l ower extremities (Primary Dx) Start: 05-11-2022 End: 05-11-[address] Tyler Benitez Work Phone: [facility] Start: 05-08-2022 End: 05-08-2022 Emergency department patient visit Dr. Tyler Benitez Work Phone: [facility] Start: 05-04-2022 End: 05-04-2022 ambulatory Prerna Lemon PT [facility] Comment on above: Lymphedema of both l ower extremities (Primary Dx) Start: 05-04-2022 End: 05-04-[address] Tyler Benitez Work Phone: [facility] Start: 04-27-2022 End: 04-27-2022 ambulatory Prerna Lemon PT [facility] Comment on above: Lymphedema of both l ower extremities (Primary Dx) Start: 04-20-2022 End: 04-20-2022 ambulatory Prerna Lemon PT [facility] Comment on above: Lymphedema of both l ower extremities (Primary Dx) Start: 04-16-2022 End: 04-16-[address] Tyler Benitez Work Phone: [facility] Start: 04-13-2022 End: 04-13-2022 ambulatory Prerna Lemon PT [facility] Comment on above: Lymphedema of both l ower extremities (Primary Dx) Start: 04-06-2022 End: 04-06-2022 ambulatory Prerna Lemon PT [facility] Comment on above: Lymphedema of both l ower extremities (Primary Dx) Start: 03-30-2022 End: 03-30-2022 ambulatory Prerna Lemon PT [facility] Comment on above: Lymphedema of both l ower extremities (Primary Dx) Start: 03-23-2022 End: 03-23-2022 ambulatory Rperna Lemon PT [facility] Comment on above: Lymphedema of both l ower extremities (Primary Dx) Start: 03-19-2022 End: 03-19-2022 ambulatory Prerna Lemon PT [facility] Comment on above: Lymphedema of both l ower extremities (Primary Dx) Start: 03-19-2022 End: 03-19-[address] Tyler Benitez Work Phone: [facility] Start: 03-07-2022 End: 03-07-2022 ambulatory Prerna Lemon PT [facility] Comment on above: Lymphedema of both l ower extremities (Primary Dx) Start: 02-28-2022 End: 02-28-[address] Tyler Benitez Work Phone: [facility] Start: 02-23-2022 End: 02-23-2022 ambulatory Prerna Lemon PT [facility] Comment on above: Lymphedema of both l ower extremities (Primary Dx) Start: 02-16-2022 End: 02-16-2022 ambulatory Prerna Lemon PT [facility] Comment on above: Lymphedema of both l ower extremities (Primary Dx) Start: 02-02-2022 End: 02-02-2022 ambulatory Prerna Lemon PT [facility] Comment on above: Lymphedema of both l ower extremities (Primary Dx) Start: 01-18-2022 End: 01-18-2022 Emergency department patient visit Dr. Tyler Benitez Work Phone: [facility] Start: 01-16-2022 End: 01-16-2022 Emergency department patient visit Dr. Tyler Benitez Work Phone: [facility] Start: 01-05-2022 End: 01-05-2022 ambulatory Prerna Lemon PT Work Phone: [facility] Comment on above: Lymphedema of both l ower extremities (Primary Dx) Start: 12-29-2021 End: 12-29-2021 ambulatory Prerna Lemon PT Work Phone: [facility] Comment on above: Lymphedema of both l ower extremities (Primary Dx) Start: 12-25-2021 End: 12-25-[address] Tyler Benitez Work Phone: [facility] Start: 12-22-2021 End: 12-22-2021 ambulatory Prerna Lemon PT Work Phone: [facility] Comment on above: Lymphedema of both l ower extremities (Primary Dx) Start: 12-06-2021 End: 12-06-2021 Patient encounter procedure Radha Wood Work Phone: Podiatry Comment on above: Onychomycosis (Prima ry Dx); Pain in toe of left foot; Pain in toe of right foot; Hyperkeratosis Start: 12-04-2021 End: 12-04-2021 ambulatory Prerna Lemon PT Work Phone: [facility] Comment on above: Lymphedema of both l ower extremities (Primary Dx) Start: 11-24-2021 End: 11-24-[address] Tyler Benitez Work Phone: [facility] Start: 11-24-2021 End: 11-24-[address] Tyler Benitez Work Phone: [facility] Start: 11-08-2021 End: 11-08-[address] Tyler Benitez Work Phone: [facility] Start: 10-24-2021 Non-patient / Non-visit Dr. Silvio Benitez Work Phone: [facility] Start: 10-23-2021 Non-patient / Non-visit Dr. Silvio Benitez Work Phone: [facility] Start: 10-23-2021 Non-patient / Non-visit Dr. Silvio Benitez Work Phone: [facility] Start: 10-23-2021 Non-patient / Non-visit Dr. Silvio Benitez Work Phone: [facility] Start: 10-23-2021 Non-patient / Non-visit Dr. Silvio Benitez Work Phone: [facility] Start: 10-23-2021 Non-patient / Non-visit Dr. Silvio Benitez Work Phone: [facility] Start: 10-22-2021 Non-patient / Non-visit Dr. Silvio Benitez Work Phone: [facility] Start: 10-22-2021 End: 10-24-2021 Evaluation and management of inpatient Dr. Tyler Benitez Work Phone: [facility] Start: 01-17-2018 Patient encounter procedure MIKE HEAD Facility:[facility] Start: 01-08-2018 Patient encounter procedure MIKE HEAD Facility:[facility] Start: 09-17-2017 Patient encounter procedure NATA COTO Facility:[facility] Start: 08-22-2017 Patient encounter procedure GEO REILLY Facility:[facility] Start: 08-05-2017 Patient encounter procedure ODALIS GUALLPA Facility:[facility] Start: 07-02-2017 End: 07-02-2017 Ambulatory UNKNOWN PROVIDER Facility:[facility] Procedures Date Procedure Procedure Detail Performing Clinician Start: 03-02-[address] Tyler Benitez MD Work Phone: Start: 03-02-2025 X-ray of chest, PA a nd lateral views Dr. Tyler Benitez MD Work Phone: Start: 11-10-[address] Tyler Benitez MD Work Phone: Start: 11-10-[address] Tyler Benitez MD Work Phone: Start: 07-05-2023 Cul bact xcpt urine blood/stool aerobic isol Radha Wood Work Phone: Start: 04-17-2023 Pelvis X-ray Dr. Tyler arnold Work Phone: Start: 04-04-2023 X-ray of both feet Dr. Tyler Benitez Work Phone: Start: 03-17-2023 Bacteria identified in Blood by Culture Dr. Tyler Benitez Work Phone: Start: 01-15-2023 CT angiography of ch est with contrast Dr. Tyler Benitez Work Phone: Start: 01-15-2023 Plain chest X-ray Dr. Vandana Benitez Work Phone: Start: 01-15-2023 SARS-CoV-2 & FLU Ant igen (Rapid) Dr. Tyler Benitez Work Phone: Start: 12-21-2022 CT of abdomen and pe lvis with oral contrast Dr. Tyler Benitez Work Phone: Start: 09-11-2022 Radex foot complete minimum 3 views Radha Wood Work Phone: Start: 06-08-[address] Silvio Benitez Work Phone: Start: 05-20-2022 Plain chest X-ray Dr. Vandana Benitez Work Phone: Start: 05-08-2022 Plain chest X-ray Dr. Vandana Benitez Work Phone: Start: 04-16-2022 Radiologic examinati on of knee Dr. Tyler Benitez Work Phone: Start: 03-19-2022 Radiography of thora cic spine Dr. Tyler Benitez Work Phone: Start: 03-19-2022 X-ray of lumbosacral spine Dr. Tyler Benitez Work Phone: Start: 01-16-2022 Plain chest X-ray Dr. Vandana Benitez Work Phone: Start: 01-16-2022 SARS-CoV-2 & FLU Ant igen (Rapid) Dr. Tyler Benitez Work Phone: Start: 11-24-2021 US scan of thyroid Dr. Tyler Benitez Work Phone: Start: 10-23-2021 Plain chest X-ray Dr. Vandana Benitez Work Phone: Start: 10-22-2021 Bacteria identified in Blood by Culture Dr. Tyler Benitez Work Phone: Start: 10-22-2021 End: 10-22-2021 Legionella pneumophila antigen assay Dr. Tyler Benitez Work Phone: Start: 10-22-2021 Respiratory Panel (PCR) Dr. Tyler Benitez Work Phone: Start: 10-22-2021 Streptococcus pneumo niae Antigen (M Dr. Tyler Benitez Work Phone: Start: 10-22-2021 Plain chest X-ray Dr. Vandana Benitez Work Phone: Start: 02-13-2013 History of radiation therapy S/P radiation therapy Prerna Bonds PT Work Phone: SARS-CoV-2 & FLU Ant igen (Rapid) Dr. Tyler Benitez Work Phone: Plan of Treatment Date Care Activity Detail Author Start: 07-02-2027 Urine microalbumin profile [facility] Start: 04-01-2026 DIABETES SCREEN DIABETES SCREEN [facility] Start: 04-01-2026 Diabetes Screening Diabetes Screenin g [facility] Start: 03-29-2026 DIABETES SCREEN DIABETES SCREEN [facility] Start: 06-18-2025 End: 06-18-2025 Patient encounter procedure 06/18/2025 2:40 PM EDT Office Visit Podiatry [address] [place] [address] Radha Wood [address] [place], [place] [id number] 3 month follow up Podiatry Comment on above: 3 month follow up Start: 05-27-2025 End: 05-27-2025 ambulatory 05/27/2025 11:30 AM EDT OT/PT/Speech Visit [facility] [address] [place] [address] Morris Lo, PT [address] [place] [address] Pes planus of both feet [M21.41, M21.42] [facility] Comment on above: Pes planus of both f eet [M21.41, M21.42] Start: 04-26-2025 Influenza vaccination C [facility] Start: 03-17-2025 End: 03-17-2025 ambulatory [facility] Comment on above: I89.0 (ICD-10-CM) - Lymphedema of both lower extremities 15 visits thru 06/17 Start: 03-11-2025 End: 03-11-2025 Patient encounter procedure 03/11/2025 2:00 PM EDT Office Visit Podiatry [address] [place] [address] Radha Wood [address] [place] [address] follow up nail care Podiatry Comment on above: follow up nail care Start: 03-02-2025 End: 03-02-2025 [facility] Start: 12-18-2024 End: 12-18-2024 ambulatory 12/18/2024 2:45 PM EDT OT/PT/Speech Visit [facility] [address] [place], [place] [phone] Prerna Bonds PT I89.0 (ICD-10-CM) - Lymphedema of both lower extremities [facility] Comment on above: I89.0 (ICD-10-CM) - Lymphedema of both lower extremities Start: 12-11-2024 End: 12-11-2024 ambulatory 12/11/2024 2:45 PM EDT OT/PT/Speech Visit [facility] [address] [place] [address] Lemon, Prerna, PT I89.0 (ICD-10-CM) - Lymphedema of both lower extremities [facility] Comment on above: I89.0 (ICD-10-CM) - Lymphedema of both lower extremities Start: 12-04-2024 End: 12-04-2024 ambulatory 12/04/2024 2:45 PM EDT OT/PT/Speech Visit [facility] [address] [place] [address] Lemon, Prerna, PT I89.0 (ICD-10-CM) - Lymphedema of both lower extremities [facility] Comment on above: I89.0 (ICD-10-CM) - Lymphedema of both lower extremities Start: 11-27-2024 End: 11-27-2024 ambulatory 11/27/2024 2:45 PM EDT OT/PT/Speech Visit [facility] [address] [place] [address] Lemon, Prerna, PT I89.0 (ICD-10-CM) - Lymphedema of both lower extremities [facility] Comment on above: I89.0 (ICD-10-CM) - Lymphedema of both lower extremities Start: 11-24-2024 End: 11-24-2024 Patient encounter procedure Podiatry Comment on above: follow up nail care Start: 11-20-2024 End: 11-20-2024 ambulatory 11/20/2024 2:45 PM EDT OT/PT/Speech Visit [facility] [address] [place] [address] Lemon, Prerna, PT Lymphedema [facility] Comment on above: Lymphedema Start: 11-13-2024 End: 11-13-2024 ambulatory 11/13/2024 2:45 PM EDT OT/PT/Speech Visit [facility] [address] [place] [address] Lemon, Prerna, PT Lymphedema [facility] Comment on above: Lymphedema Start: 11-10-2024 [facility] Start: 11-10-2024 [facility] Start: 11-10-2024 Bacteria identified in Blood by Culture Blood Culture [facility] Start: 09-25-2024 End: 09-25-2024 ambulatory 09/25/2024 2:45 PM EST OT/PT/Speech Visit [facility] [address] [place] [address] Lemon, Prerna, PT 89.0 (ICD-10-CM) - Lymphedema, not elsewhere classified [facility] Comment on above: 89.0 (ICD-10-CM) - L ymphedema, not elsewhere classified Start: 09-18-2024 End: 09-18-2024 ambulatory 09/18/2024 2:45 PM EST OT/PT/Speech Visit [facility] [address] [place] [address] Lemon, Prerna, PT 89.0 (ICD-10-CM) - Lymphedema, not elsewhere classified [facility] Comment on above: 89.0 (ICD-10-CM) - L ymphedema, not elsewhere classified Start: 09-11-2024 End: 09-11-2024 ambulatory 09/11/2024 2:45 PM EST OT/PT/Speech Visit [facility] [address] [place] [address] Lemon, Prerna, PT 89.0 (ICD-10-CM) - Lymphedema, not elsewhere classified [facility] Comment on above: 89.0 (ICD-10-CM) - L ymphedema, not elsewhere classified Start: 09-04-2024 End: 09-04-2024 ambulatory 09/04/2024 2:45 PM EST OT/PT/Speech Visit [facility] [address] [place] [address] Lemon, Prerna, PT 89.0 (ICD-10-CM) - Lymphedema, not elsewhere classified [facility] Comment on above: 89.0 (ICD-10-CM) - L ymphedema, not elsewhere classified Start: 09-04-2024 End: 09-04-2024 Documentation procedure 09/04/2024 Plan of Care Documentation [facility] [address] [place] [address] [facility] Start: 08-28-2024 Patient referral [facility] Work Phone: Start: 08-26-2024 Advance Directive Discussion Advance Directive Discussion [facility] Start: 08-26-2024 Medicare Advantage A nnual Wellness Visit Medicare Advantage Annual Wellness Visit [facility] Start: 08-24-2024 End: 08-24-2024 ambulatory 08/24/2024 4:00 PM EST OT/PT/Speech Visit [facility] [address] [place] [address] Lemon, Prerna, PT 89.0 (ICD-10-CM) - Lymphedema, not elsewhere classified [facility] Comment on above: 89.0 (ICD-10-CM) - L ymphedema, not elsewhere classified Start: 08-14-2024 End: 08-14-2024 ambulatory 08/14/2024 1:00 PM EST OT/PT/Speech Visit [facility] [address] [place] [address] Lemon, Prerna, PT 89.0 (ICD-10-CM) - Lymphedema, not elsewhere classified [facility] Comment on above: 89.0 (ICD-10-CM) - L ymphedema, not elsewhere classified Start: 08-03-2024 End: 08-03-2024 Patient encounter procedure Podiatry Comment on above: follow up callus Start: 07-17-2024 End: 07-17-2024 ambulatory 07/17/2024 2:45 PM EST OT/PT/Speech Visit [facility] [address] [place] [address] Lemon, Prerna, PT 89.0 (ICD-10-CM) - Lymphedema, not elsewhere classified [facility] Comment on above: 89.0 (ICD-10-CM) - L ymphedema, not elsewhere classified Start: 06-24-2024 End: 06-24-2024 ambulatory [facility] Comment on above: I89.0 (ICD-10-CM) - Lymphedema, not elsewhere classified Start: 06-19-2024 End: 06-19-2024 ambulatory 06/19/2024 2:45 PM EDT OT/PT/Speech Visit [facility] [address] [place] [address] Lemon, Prerna, PT I89.0 (ICD-10-CM) - Lymphedema, not elsewhere classified [facility] Comment on above: I89.0 (ICD-10-CM) - Lymphedema, not elsewhere classified Start: 05-29-2024 End: 05-29-2024 ambulatory 05/29/2024 2:45 PM EDT OT/PT/Speech Visit [facility] [address] [place] [address] Lemon, Prerna, PT I89.0 (ICD-10-CM) - Lymphedema, not elsewhere classified [facility] Comment on above: I89.0 (ICD-10-CM) - Lymphedema, not elsewhere classified Start: 05-22-2024 End: 05-22-2024 ambulatory 05/22/2024 2:45 PM EDT OT/PT/Speech Visit [facility] [address] [place] [address] Lemon, Prerna, PT I89.0 (ICD-10-CM) - Lymphedema, not elsewhere classified [facility] Comment on above: I89.0 (ICD-10-CM) - Lymphedema, not elsewhere classified Start: 05-15-2024 End: 05-15-2024 ambulatory 05/15/2024 2:45 PM EDT OT/PT/Speech Visit [facility] [address] [place] [address] Lemon, Prerna, PT I89.0 (ICD-10-CM) - Lymphedema, not elsewhere classified [facility] Comment on above: I89.0 (ICD-10-CM) - Lymphedema, not elsewhere classified Start: 05-13-2024 End: 05-13-2024 ambulatory 05/13/2024 3:30 PM EDT OT/PT/Speech Visit [facility] [address] [place] [address] Lemon, Prerna, PT I89.0 (ICD-10-CM) - Lymphedema, not elsewhere classified [facility] Comment on above: I89.0 (ICD-10-CM) - Lymphedema, not elsewhere classified Start: 05-08-2024 End: 05-08-2024 ambulatory 05/08/2024 2:45 PM EDT OT/PT/Speech Visit [facility] [address] [place] [address] Lemon, Prerna, PT I89.0 (ICD-10-CM) - Lymphedema, not elsewhere classified [facility] Comment on above: I89.0 (ICD-10-CM) - Lymphedema, not elsewhere classified Start: 05-01-2024 End: 05-01-2024 ambulatory 05/01/2024 1:45 PM EDT OT/PT/Speech Visit [facility] [address] [place] [address] Lemon, Prerna, PT I89.0 (ICD-10-CM) - Lymphedema, not elsewhere classified [facility] Comment on above: I89.0 (ICD-10-CM) - Lymphedema, not elsewhere classified Start: 04-26-2024 Covid-19 Vaccine () Covid-19 Vaccine () [facility] Start: 04-26-2024 Covid-19 Vaccine (4 - 2024-25 season) Covid-19 Vaccine ( season) [facility] Start: 04-26-2024 Influenza vaccination [facility] Start: 04-24-2024 End: 04-24-2024 ambulatory 04/24/2024 2:45 PM EDT OT/PT/Speech Visit [facility] [address] [place] [address] Lemon, Prerna, PT I89.0 (ICD-10-CM) - Lymphedema, not elsewhere classified [facility] Comment on above: I89.0 (ICD-10-CM) - Lymphedema, not elsewhere classified Start: 04-17-2024 End: 04-17-2024 ambulatory 04/17/2024 1:00 PM EDT OT/PT/Speech Visit [facility] [address] [place] [address] Lemon, Prerna, PT I89.0 (ICD-10-CM) - Lymphedema, not elsewhere classified [facility] Comment on above: I89.0 (ICD-10-CM) - Lymphedema, not elsewhere classified Start: 04-10-2024 End: 04-10-2024 Patient encounter procedure 04/10/2024 3:20 PM EDT Office Visit Podiatry [address] [place] [address] Radha Wood [address] [place] [address] month follow up nail care Podiatry Comment on above: month follow up nail care Start: 04-10-2024 End: 04-10-2024 ambulatory 04/10/2024 1:00 PM EDT OT/PT/Speech Visit [facility] [address] [place] [address] Lemon, Prerna, PT I89.0 (ICD-10-CM) - Lymphedema, not elsewhere classified [facility] Comment on above: I89.0 (ICD-10-CM) - Lymphedema, not elsewhere classified Start: 04-03-2024 End: 04-03-2024 ambulatory 04/03/2024 1:00 PM EDT OT/PT/Speech Visit [facility] [address] [place] [address] Lemon, Prerna, PT I89.0 (ICD-10-CM) - Lymphedema, not elsewhere classified [facility] Comment on above: I89.0 (ICD-10-CM) - Lymphedema, not elsewhere classified Start: 03-27-2024 End: 03-27-2024 ambulatory 03/27/2024 2:45 PM EDT OT/PT/Speech Visit [facility] [address] [place] [address] Lemon, Prerna, PT I89.0 - Lymphedema [facility] Comment on above: I89.0 - Lymphedema Start: 03-13-2024 End: 03-13-2024 ambulatory 03/13/2024 2:45 PM EDT OT/PT/Speech Visit [facility] [address] [place] [address] Lemon, Prerna, PT I89.0 (ICD-10-CM) - Lymphedema, not elsewhere classified [facility] Comment on above: I89.0 (ICD-10-CM) - Lymphedema, not elsewhere classified Start: 03-06-2024 End: 03-06-2024 ambulatory 03/06/2024 2:45 PM EDT OT/PT/Speech Visit [facility] [address] [place] [address] Lemon, Prerna, PT I89.0 (ICD-10-CM) - Lymphedema, not elsewhere classified [facility] Comment on above: I89.0 (ICD-10-CM) - Lymphedema, not elsewhere classified Start: 03-04-2024 End: 03-04-2024 ambulatory 03/04/2024 2:00 PM EDT OT/PT/Speech Visit [facility] [address] [place] [address] Lemon, Prerna, PT I89.0 (ICD-10-CM) - Lymphedema, not elsewhere classified [facility] Comment on above: I89.0 (ICD-10-CM) - Lymphedema, not elsewhere classified Start: 02-14-2024 Documentation procedure 2023 Plan of Care Documentation [facility] [address] [place] [address] [facility] Start: 02-14-2024 End: 02-14-2024 ambulatory 02/14/2024 1:45 PM EDT OT/PT/Speech Visit [facility] [address] [place] [address] Lemon, Prerna, PT I89.0 (ICD-10-CM) - Lymphedema, not elsewhere classified [facility] Comment on above: I89.0 (ICD-10-CM) - Lymphedema, not elsewhere classified Start: 02-07-2024 End: 02-07-2024 ambulatory 02/07/2024 1:00 PM EDT OT/PT/Speech Visit [facility] [address] [place] [address] Lemon, Prerna, PT I89.0 (ICD-10-CM) - Lymphedema of both lower extremities [facility] Comment on above: I89.0 (ICD-10-CM) - Lymphedema of both lower extremities Start: 01-24-2024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 100 mg capsule Take 1 capsule by mouth twice daily as needed. pantoprazole DR (PROTONIX) 40 mg tablet Take 1 tablet by mouth DAILY (6 AM). Cholecalciferol, Vitamin D3, 25 mcg (1,000 unit) cap Take 1,000 Units by mouth once daily. Labs Latest Ref Rng & Units 03/29/2023 03/30/2023 03/31/2023 04/01/2023 CBC WBC 3.70 - 11.00 k/uL 9.07 6.96 7.27 6.11 Hemoglobin 11.5 - 15.5 g/dL 9.3 8.0 8.5 8.3 Hemoglobin Total, Whole Blood 11.5 - 15.5 g/dL 12.4 Hematocrit 36.0 - 46.0 % 29.7 25.1 27.2 26.8 Platelet Count 150 - 400 k/uL 396 338 374 334 Abs Neut (ANC) 1.45 - 7.50 k/uL 7.34 Abs Lymph 1.00 - 4.00 k/uL 0.82 Latest Ref Rng & Units 03/29/2023 03/30/2023 03/31/2023 04/01/2023 CMP Sodium 136 - 144 mmol/L 142 141 142 140 Potassium 3.7 - 5.1 mmol/L 3.2 3.3 3.3 4.5 Chloride 97 - 105 mmol/L 102 103 104 105 CO2 22 - 30 mmol/L 30 30 29 27 Glucose 74 - 99 mg/dL 133 87 114 88 BUN 7 - 21 mg/dL 16 14 12 9 Creatinine 0.58 - 0.96 mg/dL 1.37 1.14 0.99 0.95 Calcium 8.5 - 10.2 mg/dL 8.8 8.2 8.4 8.6 AST 13 - 35 U/L 17 12 13 13 ALT 7 - 38 U/L 9 7 7 <5 Alkaline Phosphatase 34 - 123 U/L 82 64 69 66 Latest Ref Rng & Units 10/31/2010 12/27/2010 12/26/2011 12/24/2012 Uric Acid Uric Acid 2.0 - 7.0 mg/dL 7.6 6.6 8.1 6.6 Latest Ref Rng & Units 03/03/2001 03/30/2023 ESR, WSR WSR 0 - 20 mm/hr 14 98 Latest Ref Rng & Units 03/03/2001 03/29/2023 CRP CRP <0.9 mg/dL 0.4 9.0 Latest Ref Rng & Units 03/29/2023 CK CK 42 - 196 U/L 40 Latest Ref Rng & Units 06/29/2006 Hepatitis Screen Heparin Anti Xa <0.10 IU/mL <0.10 Latest Ref Rng & Units 11/21/2006 03/24/2007 12/27/2010 07/02/2017 Antibodies PT Sec 8.4 - 13.0 sec 11.3 11.9 11.2 PT INR 0.8 - 1.2 1.0 1.1 1.0 APTT 22.0 - 34.0 sec 33.4 33.6 30.1 20.8 Latest Ref Rng & Units 01/26/2014 07/02/2017 Urinalysis Protein, Urine Negative mg/dL Negative NEGATIVE RBC, Urine 0.0 - 5.0 /hpf 2.8 Imaging Last XR Chest - Impression Only XR CHEST 1V FRONTAL PORT Exam End: 03/29/2023 6:55 PM (Final result) Impression: IMPRESSION: Findings as described above. ... Physical Exam Constitutional: - Appearance: Normal appearance, no acute distress. HENT: - Head: Atraumatic. - Eyes: - Extraocular Movements: Extraocular movements intact. - Conjunctiva/sclera: Conjunctivae normal. - Pupils: Pupils are equal, round, and reactive to light. Cardiovascular: - Rate and Rhythm: Normal rate and regular rhythm. - Pulses: Normal pulses. - Heart sounds: Normal heart sounds. Pulmonary: - Breath sounds: Normal breath sounds. Musculoskeletal: - Cervical back: Normal range of motion. - No peripheral synovitis - Shoulders FROM no effusion - Elbows FROM no effusion - Wrists FROM no effusion - Hands: Bony prominences, deformities, limited range of motion, and tenderness in the fingers - Hips FROM - Knees with crepitus and tenderness - Ankles FROM no effusion - Feet no MTP squeeze tenderness - Lower extremities: Lymphedema Skin: - General: Skin is warm and dry. Neurological: - General: No focal deficit present. Psychiatric: - Mood and Affect: Mood normal. - Behavior: Behavior normal. 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 Differential diagnosis includes psoriatic arthritis, but clinical presentation is more indicative of erosive osteoarthritis. - Ordered X-ray of the hands to confirm diagnosis and assess the extent of joint damage. - Recommended use of topical analgesics such as Bengay for pain relief. - Advised patient to continue regular exercise to maintain joint mobility and strength. - Discussed the use of finger splints or caps at night to prevent further deformity and reduce pain. - Patient to take Tylenol Arthritis 500 mg twice daily, in the morning and evening, to manage pain. - Referred to occupational therapy for hand exercises and pain management techniques. Medical Decision Making: Problems: Low: Stable chronic illness Data: Unique source(s) for external note(s) reviewed: 3+ Unique test result(s) reviewed: 2 Unique test(s) ordered: 1 Risk: Low: Low risk from testing/treatment Medical Decision Making Level: 3 - Low Orders this visit: Office Visit on 04/08/25 XR HAND/WRIST SURVEY ARTHRITIS 1V PA BILATERAL CONSULT TO COMMERCIAL LOAN OFFICER No follow-ups on file. Arya Archer MD Associate Staff Department of Rheumatic and Immunological Diseases Office number: [phone] - Fax number: [phone] - Appointment: [phone] [1] Social History Tobacco Use Smoking status: Never Smokeless tobacco: Never Vaping Use Vaping status: Never Used Substance Use Topics Alcohol use: No Drug use: No documented in this encounter [facility] 03-17-2025 Note HNO ID: [id number] Author: ANA ROSA RICKETTS PT Service: ? Author Type: Physical Therapist Type: Progress Notes Filed: 03/18/2025 09:24 Note Text: Episode Visit Count: 125 Therapist That Will Accept/Oversee The Plan Of Care: Lm Start of Care Date: 03/13/21 Onset Date: 02/20/21 (past several weeks) Plan of Care Certification Date: 03/17/25 Next Certification Due Date: 06/15/25 Patient Identified by Name and Date of : Yes REHABILITATION AND SPORTS THERAPY PHYSICAL THERAPY RE-EVALUATION PLAN OF CARE UPDATE: Assessment: Amber Koroma demonstrates difficulty with self management of her condition, walking in the community, and dressing. The patient has progressed toward goals. Patient continues to present with impairments in edema management, independence in exercise, overall function, soft tissue healing, symptom management, and wound healing that interfere with walking in the community, stair negotiation, heavy exertion, physical activities, recreational activities, dressing . Current prognosis is Fair due to: chronic nature of impairments, limited support system . Pt arrives with dressings and bandages that have been on for 2 weeks. Drainage went through telfa pads, stockinette and cotton rolls and onto outer layer of bandages. No s/s of infection. Legs not actively weeping. Pt lives alone. Very limited help. Cannot apply bandages or velcro wraps herself. Human Resources Talent Manager states that there are limited resources available to her in [facility]. Pt unsure if she wants to drive this far for therapy. Pt waited until end of session to tell me that she does not want bandages applied to her feet because she is afraid that they will make her fall. Offered to take them off, but did not have time to reapply. Pt needs compression at foot and ankle, as they are swollen. Will need to address in some other way. Pt refused to have them removed here. Said that she would remove bandages once she got home. Is seeing her PCP tomorrow. Will discuss with him what her options may be. Says that she cannot go to [facility], which is closer to home for her because they will not return her phone calls. Told her to call to schedule appointments here, if she chose, after seeing her PCP tomorrow.The patient will benefit from continued skilled therapy [...] Time Frame for Goals and Treatment : 06/15/25 Planned Interventions, Frequency, and Duration: 1x/week, 12 weeks Total Number of Visits Planned: 12 Patient to be seen for Therapeutic exercise (30924), Manual therapy (21682), Therapeutic activities (70254), Self-halfway management (85354), Patient/Family/Caregiver Education, Orthosis / DME, Vasopneumatic Treatment (02803) PLAN FOR NEXT VISIT: skin/wound care; MLD;compression;HEP SUBJECTIVE: . Pt seen for past 5 years in [place] location. PT service for lymphedema (more content not included)... [facility] 03-17-2025 History of Present illness Narrative Images from the original note were not included. Attached media from the original note were not included. Episode Visit Count: 125 Therapist That Will Accept/Oversee The Plan Of Care: Lm Start of Care Date: 03/13/21 Onset Date: 02/20/21 (past several weeks) Plan of Care Certification Date: 03/17/25 Next Certification Due Date: 06/15/25 Patient Identified by Name and Date of : Yes REHABILITATION AND SPORTS THERAPY PHYSICAL THERAPY RE-EVALUATION PLAN OF CARE UPDATE: Assessment: Amber Aubrey Ga demonstrates difficulty with self management of her condition, walking in the community, and dressing. The patient has progressed toward goals. Patient continues to present with impairments in edema management, independence in exercise, overall function, soft tissue healing, symptom management, and wound healing that interfere with walking in the community, stair negotiation, heavy exertion, physical activities, recreational activities, dressing . Current prognosis is Fair due to: chronic nature of impairments, limited support system . Pt arrives with dressings and bandages that have been on for 2 weeks. Drainage went through telfa pads, stockinette and cotton rolls and onto outer layer of bandages. No s/s of infection. Legs not actively weeping. Pt lives alone. Very limited help. Cannot apply bandages or velcro wraps herself. Human Resources Talent Manager states that there are limited resources available to her in [facility]. Pt unsure if she wants to drive this far for therapy. Pt waited until end of session to tell me that she does not want bandages applied to her feet because she is afraid that they will make her fall. Offered to take them off, but did not have time to reapply. Pt needs compression at foot and ankle, as they are swollen. Will need to address in some other way. Pt refused to have them removed here. Said that she would remove bandages once she got home. Is seeing her PCP tomorrow. Will discuss with him what her options may be. Says that she cannot go to [facility], which is closer to home for her because they will not return her phone calls. Told her to call to schedule appointments here, if she chose, after seeing her PCP tomorrow.The patient will benefit from continued skilled therapy [...] Time Frame for Goals and Treatment : 06/15/25 Planned Interventions, Frequency, and Duration: 1x/week, 12 weeks Total Number of Visits Planned: 12 Patient to be seen for Therapeutic exercise (42065), Manual therapy (55623), Therapeutic activities (81031), Self-halfway management (83186), Patient/Family/Caregiver Education, Orthosis / DME, Vasopneumatic Treatment (89868) PLAN FOR NEXT VISIT: skin/wound care; MLD;compression;HEP SUBJECTIVE: . Pt seen for past 5 years in [facility]. PT service for lymphedema no longer offered at that location. Hasn't been seen since October. Says her legs are "a mess". Lives alone. Limited help. Has a nurse acquaintance that comes in occasionally to help. She applied dressings/bandages to her legs 2 weeks ago. Has not removed them or done a skin check in the past 2 weeks. It took her 90 minutes to get here. Not sure she is willing to make the trip to come for treatment. Functional Limitations: walking in the community, stair negotiation, heavy exertion, physical activities, recreational activities, dressing Pain: PROMIS Scales 04/17/2024 Higher is Better Phys Func - T Score 38 (moderate dysfunction) Phys Func - Percentile 12 Self-Eff Symptom - T Score 41 (Average) Self-Eff Symptom - Percentile 18 T-Score and Percentile Interpretation T-scores: mean of general population = 50. 5 points is clinically meaningfully difference Percentiles provide an indication of how the patient's score ranks in relation to the general population. Higher percentile rankings indicate better function/quality of life. 50th percentile is the average of the general population and indicates half of respondents had a worse score. OBJECTIVE MEASURES WITH LEVEL OF FUNCTION: Lymphedema Lymphedema Contributing Factors: Radiation, Lymph Node Removal, History of Cellulitis Skin: Color, Dryness/Flaking Of Skin, Lymphorrhea Lymphorrhea Comments:: No lymphorrhea present today (though several dried areas on padding/stockinette over L anterolateral lower leg and fewer and smaller spots R lower leg. Lower Extremity Circumferential Measurements R Metatarsal Phalangeal (MTP): 24.5 R Arch: 25.4 R 5 cm from floor: 33 cm R 10 cm from floor: 24.8 cm R 20 cm from floor: 38.8 cm R 30 cm from floor: 46.8 cm R 40 cm from floor: 49.5 cm R 50 cm from floor: 49.7 cm R 60 cm from floor: 54.4 cm L Metatarsal Phalangeal (MTP): 23.5 L Arch: 25.5 L 5 cm from floor: 32.6 cm L 10 cm from floor: 26 cm L 20 cm from floor: 45.5 cm L 30 cm from floor: 53 cm L 40 cm from floor: 54 cm L 50 cm from floor: 51.5 cm L 60 cm from floor: 56.6 cm Affected Leg: Bilateral, Left Leg Larger Calculate Volume : Yes R Lower Extremity Volume: 335 L Lower Extremity Volume: 343 Difference in Volume: 8 Difference in % : 2.39 TREATMENT: Re-evaluation: Performed due to return of patient to therapy for same diagnosis. Manual Therapy: 1: removed bandages layers/dressings B LE 2: washed legs with hibiclens brick cleaner 3: measure 5: applied skin protectant, telfa pads, mollelast gauze to open areas B LE 6: applied singlel layer tubigrip F to R LE, G to L LE, toes to below knee 7: applied soft rosidal B LE ankle to below knee 8: applied 10 cm x 10 m SSB toes to below knee B LE 9: applied 12 cm x 5 m SSB B LE ankle to below knee Skilled Intervention: Manual skills to improve joint mobility, ROM, and decrease pain. Utilized anatomy knowledge of the clinician, and assessment of patient's response to intervention. Self-Halfway Management: 1: instructed pt and aide in application of new foam layer vs cotton layer Skilled Intervention: Skilled judgment in the selection of proper modification for activity of daily living/home management based on clinical presentation, deficits, and needs. Billing * Re-Evaluation : 1 Unit Manual TherapyTreatment Minutes: 30 Self-Care/Home Management Treatment Minutes: 10 Skilled Treatment Time Minutes (timed and untimed codes): 55 Total Session Time (minutes): 55 Session Start Time : 1615 Session Stop Time : 1710 Ana Rosa Ricketts PT documented in this encounter [facility] 03-11-2025 Note HNO ID: [id number] Author: RADHA WOOD, ? Service: ? Author Type: Physician Type: Progress Notes Filed: 03/11/2025 22:55 Note Text: Subjective: Patient presents to clinic c/o painful toenails. They state that the nails are especially painful with shoe gear and pressure. Patient states that nails 1-5 b/l are painful. No other pedal complaints at this time. Patient states no change in medications or medical history since last visit. Objective: Patient presents to clinic ambulating in sneakers Vasc: DP and PT pulses are faintly palpable bilateral. CFT is less than 5 seconds bilateral. Skin temperature is warm to cool proximal to distal bilateral. There is mild edema or varicosities noted. Neuro: Protective sensation is decreased to the foot and toes when tested with the 5.07 SWM bilateral. Vibratory sensation is absent at the hallux IPJ bilateral. The hallux is downgoing bilateral. Derm: Nails 1-5 b/l are painful, discolored-yellow, thick, crumbly, dystrophic and with subungal debris. Skin is of normal turgor, texture and hair growth is absent bilateral. There are callus to b/l 5th metatarsal head. No ulcerations, scars, verruca or other lesions noted. Ortho: Muscle strength is 5/5 for all pedal groups tested. Ankle joint DF is decreased with the knee extended with no pain or crepitus noted. 1st MPJ ROM is decreased bilateral. Flattening is noted to b/l feet. 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 Nails 1-5 bilateral were debrided in length and thickness. Callus reduced to b/l 5th metatarsal with fly Discussed flatfoot of b/l lower extremity. Recommend custom orthotics and will order with offloading of b/l 5th metatarsal head Patient is to RTC in 3-4 months. Radha Wood DPM [facility] 03-11-2025 History of Present illness Narrative Subjective: Patient presents to clinic c/o painful toenails. They state that the nails are especially painful with shoe gear and pressure. Patient states that nails 1-5 b/l are painful. No other pedal complaints at this time. Patient states no change in medications or medical history since last visit. Objective: Patient presents to clinic ambulating in sneakers Vasc: DP and PT pulses are faintly palpable bilateral. CFT is less than 5 seconds bilateral. Skin temperature is warm to cool proximal to distal bilateral. There is mild edema or varicosities noted. Neuro: Protective sensation is decreased to the foot and toes when tested with the 5.07 SWM bilateral. Vibratory sensation is absent at the hallux IPJ bilateral. The hallux is downgoing bilateral. Derm: Nails 1-5 b/l are painful, discolored-yellow, thick, crumbly, dystrophic and with subungal debris. Skin is of normal turgor, texture and hair growth is absent bilateral. There are callus to b/l 5th metatarsal head. No ulcerations, scars, verruca or other lesions noted. Ortho: Muscle strength is 5/5 for all pedal groups tested. Ankle joint DF is decreased with the knee extended with no pain or crepitus noted. 1st MPJ ROM is decreased bilateral. Flattening is noted to b/l feet. 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 Nails 1-5 bilateral were debrided in length and thickness. Callus reduced to b/l 5th metatarsal with fly Discussed flatfoot of b/l lower extremity. Recommend custom orthotics and will order with offloading of b/l 5th metatarsal head Patient is to RTC in 3-4 months. Radha Wood DPM AMB ROOMING INTAKE FLOWSHEET DATA Patient presents with: Left Foot - Established Patient, Debridement of Nail Right Foot - Established Patient, Debridement of Nail documented in this encounter [facility] 03-11-2025 Note HNO ID: [id number] Author: DORA ONEILL RN Service: ? Author Type: Registered Nurse Type: Progress Notes Filed: 03/11/2025 22:55 Note Text: AMB ROOMING INTAKE FLOWSHEET DATA Patient presents with: Left Foot - Established Patient, Debridement of Nail Right Foot - Established Patient, Debridement of Nail [facility] 03-02-2025 Discharge summary [facility] 03-02-2025 Discharge summary Note Date/Time March 02, 2025 3:03pm [facility] Medical Records Department [address] [place] [address] Emergency Department Summary 03/02/25 MR#: [id number] Acct: [id number] Name: AMBER KOROMA Rep #:[id number] : 1940 84 From: Malaika Torres PCP: Dr. Tyler Benitez MD Status:REG ER Location: ED HPI [...] couple weeks ago which was negativefor DVT. 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 Reading Location: [facility] Rhythm Strip Rhythm Strip: Sinus Rhythm Rate: [...] DAILY Qty: 90 3RF Primary Care Provider: Tyler Benitez Referrals: Tyler Benitez MD [Primary Care Provider] - Activity Restrictions/Additional Instructions: Please take your torsemide 20 mg tablet twice a day. Take your first dose tonight when you get home. Dr. Benitez ordered labs for you to be drawn this Saturday, you can go to the lab at [facility] to have the done. His office will reach out if he was following up next week. Elevate your legs and try to keep them tightly wrapped is much as possible. If you feel that you have worsening symptoms or further concerns please return to the emergency room. Print Language: Welsh Disposition Disposition: Home, Self Care What to do if you have Problems For any increased pain, shortness of breath, bleeding, nausea or vomiting, chestpain, or any unexpected problems, contact your Primary Care Provider. Call [facility] ([phone]) or report to the closest Emergency Room. Call 911 if necessary. 03/02/25 1503 <Electronically signed by Malaika Yuen DO> Cosigner Signature (if applicable): CC: Dr. Tyler Benitez MD ~ Signed [facility] Work Phone: 1(363) 763-994307-08-2025 Radiology Diagnostic study note [facility] Imaging Services [address] [place] [address] Chest PA and Lateral MR#: [id number] Acct: [id number] Name: AMBER KOROMA Rep #: [id number] : 1940 F 84 From: Imelda Lazo MD PCP: Dr. Tyler Benitez MD Status: REG ER Study:Chest PA and Lateral Date of Exam: 03/02/25 Exam# [id number] Ordering Dr: Marisol Yuen DO EXAM: XR Chest, 2 Views CLINICAL INDICATION: SOB TECHNIQUE: Frontal and lateral views of the chest. COMPARISON: No relevant prior studies available. FINDINGS: LUNGS AND PLEURAL SPACES: See below. HEART: Cardiomegaly with mild congestion. MEDIASTINUM: Unremarkable. Normal mediastinal contour. BONES/JOINTS: Unremarkable. No acute fracture. RAD/Chest PA and Lateral IMPRESSION: Cardiomegaly with mild congestion. Reading Location: [facility] CC: Dr. Malaika Yuen DO; Dr. Tyler Benitez MD ~ Retail Wireless Sales Representative: Signed [facility]06-27-2025 Telephone encounter Note* Telephone Encounter - Mary Dnana Lee - 02/19/2025 9:16 AM EDT Armand from [facility] calling in stating they received an order for PT from [facility].However, he states the order needs to be for Occupational Therapy to be able to go through them. Theirfax number is [phone]. Please review and advise. Danna Hernandez February 19, 2025 9:17 AM [facility]06-27-2025 Miscellaneous Notes* Telephone Encounter - Danna Hernandez - 02/19/2025 9:16 AM EDT Armand from [facility] calling in stating they received an order for PT from [facility].However, he states the order needs to be for Occupational Therapy to be able to go through them. Theirfax number is [phone]. Please review and advise. Danna Hernandez February 19, 2025 9:17 AM [facility] Telephone encounter Note * Telephone Encounter - [...] for leg and feet swelling and seeing prerna lemon on Saturday for Lymphedema therapy. Charla Benitez LPN [facility] Work Phone: 1(788) 887-156704-01-2025 Miscellaneous Notes* Telephone Encounter - Charla Benitez [...] for leg and feet swelling and seeing prerna lemon on Saturday for Lymphedema therapy. Charla [...] her legs and feet. [facility] Telephone encounter Note * Telephone Encounter - [...] to do for her legs and feet. [facility]03-28-2025 NoteHNO ID: [id number] Author: PRERNA BONDS, PT Service: ? Author Type: Physical Therapist Type: Progress Notes Filed: 11/20/2024 16:13 Note Text: Episode Visit Count: 124 Therapist That Will Accept/Oversee The Plan Of Care: Prerna Bonds Start of Care Date: 03/13/21 Onset Date: 02/20/21 (past several weeks) Plan of Care Certification Date: 11/13/24 Next Certification Due Date: 01/13/25 Patient Identified by Name and Date of : Yes REHABILITATION AND SPORTS THERAPY PHYSICAL THERAPY TREATMENT NOTE ASSESSMENT: Amber Koroma tolerated the session with no issues. [...] : 1447 Session Stop Time : 1553 Prerna Bonds [facility]03-28-2025 History of Present illness Narrative* Prerna Bonds, PT - 11/20/2024 4:01 PM EDT Episode Visit Count: 124 Therapist That Will Accept/Oversee The Plan Of Care: Prerna Bonds Start of Care Date: 03/13/21 Onset Date: 02/20/21 (past several weeks) Plan of Care Certification Date: 11/13/24 Next Certification Due Date: 01/13/25 Patient Identified by Name and Date of : Yes REHABILITATION AND SPORTS THERAPY PHYSICAL THERAPY TREATMENT NOTE ASSESSMENT: Amber Koroma tolerated the session with no issues. [...] Time : 1447 Session Stop Time : 155 [facility]rna Bonds PT [place] [address]-21-2025 NoteHNO ID: [id number] Author: PRERNA BONDS, PT Service: ? Author Type: Physical Therapist Type: Progress Notes Filed: 11/13/2024 16:42 Note Text: Episode Visit Count: 123 Therapist That Will Accept/Oversee The Plan Of Care: Prerna Bonds Start of Care Date: 03/13/21 Onset Date: 02/20/21 (past several weeks) Plan of Care Certification Date: 11/13/24 Next Certification Due Date: 01/13/25 Patient Identified by Name and Date of : Yes REHABILITATION AND SPORTS THERAPY PHYSICAL THERAPY PROGRESS REPORT PLAN OF CARE UPDATE: Assessment: Amber Koroma demonstrates difficulty with increased edema and [...] Patient to be seen for Therapeutic exercise (96983), Manual therapy (26340), Self-halfway management (61434), Patient/Family/Caregiver Education PLAN FOR NEXT VISIT: Continue [...] Comments:: Present at B (more content not included)...[facility]03-21-2025 History of Present illness Narrative* Prerna Bonds, PT - 11/13/2024 4:03 PM EDT Images from the original note were not included. Episode Visit Count: 123 Therapist That Will Accept/Oversee The Plan Of Care: Prerna Bonds Start of Care Date: 03/13/21 Onset Date: 02/20/21 (past several weeks) Plan of Care Certification Date: 11/13/24 Next Certification Due Date: 01/13/25 Patient Identified by Name and Date of : Yes REHABILITATION AND SPORTS THERAPY PHYSICAL THERAPY PROGRESS REPORT PLAN OF CARE UPDATE: Assessment: Amber Koroma demonstrates difficulty with increased edema and [...] Patient to be seen for Therapeutic exercise (09866), Manual therapy (66760), Self-halfway management (26975), Patient/Family/Caregiver Education PLAN FOR NEXT VISIT: Continue [...] Extremity Volume: 6860 L Lower Extremity Volume: 25395 Difference in Volume: 4732 Difference in % [...] Time : 1445 Session Stop Time : 1552 Prerna Bonds PT [facility] Telephone encounter Note * Telephone Encounter - Teresita Rawls - 11/09/2024 4:44 PM EDT Patient contacted office to request physical therapist to call her back [place]. Patient reports "leaking fluid out of foot". Patient became agitated that she was not transferred to directly speak with therapist. Patient states ER will not help her. Please contact patient to advise on plan of care. [facility]03-17-2025 Miscellaneous Notes* Telephone Encounter - Teresita Rawls - 11/09/2024 4:44 PM EDT Patient contacted office to request physical therapist to call her back [place]. Patient reports "leaking fluid out of foot". Patient became agitated that she was not transferred to directly speak with therapist. Patient states ER will not help her. Please contact patient to advise on plan of care. [facility]25 NoteHNO ID: [id number] Author: PRERNA BONDS, PT Service: ? Author Type: Physical Therapist Type: Progress Notes Filed: 10/30/2024 16:17 Note Text: Episode Visit Count: 122 Therapist That Will Accept/Oversee The Plan Of Care: Prerna Bonds Start of Care Date: 03/13/21 Onset Date: 02/20/21 (past several weeks) Plan of Care Certification Date: 09/17/24 Next Certification Due Date: 11/02/24 Patient Identified by Name and Date of : Yes REHABILITATION AND SPORTS THERAPY PHYSICAL THERAPY TREATMENT NOTE ASSESSMENT: Amber Koroma tolerated the session with no issues. She demonstrated difficulty with increased edema, significant lymphorrhea, and skin breakdown B lower legs. The patient will continue to benefit from ongoing skilled physical therapy for reassessment by supervising therapist. PLAN FOR NEXT VISIT: POC update SUBJECTIVE: Pt states she has not been out of her house since end of August. she reports her legs are weeping again, [...] : 1450 Session Stop Time : 1545 Prerna Bonds [facility]03-07-2025 History of Present illness Narrative* Prerna Bonds, PT - 10/30/2024 4:01 PM EST Episode Visit Count: 122 Therapist That Will Accept/Oversee The Plan Of Care: Vamshi Prerna Start of Care Date: 03/13/21 Onset Date: 02/20/21 (past several weeks) Plan of Care Certification Date: 09/17/24 Next Certification Due Date: 11/02/24 Patient Identified by Name and Date of : Yes REHABILITATION AND SPORTS THERAPY PHYSICAL THERAPY TREATMENT NOTE ASSESSMENT: Amber Koroma tolerated the session with no issues. She demonstrated difficulty with increased edema, significant lymphorrhea, and skin breakdown B lower legs. The patient will continue to benefit from ongoing skilled physical therapy for reassessment by supervising therapist. PLAN FOR NEXT VISIT: POC update SUBJECTIVE: Pt states she has not been out of her house since end of August. she reports her legs are weeping again, [...] Time : 1450 Session Stop Time : 1544 Prerna Bonds PT [facility]25 NoteHNO ID: [id number] Author: PRERNA BONDS PT Service: ? Author Type: Physical Therapist Type: Progress Notes Filed: 09/25/2024 16:21 Note Text: Episode Visit Count: 121 Therapist That Will Accept/Oversee The Plan Of Care: Prerna Bonds Start of Care Date: 03/13/21 Onset Date: 02/20/21 (past several weeks) Plan of Care Certification Date: 09/17/24 Next Certification Due Date: 11/02/24 Patient Identified by Name and Date of : Yes REHABILITATION AND SPORTS THERAPY PHYSICAL THERAPY TREATMENT NOTE ASSESSMENT: Amber Koroma tolerated the session with no issues. [...] both legs and feet. (Of note, pt's aide, Patrizia, washed her legs and feet with a [...] : 1448 Session Stop Time : 1555 Prerna Bonds [facility]01-31-2025 History of Present illness Narrative* Prerna Bonds, PT - 09/25/2024 2:54 PM EST Episode Visit Count: 121 Therapist That Will Accept/Oversee The Plan Of Care: IsaPrerna rock Start of Care Date: 03/13/21 Onset Date: 02/20/21 (past several weeks) Plan of Care Certification Date: 09/17/24 Next Certification Due Date: 11/02/24 Patient Identified by Name and Date of : Yes REHABILITATION AND SPORTS THERAPY PHYSICAL THERAPY TREATMENT NOTE ASSESSMENT: Amber Koroma tolerated the session with no issues. [...] : 1448 Session Stop Time : 1555 Prerna Bonds PT [facility]25 NoteHNO ID: [id number] Author: PRERNA BONDS PT Service: ? Author Type: Physical Therapist Type: Progress Notes Filed: 09/04/2024 16:39 Note Text: Episode Visit Count: 120 Therapist That Will Accept/Oversee The Plan Of Care: Prerna Bonds Start of Care Date: 03/13/21 Onset Date: 02/20/21 (past several weeks) Plan of Care Certification Date: 09/17/24 Next Certification Due Date: 11/02/24 Patient Identified by Name and Date of : Yes REHABILITATION AND SPORTS THERAPY PHYSICAL THERAPY PROGRESS REPORT PLAN OF CARE UPDATE: Assessment: Amber Koroma demonstrates difficulty with skin care, soft [...] Mostly Independent. States has a private caregiver aPtrizia. Patient states she was staying with Patrizia [...] Patient to be seen for Therapeutic exercise (86786), Manual therapy (41912), Self-halfway management (69741), Patient/Family/Caregiver Education PLAN FOR NEXT VISIT: Resume [...] Dryness/Flaking of Skin Commen (more content not included)...[facility]01-10-2025 History of Present illness Narrative* Prerna Bonds, PT - 09/04/2024 2:48 PM EST Images from the original note were not included. Episode Visit Count: 120 Therapist That Will Accept/Oversee The Plan Of Care: Prerna Bonds Start of Care Date: 03/13/21 Onset Date: 02/20/21 (past several weeks) Plan of Care Certification Date: 09/17/24 Next Certification Due Date: 11/02/24 Patient Identified by Name and Date of : Yes REHABILITATION AND SPORTS THERAPY PHYSICAL THERAPY PROGRESS REPORT PLAN OF CARE UPDATE: Assessment: Amber Koroma demonstrates difficulty with skin care, soft [...] Patient to be seen for Therapeutic exercise (02720), Manual therapy (55388), Self-halfway management (51211), Patient/Family/Caregiver Education PLAN FOR NEXT VISIT: Resume [...] Extremity Volume: 6813 L Lower Extremity Volume: 06930 Difference in Volume: 4609 Difference in % [...] : 1445 Session Stop Time : 1600 Prerna Bonds PT [facility]24 NoteHNO ID: [id number] Author: PRERNA BONDS PT Service: ? Author Type: Physical Therapist Type: Progress Notes Filed: 07/17/2024 17:13 Note Text: Episode Visit Count: 119 Therapist That Will Accept/Oversee The Plan Of Care: Prerna Bonds Start of Care Date: 03/13/21 Onset Date: 02/20/21 (past several weeks) Plan of Care Certification Date: 09/16/24 Next Certification Due Date: 06/21/24 Patient Identified by Name and Date of : Yes REHABILITATION AND SPORTS THERAPY PHYSICAL THERAPY PROGRESS REPORT PLAN OF CARE UPDATE: Assessment: Amber Koroma demonstrates difficulty with L lower leg [...] Patient to be seen for Therapeutic exercise (51308), Manual therapy (19375), Self-halfway management (09766), Patient/Family/Caregiver Education PLAN FOR NEXT VISIT: LE [...] prior to reapp (more content not included)... [facility]11-22-2024 History of Present illness Narrative* Prerna Bonds, PT - 07/17/2024 4:48 PM EST Images from the original note were not included. Episode Visit Count: 119 Therapist That Will Accept/Oversee The Plan Of Care: Prerna Bonds Start of Care Date: 03/13/21 Onset Date: 02/20/21 (past several weeks) Plan of Care Certification Date: 09/16/24 Next Certification Due Date: 06/21/24 Patient Identified by Name and Date of : Yes REHABILITATION AND SPORTS THERAPY PHYSICAL THERAPY PROGRESS REPORT PLAN OF CARE UPDATE: Assessment: Amber Koroma demonstrates difficulty with L lower leg [...] Patient to be seen for Therapeutic exercise (11203), Manual therapy (44822), Self-halfway management (80691), Patient/Family/Caregiver Education PLAN FOR NEXT VISIT: LE [...] sure of when she can get a locomotive driver to bring her. Pt was placed [...] : 1500 Session Stop Time : 1610 Prerna Bonds PT [facility]* Diagnosis Onset Date Resolution Status Admit Date Osteoarthritis of right knee acute July 14, 2024 1:11pm Osteoarthritis of right knee acute August 11, 2024 3:52pm Osteoarthritis of right knee acute August 21, 2024 2:12pm Osteoarthritis of right knee acute August 27, 2024 2:58pm [facility] Work Phone: 1(652) 195-833011-15-2024 NoteHNO ID: [id number] Author: PRERNA BONDS PT Service: ? Author Type: Physical Therapist Type: Progress Notes Filed: 07/10/2024 16:38 Note Text: Episode Visit Count: 118 Therapist That Will Accept/Oversee The Plan Of Care: Prerna Bonds Start of Care Date: 03/13/21 Onset Date: 02/20/21 (past several weeks) Plan of Care Certification Date: 04/17/24 Next Certification Due Date: 06/21/24 Patient Identified by Name and Date of : Yes REHABILITATION AND SPORTS THERAPY PHYSICAL THERAPY TREATMENT NOTE ASSESSMENT: Amber Koroma tolerated the session with no issues. [...] : 1455 Session Stop Time : 1602 Prerna Bonds, [facility]11-15-2024 History of Present illness Narrative* Prerna Bonds, PT - 07/10/2024 4:25 PM EST Episode Visit Count: 118 Therapist That Will Accept/Oversee The Plan Of Care: Prerna Bonds Start of Care Date: 03/13/21 Onset Date: 02/20/21 (past several weeks) Plan of Care Certification Date: 04/17/24 Next Certification Due Date: 06/21/24 Patient Identified by Name and Date of : Yes REHABILITATION AND SPORTS THERAPY PHYSICAL THERAPY TREATMENT NOTE ASSESSMENT: Amber Koroma tolerated the session with no issues. [...] : 1455 Session Stop Time : 1602 Prerna Bonds PT [facility]Core[facility]10-30-[facility]24 NoteHNO ID: [id number] Author: PRERNA BONDS PT Service: ? Author Type: Physical Therapist Type: Progress Notes Filed: 06/24/2024 17:39 Note Text: Episode Visit Count: 117 Therapist That Will Accept/Oversee The Plan Of Care: Prerna Bonds Start of Care Date: 03/13/21 Onset Date: 02/20/21 (past several weeks) Plan of Care Certification Date: 04/17/24 Next Certification Due Date: 06/21/24 Patient Identified by Name and Date of : Yes REHABILITATION AND SPORTS THERAPY PHYSICAL THERAPY TREATMENT NOTE ASSESSMENT: Amber Koroma tolerated the session with no issues. [...] take her water pill yesterday and was "up all night going to the bathroom'. She [...] : 1607 Session Stop Time : 1720 Prerna Bonds [facility]10-30-2024 History of Present illness Narrative* Prerna Bonds, PT - 06/24/2024 5:25 PM EDT Episode Visit Count: 117 Therapist That Will Accept/Oversee The Plan Of Care: Prerna Bonds Start of Care Date: 03/13/21 Onset Date: 02/20/21 (past several weeks) Plan of Care Certification Date: 04/17/24 Next Certification Due Date: 06/21/24 Patient Identified by Name and Date of : Yes REHABILITATION AND SPORTS THERAPY PHYSICAL THERAPY TREATMENT NOTE ASSESSMENT: Amber Koroma tolerated the session with no issues. [...] take her water pill yesterday and was "up all night going to the bathroom'. She [...] : 1607 Session Stop Time : 1720 Prerna Bonds PT documented [facility] encounterCore[facility]10-25-[facility]24 NoteHNO ID: [id number] Author: PRERNA BONDS PT Service: ? Author Type: Physical Therapist Type: Progress Notes Filed: 06/19/2024 17:00 Note Text: Episode Visit Count: 116 Therapist That Will Accept/Oversee The Plan Of Care: Prerna Bonds Start of Care Date: 03/13/21 Onset Date: 02/20/21 (past several weeks) Plan of Care Certification Date: 04/17/24 Next Certification Due Date: 06/21/24 Patient Identified by Name and Date of : Yes REHABILITATION AND SPORTS THERAPY PHYSICAL THERAPY TREATMENT NOTE ASSESSMENT: Amber Koroma tolerated the session with no issues. She demonstrated difficulty with increased edema and lymphorrhea B LEs today. Strongly encouraged pt to talk with her medical doctor or bookkeeping clerk in regards to any changing (stopping) of [...] Pt states she has not taken her "water pill" for the last 3 weeks because she [...] Extremity Volume: 6971 L Lower Extremity Volume: 06549 Difference in Volume: 4059 Difference in % [...] to talk with her medical doctor or bookkeeping clerk in regards to any changing (stopping) of [...] : 1458 Session Stop Time : 1600 Prerna Bonds [facility]10-25-2024 History of Present illness Narrative* Prerna Bonds, PT - 06/19/2024 2:55 PM EDT Episode Visit Count: 116 Therapist That Will Accept/Oversee The Plan Of Care: Prerna Bonds Start of Care Date: 03/13/21 Onset Date: 02/20/21 (past several weeks) Plan of Care Certification Date: 04/17/24 Next Certification Due Date: 06/21/24 Patient Identified by Name and Date of : Yes REHABILITATION AND SPORTS THERAPY PHYSICAL THERAPY TREATMENT NOTE ASSESSMENT: Amber Koroma tolerated the session with no issues. She demonstrated difficulty with increased edema and lymphorrhea B LEs today. Strongly encouraged pt to talk with her medical doctor or bookkeeping clerk in regards to any changing (stopping) of [...] Pt states she has not taken her "water pill" for the last 3 weeks because she [...] Extremity Volume: 6971 L Lower Extremity Volume: 09874 Difference in Volume: 4059 Difference in % [...] to talk with her medical doctor or bookkeeping clerk in regards to any changing (stopping) of [...] : 1458 Session Stop Time : 1600 Prerna Bonds PT documented [facility] encounterCore[facility]10-04-[facility]24 NoteHNO ID: [id number] Author: PRERNA BONDS PT Service: ? Author Type: Physical Therapist Type: Progress Notes Filed: 06/19/2024 16:46 Note Text: Episode Visit Count: 115 Therapist That Will Accept/Oversee The Plan Of Care: Prerna Bonds Start of Care Date: 03/13/21 Onset Date: 02/20/21 (past several weeks) Plan of Care Certification Date: 04/17/24 Next Certification Due Date: 06/21/24 Patient Identified by Name and Date of : Yes REHABILITATION AND SPORTS THERAPY PHYSICAL THERAPY TREATMENT NOTE ASSESSMENT: Amber Koroma tolerated the session with no issues. She demonstrated improvements in softening of underlying tissue (reduced fibrosis). The patient will continue to benefit from ongoing skilled physical therapy to progress toward set goals. PLAN FOR NEXT VISIT: Aubrey HANNA, measure volume, continue facilitation of pt obtaining garment. SUBJECTIVE: Pt had called to notify of her locomotive driver arriving late to pick her up. [...] : 1540 Session Stop Time : 164 Prerna Bonds [facility]10-04-2024 History of Present illness Narrative* Prerna Bonds, PT - 05/29/2024 5:00 PM EDT [...] SPORTS THERAPY PHYSICAL THERAPY TREATMENT NOTE ASSESSMENT: Amberanupama Koroma tolerated the session with no issues. She demonstrated improvements in softening of underlying tissue (reduced fibrosis). The patient will continue to benefit from ongoing skilled physical therapy to progress toward set goals. PLAN FOR NEXT VISIT: Aubrey LAZO MLD, measure volume, continue facilitation of pt obtaining garment. SUBJECTIVE: Pt had called to notify of her locomotive driver arriving late to pick her up. [...] : 1540 Session Stop Time : 164 Prerna Bonds PT documented in this encounterCore[facility]09-27-[facility]24 NoteHNO ID: [id number] Author: PRERNA BONDS PT Service: ? Author Type: Physical Therapist Type: Progress Notes Filed: 06/19/2024 17:07 Note Text: Episode Visit Count: 114 Therapist That Will Accept/Oversee The Plan Of Care: Prerna Bonds Start of Care Date: 03/13/21 Onset Date: 02/20/21 (past several weeks) Plan of Care Certification Date: 04/17/24 Next Certification Due Date: 06/21/24 Patient Identified by Name and Date of : Yes REHABILITATION AND SPORTS THERAPY PHYSICAL THERAPY PROGRESS REPORT PLAN OF CARE UPDATE: Assessment: Amber Koroma demonstrates difficulty with B LE edema, [...] Patient to be seen for Therapeutic exercise (42230), Manual therapy (22001), Self-halfway management (36783), Patient/Family/Caregiver Education PLAN FOR NEXT VISIT: Continue MLD and compression wrapping. measure leg volume next visit. Continue to facilitate pt obtaining self-managable compression prior to discharge end of May. SUBJECTIVE: Pt reporting she is unsure if she will have transportation for remaining visits. She is waiting to hear back from a possible locomotive driver if available. Functional Limitations: walking in [...] short-stretch supplies in t (more content not included)...[facility]09-27-2024 History of Present illness Narrative* Prerna Bonds, PT - 05/22/2024 2:52 PM EDT Images from the original note were not included. Episode Visit Count: 114 Therapist That Will Accept/Oversee The Plan Of Care: Prerna Bonds Start of Care Date: 03/13/21 Onset Date: 02/20/21 (past several weeks) Plan of Care Certification Date: 04/17/24 Next Certification Due Date: 05/16/24 Patient Identified by Name and Date of : Yes REHABILITATION AND SPORTS THERAPY PHYSICAL THERAPY PROGRESS REPORT PLAN OF CARE UPDATE: Assessment: Amber Koroma demonstrates difficulty with B LE edema, [...] Patient to be seen for Therapeutic exercise (47094), Manual therapy (76278), Self-halfway management (08313), Patient/Family/Caregiver Education PLAN FOR NEXT VISIT: Continue MLD and compression wrapping. measure leg volume next visit. Continueto facilitate pt obtaining self-managable compression prior to discharge may. SUBJECTIVE: Pt reporting she is unsure if she will have transportation for remaining visits. She iswaiting to hear back from a possible locomotive driver if available. Functional Limitations: walking in [...] : 1451 Session Stop Time : 1605 Prerna Bonds PT documented in this encounterCorey [facility]09-13-[facility]24 NoteHNO ID: [id number] Author: PRERNA BONDS PT Service: ? Author Type: Physical Therapist Type: Progress Notes Filed: 05/08/2024 17:00 Note Text: Episode Visit Count: 113 Therapist That Will Accept/Oversee The Plan Of Care: Prerna Bonds Start of Care Date: 03/13/21 Onset Date: 02/20/21 (past several weeks) Plan of Care Certification Date: 04/17/24 Next Certification Due Date: 05/16/24 Patient Identified by Name and Date of : Yes REHABILITATION AND SPORTS THERAPY PHYSICAL THERAPY TREATMENT NOTE ASSESSMENT: Amber Koroma tolerated the session with no issues. She demonstrated improvements in skin and soft tissue condition. The patient will continue to benefit from ongoing skilled physical therapy to progress toward set goals. PLAN FOR NEXT VISIT: POC update. SUBJECTIVE: Pt reporting she will have her nephew call to order more bandaging supplies. She states she is looking for another locomotive driver to hire for her transportation. Her [...] lymphatic dynamics and improve condition of tissue. Self-Halfway Management: 1: Educated pt and her nephew [...] : 1450 Session Stop Time : 1600 Prerna Bonds [facility]09-13-2024 History of Present illness Narrative* Prerna Bonds, PT - 05/08/2024 2:58 PM EDT Episode Visit Count: 113 Therapist That Will Accept/Oversee The Plan Of Care: Prerna Bonds Start of Care Date: 03/13/21 Onset Date: 02/20/21 (past several weeks) Plan of Care Certification Date: 04/17/24 Next Certification Due Date: 05/16/24 Patient Identified by Name and Date of : Yes REHABILITATION AND SPORTS THERAPY PHYSICAL THERAPY TREATMENT NOTE ASSESSMENT: Amber Koroma tolerated the session with no issues. She demonstrated improvements in skin and soft tissue condition. The patient will continue to benefit from ongoing skilled physicaltherapy to progress toward set goals. PLAN FOR NEXT VISIT: POC update. SUBJECTIVE: Pt reporting she will have her nephew call to order more bandaging supplies. She statesshe is looking for another locomotive driver to hire for her transportation. Her [...] lymphatic dynamics and improve condition of tissue. Self-Halfway Management: 1: Educated pt and her nephew [...] : 1450 Session Stop Time : 1600 Prerna Bonds PT documented in this encounterCorey [facility]08-30-[facility]24 NoteHNO ID: [id number] Author: PRERNA BONDS PT Service: ? Author Type: Physical Therapist Type: Progress Notes Filed: 04/24/2024 16:13 Note Text: Episode Visit Count: 112 Therapist That Will Accept/Oversee The Plan Of Care: Prerna Bonds Start of Care Date: 03/13/21 Onset Date: 02/20/21 (past several weeks) Plan of Care Certification Date: 04/17/24 Next Certification Due Date: 05/16/24 Patient Identified by Name and Date of : Yes REHABILITATION AND SPORTS THERAPY PHYSICAL THERAPY TREATMENT NOTE ASSESSMENT: Amber Koroma tolerated the session with no issues. [...] tow. (She was removing wraps while in [facility] waiting area prior to her appt. [...] : 1448 Session Stop Time : 1550 Prerna Bonds [facility]08-30-2024 History of Present illness Narrative* Prerna Bonds, PT - 04/24/2024 4:03 PM EDT Episode Visit Count: 112 Therapist That Will Accept/Oversee The Plan Of Care: Prerna Bonds Start of Care Date: 03/13/21 Onset Date: 02/20/21 (past several weeks) Plan of Care Certification Date: 04/17/24 Next Certification Due Date: 05/16/24 Patient Identified by Name and Date of : Yes REHABILITATION AND SPORTS THERAPY PHYSICAL THERAPY TREATMENT NOTE ASSESSMENT: Amber Koroma tolerated the session with no issues. [...] in tow. (She wasremoving wraps while in [facility] waiting area prior to her appt. [...] : 1448 Session Stop Time : 1550 Prerna Bonds PT documented in this encounterCorey Hospital08-23-2024 NoteHNO ID: [id number] Author: PRERNA BONDS PT Service: ? Author Type: Physical Therapist Type: Progress Notes Filed: 04/17/2024 15:37 Note Text: Episode Visit Count: 111 Therapist That Will Accept/Oversee The Plan Of Care: Prerna Bonds Start of Care Date: 03/13/21 Onset Date: 02/20/21 (past several weeks) Plan of Care Certification Date: 04/17/24 Next Certification Due Date: 05/16/24 Patient Identified by Name and Date of : Yes REHABILITATION AND SPORTS THERAPY PHYSICAL THERAPY PROGRESS REPORT PLAN OF CARE UPDATE: Assessment: Amber Koroma demonstrates difficulty with edema management, walking [...] and inelastic compression. SUBJECTIVE: Pt reports her locomotive driver was late. She brings her supplies [...] 15 cm from floor: (more content not included)...[facility] 04-17-2024 History of Present illness Narrative* Prerna Bonds, PT - 04/17/2024 3:13 PM EDT Images from the original note were not included. Episode Visit Count: 111 Therapist That Will Accept/Oversee The Plan Of Care: Prerna Bonds Start of Care Date: 03/13/21 Onset Date: 02/20/21 (past several weeks) Plan of Care Certification Date: 04/17/24 Next Certification Due Date: 05/16/24 Patient Identified by Name and Date of : Yes REHABILITATION AND SPORTS THERAPY PHYSICAL THERAPY PROGRESS REPORT PLAN OF CARE UPDATE: Assessment: Amber Koroma demonstrates difficulty with edema management, walking [...] and inelastic compression. SUBJECTIVE: Pt reports her locomotive driver was late. She brings her supplies [...] : 1315 Session Stop Time : 1400 Prerna Bonds PT documented in this encounterCorey Hospital08-09-[facility] History of Present illness Narrative* Prerna Bonds PT - 04/03/2024 1:01 PM EDT Episode Visit Count: 110 Therapist That Will Accept/Oversee The Plan Of Care: Prerna Bonds Start of Care Date: 03/13/21 Onset Date: 02/20/21 (past several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 [...] observed today. Dried drainage on both pads (2"x2") over ruptured blisters distal R lower leg. TREATMENT: Manual Therapy: 1: Removed short stretch bandages B lower legs. 2: Replaced 2"x2" non-stick pads with generic Neosporin over both [...] and assessment of patient's response to intervention. Self-Halfway Management: 1: Reinforced importance of skin care, [...] : 1543 Session Stop Time : 1645 Prerna Bonds PT documented in this encounterCorey Hospital09-08-2023 History of Present illness Narrative* Prerna Bonds PT - 05/03/2023 1:07 PM EDT Episode Visit Count: 78 Therapist That Will Accept/Oversee The Plan Of Care: Prerna Bonds Start of Care Date: 03/13/21 Onset Date: 02/20/21 (past several weeks) Plan of Care Certification Date: 04/12/23 Next Certification Due Date: 06/12/23 Patient Identified by Name and Date of : Yes REHABILITATION AND SPORTS THERAPY PHYSICAL THERAPY TREATMENT NOTE ASSESSMENT: Amber Koroma tolerated the session with no issues. [...] appt. and presents with a paper stating, "Please supply and apply bactroban" adn pt states they wanted it applied to her leg before it is wrapped. Pt states she was unable to find the bag with all of her bandaging supplies in it, so she only has a few wraps with her today. Therapist spent time on phone to contact physician (Dr. Norton) to clarify his instructions for pt. Spoke with [facility] on-call nurse who stated she would inquire with Dr. Norton and return message. Therapist called again at 12:03 and got recording that [facility] office is closed from 12;00-1:30pm. Instructed [...] weeping/lymphorrhea observed today. 2 round areas about <2"x2" of openwound (red,shiny tissue) and one clear blister about 1/2"x2" horizontally at distal anterior R lower leg. [...] : 1130 Session Stop Time : 1302 Prerna Bonds PT documented in this encounterCorey Hospital08-30-2023 History of Present illness Narrative* Prerna Bonds PT - 04/24/2023 3:48 PM EDT Episode Visit Count: 77 Therapist That Will Accept/Oversee The Plan Of Care: Prerna Bonds Start of Care Date: 03/13/21 Onset Date: 02/20/21 (past several weeks) Plan of Care Certification Date: 04/12/23 Next Certification Due Date: 06/12/23 Patient Identified by Name and Date of : Yes REHABILITATION AND SPORTS THERAPY PHYSICAL THERAPY TREATMENT NOTE ASSESSMENT: Amber Koroma tolerated the session with no issues. [...] legs elevated as she was in the longterm. She states she left the longterm late last night and is getting settled back at her home now. Pain: Pain Pain Level: 0 Post Treatment Pain Post Treatment Pain Level: No Change OBJECTIVE MEASURES WITH LEVEL OF FUNCTION: Lymphedema Comment: Guaze wraps (3"wide) on mid lower legs with elastric wraps [...] guaze wraps that were placed on at longterm. 2: MLD B LE sequence. 3: Applied [...] and assessment of patient's response to intervention. Self-Halfway Management: 1: Strongly encouraged pt to decrease [...] : 334 Session Stop Time : 1656 Prerna Bonds PT documented in this encounterCorey Hospital08-25-2023 Discharge summary Author Armand Bob [facility] April 19, 2023 1:28pm Note Date/Time April 19, 2023 1: 22pm [facility] Medical Records Department [address] [place] [address] Discharge Summary 04/19/23 1320 MR#: [id number] Acct: [id number] Name: AMBER KOROMA Rep #:[id number] : 1940 82 From: Armand Bob MD PCP: Dr. Tyler Benitez MD Status:ADM DEQUAN Location: MS3 [id number] Providers Date of Admission: 04/15/23 Date of Discharge: 04/19/23 Primary Care Physician: Dr. Tyler Benitez MD Consultations 04/15/23 16:08 Consult: Onc/Wound/office employee Routine Comment: Reason for Consult:: B/L leg [...] for PT OT eval and social media senior associate to assist with discharge planning ? 04/17/2023 awaiting placement in a alf facility ? 04/18/2020 did complain of significant [...] Attending Provider: Armand Bob Primary Care Provider: Tyler Benitez Consulting Providers: Mariusz Waters Discharge Orders/Prescriptions [...] qid X10 days; Referrals / Follow Up: Tyler Benitez MD [Primary Care Provider] - Disposition Disposition (needs filled in before D/C Order can be placed): Half-Way Facility Charges/Coding Visit Charges Inpatient E&M: 77268 Disch Hosp >30min 04/19/231327 <Electronically signed by Armand Bob MD> Cosigner Signature (if applicable): CC: Dr. Armand Bob MD; Dr. Tyler Benitez MD~ Signed [facility] Work Phone: 1(751) 688-545108-25-2023 Discharge summary Author Armand Bob [facility] April 19, 2023 1:20pm Note Date/Time April 19, 2023 1: 20pm [facility] Medical Records Department [address] [place] [address] Transfer to [facility] MR#: [id number] Acct: [id number] Name: AMBER KOROMA Rep #:[id number] : 1940 82 From: Armand Bob MD PCP: Dr. Tyler Benitez MD Status:ADM DEQUAN Certification of patient admission REQUIRED AT TIME OF ADMISSION. I CERTIFY THAT POST-HOSPITAL ECF SERVICES ARE REQUIRED TO BE GIVEN ON AN IN-PATIENT BASIS BECAUSE OF THE ABOVE NAMED PATIENT'S NEED FOR GROUP HOME CARE ON A CONTINUING BASIS FOR THE CONDITION(S) FOR WHICH HE/SHE WAS RECEIVINGIN-PATIENT HOSPITAL SERVICES PRIOR TO HIS/HER TRANSFER TO THE ON LICENSE OF [facility]. 04/19/231319<Electronically signed by Armand Bob MD> Diet Diet [...] start on Ceftin for possible cellulitis ? 826 5780 remains afebrile 2. Physical deconditioning - Requested for PT OT eval and social media senior associate to assist with discharge planning ? 04/17/2023 awaiting placement in a alf facility ? 04/18/2020 did complain of significant [...] Attending Provider: Armand Bob Primary Care Provider: Tyler Benitez Consulting Providers: Mariusz Waters Discharge Orders/Prescriptions [...] qid X10 days; Referrals / Follow Up: Tyler Benitez MD [Primary Care Provider] - Disposition Disposition (needs filled in before D/C Order can be placed): Half-Way Facility (2) Falls Qualifiers: Encounter type: initial encounter Qualified Code(s): W19.XXXA - Unspecified fall, initial encounter 04/19/23 1320 <Electronically signed by Armand Bob MD> Cosigner Signature (if applicable): CC: Dr. Tyler Benitez MD; Dr. Mariusz Waters MD ~ [facility] Work Phone: 1(130) 476-811908-25-2023 Progress note Author Armand Bob [facility] April 19, 2023 10:57am Note Date/Time April 19, 2023 8: 08am [facility] Medical Records Department [address] [place] [address] Progress Note - Hospitalist 04/19/23 0808 MR#: [id number] Acct: [id number] Name: AMBER KOROMA Rep #:[id number] 2 : 1940 82 From: Armand Bob MD PCP: Dr. Tyler Benitez MD Status:ADM DEQUAN Location: MS3 [id number] Reason for Visit Reason for Visit: Diagnoses Adult failure to thrive (04/15/23) Unspecified fall, initial encounter (04/15/23) Subjective Subjective Patient seen awaiting transfer to alf facility Objective Data Objective Data Vital Signs: [...] displaced pelvic or hip fracture. Electronically Signed: Remymichelle Vannel at 8:08 EDT , Physical Exam Narrative [...] for PT OT eval and social media senior associate to assist with discharge planning ? 04/17/2023 awaiting placement in a alf facility ? 04/18/2020 did complain of significant [...] 35minutes minutes Charges/Coding Visit Charges Inpatient E&M: 87816 Subs Hosp L2 04/19/23 1057 <Electronically signed by Armand Bob MD> Cosigner Signature (if applicable): CC: ~ Signed [facility] Work Phone: 1(607) 870-140508-24-2023 Progress note Author Armand [facility] April 18, 2023 9:18am Note Date/Time April 18, 2023 8: 03am [facility] Medical Records Department [address] [place] [address] Progress Note - Hospitalist 04/18/23 0803 MR#: [id number] Acct: [id number] Name: AMBER KOROMA Rep #:[id number] : 1940 82 From: Armand Bob MD PCP: Dr. Tyler Benitez MD Status:ADM DEQUAN Location: [facility] [place] [place] XU210-5 Reason for Visit Reason for Visit: Diagnoses Adult failure to thrive (04/15/23) Unspecified fall, initial encounter (04/15/23) Subjective Subjective Complain of significant sacral pain. Imaging studies did not show any fracture. Awaiting insurance precertification prior to transfer to alf facility Objective Data Objective Data Vital Signs: [...] for PT OT eval and social media senior associate to assist with discharge planning ? 04/17/2023 awaiting placement in a alf facility ? 04/18/2020 did complain of significant [...] 35minutes minutes Charges/Coding Visit Charges Inpatient E&M: 92243 Subs Hosp L2 04/18/23 0918 <Electronically signed by Armand Bob MD> Cosigner Signature (if applicable): CC: ~ Signed [facility] Work Phone: 1(436) 332-843408-23-2023 Progress note Author Armand Bob [facility] April 17, 2023 9:14am Note Date/Time April 17, 2023 7: 19am [facility] Medical Records Department [address] [place] [address] Progress Note - Hospitalist 04/17/23718 MR#: [id number] Acct: [id number] Name: AMBER KOROMA Rep #:[id number] : 1940 82 From: Armand Bob MD PCP: Dr. Tyler Benitez MD Status:ADM DEQUAN Location: [place] [address] Reason for Visit Reason for Visit: Diagnoses Adult failure to thrive (04/15/23) Unspecified fall, initial encounter (04/15/23) Subjective Subjective Patient seen remains weak. Patient agreeable to being discharged to alf facility Objective Data Objective Data Vital Signs: [...] (Auto) 67.3, Lymph % (Auto) 15.5 L, [place] % (Auto) 13.3 H, Eos % (Auto) [...] for PT OT eval and social media senior associate to assist with discharge planning ? 04/17/2023 awaiting placement in a alf facility 3. Lymphedema involving both lower extremities [...] 35minutes minutes Charges/Coding Visit Charges Inpatient E&M: 39613 Subs Hosp L2 04/17/23 0914 <Electronically signed by Armand Bob MD> Cosigner Signature (if applicable): CC: ~ Signed [facility] Work Phone: 1(364) 396-220608-22-2023 Progress note Author Armand Bob [facility] April 16, 2023 8:47am Note Date/Time April 16, 2023 7: 21am [facility] Medical Records Department [address] [place] [address] Progress Note - Hospitalist 04/16/23718 MR#: [id number] Acct: [id number] Name: AMBER KOROMA Rep #:[id number] : 1940 82 From: Armand Bob MD PCP: Dr. Tyler Benitez MD Status:ADM DEQUAN Location: [facility] [id number] Reason for Visit Reason for Visit: Diagnoses [...] (Auto) 66.9, Lymph % (Auto) 15.7 L, [place] % (Auto) 12.0 H, Eos % (Auto) [...] Sl. Cloudy, Urine pH 7.0, Ur Specific [place] 1.005, Urine Protein Negative, Urine Glucose (UA) [...] for PT OT eval and social media senior associate to assist with discharge planning 3. Lymphedema [...] 35minutes minutes Charges/Coding Visit Charges Inpatient E&M: 15596 Subs Hosp L2 04/16/23 0847 <Electronically signed by Armand Bob MD> Cosigner Signature (if applicable): CC: ~ Signed [facility] Work Phone: 1(734) 665-685208-21-2023 History and physical note Author Mariusz Waters [facility] April 15, 2023 4:00pm Note Date/Time April 15, 2023 3: 14pm [facility] Medical Records Department [address] [place] [address] H&P Exam - Hospitalist 04/15/23 1513 MR#: [id number] Acct: [id number] Name: AMBER KOROMA Rep #:[id number] : 1940 82 From: Mariusz Grayson PCP: Dr. Tyler Benitez MD Status:ADM DEQUAN Location: [place] [address] HPI - General General Date of Admission: 04/15/23 Date of Service: 04/15/23 Chief Complaint: Could not take care of herself. HPI Narrative AMBER KOROMA, is a 82 F was brought [...] in the ED were in normal limit. [facility] Medical History Abdominal pain Abrasion Anemia Atherosclerotic heart disease of morongo coronary artery without angina pectoris Bilateral leg [...] (Auto) 66.9, Lymph % (Auto) 15.7 L, [place] % (Auto) 12.0 H, Eos % (Auto) [...] Sl. Cloudy, Urine pH 7.0, Ur Specific [place] 1.005, Urine Protein Negative, Urine Glucose (UA) [...] extremities lymphedema: [facility] Wound nurse consult. I do not [...] fall, failure to thrive: PT OT and pillowcase cleaner consulted. Patient does not have any caregiver [...] shock if needed Total time spent in [id number] encounter in discussion of advanced directive 17 minutes. Laboratory Results 04/15/23 08:43: WBC 6.1, RBC 3.82 L, Hgb 10.4 L, Hct 35.1 L, MCV 91.9, MCH 27.2,MCHC 29.6 L, RDW Std Deviation 50.0 H, RDW Coeff of [place] 15.0 H, Plt Count 169, MPV 11.1, Immature Gran % (Auto) 1.000 H, Neut % (Auto) 66.9, Lymph % (Auto) 15.7 L, [place] % (Auto) 12.0 H, Eos % (Auto) [...] Sl. Cloudy, Urine pH 7.0, Ur Specific [place] 1.005, Urine Protein Negative, Urine Glucose (UA) 50 H, Urine Ketones Negative, Urine Occult Blood Negative, Urine Nitrite Negative, Urine Bilirubin Negative, Urine Urobilinogen Normal, Ur Leukocyte Esterase 25 H, Urine RBC 0 SEEN, Urine WBC 0 SEEN, Ur Squamous Epith Cells 0-5 SEEN, Urine Bacteria 0SEEN, Urine Mucus 0 SEEN Charges/Coding Visit Charges Inpatient E&M: 23184 Init Hosp L3 Procedures Hospitalists Procedures: 90573 Advncd Care Plan 30 Min 04/15/23 1600 <Electronically signed by Mariusz Waters MD> Cosigner Signature (if applicable): CC: Dr. Tyler Benitez MD; Dr. Mariusz Waters MD~ Signed [facility] Work Phone: 1(906) 752-731408-21-2023 Discharge summary Author Kiko Pittman [facility] April 15, 2023 3:21pm Note Date/Time April 15, 2023 9: 14am [facility] Medical Records Department [address] [place] [address] Emergency Department Summary 04/15/23 MR#: [id number] Acct: [id number] Name: GAAMBER B Rep #:[id number] : 1940 82 From: Kiko Pittman MD PCP: Dr. Tyler Benitez MD Status:REG ER Location: ED HPI [...] Maximum Severity: Unable to quantitate Worsened by: Plastics Process Hand who is an DETECTIVE SUPERVISOR general hunger care for her Relieved by: Nothing Associated Symptoms Associated Symptoms: HPI Narrative Narrative: Patient is a 82-year-old woman who lived independently until recently. She presently lives at a licensed practical nurse's home. Apparently the patient fell. When the x ray equipment tester attempted to get her up from the [...] Prior similar symptoms: No Recent [facility] Medical History Abdominal pain Abrasion Anemia Atherosclerotic heart disease of morongo coronary artery without angina pectoris Bilateral leg [...] in with a person who is a DETECTIVE SUPERVISOR. That DETECTIVE SUPERVISOR called squad today because unable to [...] (Auto) 66.9 Lymph % (Auto) 15.7 L [place] % (Auto) 12.0 H Eos % (Auto) [...] Sl. Cloudy Urine pH 7.0 Ur Specific [place] 1.005 Urine Protein Negative Urine Glucose (UA) 50 H Urine Ketones Negative Urine Occult Blood Negative Urine Nitrite Negative Urine Bilirubin Negative Urine Urobilinogen Normal Ur Leukocyte Esterase 25 H Urine RBC 0 SEEN Urine WBC 0 SEEN Ur Squamous Epith Cells 0-5 SEEN Urine Bacteria 0 SEEN Urine Mucus 0 SEEN Treatment and Re-Evaluation :: T note the hop farm worker for the emergency department informing that patient [...] pulmonary arterial hypertension, Atherosclerotic heart disease of morongo coronary artery without angina pectoris, Inability to [...] DAILY Qty: 30 11RF Primary Care Provider: Tyler Benitez Referrals: Tyler Benitez MD [Primary Care Provider] - Disposition Disposition: Acute Care [facility] Capacity Capacity Assessment Tool Can the patient [...] relative (spouse, child, parent, sibling)?: Yes (However x ray equipment tester ispresently in the department and raises concern regarding family and patient's ability to care for herself.) What to do if you have Problems For any increased pain, shortness of breath, bleeding, nausea or vomiting, chestpain, or any unexpected problems, contact your Primary Care Provider. Call [facility] ([phone]) or report to the closest Emergency Room. Call 911 if necessary. 04/15/23 1521 <Electronically signed by Kiko Pittman MD> Cosigner Signature (if applicable): CC: Dr. Tyler Benitez MD ~ Signed [facility] Work Phone: 1(405) 656-826708-21-2023 Discharge summary Author Kiko Pittman [facility] April 15, 2023 3:21pm Note Date/Time April 15, 2023 9: 14am [facility] Medical Records Department [address] [place] [address] Emergency Department Summary 04/15/23 MR#: [id number] Acct: [id number] Name: AMBER KOROMA Rep #:[id number] : 1940 82 From: Kiko Pittman MD PCP: Dr. Tyler Benitez MD Status:REG ER Location: ED HPI [...] Maximum Severity: Unable to quantitate Worsened by: Plastics Process Hand who is an DETECTIVE SUPERVISOR general hunger care for her Relieved by: Nothing Associated Symptoms Associated Symptoms: HPI Narrative Narrative: Patient is a 82-year-old woman who lived independently until recently. She presently lives at a licensed practical nurse's home. Apparently the patient fell. When the x ray equipment tester attempted to get her up from the [...] Prior similar symptoms: No Recent Illness/Hospitalization: Yes [facility] Medical History Abdominal pain Abrasion Anemia Atherosclerotic heart disease of morongo coronary artery without angina pectoris Bilateral leg [...] in with a person who is a DETECTIVE SUPERVISOR. That DETECTIVE SUPERVISOR called squad today because unable to [...] (Auto) 66.9 Lymph % (Auto) 15.7 L [place] % (Auto) 12.0 H Eos % (Auto) [...] Sl. Cloudy Urine pH 7.0 Ur Specific [place] 1.005 Urine Protein Negative Urine Glucose (UA) 50 H Urine Ketones Negative Urine Occult Blood Negative Urine Nitrite Negative Urine Bilirubin Negative Urine Urobilinogen Normal Ur Leukocyte Esterase 25 H Urine RBC 0 SEEN Urine WBC 0 SEEN Ur Squamous Epith Cells 0-5 SEEN Urine Bacteria 0 SEEN Urine Mucus 0 SEEN Treatment and Re-Evaluation :: T note the hop farm worker for the emergency department informing that patient [...] pulmonary arterial hypertension, Atherosclerotic heart disease of morongo coronary artery without angina pectoris, Inability to [...] DAILY Qty: 30 11RF Primary Care Provider: Tyler Benitez Referrals: Tyler Benitez MD [Primary Care Provider] - Disposition Disposition: [facility] Capacity Capacity Assessment Tool Can the patient [...] relative (spouse, child, parent, sibling)?: Yes (However x ray equipment tester ispresently in the department and raises concern regarding family and patient's ability to care for herself.) What to do if you have Problems For any increased pain, shortness of breath, bleeding, nausea or vomiting, chestpain, or any unexpected problems, contact your Primary Care Provider. Call [facility] ([phone]) or report to the closest Emergency Room. Call 911 if necessary. 04/15/23 1521 <Electronically signed by Kiko Pittman MD> Cosigner Signature (if applicable): CC: Dr. Tyler Benitez MD ~ Signed [facility] Work Phone: 1(394) 648-500808-18-2023 History of Present illness Narrative* Prerna Bonds, PT - 04/12/2023 4:04 PM EDT Episode Visit Count: 76 Therapist That Will Accept/Oversee The Plan Of Care: Prerna Bonds Start of Care Date: 03/13/21 Onset Date: 02/20/21 (past several weeks) Plan of Care Certification Date: 04/12/23 Next Certification Due Date: 06/12/23 Patient Identified by Name and Date of : Yes REHABILITATION AND SPORTS THERAPY PHYSICAL THERAPY PROGRESS REPORT PLAN OF CARE UPDATE: Assessment: Amber Koroma demonstrates difficulty with rising from a [...] due to (Pt has improved prognosis, d/t multimedia technician assistance currently and can now recline with [...] Patient to be seen for Therapeutic exercise (08072), Manual therapy (49339), Self-halfway management (18065), Patient/Family/Caregiver Education PLAN FOR NEXT VISIT: Continue [...] MEASURES WITH LEVEL OF FUNCTION: Lymphedema Comment: Guaze wraps (3"wide) on mid lower legs with elastric wrap [...] in w/c. Pt's aidPatrizia reporting pt requiring 2 people to help [...] L lower leg to knee. (Included 1- 3"x5" absorptive pad over anterolateral lower leg, directly [...] Minutes (timed/untimed): 65 Session Start Time : 1433 Session Stop Time : 1538 Prerna Bonds PT documented in [facility] encounterCorey [facility]08-[facility]23 NoteHNO ID: [id number] Author: Mckenzie Durant RN Service: Care Management Author Type: Registered Nurse Type: Care Mgt Progress Note Filed: 04/01/2023 4:26 PM Note Text: CARE MANAGEMENT DISCHARGE NOTE SERVICE DATE: April 01, 2023 SERVICE TIME: 4:23 PM Admission Date: 03/29/2023 LOS: 3 days Discharge Arrangement Services Arranged Provider Name: NA Phone: NA Caregiver Assessment D/C Home Transportation Arrangements Gregorio Handoff Communication: Tyler Benitez MD Additional Information: Pt. to go to [facility] [place] to cont [facility] Rx and Out Pt. PT. SIGNATURE: Mckenzie Durant RN,BSN, ACM PATIENT NAME: Amber Koroma DATE: April 01, 2023 TIME: 4:23 PM CONTACT #: [phone] [id number] NoteHNO ID: [id number] Author: Mckenzie Durant RN Service: Care Management [...] the same [facility] in [place], [place] Per Pt. she has checked with her [employer] PPO and she cannot get Out Pt Care and Home Health at the same. SIGNATURE: Mckenzie Durant RN,BSN, ACM PATIENT NAME: Amber Koroma DATE: April 01, 2023 TIME: 2:21 PM PAGER/CONTACT #: [phone] [id number] NoteHNO ID: [id number] Author: Taisha Brock MD Service: Hospital Medicine Author Type: Physician Type: Progress Notes Filed: 03/31/2023 5:55 PM Note Text: DEPARTMENT OF HOSPITAL MEDICINE PROGRESS NOTE SERVICE DATE: 03/31/2023 SERVICE TIME: 5:32 PM Hospital Medicine/Primary Attending: Taisha Brock MD NIGHT AND WEEKEND COVERAGE: [place] COVERAGE: Days: [phone], please page attending physician. Nights: [phone], please page [place] Hospitalist Night coverage pager [phone]. Subjective INTERVAL HPI: Patient still having leg [...] (Src) 98.2 (Oral) Resp 18 Ht 5' 0" (1.52m) Wt 193 lb 2 oz (87.6kg) [...] reviewed for today's visit: Recent Labs 03/31/23 0613 03/30/23 0505 03/29/23 1821 WBC 7.27 6.96 9.07 [...] disease consult (more content not included)...[facility] 03-30-2023 NoteHNO ID: [id number] Author: Taisha Brock MD Service: Hospital Medicine Author Type: Physician Type: Plan of Care Filed: 03/30/2023 11:20 PM Note Text: SHORT HOSPITALIST PROGRESS NOTE PATIENT NAME: Amber Koroma SERVICE DATE: 03/30/2023 SERVICE TIME: 5:14 PM Hospital Medicine/Primary Attending: Taisha Brock MD NIGHT COVERAGE BETWEEN 5.30P-7.30A Page [id number] Patient seen and eval. Reviewed orders and HANDP from this AM. Patient still having left sided drainage of from the swelling from the lymphedema. No f/c/n/v. Wants to go home. Follows lymphedema clinic in [place] once a week. Patient states its hard to go twice a week. Patient trying to follow up with Dr. Jesse Law at [facility] to evaluate the lymphedema. DATA: Diagnostic [...] March 30, 2023 TIME: 11:14 PM[facility] [id number] Miscellaneous Notes* Telephone Encounter - Prerna Bonds, PT - 03/29/2023 3:11 PM EDT Received phone call from [place] [employer] at home of the patient stating they were called d/t pt symptoms of increased redness on lymphatic leg and increased temperature (fever) last couple ofdays. Pt did not want to go to ER, but wanted to keep her PT appt scheduled for today here. The captain asked if therapist would consult with pt over the phone. Therapist spoke with Amber over the phone stating that if these [...] at the end of the phone conversation. Prerna Bonds PT, CLT * Telephone Encounter - Cj Anderson - 03/29/2023 2:42 PM EDT Daughter called pt possibly not making it to the appt, going to local hospital. documented in this encounterCorey Hospital07-28-2023 History of Present illness Narrative* Prerna Bonds PT - 03/22/2023 4:04 PM EDT Episode Visit Count: 75 Therapist That Will Accept/Oversee The Plan Of Care: Prerna Bonds Start of Care Date: 03/13/21 Onset Date: 02/20/21 (past several weeks) Plan of Care Certification Date: 03/08/23 Next Certification Due Date: 04/08/23 Patient Identified by Name and Date of : Yes REHABILITATION AND SPORTS THERAPY PHYSICAL THERAPY TREATMENT NOTE ASSESSMENT: Amber Koroma tolerated the session with intermittent pain L [...] Pt is staying with her caregiver, Patrizia, temporarily who is able to provide assistance so [...] anterolateral lower leg. Color Comments:: Redness starting 3" from floor up to 6" below knee with very mild redness remaining [...] w/c. Pt's aid, Patrizia reporting pt requiring 2-3 people to help pt in/out of their vehicle to transport. Pt performed w/c<>plinth transfer with walker and 2 assist to stand, then 1 assist to transfer to plinth. One assistfor sit to supine. Two assist for supine to sit. Transfer plinth to w/c (using walker) after treatment required one assist. Attempted to contact [facility] regarding discharge recommendations and pt follow up. Left two voicemails at the number that was in the phone message to call back. TREATMENT: Manual Therapy: 1: Removed previous elastic bandages and underlying guaze wraps that were placed on at hospital discharge. 2: Applied new stockinette, padding and previously used short-stretch compression wraps to L lower leg to knee. (Included 2- 3"x5" absorptive pads over anterolateral lower leg, directly [...] : 231 Session Stop Time : 346 Prerna Bonds PT documented in this encounterCorey Hospital07-27-2023 Miscellaneous Notes* Telephone Encounter - Keyonna Ledesma - 03/21/2023 2:42 PM EDT [facility] calling to ask physical therapist about some options for care for this pt. Please call when able Disha [phone] documented in this encounterCorey Hospital07-26-2023 Miscellaneous Notes* Telephone Encounter - Judith Au PA-C - 03/20/2023 3:54 PM EDT Called both daughter and patient No answer Lymphedema pool has exhausted all contact options of reaching patient. Patient or daughter to reach out if further assistance is required. Judith Au PA-C March 20, 2023 documented in this encounterCorey Hospital07-14-2023 History of Present illness Narrative* Prerna Bonds, PT - 03/08/2023 2:30 PM EDT Episode Visit Count: 73 Therapist That Will Accept/Oversee The Plan Of Care: Prerna Bonds Start of Care Date: 03/13/21 Onset Date: 02/20/21 (past several weeks) Plan of Care Certification Date: 03/08/23 Next Certification Due Date: 04/08/23 Patient Identified by Name and Date of : Yes REHABILITATION AND SPORTS THERAPY PHYSICAL THERAPY PROGRESS REPORT PLAN OF CARE UPDATE: Assessment: Amber Koroma demonstrates improvements in rising from a [...] Patient to be seen for Therapeutic exercise (29993), Manual therapy (24425), Self-halfway management (31399) PLAN FOR NEXT VISIT: Obtain LE volume [...] seeping today. Dried drainage present on both 3"x5" absorptive pads that were underneath bandages (directly [...] L lower leg to knee. (Included 2- 3"x5" absorptive pads overanterolateral lower leg, directly against [...] 60 Total Treatment Time Minutes (timed/untimed): 60 Prerna Bonds PT documented in this encounterCorey Hospital07-07-2023 History of Present illness Narrative* Prerna Bonds PT - 03/01/2023 3:52 PM EDT Episode Visit Count: 72 Therapist That Will Accept/Oversee The Plan Of Care: Prerna Bonds Start of Care Date: 03/13/21 Onset Date: 02/20/21 (past several weeks) Plan of Care Certification Date: 01/04/23 Next Certification Due Date: 03/06/23 Patient Identified by Name and Date of : Yes REHABILITATION AND SPORTS THERAPY PHYSICAL THERAPY TREATMENT NOTE ASSESSMENT: Amber Koroma tolerated the session with no issues. [...] skin exposed. Dried drainage present on both 3"x5" absorptive pads that were underneath bandages (directly [...] L lower leg to knee. (Included 2- 3"x5" absorptive pads overanterolateral lower leg, directly against skin.) 2: MLD for L LE sequence utilizing anterior interinguinal, R inguino-axillary anastamoses. Gloves were donned during treatment and wrapping over L lower leg. 3: Reapplied short-stretch compression bandage on R lower leg. Reminded pt and caregiver, Patrizia toobtain compression garment to wear on R [...] 60 Total Treatment Time Minutes (timed/untimed): 60 Prerna Bonds PT documented in this encounterCorey Hospital07-05-2023 History of Present illness Narrative* Prerna Bonds PT - 02/27/2023 2:33 PM EDT Episode Visit Count: 71 Therapist That Will Accept/Oversee The Plan Of Care: Prerna Bonds Start of Care Date: 03/13/21 Onset Date: 02/20/21 (past several weeks) Plan of Care Certification Date: 01/04/23 Next Certification Due Date: 03/06/23 Patient Identified by Name and Date of : Yes REHABILITATION AND SPORTS THERAPY PHYSICAL THERAPY TREATMENT NOTE ASSESSMENT: Amber Koroma tolerated the session with no issues. [...] skin exposed. Dried drainage present on both 3"x5" absorptive pads that were underneath bandages (directly next to skin), but no drainage had seeped through to the bandaging layers. 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 TREATMENT: Manual Therapy: 1: Removed bandages of L LE and all were dry without any drainage. Applied new stockinette, paddingand short-stretch compression wraps to L lower leg to knee. (Included 2- 3"x5" absorptive pads overanterolateral lower leg, directly against [...] 57 Total Treatment Time Minutes (timed/untimed): 57 Prerna Bonds PT documented in this encounterCorey Hospital06-30-2023 History of Present illness Narrative* Prerna Bonds PT - 02/22/2023 4:05 PM EDT Episode Visit Count: 70 Therapist That Will Accept/Oversee The Plan Of Care: Prerna Bonds Start of Care Date: 03/13/21 Onset Date: 02/20/21 (past several weeks) Plan of Care Certification Date: 01/04/23 Next Certification Due Date: 03/06/23 Patient Identified by Name and Date of : Yes REHABILITATION AND SPORTS THERAPY PHYSICAL THERAPY TREATMENT NOTE ASSESSMENT: Amber Koroma tolerated the session with no issues. [...] L lower leg to knee. 2: Pt's [facility] home health, Patrizia washed and patted dry her leg [...] 62 Total Treatment Time Minutes (timed/untimed): 62 Prerna Bonds PT documented in this encounterCorey Hospital06-28-2023 History of Present illness Narrative* Prerna Bonds PT - 02/20/2023 3:24 PM EDT Episode Visit Count: 69 Therapist That Will Accept/Oversee The Plan Of Care: Prerna Bonds Start of Care Date: 03/13/21 Onset Date: 02/20/21 (past several weeks) Plan of Care Certification Date: 01/04/23 Next Certification Due Date: 03/06/23 Patient Identified by Name and Date of : Yes REHABILITATION AND SPORTS THERAPY PHYSICAL THERAPY TREATMENT NOTE ASSESSMENT: Amber Koroma tolerated the session with no issues. [...] L lower leg to knee. 2: Pt's [facility] home health, Patrizia washed and patted dry her leg [...] 43 Total Treatment Time Minutes (timed/untimed): 43 Prerna Bonds PT documented in this encounterCorey Hospital06-16-2023 History of Present illness Narrative* Prerna Bonds PT - 02/08/2023 1:50 PM EDT Episode Visit Count: 68 Therapist That Will Accept/Oversee The Plan Of Care: Prerna Bonds Start of Care Date: 03/13/21 Onset Date: 02/20/21 (past several weeks) Plan of Care Certification Date: 01/04/23 Next Certification Due Date: 03/06/23 Patient Identified by Name and Date of : Yes REHABILITATION AND SPORTS THERAPY PHYSICAL THERAPY PROGRESS REPORT PLAN OF CARE UPDATE: Assessment: Amber Koroma demonstrates difficulty with sit to supine [...] Patient to be seen for Therapeutic exercise (86521), Manual therapy (84247), Self-halfway management (33107) PLAN FOR NEXT VISIT: Continue with MLD, short stretch wrapping and facilitating appropriate compression garments. SUBJECTIVE: Patient Reason for Visit: Pt reports she has had the [employer] working nearby her home and today does [...] Extremity Volume: 7462 L Lower Extremity Volume: 81257 Difference in Volume: 3209 Difference in % [...] 57 Total Treatment Time Minutes (timed/untimed): 57 Prerna Bonds PT documented [facility]Core[facility] History of Present illness Narrative* Prerna Bonds PT - 01/25/2023 2:29 PM EDT Episode Visit Count: 66 Therapist That Will Accept/Oversee The Plan Of Care: Prerna Bonds Start of Care Date: 03/13/21 Onset Date: 02/20/21 (past several weeks) Plan of Care Certification Date: 01/04/23 Next Certification Due Date: 03/06/23 Patient Identified by Name and Date of : Yes REHABILITATION AND SPORTS THERAPY PHYSICAL THERAPY TREATMENT NOTE ASSESSMENT: Amber Koroma tolerated the session with no issues. [...] lymphatic dynamics and improve condition of tissue. Self-Halfway Management: 1: Pt is using her quad cane to ambulate and has her [facility] home health, Patrizia to assist her when going out [...] 3 Total Treatment Time Minutes (timed/untimed): 65 Prerna Bonds PT documented in this encounterCorey [facility]05-12-[facility] History of Present illness Narrative* Prerna Bonds, PT - 01/04/2023 3:02 PM EDT Episode Visit Count: 64 Therapist That Will Accept/Oversee The Plan Of Care: Prerna Bonds Start of Care Date: 03/13/21 Onset Date: 02/20/21 (past several weeks) Plan of Care Certification Date: 01/04/23 Next Certification Due Date: 03/06/23 Patient Identified by Name and Date of : Yes REHABILITATION AND SPORTS THERAPY PHYSICAL THERAPY PROGRESS REPORT PLAN OF CARE UPDATE: Assessment: Amber Koroma demonstrates difficulty with L LE infection [...] Patient to be seen for Therapeutic exercise (94610), Manual therapy (77316), Self-halfway management (45338) PLAN FOR NEXT VISIT: Pt to schedule [...] R LE through a local vendor in [facility]. Pain: Pain Pain Level: 0 Post [...] 45 Total Treatment Time Minutes (timed/untimed): 45 Prerna Bonds PT documented in this encounterCorey [facility]05-11-2023 Miscellaneous Notes* Telephone Encounter - Judith Au PA-C - 01/03/2023 10:37 AM EDT Ho bear No answer Left VM All attempts to reach the patient have been attempted. If patient would like to move forward with possible next steps then she may contact our department for triage questions and next steps. Judith Au PA-C. January 03, 2023 documented in this encounterCorey [facility]05-10-2023 Miscellaneous Notes* Telephone Encounter - Judith Au PA-C - 01/02/2023 1:05 PM EDT Called ambre No answer Left VM Lymphedema pool to continue to monitor. Judith Au PA-C. January 02, 2023 documented in this encounterCorey [facility]05-08-2023 Miscellaneous Notes* Telephone Encounter - Judith Au PA-C - 12/31/2022 3:51 PM EDT Called patient back No answer Lymphedema pool to continue to monitor. Judith Au PA-C December 31, 2022 documented in this encounterCorey Hospital05-08-2023 Miscellaneous Notes* Telephone Encounter - RUBA Novak - 12/31/2022 3:29 PM EDT Patient calling back Judith documented in this encounterCorey Hospital04-28-2023 History of Present illness Narrative* Prerna Bonds, PT - 12/21/2022 2:35 PM EDT Episode Visit Count: 63 Therapist That Will Accept/Oversee The Plan Of Care: Prerna Bonds Start of Care Date: 03/13/21 Onset Date: 02/20/21 (past several weeks) Plan of Care Certification Date: 12/07/22 Next Certification Due Date: 01/06/23 Patient Identified by Name and Date of : Yes REHABILITATION AND SPORTS THERAPY PHYSICAL THERAPY TREATMENT NOTE ASSESSMENT: Amber Aurbey Koroma tolerated the session with no issues. [...] Patriz[facility] Pain: Pain Pain Level: 0 Post Treatment [...] 60 Total Treatment Time Minutes (timed/untimed): 60 Prerna Bonds PT documented in this encounterCorey Hospital04-21-2023 History of Present illness Narrative* Prerna Bonds PT - 12/14/2022 3:45 PM EDT Episode Visit Count: 62 Therapist That Will Accept/Oversee The Plan Of Care: Prerna Bonds Start of Care Date: 03/13/21 Onset Date: 02/20/21 (past several weeks) Plan of Care Certification Date: 12/07/22 Next Certification Due Date: 01/06/23 Patient Identified by Name and Date of : Yes REHABILITATION AND SPORTS THERAPY PHYSICAL THERAPY TREATMENT NOTE ASSESSMENT: Amber Koroma tolerated the session with no issues. [...] but did not wear them because she "didn't like them". She states she doesn't think she'll be [...] 65 Total Treatment Time Minutes (timed/untimed): 65 Prerna Bonds PT documented in this encounterCorey Hospital04-14-2023 History of Present illness Narrative* Prerna Bonds PT - 12/07/2022 2:32 PM EDT Episode Visit Count: 61 Therapist That Will Accept/Oversee The Plan Of Care: Prerna Bonds Start of Care Date: 03/13/21 Onset Date: 02/20/21 (past several weeks) Plan of Care Certification Date: 12/07/22 Next Certification Due Date: 01/06/23 Patient Identified by Name and Date of : Yes REHABILITATION AND SPORTS THERAPY PHYSICAL THERAPY PROGRESS REPORT PLAN OF CARE UPDATE: Assessment: Amber Koroma demonstrates difficulty with L LE volume [...] measurements today. Pt limited in transportation to [facility]. Gave pt a list of phone numbers [...] Patient to be seen for Therapeutic exercise (96596), Manual therapy (72989), Self-halfway management (08465) PLAN FOR NEXT VISIT: Continue with MLD [...] 60 Total Treatment Time Minutes (timed/untimed): 60 Prerna Bonds PT documented in this encounterCorey Hospital04-13-2023 Miscellaneous Notes* Telephone Encounter - Mohini Davila LPN - 12/06/2022 3:13 PM EDT Patient calling regarding lymphedema. Conferenced pt with main campus asphalt machine operator Nata to assist with finding a dept/physician's office to discuss her needs. Mohini Davila LPN documented in this encounterCorey Hospital03-31-2023 History of Present illness Narrative* Prerna Bonds PT - 11/23/2022 2:30 PM EDT Episode Visit Count: 60 Therapist That Will Accept/Oversee The Plan Of Care: Prerna Bonds Start of Care Date: 03/13/21 Onset Date: 02/20/21 (past several weeks) Plan of Care Certification Date: 11/02/22 Next Certification Due Date: 12/03/22 Patient Identified by Name and Date of : Yes REHABILITATION AND SPORTS THERAPY PHYSICAL THERAPY TREATMENT NOTE ASSESSMENT: Amber Koroma tolerated the session with no issues. [...] 60 Total Treatment Time Minutes (timed/untimed): 60 Prerna Bonds PT documented in this encounterCorey Hospital03-17-2023 History of Present illness Narrative* Prerna Bonds PT - 11/09/2022 2:39 PM EDT Episode Visit Count: 59 Therapist That Will Accept/Oversee The Plan Of Care: Prerna Bonds Start of Care Date: 03/13/21 Onset Date: 02/20/21 (past several weeks) Plan of Care Certification Date: 11/02/22 Next Certification Due Date: 12/03/22 Patient Identified by Name and Date of : Yes REHABILITATION AND SPORTS THERAPY PHYSICAL THERAPY TREATMENT NOTE ASSESSMENT: Amber Koroma tolerated the session with no issues. [...] 55 Total Treatment Time Minutes (timed/untimed): 55 Prerna Bonds PT documented in this encounterCorey Hospital03-10-2023 History of Present illness Narrative* Prerna Bonds PT - 11/02/2022 2:50 PM EST Episode Visit Count: 58 Therapist That Will Accept/Oversee The Plan Of Care: Prerna Bonds Start of Care Date: 03/13/21 Onset Date: 02/20/21 (past several weeks) Plan of Care Certification Date: 11/02/22 Next Certification Due Date: 12/03/22 Patient Identified by Name and Date of : Yes REHABILITATION AND SPORTS THERAPY PHYSICAL THERAPY PROGRESS REPORT PLAN OF CARE UPDATE: Assessment: Amber Koroma demonstrates difficulty with edema management and [...] Patient to be seen for Therapeutic exercise (47552), Manual therapy (42988), Self-halfway management (75095) PLAN FOR NEXT VISIT: MLD B LE [...] Extremity Volume: 6757 L Lower Extremity Volume: 48633 Difference in Volume: 3363 Difference in % [...] 60 Total Treatment Time Minutes (timed/untimed): 60 Prerna Bonds PT documented in this encounterCorey Hospital02-27-2023 History of Present illness Narrative* Prerna Bonds PT - 10/22/2022 4:26 PM EST Episode Visit Count: 57 Therapist That Will Accept/Oversee The Plan Of Care: Prerna Bonds Start of Care Date: 03/13/21 Onset Date: 02/20/21 (past several weeks) Plan of Care Certification Date: 10/05/22 Next Certification Due Date: 11/02/22 Patient Identified by Name and Date of : Yes REHABILITATION AND SPORTS THERAPY PHYSICAL THERAPY TREATMENT NOTE ASSESSMENT: Amber oKroma tolerated the session with no issues. She [...] 62 Total Treatment Time Minutes (timed/untimed): 62 Prerna Bonds PT documented in this encounterCorey Hospital02-17-2023 Miscellaneous Notes* Telephone Encounter - Tammy Adam [...] are the same, when dialed it states "The number has calling restrictions that have prevented the completion of the call." When I attempted to call Patrizia, her alternate contact worker lithography, [facility] * Telephone Encounter - Radha Wood - 09/12/2022 4:37 PM EST Please call patient to inform her that her xrays are unremarkable. No fracture noted. Continue withstretching as we discussed Radha KING Wood documented in this encounterCorey Hospital02-17-2023 History of Present illness Narrative* Prerna Bonds, PT - 10/12/2022 2:33 PM EST Episode Visit Count: 56 Therapist That Will Accept/Oversee The Plan Of Care: Prerna Bonds Start of Care Date: 03/13/21 Onset Date: 02/20/21 (past several weeks) Plan of Care Certification Date: 10/05/22 Next Certification Due Date: 11/02/22 Patient Identified by Name and Date of : Yes REHABILITATION AND SPORTS THERAPY PHYSICAL THERAPY TREATMENT NOTE ASSESSMENT: Amberaunpama Koroma tolerated the session with no issues. [...] 60 Total Treatment Time Minutes (timed/untimed): 60 Prerna Bonds PT documented in this encounterCorey Hospital02-10-2023 History of Present illness Narrative* Prerna Bonds PT - 10/05/2022 4:08 PM EST Episode Visit Count: 55 Therapist That Will Accept/Oversee The Plan Of Care: Prerna Bonds Start of Care Date: 03/13/21 Onset Date: 02/20/21 (past several weeks) Plan of Care Certification Date: 10/05/22 Next Certification Due Date: 11/02/22 Patient Identified by Name and Date of : Yes REHABILITATION AND SPORTS THERAPY PHYSICAL THERAPY PROGRESS REPORT PLAN OF CARE UPDATE: Assessment: Amber Koroma demonstrates difficulty with transfers and walking [...] Patient to be seen for Therapeutic exercise (40264), Manual therapy (07067), Self-halfway management (23741) PLAN FOR NEXT VISIT: Continue MLD and [...] Extremity Volume: 7878 L Lower Extremity Volume: 95490 Difference in Volume: 2514 Difference in % [...] 60 Total Treatment Time Minutes (timed/untimed): 60 Prerna Bonds PT documented in this encounterCorey Hospital01-17-2023 History of Present illness Narrative* Jocy Ernandez RT(R) - 09/11/2022 3:30 PM EST Radiology Service Progress Note PATIENT NAME: Amber Koroma DATE OF SERVICE: September 11, 2022 [...] 11, 2022 3:35 PM documented in this encounterCorey Hospital01-17-2023 Miscellaneous Notes* Addendum Note - Radha Wood - 09/11/2022 3:18 PM ESTAddended by: RADHA WOOD DPM on: 09/11/2022 03:18 PM Modules accepted: Orders documented in this encounterCorey Hospital01-17-2023 History of Present illness Narrative* Radha [...] 12/06/2021 Charla Benitez LPN documented in this encounterCorey Hospital01-16-2023 History of Present illness Narrative* Prerna Bonds, PT - 09/10/2022 4:29 PM EST Episode Visit Count: 54 Therapist That Will Accept/Oversee The Plan Of Care: Prerna Bonds Start of Care Date: 03/13/21 Onset Date: 02/20/21 (past several weeks) Plan of Care Certification Date: 05/25/22 Next Certification Due Date: 09/22/22 Patient Identified by Name and Date of : Yes REHABILITATION AND SPORTS THERAPY PHYSICAL THERAPY PROGRESS REPORT PLAN OF CARE UPDATE: Assessment: Amber Koroma demonstrates difficulty with edema management, walking, [...] Patient to be seen for Therapeutic exercise (40531);Manual therapy (84689);Self- halfway management (01277) PLAN FOR NEXT VISIT: Continue with MLD [...] weather and icy porch/sidewalk. She states she tries,"to do as much of the exercises as (I) can". Pain: Pain Pain Level: 0 Post Treatment [...] lymphatic dynamics and improve condition of tissue. Self-Halfway Management: 1: Again, reviewed options of compression [...] 10 Total Treatment Time Minutes (timed/untimed): 60 Prerna Bonds PT documented in this encounterCorey Hospital12-16-2022 History of Present illness Narrative* Prerna Bonds PT - 08/10/2022 2:49 PM EST Episode Visit Count: 53 Therapist That Will Accept/Oversee The Plan Of Care: Prerna Bonds Start of Care Date: 03/13/21 Onset Date: 02/20/21 (past several weeks) Plan of Care Certification Date: 05/25/22 Next Certification Due Date: 06/24/22 Patient Identified by Name and Date of : Yes REHABILITATION AND SPORTS THERAPY PHYSICAL THERAPY TREATMENT NOTE ASSESSMENT: Amber Koroma tolerated the session with no issues. [...] and redness locally. Pt has appt with plate straightener next week. Pain: Pain Pain Level: 0 [...] 60 Total Treatment Time Minutes (timed/untimed): 60 Prerna Bonds PT documented in this encounterCorey Hospital12-09-2022 History of Present illness Narrative* Prerna Bonds PT - 08/03/2022 4:02 PM EST Episode Visit Count: 52 Therapist That Will Accept/Oversee The Plan Of Care: Prerna Bonds Start of Care Date: 03/13/21 Onset Date: 02/20/21 (past several weeks) Plan of Care Certification Date: 05/25/22 Next Certification Due Date: 06/24/22 Patient Identified by Name and Date of : Yes REHABILITATION AND SPORTS THERAPY PHYSICAL THERAPY TREATMENT NOTE ASSESSMENT: Amber Koroma tolerated the session with no issues. [...] Extremity Volume: 6763 L Lower Extremity Volume: 87172 Difference in Volume: 3240 Difference in % [...] 63 Total Treatment Time Minutes (timed/untimed): 63 Prerna Bonds PT documented in this encounterCorey Hospital12-02-2022 History of Present illness Narrative* Prerna Bodns PT - 07/27/2022 2:41 PM EST Episode Visit Count: 51 Therapist That Will Accept/Oversee The Plan Of Care: Prerna Bonds Start of Care Date: 03/13/21 Onset Date: 02/20/21 (past several weeks) Plan of Care Certification Date: 05/25/22 Next Certification Due Date: 06/24/22 Patient Identified by Name and Date of : Yes REHABILITATION AND SPORTS THERAPY PHYSICAL THERAPY PROGRESS REPORT PLAN OF CARE UPDATE: Assessment: Amber Koroma demonstrates difficulty with L LE lymphorrhea [...] Patient to be seen for Therapeutic exercise (37646);Manual therapy (08458);Self- halfway management (02006) PLAN FOR NEXT VISIT: Obtain volume measurements. [...] lymphatic dynamics and improve condition of tissue. Self-Halfway Management: 1: Strongly encouraged pt to obtain [...] 15 Total Treatment Time Minutes (timed/untimed): 60 Prerna Bonds PT documented in this encounterCorey Hospital11-18-2022 History of Present illness Narrative* Prerna Bonds PT - 07/13/2022 3:48 PM EST Episode Visit Count: 50 Therapist That Will Accept/Oversee The Plan Of Care: Prerna Bonds Start of Care Date: 03/13/21 Onset Date: 02/20/21 (past several weeks) Plan of Care Certification Date: 05/25/22 Next Certification Due Date: 06/24/22 Patient Identified by Name and Date of : Yes REHABILITATION AND SPORTS THERAPY PHYSICAL THERAPY TREATMENT NOTE ASSESSMENT: Amber Koroma tolerated the session with no issues. [...] 60 Total Treatment Time Minutes (timed/untimed): 60 Prerna Bonds PT documented in this encounterCorey Hospital11-11-2022 History of Present illness Narrative* Prerna Bonds PT - 07/06/2022 2:42 PM EST Episode Visit Count: 49 Therapist That Will Accept/Oversee The Plan Of Care: Prerna Bonds Start of Care Date: 03/13/21 Onset Date: 02/20/21 (past several weeks) Plan of Care Certification Date: 05/25/22 Next Certification Due Date: 06/24/22 Patient Identified by Name and Date of : Yes REHABILITATION AND SPORTS THERAPY PHYSICAL THERAPY TREATMENT NOTE ASSESSMENT: Amber Koroma tolerated the session with no issues. [...] had to cancel last week because her locomotive driver wassick and no one else could [...] 60 Total Treatment Time Minutes (timed/untimed): 60 Prerna Bonds PT documented in this encounterCorey Hospital10-21-2022 History of Present illness Narrative* Prerna Bonds PT - 06/15/2022 2:22 PM EDT Episode Visit Count: 47 Therapist That Will Accept/Oversee The Plan Of Care: Prerna Bonds Start of Care Date: 03/13/21 Onset Date: 02/20/21 (past several weeks) Plan of Care Certification Date: 05/25/22 Next Certification Due Date: 06/24/22 Patient Identified by Name and Date of : Yes REHABILITATION AND SPORTS THERAPY PHYSICAL THERAPY TREATMENT NOTE ASSESSMENT: Amber Koroma tolerated the session with no issues. [...] 50 Total Treatment Time Minutes (timed/untimed): 60 Prerna Bonds PT documented in this encounterCorey Hospital10-14-2022 History of Present illness Narrative* Prerna Bonds PT - 06/08/2022 2:36 PM EDT Episode Visit Count: 46 Therapist That Will Accept/Oversee The Plan Of Care: Prerna Bonds Start of Care Date: 03/13/21 Onset Date: 02/20/21 (past several weeks) Plan of Care Certification Date: 05/25/22 Next Certification Due Date: 06/24/22 Patient Identified by Name and Date of : Yes REHABILITATION AND SPORTS THERAPY PHYSICAL THERAPY TREATMENT NOTE ASSESSMENT: Amber Koroma tolerated the session with no issues. [...] going to stop at a local [facility] [place] to see what they have there. Pain: [...] 55 Total Treatment Time Minutes (timed/untimed): 55 Prerna Bonds PT documented in this encounterCorey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 1:53pm Living Will No November 10, 2024 2:43pm Power of Corporate Meeting Planner No November 10 2:43pm Advance Directive Response Recorded Date/ Time Living Will No November 10, 2024 2:43pm Do you have a Healthcare Power of Corporate Meeting Planner? No November 10, 2024 2:43pm Advance Directive Response Recorded Date/ Time Living Will No November 10, 2024 2:43pm Do you have a Healthcare Power of Corporate Meeting Planner? No November 10, 2024 2:43pm Do you have a Healthcare Power of Corporate Meeting Planner? No March 02, 2025 11:23am Advance Directive Response Recorded Date/ Time Do you have a Healthcare Power of Corporate Meeting Planner? No March 02, 2025 11:23am Chief Complaint [...] arterial hypertension Hypoxia Atherosclerotic heart disease of [place] coronary artery without angina pectoris CHF (congestive [...] arterial hypertension Hypoxia Atherosclerotic heart disease of [place] coronary artery without angina pectoris CHF (congestive [...] arterial hypertension Hypoxia Atherosclerotic heart disease of [place] coronary artery without angina pectoris CHF (congestive heart failure) Chronic combined systolic and diastolic CHF (congestive heart failure) Essential hypertension Hyperlipemia, mixed Lymphedema Nonrheumatic mitral valve insufficiency Chief Complaint SOB EDEMA 3 M FU EORDER FOR LABS RIGHT KNEE xray RIGHT KNEE SOB Reason for Visit Atherosclerotic hear t disease of [place] coronary artery without angina pectoris CHF (congestive heart failure) GERD (gastroesophageal reflux disease) Chronic combined systolic and diastolic CHF (congestive heart failure) Essential hypertension Hyperlipemia, mixed Lymphedema Nonrheumatic mitral valve insufficiency Osteoarthritis of right knee Osteoarthritis of right knee Chief Complaint 3 M FU EORDER FOR LABS RIGHT KNEE xray RIGHT KNEE SOB RIGHT KNEE ER visit 05/08/22, PFM pt. L.Petar RIGHT KNEE EDEMA VICTORINO AND BACK PAIN Reason for Visit Atherosclerotic hear t disease of [place] coronary artery without angina pectoris CHF (congestive heart failure) GERD (gastroesophageal reflux disease) Chronic combined systolic and diastolic CHF (congestive heart failure) Essential hypertension Hyperlipemia, mixed Lymphedema Nonrheumatic mitral valve insufficiency Osteoarthritis of right knee Osteoarthritis of right knee Osteoarthritis of right knee Atherosclerotic heart disease of [place] coronary artery without angina pectoris CHF (congestive heart failure) Chronic combined systolic and diastolic CHF (congestive heart failure) Essential hypertension Hyperlipemia, mixed Lymphedema Nonrheumatic mitral valve insufficiency Osteoarthritis of right knee Chief Complaint EORDER FOR LABS RIGHT KNEE xray RIGHT KNEE SOB RIGHT KNEE ER visit 05/08/22, PFM pt. L.Petar RIGHT KNEE EDEMA VICTORINO AND BACK PAIN RT KNEE/RX HERE Reason for Visit Osteoarthritis of ri ght knee Osteoarthritis of right knee Osteoarthritis of right knee Atherosclerotic heart disease of [place] coronary artery without angina pectoris CHF (congestive heart failure) Chronic combined systolic and diastolic CHF (congestive heart failure) Essential hypertension Hyperlipemia, mixed Lymphedema Nonrheumatic mitral valve insufficiency Osteoarthritis of right knee Chief Complaint 6 M FU Diarrhea Reason for Visit Atherosclerotic hear t disease of [place] coronary artery without angina pectoris Chronic combined systolic and diastolic CHF (congestive heart failure) Essential hypertension Hyperlipemia, mixed Lymphedema Nonrheumatic mitral valve insufficiency Chief Complaint Diarrhea SOB WEAKNESS 3 M FU CELLULITIS Cellulitis Cellulitis Cellulitis Lower Extremity LEFT FOOT PAIN FAILURE TO THRIVE Reason for Visit Atherosclerotic hear t disease of [place] coronary artery without angina pectoris Chronic combined systolic and diastolic CHF (congestive heart failure) Essential hypertension Hyperlipemia, mixed Lymphedema Nonrheumatic mitral valve insufficiency History of heart disease History of ITP Chronic renal insufficiency Cellulitis of left leg Leukocytosis Adult failure to thrive At high risk for falls Atherosclerotic heart disease of [place] coronary artery without angina pectoris Falls Inability to walk Essential hypertension Secondary pulmonary arterial hypertension Chief Complaint Diarrhea SOB WEAKNESS 3 M FU CELLULITIS Cellulitis Cellulitis Cellulitis Lower Extremity LEFT FOOT PAIN FAILURE TO THRIVE FAILURE TO THRIVE FAILURE TO THRIVE FAILURE TO THRIVE FAILURE TO THRIVE Reason for Visit Atherosclerotic hear t disease of [place] coronary artery without angina pectoris Chronic combined systolic and diastolic CHF (congestive heart failure) Essential hypertension Hyperlipemia, mixed Lymphedema Nonrheumatic mitral valve insufficiency History of heart disease History of ITP Chronic renal insufficiency Cellulitis of left leg Leukocytosis Adult failure to thrive At high risk for falls Atherosclerotic heart disease of [place] coronary artery without angina pectoris Falls Inability to walk Essential hypertension Secondary pulmonary arterial hypertension Chief Complaint WEAKNESS 3 M FU CELLULITIS Cellulitis Cellulitis Cellulitis Lower Extremity LEFT FOOT PAIN FAILURE TO THRIVE FAILURE TO THRIVE FAILURE TO THRIVE FAILURE TO THRIVE FAILURE TO THRIVE EDEMA Reason for Visit Atherosclerotic hear t disease of [place] coronary artery without angina pectoris Chronic combined systolic and diastolic CHF (congestive heart failure) Essential hypertension Hyperlipemia, mixed Lymphedema Nonrheumatic mitral valve insufficiency History of heart disease History of ITP Chronic renal insufficiency Cellulitis of left leg Leukocytosis Adult failure to thrive At high risk for falls Atherosclerotic heart disease of [place] coronary artery without angina pectoris Essential hypertension Secondary pulmonary arterial hypertension Falls Inability to walk Chief Complaint WEAKNESS 3 M FU CELLULITIS Cellulitis Cellulitis Cellulitis Lower Extremity LEFT FOOT PAIN FAILURE TO THRIVE FAILURE TO THRIVE FAILURE TO THRIVE FAILURE TO THRIVE FAILURE TO THRIVE EDEMA EORDER Reason for Visit Atherosclerotic hear t disease of [place] coronary artery without angina pectoris Chronic combined systolic and diastolic CHF (congestive heart failure) Essential hypertension Hyperlipemia, mixed Lymphedema Nonrheumatic mitral valve insufficiency History of heart disease History of ITP Chronic renal insufficiency Cellulitis of left leg Leukocytosis Adult failure to thrive At high risk for falls Atherosclerotic heart disease of [place] coronary artery without angina pectoris Essential hypertension Secondary pulmonary arterial hypertension Falls Inability to walk Chief Complaint 3 M FU CELLULITIS Cellulitis Cellulitis Cellulitis Lower Extremity LEFT FOOT PAIN FAILURE TO THRIVE FAILURE TO THRIVE FAILURE TO THRIVE FAILURE TO THRIVE FAILURE TO THRIVE EDEMA EORDER Reason for Visit Atherosclerotic hear t disease of [place] coronary artery without angina pectoris Chronic combined systolic and diastolic CHF (congestive heart failure) Essential hypertension Hyperlipemia, mixed Lymphedema Nonrheumatic mitral valve insufficiency History of heart disease History of ITP Chronic renal insufficiency Cellulitis of left leg Leukocytosis Adult failure to thrive At high risk for falls Atherosclerotic heart disease of [place] coronary artery without angina pectoris Essential hypertension [...] SOB, EDEMA March 02, 2025 10:12 am Chief Complaint Admit Date INT LAB ORDERS February 19, 2025 2:26 pm SOB, EDEMA March 02, 2025 10:12 am CAD/ASHD March 12, 2025 12:3 7pm Chief Complaint Admit Date INT LAB ORDERS February 19, 2025 2:26 pm SOB, EDEMA March 02, 2025 10:12 am CAD/ASHD March 12, 2025 12:3 7pm 6 M FU/EDEMA May 03, 2025 1:30pm Reason for Referral Specialty Diagnoses / Procedures Referred By Celestino t Referred To Contact [facility] Diagnoses Lymphedema of both lower extremities Procedures PT REHAB FOLLOW UP ORDER THERAPEUTIC EXERCISES RE, EA 15 MIN. Prerna Bonds, [facility] [address] [place] [address] Referral ID Status Reason Start Date Expiration Date Visits Requested Visits Authorized [id number] Pending Review PCP Requested Referral Auto-Generate d Referral 03/21/2022 06/19/2022 1 1 Referral ID Status Reason Start Date Expiration Date Visits Requested Visits Authorized [id number] Pending Review PCP Requested Referral Auto-Generate d Referral 11/23/2022 02/21/2023 1 1 Referral ID Status Reason Start Date Expiration Date Visits Requested Visits Authorized [id number] Pending Review PCP Requested Referral Auto-Generate d Referral 04/12/2023 07/11/2023 1 1 Referral ID Status Reason Start Date Expiration Date Visits Requested Visits Authorized [id number] Pending Review PCP Requested Referral Auto-Generate d Referral 01/17/2024 04/16/2024 1 1 Referral ID Status Reason Start Date Expiration Date Visits Requested Visits Authorized [id number] New Request PCP Requested Referral Auto-Generate d Referral 09/25/2024 12/24/2024 1 1 Additional Source Comments INFORMATION SOURCE (unrecogn ized section and content) DATE CREATED AUTHOR 02/18/2018 [facility] DATE CREATED AUTHOR AUTHOR'S ORGANIZ ATION 08/03/2018 [facility] DATE CREATED AUTHOR AUTHOR'S ORGANIZ ATION 01/04/2023 [facility] DATE CREATED AUTHOR AUTHOR'S ORGANIZ ATION 04/14/2023 [facility] DATE CREATED AUTHOR AUTHOR'S ORGANIZ ATION 03/19/2025 [facility] DATE CREATED AUTHOR AUTHOR'S ORGANIZ ATION 04/10/2025 [facility] DATE CREATED AUTHOR AUTHOR'S ORGANIZ ATION 06/16/2025 [facility] Source Comments (unrecognize d section and content) In the event this informatio n is protected by the Federal Confidentiality of Alcohol and Drug Abuse Patient Records regulations: The Federal rules restrict any use of the information to criminally investigate or prosecute any alcohol or drug abuse patient.[facility] HospitalIn the event this information is protected by the Federal Confidentiality of Alcohol and Drug Abuse Patient Records regulations: The Federal rules restrict any use of the information to criminally investigate or prosecute any alcohol or drug abuse patient.[facility] HospitalIn the event this information is protected by the Federal Confidentiality of Alcohol and Drug Abuse Patient Records regulations: The Federal rules restrict any use of the information to criminally investigate or prosecute any alcohol or drug abuse patient.[facility] HospitalIn the event this information is protected by the Federal Confidentiality of Alcohol and Drug Abuse Patient Records regulations: The Federal rules restrict any use of the information to criminally investigate or prosecute any alcohol or drug abuse patient.[facility] HospitalIn the event this information is protected by the Federal Confidentiality of Alcohol and Drug Abuse Patient Records regulations: The Federal rules restrict any use of the information to criminally investigate or prosecute any alcohol or drug abuse patient.[facility] HospitalIn the event this information is protected by the Federal Confidentiality of Alcohol and Drug Abuse Patient Records regulations: The Federal rules restrict any use of the information to criminally investigate or prosecute any alcohol or drug abuse patient.[facility] HospitalIn the event this information is protected by the Federal Confidentiality of Alcohol and Drug Abuse Patient Records regulations: The Federal rules restrict any use of the information to criminally investigate or prosecute any alcohol or drug abuse patient.[facility] HospitalIn the event this information is protected by the Federal Confidentiality of Alcohol and Drug Abuse Patient Records regulations: The Federal rules restrict any use of the information to criminally investigate or prosecute any alcohol or drug abuse patient.[facility] HospitalIn the event this information is protected by the Federal Confidentiality of Alcohol and Drug Abuse Patient Records regulations: The Federal rules restrict any use of the information to criminally investigate or prosecute any alcohol or drug abuse patient.[facility] HospitalIn the event this information is protected by the Federal Confidentiality of Alcohol and Drug Abuse Patient Records regulations: The Federal rules restrict any use of the information to criminally investigate or prosecute any alcohol or drug abuse patient.[facility] HospitalIn the event this information is protected by the Federal Confidentiality of Alcohol and Drug Abuse Patient Records regulations: The Federal rules restrict any use of the information to criminally investigate or prosecute any alcohol or drug abuse patient.[facility] HospitalIn the event this information is protected by the Federal Confidentiality of Alcohol and Drug Abuse Patient Records regulations: The Federal rules restrict any use of the information to criminally investigate or prosecute any alcohol or drug abuse patient.[facility] HospitalIn the event this information is protected by the Federal Confidentiality of Alcohol and Drug Abuse Patient Records regulations: The Federal rules restrict any use of the information to criminally investigate or prosecute any alcohol or drug abuse patient.[facility] HospitalIn the event this information is protected by the Federal Confidentiality of Alcohol and Drug Abuse Patient Records regulations: The Federal rules restrict any use of the information to criminally investigate or prosecute any alcohol or drug abuse patient.[facility] HospitalIn the event this information is protected by the Federal Confidentiality of Alcohol and Drug Abuse Patient Records regulations: The Federal rules restrict any use of the information to criminally investigate or prosecute any alcohol or drug abuse patient.[facility] HospitalIn the event this information is protected by the Federal Confidentiality of Alcohol and Drug Abuse Patient Records regulations: The Federal rules restrict any use of the information to criminally investigate or prosecute any alcohol or drug abuse patient.[facility] HospitalIn the event this information is protected by the Federal Confidentiality of Alcohol and Drug Abuse Patient Records regulations: The Federal rules restrict any use of the information to criminally investigate or prosecute any alcohol or drug abuse patient.[facility] HospitalIn the event this information is protected by the Federal Confidentiality of Alcohol and Drug Abuse Patient Records regulations: The Federal rules restrict any use of the information to criminally investigate or prosecute any alcohol or drug abuse patient.[facility] HospitalIn the event this information is protected by the Federal Confidentiality of Alcohol and Drug Abuse Patient Records regulations: The Federal rules restrict any use of the information to criminally investigate or prosecute any alcohol or drug abuse patient.[facility] HospitalIn the event this information is protected by the Federal Confidentiality of Alcohol and Drug Abuse Patient Records regulations: The Federal rules restrict any use of the information to criminally investigate or prosecute any alcohol or drug abuse patient.[facility] HospitalIn the event this information is protected by the Federal Confidentiality of Alcohol and Drug Abuse Patient Records regulations: The Federal rules restrict any use of the information to criminally investigate or prosecute any alcohol or drug abuse patient.[facility] HospitalIn the event this information is protected by the Federal Confidentiality of Alcohol and Drug Abuse Patient Records regulations: The Federal rules restrict any use of the information to criminally investigate or prosecute any alcohol or drug abuse patient.[facility] HospitalIn the event this information is protected by the Federal Confidentiality of Alcohol and Drug Abuse Patient Records regulations: The Federal rules restrict any use of the information to criminally investigate or prosecute any alcohol or drug abuse patient.[facility] HospitalIn the event this information is protected by the Federal Confidentiality of Alcohol and Drug Abuse Patient Records regulations: The Federal rules restrict any use of the information to criminally investigate or prosecute any alcohol or drug abuse patient.[facility] HospitalIn the event this information is protected by the Federal Confidentiality of Alcohol and Drug Abuse Patient Records regulations: The Federal rules restrict any use of the information to criminally investigate or prosecute any alcohol or drug abuse patient.[facility] HospitalIn the event this information is protected by the Federal Confidentiality of Alcohol and Drug Abuse Patient Records regulations: The Federal rules restrict any use of the information to criminally investigate or prosecute any alcohol or drug abuse patient.[facility] HospitalIn the event this information is protected by the Federal Confidentiality of Alcohol and Drug Abuse Patient Records regulations: The Federal rules restrict any use of the information to criminally investigate or prosecute any alcohol or drug abuse patient.[facility] HospitalIn the event this information is protected by the Federal Confidentiality of Alcohol and Drug Abuse Patient Records regulations: The Federal rules restrict any use of the information to criminally investigate or prosecute any alcohol or drug abuse patient.[facility] HospitalIn the event this information is protected by the Federal Confidentiality of Alcohol and Drug Abuse Patient Records regulations: The Federal rules restrict any use of the information to criminally investigate or prosecute any alcohol or drug abuse patient.[facility] HospitalIn the event this information is protected by the Federal Confidentiality of Alcohol and Drug Abuse Patient Records regulations: The Federal rules restrict any use of the information to criminally investigate or prosecute any alcohol or drug abuse patient.[facility] HospitalIn the event this information is protected by the Federal Confidentiality of Alcohol and Drug Abuse Patient Records regulations: The Federal rules restrict any use of the information to criminally investigate or prosecute any alcohol or drug abuse patient.[facility] HospitalIn the event this information is protected by the Federal Confidentiality of Alcohol and Drug Abuse Patient Records regulations: The Federal rules restrict any use of the information to criminally investigate or prosecute any alcohol or drug abuse patient.[facility] HospitalIn the event this information is protected by the Federal Confidentiality of Alcohol and Drug Abuse Patient Records regulations: The Federal rules restrict any use of the information to criminally investigate or prosecute any alcohol or drug abuse patient.[facility] HospitalIn the event this information is protected by the Federal Confidentiality of Alcohol and Drug Abuse Patient Records regulations: The Federal rules restrict any use of the information to criminally investigate or prosecute any alcohol or drug abuse patient.[facility] HospitalIn the event this information is protected by the Federal Confidentiality of Alcohol and Drug Abuse Patient Records regulations: The Federal rules restrict any use of the information to criminally investigate or prosecute any alcohol or drug abuse patient.[facility] HospitalIn the event this information is protected by the Federal Confidentiality of Alcohol and Drug Abuse Patient Records regulations: The Federal rules restrict any use of the information to criminally investigate or prosecute any alcohol or drug abuse patient.[facility] HospitalIn the event this information is protected by the Federal Confidentiality of Alcohol and Drug Abuse Patient Records regulations: The Federal rules restrict any use of the information to criminally investigate or prosecute any alcohol or drug abuse patient.[facility] HospitalIn the event this information is protected by the Federal Confidentiality of Alcohol and Drug Abuse Patient Records regulations: The Federal rules restrict any use of the information to criminally investigate or prosecute any alcohol or drug abuse patient.[facility] HospitalIn the event this information is protected by the Federal Confidentiality of Alcohol and Drug Abuse Patient Records regulations: The Federal rules restrict any use of the information to criminally investigate or prosecute any alcohol or drug abuse patient.[facility] HospitalIn the event this information is protected by the Federal Confidentiality of Alcohol and Drug Abuse Patient Records regulations: The Federal rules restrict any use of the information to criminally investigate or prosecute any alcohol or drug abuse patient.[facility] HospitalIn the event this information is protected by the Federal Confidentiality of Alcohol and Drug Abuse Patient Records regulations: The Federal rules restrict any use of the information to criminally investigate or prosecute any alcohol or drug abuse patient.[facility] HospitalIn the event this information is protected by the Federal Confidentiality of Alcohol and Drug Abuse Patient Records regulations: The Federal rules restrict any use of the information to criminally investigate or prosecute any alcohol or drug abuse patient.[facility] HospitalIn the event this information is protected by the Federal Confidentiality of Alcohol and Drug Abuse Patient Records regulations: The Federal rules restrict any use of the information to criminally investigate or prosecute any alcohol or drug abuse patient.[facility] HospitalIn the event this information is protected by the Federal Confidentiality of Alcohol and Drug Abuse Patient Records regulations: The Federal rules restrict any use of the information to criminally investigate or prosecute any alcohol or drug abuse patient.[facility] HospitalIn the event this information is protected by the Federal Confidentiality of Alcohol and Drug Abuse Patient Records regulations: The Federal rules restrict any use of the information to criminally investigate or prosecute any alcohol or drug abuse patient.[facility] HospitalIn the event this information is protected by the Federal Confidentiality of Alcohol and Drug Abuse Patient Records regulations: The Federal rules restrict any use of the information to criminally investigate or prosecute any alcohol or drug abuse patient.[facility] HospitalIn the event this information is protected by the Federal Confidentiality of Alcohol and Drug Abuse Patient Records regulations: The Federal rules restrict any use of the information to criminally investigate or prosecute any alcohol or drug abuse patient.[facility] HospitalIn the event this information is protected by the Federal Confidentiality of Alcohol and Drug Abuse Patient Records regulations: The Federal rules restrict any use of the information to criminally investigate or prosecute any alcohol or drug abuse patient.[facility] HospitalIn the event this information is protected by the Federal Confidentiality of Alcohol and Drug Abuse Patient Records regulations: The Federal rules restrict any use of the information to criminally investigate or prosecute any alcohol or drug abuse patient.[facility] HospitalIn the event this information is protected by the Federal Confidentiality of Alcohol and Drug Abuse Patient Records regulations: The Federal rules restrict any use of the information to criminally investigate or prosecute any alcohol or drug abuse patient.[facility] HospitalIn the event this information is protected by the Federal Confidentiality of Alcohol and Drug Abuse Patient Records regulations: The Federal rules restrict any use of the information to criminally investigate or prosecute any alcohol or drug abuse patient.[facility] HospitalIn the event this information is protected by the Federal Confidentiality of Alcohol and Drug Abuse Patient Records regulations: The Federal rules restrict any use of the information to criminally investigate or prosecute any alcohol or drug abuse patient.[facility] HospitalIn the event this information is protected by the Federal Confidentiality of Alcohol and Drug Abuse Patient Records regulations: The Federal rules restrict any use of the information to criminally investigate or prosecute any alcohol or drug abuse patient.[facility] HospitalIn the event this information is protected by the Federal Confidentiality of Alcohol and Drug Abuse Patient Records regulations: The Federal rules restrict any use of the information to criminally investigate or prosecute any alcohol or drug abuse patient.[facility] HospitalIn the event this information is protected by the Federal Confidentiality of Alcohol and Drug Abuse Patient Records regulations: The Federal rules restrict any use of the information to criminally investigate or prosecute any alcohol or drug abuse patient.[facility] HospitalIn the event this information is protected by the Federal Confidentiality of Alcohol and Drug Abuse Patient Records regulations: The Federal rules restrict any use of the information to criminally investigate or prosecute any alcohol or drug abuse patient.[facility] HospitalIn the event this information is protected by the Federal Confidentiality of Alcohol and Drug Abuse Patient Records regulations: The Federal rules restrict any use of the information to criminally investigate or prosecute any alcohol or drug abuse patient.[facility] HospitalIn the event this information is protected by the Federal Confidentiality of Alcohol and Drug Abuse Patient Records regulations: The Federal rules restrict any use of the information to criminally investigate or prosecute any alcohol or drug abuse patient.[facility] HospitalIn the event this information is protected by the Federal Confidentiality of Alcohol and Drug Abuse Patient Records regulations: The Federal rules restrict any use of the information to criminally investigate or prosecute any alcohol or drug abuse patient.[facility] HospitalIn the event this information is protected by the Federal Confidentiality of Alcohol and Drug Abuse Patient Records regulations: The Federal rules restrict any use of the information to criminally investigate or prosecute any alcohol or drug abuse patient.[facility] HospitalIn the event this information is protected by the Federal Confidentiality of Alcohol and Drug Abuse Patient Records regulations: The Federal rules restrict any use of the information to criminally investigate or prosecute any alcohol or drug abuse patient.[facility] HospitalIn the event this information is protected by the Federal Confidentiality of Alcohol and Drug Abuse Patient Records regulations: The Federal rules restrict any use of the information to criminally investigate or prosecute any alcohol or drug abuse patient.[facility] HospitalIn the event this information is protected by the Federal Confidentiality of Alcohol and Drug Abuse Patient Records regulations: The Federal rules restrict any use of the information to criminally investigate or prosecute any alcohol or drug abuse patient.[facility] HospitalIn the event this information is protected by the Federal Confidentiality of Alcohol and Drug Abuse Patient Records regulations: The Federal rules restrict any use of the information to criminally investigate or prosecute any alcohol or drug abuse patient.[facility] HospitalIn the event this information is protected by the Federal Confidentiality of Alcohol and Drug Abuse Patient Records regulations: The Federal rules restrict any use of the information to criminally investigate or prosecute any alcohol or drug abuse patient.[facility] HospitalIn the event this information is protected by the Federal Confidentiality of Alcohol and Drug Abuse Patient Records regulations: The Federal rules restrict any use of the information to criminally investigate or prosecute any alcohol or drug abuse patient.[facility] HospitalIn the event this information is protected by the Federal Confidentiality of Alcohol and Drug Abuse Patient Records regulations: The Federal rules restrict any use of the information to criminally investigate or prosecute any alcohol or drug abuse patient.[facility] HospitalIn the event this information is protected by the Federal Confidentiality of Alcohol and Drug Abuse Patient Records regulations: The Federal rules restrict any use of the information to criminally investigate or prosecute any alcohol or drug abuse patient.[facility] HospitalIn the event this information is protected by the Federal Confidentiality of Alcohol and Drug Abuse Patient Records regulations: The Federal rules restrict any use of the information to criminally investigate or prosecute any alcohol or drug abuse patient.[facility] HospitalIn the event this information is protected by the Federal Confidentiality of Alcohol and Drug Abuse Patient Records regulations: The Federal rules restrict any use of the information to criminally investigate or prosecute any alcohol or drug abuse patient.[facility] HospitalIn the event this information is protected by the Federal Confidentiality of Alcohol and Drug Abuse Patient Records regulations: The Federal rules restrict any use of the information to criminally investigate or prosecute any alcohol or drug abuse patient.[facility] HospitalIn the event this information is protected by the Federal Confidentiality of Alcohol and Drug Abuse Patient Records regulations: The Federal rules restrict any use of the information to criminally investigate or prosecute any alcohol or drug abuse patient.[facility] HospitalIn the event this information is protected by the Federal Confidentiality of Alcohol and Drug Abuse Patient Records regulations: The Federal rules restrict any use of the information to criminally investigate or prosecute any alcohol or drug abuse patient.[facility] HospitalIn the event this information is protected by the Federal Confidentiality of Alcohol and Drug Abuse Patient Records regulations: The Federal rules restrict any use of the information to criminally investigate or prosecute any alcohol or drug abuse patient.[facility] HospitalIn the event this information is protected by the Federal Confidentiality of Alcohol and Drug Abuse Patient Records regulations: The Federal rules restrict any use of the information to criminally investigate or prosecute any alcohol or drug abuse patient.[facility] HospitalIn the event this information is protected by the Federal Confidentiality of Alcohol and Drug Abuse Patient Records regulations: The Federal rules restrict any use of the information to criminally investigate or prosecute any alcohol or drug abuse patient.[facility] HospitalIn the event this information is protected by the Federal Confidentiality of Alcohol and Drug Abuse Patient Records regulations: The Federal rules restrict any use of the information to criminally investigate or prosecute any alcohol or drug abuse patient.[facility] HospitalIn the event this information is protected by the Federal Confidentiality of Alcohol and Drug Abuse Patient Records regulations: The Federal rules restrict any use of the information to criminally investigate or prosecute any alcohol or drug abuse patient.[facility] HospitalIn the event this information is protected by the Federal Confidentiality of Alcohol and Drug Abuse Patient Records regulations: The Federal rules restrict any use of the information to criminally investigate or prosecute any alcohol or drug abuse patient.[facility] HospitalIn the event this information is protected by the Federal Confidentiality of Alcohol and Drug Abuse Patient Records regulations: The Federal rules restrict any use of the information to criminally investigate or prosecute any alcohol or drug abuse patient.[facility] HospitalIn the event this information is protected by the Federal Confidentiality of Alcohol and Drug Abuse Patient Records regulations: The Federal rules restrict any use of the information to criminally investigate or prosecute any alcohol or drug abuse patient.[facility] HospitalIn the event this information is protected by the Federal Confidentiality of Alcohol and Drug Abuse Patient Records regulations: The Federal rules restrict any use of the information to criminally investigate or prosecute any alcohol or drug abuse patient.[facility] HospitalIn the event this information is protected by the Federal Confidentiality of Alcohol and Drug Abuse Patient Records regulations: The Federal rules restrict any use of the information to criminally investigate or prosecute any alcohol or drug abuse patient.[facility] HospitalIn the event this information is protected by the Federal Confidentiality of Alcohol and Drug Abuse Patient Records regulations: The Federal rules restrict any use of the information to criminally investigate or prosecute any alcohol or drug abuse patient.[facility] HospitalIn the event this information is protected by the Federal Confidentiality of Alcohol and Drug Abuse Patient Records regulations: The Federal rules restrict any use of the information to criminally investigate or prosecute any alcohol or drug abuse patient.[facility] HospitalIn the event this information is protected by the Federal Confidentiality of Alcohol and Drug Abuse Patient Records regulations: The Federal rules restrict any use of the information to criminally investigate or prosecute any alcohol or drug abuse patient.[facility] HospitalIn the event this information is protected by the Federal Confidentiality of Alcohol and Drug Abuse Patient Records regulations: The Federal rules restrict any use of the information to criminally investigate or prosecute any alcohol or drug abuse patient.[facility] HospitalIn the event this information is protected by the Federal Confidentiality of Alcohol and Drug Abuse Patient Records regulations: The Federal rules restrict any use of the information to criminally investigate or prosecute any alcohol or drug abuse patient.[facility] HospitalIn the event this information is protected by the Federal Confidentiality of Alcohol and Drug Abuse Patient Records regulations: The Federal rules restrict any use of the information to criminally investigate or prosecute any alcohol or drug abuse patient.[facility] HospitalIn the event this information is protected by the Federal Confidentiality of Alcohol and Drug Abuse Patient Records regulations: The Federal rules restrict any use of the information to criminally investigate or prosecute any alcohol or drug abuse patient.[facility] HospitalIn the event this information is protected by the Federal Confidentiality of Alcohol and Drug Abuse Patient Records regulations: The Federal rules restrict any use of the information to criminally investigate or prosecute any alcohol or drug abuse patient.[facility] HospitalIn the event this information is protected by the Federal Confidentiality of Alcohol and Drug Abuse Patient Records regulations: The Federal rules restrict any use of the information to criminally investigate or prosecute any alcohol or drug abuse patient.[facility] HospitalIn the event this information is protected by the Federal Confidentiality of Alcohol and Drug Abuse Patient Records regulations: The Federal rules restrict any use of the information to criminally investigate or prosecute any alcohol or drug abuse patient.[facility] HospitalIn the event this information is protected by the Federal Confidentiality of Alcohol and Drug Abuse Patient Records regulations: The Federal rules restrict any use of the information to criminally investigate or prosecute any alcohol or drug abuse patient.[facility] HospitalIn the event this information is protected by the Federal Confidentiality of Alcohol and Drug Abuse Patient Records regulations: The Federal rules restrict any use of the information to criminally investigate or prosecute any alcohol or drug abuse patient.[facility] HospitalIn the event this information is protected by the Federal Confidentiality of Alcohol and Drug Abuse Patient Records regulations: The Federal rules restrict any use of the information to criminally investigate or prosecute any alcohol or drug abuse patient.[facility] HospitalIn the event this information is protected by the Federal Confidentiality of Alcohol and Drug Abuse Patient Records regulations: The Federal rules restrict any use of the information to criminally investigate or prosecute any alcohol or drug abuse patient.[facility] HospitalIn the event this information is protected by the Federal Confidentiality of Alcohol and Drug Abuse Patient Records regulations: The Federal rules restrict any use of the information to criminally investigate or prosecute any alcohol or drug abuse patient.[facility] HospitalIn the event this information is protected by the Federal Confidentiality of Alcohol and Drug Abuse Patient Records regulations: The Federal rules restrict any use of the information to criminally investigate or prosecute any alcohol or drug abuse patient.[facility] HospitalIn the event this information is protected by the Federal Confidentiality of Alcohol and Drug Abuse Patient Records regulations: The Federal rules restrict any use of the information to criminally investigate or prosecute any alcohol or drug abuse patient.[facility] HospitalIn the event this information is protected by the Federal Confidentiality of Alcohol and Drug Abuse Patient Records regulations: The Federal rules restrict any use of the information to criminally investigate or prosecute any alcohol or drug abuse patient.[facility] HospitalIn the event this information is protected by the Federal Confidentiality of Alcohol and Drug Abuse Patient Records regulations: The Federal rules restrict any use of the information to criminally investigate or prosecute any alcohol or drug abuse patient.[facility] HospitalIn the event this information is protected by the Federal Confidentiality of Alcohol and Drug Abuse Patient Records regulations: The Federal rules restrict any use of the information to criminally investigate or prosecute any alcohol or drug abuse patient.[facility] HospitalIn the event this information is protected by the Federal Confidentiality of Alcohol and Drug Abuse Patient Records regulations: The Federal rules restrict any use of the information to criminally investigate or prosecute any alcohol or drug abuse patient.[facility] HospitalIn the event this information is protected by the Federal Confidentiality of Alcohol and Drug Abuse Patient Records regulations: The Federal rules restrict any use of the information to criminally investigate or prosecute any alcohol or drug abuse patient.[facility] HospitalIn the event this information is protected by the Federal Confidentiality of Alcohol and Drug Abuse Patient Records regulations: The Federal rules restrict any use of the information to criminally investigate or prosecute any alcohol or drug abuse patient.[facility] HospitalIn the event this information is protected by the Federal Confidentiality of Alcohol and Drug Abuse Patient Records regulations: The Federal rules restrict any use of the information to criminally investigate or prosecute any alcohol or drug abuse patient.[facility] HospitalIn the event this information is protected by the Federal Confidentiality of Alcohol and Drug Abuse Patient Records regulations: The Federal rules restrict any use of the information to criminally investigate or prosecute any alcohol or drug abuse patient.[facility] HospitalIn the event this information is protected by the Federal Confidentiality of Alcohol and Drug Abuse Patient Records regulations: The Federal rules restrict any use of the information to criminally investigate or prosecute any alcohol or drug abuse patient.[facility] HospitalIn the event this information is protected by the Federal Confidentiality of Alcohol and Drug Abuse Patient Records regulations: The Federal rules restrict any use of the information to criminally investigate or prosecute any alcohol or drug abuse patient.[facility] HospitalIn the event this information is protected by the Federal Confidentiality of Alcohol and Drug Abuse Patient Records regulations: The Federal rules restrict any use of the information to criminally investigate or prosecute any alcohol or drug abuse patient.[facility] HospitalIn the event this information is protected by the Federal Confidentiality of Alcohol and Drug Abuse Patient Records regulations: The Federal rules restrict any use of the information to criminally investigate or prosecute any alcohol or drug abuse patient.[facility] HospitalIn the event this information is protected by the Federal Confidentiality of Alcohol and Drug Abuse Patient Records regulations: The Federal rules restrict any use of the information to criminally investigate or prosecute any alcohol or drug abuse patient.[facility] HospitalIn the event this information is protected by the Federal Confidentiality of Alcohol and Drug Abuse Patient Records regulations: The Federal rules restrict any use of the information to criminally investigate or prosecute any alcohol or drug abuse patient.[facility] HospitalIn the event this information is protected by the Federal Confidentiality of Alcohol and Drug Abuse Patient Records regulations: The Federal rules restrict any use of the information to criminally investigate or prosecute any alcohol or drug abuse patient.[facility] HospitalIn the event this information is protected by the Federal Confidentiality of Alcohol and Drug Abuse Patient Records regulations: The Federal rules restrict any use of the information to criminally investigate or prosecute any alcohol or drug abuse patient.[facility] Reason for Visit (unrecogniz ed section and content) Reason Comments PT Progress Note Specialty Diagnoses / Procedures Referred By Contac t Referred To Contact [facility] Diagnoses Unsteady gait when walking Lymphedema of both lower extremities Procedures CONSULT TO PHYSICAL THERAPY PHYSICAL THERAPY EVALUATION HIGH COMPLEX 45 MINS Chhaya Stacy MD [address] [place] [address] [facility] [address] [address] Referral ID Status Reason Start Date Expiration Date Visits Requested Visits Authorized [id number] Authorized Auto-Generat ed Referral 05/15/2023 07/25/2023 10 10 Reason Comments Physical Therapy PT Re-eval Reason Comments Physical Therapy Specialty Diagnoses / Procedures Referred By Contac t Referred To Contact [facility] Diagnoses Lymphedema of both lower extremities Procedures PT REHAB FOLLOW UP ORDER THERAPEUTIC EXERCISES RE, EA 15 MIN. Prerna Bonds PT [facility] [address] [address] Referral ID Status Reason Start Date Expiration Date Visits Requested Visits Authorized [id number] Authorized PCP Requested Referral Auto-Generate d Referral 12/04/2022 03/05/2023 4 4 Specialty Diagnoses / Procedures Referred By Contac t Referred To Contact Physical Therapy / PHYSICAL THERAPY Diagnoses I89.0 (ICD-10-CM) - Lymphedema of both lower extremities Procedures EST RS PT LYMPHEDEMA Jaquan Sanchez MD [address] [place] [id number] Prerna Bonds PT Referral ID Status Reason Start Date Expiration Date V isits Requested Visits Authorized [id number] Authorized 06/20/2022 08/24/2022 8 8 Referral ID Status Reason Start Date Expiration Date Visits Requested Visits Authorized [id number] Authorized PCP Requested Referral Auto-Generate d Referral 03/21/2022 06/21/2022 12 12 Specialty Diagnoses / Procedures Referred By Contac t Referred To Contact Physical Therapy / PHYSICAL THERAPY Diagnoses Lymphedema [I89.0] Procedures EST RS PT LYMPHEDEMA Self Prerna Bonds, PT Referral ID Status Reason Start Date Expiration Date Visits Re quested Visits Authorized [id number] Closed 09/04/2021 08/25/2022 1 1 Specialty Diagnoses / Procedures Referred By Contac t Referred To Contact Physical Therapy / PHYSICAL THERAPY Diagnoses Lymphedema [I89.0] Procedures EST RS PT LYMPHEDEMA Self Prerna Bonds, PT [address] [place] [address] Reason Comments Follow Up Specialty Diagnoses / Procedures Referred By Contac t Referred To Contact Physical Therapy / PHYSICAL THERAPY Diagnoses Lymphedema [I89.0] Procedures EST RS PT LYMPHEDEMA Self, Prerna Baeza PT Reason Comments PT Progress Note Specialty Diagnoses / Procedures Referred By Contac t Referred To Contact Physical Therapy / PHYSICAL THERAPY Diagnoses Lymphedema [I89.0] Procedures EST RS PT LYMPHEDEMA Self, Prerna Baeza, PT Referral ID Status Reason Start Date Expiration Date V isits Requested Visits Authorized [id number] Closed PCP Requested Referral Auto-Generated Referral 03/21/2022 06/21/2022 12 12 Specialty Diagnoses / Procedures Referred By Contac t Referred To Contact PHYSICAL THERAPY Diagnoses I89.0 (ICD-10-CM) - Lymphedema of both lower extremities Procedures I89.0 (ICD-10-CM) - Lymphedema of both lower extremities Jaquan Sanchez MD [address] [place] [address] Pt [facility] [address] [place] [address] Referral ID Status Reason Start Date Expiration Date V isits Requested Visits Authorized [id number] Outside PCP 08/10/2022 11/08/2022 1 1 Reason Comments Swelling Established Patient Follow Up Pain Referral ID Status Reason Start Date Expiration Date V isits Requested Visits Authorized [id number] Authorized 09/10/2022 12/23/2022 12 12 Reason Comments Results Reason Comments Physical Therapy Specialty Diagnoses / Procedures Referred By Contac t Referred To Contact PHYSICAL THERAPY Diagnoses I89.0 (ICD-10-CM) - Lymphedema of both lower extremities Procedures I89.0 (ICD-10-CM) - Lymphedema of both lower extremities Jaquan Sanchez MD [address] [place] [address] Pt [facility] [address] [place] [address] Reason Onset Date Comments Referral Information 12/06/2022 Reason Comments Patient Question Missed call Reason Comments Appointment Specialty Diagnoses / Procedures Referred By Contac t Referred To Contact Physical Therapy / PHYSICAL THERAPY Diagnoses 01/25/2023I89.0 (ICD-10-CM) - Lymphedema of both lower extremities Procedures EST RS PT LYMPHEDEMA Lemon, Prerna, PT Lemon, Prerna, PT Referral ID Status Reason Start Date Expiration Date V isits Requested Visits Authorized [id number] Authorized 01/25/2023 05/14/2023 16 16 Referral ID Status Reason Start Date Expiration Date V isits Requested Visits Authorized [id number] Closed PCP Requested Referral Auto-Generated Referral 12/04/2022 03/05/2023 4 4 Reason Comments Patient Update Specialty Diagnoses / Procedures Referred By Contac t Referred To Contact Physical Therapy / PHYSICAL THERAPY Diagnoses 01/25/2023I89.0 (ICD-10-CM) - Lymphedema of both lower extremities Procedures EST RS PT LYMPHEDEMA Lemon, Prerna, PT Lemon, Prerna, PT Reason Comments Nail Check Pain Specialty Diagnoses / Procedures Referred By Contac t Referred To Contact Physical Therapy / PHYSICAL THERAPY Diagnoses R26.81 (ICD-10-CM) - Unsteady gait when walking I89.0 (ICD-10-CM) - Lymphedema of both lower extremities Procedures: 9032 - CONSULT TO PHYSICAL THERAPY 24036 (CPT ) - PHYSICAL THERAPY EVALUATION HIGH COMPLEX 45 MINS Start: May 15, 2023 Procedures R26.81 (ICD-10-CM) - Unsteady gait when walking I89.0 (ICD-10-CM) - Lymphedema of both lower extremities Procedures: 9032 - CONSULT TO PHYSICAL THERAPY 07591 (CPT ) - PHYSICAL THERAPY EVALUATION HIGH COMPLEX 45 MINS Start: May 15, 2023 Chhaya Stacy MD [address] [place] [address] Prerna Bonds, PT Referral ID Status Reason Start Date Expiration Date V isits Requested Visits Authorized [id number] Authorized 06/27/2023 08/25/2023 16 16 Specialty Diagnoses / Procedures Referred By Contac t Referred To Contact [facility] Diagnoses Lymphedema of both lower extremities Procedures PT REHAB FOLLOW UP ORDER THERAPEUTIC EXERCISES RE, EA 15 MIN. Chhaya Stacy MD [address] [place] [address] [facility] [address] [place] [address] Referral ID Status Reason Start Date Expiration Date Visits Requested Visits Authorized [id number] Authorized PCP Requested Referral Auto-Generate d Referral 09/27/2023 10/26/2023 4 4 Specialty Diagnoses / Procedures Referred By Celestino t Referred To Contact PHYSICAL THERAPY Diagnoses Lymphedema, not elsewhere classified I89.0 (ICD-10-CM) - Lymphedema of both lower extremities Procedures I89.0 (ICD-10-CM) - Lymphedema of both lower extremities Chhaya Stacy MD [address] [place] [address] [facility] [address] [facility] [place] [address] Referral ID Status Reason Start Date Expiration Date V isits Requested Visits Authorized [id number] Authorized 10/28/2023 01/28/2024 8 8 Reason Comments Established Patient Debridement of Nail Specialty Diagnoses / Procedures Referred By Contac t Referred To Contact PHYSICAL THERAPY Diagnoses Lymphedema, not elsewhere classified I89.0 (ICD-10-CM) - Lymphedema of both lower extremities Procedures I89.0 (ICD-10-CM) - Lymphedema of both lower extremities Chhaya Stacy MD [address] [place] [address] Pt [facility] [address] [facility] [place] [address] Referral ID Status Reason Start Date Expiration Date Visits Re quested Visits Authorized [id number] Closed 10/28/2023 01/28/2024 8 8 Referral ID Status Reason Start Date Expiration Date Visits Requested Visits Authorized [id number] Authorized PCP Requested Referral Auto-Generate d Referral 01/22/2024 04/26/2024 4 4 Specialty Diagnoses / Procedures Referred By Contac t Referred To Contact Physical Therapy / PHYSICAL THERAPY Diagnoses Lymphedema of both lower extremities Procedures PT REHAB FOLLOW UP ORDER THERAPEUTIC EXERCISES RE, EA 15 MIN. Chhaya Stacy MD [address] [place] [address] Prerna Bonds PT Referral ID Status Reason Start Date Expiration Date V isits Requested Visits Authorized [id number] Closed PCP Requested Referral Auto-Generated Referral 01/22/2024 04/26/2024 4 4 Specialty Diagnoses / Procedures Referred By Contac t Referred To Contact Physical Therapy / PHYSICAL THERAPY Diagnoses Lymphedema, not elsewhere classified Procedures THERAPEUTIC EXERCISES RE, EA 15 MIN. Chhaya Stacy MD [address] [place] [address] Prerna Bonds PT Referral ID Status Reason Start Date Expiration Date V isits Requested Visits Authorized [id number] Authorized 03/12/2024 06/26/2024 20 20 Reason Comments Returning Patient's Call Returned pt's v [employer] message requesting more PT visits and concern that her legs/feet are more swollen. Therapist reviewed the appts that were already scheduled with pt and offered an appt for Sat. 06/15 that became available today d/t can. Pt first stated she could only keep Saturday's visit (06/19) because her locomotive driver can only take her on Fridays. Later, she said she would call her locomotive driver to see if she could bring her on Saturday and would let us know. Reviewed HEP with pt & instructed to do 2x/day Specialty Diagnoses / Procedures Referred By Contac t Referred To Contact PHYSICAL THERAPY Diagnoses 89.0 (ICD-10-CM) - Lymphedema, not elsewhere classified Procedures 89.0 (ICD-10-CM) - Lymphedema, not elsewhere classified Chhaya Stacy MD [address] [place] [address] Pt [facility] [address] [place] [address] Referral ID Status Reason Start Date Expiration Date V isits Requested Visits Authorized [id number] Authorized 07/07/2024 09/25/2024 20 20 Specialty Diagnoses / Procedures Referred By Contac t Referred To Contact PHYSICAL THERAPY Diagnoses 89.0 (ICD-10-CM) - Lymphedema, not elsewhere classified Procedures 89.0 (ICD-10-CM) - Lymphedema, not elsewhere classified Chhaya Stacy MD [address] [place] [address] Pt [facility] [address] [place] [address] Specialty Diagnoses / Procedures Referred By Contac t Referred To Contact [facility] Diagnoses Lymphedema of both lower extremities Procedures PT REHAB FOLLOW UP ORDER THERAPEUTIC EXERCISES RE, EA 15 MIN. Tyler Benitez MD [address] [place] [address] Phone: tel: fax: [facility] [address] [place] [address] Referral ID Status Reason Start Date Expiration Date Visits Requested Visits Authorized [id number] Authorized PCP Requested Referral Auto-Generate d Referral 09/30/2024 02/22/2025 30 30 Reason Comments Returning Patient's Call Pt left message on therapist voicemail requesting a call back. Therapist called to talk to pt who notified her that her leg is weeping fluid and was itchy. She stated she removed her compression bandage and,"It doesn't look very good", and is red. Therapist instructed pt to go to ER d/t high possibility of infection. Pt stated she was told the last time she was there that, "she may as well not come back because they don't know how to treat that anyway" (the lymphedema). (cont.) Reason Comments Patient Question Therapist spoke with nurse in [facility] [facility]) who consulted physician on staff and advised [...] medically before therapy anyway. Reason Comments Orders Reason Comments Established Patient Debridement of Nail Reason Comments Patient Update Wound Seepage Reason Comments PT Re-eval Specialty Diagnoses / Procedures Referred By Contac t Referred To Contact Physical Therapy / PHYSICAL THERAPY Diagnoses I89.0 (ICD-10-CM) - Lymphedema of both lower extremities Procedures EST PT/OT [facility] Tyler Benitez MD [address] [place] [address] Phone: tel: fax: Ana Rosa Ricketts, PT [address] [place] [address] Phone: tel: Referral ID Status Reason Start Date Expiration Date V isits Requested Visits Authorized [id number] Authorized 03/17/2025 06/17/2025 15 15 Care Teams (unrecognized sec tion and content) Diabetes Manager Relationship Specialty Start Date End Date Tyler Benitez MD [address] [place] [address] PCP - General Family Practice 06/06/20 Geo Rivera MD [address] [place] [address] Referring Orthotics & Prosthetics 07/11/20 Diabetes Manager Relationship Specialty Start Date End Date Tyler Benitez MD [address] [place] [address] PCP - General Family Practice 06/06/20 Geo Rivera MD [address] [place] [address] Referring Orthotics & Prosthetics 07/11/20 Diabetes Manager Relationship Specialty Start Date End Date Tyler Benitez MD [address] [place] [address] PCP - General Family Practice 06/06/20 Geo Rivera MD [address] [place] [address] Referring Orthotics & Prosthetics 07/11/20 Diabetes Manager Relationship Specialty Start Date End Date Tyler Benitez MD [address] [place] [address] PCP - General Family Practice 06/06/20 Geo Rivera MD [address] [place] [phone] Referring Orthotics & Prosthetics 07/11/20 Diabetes Manager Relationship Specialty Start Date End Date Tyler Benitez MD [address] [place] [address] PCP - General Family Practice 06/06/20 Geo Rivera MD [address] [place] [phone] Referring Orthotics & Prosthetics 07/11/20 Diabetes Manager Relationship Specialty Start Date End Date Tyler Benitez MD [address] [place] [address] PCP - General Family Practice 06/06/20 Geo Rivera MD [address] [place] [address] Referring Orthotics & Prosthetics 07/11/20 Diabetes Manager Relationship Specialty Start Date End Date Tyler Benitez MD [address] [place] [address] PCP - General Family Practice 06/06/20 Geo Rivera MD [address] [place] [address] Referring Orthotics & Prosthetics 07/11/20 Diabetes Manager Relationship Specialty Start Date End Date Tyler Benitez MD [address] [place] [address] PCP - General Family Practice 06/06/20 Geo Rivera MD [address] [place] [phone] Referring Orthotics & Prosthetics 07/11/20 Diabetes Manager Relationship Specialty Start Date End Date Tyler Benitez MD [address] [place] [address] PCP - General Family Medicine 06/06/20 Geo Rivera MD [address] [place] [address] Referring Orthotics & Prosthetics 07/11/20 Diabetes Manager Relationship Specialty Start Date End Date Tyler Benitez MD [address] [place] [address] PCP - General Family Medicine 06/06/20 Geo Rivera MD [address] [place] [address] Referring Orthotics & Prosthetics 07/11/20 Diabetes Manager Relationship Specialty Start Date End Date Tyler Benitez MD [address] [place] [address] PCP - General Family Medicine 06/06/20 Geo Rivera MD [address] [place] [address] Referring Orthotics & Prosthetics 07/11/20 Diabetes Manager Relationship Specialty Start Date End Date Tyler Benitez MD [address] [place] [address] PCP - General Family Medicine 06/06/20 Geo Rivera MD [address] [place] [address] Referring Orthotics & Prosthetics 07/11/20 Diabetes Manager Relationship Specialty Start Date End Date Tyler Benitez MD [address] [place] [address] PCP - General Family Medicine 06/06/20 Geo Rivera MD [address] [place] [address] Referring Orthotics & Prosthetics 07/11/20 Diabetes Manager Relationship Specialty Start Date End Date Tyler Benitez MD [address] [place] [address] PCP - General Family Medicine 06/06/20 Geo Rivera MD [address] [place] [address] Referring Orthotics & Prosthetics 07/11/20 Diabetes Manager Relationship Specialty Start Date End Date Tyler Benitez MD [address] [place] [address] PCP - General Family Medicine 06/06/20 Geo Rivera MD [address] [place] [address] Referring Orthotics & Prosthetics 07/11/20 Diabetes Manager Relationship Specialty Start Date End Date Tyler Benitez MD [address] [place] [address] PCP - General Family Medicine 06/06/20 Geo Rivera MD [address] [place] [address] Referring Orthotics & Prosthetics 07/11/20 Diabetes Manager Relationship Specialty Start Date End Date Tyler Benitez MD [address] [place], [place] [address] PCP - General Family Medicine 06/06/20 Geo Rivera MD [address] [place] [phone] Referring Orthotics & Prosthetics 07/11/20 Diabetes Manager Relationship Specialty Start Date End Date Tyler Benitez MD [address] [place], [place] [id number] PCP - General Family Medicine 06/06/20 Geo Rivera MD [address] [place] [phone] Referring Orthotics & Prosthetics 07/11/20 Team Status: Active Member Role Status Dates Dr. Tyler Benitez MD Family Provider Active Dr. Tyler Benitez MD Primary Care Provider Active Team Status: Inactive Member Role Status Dates Dr. Tyler Benitez MD Primary Care Provide r, Attending Provider, Referring Provider Active Diabetes Manager Relationship Specialty Start Date End Date Tyler Benitez MD [address] [place] [address] PCP - General Family Medicine 06/06/20 Geo Rivera MD [address] [place] [phone] Referring Orthotics & Prosthetics 07/11/20 Team Status: Inactive Member Role Status Dates Dr. Tyler Benitez MD Primary Care Provider, Referring P murphy Active Jaquan Yarbrough [employer], [employer]-C Attending Provider Active Diabetes Manager Relationship Specialty Start Date End Date Tyler Benitez MD [address] [place] [address] PCP - General Family Medicine 06/06/20 Geo Rivera MD [address] [place] [address] Referring Orthotics & Prosthetics 07/11/20 Diabetes Manager Relationship Specialty Start Date End Date Tyler Benitez MD [address] [place] [address] PCP - General Family Medicine 06/06/20 Geo Rivera MD [address] [place] [address] Referring Orthotics & Prosthetics 07/11/20 Diabetes Manager Relationship Specialty Start Date End Date Tyler Benitez MD [address] [place] [address] PCP - General Family Medicine 06/06/20 Geo Rivera MD [address] [place] [address] Referring Orthotics & Prosthetics 07/11/20 Diabetes Manager Relationship Specialty Start Date End Date Tyler Benitez MD [address] [place] [address] PCP - General Family Medicine 06/06/20 Geo Rivera MD [address] [place] [address] Referring Orthotics & Prosthetics 07/11/20 Diabetes Manager Relationship Specialty Start Date End Date Tyler Benitez MD [address] [place] [address] PCP - General Family Medicine 06/06/20 Geo Rivera MD [address] [place] [address] Referring Orthotics & Prosthetics 07/11/20 Diabetes Manager Relationship Specialty Start Date End Date Tyler Benitez MD [address] [place] [address] PCP - General Family Medicine 06/06/20 Geo Rivera MD [address] [place], [place] [address] Referring Orthotics & Prosthetics 07/11/20 Diabetes Manager Relationship Specialty Start Date End Date Tyler Benitez MD [address] [place] [address] PCP - General Family Medicine 06/06/20 Geo Rivera MD [address] [place] [address] Referring Orthotics & Prosthetics 07/11/20 Diabetes Manager Relationship Specialty Start Date End Date Tyler Benitez MD [address] [place] [address] PCP - General Family Medicine 06/06/20 Geo Rivera MD [address] [place] [address] Referring Orthotics & Prosthetics 07/11/20 Diabetes Manager Relationship Specialty Start Date End Date Tyler Benitez MD [address] [place] [address] PCP - General Family Medicine 06/06/20 Geo Rivera MD [address] [place] [address] Referring Orthotics & Prosthetics 07/11/20 Diabetes Manager Relationship Specialty Start Date End Date Tyler Benitez MD [address] [address] PCP - General Family Medicine 06/06/20 Geo Rivera MD [address] [facility] [address] Referring Orthotics & Prosthetics 07/11/20 Diabetes Manager Relationship Specialty Start Date End Date Tyler Benitez MD [address] [facility] [place] [place] [address] PCP - General Family Medicine 06/06/20 Geo Rivera MD [address] [facility] [place] [address] Referring Orthotics & Prosthetics 07/11/20 Team Status: Active Member Role Status Dates Dr. Tyler Benitez MD Primary Care Provider Active Dr. Familia Smalls MD Emergency Provider Active Dr. Nata Rivers , Admit Provider, Attending Provider, Other Provider Active Team Status: Active Member Role Status Dates Dr. Tyler Benitez MD Primary Care Provider Active Dr. Familia Smalls MD Emergency Provider Active Dr. Nata Rivers DO Admit Provider, Other Provide r Active Dr. Armand Bob MD Attending Provider, Other Provid er Active Team Status: Active Member Role Status Dates Dr. Tyler Benitez MD Primary Care Provider Active Dr. Tyler Quintanilla MD Attending Provider Active Team Status: Inactive Member Role Status Dates Dr. Tyler Benitez MD Primary Care Provider Active Dr. Deann Kaur DO Attending Provider, Emergency Pro vider Active Team Status: Inactive Member Role Status Dates Dr. Tyler Benitez MD Primary Care Provider Active Dr. Familia Smalls MD Emergency Provider Active Dr. Nata Rivers DO Admit Provider, Other Provide r Active Dr. Armand Bob MD Attending Provider Active Team Status: Inactive Member Role Status Dates Dr. Tyler Benitez MD Primary Care Provider Active Dr. Kiko Pittman MD Attending Provider, Emergency Provi erich Active Team Status: Inactive Member Role Status Dates Dr. Tyler Benitez MD Primary Care Provider Active Ed Physician Provider Attending Provider, Emergency Pr ovider Active Team Status: Active Member Role Status Dates Dr. Tyler Benitez MD Primary Care Provider Active Dr. Kiko Pittman MD Emergency Provider Active Dr. Mariusz Waters MD Admit Provider, Attending Provi erich Active Team Status: Inactive Member Role Status Dates Dr. Tyler Benitez MD Primary Care Provider Active Dr. Peter Johnson DO Attending Provider, Emergency Provider Active Team Status: Active Member Role Status Dates Dr. Tyler Benitez MD Primary Care Provider Active Dr. Tyler Quintanilla MD Attending Provider Active Dr. Nata Rivers DO Referring Provider Active Team Status: Active Member Role Status Dates Dr. Tyler Benitez MD Primary Care Provider Active Dr. Kiko Pittman MD Emergency Provider Active Dr. Mariusz Waters MD Admit Provider, Other Provider Active Dr. Armand Bob MD Attending Provider, Other Provid er Active Team Status: Active Member Role Status Dates Dr. Tyler Benitez MD Primary Care Provider Active Dr. Mir Brumfield MD Attending Provider Active Team Status: Inactive Member Role Status Dates Dr. Tyler Benitez MD Primary Care Provider Active Dr. Kiko Pittman MD Emergency Provider Active Dr. Mariusz Waters MD Admit Provider, Other Provider Active Dr. Armand Bob MD Attending Provider Active Diabetes Manager Relationship Specialty Start Date End Date Tyler Benitez MD [address] [place], [place] [address] PCP - General Family Medicine 06/06/20 Geo Rivera MD [address] [place], [place] [address] Referring Orthotics & Prosthetics 07/11/20 Diabetes Manager Relationship Specialty Start Date End Date Tyler Benitez MD [address] [place], [place] [address] PCP - General Family Medicine 06/06/20 Geo Rivera MD [address] [place], [place] [address] Referring Orthotics & Prosthetics 07/11/20 Diabetes Manager Relationship Specialty Start Date End Date Tyler Benitez MD [address] [place], [place] [address] PCP - General Family Medicine 06/06/20 Geo Rivera MD [address] [place], [place] [address] Referring Orthotics & Prosthetics 07/11/20 Team Status: Active Member Role Status Dates Dr. Tyler Benitez MD Primary Care Provider Active Dr. Mir Brumfield MD Attending Provider Active Dr. Mariusz Waters MD Referring Provider Active Team Status: Inactive Member Role Status Dates Dr. Tyler Benitez MD Primary Care Provider Active Dr. Sage Augustin MD Emergency Provider Active Diabetes Manager Relationship Specialty Start Date End Date Tyler Benitez MD [address] [place], [place] [address] PCP - General Family Medicine 06/06/20 Geo Rivera MD [address] [place], [place] [address] Referring Orthotics & Prosthetics 07/11/20 Team Status: Inactive Member Role Status Dates Dr. Tyler Benitez MD Primary Care Provider Active Dr. Sage Augustin MD Attending Provider, Emergency Provider Active Team Status: Inactive Member Role Status Dates Dr. Tyler Benitez MD Primary Care Provider, Attending Francis arrington Active Diabetes Manager Relationship Specialty Start Date End Date Tyler Benitez MD [address] [place], [place] [address] PCP - General Family Medicine 06/06/20 Geo Rivera MD [address] [place] [address] Referring Orthotics & Prosthetics 07/11/20 Diabetes Manager Relationship Specialty Start Date End Date Tyler Benitez MD [address] [place] [address] PCP - General Family Medicine 06/06/20 Geo Rivera MD [address] [place] [address] Referring Orthotics & Prosthetics 07/11/20 Diabetes Manager Relationship Specialty Start Date End Date Tyler Benitez MD [address] [place] [address] PCP - General Family Medicine 06/06/20 Geo Rivera MD [address] [place] [address] Referring Orthotics & Prosthetics 07/11/20 Diabetes Manager Relationship Specialty Start Date End Date Tyler Benitez MD [address] [place] [address] PCP - General Family Medicine 06/06/20 Geo Rivera MD [address] [place] [address] Referring Orthotics & Prosthetics 07/11/20 Diabetes Manager Relationship Specialty Start Date End Date Tyler Benitez MD [address] [place] [address] PCP - General Family Medicine 06/06/20 Geo Rivera MD [address] [place] [address] Referring Orthotics & Prosthetics 07/11/20 Diabetes Manager Relationship Specialty Start Date End Date Tyler Benitez MD [address] [place] [address] PCP - General Family Medicine 06/06/20 Geo Rivera MD [address] [place] [address] Referring Orthotics & Prosthetics 07/11/20 Diabetes Manager Relationship Specialty Start Date End Date Tyler Benitez MD [address] [place] [address] PCP - General Family Medicine 06/06/20 Geo Rivera MD [address] [place] [address] Referring Orthotics & Prosthetics 07/11/20 Team Status: Inactive Member Role Status Dates Dr. Tyler Benitez MD Primary Care Provider, Referring P murphy Active Jimbo LAEXANDER, PA Attending Provider Active Diabetes Manager Relationship Specialty Start Date End Date Tyler Benitez MD [address] [place] [address] PCP - General Family Medicine 06/06/20 Geo Rivera MD [address] [place] [address] Referring Orthotics & Prosthetics 07/11/20 Diabetes Manager Relationship Specialty Start Date End Date Tyler Benitez MD [address] [place] [address] PCP - General Family Medicine 06/06/20 Geo Rivera MD [address] [place] [address] Referring Orthotics & Prosthetics 07/11/20 Diabetes Manager Relationship Specialty Start Date End Date Tyler Benitez MD [address] [place], [place] [address] PCP - General Family Medicine 06/06/20 Geo Rivera MD [address] [place], [place] [address] Referring Orthotics & Prosthetics 07/11/20 Diabetes Manager Relationship Specialty Start Date End Date Tyler Benitez MD [address] [place], [place] [address] PCP - General Family Medicine 06/06/20 Geo Rivera MD [address] [place], [place] [address] Referring Orthotics & Prosthetics 07/11/20 Diabetes Manager Relationship Specialty Start Date End Date Tyler Benitez MD [address] [place], [place] [address] PCP - General Family Medicine 06/06/20 Geo Rivera MD [address] [place], [place] [address] Referring Orthotics & Prosthetics 07/11/20 Team Status: Active Member Role Status Dates Dr. Tyler Benitez MD Primary Care Provider Active Team Status: Inactive Member Role Status Dates Dr. Tyler Benitez MD Primary Care Provider Active Start: July 14, 2024 End: July 14, 2024 Dr. Tyler Benitez MD Referring Provider Active St art: July 14, 2024 End: July 14, 2024 Alphonso Newell MD Attending Provider Active St art: July 14, 2024 End: July 14, 2024 Team Status: Inactive Member Role Status Dates Dr. Tyler Benitez MD Primary Care Provider Active Start: August 11, 2024 End: August 11, 2024 Dr. Tyler Benitez MD Referring Provider Active St art: August 11, 2024 End: August 11, 2024 Alphonso Newell MD Attending Provider Active St art: August 11, 2024 End: August 11, 2024 Team Status: Inactive Member Role Status Dates Dr. Tyler Benitez MD Primary Care Provider Active Start: August 11, 2024 End: August 11, 2024 Dr. Tyler Benitez MD Attending Provider Active St art: August 11, 2024 End: August 11, 2024 Dr. Tyler Benitez MD Referring Provider Active St art: August 11, 2024 End: August 11, 2024 Team Status: Inactive Member Role Status Dates Dr. Tyler Benitez MD Primary Care Provider Active Start: August 21, 2024 End: August 21, 2024 Dr. Tyler Benitez MD Referring Provider Active St art: August 21, 2024 End: August 21, 2024 Alphonso Newell MD Attending Provider Active St art: August 21, 2024 End: August 21, 2024 Team Status: Inactive Member Role Status Dates Dr. Tyler Benitez MD Primary Care Provider Active Start: August 27, 2024 End: August 27, 2024 Dr. Tyler Benitez MD Referring Provider Active St art: August 27, 2024 End: August 27, 2024 Alphonso Newell MD Attending Provider Active St art: August 27, 2024 End: August 27, 2024 Team Status: Inactive Member Role Status Dates Dr. Tyler Benitez MD Primary Care Provider Active Start: November 10, 2024 End: November 10, 2024 Dr. Brad Avalos DO Emergency Provider Active Start: November 10, 2024 End: November 10, 2024 Team Status: Active Member Role/Relationship Status Dates Dr. Tyler Benitez MD Primary Care Provider Active Team Status: Inactive Member Role/Relationship Status Dates Dr. Tyler Benitez MD Primary Care Provider Active Start: November 10, 2024 End: November 10, 2024 Dr. Brad Avalos DO Attending Provider Active Start: November 10, 2024 End: November 10, 2024 Dr. Brad Avalos DO Emergency Provider Active Start: November 10, 2024 End: November 10, 2024 Team Status: Inactive Member Role/Relationship Status Dates Dr. Tyler Benitez MD Primary Care Provider Active Start: February 19, 2025 End: February 19, 2025 Dr. Danial Cook MD Attending Provider Active Start: February 19, 2025 End: February 19, 2025 Dr. Danial Cook MD Referring Provider Active Start: February 19, 2025 End: February 19, 2025 Team Status: Inactive Member Role/Relationship Status Dates Dr. Tyler Benitez MD Primary Care Provider Active Start: March 02, 2025 End: March 02, 2025 Dr. Malaika Yuen DO Emergency Provider Active Start: March 02, 2025 End: March 02, 2025 Diabetes Manager Relationship Specialty Start Date End Date Tyler Benitez MD [address] [place] [address] PCP - General Family Medicine 06/06/20 Geo Rivera MD [address] [place] [address] Referring Orthotics & Prosthetics 07/11/20 Team Status: Inactive Member Role/Relationship Status Dates Dr. Tyler Benitez MD Primary Care Provider Active Start: February 19, 2025 End: February 19, 2025 Dr. Danial Cook MD Attending Provider Active Start: February 19, 2025 End: February 19, 2025 Dr. Danial Cook MD Referring Provider Active Start: February 19, 2025 End: February 19, 2025 Team Status: Inactive Member Role/Relationship Status Dates Dr. Tyler Benitez MD Primary Care Provider Active Start: March 02, 2025 End: March 02, 2025 Dr. Malaika Yuen DO Attending Provider Active Start: March 02, 2025 End: March 02, 2025 Dr. Malaika Yuen DO Emergency Provider Active Start: March 02, 2025 End: March 02, 2025 Team Status: Inactive Member Role/Relationship Status Dates Dr. Tyler Benitez MD Primary Care Provider Active Start: March 11, 2025 End: March 11, 2025 Dr. Tyler Benitez MD Attending Provider Active St art: March 11, 2025 End: March 11, 2025 Dr. Tyler Benitez MD Referring Provider Active St art: March 11, 2025 End: March 11, 2025 Team Status: Active Member Role/Relationship Status Dates Dr. Tyler Benitez MD Primary Care Provider Active Start: March 12, 2025 Dr. Demetrio Hinds MD Attending Provider Active S tart: March 12, 2025 Team Status: Active Member Role/Relationship Status Dates Dr. Tyler Benitez MD Primary Care Provider Active Start: March 12, 2025 Dr. Danial Cook MD Attending Provider Active Start: March 12, 2025 Dr. Danial Cook MD Referring Provider Active Start: March 12, 2025 Team Status: Inactive Member Role/Relationship Status Dates Dr. Tyler Benitez MD Primary Care Provider Active Start: March 12, 2025 End: March 12, 2025 Dr. Danial Cook MD Attending Provider Active Start: March 12, 2025 End: March 12, 2025 Dr. Danial Cook MD Referring Provider Active Start: March 12, 2025 End: March 12, 2025 Diabetes Manager Relationship Specialty Start Date End Date Tyler Benitez MD [address], [place] [address] PCP - General Family Medicine 06/06/20 Geo Rivera MD [address] [place] [address] Referring Orthotics & Prosthetics 07/11/20 Team Status: Inactive Member Role/Relationship Status Dates Dr. Tyler Benitez MD Primary Care Provider Active Start: May 03, 2025 End: May 03, 2025 Dr. Tyler Benitez MD Referring Provider Active St art: May 03, 2025 End: May 03, 2025 Dr. Danial Cook MD Attending Provider Active Start: May 03, 2025 End: May 03, 2025 Goals (unrecognized section and content) Goals [...] BE BASED ON THE PRIMARY CLINICAL RECORDS. [facility] provides no warranty or guarantee of the accuracy or completeness of information in this document.
[2025-06-16 21:14] LABS: Troponin T High Sensitivity 21 ng/L (<=14)
[2025-06-16 21:15] LABS: Magnesium 2.1 mg/dL (1.5-2.2); Pro- Brain NATRIURETIC PEPTIDE 1560 pg/mL (<=1800)
[2025-06-16 21:20] LABS: Mucous, Urine 0 SEEN /hpf (<or=2+)
[2025-06-16 21:36] LABS: Color, Urine Yellow (Yellow); Glucose, Dipstick Normal (Normal); Ketone-Dipstick Negative (Negative); Leukocyte Esterase-Dipstick Negative /ul (Negative); Nitrite-Dipstick Negative (Negative); Occult Blood-Urine 10 /ul (Negative); Protein-Dipstick 30 mg/dl (Negative); Specific Gravity, Urine 1.020 (1.002-1.030); Urine Bilirubin Dipstick Negative (Negative)
[2025-06-16 21:49] LABS: Anion Gap 11 (5-15); BUN 61 mg/dL (4-19); BUN/Creat Ratio 17.9 RATIO (10-20); Calcium,Total 8.2 mg/dL (7.6-11.0); Carbon Dioxide 22.8 mmol/L (21.0-32.0); Chloride 105 mmol/L (98-108); Glucose 91 mg/dL (70-99); Potassium 4.6 mmol/L (3.3-5.1)
[2025-06-16 21:59] LABS: Red Blood Cells-Urine 0-5 SEEN /hpf (0-5); Squamous Epithelial Cells - UA 0-5 SEEN /hpf (5-10)
[2025-06-16 22:00] VITALS: BP 100/44; PULSE 81; RESP 16; O2SAT 98
[2025-06-16 22:01] VITALS: BMI 36.6
[2025-06-16 22:36] VITALS: BP 100/44; PULSE 90; RESP 17; TEMP 36.8; O2SAT 94
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
--- NOTE | 2025-06-16 23:23 | US_ITS ---
PROCEDURE: KIDNEY AND BLADDER 06/16/2025 REASON FOR EXAM: VICTORINO; IN THE SETTING OF CKD; STAGE IIIB TECHNIQUE: Procedure Code: USKI Modality: US Procedure: KIDNEY AND BLADDER COMPARISON: None FINDINGS: The right kidney measures 9.9 x 4 x 4.5 cm. Cortex measures 1.3 cm. No hydronephrosis. No mass. As per image left renal lower pole cortical echogenic focus could suggest a calcification versus stone Left kidney measures 9.6 x 3.9 x 4.3 cm. Cortex measures 1 cm. No hydronephrosis. No stones. No mass. The urinary bladder measures 125 cc. The wall measures 3 mm. Jets are not visualized. No obvious stones. US/Kidney and Bladder IMPRESSION: Right renal cortical echogenic focus could suggest calcification versus a stone . Please correlate with CT as clinically warranted. Reading Location[facility]
--- OUTSIDE RECORDS SUMMARY | 2025-06-16 23:32 | XMS RPT_ITS | CCD ---
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 Date: 03/02/25Order Info: 07 - CMPOrder Info: 3015-3 - TSH Performed By: #### L 500.4050, L100.0100, L501.9520 ####[facility] [address] [place], [address] Calcium [Mass/Vol] 9.7 mg/dL Normal 7.6-11.0 [facility] Comment on above: Order Comment: Order Date: 03/02/25Order Info: 0786- - CMPOrder Info: 6-3 - TSH Performed By: #### L 500.4050, L100.0100, L501.9520 ####[facility] [address] [place], [address] Chloride [Moles/Vol] 101 mmol/L Normal 98-108 [facility] Comment on above: Order Comment: Order Date: 03/02/25Order Info: 785- - CMPOrder Info: 3015-3 - TSH Performed By: #### L 500.4050, L100.0100, L501.9520 ####[facility] [address] [place], [address] CO2 [Moles/Vol] 28.1 mmol/L Normal 21.0-32.0 [facility] Comment on above: Order Comment: Order Date: 03/02/25Order Info: 785-08 - CMPOrder Info: 3015-3 - TSH Performed By: #### L 500.4050, L100.0100, L501.9520 ####[facility] [address] [place], [address] Creatinine [Mass/Vol] 1.76 mg/dL High 0.70-1.20 [facility] Comment on above: Order Comment: Order Date: 03/02/25Order Info: 785- - CMPOrder Info: 3015-3 - TSH Performed By: #### L 500.4050, L100.0100, L501.9520 ####[facility] [address] [place], [address] GAP 10 Normal 5-15 [facility] Comment on above: Order Comment: Order Date: 03/02/25Order Info: 07-1 - CMPOrder Info: 6-3 - TSH Performed By: #### L 500.4050, L100.0100, L501.9520 ####[facility] [address] [place], [address] GFR/1.73 sq M.predicted among non-blacks MDRD (S/P/Bld) [Vol rate/Area] 28 mL/min/{1.73_m2} Low >60 [facility] Comment on above: Order Comment: Order Date: 03/02/25Order Info: 0786-1 - CMPOrder Info: 3015-3 - TSH Result Comment: mL/m in/1.73m2 CKD-EPI Creatinine Equation (2020) Performed By: #### L 500.4050, L100.0100, L501.9520 ####[facility] [address] [place], [address] Globulin (S) [Mass/Vol] 3.7 g/dL Normal 2.2-4.[address] [facility] Comment on above: Order Comment: Order Date: 03/02/25Order Info: 0786- - CMPOrder Info: 3015-10 - TSH Performed By: #### L 500.4050, L100.0100, L501.9520 ####[facility] [address] [place], [address] Glucose [Mass/Vol] 84 mg/dL Normal 70-99 [facility] Comment on above: Order Comment: Order Date: 03/02/25Order Info: 0786-1 - CMPOrder Info: 3 - TSH Performed By: #### L 500.4050, L100.0100, L501.9520 ####[facility] [address] [place], [address] Potassium [Moles/Vol] 4.4 mmol/L Normal 3.3-5.1 [facility] Comment on above: Order Comment: Order Date: 03/02/25Order Info: 0786-1 - CMPOrder Info: 3 - TSH Performed By: #### L 500.4050, L100.0100, L501.9520 ####[facility] [address] [place], [address] Sodium [Moles/Vol] 140 mmol/L Normal 133-145 [facility] Comment on above: Order Comment: Order Date: 03/02/25Order Info: 0786-1 - CMPOrder Info: 3016-3 - TSH Performed By: #### L 500.4050, L100.0100, L501.9520 ####[facility] [address] [place], [address] T PROT 7.4 g/dL Normal 5.9-8.4 [facility] Comment on above: Order Comment: Order Date: 03/02/25Order Info: 0786-1 - CMPOrder Info: 3016-3 - TSH Performed By: #### L 500.4050, L100.0100, L501.9520 ####[facility] [address] [place], [address] Urea nitrogen [Mass/Vol] 38 mg/dL High 4-19 [facility] Comment on above: Order Comment: Order Date: 03/02/25Order Info: 0786-1 - CMPOrder Info: 3016-3 - TSH Performed By: #### L 500.4050, L100.0100, L501.9520 ####[facility] [address] [place], [address] Eosinophil percentageOrdered By: Tyler Benitez on 03-11-2025 Eosinophils/100 WBC (Bld) 1.7 % 0-5 [facility] Erythrocyte distribution wid th ratioOrdered By: Tyler Benitez on 03-11-2025 Erythrocyte distribution width (RBC) [Ratio] 13.8 % 11.6-14.6 [facility] Erythrocyte distribution wid th standard deviationOrdered By: Tyler Benitez on 03-11-2025 Erythrocyte distribution width (RBC) [Ratio] 45.3 fl High 35.1-43.9 [facility] Glomerular filtration rate ( GFR) estimation/1.73 sq m using serum, plasma, or whole bOrdered By: Tyler Benitez on 03-11-2025 GFR/1.73 sq M.predicted among non-blacks MDRD (S/P/Bld) [Vol rate/Area] 28 mL/min/{1.73_m2} Low >60 [facility] Comment on above: mL/min/1.73m2 CKD-EP I Creatinine Equation (2020) Hematocrit Auto (Bld) [Volum e fraction]Ordered By: Tyler Benitez on 03-11-2025 Hematocrit (Bld) [Volume fraction] 37.3 % 37-47 [facility] Hemoglobin measurementOrdere d By: Tyler Benitez on 03-11-2025 Hemoglobin (Bld) [Mass/Vol] 11.7 g/dL Low 12.0-15.0 [facility] Immature granulocytes/100 WB C Auto (Bld)Ordered By: Tyler Benitez on 03-11-2025 Immature granulocytes/100 WBC (Bld) 0.300 % 0.0-0.9 [facility] Comment on above: IG% - Immature Granu locytes (promyelocytes, myelocytes and metamyelocytes) > 1% indicates that a LEFT SHIFT is Present. L503.7505on 03-11-2025 Natriuretic peptide B (Bld) [Mass/Vol] 1089 pg/mL Normal <=1800 [facility] Comment on above: Order Comment: Order Date: 03/02/25 Order Info: 0786-1 - CMP Order Info: 3016-3 - TSH Result Comment: Hear t Failure Unlikely: < 300 pg/mL Heart Failure Likely < 50 Years: > 450 pg/mL 50-75 Years: > 900 pg/mL >75 Years: > 1800 pg/mL Performed By: #### L 503.7505 #### [facility] [address] [place] [address], [id number] Laboratory - Chemistry and C hemistry - challengeOrdered By: Tyler Benitez on 03-11-2025 AST [Catalytic activity/Vol] 20 U/L <32 [facility] MCV (mean corpuscular volume ) determinationOrdered By: Tyler Benitez on 03-11-2025 MCV (RBC) [Entitic vol] 90.1 fL 81-99 [facility] Mean corpuscular hemoglobin (MCH) determinationOrdered By: Tyler Benitez on 03-11-2025 MCH (RBC) [Entitic mass] 28.3 pg 27.0-32.0 [facility] Mean corpuscular hemoglobin concentration (MCHC) determinationOrdered By: Tyelr Benitez on 03-11-2025 MCHC (RBC) [Mass/Vol] 31.4 g/dL Low 32-36 [facility] Mean platelet volume determi nationOrdered By: Tyler Benitez on 03-11-2025 Platelet mean volume (Bld) [Entitic vol] 10.4 fL 6.2-12.0 [facility] Monocyte percentageOrdered B y: Tyler Benitez on 03-11-2025 Monocytes/100 WBC (Bld) 9.1 % 0-10 [facility] Natriuretic peptide.B prohor nathan N-Terminal [Mass/volume] in Serum or PlasmaOrdered By: Tyler Benitez on 03-11-2025 Natriuretic peptide.B prohormone N-Terminal [Mass/Vol] 1089 pg/mL <1800 [facility] Comment on above: Heart Failure Unlike ly: < 300 pg/mLHeart Failure Likely< 50 Years: > 450 pg/mL50-75 Years: > 900 pg/mL>75 Years: > 1800 pg/mL Neutrophil percentageOrdered By: Tyler Benitez on 03-11-2025 Neutrophils/100 WBC (Bld) 72.9 % High 47-70 [facility] Nucleated red blood cell per centageOrdered By: Tyler Benitez on 03-11-2025 Nucleated RBC/100 WBC (Bld) [Ratio] 0 % 0-5 [facility] Platelet countOrdered By: Silvio Benitez on 03-11-2025 Platelets (Bld) [#/Vol] 202 10*3/uL 150-450 [facility] Potassium measurement (mass/ volume)Ordered By: Tyler Benitez on 03-11-2025 Potassium (Unsp spec) [Mass/Vol] 4.4 mmol/L 3.3-5.1 [facility] RBC Auto (Bld) [#/Vol]Ordere d By: Tyler Benitez on 03-11-2025 RBC (Bld) [#/Vol] 4.14 10*6/uL Low 4.2-5.4 [facility] Serum creatinine measurement (mass/volume)Ordered By: Tyler Benitez on 03-11-2025 Creatinine [Mass/Vol] 1.76 mg/dL High 0.70-1.20 [facility] Serum globulin measurementOr dered By: Tyler Benitez on 03-11-2025 Globulin (S) [Mass/Vol] 3.7 g/dL 2.2-4.[address] [facility] Serum glucose measurement (m ass/volume)Ordered By: Tyler Benitez on 03-11-2025 Glucose [Mass/Vol] 84 mg/dL 70-99 [facility] Serum or plasma alanine welch otransferase (ALT) measurementOrdered By: Tyler Benitez on 03-11-2025 ALT [Catalytic activity/Vol] 8 U/L <35 [facility] Serum or plasma albumin lakeisha urement (mass/volume)Ordered By: Tyler Benitez on 03-11-2025 Albumin [Mass/Vol] 3.7 g/dL 3.4-4.8 [facility] Serum or plasma albumin/glob ulin mass ratioOrdered By: Tyler Benitez on 03-11-2025 Albumin/Globulin [Mass ratio] 1.0 {ratio} 0.9-2.4 [facility] Serum or plasma alkaline vania sphatase measurementOrdered By: Tyler Benitez on 03-11-2025 ALP [Catalytic activity/Vol] 91 U/L 35-104 [facility] Serum or plasma calcium lakeisha urement (mass/volume)Ordered By: Tyler Benitez on 03-11-2025 Calcium [Mass/Vol] 9.7 mg/dL 7.6-11.0 [facility] Serum or plasma urea nitroge n measurement (mass/volume)Ordered By: Tyler Benitez on 03-11-2025 Urea nitrogen [Mass/Vol] 38 mg/dL High 4-19 [facility] Sodium levelOrdered By: Tyler Benitez on 03-11-2025 Sodium [Moles/Vol] 140 mmol/L 133-145 [facility] TSH DL <= 0.005 mIU/L QnOrde red By: Tyler Benitez on 03-11-2025 TSH Qn 2.920 uIU/mL 0.300-4.20 0 [facility] Thyroid Stim Hormone (TSH)on 03-11-2025 TSH 2.920 uIU/mL Normal 0.300-4.20 0 [facility] Comment on above: Order Comment: Order Date: 03/02/25Order Info: 0786-1 - CMPOrder Info: 3016-3 - TSH Performed By: #### L 500.4050, L100.0100, L501.9520 ####[facility] [address] [place], [place], [id number] Total proteinOrdered By: Reyna Benitez on 03-11-2025 Protein [Mass/Vol] 7.4 g/dL 5.9-8.4 [facility] White blood cell (WBC) count Ordered By: Tyler Benitez on 03-11-2025 WBC (Bld) [#/Vol] 6.6 10*3/uL 4.4-11.0 [facility] Absolute lymphocyte countOrd ered By: Malaika Yuen on 03-02-2025 Lymphocytes Auto (Unsp spec) [#/Vol] 0.91 10*3/uL 0.83-4.51 [facility] Absolute neutrophil countOrd ered By: Malaika Yuen on 03-02-2025 Neutrophils (Bld) [#/Vol] 3.8 10*3/uL 2.0-7.7 [facility] Anion gap in Serum or Plasma Ordered By: Malaika Yuen on 03-02-2025 Anion gap [Moles/Vol] 12 mmol/L 5-15 [facility] Automated blood erythrocyte countOrdered By: Malaika Yuen on 03-02-2025 RBC (Bld) [#/Vol] 3.80 10*6/uL Low 4.2-5.4 [facility] Comment on above: Performed By: #### L 100.0100, L500.2500, L503.7505 #### [facility] [address] [place], [place], [address] Automated blood hematocrit ( percentage)Ordered By: Malaika Yuen on 03-02-2025 Hematocrit (Bld) [Volume fraction] 34.3 % Low 37-47 [facility] Comment on above: Performed By: #### L 100.0100, L500.2500, L503.7505 #### [facility] [address] [place], [address] Automated lymphocyte count a s percentage of total leukocytesOrdered By: Malaika uYen on 03-02-2025 Lymphocytes/100 WBC Auto (Unsp spec) 17.0 % Low 19-41 [facility] BUN/creatinine ratioOrdered By: Malaika Yuen on 03-02-2025 Urea nitrogen/Creatinine [Mass ratio] 26.5 mg/mg High 10-20 [facility] Basic Metabolic Profile (BMP )on 03-02-2025 BUN/CRE 26.5 RATIO High 10-20 [facility] Comment on above: Performed By: #### L 100.0100, L500.2500, L503.7505 #### [facility] [address] [place], [address] ECRCL 27.62 ml/min Low 50-250 [facility] Comment on above: Performed By: #### L 100.0100, L500.2500, L503.7505 #### [facility] [address] [place], [address] GAP 12 Normal 5-15 [facility] Comment on above: Performed By: #### L 100.0100, L500.2500, L503.7505 #### [facility] [address] [place], [address] Potassium [Moles/Vol] 4.8 mmol/L Normal 3.3-5.1 [facility] Comment on above: Performed By: #### L 100.0100, L500.2500, L503.7505 #### [facility] [address] [place], [address] Basophil percentageOrdered B y: Malaika Yuen on 03-02-2025 Basophils/100 WBC (Bld) 0.6 % Normal 0-1 [facility] Comment on above: Performed By: #### L 100.0100, L500.2500, L503.7505 #### [facility] [address] [place], [address] CBC W/Diff, Automatedon 07-0 8-5 Absolute Lymph 0.91 X10 3/uL Normal 0.83-4.51 [facility] Comment on above: Performed By: #### L 100.0100, L500.2500, L503.7505 #### [facility] [address] [place], [address] Absolute Neut 3.8 X10 3/uL Normal 2.0-7.7 [facility] Comment on above: Performed By: #### L 100.0100, L500.2500, L503.7505 #### [facility] [address] [place], [address] IG% 0.400 Normal 0.0-0.9 [facility] Comment on above: Result Comment: IG% - Immature Granulocytes (promyelocytes, myelocytes and metamyelocytes) > 1% indicates that a LEFT SHIFT is Present. Performed By: #### L 100.0100, L500.2500, L503.7505 #### [facility] [address] [place], [address] Lymphocytes/100 WBC (Bld) 17.0 % Low 19-41 [facility] Comment on above: Performed By: #### L 100.0100, L500.2500, L503.7505 #### [facility] [address] [place], [address] Nucleated RBC (Bld) [#/Vol] 0 10*3/uL Normal 0-5 [facility] Comment on above: Performed By: #### L 100.0100, L500.2500, L503.7505 #### [facility] [address] [place], [address] RDW SD 45.3 fl High 35.1-43.9 [facility] Comment on above: Performed By: #### L 100.0100, L500.2500, L503.7505 #### [facility] [address] [place], [address] Carbon dioxide, total [Moles /volume] in Central venous bloodOrdered By: Malaika Yuen on 03-02-2025 CO2 [Moles/Vol] 21.4 mmol/L Normal 21.0-32.0 [facility] Comment on above: Performed By: #### L 100.0100, L500.2500, L503.7505 #### [facility] [address] [place], [address] Chest PA and Lateralon 03-02 Chest PA and Lateral [facility] [address] [place] [address] Chest PA and Lateral MR#: [id number] Acct: [id number] Name: AMBER KOROMA Rep #: [id number] : 1940 F 84 From: Nata Lazo MD PCP: Dr. Tyler Benitez MD Status: [facility] ER Study: Chest PA and Lateral Date of Exam: 03/02/25 Exam# [id number] Ordering Dr: Malaika Yuen DO EXAM: XR Chest, 2 Views CLINICAL INDICATION: SOB TECHNIQUE: Frontal and lateral views of the chest. COMPARISON: No relevant prior studies available. FINDINGS: LUNGS AND PLEURAL SPACES: See below. HEART: Cardiomegaly with mild congestion. MEDIASTINUM: Unremarkable. Normal mediastinal contour. BONES/JOINTS: Unremarkable. No acute fracture. RAD/Chest PA and Lateral IMPRESSION: Cardiomegaly with mild congestion. Reading [facility] CC: Dr. Malaika Yuen DO; Dr. Tyler Benitez MD Molded Candles Wicker: Signed Normal [facility] Chloride assayOrdered By: Dylan Yuen on 03-02-2025 Chloride [Moles/Vol] 105 mmol/L Normal 98-108 [facility] Comment on above: Performed By: #### L 100.0100, L500.2500, L503.7505 #### [facility] [address] [place], [address] Emergency Department Summary on 03-02-2025 Emergency Department Summary [facility] Medical Records Department [address] [place] [address] Emergency Department Summary 03/02/25 MR#: [id number] Acct: [id number] Name: AMBER KOROMA Rep #: [id number] : 1940 84 From: Malaika Yuen DO [...] weeks ago which was negative for DVT. 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 Normal [facility] Eosinophil percentageOrdered By: Malaika Yuen on 03-02-2025 Eosinophils/100 WBC (Bld) 2.6 % Normal 0-5 [facility] Comment on above: Performed By: #### L 100.0100, L500.2500, L503.7505 #### [facility] [address] [place], [place], [address] Erythrocyte distribution wid th ratioOrdered By: Malaika Yuen on 03-02-2025 Erythrocyte distribution width (RBC) [Ratio] 13.8 % Normal 11.6-14.6 [facility] Comment on above: Performed By: #### L 100.0100, L500.2500, L503.7505 #### [facility] [address] [place], [address] Erythrocyte distribution wid th standard deviationOrdered By: Malaika Yuen on 03-02-2025 Erythrocyte distribution width (RBC) [Ratio] 45.3 fl High 35.1-43.9 [facility] Glomerular filtration rate ( GFR) estimation/1.73 sq m using serum, plasma, or whole bOrdered By: Malaika Yuen on 03-02-2025 GFR/1.73 sq M.predicted among non-blacks MDRD (S/P/Bld) [Vol rate/Area] 36 mL/min/{1.73_m2} Low >60 [facility] Comment on above: mL/min/1.73m2 CKD-EP I Creatinine Equation (2020) Result Comment: mL/m in/1.73m2 CKD-EPI Creatinine Equation (2020) Performed By: #### L 100.0100, L500.2500, L503.7505 #### [facility] [address] [place], [place], [id number] Hemoglobin measurementOrdere d By: Malaika Yuen on 03-02-2025 Hemoglobin (Bld) [Mass/Vol] 10.9 g/dL Low 12.0-15.0 [facility] Comment on above: Performed By: #### L 100.0100, L500.2500, L503.7505 #### [facility] [address] [place], [address] Immature granulocytes/100 WB C Auto (Bld)Ordered By: Malaika Yuen on 03-02-2025 Immature granulocytes/100 WBC (Bld) 0.400 % 0.0-0.9 [facility] Comment on above: IG% - Immature Granu locytes (promyelocytes, myelocytes and metamyelocytes) > 1% indicates that a LEFT SHIFT is Present. L503.7505on 03-02-2025 Natriuretic peptide B (Bld) [Mass/Vol] 900 pg/mL Normal <=1800 [facility] Comment on above: Result Comment: Hear t Failure Unlikely: < 300 pg/mL Heart Failure Likely < 50 Years: > 450 pg/mL 50-75 Years: > 900 pg/mL >75 Years: > 1800 pg/mL Performed By: #### L 503.7505 ####[facility] [address] [facility] [place], [address] MCV (mean corpuscular volume ) determinationOrdered By: Malaika Yuen on 03-02-2025 MCV (RBC) [Entitic vol] 90.3 fL Normal 81-99 [facility] Comment on above: Performed By: #### L 100.0100, L500.2500, L503.7505 #### [facility] [address] [place], [address] Mean corpuscular hemoglobin (MCH) determinationOrdered By: Malaika Yuen on 03-02-2025 MCH (RBC) [Entitic mass] 28.7 pg Normal 27.0-32.0 [facility] Comment on above: Performed By: #### L 100.0100, L500.2500, L503.7505 #### [facility] [address] [place], [address] Mean corpuscular hemoglobin concentration (MCHC) determinationOrdered By: Malaika Yuen on 03-02-2025 MCHC (RBC) [Mass/Vol] 31.8 g/dL Low 32-36 [facility] Comment on above: Performed By: #### L 100.0100, L500.2500, L503.7505 #### [facility] [address] [place], [address] Mean platelet volume determi nationOrdered By: Malaika Yuen on 03-02-2025 Platelet mean volume (Bld) [Entitic vol] 10.4 fL Normal 6.2-12.0 [facility] Comment on above: Performed By: #### L 100.0100, L500.2500, L503.7505 #### [facility] [address] [place], [address] Monocyte percentageOrdered B y: Malaika Yuen on 03-02-2025 Monocytes/100 WBC (Bld) 9.2 % Normal 0-10 [facility] Comment on above: Performed By: #### L 100.0100, L500.2500, L503.7505 #### [facility] [address] [place], [address] Natriuretic peptide.B prohor nathan N-Terminal [Mass/volume] in Serum or PlasmaOrdered By: Malaika Yuen on 03-02-2025 Natriuretic peptide.B prohormone N-Terminal [Mass/Vol] 900 pg/mL <1800 [facility] Comment on above: Heart Failure Unlike ly: < 300 pg/mLHeart Failure Likely< 50 Years: > 450 pg/mL50-75 Years: > 900 pg/mL>75 Years: > 1800 pg/mL Neutrophil percentageOrdered By: Malaika Yuen on 03-02-2025 Neutrophils/100 WBC (Bld) 70.2 % High 47-70 [facility] Comment on above: Performed By: #### L 100.0100, L500.2500, L503.7505 #### [facility] [address] [place], [address] Nucleated red blood cell per centageOrdered By: Malaika Yuen on 03-02-2025 Nucleated RBC/100 WBC (Bld) [Ratio] 0 % 0-5 [facility] Platelet countOrdered By: Dylan Yuen on 03-02-2025 Platelets (Bld) [#/Vol] 166 10*3/uL Normal 150-450 [facility] Comment on above: Performed By: #### L 100.0100, L500.2500, L503.7505 #### [facility] [address] [place], [address] Potassium measurement (mass/ volume)Ordered By: Malaika Yuen on 03-02-2025 Potassium (Unsp spec) [Mass/Vol] 4.8 mmol/L 3.3-5.1 [facility] Serum creatinine measurement (mass/volume)Ordered By: Malaika Yuen on 03-02-2025 Creatinine [Mass/Vol] 1.41 mg/dL High 0.70-1.20 [facility] Comment on above: Performed By: #### L 100.0100, L500.2500, [id number] #### [facility] [address] [place], [address] Serum glucose measurement (m ass/volume)Ordered By: Malaika Yuen on 03-02-2025 Glucose [Mass/Vol] 96 mg/dL Normal 70-99 [facility] Comment on above: Performed By: #### L 100.0100, L500.2500, L503.7505 #### [facility] [address] [place], [address] Serum or plasma calcium lakeisha urement (mass/volume)Ordered By: Malaika Yuen on 03-02-2025 Calcium [Mass/Vol] 9.4 mg/dL Normal 7.6-11.0 [facility] Comment on above: Performed By: #### L 100.0100, L500.2500, L503.7505 #### [facility] [address] [place], [address] Serum or plasma urea nitroge n measurement (mass/volume)Ordered By: Malaika Yuen on 03-02-2025 Urea nitrogen [Mass/Vol] 37 mg/dL High 4-19 [facility] Comment on above: Performed By: #### L 100.0100, L500.2500, L503.7505 #### [facility] [address] [place], [address] Sodium levelOrdered By: Ivelisse Yuen on 03-02-2025 Sodium [Moles/Vol] 139 mmol/L Normal 133-145 [facility] Comment on above: Performed By: #### L 100.0100, L500.2500, L503.7505 #### [facility] [address] [place], [address] White blood cell (WBC) count Ordered By: Malaika Yuen on 03-02-2025 WBC (Bld) [#/Vol] 5.4 10*3/uL Normal 4.4-11.0 [facility] Comment on above: Performed By: #### L 100.0100, L500.2500, L503.7505 #### [facility] [address] [place], [address] Absolute lymphocyte countOrd ered By: Danial Cook on 02-19-2025 Lymphocytes Auto (Unsp spec) [#/Vol] 0.98 10*3/uL 0.83-4.51 [facility] Absolute neutrophil countOrd ered By: Danial Cook on 02-19-2025 Neutrophils (Bld) [#/Vol] 4.8 10*3/uL 2.0-7.7 [facility] Anion gap in Serum or Plasma Ordered By: Danial Cook on 02-19-2025 Anion gap [Moles/Vol] 11 mmol/L 5- [facility] Automated lymphocyte count a s percentage of total leukocytesOrdered By: Danial Cook on 02-19-2025 Lymphocytes/100 WBC Auto (Unsp spec) 14.2 % Low - [facility] BUN/creatinine ratioOrdered By: Danial Cook on 02-19-2025 Urea nitrogen/Creatinine [Mass ratio] 18.3 mg/mg - [facility] Basic Metabolic Profile (BMP )on 02-19-2025 BUN/CRE 18.3 RATIO Normal - [facility] Comment on above: Performed By: #### L 100.0100, L500.2500, L503.7505 #### [facility] [address] [place], [address] Calcium [Mass/Vol] 9.3 mg/dL Normal 7.6-11.0 [facility] Comment on above: Performed By: #### L 100.0100, L500.2500, L503.7505 #### [facility] [address] [place], [address] Chloride [Moles/Vol] 100 mmol/L Normal 98-108 [facility] Comment on above: Performed By: #### L 100.0100, L500.2500, L503.7505 #### [facility] [address] [place], [address] CO2 [Moles/Vol] 28.2 mmol/L Normal 21.0-32.0 [facility] Comment on above: Performed By: #### L 100.0100, L500.2500, L503.7505 #### [facility] [address] [place], [address] Creatinine [Mass/Vol] 1.84 mg/dL High 0.70-1.20 [facility] Comment on above: Performed By: #### L 100.0100, L500.2500, L503.7505 #### [facility] [address] [place], [address] GAP 11 Normal 5-15 [facility] Comment on above: Performed By: #### L 100.0100, L500.2500, L503.7505 #### [facility] [address] [place], [address] GFR/1.73 sq M.predicted among non-blacks MDRD (S/P/Bld) [Vol rate/Area] 26 mL/min/{1.73_m2} Low >60 [facility] Comment on above: Result Comment: mL/m in/1.73m2 CKD-EPI Creatinine Equation (2020) Performed By: #### L 100.0100, L500.2500, L503.7505 #### [facility] [address] [place], [address] Glucose [Mass/Vol] 81 mg/dL Normal 70-99 [facility] Comment on above: Performed By: #### L 100.0100, L500.2500, L503.7505 #### [facility] [address] [place], [address] Potassium [Moles/Vol] 3.7 mmol/L Normal 3.3-5.1 [facility] Comment on above: Performed By: #### L 100.0100, L500.2500, L503.7505 #### [facility] [address] [place], [address] Sodium [Moles/Vol] 139 mmol/L Normal 133-145 [facility] Comment on above: Performed By: #### L 100.0100, L500.2500, L503.7505 #### [facility] [address] [place], [address] Urea nitrogen [Mass/Vol] 34 mg/dL High 4-19 [facility] Comment on above: Performed By: #### L 100.0100, L500.2500, L503.7505 #### [facility] [address] [place], [address] Basophil percentageOrdered B y: Danial Cook on 02-19-2025 Basophils/100 WBC (Bld) 1.0 % 0-1 [facility] CBC W/Diff, Automatedon 01-25 Absolute Lymph 0.98 X10 3/uL Normal 0.83-4.51 [facility] Comment on above: Performed By: #### L 100.0100, L500.2500, L503.7505 #### [facility] [address] [place], [address] Absolute Neut 4.8 X10 3/uL Normal 2.0-7.7 [facility] Comment on above: Performed By: #### L 100.0100, L500.2500, L503.7505 #### [facility] [address] [place], [address] Basophils/100 WBC (Bld) 1.0 % Normal 0-1 [facility] Comment on above: Performed By: #### L 100.0100, L500.2500, L503.7505 #### [facility] [address] [place], [address] Eosinophils/100 WBC (Bld) 2.6 % Normal 0-5 [facility] Comment on above: Performed By: #### L 100.0100, L500.2500, L503.7505 #### [facility] [address] [place], [address] Erythrocyte distribution width (RBC) [Ratio] 14.2 % Normal 11.6-14.6 [facility] Comment on above: Performed By: #### L 100.0100, L500.2500, L503.7505 #### [facility] [address] [place], [address] Hematocrit (Bld) [Volume fraction] 36.7 % Low 37-47 [facility] Comment on above: Performed By: #### L 100.0100, L500.2500, L503.7505 #### [facility] [address] [place], [address] Hemoglobin (Bld) [Mass/Vol] 11.6 g/dL Low 12.0-15.0 [facility] Comment on above: Performed By: #### L 100.0100, L500.2500, L503.7505 #### [facility] [address] [place], [address] IG% 0.600 Normal 0.0-0.9 [facility] Comment on above: Result Comment: IG% - Immature Granulocytes (promyelocytes, myelocytes and metamyelocytes) > 1% indicates that a LEFT SHIFT is Present. Performed By: #### L 100.0100, L500.2500, L503.7505 #### [facility] [address] [place], [address] Lymphocytes/100 WBC (Bld) 14.2 % Low 19-41 [facility] Comment on above: Performed By: #### L 100.0100, L500.2500, L503.7505 #### [facility] [address] [place], [address] MCH (RBC) [Entitic mass] 28.3 pg Normal 27.0-32.0 [facility] Comment on above: Performed By: #### L 100.0100, L500.2500, L503.7505 #### [facility] [address] [place], [address] MCHC (RBC) [Mass/Vol] 31.6 g/dL Low 32-36 [facility] Comment on above: Performed By: #### L 100.0100, L500.2500, L503.7505 #### [facility] [address] [place], [address] MCV (RBC) [Entitic vol] 89.5 fL Normal 81-99 [facility] Comment on above: Performed By: #### L 100.0100, L500.2500, L503.7505 #### [facility] [address] [place], [address] Monocytes/100 WBC (Bld) 11.6 % High 0-[address] [facility] Comment on above: Performed By: #### L 100.0100, L500.2500, L503.7505 #### [facility] [address] [place], [address] Neutrophils/100 WBC (Bld) 70.0 % Normal 47-70 [facility] Comment on above: Performed By: #### L 100.0100, L500.2500, L503.7505 #### [facility] [address] [place], [address] Nucleated RBC (Bld) [#/Vol] 0 10*3/uL Normal 0-5 [facility] Comment on above: Performed By: #### L 100.0100, L500.2500, L503.7505 #### [facility] [address] [place], [address] Platelet mean volume (Bld) [Entitic vol] 10.1 fL Normal 6.2-12.0 [facility] Comment on above: Performed By: #### L 100.0100, L500.2500, L503.7505 #### [facility] [address] [place], [address] Platelets (Bld) [#/Vol] 261 10*3/uL Normal 150-450 [facility] Comment on above: Performed By: #### L 100.0100, L500.2500, L503.7505 #### [facility] [address] [place], [address] RBC (Bld) [#/Vol] 4.10 10*6/uL Low 4.2-5.4 [facility] Comment on above: Performed By: #### L 100.0100, L500.2500, L503.7505 #### [facility] [address] [place], [address] RDW SD 46.7 fl High 35.1-43.9 [facility] Comment on above: Performed By: #### L 100.0100, L500.2500, L503.7505 #### [facility] [address] [place], [address] WBC (Bld) [#/Vol] 6.9 10*3/uL Normal 4.4-11.0 [facility] Comment on above: Performed By: #### L 100.0100, L500.2500, L503.7505 #### [facility] [address] [place], [address] [facility] (PTWS) AMBER KOROMA ([id number]) 1940 F Date Time Provider Department 02/19/25 [facility] PTWS During your visit today, we recorded the following information about you: Danna Hernandez 02/19/2025 9:20 AM Signed [facility] stating they received an order for PT from [facility].However, he states the order needs to be for Occupational Therapy to be able to go through them. Their fax number is [phone]. Please review and advise. Danna Hernandez February [...] Endometrial cancer [C54.1] 03/19/2011 Cyst in hand [[id number]] 08/02/2011 Personal history of malignant neoplasm of [...] Status:Closed by MORRIS LO on 02/19/25 Normal [facility] Carbon dioxide, total [Moles /volume] in Central venous bloodOrdered By: Danial Cook on 02-19-2025 CO2 [Moles/Vol] 28.2 mmol/L 21.0-32.0 [facility] Chloride assayOrdered By: Elizabet Cook on 02-19-2025 Chloride [Moles/Vol] 100 mmol/L 98-108 [facility] Eosinophil percentageOrdered By: Danial Cook on 02-19-2025 Eosinophils/100 WBC (Bld) 2.6 % 0-5 [facility] Erythrocyte distribution wid th ratioOrdered By: Danial Cook on 02-19-2025 Erythrocyte distribution width (RBC) [Ratio] 14.2 % 11.6-14.6 [facility] Erythrocyte distribution wid th standard deviationOrdered By: Danial Cook on 02-19-2025 Erythrocyte distribution width (RBC) [Ratio] 46.7 fl High 35.1-43.9 [facility] Glomerular filtration rate ( GFR) estimation/1.73 sq m using serum, plasma, or whole bOrdered By: Danial Cook on 02-19-2025 GFR/1.73 sq M.predicted among non-blacks MDRD (S/P/Bld) [Vol rate/Area] 26 mL/min/{1.73_m2} Low >60 [facility] Comment on above: mL/min/1.73m2 CKD-EP I Creatinine Equation (2020) Hematocrit Auto (Bld) [Volum e fraction]Ordered By: Danial Cook on 02-19-2025 Hematocrit (Bld) [Volume fraction] 36.7 % Low 37-47 [facility] Hemoglobin measurementOrdere d By: Danial Cook on 02-19-2025 Hemoglobin (Bld) [Mass/Vol] 11.6 g/dL Low 12.0-15.0 [facility] Immature granulocytes/100 WB C Auto (Bld)Ordered By: Danial Cook on 02-19-2025 Immature granulocytes/100 WBC (Bld) 0.600 % 0.0-0.9 [facility] Comment on above: IG% - Immature Granu locytes (promyelocytes, myelocytes and metamyelocytes) > 1% indicates that a LEFT SHIFT is Present. L503.7505on 02-19-2025 Natriuretic peptide B (Bld) [Mass/Vol] 719 pg/mL Normal <=1800 [facility] Comment on above: Result Comment: Hear t Failure Unlikely: < 300 pg/mL Heart Failure Likely < 50 Years: > 450 pg/mL 50-75 Years: > 900 pg/mL >75 Years: > 1800 pg/mL Performed By: #### L 100.0100, L500.2500, L503.7505 #### [facility] [address] [place], [place], [address] MCV (mean corpuscular volume ) determinationOrdered By: Danial Cook on 02-19-2025 MCV (RBC) [Entitic vol] 89.5 fL 81-[address] [facility] Mean corpuscular hemoglobin (MCH) determinationOrdered By: Danial Cook on 02-19-2025 MCH (RBC) [Entitic mass] 28.3 pg 27.0-32.0 [facility] Mean corpuscular hemoglobin concentration (MCHC) determinationOrdered By: Danial Cook on 02-19-2025 MCHC (RBC) [Mass/Vol] 31.6 g/dL Low 32-36 [facility] Mean platelet volume determi nationOrdered By: Danial Cook on 02-19-2025 Platelet mean volume (Bld) [Entitic vol] 10.1 fL 6.2-12.0 [facility] Monocyte percentageOrdered B y: Danial Cook on 02-19-2025 Monocytes/100 WBC (Bld) 11.6 % High 0-10 [facility] Natriuretic peptide.B prohor nathan N-Terminal [Mass/volume] in Serum or PlasmaOrdered By: Danial Cook on 02-19-2025 Natriuretic peptide.B prohormone N-Terminal [Mass/Vol] 719 pg/mL <1800 [facility] Comment on above: Heart Failure Unlike ly: < 300 pg/mLHeart Failure Likely< 50 Years: > 450 pg/mL50-75 Years: > 900 pg/mL>75 Years: > 1800 pg/mL Neutrophil percentageOrdered By: Danial Cook on 02-19-2025 Neutrophils/100 WBC (Bld) 70.0 % 47-70 [facility] Nucleated red blood cell per centageOrdered By: Danial Cook on 02-19-2025 Nucleated RBC/100 WBC (Bld) [Ratio] 0 % 0-5 [facility] Platelet countOrdered By: Elizabet Cook on 02-19-2025 Platelets (Bld) [#/Vol] 261 10*3/uL 150-450 [facility] Potassium measurement (mass/ volume)Ordered By: Danial Cook on 02-19-2025 Potassium (Unsp spec) [Mass/Vol] 3.7 mmol/L 3.3-5.1 [facility] RBC Auto (Bld) [#/Vol]Ordere d By: Danial Cook on 02-19-2025 RBC (Bld) [#/Vol] 4.10 10*6/uL Low 4.2-5.4 [facility] Serum creatinine measurement (mass/volume)Ordered By: Danial Cook on 02-19-2025 Creatinine [Mass/Vol] 1.84 mg/dL High 0.70-1.20 [facility] Serum glucose measurement (m ass/volume)Ordered By: Danial Cook on 02-19-2025 Glucose [Mass/Vol] 81 mg/dL 70-99 [facility] Serum or plasma calcium lakeisha urement (mass/volume)Ordered By: Danial Cook on 02-19-2025 Calcium [Mass/Vol] 9.3 mg/dL 7.6-11.0 [facility] Serum or plasma urea nitroge n measurement (mass/volume)Ordered By: Danial Cook on 02-19-2025 Urea nitrogen [Mass/Vol] 34 mg/dL High 4-19 [facility] Sodium levelOrdered By: Refugio ramirez Joey on 02-19-2025 Sodium [Moles/Vol] 139 mmol/L 133-145 [facility] White blood cell (WBC) count Ordered By: Danial Cook on 02-19-2025 WBC (Bld) [#/Vol] 6.9 10*3/uL 4.4-11.0 [facility] CNCOon 12-04-2024 CNCO Letter Text Normal [facility] CNPNon 11-24-2024 CNPN Telephone (PODIWS) AMBER KOROMA ([id number]) 1940 F Date Time Provider Department 11/24/24 [...] Endometrial cancer [C54.1] 03/19/2011 Cyst in hand [[id number]] 08/02/2011 Personal history of malignant neoplasm of [...] Status:Closed by CHARLA BENITEZ on 11/24/24 Normal [facility] CNTHERAPYon 11-20-2024 CNTHERAPY OT/PT/Speech Visit ( PTWS) AMBER KOROMA ([id number]) 1940 F Date Time Provider Department 11/20/24 2:45 PM PRERNA BONDS PTWS Date Time Provider Department Center 11/20/2024 2:45 PM [id number] BONDS PTWS [place] Reason for Visit: [...] 1,000 Units by mouth once daily. Normal [facility] Culture, Blood (WB)on 2024 CUB Blood cultures x2, f rom two different sites No growth in 5 days. Normal [facility] Comment on above: Performed By: #### L 100.0100, L500.2500, L503.7505 #### [facility] [address] [place], [address] [id number] 11-13-2024 [id number] HNO ID: [id number] Author: PRERNA BONDS PT Service: ? Author Type: Physical Therapist Type: [id number] Filed: 11/13/2024 16:42 Note Text: [facility] Physical Therapy Plan of Care Certification Patient Name: Amber Koroma : 1940 [facility] #: [id number] Date: 11/13/2024 To: Tyler Benitez MD From [...] Patient to be seen for Therapeutic exercise (11156), Manual therapy (42943), Self-fpc management (79220), Patient/Family/Caregiver Education PLAN FOR NEXT VISIT: Continue exercise, MLD, and compression to improve skin/soft tissue condition and promote healing. Facilitate pt obtaining appropriate compression for pt management and for prevention of further cellulitis/infection. For further details regarding this patient refer to the Physical Therapy electronically documented visit dated 11/13/2024. Provider Attestation I have reviewed the treatment plan for Amber Koroma, [facility]# [id number] for the period of 11/13/24 -- 01/13/25, established on 11/13/2024. Signature certifies the need for therapy services. Normal [facility] CNTHERAPYon 11-13-2024 CNTHERAPY OT/PT/Speech Visit ( PTWS) AMBER KOROMA ([id number]) 1940 F Date Time Provider Department 11/13/24 2:45 PM PRERNA BONDS PTWS Date Time Provider Department Center 11/13/2024 2:45 PM [id number] BONDS PTWS [place] Reason for Visit: [...] by mouth once daily. Letter Text Normal [facility] Absolute lymphocyte countOrd ered By: Brad Avalos on 11-10-2024 Lymphocytes Auto (Unsp spec) [#/Vol] 0.94 10*3/uL 0.83-4.51 [facility] Absolute neutrophil countOrd ered By: Brad Avalos on 11-10-2024 Neutrophils (Bld) [#/Vol] 5.0 10*3/uL 2.0-7.7 [facility] Anion gap in Serum or Plasma Ordered By: Brad Avalos on 11-10-2024 Anion gap [Moles/Vol] 9 mmol/L 5-15 [facility] Automated lymphocyte count a s percentage of total leukocytesOrdered By: Brad Avalos on 11-10-2024 Lymphocytes/100 WBC Auto (Unsp spec) 14.0 % Low 19-41 [facility] BUN/creatinine ratioOrdered By: Brad Avalos on 11-10-2024 Urea nitrogen/Creatinine [Mass ratio] 18.0 mg/mg 10-20 [facility] Basic Metabolic Profile (BMP )on 11-10-2024 BUN/CRE 18.0 RATIO Normal 10-20 [facility] Comment on above: Performed By: #### L 500.2500, L100.0100 #### [facility] [address] [place], [address] Calcium [Mass/Vol] 9.3 mg/dL Normal 7.6-11.0 [facility] Comment on above: Performed By: #### L 500.2500, L100.0100 #### [facility] [address] [place], [address] Chloride [Moles/Vol] 106 mmol/L Normal 98-108 [facility] Comment on above: Performed By: #### L 500.2500, L100.0100 #### [facility] [address] [place], [address] CO2 [Moles/Vol] 23.8 mmol/L Normal 21.0-32.0 [facility] Comment on above: Performed By: #### L 500.2500, L100.0100 #### [facility] [address] [place], [address] Creatinine [Mass/Vol] 0.96 mg/dL Normal 0.70-1.20 [facility] Comment on above: Performed By: #### L 500.2500, L100.0100 #### [facility] [address] [place], [address] ECRCL 40.63 ml/min Low 50-250 [facility] Comment on above: Performed By: #### L 500.2500, L100.0100 #### [facility] [address] [place], [address] GAP 9 Normal 5-15 [facility] Comment on above: Performed By: #### L 500.2500, L100.0100 #### [facility] [address] [place], [address] GFR/1.73 sq M.predicted among non-blacks MDRD (S/P/Bld) [Vol rate/Area] 58 mL/min/{1.73_m2} Low >60 [facility] Comment on above: Result Comment: mL/m in/1.73m2 CKD-EPI Creatinine Equation (2020) Performed By: #### L 500.2500, L100.0100 #### [facility] [address] [place], [address] Glucose [Mass/Vol] 85 mg/dL Normal 70-99 [facility] Comment on above: Performed By: #### L 500.2500, L100.0100 #### [facility] [address] [place], [address] Potassium [Moles/Vol] 4.3 mmol/L Normal 3.3-5.1 [facility] Comment on above: Performed By: #### L 500.2500, L100.0100 #### [facility] [address] [place], [address] Sodium [Moles/Vol] 138 mmol/L Normal 133-145 [facility] Comment on above: Performed By: #### L 500.2500, L100.0100 #### [facility] [address] [place], [address] Urea nitrogen [Mass/Vol] 17 mg/dL Normal 4-19 [facility] Comment on above: Performed By: #### L 500.2500, L100.0100 #### [facility] [address] [place], [address] Basophil percentageOrdered B y: Brad Avalos on 11-10-2024 Basophils/100 WBC (Bld) 0.4 % 0-1 [facility] Blood cultureOrdered By: Speedy Avalos on 11-10-2024 Bacteria identified Cx Nom (Bld) No growth in 5 days. [facility] Bacteria identified Cx Nom (Bld) No growth in 5 days. [facility] CBC W/Diff, Automatedon - Absolute Lymph 0.94 X10 3/uL Normal 0.83-4.51 [facility] Comment on above: Performed By: #### L 500.2500, L100.0100 #### [facility] [address] [place], [address] Absolute Neut 5.0 X10 3/uL Normal 2.0-7.7 [facility] Comment on above: Performed By: #### L 500.2500, L100.0100 #### [facility] [address] [place], [address] Basophils/100 WBC (Bld) 0.4 % Normal 0-1 [facility] Comment on above: Performed By: #### L 500.2500, L100.0100 #### [facility] [address] [place], [address] Eosinophils/100 WBC (Bld) 1.5 % Normal 0-5 [facility] Comment on above: Performed By: #### L 500.2500, L100.0100 #### [facility] [address] [place], [address] Erythrocyte distribution width (RBC) [Ratio] 14.3 % Normal 11.6-14.6 [facility] Comment on above: Performed By: #### L 500.2500, L100.0100 #### [facility] [address] [place], [address] Hematocrit (Bld) [Volume fraction] 39.6 % Normal 37-47 [facility] Comment on above: Performed By: #### L 500.2500, L100.0100 #### [facility] [address] [place], [address] Hemoglobin (Bld) [Mass/Vol] 12.6 g/dL Normal 12.0-15.0 [facility] Comment on above: Performed By: #### L 500.2500, L100.0100 #### [facility] [address] [place], [address] IG% 0.300 Normal 0.0-0.9 [facility] Comment on above: Result Comment: IG% - Immature Granulocytes (promyelocytes, myelocytes and metamyelocytes) > 1% indicates that a LEFT SHIFT is Present. Performed By: #### L 500.2500, L100.0100 #### [facility] [address] [place], [address] Lymphocytes/100 WBC (Bld) 14.0 % Low 19-41 [facility] Comment on above: Performed By: #### L 500.2500, L100.0100 #### [facility] [address] [place], [address] MCH (RBC) [Entitic mass] 27.8 pg Normal 27.0-32.0 [facility] Comment on above: Performed By: #### L 500.2500, L100.0100 #### [facility] [address] [place], [address] MCHC (RBC) [Mass/Vol] 31.8 g/dL Low 32-36 [facility] Comment on above: Performed By: #### L 500.2500, L100.0100 #### [facility] [address] [place], [address] MCV (RBC) [Entitic vol] 87.4 fL Normal 81-99 [facility] Comment on above: Performed By: #### L 500.2500, L100.0100 #### [facility] [address] [place], [address] Monocytes/100 WBC (Bld) 9.8 % Normal 0-10 [facility] Comment on above: Performed By: #### L 500.2500, L100.0100 #### [facility] [address] [place], [address] Neutrophils/100 WBC (Bld) 74.0 % High 47-70 [facility] Comment on above: Performed By: #### L 500.2500, L100.0100 #### [facility] [address] [place], [address] Nucleated RBC (Bld) [#/Vol] 0 10*3/uL Normal 0-5 [facility] Comment on above: Performed By: #### L 500.2500, L100.0100 #### [facility] [address] [place], [address] Platelet mean volume (Bld) [Entitic vol] 10.0 fL Normal 6.2-12.0 [facility] Comment on above: Performed By: #### L 500.2500, L100.0100 #### [facility] [address] [place], [address] Platelets (Bld) [#/Vol] 192 10*3/uL Normal 150-450 [facility] Comment on above: Performed By: #### L 500.2500, L100.0100 #### [facility] [address] [place], [address] RBC (Bld) [#/Vol] 4.53 10*6/uL Normal 4.2-5.4 [facility] Comment on above: Performed By: #### L 500.2500, L100.0100 #### [facility] [address] [place], [address] RDW SD 45.3 fl High 35.1-43.9 [facility] Comment on above: Performed By: #### L 500.2500, L100.0100 #### [facility] [address] [place], [address] WBC (Bld) [#/Vol] 6.7 10*3/uL Normal 4.4-11.0 [facility] Comment on above: Performed By: #### L 500.2500, L100.0100 #### [facility] [address] [place], [address] Carbon dioxide, total [Moles /volume] in Central venous bloodOrdered By: Brad Avalos on 11-10-2024 CO2 [Moles/Vol] 23.8 mmol/L 21.0-32.0 [facility] Chloride assayOrdered By: Gumaro Avalos on 11-10-2024 Chloride [Moles/Vol] 106 mmol/L 98-108 [facility] Emergency Department Summary on 11-10-2024 Emergency Department Summary [facility] Medical Records Department [address] [place] [address] Emergency Department Summary 11/10/24 MR#: [id number] Acct: [id number] Name: AMBER KOROMA Rep #: [id number] : 1940 84 From: Brad Avalos DO [...] heavy and she has difficulty moving around. 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 Normal [facility] Eosinophil percentageOrdered By: Brad Avalos on 11-10-2024 Eosinophils/100 WBC (Bld) 1.5 % 0-5 [facility] Erythrocyte distribution wid th ratioOrdered By: Brad Avalos on 11-10-2024 Erythrocyte distribution width (RBC) [Ratio] 14.3 % 11.6-14.6 [facility] Erythrocyte distribution wid th standard deviationOrdered By: Brad Avalos on 11-10-2024 Erythrocyte distribution width (RBC) [Entitic vol] 45.3 fL High 35.1-43.9 [facility] Erythrocyte distribution width (RBC) [Ratio] 45.3 fl High 35.1-43.9 [facility] Estimation of creatinine yovanny aranceOrdered By: Brad Avalos on 11-10-2024 Estimated Creatinine Clearance Calc 40.63 ml/min Low 50-250 [facility] GFR/1.73 sq M.predicted zane g non-blacks MDRD (S/P/Bld) [Vol rate/Area]Ordered By: Brad Avalos on 11-10-2024 Estimated GFR (MDRD) Non-Af Amer 58 Low >60 [facility] Comment on above: mL/min/1.73m2 CKD-EP I Creatinine Equation (2020) Glomerular filtration rate ( GFR) estimation/1.73 sq m using serum, plasma, or whole bOrdered By: Brad Avalos on 11-10-2024 GFR/1.73 sq M.predicted among non-blacks MDRD (S/P/Bld) [Vol rate/Area] 58 mL/min/{1.73_m2} Low >60 [facility] Comment on above: mL/min/1.73m2 CKD-EP I Creatinine Equation (2020) Hematocrit Auto (Bld) [Volum e fraction]Ordered By: Brad Avalos on 11-10-2024 Hematocrit (Bld) [Volume fraction] 39.6 % 37-47 [facility] Hemoglobin measurementOrdere d By: Brad Avalos on 11-10-2024 Hemoglobin (Bld) [Mass/Vol] 12.6 g/dL 12.0-15.0 [facility] Immature granulocytes/100 WB C Auto (Bld)Ordered By: Brad Avalos on 11-10-2024 Immature granulocytes/100 WBC (Bld) 0.300 % 0.0-0.9 [facility] Comment on above: IG% - Immature Granu locytes (promyelocytes, myelocytes and metamyelocytes) > 1% indicates that a LEFT SHIFT is Present. Lymphocytes Auto (Unsp spec) [#/Vol]Ordered By: Brad Avalos on 11-10-2024 Lymphocytes (Bld) [#/Vol] 0.94 10*3/uL 0.83-4.51 [facility] Lymphocytes/100 WBC Auto (Un sp spec)Ordered By: Brad Avalos on 11-10-2024 Lymphocytes/100 WBC (Bld) 14.0 % Low 19-41 [facility] MCV (mean corpuscular volume ) determinationOrdered By: Brad Avalos on 11-10-2024 MCV (RBC) [Entitic vol] 87.4 fL 81-99 [facility] Mean corpuscular hemoglobin (MCH) determinationOrdered By: Brad Avalos on 11-10-2024 MCH (RBC) [Entitic mass] 27.8 pg 27.0-32.0 [facility] Mean corpuscular hemoglobin concentration (MCHC) determinationOrdered By: Brad Avalos on 11-10-2024 MCHC (RBC) [Mass/Vol] 31.8 g/dL Low 32-36 [facility] Mean platelet volume determi nationOrdered By: Brad Avalos on 11-10-2024 Platelet mean volume (Bld) [Entitic vol] 10.0 fL 6.2-12.0 [facility] Monocyte percentageOrdered B y: Brad Avalos on 11-10-2024 Monocytes/100 WBC (Bld) 9.8 % 0-10 [facility] Neutrophil percentageOrdered By: Brad Avalos on 11-10-2024 Neutrophils/100 WBC (Bld) 74.0 % High 47-70 [facility] Nucleated red blood cell per centageOrdered By: Brad Avalos on 11-10-2024 Nucleated RBC/100 WBC (Bld) [Ratio] 0 % 0-5 [facility] Platelet countOrdered By: Gumaro Avalos on 11-10-2024 Platelets (Bld) [#/Vol] 192 10*3/uL 150-450 [facility] Potassium (Unsp spec) [Mass/ Vol]Ordered By: Brad Avalos on 11-10-2024 Potassium [Moles/Vol] 4.3 mmol/L 3.3-5.1 [facility] Potassium measurement (mass/ volume)Ordered By: Brad Avalos on 11-10-2024 Potassium (Unsp spec) [Mass/Vol] 4.3 mmol/L 3.3-5.1 [facility] RBC Auto (Bld) [#/Vol]Ordere d By: Brad Avalos on 11-10-2024 RBC (Bld) [#/Vol] 4.53 10*6/uL 4.2-5.4 [facility] Serum creatinine measurement (mass/volume)Ordered By: Brad Avalos on 11-10-2024 Creatinine [Mass/Vol] 0.96 mg/dL 0.70-1.20 [facility] Serum glucose measurement (m ass/volume)Ordered By: Brad Avalos on 11-10-2024 Glucose [Mass/Vol] 85 mg/dL 70-99 [facility] Serum or plasma calcium lakeisha urement (mass/volume)Ordered By: Brad Avalos on 11-10-2024 Calcium [Mass/Vol] 9.3 mg/dL 7.6-11.0 [facility] Serum or plasma urea nitroge n measurement (mass/volume)Ordered By: Brad Avalos on 11-10-2024 Urea nitrogen [Mass/Vol] 17 mg/dL 4-19 [facility] Sodium levelOrdered By: Ray Avalos on 11-10-2024 Sodium [Moles/Vol] 138 mmol/L 133-145 [facility] White blood cell (WBC) count Ordered By: Brad Avalos on 11-10-2024 WBC (Bld) [#/Vol] 6.7 10*3/uL 4.4-11.0 [facility] CNPNon 11-09-2024 CNPN Telephone (PTWS) AMBER KOROMA ([id number]) 1940 F Date Time Provider Department 11/09/24 [...] Endometrial cancer [C54.1] 03/19/2011 Cyst in hand [[id number]] 08/02/2011 Personal history of malignant neoplasm of [...] Encounter Status:[facility] ([id number]) 1940 F Date Time Provider Department 11/09/24 [...] Fully Assessed Reason for Visit: Patient Question [8819] Cmt: (cont) Pt was then advised to [...] Endometrial cancer [C54.1] 03/19/2011 Cyst in hand [[id number]] 08/02/2011 Personal history of malignant neoplasm of [...] Status:Closed by PRERNA BONDS on 11/09/24 Normal [facility] CNPN Telephone (PTWS) AMBER KOROMA ([id number]) 1940 F Date Time Provider Department 11/09/24 [...] Endometrial cancer [C54.1] 03/19/2011 Cyst in hand [[id number]] 08/02/2011 Personal history of malignant neoplasm of [...] Status:Closed by PRERNA BON[facility] 11[facility]09/24 [facility] ([id number]) 1940 F Date Time Provider Department 11/09/24 [...] Fully Assessed Reason for Visit: Patient Question [7631] Cmt: Therapist spoke with nurse in [facility] [facility] who consulted physician on staff and [...] Endometrial cancer [C54.1] 03/19/2011 Cyst in hand [[id number]] 08/02/2011 Personal history of malignant neoplasm of [...] Status:Closed by PRERNA BONDS on 11/09/24 Normal [facility] CNTHERAPYon 10-30-2024 CNTHERAPY OT/PT/Speech Visit ( PTWS) AMBER KOROMA ([id number]) 1940 F Date Time Provider Department 10/30/24 2:45 PM ISAHUSSAINPRERNA PTWS Date Time Provider Department Center 10/30/2024 2:45 PM [id number] BONDS PTWS [place] Reason for Visit: [...] 1,000 Units by mouth once daily. Normal [facility] CNTHERAPYon 09-25-2024 CNTHERAPY OT/PT/Speech Visit ( PTWS) AMBER KOROMA ([id number]) 1940 F Date Time Provider Department 09/25/24 2:45 PM PRERNA BONDS PTWS Date Time Provider Department Center 09/25/2024 2:45 PM [id number] BONDS PTWS [place] Reason for Visit: [...] 1,000 Units by mouth once daily. Normal [facility] [id number] 09-04-2024 [id number] HNO ID: [id number] Author: PRERNA BONDS PT Service: ? Author Type: Physical Therapist Type: [id number] Filed: 09/04/2024 16:39 Note Text: [facility] Physical Therapy Plan of Care Certification Patient Name: Amber Koroma : 1940 CC #: [id number] Date: 09/04/2024 To: Chhaya Stacy MD From [...] Patient to be seen for Therapeutic exercise (32484), Manual therapy (51143), Self-fpc management (73775), Patient/Family/Caregiver Education PLAN FOR NEXT VISIT: Resume [...] reviewed the treatment plan for Amber Koroma, [facility]# [id number] for the period of 09/17/24 -- 11/02/24, established on 09/04/2024. Signature certifies the need for therapy services. Normal [facility] CNTHERAPYon 09-04-2024 CNTHERAPY OT/PT/Speech Visit ( PTWS) AMBER KOROMA ([id number]) 1940 F Date Time Provider Department 09/04/24 2:45 PM PRERNA BONDS PTWS Date Time Provider Department Center 09/04/2024 2:45 PM [id number] BONDS PTWS [place] Reason for Visit: [...] by mouth once daily. Letter Text Normal [facility] Orthopedic Visit Reporton Orthopedic Visit Report [facility] [address] [place] [address] OFFICE VISIT Date of Service: 08/27/24 MR#: [id number] Acct: [id number] Name: AMBER KOROMA Rep #: [id number] : 1940 Provider: Dr. 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 Alphonso Newell MD 08/27/24 5393. Part of today???s visit was documented by [...] Performing Provider: Alphonso Newell MD Performing Location: [facility] Administered by: Alphonso (more content not included)... Normal [facility] Orthopedic Visit Reporton Orthopedic Visit Report [facility] [address] [place] [address] [place] [id number] OFFICE VISIT Date of Service: 08/21/24 MR#: [id number] Acct: [id number] Name: AMBER KOROMA Rep #: [id number] : 1940 Provider: Dr. 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 Normal [facility] BNP,B-Type NATRIURETIC PEPTI Marifer 08-12-2024 Natriuretic peptide B (Bld) [Mass/Vol] 182.0 pg/mL High 0-100 [facility] Comment on above: Performed By: #### L 503.6651 ####[facility] [id number] [place], [address] Absolute neutrophil countOrd ered By: Tyler Benitez on 08-11-2024 Neutrophils (Bld) [#/Vol] 4.2 10*3/uL 2.0-7.7 [facility] Albumin to globulin ratioOrd ered By: Tyler Benitez on 08-11-2024 Albumin/Globulin [Mass ratio] 0.8 {ratio} Low 0.9-2.4 [facility] BNP (brain natriuretic pepti de measurement)Ordered By: Tyler Benitez on 08-11-2024 Natriuretic peptide B (Bld) [Mass/Vol] 182.0 pg/mL High 0-100 [facility] Basophil percentageOrdered B y: Tyler Benitez on 08-11-2024 Basophils/100 WBC (Bld) 0.6 % 0-1 [facility] Bilirubin, totalOrdered By: Tyler Benitez on 08-11-2024 Bilirubin [Mass/Vol] 0.30 mg/dL 0.20-1.00 [facility] Comment on above: For patients on eltr ombopag therapy, use of Dimension [place] TBIL is not recommended. Blood urea nitrogen (BUN)/cr eatinine ratioOrdered By: Tyler Benitez on 08-11-2024 Urea nitrogen/Creatinine [Mass ratio] 16.0 mg/mg 10-20 [facility] CBC W/Diff, Automatedon 07-26 Absolute Lymph 1.51 X10 3/uL Normal 0.83-4.51 [facility] Comment on above: Order Comment: Order Date: 08/11/24 Order Info: 0184-1 - CBCD Performed By: #### L 500.4050, L100.0100 #### [facility] [address] [place], [address] Absolute Neut 4.2 X10 3/uL Normal 2.0-7.7 [facility] Comment on above: Order Comment: Order Date: 08/11/24 Order Info: 018- - CBCD Performed By: #### L 500.4050, L100.0100 #### [facility] [address] [place], [address] Basophils/100 WBC (Bld) 0.6 % Normal 0-[address] [facility] Comment on above: Order Comment: Order Date: 08/11/24 Order Info: 018-1 - CBCD Performed By: #### L 500.4050, L100.0100 #### [facility] [address] [place], [address] Eosinophils/100 WBC (Bld) 3.2 % Normal 0-5 [facility] Comment on above: Order Comment: Order Date: 08/11/24 Order Info: 018-1 - CBCD Performed By: #### L 500.4050, L100.0100 #### [facility] [address] [place], [address] Erythrocyte distribution width (RBC) [Ratio] 13.7 % Normal 11.6-14.6 [facility] Comment on above: Order Comment: Order Date: 08/11/24 Order Info: 0184-1 - CBCD Performed By: #### L 500.4050, L100.0100 #### [facility] [address] [place], [address] Hematocrit (Bld) [Volume fraction] 39.7 % Normal 37-47 [facility] Comment on above: Order Comment: Order Date: 08/11/24 Order Info: 018- - CBCD Performed By: #### L 500.4050, L100.0100 #### [facility] [address] [place], [address] Hemoglobin (Bld) [Mass/Vol] 12.3 g/dL Normal 12.0-15.0 [facility] Comment on above: Order Comment: Order Date: 08/11/24 Order Info: 018- - CBCD Performed By: #### L 500.4050, L100.0100 #### [facility] [address] [place], [address] IG% 0.000 Normal 0.0-0.9 [facility] Comment on above: Order Comment: Order Date: 08/11/24 Order Info: 018- - CBCD Result Comment: IG% - Immature Granulocytes (promyelocytes, myelocytes and metamyelocytes) > 1% indicates that a LEFT SHIFT is Present. Performed By: #### L 500.4050, L100.0100 #### [facility] [address] [place], [address] Lymphocytes/100 WBC (Bld) 23.2 % Normal 19-41 [facility] Comment on above: Order Comment: Order Date: 08/11/24 Order Info: 018- - CBCD Performed By: #### L 500.4050, L100.0100 #### [facility] [address] [place], [address] MCH (RBC) [Entitic mass] 27.5 pg Normal 27.0-32.0 [facility] Comment on above: Order Comment: Order Date: 08/11/24 Order Info: 0184- - CBCD Performed By: #### L 500.4050, L100.0100 #### [facility] [address] [place], [address] MCHC (RBC) [Mass/Vol] 31.0 g/dL Low 32-36 [facility] Comment on above: Order Comment: Order Date: 08/11/24 Order Info: 0184-1 - CBCD Performed By: #### L 500.4050, L100.0100 #### [facility] [address] [place], [address] MCV (RBC) [Entitic vol] 88.6 fL Normal 81-[address] [facility] Comment on above: Order Comment: Order Date: 08/11/24 Order Info: 0184-1 - CBCD Performed By: #### L 500.4050, L100.0100 #### [facility] [address] [place], [address] Monocytes/100 WBC (Bld) 8.6 % Normal 0-[address] [facility] Comment on above: Order Comment: Order Date: 08/11/24 Order Info: 0184-1 - CBCD Performed By: #### L 500.4050, L100.0100 #### [facility] [address] [place], [address] Neutrophils/100 WBC (Bld) 64.4 % Normal 47-70 [facility] Comment on above: Order Comment: Order Date: 08/11/24 Order Info: 0184-1 - CBCD Performed By: #### L 500.4050, L100.0100 #### [facility] [address] [place], [address] Nucleated RBC (Bld) [#/Vol] 0 10*3/uL Normal 0-5 [facility] Comment on above: Order Comment: Order Date: 08/11/24 Order Info: 0184-1 - CBCD Performed By: #### L 500.4050, L100.0100 #### [facility] [address] [place], [address] Platelet mean volume (Bld) [Entitic vol] 10.5 fL Normal 6.2-12.0 [facility] Comment on above: Order Comment: Order Date: 08/11/24 Order Info: 0184-1 - CBCD Performed By: #### L 500.4050, L100.0100 #### [facility] [address] [place], [address] Platelets (Bld) [#/Vol] 220 10*3/uL Normal 150-450 [facility] Comment on above: Order Comment: Order Date: 08/11/24 Order Info: 0184-1 - CBCD Performed By: #### L 500.4050, L100.0100 #### [facility] [address] [place], [address] RBC (Bld) [#/Vol] 4.48 10*6/uL Normal 4.2-5.4 [facility] Comment on above: Order Comment: Order Date: 08/11/24 Order Info: 0184-1 - CBCD Performed By: #### L 500.4050, L100.0100 #### [facility] [address] [place], [address] RDW SD 44.5 fl High 35.1-43.9 [facility] Comment on above: Order Comment: Order Date: 08/11/24 Order Info: 0184-1 - CBCD Performed By: #### L 500.4050, L100.0100 #### [facility] [address] [place], [address] WBC (Bld) [#/Vol] 6.5 10*3/uL Normal 4.4-11.0 [facility] Comment on above: Order Comment: Order Date: 08/11/24 Order Info: 0184-1 - CBCD Performed By: #### L 500.4050, L100.0100 #### [facility] [address] [place], [address] Carbon dioxide measurementOr dered By: Tyler Benitez on 08-11-2024 CO2 [Moles/Vol] 27.0 mmol/L 21.0-32.0 [facility] Chloride measurementOrdered By: Tyler Benitez on 08-11-2024 Chloride [Moles/Vol] 108 mmol/L High 98-107 [facility] Comprehensive Metabolic Prof ilon 08-11-2024 Albumin [Mass/Vol] 3.2 g/dL Normal 3.2-5.0 [facility] Comment on above: Order Comment: Order Date: 08/11/24 Order Info: 0786-1 - CMP Performed By: #### L 500.4050, L100.0100 #### [facility] [address] [place], [address] Albumin/Globulin [Mass ratio] 0.8 {ratio} Low 0.9-2.4 [facility] Comment on above: Order Comment: Order Date: 08/11/24 Order Info: 0786-1 - CMP Performed By: #### L 500.4050, L100.0100 #### [facility] [address] [place], [address] ALK P 86 U/L Normal 45-117 [facility] Comment on above: Order Comment: Order Date: 08/11/24 Order Info: 0786-1 - CMP Performed By: #### L 500.4050, L100.0100 #### [facility] [address] [place], [address] ALT [Catalytic activity/Vol] 13 U/L Normal 13-56 [facility] Comment on above: Order Comment: Order Date: 08/11/24 Order Info: 0786-1 - CMP Performed By: #### L 500.4050, L100.0100 #### [facility] [address] [place], [address] AST [Catalytic activity/Vol] 13 U/L Low 15-37 [facility] Comment on above: Order Comment: Order Date: 08/11/24 Order Info: 0786-1 - CMP Performed By: #### L 500.4050, L100.0100 #### [facility] [address] [place], [address] Bilirubin [Mass/Vol] 0.30 mg/dL Normal 0.20-1.00 [facility] Comment on above: Order Comment: Order Date: 08/11/24 Order Info: 0786-1 - CMP Result Comment: For patients on eltrombopag therapy, use of Dimension [place] TBIL is not recommended. Performed By: #### L 500.4050, L100.0100 #### [facility] [address] [place], [address] BUN/CRE 16.0 RATIO Normal 10-20 [facility] Comment on above: Order Comment: Order Date: 08/11/24 Order Info: 0786-1 - CMP Performed By: #### L 500.4050, L100.0100 #### [facility] [address] [place], [address] CA,Total 9.6 mg/dL Normal 8.5-10.1 [facility] Comment on above: Order Comment: Order Date: 08/11/24 Order Info: 0786-1 - CMP Performed By: #### L 500.4050, L100.0100 #### [facility] [address] [place], [address] Chloride [Moles/Vol] 108 mmol/L High 98-107 [facility] Comment on above: Order Comment: Order Date: 08/11/24 Order Info: 0786-1 - CMP Performed By: #### L 500.4050, L100.0100 #### [facility] [address] [place], [address] CO2 [Moles/Vol] 27.0 mmol/L Normal 21.0-32.0 [facility] Comment on above: Order Comment: Order Date: 08/11/24 Order Info: 0786-1 - CMP Performed By: #### L 500.4050, L100.0100 #### [facility] [address] [place], [address] Creatinine [Mass/Vol] 1.00 mg/dL Normal 0.55-1.02 [facility] Comment on above: Order Comment: Order Date: 08/11/24 Order Info: 0786-1 - CMP Result Comment: The validity of the calculated GFR GFRAA in patients over 70 years has not been determined. Clinical correlation is essential. Performed By: #### L 500.4050, L100.0100 #### [facility] [address] [place], [address] EST GFR - AA 68 mL/min Normal >60 [facility] Comment on above: Order Comment: Order Date: 08/11/24 Order Info: 0786-1 - CMP Result Comment: Afri can [place] GFR Calc Performed By: #### L 500.4050, L100.0100 #### [facility] [address] [place], [address] GAP 4 Low 5-15 [facility] Comment on above: Order Comment: Order Date: 08/11/24 Order Info: 0786-1 - CMP Performed By: #### L 500.4050, L100.0100 #### [facility] [address] [place], [address] GFR/1.73 sq M.predicted among non-blacks MDRD (S/P/Bld) [Vol rate/Area] 56 mL/min/{1.73_m2} Low >60 [facility] Comment on above: Order Comment: Order Date: 08/11/24 Order Info: 0786-1 - CMP Result Comment: Non- GFR Calc Performed By: #### L 500.4050, L100.0100 #### [facility] [address] [place], [address] Globulin (S) [Mass/Vol] 4.2 g/dL Normal 2.2-4.[address] [facility] Comment on above: Order Comment: Order Date: 08/11/24 Order Info: 0786-1 - CMP Performed By: #### L 500.4050, L100.0100 #### [facility] [address] [place], [address] Glucose [Mass/Vol] 91 mg/dL Normal 74-106 [facility] Comment on above: Order Comment: Order Date: 08/11/24 Order Info: 0786-1 - CMP Performed By: #### L 500.4050, L100.0100 #### [facility] [address] [place], [address] Potassium [Moles/Vol] 3.9 mmol/L Normal 3.5-5.1 [facility] Comment on above: Order Comment: Order Date: 08/11/24 Order Info: 0786-1 - CMP Performed By: #### L 500.4050, L100.0100 #### [facility] [address] [place], [address] Sodium [Moles/Vol] 139 mmol/L Normal 136-145 [facility] Comment on above: Order Comment: Order Date: 08/11/24 Order Info: 0786-1 - CMP Performed By: #### L 500.4050, L100.0100 #### [facility] [address] [place], [address] T PROT 7.4 g/dL Normal 6.4-8.2 [facility] Comment on above: Order Comment: Order Date: 08/11/24 Order Info: 0786-1 - CMP Performed By: #### L 500.4050, L100.0100 #### [facility] [address] [place], [address] Urea nitrogen [Mass/Vol] 16 mg/dL Normal 7-18 [facility] Comment on above: Order Comment: Order Date: 08/11/24 Order Info: 0786-1 - CMP Performed By: #### L 500.4050, L100.0100 #### [facility] [address] [place], [address] Eosinophil percentageOrdered By: Tyler Benitez on 08-11-2024 Eosinophils/100 WBC (Bld) 3.2 % 0-5 [facility] Erythrocyte distribution wid th ratioOrdered By: Tyler Benitez on 08-11-2024 Erythrocyte distribution width (RBC) [Ratio] 13.7 % 11.6-14.6 [facility] Erythrocyte distribution wid th standard deviationOrdered By: Tyler Benitez on 08-11-2024 Erythrocyte distribution width (RBC) [Entitic vol] 44.5 fL High 35.1-43.9 [facility] Estimated glomerular filtrat ion rate (GFR) AmericanOrdered By: Tyler Benitez on 08-11-2024 Estimated GFR (MDRD) Amer 68 mL/min >60 [facility] Comment on above: GFR Calc Glomerular filtration rate ( GFR) estimationOrdered By: Tyler Benitez on 08-11-2024 Estimated GFR (MDRD) Non-Af Amer 56 mL/min Low >60 [facility] Comment on above: Non- GFR Calc Glucose measurementOrdered B y: Tyler Benitez on 08-11-2024 Glucose [Mass/Vol] 91 mg/dL 74-106 [facility] Hematocrit Auto (Bld) [Volum e fraction]Ordered By: Tyler Benitez on 08-11-2024 Hematocrit (Bld) [Volume fraction] 39.7 % 37-47 [facility] Hemoglobin measurementOrdere d By: Tyler Benitez on 08-11-2024 Hemoglobin (Bld) [Mass/Vol] 12.3 g/dL 12.0-15.0 [facility] Immature granulocytes/100 WB C Auto (Bld)Ordered By: Tyler Benitez on 08-11-2024 Immature granulocytes/100 WBC (Bld) 0.000 % 0.0-0.9 [facility] Comment on above: IG% - Immature Granu locytes (promyelocytes, myelocytes and metamyelocytes) > 1% indicates that a LEFT SHIFT is Present. Laboratory - Chemistry and C hemistry - challengeOrdered By: Tyler Benitez on 08-11-2024 AST [Catalytic activity/Vol] 13 U/L Low 15-37 [facility] Lymphocytes Auto (Unsp spec) [#/Vol]Ordered By: Tyler Benitez on 08-11-2024 Lymphocytes (Bld) [#/Vol] 1.51 10*3/uL 0.83-4.51 [facility] Lymphocytes/100 WBC Auto (Un sp spec)Ordered By: Tyler Benitez on 08-11-2024 Lymphocytes/100 WBC (Bld) 23.2 % 19-41 [facility] MCV (mean corpuscular volume ) determinationOrdered By: Tyler Benitez on 08-11-2024 MCV (RBC) [Entitic vol] 88.6 fL 81-[address] [facility] Mean corpuscular hemoglobin (MCH) determinationOrdered By: Tyler Benitez on 08-11-2024 MCH (RBC) [Entitic mass] 27.5 pg 27.0-32.0 [facility] Mean corpuscular hemoglobin concentration (MCHC) determinationOrdered By: Tyler Benitez on 08-11-2024 MCHC (RBC) [Mass/Vol] 31.0 g/dL Low 32-36 [facility] Mean platelet volume determi nationOrdered By: Tyler Benitez on 08-11-2024 Platelet mean volume (Bld) [Entitic vol] 10.5 fL 6.2-12.0 [facility] Monocyte percentageOrdered B y: Tyler Benitez on 08-11-2024 Monocytes/100 WBC (Bld) 8.6 % 0-[address] [facility] Neutrophil percentageOrdered By: Tyler Benitez on 08-11-2024 Neutrophils/100 WBC (Bld) 64.4 % 47-70 [facility] Nucleated red blood cell per centageOrdered By: Tyler Benitez on 08-11-2024 Nucleated RBC/100 WBC (Bld) [Ratio] 0 % 0-5 [facility] Orthopedic Visit Reporton Orthopedic Visit Report [facility] [address] [place] [id number] OFFICE VISIT Date of Service: 08/11/24 MR#: [id number] Acct: [id number] Name: AMBER KOROMA Rep #: [id number] : 1940 Provider: Dr. Alphonso rock MD Age/Sex: 84/F Location: [facility] Status: Signed with Addenda ADDENDUM by Angelita [...] Performing Provider: Alphonso Newell MD Performing Location: [facility] Administered by: Alphonso Newell MD on 08/11/24 16:10 Dose Route Admin Location Dispensed Lot Number Expiration Date [facility] Man ufacturer 20 mg intra-articular right knee 2 mL [id number] 07/20/25 [address]-9 [employer] Date cc: * Signed Intake Vital Signs 08/06/24 10:10 Height 4 ft 11 in Intake Visit Reasons: RIGHT KNEE Chief Complaint: Cough Allergies adhesive Allergy (Verified 07/14/24 13:19) Hives dicyclomine HCl (From Bentyl) Allergy (Verified 07/14/24 13:19) Hives aspirin Adverse Reaction (Verified 07/14/24 13:19) Low platelets Have you fallen in the past year?: No (?) [facility] Medical History Osteoarthritis of right knee Abdominal pain COVID-19 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 Coding Level of Care Code Attention [employer] Supervisor Diagnoses Osteoarthritis of right knee M17.11 Comment [...] damage t (more content not included)... Normal [facility] Platelet countOrdered By: Silvio Benitez on 08-11-2024 Platelets (Bld) [#/Vol] 220 10*3/uL 150-450 [facility] Potassium measurementOrdered By: Tyler Benitez on 08-11-2024 Potassium [Moles/Vol] 3.9 mmol/L 3.5-5.1 [facility] RBC Auto (Bld) [#/Vol]Ordere d By: Tyler Benitez on 08-11-2024 RBC (Bld) [#/Vol] 4.48 10*6/uL 4.2-5.4 [facility] Serum anion gap measurementO rdered By: Tyler Benitez on 08-11-2024 Anion gap [Moles/Vol] 4 mmol/L Low 5-15 [facility] Serum globulin measurementOr dered By: Tyler Benitez on 08-11-2024 Globulin (S) [Mass/Vol] 4.2 g/dL 2.2-4.2 [facility] Serum or plasma alanine welch otransferase (ALT) measurementOrdered By: Tyler Benitez on 08-11-2024 ALT [Catalytic activity/Vol] 13 U/L 13-56 [facility] Serum or plasma albumin lakeisha urement (mass/volume)Ordered By: Tyler Benitez on 08-11-2024 Albumin [Mass/Vol] 3.2 g/dL 3.2-5.0 [facility] Serum or plasma alkaline vania sphatase measurementOrdered By: Tyler Benitez on 08-11-2024 ALP [Catalytic activity/Vol] 86 U/L 45-117 [facility] Serum or plasma calcium lakeisha urement (mass/volume)Ordered By: Tyler Benitez on 08-11-2024 Calcium [Mass/Vol] 9.6 mg/dL 8.5-10.1 [facility] Serum or plasma creatinine m easurement (mass/volume)Ordered By: Tyler Benitez on 08-11-2024 Creatinine [Mass/Vol] 1.00 mg/dL 0.55-1.02 [facility] Comment on above: The validity of the calculated GFR & GFRAA in patients over 70 years has not been determined. Clinical correlation is essential. Serum or plasma urea nitroge n measurement (mass/volume)Ordered By: Tyler Benitez on 08-11-2024 Urea nitrogen [Mass/Vol] 16 mg/dL 7-18 [facility] Sodium levelOrdered By: Tyler Benitez on 08-11-2024 Sodium [Moles/Vol] 139 mmol/L 136-145 [facility] Total proteinOrdered By: Reyna Benitez on 08-11-2024 Protein [Mass/Vol] 7.4 g/dL 6.4-8.2 [facility] White blood cell (WBC) count Ordered By: Tyler Benitez on 08-11-2024 WBC (Bld) [#/Vol] 6.5 10*3/uL 4.4-11.0 [facility] [id number] 07-17-2024 [id number] O ID: [id number] Author: PRERNA BONDS PT Service: ? Author Type: Physical Therapist Type: [id number] Filed: 07/17/2024 17:12 Note Text: [facility] Physical Therapy Plan of Care Certification Patient Name: Amber Koroma : 1940 [facility] #: [id number] Date: 07/17/2024 To: Chhaya Stacy MD From [...] Patient to be seen for Therapeutic exercise (74615), Manual therapy (96996), Self-fpc management (94010), Patient/Family/Caregiver Education PLAN FOR NEXT VISIT: LE volume measurements. Continue MLD and short-stretch bandaging. Facilitate pt obtaining inelastic wraps to improve self-management and skin condition (able to remove to bathe, etc.). For further details regarding this patient refer to the Physical Therapy electronically documented visit dated 07/17/2024. Provider Attestation I have reviewed the treatment plan for Amber Koroma, CC# [id number] for the period of 09/16/24 -- , established on 07/17/2024. Signature certifies the need for therapy services. [facility] CNTHERAPYon 07-17-2024 CNTHERAPY OT/PT/Speech Visit ( PTWS) AMBER KOROMA ([id number]) 1940 F Date Time Provider Department 07/17/24 2:45 PM PRERNA BONDS PTWS Date Time Provider Department Center 07/17/2024 2:45 PM [id number] BONDS PTWS Ernesto Bradshaw Reason for Visit: [...] by mouth once daily. Letter Text [facility] Orthopedic Visit Reporton Orthopedic Visit Report [facility] [address] [place] [address] OFFICE VISIT Date of Service: 07/14/24 MR#: [id number] Acct: [id number] Name: AMBER KOROMA Rep #: [id number] : 1940 Provider: Dr. 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 Normal [facility] CNTHERAPYon 07-10-2024 CNTHERAPY OT/PT/Speech Visit ( PTWS) AMBER KOROMA ([id number]) 1940 F Date Time Provider Department 07/10/24 2:45 PM PRERNA BONDS PTWS Date Time Provider Department Center 07/10/2024 2:45 PM [id number] BONDS PTWS Helenakimi Bradshaw Reason for Visit: Physical Therapy [503] [...] 1,000 Units by mouth once daily. [facility] CNTHERAPYon 06-24-2024 CNTHERAPY OT/PT/Speech Visit ( PTWS) AMBER KOROMA ([id number]) 1940 F Date Time Provider Department 06/24/24 4:00 PM VAMSHI PRERNA PTWS Date Time Provider Department Center 06/24/2024 4:00 PM [id number] PRERNA PTWS Ernesto Bradshaw Reason for Visit: [...] 1,000 Units by mouth once daily. [facility] CNTHERAPYon 06-19-2024 CNTHERAPY OT/PT/Speech Visit ( PTWS) AMBER KOROMA ([id number]) 1940 F Date Time Provider Department 06/19/24 2:45 PM PRERNA BONDS PTWS Date Time Provider Department Center 06/19/2024 2:45 PM [id number] BONDS PTWS Ernesto Bradshaw Reason for Visit: [...] 1,000 Units by mouth once daily. Normal [facility] 06-12-2024 CNPN Telephone (PTWS) AMBER KOROMA ([id number]) 1940 F Date Time Provider Department 06/12/24 [...] only keep Saturday's visit (06/19) because her fork truck driver can only take her on Fridays. Later, she said she would call her fork truck driver to see if she could bring [...] Endometrial cancer [C54.1] 03/19/2011 Cyst in hand [[id number]] 08/02/2011 Personal history of malignant neoplasm of [...] Status:Closed by PRERNA BONDS on 06/12/24 [facility] CNTHERAPYon 05-29-2024 CNTHERAPY OT/PT/Speech Visit ( PTWS) AMBER KOROMA ([id number]) 1940 F Date Time Provider Department 05/29/24 2:45 PM PRERNA BONDS PTWS Date Time Provider Department Center 05/29/2024 2:45 PM [id number] BONDS PTWS Ernesto Bradshaw Reason for Visit: [...] 1,000 Units by mouth once daily. [facility] [id number] 05-25-2024 [id number] HNO ID: [id number] Author: PRERNA BONDS PT Service: ? Author Type: Physical Therapist Type: [id number] Filed: 05/25/2024 20:15 Note Text: [facility] Physical Therapy Plan of Care Certification Patient Name: Amber Koroma : 1940 CC #: [id number] Date: 05/22/2024 To: Tyler Benitez MD From [...] diagnosis) PLAN OF CARE UPDATE: Assessment: Amber Krooma demonstrates difficulty with B LE edema, skin [...] Patient to be seen for Therapeutic exercise (40881), Manual therapy (31225), Self-fpc management (08163), Patient/Family/Caregiver Education PLAN FOR NEXT VISIT: Continue MLD and compression wrapping. measure leg volume next visit. Continue to facilitate pt obtaining self-managable compression prior to discharge end of May. For further details regarding this patient refer to the Physical Therapy electronically documented visit dated 05/22/2024. Provider Attestation I have reviewed the treatment plan for mAber KoromaMITESH# [id number] for the period of 04/17/24 -- 06/21/24, established on 05/22/2024. Signature certifies the need for therapy services. [facility] CNTHERAPYon 05-22-2024 CNTHERAPY OT/PT/Speech Visit ( PTWS) AMBER KOROMA ([id number]) 1940 F Date Time Provider Department 05/22/24 2:45 PM PRERNA BONDS PTWS Date Time Provider Department Center 05/22/2024 2:45 PM [id number] BONDS PTWS Ernesto Bradshaw Reason for Visit: [...] once daily. Letter Text Letter Text [facility] CNTHERAPYon 05-08-2024 CNTHERAPY OT/PT/Speech Visit ( PTWS) AMBER KOROMA ([id number]) 1940 F Date Time Provider Department 05/08/24 2:45 PM PRERNA BONDS PTWS Date Time Provider Department Center 05/08/2024 2:45 PM [id number] BONDS PTWS Ernesto Bradshaw Reason for Visit: [...] 1,000 Units by mouth once daily. [facility] CNTHERAPYon 04-24-2024 CNTHERAPY OT/PT/Speech Visit ( PTWS) AMBER KOROMA ([id number]) 1940 F Date Time Provider Department 04/24/24 2:45 PM PRERNA BONDS PTWS Date Time Provider Department Center 04/24/2024 2:45 PM [id number] BONDS PTWS Ernesto Bradshaw Reason for Visit: [...] 1,000 Units by mouth once daily. [facility] CNTHERAPYon 04-17-2024 CNTHERAPY OT/PT/Speech Visit ( PTWS) AMBER KOROMA ([id number]) 1940 F Date Time Provider Department 04/17/24 1:00 PM PRERNA BONDS PTWS Date Time Provider Department Center 04/17/2024 1:00 PM [id number] BONDS PTWS Ernesto Bradshaw Reason for Visit: [...] 1,000 Units by mouth once daily. [facility] Absolute lymphocyte countOrd ered By: Tyler Benitez on 12-17-2023 Lymphocytes Auto (Unsp spec) [#/Vol] 0.86 10*3/uL 0.83-4.51 [facility] Automated lymphocyte count a s percentage of total leukocytesOrdered By: Tyler Benitez on 12-17-2023 Lymphocytes/100 WBC Auto (Unsp spec) 10.6 % 19-41 [facility] Basophil percentageOrdered B y: Tyler Benitez on 12-17-2023 Basophils/100 WBC (Bld) 0.4 % 0-1 [facility] Bilirubin [Mass/Vol] 0.40 mg/dL 0.20-1.00 [facility] Comment on above: For patients on eltr ombopag therapy, use of Dimension [place] TBIL is not recommended. Chloride [Moles/Vol] 108 mmol/L 98-107 [facility] Eosinophils/100 WBC (Bld) 1.9 % 0-5 [facility] Glucose [Mass/Vol] 113 mg/dL 74-106 [facility] Comment on above: Fasting Glucose resu lt from 100 to 125 mg/dL suggests IMPAIRED HOMEOSTASIS per A.D.A. criteria. Hemoglobin (Bld) [Mass/Vol] 11.7 g/dL 12.0-15.0 [facility] Monocytes/100 WBC (Bld) 9.6 % 0-10 [facility] Neutrophils (Bld) [#/Vol] 6.3 10*3/uL 2.0-7.7 [facility] Neutrophils/100 WBC (Bld) 77.3 % 47-70 [facility] Potassium [Moles/Vol] 3.8 mmol/L 3.5-5.1 [facility] Protein [Mass/Vol] 7.1 g/dL 6.4-8.2 [facility] Sodium [Moles/Vol] 140 mmol/L 136-145 [facility] WBC (Bld) [#/Vol] 8.1 10*3/uL 4.4-11.0 [facility] Determination of erythrocyte mean corpuscular volume (MCV)Ordered By: Tyler Benitez on 12-17-2023 MCV (RBC) [Entitic vol] 88.3 fL 81-99 [facility] Erythrocyte distribution wid th ratioOrdered By: Tyler Benitez on 12-17-2023 Erythrocyte distribution width (RBC) [Ratio] 14.5 % 11.6-14.6 [facility] Erythrocyte distribution wid th standard deviationOrdered By: Tyler Benitez on 12-17-2023 Erythrocyte distribution width (RBC) [Entitic vol] 46.5 fL 35.1-43.9 [facility] Hematocrit Auto (Bld) [Volum e fraction]Ordered By: Tyler Benitez on 12-17-2023 Hematocrit (Bld) [Volume fraction] 37.6 % 37-47 [facility] Immature granulocytes/100 WB C Auto (Bld)Ordered By: Tyler Benitez on 12-17-2023 Immature granulocytes/100 WBC (Bld) 0.200 % 0.0-0.9 [facility] Comment on above: IG% - Immature Granu locytes (promyelocytes, myelocytes and metamyelocytes) > 1% indicates that a LEFT SHIFT is Present. Laboratory - Chemistry and C hemistry - challengeOrdered By: Tyler Benitez on 12-17-2023 Albumin/Globulin [Mass ratio] 0.7 {ratio} 0.9-2.4 [facility] ALP [Catalytic activity/Vol] 86 U/L 45-117 [facility] ALT [Catalytic activity/Vol] 12 U/L 13-56 [facility] CO2 [Moles/Vol] 28.0 mmol/L 21.0-32.0 [facility] Globulin (S) [Mass/Vol] 4.2 g/dL 2.2-4.2 [facility] Magnesium [Mass/Vol] 2.3 mg/dL 1.6-2.6 [facility] Natriuretic peptide B (Bld) [Mass/Vol] 119.1 pg/mL 0-100 [facility] Urea nitrogen/Creatinine [Mass ratio] 12.9 mg/mg 10-20 [facility] Laboratory - Hematology and Cell countsOrdered By: Tyler Benitez on 12-17-2023 MCH (RBC) [Entitic mass] 27.5 pg 27.0-32.0 [facility] MCHC (RBC) [Mass/Vol] 31.1 g/dL 32-36 [facility] Nucleated RBC/100 WBC (Bld) [Ratio] 0 % 0-5 [facility] Platelet mean volume (Bld) [Entitic vol] 10.3 fL 6.2-12.0 [facility] Platelets (Bld) [#/Vol] 187 10*3/uL 150-450 [facility] No Panel InformationOrdered By: Tyler Benitez on 12-17-2023 Estimated GFR (MDRD) Amer 57 mL/min >60 [facility] Comment on above: GFR Calc Estimated GFR (MDRD) Non-Af Amer 47 mL/min >60 [facility] Comment on above: Non- GFR Calc RBC Auto (Bld) [#/Vol]Ordere d By: Tyler Benitez on 12-17-2023 RBC (Bld) [#/Vol] 4.26 10*6/uL 4.2-5.4 [facility] Serum or plasma calcium lakeisha urement (mass/volume)Ordered By: Tyler Benitez on 12-17-2023 Calcium [Mass/Vol] 9.1 mg/dL 8.5-10.1 [facility] Serum or plasma creatinine m easurement (mass/volume)Ordered By: Tyler Benitez on 12-17-2023 Creatinine [Mass/Vol] 1.16 mg/dL 0.55-1.02 [facility] Comment on above: The validity of the calculated GFR & GFRAA in patients over 70 years has not been determined. Clinical correlation is essential. Serum or plasma urea nitroge n measurement (mass/volume)Ordered By: Tyler Benitez on 12-17-2023 Urea nitrogen [Mass/Vol] 15 mg/dL 7-18 [facility] Thin prep Papanicolaou smear with manual screeningOrdered By: Tyler Benitez on 12-17-2023 Thin prep Papanicolaou smear with manual screening 2.9 g/dL 3.2-5.0 [facility] Thin prep Papanicolaou smear with manual screening 12 U/L 15-37 [facility] Thin prep Papanicolaou smear with manual screening 4 5-15 [facility] No Panel Informationon 08-29 Influenza Types A,B Rapid (Clinic) Negative [facility] POC SARS CoV-2 Antigen Negative [facility] Absolute lymphocyte countOrd ered By: Tyler Benitez on 07-01-2023 Lymphocytes Auto (Unsp spec) [#/Vol] 1.24 10*3/uL 0.83-4.51 [facility] Basophil percentageOrdered B y: Tyler Benitez on 07-01-2023 Basophils/100 WBC (Bld) 0.9 % 0-[address] [facility] Bilirubin [Mass/Vol] 0.20 mg/dL 0.20-1.00 [facility] Comment on above: For patients on eltr ombopag therapy, use of Dimension [place] TBIL is not recommended. Chloride [Moles/Vol] 105 mmol/L 98-107 [facility] Eosinophils/100 WBC (Bld) 2.5 % 0-5 [facility] Glucose [Mass/Vol] 94 mg/dL 74-106 [facility] Neutrophils (Bld) [#/Vol] 3.6 10*3/uL 2.0-7.7 [facility] Neutrophils/100 WBC (Bld) 63.7 % 47-70 [facility] Potassium [Moles/Vol] 3.9 mmol/L 3.5-5.1 [facility] Protein [Mass/Vol] 7.3 g/dL 6.4-8.2 [facility] Sodium [Moles/Vol] 139 mmol/L 136-145 [facility] WBC (Bld) [#/Vol] 5.6 10*3/uL 4.4-11.0 [facility] Blood erythrocytes count (nu mber/volume)Ordered By: Tyler Benitez on 07-01-2023 RBC (Bld) [#/Vol] 3.98 10*6/uL 4.2-5.4 [facility] Blood hemoglobin measurement (mass/volume)Ordered By: Tyler Benitez on 07-01-2023 Hemoglobin (Bld) [Mass/Vol] 11.1 g/dL 12.0-15.0 [facility] Blood lymphocytes/100 leukoc ytesOrdered By: Tyler Benitez on 07-01-2023 Lymphocytes/100 WBC (Bld) 22.0 % 19-41 [facility] Blood monocytes/100 leukocyt esOrdered By: Tyler Benitez on 07-01-2023 Monocytes/100 WBC (Bld) 10.5 % 0-10 [facility] Blood platelet mean volumeOr dered By: Tyler Benitez on 07-01-2023 Platelet mean volume (Bld) [Entitic vol] 10.3 fL 6.2-12.0 [facility] Determination of erythrocyte mean corpuscular volume (MCV)Ordered By: Tyler Benitez on 07-01-2023 MCV (RBC) [Entitic vol] 89.9 fL 81-99 [facility] Hematocrit Auto (Bld) [Volum e fraction]Ordered By: Tyler Benitez on 07-01-2023 Hematocrit (Bld) [Volume fraction] 35.8 % 37-47 [facility] Laboratory - Chemistry and C hemistry - challengeOrdered By: Tyler Benitez on 07-01-2023 ALP [Catalytic activity/Vol] 83 U/L 45-117 [facility] ALT [Catalytic activity/Vol] 13 U/L 13-56 [facility] CO2 [Moles/Vol] 28.0 mmol/L 21.0-32.0 [facility] Globulin (S) [Mass/Vol] 4.4 g/dL 2.2-4.2 [facility] Magnesium [Mass/Vol] 2.5 mg/dL 1.6-2.6 [facility] Urea nitrogen/Creatinine [Mass ratio] 14.6 mg/mg 10-20 [facility] Laboratory - Hematology and Cell countsOrdered By: Tyler Benitez on 07-01-2023 Erythrocyte distribution width (RBC) [Entitic vol] 50.4 fL 35.1-43.9 [facility] Erythrocyte distribution width (RBC) [Ratio] 15.2 % 11.6-14.6 [facility] Immature granulocytes/100 WBC (Bld) 0.400 % 0.0-0.9 [facility] Comment on above: IG% - Immature Granu locytes (promyelocytes, myelocytes and metamyelocytes) > 1% indicates that a LEFT SHIFT is Present. MCH (RBC) [Entitic mass] 27.9 pg 27.0-32.0 [facility] Nucleated RBC/100 WBC (Bld) [Ratio] 0 % 0-5 [facility] MCHC Auto (RBC) [Mass/Vol]Or dered By: Tyler Benitez on 07-01-2023 MCHC (RBC) [Mass/Vol] 31.0 g/dL 32-36 [facility] No Panel InformationOrdered By: Tyler Benitez on 07-01-2023 Estimated GFR (MDRD) Amer 71 mL/min >60 [facility] Comment on above: GFR Calc Estimated GFR (MDRD) Non-Af Amer 59 mL/min >60 [facility] Comment on above: Non- GFR Calc Platelets bldOrdered By: Reyna Benitez on 07-01-2023 Platelets (Bld) [#/Vol] 221 10*3/uL 150-450 [facility] Serum or plasma albumin lakeisha urement (mass/volume)Ordered By: Tyler Benitez on 07-01-2023 Albumin [Mass/Vol] 2.9 g/dL 3.2-5.0 [facility] Serum or plasma albumin/glob ulin mass ratioOrdered By: Tyler Benitez on 07-01-2023 Albumin/Globulin [Mass ratio] 0.7 {ratio} 0.9-2.4 [facility] Serum or plasma calcium lakeisha urement (mass/volume)Ordered By: Tyler Benitez on 07-01-2023 Calcium [Mass/Vol] 9.1 mg/dL 8.5-10.1 [facility] Serum or plasma creatinine m easurement (mass/volume)Ordered By: Tyler Benitez on 07-01-2023 Creatinine [Mass/Vol] 0.96 mg/dL 0.55-1.02 [facility] Comment on above: The validity of the calculated GFR & GFRAA in patients over 70 years has not been determined. Clinical correlation is essential. Serum or plasma urea nitroge n measurement (mass/volume)Ordered By: Tyler Benitez on 07-01-2023 Urea nitrogen [Mass/Vol] 14 mg/dL 7-18 [facility] Thin prep Papanicolaou smear with manual screeningOrdered By: Tyler Benitez on 07-01-2023 Thin prep Papanicolaou smear with manual screening 14 U/L 15-37 [facility] Thin prep Papanicolaou smear with manual screening 6 5-15 [facility] Basophil percentageOrdered B y: Tyler Benitez on 06-18-2023 Chloride [Moles/Vol] 105 mmol/L 98-107 [facility] Glucose [Mass/Vol] 99 mg/dL 74-106 [facility] Potassium [Moles/Vol] 4.3 mmol/L 3.5-5.1 [facility] Sodium [Moles/Vol] 138 mmol/L 136-145 [facility] Laboratory - Chemistry and C hemistry - challengeOrdered By: Tyler Benitez on 06-18-2023 CO2 [Moles/Vol] 28.0 mmol/L 21.0-32.0 [facility] Urea nitrogen/Creatinine [Mass ratio] 15.7 mg/mg 10-20 [facility] No Panel InformationOrdered By: Tyler Benitez on 06-18-2023 Estimated GFR (MDRD) Amer 40 mL/min >60 [facility] Comment on above: GFR Calc Estimated GFR (MDRD) Non-Af Amer 33 mL/min >60 [facility] Comment on above: Non- GFR Calc Serum or plasma calcium lakeisha urement (mass/volume)Ordered By: Tyler Benitez on 06-18-2023 Calcium [Mass/Vol] 9.3 mg/dL 8.5-10.1 [facility] Serum or plasma creatinine m easurement (mass/volume)Ordered By: Tyler Benitez on 06-18-2023 Creatinine [Mass/Vol] 1.59 mg/dL 0.55-1.02 [facility] Comment on above: The validity of the calculated GFR & GFRAA in patients over 70 years has not been determined. Clinical correlation is essential. Serum or plasma urea nitroge n measurement (mass/volume)Ordered By: Tyler Benitez on 06-18-2023 Urea nitrogen [Mass/Vol] 25 mg/dL 7-18 [facility] Thin prep Papanicolaou smear with manual screeningOrdered By: Tyler Benitez on 06-18-2023 Thin prep Papanicolaou smear with manual screening 5 5-15 [facility] Basophil percentageOrdered B y: Tyler Benitez on 06-10-2023 Chloride [Moles/Vol] 98 mmol/L 98-107 [facility] Glucose [Mass/Vol] 90 mg/dL 74-106 [facility] Potassium [Moles/Vol] 4.2 mmol/L 3.5-5.1 [facility] Sodium [Moles/Vol] 133 mmol/L 136-145 [facility] - Chemistry and C hemistry - challengeOrdered By: Tyler Benitez on 06-10-2023 CO2 [Moles/Vol] 27.0 mmol/L 21.0-32.0 [facility] Magnesium [Mass/Vol] 2.8 mg/dL 1.6-2.6 [facility] Urea nitrogen/Creatinine [Mass ratio] 10.1 mg/mg 10-20 [facility] No Panel InformationOrdered By: Tyler Benitez on 06-10-2023 Estimated GFR (MDRD) Amer 17 mL/min >60 [facility] Comment on above: GFR Calc Estimated GFR (MDRD) Non-Af Amer 14 mL/min >60 [facility] Comment on above: Non- GFR Calc Serum or plasma calcium lakeisha urement (mass/volume)Ordered By: Tyler Benitez on 06-10-2023 Calcium [Mass/Vol] 9.5 mg/dL 8.5-10.1 [facility] Serum or plasma creatinine m easurement (mass/volume)Ordered By: Tyler Benitez on 06-10-2023 Creatinine [Mass/Vol] 3.36 mg/dL 0.55-1.02 [facility] Comment on above: The validity of the calculated GFR & GFRAA in patients over 70 years has not been determined. Clinical correlation is essential. Serum or plasma urea nitroge n measurement (mass/volume)Ordered By: Tyler Benitez on 06-10-2023 Urea nitrogen [Mass/Vol] 34 mg/dL 7-18 [facility] Thin prep Papanicolaou smear with manual screeningOrdered By: Tyler Benitez on 06-10-2023 Thin prep Papanicolaou smear with manual screening 8 5-15 [facility] Basophil percentageOrdered B y: Tyler Benitez on 06-03-2023 Chloride [Moles/Vol] 102 mmol/L 98-107 [facility] Glucose [Mass/Vol] 89 mg/dL 74-106 [facility] Potassium [Moles/Vol] 3.8 mmol/L 3.5-5.1 [facility] Sodium [Moles/Vol] 136 mmol/L 136-145 [facility] - Chemistry and C hemistry - challengeOrdered By: Tyler Benitez on 06-03-2023 CO2 [Moles/Vol] 28.0 mmol/L 21.0-32.0 [facility] Urea nitrogen/Creatinine [Mass ratio] 18.7 mg/mg 10-20 [facility] No Panel InformationOrdered By: Tyler Benitez on 06-03-2023 Estimated GFR (MDRD) Amer 63 mL/min >60 [facility] Comment on above: GFR Calc Estimated GFR (MDRD) Non-Af Amer 52 mL/min >60 [facility] Comment on above: Non- GFR Calc Serum or plasma calcium lakeisha urement (mass/volume)Ordered By: Tyler Benitez on 06-03-2023 Calcium [Mass/Vol] 9.3 mg/dL 8.5-10.1 [facility] Serum or plasma creatinine m easurement (mass/volume)Ordered By: Tyler Benitez on 06-03-2023 Creatinine [Mass/Vol] 1.07 mg/dL 0.55-1.02 [facility] Comment on above: The validity of the calculated GFR & GFRAA in patients over 70 years has not been determined. Clinical correlation is essential. Serum or plasma urea nitroge n measurement (mass/volume)Ordered By: Tyler Benitez on 06-03-2023 Urea nitrogen [Mass/Vol] 20 mg/dL 7-18 [facility] Thin prep Papanicolaou smear with manual screeningOrdered By: Tyler Benitez on 06-03-2023 Thin prep Papanicolaou smear with manual screening 6 5-15 [facility] Absolute lymphocyte countOrd ered By: Sage Augustin on 05-24-2023 Lymphocytes Auto (Unsp spec) [#/Vol] 0.36 10*3/uL 0.83-4.51 [facility] Basophil percentageOrdered B y: Sage Augustin on 05-24-2023 Basophils/100 WBC (Bld) 0.5 % 0-[address] [facility] Chloride [Moles/Vol] 108 mmol/L 98-107 [facility] Eosinophils/100 WBC (Bld) 2.5 % 0-5 [facility] Glucose [Mass/Vol] 100 mg/dL 74-106 [facility] Comment on above: Fasting Glucose resu lt from 100 to 125 mg/dL suggests IMPAIRED HOMEOSTASIS per A.D.A. criteria. Neutrophils (Bld) [#/Vol] 6.4 10*3/uL 2.0-7.7 [facility] Neutrophils/100 WBC (Bld) 85.4 % 47-70 [facility] Potassium [Moles/Vol] 4.6 mmol/L 3.5-5.1 [facility] Sodium [Moles/Vol] 138 mmol/L 136-145 [facility] WBC (Bld) [#/Vol] 7.5 10*3/uL 4.4-11.0 [facility] Blood erythrocytes count (nu mber/volume)Ordered By: Sage Augustin on 05-24-2023 RBC (Bld) [#/Vol] 4.14 10*6/uL 4.2-5.4 [facility] Blood hemoglobin measurement (mass/volume)Ordered By: Sage Augustin on 05-24-2023 Hemoglobin (Bld) [Mass/Vol] 11.5 g/dL 12.0-15.0 [facility] Blood lymphocytes/100 leukoc ytesOrdered By: Sage Augustin on 05-24-2023 Lymphocytes/100 WBC (Bld) 4.8 % 19-41 [facility] Blood manual differential co mment interpretation (narrative result)Ordered By: Sage Augustin on 05-24-2023 Manual differential comment Bryce (Bld) [Interp] COMMENT [facility] Comment on above: LYMPHOPENIA. Blood monocytes/100 leukocyt esOrdered By: Sage Augustin on 05-24-2023 Monocytes/100 WBC (Bld) 6.4 % 0-10 [facility] Blood platelet mean volumeOr dered By: Sage Augustin on 05-24-2023 Platelet mean volume (Bld) [Entitic vol] 9.8 fL 6.2-12.0 [facility] Determination of erythrocyte mean corpuscular volume (MCV)Ordered By: Sage Augustin on 05-24-2023 MCV (RBC) [Entitic vol] 90.3 fL 81-99 [facility] Hematocrit Auto (Bld) [Volum e fraction]Ordered By: Sage Augustin on 05-24-2023 Hematocrit (Bld) [Volume fraction] 37.4 % 37-47 [facility] Laboratory - Chemistry and C hemistry - challengeOrdered By: Sage Augustin on 05-24-2023 CO2 [Moles/Vol] 26.0 mmol/L 21.0-32.0 [facility] Urea nitrogen/Creatinine [Mass ratio] 15.3 mg/mg 10-20 [facility] Laboratory - Hematology and Cell countsOrdered By: Sage Augustin on 05-24-2023 Erythrocyte distribution width (RBC) [Entitic vol] 53.1 fL 35.1-43.9 [facility] Erythrocyte distribution width (RBC) [Ratio] 15.9 % 11.6-14.6 [facility] Immature granulocytes/100 WBC (Bld) 0.400 % 0.0-0.9 [facility] Comment on above: IG% - Immature Granu locytes (promyelocytes, myelocytes and metamyelocytes) > 1% indicates that a LEFT SHIFT is Present. MCH (RBC) [Entitic mass] 27.8 pg 27.0-32.0 [facility] Nucleated RBC/100 WBC (Bld) [Ratio] 0 % 0-5 [facility] MCHC Auto (RBC) [Mass/Vol]Or dered By: Sage Augustin on 05-24-2023 MCHC (RBC) [Mass/Vol] 30.7 g/dL 32-36 [facility] No Panel InformationOrdered By: Sage Augustin on 05-24-2023 Estimated Creatinine Clearance Calc 39.86 ml/min [facility] Estimated GFR (MDRD) Amer 47 mL/min >60 [facility] Comment on above: GFR Calc Estimated GFR (MDRD) Non-Af Amer 39 mL/min >60 [facility] Comment on above: Non- GFR Calc Platelets bldOrdered By: Katiuska Augustin on 05-24-2023 Platelets (Bld) [#/Vol] 216 10*3/uL 150-450 [facility] Serum or plasma calcium lakeisha urement (mass/volume)Ordered By: Sage Augustin on 05-24-2023 Calcium [Mass/Vol] 9.0 mg/dL 8.5-10.1 [facility] Serum or plasma creatinine m easurement (mass/volume)Ordered By: Sage Augustin on 05-24-2023 Creatinine [Mass/Vol] 1.37 mg/dL 0.55-1.02 [facility] Comment on above: The validity of the calculated GFR & GFRAA in patients over 70 years has not been determined. Clinical correlation is essential. Serum or plasma urea nitroge n measurement (mass/volume)Ordered By: Sage Augustin on 05-24-2023 Urea nitrogen [Mass/Vol] 21 mg/dL 7-18 [facility] Thin prep Papanicolaou smear with manual screeningOrdered By: Sage Augustin on 05-24-2023 Thin prep Papanicolaou smear with manual screening 4 5-15 [facility] Absolute lymphocyte countOrd ered By: Mariusz Waters on 04-16-2023 Lymphocytes Auto (Unsp spec) [#/Vol] 0.99 10*3/uL 0.83-4.51 [facility] Basophil percentageOrdered B y: Mariusz Waters on 04-16-2023 Basophil percentage 2.4 mg/dL 2.5-4.9 [facility] Basophils/100 WBC (Bld) 0.6 % 0-1 [facility] Chloride [Moles/Vol] 102 mmol/L 98-107 [facility] Eosinophils/100 WBC (Bld) 2.5 % 0-5 [facility] Glucose [Mass/Vol] 98 mg/dL 74-106 [facility] Neutrophils (Bld) [#/Vol] 4.3 10*3/uL 2.0-7.7 [facility] Neutrophils/100 WBC (Bld) 67.3 % 47-70 [facility] Potassium [Moles/Vol] 3.8 mmol/L 3.5-5.1 [facility] Sodium [Moles/Vol] 139 mmol/L 136-145 [facility] WBC (Bld) [#/Vol] 6.4 10*3/uL 4.4-11.0 [facility] Blood erythrocytes count (nu mber/volume)Ordered By: Mariusz Waters on 04-16-2023 RBC (Bld) [#/Vol] 3.52 10*6/uL 4.2-5.4 [facility] Blood hemoglobin measurement (mass/volume)Ordered By: Mariusz Waters on 04-16-2023 Hemoglobin (Bld) [Mass/Vol] 9.9 g/dL 12.0-15.0 [facility] Blood lymphocytes/100 leukoc ytesOrdered By: Mariusz Waters on 04-16-2023 Lymphocytes/100 WBC (Bld) 15.5 % 19-41 [facility] Blood monocytes/100 leukocyt esOrdered By: Mariusz Waters on 04-16-2023 Monocytes/100 WBC (Bld) 13.3 % 0-10 [facility] Blood platelet mean volumeOr dered By: Mariusz Waters on 04-16-2023 Platelet mean volume (Bld) [Entitic vol] 10.7 fL 6.2-12.0 [facility] Determination of erythrocyte mean corpuscular volume (MCV)Ordered By: Mariusz Waters on 04-16-2023 MCV (RBC) [Entitic vol] 89.2 fL 81-99 [facility] Hematocrit Auto (Bld) [Volum e fraction]Ordered By: Mariusz Waters on 04-16-2023 Hematocrit (Bld) [Volume fraction] 31.4 % 37-47 [facility] Laboratory - Chemistry and C hemistry - challengeOrdered By: Mariusz Waters on 04-16-2023 CO2 [Moles/Vol] 31.0 mmol/L 21.0-32.0 [facility] Urea nitrogen/Creatinine [Mass ratio] 11.3 mg/mg 10-20 [facility] Laboratory - Hematology and Cell countsOrdered By: Mariusz Waters on 04-16-2023 Erythrocyte distribution width (RBC) [Entitic vol] 48.6 fL 35.1-43.9 [facility] Erythrocyte distribution width (RBC) [Ratio] 15.1 % 11.6-14.6 [facility] Immature granulocytes/100 WBC (Bld) 0.800 % 0.0-0.9 [facility] Comment on above: IG% - Immature Granu locytes (promyelocytes, myelocytes and metamyelocytes) > 1% indicates that a LEFT SHIFT is Present. MCH (RBC) [Entitic mass] 28.1 pg 27.0-32.0 [facility] Nucleated RBC/100 WBC (Bld) [Ratio] 0 % 0-5 [facility] MCHC Auto (RBC) [Mass/Vol]Or dered By: Mariusz Waters on 04-16-2023 MCHC (RBC) [Mass/Vol] 31.5 g/dL 32-36 [facility] Comment on above: Delta: 29.6 on 04/15 No Panel InformationOrdered By: Mariusz Waters on 04-16-2023 Estimated Creatinine Clearance Calc 52.96 ml/min [facility] Estimated GFR (MDRD) Amer 89 mL/min >60 [facility] Comment on above: GFR Calc Estimated GFR (MDRD) Non-Af Amer 73 mL/min >60 [facility] Comment on above: Non- GFR Calc Platelets bldOrdered By: Mi Waters on 04-16-2023 Platelets (Bld) [#/Vol] 194 10*3/uL 150-450 [facility] Serum or plasma calcium lakeisha urement (mass/volume)Ordered By: Mariusz Waters on 04-16-2023 Calcium [Mass/Vol] 8.8 mg/dL 8.5-10.1 [facility] Serum or plasma creatinine m easurement (mass/volume)Ordered By: Mariusz Waters on 04-16-2023 Creatinine [Mass/Vol] 0.79 mg/dL 0.55-1.02 [facility] Comment on above: The validity of the calculated GFR & GFRAA in patients over 70 years has not been determined. Clinical correlation is essential. Serum or plasma urea nitroge n measurement (mass/volume)Ordered By: Mariusz Waters on 04-16-2023 Urea nitrogen [Mass/Vol] 9 mg/dL 7-18 [facility] Thin prep Papanicolaou smear with manual screeningOrdered By: Mariusz Waters on 04-16-2023 Thin prep Papanicolaou smear with manual screening 6 5-15 [facility] Absolute lymphocyte countOrd ered By: Kikomichelle Pittman on 04-15-2023 Lymphocytes Auto (Unsp spec) [#/Vol] 0.95 10*3/uL 0.83-4.51 [facility] Basophil percentageOrdered B y: Kikomichelle Pittman on 04-15-2023 Basophil percentage 0 SEEN /hpf 0-5 [facility] Lactate [Moles/Vol] 1.1 mmol/L 0.4-2.0 [facility] Basophils/100 WBC (Bld) 0.8 % 0-[address] [facility] Bilirubin [Mass/Vol] 0.50 mg/dL 0.20-1.00 [facility] Comment on above: For patients on eltr ombopag therapy, use of Dimension [place] TBIL is not recommended. Chloride [Moles/Vol] 100 mmol/L 98-107 [facility] Eosinophils/100 WBC (Bld) 3.6 % 0-5 [facility] Glucose [Mass/Vol] 91 mg/dL 74-106 [facility] Neutrophils (Bld) [#/Vol] 4.1 10*3/uL 2.0-7.7 [facility] Neutrophils/100 WBC (Bld) 66.9 % 47-70 [facility] Potassium [Moles/Vol] 4.2 mmol/L 3.5-5.1 [facility] Protein [Mass/Vol] 6.5 g/dL 6.4-8.2 [facility] Sodium [Moles/Vol] 136 mmol/L 136-145 [facility] WBC (Bld) [#/Vol] 6.1 10*3/uL 4.4-11.0 [facility] Bilirubin Test strip Ql (U)O rdered By: Kiko Pittman on 04-15-2023 Bilirubin Ql (U) Negative Negative [facility] Blood erythrocytes count (nu mber/volume)Ordered By: Kiko Pittman on 04-15-2023 RBC (Bld) [#/Vol] 3.82 10*6/uL 4.2-5.4 [facility] Blood hemoglobin measurement (mass/volume)Ordered By: Kiko Pittman on 04-15-2023 Hemoglobin (Bld) [Mass/Vol] 10.4 g/dL 12.0-15.0 [facility] Blood lymphocytes/100 leukoc ytesOrdered By: Kiko Pittman on 04-15-2023 Lymphocytes/100 WBC (Bld) 15.7 % 19-41 [facility] Blood manual differential co mment interpretation (narrative result)Ordered By: Kiko Pittman on 04-15-2023 Manual differential comment Bryce (Bld) [Interp] SCANNED [facility] Blood monocytes/100 leukocyt esOrdered By: Kiko Pittman on 04-15-2023 Monocytes/100 WBC (Bld) 12.0 % 0-10 [facility] Blood platelet mean volumeOr dered By: Kiko Pittman on 04-15-2023 Platelet mean volume (Bld) [Entitic vol] 11.1 fL 6.2-12.0 [facility] Determination of erythrocyte mean corpuscular volume (MCV)Ordered By: Kiko Pittman on 04-15-2023 MCV (RBC) [Entitic vol] 91.9 fL 81-99 [facility] Erythrocyte sedimentation ra teOrdered By: Mariusz Waters on 08-21-2023 ESR (Bld) [Velocity] 41 mm/h 0-30 [facility] Hematocrit Auto (Bld) [Volum e fraction]Ordered By: Kiko Pittman on 04-15-2023 Hematocrit (Bld) [Volume fraction] 35.1 % 37-47 [facility] Ketones Test strip Ql (U)Ord ered By: Kiko Pittman on 04-15-2023 Ketones Ql (U) Negative Negative [facility] Laboratory - Chemistry and C hemistry - challengeOrdered By: Kikomichelle Pittman on 04-15-2023 ALP [Catalytic activity/Vol] 76 U/L 45-117 [facility] ALT [Catalytic activity/Vol] 16 U/L 13-56 [facility] CO2 [Moles/Vol] 32.0 mmol/L 21.0-32.0 [facility] Globulin (S) [Mass/Vol] 4.2 g/dL 2.2-4.2 [facility] Urea nitrogen/Creatinine [Mass ratio] 11.7 mg/mg 10-20 [facility] Laboratory - Hematology and Cell countsOrdered By: Kikomichelle Pittman on 04-15-2023 Erythrocyte distribution width (RBC) [Entitic vol] 50.0 fL 35.1-43.9 [facility] Erythrocyte distribution width (RBC) [Ratio] 15.0 % 11.6-14.6 [facility] Immature granulocytes/100 WBC (Bld) 1.000 % 0.0-0.9 [facility] Comment on above: IG% - Immature Granu locytes (promyelocytes, myelocytes and metamyelocytes) > 1% indicates that a LEFT SHIFT is Present. MCH (RBC) [Entitic mass] 27.2 pg 27.0-32.0 [facility] Nucleated RBC/100 WBC (Bld) [Ratio] 0 % 0-5 [facility] MCHC Auto (RBC) [Mass/Vol]Or dered By: Kikomichelle Pittman on 04-15-2023 MCHC (RBC) [Mass/Vol] 29.6 g/dL 32-36 [facility] Mucus LM Ql (Urine sed)Order ed By: Kikomichelle Pittman on 04-15-2023 Mucus Ql (Urine sed) 0 SEEN /hpf [facility] Nitrite Test strip Ql (U)Ord ered By: Kiko Pittman on 04-15-2023 Nitrite Ql (U) Negative Negative [facility] No Panel InformationOrdered By: Kiko Pittman on 04-15-2023 Estimated GFR (MDRD) Amer 66 mL/min >60 [facility] Comment on above: GFR Calc Estimated GFR (MDRD) Non-Af Amer 54 mL/min >60 [facility] Comment on above: Non- GFR Calc Platelets bldOrdered By: Kiko Pittman on 04-15-2023 Platelets (Bld) [#/Vol] 169 10*3/uL 150-450 [facility] Protein Test strip Ql (U)Ord ered By: Kiko Pittman on 04-15-2023 Protein Ql (U) Negative Negative [facility] Serum or plasma C reactive p rotein measurement (mass/volume)Ordered By: Mariusz Waters on 04-15-2023 CRP [Mass/Vol] 14.90 mg/L 0.0-3.0 [facility] Comment on above: C-Reactive Protein ( CRP) provides useful information for thediagnosis, therapy and monitoring of inflammatory processesand associated diseases. For the evaluation of Relative Riskfor Cardiovascular Disease, a High Sensitivity CRP (HSCRP)should be ordered. Serum or plasma albumin lakeisha urement (mass/volume)Ordered By: Kiko Pittman on 04-15-2023 Albumin [Mass/Vol] 2.3 g/dL 3.2-5.0 [facility] Serum or plasma albumin/glob ulin mass ratioOrdered By: Kiko Pittman on 04-15-2023 Albumin/Globulin [Mass ratio] 0.5 {ratio} 0.9-2.4 [facility] Serum or plasma calcium lakeisha urement (mass/volume)Ordered By: Kiko Pittman on 04-15-2023 Calcium [Mass/Vol] 8.6 mg/dL 8.5-10.1 [facility] Serum or plasma creatinine m easurement (mass/volume)Ordered By: Kiko Pittman on 04-15-2023 Creatinine [Mass/Vol] 1.03 mg/dL 0.55-1.02 [facility] Comment on above: The validity of the calculated GFR & GFRAA in patients over 70 years has not been determined. Clinical correlation is essential. Serum or plasma urea nitroge n measurement (mass/volume)Ordered By: Kiko Pittman on 04-15-2023 Urea nitrogen [Mass/Vol] 12 mg/dL 7-18 [facility] Squamous epithelial cells de tection in urine sediment by light microscopyOrdered By: Kiko Pittman on 04-15-2023 Epithelial cells.squamous LM Ql (Urine sed) 0-5 SEEN /hpf 5-10 [facility] Thin prep Papanicolaou smear with manual screeningOrdered By: Kiko Pittman on 04-15-2023 Thin prep Papanicolaou smear with manual screening 22 U/L 15-37 [facility] Thin prep Papanicolaou smear with manual screening 4 5-15 [facility] Urine blood detectionOrdered By: Kiko Pittman on 04-15-2023 RBC Ql (U) Negative Negative [facility] RBC Ql (U) 0 SEEN /hpf 0-5 [facility] Urine clarityOrdered By: Kiko Pittman on 04-15-2023 Clarity (U) Sl. Cloudy Clear [facility] Urine color determinationOrd ered By: Kiko Pittman on 04-15-2023 Color (U) Yellow Yellow [facility] Urine glucose detectionOrder ed By: Kiko Pittman on 04-15-2023 Glucose Ql (U) 50 mg/dl Normal [facility] Urine leukocyte esterase det ection by dipstickOrdered By: Kiko Pittman on 04-15-2023 Leukocyte esterase Test strip Ql (U) 25 /ul Negative [facility] Urine pHOrdered By: Kiko torres on 04-15-2023 pH (U) 7.0 [pH] 5.0 - 8.0 [facility] Urine sediment bacteria coun t by microscopy (number/high power field)Ordered By: Kiko Pittman on 04-15-2023 Bacteria LM.HPF (Urine sed) [#/Area] 0 /[HPF] None Seen [facility] Urine specific gravity measu rementOrdered By: Kiko Pittman on 04-15-2023 Specific gravity (U) [Rel density] 1.005 1.002-1.03 0 [facility] Urobilinogen Auto test strip Ql (U)Ordered By: Kiko Pittman on 04-15-2023 Urobilinogen Ql (U) Normal mg/dl Normal [facility] Absolute lymphocyte countOrd ered By: Kiko Pittman on 04-04-2023 Lymphocytes Auto (Unsp spec) [#/Vol] 1.10 10*3/uL 0.83-4.51 [facility] Basophil percentageOrdered B y: Kiko Pittman on 04-04-2023 Basophils/100 WBC (Bld) 0.8 % 0-1 [facility] Chloride [Moles/Vol] 105 mmol/L 98-107 [facility] Eosinophils/100 WBC (Bld) 1.5 % 0-5 [facility] Glucose [Mass/Vol] 95 mg/dL 74-106 [facility] Neutrophils (Bld) [#/Vol] 4.5 10*3/uL 2.0-7.7 [facility] Neutrophils/100 WBC (Bld) 68.0 % 47-70 [facility] Potassium [Moles/Vol] 4.1 mmol/L 3.5-5.1 [facility] Sodium [Moles/Vol] 137 mmol/L 136-145 [facility] WBC (Bld) [#/Vol] 6.6 10*3/uL 4.4-11.0 [facility] Blood erythrocytes count (nu mber/volume)Ordered By: Kiko Pittman on 04-04-2023 RBC (Bld) [#/Vol] 3.42 10*6/uL 4.2-5.4 [facility] Blood hemoglobin measurement (mass/volume)Ordered By: Kiko Pittman on 04-04-2023 Hemoglobin (Bld) [Mass/Vol] 9.7 g/dL 12.0-15.0 [facility] Blood lymphocytes/100 leukoc ytesOrdered By: Kiko Pittman on 04-04-2023 Lymphocytes/100 WBC (Bld) 16.8 % 19-41 [facility] Blood monocytes/100 leukocyt esOrdered By: Kiko Pittman on 04-04-2023 Monocytes/100 WBC (Bld) 11.8 % 0-10 [facility] Blood platelet mean volumeOr dered By: Kiko Pittman on 04-04-2023 Platelet mean volume (Bld) [Entitic vol] 9.7 fL 6.2-12.0 [facility] Determination of erythrocyte mean corpuscular volume (MCV)Ordered By: Kiko Pittman on 04-04-2023 MCV (RBC) [Entitic vol] 91.8 fL 81-99 [facility] Hematocrit Auto (Bld) [Volum e fraction]Ordered By: Kiko Pittman on 04-04-2023 Hematocrit (Bld) [Volume fraction] 31.4 % 37-47 [facility] Laboratory - Chemistry and C hemistry - challengeOrdered By: Kikomichelle Pittman on 04-04-2023 CO2 [Moles/Vol] 24.0 mmol/L 21.0-32.0 [facility] Urea nitrogen/Creatinine [Mass ratio] 9.5 mg/mg 10-20 [facility] Laboratory - Hematology and Cell countsOrdered By: Kiko Pittman on 04-04-2023 Erythrocyte distribution width (RBC) [Entitic vol] 48.9 fL 35.1-43.9 [facility] Erythrocyte distribution width (RBC) [Ratio] 14.5 % 11.6-14.6 [facility] Immature granulocytes/100 WBC (Bld) 1.100 % 0.0-0.9 [facility] Comment on above: IG% - Immature Granu locytes (promyelocytes, myelocytes and metamyelocytes) > 1% indicates that a LEFT SHIFT is Present. MCH (RBC) [Entitic mass] 28.4 pg 27.0-32.0 [facility] Nucleated RBC/100 WBC (Bld) [Ratio] 0 % 0-5 [facility] MCHC Auto (RBC) [Mass/Vol]Or dered By: Kiko Pittman on 04-04-2023 MCHC (RBC) [Mass/Vol] 30.9 g/dL 32-36 [facility] No Panel InformationOrdered By: Kiko Pittman on 04-04-2023 Estimated Creatinine Clearance Calc 41.70 ml/min [facility] Estimated GFR (MDRD) Amer 47 mL/min >60 [facility] Comment on above: GFR Calc Estimated GFR (MDRD) Non-Af Amer 39 mL/min >60 [facility] Comment on above: Non- GFR Calc Platelets bldOrdered By: Kiko Pittman on 04-04-2023 Platelets (Bld) [#/Vol] 332 10*3/uL 150-450 [facility] Serum or plasma calcium lakeisha urement (mass/volume)Ordered By: Kiko Pittman on 04-04-2023 Calcium [Mass/Vol] 9.4 mg/dL 8.5-10.1 [facility] Serum or plasma creatinine m easurement (mass/volume)Ordered By: Kiko Pittman on 04-04-2023 Creatinine [Mass/Vol] 1.37 mg/dL 0.55-1.02 [facility] Comment on above: The validity of the calculated GFR & GFRAA in patients over 70 years has not been determined. Clinical correlation is essential. Serum or plasma urea nitroge n measurement (mass/volume)Ordered By: Kiko Pittman on 04-04-2023 Urea nitrogen [Mass/Vol] 13 mg/dL 7-18 [facility] Thin prep Papanicolaou smear with manual screeningOrdered By: Kiko Pittman on 04-04-2023 Thin prep Papanicolaou smear with manual screening 8 5-15 [facility] CBC panel Auto (Bld)on 04-01 Erythrocyte distribution width (RBC) [Ratio] 14.1 % Normal 11.5-15.0 [facility] Comment on above: Order Comment: Specveronica men Type: BLOOD SPECIMENOrdering Facility: [facility] Address: [address] [address] Performed By: #### 5 8410-2 ####[facility] [place] LABORATORYCLIA [id number] [address] [place] Hematocrit (Bld) [Volume fraction] 26.8 % Low 36.0-46.0 [facility] Comment on above: Order Comment: Kareni men Type: BLOOD SPECIMENOrdering Facility: [facility] Address: [address] [address] Performed By: #### 5 8410-2 ####[facility] LABORATORYCLIA [id number] [place] [address] [place] Hemoglobin (Bld) [Mass/Vol] 8.3 g/dL Low 11.5-15.5 [facility] Comment on above: Order Comment: Speci men Type: BLOOD SPECIMENOrdering Facility: [facility] Address: [address] [place] [address] Performed By: #### 5 8410-2 ####[facility] LABORATORYCLIA [id number] [address] MCH (RBC) [Entitic mass] 27.9 pg Normal 26.0-34.0 [facility] Comment on above: Order Comment: Speci men Type: BLOOD SPECIMENOrdering Facility: [facility] Address: [address] [place] [address] Performed By: #### 5 8410-2 ####[facility] LABORATORYCLIA [id number] [address] MCHC (RBC) [Mass/Vol] 31.0 g/dL Normal 30.5-36.0 [facility] Comment on above: Order Comment: Speci men Type: BLOOD SPECIMENOrdering Facility: [facility] Address: [address] [place] [address] Performed By: #### 5 8410-2 ####[facility] LABORATORYCLIA [id number] [address] MCV (RBC) [Entitic vol] 90.2 fL Normal 80.0-100.0 [facility] Comment on above: Order Comment: Speci men Type: BLOOD SPECIMENOrdering Facility: [facility] Address: [address] [place] [address] Performed By: #### 5 8410-2 ####[facility] LABORATORYCLIA [id number] [address] Nucleated RBC (Bld) [#/Vol] 10*3/uL Normal <0.01 [facility] Comment on above: Order Comment: Speci men Type: BLOOD SPECIMENOrdering Facility: [facility] Address: [address] [place] [address] Performed By: #### 5 8410-2 ####Z[facility] LABORATORYCLIA [id number] [place] [address] [place] Platelet mean volume (Bld) [Entitic vol] 10.2 fL Normal 9.0-12.7 [facility] Comment on above: Order Comment: Speci men Type: BLOOD SPECIMENOrdering Facility: [facility] Address: [address] [place] [address] Performed By: #### 5 8410-2 ####[facility] LABORATORYCLIA [id number] [address] [place] Platelets (Bld) [#/Vol] 334 10*3/uL Normal 150-400 [facility] Comment on above: Order Comment: Speci men Type: BLOOD SPECIMENOrdering Facility: [facility] Address: [address] [place] [address] Performed By: #### 5 8410-2 ####[facility] LABORATORYCLIA [id number] [address] RBC (Bld) [#/Vol] 2.97 10*6/uL Low 3.90-5.20 [facility] Comment on above: Order Comment: Speci men Type: BLOOD SPECIMENOrdering Facility: [facility] Address: [address] [place] [address] Performed By: #### 5 8410-2 ####[facility] LABORATORYCLIA [id number] [address] WBC (Bld) [#/Vol] 6.11 10*3/uL Normal 3.70-11.00 [facility] Comment on above: Order Comment: Speci men Type: BLOOD SPECIMENOrdering Facility: [facility] Address: [address] [place] [address] Performed By: #### 5 8410-2 ####[facility] LABORATORYCLIA [id number] [address] CNDSon 04-01-2023 CNDS HNO ID: [id number] Author: Chhaya Stacy MD Service: Hospital Medicine [...] Consulting: Willow Frank MD Primary Service: , [facility] Nurse Practitioner: Carmelita Myers APRN.[employer] MY CONDITION AT DISCHARGE: Stable REASON I [...] lymphedema specialist so she was discharged with [facility] to continue outpatient PT with her therapist.. [...] stated she is not. They agreed to excelsior picker later this evening. Patient was cleared for discharge on levaquin with outpatient physical therapist f/up /PCP.Lisinopril was resumed at discharge .[facility] outpatient renal function test during f/up with pcp Will call if there is any need to change antibiotic based on results SUMMARY OF WHAT HAPPENED WHILE I WAS IN THE HOSPITAL: See below OTHER PROBLEMS/DIAGNOSIS: Principal Problem: Sepsis not present on admission due to left lower extremity cellulitis. Lower extremity edema Active Problems: Hypopotassemia (POA) VICTORINO (acute kidney injury) ([facility]) Leg ulcer, left, limited to breakdown of skin (HCC) At high risk for impaired skin integrity Resolved Problems: * No resolved hospital problems. * OPERATIONS PERFORMED WHILE IN THE HOSPITAL: None IMPORTANT TEST/PROCEDURES: X-ray tibia/fibula Lower extremity ultrasound Chest x-ray TEST RESULTS NOT AVAILABLE AT THIS TIME: The plan for following up on pending results below is you (more content not included)... [facility] CONSULTon 04-01-2023 CONSULT HNO ID: [id number] Author: Carmelita Myers APRN.CNP Service: Wound/Ostomy Author [...] treatment with wraps every Saturday in the [facility]. About 2 weeks ago she noticed LLE redness and pain and was treated at [facility] from 03/17-03/19/23 for LLE cellulitis. She was [...] recent labs a (more content not included)... [facility] CONSULT PROGon 04-01-2023 CONSULT PROG HNO ID: [id number] Author: Tania Simeon RPh Service: Pharmacy Author [...] Tania Simeon RPh DATE/TIME: 04/01/2023 10:[address] [facility] CONSULT PROG HNO ID: [id number] Author: Willow Frank MD Service: Infectious Disease [...] final until Authenticated by responsible provider. Normal [facility] Comprehensive metabolic 2000 panelon 04-01-2023 Albumin [Mass/Vol] 2.3 g/dL Low 3.9-4.9 [facility] Comment on above: Order Comment: Speci dank Type: BLOOD SPECIMEN [facility] Address: [address] [address] Performed By: #### L [id number] #### [facility] CLIA [id number] [address] OF [facility] ALP [Catalytic activity/Vol] 66 U/L Normal 34-123 [facility] Comment on above: Order Comment: Kareni dank Type: BLOOD SPECIMEN [facility] Address: [address] [address] Performed By: #### L [id number] #### [facility] CLIA [id number] [address] ALT [Catalytic activity/Vol] U/L Low 7-38 [facility] Comment on above: Order Comment: Speci men Type: BLOOD SPECIMEN [facility] Address: [address] [address] Performed By: #### L [id number] #### [facility] CLIA [id number] [address] [place] [address] [place] Anion gap [Moles/Vol] 8 mmol/L Low 9-18 [facility] Comment on above: Order Comment: Speci men Type: BLOOD SPECIMEN [facility] Address: [address] [address] Performed By: #### L [id number] #### [facility] CLIA [id number] [address] [place] AST [Catalytic activity/Vol] 13 U/L Normal 13-35 [facility] Comment on above: Order Comment: Speci men Type: BLOOD SPECIMEN [facility] Address: [address] [address] Performed By: #### L [id number] #### [facility] CLIA [id number] [address] [place] Bilirubin [Mass/Vol] 0.2 mg/dL Normal 0.2-1.3 [facility] Comment on above: Order Comment: Speci men Type: BLOOD SPECIMEN [facility] Address: [address] [address] Performed By: #### L [id number] #### [facility] CLIA [id number] [address] Calcium [Mass/Vol] 8.6 mg/dL Normal 8.5-10.2 [facility] Comment on above: Order Comment: Speci men Type: BLOOD SPECIMEN [facility] Address: [address] [address] Performed By: #### L [id number] #### [facility] CLIA [id number] [address] STATES [facility] Chloride [Moles/Vol] 105 mmol/L Normal 97-105 [facility] Comment on above: Order Comment: Specveronica men Type: BLOOD SPECIMEN [facility] Address: [address] [place] [address] Performed By: #### L [id number] #### [facility] CLIA [id number] [address] CO2 [Moles/Vol] 27 mmol/L Normal 22-30 [facility] Comment on above: Order Comment: Speci men Type: BLOOD SPECIMEN [facility] Address: [address] [place] [address] Performed By: #### L [id number] #### [facility] CLIA [id number] [address] Creatinine [Mass/Vol] 0.95 mg/dL Normal 0.58-0.96 [facility] Comment on above: Order Comment: Speci men Type: BLOOD SPECIMEN [facility] Address: [address] [place] [address] Performed By: #### L [id number] #### [facility] CLIA [id number] [address] ESTIMATED GLOMERULAR FILTRATION RATE 59 mL/min/1.73m??? Low >=60 [facility] Comment on above: Order Comment: Jean men Type: BLOOD SPECIMEN [facility] Address: [address] [place] [address] Result Comment: Harika mated Glomerular Filtration Rate [...] reflect actual GFR. Performed By: #### L [id number] #### [facility] CLIA [id number] [address] [place] [address] [place] Glucose [Mass/Vol] 88 mg/dL Normal 74-99 [facility] Comment on above: Order Comment: Jean weems Type: BLOOD SPECIMEN [facility] Address: [address] [place] [address] Result Comment: The [place] Diabetes Association (ADA) provides guidance for cutoff [...] Standards of Medical Care in Diabetes 2016, [place] Diabetes Association. Diabetes Care. 2016.39(Suppl 1). Performed By: #### L [id number] #### [facility] CLIA [id number] [address] [place] [address] [place] Potassium [Moles/Vol] 4.5 mmol/L Normal 3.7-5.1 [facility] Comment on above: Order Comment: Jean weems Type: BLOOD SPECIMEN [facility] Address: [address] [place] [address] Performed By: #### L [id number] #### [facility] CLIA [id number] [address] [place] [address] [place] Protein [Mass/Vol] 5.7 g/dL Low 6.3-8.0 [facility] Comment on above: Order Comment: Jean weems Type: BLOOD SPECIMEN [facility] Address: [address] [place] [address] Performed By: #### L [id number] #### [facility] CLIA [id number] [address] [place] [address] [place] Sodium [Moles/Vol] 140 mmol/L Normal 136-144 [facility] Comment on above: Order Comment: Kareni men Type: BLOOD SPECIMEN [facility] Address: [address] [place] [address] Performed By: #### L [id number], 1987-12 #### [facility] CLIA [id number] [address] STATES OF [facility] Urea nitrogen [Mass/Vol] 9 mg/dL Normal 7-21 [facility] Comment on above: Order Comment: Speci men Type: BLOOD SPECIMEN [facility] Address: [address] [place] [address] Performed By: #### L [id number], 1987-12 #### [facility] CLIA [id number] [address] [place] Magnesium SerPl-mCncon 04-01 Magnesium [Mass/Vol] 1.8 mg/dL Normal 1.7-2.3 [facility] Comment on above: Order Comment: Speci men Type: BLOOD SPECIMEN [facility] Address: [address] [place] [address] Performed By: #### L [id number], 1987-12 #### [facility] CLIA [id number] [address] [place] THERAPY NTon 04-01-2023 THERAPY NT HNO ID: [id number] Author: Ros Moore PT Service: Physical Therapy Author Type: Physical Therapist Type: Therapy (PT/OT/Speech/Resp) Filed: 04/01/2023 11:56 AM Note Text: Physical Therapy Evaluation SERVICE DATE: 04/01/2023 SERVICE TIME: 0950 to 1118 ROOM: [address] [address] Recommended Discharge Disposition: Home PT Recommended Discharge [...] unwell. 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 friend does all driving. denies falls.sleeps in [...] use, s (more content not included)... Normal [facility] CBC panel Auto (Bld)on 03-31 Erythrocyte distribution width (RBC) [Ratio] 14.1 % Normal 11.5-15.0 [facility] Comment on above: Order Comment: Speci men Type: BLOOD SPECIMEN [facility] Address: [address] [address] Performed By: #### L [id number] #### [facility] CLIA [id number] [address] [id number] [facility] Hematocrit (Bld) [Volume fraction] 27.2 % Low 36.0-46.0 [facility] Comment on above: Order Comment: Speci men Type: BLOOD SPECIMEN [facility] Address: [address] [place] [address] Performed By: #### L [id number] #### [facility] CLIA [id number] [address] [place] Hemoglobin (Bld) [Mass/Vol] 8.5 g/dL Low 11.5-15.5 [facility] Comment on above: Order Comment: Speci men Type: BLOOD SPECIMEN [facility] Address: [address] [place] [address] Performed By: #### L [id number] #### [facility] CLIA [id number] [address] OF [facility] MCH (RBC) [Entitic mass] 27.4 pg Normal 26.0-34.0 [facility] Comment on above: Order Comment: Speci men Type: BLOOD SPECIMEN [facility] Address: [address] [place] [address] Performed By: #### L [id number] #### [facility] CLIA [id number] [address] MCHC (RBC) [Mass/Vol] 31.3 g/dL Normal 30.5-36.0 [facility] Comment on above: Order Comment: Speci men Type: BLOOD SPECIMEN [facility] Address: [address] [place] [address] Performed By: #### L [id number] #### [facility] CLIA [id number] [address] MCV (RBC) [Entitic vol] 87.7 fL Normal 80.0-100.0 [facility] Comment on above: Order Comment: Speci men Type: BLOOD SPECIMEN [facility] Address: [address] [place] [address] Performed By: #### L [id number] #### [facility] CLIA [id number] [address] Nucleated RBC (Bld) [#/Vol] 10*3/uL Normal <0.01 [facility] Comment on above: Order Comment: Speci men Type: BLOOD SPECIMEN [facility] Address: [facility] [address] Performed By: #### L [id number], 1987-12 #### [facility] CLIA [id number] [address] [place] Platelet mean volume (Bld) [Entitic vol] 10.2 fL Normal 9.0-12.7 [facility] Comment on above: Order Comment: Speci men Type: BLOOD SPECIMEN [facility] Address: [address] [address] Performed By: #### L [id number] #### [facility] CLIA [id number] [address] [place] Platelets (Bld) [#/Vol] 374 10*3/uL Normal 150-400 [facility] Comment on above: Order Comment: Speci men Type: BLOOD SPECIMEN [facility] Address: [address] [address] Performed By: #### L [id number] #### [facility] CLIA [id number] [address] [place] [address] [place] RBC (Bld) [#/Vol] 3.10 10*6/uL Low 3.90-5.20 [facility] Comment on above: Order Comment: Speci men Type: BLOOD SPECIMEN [facility] Address: [address] Performed By: #### L [id number], 1987-12 #### [facility] CLIA [id number] [address] [place] WBC (Bld) [#/Vol] 7.27 10*3/uL Normal 3.70-11.00 [facility] Comment on above: Order Comment: Speci men Type: BLOOD SPECIMEN [facility] Address: [address] [place] [address] Performed By: #### L [id number] #### [facility] CLIA [id number] [address] [place] [address] [facility] [place] Comprehensive metabolic 2000 panelon 03-31-2023 Albumin [Mass/Vol] 2.4 g/dL Low 3.9-4.9 [facility] Comment on above: Order Comment: Speci men Type: BLOOD SPECIMEN [facility] Address: [address] [place] [address] Performed By: #### 4 091-5 #### [facility] CLIA [id number] [address] [place] [address] [facility] [place] ALP [Catalytic activity/Vol] 69 U/L Normal 34-123 [facility] Comment on above: Order Comment: Speci men Type: BLOOD SPECIMEN [facility] Address: [address] [place] [address] Performed By: #### 4 091-5 #### [facility] CLIA [id number] [address] ALT [Catalytic activity/Vol] 7 U/L Normal 7-38 [facility] Comment on above: Order Comment: Speci men Type: BLOOD SPECIMEN [facility] Address: [address] [place] [address] Performed By: #### 4 091-5 #### [facility] CLIA [id number] [address] Anion gap [Moles/Vol] 9 mmol/L Normal 9-18 [facility] Comment on above: Order Comment: Speci men Type: BLOOD SPECIMEN [facility] Address: [address] [address] Performed By: #### 4 091-5 #### [facility] CLIA [id number] [address] AST [Catalytic activity/Vol] 13 U/L Normal 13-35 [facility] Comment on above: Order Comment: Speci men Type: BLOOD SPECIMEN [facility] Address: [address] [place] [address] Performed By: #### 4 091-5 #### [facility] CLIA [id number] [address] [place] [address] [place] Bilirubin [Mass/Vol] 0.2 mg/dL Normal 0.2-1.3 [facility] Comment on above: Order Comment: Speci men Type: BLOOD SPECIMEN [facility] Address: [address] [place] [address] Performed By: #### 4 091-5 #### [facility] CLIA [id number] [address] [place] [address] [place] Calcium [Mass/Vol] 8.4 mg/dL Low 8.5-10.2 [facility] Comment on above: Order Comment: Speci men Type: BLOOD SPECIMEN [facility] Address: [address] [place] [address] Performed By: #### 4 091-5 #### [facility] CLIA [id number] [address] [place] Chloride [Moles/Vol] 104 mmol/L Normal 97-105 [facility] Comment on above: Order Comment: Speci men Type: BLOOD SPECIMEN [facility] Address: [address] [place] [address] Performed By: #### 4 091-5 #### [facility] CLIA [id number] [address] [place] [address] [place] CO2 [Moles/Vol] 29 mmol/L Normal 22-30 [facility] Comment on above: Order Comment: Speci men Type: BLOOD SPECIMEN [facility] Address: [address] [place] [address] Performed By: #### 4 091-5 #### [facility] CLIA [id number] [address] [place] [address] [place] Creatinine [Mass/Vol] 0.99 mg/dL High 0.58-0.96 [facility] Comment on above: Order Comment: Speci men Type: BLOOD SPECIMEN [facility] Address: [address] [place] [address] Performed By: #### 4 091-5 #### [facility] CLIA [id number] [address] [place] [address] [place] ESTIMATED GLOMERULAR FILTRATION RATE 56 mL/min/1.73m??? Low >=60 [facility] Comment on above: Order Comment: Jean weems Type: BLOOD SPECIMEN [facility] Address: [address] [address] Result Comment: Harika mated Glomerular Filtration Rate [...] GFR. Performed By: #### 4 091-5 #### [facility] CLIA [id number] [address] [place] [address] [place] Glucose [Mass/Vol] 114 mg/dL High 74-99 [facility] Comment on above: Order Comment: Jean weems Type: BLOOD SPECIMEN [facility] Address: [address] [place] [address] Result Comment: The [place] Diabetes Association (ADA) provides guidance for cutoff [...] Standards of Medical Care in Diabetes 2016, [place] Diabetes Association. Diabetes Care. 2016.39(Suppl 1). Performed By: #### 4 091-5 #### [facility] CLIA [id number] [address] [place] [address] [place] Potassium [Moles/Vol] 3.3 mmol/L Low 3.7-5.1 [facility] Comment on above: Order Comment: Jean weems Type: BLOOD SPECIMEN [facility] Address: [address] Performed By: #### 4 091-5 #### [facility] CLIA [id number] [address] [place] Protein [Mass/Vol] 5.8 g/dL Low 6.3-8.0 [facility] Comment on above: Order Comment: Speci men Type: BLOOD SPECIMEN [facility] Address: [address] [place] [address] Performed By: #### 4 091-5 #### [facility] CLIA [id number] [address] Sodium [Moles/Vol] 142 mmol/L Normal 136-144 [facility] Comment on above: Order Comment: Speci men Type: BLOOD SPECIMEN [facility] Address: [address] [place] [address] Performed By: #### 4 091-5 #### [facility] CLIA [id number] [address] Urea nitrogen [Mass/Vol] 12 mg/dL Normal 7-21 [facility] Comment on above: Order Comment: Speci men Type: BLOOD SPECIMEN [facility] Address: [address] [place] [address] Performed By: #### 4 091-5 #### [facility] CLIA [id number] [address] Magnesium SerPl-mCncon 03-31 Magnesium [Mass/Vol] 1.8 mg/dL Normal 1.7-2.3 [facility] Comment on above: Order Comment: Speci men Type: BLOOD SPECIMEN [facility] Address: [address] [place] [address] Performed By: #### 4 091-5 #### [facility] CLIA [id number] [address] [place] ALLIED HEALTHon 03-30-2023 ALLIED HEALTH HNO ID: [id number] Author: Anjali Pruett RT(Danitza) Service: ? Author [...] RT Waldo(R) March 30, 2023 9:[address] [facility] Bacteria Bld Culton 03-30-20 23 Bacteria identified Cx Nom (Bld) CULTURE, BLOOD: No growth [address] [facility] Comment on above: Performed By: #### 6 00-7 ####[facility] LABCLIA [id number] [address] Bacteria identified Cx Nom (Bld) CULTURE, BLOOD: No growth [address] [facility] Comment on above: Performed By: #### 6 00-7 ####[facility] LABCLIA [id number] [address] [place] Bacteria Wnd Culton 03-30-20 [...] , Intermediate >.5 , Resistant >1 Abnormal [facility] Comment on above: Performed By: #### 6 462-6 ####[facility] LABCLIA [id number] [address] STATES [place] CASE MGT INIT ASSES 2022 CASE MGT INIT ASS HNO ID: [id number] Author: Valery Roth RN Service: ? Author Type: Registered Nurse Type: Care Mgt Initial Assessment Filed: 03/30/2023 9:22 AM Note Text: CARE MANAGEMENT: ASSESSMENT AND DISCHARGE PLAN SERVICE DATE: March 30, 2023 SERVICE TIME: 9:16 AM land leases and rentals manager spoke with patient at bedside to complete Care Management Assessment. Introduction made and role of Care Management explained. PCP: Tyler Benitez MD - Patient confirmed Primary Contact: Primary Emergency Contact: Patrizia John Address: [address] [place] [address] [place] Relation: Caregiver Secondary Emergency [...] Support: Other: See Comment Caregiver: Patrizia John [phone] - Patient states she was staying at [...] Patient Goal(s): Be able to go home [place] Explained: [place] Given: No (Discharge Needs: To [...] Bars at home. Discharge Pharmacy - [facility] [place] confirmed by patient. Discharge Transportation: [place] Or Amy Baxter. dept to follow. SIGNATURE: Valery Roth RN PATIENT NAME: Amber Koroma DATE: March 30, 2023 TIME: 9:16 AM CONTACT #: [phone] Normal [facility] CBC panel Auto (Bld)on 03-30 Erythrocyte distribution width (RBC) [Ratio] 14.0 % Normal 11.5-15.0 [facility] Comment on above: Order Comment: Speci men Type: BLOOD SPECIMEN Ordering Facility: [facility] Address: [address] [place] [address] Performed By: #### 4 091-5 #### [facility] CLIA [id number] [address] [facility] Hematocrit (Bld) [Volume fraction] 25.1 % Low 36.0-46.0 [facility] Comment on above: Order Comment: Speci men Type: BLOOD SPECIMEN Ordering Facility: [facility] Address: [address] [address] Performed By: #### 4 091-5 #### [facility] CLIA [id number] [address] [facility] Hemoglobin (Bld) [Mass/Vol] 8.0 g/dL Low 11.5-15.5 [facility] Comment on above: Order Comment: Speci men Type: BLOOD SPECIMEN Ordering Facility: [facility] Address: [address] [place] [address] Performed By: #### 4 091-5 #### [facility] CLIA [id number] [address] MCH (RBC) [Entitic mass] 27.7 pg Normal 26.0-34.0 [facility] Comment on above: Order Comment: Speci men Type: BLOOD SPECIMEN Ordering Facility: [facility] Address: [address] [place] [address] Performed By: #### 4 091-5 #### [facility] CLIA [id number] [address] MCHC (RBC) [Mass/Vol] 31.9 g/dL Normal 30.5-36.0 [facility] Comment on above: Order Comment: Speci men Type: BLOOD SPECIMEN Ordering Facility: [facility] Address: [address] [place] [address] Performed By: #### 4 091-5 #### [facility] CLIA [id number] [address] MCV (RBC) [Entitic vol] 86.9 fL Normal 80.0-100.0 [facility] Comment on above: Order Comment: Speci men Type: BLOOD SPECIMEN Ordering Facility: [facility] Address: [address] [address] Performed By: #### 4 091-5 #### [facility] CLIA [id number] [address] [place] [address] [place] Nucleated RBC (Bld) [#/Vol] 10*3/uL Normal <0.01 [facility] Comment on above: Order Comment: Speci men Type: BLOOD SPECIMEN Ordering Facility: [facility] Address: [address] [address] Performed By: #### 4 091-5 #### [facility] CLIA [id number] [address] [place] [address] [place] Platelet mean volume (Bld) [Entitic vol] 10.3 fL Normal 9.0-12.7 [facility] Comment on above: Order Comment: Speci men Type: BLOOD SPECIMEN Ordering Facility: [facility] Address: [address] Performed By: #### 4 091-5 #### [facility] CLIA [id number] [address] [place] [address] [place] Platelets (Bld) [#/Vol] 338 10*3/uL Normal 150-400 [facility] Comment on above: Order Comment: Speci men Type: BLOOD SPECIMEN Ordering Facility: [facility] Address: [address] Performed By: #### 4 091-5 #### [facility] CLIA [id number] [address] [place] [address] [place] RBC (Bld) [#/Vol] 2.89 10*6/uL Low 3.90-5.20 [facility] Comment on above: Order Comment: Speci men Type: BLOOD SPECIMEN Ordering Facility: [facility] Address: [address] [address] Performed By: #### 4 091-5 #### [facility] CLIA [id number] [address] [id number] [place] WBC (Bld) [#/Vol] 6.96 10*3/uL Normal 3.70-11.00 [facility] Comment on above: Order Comment: Speci men Type: BLOOD SPECIMEN Ordering Facility: [facility] Address: [place] [address] Performed By: #### 4 091-5 #### [facility] CLIA [id number] [address] [place] [address] [facility] [place] CONSULTon 03-30-2023 CONSULT HNO ID: [id number] Author: Jamaal Holman APRN.[employer] Service: Infectious Disease Author Type: Nurse Practitioner [...] on her LLE. Patient reportedly seen at [facility] on 03/17 with left leg cellulitis - [...] c/d/i DATA: Diagnostic (more content not included)... [facility] CONSULT PROGon 03-30-2023 CONSULT PROG HNO ID: [id number] Author: Gayle Whitley RPh Service: Pharmacy Author [...] Gayle Whitley RPh DATE/TIME: 03/30/2023 5:[address] [facility] CONSULT PROG HNO ID: [id number] Author: Gayle Whitley RPh Service: Pharmacy Author [...] pharmacy if there are questions. Gayle Whitley [facility] Comprehensive metabolic 2000 panelon 03-30-2023 Albumin [Mass/Vol] 2.2 g/dL Low 3.9-4.9 [facility] Comment on above: Order Comment: Specveronica weems Type: BLOOD SPECIMEN Ordering Facility: [facility] Address: [address] [place] [address] Performed By: #### L [id number] #### [facility] CLIA [id number] [address] ALP [Catalytic activity/Vol] 64 U/L Normal 34-123 [facility] Comment on above: Order Comment: Jean ewems Type: BLOOD SPECIMEN Ordering Facility: [facility] Address: [address] [place] [address] Performed By: #### L [id number] #### [facility] CLIA [id number] [address] [place] ALT [Catalytic activity/Vol] 7 U/L Normal 7-38 [facility] Comment on above: Order Comment: Jean weems Type: BLOOD SPECIMEN Ordering Facility: [facility] Address: [address] [place] [address] Performed By: #### L [id number] #### [facility] CLIA [id number] [address] [place] [address] [place] Anion gap [Moles/Vol] 8 mmol/L Low 9-18 [facility] Comment on above: Order Comment: Speci men Type: BLOOD SPECIMEN Ordering Facility: [facility] Address: [address] [address] Performed By: #### L [id number], 1987-12 #### [facility] CLIA [id number] [address] [place] [address] [place] AST [Catalytic activity/Vol] 12 U/L Low 13-35 [facility] Comment on above: Order Comment: Speci men Type: BLOOD SPECIMEN Ordering Facility: [facility] Address: [address] [place] [address] Performed By: #### L [id number] #### [facility] CLIA [id number] [address] [place] [address] [place] Bilirubin [Mass/Vol] 0.3 mg/dL Normal 0.2-1.3 [facility] Comment on above: Order Comment: Speci men Type: BLOOD SPECIMEN Ordering Facility: [facility] Address: [address] [place] [address] Performed By: #### L [id number] #### [facility] CLIA [id number] [address] [place] [address] [place] Calcium [Mass/Vol] 8.2 mg/dL Low 8.5-10.2 [facility] Comment on above: Order Comment: Speci men Type: BLOOD SPECIMEN Ordering Facility: [facility] Address: [address] [place] [address] Performed By: #### L [id number] #### [facility] CLIA [id number] [address] [place] [address] [place] Chloride [Moles/Vol] 103 mmol/L Normal 97-105 [facility] Comment on above: Order Comment: Speci men Type: BLOOD SPECIMEN Ordering Facility: [facility] Address: [address] [place] [address] Performed By: #### L [id number] #### [facility] CLIA [id number] [address] [place] [address] [place] CO2 [Moles/Vol] 30 mmol/L Normal 22-30 [facility] Comment on above: Order Comment: Jean weems Type: BLOOD SPECIMEN Ordering Facility: [facility] Address: [address] [address] Performed By: #### L [id number] #### [facility] CLIA [id number] [address] STATES [facility] Creatinine [Mass/Vol] 1.14 mg/dL High 0.58-0.96 [facility] Comment on above: Order Comment: Jean weems Type: BLOOD SPECIMEN Ordering Facility: [facility] Address: [address] [address] Performed By: #### L [id number] #### [facility] CLIA [id number] [address] ESTIMATED GLOMERULAR FILTRATION RATE 48 mL/min/1.73m??? Low >=60 [facility] Comment on above: Order Comment: Jean weems Type: BLOOD SPECIMEN Ordering Facility: [facility] Address: [address] [place] [address] Result Comment: Harika mated Glomerular Filtration Rate [...] reflect actual GFR. Performed By: #### L [id number] #### [facility] CLIA [id number] [address] Glucose [Mass/Vol] 87 mg/dL Normal 74-99 [facility] Comment on above: Order Comment: Jean dank Type: BLOOD SPECIMEN Ordering Facility: [facility] Address: [address] [place] [address] Result Comment: The [place] Diabetes Association (ADA) provides guidance for cutoff [...] Standards of Medical Care in Diabetes 2016, [place] Diabetes Association. Diabetes Care. 2016.39(Suppl 1). Performed By: #### L [id number] #### [facility] CLIA [id number] [address] Potassium [Moles/Vol] 3.3 mmol/L Low 3.7-5.1 [facility] Comment on above: Order Comment: Jean weems Type: BLOOD SPECIMEN Ordering Facility: [facility] Address: [address] [place] [address] Performed By: #### L [id number] #### [facility] CLIA [id number] [address] [place] [address] [place] Protein [Mass/Vol] 5.5 g/dL Low 6.3-8.0 [facility] Comment on above: Order Comment: Jean weems Type: BLOOD SPECIMEN Ordering Facility: [facility] Address: [address] [place] [address] Performed By: #### L [id number] #### [facility] CLIA [id number] [address] Sodium [Moles/Vol] 141 mmol/L Normal 136-144 [facility] Comment on above: Order Comment: Jean weems Type: BLOOD SPECIMEN Ordering Facility: [facility] Address: [address] [place] [address] Performed By: #### L [id number] #### [facility] CLIA [id number] [address] STATES [place] Urea nitrogen [Mass/Vol] 14 mg/dL Normal 7-21 [facility] Comment on above: Order Comment: Jean weems Type: BLOOD SPECIMEN Ordering Facility: [facility] Address: [address] [place] [address] Performed By: #### L [id number], 1987-12 #### [facility] CLIA [id number] [address] [id number] [place] Creatinine Unsp time (U) [Ma ss/Vol]on 03-30-2023 Creatinine (U) [Mass/Vol] 89.0 mg/dL Normal 20.0-300.0 [facility] Comment on above: Order Comment: Speci men Type: BLOOD SPECIMEN Ordering Facility: [facility] Address: [address] [place] [address] Performed By: #### 4 091-5 #### [facility] CLIA [id number] [address] [place] ESR Westergren method (Bld) [Velocity]on 03-30-2023 ESR (Bld) [Velocity] 98 mm/h High 0-20 [facility] Comment on above: Order Comment: Speci men Type: BLOOD SPECIMENOrdering Facility: [facility] Address: [address] [place] [address] Performed By: #### 4 537-7 ####[facility] [id number] [address] OF [place] HISTORY PHYSICALon HISTORY PHYSICAL HNO ID: [id number] Author: Tu Greer DO Service: Hospital Medicine Author Type: Physician Type: HANDP Filed: 03/30/2023 3:15 AM Note Text: DEPARTMENT OF HOSPITAL MEDICINE HISTORY AND PHYSICAL EXAM SERVICE DATE: 03/30/2023 SERVICE TIME: 2:45 AM Primary Care Physician: Tyler Benitez MD NIGHT COVERAGE: Please page [facility] [place] [phone] for any issues or concerns Subjective CHIEF [...] painful and red. She was seen at [facility] and treated with antibiotics and discharged [...] of O (more content not included)... Normal [facility] Magnesium SerPl-mCncon 03-30 Magnesium [Mass/Vol] 2.0 mg/dL Normal 1.7-2.3 [facility] Comment on above: Order Comment: Speci men Type: BLOOD SPECIMEN Ordering Facility: [facility] Address: [address] [place] [address] Performed By: #### L [id number], 1987-12 #### [facility] CLIA [id number] [address] [place] [address] [place] UREA NITROGEN RND URon 03-30 Urea nitrogen [Mass/Vol] 476 mg/dL Normal 140-1500 [facility] Comment on above: Order Comment: Speci men Type: BLOOD SPECIMEN Ordering Facility: [facility] Address: [facility] [place] [address] Performed By: #### 4 091-5 #### [facility] CLIA [id number] [address] [place] [address] [place] US DVT LOWER [...] imaged segments of the left lower extremity. Molded Candles Wicker: ANGEL Transcribe Date/Time: Aug 5 2023 9:32A Dictated by : SHAYNA DALE MD This examination was interpreted and the report reviewed and electronically signed by: SHAYNA DALE MD on Mar 30 2023 9:34AM EST [id number] [facility] Vancomycin Douglas SerPl-mCncon 03-30-2023 Vancomycin random [Mass/Vol] 19.4 ug/mL Normal 10.0-20.0 [facility] Comment on above: Order Comment: Speci men Type: BLOOD SPECIMEN Ordering Facility: [facility] Address: [facility] [address] Result Comment: Refe rence ranges and high/low indicator flags are provided as general guidelines only. The treating physician must determine appropriate target levels/dosing based on the specific clinical situation. Performed By: #### 4 091-5 #### [facility] CLIA [id number] [address] [place] [address] [facility] ALLIED HEALTHon 03-29-2023 ALLIED HEALTH HNO ID: [id number] Author: Amy Wall RT(R) Service: Radiology Author Type: Sales Administration Manager Type: Allied Health Filed: 03/29/2023 6:56 PM [...] WEST MirandaR) March 29, 2023 6:56 PM [facility] HEALTH HNO ID: [id number] Author: Wyand, Amy K, RT(R) Service: Radiology Author Type: Sales Administration Manager Type: Allied Health Filed: 03/29/2023 6:02 PM Note Text: @7027 this tech spoke to nurse about chest x ray images, a chest 2 v vs a 1 v and which would the doctor prefer, nurse will talk to doctor and get back to x ray on this matter. Normal [facility] Bacteria Bld Culton 03-29-20 Bacteria identified Cx Nom (Bld) CULTURE, BLOOD: No growth 6 days Normal [facility] Comment on above: Performed By: #### 6 00-7 ####[facility] [id number] [address] Bacteria identified Cx Nom (Bld) CULTURE, BLOOD: No growth 5 days Normal [facility] Comment on above: Performed By: #### 6 -7 ####[facility] [id number] [address] CBC W Auto Differential pane l (Bld)on 03-29-2023 Basophils (Bld) [#/Vol] 0.03 10*3/uL Normal <0.11 [facility] Comment on above: Order Comment: Speci men Type: BLOOD SPECIMEN Ordering Facility: [facility] Address: [address] [place] [address] Performed By: #### L [id number] #### [facility] CLIA [id number] [address] Basophils/100 WBC (Bld) 0.3 % Normal [facility] Comment on above: Order Comment: Speci men Type: BLOOD SPECIMEN Ordering Facility: [facility] Address: [address] [place] [address] Performed By: #### L [id number] #### [facility] CLIA [id number] [address] [place] Differential cell count method Nom (Bld) Auto [facility] Comment on above: Order Comment: Speci men Type: BLOOD SPECIMEN Ordering Facility: [facility] Address: [address] [place] [address] Performed By: #### L [id number] #### [facility] CLIA [id number] [address] [place] [address] [place] Eosinophils (Bld) [#/Vol] 0.08 10*3/uL Normal <0.46 [facility] Comment on above: Order Comment: Speci men Type: BLOOD SPECIMEN Ordering Facility: [facility] Address: [address] [place] [address] Performed By: #### L [id number] #### [facility] CLIA [id number] [address] [place] Eosinophils/100 WBC (Bld) 0.9 % Normal [facility] Comment on above: Order Comment: Speci men Type: BLOOD SPECIMEN Ordering Facility: [facility] Address: [address] [place] [address] Performed By: #### L [id number] #### [facility] CLIA [id number] [address] [place] Erythrocyte distribution width (RBC) [Ratio] 14.0 % Normal 11.5-15.0 [facility] Comment on above: Order Comment: Speci men Type: BLOOD SPECIMEN Ordering Facility: [facility] Address: [address] [place] [address] Performed By: #### L [id number] #### [facility] CLIA [id number] [address] [place] Hematocrit (Bld) [Volume fraction] 29.7 % Low 36.0-46.0 [facility] Comment on above: Order Comment: Speci men Type: BLOOD SPECIMEN Ordering Facility: [facility] Address: [address] [place] [address] Performed By: #### L [id number] #### [facility] CLIA [id number] [address] [place] Hemoglobin (Bld) [Mass/Vol] 9.3 g/dL Low 11.5-15.5 [facility] Comment on above: Order Comment: Speci men Type: BLOOD SPECIMEN Ordering Facility: [facility] Address: [address] [address] Performed By: #### L [id number] #### [facility] CLIA [id number] [address] Immature granulocytes (Bld) [#/Vol] 0.05 10*3/uL Normal <0.10 [facility] Comment on above: Order Comment: Speci men Type: BLOOD SPECIMEN Ordering Facility: [facility] Address: [address] [address] Performed By: #### L [id number] #### [facility] CLIA [id number] [address] Immature granulocytes/100 WBC (Bld) 0.6 % Normal [facility] Comment on above: Order Comment: Speci men Type: BLOOD SPECIMEN Ordering Facility: [facility] Address: [address] [place] [address] Performed By: #### L [id number] #### [facility] CLIA [id number] [address] Lymphocytes (Bld) [#/Vol] 0.82 10*3/uL Low 1.00-4.00 [facility] Comment on above: Order Comment: Speci men Type: BLOOD SPECIMEN Ordering Facility: [facility] Address: [address] [place] [address] Performed By: #### L [id number] #### [facility] CLIA [id number] [address] Lymphocytes/100 WBC (Bld) 9.0 % Normal [facility] Comment on above: Order Comment: Speci men Type: BLOOD SPECIMEN Ordering Facility: [facility] Address: [address] [place] [address] Performed By: #### L [id number] #### [facility] CLIA [id number] [address] [facility] MCH (RBC) [Entitic mass] 27.9 pg Normal 26.0-34.0 [facility] Comment on above: Order Comment: Speci men Type: BLOOD SPECIMEN Ordering Facility: [facility] Address: [address] [place] [address] Performed By: #### L [id number] #### [facility] CLIA [id number] [address] MCHC (RBC) [Mass/Vol] 31.3 g/dL Normal 30.5-36.0 [facility] Comment on above: Order Comment: Speci men Type: BLOOD SPECIMEN Ordering Facility: [facility] Address: [address] [address] Performed By: #### L [id number] #### [facility] CLIA [id number] [address] MCV (RBC) [Entitic vol] 89.2 fL Normal 80.0-100.0 [facility] Comment on above: Order Comment: Speci men Type: BLOOD SPECIMEN Ordering Facility: [facility] Address: [address] [place], [place] [address] Performed By: #### L [id number] #### [facility] CLIA [id number] [address] Monocytes (Bld) [#/Vol] 0.75 10*3/uL Normal <0.87 [facility] Comment on above: Order Comment: Speci men Type: BLOOD SPECIMEN Ordering Facility: [facility] Address: [address] Performed By: #### L [id number] #### [facility] CLIA [id number] [address] Monocytes/100 WBC (Bld) 8.3 % Normal [facility] Comment on above: Order Comment: Speci men Type: BLOOD SPECIMEN Ordering Facility: [facility] Address: [address] [address] Performed By: #### L [id number] #### [facility] CLIA [id number] [address] [place] Neutrophils (Bld) [#/Vol] 7.34 10*3/uL Normal 1.45-7.50 [facility] Comment on above: Order Comment: Speci men Type: BLOOD SPECIMEN Ordering Facility: [facility] Address: [address] [address] Performed By: #### L [id number], 1987-12 #### [facility] CLIA [id number] [address] [place] Neutrophils/100 WBC (Bld) 80.9 % Normal [facility] Comment on above: Order Comment: Speci men Type: BLOOD SPECIMEN Ordering Facility: [facility] Address: [address] [address] Performed By: #### L [id number] #### [facility] CLIA [id number] [address] [place] Nucleated RBC (Bld) [#/Vol] 10*3/uL Normal <0.01 [facility] Comment on above: Order Comment: Speci men Type: BLOOD SPECIMEN Ordering Facility: [facility] Address: [address] [address] Performed By: #### L [id number] #### [facility] CLIA [id number] [address] Nucleated RBC/100 WBC (Bld) [Ratio] 0.0 /100 WBC Normal [facility] Comment on above: Order Comment: Speci men Type: BLOOD SPECIMEN Ordering Facility: [facility] Address: [address] [address] Performed By: #### L [id number] #### [facility] CLIA [id number] [address] Platelet mean volume (Bld) [Entitic vol] 10.6 fL Normal 9.0-12.7 [facility] Comment on above: Order Comment: Speci men Type: BLOOD SPECIMEN Ordering Facility: [facility] Address: [address] [address] Performed By: #### L [id number] #### [facility] CLIA [id number] [address] OF [place] Platelets (Bld) [#/Vol] 396 10*3/uL Normal 150-400 [facility] Comment on above: Order Comment: Speci men Type: BLOOD SPECIMEN Ordering Facility: [facility] Address: [address] [place] [address] Performed By: #### L [id number], 1987-12 #### [facility] CLIA [id number] [address] [place] [address] [place] RBC (Bld) [#/Vol] 3.33 10*6/uL Low 3.90-5.20 [facility] Comment on above: Order Comment: Speci men Type: BLOOD SPECIMEN Ordering Facility: [facility] Address: [address] [place] [address] Performed By: #### L [id number] #### [facility] CLIA [id number] [address] [place] [address] [facility] WBC (Bld) [#/Vol] 9.07 10*3/uL Normal 3.70-11.00 [facility] Comment on above: Order Comment: Speci men Type: BLOOD SPECIMEN Ordering Facility: [facility] Address: [address] [place] [address] Performed By: #### L [id number] #### [facility] CLIA [id number] [address] [place] [address] OF [place] CK SerPl-cCncon 03-29-2023 CK [Catalytic activity/Vol] 40 U/L Low 42-196 [facility] Comment on above: Order Comment: Speci men Type: BLOOD SPECIMENOrdering Facility: [facility] Address: [address] [place] [address] Performed By: #### 3 3762-6, 2157-6, [id number], 19093-5 ####[facility] [id number] [place] [address] OF [facility] CONSULT PROGon 03-29-2023 CONSULT PROG HNO ID: [id number] Author: Dino Xavier RPh Service: Pharmacy Author [...] have any questions, please contact pharmacy at [phone]. Age: [age] year old Allergies: ALLERGIES Allergen [...] No results found for: MARIJABEVERLY Dino Xavier, [facility] Normal [facility] CRP SerPl-mCncon 03-29-2023 CRP [Mass/Vol] 9.0 mg/dL High <0.9 [facility] Comment on above: Order Comment: Speci men Type: BLOOD SPECIMEN Ordering Facility: [facility] Address: [address] [place] [address] Performed By: #### L [id number], 1987-12 #### [facility] CLIA [id number] [address] STATES OF [facility] Comprehensive metabolic 2000 panelon 03-29-2023 Albumin [Mass/Vol] 2.6 g/dL Low 3.9-4.9 [facility] Comment on above: Order Comment: Speci men Type: BLOOD SPECIMENOrdering Facility: [facility] Address: [address] [place] [address] Performed By: #### 3 3762-6, 6, [id number], 61195-2 ####[facility] [id number] 83 [address] STATES OF [facility] ALP [Catalytic activity/Vol] 82 U/L Normal 34-123 [facility] Comment on above: Order Comment: Speci men Type: BLOOD SPECIMENOrdering Facility: [facility] Address: [address] [address] Performed By: #### 3 3762-6, 2157-01, [id number], 38887-2 ####[place] LABORATORYCLIA [id number] [address] ALT [Catalytic activity/Vol] 9 U/L Normal 7-38 [facility] Comment on above: Order Comment: Speci men Type: BLOOD SPECIMENOrdering Facility: [facility] Address: [address] [place] [address] Performed By: #### 3 3762-6, 6, [id number], 11082-9 ####Z[facility] LABORATORYCLIA [id number] [address] STATES [facility] Anion gap [Moles/Vol] 10 mmol/L Normal 9-18 [facility] Comment on above: Order Comment: Speci men Type: BLOOD SPECIMENOrdering Facility: [facility] Address: [address] [address] Performed By: #### 3 3762-6, 6, [id number], 36163-5 ####ZEE LABORATORYCLIA [id number] [place] [address] [place] AST [Catalytic activity/Vol] 17 U/L Normal 13-35 [facility] Comment on above: Order Comment: Speci men Type: BLOOD SPECIMENOrdering Facility: [facility] Address: [address] [address] Performed By: #### 3 3762-6, 2157-01, [id number], 57832-3 ####ZEE LABORATORYCLIA [id number] [address] [place] Bilirubin [Mass/Vol] 0.3 mg/dL Normal 0.2-1.3 [facility] Comment on above: Order Comment: Speci men Type: BLOOD SPECIMENOrdering Facility: [facility] Address: [address] [address] Performed By: #### 3 3762-6, 2157-01, [id number], 71532-3 ####ZEE LABORATORYCLIA [id number] [address] STATES OF [facility] Calcium [Mass/Vol] 8.8 mg/dL Normal 8.5-10.2 [facility] Comment on above: Order Comment: Speci men Type: BLOOD SPECIMENOrdering Facility: [facility] Address: [address] [address] Performed By: #### 3 3762-6, 6, [id number], 35814-2 ####ZEE LABORATORYCLIA [id number] [place] [address] [place] [facility] Chloride [Moles/Vol] 102 mmol/L Normal 97-105 [facility] Comment on above: Order Comment: Jean weems Type: BLOOD SPECIMENOrdering Facility: [facility] Address: [address] [place] [address] Performed By: #### 3 3762-6, 2157-6, VPC3869, 97577-9 ####[place] LABORATORYCLIA [id number] [address] CO2 [Moles/Vol] 30 mmol/L Normal 22-30 [facility] Comment on above: Order Comment: Speci men Type: BLOOD SPECIMENOrdering Facility: [facility] Address: [address] [place] [address] Performed By: #### 3 3762-6, 2157-6, VDY6609, 92091-6 ####[place] LABORATORYCLIA [id number] [place] [address] [place] Creatinine [Mass/Vol] 1.37 mg/dL High 0.58-0.96 [facility] Comment on above: Order Comment: Speci men Type: BLOOD SPECIMENOrdering Facility: [facility] Address: [address] [place] [address] Performed By: #### 3 3762-6, 21576, MRF1823, 86791-5 ####[place] LABORATORYCLIA [id number] [address] OF [facility] ESTIMATED GLOMERULAR FILTRATION RATE 38 mL/min/1.73m??? Low >=60 [facility] Comment on above: Order Comment: Jean weems Type: BLOOD SPECIMENOrdering Facility: [facility] Address: [address] [place] [address] Result Comment: Harika mated Glomerular Filtration Rate [...] GFR. Performed By: #### 3 3762-6, 7-6, KQI5950, 24824-4 ####ZEE LABORATORYCLIA [id number] [place] [address] [place] Glucose [Mass/Vol] 133 mg/dL High 74-99 [facility] Comment on above: Order Comment: Jean dank Type: BLOOD SPECIMENOrdering Facility: [facility] Address: [address] [address] Result Comment: The [place] Diabetes Association (ADA) provides guidance for cutoff [...] Standards of Medical Care in Diabetes 2016, [place] Diabetes Association. Diabetes Care. 2016.39(Suppl 1). Performed By: #### 3 3762-6, 6, NAV9128, 20246-8 ####ZEE LABORATORYCLIA [id number] [address] [id number] [place] Potassium [Moles/Vol] 3.2 mmol/L Low 3.7-5.1 [facility] Comment on above: Order Comment: Jean weems Type: BLOOD SPECIMENOrdering Facility: [facility] Address: [address] [place] [phone] Performed By: #### 3 3762-6, 2156-6, OGI9658, 04892-2 ####ZEE LABORATORYCLIA [id number] [place] [address] [place] Protein [Mass/Vol] 6.4 g/dL Normal 6.3-8.0 [facility] Comment on above: Order Comment: Jean dank Type: BLOOD SPECIMENOrdering Facility: [facility] Address: [address] [place] [address] Performed By: #### 3 3762-6, 2157-6, LJD6846, 44620-3 ####Z[facility] LABORATORYCLIA [id number] [place] [id number] [facility] Sodium [Moles/Vol] 142 mmol/L Normal 136-144 [facility] Comment on above: Order Comment: Speci men Type: BLOOD SPECIMENOrdering Facility: [facility] Address: [address] [place], [place] [address] Performed By: #### 3 3762-6, 2157-6, MGM0656, 11607-9 ####ZEE LABORATORYCLIA [id number] [address] [id number] [facility] Urea nitrogen [Mass/Vol] 16 mg/dL Normal 7-21 [facility] Comment on above: Order Comment: Speci men Type: BLOOD SPECIMENOrdering Facility: [facility] Address: [address] [place], [place] [address] Performed By: #### 3 3762-6, 6, NSW3281, 15568-6 ####ZEE LABORATORYCLIA [id number] [place] [address] [facility] ECG COMPLETEon 03-29-2023 ECG COMPLETE Ventricular Rate : 1 05 BPM Atrial Rate : 105 BPM P-R Interval : 166 ms QRS Duration : 96 ms Q-T Interval : 354 ms QTC Calculation(Bazett) : 467 ms Calculated P Llewellyn : 81 degrees Calculated R Llewellyn : -11 degrees Calculated T Llewellyn : 29 degrees SINUS TACHYCARDIA MODERATE VOLTAGE CRITERIA FOR LVH, MAY BE NORMAL VARIANT INFERIOR INFARCT , AGE UNDETERMINED ABNORMAL ECG no stemi Confirmed by Pawel HERNADEZ ERIKA ([id number]), image editor KELSEY MONTEIRO (1945) on 03/30/2023 9:06:45 AM NAME : AMBER KOROMA PID : [id number] : 1940 Gender : Female Race : ORD : [id number] Procedure Date : Mar 29 2023 17:45:18 Edit Date : Mar 30 2023 09:06:52 Diagnosis: SINUS TACHYCARDIA MODERATE VOLTAGE CRITERIA FOR LVH, MAY BE NORMAL VARIANT INFERIOR INFARCT , AGE UNDETERMINED ABNORMAL ECG no stemi Confirmed by Pawel HERNADEZ ERIKA ([id number]), image editor KELSEY MONTEIRO (1945) on 03/30/2023 9:06:45 AM Test Reason : Chest Pain Location : 1 : ER ED Overread By : Pawel HERNADEZ ERIKA Edited By : KELSEY MONTEIRO Referred By : , Acquired by : MOLLY, [facility] ED NOTEon 03-29-2023 ED NOTE HNO ID: [id number] Author: Gold Holguin RN Service: Nursing Author Type: Registered Nurse Type: ED Notes Filed: 03/29/2023 9:22 PM Note Text: Pt is being admitted to 404 in stable condition, report given to Herb WALDEN [facility] ED PROV NOTEon 03-29-2023 ED PROV NOTE HNO ID: [id number] Author: Judith Hernadez MD Service: ? Author [...] her left leg. She was seen by [facility] and admitted for cellulitis. She was [...] Normal b (more content not included)... Normal [facility] Gas and Carbon monoxide pane l (BldV)on 03-29-2023 Base excess Calc (BldV) [Moles/Vol] 8 mmol/L High 0-2 [facility] Comment on above: Order Comment: Kareni dank Type: VENOUS BLOOD SPECIMENOrdering Facility: [facility] Address: [address] [place] [address] Performed By: #### 2 4344-4 ####[place] RESPIRATORYCLIA [id number] [facility]OSP[facility] RESPIRATORY [id number] [place] [address] Carboxyhemoglobin (BldV) [Mass fraction] <1.0 Normal 0.0-2.0 [facility] Comment on above: Order Comment: Jean men Type: VENOUS BLOOD SPECIMENOrdering Facility: [facility] Address: [address] [place] [address] Result Comment: Carb oxyhemoglobin Reference Range for Smokers: 2.0-8.0% Performed By: #### 2 4344-4 ####ZEE RESPIRATORYCLIA [id number] [facility] RESPIRAT[facility] [id number] [address] CO2 (BldV) [Partial pressure] 52 mm[Hg] Normal 42-55 [facility] Comment on above: Order Comment: Speci men Type: VENOUS BLOOD SPECIMENOrdering Facility: [facility] Address: [address] [place] [address] Performed By: #### 2 4344-4 ####ZEE RESPIRATORYCLIA [id number] [facility]OS[facility] RESPIRATORY [id number] [address] CO2 adjusted to patient's actual temperature (BldV) [Partial pressure] Normal [facility] Comment on above: Order Comment: Speci men Type: VENOUS BLOOD SPECIMENOrdering Facility: [facility] Address: [address] [place] [address] Performed By: #### 2 4344-4 ####[place] RESPIRATORYCLIA [id number] [facility]OS[facility] RESPIRATORY [id number] [address] HCO3 (Bld) [Moles/Vol] 33 mmol/L High 24-28 [facility] Comment on above: Order Comment: Speci men Type: VENOUS BLOOD SPECIMENOrdering Facility: [facility] Address: [address] [place] [address] Performed By: #### 2 4344-4 ####[place] RESPIRATORYIA [id number] [facility] RESPIRAT[facility] [id number] [address] Hemoglobin (Bld) [Mass/Vol] 12.4 g/dL Normal 11.5-15.5 [facility] Comment on above: Order Comment: Speci men Type: VENOUS BLOOD SPECIMENOrdering Facility: [facility] Address: [address] [place] [address] Performed By: #### 2 4344-4 ####[place] RESPIRATORYCLIA [id number] [facility]OS[facility] RESPIRATORY [id number] [address] Lactate [Moles/Vol] 1.8 mmol/L Normal 0.5-2.2 [facility] Comment on above: Order Comment: Speci men Type: VENOUS BLOOD SPECIMENOrdering Facility: [facility] Address: [address] [address] Performed By: #### 2 4344-4 ####ZEE RESPIRATORYCLIA [id number] [facility] RESPIRATORY [id number] [address] Methemoglobin (Bld) [Mass fraction] % Normal 0.0-1.5 [facility] Comment on above: Order Comment: Speci men Type: VENOUS BLOOD SPECIMENOrdering Facility: [facility] Address: [address] [address] Performed By: #### 2 4344-4 ####ZEE RESPIRATORYCLIA [id number] [facility]OS[facility] RESPIRATORY [id number] [address] [address] O2 THERAPY RA=Room Air [facility] Comment on above: Order Comment: Speci men Type: VENOUS BLOOD SPECIMENOrdering Facility: [facility] Address: [address] [address] Performed By: #### 2 4344-4 ####[place] RESPIRATORYIA [id number] [facility]OSP[facility] RESPIRATORY [id number] [address] Oxygen (BldV) [Partial pressure] mm[Hg] Low 35-45 [facility] Comment on above: Order Comment: Speci men Type: VENOUS BLOOD SPECIMENOrdering Facility: [facility] Address: [address] Performed By: #### 2 4344-4 ####ZEE RESPIRATORYCLIA [id number] [facility]OS[facility] RESPIRATORY [id number] [address] Oxygen adjusted to patient's actual temperature (BldV) [Partial pressure] Normal [facility] Comment on above: Order Comment: Speci men Type: VENOUS BLOOD SPECIMENOrdering Facility: [facility] Address: [address] [address] Performed By: #### 2 4344-4 ####ZEE RESPIRATORYCLIA [id number] [facility]OS[facility] RESPIRATORY [id number] [place] [place] [address] Oxyhemoglobin (BldV) [Mass fraction] 37 % Low 60-85 [facility] Comment on above: Order Comment: Speci men Type: VENOUS BLOOD SPECIMENOrdering Facility: [facility] Address: [address] [address] Performed By: #### 2 4344-4 ####[place] RESPIRATORYIA [id number] HOSP[facility] RESPIRATORY [id number] [address] [address] pH (BldV) 7.42 [pH] Normal 7.32-7.42 [facility] Comment on above: Order Comment: Speci men Type: VENOUS BLOOD SPECIMENOrdering Facility: [facility] Address: [address] [place] [address] Performed By: #### 2 4344-4 ####[facility] [id number] HOSP[facility] RESPIRATORY [id number] [place] [address] pH adjusted to patient's actual temperature (BldV) Normal [facility] Comment on above: Order Comment: Speci men Type: VENOUS BLOOD SPECIMENOrdering Facility: [facility] Address: [address] [place] [address] Performed By: #### 2 4344-4 ####[place] RESPIRATORYWH[facility] [id number] [facility]OS[facility] RESPIRATORY [id number] [place] [place] [address] Potassium [Moles/Vol] 3.1 mmol/L Low 3.5-5.0 [facility] Comment on above: Order Comment: Speci men Type: VENOUS BLOOD SPECIMENOrdering Facility: [facility] Address: [address] [address] Performed By: #### 2 4344-4 ####[place] RESPIRATORYWHITE [facility]IVER [facility] [id number] HOSP[facility] RESPIRATORY [id number] [place] [address] HIGH SENSITIVITY TROPONIN T (INITIAL)on 03-29-2023 HIGH SENSITIVITY ALEENA 30 ng/L High <12 [facility] Comment on above: Order Comment: Speci men Type: BLOOD SPECIMENOrdering Facility: [facility] Address: [address] [address] Result Comment: When assessing risk for acute [...] MACE. Performed By: #### 3 3762-6, 2157-6, [id number], 20058-1 ####ZEE LABORATORYCLIA [id number] [address] [place] HIGH SENSITIVITY TROPONIN T (SECOND)on 03-29-2023 HIGH SENSITIVITY ALEENA 29 ng/L High <12 [facility] Comment on above: Order Comment: Jean weems Type: BLOOD SPECIMEN [facility] Address: [address] [place] [address] Result Comment: When assessing risk for acute [...] 30 day MACE. Performed By: #### L WP9380, 1987-12 #### [facility] CLIA [id number] [address] [place] HIGH SENSITIVITY TROPONIN T (THIRD) 3 HRS AFTER INITIALon 03-29-2023 HIGH SENSITIVITY ALEENA 27 ng/L High <12 [facility] Comment on above: Order Comment: Jean weems Type: BLOOD SPECIMEN [facility] Address: [address] [address] Result Comment: When assessing risk for acute [...] 30 day MACE. Performed By: #### L OL1431, 1987-12 #### [facility] CLIA [id number] [address] [place] [address] [facility] NT-proBNP [facility] Natriuretic peptide.B prohormone N-Terminal [Mass/Vol] 3874 pg/mL High <450 [facility] Comment on above: Order Comment: Speci men Type: BLOOD SPECIMENOrdering Facility: [facility] Address: [address] [place], [place] [address] [place] [address] Performed By: #### 3 3762-6, 2157-6, UVS6814, 63129-4 ####[place] LABORATORYCLIA [id number] [place], [place] [address] [place] [address] OF [facility] XR CHEST 1V FRONTAL PORTon 0 03-29-2023 [...] Other: None. IMPRESSION: Findings as described above. Molded Candles Wicker: PSCB Transcribe Date/Time: Mar 29 2023 7:04P Dictated by : DENISSE ACEVEDO MD This examination was interpreted and the report reviewed and electronically signed by: DENISSE ACEVEDO MD on Mar 29 2023 7:06PM EST [id number] [facility] XR TIBIA FIBULA 2V AP/LAT LT on [...] radiographic evidence of acute bony destructive process. Molded Candles Wicker: [facility] Transcribe Date/Time: Mar 29 2023 7:03P Dictated by : ALECIA GARCIA MD This examination was interpreted and the report reviewed and electronically signed by: ALECIA GARCIA MD on Mar 29 2023 7:05PM EST [id number] Normal [facility] Absolute lymphocyte countOrd ered By: Armand Bob on 03-19-2023 Lymphocytes Auto (Unsp spec) [#/Vol] 1.57 10*3/uL 0.83-4.51 [facility] Basophil percentageOrdered B y: Armand Bob on 03-19-2023 Basophil percentage Not Reportable [facility] Basophil percentage 2.0 mg/dL 2.5-4.9 [facility] Chloride [Moles/Vol] 110 mmol/L 98-107 [facility] Glucose [Mass/Vol] 92 mg/dL 74-106 [facility] Neutrophils (Bld) [#/Vol] 10.9 10*3/uL 2.0-7.7 [facility] Potassium [Moles/Vol] 3.6 mmol/L 3.5-5.1 [facility] Sodium [Moles/Vol] 138 mmol/L 136-145 [facility] WBC (Bld) [#/Vol] 13.1 10*3/uL 4.4-11.0 [facility] Blood band neutrophil count as percentage of total leukocytesOrdered By: Armand Bob on 03-19-2023 Band form neutrophils/100 WBC (Bld) 15 % 0-5 [facility] Blood erythrocytes count (nu mber/volume)Ordered By: Armand Bob on 03-19-2023 RBC (Bld) [#/Vol] 3.28 10*6/uL 4.2-5.4 [facility] Blood hemoglobin measurement (mass/volume)Ordered By: Armand Bob on 03-19-2023 Hemoglobin (Bld) [Mass/Vol] 9.5 g/dL 12.0-15.0 [facility] Blood lymphocytes/100 leukoc ytesOrdered By: Armand Bob on 03-19-2023 Lymphocytes/100 WBC (Bld) 12 % 19-41 [facility] Blood monocytes/100 leukocyt esOrdered By: Armand Bob on 03-19-2023 Monocytes/100 WBC (Bld) 4 % 0-10 [facility] Blood platelet adequacy dete ction by light microscopyOrdered By: Armand Bob on 03-19-2023 Platelets LM Ql (Bld) SLT DEC ADEQ [facility] Blood platelet mean volumeOr dered By: Armand Bob on 03-19-2023 Platelet mean volume (Bld) [Entitic vol] 10.7 fL 6.2-12.0 [facility] Blood segmented neutrophils/ 100 leukocytesOrdered By: Armand Bob on 03-19-2023 Segmented neutrophils/100 WBC (Bld) 68 % 47-70 [facility] Determination of erythrocyte mean corpuscular volume (MCV)Ordered By: Armand Bob on 03-19-2023 MCV (RBC) [Entitic vol] 91.2 fL 81-99 [facility] Hematocrit Auto (Bld) [Volum e fraction]Ordered By: Armand Bob on 03-19-2023 Hematocrit (Bld) [Volume fraction] 29.9 % 37-47 [facility] Laboratory - Chemistry and C hemistry - challengeOrdered By: Armand Bob on 03-19-2023 CO2 [Moles/Vol] 25.0 mmol/L 21.0-32.0 [facility] Magnesium [Mass/Vol] 2.0 mg/dL 1.6-2.6 [facility] Urea nitrogen/Creatinine [Mass ratio] 20.3 mg/mg 10-20 [facility] Laboratory - Hematology and Cell countsOrdered By: Armand Bob on 03-19-2023 Erythrocyte distribution width (RBC) [Entitic vol] 48.0 fL 35.1-43.9 [facility] Erythrocyte distribution width (RBC) [Ratio] 14.2 % 11.6-14.6 [facility] MCH (RBC) [Entitic mass] 29.0 pg 27.0-32.0 [facility] Myelocytes/100 WBC (Bld) 1 % 0-0 [facility] MCHC Auto (RBC) [Mass/Vol]Or dered By: Armand Bob on 03-19-2023 MCHC (RBC) [Mass/Vol] 31.8 g/dL 32-36 [facility] No Panel InformationOrdered By: Armand Bob on 03-19-2023 Estimated Creatinine Clearance Calc 44.42 ml/min [facility] Estimated GFR (MDRD) Amer 51 mL/min >60 [facility] Comment on above: GFR Calc Estimated GFR (MDRD) Non-Af Amer 42 mL/min >60 [facility] Comment on above: Non- GFR Calc Platelets bldOrdered By: Sarbjit Bob on 03-19-2023 Platelets (Bld) [#/Vol] 136 10*3/uL 150-450 [facility] RBC morphologyOrdered By: Gumaro Bob on 03-19-2023 RBC morphology finding Nom (Bld) NORM C+C NORMAL NORM C&C [facility] Review by pathologistOrdered By: Armand Bob on 03-19-2023 Pathologist review Bryce (Unsp spec) [Interp] Reviewed [facility] Comment on above: Previous reported re sult: Narda angel Edited by: RGOMARCELA on 03/20/23:1011Neutrophilic leukocytosis.Normocytic anemia.Mild Thrombocytopenia.Clinical correlation necessary.Rainer Nelson M.D. 03/20/23 AMENDED REPORT 03/20/23 1011 PATH REV previously reported as: December foll Serum or plasma calcium lakeisha urement (mass/volume)Ordered By: Armand Bob on 03-19-2023 Calcium [Mass/Vol] 7.8 mg/dL 8.5-10.1 [facility] Serum or plasma creatinine m easurement (mass/volume)Ordered By: Armand Bob on 03-19-2023 Creatinine [Mass/Vol] 1.28 mg/dL 0.55-1.02 [facility] Comment on above: The validity of the calculated GFR & GFRAA in patients over 70 years has not been determined. Clinical correlation is essential. Serum or plasma urea nitroge n measurement (mass/volume)Ordered By: rAmand Bob on 03-19-2023 Urea nitrogen [Mass/Vol] 26 mg/dL 7-18 [facility] Thin prep Papanicolaou smear with manual screeningOrdered By: Armand Bob on 03-19-2023 Thin prep Papanicolaou smear with manual screening 3 5-15 [facility] Total cell countOrdered By: Armand Bob on 03-19-2023 Cells counted Molgen (Bld/Tiss) [#] 100 MANUAL DIFF [facility] Basophil percentageOrdered B y: Nata Rivers on 03-18-2023 Basophils/100 WBC (Bld) 0.2 % 0-1 [facility] Eosinophils/100 WBC (Bld) 0.0 % 0-5 [facility] Blood lymphocytes/100 leukoc ytesOrdered By: Nata Rivers on 03-18-2023 Lymphocytes/100 WBC (Bld) 3.7 % 19-41 [facility] Blood manual differential co mment interpretation (narrative result)Ordered By: Nata Rivers on 03-18-2023 Manual differential comment Bryce (Bld) [Interp] SCANNED [facility] Comment on above: LYMPHOPENIALEFT SHIF T PRESENT BANDS 2+ Blood monocytes/100 leukocyt esOrdered By: Nata Rivers on 03-18-2023 Monocytes/100 WBC (Bld) 4.5 % 0-10 [facility] Laboratory - Hematology and Cell countsOrdered By: Nata Rivers on 03-18-2023 Immature granulocytes/100 WBC (Bld) 2.100 % 0.0-0.9 [facility] Comment on above: IG% - Immature Granu locytes (promyelocytes, myelocytes and metamyelocytes) > 1% indicates that a LEFT SHIFT is Present. Nucleated RBC/100 WBC (Bld) [Ratio] 0 % 0-5 [facility] Basophil percentageOrdered B y: Familia Smalls on 03-17-2023 Lactate [Moles/Vol] 1.5 mmol/L 0.4-2.0 [facility] Bilirubin [Mass/Vol] 0.60 mg/dL 0.20-1.00 [facility] Comment on above: For patients on eltr ombopag therapy, use of Dimension [place] TBIL is not recommended. Protein [Mass/Vol] 7.8 g/dL 6.4-8.2 [facility] INR in Blood by Coagulation assayOrdered By: Familia Smalls on 03-17-2023 INR Coag (Bld) [Relative time] 1.2 {INR} [facility] Laboratory - Chemistry and C hemistry - challengeOrdered By: Familia Smalls on 03-17-2023 ALP [Catalytic activity/Vol] 82 U/L 45-117 [facility] ALT [Catalytic activity/Vol] 16 U/L 13-56 [facility] Globulin (S) [Mass/Vol] 5.0 g/dL 2.2-4.[address] [facility] Laboratory - CoagulationOrde red By: Familia Smalls on 03-17-2023 aPTT Coag (Bld) [Time] 32.6 s 24.1-36.[address] [facility] PT Coag (PPP) [Time] 15.5 s 11.7-14.9 [facility] Laboratory - Microbiology an d Antimicrobial susceptibilityOrdered By: Familia Smalls on 03-17-2023 Bacteria identified Cx Nom (Bld) No growth in 5 days. [facility] Bacteria identified Cx Nom (Bld) No growth in 5 days. [facility] Serum or plasma albumin lakeisha urement (mass/volume)Ordered By: Familia Smalls on 03-17-2023 Albumin [Mass/Vol] 2.8 g/dL 3.2-5.0 [facility] Serum or plasma albumin/glob ulin mass ratioOrdered By: Familia Smalls on 03-17-2023 Albumin/Globulin [Mass ratio] 0.6 {ratio} 0.9-2.4 [facility] Thin prep Papanicolaou smear with manual screeningOrdered By: Familia Smalls on 03-17-2023 Thin prep Papanicolaou smear with manual screening 20 U/L 15-37 [facility] Absolute lymphocyte countOrd ered By: ED PROVIDER on 01-15-2023 Lymphocytes Auto (Unsp spec) [#/Vol] 1.19 10*3/uL 0.83-4.51 [facility] Basophil percentageOrdered B y: ED PROVIDER on 01-15-2023 Basophils/100 WBC (Bld) 0.5 % 0-[address] [facility] Chloride [Moles/Vol] 105 mmol/L 98-107 [facility] Eosinophils/100 WBC (Bld) 1.2 % 0-5 [facility] Glucose [Mass/Vol] 96 mg/dL 74-106 [facility] Neutrophils (Bld) [#/Vol] 4.3 10*3/uL 2.0-7.7 [facility] Neutrophils/100 WBC (Bld) 67.5 % 47-70 [facility] Potassium [Moles/Vol] 3.6 mmol/L 3.5-5.1 [facility] Sodium [Moles/Vol] 140 mmol/L 136-145 [facility] WBC (Bld) [#/Vol] 6.4 10*3/uL 4.4-11.0 [facility] Blood erythrocytes count (nu mber/volume)Ordered By: ED PROVIDER on 01-15-2023 RBC (Bld) [#/Vol] 3.71 10*6/uL 4.2-5.4 [facility] Blood hemoglobin measurement (mass/volume)Ordered By: ED PROVIDER on 01-15-2023 Hemoglobin (Bld) [Mass/Vol] 10.6 g/dL 12.0-15.0 [facility] Blood lymphocytes/100 leukoc ytesOrdered By: ED PROVIDER on 01-15-2023 Lymphocytes/100 WBC (Bld) 18.6 % 19-41 [facility] Blood monocytes/100 leukocyt esOrdered By: ED PROVIDER on 01-15-2023 Monocytes/100 WBC (Bld) 11.9 % 0-10 [facility] Blood platelet mean volumeOr dered By: ED PROVIDER on 01-15-2023 Platelet mean volume (Bld) [Entitic vol] 10.2 fL 6.2-12.0 [facility] Determination of erythrocyte mean corpuscular volume (MCV)Ordered By: ED PROVIDER on 01-15-2023 MCV (RBC) [Entitic vol] 89.5 fL 81-99 [facility] Hematocrit Auto (Bld) [Volum e fraction]Ordered By: ED PROVIDER on 01-15-2023 Hematocrit (Bld) [Volume fraction] 33.2 % 37-47 [facility] Influenza virus A and B and SARS-CoV-2 (COVID-19) Ag panel - Upper respiratory specimOrdered By: ED PROVIDER on 01-15-2023 SARS-CoV-2 (COVID-19) RNA KEERTHI+probe Ql (Resp) [facility] Laboratory - Chemistry and C hemistry - challengeOrdered By: ED PROVIDER on 01-15-2023 CO2 [Moles/Vol] 29.0 mmol/L 21.0-32.0 [facility] Natriuretic peptide B (Bld) [Mass/Vol] 147.5 pg/mL 0-100 [facility] Urea nitrogen/Creatinine [Mass ratio] 19.5 mg/mg 10-20 [facility] Laboratory - Hematology and Cell countsOrdered By: ED PROVIDER on 01-15-2023 Erythrocyte distribution width (RBC) [Entitic vol] 46.5 fL 35.1-43.9 [facility] Erythrocyte distribution width (RBC) [Ratio] 14.2 % 11.6-14.6 [facility] Immature granulocytes/100 WBC (Bld) 0.300 % 0.0-0.9 [facility] Comment on above: IG% - Immature Granu locytes (promyelocytes, myelocytes and metamyelocytes) > 1% indicates that a LEFT SHIFT is Present. MCH (RBC) [Entitic mass] 28.6 pg 27.0-32.0 [facility] Nucleated RBC/100 WBC (Bld) [Ratio] 0 % 0-5 [facility] MCHC Auto (RBC) [Mass/Vol]Or dered By: ED PROVIDER on 01-15-2023 MCHC (RBC) [Mass/Vol] 31.9 g/dL 32-36 [facility] No Panel InformationOrdered By: Deann Kaur on 01-15-2023 D-Dimer Quantitative (PE/DVT) 1.09 FEU/ug/m 0.27-0.49 [facility] Comment on above: D-Dimer ELEVATED (>0 .49): Additional studies and clinicalassessments are indicated to conclude diagnosis of:Deep Vein Thrombosis (DVT) or Pulmonary Embolism (PE)CRITICAL VALUE VERIFIED. CALLED TO [id number] Tess Serrano.RESULTS READ BACK BY SAME . Troponin I High Sensitivity 6 pg/mL 3.0-54.0 [facility] Comment on above: Please Note: New Jessica t Units and Gender Specific Reference Ranges. For more information see Policy Stat Procedure [place] High Sensitivity Troponin (TNIH) and attachments. No Panel InformationOrdered By: ED PROVIDER on 01-15-2023 Estimated Creatinine Clearance Calc 23.50 ml/min [facility] Estimated GFR (MDRD) Amer 51 mL/min >60 [facility] Comment on above: GFR Calc Estimated GFR (MDRD) Non-Af Amer 42 mL/min >60 [facility] Comment on above: Non- GFR Calc Platelets bldOrdered By: ED PROVIDER on 01-15-2023 Platelets (Bld) [#/Vol] 196 10*3/uL 150-450 [facility] Serum or plasma calcium lakeisha urement (mass/volume)Ordered By: ED PROVIDER on 01-15-2023 Calcium [Mass/Vol] 8.9 mg/dL 8.5-10.1 [facility] Serum or plasma creatinine m easurement (mass/volume)Ordered By: ED PROVIDER on 01-15-2023 Creatinine [Mass/Vol] 1.28 mg/dL 0.55-1.02 [facility] Comment on above: The validity of the calculated GFR & GFRAA in patients over 70 years has not been determined. Clinical correlation is essential. Serum or plasma urea nitroge n measurement (mass/volume)Ordered By: ED PROVIDER on 01-15-2023 Urea nitrogen [Mass/Vol] 25 mg/dL 7-18 [facility] Thin prep Papanicolaou smear with manual screeningOrdered By: ED PROVIDER on 01-15-2023 Thin prep Papanicolaou smear with manual screening 6 5-15 [facility] Tele[facility] (RACHANA) AMBER KOROMA ([id number]) 1940 F Date Time Provider Department 01/03/23 [...] Endometrial cancer [C54.1] 03/19/2011 Cyst in hand [[id number]] 08/02/2011 Personal history of malignant neoplasm of [...] Encounter Status:Closed by JUDITH AU on 01/03/23 [facility] Absolute lymphocyte countOrd ered By: Dr. Benitez on 11-20-2022 Lymphocytes Auto (Unsp spec) [#/Vol] 1.01 10*3/uL 0.83-4.51 [facility] Basophil percentageOrdered B y: Dr. Benitez on 11-20-2022 Basophils/100 WBC (Bld) 0.5 % 0-1 [facility] Bilirubin [Mass/Vol] 0.30 mg/dL 0.20-1.00 [facility] Comment on above: For patients on eltr ombopag therapy, use of Dimension [place] TBIL is not recommended. Chloride [Moles/Vol] 105 mmol/L 98-107 [facility] Eosinophils/100 WBC (Bld) 2.0 % 0-5 [facility] Glucose [Mass/Vol] 88 mg/dL 74-106 [facility] Neutrophils (Bld) [#/Vol] 4.3 10*3/uL 2.0-7.7 [facility] Neutrophils/100 WBC (Bld) 71.4 % 47-70 [facility] Potassium [Moles/Vol] 4.9 mmol/L 3.5-5.1 [facility] Protein [Mass/Vol] 7.3 g/dL 6.4-8.2 [facility] Sodium [Moles/Vol] 135 mmol/L 136-145 [facility] WBC (Bld) [#/Vol] 6.0 10*3/uL 4.4-11.0 [facility] Blood erythrocytes count (nu mber/volume)Ordered By: Dr. Benitez on 11-20-2022 RBC (Bld) [#/Vol] 3.98 10*6/uL 4.2-5.4 [facility] Blood hemoglobin measurement (mass/volume)Ordered By: Dr. Benitez on 11-20-2022 Hemoglobin (Bld) [Mass/Vol] 11.2 g/dL 12.0-15.0 [facility] Blood lymphocytes/100 leukoc ytesOrdered By: Dr. Benitez on 11-20-2022 Lymphocytes/100 WBC (Bld) 16.7 % 19-41 [facility] Blood monocytes/100 leukocyt esOrdered By: Dr. Benitez on 11-20-2022 Monocytes/100 WBC (Bld) 9.1 % 0-[address] [facility] Blood platelet mean volumeOr dered By: Dr. Benitez on 11-20-2022 Platelet mean volume (Bld) [Entitic vol] 11.5 fL 6.2-12.0 [facility] Determination of erythrocyte mean corpuscular volume (MCV)Ordered By: Dr. Benitez on 11-20-2022 MCV (RBC) [Entitic vol] 90.2 fL 81-[address] [facility] Hematocrit Auto (Bld) [Volum e fraction]Ordered By: Dr. Benitez on 11-20-2022 Hematocrit (Bld) [Volume fraction] 35.9 % 37-47 [facility] Laboratory - Chemistry and C hemistry - challengeOrdered By: Dr. Benietz on 11-20-2022 ALP [Catalytic activity/Vol] 73 U/L 45-117 [facility] ALT [Catalytic activity/Vol] 15 U/L 13-56 [facility] CO2 [Moles/Vol] 26.0 mmol/L 21.0-32.0 [facility] Globulin (S) [Mass/Vol] 4.1 g/dL 2.2-4.2 [facility] Lipase [Catalytic activity/Vol] 185 U/L 73-393 [facility] Urea nitrogen/Creatinine [Mass ratio] 19.8 mg/mg 10-20 [facility] Laboratory - Hematology and Cell countsOrdered By: Dr. Benitez on 11-20-2022 Erythrocyte distribution width (RBC) [Entitic vol] 45.7 fL 35.1-43.9 [facility] Erythrocyte distribution width (RBC) [Ratio] 13.9 % 11.6-14.6 [facility] Immature granulocytes/100 WBC (Bld) 0.300 % 0.0-0.9 [facility] Comment on above: IG% - Immature Granu locytes (promyelocytes, myelocytes and metamyelocytes) > 1% indicates that a LEFT SHIFT is Present. MCH (RBC) [Entitic mass] 28.1 pg 27.0-32.0 [facility] Nucleated RBC/100 WBC (Bld) [Ratio] 0 % 0-5 [facility] MCHC Auto (RBC) [Mass/Vol]Or dered By: Dr. Benitez on 11-20-2022 MCHC (RBC) [Mass/Vol] 31.2 g/dL 32-36 [facility] No Panel InformationOrdered By: Dr. Benitez on 11-20-2022 Estimated GFR (MDRD) Amer 36 mL/min >60 [facility] Comment on above: GFR Calc Estimated GFR (MDRD) Non-Af Amer 30 mL/min >60 [facility] Comment on above: Non- GFR Calc Parathyroid Hormone (Intact) 161.4 pg/mL 18.4-80.1 [facility] Thyroid Stimulating Hormone (TSH) 3.26 uIU/mL 0.358-3.74 [facility] Vitamin D 25-Hydroxy 40.0 ng/mL [facility] Comment on above: Vitamin D 25(OH) Sta tus Range Deficiency <20 ng/mL (50nmol/L) Insufficiency 20 - 30 ng/mL (50 - 75 nmol/L) Sufficiency 30 - 100 ng/mL (75 - 250 nmol/L) Toxicity >100 ng/mL (>250 nmol/L) Platelets bldOrdered By: Dr. Benitez on 11-20-2022 Platelets (Bld) [#/Vol] 193 10*3/uL 150-450 [facility] Serum or plasma albumin lakeisha urement (mass/volume)Ordered By: Dr. Benitez on 11-20-2022 Albumin [Mass/Vol] 3.2 g/dL 3.2-5.0 [facility] Serum or plasma albumin/glob ulin mass ratioOrdered By: Dr. Benitez on 11-20-2022 Albumin/Globulin [Mass ratio] 0.8 {ratio} 0.9-2.4 [facility] Serum or plasma calcium lakeisha urement (mass/volume)Ordered By: Dr. Benitez on 11-20-2022 Calcium [Mass/Vol] 9.1 mg/dL 8.5-10.1 [facility] Serum or plasma creatinine m easurement (mass/volume)Ordered By: Dr. Benitez on 11-20-2022 Creatinine [Mass/Vol] 1.72 mg/dL 0.55-1.02 [facility] Comment on above: The validity of the calculated GFR & GFRAA in patients over 70 years has not been determined. Clinical correlation is essential. Serum or plasma urea nitroge n measurement (mass/volume)Ordered By: Dr. Benitez on 11-20-2022 Urea nitrogen [Mass/Vol] 34 mg/dL 7-18 [facility] Thin prep Papanicolaou smear with manual screeningOrdered By: Dr. Benitez on 11-20-2022 Thin prep Papanicolaou smear with manual screening 19 U/L 15-37 [facility] Thin prep Papanicolaou smear with manual screening 4 5-15 [facility] XR FOOT GENERAL 3V AP/LAT/OB L LEFTon 09-11-2022 [facility] Absolute lymphocyte countOrd ered By: Dr. Benitze on 07-09-2022 Lymphocytes Auto (Unsp spec) [#/Vol] 1.12 10*3/uL 0.83-4.51 [facility] Basophil percentageOrdered B y: Dr. Benitez on 07-09-2022 Basophils/100 WBC (Bld) 0.6 % 0-1 [facility] Bilirubin [Mass/Vol] 0.30 mg/dL 0.20-1.00 [facility] Comment on above: For patients on eltr ombopag therapy, use of Dimension [place] TBIL is not recommended. Chloride [Moles/Vol] 108 mmol/L 98-107 [facility] Eosinophils/100 WBC (Bld) 2.9 % 0-5 [facility] Glucose [Mass/Vol] 115 mg/dL 74-106 [facility] Comment on above: Fasting Glucose resu lt from 100 to 125 mg/dL suggests IMPAIRED HOMEOSTASIS per A.D.A. criteria. Neutrophils (Bld) [#/Vol] 4.4 10*3/uL 2.0-7.7 [facility] Neutrophils/100 WBC (Bld) 70.9 % 47-70 [facility] Potassium [Moles/Vol] 3.6 mmol/L 3.5-5.1 [facility] Protein [Mass/Vol] 7.4 g/dL 6.4-8.2 [facility] Sodium [Moles/Vol] 142 mmol/L 136-145 [facility] WBC (Bld) [#/Vol] 6.3 10*3/uL 4.4-11.0 [facility] Blood erythrocytes count (nu mber/volume)Ordered By: Dr. Benitez on 07-09-2022 RBC (Bld) [#/Vol] 3.67 10*6/uL 4.2-5.4 [facility] Blood hemoglobin measurement (mass/volume)Ordered By: Dr. Benitez on 07-09-2022 Hemoglobin (Bld) [Mass/Vol] 10.6 g/dL 12.0-15.0 [facility] Blood lymphocytes/100 leukoc ytesOrdered By: Dr. Benitez on 07-09-2022 Lymphocytes/100 WBC (Bld) 17.9 % 19-41 [facility] Blood monocytes/100 leukocyt esOrdered By: Dr. Benitez on 07-09-2022 Monocytes/100 WBC (Bld) 7.2 % 0-10 [facility] Blood platelet mean volumeOr dered By: Dr. Benitez on 07-09-2022 Platelet mean volume (Bld) [Entitic vol] 10.4 fL 6.2-12.0 [facility] Determination of erythrocyte mean corpuscular volume (MCV)Ordered By: Dr. Benitez on 07-09-2022 MCV (RBC) [Entitic vol] 93.7 fL 81-99 [facility] Hematocrit Auto (Bld) [Volum e fraction]Ordered By: Dr. Benitez on 07-09-2022 Hematocrit (Bld) [Volume fraction] 34.4 % 37-47 [facility] Laboratory - Chemistry and C hemistry - challengeOrdered By: Dr. Benitez on 07-09-2022 ALP [Catalytic activity/Vol] 88 U/L 45-117 [facility] ALT [Catalytic activity/Vol] 13 U/L 13-56 [facility] CO2 [Moles/Vol] 28.0 mmol/L 21.0-32.0 [facility] Globulin (S) [Mass/Vol] 4.3 g/dL 2.2-4.[address] [facility] Natriuretic peptide B (Bld) [Mass/Vol] 105.8 pg/mL 0-100 [facility] Urea nitrogen/Creatinine [Mass ratio] 23.3 mg/mg 10-20 [facility] Laboratory - Hematology and Cell countsOrdered By: Dr. Benitez on 07-09-2022 Erythrocyte distribution width (RBC) [Entitic vol] 44.0 fL 35.1-43.9 [facility] Erythrocyte distribution width (RBC) [Ratio] 12.7 % 11.6-14.6 [facility] Immature granulocytes/100 WBC (Bld) 0.500 % 0.0-0.9 [facility] Comment on above: IG% - Immature Granu locytes (promyelocytes, myelocytes and metamyelocytes) > 1% indicates that a LEFT SHIFT is Present. MCH (RBC) [Entitic mass] 28.9 pg 27.0-32.0 [facility] Nucleated RBC/100 WBC (Bld) [Ratio] 0 % 0-5 [facility] MCHC Auto (RBC) [Mass/Vol]Or dered By: Dr. Benitez on 07-09-2022 MCHC (RBC) [Mass/Vol] 30.8 g/dL 32-36 [facility] No Panel InformationOrdered By: Dr. Benitez on 07-09-2022 Estimated GFR (MDRD) Amer 57 mL/min >60 [facility] Comment on above: GFR Calc Estimated GFR (MDRD) Non-Af Amer 47 mL/min >60 [facility] Comment on above: Non- GFR Calc Parathyroid Hormone (Intact) 104.7 pg/mL 18.4-80.1 [facility] Vitamin D 25-Hydroxy 37.3 ng/mL [facility] Comment on above: Vitamin D 25(OH) Sta tus Range Deficiency <20 ng/mL (50nmol/L) Insufficiency 20 - 30 ng/mL (50 - 75 nmol/L) Sufficiency 30 - 100 ng/mL (75 - 250 nmol/L) Toxicity >100 ng/mL (>250 nmol/L) Platelets bldOrdered By: Dr. Benitez on 07-09-2022 Platelets (Bld) [#/Vol] 212 10*3/uL 150-450 [facility] Serum or plasma albumin lakeisha urement (mass/volume)Ordered By: Dr. Benitez on 07-09-2022 Albumin [Mass/Vol] 3.1 g/dL 3.2-5.0 [facility] Serum or plasma albumin/glob ulin mass ratioOrdered By: Dr. Benitez on 07-09-2022 Albumin/Globulin [Mass ratio] 0.7 {ratio} 0.9-2.4 [facility] Serum or plasma calcium lakeisha urement (mass/volume)Ordered By: Dr. Benitez on 07-09-2022 Calcium [Mass/Vol] 9.4 mg/dL 8.5-10.1 [facility] Serum or plasma creatinine m easurement (mass/volume)Ordered By: Dr. Benitez on 07-09-2022 Creatinine [Mass/Vol] 1.16 mg/dL 0.55-1.02 [facility] Comment on above: The validity of the calculated GFR & GFRAA in patients over 70 years has not been determined. Clinical correlation is essential. Serum or plasma urea nitroge n measurement (mass/volume)Ordered By: Dr. Benitez on 07-09-2022 Urea nitrogen [Mass/Vol] 27 mg/dL 7-18 [facility] Thin prep Papanicolaou smear with manual screeningOrdered By: Dr. Benitez on 07-09-2022 Thin prep Papanicolaou smear with manual screening 14 U/L 15-37 [facility] Thin prep Papanicolaou smear with manual screening 6 5-15 [facility] Absolute lymphocyte counton 05-20-2022 Lymphocytes Auto (Unsp spec) [#/Vol] 0.94 10*3/uL 0.83-4.51 [facility] Work Phone: [phone] Basophil percentageon 2021 Basophils/100 WBC (Bld) 0.6 % 0-[address] [facility] Work Phone: [phone] Bilirubin [Mass/Vol] 0.30 mg/dL 0.20-1.00 [facility] Work Phone: Comment on above: For patients on eltr ombopag therapy, use of Dimension [place] TBIL is not recommended. Chloride [Moles/Vol] 106 mmol/L 98-107 [facility] Work Phone: [phone] Eosinophils/100 WBC (Bld) 2.7 % 0-5 [facility] Work Phone: [phone] Glucose [Mass/Vol] 110 mg/dL 74-106 [facility] Work Phone: [phone] Comment on above: Fasting Glucose resu lt from 100 to 125 mg/dL suggests IMPAIRED HOMEOSTASIS per A.D.A. criteria. Neutrophils (Bld) [#/Vol] 4.6 10*3/uL 2.0-7.7 [facility] Work Phone: [phone] Neutrophils/100 WBC (Bld) 71.5 % 47-70 [facility] Work Phone: [phone] Potassium [Moles/Vol] 4.2 mmol/L 3.5-5.1 [facility] Work Phone: [phone] Comment on above: Slight Hemolysis, Re sult may be falsely increased. Protein [Mass/Vol] 7.3 g/dL 6.4-8.2 [facility] Work Phone: Sodium [Moles/Vol] 141 mmol/L 136-145 [facility] Work Phone: WBC (Bld) [#/Vol] 6.4 10*3/uL 4.4-11.0 [facility] Work Phone: Blood erythrocytes count (nu mber/volume)on 05-20-2022 RBC (Bld) [#/Vol] 3.56 10*6/uL 4.2-5.4 [facility] Work [facility]: Blood hemoglobin measurement (mass/volume)on 05-20-2022 Hemoglobin (Bld) [Mass/Vol] 10.6 g/dL 12.0-15.0 [facility] Work Phone: Blood lymphocytes/100 leukoc yteson 05-20-2022 Lymphocytes/100 WBC (Bld) 14.8 % 19-41 [facility] Work Phone: Blood monocytes/100 leukocyt eson 05-20-2022 Monocytes/100 WBC (Bld) 9.9 % 0-10 [facility] Work Phone: Blood platelet mean volumeon 05-20-2022 Platelet mean volume (Bld) [Entitic vol] 10.3 fL 6.2-12.0 [facility] Work Phone: [phone] Determination of erythrocyte mean corpuscular volume (MCV)on 05-20-2022 MCV (RBC) [Entitic vol] 94.7 fL 81-99 [facility] Work Phone: Hematocrit Auto (Bld) [Volum e fraction]on 05-20-2022 Hematocrit (Bld) [Volume fraction] 33.7 % 37-47 [facility] Work Phone: [phone] Laboratory - Chemistry and C hemistry - challengeon 05-20-2022 ALP [Catalytic activity/Vol] 87 U/L 45-117 [facility] Work Phone: ALT [Catalytic activity/Vol] 14 U/L 13-56 [facility] Work Phone: [phone] CO2 [Moles/Vol] 28.0 mmol/L 21.0-32.0 [facility] Work Phone: [phone] Globulin (S) [Mass/Vol] 4.2 g/dL 2.2-4.2 [facility] Work Phone: [phone] Natriuretic peptide B (Bld) [Mass/Vol] 74.4 pg/mL 0-100 [facility] Work Phone: [phone] Urea nitrogen/Creatinine [Mass ratio] 22.4 mg/mg 10-20 [facility] Work Phone: Laboratory - Hematology and Cell countson 05-20-2022 Erythrocyte distribution width (RBC) [Entitic vol] 45.6 fL 35.1-43.9 [facility] Work Phone: [phone] Erythrocyte distribution width (RBC) [Ratio] 13.3 % 11.6-14.6 [facility] Work Phone: [phone] Immature granulocytes/100 WBC (Bld) 0.500 % 0.0-0.9 [facility] Work Phone: [phone] Comment on above: IG% - Immature Granu locytes (promyelocytes, myelocytes and metamyelocytes) > 1% indicates that a LEFT SHIFT is Present. MCH (RBC) [Entitic mass] 29.8 pg 27.0-32.0 [facility] Work Phone: Nucleated RBC/100 WBC (Bld) [Ratio] 0 % 0-5 [facility] Work Phone: [phone] MCHC Auto (RBC) [Mass/Vol]on 05-20-2022 MCHC (RBC) [Mass/Vol] 31.5 g/dL 32-36 [facility] Work Phone: No Panel Informationon 05-20 Estimated Creatinine Clearance Calc 21.41 ml/min [facility] Work Phone: [phone] Estimated GFR (MDRD) Amer 45 mL/min >60 [facility] Work Phone: Comment on above: GFR Calc Estimated GFR (MDRD) Non-Af Amer 37 mL/min >60 [facility] Work Phone: Comment on above: Non- GFR Calc Platelets bldon 05-20-2022 Platelets (Bld) [#/Vol] 190 10*3/uL 150-450 [facility] Work Phone: Serum or plasma albumin lakeisha urement (mass/volume)on 05-20-2022 Albumin [Mass/Vol] 3.1 g/dL 3.2-5.0 [facility] Work Phone: Serum or plasma albumin/glob ulin mass ratioon 05-20-2022 Albumin/Globulin [Mass ratio] 0.7 {ratio} 0.9-2.4 [facility] Work Phone: Serum or plasma calcium lakeisha urement (mass/volume)on 05-20-2022 Calcium [Mass/Vol] 9.4 mg/dL 8.5-10.1 [facility] Work Phone: Serum or plasma creatinine m easurement (mass/volume)on 05-20-2022 Creatinine [Mass/Vol] 1.43 mg/dL 0.55-1.02 [facility] Work Phone: Comment on above: The validity of the calculated GFR & GFRAA in patients over 70 years has not been determined. Clinical correlation is essential. Serum or plasma urea nitroge n measurement (mass/volume)on 05-20-2022 Urea nitrogen [Mass/Vol] 32 mg/dL 7-18 [facility] Work Phone: Thin prep Papanicolaou smear with manual screeningon 05-20-2022 Thin prep Papanicolaou smear with manual screening 17 U/L 15-37 [facility] Work Phone: Comment on above: Slight Hemolysis, Re sult may be falsely increased. Thin prep Papanicolaou smear with manual screening 7 5-15 [facility] Work Phone: Absolute lymphocyte counton 05-08-2022 Lymphocytes Auto (Unsp spec) [#/Vol] 0.75 10*3/uL 0.83-4.51 [facility] Work Phone: Basophil percentageon 2021 Basophil percentage 0 SEEN /hpf 0-5 [facility] Work Phone: Basophils/100 WBC (Bld) 0.4 % 0-1 [facility] Work Phone: Bilirubin [Mass/Vol] 0.30 mg/dL 0.20-1.00 [facility] Work Phone: Comment on above: For patients on eltr ombopag therapy, use of Dimension [place] TBIL is not recommended. Chloride [Moles/Vol] 106 mmol/L 98-107 [facility] Work Phone: Eosinophils/100 WBC (Bld) 1.4 % 0-5 [facility] Work Phone: Glucose [Mass/Vol] 94 mg/dL 74-106 [facility] Work Phone: Neutrophils (Bld) [#/Vol] 5.8 10*3/uL 2.0-7.7 [facility] Work Phone: Neutrophils/100 WBC (Bld) 79.8 % 47-70 [facility] Work Phone: Potassium [Moles/Vol] 4.5 mmol/L 3.5-5.1 [facility] Work Phone: Protein [Mass/Vol] 7.3 g/dL 6.4-8.2 [facility] Work Phone: Sodium [Moles/Vol] 140 mmol/L 136-145 [facility] Work Phone: WBC (Bld) [#/Vol] 7.3 10*3/uL 4.4-11.0 [facility] Work Phone: Bilirubin Test strip Ql (U)o n 05-08-2022 Bilirubin Ql (U) Negative Negative [facility] Work Phone: Blood erythrocytes count (nu mber/volume)on 05-08-2022 RBC (Bld) [#/Vol] 3.69 10*6/uL 4.2-5.4 [facility] Work Phone: [phone] Blood hemoglobin measurement (mass/volume)on 05-08-2022 Hemoglobin (Bld) [Mass/Vol] 10.7 g/dL 12.0-15.0 [facility] Work Phone: Blood lymphocytes/100 leukoc yteson 05-08-2022 Lymphocytes/100 WBC (Bld) 10.3 % 19-41 [facility] Work Phone: Blood monocytes/100 leukocyt eson 05-08-2022 Monocytes/100 WBC (Bld) 7.7 % 0-10 [facility] Work Phone: Blood platelet mean volumeon 05-08-2022 Platelet mean volume (Bld) [Entitic vol] 10.5 fL 6.2-12.0 [facility] Work Phone: [phone] Determination of erythrocyte mean corpuscular volume (MCV)on 05-08-2022 MCV (RBC) [Entitic vol] 93.0 fL 81-99 [facility] Work Phone: Hematocrit Auto (Bld) [Volum e fraction]on 05-08-2022 Hematocrit (Bld) [Volume fraction] 34.3 % 37-47 [facility] Work Phone: [phone] INR in Blood by Coagulation assayon 05-08-2022 INR Coag (Bld) [Relative time] 1.1 {INR} [facility] Work Phone: [phone] Ketones Test strip Ql (U)on 05-08-2022 Ketones Ql (U) Negative Negative [facility] Work Phone: [phone] Laboratory - Chemistry and C hemistry - challengeon 05-08-2022 ALP [Catalytic activity/Vol] 80 U/L 45-117 [facility] Work Phone: ALT [Catalytic activity/Vol] 14 U/L 13-56 [facility] Work Phone: [phone] CO2 [Moles/Vol] 28.0 mmol/L 21.0-32.0 [facility] Work Phone: [phone] Globulin (S) [Mass/Vol] 4.1 g/dL 2.2-4.2 [facility] Work Phone: [phone] Natriuretic peptide B (Bld) [Mass/Vol] 131.4 pg/mL 0-100 [facility] Work Phone: Urea nitrogen/Creatinine [Mass ratio] 22.7 mg/mg 10-20 [facility] Work Phone: Laboratory - Coagulationon 0 05-08-2022 aPTT Coag (Bld) [Time] 33.6 s 24.1-36.[address] [facility] Work Phone: PT Coag (PPP) [Time] 13.7 s 11.7-[facility]: [phone] Laboratory - Hematology and Cell countson 05-08-2022 Erythrocyte distribution width (RBC) [Entitic vol] 45.5 fL 35.1-43.9 [facility] Work Phone: Erythrocyte distribution width (RBC) [Ratio] 13.3 % 11.6-14.6 [facility] Work Phone: [phone] Immature granulocytes/100 WBC (Bld) 0.400 % 0.0-0.9 [facility] Work Phone: [phone] Comment on above: IG% - Immature Granu locytes (promyelocytes, myelocytes and metamyelocytes) > 1% indicates that a LEFT SHIFT is Present. MCH (RBC) [Entitic mass] 29.0 pg 27.0-32.0 [facility] Work Phone: Nucleated RBC/100 WBC (Bld) [Ratio] 0 % 0-5 [facility] Work Phone: MCHC Auto (RBC) [Mass/Vol]on 05-08-2022 MCHC (RBC) [Mass/Vol] 31.2 g/dL 32-36 [facility] Work [facility]: Mucus LM Ql (Urine sed)on Mucus Ql (Urine sed) 0 SEEN /hpf [facility] Work Phone: Nitrite Test strip Ql (U)on 05-08-2022 Nitrite Ql (U) Negative Negative [facility] Work Phone: No Panel Informationon 05-08 Estimated Creatinine Clearance Calc 23.20 ml/min [facility] Work Phone: Estimated GFR (MDRD) Amer 49 mL/min >60 [facility] Work Phone: Comment on above: GFR Calc Estimated GFR (MDRD) Non-Af Amer 41 mL/min >60 [facility] Work Phone: Comment on above: Non- GFR Calc Troponin I High Sensitivity 8 pg/mL 3.0-54.0 [facility] Work Phone: Comment on above: Please Note: New Jessica t Units and Gender Specific Reference Ranges. For more information see Policy Stat Procedure [place] High Sensitivity Troponin (TNIH) and attachments. Platelets bldon 05-08-2022 Platelets (Bld) [#/Vol] 190 10*3/uL 150-450 [facility] Work Phone: Protein Test strip Ql (U)on 05-08-2022 Protein Ql (U) Negative Negative [facility] Work Phone: Serum or plasma albumin lakeisha urement (mass/volume)on 05-08-2022 Albumin [Mass/Vol] 3.2 g/dL 3.2-5.0 [facility] Work Phone: Serum or plasma albumin/glob ulin mass ratioon 05-08-2022 Albumin/Globulin [Mass ratio] 0.8 {ratio} 0.9-2.4 [facility] Work Phone: Serum or plasma calcium lakeisha urement (mass/volume)on 05-08-2022 Calcium [Mass/Vol] 9.2 mg/dL 8.5-10.1 [facility] Work Phone: Serum or plasma creatinine m easurement (mass/volume)on 05-08-2022 Creatinine [Mass/Vol] 1.32 mg/dL 0.55-1.02 [facility] Work Phone: Comment on above: The validity of the calculated GFR & GFRAA in patients over 70 years has not been determined. Clinical correlation is essential. Serum or plasma urea nitroge n measurement (mass/volume)on 05-08-2022 Urea nitrogen [Mass/Vol] 30 mg/dL 7-18 [facility] Work Phone: Squamous epithelial cells de tection in urine sediment by light microscopyon 05-08-2022 Epithelial cells.squamous LM Ql (Urine sed) 0-5 SEEN /hpf 5-10 [facility] Work Phone: Thin prep Papanicolaou smear with manual screeningon 05-08-2022 Thin prep Papanicolaou smear with manual screening 13 U/L 15-37 [facility] Work Phone: Thin prep Papanicolaou smear with manual screening 6 5-15 [facility] Work Phone: Urine blood detectionon 04-26 RBC Ql (U) Negative Negative [facility] Work Phone: RBC Ql (U) 0-5 SEEN /hpf 0-5 [facility] Work Phone: Urine clarityon 05-08-2022 Clarity (U) Clear Clear [facility] Work Phone: Urine color determinationon 05-08-2022 Color (U) Yellow Yellow [facility] Work Phone: Urine glucose detectionon Glucose Ql (U) Normal mg/dl Normal [facility] Work Phone: Urine leukocyte esterase det ection by dipstickon 05-08-2022 Leukocyte esterase Test strip Ql (U) Negative Negative [facility] Work Phone: Urine pHon 05-08-2022 pH (U) 6.5 [pH] 5.0 - 8.0 [facility] Work Phone: Urine sediment bacteria coun t by microscopy (number/high power field)on 05-08-2022 Bacteria LM.HPF (Urine sed) [#/Area] RARE /hpf None Seen [facility] Work Phone: [phone] Urine specific gravity measu rementon 05-08-2022 Specific gravity (U) [Rel density] 1.010 1.002-1.03 0 [facility] Work Phone: Urobilinogen Auto test strip Ql (U)on 05-08-2022 Urobilinogen Ql (U) Normal mg/dl Normal [facility] Work Phone: Absolute lymphocyte counton 03-19-2022 Lymphocytes Auto (Unsp spec) [#/Vol] 1.22 10*3/uL 0.83-4.51 [facility] Work Phone: Basophil percentageon 2021 Basophils/100 WBC (Bld) 0.6 % 0-1 [facility] Work Phone: Bilirubin [Mass/Vol] 0.30 mg/dL 0.20-1.00 [facility] Work Phone: Comment on above: For patients on eltr ombopag therapy, use of Dimension [place] TBIL is not recommended. Chloride [Moles/Vol] 107 mmol/L 98-107 [facility] Work Phone: Eosinophils/100 WBC (Bld) 2.2 % 0-5 [facility] Work Phone: Glucose [Mass/Vol] 87 mg/dL 74-106 [facility] Work Phone: Neutrophils (Bld) [#/Vol] 6.1 10*3/uL 2.0-7.7 [facility] Work Phone: Neutrophils/100 WBC (Bld) 74.2 % 47-70 [facility] Work Phone: Potassium [Moles/Vol] 5.1 mmol/L 3.5-5.1 [facility] Work Phone: Protein [Mass/Vol] 7.8 g/dL 6.4-8.2 [facility] Work Phone: Sodium [Moles/Vol] 136 mmol/L 136-145 [facility] Work Phone: WBC (Bld) [#/Vol] 8.2 10*3/uL 4.4-11.0 [facility] Work Phone: Blood erythrocytes count (nu mber/volume)on 03-19-2022 RBC (Bld) [#/Vol] 3.73 10*6/uL 4.2-5.4 [facility] Work Phone: [phone] Blood hemoglobin measurement (mass/volume)on 03-19-2022 Hemoglobin (Bld) [Mass/Vol] 11.2 g/dL 12.0-15.0 [facility] Work Phone: Blood lymphocytes/100 leukoc yteson 03-19-2022 Lymphocytes/100 WBC (Bld) 15.0 % 19-41 [facility] Work Phone: Blood monocytes/100 leukocyt eson 03-19-2022 Monocytes/100 WBC (Bld) 7.6 % 0-10 [facility] Work Phone: Blood platelet mean volumeon 03-19-2022 Platelet mean volume (Bld) [Entitic vol] 10.3 fL 6.2-12.0 [facility] Work Phone: [phone] Determination of erythrocyte mean corpuscular volume (MCV)on 03-19-2022 MCV (RBC) [Entitic vol] 93.8 fL 81-99 [facility] Work Phone: Hematocrit Auto (Bld) [Volum e fraction]on 03-19-2022 Hematocrit (Bld) [Volume fraction] 35.0 % 37-47 [facility] Work Phone: [phone] Laboratory - Chemistry and C hemistry - challengeon 03-19-2022 Albumin [Mass/Vol] 3.7 g/dL 2.9-4.4 [facility] Work Phone: ALP [Catalytic activity/Vol] 80 U/L 45-117 [facility] Work Phone: ALT [Catalytic activity/Vol] 17 U/L 13-56 [facility] Work Phone: CO2 [Moles/Vol] 24.0 mmol/L 21.0-32.0 [facility] Work Phone: [phone] Globulin (S) [Mass/Vol] 4.4 g/dL 2.2-4.2 [facility] Work Phone: [phone] Urea nitrogen/Creatinine [Mass ratio] 32.5 mg/mg 10-20 [facility] Work Phone: Laboratory - Hematology and Cell countson 03-19-2022 Erythrocyte distribution width (RBC) [Entitic vol] 46.2 fL 35.1-43.9 [facility] Work Phone: [phone] Erythrocyte distribution width (RBC) [Ratio] 13.4 % 11.6-14.6 [facility] Work Phone: [phone] Immature granulocytes/100 WBC (Bld) 0.400 % 0.0-0.9 [facility] Work Phone: [phone] Comment on above: IG% - Immature Granu locytes (promyelocytes, myelocytes and metamyelocytes) > 1% indicates that a LEFT SHIFT is Present. MCH (RBC) [Entitic mass] 30.0 pg 27.0-32.0 [facility] Work Phone: [phone] Nucleated RBC/100 WBC (Bld) [Ratio] 0 % 0-5 [facility] Work Phone: [phone] MCHC Auto (RBC) [Mass/Vol]on 03-19-2022 MCHC (RBC) [Mass/Vol] 32.0 g/dL 32-36 [facility] Work Phone: [phone] No Panel Informationon 03-19 Addendum Document Comment . [facility] Work Phone: Comment on above: Faint band in gamma region suspicious for monoclonalimmunoglobulin. This band may represent a benign spike asseen in older people or could be a paraprotein as seen inMultiple Myeloma, Waldenstrom's Macroglobulinemia orLymphoma. Depending on clinical circumstances, furtherdiagnostic studies may include serum immunofixation orserum free light chain quantitation.Performed at: [facility] [address] [id number] Director: Zane Barroso PhD, Phone: [phone] [id number] 0.2 g/dL 0.0-0.4 [facility] Work Phone: [id number] 0.8 g/dL 0.4-1.0 [facility] Work Phone: Estimated GFR (MDRD) Amer 40 mL/min >60 [facility] Work Phone: Comment on above: GFR Calc Estimated GFR (MDRD) Non-Af Amer 33 mL/min >60 [facility] Work Phone: Comment on above: Non- GFR Calc Gamma Globulins 1.6 g/dL 0.4-1.8 [facility] Work Phone: Platelets bldon 03-19-2022 Platelets (Bld) [#/Vol] 228 10*3/uL 150-450 [facility] Work Phone: Protein Fractions Elph [Inte rp]on 03-19-2022 Protein Fractions [Interp] Comment . [facility] Work Phone: Comment on above: Protein electrophore sis scan will follow via computer,mail, or cellophane bath mixer delivery. Serum albumin to globulin ra jean-paul by protein electrophoresison 03-19-2022 Albumin/Globulin Elph [Mass ratio] 1.0 0.7-1.7 [facility] Work Phone: Serum globulin measurement ( mass/volume)on 03-19-2022 Globulin (S) [Mass/Vol] 3.7 g/dL 2.2-3.9 [facility] Work Phone: Serum or plasma C reactive p rotein measurement (mass/volume)on 03-19-2022 CRP [Mass/Vol] mg/L 0.0-3.0 [facility] Work Phone: Comment on above: C-Reactive Protein ( CRP) provides useful information for thediagnosis, therapy and monitoring of inflammatory processesand associated diseases. For the evaluation of Relative Riskfor Cardiovascular Disease, a High Sensitivity CRP (HSCRP)should be ordered. Serum or plasma albumin lakeisha urement (mass/volume)on 03-19-2022 Albumin [Mass/Vol] 3.4 g/dL 3.2-5.0 [facility] Work Phone: Serum or plasma albumin/glob ulin mass ratioon 03-19-2022 Albumin/Globulin [Mass ratio] 0.8 {ratio} 0.9-2.4 [facility] Work Phone: Serum or plasma beta globuli n measurement by electrophoresis (mass/volume)on 03-19-2022 Beta globulin Elph [Mass/Vol] 1.1 g/dL 0.7-1.3 [facility] Work Phone: Serum or plasma calcium lakeisha urement (mass/volume)on 03-19-2022 Calcium [Mass/Vol] 9.3 mg/dL 8.5-10.1 [facility] Work Phone: Serum or plasma creatinine m easurement (mass/volume)on 03-19-2022 Creatinine [Mass/Vol] 1.60 mg/dL 0.55-1.02 [facility] Work Phone: Comment on above: The validity of the calculated GFR & GFRAA in patients over 70 years has not been determined. Clinical correlation is essential. Serum or plasma urea nitroge n measurement (mass/volume)on 03-19-2022 Urea nitrogen [Mass/Vol] 52 mg/dL 7-18 [facility] Work Phone: Thin prep Papanicolaou smear with manual screeningon 03-19-2022 Thin prep Papanicolaou smear with manual screening 14 U/L 15-37 [facility] Work Phone: Thin prep Papanicolaou smear with manual screening 5 5-15 [facility] Work Phone: Thin prep Papanicolaou smear with manual screening See comment [facility] Work Phone: [phone] Comment on above: ASYMMETRICAL GAMMA Total protein bloodon 2021 Protein [Mass/Vol] 7.4 g/dL 6.0-8.5 [facility] Work Phone: [phone] Absolute lymphocyte counton 01-18-2022 Lymphocytes Auto (Unsp spec) [#/Vol] 0.89 10*3/uL 0.83-4.51 [facility] Work Phone: Basophil percentageon 2021 Basophils/100 WBC (Bld) 0.0 % 0-1 [facility] Work Phone: Chloride [Moles/Vol] 104 mmol/L 98-107 [facility] Work Phone: Eosinophils/100 WBC (Bld) 1.3 % 0-5 [facility] Work Phone: Glucose [Mass/Vol] 92 mg/dL 74-106 [facility] Work Phone: Neutrophils (Bld) [#/Vol] 1.7 10*3/uL 2.0-7.7 [facility] Work Phone: Neutrophils/100 WBC (Bld) 55.8 % 47-70 [facility] Work Phone: Potassium [Moles/Vol] 4.7 mmol/L 3.5-5.1 [facility] Work Phone: [phone] Comment on above: Moderate Hemolysis, Result may be falsely increased. Sodium [Moles/Vol] 137 mmol/L 136-145 [facility] Work Phone: WBC (Bld) [#/Vol] 3.0 10*3/uL 4.4-11.0 [facility] Work Phone: Blood erythrocytes count (nu mber/volume)on 01-18-2022 RBC (Bld) [#/Vol] 4.02 10*6/uL 4.2-5.4 [facility] Work Phone: [phone] Blood hemoglobin measurement (mass/volume)on 01-18-2022 Hemoglobin (Bld) [Mass/Vol] 11.5 g/dL 12.0-15.0 [facility] Work Phone: Blood lymphocytes/100 leukoc yteson 01-18-2022 Lymphocytes/100 WBC (Bld) 29.6 % 19-41 [facility] Work Phone: Blood monocytes/100 leukocyt eson 01-18-2022 Monocytes/100 WBC (Bld) 13.0 % 0-10 [facility] Work Phone: Blood platelet mean volumeon 01-18-2022 Platelet mean volume (Bld) [Entitic vol] 10.5 fL 6.2-12.0 [facility] Work Phone: [phone] Determination of erythrocyte mean corpuscular volume (MCV)on 01-18-2022 MCV (RBC) [Entitic vol] 88.8 fL 81-99 [facility] Work Phone: [phone] Hematocrit Auto (Bld) [Volum e fraction]on 01-18-2022 Hematocrit (Bld) [Volume fraction] 35.7 % 37-47 [facility] Work Phone: [phone] Laboratory - Chemistry and C hemistry - challengeon 01-18-2022 CO2 [Moles/Vol] 27.0 mmol/L 21.0-32.0 [facility] Work Phone: [phone] Urea nitrogen/Creatinine [Mass ratio] 30.2 mg/mg 10-20 [facility] Work Phone: Laboratory - Hematology and Cell countson 01-18-2022 Erythrocyte distribution width (RBC) [Entitic vol] 45.8 fL 35.1-43.9 [facility] Work Phone: [phone] Erythrocyte distribution width (RBC) [Ratio] 14.0 % 11.6-14.6 [facility] Work Phone: [phone] Immature granulocytes/100 WBC (Bld) 0.300 % 0.0-0.9 [facility] Work Phone: Comment on above: IG% - Immature Granu locytes (promyelocytes, myelocytes and metamyelocytes) > 1% indicates that a LEFT SHIFT is Present. MCH (RBC) [Entitic mass] 28.6 pg 27.0-32.0 [facility] Work Phone: Nucleated RBC/100 WBC (Bld) [Ratio] 0 % 0-5 [facility] Work Phone: MCHC Auto (RBC) [Mass/Vol]on 01-18-2022 MCHC (RBC) [Mass/Vol] 32.2 g/dL 32-36 [facility] Work Phone: No Panel Informationon 01-18 Estimated Creatinine Clearance Calc 18.90 ml/min [facility] Work Phone: Estimated GFR (MDRD) Amer 39 mL/min >60 [facility] Work Phone: Comment on above: GFR Calc Estimated GFR (MDRD) Non-Af Amer 32 mL/min >60 [facility] Work Phone: Comment on above: Non- GFR Calc Platelets bldon 01-18-2022 Platelets (Bld) [#/Vol] 172 10*3/uL 150-450 [facility] Work Phone: Serum or plasma calcium lakeisha urement (mass/volume)on 01-18-2022 Calcium [Mass/Vol] 9.4 mg/dL 8.5-10.1 [facility] Work Phone: Serum or plasma creatinine m easurement (mass/volume)on 01-18-2022 Creatinine [Mass/Vol] 1.62 mg/dL 0.55-1.02 [facility] Work Phone: Comment on above: The validity of the calculated GFR & GFRAA in patients over 70 years has not been determined. Clinical correlation is essential. Serum or plasma urea nitroge n measurement (mass/volume)on 01-18-2022 Urea nitrogen [Mass/Vol] 49 mg/dL 7-18 [facility] Work Phone: Thin prep Papanicolaou smear with manual screeningon 01-18-2022 Thin prep Papanicolaou smear with manual screening 6 5-15 [facility] Work Phone: Absolute lymphocyte counton 01-16-2022 Lymphocytes Auto (Unsp spec) [#/Vol] 0.70 10*3/uL 0.83-4.51 [facility] Work Phone: Basophil percentageon 2021 Basophils/100 WBC (Bld) 0.3 % 0-1 [facility] Work Phone: Chloride [Moles/Vol] 105 mmol/L 98-107 [facility] Work Phone: Eosinophils/100 WBC (Bld) 0.9 % 0-5 [facility] Work Phone: Glucose [Mass/Vol] 91 mg/dL 74-106 [facility] Work Phone: Neutrophils (Bld) [#/Vol] 2.5 10*3/uL 2.0-7.7 [facility] Work Phone: Neutrophils/100 WBC (Bld) 70.5 % 47-70 [facility] Work Phone: Potassium [Moles/Vol] 4.7 mmol/L 3.5-5.1 [facility] Work Phone: Comment on above: Slight Hemolysis, Re sult may be falsely increased. Sodium [Moles/Vol] 136 mmol/L 136-145 [facility] Work Phone: WBC (Bld) [#/Vol] 3.5 10*3/uL 4.4-11.0 [facility] Work Phone: Blood erythrocytes count (nu mber/volume)on 01-16-2022 RBC (Bld) [#/Vol] 4.41 10*6/uL 4.2-5.4 [facility] Work Phone: Blood hemoglobin measurement (mass/volume)on 01-16-2022 Hemoglobin (Bld) [Mass/Vol] 12.7 g/dL 12.0-15.0 [facility] Work Phone: Blood lymphocytes/100 leukoc yteson 01-16-2022 Lymphocytes/100 WBC (Bld) 20.2 % 19-41 [facility] Work Phone: Blood monocytes/100 leukocyt eson 01-16-2022 Monocytes/100 WBC (Bld) 7.8 % 0-10 [facility] Work Phone: Blood platelet mean volumeon 01-16-2022 Platelet mean volume (Bld) [Entitic vol] 10.4 fL 6.2-12.0 [facility] Work Phone: [phone] Determination of erythrocyte mean corpuscular volume (MCV)on 01-16-2022 MCV (RBC) [Entitic vol] 90.0 fL 81-99 [facility] Work Phone: [phone] Hematocrit Auto (Bld) [Volum e fraction]on 01-16-2022 Hematocrit (Bld) [Volume fraction] 39.7 % 37-47 [facility] Work Phone: [phone] Laboratory - Chemistry and C hemistry - challengeon 01-16-2022 CO2 [Moles/Vol] 26.0 mmol/L 21.0-32.0 [facility] Work Phone: [phone] Natriuretic peptide B (Bld) [Mass/Vol] 168.5 pg/mL 0-100 [facility] Work Phone: [phone] Urea nitrogen/Creatinine [Mass ratio] 25.4 mg/mg 10-20 [facility] Work Phone: Laboratory - Hematology and Cell countson 01-16-2022 Erythrocyte distribution width (RBC) [Entitic vol] 46.9 fL 35.1-43.9 [facility] Work Phone: [phone] Erythrocyte distribution width (RBC) [Ratio] 14.0 % 11.6-14.6 [facility] Work Phone: [phone] Immature granulocytes/100 WBC (Bld) 0.300 % 0.0-0.9 [facility] Work Phone: Comment on above: IG% - Immature Granu locytes (promyelocytes, myelocytes and metamyelocytes) > 1% indicates that a LEFT SHIFT is Present. MCH (RBC) [Entitic mass] 28.8 pg 27.0-32.0 [facility] Work Phone: Nucleated RBC/100 WBC (Bld) [Ratio] 0 % 0-5 [facility] Work Phone: MCHC Auto (RBC) [Mass/Vol]on 01-16-2022 MCHC (RBC) [Mass/Vol] 32.0 g/dL 32-36 [facility] Work Phone: No Panel Informationon 01-16 Estimated Creatinine Clearance Calc 48.89 ml/min [facility] Work Phone: Estimated GFR (MDRD) Amer 56 mL/min >60 [facility] Work Phone: Comment on above: GFR Calc Estimated GFR (MDRD) Non-Af Amer 46 mL/min >60 [facility] Work Phone: Comment on above: Non- GFR Calc Troponin I High Sensitivity 10 pg/mL 3.0-54.0 [facility] Work Phone: Comment on above: Please Note: New Jessica t Units and Gender Specific Reference Ranges. For more information see Policy Stat Procedure [place] High Sensitivity Troponin (TNIH) and attachments. SARS-CoV-2 & FLU Antigen (Rapid) SARS-CoV-2 (COVID 19) [facility] Work Phone: Platelets bldon 01-16-2022 Platelets (Bld) [#/Vol] 166 10*3/uL 150-450 [facility] Work Phone: Serum or plasma calcium lakeisha urement (mass/volume)on 01-16-2022 Calcium [Mass/Vol] 9.6 mg/dL 8.5-10.1 [facility] Work Phone: Serum or plasma creatinine m easurement (mass/volume)on 01-16-2022 Creatinine [Mass/Vol] 1.18 mg/dL 0.55-1.02 [facility] Work Phone: Comment on above: The validity of the calculated GFR & GFRAA in patients over 70 years has not been determined. Clinical correlation is essential. Serum or plasma urea nitroge n measurement (mass/volume)on 01-16-2022 Urea nitrogen [Mass/Vol] 30 mg/dL 7-18 [facility] Work Phone: Thin prep Papanicolaou smear with manual screeningon 01-16-2022 Thin prep Papanicolaou smear with manual screening 5 5-15 [facility] Work Phone: [phone] Absolute lymphocyte counton 12-25-2021 Lymphocytes Auto (Unsp spec) [#/Vol] 0.82 10*3/uL 0.83-4.51 [facility] Work Phone: [phone] Basophil percentageon 2021 Basophils/100 WBC (Bld) 0.5 % 0-1 [facility] Work Phone: [phone] Bilirubin [Mass/Vol] 0.50 mg/dL 0.20-1.00 [facility] Work Phone: Comment on above: For patients on eltr ombopag therapy, use of Dimension [place] TBIL is not recommended. Chloride [Moles/Vol] 104 mmol/L 98-107 [facility] Work Phone: [phone] Eosinophils/100 WBC (Bld) 2.3 % 0-5 [facility] Work Phone: [phone] Glucose [Mass/Vol] 94 mg/dL 74-106 [facility] Work Phone: [phone] Neutrophils (Bld) [#/Vol] 4.1 10*3/uL 2.0-7.7 [facility] Work Phone: Neutrophils/100 WBC (Bld) 71.4 % 47-70 [facility] Work Phone: [phone] Potassium [Moles/Vol] 4.0 mmol/L 3.5-5.1 [facility] Work Phone: [phone] Protein [Mass/Vol] 7.4 g/dL 6.4-8.2 [facility] Work Phone: Sodium [Moles/Vol] 138 mmol/L 136-145 [facility] Work [facility]: WBC (Bld) [#/Vol] 5.8 10*3/uL 4.4-11.0 [facility] Work Phone: Blood erythrocytes count (nu mber/volume)on 12-25-2021 RBC (Bld) [#/Vol] 4.21 10*6/uL 4.2-5.4 [facility] Work Phone: [phone] Blood hemoglobin measurement (mass/volume)on 12-25-2021 Hemoglobin (Bld) [Mass/Vol] 11.9 g/dL 12.0-15.0 [facility] Work Phone: Blood lymphocytes/100 leukoc yteson 12-25-2021 Lymphocytes/100 WBC (Bld) 14.2 % 19-41 [facility] Work Phone: Blood monocytes/100 leukocyt eson 12-25-2021 Monocytes/100 WBC (Bld) 11.3 % 0-10 [facility] Work Phone: Blood platelet mean volumeon 12-25-2021 Platelet mean volume (Bld) [Entitic vol] 11.0 fL 6.2-12.0 [facility] Work Phone: [phone] Determination of erythrocyte mean corpuscular volume (MCV)on 12-25-2021 MCV (RBC) [Entitic vol] 90.3 fL 81-99 [facility] Work Phone: Hematocrit Auto (Bld) [Volum e fraction]on 12-25-2021 Hematocrit (Bld) [Volume fraction] 38.0 % 37-47 [facility] Work Phone: [phone] Laboratory - Chemistry and C hemistry - challengeon 12-25-2021 ALP [Catalytic activity/Vol] 71 U/L 45-117 [facility] Work Phone: [phone] ALT [Catalytic activity/Vol] 16 U/L 13-56 [facility] Work Phone: CO2 [Moles/Vol] 28.0 mmol/L 21.0-32.0 [facility] Work Phone: Globulin (S) [Mass/Vol] 4.0 g/dL 2.2-4.2 [facility] Work Phone: [phone] Magnesium [Mass/Vol] 2.3 mg/dL [facility]: Natriuretic peptide B (Bld) [Mass/Vol] 140.7 pg/mL 0-100 [facility] Work Phone: [phone] Urea nitrogen/Creatinine [Mass ratio] 21.5 mg/mg 10-20 [facility] Work Phone: [phone] Laboratory - Hematology and Cell countson 12-25-2021 Erythrocyte distribution width (RBC) [Entitic vol] 48.8 fL 35.1-43.9 [facility] Work Phone: [phone] Erythrocyte distribution width (RBC) [Ratio] 14.8 % 11.6-14.6 [facility] Work Phone: [phone] Immature granulocytes/100 WBC (Bld) 0.300 % 0.0-0.9 [facility] Work Phone: [phone] Comment on above: IG% - Immature Granu locytes (promyelocytes, myelocytes and metamyelocytes) > 1% indicates that a LEFT SHIFT is Present. MCH (RBC) [Entitic mass] 28.3 pg 27.0-32.0 [facility] Work Phone: Nucleated RBC/100 WBC (Bld) [Ratio] 0 % 0-5 [facility] Work Phone: MCHC Auto (RBC) [Mass/Vol]on 12-25-2021 MCHC (RBC) [Mass/Vol] 31.3 g/dL 32-36 [facility] Work Phone: [phone] No Panel Informationon 12-25 Estimated GFR (MDRD) Amer 63 mL/min >60 [facility] Work Phone: Comment on above: GFR Calc Estimated GFR (MDRD) Non-Af Amer 52 mL/min >60 [facility] Work Phone: Comment on above: Non- GFR Calc Parathyroid Hormone (Intact) 162.9 pg/mL 18.4-80.1 [facility] Work Phone: Vitamin D 25-Hydroxy 33.8 ng/mL [facility] Work Phone: Comment on above: Vitamin D 25(OH) Sta tus Range Deficiency <20 ng/mL (50nmol/L) Insufficiency 20 - 30 ng/mL (50 - 75 nmol/L) Sufficiency 30 - 100 ng/mL (75 - 250 nmol/L) Toxicity >100 ng/mL (>250 nmol/L) Platelets bldon 12-25-2021 Platelets (Bld) [#/Vol] 192 10*3/uL 150-450 [facility] Work Phone: Serum or plasma albumin lakeisha urement (mass/volume)on 12-25-2021 Albumin [Mass/Vol] 3.4 g/dL 3.2-5.0 [facility] Work Phone: Serum or plasma albumin/glob ulin mass ratioon 12-25-2021 Albumin/Globulin [Mass ratio] 0.8 {ratio} 0.9-2.4 [facility] Work Phone: Serum or plasma calcium lakeisha urement (mass/volume)on 12-25-2021 Calcium [Mass/Vol] 9.4 mg/dL 8.5-10.1 [facility] Work Phone: Serum or plasma creatinine m easurement (mass/volume)on 12-25-2021 Creatinine [Mass/Vol] 1.07 mg/dL 0.55-1.02 [facility] Work Phone: Comment on above: The validity of the calculated GFR & GFRAA in patients over 70 years has not been determined. Clinical correlation is essential. Serum or plasma urea nitroge n measurement (mass/volume)on 12-25-2021 Urea nitrogen [Mass/Vol] 23 mg/dL 7-18 [facility] Work Phone: Thin prep Papanicolaou smear with manual screeningon 12-25-2021 Thin prep Papanicolaou smear with manual screening 19 U/L 15-37 [facility] Work Phone: Thin prep Papanicolaou smear with manual screening 6 5-15 [facility] Work Phone: Absolute lymphocyte counton 11-08-2021 Lymphocytes Auto (Unsp spec) [#/Vol] 1.36 10*3/uL 0.83-4.51 [facility] Work Phone: Basophil percentageon 2021 Basophils/100 WBC (Bld) 0.8 % 0-1 [facility] Work Phone: [phone] Bilirubin [Mass/Vol] 0.60 mg/dL 0.20-1.00 [facility] Work Phone: Comment on above: For patients on eltr ombopag therapy, use of Dimension [place] TBIL is not recommended. Chloride [Moles/Vol] 104 mmol/L 98-107 [facility] Work Phone: Eosinophils/100 WBC (Bld) 1.5 % 0-5 [facility] Work Phone: Glucose [Mass/Vol] 84 mg/dL 74-106 [facility] Work Phone: Neutrophils (Bld) [#/Vol] 5.2 10*3/uL 2.0-7.7 [facility] Work Phone: Neutrophils/100 WBC (Bld) 69.4 % 47-70 [facility] Work Phone: Potassium [Moles/Vol] 4.4 mmol/L 3.5-5.1 [facility] Work Phone: [phone] Protein [Mass/Vol] 8.4 g/dL 6.4-8.2 [facility] Work Phone: Sodium [Moles/Vol] 137 mmol/L 136-145 [facility] Work Phone: WBC (Bld) [#/Vol] 7.5 10*3/uL 4.4-11.0 [facility] Work Phone: Blood erythrocytes count (nu mber/volume)on 11-08-2021 RBC (Bld) [#/Vol] 4.64 10*6/uL 4.2-5.4 [facility]: Blood hemoglobin measurement (mass/volume)on 11-08-2021 Hemoglobin (Bld) [Mass/Vol] 13.0 g/dL 12.0-15.0 [facility] Work Phone: Blood lymphocytes/100 leukoc yteson 11-08-2021 Lymphocytes/100 WBC (Bld) 18.1 % 19-41 [facility] Work Phone: Blood monocytes/100 leukocyt eson 11-08-2021 Monocytes/100 WBC (Bld) 9.8 % 0-10 [facility] Work Phone: Blood platelet mean volumeon 11-08-2021 Platelet mean volume (Bld) [Entitic vol] 10.8 fL 6.2-12.0 [facility] Work Phone: [phone] Determination of erythrocyte mean corpuscular volume (MCV)on 11-08-2021 MCV (RBC) [Entitic vol] 88.8 fL 81-99 [facility] Work Phone: Hematocrit Auto (Bld) [Volum e fraction]on 11-08-2021 Hematocrit (Bld) [Volume fraction] 41.2 % 37-47 [facility] Work Phone: [phone] Laboratory - Chemistry and C hemistry - challengeon 11-08-2021 ALP [Catalytic activity/Vol] 78 U/L 45-117 [facility] Work Phone: ALT [Catalytic activity/Vol] 17 U/L 13-56 [facility] Work Phone: CO2 [Moles/Vol] 28.0 mmol/L 21.0-32.0 [facility] Work Phone: Globulin (S) [Mass/Vol] 4.6 g/dL 2.2-4.2 [facility] Work Phone: Urea nitrogen/Creatinine [Mass ratio] 27.5 mg/mg 10-20 [facility] Work Phone: Laboratory - Hematology and Cell countson 11-08-2021 Erythrocyte distribution width (RBC) [Entitic vol] 45.7 fL 35.1-43.9 [facility] Work Phone: Erythrocyte distribution width (RBC) [Ratio] 14.3 % 11.6-14.6 [facility] Work Phone: Immature granulocytes/100 WBC (Bld) 0.400 % 0.0-0.9 [facility] Work Phone: Comment on above: IG% - Immature Granu locytes (promyelocytes, myelocytes and metamyelocytes) > 1% indicates that a LEFT SHIFT is Present. MCH (RBC) [Entitic mass] 28.0 pg 27.0-32.0 [facility] Work Phone: Nucleated RBC/100 WBC (Bld) [Ratio] 0 % 0-5 [facility] Work Phone: MCHC Auto (RBC) [Mass/Vol]on 11-08-2021 MCHC (RBC) [Mass/Vol] 31.6 g/dL 32-36 [facility] Work [facility]: No Panel Informationon 11-08 Estimated GFR (MDRD) Amer 45 mL/min >60 [facility] Work Phone: Comment on above: GFR Calc Estimated GFR (MDRD) Non-Af Amer 38 mL/min >60 [facility] Work Phone: Comment on above: Non- GFR Calc Urine Microalbumin/Creatinine Ratio TNP [facility] Work Phone: Comment on above: Test not performed Platelets bldon 11-08-2021 Platelets (Bld) [#/Vol] 218 10*3/uL 150-450 [facility] Work Phone: Serum or plasma albumin lakeisha urement (mass/volume)on 11-08-2021 Albumin [Mass/Vol] 3.8 g/dL 3.2-5.0 [facility] Work Phone: Serum or plasma albumin/glob ulin mass ratioon 11-08-2021 Albumin/Globulin [Mass ratio] 0.8 {ratio} 0.9-2.4 [facility] Work Phone: Serum or plasma calcium lakeisha urement (mass/volume)on 11-08-2021 Calcium [Mass/Vol] 10.1 mg/dL 8.5-10.1 [facility] Work Phone: Serum or plasma creatinine m easurement (mass/volume)on 11-08-2021 Creatinine [Mass/Vol] 1.42 mg/dL 0.55-1.02 [facility] Work Phone: Comment on above: The validity of the calculated GFR & GFRAA in patients over 70 years has not been determined. Clinical correlation is essential. Serum or plasma urea nitroge n measurement (mass/volume)on 11-08-2021 Urea nitrogen [Mass/Vol] 39 mg/dL 7-18 [facility] Work Phone: Thin prep Papanicolaou smear with manual screeningon 11-08-2021 Thin prep Papanicolaou smear with manual screening 19 U/L 15-37 [facility] Work Phone: Thin prep Papanicolaou smear with manual screening 5 5-15 [facility] Work Phone: Thin prep Papanicolaou smear with manual screening < 5.0 mg/L NO RANGE EST. [facility] Work Phone: Urine creatinine measurement (mass/volume)on 11-08-2021 Creatinine (U) [Mass/Vol] 35.80 mg/dL NO RANGE EST. [facility] Work Phone: Absolute lymphocyte counton 10-24-2021 Lymphocytes Auto (Unsp spec) [#/Vol] 1.26 10*3/uL 0.83-4.51 [facility] Work Phone: Basophil percentageon 2021 Basophils/100 WBC (Bld) 0.6 % 0-1 [facility] Work Phone: Bilirubin [Mass/Vol] 0.30 mg/dL 0.20-1.00 [facility] Work Phone: Comment on above: For patients on eltr ombopag therapy, use of Dimension [place] TBIL is not recommended. Chloride [Moles/Vol] 103 mmol/L 98-107 [facility] Work Phone: Eosinophils/100 WBC (Bld) 1.6 % 0-5 [facility] Work Phone: Glucose [Mass/Vol] 89 mg/dL 74-106 [facility] Work Phone: Neutrophils (Bld) [#/Vol] 4.1 10*3/uL 2.0-7.7 [facility] Work Phone: Neutrophils/100 WBC (Bld) 64.7 % 47-70 [facility] Work Phone: Potassium [Moles/Vol] 3.4 mmol/L 3.5-5.1 [facility] Work Phone: Protein [Mass/Vol] 6.6 g/dL 6.4-8.2 [facility] Work Phone: Sodium [Moles/Vol] 137 mmol/L 136-145 [facility] Work Phone: WBC (Bld) [#/Vol] 6.3 10*3/uL 4.4-11.0 [facility] Work Phone: Blood erythrocytes count (nu mber/volume)on 10-24-2021 RBC (Bld) [#/Vol] 3.99 10*6/uL 4.2-5.4 [facility] Work Phone: Blood hemoglobin measurement (mass/volume)on 10-24-2021 Hemoglobin (Bld) [Mass/Vol] 11.2 g/dL 12.0-15.0 [facility] Work Phone: Blood lymphocytes/100 leukoc yteson 10-24-2021 Lymphocytes/100 WBC (Bld) 19.9 % 19-41 [facility] Work Phone: Blood monocytes/100 leukocyt eson 10-24-2021 Monocytes/100 WBC (Bld) 12.7 % 0-10 [facility] Work Phone: Blood platelet mean volumeon 10-24-2021 Platelet mean volume (Bld) [Entitic vol] 11.0 fL 6.2-12.0 [facility] Work Phone: [phone] Determination of erythrocyte mean corpuscular volume (MCV)on 10-24-2021 MCV (RBC) [Entitic vol] 88.5 fL 81-99 [facility] Work Phone: [phone] Hematocrit Auto (Bld) [Volum e fraction]on 10-24-2021 Hematocrit (Bld) [Volume fraction] 35.3 % 37-47 [facility] Work Phone: [phone] Laboratory - Chemistry and C hemistry - challengeon 10-24-2021 ALP [Catalytic activity/Vol] 69 U/L 45-117 [facility] Work Phone: [phone] ALT [Catalytic activity/Vol] 20 U/L 13-56 [facility] Work Phone: [phone] CO2 [Moles/Vol] 28.0 mmol/L 21.0-32.0 [facility] Work Phone: [phone] Globulin (S) [Mass/Vol] 3.9 g/dL 2.2-4.2 [facility] Work Phone: [phone] Urea nitrogen/Creatinine [Mass ratio] 21.5 mg/mg 10-20 [facility] Work Phone: [phone] Laboratory - Hematology and Cell countson 10-24-2021 Erythrocyte distribution width (RBC) [Entitic vol] 46.7 fL 35.1-43.9 [facility] Work Phone: Erythrocyte distribution width (RBC) [Ratio] 14.5 % 11.6-14.6 [facility] Work Phone: Immature granulocytes/100 WBC (Bld) 0.500 % 0.0-0.9 [facility] Work Phone: Comment on above: IG% - Immature Granu locytes (promyelocytes, myelocytes and metamyelocytes) > 1% indicates that a LEFT SHIFT is Present. MCH (RBC) [Entitic mass] 28.1 pg 27.0-32.0 [facility] Work Phone: Nucleated RBC/100 WBC (Bld) [Ratio] 0 % 0-5 [facility] Work Phone: MCHC Auto (RBC) [Mass/Vol]on 10-24-2021 MCHC (RBC) [Mass/Vol] 31.7 g/dL 32-36 [facility] Work Phone: No Panel Informationon 10-24 Estimated Creatinine Clearance Calc 59.01 ml/min [facility] Work Phone: Estimated GFR (MDRD) Amer 89 mL/min >60 [facility] Work Phone: Comment on above: GFR Calc Estimated GFR (MDRD) Non-Af Amer 74 mL/min >60 [facility] Work Phone: Comment on above: Non- GFR Calc Platelets bldon 10-24-2021 Platelets (Bld) [#/Vol] 164 10*3/uL 150-450 [facility] Work Phone: Serum or plasma albumin lakeisha urement (mass/volume)on 10-24-2021 Albumin [Mass/Vol] 2.7 g/dL 3.2-5.0 [facility] Work Phone: Serum or plasma albumin/glob ulin mass ratioon 10-24-2021 Albumin/Globulin [Mass ratio] 0.7 {ratio} 0.9-2.4 [facility] Work Phone: Serum or plasma calcium lakeisha urement (mass/volume)on 10-24-2021 Calcium [Mass/Vol] 8.6 mg/dL 8.5-10.1 [facility] Work Phone: Serum or plasma creatinine m easurement (mass/volume)on 10-24-2021 Creatinine [Mass/Vol] 0.79 mg/dL 0.55-1.02 [facility] Work Phone: Comment on above: The validity of the calculated GFR & GFRAA in patients over 70 years has not been determined. Clinical correlation is essential. Serum or plasma urea nitroge n measurement (mass/volume)on 10-24-2021 Urea nitrogen [Mass/Vol] 17 mg/dL 7-18 [facility] Work Phone: Thin prep Papanicolaou smear with manual screeningon 10-24-2021 Thin prep Papanicolaou smear with manual screening 20 U/L 15-37 [facility] Work Phone: Thin prep Papanicolaou smear with manual screening 6 5-15 [facility] Work Phone: Basophil percentageon 2021 Cholesterol [Mass/Vol] 152 mg/dL <[address] [facility] Work Phone: Comment on above: <200 mg/dL Desirable 200-240 mg/dL Borderline >240 mg/dL High Risk Triglyceride [Mass/Vol] 98 mg/dL [facility] Work Phone: Comment on above: The drugs N-Acetylcy steine and Metamizole may falsely depress this assay.Serum Triglycerides Reference Interval Normal <150 mg/dL Borderline high 150 - 199 mg/dL High 200 - 499 mg/dL Very High > or = 500 mg/dL Serum or plasma cholesterol in HDL measurement (mass/volume)on 10-23-2021 Cholesterol in HDL [Mass/Vol] 59 mg/dL [facility] Work Phone: Comment on above: The drugs N-Acetylcy steine and Metamizole may falsely depress this assay. Reference Range HDL <40 mg/dL Low HDL Cholesterol HDL >or= 60 mg/dL High HDL Cholesterol Serum or plasma cholesterol in VLDL measurement (mass/volume)on 10-23-2021 Cholesterol in VLDL [Mass/Vol] 20 mg/dL 5-40 [facility] Work Phone: Serum or plasma low density lipoprotein (LDL) cholesterol measurement (mass/volume)on 10-23-2021 Cholesterol in LDL [Mass/Vol] 73 mg/dL 0-130 [facility] Work Phone: Whole blood hemoglobin A1c/t otal hemoglobin ratio (mass fraction)on 10-23-2021 HbA1c (Bld) [Mass fraction] 5.5 % 3.8-5.6 [facility] Work Phone: Comment on above: Normal < 5.7 % Predi abetic 5.7 - 6.4 % Diabetic >or= 6.5 % Please note range changes. Basophil percentageon 2021 Lactate [Moles/Vol] 1.6 mmol/L 0.4-2.0 [facility] Work Phone: INR in Blood by Coagulation assayon 10-22-2021 INR Coag (Bld) [Relative time] 1.1 {INR} [facility] Work Phone: Laboratory - Chemistry and C hemistry - challengeon 10-22-2021 Magnesium [Mass/Vol] 2.3 mg/dL 1.6-2.6 [facility] Work Phone: Natriuretic peptide B (Bld) [Mass/Vol] 556.4 pg/mL 0-100 [facility] Work Phone: Laboratory - Coagulationon 0 10-22-2021 aPTT Coag (Bld) [Time] 35.2 s 24.1-36.[address] [facility] Work Phone: PT Coag (PPP) [Time] 13.5 s 11.7-14.9 [facility] Work Phone: Laboratory - Microbiology an d Antimicrobial susceptibilityon 10-22-2021 SARS-CoV-2 (COVID-19) RNA KEERTHI+probe Ql (Unsp spec) Not detected Not Detect [facility] Work Phone: Comment on [...] Nom (Bld) No growth in 5 days. [facility] Work Phone: No Panel Informationon 10-22 Troponin I High Sensitivity 2200 pg/mL 3.0-54.0 [facility] Work Phone: Comment on above: Critical Result(s) C chip SANCHEZ RN at: 21:11:28 10/22/2021 by: Zayra Livingston. Results read back by same. Please Note: New Test Units and Gender Specific Reference Ranges. For more information see Policy Stat Procedure [place] High Sensitivity Troponin (TNIH) and attachments. Streptococcus pneumoniae Antigen (M [facility] Work Phone: Respiratory Panel (PCR) [facility] Work Phone: D-Dimer Quantitative (PE/DVT) 1.50 FEU/ug/m 0.27-0.49 [facility] Work Phone: Comment on above: D-Dimer ELEVATED (>0 .49): Additional studies and clinicalassessments are indicated to conclude diagnosis of:Deep Vein Thrombosis (DVT) or Pulmonary Embolism (PE)CRITICAL VALUE VERIFIED. CALLED TO LOLI IRIZARRY10/22/21 Jose Durant.RESULTS READ BACK BY SAME . [facility] Procalcitonin [Mass/Vol] 0.23 ng/mL 0.00-0.09 [facility] Work Phone: Comment on [...] Center 01-17-2018 Protein mass conc Performed at [facility] APPROVED BY: Tito Green MD [...] and C2 spinous fractures are noted Normal [facility] DX CERVICAL SPINE 2 OR 3 E [facility] 09-17-2017 DX CERVICAL SPINE 2 OR 3 VIEWS Performed at [facility] APPROVED BY: Tito Green MD Exam: [...] evidence of instability on dynamic views. Normal [facility] CT THORACIC SPINE W/O CONTRA STon 08-05-2017 CT THORACIC SPINE W/O CONTRAST Performed at [facility] APPROVED BY: Elian Nava MD CT [...] FRACTURE OF THE T6 VERTEBRAL BODY. Normal [facility] No Panel Information SARS-CoV-2 & FLU Antigen (Rapid) SARS-CoV-2 (COVID 19) [facility] Work Phone: SARS-CoV-2 & FLU Antigen (Rapid) [facility] Work Phone: Vital Signs Date Time Vital Sign Value Performing Clinician Facility 05-03-2025 13:37-0400 Body height 149.[address] Tyler Benitez MD Work Phone: [facility] 05-03-2025 13:37-0400 Body mass index (BMI) [Ratio] 36.3 kg/m2 Dr. Tyler Benitez MD Work Phone: [facility] 05-03-2025 13:37-0400 Body weight 81.[address] Tyler Benitez MD Work Phone: [facility] 05-03-2025 13:37-0400 Diastolic blood pressure 73 mm[Hg] Dr. Tyler Benitez MD Work Phone: [facility] 05-03-2025 13:37-0400 Heart rate 88 /min Dr. Tyler Benitez MD Work Phone: [facility] 05-03-2025 13:37-0400 Respiratory rate 18 /min Dr. Tyler Benitez MD Work Phone: [facility] 05-03-2025 13:37-0400 SaO2% (BldA) [Mass fraction] 96 % Dr. Tyler Benitez MD Work Phone: [facility] 05-03-2025 13:37-0400 Systolic blood pressure 137 mm[Hg] Dr. Tyler Benitez MD Work Phone: [facility] 04-08-2025 15:10-0400 Body height 152.4 cm Arya Archer MD Work Phone: [facility] Comment on above: previuos height used 04-08-2025 15:10-0400 Body mass index (BMI) [Ratio] 37.69 kg/m2 Arya Archer MD Work Phone: [facility] 04-08-2025 15:10-0400 Body temperature 98.1 [degF] Arya Archer MD Work Phone: [facility] 04-08-2025 15:10-0400 Body weight 87.54 kg Arya Archer MD Work Phone: [facility] Comment on above: previous weight used 04-08-2025 15:10-0400 Diastolic blood pressure 52 mm[Hg] Arya Archer MD Work Phone: [facility] 04-08-2025 15:10-0400 Heart rate 80 /min Arya Archer MD Work Phone: [facility] 04-08-2025 15:10-0400 Systolic blood pressure 123 mm[Hg] Arya Archer MD Work Phone: [facility] 03-02-2025 15:00-0400 Respiratory rate 18 /min Dr. Tyler Benitez MD Work Phone: [facility] 03-02-2025 15:00-0400 SaO2% (BldA) [Mass fraction] 100 % Dr. Tyler Benitez MD Work Phone: [facility] 03-02-2025 14:30-0400 Body temperature 96.9 [degF] Dr. Tyler Benitez MD Work Phone: [facility] 03-02-2025 14:30-0400 Diastolic blood pressure 96 mm[Hg] Dr. Tyler Benitez MD Work Phone: [facility] 03-02-2025 14:30-0400 Heart rate 67 /min Dr. Tyler Benitez MD Work Phone: [phone])946-410052 [place] [address] 03-02-2025 14:30-0400 Systolic blood pressure 148 mm[Hg] Dr. Tyler Benitez MD Work Phone: 8(784)541-893319 [place] [address] 03-02-2025 11:24-0400 Body mass index (BMI) [Ratio] 37.5 kg/m2 Dr. Tyler Benitez MD Work Phone: 4(608)619-475503 [address] 03-02-2025 11:24-0400 Body weight 84.[address] Tyler Benitez MD Work Phone: 4(700)743-983452 [place] [address] 03-02-2025 10:13-0400 Body height 149.[address] Tyler Benitez MD Work Phone: 0(938)675-901203 [address] 11-10-2024 18:51-0400 Body temperature 98 [degF] Dr. Tyler Benitez MD Work Phone: 2(859)259-698503 [address] 11-10-2024 18:51-0400 Diastolic blood pressure 74 mm[Hg] Dr. Tyler Benitez MD Work Phone: 6(564)023-270252 [place] [address] 11-10-2024 18:51-0400 Heart rate 78 /min Dr. Tyler Benitez MD Work Phone: [facility] 11-10-2024 18:51-0400 Respiratory rate 16 /min Dr. Tyler Benitez MD Work Phone: [facility] 11-10-2024 18:51-0400 SaO2% (BldA) [Mass fraction] 97 % Dr. Tyler Benitez MD Work Phone: [facility] 11-10-2024 18:51-0400 Systolic blood pressure 149 mm[Hg] Dr. Tyler Benitez MD Work Phone: [facility] 11-10-2024 17:00-0400 Inhaled oxygen flow rate 3 L/min Dr. Tyler Benitez MD Work Phone: [facility] 11-10-2024 14:21-0400 Body mass index (BMI) [Ratio] 36.4 kg/m2 Dr. Tyler Benitez MD Work Phone: 2(622)671-719452 [place] [address] 11-10-2024 14:21-0400 Body weight 84.[address] Tyler Benitez MD Work Phone: 6(529)174-372552 [place] [address] 11-10-2024 14:18-0400 Body height 152.[address] Tyler Benitez MD Work Phone: 4(086)293-755852 [place] [address] 08-29-2023 16:11-0500 Body height 149.[address] Tyler Benitez Work Phone: 1(393)505-246252 [place] [address] 08-29-2023 16:11-0500 Body mass index (BMI) [Ratio] 37.3 kg/m2 Dr. Tyler Benitez Work Phone: 7(617)776-518052 [place] [address] 08-29-2023 16:11-0500 Body temperature 98.2 [degF] Dr. Tyler Benitez Work Phone: [facility] 08-29-2023 16:11-0500 Body weight 83.[address] Tyler Benitez Work Phone: [facility] 08-29-2023 16:11-0500 Diastolic blood pressure 84 mm[Hg] Dr. Tyler Benitez Work Phone: [facility] 08-29-2023 16:11-0500 Heart rate 94 /min Dr. Tyler Benitez Work Phone: [facility] 08-29-2023 16:11-0500 Respiratory rate 14 /min Dr. Tyler Benitez Work Phone: [facility] 08-29-2023 16:11-0500 SaO2% (BldA) [Mass fraction] 100 % Dr. Tyler Benitez Work Phone: [facility] 08-29-2023 16:11-0500 Systolic blood pressure 132 mm[Hg] Dr. Tyler Benitez Work Phone: [facility] 05-24-2023 08:03-0400 Body mass index (BMI) [Ratio] 36.8 kg/m2 Dr. Tyler Benitez Work Phone: [facility] 05-24-2023 08:03-0400 Body weight 82.[address] Tyler Benitez Work Phone: [facility] 05-24-2023 07:17-0400 Body height 149.[address] Tyler Benitez Work Phone: [facility] 05-24-2023 07:17-0400 Body temperature 97.5 [degF] Dr. Tyler Benitez Work Phone: [facility] 05-24-2023 07:17-0400 Diastolic blood pressure 88 mm[Hg] Dr. Tyler Benitez Work Phone: [facility] 05-24-2023 07:17-0400 Heart rate 75 /min Dr. Tyler Benitez Work Phone: [facility] 05-24-2023 07:17-0400 Respiratory rate 16 /min Dr. Tyler Benitez Work Phone: [facility] 05-24-2023 07:17-0400 SaO2% (BldA) [Mass fraction] 98 % Dr. Tyler Benitez Work Phone: [facility] 05-24-2023 07:17-0400 Systolic blood pressure 139 mm[Hg] Dr. Tyler Benitez Work Phone: [facility] 04-19-2023 16:51-0400 Body temperature 99.1 [degF] Dr. Tyler Benitez Work Phone: [facility] 04-19-2023 16:51-0400 Diastolic blood pressure 83 mm[Hg] Dr. Tyler Benitez Work Phone: [facility] 04-19-2023 16:51-0400 Heart rate 83 /min Dr. Tyler Benitez Work Phone: [facility] 04-19-2023 16:51-0400 Respiratory rate 18 /min Dr. Tyler Benitez Work Phone: [facility] 04-19-2023 16:51-0400 SaO2% (BldA) [Mass fraction] 98 % Dr. Tyler eBnitez Work Phone: [facility] 04-19-2023 16:51-0400 Systolic blood pressure 153 mm[Hg] Dr. Tyler Benitez Work Phone: [facility] 04-19-2023 06:00-0400 Body mass index (BMI) [Ratio] 35.6 kg/m2 Dr. Tyler Benitez Work Phone: [facility] 04-19-2023 06:00-0400 Body weight 80.[address] Tyler Benitez Work Phone: [facility] 04-15-2023 16:08-0400 Body height 150.[address] Tyler Benitez Work Phone: [facility] 04-15-2023 15:32-0400 Body temperature 97.2 [degF] Dr. yTler Benitez Work Phone: [facility] 04-15-2023 15:32-0400 Diastolic blood pressure 60 mm[Hg] Dr. Tyler Benitez Work Phone: [facility] 04-15-2023 15:32-0400 Heart rate 80 /min Dr. Tyler Benitez Work Phone: [facility] 04-15-2023 15:32-0400 Respiratory rate 18 /min Dr. Tyler Benitez Work Phone: [facility] 04-15-2023 15:32-0400 SaO2% (BldA) [Mass fraction] 95 % Dr. Tyler Benitez Work Phone: [facility] 04-15-2023 15:32-0400 Systolic blood pressure 152 mm[Hg] Dr. Tyler Benitez Work Phone: [facility] 04-15-2023 08:49-0400 Body height 150.[address] Tyler Benitez Work Phone: [facility] 04-05-2023 14:24-0400 Body temperature 96.2 [degF] Dr. Tyler Benitez Work Phone: [facility] 04-05-2023 14:24-0400 Diastolic blood pressure 93 mm[Hg] Dr. Tyler Benitez Work Phone: [facility] 04-05-2023 14:24-0400 Heart rate 114 /min Dr. Tyler Benitez Work Phone: [facility] 04-05-2023 14:24-0400 Respiratory rate 20 /min Dr. Tyler Benitez Work Phone: [facility] 04-05-2023 14:24-0400 SaO2% (BldA) [Mass fraction] 98 % Dr. Tyler Benitez Work Phone: [facility] 04-05-2023 14:24-0400 Systolic blood pressure 106 mm[Hg] Dr. Tyler Benitez Work Phone: [facility] 04-05-2023 00:46-0400 Diastolic blood pressure 61 mm[Hg] Dr. Tyler Benitez Work Phone: [facility] 04-05-2023 00:46-0400 Heart rate 97 /min Dr. Tyler Benitez Work Phone: [facility] 04-05-2023 00:46-0400 Systolic blood pressure 140 mm[Hg] Dr. Tyler Benitez Work Phone: [facility] 04-04-2023 22:00-0400 Respiratory rate 20 /min Dr. Tyler Benitez Work Phone: [facility] 04-04-2023 20:02-0400 Body mass index (BMI) [Ratio] 38.5 kg/m2 Dr. Tyler Benitez Work Phone: [facility] 04-04-2023 20:02-0400 Body weight 86.[address] Tyler Benitez Work Phone: [facility] 04-04-2023 19:32-0400 Body temperature 97.4 [degF] Dr. Tyler Benitez Work Phone: [facility] 04-04-2023 19:32-0400 SaO2% (BldA) [Mass fraction] 100 % Dr. Tyler Benitez Work Phone: [facility] 03-19-2023 17:00-0400 Body temperature 97.9 [degF] Dr. Tyler Benitez Work Phone: [facility] 03-19-2023 17:00-0400 Diastolic blood pressure 47 mm[Hg] Dr. Tyler Benitez Work Phone: [facility] 03-19-2023 17:00-0400 Heart rate 100 /min Dr. Tyler Benitez Work Phone: [facility] 03-19-2023 17:00-0400 Respiratory rate 18 /min Dr. Tyler Benitez Work Phone: [facility] 03-19-2023 17:00-0400 SaO2% (BldA) [Mass fraction] 100 % Dr. Tyler Benitez Work Phone: [facility] 03-19-2023 17:00-0400 Systolic blood pressure 129 mm[Hg] Dr. Tyler Benitez Work Phone: [facility] 03-18-2023 12:57-0400 Body weight [address] Tyler Benitez Work Phone: [facility] 03-18-2023 03:31-0400 Inhaled oxygen concentration 96 % Dr. Tyler Benitez Work Phone: [facility] 03-17-2023 21:58-0400 Inhaled oxygen flow rate 2 L/min Dr. Tyler Benitez Work Phone: [facility] 03-17-2023 16:03-0400 Body mass index (BMI) [Ratio] 38.2 kg/m2 Dr. Tyler Benitez Work Phone: [facility] 03-12-2023 15:33-0400 Diastolic blood pressure 77 mm[Hg] Dr. Tyler Benitez Work Phone: [facility] 03-12-2023 15:33-0400 Heart rate 65 /min Dr. Tyler Benitez Work Phone: [facility] 03-12-2023 15:33-0400 Respiratory rate 18 /min Dr. Tyler Benitez Work Phone: [facility] 03-12-2023 15:33-0400 SaO2% (BldA) [Mass fraction] 97 % Dr. Tyler Benitez Work Phone: [facility] 03-12-2023 15:33-0400 Systolic blood pressure 132 mm[Hg] Dr. Tyler Benitez Work Phone: [facility] 02-26-2023 19:00-0400 Body mass index (BMI) [Ratio] 38.5 kg/m2 Dr. Tyler Benitez Work Phone: [facility] 02-26-2023 19:00-0400 Body weight 86.[address] Tyler Benitez Work Phone: [facility] 02-26-2023 19:00-0400 SaO2% (BldA) [Mass fraction] 98 % Dr. Tyler Benitez Work Phone: [facility] 02-26-2023 18:37-0400 Body temperature 97.5 [degF] Dr. Tyler Benitez Work Phone: [facility] 02-26-2023 18:37-0400 Diastolic blood pressure 61 mm[Hg] Dr. Tyler Benitez Work Phone: [facility] 02-26-2023 18:37-0400 Heart rate 76 /min Dr. Tyler Benitez Work Phone: [facility] 02-26-2023 18:37-0400 Respiratory rate 18 /min Dr. Tyler Benitez Work Phone: [facility] 02-26-2023 18:37-0400 Systolic blood pressure 156 mm[Hg] Dr. Tyler Benitez Work Phone: [facility] 01-15-2023 22:49-0400 Diastolic blood pressure 78 mm[Hg] Dr. Tyler Benitez Work Phone: [facility] 01-15-2023 22:49-0400 Systolic blood pressure 124 mm[Hg] Dr. Tyler Benitez Work Phone: 4(053)561-982052 [place] [address] 01-15-2023 20:16-0400 Heart rate 79 /min Dr. Tyler Benitez Work Phone: 0(830)792-658619 [place] [address] 01-15-2023 20:16-0400 Respiratory rate 18 /min Dr. Tyler Benitez Work Phone: 8(644)462-975519 [place] [address] 01-15-2023 20:16-0400 SaO2% (BldA) [Mass fraction] 98 % Dr. Tyler Benitez Work Phone: 5(974)[phone] [place] [address] 01-15-2023 18:17-0400 Body temperature 97.8 [degF] Dr. Tyler Benitez Work Phone: 0(416)258-829619 [place] [address] 01-15-2023 18:15-0400 Body mass index (BMI) [Ratio] 39.7 kg/m2 Dr. Tyler Benitez Work Phone: 4(066)583-879852 [place] [address] 01-15-2023 18:15-0400 Body weight 92.[address] Tyler Benitez Work Phone: [facility] 11-27-2022 15:25-0400 Body height 152.[address] Tyler Benitez Work Phone: 7(751)469-501552 [place] [address] 11-27-2022 15:25-0400 Body mass index (BMI) [Ratio] 37.5 kg/m2 Dr. Tyler Benitez Work Phone: 1(823)808-303752 [place] [address] 11-27-2022 15:25-0400 Body weight 87.[address] Tyler Benitez Work Phone: 9(257)452-977452 [place] [address] 11-27-2022 15:25-0400 Diastolic blood pressure 67 mm[Hg] Dr. Tyler Benitez Work Phone: [facility] 11-27-2022 15:25-0400 Heart rate 74 /min Dr. Tyler Benitez Work Phone: [facility] 11-27-2022 15:25-0400 Respiratory rate 20 /min Dr. Tyler Benitez Work Phone: [facility] 11-27-2022 15:25-0400 SaO2% (BldA) [Mass fraction] 99 % Dr. Tyler Benitez Work Phone: [facility] 11-27-2022 15:25-0400 Systolic blood pressure 134 mm[Hg] Dr. Tyler Benitez Work Phone: [facility] 05-20-2022 22:02-0400 Diastolic blood pressure 61 mm[Hg] Dr. Tyler Benitez Work Phone: [facility] Work Phone: 05-20-2022 22:02-0400 Heart rate 79 /min Dr. Tyler Benitez Work Phone: [facility] Work Phone: 05-20-2022 22:02-0400 Systolic blood pressure 147 mm[Hg] Dr. Tyler Benitez Work Phone: [facility] Work Phone: 05-20-2022 20:25-0400 Body height 152.[address] Tyler Benitez Work Phone: [facility] Work Phone: 05-20-2022 20:25-0400 Body mass index (BMI) [Ratio] 35.3 kg/m2 Dr. Tyler Benitez Work Phone: [facility] Work Phone: 05-20-2022 20:25-0400 Body temperature 97 [degF] Dr. Tyler Benitez Work Phone: [facility] Work Phone: 05-20-2022 20:25-0400 Body weight 82.[address] Tyler Benitez Work Phone: [facility] Work Phone: 05-20-2022 20:25-0400 Respiratory rate 18 /min Dr. Tyler Benitez Work Phone: [facility] Work Phone: 05-20-2022 20:25-0400 SaO2% (BldA) [Mass fraction] 100 % Dr. Tyler Benitez Work Phone: [facility] Work Phone: 05-16-2022 13:44-0400 Body mass index (BMI) [Ratio] 37 kg/m2 Dr. Tyler Benitez Work Phone: [facility] Work Phone: 05-16-2022 13:44-0400 Body weight 86.[address] Tyler Benitez Work Phone: [facility] Work Phone: 05-16-2022 13:44-0400 Diastolic blood pressure 65 mm[Hg] Dr. Tyler Benitez Work Phone: [facility] Work Phone: 05-16-2022 13:44-0400 Heart rate 62 /min Dr. Tyler Benitez Work Phone: [facility] Work Phone: 05-16-2022 13:44-0400 Respiratory rate 18 /min Dr. Tyler Benitez Work Phone: [facility] Work Phone: 05-16-2022 13:44-0400 Systolic blood pressure 142 mm[Hg] Dr. Tyler Benitez Work Phone: [facility] Work Phone: 05-08-2022 15:27-0400 Diastolic blood pressure 70 mm[Hg] Dr. Tyler Benitez Work Phone: [facility] Work Phone: 05-08-2022 15:27-0400 Heart rate 60 /min Dr. Tyler Benitez Work Phone: [facility] Work Phone: 05-08-2022 15:27-0400 Respiratory rate 18 /min Dr. Tyler Benitez Work Phone: [facility] Work Phone: 05-08-2022 15:27-0400 SaO2% (BldA) [Mass fraction] 98 % Dr. Tyler Benitez Work Phone: [facility] Work Phone: 05-08-2022 15:27-0400 Systolic blood pressure 143 mm[Hg] Dr. Tyler Benitez Work Phone: [facility] Work Phone: 05-08-2022 13:18-0400 Body height 152.[address] Tyler Benitez Work Phone: [facility] Work Phone: 05-08-2022 13:18-0400 Body mass index (BMI) [Ratio] 35.2 kg/m2 Dr. Tyler Benitez Work Phone: [facility] Work Phone: 05-08-2022 13:18-0400 Body temperature 97 [degF] Dr. Tyler Benitez Work Phone: [facility] Work Phone: 05-08-2022 13:18-0400 Body weight 81.[address] Tyler Benitez Work Phone: [facility] Work Phone: 04-16-2022 13:01-0400 Body mass index (BMI) [Ratio] 36.7 kg/m2 Dr. Tyler Benitez Work Phone: [facility] Work Phone: 04-16-2022 13:01-0400 Body weight 85.[address] Tyler Benitez Work Phone: [facility] Work Phone: 02-28-2022 14:21-0400 Body mass index (BMI) [Ratio] 35.7 kg/m2 Dr. Tyler Benitez Work Phone: [facility] Work Phone: 02-28-2022 14:21-0400 Body weight [address] Tyler Benitez Work Phone: [facility] Work Phone: 02-28-2022 14:21-0400 Diastolic blood pressure 56 mm[Hg] Dr. Tyler Benitez Work Phone: [facility] Work Phone: 02-28-2022 14:21-0400 Heart rate 80 /min Dr. Tyler Benitez Work Phone: [facility] Work Phone: 02-28-2022 14:21-0400 Respiratory rate 18 /min Dr. Tyler Benitez Work Phone: [facility] Work Phone: 02-28-2022 14:21-0400 Systolic blood pressure 113 mm[Hg] Dr. Tyler Benitez Work Phone: [facility] Work Phone: 01-18-2022 17:17-0400 Diastolic blood pressure 87 mm[Hg] Dr. Tyler Benitez Work Phone: [facility] Work Phone: 01-18-2022 17:17-0400 Heart rate 79 /min Dr. Tyler Benitez Work Phone: [facility] Work Phone: 01-18-2022 17:17-0400 Respiratory rate 16 /min Dr. Tyler Benitez Work Phone: [facility] Work Phone: 01-18-2022 17:17-0400 SaO2% (BldA) [Mass fraction] 99 % Dr. Tyler Benitez Work Phone: [facility] Work Phone: 01-18-2022 17:17-0400 Systolic blood pressure 144 mm[Hg] Dr. Tyler Benitez Work Phone: [facility] Work Phone: 01-18-2022 13:38-0400 Body temperature 96.9 [degF] Dr. Tyler Benitez Work Phone: [facility] Work Phone: 01-18-2022 13:34-0400 Body height 152.[address] Tyler Benitez Work Phone: [facility] Work Phone: 01-18-2022 13:34-0400 Body mass index (BMI) [Ratio] 36.1 kg/m2 Dr. Tyler Benitez Work Phone: [facility] Work Phone: 01-18-2022 13:34-0400 Body weight 83.[address] Tyler Benitez Work Phone: [facility] Work Phone: 01-16-2022 17:31-0400 Diastolic blood pressure 84 mm[Hg] Dr. Tyler Benitez Work Phone: [facility] Work Phone: 01-16-2022 17:31-0400 Heart rate 69 /min Dr. Tyler Benitez Work Phone: [facility] Work Phone: 01-16-2022 17:31-0400 Respiratory rate 18 /min Dr. Tyler Benitez Work Phone: [facility] Work Phone: 01-16-2022 17:31-0400 SaO2% (BldA) [Mass fraction] 98 % Dr. Tyler Benitez Work Phone: [facility] Work Phone: 01-16-2022 17:31-0400 Systolic blood pressure 171 mm[Hg] Dr. Tyler Benitez Work Phone: [facility] Work Phone: 01-16-2022 15:58-0400 Body temperature 98.2 [degF] Dr. Tyler Benitez Work Phone: [facility] Work Phone: 01-16-2022 15:01-0400 Body height 149.[address] Tyler Benitez Work Phone: [facility] Work Phone: 01-16-2022 15:01-0400 Body mass index (BMI) [Ratio] 38.1 kg/m2 Dr. Tyler Benitez Work Phone: [facility] Work Phone: 01-16-2022 15:01-0400 Body weight 85.[address] Tyler Benitez Work Phone: [facility] Work Phone: 11-24-2021 15:32-0400 Body height 149.[address] Tyler Benitez Work Phone: [facility] Work Phone: 11-24-2021 15:32-0400 Body mass index (BMI) [Ratio] 36.5 kg/m2 Dr. Tyler Benitez Work Phone: [facility] Work Phone: 11-24-2021 15:32-0400 Body weight 82.[address] Tyler Benitez Work Phone: [facility] Work Phone: 11-24-2021 15:32-0400 Diastolic blood pressure 62 mm[Hg] Dr. Tyler Benitez Work Phone: [facility] Work Phone: 11-24-2021 15:32-0400 Heart rate 76 /min Dr. Tyler Benitez Work Phone: [facility] Work Phone: 11-24-2021 15:32-0400 Respiratory rate 16 /min Dr. Tyler Benitez Work Phone: [facility] Work Phone: 11-24-2021 15:32-0400 Systolic blood pressure 142 mm[Hg] Dr. Tyler Benitez Work Phone: [facility] Work Phone: 10-24-2021 13:56-0500 Body temperature 97.5 [degF] Dr. Tyler Benitez Work Phone: [facility] Work Phone: 10-24-2021 13:56-0500 Diastolic blood pressure 65 mm[Hg] Dr. Tyler Benitez Work Phone: [facility] Work Phone: 10-24-2021 13:56-0500 Heart rate 81 /min Dr. Tyler Benitez Work Phone: [facility] Work Phone: 10-24-2021 13:56-0500 Respiratory rate 20 /min Dr. Tyler Benitez Work Phone: [facility] Work Phone: 10-24-2021 13:56-0500 SaO2% (BldA) [Mass fraction] 96 % Dr. Tyler Benitez Work Phone: [facility] Work Phone: 10-24-2021 13:56-0500 Systolic blood pressure 143 mm[Hg] Dr. Tyler Benitez Work Phone: [facility] Work Phone: 10-23-2021 11:59-0500 Body weight 87.[address] Tyler Benitez Work Phone: [facility] Work Phone: 10-22-2021 16:29-0500 Body mass index (BMI) [Ratio] 38.8 kg/m2 Dr. Tyler Benitez Work Phone: [facility] Work Phone: Encounters Encounter Date Encounter Type Care Provider Facility Start: 06-14-2025 End: 06-14-2025 Emergency department patient visit Tyler Emmanuel Facility:[facility] Start: 05-03-2025 End: 05-03-[address] Danial Cook MD -[facility] Work Phone: Start: 05-03-2025 End: 05-03-[address] Tyler Benitez MD Work Phone: -[facility] Start: 04-08-2025 End: 04-08-2025 Patient encounter procedure Arya Archer MD Work Phone: Rheumatology Comment on above: Osteoarthritis, gene ralized (Primary Dx) Start: 04-08-2025 End: 04-08-2025 ambulatory TYLER Evangelist BENITEZ Facility:[facility] Start: 03-17-2025 End: 03-17-2025 ambulatory Ana Rosa Ricketts PT Work Phone: [facility] Comment on above: Lymphedema of both l ower extremities (Primary Dx) Start: 03-17-2025 End: 03-17-2025 ambulatory TYLER Evangelist BENITEZ Facility:[facility] Start: 03-12-2025 End: 03-12-[address] Tyler Benitez MD Work Phone: -Cardiovascular Services Start: 03-12-2025 End: 03-12-[address] Danial Cook MD -Cardiovascular Services Work Phone: Start: 03-12-2025 ambulatory Tyler Benitez Facility:[facility] Start: 03-12-2025 Non-patient / Non-visit Dr. Aldo DEAN -[facility] Start: 03-11-2025 End: 03-11-[address] Tyler Benitez MD Work Phone: -[facility] Start: 03-11-2025 End: 03-11-2025 Patient encounter procedure Radha Wood Work Phone: Podiatry Comment on above: Onychomycosis (Prima ry Dx); Pain in toe of left foot; Pain in toe of right foot; Ingrowing toenail of left foot; Pes planus of both feet; Callus Start: 03-11-2025 End: 03-12-2025 ambulatory TYLER BENITEZ Facility:[facility] Start: 03-11-2025 End: 03-11-2025 ambulatory Tyler Benitez Facility:[facility] Start: 03-02-2025 End: 03-02-2025 Emergency department patient visit Dr. Tyler Benitez MD Work Phone: -Emergency Department Work Phone: Start: 02-22-2025 ambulatory Tyler Benitez Facility:[facility] Start: 02-19-2025 End: 02-19-[address] Tyler Benitez MD Work Phone: -Laboratory Start: 02-19-2025 End: 02-19-[address] Danial Cook MD -Laboratory Work Phone: Start: 02-19-2025 End: 02-19-2025 Telephone encounter Prerna Lemon PT [facility] Comment on above: Orders Start: 02-19-2025 End: 02-19-2025 ambulatory Tyler Benitez Facility:[facility] Start: 12-22-2024 [facility] Tyler Benitez Facility:[facility] Start: 11-24-2024 End: 11-24-2024 Telephone encounter Radha Wood Work Phone: Podiatry Comment on above: Patient Update Start: 11-20-2024 End: 11-20-2024 ambulatory Prerna Lemon PT [facility] Comment on above: Lymphedema of both l ower extremities (Primary Dx) Start: 11-13-2024 End: 11-13-2024 ambulatory Prerna Lemon PT [facility] Comment on above: Lymphedema of both l ower extremities (Primary Dx) Start: 11-10-2024 End: 11-10-2024 Emergency department patient visit Dr. Tyler Benitez MD Work Phone: -Emergency Department Work Phone: Start: 11-09-2024 End: 03-17-2025 Telephone encounter Prerna Bonds PT [facility] Comment [...] hawkins spoke with nurse in [facility] ([facility]) who consulted physician [...] 10-30-2024 End: 10-30-2024 ambulatory Prerna Lemon PT [facility] Comment on above: Lymphedema of both l ower extremities (Primary Dx) Start: 09-25-2024 End: 09-25-2024 ambulatory Prerna Lemon PT [facility] Comment on above: Lymphedema of both l ower extremities (Primary Dx) Start: 09-04-2024 End: 09-04-2024 ambulatory Prerna Lemon PT [facility] Comment on above: Lymphedema of both l ower extremities (Primary Dx) Start: 08-27-2024 End: 08-27-[address] Alphonso Newell MD -[facility] Work Phone: Start: 08-27-2024 End: 08-27-2024 ambulatory Tyler Benitez Facility:[facility] Start: 08-21-2024 End: 08-21-[address] Alphonso Newell MD -[facility] Work Phone: Start: 08-21-2024 End: 08-21-2024 ambulatory Tyler Benitez Facility:[facility] Start: 08-11-2024 End: 08-11-[address] Alphonso Newell MD -[facility] Work Phone: Start: 08-11-2024 End: 08-11-2024 ambulatory Tyler Benitez Facility:[facility] Start: 08-11-2024 End: 08-11-2024 ambulatory Tyler Benitez Facility:[facility] Start: 07-30-2024 ambulatory Tyler Benitez Facility:[facility] Start: 07-17-2024 End: 07-17-2024 ambulatory Prerna Lemon PT [facility] Comment on above: Lymphedema of both l ower extremities (Primary Dx) Start: 07-14-2024 End: 07-14-[address] Alphonso Newell MD -[facility] Work Phone: Start: 07-14-2024 End: 07-14-2024 ambulatory Tyler Benitez Facility:[facility] Start: 07-10-2024 End: 07-10-2024 ambulatory Prerna Lemon PT [facility] Comment on above: Lymphedema of both l ower extremities (Primary Dx) Start: 06-24-2024 End: 06-24-2024 ambulatory Prerna Lemon PT [facility] Comment on above: Lymphedema of both l ower extremities (Primary Dx) Start: 06-19-2024 End: 06-19-2024 ambulatory Prerna Lemon PT [facility] Comment on above: Lymphedema of both l ower extremities (Primary Dx) Start: 06-12-2024 End: 06-12-2024 Telephone encounter Prerna Lemon PT [facility] Comment on above: Returning Patient's Call (Returned pt's voicemail message requesting more PT visits and concern that her legs/feet are more swollen. /Therapist reviewed the appts that were already scheduled with pt and offered an appt for 06/15 that became available today d/t [facility]. Pt first stated she could only keep Saturday's visit (06/19) because her fork truck driver can only take her on Fridays. Later, she said she would call her fork truck driver to see if she could bring her on Saturday and would let us know. /Reviewed HEP with pt & instructed to do 2x/day) Start: 05-29-2024 End: 05-29-2024 ambulatory Prerna Lemon PT [facility] Comment on above: Lymphedema of both l ower extremities (Primary Dx) Start: 05-22-2024 End: 05-22-2024 ambulatory Prerna Lemon PT [facility] Comment on above: Lymphedema of both l ower extremities (Primary Dx) Start: 05-08-2024 End: 05-08-2024 ambulatory Prerna Lemon PT [facility] Comment on above: Lymphedema of both l ower extremities (Primary Dx) Start: 04-24-2024 End: 04-24-2024 ambulatory Prerna Lemon PT [facility] Comment on above: Lymphedema of both l ower extremities (Primary Dx) Start: 04-17-2024 End: 04-17-2024 ambulatory Prerna Lemon PT [facility] Comment on above: Lymphedema of both l ower extremities (Primary Dx) Start: 04-03-2024 End: 04-03-2024 ambulatory Prerna Lemon PT [facility] Comment on above: Lymphedema of both l ower extremities (Primary Dx) Start: 03-27-2024 End: 03-27-2024 ambulatory Prerna Lemon PT [facility] Comment on above: Lymphedema of both l ower extremities (Primary Dx) Start: 03-13-2024 End: 03-13-2024 ambulatory Prerna Lemon PT [facility] Comment on above: Lymphedema of both l ower extremities (Primary Dx) Start: 03-04-2024 End: 03-04-2024 ambulatory Prerna Lemon PT [facility] Comment on above: Lymphedema of both l ower extremities (Primary Dx) Start: 02-14-2024 End: 02-14-2024 ambulatory Prerna Lemon PT [facility] Comment on above: Lymphedema of both l ower extremities (Primary Dx) Start: 02-07-2024 End: 02-07-2024 ambulatory Prerna Lemon PT [facility] Comment on above: Lymphedema of both l ower extremities (Primary Dx) Start: 01-24-2024 End: 01-24-2024 ambulatory Prerna Lemon PT [facility] Comment on above: Lymphedema of both l ower extremities (Primary Dx) Start: 01-17-2024 End: 01-17-2024 ambulatory Prerna Lemon PT [facility] Comment on above: Lymphedema of both l ower extremities (Primary Dx) Start: 01-03-2024 End: 01-03-2024 Patient encounter procedure Radha Wood Work Phone: Podiatry Comment on above: Onychomycosis (Prima ry Dx); Pain in toe of left foot; Pain in toe of right foot Start: 12-27-2023 End: 12-27-2023 ambulatory Prerna Lemon PT [facility] Comment on above: Lymphedema of both l ower extremities (Primary Dx) Start: 12-17-2023 End: 12-17-[address] Tyler Benitez Work Phone: [facility] Work Phone: Start: 12-17-2023 End: 12-17-[address] Tyler Benitez Work Phone: [facility] Work Phone: Start: 12-13-2023 End: 12-13-2023 ambulatory Prerna Lemon PT [facility] Comment on above: Lymphedema of both l ower extremities (Primary Dx) Start: 11-29-2023 End: 11-29-2023 ambulatory Prerna Lemon PT [facility] Comment on above: Lymphedema of both l ower extremities (Primary Dx) Start: 11-15-2023 End: 11-15-2023 ambulatory Prerna Lemon PT [facility] Comment on above: Lymphedema of both l ower extremities (Primary Dx) Start: 10-28-2023 End: 10-28-2023 ambulatory Prerna Lemon PT [facility] Comment on above: Lymphedema of both l ower extremities (Primary Dx) Start: 10-14-2023 End: 10-14-2023 ambulatory Prerna Lemon PT [facility] Comment on above: Lymphedema of both l ower extremities (Primary Dx) Start: 10-07-2023 End: 10-07-2023 ambulatory Prerna Lemon PT [facility] Comment on above: Lymphedema of both l ower extremities (Primary Dx) Start: 10-04-2023 End: 10-04-2023 ambulatory Prerna Lemon PT [facility] Comment on above: Lymphedema of both l ower extremities (Primary Dx) Start: 08-29-2023 End: 08-29-[address] Tyler Benitez Work Phone: [facility] Work Phone: Start: 08-07-2023 End: 08-07-2023 ambulatory Prerna Lemon PT [facility] Comment on above: Lymphedema of both l ower extremities (Primary Dx) Start: 08-02-2023 End: 08-02-2023 ambulatory Prerna Lemon PT [facility] Comment on above: Lymphedema of both l ower extremities (Primary Dx) Start: 2023 Telephone encounter Radha Armstrong Work Phone: Podiatry Comment on above: Results Start: 07-17-2023 End: 07-17-2023 Subsequent hospital visit by physician Xr [facility] Helena Mob Work Phone: Radiology Comment on above: [...] 07-01-[address] Tyler Benitez Work Phone: [facility] Work Phone: Start: 07-01-2023 End: 07-01-[address] Tyler Benitez Work Phone: [facility] Work Phone: Start: 06-28-2023 End: 06-28-2023 ambulatory Prerna Lemon PT [facility] Comment on above: Lymphedema of both l ower extremities (Primary Dx) Start: 06-21-2023 End: 06-21-2023 ambulatory Prerna Lemon PT [facility] Comment on above: Lymphedema of both l ower extremities (Primary Dx) Start: 06-18-2023 End: 06-18-[address] Tyler Benitez Work Phone: [facility] Work Phone: Start: 06-18-2023 End: 06-18-[address] Tyler Benitez Work Phone: [facility] Start: 06-17-2023 Telephone encounter Prerna Lemon PT [facility] Comment on above: Appointment Start: 06-10-2023 End: 06-10-2023 ambulatory Prerna Lemon PT [facility] Comment on above: Lymphedema of both l ower extremities (Primary Dx) Start: 06-10-2023 End: 06-10-[address] Tyler Benitez Work Phone: [facility] Work Phone: Start: 06-10-2023 End: 06-10-[address] Tyler Benitez Work Phone: [facility] Work Phone: Start: 06-03-2023 End: 06-03-[address] Tyler Benitez Work Phone: [facility] Work Phone: Start: 06-03-2023 End: 06-03-[address] Tyler Benitez Work Phone: [facility] Work Phone: Start: 05-31-2023 End: 05-31-2023 ambulatory Prrena Lemon PT [facility] Comment on above: Lymphedema of both l ower extremities (Primary Dx) Start: 05-24-2023 End: 05-24-2023 ambulatory Prerna Lemon PT [facility] Comment on above: Unsteady gait when w alking; Lymphedema of both lower extremities Start: 05-24-2023 End: 05-24-2023 Emergency department patient visit Dr. Tyler Benitez Work Phone: [facility] Work Phone: Start: 05-17-2023 End: 05-17-2023 ambulatory Prerna Lemon PT [facility] Comment on above: Lymphedema of both l ower extremities (Primary Dx) Start: 05-10-2023 End: 05-10-2023 ambulatory Prerna Lemon PT [facility] Comment on above: Lymphedema of both l ower extremities (Primary Dx) Start: 05-03-2023 End: 05-03-2023 ambulatory Prerna Lemon PT [facility] Comment on above: Lymphedema of both l ower extremities (Primary Dx) Start: 04-24-2023 End: 04-24-2023 ambulatory Prerna Lemon PT [facility] Comment on above: Lymphedema of both l ower extremities (Primary Dx) Start: 04-19-2023 Non-patient / Non-visit Dr. Silvio Benitez Work Phone: [facility] Work Phone: Start: 04-18-2023 Non-patient / Non-visit Dr. Silvio Benitez Work Phone: [facility] Work Phone: Start: 04-17-2023 Non-patient / Non-visit Dr. Silvio Benitez Work Phone: [facility] Work Phone: Start: 04-16-2023 Non-patient / Non-visit Dr. Silvio Benitez Work Phone: [facility] Start: 04-16-2023 Non-patient / Non-visit Dr. Silvio Benitez Work Phone: [facility] Work Phone: Start: 04-15-2023 End: 04-19-2023 Evaluation and management of inpatient Dr. Tyler Benitez Work Phone: [facility] Work Phone: Start: 04-15-2023 End: 04-19-[address] Tyler Benitez Work Phone: [facility] Work Phone: Start: 04-12-2023 End: 04-12-2023 ambulatory Prerna Lemon PT [facility] Comment on above: Lymphedema of both l ower extremities (Primary Dx) Start: 04-05-2023 End: 04-05-2023 Emergency department patient visit Dr. Tyler Benitez Work Phone: [facility] Work Phone: Start: 04-04-2023 End: 04-05-2023 Emergency department patient visit Dr. Tyler Benitez Work Phone: [facility] Work Phone: Start: 03-29-2023 End: 04-01-2023 Evaluation and management of inpatient TYLER BENITEZ Facility:[facility] Start: 03-29-2023 Telephone encounter Prerna Lemon PT [facility] Comment on above: Appointment Start: 03-22-2023 End: 03-22-2023 ambulatory Prerna Lemon PT [facility] Comment on above: Lymphedema of both l ower extremities (Primary Dx) Start: 03-21-2023 Telephone encounter Prerna Lemon PT [facility] Comment on above: Patient Update Start: 03-20-2023 Telephone encounter Judith Walton elicia IRWIN Work Phone: Plastic Surgery Comment on above: Appointment Start: 03-19-2023 Non-patient / Non-visit Dr. Silvio Benitez Work Phone: [facility] Work Phone: Start: 03-18-2023 Non-patient / Non-visit Dr. Silvio Benitez Work Phone: [facility] Start: 03-18-2023 Non-patient / Non-visit Dr. Silvio Benitez Work Phone: [facility] Work Phone: Start: 03-17-2023 Non-patient / Non-visit Dr. Silvio Benitez Work Phone: [facility] Work Phone: Start: 03-17-2023 End: 03-19-2023 Evaluation and management of inpatient Dr. Tyler Benitez Work Phone: [facility] Work Phone: Start: 03-12-2023 End: 03-12-[address] Tyler Benitez Work Phone: [facility] Work Phone: Start: 03-08-2023 End: 03-08-2023 ambulatory Prerna Lemon PT [facility] Comment on above: Lymphedema of both l ower extremities (Primary Dx) Start: 03-01-2023 End: 03-01-2023 ambulatory Prerna Lemon PT [facility] Comment on above: Lymphedema of both l ower extremities (Primary Dx) Start: 02-27-2023 End: 02-27-2023 ambulatory Prerna Lemon PT [facility] Comment on above: Lymphedema of both l ower extremities (Primary Dx) Start: 02-26-2023 End: 02-26-2023 Emergency department patient visit Dr. Tyler Benitez Work Phone: [facility] Work Phone: Start: 02-22-2023 End: 02-22-2023 ambulatory Prerna Lemon PT [facility] Comment on above: Lymphedema of both l ower extremities (Primary Dx) Start: 02-20-2023 End: 02-20-2023 ambulatory Prerna Lemon PT [facility] Comment on above: Lymphedema of both l ower extremities (Primary Dx) Start: 02-08-2023 End: 02-08-2023 ambulatory Prerna Lemon PT [facility] Comment on above: Lymphedema of both l ower extremities (Primary Dx) Start: 01-25-2023 End: 01-25-2023 ambulatory Prerna Lemon PT [facility] Comment on above: Lymphedema of both l ower extremities (Primary Dx) Start: 01-15-2023 End: 01-15-2023 Emergency department patient visit Dr. Tyler Benitez Work Phone: [facility] Work Phone: Start: 01-04-2023 End: 01-04-2023 ambulatory Prerna Lemon PT [facility] Comment on above: Lymphedema of both l ower extremities (Primary Dx) Start: 01-03-2023 Telephone encounter Judith Walton ins PA-C Work Phone: [facility] Comment on above: Appointment Start: 01-02-2023 Telephone encounter Judith Walton ins PA-C Work Phone: Plastic Surgery Comment on above: Appointment Start: 12-31-2022 Telephone encounter Jesse Grayson Work Phone: Plastic Surgery Comment on above: Patient Question (Mi ssed call) Appointment Start: 12-21-2022 End: 12-21-[address] Tyler Benitez Work Phone: [facility] Work Phone: Start: 12-21-2022 End: 12-21-[address] Tyler Benitez Work Phone: [facility] Start: 12-21-2022 End: 12-21-2022 ambulatory Prerna Lemon PT [facility] Comment on above: Lymphedema of both l ower extremities (Primary Dx) Start: 12-14-2022 End: 12-14-2022 ambulatory Prerna Lemon PT [facility] Comment on above: Lymphedema of both l ower extremities (Primary Dx) Start: 12-07-2022 End: 12-07-2022 ambulatory Prerna Lemon PT [facility] Comment on above: Lymphedema of both l ower extremities (Primary Dx) Start: 12-06-2022 ambulatory Mohini vasquez LPN [facility] Start: 12-06-2022 Patient encounter procedure Mohini Davila LPN NURSE [employer]UMENT REPA[employer]ER Comment on above: Referral Information Start: 11-27-2022 End: 11-27-[address] Tyler Benitez Work Phone: [facility] Start: 11-23-2022 End: 11-23-2022 ambulatory Prerna Lemon PT [facility] Comment on above: Lymphedema of both l ower extremities (Primary Dx) Start: 11-20-2022 End: 11-20-2022 ambulatory [facility] Work Phone: Start: 11-20-2022 End: 11-20-2022 Patient encounter procedure [facility] Start: 11-09-2022 End: 11-09-2022 ambulatory Prerna Lemon PT [facility] Comment on above: Lymphedema of both l ower extremities (Primary Dx) Start: 11-02-2022 End: 11-02-2022 ambulatory Prerna Lemon PT [facility] Comment on above: Lymphedema of both l ower extremities (Primary Dx) Start: 10-22-2022 End: 10-22-2022 ambulatory Prerna Lemon PT [facility] Comment on above: Lymphedema of both l ower extremities (Primary Dx) Start: 10-12-2022 End: 10-12-2022 ambulatory Prerna Lemon PT [facility] Comment on above: Lymphedema of both l ower extremities (Primary Dx) Start: 10-05-2022 End: 10-05-2022 ambulatory Prerna Lemon PT [facility] Comment on above: Lymphedema of both l ower extremities (Primary Dx) Start: 09-12-2022 Telephone encounter Radha Boogie haines Work Phone: Podiatry Comment on above: Results Start: 09-11-2022 End: 09-11-2022 Subsequent hospital visit by physician [facility] Ernesto Rell Work Phone: Radiology Comment on above: Plantar fasciitis [M 72.2] Start: 09-11-2022 End: 09-11-2022 Patient encounter procedure Radha Wood Work Phone: Podiatry Comment on above: Onychomycosis (Prima ry Dx); Pain in toe of left foot; Pain in toe of right foot; Plantar fasciitis Start: 09-10-2022 End: 09-10-2022 ambulatory Prerna Lemon PT [facility] Comment on above: Lymphedema of both l ower extremities (Primary Dx) Start: 08-10-2022 End: 08-10-2022 ambulatory Prerna Lemon PT [facility] Comment on above: Lymphedema of both l ower extremities (Primary Dx) Start: 08-03-2022 End: 08-03-2022 ambulatory Prerna Lemon PT [facility] Comment on above: Lymphedema of both l ower extremities (Primary Dx) Start: 07-27-2022 End: 07-27-2022 ambulatory Prerna Lemon PT [facility] Comment on above: Lymphedema of both l ower extremities (Primary Dx) Start: 07-13-2022 End: 07-13-2022 ambulatory Prerna Lemon PT [facility] Comment on above: Lymphedema of both l ower extremities (Primary Dx) Start: 07-09-2022 End: 07-09-[address] Tyler Benitez Work Phone: [facility] Work Phone: Start: 07-09-2022 End: 07-09-[address] Tyler Benitez Work Phone: [facility] Start: 07-06-2022 End: 07-06-2022 ambulatory Prerna Lemon PT [facility] Comment on above: Lymphedema of both l ower extremities (Primary Dx) Start: 06-26-[address] Tyler Benitez Work Phone: [facility] Start: 06-15-2022 End: 06-15-2022 ambulatory Prerna Lemon PT [facility] Comment on above: Lymphedema of both l ower extremities (Primary Dx) Start: 06-08-2022 End: 06-08-2022 ambulatory Prerna Lemon PT [facility] Comment on above: Lymphedema of both l ower extremities (Primary Dx) Start: 06-08-2022 End: 06-08-[address] Tyler Benitez Work Phone: [facility] Work Phone: Start: 06-08-2022 End: 06-08-[address] Tyler Benitez Work Phone: [facility] Start: 06-01-2022 End: 06-01-2022 ambulatory Prerna Lemon PT [facility] Comment on above: Lymphedema of both l ower extremities (Primary Dx) Start: 05-25-2022 End: 05-25-2022 ambulatory Prerna Lemon PT [facility] Comment on above: Lymphedema of both l ower extremities (Primary Dx) Start: 05-20-2022 End: 05-20-2022 Emergency department patient visit Dr. Tyler Benitez Work Phone: [facility] Start: 05-18-2022 End: 05-18-2022 ambulatory Prerna Lemon PT [facility] Comment on above: Lymphedema of both l ower extremities (Primary Dx) Start: 05-18-2022 End: 05-18-[address] Tyler Benitez Work Phone: [facility] Start: 05-16-2022 End: 05-16-[address] Tyler Benitez Work Phone: [facility] Start: 05-11-2022 End: 05-11-2022 ambulatory Prerna Lemon PT [facility] Comment on above: Lymphedema of both l ower extremities (Primary Dx) Start: 05-11-2022 End: 05-11-[address] Tyler Benitez Work Phone: [facility] Start: 05-08-2022 End: 05-08-2022 Emergency department patient visit Dr. Tyler Benitez Work Phone: [facility] Start: 05-04-2022 End: 05-04-2022 ambulatory Prerna Lemon PT [facility] Comment on above: Lymphedema of both l ower extremities (Primary Dx) Start: 05-04-2022 End: 05-04-[address] Tyler Benitez Work Phone: [facility] Start: 04-27-2022 End: 04-27-2022 ambulatory Prerna Lemon PT [facility] Comment on above: Lymphedema of both l ower extremities (Primary Dx) Start: 04-20-2022 End: 04-20-2022 ambulatory Prerna Lemon PT [facility] Comment on above: Lymphedema of both l ower extremities (Primary Dx) Start: 04-16-2022 End: 04-16-[address] Tyler Benitez Work Phone: [facility] Start: 04-13-2022 End: 04-13-2022 ambulatory Prerna Lemon PT [facility] Comment on above: Lymphedema of both l ower extremities (Primary Dx) Start: 04-06-2022 End: 04-06-2022 ambulatory Prerna Lemon PT [facility] Comment on above: Lymphedema of both l ower extremities (Primary Dx) Start: 03-30-2022 End: 03-30-2022 ambulatory Prerna Lemon PT [facility] Comment on above: Lymphedema of both l ower extremities (Primary Dx) Start: 03-23-2022 End: 03-23-2022 ambulatory Prerna Lemon PT [facility] Comment on above: Lymphedema of both l ower extremities (Primary Dx) Start: 03-19-2022 End: 03-19-2022 ambulatory Prerna Lemon PT [facility] Comment on above: Lymphedema of both l ower extremities (Primary Dx) Start: 03-19-2022 End: 03-19-[address] Tyler Benitez Work Phone: [facility] Start: 03-07-2022 End: 03-07-2022 ambulatory Prerna Lemon PT [facility] Comment on above: Lymphedema of both l ower extremities (Primary Dx) Start: 02-28-2022 End: 02-28-[address] Tyler Benitez Work Phone: [facility] Start: 02-23-2022 End: 02-23-2022 ambulatory Prerna Lemon PT [facility] Comment on above: Lymphedema of both l ower extremities (Primary Dx) Start: 02-16-2022 End: 02-16-2022 ambulatory Prerna Lemon PT [facility] Comment on above: Lymphedema of both l ower extremities (Primary Dx) Start: 02-02-2022 End: 02-02-2022 ambulatory Prerna Lemon PT [facility] Comment on above: Lymphedema of both l ower extremities (Primary Dx) Start: 01-18-2022 End: 01-18-2022 Emergency department patient visit Dr. Tyler Benitez Work Phone: [facility] Start: 01-16-2022 End: 01-16-2022 Emergency department patient visit Dr. Tyler Benitez Work Phone: [facility] Start: 01-05-2022 End: 01-05-2022 ambulatory Prerna Lemon PT Work Phone: [facility] Comment on above: Lymphedema of both l ower extremities (Primary Dx) Start: 12-29-2021 End: 12-29-2021 ambulatory Prerna Lemon PT Work Phone: [facility] Comment on above: Lymphedema of both l ower extremities (Primary Dx) Start: 12-25-2021 End: 12-25-[address] Tyler Benitez Work Phone: [facility] Start: 12-22-2021 End: 12-22-2021 ambulatory Prerna Lemon PT Work Phone: [facility] Comment on above: Lymphedema of both l ower extremities (Primary Dx) Start: 12-06-2021 End: 12-06-2021 Patient encounter procedure Radha Wood Work Phone: Podiatry Comment on above: Onychomycosis (Prima ry Dx); Pain in toe of left foot; Pain in toe of right foot; Hyperkeratosis Start: 12-04-2021 End: 12-04-2021 ambulatory Prerna Lemon PT Work Phone: [facility] Comment on above: Lymphedema of both l ower extremities (Primary Dx) Start: 11-24-2021 End: 11-24-[address] Tyler Benitez Work Phone: [facility] Start: 11-24-2021 End: 11-24-[address] Tyler Benitez Work Phone: [facility] Start: 11-08-2021 End: 11-08-[address] Tyler Benitez Work Phone: [facility] Start: 10-24-2021 Non-patient / Non-visit Dr. Silvio Benitez Work Phone: [facility] Start: 10-23-2021 Non-patient / Non-visit Dr. Silvio Benitez Work Phone: [facility] Start: 10-23-2021 Non-patient / Non-visit Dr. Silvio Benitez Work Phone: [facility] Start: 10-23-2021 Non-patient / Non-visit Dr. Silvio Benitez Work Phone: [facility] Start: 10-23-2021 Non-patient / Non-visit Dr. Silvio Benitez Work Phone: [facility] Start: 10-23-2021 Non-patient / Non-visit Dr. Silvio Benitez Work Phone: [facility] Start: 10-22-2021 Non-patient / Non-visit Dr. Silvio Benitez Work Phone: [facility] Start: 10-22-2021 End: 10-24-2021 Evaluation and management of inpatient Dr. Tyler Benitez Work Phone: [facility] Start: 01-17-2018 Patient encounter procedure MIKE HEAD Facility:[facility] Start: 01-08-2018 Patient encounter procedure MIKE HEAD Facility:[facility] Start: 09-17-2017 Patient encounter procedure NATA COTO Facility:[facility] Start: 08-22-2017 Patient encounter procedure GEO REILLY Facility:[facility] Start: 08-05-2017 Patient encounter procedure ODALIS GUALLPA Facility:[facility] Start: 07-02-2017 End: 07-02-2017 Ambulatory UNKNOWN PROVIDER Facility:[facility] Procedures Date Procedure Procedure Detail Performing Clinician Start: 03-02-[address] Tyler Benitez MD Work Phone: Start: 03-02-2025 X-ray of chest, PA a nd lateral views Dr. yTler Benitez MD Work Phone: Start: 11-10-2024 Estimated [...] Detail Author Start: 07-02-2027 Urine microalbumin profile [facility] Start: 04-01-2026 DIABETES SCREEN DIABETES SCREEN [facility] Start: 04-01-2026 Diabetes Screening Diabetes Screenin g [facility] Start: 03-29-2026 DIABETES SCREEN DIABETES SCREEN [facility] Start: 06-18-2025 End: 06-18-2025 Patient encounter procedure 06/18/2025 2:40 PM EDT Office Visit Podiatry [address] [place] [address] Radha Wood [address] [place], [place] [id number] 3 month follow up Podiatry Comment on above: 3 month follow up Start: 05-27-2025 End: 05-27-2025 ambulatory 05/27/2025 11:30 AM EDT OT/PT/Speech Visit [facility] [address] [place] [address] Morris Lo, PT [address] [place] [address] Pes planus of both feet [M21.41, M21.42] [facility] Comment on above: Pes planus of both f eet [M21.41, M21.42] Start: 04-26-2025 Influenza vaccination [facility] Start: 03-17-2025 End: 03-17-2025 ambulatory [facility] Comment on above: I89.0 (ICD-10-CM) - Lymphedema of both lower extremities 15 visits thru 06/17 Start: 03-11-2025 End: 03-11-2025 Patient encounter procedure 03/11/2025 2:00 PM EDT Office Visit Podiatry [address] [place] [address] Radha Wood [address] [place] [address] follow up nail care Podiatry Comment on above: follow up nail care Start: 03-02-2025 End: 03-02-2025 [facility] Start: 12-18-2024 End: 12-18-2024 ambulatory 12/18/2024 2:45 PM EDT OT/PT/Speech Visit [facility] [address] [place], [place] [id number] Prerna Bonds PT I89.0 (ICD-10-CM) - Lymphedema of both lower extremities [facility] Comment on above: I89.0 (ICD-10-CM) - Lymphedema of both lower extremities Start: 12-11-2024 End: 12-11-2024 ambulatory 12/11/2024 2:45 PM EDT OT/PT/Speech Visit [facility] [address] [place] [address] Lemon, Prerna, PT I89.0 (ICD-10-CM) - Lymphedema of both lower extremities [facility] Comment on above: I89.0 (ICD-10-CM) - Lymphedema of both lower extremities Start: 12-04-2024 End: 12-04-2024 ambulatory 12/04/2024 2:45 PM EDT OT/PT/Speech Visit [facility] [address] [place] [address] Lemon, Prerna, PT I89.0 (ICD-10-CM) - Lymphedema of both lower extremities [facility] Comment on above: I89.0 (ICD-10-CM) - Lymphedema of both lower extremities Start: 11-27-2024 End: 11-27-2024 ambulatory 11/27/2024 2:45 PM EDT OT/PT/Speech Visit [facility] [address] [place] [address] Lemon, Prerna, PT I89.0 (ICD-10-CM) - Lymphedema of both lower extremities [facility] Comment on above: I89.0 (ICD-10-CM) - Lymphedema of both lower extremities Start: 11-24-2024 End: 11-24-2024 Patient encounter procedure Podiatry Comment on above: follow up nail care Start: 11-20-2024 End: 11-20-2024 ambulatory 11/20/2024 2:45 PM EDT OT/PT/Speech Visit [facility] [address] [place] [address] Lemon, Prerna, PT Lymphedema [facility] Comment on above: Lymphedema Start: 11-13-2024 End: 11-13-2024 ambulatory 11/13/2024 2:45 PM EDT OT/PT/Speech Visit [facility] [address] [place] [address] Lemon, Prerna, PT Lymphedema [facility] Comment on above: Lymphedema Start: 11-10-2024 [facility] Start: 11-10-2024 [facility] Start: 11-10-2024 Bacteria identified in Blood by Culture Blood Culture [facility] Start: 09-25-2024 End: 09-25-2024 ambulatory 09/25/2024 2:45 PM EST OT/PT/Speech Visit [facility] [address] [place] [address] Lemon, Prerna, PT 89.0 (ICD-10-CM) - Lymphedema, not elsewhere classified [facility] Comment on above: 89.0 (ICD-10-CM) - L ymphedema, not elsewhere classified Start: 09-18-2024 End: 09-18-2024 ambulatory 09/18/2024 2:45 PM EST OT/PT/Speech Visit [facility] [address] [place] [address] Lemon, Prerna, PT 89.0 (ICD-10-CM) - Lymphedema, not elsewhere classified [facility] Comment on above: 89.0 (ICD-10-CM) - L ymphedema, not elsewhere classified Start: 09-11-2024 End: 09-11-2024 ambulatory 09/11/2024 2:45 PM EST OT/PT/Speech Visit [facility] [address] [place] [address] Lemon, Prerna, PT 89.0 (ICD-10-CM) - Lymphedema, not elsewhere classified [facility] Comment on above: 89.0 (ICD-10-CM) - L ymphedema, not elsewhere classified Start: 09-04-2024 End: 09-04-2024 ambulatory 09/04/2024 2:45 PM EST OT/PT/Speech Visit [facility] [address] [place] [address] Lemon, Prerna, PT 89.0 (ICD-10-CM) - Lymphedema, not elsewhere classified [facility] Comment on above: 89.0 (ICD-10-CM) - L ymphedema, not elsewhere classified Start: 09-04-2024 End: 09-04-2024 Documentation procedure 09/04/2024 Plan of Care Documentation [facility] [address] [place] [address] [facility] Start: 08-28-2024 [facility] Work Phone[facility] Start: 08-26-2024 Advance Directive Discussion Advance Directive Discussion [facility] Start: 08-26-2024 Medicare Advantage A nnual Wellness Visit Medicare Advantage Annual Wellness Visit [facility] Start: 08-24-2024 End: 08-24-2024 ambulatory 08/24/2024 4:00 PM EST OT/PT/Speech Visit [facility] [address] [place] [address] Lemon, Prerna, PT 89.0 (ICD-10-CM) - Lymphedema, not elsewhere classified [facility] Comment on above: 89.0 (ICD-10-CM) - L ymphedema, not elsewhere classified Start: 08-14-2024 End: 08-14-2024 ambulatory 08/14/2024 1:00 PM EST OT/PT/Speech Visit [facility] [address] [place] [address] Lemon, Prerna, PT 89.0 (ICD-10-CM) - Lymphedema, not elsewhere classified [facility] Comment on above: 89.0 (ICD-10-CM) - L ymphedema, not elsewhere classified Start: 08-03-2024 End: 08-03-2024 Patient encounter procedure Podiatry Comment on above: follow up callus Start: 07-17-2024 End: 07-17-2024 ambulatory 07/17/2024 2:45 PM EST OT/PT/Speech Visit [facility] [address] [place] [address] Lemon, Prerna, PT 89.0 (ICD-10-CM) - Lymphedema, not elsewhere classified [facility] Comment on above: 89.0 (ICD-10-CM) - L ymphedema, not elsewhere classified Start: 06-24-2024 End: 06-24-2024 ambulatory [facility] Comment on above: I89.0 (ICD-10-CM) - Lymphedema, not elsewhere classified Start: 06-19-2024 End: 06-19-2024 ambulatory 06/19/2024 2:45 PM EDT OT/PT/Speech Visit [facility] [address] [place] [address] Lemon, Prerna, PT I89.0 (ICD-10-CM) - Lymphedema, not elsewhere classified [facility] Comment on above: I89.0 (ICD-10-CM) - Lymphedema, not elsewhere classified Start: 05-29-2024 End: 05-29-2024 ambulatory 05/29/2024 2:45 PM EDT OT/PT/Speech Visit [facility] [address] [place] [address] Lemon, Prerna, PT I89.0 (ICD-10-CM) - Lymphedema, not elsewhere classified [facility] Comment on above: I89.0 (ICD-10-CM) - Lymphedema, not elsewhere classified Start: 05-22-2024 End: 05-22-2024 ambulatory 05/22/2024 2:45 PM EDT OT/PT/Speech Visit [facility] [address] [place] [address] Lemon, Prerna, PT I89.0 (ICD-10-CM) - Lymphedema, not elsewhere classified [facility] Comment on above: I89.0 (ICD-10-CM) - Lymphedema, not elsewhere classified Start: 05-15-2024 End: 05-15-2024 ambulatory 05/15/2024 2:45 PM EDT OT/PT/Speech Visit [facility] [address] [place] [address] Lemon, Prerna, PT I89.0 (ICD-10-CM) - Lymphedema, not elsewhere classified [facility] Comment on above: I89.0 (ICD-10-CM) - Lymphedema, not elsewhere classified Start: 05-13-2024 End: 05-13-2024 ambulatory 05/13/2024 3:30 PM EDT OT/PT/Speech Visit [facility] [address] [place] [address] Lemon, Prerna, PT I89.0 (ICD-10-CM) - Lymphedema, not elsewhere classified [facility] Comment on above: I89.0 (ICD-10-CM) - Lymphedema, not elsewhere classified Start: 05-08-2024 End: 05-08-2024 ambulatory 05/08/2024 2:45 PM EDT OT/PT/Speech Visit [facility] [address] [place] [address] Lemon, Prerna, PT I89.0 (ICD-10-CM) - Lymphedema, not elsewhere classified [facility] Comment on above: I89.0 (ICD-10-CM) - Lymphedema, not elsewhere classified Start: 05-01-2024 End: 05-01-2024 ambulatory 05/01/2024 1:45 PM EDT OT/PT/Speech Visit [facility] [address] [place] [address] Lemon, Prerna, PT I89.0 (ICD-10-CM) - Lymphedema, not elsewhere classified [facility] Comment on above: I89.0 (ICD-10-CM) - Lymphedema, not elsewhere classified Start: 04-26-2024 Covid-19 Vaccine () Covid-19 Vaccine () [facility] Start: 04-26-2024 Covid-19 Vaccine (4 - 2024-25 season) Covid-19 Vaccine ( season) [facility] Start: 04-26-2024 Influenza vaccination [facility] Start: 04-24-2024 End: 04-24-2024 ambulatory 04/24/2024 2:45 PM EDT OT/PT/Speech Visit [facility] [address] [place] [address] Lemon, Prerna, PT I89.0 (ICD-10-CM) - Lymphedema, not elsewhere classified [facility] Comment on above: I89.0 (ICD-10-CM) - Lymphedema, not elsewhere classified Start: 04-17-2024 End: 04-17-2024 ambulatory 04/17/2024 1:00 PM EDT OT/PT/Speech Visit [facility] [address] [place] [address] Lemon, Prerna, PT I89.0 (ICD-10-CM) - Lymphedema, not elsewhere classified [facility] Comment on above: I89.0 (ICD-10-CM) - Lymphedema, not elsewhere classified Start: 04-10-2024 End: 04-10-2024 Patient encounter procedure 04/10/2024 3:20 PM EDT Office Visit Podiatry [address] [place] [address] Radha Wood [address] [place] [address] month follow up nail care Podiatry Comment on above: month follow up nail care Start: 04-10-2024 End: 04-10-2024 ambulatory 04/10/2024 1:00 PM EDT OT/PT/Speech Visit [facility] [address] [place] [address] Lemon, Prerna, PT I89.0 (ICD-10-CM) - Lymphedema, not elsewhere classified [facility] Comment on above: I89.0 (ICD-10-CM) - Lymphedema, not elsewhere classified Start: 04-03-2024 End: 04-03-2024 ambulatory 04/03/2024 1:00 PM EDT OT/PT/Speech Visit [facility] [address] [place] [address] Lemon, Prerna, PT I89.0 (ICD-10-CM) - Lymphedema, not elsewhere classified [facility] Comment on above: I89.0 (ICD-10-CM) - Lymphedema, not elsewhere classified Start: 03-27-2024 End: 03-27-2024 ambulatory 03/27/2024 2:45 PM EDT OT/PT/Speech Visit [facility] [address] [place] [address] Lemon, Prerna, PT I89.0 - Lymphedema [facility] Comment on above: I89.0 - Lymphedema Start: 03-13-2024 End: 03-13-2024 ambulatory 03/13/2024 2:45 PM EDT OT/PT/Speech Visit [facility] [address] [place] [address] Lemon, Prerna, PT I89.0 (ICD-10-CM) - Lymphedema, not elsewhere classified [facility] Comment on above: I89.0 (ICD-10-CM) - Lymphedema, not elsewhere classified Start: 03-06-2024 End: 03-06-2024 ambulatory 03/06/2024 2:45 PM EDT OT/PT/Speech Visit [facility] [address] [place] [address] Lemon, Prerna, PT I89.0 (ICD-10-CM) - Lymphedema, not elsewhere classified [facility] Comment on above: I89.0 (ICD-10-CM) - Lymphedema, not elsewhere classified Start: 03-04-2024 End: 03-04-2024 ambulatory 03/04/2024 2:00 PM EDT OT/PT/Speech Visit [facility] [address] [place] [address] Lemon, Prerna, PT I89.0 (ICD-10-CM) - Lymphedema, not elsewhere classified [facility] Comment on above: I89.0 (ICD-10-CM) - Lymphedema, not elsewhere classified Start: 02-14-2024 Documentation procedure 2023 Plan of Care Documentation [facility] [address] [place] [address] [facility] Start: 02-14-2024 End: 02-14-2024 ambulatory 02/14/2024 1:45 PM EDT OT/PT/Speech Visit [facility] [address] [place] [address] Lemon, Prerna, PT I89.0 (ICD-10-CM) - Lymphedema, not elsewhere classified [facility] Comment on above: I89.0 (ICD-10-CM) - Lymphedema, not elsewhere classified Start: 02-07-2024 End: 02-07-2024 ambulatory 02/07/2024 1:00 PM EDT OT/PT/Speech Visit [facility] [address] [place] [address] Lemon, Prerna, PT I89.0 (ICD-10-CM) - Lymphedema of both lower extremities [facility] Comment on above: I89.0 (ICD-10-CM) - Lymphedema of both lower extremities Start: 01-24-2024 End: 01-24-2024 ambulatory 01/24/2024 11:00 AM EDT OT/PT/Speech Visit [facility] [address] [place] [address] Lemon, Prerna, PT I89.0 (ICD-10-CM) - Lymphedema, not elsewhere classified [facility] Comment on above: I89.0 (ICD-10-CM) - Lymphedema, not elsewhere classified Start: 01-17-2024 End: 01-17-2024 ambulatory 01/17/2024 1:45 PM EDT OT/PT/Speech Visit [facility] [address] [place] [address] Prerna Bonds, PT I89.0 (ICD-10-CM) - Lymphedema, not elsewhere classified [facility] Comment on above: I89.0 (ICD-10-CM) - Lymphedema, not elsewhere classified Start: 01-03-2024 End: 01-03-2024 Patient encounter procedure 01/03/2024 3:40 PM EDT Office Visit Podiatry [address] [place], [place] [id number] Radha Wood [address] [place] [address] nail care Podiatry Comment on above: nail care Start: 08-26-2023 Advance Directive Discussion Advance Directive Discussion [facility] Start: 08-26-2023 Behavioral Health Screening Behavioral Health Screening [facility] Start: 08-26-2023 Depression Assessment Depression Ass essment [facility] Start: 05-24-2023 Emergency department visit limited/minor prob EMR DPT VST MAYX REQ PHY/QHP [facility] Start: 04-26-2023 Covid-19 Vaccine ( season) Covid-19 Vaccine ( season) [facility] Start: 04-26-2023 Covid-19 Vaccine ( season) Covid-19 Vaccine ( season) [facility] Start: 04-26-2023 Influenza vaccination [facility] Start: 04-19-2023 Patient discharge [facility] Start: 04-15-2023 Following clinical pathway protocol [facility] Start: 04-15-2023 Ambulation without limitation [facility] Start: 04-15-2023 Assessment of risk o f venous thromboembolism [facility] Start: 04-15-2023 Consultation for treatment [facility] Start: 04-15-[address] [facility] Start: 04-15-2023 Insertion of cathete r into peripheral vein [facility] Start: 04-15-2023 Measuring intake and output [facility] Start: 04-15-2023 Oxygen therapy [facility] Start: 04-15-2023 Providing care accor ding to standard [facility] Start: 04-15-2023 Referral to occupati onal therapist [facility] Start: 04-15-2023 Referral to service [facility] Start: 04-15-2023 [facility] Start: 04-15-2023 Admission procedure [facility] Start: 04-15-2023 Verification routine [facility] Start: 04-15-2023 Referral to service [facility] Start: 04-15-2023 [facility] Start: 04-04-2023 Referral to service [facility] Start: 03-25-2023 Referral to service [facility] Start: 03-19-2023 Patient discharge [facility] Start: 03-17-2023 Consultation for treatment [facility] Start: 03-17-2023 Following clinical pathway protocol [facility] Start: 03-17-2023 Assessment of risk o f venous thromboembolism [facility] Start: 03-17-2023 Insertion of cathete r into peripheral vein [facility] Start: 03-17-2023 Providing care accor roman to [facility] Start: 03-17-2023 Provision of activit y privileges [facility] Start: 03-17-2023 Referral to occupati onal therapist [facility] Start: 03-17-2023 Referral to service [facility] Start: 03-17-2023 [facility] Start: 03-17-2023 Admission procedure [facility] Start: 03-17-2023 Patient referral to dietitian [facility] Start: 03-12-2023 [facility] Work Phone[facility] Start: 02-26-2023 [facility] Start: 01-15-2023 [facility] Start: 10-03-2022 Screening for osteoporosis Bone Density Screening [facility] Start: 08-26-2022 ADVANCE DIRECTIVE DISCUSSION ADVANCE DIRECTIVE DISCUSSION [facility] Start: 08-26-2022 DEPRESSION ASSESSMENT DEPRESSION ASS ESSMENT [facility] Start: 05-11-2022 [facility] Work Phone: Start: 05-08-2022 [facility] Work Phone: Start: 04-26-2022 Influenza vaccination [facility] Start: 02-28-2022 [facility] Work Phone: Start: 01-18-2022 [facility] Work Phone: Start: 01-16-2022 [facility] Work Phone: Start: 12-06-2021 COVID-19 VACCINE (4 - Booster for Moderna series) COVID-19 VACCINE (4 - Booster for Moderna series) [facility] Start: 10-02-2021 COVID-19 VACCINE (4 - Booster for Moderna series) COVID-19 VACCINE (4 - Booster for Moderna series) [facility] Start: 10-02-2021 COVID-19 VACCINE (4 - Moderna series) COVID-19 VACCINE (4 - Moderna series) [facility] Start: 08-26-2021 ADVANCE DIRECTIVE DISCUSSION ADVANCE DIRECTIVE DISCUSSION [facility] Start: 08-26-2021 DEPRESSION ASSESSMENT DEPRESSION ASS ESSMENT [facility] Start: 07-11-2020 DIABETES SCREEN DIABETES SCREEN [facility] Start: 02-03-2016 Hepatitis B surface antibody level LDL CHOLESTEROL [facility] Start: 2013 RSV Vaccine (1 - 1-d ose 75+ series) RSV Vaccine (1 - 1-dose 75+ series) [facility] Start: 2003 Pneumococcal Vaccine : 65+ (1 - PCV) Pneumococcal Vaccine: 65+ (1 - PCV) [facility] Start: 2003 PNEUMOCOCCAL: 65+ (1 - PCV) PNEUMOCOCCAL: 65+ (1 - PCV) [facility] Start: 2003 PNEUMOVAX AGE 65 AND OVER WITH 5YR LOOKBACK (#1) PNEUMOVAX AGE 65 AND OVER WITH 5YR LOOKBACK (#1) [facility] Start: 1998 RSV Vaccine (1 - 1-d ose 60+ series) RSV Vaccine (1 - 1-dose 60+ series) [facility] Start: 1988 SHINGRIX VACCINE (1 of 2) MIDDLETON GRIX VACCINE (1 of 2) [facility] Start: 1957 SHINGRIX VACCINE (1 of 2) MIDDLETON GRIX VACCINE (1 of 2) [facility] Start: 1957 Urine microalbumin profile [facility] Start: 1956 Anxiety Screening Anxiety Screening [facility] Start: 1956 Depression Screening Depression Scre ening [facility] Start: 1944 PNEUMOCOCCAL: 65+ (1 - PCV) PNEUMOCOCCAL: 65+ (1 - PCV) [facility] Bacteria identified in Wound by Culture ABSCESS AND WOUND CULTURE WITH GRAM STAIN Microbiology Routine Ingrowing toenail of left foot 07/05/2023 4:34 PM EST [facility] Work Phone: Patient Education [facility] Work Phone: Patient referral [facility] Work Phone: End: 10-11-2023 XR FOOT GENERAL 3V AP/LAT/OBL LEFT XR FOOT GENERAL 3V AP/LAT/OBL LEFT Radiology Routine Plantar fasciitis 1 Occurrences starting 09/11/2022 until 10/11/2023 [facility] Work Phone: Comment on above: 1 Occurrences starti ng 09/11/2022 until 10/11/2023 XR FOOT GENERAL 3V AP/LAT/OBL LEFT XR FOOT GENERAL 3V AP/LAT/OBL LEFT Radiology Routine Plantar fasciitis 09/11/2022 3:56 PM EST [facility] Work Phone: End: 05-08-2026 XR Hand - bilateral PA XR HAND/WRIST SURVEY ARTHRITIS 1V PA BILATERAL Radiology Routine Osteoarthritis, generalized 1 Occurrences starting 04/08/2025 until 05/08/2026 [facility] Work Phone: Comment on above: 1 Occurrences starti ng 04/08/2025 until 05/08/2026 End: 08-03-2024 XR TOE AP/LAT/OBL LEFT XR TOE AP/LAT/OBL LEFT Radiology Routine Ingrowing toenail of left foot 1 Occurrences starting 07/05/2023 until 08/03/2024 [facility] Work Phone: Comment on above: 1 Occurrences starti ng 07/05/2023 until 08/03/2024 XR TOE AP/LAT/OBL LEFT XR TOE AP /LAT/OBL LEFT Radiology Routine Ingrowing toenail of left foot 07/17/2023 3:34 PM EST [facility] Work Phone: [facility] Immunizations Immunization Date Immunization Notes Care Provider Fa [facility] 2022 influenza virus vaccine, unspecified formulation Prerna Lemon PT [facility] 12-02-2020 Covarminda (Moderna) Dr. Tyler Putnam Work Phone: [facility] 11-01-2020 Khalida (Moderna) Dr. Tyler Putnam Work Phone: [facility] 07-02-2017 tetanus toxoid, redu judy diphtheria toxoid, and acellular pertussis vaccine, adsorbed Dr. Tyler Benitez Work Phone: [facility] Payers Date Payer Category Payer Self-pay [id number] [phone] [id number] 2019 Medicare HUMANA MEDICARE HUMANA MEDICARE PPO [id number] 2019-Present [phone] [place] [address] PPO [id number] 2019 Medicare HUMANA MEDICARE HUMANA MEDICARE PPO [id number] 2019-Present [phone] [place] [address] PPO [id number] 2019 Medicare (Managed Care) HUMANA M EDICARE [id number] 2013 Private Health Insurance [id number] 1940 Unknown [id number] .2.278 1940 Unknown [id number] [id number] .2.278 1938 Unknown [id number] [id number] .2.278 1938 Unknown [id number] [id number] .2.278 Unknown [id number] 2.16.840.1.347456.3.579 .2.462 Unknown [id number] 2.16.840.1.131181.3.579 .2.462 Unknown [id number] 2.16.840.1.650747.3.579 .2.462 Unknown [id number] 2.16.840.1.631588.3.579 .2.462 Unknown [id number] 2.16.840.1.227193.3.579 .2.462 Unknown [id number] 2.16.840.1.189090.3.579 .2.462 Unknown [id number] 2.16.840.1.434907.3.579 .2.462 Unknown [id number] 2.16.840.1.518227.3.579 .2.462 Unknown [id number] 2.16.840.1.826691.3.579 .2.462 Unknown [id number] 2.16.840.1.777797.3.579 .2.462 Unknown [id number] 2.16.840.1.616044.3.579 .2.462 Unknown [id number] 2.16.840.1.890665.3.579 .2.462 Unknown [id number] 2.16.840.1.646699.3.579 .2.462 Unknown [id number] 2.16.840.1.676691.3.579 .2.462 Unknown [id number] 2.16.840.1.444654.3.579 .2.462 Unknown [id number] [id number] .2.462 Social History Date Type Detail Facility Start: 11-10-2024 End: 03-02-2025 Tobacco smoking status NHIS Never smoked tobacco [facility] Start: 02-19-2020 End: 03-11-2025 Alcohol intake Current non-drinker of alcohol (finding) [facility] Start: 1940 Sex Assigned At Not on file [facility] Start: 11-26-2021 End: 03-07-2022 Exposure to SARS-CoV-2 (event) Not sure [facility] Start: 11-24-2021 End: 08-29-2023 Tobacco smoking status OKIS Unknown if ever smoked [facility] Start: 11-17-2018 None [facility] Start: 11-17-2018 Alone [facility] Start: 12-24-2018 Non-smoker [facility] Start: 1940 Sex Assigned At Female [facility] Start: 01-30-2022 End: 02-09-2022 Exposure to SARS-CoV-2 (event) Unable to assess [facility] Work Phone: Start: 09-11-2022 End: 12-28-2022 History of Social function [facility] Start: 09-11-2022 End: 12-28-2022 Tobacco use panel [facility] Work Phone: Start: 07-27-2012 National Score (1-10 0), lower number is lower risk 67 [facility] Start: 11-10-2024 Sex Female (finding) [facility] Medical Equipment Procedure Code Equipment Code Equipment Origin al Text Equipment Identifier Dates Nail Tfn-Advance d 10mm 130d Short Gold Green Gannon Ti-15mo 170mm - [id number] Start: 07-04-2017 Screw Tfn-Advanc ed 10.35mm Gold Titanium 90mm Bone Cannulated Sterile - [id number] Start: 07-04-2017 Screw 5mm 4.3mm T25 Full Thread Titanium 36mm Bone Lock Self Tap Blunt Tip - [id number] Start: 07-04-2017 Goals Date Patient Goal Desired Activity /State Functional Status Date Assessment Result [facility]-01-[facility]23 Are you deaf, or do you have serious difficulty hearing No 04/01/2023 6:20 PM Quirino Barrientos RN No [facility] 04-01-2023 Are you blind, or do you have serious difficulty seeing, even when wearing glasses No 04/01/2023 6:20 PM Quirino Barrientos RN No [facility] 04-01-2023 Do you have serious difficulty walking or climbing stairs No 04/01/2023 6:20 PM Quirino Barrientos RN No [facility] 04-01-2023 Do you have difficul ty dressing or bathing No 04/01/2023 6:20 PM Quirino Barrientos RN No [facility] 04-01-2023 Because of a physica l, mental, or emotional condition, do you have difficulty doing errands alone such as visiting a physician's office or shopping No 04/01/2023 6:20 PM Quirino Barrientos RN No [facility] 03-19-2023 Functional status Ambulates;Riaz r;Bathroom Privilege [facility] Work Phone: 10-24-2021 [facility] [facility] Work Phone: Mental Status Date Assessment Result Facility 05-24-2023 Cognitive function Level Of Cons ciousness Awake;Alert;Appropriate;Fol lows Commands [facility] Work Phone: 04-18-2023 Cognitive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 for falls Atherosclerotic heart disease of [place] coronary artery without angina pectoris Falls Inability to walk Essential hypertension Secondary pulmonary arterial hypertension Chief Complaint Diarrhea SOB WEAKNESS 3 M FU CELLULITIS Cellulitis Cellulitis Cellulitis Lower Extremity LEFT FOOT PAIN FAILURE TO THRIVE FAILURE TO THRIVE FAILURE TO THRIVE FAILURE TO THRIVE FAILURE TO THRIVE Reason for Visit 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 pectoris Chronic combined systolic and diastolic CHF (congestive heart failure) Essential hypertension Hyperlipemia, mixed Lymphedema Nonrheumatic mitral valve insufficiency History of heart disease History of ITP Chronic renal insufficiency Cellulitis of left leg Leukocytosis Adult failure to thrive At high risk for falls Atherosclerotic heart disease of [place] coronary artery without angina pectoris Falls Inability to walk Essential hypertension Secondary pulmonary arterial hypertension Chief Complaint WEAKNESS 3 M FU CELLULITIS Cellulitis Cellulitis Cellulitis Lower Extremity LEFT FOOT PAIN FAILURE TO THRIVE FAILURE TO THRIVE FAILURE TO THRIVE FAILURE TO THRIVE FAILURE TO THRIVE EDEMA Reason for Visit 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 pectoris Chronic combined systolic and diastolic CHF (congestive heart failure) Essential hypertension Hyperlipemia, mixed Lymphedema Nonrheumatic mitral valve insufficiency History of heart disease History of ITP Chronic renal insufficiency Cellulitis of left leg Leukocytosis Adult failure to thrive At high risk for falls Atherosclerotic heart disease of [place] coronary artery without angina pectoris Essential hypertension Secondary pulmonary arterial hypertension Falls Inability to walk Chief Complaint WEAKNESS 3 M FU CELLULITIS Cellulitis Cellulitis Cellulitis Lower Extremity LEFT FOOT PAIN FAILURE TO THRIVE FAILURE TO THRIVE FAILURE TO THRIVE FAILURE TO THRIVE FAILURE TO THRIVE EDEMA EORDER Reason for Visit 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 pectoris Chronic combined systolic and diastolic CHF (congestive heart failure) Essential hypertension Hyperlipemia, mixed Lymphedema Nonrheumatic mitral valve insufficiency History of heart disease History of ITP Chronic renal insufficiency Cellulitis of left leg Leukocytosis Adult failure to thrive At high risk for falls Atherosclerotic heart disease of [place] coronary artery without angina pectoris Essential hypertension Secondary pulmonary arterial hypertension Falls Inability to walk Chief Complaint 3 M FU CELLULITIS Cellulitis Cellulitis Cellulitis Lower Extremity LEFT FOOT PAIN FAILURE TO THRIVE FAILURE TO THRIVE FAILURE TO THRIVE FAILURE TO THRIVE FAILURE TO THRIVE EDEMA EORDER Reason for Visit 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 pectoris Chronic combined systolic and diastolic CHF (congestive heart failure) Essential hypertension Hyperlipemia, mixed Lymphedema Nonrheumatic mitral valve insufficiency History of heart disease History of ITP Chronic renal insufficiency Cellulitis of left leg Leukocytosis Adult failure to thrive At high risk for falls Atherosclerotic heart disease of [place] coronary artery without angina pectoris Essential hypertension [...] [employer], [facility] [place] [address] [place] [address] Referral ID Status Reason Start Date Expiration Date Visits Requested Visits Authorized [id number] Pending Review PCP Requested Referral Auto-Generate d Referral 03/21/2022 06/19/2022 1 1 Referral ID Status Reason Start Date Expiration Date Visits Requested Visits Authorized [id number] Pending Review PCP Requested Referral Auto-Generate d Referral 11/23/2022 02/21/2023 1 1 Referral ID Status Reason Start Date Expiration Date Visits Requested Visits Authorized [id number] Pending Review PCP Requested Referral Auto-Generate d Referral 04/12/2023 07/11/2023 1 1 Referral ID Status Reason Start Date Expiration Date Visits Requested Visits Authorized [id number] Pending Review PCP Requested Referral Auto-Generate d Referral 01/17/2024 04/16/2024 1 1 Referral ID Status Reason Start Date Expiration Date Visits Requested Visits Authorized [id number] New Request PCP Requested Referral Auto-Generate d Referral 09/25/2024 12/24/2024 1 1 Additional Source Comments INFORMATION SOURCE (unrecogn ized section and content) DATE CREATED AUTHOR 02/18/2018 [facility] [facility] DATE CREATED AUTHOR AUTHOR'S ORGANIZ ATION 08/03/2018 [facility] DATE CREATED AUTHOR AUTHOR'S ORGANIZ ATION 01/04/2023 [facility] DATE CREATED AUTHOR AUTHOR'S ORGANIZ ATION 04/14/2023 [facility] DATE CREATED AUTHOR AUTHOR'S ORGANIZ ATION 03/19/2025 [facility] DATE CREATED AUTHOR AUTHOR'S ORGANIZ ATION 04/10/2025 [facility] DATE CREATED AUTHOR AUTHOR'S ORGANIZ ATION 06/16/2025 [facility] Source Comments (unrecognize d section and content) In the event this informatio n is protected by the Federal Confidentiality of Alcohol and Drug Abuse Patient Records regulations: The Federal rules restrict any use of the information to criminally investigate or prosecute any alcohol or drug abuse patient.[facility] the event this information is protected by the Federal Confidentiality of Alcohol and Drug Abuse Patient Records regulations: The Federal rules restrict any use of the information to criminally investigate or prosecute any alcohol or drug abuse patient.[facility] HospitalIn the event this information is protected by the Federal Confidentiality of Alcohol and Drug Abuse Patient Records regulations: The Federal rules restrict any use of the information to criminally investigate or prosecute any alcohol or drug abuse patient.[facility] HospitalIn the event this information is protected by the Federal Confidentiality of Alcohol and Drug Abuse Patient Records regulations: The Federal rules restrict any use of the information to criminally investigate or prosecute any alcohol or drug abuse patient.[facility] HospitalIn the event this information is protected by the Federal Confidentiality of Alcohol and Drug Abuse Patient Records regulations: The Federal rules restrict any use of the information to criminally investigate or prosecute any alcohol or drug abuse patient.[facility] HospitalIn the event this information is protected by the Federal Confidentiality of Alcohol and Drug Abuse Patient Records regulations: The Federal rules restrict any use of the information to criminally investigate or prosecute any alcohol or drug abuse patient.[facility] HospitalIn the event this information is protected by the Federal Confidentiality of Alcohol and Drug Abuse Patient Records regulations: The Federal rules restrict any use of the information to criminally investigate or prosecute any alcohol or drug abuse patient.[facility] HospitalIn the event this information is protected by the Federal Confidentiality of Alcohol and Drug Abuse Patient Records regulations: The Federal rules restrict any use of the information to criminally investigate or prosecute any alcohol or drug abuse patient.[facility] HospitalIn the event this information is protected by the Federal Confidentiality of Alcohol and Drug Abuse Patient Records regulations: The Federal rules restrict any use of the information to criminally investigate or prosecute any alcohol or drug abuse patient.[facility] HospitalIn the event this information is protected by the Federal Confidentiality of Alcohol and Drug Abuse Patient Records regulations: The Federal rules restrict any use of the information to criminally investigate or prosecute any alcohol or drug abuse patient.[facility] HospitalIn the event this information is protected by the Federal Confidentiality of Alcohol and Drug Abuse Patient Records regulations: The Federal rules restrict any use of the information to criminally investigate or prosecute any alcohol or drug abuse patient.[facility] HospitalIn the event this information is protected by the Federal Confidentiality of Alcohol and Drug Abuse Patient Records regulations: The Federal rules restrict any use of the information to criminally investigate or prosecute any alcohol or drug abuse patient.[facility] HospitalIn the event this information is protected by the Federal Confidentiality of Alcohol and Drug Abuse Patient Records regulations: The Federal rules restrict any use of the information to criminally investigate or prosecute any alcohol or drug abuse patient.[facility] HospitalIn the event this information is protected by the Federal Confidentiality of Alcohol and Drug Abuse Patient Records regulations: The Federal rules restrict any use of the information to criminally investigate or prosecute any alcohol or drug abuse patient.[facility] HospitalIn the event this information is protected by the Federal Confidentiality of Alcohol and Drug Abuse Patient Records regulations: The Federal rules restrict any use of the information to criminally investigate or prosecute any alcohol or drug abuse patient.[facility] HospitalIn the event this information is protected by the Federal Confidentiality of Alcohol and Drug Abuse Patient Records regulations: The Federal rules restrict any use of the information to criminally investigate or prosecute any alcohol or drug abuse patient.[facility] HospitalIn the event this information is protected by the Federal Confidentiality of Alcohol and Drug Abuse Patient Records regulations: The Federal rules restrict any use of the information to criminally investigate or prosecute any alcohol or drug abuse patient.[facility] HospitalIn the event this information is protected by the Federal Confidentiality of Alcohol and Drug Abuse Patient Records regulations: The Federal rules restrict any use of the information to criminally investigate or prosecute any alcohol or drug abuse patient.[facility] HospitalIn the event this information is protected by the Federal Confidentiality of Alcohol and Drug Abuse Patient Records regulations: The Federal rules restrict any use of the information to criminally investigate or prosecute any alcohol or drug abuse patient.[facility] HospitalIn the event this information is protected by the Federal Confidentiality of Alcohol and Drug Abuse Patient Records regulations: The Federal rules restrict any use of the information to criminally investigate or prosecute any alcohol or drug abuse patient.[facility] HospitalIn the event this information is protected by the Federal Confidentiality of Alcohol and Drug Abuse Patient Records regulations: The Federal rules restrict any use of the information to criminally investigate or prosecute any alcohol or drug abuse patient.[facility] HospitalIn the event this information is protected by the Federal Confidentiality of Alcohol and Drug Abuse Patient Records regulations: The Federal rules restrict any use of the information to criminally investigate or prosecute any alcohol or drug abuse patient.[facility] HospitalIn the event this information is protected by the Federal Confidentiality of Alcohol and Drug Abuse Patient Records regulations: The Federal rules restrict any use of the information to criminally investigate or prosecute any alcohol or drug abuse patient.[facility] HospitalIn the event this information is protected by the Federal Confidentiality of Alcohol and Drug Abuse Patient Records regulations: The Federal rules restrict any use of the information to criminally investigate or prosecute any alcohol or drug abuse patient.[facility] HospitalIn the event this information is protected by the Federal Confidentiality of Alcohol and Drug Abuse Patient Records regulations: The Federal rules restrict any use of the information to criminally investigate or prosecute any alcohol or drug abuse patient.[facility] HospitalIn the event this information is protected by the Federal Confidentiality of Alcohol and Drug Abuse Patient Records regulations: The Federal rules restrict any use of the information to criminally investigate or prosecute any alcohol or drug abuse patient.[facility] HospitalIn the event this information is protected by the Federal Confidentiality of Alcohol and Drug Abuse Patient Records regulations: The Federal rules restrict any use of the information to criminally investigate or prosecute any alcohol or drug abuse patient.[facility] HospitalIn the event this information is protected by the Federal Confidentiality of Alcohol and Drug Abuse Patient Records regulations: The Federal rules restrict any use of the information to criminally investigate or prosecute any alcohol or drug abuse patient.[facility] HospitalIn the event this information is protected by the Federal Confidentiality of Alcohol and Drug Abuse Patient Records regulations: The Federal rules restrict any use of the information to criminally investigate or prosecute any alcohol or drug abuse patient.[facility] HospitalIn the event this information is protected by the Federal Confidentiality of Alcohol and Drug Abuse Patient Records regulations: The Federal rules restrict any use of the information to criminally investigate or prosecute any alcohol or drug abuse patient.[facility] HospitalIn the event this information is protected by the Federal Confidentiality of Alcohol and Drug Abuse Patient Records regulations: The Federal rules restrict any use of the information to criminally investigate or prosecute any alcohol or drug abuse patient.[facility] HospitalIn the event this information is protected by the Federal Confidentiality of Alcohol and Drug Abuse Patient Records regulations: The Federal rules restrict any use of the information to criminally investigate or prosecute any alcohol or drug abuse patient.[facility] HospitalIn the event this information is protected by the Federal Confidentiality of Alcohol and Drug Abuse Patient Records regulations: The Federal rules restrict any use of the information to criminally investigate or prosecute any alcohol or drug abuse patient.[facility] HospitalIn the event this information is protected by the Federal Confidentiality of Alcohol and Drug Abuse Patient Records regulations: The Federal rules restrict any use of the information to criminally investigate or prosecute any alcohol or drug abuse patient.[facility] [facility] HospitalIn the event this information is protected by the Federal Confidentiality of Alcohol and Drug Abuse Patient Records regulations: The Federal rules restrict any use of the information to criminally investigate or prosecute any alcohol or drug abuse patient.[facility]In the event this information is protected by the Federal Confidentiality of Alcohol and Drug Abuse Patient Records regulations: The Federal rules restrict any use of the information to criminally investigate or prosecute any alcohol or drug abuse patient.[facility]In the event this information is protected by the Federal Confidentiality of Alcohol and Drug Abuse Patient Records regulations: The Federal rules restrict any use of the information to criminally investigate or prosecute any alcohol or drug abuse patient.[facility]In the event this information is protected by the Federal Confidentiality of Alcohol and Drug Abuse Patient Records regulations: The Federal rules restrict any use of the information to criminally investigate or prosecute any alcohol or drug abuse patient.[facility] HospitalIn the event this information is protected by the Federal Confidentiality of Alcohol and Drug Abuse Patient Records regulations: The Federal rules restrict any use of the information to criminally investigate or prosecute any alcohol or drug abuse patient.[facility]In the event this information is protected by the Federal Confidentiality of Alcohol and Drug Abuse Patient Records regulations: The Federal rules restrict any use of the information to criminally investigate or prosecute any alcohol or drug abuse patient.[facility]In the event this information is protected by the Federal Confidentiality of Alcohol and Drug Abuse Patient Records regulations: The Federal rules restrict any use of the information to criminally investigate or prosecute any alcohol or drug abuse patient.[facility] HospitalIn the event this information is protected by the Federal Confidentiality of Alcohol and Drug Abuse Patient Records regulations: The Federal rules restrict any use of the information to criminally investigate or prosecute any alcohol or drug abuse patient.[facility]In the event this information is protected by the Federal Confidentiality of Alcohol and Drug Abuse Patient Records regulations: The Federal rules restrict any use of the information to criminally investigate or prosecute any alcohol or drug abuse patient.[facility]In the event this information is protected by the Federal Confidentiality of Alcohol and Drug Abuse Patient Records regulations: The Federal rules restrict any use of the information to criminally investigate or prosecute any alcohol or drug abuse patient.[facility]In the event this information is protected by the Federal Confidentiality of Alcohol and Drug Abuse Patient Records regulations: The Federal rules restrict any use of the information to criminally investigate or prosecute any alcohol or drug abuse patient.[facility] HospitalIn the event this information is protected by the Federal Confidentiality of Alcohol and Drug Abuse Patient Records regulations: The Federal rules restrict any use of the information to criminally investigate or prosecute any alcohol or drug abuse patient.[facility]In the event this information is protected by the Federal Confidentiality of Alcohol and Drug Abuse Patient Records regulations: The Federal rules restrict any use of the information to criminally investigate or prosecute any alcohol or drug abuse patient.[facility]In the event this information is protected by the Federal Confidentiality of Alcohol and Drug Abuse Patient Records regulations: The Federal rules restrict any use of the information to criminally investigate or prosecute any alcohol or drug abuse patient.[facility]In the event this information is protected by the Federal Confidentiality of Alcohol and Drug Abuse Patient Records regulations: The Federal rules restrict any use of the information to criminally investigate or prosecute any alcohol or drug abuse patient.[facility] HospitalIn the event this information is protected by the Federal Confidentiality of Alcohol and Drug Abuse Patient Records regulations: The Federal rules restrict any use of the information to criminally investigate or prosecute any alcohol or drug abuse patient.[facility] HospitalIn the event this information is protected by the Federal Confidentiality of Alcohol and Drug Abuse Patient Records regulations: The Federal rules restrict any use of the information to criminally investigate or prosecute any alcohol or drug abuse patient.[facility] HospitalIn the event this information is protected by the Federal Confidentiality of Alcohol and Drug Abuse Patient Records regulations: The Federal rules restrict any use of the information to criminally investigate or prosecute any alcohol or drug abuse patient.[facility] HospitalIn the event this information is protected by the Federal Confidentiality of Alcohol and Drug Abuse Patient Records regulations: The Federal rules restrict any use of the information to criminally investigate or prosecute any alcohol or drug abuse patient.[facility] HospitalIn the event this information is protected by the Federal Confidentiality of Alcohol and Drug Abuse Patient Records regulations: The Federal rules restrict any use of the information to criminally investigate or prosecute any alcohol or drug abuse patient.[facility]In the event this information is protected by the Federal Confidentiality of Alcohol and Drug Abuse Patient Records regulations: The Federal rules restrict any use of the information to criminally investigate or prosecute any alcohol or drug abuse patient.[facility] HospitalIn the event this information is protected by the Federal Confidentiality of Alcohol and Drug Abuse Patient Records regulations: The Federal rules restrict any use of the information to criminally investigate or prosecute any alcohol or drug abuse patient.[facility] HospitalIn the event this information is protected by the Federal Confidentiality of Alcohol and Drug Abuse Patient Records regulations: The Federal rules restrict any use of the information to criminally investigate or prosecute any alcohol or drug abuse patient.[facility] HospitalIn the event this information is protected by the Federal Confidentiality of Alcohol and Drug Abuse Patient Records regulations: The Federal rules restrict any use of the information to criminally investigate or prosecute any alcohol or drug abuse patient.[facility] HospitalIn the event this information is protected by the Federal Confidentiality of Alcohol and Drug Abuse Patient Records regulations: The Federal rules restrict any use of the information to criminally investigate or prosecute any alcohol or drug abuse patient.[facility] HospitalIn the event this information is protected by the Federal Confidentiality of Alcohol and Drug Abuse Patient Records regulations: The Federal rules restrict any use of the information to criminally investigate or prosecute any alcohol or drug abuse patient.[facility] HospitalIn the event this information is protected by the Federal Confidentiality of Alcohol and Drug Abuse Patient Records regulations: The Federal rules restrict any use of the information to criminally investigate or prosecute any alcohol or drug abuse patient.[facility] HospitalIn the event this information is protected by the Federal Confidentiality of Alcohol and Drug Abuse Patient Records regulations: The Federal rules restrict any use of the information to criminally investigate or prosecute any alcohol or drug abuse patient.[facility] HospitalIn the event this information is protected by the Federal Confidentiality of Alcohol and Drug Abuse Patient Records regulations: The Federal rules restrict any use of the information to criminally investigate or prosecute any alcohol or drug abuse patient.[facility] HospitalIn the event this information is protected by the Federal Confidentiality of Alcohol and Drug Abuse Patient Records regulations: The Federal rules restrict any use of the information to criminally investigate or prosecute any alcohol or drug abuse patient.[facility] HospitalIn the event this information is protected by the Federal Confidentiality of Alcohol and Drug Abuse Patient Records regulations: The Federal rules restrict any use of the information to criminally investigate or prosecute any alcohol or drug abuse patient.[facility]In the event this information is protected by the Federal Confidentiality of Alcohol and Drug Abuse Patient Records regulations: The Federal rules restrict any use of the information to criminally investigate or prosecute any alcohol or drug abuse patient.[facility] HospitalIn the event this information is protected by the Federal Confidentiality of Alcohol and Drug Abuse Patient Records regulations: The Federal rules restrict any use of the information to criminally investigate or prosecute any alcohol or drug abuse patient.[facility] HospitalIn the event this information is protected by the Federal Confidentiality of Alcohol and Drug Abuse Patient Records regulations: The Federal rules restrict any use of the information to criminally investigate or prosecute any alcohol or drug abuse patient.[facility] HospitalIn the event this information is protected by the Federal Confidentiality of Alcohol and Drug Abuse Patient Records regulations: The Federal rules restrict any use of the information to criminally investigate or prosecute any alcohol or drug abuse patient.[facility]In the event this information is protected by the Federal Confidentiality of Alcohol and Drug Abuse Patient Records regulations: The Federal rules restrict any use of the information to criminally investigate or prosecute any alcohol or drug abuse patient.[facility]In the event this information is protected by the Federal Confidentiality of Alcohol and Drug Abuse Patient Records regulations: The Federal rules restrict any use of the information to criminally investigate or prosecute any alcohol or drug abuse patient.[facility] HospitalIn the event this information is protected by the Federal Confidentiality of Alcohol and Drug Abuse Patient Records regulations: The Federal rules restrict any use of the information to criminally investigate or prosecute any alcohol or drug abuse patient.[facility]In the event this information is protected by the Federal Confidentiality of Alcohol and Drug Abuse Patient Records regulations: The Federal rules restrict any use of the information to criminally investigate or prosecute any alcohol or drug abuse patient.[facility] HospitalIn the event this information is protected by the Federal Confidentiality of Alcohol and Drug Abuse Patient Records regulations: The Federal rules restrict any use of the information to criminally investigate or prosecute any alcohol or drug abuse patient.[facility] HospitalIn the event this information is protected by the Federal Confidentiality of Alcohol and Drug Abuse Patient Records regulations: The Federal rules restrict any use of the information to criminally investigate or prosecute any alcohol or drug abuse patient.[facility] HospitalIn the event this information is protected by the Federal Confidentiality of Alcohol and Drug Abuse Patient Records regulations: The Federal rules restrict any use of the information to criminally investigate or prosecute any alcohol or drug abuse patient.[facility] HospitalIn the event this information is protected by the Federal Confidentiality of Alcohol and Drug Abuse Patient Records regulations: The Federal rules restrict any use of the information to criminally investigate or prosecute any alcohol or drug abuse patient.[facility] HospitalIn the event this information is protected by the Federal Confidentiality of Alcohol and Drug Abuse Patient Records regulations: The Federal rules restrict any use of the information to criminally investigate or prosecute any alcohol or drug abuse patient.[facility] HospitalIn the event this information is protected by the Federal Confidentiality of Alcohol and Drug Abuse Patient Records regulations: The Federal rules restrict any use of the information to criminally investigate or prosecute any alcohol or drug abuse patient.[facility] HospitalIn the event this information is protected by the Federal Confidentiality of Alcohol and Drug Abuse Patient Records regulations: The Federal rules restrict any use of the information to criminally investigate or prosecute any alcohol or drug abuse patient.[facility] HospitalIn the event this information is protected by the Federal Confidentiality of Alcohol and Drug Abuse Patient Records regulations: The Federal rules restrict any use of the information to criminally investigate or prosecute any alcohol or drug abuse patient.[facility]In the event this information is protected by the Federal Confidentiality of Alcohol and Drug Abuse Patient Records regulations: The Federal rules restrict any use of the information to criminally investigate or prosecute any alcohol or drug abuse patient.[facility]In the event this information is protected by the Federal Confidentiality of Alcohol and Drug Abuse Patient Records regulations: The Federal rules restrict any use of the information to criminally investigate or prosecute any alcohol or drug abuse patient.[facility]In the event this information is protected by the Federal Confidentiality of Alcohol and Drug Abuse Patient Records regulations: The Federal rules restrict any use of the information to criminally investigate or prosecute any alcohol or drug abuse patient.[facility]In the event this information is protected by the Federal Confidentiality of Alcohol and Drug Abuse Patient Records regulations: The Federal rules restrict any use of the information to criminally investigate or prosecute any alcohol or drug abuse patient.[facility] HospitalIn the event this information is protected by the Federal Confidentiality of Alcohol and Drug Abuse Patient Records regulations: The Federal rules restrict any use of the information to criminally investigate or prosecute any alcohol or drug abuse patient.[facility]In the event this information is protected by the Federal Confidentiality of Alcohol and Drug Abuse Patient Records regulations: The Federal rules restrict any use of the information to criminally investigate or prosecute any alcohol or drug abuse patient.[facility]In the event this information is protected by the Federal Confidentiality of Alcohol and Drug Abuse Patient Records regulations: The Federal rules restrict any use of the information to criminally investigate or prosecute any alcohol or drug abuse patient.[facility]In the event this information is protected by the Federal Confidentiality of Alcohol and Drug Abuse Patient Records regulations: The Federal rules restrict any use of the information to criminally investigate or prosecute any alcohol or drug abuse patient.[facility]In the event this information is protected by the Federal Confidentiality of Alcohol and Drug Abuse Patient Records regulations: The Federal rules restrict any use of the information to criminally investigate or prosecute any alcohol or drug abuse patient.[facility]In the event this information is protected by the Federal Confidentiality of Alcohol and Drug Abuse Patient Records regulations: The Federal rules restrict any use of the information to criminally investigate or prosecute any alcohol or drug abuse patient.[facility]In the event this information is protected by the Federal Confidentiality of Alcohol and Drug Abuse Patient Records regulations: The Federal rules restrict any use of the information to criminally investigate or prosecute any alcohol or drug abuse patient.[facility]In the event this information is protected by the Federal Confidentiality of Alcohol and Drug Abuse Patient Records regulations: The Federal rules restrict any use of the information to criminally investigate or prosecute any alcohol or drug abuse patient.[facility]In the event this information is protected by the Federal Confidentiality of Alcohol and Drug Abuse Patient Records regulations: The Federal rules restrict any use of the information to criminally investigate or prosecute any alcohol or drug abuse patient.[facility]In the event this information is protected by the Federal Confidentiality of Alcohol and Drug Abuse Patient Records regulations: The Federal rules restrict any use of the information to criminally investigate or prosecute any alcohol or drug abuse patient.[facility]In the event this information is protected by the Federal Confidentiality of Alcohol and Drug Abuse Patient Records regulations: The Federal rules restrict any use of the information to criminally investigate or prosecute any alcohol or drug abuse patient.[facility]In the event this information is protected by the Federal Confidentiality of Alcohol and Drug Abuse Patient Records regulations: The Federal rules restrict any use of the information to criminally investigate or prosecute any alcohol or drug abuse patient.[facility]In the event this information is protected by the Federal Confidentiality of Alcohol and Drug Abuse Patient Records regulations: The Federal rules restrict any use of the information to criminally investigate or prosecute any alcohol or drug abuse patient.[facility]In the event this information is protected by the Federal Confidentiality of Alcohol and Drug Abuse Patient Records regulations: The Federal rules restrict any use of the information to criminally investigate or prosecute any alcohol or drug abuse patient.[facility]In the event this information is protected by the Federal Confidentiality of Alcohol and Drug Abuse Patient Records regulations: The Federal rules restrict any use of the information to criminally investigate or prosecute any alcohol or drug abuse patient.[facility]In the event this information is protected by the Federal Confidentiality of Alcohol and Drug Abuse Patient Records regulations: The Federal rules restrict any use of the information to criminally investigate or prosecute any alcohol or drug abuse patient.[facility]In the event this information is protected by the Federal Confidentiality of Alcohol and Drug Abuse Patient Records regulations: The Federal rules restrict any use of the information to criminally investigate or prosecute any alcohol or drug abuse patient.[facility]In the event this information is protected by the Federal Confidentiality of Alcohol and Drug Abuse Patient Records regulations: The Federal rules restrict any use of the information to criminally investigate or prosecute any alcohol or drug abuse patient.[facility]In the event this information is protected by the Federal Confidentiality of Alcohol and Drug Abuse Patient Records regulations: The Federal rules restrict any use of the information to criminally investigate or prosecute any alcohol or drug abuse patient.[facility]In the event this information is protected by the Federal Confidentiality of Alcohol and Drug Abuse Patient Records regulations: The Federal rules restrict any use of the information to criminally investigate or prosecute any alcohol or drug abuse patient.[facility]In the event this information is protected by the Federal Confidentiality of Alcohol and Drug Abuse Patient Records regulations: The Federal rules restrict any use of the information to criminally investigate or prosecute any alcohol or drug abuse patient.[facility]In the event this information is protected by the Federal Confidentiality of Alcohol and Drug Abuse Patient Records regulations: The Federal rules restrict any use of the information to criminally investigate or prosecute any alcohol or drug abuse patient.[facility]In the event this information is protected by the Federal Confidentiality of Alcohol and Drug Abuse Patient Records regulations: The Federal rules restrict any use of the information to criminally investigate or prosecute any alcohol or drug abuse patient.[facility]In the event this information is protected by the Federal Confidentiality of Alcohol and Drug Abuse Patient Records regulations: The Federal rules restrict any use of the information to criminally investigate or prosecute any alcohol or drug abuse patient.[facility]In the event this information is protected by the Federal Confidentiality of Alcohol and Drug Abuse Patient Records regulations: The Federal rules restrict any use of the information to criminally investigate or prosecute any alcohol or drug abuse patient.[facility]In the event this information is protected by the Federal Confidentiality of Alcohol and Drug Abuse Patient Records regulations: The Federal rules restrict any use of the information to criminally investigate or prosecute any alcohol or drug abuse patient.[facility]In the event this information is protected by the Federal Confidentiality of Alcohol and Drug Abuse Patient Records regulations: The Federal rules restrict any use of the information to criminally investigate or prosecute any alcohol or drug abuse patient.[facility]In the event this information is protected by the Federal Confidentiality of Alcohol and Drug Abuse Patient Records regulations: The Federal rules restrict any use of the information to criminally investigate or prosecute any alcohol or drug abuse patient.[facility]In the event this information is protected by the Federal Confidentiality of Alcohol and Drug Abuse Patient Records regulations: The Federal rules restrict any use of the information to criminally investigate or prosecute any alcohol or drug abuse patient.[facility]In the event this information is protected by the Federal Confidentiality of Alcohol and Drug Abuse Patient Records regulations: The Federal rules restrict any use of the information to criminally investigate or prosecute any alcohol or drug abuse patient.[facility]In the event this information is protected by the Federal Confidentiality of Alcohol and Drug Abuse Patient Records regulations: The Federal rules restrict any use of the information to criminally investigate or prosecute any alcohol or drug abuse patient.[facility] Reason for Visit (unrecogniz ed section and content) Reason Comments PT Progress Note Specialty Diagnoses / Procedures Referred By Contac t Referred To Contact [facility] Diagnoses Unsteady gait when walking Lymphedema of both lower extremities Procedures CONSULT TO PHYSICAL THERAPY PHYSICAL THERAPY EVALUATION HIGH COMPLEX 45 MINS Chhaya Stacy MD [address] [place] [id number] [facility] [address] [address] Referral ID Status Reason Start Date Expiration Date Visits Requested Visits Authorized [id number] Authorized Auto-Generat ed Referral 05/15/2023 07/25/2023 10 10 Reason Comments Physical Therapy PT Re-eval Reason Comments Physical Therapy Specialty Diagnoses / Procedures Referred By Contac t Referred To Contact [facility] Diagnoses Lymphedema of both lower extremities Procedures PT REHAB FOLLOW UP ORDER THERAPEUTIC EXERCISES RE, EA 15 MIN. Prerna [facility]s [facility] [address] [address] Referral ID Status Reason Start Date Expiration Date Visits Requested Visits Authorized [id number] Authorized PCP Requested Referral Auto-Generate d Referral 12/04/2022 03/05/2023 4 4 Specialty Diagnoses / Procedures Referred By Contac t Referred To Contact Physical Therapy / PHYSICAL THERAPY Diagnoses I89.0 (ICD-10-CM) - Lymphedema of both lower extremities Procedures EST RS PT LYMPHEDEMA Jaquan Sanchez MD [address] [place] [address] Pre[facility]na [facility]s PT Referral ID Status Reason Start Date Expiration Date V isits Requested Visits Authorized [id number] Authorized 06/20/2022 08/24/2022 8 8 Referral ID Status Reason Start Date Expiration Date Visits Requested Visits Authorized [id number] Authorized PCP Requested Referral Auto-Generate d Referral 03/21/2022 06/21/2022 12 12 Specialty Diagnoses / Procedures Referred By Contac t Referred To Contact Physical Therapy / PHYSICAL THERAPY Diagnoses Lymphedema [I89.0] Procedures EST RS PT LYMPHEDEMA Self Prerna Bonds, PT Referral ID Status Reason Start Date Expiration Date Visits Re quested Visits Authorized [id number] Closed 09/04/2021 08/25/2022 1 1 Specialty Diagnoses / Procedures Referred By Contac t Referred To Contact Physical Therapy / PHYSICAL THERAPY Diagnoses Lymphedema [I89.0] Procedures EST RS PT LYMPHEDEMA Self Prerna Bonds, PT [address] [place] [address] Reason Comments Follow Up Specialty Diagnoses / [...] Expiration Date V isits Requested Visits Authorized [id number] Closed PCP Requested Referral Auto-Generated Referral 03/21/2022 06/21/2022 12 12 Specialty Diagnoses / Procedures Referred By Contac t Referred To Contact PHYSICAL THERAPY Diagnoses I89.0 (ICD-10-CM) - Lymphedema of both lower extremities Procedures I89.0 (ICD-10-CM) - Lymphedema of both lower extremities Jaquan Sanchez MD [address] [place] [address] Pt [facility] [address] [place] [address] Referral ID Status Reason Start Date Expiration Date V isits Requested Visits Authorized [id number] Outside PCP 08/10/2022 11/08/2022 1 1 Reason Comments Swelling Established Patient Follow Up Pain Referral ID Status Reason Start Date Expiration Date V isits Requested Visits Authorized [id number] Authorized 09/10/2022 12/23/2022 12 12 Reason Comments Results Reason Comments Physical Therapy Specialty Diagnoses / Procedures Referred By Contac t Referred To Contact PHYSICAL THERAPY Diagnoses I89.0 (ICD-10-CM) - Lymphedema of both lower extremities Procedures I89.0 (ICD-10-CM) - Lymphedema of both lower extremities Jaquan Sanchez MD [address] [place] [address] Pt [facility] [address] [place] [address] Reason Onset Date Comments Referral Information 12/06/2022 [...] Expiration Date V isits Requested Visits Authorized [id number] Authorized 01/25/2023 05/14/2023 16 16 Referral ID Status Reason Start Date Expiration Date V isits Requested Visits Authorized [id number] Closed PCP Requested Referral Auto-Generated Referral 12/04/2022 [...] Procedures: 9032 - CONSULT TO PHYSICAL THERAPY 54402 (CPT ) - PHYSICAL THERAPY EVALUATION HIGH COMPLEX 45 MINS Start: May 15, 2023 Procedures R26.81 (ICD-10-CM) - Unsteady gait when walking I89.0 (ICD-10-CM) - Lymphedema of both lower extremities Procedures: 9032 - CONSULT TO PHYSICAL THERAPY 82603 (CPT ) - PHYSICAL THERAPY EVALUATION HIGH COMPLEX 45 MINS Start: May 15, 2023 Chhaya Stacy MD [address] [place] [address] Prerna Bonds, PT Referral ID Status Reason Start Date Expiration Date V isits Requested Visits Authorized [id number] Authorized 06/27/2023 08/25/2023 16 16 Specialty Diagnoses / Procedures Referred By Contac t Referred To Contact [facility] Diagnoses Lymphedema of both lower extremities Procedures PT REHAB FOLLOW UP ORDER THERAPEUTIC EXERCISES RE, EA 15 MIN. Chhaya Stacy MD [address] [place] [address] [facility] [place] [address] [place] [address] Referral ID Status Reason Start Date Expiration Date Visits Requested Visits Authorized [id number] Authorized PCP Requested Referral Auto-Generate d Referral 09/27/2023 10/26/2023 4 4 Specialty Diagnoses / Procedures Referred By Celestino t Referred To Contact PHYSICAL THERAPY Diagnoses Lymphedema, not elsewhere classified I89.0 (ICD-10-CM) - Lymphedema of both lower extremities Procedures I89.0 (ICD-10-CM) - Lymphedema of both lower extremities Chhaya Stacy MD [address] [place] [address] [facility] [address] [facility] [place] [address] Referral ID Status Reason Start Date Expiration Date V isits Requested Visits Authorized [id number] Authorized 10/28/2023 01/28/2024 8 8 Reason Comments Established Patient Debridement of Nail Specialty Diagnoses / Procedures Referred By Contac t Referred To Contact PHYSICAL THERAPY Diagnoses Lymphedema, not elsewhere classified I89.0 (ICD-10-CM) - Lymphedema of both lower extremities Procedures I89.0 (ICD-10-CM) - Lymphedema of both lower extremities Chhaya Stacy MD [address] [place] [address] Pt [facility] [address] [facility] [place] [address] Referral ID Status Reason Start Date Expiration Date Visits Re quested Visits Authorized [id number] Closed 10/28/2023 01/28/2024 8 8 Referral ID Status Reason Start Date Expiration Date Visits Requested Visits Authorized [id number] Authorized PCP Requested Referral Auto-Generate d Referral 01/22/2024 04/26/2024 4 4 Specialty Diagnoses / Procedures Referred By Contac t Referred To Contact Physical Therapy / PHYSICAL THERAPY Diagnoses Lymphedema of both lower extremities Procedures PT REHAB FOLLOW UP ORDER THERAPEUTIC EXERCISES RE, EA 15 MIN. Chhaya Stacy MD [address] [place] [address] Prerna [facility]s PT Referral ID Status Reason Start Date Expiration Date V isits Requested Visits Authorized [id number] Closed PCP Requested Referral Auto-Generated Referral 01/22/2024 04/26/2024 4 4 Specialty Diagnoses / Procedures Referred By Contac t Referred To Contact Physical Therapy / PHYSICAL THERAPY Diagnoses Lymphedema, not elsewhere classified Procedures THERAPEUTIC EXERCISES RE, EA 15 MIN. Chhaya Stacy MD [address] [place] [address] Prer[facility]s PT Referral ID Status Reason Start Date Expiration Date V isits Requested Visits Authorized [id number] Authorized 03/12/2024 06/26/2024 20 20 Reason Comments Returning Patient's Call Returned pt's v [employer] message requesting more PT visits and concern that her legs/feet are more swollen. Therapist reviewed the appts that were already scheduled with pt and offered an appt for Sat. 06/15 that became available today d/t can. Pt first stated she could only keep Saturday's visit (06/19) because her fork truck driver can only take her on Fridays. Later, she said she would call her fork truck driver to see if she could bring her on Saturday and would let us know. Reviewed HEP with pt & instructed to do 2x/day Specialty Diagnoses / Procedures Referred By Contac t Referred To Contact PHYSICAL THERAPY Diagnoses 89.0 (ICD-10-CM) - Lymphedema, not elsewhere classified Procedures 89.0 (ICD-10-CM) - Lymphedema, not elsewhere classified Chhaya Stacy MD [address] [place] [address] Pt [facility] [address] [place] [address] Referral ID Status Reason Start Date Expiration Date V isits Requested Visits Authorized [id number] Authorized 07/07/2024 09/25/2024 20 20 Specialty Diagnoses / Procedures Referred By Contac t Referred To Contact PHYSICAL THERAPY Diagnoses 89.0 (ICD-10-CM) - Lymphedema, not elsewhere classified Procedures 89.0 (ICD-10-CM) - Lymphedema, not elsewhere classified Chhaya Stacy MD [address] [place] [address] Pt [facility] [address] [place] [address] Specialty Diagnoses / Procedures Referred By Contac t Referred To Contact [facility] Diagnoses Lymphedema of both lower extremities Procedures PT REHAB FOLLOW UP ORDER THERAPEUTIC EXERCISES RE, EA 15 MIN. Tyler Benitez MD [address] [place] [address] Phone: tel: fax: [facility] [address] [place] [address] Referral ID Status Reason Start Date Expiration Date Visits Requested Visits Authorized [id number] Authorized PCP Requested Referral Auto-Generate d Referral [...] spoke with nurse in [facility] who consulted physician on staff and [...] of both lower extremities Procedures EST PT/OT [facility] Tyler Benitez MD [address] [place] [address] Phone: tel: fax: Ana Rosa Ricketts, PT [address] [place] [address] Phone: tel: Referral ID Status Reason Start Date Expiration Date V isits Requested Visits Authorized [id number] Authorized 03/17/2025 06/17/2025 15 15 Care Teams (unrecognized sec tion and content) Blister Pack Operator Relationship Specialty Start Date End Date Tyler Benitez MD [address] [place] [address] PCP - General Family Practice 06/06/20 Geo Rivera MD [address] [place] [address] Referring Orthotics & Prosthetics 07/11/20 Blister Pack Operator Relationship Specialty Start Date End Date Tyler Benitez MD [address] [place] [address] PCP - General Family Practice 06/06/20 Geo Rivera MD [address] [place] [address] Referring Orthotics & Prosthetics 07/11/20 Blister Pack Operator Relationship Specialty Start Date End Date Tyler Benitez MD [address] [place] [address] PCP - General Family Practice 06/06/20 Geo Rivera MD [address] [place] [address] Referring Orthotics & Prosthetics 07/11/20 Blister Pack Operator Relationship Specialty Start Date End Date Tyler Benitez MD [address] [place] [address] PCP - General Family Practice 06/06/20 Geo Rivera MD [address] [place] [phone] Referring Orthotics & Prosthetics 07/11/20 Blister Pack Operator Relationship Specialty Start Date End Date Tyler Benitez MD [address] [place] [address] PCP - General Family Practice 06/06/20 Geo Rivera MD [address] [place] [phone] Referring Orthotics & Prosthetics 07/11/20 Blister Pack Operator Relationship Specialty Start Date End Date Tyler Benitez MD [address] [place] [address] PCP - General Family Practice 06/06/20 Geo Rivera MD [address] [place] [address] Referring Orthotics & Prosthetics 07/11/20 Blister Pack Operator Relationship Specialty Start Date End Date Tyler Benitez MD [address] [place] [address] PCP - General Family Practice 06/06/20 Geo Rivera MD [address] [place] [address] Referring Orthotics & Prosthetics 07/11/20 Blister Pack Operator Relationship Specialty Start Date End Date Tyler Benitez MD [address] [place] [address] PCP - General Family Practice 06/06/20 Geo Rivera MD [address] [place] [phone] Referring Orthotics & Prosthetics 07/11/20 Blister Pack Operator Relationship Specialty Start Date End Date Tyler Benitez MD [address] [place] [address] PCP - General Family Medicine 06/06/20 Geo Rivera MD [address] [place] [address] Referring Orthotics & Prosthetics 07/11/20 Blister Pack Operator Relationship Specialty Start Date End Date Tyler Benitez MD [address] [place] [address] PCP - General Family Medicine 06/06/20 Geo Rivera MD [address] [place] [address] Referring Orthotics & Prosthetics 07/11/20 Blister Pack Operator Relationship Specialty Start Date End Date Tyler Benitez MD [address] [place] [address] PCP - General Family Medicine 06/06/20 Geo Rivera MD [address] [place] [address] Referring Orthotics & Prosthetics 07/11/20 Blister Pack Operator Relationship Specialty Start Date End Date Tyler Benitez MD [address] [place] [address] PCP - General Family Medicine 06/06/20 Geo Rivera MD [address] [place] [address] Referring Orthotics & Prosthetics 07/11/20 Blister Pack Operator Relationship Specialty Start Date End Date Tyler Benitez MD [address] [place] [address] PCP - General Family Medicine 06/06/20 Geo Rivera MD [address] [place] [address] Referring Orthotics & Prosthetics 07/11/20 Blister Pack Operator Relationship Specialty Start Date End Date Tyler Benitez MD [address] [place] [address] PCP - General Family Medicine 06/06/20 Geo Rivera MD [address] [place] [address] Referring Orthotics & Prosthetics 07/11/20 Blister Pack Operator Relationship Specialty Start Date End Date Tyler Benitez MD [address] [place] [address] PCP - General Family Medicine 06/06/20 Geo Rivera MD [address] [place] [address] Referring Orthotics & Prosthetics 07/11/20 Blister Pack Operator Relationship Specialty Start Date End Date Tyler Benitez MD [address] [place] [address] PCP - General Family Medicine 06/06/20 Geo Rivera MD [address] [place] [address] Referring Orthotics & Prosthetics 07/11/20 Blister Pack Operator Relationship Specialty Start Date End Date Tyler Benitez MD [address] [place], [place] [address] PCP - General Family Medicine 06/06/20 Geo Rivera MD [address] [place] [phone] Referring Orthotics & Prosthetics 07/11/20 Blister Pack Operator Relationship Specialty Start Date End Date Tyler Benitez MD [address] [place], [place] [id number] PCP - General Family Medicine 06/06/20 Geo Rivera MD [address] [place] [phone] Referring Orthotics & Prosthetics 07/11/20 Team Status: Active Member Role Status Dates Dr. Tyler Benitez MD Family Provider Active Dr. Tyler Benitez MD Primary Care Provider Active Team Status: Inactive Member Role Status Dates Dr. Tyler Benitez MD Primary Care Provide r, Attending Provider, Referring Provider Active Blister Pack Operator Relationship Specialty Start Date End Date Tyler Benitez MD [address] [place] [address] PCP - General Family Medicine 06/06/20 Geo Rivera MD [address] [place] [phone] Referring Orthotics & Prosthetics 07/11/20 Team Status: Inactive Member Role Status Dates Dr. Tyler Benitez MD Primary Care Provider, Referring P murphy Active Jaquan Yarbrough [employer]ITIONS MANAGER, [employer]ITIONS MANAGER-C Attending Provider Active Blister Pack Operator Relationship Specialty Start Date End Date Tyler Benitez MD [address] [place] [address] PCP - General Family Medicine 06/06/20 Geo Rivera MD [address] [place] [address] Referring Orthotics & Prosthetics 07/11/20 Blister Pack Operator Relationship Specialty Start Date End Date Tyler Benitez MD [address] [place] [address] PCP - General Family Medicine 06/06/20 Geo Rivera MD [address] [place] [address] Referring Orthotics & Prosthetics 07/11/20 Blister Pack Operator Relationship Specialty Start Date End Date Tyler Benitez MD [address] [place] [address] PCP - General Family Medicine 06/06/20 Geo Rivera MD [address] [place] [address] Referring Orthotics & Prosthetics 07/11/20 Blister Pack Operator Relationship Specialty Start Date End Date Tyler Benitez MD [address] [place] [address] PCP - General Family Medicine 06/06/20 Geo Rivera MD [address] [place] [address] Referring Orthotics & Prosthetics 07/11/20 Blister Pack Operator Relationship Specialty Start Date End Date Tyler Benitez MD [address] [place] [address] PCP - General Family Medicine 06/06/20 Geo Rivera MD [address] [place] [address] Referring Orthotics & Prosthetics 07/11/20 Blister Pack Operator Relationship Specialty Start Date End Date Tyler Benitez MD [address] [place] [address] PCP - General Family Medicine 06/06/20 Geo Rivera MD [address] [place], [place] [address] Referring Orthotics & Prosthetics 07/11/20 Blister Pack Operator Relationship Specialty Start Date End Date Tyler Benitez MD [address] [place] [address] PCP - General Family Medicine 06/06/20 Geo Rivera MD [address] [place] [address] Referring Orthotics & Prosthetics 07/11/20 Blister Pack Operator Relationship Specialty Start Date End Date Tyler Benitez MD [address] [place] [address] PCP - General Family Medicine 06/06/20 Geo Rivera MD [address] [place] [address] Referring Orthotics & Prosthetics 07/11/20 Blister Pack Operator Relationship Specialty Start Date End Date Tyler Benitez MD [address] [place] [address] PCP - General Family Medicine 06/06/20 Geo Rivera MD [address] [place] [address] Referring Orthotics & Prosthetics 07/11/20 Blister Pack Operator Relationship Specialty Start Date End Date Tyler Benitez MD [address] [place] [address] PCP - General Family Medicine 06/06/20 Geo Rivera MD [address] [facility] [address] Referring Orthotics & Prosthetics 07/11/20 Blister Pack Operator Relationship Specialty Start Date End Date Tyler Benitez MD [address] [facility] [place] [address] PCP - General Family Medicine 06/06/20 Geo Rivera MD [address] [facility] [place] [address] Referring Orthotics & Prosthetics 07/11/20 Team Status: [...] Dr. Armand Bob MD Attending Provider Active Blister Pack Operator Relationship Specialty Start Date End Date Tyler Benitez MD [address] [place], [place] [address] PCP - General Family Medicine 06/06/20 Geo Rivera MD [address] [place], [place] [address] Referring Orthotics & Prosthetics 07/11/20 Blister Pack Operator Relationship Specialty Start Date End Date Tyler Benitez MD [address] [place], [place] [address] PCP - General Family Medicine 06/06/20 Geo Rivera MD [address] [place], [place] [address] Referring Orthotics & Prosthetics 07/11/20 Blister Pack Operator Relationship Specialty Start Date End Date Tyler Benitez MD [address] [place], [place] [address] PCP - General Family Medicine 06/06/20 Geo Rivera MD [address] [place], [place] [address] Referring Orthotics & Prosthetics 07/11/20 Team Status: Active Member Role Status Dates Dr. Tyler Benitez MD Primary Care Provider Active Dr. Mir Brumfield MD Attending Provider Active Dr. Mariusz Waters MD Referring Provider Active Team Status: Inactive Member Role Status Dates Dr. Tyler Benitez MD Primary Care Provider Active Dr. Sage Augustin MD Emergency Provider Active Blister Pack Operator Relationship Specialty Start Date End Date Tyler Benitez MD [address] [place], [place] [address] PCP - General Family Medicine 06/06/20 Geo Rivera MD [address] [place], [place] [address] Referring Orthotics & Prosthetics 07/11/20 Team Status: Inactive Member Role Status Dates Dr. Tyler Benitez MD Primary Care Provider Active Dr. Sage Augustin MD Attending Provider, Emergency Provider Active Team Status: Inactive Member Role Status Dates Dr. Tyler Benitez MD Primary Care Provider, Attending Francis arrington Active Blister Pack Operator Relationship Specialty Start Date End Date Tyler Benitez MD [address] [place], [place] [address] PCP - General Family Medicine 06/06/20 Geo Rivera MD [address] [place] [address] Referring Orthotics & Prosthetics 07/11/20 Blister Pack Operator Relationship Specialty Start Date End Date Tyler Benitez MD [address] [place] [address] PCP - General Family Medicine 06/06/20 Geo Rivera MD [address] [place] [address] Referring Orthotics & Prosthetics 07/11/20 Blister Pack Operator Relationship Specialty Start Date End Date Tyler Benitez MD [address] [place] [address] PCP - General Family Medicine 06/06/20 Geo Rivera MD [address] [place] [address] Referring Orthotics & Prosthetics 07/11/20 Blister Pack Operator Relationship Specialty Start Date End Date Tyler Benitez MD [address] [place] [address] PCP - General Family Medicine 06/06/20 Geo Rivera MD [address] [place] [address] Referring Orthotics & Prosthetics 07/11/20 Blister Pack Operator Relationship Specialty Start Date End Date Tyler Benitez MD [address] [place] [address] PCP - General Family Medicine 06/06/20 Geo Rivera MD [address] [place] [address] Referring Orthotics & Prosthetics 07/11/20 Blister Pack Operator Relationship Specialty Start Date End Date Tyler Benitez MD [address] [place] [address] PCP - General Family Medicine 06/06/20 Geo Rivera MD [address] [place] [address] Referring Orthotics & Prosthetics 07/11/20 Blister Pack Operator Relationship Specialty Start Date End Date Tyler Benitez MD [address] [place] [address] PCP - General Family Medicine 06/06/20 Geo Rivera MD [address] [place] [address] Referring Orthotics & Prosthetics 07/11/20 Team Status: Inactive Member Role Status Dates Dr. Tyler Benitez MD Primary Care Provider, Referring P murphy Active Jimbo ALEXANDER, [place] Attending Provider Active Blister Pack Operator Relationship Specialty Start Date End Date Tyler Benitez MD [address] [place] [address] PCP - General Family Medicine 06/06/20 Geo Rivera MD [address] [place] [address] Referring Orthotics & Prosthetics 07/11/20 Blister Pack Operator Relationship Specialty Start Date End Date Tyler Benitez MD [address] [place] [address] PCP - General Family Medicine 06/06/20 Geo Rivera MD [address] [place] [address] Referring Orthotics & Prosthetics 07/11/20 Blister Pack Operator Relationship Specialty Start Date End Date Tyler Benitez MD [address] [place], [place] [address]41 PCP - General Family Medicine 06/06/20 Geo Rivera MD [address] [place], [place] [address]31 Referring Orthotics & Prosthetics 07/11/20 Blister Pack Operator Relationship Specialty Start Date End Date Tyler Benitez MD [address] [place], [place] [address] PCP - General Family Medicine 06/06/20 Geo Rivera MD [address] [place], [place] [address] Referring Orthotics & Prosthetics 07/11/20 Blister Pack Operator Relationship Specialty Start Date End Date Tyler Benitez MD [address] [place], [place] [address] PCP - General Family Medicine 06/06/20 Geo Rivera MD [address] [place], [place] [address] Referring Orthotics & Prosthetics 07/11/20 Team Status: [...] March 02, 2025 End: March 02, 2025 Blister Pack Operator Relationship Specialty Start Date End Date Tyler Benitez MD [address] [place] [address] PCP - General Family Medicine 06/06/20 Geo Rivera MD [address] [place] [address] Referring Orthotics & Prosthetics 07/11/20 Team Status: [...] March 12, 2025 End: March 12, 2025 Blister Pack Operator Relationship Specialty Start Date End Date Tyler Benitez MD [address] [place], [place] [address] PCP - General Family Medicine 06/06/20 Geo Rivera MD [address] [place] [address] Referring Orthotics & Prosthetics 07/11/20 Team Status: [...] BE BASED ON THE PRIMARY CLINICAL RECORDS. [facility] [employer] [facility]. provides no warranty or guarantee of the accuracy or completeness of information in this document.
--- OUTSIDE RECORDS SUMMARY | 2025-06-16 23:38 | XMS RPT_ITS | CCD ---
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 [place], [address] GAP 10 Normal 5-15 [facility] Comment on above: Order Comment: Order Date: 03/02/25Order Info: 07-1 - CMPOrder Info: 6-3 - TSH Performed By: #### L 500.4050, L100.0100, L501.9520 ####[facility] [address] [place], [address] GFR/1.73 sq M.predicted among non-blacks MDRD (S/P/Bld) [Vol rate/Area] 28 mL/min/{1.73_m2} Low >60 [facility] Comment on above: Order Comment: Order Date: 03/02/25Order Info: 0786-1 - CMPOrder Info: 3015-3 - TSH Result Comment: mL/m in/1.73m2 CKD-EPI Creatinine Equation (2020) Performed By: #### L 500.4050, L100.0100, L501.9520 ####[facility] [address] [place], [address] Globulin (S) [Mass/Vol] 3.7 g/dL Normal 2.2-4.[address] [facility] Comment on above: Order Comment: Order Date: 03/02/25Order Info: 0786- - CMPOrder Info: 3015-10 - TSH Performed By: #### L 500.4050, L100.0100, L501.9520 ####[facility] [address] [place], [address] Glucose [Mass/Vol] 84 mg/dL Normal 70-99 [facility] Comment on above: Order Comment: Order Date: 03/02/25Order Info: 0786-1 - CMPOrder Info: 3 - TSH Performed By: #### L 500.4050, L100.0100, L501.9520 ####[facility] [address] [place], [address] Potassium [Moles/Vol] 4.4 mmol/L Normal 3.3-5.1 [facility] Comment on above: Order Comment: Order Date: 03/02/25Order Info: 0786-1 - CMPOrder Info: 3 - TSH Performed By: #### L 500.4050, L100.0100, L501.9520 ####[facility] [address] [place], [address] Sodium [Moles/Vol] 140 mmol/L Normal 133-145 [facility] Comment on above: Order Comment: Order Date: 03/02/25Order Info: 0786-1 - CMPOrder Info: 3016-3 - TSH Performed By: #### L 500.4050, L100.0100, L501.9520 ####[facility] [address] [place], [address] T PROT 7.4 g/dL Normal 5.9-8.4 [facility] Comment on above: Order Comment: Order Date: 03/02/25Order Info: 0786-1 - CMPOrder Info: 3016-3 - TSH Performed By: #### L 500.4050, L100.0100, L501.9520 ####[facility] [address] [place], [address] Urea nitrogen [Mass/Vol] 38 mg/dL High 4-19 [facility] Comment on above: Order Comment: Order Date: 03/02/25Order Info: 0786-1 - CMPOrder Info: 3016-3 - TSH Performed By: #### L 500.4050, L100.0100, L501.9520 ####[facility] [address] [place], [address] Eosinophil percentageOrdered By: Tyler Benitez on 03-11-2025 Eosinophils/100 WBC (Bld) 1.7 % 0-5 [facility] Erythrocyte distribution wid th ratioOrdered By: Tyler Benitez on 03-11-2025 Erythrocyte distribution width (RBC) [Ratio] 13.8 % 11.6-14.6 [facility] Erythrocyte distribution wid th standard deviationOrdered By: Tyler Benitez on 03-11-2025 Erythrocyte distribution width (RBC) [Ratio] 45.3 fl High 35.1-43.9 [facility] Glomerular filtration rate ( GFR) estimation/1.73 sq m using serum, plasma, or whole bOrdered By: Tyler Benitez on 03-11-2025 GFR/1.73 sq M.predicted among non-blacks MDRD (S/P/Bld) [Vol rate/Area] 28 mL/min/{1.73_m2} Low >60 [facility] Comment on above: mL/min/1.73m2 CKD-EP I Creatinine Equation (2020) Hematocrit Auto (Bld) [Volum e fraction]Ordered By: Tyler Benitez on 03-11-2025 Hematocrit (Bld) [Volume fraction] 37.3 % 37-47 [facility] Hemoglobin measurementOrdere d By: Tyler Benitez on 03-11-2025 Hemoglobin (Bld) [Mass/Vol] 11.7 g/dL Low 12.0-15.0 [facility] Immature granulocytes/100 WB C Auto (Bld)Ordered By: Tyler Benitez on 03-11-2025 Immature granulocytes/100 WBC (Bld) 0.300 % 0.0-0.9 [facility] Comment on above: IG% - Immature Granu locytes (promyelocytes, myelocytes and metamyelocytes) > 1% indicates that a LEFT SHIFT is Present. L503.7505on 03-11-2025 Natriuretic peptide B (Bld) [Mass/Vol] 1089 pg/mL Normal <=1800 [facility] Comment on above: Order Comment: Order Date: 03/02/25 Order Info: 0786-1 - CMP Order Info: 3016-3 - TSH Result Comment: Hear t Failure Unlikely: < 300 pg/mL Heart Failure Likely < 50 Years: > 450 pg/mL 50-75 Years: > 900 pg/mL >75 Years: > 1800 pg/mL Performed By: #### L 503.7505 #### [facility] Laboratory [address] [place] [address], [id number] Laboratory - Chemistry and C hemistry - challengeOrdered By: Tyler Benitez on 03-11-2025 AST [Catalytic activity/Vol] 20 U/L <32 [facility] MCV (mean corpuscular volume ) determinationOrdered By: Tyler Benitez on 03-11-2025 MCV (RBC) [Entitic vol] 90.1 fL 81-99 [facility] Mean corpuscular hemoglobin (MCH) determinationOrdered By: Tyler Benitez on 03-11-2025 MCH (RBC) [Entitic mass] 28.3 pg 27.0-32.0 [facility] Mean corpuscular hemoglobin concentration (MCHC) determinationOrdered By: Tyler Benitez on 03-11-2025 MCHC (RBC) [Mass/Vol] 31.4 g/dL Low 32-36 [facility] Mean platelet volume determi nationOrdered By: Tyler Benitez on 03-11-2025 Platelet mean volume (Bld) [Entitic vol] 10.4 fL 6.2-12.0 [facility] Monocyte percentageOrdered B y: Tyler Benitez on 03-11-2025 Monocytes/100 WBC (Bld) 9.1 % 0-10 [facility] Natriuretic peptide.B prohor nathan N-Terminal [Mass/volume] in Serum or PlasmaOrdered By: Tyler Benitez on 03-11-2025 Natriuretic peptide.B prohormone N-Terminal [Mass/Vol] 1089 pg/mL <1800 [facility] Comment on above: Heart Failure Unlike ly: < 300 pg/mLHeart Failure Likely< 50 Years: > 450 pg/mL50-75 Years: > 900 pg/mL>75 Years: > 1800 pg/mL Neutrophil percentageOrdered By: Tyler Benitez on 03-11-2025 Neutrophils/100 WBC (Bld) 72.9 % High 47-70 [facility] Nucleated red blood cell per centageOrdered By: Tyler Benitez on 03-11-2025 Nucleated RBC/100 WBC (Bld) [Ratio] 0 % 0-5 [facility] Platelet countOrdered By: Silvio Benitez on 03-11-2025 Platelets (Bld) [#/Vol] 202 10*3/uL 150-450 [facility] Potassium measurement (mass/ volume)Ordered By: Tyler Benitez on 03-11-2025 Potassium (Unsp spec) [Mass/Vol] 4.4 mmol/L 3.3-5.1 [facility] RBC Auto (Bld) [#/Vol]Ordere d By: Tyler Benitez on 03-11-2025 RBC (Bld) [#/Vol] 4.14 10*6/uL Low 4.2-5.4 [facility] Serum creatinine measurement (mass/volume)Ordered By: Tyler Benitez on 03-11-2025 Creatinine [Mass/Vol] 1.76 mg/dL High 0.70-1.20 [facility] Serum globulin measurementOr dered By: Tyler Benitez on 03-11-2025 Globulin (S) [Mass/Vol] 3.7 g/dL 2.2-4.[address] [facility] Serum glucose measurement (m ass/volume)Ordered By: Tyler Benitez on 03-11-2025 Glucose [Mass/Vol] 84 mg/dL 70-99 [facility] Serum or plasma alanine welch otransferase (ALT) measurementOrdered By: Tyler Benitez on 03-11-2025 ALT [Catalytic activity/Vol] 8 U/L <35 [facility] Serum or plasma albumin lakeisha urement (mass/volume)Ordered By: Tyler Benitez on 03-11-2025 Albumin [Mass/Vol] 3.7 g/dL 3.4-4.8 [facility] Serum or plasma albumin/glob ulin mass ratioOrdered By: Tyler Benitez on 03-11-2025 Albumin/Globulin [Mass ratio] 1.0 {ratio} 0.9-2.4 [facility] Serum or plasma alkaline vania sphatase measurementOrdered By: Tyler Benitez on 03-11-2025 ALP [Catalytic activity/Vol] 91 U/L 35-104 [facility] Serum or plasma calcium lakeisha urement (mass/volume)Ordered By: Tyler Benitez on 03-11-2025 Calcium [Mass/Vol] 9.7 mg/dL 7.6-11.0 [facility] Serum or plasma urea nitroge n measurement (mass/volume)Ordered By: Tyler Benitez on 03-11-2025 Urea nitrogen [Mass/Vol] 38 mg/dL High 4-19 [facility] Sodium levelOrdered By: Tyler Benitez on 03-11-2025 Sodium [Moles/Vol] 140 mmol/L 133-145 [facility] TSH DL <= 0.005 mIU/L QnOrde red By: Tyler Benitez on 03-11-2025 TSH Qn 2.920 uIU/mL 0.300-4.20 0 [facility] Thyroid Stim Hormone (TSH)on 03-11-2025 TSH 2.920 uIU/mL Normal 0.300-4.20 0 [facility] Comment on above: Order Comment: Order Date: 03/02/25Order Info: 0786-1 - CMPOrder Info: 3016-3 - TSH Performed By: #### L 500.4050, L100.0100, L501.9520 ####[facility] [address] [place], [place], [id number] Total proteinOrdered By: Reyna Benitez on 03-11-2025 Protein [Mass/Vol] 7.4 g/dL 5.9-8.4 [facility] White blood cell (WBC) count Ordered By: Tyler Benitez on 03-11-2025 WBC (Bld) [#/Vol] 6.6 10*3/uL 4.4-11.0 [facility] Absolute lymphocyte countOrd ered By: Malaika Yuen on 03-02-2025 Lymphocytes Auto (Unsp spec) [#/Vol] 0.91 10*3/uL 0.83-4.51 [facility] Absolute neutrophil countOrd ered By: Malaika Yuen on 03-02-2025 Neutrophils (Bld) [#/Vol] 3.8 10*3/uL 2.0-7.7 [facility] Anion gap in Serum or Plasma Ordered By: Malaika Yuen on 03-02-2025 Anion gap [Moles/Vol] 12 mmol/L 5-15 [facility] Automated blood erythrocyte countOrdered By: Malaika Yuen on 03-02-2025 RBC (Bld) [#/Vol] 3.80 10*6/uL Low 4.2-5.4 [facility] Comment on above: Performed By: #### L 100.0100, L500.2500, L503.7505 #### [facility] [address] [place], [place], [id number] Automated blood hematocrit ( percentage)Ordered By: Malaika Yuen on 03-02-2025 Hematocrit (Bld) [Volume fraction] 34.3 % Low 37-47 [facility] Comment on above: Performed By: #### L 100.0100, L500.2500, L503.7505 #### [facility] [address] [place], [address] Automated lymphocyte count a s percentage of total leukocytesOrdered By: Malaika Yuen on 03-02-2025 Lymphocytes/100 WBC Auto (Unsp spec) 17.0 % Low 19-41 [facility] BUN/creatinine ratioOrdered By: Malaika Yuen on 03-02-2025 Urea nitrogen/Creatinine [Mass ratio] 26.5 mg/mg High 10-20 [facility] Basic Metabolic Profile (BMP )on 03-02-2025 BUN/CRE 26.5 RATIO High 10-20 [facility] Comment on above: Performed By: #### L 100.0100, L500.2500, L503.7505 #### [facility] [address] [place], [address] ECRCL 27.62 ml/min Low 50-250 [facility] Comment on above: Performed By: #### L 100.0100, L500.2500, L503.7505 #### [facility] [address] [place], [address] GAP 12 Normal 5-15 [facility] Comment on above: Performed By: #### L 100.0100, L500.2500, L503.7505 #### [facility] [address] [place], [address] Potassium [Moles/Vol] 4.8 mmol/L Normal 3.3-5.1 [facility] Comment on above: Performed By: #### L 100.0100, L500.2500, L503.7505 #### [facility] [address] [place], [address] Basophil percentageOrdered B y: Malaika Yuen on 03-02-2025 Basophils/100 WBC (Bld) 0.6 % Normal 0-1 [facility] Comment on above: Performed By: #### L 100.0100, L500.2500, L503.7505 #### [facility] [address] [place], [address] CBC W/Diff, Automatedon 07-0 8-5 Absolute Lymph 0.91 X10 3/uL Normal 0.83-4.51 [facility] Comment on above: Performed By: #### L 100.0100, L500.2500, L503.7505 #### [facility] [address] [place], [address] Absolute Neut 3.8 X10 3/uL Normal 2.0-7.7 [facility] Comment on above: Performed By: #### L 100.0100, L500.2500, L503.7505 #### [facility] [address] [place], [address] IG% 0.400 Normal 0.0-0.9 [facility] Comment on above: Result Comment: IG% - Immature Granulocytes (promyelocytes, myelocytes and metamyelocytes) > 1% indicates that a LEFT SHIFT is Present. Performed By: #### L 100.0100, L500.2500, L503.7505 #### [facility] [address] [place], [address] Lymphocytes/100 WBC (Bld) 17.0 % Low 19-41 [facility] Comment on above: Performed By: #### L 100.0100, L500.2500, L503.7505 #### [facility] [address] [place], [address] Nucleated RBC (Bld) [#/Vol] 0 10*3/uL Normal 0-5 [facility] Comment on above: Performed By: #### L 100.0100, L500.2500, L503.7505 #### [facility] [address] [place], [address] RDW SD 45.3 fl High 35.1-43.9 [facility] Comment on above: Performed By: #### L 100.0100, L500.2500, L503.7505 #### [facility] [address] [place], [address] Carbon dioxide, total [Moles /volume] in Central venous bloodOrdered By: Malaika Yuen on 03-02-2025 CO2 [Moles/Vol] 21.4 mmol/L Normal 21.0-32.0 [facility] Comment on above: Performed By: #### L 100.0100, L500.2500, L503.7505 #### [facility] [address] [place], [address] Chest PA and Lateralon 03-02 Chest PA and Lateral [facility] [address] [place] [address] Chest PA and Lateral MR#: [id number] Acct: [id number] Name: AMBER KOROMA Rep #: [id number] : 1940 F 84 From: Nata Lazo MD PCP: Dr. Tyler Benitez MD Status: [facility] ER Study: Chest PA and Lateral Date of Exam: 03/02/25 Exam# [id number] Ordering Dr: Malaika Yuen DO EXAM: XR Chest, 2 Views CLINICAL INDICATION: SOB TECHNIQUE: Frontal and lateral views of the chest. COMPARISON: No relevant prior studies available. FINDINGS: LUNGS AND PLEURAL SPACES: See below. HEART: Cardiomegaly with mild congestion. MEDIASTINUM: Unremarkable. Normal mediastinal contour. BONES/JOINTS: Unremarkable. No acute fracture. RAD/Chest PA and Lateral IMPRESSION: Cardiomegaly with mild congestion. Reading [facility] CC: Dr. Malaika Yuen DO; Dr. 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, [address] Emergency Department Summary on 03-02-2025 Emergency Department Summary [facility] Medical Records Department [address] [place] [address] Emergency Department Summary 03/02/25 MR#: [id number] Acct: [id number] Name: AMEBR KOROMA Rep #: [id number] : 1940 84 From: Malaika Yuen DO [...] weeks ago which was negative for DVT. 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 Normal [facility] Eosinophil percentageOrdered By: Malaika Yuen on 03-02-2025 Eosinophils/100 WBC (Bld) 2.6 % Normal 0-5 [facility] Comment on above: Performed By: #### L 100.0100, L500.2500, L503.7505 #### [facility] [address] [place], [place], [id number] Erythrocyte distribution wid th ratioOrdered By: Malaika Yuen on 03-02-2025 Erythrocyte distribution width (RBC) [Ratio] 13.8 % Normal 11.6-14.6 [facility] Comment on above: Performed By: #### L 100.0100, L500.2500, L503.7505 #### [facility] [address] [place], [address] Erythrocyte distribution wid th standard deviationOrdered By: Malaika Yuen on 03-02-2025 Erythrocyte distribution width (RBC) [Ratio] 45.3 fl High 35.1-43.9 [facility] Glomerular filtration rate ( GFR) estimation/1.73 sq m using serum, plasma, or whole bOrdered By: Malaika Yuen on 03-02-2025 GFR/1.73 sq M.predicted among non-blacks MDRD (S/P/Bld) [Vol rate/Area] 36 mL/min/{1.73_m2} Low >60 [facility] Comment on above: mL/min/1.73m2 CKD-EP I Creatinine Equation (2020) Result Comment: mL/m in/1.73m2 CKD-EPI Creatinine Equation (2020) Performed By: #### L 100.0100, L500.2500, L503.7505 #### [facility] [address] [place], [place], [id number] Hemoglobin measurementOrdere d By: Malaika Yuen on 03-02-2025 Hemoglobin (Bld) [Mass/Vol] 10.9 g/dL Low 12.0-15.0 [facility] Comment on above: Performed By: #### L 100.0100, L500.2500, L503.7505 #### [facility] [address] [facility] [place], [address] Immature granulocytes/100 WB C Auto (Bld)Ordered By: Malaika Yuen on 03-02-2025 Immature granulocytes/100 WBC (Bld) 0.400 % 0.0-0.9 [facility] Comment on above: IG% - Immature Granu locytes (promyelocytes, myelocytes and metamyelocytes) > 1% indicates that a LEFT SHIFT is Present. L503.7505on 03-02-2025 Natriuretic peptide B (Bld) [Mass/Vol] 900 pg/mL Normal <=1800 [facility] Comment on above: Result Comment: Hear t Failure Unlikely: < 300 pg/mL Heart Failure Likely < 50 Years: > 450 pg/mL 50-75 Years: > 900 pg/mL >75 Years: > 1800 pg/mL Performed By: #### L 503.7505 ####[facility] [address] [facility] [place], [address] MCV (mean corpuscular volume ) determinationOrdered By: Malaika Yuen on 03-02-2025 MCV (RBC) [Entitic vol] 90.3 fL Normal 81-99 [facility] Comment on above: Performed By: #### L 100.0100, L500.2500, L503.7505 #### [facility] [address] [place], [address] Mean corpuscular hemoglobin (MCH) determinationOrdered By: Malaika Yuen on 03-02-2025 MCH (RBC) [Entitic mass] 28.7 pg Normal 27.0-32.0 [facility] Comment on above: Performed By: #### L 100.0100, L500.2500, L503.7505 #### [facility] [address] [place], [address] Mean corpuscular hemoglobin concentration (MCHC) determinationOrdered By: Malaika Yuen on 03-02-2025 MCHC (RBC) [Mass/Vol] 31.8 g/dL Low 32-36 [facility] Comment on above: Performed By: #### L 100.0100, L500.2500, L503.7505 #### [facility] [address] [place], [address] Mean platelet volume determi nationOrdered By: Malaika Yuen on 03-02-2025 Platelet mean volume (Bld) [Entitic vol] 10.4 fL Normal 6.2-12.0 [facility] Comment on above: Performed By: #### L 100.0100, L500.2500, L503.7505 #### [facility] [address] [place], [address] Monocyte percentageOrdered B y: Malaika Yuen on 03-02-2025 Monocytes/100 WBC (Bld) 9.2 % Normal 0-10 [facility] Comment on above: Performed By: #### L 100.0100, L500.2500, L503.7505 #### [facility] [address] [place], [address] Natriuretic peptide.B prohor nathan N-Terminal [Mass/volume] in Serum or PlasmaOrdered By: Malaika Yuen on 03-02-2025 Natriuretic peptide.B prohormone N-Terminal [Mass/Vol] 900 pg/mL <1800 [facility] Comment on above: Heart Failure Unlike ly: < 300 pg/mLHeart Failure Likely< 50 Years: > 450 pg/mL50-75 Years: > 900 pg/mL>75 Years: > 1800 pg/mL Neutrophil percentageOrdered By: Malaika Yuen on 03-02-2025 Neutrophils/100 WBC (Bld) 70.2 % High 47-70 [facility] Comment on above: Performed By: #### L 100.0100, L500.2500, L503.7505 #### [facility] [address] [place], [address] Nucleated red blood cell per centageOrdered By: Malaika Yuen on 03-02-2025 Nucleated RBC/100 WBC (Bld) [Ratio] 0 % 0-5 [facility] Platelet countOrdered By: Dylan Yuen on 03-02-2025 Platelets (Bld) [#/Vol] 166 10*3/uL Normal 150-450 [facility] Comment on above: Performed By: #### L 100.0100, L500.2500, L503.7505 #### [facility] [address] [place], [address] Potassium measurement (mass/ volume)Ordered By: Malaika Yuen on 03-02-2025 Potassium (Unsp spec) [Mass/Vol] 4.8 mmol/L 3.3-5.1 [facility] Serum creatinine measurement (mass/volume)Ordered By: Malaika Yuen on 03-02-2025 Creatinine [Mass/Vol] 1.41 mg/dL High 0.70-1.20 [facility] Comment on above: Performed By: #### L 100.0100, L500.2500, L503.7505 #### [facility] [address] [place], [address] Serum glucose measurement (m ass/volume)Ordered By: Malaika Yuen on 03-02-2025 Glucose [Mass/Vol] 96 mg/dL Normal 70-99 [facility] Comment on above: Performed By: #### L 100.0100, L500.2500, L503.7505 #### [facility] [address] [place], [address] Serum or plasma calcium lakeisha urement (mass/volume)Ordered By: Malaika Yuen on 03-02-2025 Calcium [Mass/Vol] 9.4 mg/dL Normal 7.6-11.0 [facility] Comment on above: Performed By: #### L 100.0100, L500.2500, L503.7505 #### [facility] [address] [place], [address] Serum or plasma urea nitroge n measurement (mass/volume)Ordered By: Malaika Yuen on 03-02-2025 Urea nitrogen [Mass/Vol] 37 mg/dL High 4-19 [facility] Comment on above: Performed By: #### L 100.0100, L500.2500, L503.7505 #### [facility] [address] [place], [address] Sodium levelOrdered By: Ivelisse Yuen on 03-02-2025 Sodium [Moles/Vol] 139 mmol/L Normal 133-145 [facility] Comment on above: Performed By: #### L 100.0100, L500.2500, L503.7505 #### [facility] [address] [place], [address] White blood cell (WBC) count Ordered By: Malaika Yuen on 03-02-2025 WBC (Bld) [#/Vol] 5.4 10*3/uL Normal 4.4-11.0 [facility] Comment on above: Performed By: #### L 100.0100, L500.2500, L503.7505 #### [facility] [address] [place], [address] Absolute lymphocyte countOrd ered By: Danial Cook on 02-19-2025 Lymphocytes Auto (Unsp spec) [#/Vol] 0.98 10*3/uL 0.83-4.51 [facility] Absolute neutrophil countOrd ered By: Danial Cook on 02-19-2025 Neutrophils (Bld) [#/Vol] 4.8 10*3/uL 2.0-7.7 [facility] Anion gap in Serum or Plasma Ordered By: Danial Cook on 02-19-2025 Anion gap [Moles/Vol] 11 mmol/L 5- [facility] Automated lymphocyte count a s percentage of total leukocytesOrdered By: Danial Cook on 02-19-2025 Lymphocytes/100 WBC Auto (Unsp spec) 14.2 % Low - [facility] BUN/creatinine ratioOrdered By: Danial Cook on 02-19-2025 Urea nitrogen/Creatinine [Mass ratio] 18.3 mg/mg - [facility] Basic Metabolic Profile (BMP )on 02-19-2025 BUN/CRE 18.3 RATIO Normal - [facility] Comment on above: Performed By: #### L 100.0100, L500.2500, L503.7505 #### [facility] [address] [place], [address] Calcium [Mass/Vol] 9.3 mg/dL Normal 7.6-11.0 [facility] Comment on above: Performed By: #### L 100.0100, L500.2500, L503.7505 #### [facility] [address] [place], [address] Chloride [Moles/Vol] 100 mmol/L Normal 98-108 [facility] Comment on above: Performed By: #### L 100.0100, L500.2500, L503.7505 #### [facility] [address] [place], [address] CO2 [Moles/Vol] 28.2 mmol/L Normal 21.0-32.0 [facility] Comment on above: Performed By: #### L 100.0100, L500.2500, L503.7505 #### [facility] [address] [place], [address] Creatinine [Mass/Vol] 1.84 mg/dL High 0.70-1.20 [facility] Comment on above: Performed By: #### L 100.0100, L500.2500, L503.7505 #### [facility] [address] [place], [address] GAP 11 Normal 5-15 [facility] Comment on above: Performed By: #### L 100.0100, L500.2500, L503.7505 #### [facility] [address] [place], [address] GFR/1.73 sq M.predicted among non-blacks MDRD (S/P/Bld) [Vol rate/Area] 26 mL/min/{1.73_m2} Low >60 [facility] Comment on above: Result Comment: mL/m in/1.73m2 CKD-EPI Creatinine Equation (2020) Performed By: #### L 100.0100, L500.2500, L503.7505 #### [facility] [address] [place], [address] Glucose [Mass/Vol] 81 mg/dL Normal 70-99 [facility] Comment on above: Performed By: #### L 100.0100, L500.2500, L503.7505 #### [facility] [address] [place], [address] Potassium [Moles/Vol] 3.7 mmol/L Normal 3.3-5.1 [facility] Comment on above: Performed By: #### L 100.0100, L500.2500, L503.7505 #### [facility] [address] [place], [address] Sodium [Moles/Vol] 139 mmol/L Normal 133-145 [facility] Comment on above: Performed By: #### L 100.0100, L500.2500, L503.7505 #### [facility] [address] [place], [address] Urea nitrogen [Mass/Vol] 34 mg/dL High 4-19 [facility] Comment on above: Performed By: #### L 100.0100, L500.2500, L503.7505 #### [facility] [address] [place], [address] Basophil percentageOrdered B y: Danial Cook on 02-19-2025 Basophils/100 WBC (Bld) 1.0 % 0-1 [facility] CBC W/Diff, Automatedon 01-25 Absolute Lymph 0.98 X10 3/uL Normal 0.83-4.51 [facility] Comment on above: Performed By: #### L 100.0100, L500.2500, L503.7505 #### [facility] [address] [place], [address] Absolute Neut 4.8 X10 3/uL Normal 2.0-7.7 [facility] Comment on above: Performed By: #### L 100.0100, L500.2500, L503.7505 #### [facility] [address] [place], [address] Basophils/100 WBC (Bld) 1.0 % Normal 0-1 [facility] Comment on above: Performed By: #### L 100.0100, L500.2500, L503.7505 #### [facility] [address] [place], [address] Eosinophils/100 WBC (Bld) 2.6 % Normal 0-5 [facility] Comment on above: Performed By: #### L 100.0100, L500.2500, L503.7505 #### [facility] [address] [place], [address] Erythrocyte distribution width (RBC) [Ratio] 14.2 % Normal 11.6-14.6 [facility] Comment on above: Performed By: #### L 100.0100, L500.2500, L503.7505 #### [facility] [address] [place], [address] Hematocrit (Bld) [Volume fraction] 36.7 % Low 37-47 [facility] Comment on above: Performed By: #### L 100.0100, L500.2500, L503.7505 #### [facility] [address] [place], [address] Hemoglobin (Bld) [Mass/Vol] 11.6 g/dL Low 12.0-15.0 [facility] Comment on above: Performed By: #### L 100.0100, L500.2500, L503.7505 #### [facility] [address] [place], [address] IG% 0.600 Normal 0.0-0.9 [facility] Comment on above: Result Comment: IG% - Immature Granulocytes (promyelocytes, myelocytes and metamyelocytes) > 1% indicates that a LEFT SHIFT is Present. Performed By: #### L 100.0100, L500.2500, L503.7505 #### [facility] [address] [place], [address] Lymphocytes/100 WBC (Bld) 14.2 % Low 19-41 [facility] Comment on above: Performed By: #### L 100.0100, L500.2500, L503.7505 #### [facility] [address] [place], [address] MCH (RBC) [Entitic mass] 28.3 pg Normal 27.0-32.0 [facility] Comment on above: Performed By: #### L 100.0100, L500.2500, L503.7505 #### [facility] [address] [place], [address] MCHC (RBC) [Mass/Vol] 31.6 g/dL Low 32-36 [facility] Comment on above: Performed By: #### L 100.0100, L500.2500, L503.7505 #### [facility] [address] [place], [address] MCV (RBC) [Entitic vol] 89.5 fL Normal 81-99 [facility] Comment on above: Performed By: #### L 100.0100, L500.2500, L503.7505 #### [facility] [address] [place], [address] Monocytes/100 WBC (Bld) 11.6 % High 0-[address] [facility] Comment on above: Performed By: #### L 100.0100, L500.2500, L503.7505 #### [facility] [address] [place], [address] Neutrophils/100 WBC (Bld) 70.0 % Normal 47-70 [facility] Comment on above: Performed By: #### L 100.0100, L500.2500, L503.7505 #### [facility] [address] [place], [address] Nucleated RBC (Bld) [#/Vol] 0 10*3/uL Normal 0-5 [facility] Comment on above: Performed By: #### L 100.0100, L500.2500, L503.7505 #### [facility] [address] [place], [address] Platelet mean volume (Bld) [Entitic vol] 10.1 fL Normal 6.2-12.0 [facility] Comment on above: Performed By: #### L 100.0100, L500.2500, L503.7505 #### [facility] [address] [place], [address] Platelets (Bld) [#/Vol] 261 10*3/uL Normal 150-450 [facility] Comment on above: Performed By: #### L 100.0100, L500.2500, L503.7505 #### [facility] [address] [place], [address] RBC (Bld) [#/Vol] 4.10 10*6/uL Low 4.2-5.4 [facility] Comment on above: Performed By: #### L 100.0100, L500.2500, L503.7505 #### [facility] [address] [place], [address] RDW SD 46.7 fl High 35.1-43.9 [facility] Comment on above: Performed By: #### L 100.0100, L500.2500, L503.7505 #### [facility] [address] [place], [address] WBC (Bld) [#/Vol] 6.9 10*3/uL Normal 4.4-11.0 [facility] Comment on above: Performed By: #### L 100.0100, L500.2500, L503.7505 #### [facility] [address] [place], [address] [facility] CNPN Telephone (PTWS) AMBER KOROMA ([id number]) 1940 F Date Time Provider Department 02/19/25 [facility] PTWS During your visit today, we recorded the following information about you: Danna Hernandez 02/19/2025 9:20 AM Signed [facility] stating they received an order for PT from [facility].However, he states the order needs to be for Occupational Therapy to be able to go through them. Their fax number is [phone]. Please review and advise. Danna Hernandez February [...] Endometrial cancer [C54.1] 03/19/2011 Cyst in hand [[id number]] 08/02/2011 Personal history of malignant neoplasm of [...] Status:Closed by MORRIS LO on 02/19/25 Normal [facility] Carbon dioxide, total [Moles /volume] in Central venous bloodOrdered By: Danial Cook on 02-19-2025 CO2 [Moles/Vol] 28.2 mmol/L 21.0-32.0 [facility] Chloride assayOrdered By: Elizabet Cook on 02-19-2025 Chloride [Moles/Vol] 100 mmol/L 98-108 [facility] Eosinophil percentageOrdered By: Danial Cook on 02-19-2025 Eosinophils/100 WBC (Bld) 2.6 % 0-5 [facility] Erythrocyte distribution wid th ratioOrdered By: Danial Cook on 02-19-2025 Erythrocyte distribution width (RBC) [Ratio] 14.2 % 11.6-14.6 [facility] Erythrocyte distribution wid th standard deviationOrdered By: Danial Cook on 02-19-2025 Erythrocyte distribution width (RBC) [Ratio] 46.7 fl High 35.1-43.9 [facility] Glomerular filtration rate ( GFR) estimation/1.73 sq m using serum, plasma, or whole bOrdered By: Danial Cook on 02-19-2025 GFR/1.73 sq M.predicted among non-blacks MDRD (S/P/Bld) [Vol rate/Area] 26 mL/min/{1.73_m2} Low >60 [facility] Comment on above: mL/min/1.73m2 CKD-EP I Creatinine Equation (2020) Hematocrit Auto (Bld) [Volum e fraction]Ordered By: Danial Cook on 02-19-2025 Hematocrit (Bld) [Volume fraction] 36.7 % Low 37-47 [facility] Hemoglobin measurementOrdere d By: Danial Cook on 02-19-2025 Hemoglobin (Bld) [Mass/Vol] 11.6 g/dL Low 12.0-15.0 [facility] Immature granulocytes/100 WB C Auto (Bld)Ordered By: Danial Cook on 02-19-2025 Immature granulocytes/100 WBC (Bld) 0.600 % 0.0-0.9 [facility] Comment on above: IG% - Immature Granu locytes (promyelocytes, myelocytes and metamyelocytes) > 1% indicates that a LEFT SHIFT is Present. L503.7505on 02-19-2025 Natriuretic peptide B (Bld) [Mass/Vol] 719 pg/mL Normal <=1800 [facility] Comment on above: Result Comment: Hear t Failure Unlikely: < 300 pg/mL Heart Failure Likely < 50 Years: > 450 pg/mL 50-75 Years: > 900 pg/mL >75 Years: > 1800 pg/mL Performed By: #### L 100.0100, L500.2500, L503.7505 #### [facility] [address] [place], [place], [address] MCV (mean corpuscular volume ) determinationOrdered By: Danial Cook on 02-19-2025 MCV (RBC) [Entitic vol] 89.5 fL 81-[address] [facility] Mean corpuscular hemoglobin (MCH) determinationOrdered By: Danial Cook on 02-19-2025 MCH (RBC) [Entitic mass] 28.3 pg 27.0-32.0 [facility] Mean corpuscular hemoglobin concentration (MCHC) determinationOrdered By: Danial Cook on 02-19-2025 MCHC (RBC) [Mass/Vol] 31.6 g/dL Low 32-36 [facility] Mean platelet volume determi nationOrdered By: Danial Cook on 02-19-2025 Platelet mean volume (Bld) [Entitic vol] 10.1 fL 6.2-12.0 [facility] Monocyte percentageOrdered B y: Danial Cook on 02-19-2025 Monocytes/100 WBC (Bld) 11.6 % High 0-10 [facility] Natriuretic peptide.B prohor nathan N-Terminal [Mass/volume] in Serum or PlasmaOrdered By: Danial Cook on 02-19-2025 Natriuretic peptide.B prohormone N-Terminal [Mass/Vol] 719 pg/mL <1800 [facility] Comment on above: Heart Failure Unlike ly: < 300 pg/mLHeart Failure Likely< 50 Years: > 450 pg/mL50-75 Years: > 900 pg/mL>75 Years: > 1800 pg/mL Neutrophil percentageOrdered By: Danial Cook on 02-19-2025 Neutrophils/100 WBC (Bld) 70.0 % 47-70 [facility] Nucleated red blood cell per centageOrdered By: Danial Cook on 02-19-2025 Nucleated RBC/100 WBC (Bld) [Ratio] 0 % 0-5 [facility] Platelet countOrdered By: Elizabet Cook on 02-19-2025 Platelets (Bld) [#/Vol] 261 10*3/uL 150-450 [facility] Potassium measurement (mass/ volume)Ordered By: Danial Cook on 02-19-2025 Potassium (Unsp spec) [Mass/Vol] 3.7 mmol/L 3.3-5.1 [facility] RBC Auto (Bld) [#/Vol]Ordere d By: Danial Cook on 02-19-2025 RBC (Bld) [#/Vol] 4.10 10*6/uL Low 4.2-5.4 [facility] Serum creatinine measurement (mass/volume)Ordered By: Danial Cook on 02-19-2025 Creatinine [Mass/Vol] 1.84 mg/dL High 0.70-1.20 [facility] Serum glucose measurement (m ass/volume)Ordered By: Danial Cook on 02-19-2025 Glucose [Mass/Vol] 81 mg/dL 70-99 [facility] Serum or plasma calcium lakeisha urement (mass/volume)Ordered By: Danial Cook on 02-19-2025 Calcium [Mass/Vol] 9.3 mg/dL 7.6-11.0 [facility] Serum or plasma urea nitroge n measurement (mass/volume)Ordered By: Danial Cook on 02-19-2025 Urea nitrogen [Mass/Vol] 34 mg/dL High 4-19 [facility] Sodium levelOrdered By: Refugio ramirez Joey on 02-19-2025 Sodium [Moles/Vol] 139 mmol/L 133-145 [facility] White blood cell (WBC) count Ordered By: Danial Cook on 02-19-2025 WBC (Bld) [#/Vol] 6.9 10*3/uL 4.4-11.0 [facility] CNCOon 12-04-2024 CNCO Letter Text Normal [facility] CNPNon 11-24-2024 CNPN Telephone (PODIWS) AMBER KOROMA ([id number]) 1940 F Date Time Provider Department 11/24/24 [...] Endometrial cancer [C54.1] 03/19/2011 Cyst in hand [[id number]] 08/02/2011 Personal history of malignant neoplasm of [...] Status:Closed by CHARLA BENITEZ on 11/24/24 Normal [facility] CNTHERAPYon 11-20-2024 CNTHERAPY OT/PT/Speech Visit ( PTWS) AMBER KOROMA ([id number]) 1940 F Date Time Provider Department 11/20/24 2:45 PM PRERNA BONDS PTWS Date Time Provider Department Center 11/20/2024 2:45 PM [id number] BONDS PTWS [place] Reason for Visit: [...] 1,000 Units by mouth once daily. Normal [facility] Culture, Blood (WB)on 2024 CUB Blood cultures x2, f rom two different sites No growth in 5 days. Normal [facility] Comment on above: Performed By: #### L 100.0100, L500.2500, L503.7505 #### [facility] [address] [place], [address] [id number] 11-13-2024 [id number] HNO ID: [id number] Author: PRERNA BONDS PT Service: ? Author Type: Physical Therapist Type: [id number] Filed: 11/13/2024 16:42 Note Text: [facility] Therapy Physical Therapy Plan of Care Certification Patient Name: Amber Koroma : 1940 [facility] #: [id number] Date: 11/13/2024 To: Tyler Benitez MD From [...] Patient to be seen for Therapeutic exercise (98469), Manual therapy (26705), Self-senior care management (72302), Patient/Family/Caregiver Education PLAN FOR NEXT VISIT: Continue exercise, MLD, and compression to improve skin/soft tissue condition and promote healing. Facilitate pt obtaining appropriate compression for pt management and for prevention of further cellulitis/infection. For further details regarding this patient refer to the Physical Therapy electronically documented visit dated 11/13/2024. Provider Attestation I have reviewed the treatment plan for Amber Koroma, [facility]# [id number] for the period of 11/13/24 -- 01/13/25, established on 11/13/2024. Signature certifies the need for therapy services. Normal [facility] CNTHERAPYon 11-13-2024 CNTHERAPY OT/PT/Speech Visit ( PTWS) AMBER KOROMA ([id number]) 1940 F Date Time Provider Department 11/13/24 2:45 PM PRERNA [facility]ONDS PTWS Date Time Provider Department Center 11/13/2024 2:45 PM [id number] BONDS PTWS [place] [facility] Reason for Visit: [...] by mouth once daily. Letter Text Normal [facility] Absolute lymphocyte countOrd ered By: Brad Avalos on 11-10-2024 Lymphocytes Auto (Unsp spec) [#/Vol] 0.94 10*3/uL 0.83-4.51 [facility] Absolute neutrophil countOrd ered By: Brad Avalos on 11-10-2024 Neutrophils (Bld) [#/Vol] 5.0 10*3/uL 2.0-7.7 [facility] Anion gap in Serum or Plasma Ordered By: Brad Avalos on 11-10-2024 Anion gap [Moles/Vol] 9 mmol/L 5-15 [facility] Automated lymphocyte count a s percentage of total leukocytesOrdered By: Brad Avalos on 11-10-2024 Lymphocytes/100 WBC Auto (Unsp spec) 14.0 % Low 19-41 [facility] BUN/creatinine ratioOrdered By: Brad Avalos on 11-10-2024 Urea nitrogen/Creatinine [Mass ratio] 18.0 mg/mg 10-20 [facility] Basic Metabolic Profile (BMP )on 11-10-2024 BUN/CRE 18.0 RATIO Normal 10-20 [facility] Comment on above: Performed By: #### L 500.2500, L100.0100 #### [facility] [address] [place], [address] Calcium [Mass/Vol] 9.3 mg/dL Normal 7.6-11.0 [facility] Comment on above: Performed By: #### L 500.2500, L100.0100 #### [facility] [address] [place], [address] Chloride [Moles/Vol] 106 mmol/L Normal 98-108 [facility] Comment on above: Performed By: #### L 500.2500, L100.0100 #### [facility] [address] [place], [address] CO2 [Moles/Vol] 23.8 mmol/L Normal 21.0-32.0 [facility] Comment on above: Performed By: #### L 500.2500, L100.0100 #### [facility] [address] [place], [address] Creatinine [Mass/Vol] 0.96 mg/dL Normal 0.70-1.20 [facility] Comment on above: Performed By: #### L 500.2500, L100.0100 #### [facility] [address] [place], [address] ECRCL 40.63 ml/min Low 50-250 [facility] Comment on above: Performed By: #### L 500.2500, L100.0100 #### [facility] [address] [place], [address] GAP 9 Normal 5-15 [facility] Comment on above: Performed By: #### L 500.2500, L100.0100 #### [facility] [address] [place], [address] GFR/1.73 sq M.predicted among non-blacks MDRD (S/P/Bld) [Vol rate/Area] 58 mL/min/{1.73_m2} Low >60 [facility] Comment on above: Result Comment: mL/m in/1.73m2 CKD-EPI Creatinine Equation (2020) Performed By: #### L 500.2500, L100.0100 #### [facility] [address] [place], [address] Glucose [Mass/Vol] 85 mg/dL Normal 70-99 [facility] Comment on above: Performed By: #### L 500.2500, L100.0100 #### [facility] [address] [place], [address] Potassium [Moles/Vol] 4.3 mmol/L Normal 3.3-5.1 [facility] Comment on above: Performed By: #### L 500.2500, L100.0100 #### [facility] [address] [place], [address] Sodium [Moles/Vol] 138 mmol/L Normal 133-145 [facility] Comment on above: Performed By: #### L 500.2500, L100.0100 #### [facility] [address] [place], [address] Urea nitrogen [Mass/Vol] 17 mg/dL Normal 4-19 [facility] Comment on above: Performed By: #### L 500.2500, L100.0100 #### [facility] [address] [place], [address] Basophil percentageOrdered B y: Brad Avalos on 11-10-2024 Basophils/100 WBC (Bld) 0.4 % 0-1 [facility] Blood cultureOrdered By: Speedy Avalos on 11-10-2024 Bacteria identified Cx Nom (Bld) No growth in 5 days. [facility] Bacteria identified Cx Nom (Bld) No growth in 5 days. [facility] CBC W/Diff, Automatedon - Absolute Lymph 0.94 X10 3/uL Normal 0.83-4.51 [facility] Comment on above: Performed By: #### L 500.2500, L100.0100 #### [facility] [address] [place], [address] Absolute Neut 5.0 X10 3/uL Normal 2.0-7.7 [facility] Comment on above: Performed By: #### L 500.2500, L100.0100 #### [facility] [address] [place], [address] Basophils/100 WBC (Bld) 0.4 % Normal 0-1 [facility] Comment on above: Performed By: #### L 500.2500, L100.0100 #### [facility] [address] [place], [address] Eosinophils/100 WBC (Bld) 1.5 % Normal 0-5 [facility] Comment on above: Performed By: #### L 500.2500, L100.0100 #### [facility] [address] [place], [address] Erythrocyte distribution width (RBC) [Ratio] 14.3 % Normal 11.6-14.6 [facility] Comment on above: Performed By: #### L 500.2500, L100.0100 #### [facility] [address] [place], [address] Hematocrit (Bld) [Volume fraction] 39.6 % Normal 37-47 [facility] Comment on above: Performed By: #### L 500.2500, L100.0100 #### [facility] [address] [place], [address] Hemoglobin (Bld) [Mass/Vol] 12.6 g/dL Normal 12.0-15.0 [facility] Comment on above: Performed By: #### L 500.2500, L100.0100 #### [facility] [address] [place], [address] IG% 0.300 Normal 0.0-0.9 [facility] Comment on above: Result Comment: IG% - Immature Granulocytes (promyelocytes, myelocytes and metamyelocytes) > 1% indicates that a LEFT SHIFT is Present. Performed By: #### L 500.2500, L100.0100 #### [facility] [address] [place], [address] Lymphocytes/100 WBC (Bld) 14.0 % Low 19-41 [facility] Comment on above: Performed By: #### L 500.2500, L100.0100 #### [facility] [address] [place], [address] MCH (RBC) [Entitic mass] 27.8 pg Normal 27.0-32.0 [facility] Comment on above: Performed By: #### L 500.2500, L100.0100 #### [facility] [address] [place], [address] MCHC (RBC) [Mass/Vol] 31.8 g/dL Low 32-36 [facility] Comment on above: Performed By: #### L 500.2500, L100.0100 #### [facility] [address] [place], [address] MCV (RBC) [Entitic vol] 87.4 fL Normal 81-99 [facility] Comment on above: Performed By: #### L 500.2500, L100.0100 #### [facility] [address] [place], [address] Monocytes/100 WBC (Bld) 9.8 % Normal 0-10 [facility] Comment on above: Performed By: #### L 500.2500, L100.0100 #### [facility] [address] [place], [address] Neutrophils/100 WBC (Bld) 74.0 % High 47-70 [facility] Comment on above: Performed By: #### L 500.2500, L100.0100 #### [facility] [address] [place], [address] Nucleated RBC (Bld) [#/Vol] 0 10*3/uL Normal 0-5 [facility] Comment on above: Performed By: #### L 500.2500, L100.0100 #### [facility] [address] [place], [address] Platelet mean volume (Bld) [Entitic vol] 10.0 fL Normal 6.2-12.0 [facility] Comment on above: Performed By: #### L 500.2500, L100.0100 #### [facility] [address] [place], [address] Platelets (Bld) [#/Vol] 192 10*3/uL Normal 150-450 [facility] Comment on above: Performed By: #### L 500.2500, L100.0100 #### [facility] [address] [place], [address] RBC (Bld) [#/Vol] 4.53 10*6/uL Normal 4.2-5.4 [facility] Comment on above: Performed By: #### L 500.2500, L100.0100 #### [facility] [address] [place], [address] RDW SD 45.3 fl High 35.1-43.9 [facility] Comment on above: Performed By: #### L 500.2500, L100.0100 #### [facility] [address] [place], [address] WBC (Bld) [#/Vol] 6.7 10*3/uL Normal 4.4-11.0 [facility] Comment on above: Performed By: #### L 500.2500, L100.0100 #### [facility] [address] [place], [address] Carbon dioxide, total [Moles /volume] in Central venous bloodOrdered By: Brad Avalos on 11-10-2024 CO2 [Moles/Vol] 23.8 mmol/L 21.0-32.0 [facility] Chloride assayOrdered By: Gumaro Avalos on 11-10-2024 Chloride [Moles/Vol] 106 mmol/L 98-108 [facility] Emergency Department Summary on 11-10-2024 Emergency Department Summary [facility] Medical Records Department [address] [place] [address] Emergency Department Summary 11/10/24 MR#: [id number] Acct: [id number] Name: AMBER KOROMA Rep #: [id number] : 1940 84 From: Brad Avalos DO [...] heavy and she has difficulty moving around. 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 Normal [facility] Eosinophil percentageOrdered By: Brad Avalos on 11-10-2024 Eosinophils/100 WBC (Bld) 1.5 % 0-5 [facility] Erythrocyte distribution wid th ratioOrdered By: Brad Avalos on 11-10-2024 Erythrocyte distribution width (RBC) [Ratio] 14.3 % 11.6-14.6 [facility] Erythrocyte distribution wid th standard deviationOrdered By: Brad Avalos on 11-10-2024 Erythrocyte distribution width (RBC) [Entitic vol] 45.3 fL High 35.1-43.9 [facility] Erythrocyte distribution width (RBC) [Ratio] 45.3 fl High 35.1-43.9 [facility] Estimation of creatinine yovanny aranceOrdered By: Brad Avalos on 11-10-2024 Estimated Creatinine Clearance Calc 40.63 ml/min Low 50-250 [facility] GFR/1.73 sq M.predicted zane g non-blacks MDRD (S/P/Bld) [Vol rate/Area]Ordered By: Brad Avalos on 11-10-2024 Estimated GFR (MDRD) Non-Af Amer 58 Low >60 [facility] Comment on above: mL/min/1.73m2 CKD-EP I Creatinine Equation (2020) Glomerular filtration rate ( GFR) estimation/1.73 sq m using serum, plasma, or whole bOrdered By: Brad Avalos on 11-10-2024 GFR/1.73 sq M.predicted among non-blacks MDRD (S/P/Bld) [Vol rate/Area] 58 mL/min/{1.73_m2} Low >60 [facility] Comment on above: mL/min/1.73m2 CKD-EP I Creatinine Equation (2020) Hematocrit Auto (Bld) [Volum e fraction]Ordered By: Brad Avalos on 11-10-2024 Hematocrit (Bld) [Volume fraction] 39.6 % 37-47 [facility] Hemoglobin measurementOrdere d By: Brad Avalos on 11-10-2024 Hemoglobin (Bld) [Mass/Vol] 12.6 g/dL 12.0-15.0 [facility] Immature granulocytes/100 WB C Auto (Bld)Ordered By: Brad Avalos on 11-10-2024 Immature granulocytes/100 WBC (Bld) 0.300 % 0.0-0.9 [facility] Comment on above: IG% - Immature Granu locytes (promyelocytes, myelocytes and metamyelocytes) > 1% indicates that a LEFT SHIFT is Present. Lymphocytes Auto (Unsp spec) [#/Vol]Ordered By: Brad Avalos on 11-10-2024 Lymphocytes (Bld) [#/Vol] 0.94 10*3/uL 0.83-4.51 [facility] Lymphocytes/100 WBC Auto (Un sp spec)Ordered By: Brad Avalos on 11-10-2024 Lymphocytes/100 WBC (Bld) 14.0 % Low 19-41 [facility] MCV (mean corpuscular volume ) determinationOrdered By: Brad Avalos on 11-10-2024 MCV (RBC) [Entitic vol] 87.4 fL 81-99 [facility] Mean corpuscular hemoglobin (MCH) determinationOrdered By: Brad Avalos on 11-10-2024 MCH (RBC) [Entitic mass] 27.8 pg 27.0-32.0 [facility] Mean corpuscular hemoglobin concentration (MCHC) determinationOrdered By: Brad Avalos on 11-10-2024 MCHC (RBC) [Mass/Vol] 31.8 g/dL Low 32-36 [facility] Mean platelet volume determi nationOrdered By: Brad Avalos on 11-10-2024 Platelet mean volume (Bld) [Entitic vol] 10.0 fL 6.2-12.0 [facility] Monocyte percentageOrdered B y: Brad Avalos on 11-10-2024 Monocytes/100 WBC (Bld) 9.8 % 0-10 [facility] Neutrophil percentageOrdered By: Brad Avalos on 11-10-2024 Neutrophils/100 WBC (Bld) 74.0 % High 47-70 [facility] Nucleated red blood cell per centageOrdered By: Brad Avalos on 11-10-2024 Nucleated RBC/100 WBC (Bld) [Ratio] 0 % 0-5 [facility] Platelet countOrdered By: Gumaro Avalos on 11-10-2024 Platelets (Bld) [#/Vol] 192 10*3/uL 150-450 [facility] Potassium (Unsp spec) [Mass/ Vol]Ordered By: Brad Avalos on 11-10-2024 Potassium [Moles/Vol] 4.3 mmol/L 3.3-5.1 [facility] Potassium measurement (mass/ volume)Ordered By: Brad Avalos on 11-10-2024 Potassium (Unsp spec) [Mass/Vol] 4.3 mmol/L 3.3-5.1 [facility] RBC Auto (Bld) [#/Vol]Ordere d By: Brad Avalos on 11-10-2024 RBC (Bld) [#/Vol] 4.53 10*6/uL 4.2-5.4 [facility] Serum creatinine measurement (mass/volume)Ordered By: Brad Avalos on 11-10-2024 Creatinine [Mass/Vol] 0.96 mg/dL 0.70-1.20 [facility] Serum glucose measurement (m ass/volume)Ordered By: Brad Avalos on 11-10-2024 Glucose [Mass/Vol] 85 mg/dL 70-99 [facility] Serum or plasma calcium lakeisha urement (mass/volume)Ordered By: Brad Avalos on 11-10-2024 Calcium [Mass/Vol] 9.3 mg/dL 7.6-11.0 [facility] Serum or plasma urea nitroge n measurement (mass/volume)Ordered By: Brad Avalos on 11-10-2024 Urea nitrogen [Mass/Vol] 17 mg/dL 4-19 [facility] Sodium levelOrdered By: Ray Avalos on 11-10-2024 Sodium [Moles/Vol] 138 mmol/L 133-145 [facility] White blood cell (WBC) count Ordered By: Brad Avalos on 11-10-2024 WBC (Bld) [#/Vol] 6.7 10*3/uL 4.4-11.0 [facility] CNPNon 11-09-2024 CNPN Telephone (PTWS) AMBER KOROMA ([id number]) 1940 F Date Time Provider Department 11/09/24 [...] Endometrial cancer [C54.1] 03/19/2011 Cyst in hand [[id number]] 08/02/2011 Personal history of malignant neoplasm of [...] Encounter Status:[facility] ([id number]) 1940 F Date Time Provider Department 11/09/24 [...] Fully Assessed Reason for Visit: Patient Question [6089] Cmt: (cont) Pt was then advised to [...] Endometrial cancer [C54.1] 03/19/2011 Cyst in hand [[id number]] 08/02/2011 Personal history of malignant neoplasm of [...] Status:Closed by PRERNA BONDS on 11/09/24 Normal [facility] CNPN Telephone (PTWS) AMBER KOROMA ([id number]) 1940 F Date Time Provider Department 11/09/24 [...] Endometrial cancer [C54.1] 03/19/2011 Cyst in hand [[id number]] 08/02/2011 Personal history of malignant neoplasm of [...] Status:Closed by PRERNA BONDS on 11/09/24 [facility] ([id number]) 1940 F Date Time Provider Department 11/09/24 [...] Fully Assessed Reason for Visit: Patient Question [0380] Cmt: Therapist spoke with nurse in [facility] [facility] who consulted physician on staff and advised [...] Endometrial cancer [C54.1] 03/19/2011 Cyst in hand [[id number]] 08/02/2011 Personal history of malignant neoplasm of [...] Status:Closed by PRERNA BONDS on 11/09/24 Normal [facility] CNTHERAPYon 10-30-2024 CNTHERAPY OT/PT/Speech Visit ( PTWS) AMBER KOROMA ([id number]) 1940 F Date Time Provider Department 10/30/24 2:45 PM ISAHUSSAINPRERNA PTWS Date Time Provider Department Center 10/30/2024 2:45 PM [id number] BONDS PTWS [place] Reason for Visit: [...] 1,000 Units by mouth once daily. Normal [facility] CNTHERAPYon 09-25-2024 CNTHERAPY OT/PT/Speech Visit ( PTWS) AMBER KOROMA ([id number]) 1940 F Date Time Provider Department 09/25/24 2:45 PM PRERNA BONDS PTWS Date Time Provider Department Center 09/25/2024 2:45 PM [id number] BONDS PTWS [place] Reason for Visit: [...] 1,000 Units by mouth once daily. Normal [facility] [id number] 09-04-2024 [id number] HNO ID: [id number] Author: PRERNA BONDS PT Service: ? Author Type: Physical Therapist Type: [id number] Filed: 09/04/2024 16:39 Note Text: [facility] Rehabilitation [facility] Sports Therapy Physical Therapy Plan of Care Certification Patient Name: Amber Koroma : 1940 CC #: [id number] Date: 09/04/2024 To: Chhaya Stacy MD From [...] Patient to be seen for Therapeutic exercise (73532), Manual therapy (10766), Self-senior care management (22638), Patient/Family/Caregiver Education PLAN FOR NEXT VISIT: Resume [...] reviewed the treatment plan for Amber Koroma, [facility]# [id number] for the period of 09/17/24 -- 11/02/24, established on 09/04/2024. Signature certifies the need for therapy services. Normal [facility] CNTHERAPYon 09-04-2024 CNTHERAPY OT/PT/Speech Visit ( PTWS) AMBER KOROMA ([id number]) 1940 F Date Time Provider Department 09/04/24 2:45 PM PRERNA BONDS PTWS Date Time Provider Department Center 09/04/2024 2:45 PM [id number] BONDS PTWS [place] Reason for Visit: [...] by mouth once daily. Letter Text Normal [facility] Orthopedic Visit Reporton Orthopedic Visit Report [facility] [address] [place] [address] OFFICE VISIT Date of Service: 08/27/24 MR#: [id number] Acct: [id number] Name: AMBER KOROMA Rep #: [id number] : 1940 Provider: Dr. 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 Alphonso Newell MD 08/27/24 8566. Part of today???s visit was documented by [...] Performing Provider: Alphonso Newell MD Performing Location: [facility] Administered by: Alphonso (more content not included)... Normal [facility] Orthopedic Visit Reporton Orthopedic Visit Report [facility] [address] [place] [address] [place] [address] OFFICE VISIT Date of Service: 08/21/24 MR#: [id number] Acct: [id number] Name: AMBER KOROMA Rep #: [id number] : 1940 Provider: Dr. 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 Normal [facility] BNP,B-Type NATRIURETIC PEPTI Marifer 08-12-2024 Natriuretic peptide B (Bld) [Mass/Vol] 182.0 pg/mL High 0-100 [facility] Comment on above: Performed By: #### L 503.6600 ####[facility] [id number] [place], [address] Absolute neutrophil countOrd ered By: Tyler Benitez on 08-11-2024 Neutrophils (Bld) [#/Vol] 4.2 10*3/uL 2.0-7.7 [facility] Albumin to globulin ratioOrd ered By: Tyler Benitez on 08-11-2024 Albumin/Globulin [Mass ratio] 0.8 {ratio} Low 0.9-2.4 [facility] BNP (brain natriuretic pepti de measurement)Ordered By: Tyler Benitez on 08-11-2024 Natriuretic peptide B (Bld) [Mass/Vol] 182.0 pg/mL High 0-100 [facility] Basophil percentageOrdered B y: Tyler Benitez on 08-11-2024 Basophils/100 WBC (Bld) 0.6 % 0-1 [facility] Bilirubin, totalOrdered By: Tyler Benitez on 08-11-2024 Bilirubin [Mass/Vol] 0.30 mg/dL 0.20-1.00 [facility] Comment on above: For patients on eltr ombopag therapy, use of Dimension Salol TBIL is not recommended. Blood urea nitrogen (BUN)/cr eatinine ratioOrdered By: Tyler Benitez on 08-11-2024 Urea nitrogen/Creatinine [Mass ratio] 16.0 mg/mg 10-20 [facility] CBC W/Diff, Automatedon 07-26 Absolute Lymph 1.51 X10 3/uL Normal 0.83-4.51 [facility] Comment on above: Order Comment: Order Date: 08/11/24 Order Info: 0184-1 - CBCD Performed By: #### L 500.4050, L100.0100 #### [facility] [address] [place], [address] Absolute Neut 4.2 X10 3/uL Normal 2.0-7.7 [facility] Comment on above: Order Comment: Order Date: 08/11/24 Order Info: 018- - CBCD Performed By: #### L 500.4050, L100.0100 #### [facility] [address] [place], [address] Basophils/100 WBC (Bld) 0.6 % Normal 0-[address] [facility] Comment on above: Order Comment: Order Date: 08/11/24 Order Info: 018-1 - CBCD Performed By: #### L 500.4050, L100.0100 #### [facility] [address] [place], [address] Eosinophils/100 WBC (Bld) 3.2 % Normal 0-5 [facility] Comment on above: Order Comment: Order Date: 08/11/24 Order Info: 018-1 - CBCD Performed By: #### L 500.4050, L100.0100 #### [facility] [address] [place], [address] Erythrocyte distribution width (RBC) [Ratio] 13.7 % Normal 11.6-14.6 [facility] Comment on above: Order Comment: Order Date: 08/11/24 Order Info: 0184-1 - CBCD Performed By: #### L 500.4050, L100.0100 #### [facility] [address] [place], [address] Hematocrit (Bld) [Volume fraction] 39.7 % Normal 37-47 [facility] Comment on above: Order Comment: Order Date: 08/11/24 Order Info: 018- - CBCD Performed By: #### L 500.4050, L100.0100 #### [facility] [address] [place], [address] Hemoglobin (Bld) [Mass/Vol] 12.3 g/dL Normal 12.0-15.0 [facility] Comment on above: Order Comment: Order Date: 08/11/24 Order Info: 018- - CBCD Performed By: #### L 500.4050, L100.0100 #### [facility] [address] [place], [address] IG% 0.000 Normal 0.0-0.9 [facility] Comment on above: Order Comment: Order Date: 08/11/24 Order Info: 018- - CBCD Result Comment: IG% - Immature Granulocytes (promyelocytes, myelocytes and metamyelocytes) > 1% indicates that a LEFT SHIFT is Present. Performed By: #### L 500.4050, L100.0100 #### [facility] [address] [place], [address] Lymphocytes/100 WBC (Bld) 23.2 % Normal 19-41 [facility] Comment on above: Order Comment: Order Date: 08/11/24 Order Info: 018- - CBCD Performed By: #### L 500.4050, L100.0100 #### [facility] [address] [place], [address] MCH (RBC) [Entitic mass] 27.5 pg Normal 27.0-32.0 [facility] Comment on above: Order Comment: Order Date: 08/11/24 Order Info: 0184- - CBCD Performed By: #### L 500.4050, L100.0100 #### [facility] [address] [place], [address] MCHC (RBC) [Mass/Vol] 31.0 g/dL Low 32-36 [facility] Comment on above: Order Comment: Order Date: 08/11/24 Order Info: 0184-1 - CBCD Performed By: #### L 500.4050, L100.0100 #### [facility] [address] [place], [address] MCV (RBC) [Entitic vol] 88.6 fL Normal 81-[address] [facility] Comment on above: Order Comment: Order Date: 08/11/24 Order Info: 0184-1 - CBCD Performed By: #### L 500.4050, L100.0100 #### [facility] [address] [place], [address] Monocytes/100 WBC (Bld) 8.6 % Normal 0-[address] [facility] Comment on above: Order Comment: Order Date: 08/11/24 Order Info: 0184-1 - CBCD Performed By: #### L 500.4050, L100.0100 #### [facility] [address] [place], [address] Neutrophils/100 WBC (Bld) 64.4 % Normal 47-70 [facility] Comment on above: Order Comment: Order Date: 08/11/24 Order Info: 0184-1 - CBCD Performed By: #### L 500.4050, L100.0100 #### [facility] [address] [place], [address] Nucleated RBC (Bld) [#/Vol] 0 10*3/uL Normal 0-5 [facility] Comment on above: Order Comment: Order Date: 08/11/24 Order Info: 0184-1 - CBCD Performed By: #### L 500.4050, L100.0100 #### [facility] [address] [place], [address] Platelet mean volume (Bld) [Entitic vol] 10.5 fL Normal 6.2-12.0 [facility] Comment on above: Order Comment: Order Date: 08/11/24 Order Info: 0184-1 - CBCD Performed By: #### L 500.4050, L100.0100 #### [facility] [address] [place], [address] Platelets (Bld) [#/Vol] 220 10*3/uL Normal 150-450 [facility] Comment on above: Order Comment: Order Date: 08/11/24 Order Info: 0184-1 - CBCD Performed By: #### L 500.4050, L100.0100 #### [facility] [address] [place], [address] RBC (Bld) [#/Vol] 4.48 10*6/uL Normal 4.2-5.4 [facility] Comment on above: Order Comment: Order Date: 08/11/24 Order Info: 0184-1 - CBCD Performed By: #### L 500.4050, L100.0100 #### [facility] [address] [place], [address] RDW SD 44.5 fl High 35.1-43.9 [facility] Comment on above: Order Comment: Order Date: 08/11/24 Order Info: 0184-1 - CBCD Performed By: #### L 500.4050, L100.0100 #### [facility] [address] [place], [address] WBC (Bld) [#/Vol] 6.5 10*3/uL Normal 4.4-11.0 [facility] Comment on above: Order Comment: Order Date: 08/11/24 Order Info: 0184-1 - CBCD Performed By: #### L 500.4050, L100.0100 #### [facility] [address] [place], [address] Carbon dioxide measurementOr dered By: Tyler Benitez on 08-11-2024 CO2 [Moles/Vol] 27.0 mmol/L 21.0-32.0 [facility] Chloride measurementOrdered By: Tyler Benitez on 08-11-2024 Chloride [Moles/Vol] 108 mmol/L High 98-107 [facility] Comprehensive Metabolic Prof ilon 08-11-2024 Albumin [Mass/Vol] 3.2 g/dL Normal 3.2-5.0 [facility] Comment on above: Order Comment: Order Date: 08/11/24 Order Info: 0786-1 - CMP Performed By: #### L 500.4050, L100.0100 #### [facility] [address] [place], [address] Albumin/Globulin [Mass ratio] 0.8 {ratio} Low 0.9-2.4 [facility] Comment on above: Order Comment: Order Date: 08/11/24 Order Info: 0786-1 - CMP Performed By: #### L 500.4050, L100.0100 #### [facility] [address] [place], [address] ALK P 86 U/L Normal 45-117 [facility] Comment on above: Order Comment: Order Date: 08/11/24 Order Info: 0786-1 - CMP Performed By: #### L 500.4050, L100.0100 #### [facility] [address] [place], [address] ALT [Catalytic activity/Vol] 13 U/L Normal 13-56 [facility] Comment on above: Order Comment: Order Date: 08/11/24 Order Info: 0786-1 - CMP Performed By: #### L 500.4050, L100.0100 #### [facility] [address] [place], [address] AST [Catalytic activity/Vol] 13 U/L Low 15-37 [facility] Comment on above: Order Comment: Order Date: 08/11/24 Order Info: 0786-1 - CMP Performed By: #### L 500.4050, L100.0100 #### [facility] [address] [place], [address] Bilirubin [Mass/Vol] 0.30 mg/dL Normal 0.20-1.00 [facility] Comment on above: Order Comment: Order Date: 08/11/24 Order Info: 0786-1 - CMP Result Comment: For patients on eltrombopag therapy, use of Dimension Salol TBIL is not recommended. Performed By: #### L 500.4050, L100.0100 #### [facility] [address] [place], [address] BUN/CRE 16.0 RATIO Normal 10-20 [facility] Comment on above: Order Comment: Order Date: 08/11/24 Order Info: 0786-1 - CMP Performed By: #### L 500.4050, L100.0100 #### [facility] [address] [place], [address] [place],Total 9.6 mg/dL Normal 8.5-10.1 [facility] Comment on above: Order Comment: Order Date: 08/11/24 Order Info: 0786-1 - CMP Performed By: #### L 500.4050, L100.0100 #### [facility] [address] [place], [address] Chloride [Moles/Vol] 108 mmol/L High 98-107 [facility] Comment on above: Order Comment: Order Date: 08/11/24 Order Info: 0786-1 - CMP Performed By: #### L 500.4050, L100.0100 #### [facility] [address] [place], [address] CO2 [Moles/Vol] 27.0 mmol/L Normal 21.0-32.0 [facility] Comment on above: Order Comment: Order Date: 08/11/24 Order Info: 0786-1 - CMP Performed By: #### L 500.4050, L100.0100 #### [facility] [address] [place], [address] Creatinine [Mass/Vol] 1.00 mg/dL Normal 0.55-1.02 [facility] Comment on above: Order Comment: Order Date: 08/11/24 Order Info: 0786-1 - CMP Result Comment: The validity of the calculated GFR GFRAA in patients over 70 years has not been determined. Clinical correlation is essential. Performed By: #### L 500.4050, L100.0100 #### [facility] [address] [place], [address] EST GFR - AA 68 mL/min Normal >60 [facility] Comment on above: Order Comment: Order Date: 08/11/24 Order Info: 0786-1 - CMP Result Comment: Afri can [place] GFR Calc Performed By: #### L 500.4050, L100.0100 #### [facility] [address] [place], [address] GAP 4 Low 5-15 [facility] Comment on above: Order Comment: Order Date: 08/11/24 Order Info: 0786-1 - CMP Performed By: #### L 500.4050, L100.0100 #### [facility] [address] [place], [address] GFR/1.73 sq M.predicted among non-blacks MDRD (S/P/Bld) [Vol rate/Area] 56 mL/min/{1.73_m2} Low >60 [facility] Comment on above: Order Comment: Order Date: 08/11/24 Order Info: 0786-1 - CMP Result Comment: Non- GFR Calc Performed By: #### L 500.4050, L100.0100 #### [facility] [address] [place], [address] Globulin (S) [Mass/Vol] 4.2 g/dL Normal 2.2-4.[address] [facility] Comment on above: Order Comment: Order Date: 08/11/24 Order Info: 0786-1 - CMP Performed By: #### L 500.4050, L100.0100 #### [facility] [address] [place], [address] Glucose [Mass/Vol] 91 mg/dL Normal 74-106 [facility] Comment on above: Order Comment: Order Date: 08/11/24 Order Info: 0786-1 - CMP Performed By: #### L 500.4050, L100.0100 #### [facility] [address] [place], [address] Potassium [Moles/Vol] 3.9 mmol/L Normal 3.5-5.1 [facility] Comment on above: Order Comment: Order Date: 08/11/24 Order Info: 0786-1 - CMP Performed By: #### L 500.4050, L100.0100 #### [facility] [address] [place], [address] Sodium [Moles/Vol] 139 mmol/L Normal 136-145 [facility] Comment on above: Order Comment: Order Date: 08/11/24 Order Info: 0786-1 - CMP Performed By: #### L 500.4050, L100.0100 #### [facility] [address] [place], [address] T PROT 7.4 g/dL Normal 6.4-8.2 [facility] Comment on above: Order Comment: Order Date: 08/11/24 Order Info: 0786-1 - CMP Performed By: #### L 500.4050, L100.0100 #### [facility] [address] [place], [address] Urea nitrogen [Mass/Vol] 16 mg/dL Normal 7-18 [facility] Comment on above: Order Comment: Order Date: 08/11/24 Order Info: 0786-1 - CMP Performed By: #### L 500.4050, L100.0100 #### [facility] [address] [place], [address] Eosinophil percentageOrdered By: Tyler Benitez on 08-11-2024 Eosinophils/100 WBC (Bld) 3.2 % 0-5 [facility] Erythrocyte distribution wid th ratioOrdered By: Tyler Benitez on 08-11-2024 Erythrocyte distribution width (RBC) [Ratio] 13.7 % 11.6-14.6 [facility] Erythrocyte distribution wid th standard deviationOrdered By: Tyler Benitez on 08-11-2024 Erythrocyte distribution width (RBC) [Entitic vol] 44.5 fL High 35.1-43.9 [facility] Estimated glomerular filtrat ion rate (GFR) AmericanOrdered By: Tyler Benitez on 08-11-2024 Estimated GFR (MDRD) Amer 68 mL/min >60 [facility] Comment on above: GFR Calc Glomerular filtration rate ( GFR) estimationOrdered By: Tyler Benitez on 08-11-2024 Estimated GFR (MDRD) Non-Af Amer 56 mL/min Low >60 [facility] Comment on above: Non- GFR Calc Glucose measurementOrdered B y: Tyler Benitez on 08-11-2024 Glucose [Mass/Vol] 91 mg/dL 74-106 [facility] Hematocrit Auto (Bld) [Volum e fraction]Ordered By: Tyler Benitez on 08-11-2024 Hematocrit (Bld) [Volume fraction] 39.7 % 37-47 [facility] Hemoglobin measurementOrdere d By: Tyler Benitez on 08-11-2024 Hemoglobin (Bld) [Mass/Vol] 12.3 g/dL 12.0-15.0 [facility] Immature granulocytes/100 WB C Auto (Bld)Ordered By: Tyler Benitez on 08-11-2024 Immature granulocytes/100 WBC (Bld) 0.000 % 0.0-0.9 [facility] Comment on above: IG% - Immature Granu locytes (promyelocytes, myelocytes and metamyelocytes) > 1% indicates that a LEFT SHIFT is Present. Laboratory - Chemistry and C hemistry - challengeOrdered By: Tyler Benitez on 08-11-2024 AST [Catalytic activity/Vol] 13 U/L Low 15-37 [facility] Lymphocytes Auto (Unsp spec) [#/Vol]Ordered By: Tyler Benitez on 08-11-2024 Lymphocytes (Bld) [#/Vol] 1.51 10*3/uL 0.83-4.51 [facility] Lymphocytes/100 WBC Auto (Un sp spec)Ordered By: Tyler Benitez on 08-11-2024 Lymphocytes/100 WBC (Bld) 23.2 % 19-41 [facility] MCV (mean corpuscular volume ) determinationOrdered By: Tyler Benitez on 08-11-2024 MCV (RBC) [Entitic vol] 88.6 fL 81-[address] [facility] Mean corpuscular hemoglobin (MCH) determinationOrdered By: Tyler Benitez on 08-11-2024 MCH (RBC) [Entitic mass] 27.5 pg 27.0-32.0 [facility] Mean corpuscular hemoglobin concentration (MCHC) determinationOrdered By: Tyler Benitez on 08-11-2024 MCHC (RBC) [Mass/Vol] 31.0 g/dL Low 32-36 [facility] Mean platelet volume determi nationOrdered By: Tyler Benitez on 08-11-2024 Platelet mean volume (Bld) [Entitic vol] 10.5 fL 6.2-12.0 [facility] Monocyte percentageOrdered B y: Tyler Benitez on 08-11-2024 Monocytes/100 WBC (Bld) 8.6 % 0-[address] [facility] Neutrophil percentageOrdered By: Tyler Benitez on 08-11-2024 Neutrophils/100 WBC (Bld) 64.4 % 47-70 [facility] Nucleated red blood cell per centageOrdered By: Tyler Benitez on 08-11-2024 Nucleated RBC/100 WBC (Bld) [Ratio] 0 % 0-5 [facility] Orthopedic Visit Reporton Orthopedic Visit Report [facility] [address] [place] [id number] OFFICE VISIT Date of Service: 08/11/24 MR#: [id number] Acct: [id number] Name: AMBER KOROMA Rep #: [id number] : 1940 Provider: Dr. Alphonso rock MD Age/Sex: 84/F Location: [facility] Status: Signed with Addenda ADDENDUM by Angelita [...] Performing Provider: Alphonso Newell MD Performing Location: [facility] Administered by: Alphonso Newell MD on 08/11/24 16:10 Dose Route Admin Location Dispensed Lot Number Expiration Date [facility] Man ufacturer 20 mg intra-articular right knee 2 mL [id number] 07/20/25 [address]-5 [employer] Date cc: * Signed Intake Vital Signs 08/06/24 10:10 Height 4 ft 11 in Intake Visit Reasons: RIGHT KNEE Chief Complaint: Cough Allergies adhesive Allergy (Verified 07/14/24 13:19) Hives dicyclomine HCl (From Bentyl) Allergy (Verified 07/14/24 13:19) Hives aspirin Adverse Reaction (Verified 07/14/24 13:19) Low platelets Have you fallen in the past year?: No (?) [facility] Medical History Osteoarthritis of right knee Abdominal pain COVID-19 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 Normal [facility] Platelet countOrdered By: Silvio Benitez on 08-11-2024 Platelets (Bld) [#/Vol] 220 10*3/uL 150-450 [facility] Potassium measurementOrdered By: Tyler Benitez on 08-11-2024 Potassium [Moles/Vol] 3.9 mmol/L 3.5-5.1 [facility] RBC Auto (Bld) [#/Vol]Ordere d By: Tyler Benitez on 08-11-2024 RBC (Bld) [#/Vol] 4.48 10*6/uL 4.2-5.4 [facility] Serum anion gap measurementO rdered By: Tyler Benitez on 08-11-2024 Anion gap [Moles/Vol] 4 mmol/L Low 5-15 [facility] Serum globulin measurementOr dered By: Tyler Benitez on 08-11-2024 Globulin (S) [Mass/Vol] 4.2 g/dL 2.2-4.2 [facility] Serum or plasma alanine welch otransferase (ALT) measurementOrdered By: Tyler Benitez on 08-11-2024 ALT [Catalytic activity/Vol] 13 U/L 13-56 [facility] Serum or plasma albumin lakeisha urement (mass/volume)Ordered By: Tyler Benitez on 08-11-2024 Albumin [Mass/Vol] 3.2 g/dL 3.2-5.0 [facility] Serum or plasma alkaline vania sphatase measurementOrdered By: Tyler Benitez on 08-11-2024 ALP [Catalytic activity/Vol] 86 U/L 45-117 [facility] Serum or plasma calcium lakeisha urement (mass/volume)Ordered By: Tyler Benitez on 08-11-2024 Calcium [Mass/Vol] 9.6 mg/dL 8.5-10.1 [facility] Serum or plasma creatinine m easurement (mass/volume)Ordered By: Tyler Benitez on 08-11-2024 Creatinine [Mass/Vol] 1.00 mg/dL 0.55-1.02 [facility] Comment on above: The validity of the calculated GFR & GFRAA in patients over 70 years has not been determined. Clinical correlation is essential. Serum or plasma urea nitroge n measurement (mass/volume)Ordered By: Tyler Benitez on 08-11-2024 Urea nitrogen [Mass/Vol] 16 mg/dL 7-18 [facility] Sodium levelOrdered By: Tyler Benitez on 08-11-2024 Sodium [Moles/Vol] 139 mmol/L 136-145 [facility] Total proteinOrdered By: Reyna Benitez on 08-11-2024 Protein [Mass/Vol] 7.4 g/dL 6.4-8.2 [facility] White blood cell (WBC) count Ordered By: Tyler Benitez on 08-11-2024 WBC (Bld) [#/Vol] 6.5 10*3/uL 4.4-11.0 [facility] [id number] 07-17-2024 [id number] O ID: [id number] Author: PRERNA BONDS PT Service: ? Author Type: Physical Therapist Type: [id number] Filed: 07/17/2024 17:12 Note Text: [facility] Rehabilitation and Sports Therapy Physical Therapy Plan of Care Certification Patient Name: Amber Koroma : 1940 [facility] #: [id number] Date: 07/17/2024 To: Chhaya Stacy MD From [...] Patient to be seen for Therapeutic exercise (30050), Manual therapy (75087), Self-senior care management (82158), Patient/Family/Caregiver Education PLAN FOR NEXT VISIT: LE volume measurements. Continue MLD and short-stretch bandaging. Facilitate pt obtaining inelastic wraps to improve self-management and skin condition (able to remove to bathe, etc.). For further details regarding this patient refer to the Physical Therapy electronically documented visit dated 07/17/2024. Provider Attestation I have reviewed the treatment plan for Amber Koroma, CC# [id number] for the period of 09/16/24 -- , established on 07/17/2024. Signature certifies the need for therapy services. Normal [facility] CNTHERAPYon 07-17-2024 CNTHERAPY OT/PT/Speech Visit ( PTWS) AMBER KOROMA ([id number]) 1940 F Date Time Provider Department 07/17/24 2:45 PM PRERNA BONDS PTWS Date Time Provider Department Center 07/17/2024 2:45 PM [id number] BONDS PTWS [place] Reason for Visit: [...] by mouth once daily. Letter Text Normal [facility] Orthopedic Visit Reporton Orthopedic Visit Report [facility] [address] [place] [address] OFFICE VISIT Date of Service: 07/14/24 MR#: [id number] Acct: [id number] Name: AMBER KOROMA Rep #: [id number] : 1940 Provider: Dr. 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 AMBER OKROMA is a 83 year old F here [...] No erythema, (more content not included)... Normal [facility] CNTHERAPYon 07-10-2024 CNTHERAPY OT/PT/Speech Visit ( PTWS) AMBER KOROMA ([id number]) 1940 F Date Time Provider Department 07/10/24 2:45 PM PRERNA BONDS PTWS Date Time Provider Department Center 07/10/2024 2:45 PM [id number] BONDS PTWS [place] Reason for Visit: Physical Therapy [503] [...] 1,000 Units by mouth once daily. Normal [facility] CNTHERAPYon 06-24-2024 CNTHERAPY OT/PT/Speech Visit ( PTWS) AMBER KOROMA ([id number]) 1940 F Date Time Provider Department 06/24/24 4:00 PM VAMSHI PRERNA PTWS Date Time Provider Department Center 06/24/2024 4:00 PM [id number] PRERNA PTWS [place] Reason for Visit: [...] 1,000 Units by mouth once daily. Normal [facility] CNTHERAPYon 06-19-2024 CNTHERAPY OT/PT/Speech Visit ( PTWS) AMBER KOROMA ([id number]) 1940 F Date Time Provider Department 06/19/24 2:45 PM PRERNA BONDS PTWS Date Time Provider Department Center 06/19/2024 2:45 PM [id number] BONDS PTWS [place] Reason for Visit: [...] 1,000 Units by mouth once daily. Normal [facility] 06-12-2024 CNPN Telephone (PTWS) AMBER KOROMA ([id number]) 1940 F Date Time Provider Department 06/12/24 [...] only keep Saturday's visit (06/19) because her wagon driver salesperson can only take her on Fridays. Later, she said she would call her wagon driver salesperson to see if she could bring her [...] Endometrial cancer [C54.1] 03/19/2011 Cyst in hand [[id number]] 08/02/2011 Personal history of malignant neoplasm of [...] Status:Closed by PRERNA BONDS on 06/12/24 Normal [facility] CNTHERAPYon 05-29-2024 CNTHERAPY OT/PT/Speech Visit ( PTWS) AMBER KOROMA ([id number]) 1940 F Date Time Provider Department 05/29/24 2:45 PM PRERNA BONDS PTWS Date Time Provider Department Center 05/29/2024 2:45 PM [id number] BONDS PTWS [place] Reason for Visit: [...] 1,000 Units by mouth once daily. Normal [facility] [id number] 05-25-2024 [id number] HNO ID: [id number] Author: PRERNA BONDS PT Service: ? Author Type: Physical Therapist Type: [id number] Filed: 05/25/2024 20:15 Note Text: [facility] Rehabilitation and Sports Therapy Physical Therapy Plan of Care Certification Patient Name: Amber Koroma : 1940 CC #: [id number] Date: 05/22/2024 To: Tyler Benitez MD From [...] Patient to be seen for Therapeutic exercise (58230), Manual therapy (62002), Self-senior care management (65107), Patient/Family/Caregiver Education PLAN FOR NEXT VISIT: Continue MLD and compression wrapping. measure leg volume next visit. Continue to facilitate pt obtaining self-managable compression prior to discharge end of May. For further details regarding this patient refer to the Physical Therapy electronically documented visit dated 05/22/2024. Provider Attestation I have reviewed the treatment plan for Amber KoromaMITESH# [id number] for the period of 04/17/24 -- 06/21/24, established on 05/22/2024. Signature certifies the need for therapy services. Normal [facility] CNTHERAPYon 05-22-2024 CNTHERAPY OT/PT/Speech Visit ( PTWS) AMBER KORMOA ([id number]) 1940 F Date Time Provider Department 05/22/24 2:45 PM PRERNA BONDS PTWS Date Time Provider Department Center 05/22/2024 2:45 PM [id number] BONDS PTWS [place] Reason for Visit: [...] once daily. Letter Text Letter Text Normal [facility] CNTHERAPYon 05-08-2024 CNTHERAPY OT/PT/Speech Visit ( PTWS) AMBER KOROMA ([id number]) 1940 F Date Time Provider Department 05/08/24 2:45 PM PRERNA BONDS PTWS Date Time Provider Department Center 05/08/2024 2:45 PM [id number] BONDS PTWS [place] Reason for Visit: [...] 1,000 Units by mouth once daily. Normal [facility] CNTHERAPYon 04-24-2024 CNTHERAPY OT/PT/Speech Visit ( PTWS) AMBER KOROMA ([id number]) 1940 F Date Time Provider Department 04/24/24 2:45 PM PRERNA BONDS PTWS Date Time Provider Department Center 04/24/2024 2:45 PM [id number] BONDS PTWS [place] Reason for Visit: [...] 1,000 Units by mouth once daily. Normal [facility] CNTHERAPYon 04-17-2024 CNTHERAPY OT/PT/Speech Visit ( PTWS) AMBER KOROMA ([id number]) 1940 F Date Time Provider Department 04/17/24 1:00 PM PRERNA BONDS PTWS Date Time Provider Department Center 04/17/2024 1:00 PM [id number] BONDS PTWS [place] Reason for Visit: [...] 1,000 Units by mouth once daily. Normal [facility] Absolute lymphocyte countOrd ered By: Tyler Benitez on 12-17-2023 Lymphocytes Auto (Unsp spec) [#/Vol] 0.86 10*3/uL 0.83-4.51 [facility] Automated lymphocyte count a s percentage of total leukocytesOrdered By: Tyler Benitez on 12-17-2023 Lymphocytes/100 WBC Auto (Unsp spec) 10.6 % 19-41 [facility] Basophil percentageOrdered B y: Tyler Benitez on 12-17-2023 Basophils/100 WBC (Bld) 0.4 % 0-1 [facility] Bilirubin [Mass/Vol] 0.40 mg/dL 0.20-1.00 [facility] Comment on above: For patients on eltr ombopag therapy, use of Dimension Salol TBIL is not recommended. Chloride [Moles/Vol] 108 mmol/L 98-107 [facility] Eosinophils/100 WBC (Bld) 1.9 % 0-5 [facility] Glucose [Mass/Vol] 113 mg/dL 74-106 [facility] Comment on above: Fasting Glucose resu lt from 100 to 125 mg/dL suggests IMPAIRED HOMEOSTASIS per A.D.A. criteria. Hemoglobin (Bld) [Mass/Vol] 11.7 g/dL 12.0-15.0 [facility] Monocytes/100 WBC (Bld) 9.6 % 0-10 [facility] Neutrophils (Bld) [#/Vol] 6.3 10*3/uL 2.0-7.7 [facility] Neutrophils/100 WBC (Bld) 77.3 % 47-70 [facility] Potassium [Moles/Vol] 3.8 mmol/L 3.5-5.1 [facility] Protein [Mass/Vol] 7.1 g/dL 6.4-8.2 [facility] Sodium [Moles/Vol] 140 mmol/L 136-145 [facility] WBC (Bld) [#/Vol] 8.1 10*3/uL 4.4-11.0 [facility] Determination of erythrocyte mean corpuscular volume (MCV)Ordered By: Tyler Benitez on 12-17-2023 MCV (RBC) [Entitic vol] 88.3 fL 81-99 [facility] Erythrocyte distribution wid th ratioOrdered By: Tyler Benitez on 12-17-2023 Erythrocyte distribution width (RBC) [Ratio] 14.5 % 11.6-14.6 [facility] Erythrocyte distribution wid th standard deviationOrdered By: Tyler Benitez on 12-17-2023 Erythrocyte distribution width (RBC) [Entitic vol] 46.5 fL 35.1-43.9 [facility] Hematocrit Auto (Bld) [Volum e fraction]Ordered By: Tyler Benitez on 12-17-2023 Hematocrit (Bld) [Volume fraction] 37.6 % 37-47 [facility] Immature granulocytes/100 WB C Auto (Bld)Ordered By: Tyler Benitez on 12-17-2023 Immature granulocytes/100 WBC (Bld) 0.200 % 0.0-0.9 [facility] Comment on above: IG% - Immature Granu locytes (promyelocytes, myelocytes and metamyelocytes) > 1% indicates that a LEFT SHIFT is Present. Laboratory - Chemistry and C hemistry - challengeOrdered By: Tyler Benitez on 12-17-2023 Albumin/Globulin [Mass ratio] 0.7 {ratio} 0.9-2.4 [facility] ALP [Catalytic activity/Vol] 86 U/L 45-117 [facility] ALT [Catalytic activity/Vol] 12 U/L 13-56 [facility] CO2 [Moles/Vol] 28.0 mmol/L 21.0-32.0 [facility] Globulin (S) [Mass/Vol] 4.2 g/dL 2.2-4.2 [facility] Magnesium [Mass/Vol] 2.3 mg/dL 1.6-2.6 [facility] Natriuretic peptide B (Bld) [Mass/Vol] 119.1 pg/mL 0-100 [facility] Urea nitrogen/Creatinine [Mass ratio] 12.9 mg/mg 10-20 [facility] Laboratory - Hematology and Cell countsOrdered By: Tyler Benitez on 12-17-2023 MCH (RBC) [Entitic mass] 27.5 pg 27.0-32.0 [facility] MCHC (RBC) [Mass/Vol] 31.1 g/dL 32-36 [facility] Nucleated RBC/100 WBC (Bld) [Ratio] 0 % 0-5 [facility] Platelet mean volume (Bld) [Entitic vol] 10.3 fL 6.2-12.0 [facility] Platelets (Bld) [#/Vol] 187 10*3/uL 150-450 [facility] No Panel InformationOrdered By: Tyler Benitez on 12-17-2023 Estimated GFR (MDRD) Amer 57 mL/min >60 [facility] Comment on above: GFR Calc Estimated GFR (MDRD) Non-Af Amer 47 mL/min >60 [facility] Comment on above: Non- GFR Calc RBC Auto (Bld) [#/Vol]Ordere d By: Tyler Benitez on 12-17-2023 RBC (Bld) [#/Vol] 4.26 10*6/uL 4.2-5.4 [facility] Serum or plasma calcium lakeisha urement (mass/volume)Ordered By: Tyler Benitez on 12-17-2023 Calcium [Mass/Vol] 9.1 mg/dL 8.5-10.1 [facility] Serum or plasma creatinine m easurement (mass/volume)Ordered By: Tyler Benitez on 12-17-2023 Creatinine [Mass/Vol] 1.16 mg/dL 0.55-1.02 [facility] Comment on above: The validity of the calculated GFR & GFRAA in patients over 70 years has not been determined. Clinical correlation is essential. Serum or plasma urea nitroge n measurement (mass/volume)Ordered By: Tyler Benitez on 12-17-2023 Urea nitrogen [Mass/Vol] 15 mg/dL 7-18 [facility] Thin prep Papanicolaou smear with manual screeningOrdered By: Tyler Benitez on 12-17-2023 Thin prep Papanicolaou smear with manual screening 2.9 g/dL 3.2-5.0 [facility] Thin prep Papanicolaou smear with manual screening 12 U/L 15-37 [facility] Thin prep Papanicolaou smear with manual screening 4 5-15 [facility] No Panel Informationon 08-29 Influenza Types A,B Rapid (Clinic) Negative [facility] POC SARS CoV-2 Antigen Negative [facility] Absolute lymphocyte countOrd ered By: Tyler Bneitez on 07-01-2023 Lymphocytes Auto (Unsp spec) [#/Vol] 1.24 10*3/uL 0.83-4.51 [facility] Basophil percentageOrdered B y: Tyler Benitez on 07-01-2023 Basophils/100 WBC (Bld) 0.9 % 0-[address] [facility] Bilirubin [Mass/Vol] 0.20 mg/dL 0.20-1.00 [facility] Comment on above: For patients on eltr ombopag therapy, use of Dimension Salol TBIL is not recommended. Chloride [Moles/Vol] 105 mmol/L 98-107 [facility] Eosinophils/100 WBC (Bld) 2.5 % 0-5 [facility] Glucose [Mass/Vol] 94 mg/dL 74-106 [facility] Neutrophils (Bld) [#/Vol] 3.6 10*3/uL 2.0-7.7 [facility] Neutrophils/100 WBC (Bld) 63.7 % 47-70 [facility] Potassium [Moles/Vol] 3.9 mmol/L 3.5-5.1 [facility] Protein [Mass/Vol] 7.3 g/dL 6.4-8.2 [facility] Sodium [Moles/Vol] 139 mmol/L 136-145 [facility] WBC (Bld) [#/Vol] 5.6 10*3/uL 4.4-11.0 [facility] Blood erythrocytes count (nu mber/volume)Ordered By: Tyler Benitez on 07-01-2023 RBC (Bld) [#/Vol] 3.98 10*6/uL 4.2-5.4 [facility] Blood hemoglobin measurement (mass/volume)Ordered By: Tyler Benitez on 07-01-2023 Hemoglobin (Bld) [Mass/Vol] 11.1 g/dL 12.0-15.0 [facility] Blood lymphocytes/100 leukoc ytesOrdered By: Tyler Benitez on 07-01-2023 Lymphocytes/100 WBC (Bld) 22.0 % 19-41 [facility] Blood monocytes/100 leukocyt esOrdered By: Tyler Benitez on 07-01-2023 Monocytes/100 WBC (Bld) 10.5 % 0-10 [facility] Blood platelet mean volumeOr dered By: Tyler Benitez on 07-01-2023 Platelet mean volume (Bld) [Entitic vol] 10.3 fL 6.2-12.0 [facility] Determination of erythrocyte mean corpuscular volume (MCV)Ordered By: Tyler Benitez on 07-01-2023 MCV (RBC) [Entitic vol] 89.9 fL 81-99 [facility] Hematocrit Auto (Bld) [Volum e fraction]Ordered By: Tyler Benitez on 07-01-2023 Hematocrit (Bld) [Volume fraction] 35.8 % 37-47 [facility] Laboratory - Chemistry and C hemistry - challengeOrdered By: Tyler Benitez on 07-01-2023 ALP [Catalytic activity/Vol] 83 U/L 45-117 [facility] ALT [Catalytic activity/Vol] 13 U/L 13-56 [facility] CO2 [Moles/Vol] 28.0 mmol/L 21.0-32.0 [facility] Globulin (S) [Mass/Vol] 4.4 g/dL 2.2-4.2 [facility] Magnesium [Mass/Vol] 2.5 mg/dL 1.6-2.6 [facility] Urea nitrogen/Creatinine [Mass ratio] 14.6 mg/mg 10-20 [facility] Laboratory - Hematology and Cell countsOrdered By: Tyler Benitez on 07-01-2023 Erythrocyte distribution width (RBC) [Entitic vol] 50.4 fL 35.1-43.9 [facility] Erythrocyte distribution width (RBC) [Ratio] 15.2 % 11.6-14.6 [facility] Immature granulocytes/100 WBC (Bld) 0.400 % 0.0-0.9 [facility] Comment on above: IG% - Immature Granu locytes (promyelocytes, myelocytes and metamyelocytes) > 1% indicates that a LEFT SHIFT is Present. MCH (RBC) [Entitic mass] 27.9 pg 27.0-32.0 [facility] Nucleated RBC/100 WBC (Bld) [Ratio] 0 % 0-5 [facility] MCHC Auto (RBC) [Mass/Vol]Or dered By: Tyler Benitez on 07-01-2023 MCHC (RBC) [Mass/Vol] 31.0 g/dL 32-36 [facility] No Panel InformationOrdered By: Tyler Benitez on 07-01-2023 Estimated GFR (MDRD) Amer 71 mL/min >60 [facility] Comment on above: GFR Calc Estimated GFR (MDRD) Non-Af Amer 59 mL/min >60 [facility] Comment on above: Non- GFR Calc Platelets bldOrdered By: Reyna Benitez on 07-01-2023 Platelets (Bld) [#/Vol] 221 10*3/uL 150-450 [facility] Serum or plasma albumin lakeisha urement (mass/volume)Ordered By: Tyler Benitez on 07-01-2023 Albumin [Mass/Vol] 2.9 g/dL 3.2-5.0 [facility] Serum or plasma albumin/glob ulin mass ratioOrdered By: Tyler Benitez on 07-01-2023 Albumin/Globulin [Mass ratio] 0.7 {ratio} 0.9-2.4 [facility] Serum or plasma calcium lakeisha urement (mass/volume)Ordered By: Tyler Benitez on 07-01-2023 Calcium [Mass/Vol] 9.1 mg/dL 8.5-10.1 [facility] Serum or plasma creatinine m easurement (mass/volume)Ordered By: Tyler Benitez on 07-01-2023 Creatinine [Mass/Vol] 0.96 mg/dL 0.55-1.02 [facility] Comment on above: The validity of the calculated GFR & GFRAA in patients over 70 years has not been determined. Clinical correlation is essential. Serum or plasma urea nitroge n measurement (mass/volume)Ordered By: Tyler Benitez on 07-01-2023 Urea nitrogen [Mass/Vol] 14 mg/dL 7-18 [facility] Thin prep Papanicolaou smear with manual screeningOrdered By: Tyler Benitez on 07-01-2023 Thin prep Papanicolaou smear with manual screening 14 U/L 15-37 [facility] Thin prep Papanicolaou smear with manual screening 6 5-15 [facility] Basophil percentageOrdered B y: Tyler Benitez on 06-18-2023 Chloride [Moles/Vol] 105 mmol/L 98-107 [facility] Glucose [Mass/Vol] 99 mg/dL 74-106 [facility] Potassium [Moles/Vol] 4.3 mmol/L 3.5-5.1 [facility] Sodium [Moles/Vol] 138 mmol/L 136-145 [facility] Laboratory - Chemistry and C hemistry - challengeOrdered By: Tyler Benitez on 06-18-2023 CO2 [Moles/Vol] 28.0 mmol/L 21.0-32.0 [facility] Urea nitrogen/Creatinine [Mass ratio] 15.7 mg/mg 10-20 [facility] No Panel InformationOrdered By: Tyler Benitez on 06-18-2023 Estimated GFR (MDRD) Amer 40 mL/min >60 [facility] Comment on above: GFR Calc Estimated GFR (MDRD) Non-Af Amer 33 mL/min >60 [facility] Comment on above: Non- GFR Calc Serum or plasma calcium lakeisha urement (mass/volume)Ordered By: Tyler Benitez on 06-18-2023 Calcium [Mass/Vol] 9.3 mg/dL 8.5-10.1 [facility] Serum or plasma creatinine m easurement (mass/volume)Ordered By: Tyler Benitez on 06-18-2023 Creatinine [Mass/Vol] 1.59 mg/dL 0.55-1.02 [facility] Comment on above: The validity of the calculated GFR & GFRAA in patients over 70 years has not been determined. Clinical correlation is essential. Serum or plasma urea nitroge n measurement (mass/volume)Ordered By: Tyler Benitez on 06-18-2023 Urea nitrogen [Mass/Vol] 25 mg/dL 7-18 [facility] Thin prep Papanicolaou smear with manual screeningOrdered By: Tyler Benitez on 06-18-2023 Thin prep Papanicolaou smear with manual screening 5 5-15 [facility] Basophil percentageOrdered B y: Tyler Benitez on 06-10-2023 Chloride [Moles/Vol] 98 mmol/L 98-107 [facility] Glucose [Mass/Vol] 90 mg/dL 74-106 [facility] Potassium [Moles/Vol] 4.2 mmol/L 3.5-5.1 [facility] Sodium [Moles/Vol] 133 mmol/L 136-145 [facility] Laboratory - Chemistry and C hemistry - challengeOrdered By: Tyler Benitez on 06-10-2023 CO2 [Moles/Vol] 27.0 mmol/L 21.0-32.0 [facility] Magnesium [Mass/Vol] 2.8 mg/dL 1.6-2.6 [facility] Urea nitrogen/Creatinine [Mass ratio] 10.1 mg/mg 10-20 [facility] No Panel InformationOrdered By: Tyler Benitez on 06-10-2023 Estimated GFR (MDRD) Amer 17 mL/min >60 [facility] Comment on above: GFR Calc Estimated GFR (MDRD) Non-Af Amer 14 mL/min >60 [facility] Comment on above: Non- GFR Calc Serum or plasma calcium lakeisha urement (mass/volume)Ordered By: Tyler Benitez on 06-10-2023 Calcium [Mass/Vol] 9.5 mg/dL 8.5-10.1 [facility] Serum or plasma creatinine m easurement (mass/volume)Ordered By: Tyler Benitez on 06-10-2023 Creatinine [Mass/Vol] 3.36 mg/dL 0.55-1.02 [facility] Comment on above: The validity of the calculated GFR & GFRAA in patients over 70 years has not been determined. Clinical correlation is essential. Serum or plasma urea nitroge n measurement (mass/volume)Ordered By: Tyler Benitez on 06-10-2023 Urea nitrogen [Mass/Vol] 34 mg/dL 7-18 [facility] Thin prep Papanicolaou smear with manual screeningOrdered By: Tyler Benitez on 06-10-2023 Thin prep Papanicolaou smear with manual screening 8 5-15 [facility] Basophil percentageOrdered B y: Tyler Benitez on 06-03-2023 Chloride [Moles/Vol] 102 mmol/L 98-107 [facility] Glucose [Mass/Vol] 89 mg/dL 74-106 [facility] Potassium [Moles/Vol] 3.8 mmol/L 3.5-5.1 [facility] Sodium [Moles/Vol] 136 mmol/L 136-145 [facility] Laboratory - Chemistry and C hemistry - challengeOrdered By: Tyler Benitez on 06-03-2023 CO2 [Moles/Vol] 28.0 mmol/L 21.0-32.0 [facility] Urea nitrogen/Creatinine [Mass ratio] 18.7 mg/mg 10-20 [facility] No Panel InformationOrdered By: Tyler Benitez on 06-03-2023 Estimated GFR (MDRD) Amer 63 mL/min >60 [facility] Comment on above: GFR Calc Estimated GFR (MDRD) Non-Af Amer 52 mL/min >60 [facility] Comment on above: Non- GFR Calc Serum or plasma calcium lakeisha urement (mass/volume)Ordered By: Tyler Benitez on 06-03-2023 Calcium [Mass/Vol] 9.3 mg/dL 8.5-10.1 [facility] Serum or plasma creatinine m easurement (mass/volume)Ordered By: Tyler Benitez on 06-03-2023 Creatinine [Mass/Vol] 1.07 mg/dL 0.55-1.02 [facility] Comment on above: The validity of the calculated GFR & GFRAA in patients over 70 years has not been determined. Clinical correlation is essential. Serum or plasma urea nitroge n measurement (mass/volume)Ordered By: Tyler Benitez on 06-03-2023 Urea nitrogen [Mass/Vol] 20 mg/dL 7-18 [facility] Thin prep Papanicolaou smear with manual screeningOrdered By: Tyler Benitez on 06-03-2023 Thin prep Papanicolaou smear with manual screening 6 5-15 [facility] Absolute lymphocyte countOrd ered By: Sage Augustin on 05-24-2023 Lymphocytes Auto (Unsp spec) [#/Vol] 0.36 10*3/uL 0.83-4.51 [facility] Basophil percentageOrdered B y: Sage Augustin on 05-24-2023 Basophils/100 WBC (Bld) 0.5 % 0-[address] [facility] Chloride [Moles/Vol] 108 mmol/L 98-107 [facility] Eosinophils/100 WBC (Bld) 2.5 % 0-5 [facility] Glucose [Mass/Vol] 100 mg/dL 74-106 [facility] Comment on above: Fasting Glucose resu lt from 100 to 125 mg/dL suggests IMPAIRED HOMEOSTASIS per A.D.A. criteria. Neutrophils (Bld) [#/Vol] 6.4 10*3/uL 2.0-7.7 [facility] Neutrophils/100 WBC (Bld) 85.4 % 47-70 [facility] Potassium [Moles/Vol] 4.6 mmol/L 3.5-5.1 [facility] Sodium [Moles/Vol] 138 mmol/L 136-145 [facility] WBC (Bld) [#/Vol] 7.5 10*3/uL 4.4-11.0 [facility] Blood erythrocytes count (nu mber/volume)Ordered By: Sage Augustin on 05-24-2023 RBC (Bld) [#/Vol] 4.14 10*6/uL 4.2-5.4 [facility] Blood hemoglobin measurement (mass/volume)Ordered By: Sage Augustin on 05-24-2023 Hemoglobin (Bld) [Mass/Vol] 11.5 g/dL 12.0-15.0 [facility] Blood lymphocytes/100 leukoc ytesOrdered By: Sage Augustin on 05-24-2023 Lymphocytes/100 WBC (Bld) 4.8 % 19-41 [facility] Blood manual differential co mment interpretation (narrative result)Ordered By: Sage Augustin on 05-24-2023 Manual differential comment Bryce (Bld) [Interp] COMMENT [facility] Comment on above: LYMPHOPENIA. Blood monocytes/100 leukocyt esOrdered By: Sage Augustin on 05-24-2023 Monocytes/100 WBC (Bld) 6.4 % 0-10 [facility] Blood platelet mean volumeOr dered By: Sage Augustin on 05-24-2023 Platelet mean volume (Bld) [Entitic vol] 9.8 fL 6.2-12.0 [facility] Determination of erythrocyte mean corpuscular volume (MCV)Ordered By: Sage Augustin on 05-24-2023 MCV (RBC) [Entitic vol] 90.3 fL 81-99 [facility] Hematocrit Auto (Bld) [Volum e fraction]Ordered By: Sage Augustin on 05-24-2023 Hematocrit (Bld) [Volume fraction] 37.4 % 37-47 [facility] Laboratory - Chemistry and C hemistry - challengeOrdered By: Sage Augustin on 05-24-2023 CO2 [Moles/Vol] 26.0 mmol/L 21.0-32.0 [facility] Urea nitrogen/Creatinine [Mass ratio] 15.3 mg/mg 10-20 [facility] Laboratory - Hematology and Cell countsOrdered By: Sage Augustin on 05-24-2023 Erythrocyte distribution width (RBC) [Entitic vol] 53.1 fL 35.1-43.9 [facility] Erythrocyte distribution width (RBC) [Ratio] 15.9 % 11.6-14.6 [facility] Immature granulocytes/100 WBC (Bld) 0.400 % 0.0-0.9 [facility] Comment on above: IG% - Immature Granu locytes (promyelocytes, myelocytes and metamyelocytes) > 1% indicates that a LEFT SHIFT is Present. MCH (RBC) [Entitic mass] 27.8 pg 27.0-32.0 [facility] Nucleated RBC/100 WBC (Bld) [Ratio] 0 % 0-5 [facility] MCHC Auto (RBC) [Mass/Vol]Or dered By: Sage Augustin on 05-24-2023 MCHC (RBC) [Mass/Vol] 30.7 g/dL 32-36 [facility] No Panel InformationOrdered By: Sage Augustin on 05-24-2023 Estimated Creatinine Clearance Calc 39.86 ml/min [facility] Estimated GFR (MDRD) Amer 47 mL/min >60 [facility] Comment on above: GFR Calc Estimated GFR (MDRD) Non-Af Amer 39 mL/min >60 [facility] Comment on above: Non- GFR Calc Platelets bldOrdered By: Katiuska Augustin on 05-24-2023 Platelets (Bld) [#/Vol] 216 10*3/uL 150-450 [facility] Serum or plasma calcium lakeisha urement (mass/volume)Ordered By: Sage Augustin on 05-24-2023 Calcium [Mass/Vol] 9.0 mg/dL 8.5-10.1 [facility] Serum or plasma creatinine m easurement (mass/volume)Ordered By: Sage Augustin on 05-24-2023 Creatinine [Mass/Vol] 1.37 mg/dL 0.55-1.02 [facility] Comment on above: The validity of the calculated GFR & GFRAA in patients over 70 years has not been determined. Clinical correlation is essential. Serum or plasma urea nitroge n measurement (mass/volume)Ordered By: Sage Augustin on 05-24-2023 Urea nitrogen [Mass/Vol] 21 mg/dL 7-18 [facility] Thin prep Papanicolaou smear with manual screeningOrdered By: Sage Augustin on 05-24-2023 Thin prep Papanicolaou smear with manual screening 4 5-15 [facility] Absolute lymphocyte countOrd ered By: Mariusz Waters on 04-16-2023 Lymphocytes Auto (Unsp spec) [#/Vol] 0.99 10*3/uL 0.83-4.51 [facility] Basophil percentageOrdered B y: Mariusz Waters on 04-16-2023 Basophil percentage 2.4 mg/dL 2.5-4.9 [facility] Basophils/100 WBC (Bld) 0.6 % 0-1 [facility] Chloride [Moles/Vol] 102 mmol/L 98-107 [facility] Eosinophils/100 WBC (Bld) 2.5 % 0-5 [facility] Glucose [Mass/Vol] 98 mg/dL 74-106 [facility] Neutrophils (Bld) [#/Vol] 4.3 10*3/uL 2.0-7.7 [facility] Neutrophils/100 WBC (Bld) 67.3 % 47-70 [facility] Potassium [Moles/Vol] 3.8 mmol/L 3.5-5.1 [facility] Sodium [Moles/Vol] 139 mmol/L 136-145 [facility] WBC (Bld) [#/Vol] 6.4 10*3/uL 4.4-11.0 [facility] Blood erythrocytes count (nu mber/volume)Ordered By: Mariusz Waters on 04-16-2023 RBC (Bld) [#/Vol] 3.52 10*6/uL 4.2-5.4 [facility] Blood hemoglobin measurement (mass/volume)Ordered By: Mariusz Waters on 04-16-2023 Hemoglobin (Bld) [Mass/Vol] 9.9 g/dL 12.0-15.0 [facility] Blood lymphocytes/100 leukoc ytesOrdered By: Mariusz Waters on 04-16-2023 Lymphocytes/100 WBC (Bld) 15.5 % 19-41 [facility] Blood monocytes/100 leukocyt esOrdered By: Mariusz Waters on 04-16-2023 Monocytes/100 WBC (Bld) 13.3 % 0-10 [facility] Blood platelet mean volumeOr dered By: Mariusz Waters on 04-16-2023 Platelet mean volume (Bld) [Entitic vol] 10.7 fL 6.2-12.0 [facility] Determination of erythrocyte mean corpuscular volume (MCV)Ordered By: Mariusz Waters on 04-16-2023 MCV (RBC) [Entitic vol] 89.2 fL 81-99 [facility] Hematocrit Auto (Bld) [Volum e fraction]Ordered By: Mariusz Waters on 04-16-2023 Hematocrit (Bld) [Volume fraction] 31.4 % 37-47 [facility] Laboratory - Chemistry and C hemistry - challengeOrdered By: Mariusz Waters on 04-16-2023 CO2 [Moles/Vol] 31.0 mmol/L 21.0-32.0 [facility] Urea nitrogen/Creatinine [Mass ratio] 11.3 mg/mg 10-20 [facility] Laboratory - Hematology and Cell countsOrdered By: Mariusz Waters on 04-16-2023 Erythrocyte distribution width (RBC) [Entitic vol] 48.6 fL 35.1-43.9 [facility] Erythrocyte distribution width (RBC) [Ratio] 15.1 % 11.6-14.6 [facility] Immature granulocytes/100 WBC (Bld) 0.800 % 0.0-0.9 [facility] Comment on above: IG% - Immature Granu locytes (promyelocytes, myelocytes and metamyelocytes) > 1% indicates that a LEFT SHIFT is Present. MCH (RBC) [Entitic mass] 28.1 pg 27.0-32.0 [facility] Nucleated RBC/100 WBC (Bld) [Ratio] 0 % 0-5 [facility] MCHC Auto (RBC) [Mass/Vol]Or dered By: Mariusz Waters on 04-16-2023 MCHC (RBC) [Mass/Vol] 31.5 g/dL 32-36 [facility] Comment on above: Delta: 29.6 on 04/15 No Panel InformationOrdered By: Mariusz Waters on 04-16-2023 Estimated Creatinine Clearance Calc 52.96 ml/min [facility] Estimated GFR (MDRD) Amer 89 mL/min >60 [facility] Comment on above: GFR Calc Estimated GFR (MDRD) Non-Af Amer 73 mL/min >60 [facility] Comment on above: Non- GFR Calc Platelets bldOrdered By: Mi Waters on 04-16-2023 Platelets (Bld) [#/Vol] 194 10*3/uL 150-450 [facility] Serum or plasma calcium lakeisha urement (mass/volume)Ordered By: Mariusz Waters on 04-16-2023 Calcium [Mass/Vol] 8.8 mg/dL 8.5-10.1 [facility] Serum or plasma creatinine m easurement (mass/volume)Ordered By: Mariusz Waters on 04-16-2023 Creatinine [Mass/Vol] 0.79 mg/dL 0.55-1.02 [facility] Comment on above: The validity of the calculated GFR & GFRAA in patients over 70 years has not been determined. Clinical correlation is essential. Serum or plasma urea nitroge n measurement (mass/volume)Ordered By: Mariusz Waters on 04-16-2023 Urea nitrogen [Mass/Vol] 9 mg/dL 7-18 [facility] Thin prep Papanicolaou smear with manual screeningOrdered By: Mariusz Waters on 04-16-2023 Thin prep Papanicolaou smear with manual screening 6 5-15 [facility] Absolute lymphocyte countOrd ered By: Kikomichelle Pittman on 04-15-2023 Lymphocytes Auto (Unsp spec) [#/Vol] 0.95 10*3/uL 0.83-4.51 [facility] Basophil percentageOrdered B y: Kikomichelle Pittman on 04-15-2023 Basophil percentage 0 SEEN /hpf 0-5 [facility] Lactate [Moles/Vol] 1.1 mmol/L 0.4-2.0 [facility] Basophils/100 WBC (Bld) 0.8 % 0-[address] [facility] Bilirubin [Mass/Vol] 0.50 mg/dL 0.20-1.00 [facility] Comment on above: For patients on eltr ombopag therapy, use of Dimension Salol TBIL is not recommended. Chloride [Moles/Vol] 100 mmol/L 98-107 [facility] Eosinophils/100 WBC (Bld) 3.6 % 0-5 [facility] Glucose [Mass/Vol] 91 mg/dL 74-106 [facility] Neutrophils (Bld) [#/Vol] 4.1 10*3/uL 2.0-7.7 [facility] Neutrophils/100 WBC (Bld) 66.9 % 47-70 [facility] Potassium [Moles/Vol] 4.2 mmol/L 3.5-5.1 [facility] Protein [Mass/Vol] 6.5 g/dL 6.4-8.2 [facility] Sodium [Moles/Vol] 136 mmol/L 136-145 [facility] WBC (Bld) [#/Vol] 6.1 10*3/uL 4.4-11.0 [facility] Bilirubin Test strip Ql (U)O rdered By: Kiko Pittman on 04-15-2023 Bilirubin Ql (U) Negative Negative [facility] Blood erythrocytes count (nu mber/volume)Ordered By: Kiko Pittman on 04-15-2023 RBC (Bld) [#/Vol] 3.82 10*6/uL 4.2-5.4 [facility] Blood hemoglobin measurement (mass/volume)Ordered By: Kiko Pittman on 04-15-2023 Hemoglobin (Bld) [Mass/Vol] 10.4 g/dL 12.0-15.0 [facility] Blood lymphocytes/100 leukoc ytesOrdered By: Kiko Pittman on 04-15-2023 Lymphocytes/100 WBC (Bld) 15.7 % 19-41 [facility] Blood manual differential co mment interpretation (narrative result)Ordered By: Kiko Pittman on 04-15-2023 Manual differential comment Bryce (Bld) [Interp] SCANNED [facility] Blood monocytes/100 leukocyt esOrdered By: Kiko Pittman on 04-15-2023 Monocytes/100 WBC (Bld) 12.0 % 0-10 [facility] Blood platelet mean volumeOr dered By: Kiko Pittman on 04-15-2023 Platelet mean volume (Bld) [Entitic vol] 11.1 fL 6.2-12.0 [facility] Determination of erythrocyte mean corpuscular volume (MCV)Ordered By: Kiko Pittman on 04-15-2023 MCV (RBC) [Entitic vol] 91.9 fL 81-99 [facility] Erythrocyte sedimentation ra teOrdered By: Mariusz Waters on 08-21-2023 ESR (Bld) [Velocity] 41 mm/h 0-30 [facility] Hematocrit Auto (Bld) [Volum e fraction]Ordered By: Kiko Pittman on 04-15-2023 Hematocrit (Bld) [Volume fraction] 35.1 % 37-47 [facility] Ketones Test strip Ql (U)Ord ered By: Kiko Pittman on 04-15-2023 Ketones Ql (U) Negative Negative [facility] Laboratory - Chemistry and C hemistry - challengeOrdered By: Kikomichelle Pittman on 04-15-2023 ALP [Catalytic activity/Vol] 76 U/L 45-117 [facility] ALT [Catalytic activity/Vol] 16 U/L 13-56 [facility] CO2 [Moles/Vol] 32.0 mmol/L 21.0-32.0 [facility] Globulin (S) [Mass/Vol] 4.2 g/dL 2.2-4.2 [facility] Urea nitrogen/Creatinine [Mass ratio] 11.7 mg/mg 10-20 [facility] Laboratory - Hematology and Cell countsOrdered By: Kikomichelle Pittman on 04-15-2023 Erythrocyte distribution width (RBC) [Entitic vol] 50.0 fL 35.1-43.9 [facility] Erythrocyte distribution width (RBC) [Ratio] 15.0 % 11.6-14.6 [facility] Immature granulocytes/100 WBC (Bld) 1.000 % 0.0-0.9 [facility] Comment on above: IG% - Immature Granu locytes (promyelocytes, myelocytes and metamyelocytes) > 1% indicates that a LEFT SHIFT is Present. MCH (RBC) [Entitic mass] 27.2 pg 27.0-32.0 [facility] Nucleated RBC/100 WBC (Bld) [Ratio] 0 % 0-5 [facility] MCHC Auto (RBC) [Mass/Vol]Or dered By: Kikomichelle Pittman on 04-15-2023 MCHC (RBC) [Mass/Vol] 29.6 g/dL 32-36 [facility] Mucus LM Ql (Urine sed)Order ed By: Kikomichelle Pittman on 04-15-2023 Mucus Ql (Urine sed) 0 SEEN /hpf [facility] Nitrite Test strip Ql (U)Ord ered By: Kiko Pittman on 04-15-2023 Nitrite Ql (U) Negative Negative [facility] No Panel InformationOrdered By: Kiko Pittman on 04-15-2023 Estimated GFR (MDRD) Amer 66 mL/min >60 [facility] Comment on above: GFR Calc Estimated GFR (MDRD) Non-Af Amer 54 mL/min >60 [facility] Comment on above: Non- GFR Calc Platelets bldOrdered By: Kiko Pittman on 04-15-2023 Platelets (Bld) [#/Vol] 169 10*3/uL 150-450 [facility] Protein Test strip Ql (U)Ord ered By: Kiko Pittman on 04-15-2023 Protein Ql (U) Negative Negative [facility] Serum or plasma C reactive p rotein measurement (mass/volume)Ordered By: Mariusz Waters on 04-15-2023 CRP [Mass/Vol] 14.90 mg/L 0.0-3.0 [facility] Comment on above: C-Reactive Protein ( CRP) provides useful information for thediagnosis, therapy and monitoring of inflammatory processesand associated diseases. For the evaluation of Relative Riskfor Cardiovascular Disease, a High Sensitivity CRP (HSCRP)should be ordered. Serum or plasma albumin lakeisha urement (mass/volume)Ordered By: Kiko Pittman on 04-15-2023 Albumin [Mass/Vol] 2.3 g/dL 3.2-5.0 [facility] Serum or plasma albumin/glob ulin mass ratioOrdered By: Kiko Pittman on 04-15-2023 Albumin/Globulin [Mass ratio] 0.5 {ratio} 0.9-2.4 [facility] Serum or plasma calcium lakeisha urement (mass/volume)Ordered By: Kiko Pittman on 04-15-2023 Calcium [Mass/Vol] 8.6 mg/dL 8.5-10.1 [facility] Serum or plasma creatinine m easurement (mass/volume)Ordered By: Kiko Pittman on 04-15-2023 Creatinine [Mass/Vol] 1.03 mg/dL 0.55-1.02 [facility] Comment on above: The validity of the calculated GFR & GFRAA in patients over 70 years has not been determined. Clinical correlation is essential. Serum or plasma urea nitroge n measurement (mass/volume)Ordered By: Kiko Pittman on 04-15-2023 Urea nitrogen [Mass/Vol] 12 mg/dL 7-18 [facility] Squamous epithelial cells de tection in urine sediment by light microscopyOrdered By: Kiko Pittman on 04-15-2023 Epithelial cells.squamous LM Ql (Urine sed) 0-5 SEEN /hpf 5-10 [facility] Thin prep Papanicolaou smear with manual screeningOrdered By: Kiko Pittman on 04-15-2023 Thin prep Papanicolaou smear with manual screening 22 U/L 15-37 [facility] Thin prep Papanicolaou smear with manual screening 4 5-15 [facility] Urine blood detectionOrdered By: Kiko Pittman on 04-15-2023 RBC Ql (U) Negative Negative [facility] RBC Ql (U) 0 SEEN /hpf 0-5 [facility] Urine clarityOrdered By: Kiko Pittman on 04-15-2023 Clarity (U) Sl. Cloudy Clear [facility] Urine color determinationOrd ered By: Kiko Pittman on 04-15-2023 Color (U) Yellow Yellow [facility] Urine glucose detectionOrder ed By: Kiko Pittman on 04-15-2023 Glucose Ql (U) 50 mg/dl Normal [facility] Urine leukocyte esterase det ection by dipstickOrdered By: Kiko Pittman on 04-15-2023 Leukocyte esterase Test strip Ql (U) 25 /ul Negative [facility] Urine pHOrdered By: Kiko torres on 04-15-2023 pH (U) 7.0 [pH] 5.0 - 8.0 [facility] Urine sediment bacteria coun t by microscopy (number/high power field)Ordered By: Kiko Pittman on 04-15-2023 Bacteria LM.HPF (Urine sed) [#/Area] 0 /[HPF] None Seen [facility] Urine specific gravity measu rementOrdered By: Kiko Pittman on 04-15-2023 Specific gravity (U) [Rel density] 1.005 1.002-1.03 0 [facility] Urobilinogen Auto test strip Ql (U)Ordered By: Kiko Pittman on 04-15-2023 Urobilinogen Ql (U) Normal mg/dl Normal [facility] Absolute lymphocyte countOrd ered By: Kiko Pittman on 04-04-2023 Lymphocytes Auto (Unsp spec) [#/Vol] 1.10 10*3/uL 0.83-4.51 [facility] Basophil percentageOrdered B y: Kiko Pittman on 04-04-2023 Basophils/100 WBC (Bld) 0.8 % 0-1 [facility] Chloride [Moles/Vol] 105 mmol/L 98-107 [facility] Eosinophils/100 WBC (Bld) 1.5 % 0-5 [facility] Glucose [Mass/Vol] 95 mg/dL 74-106 [facility] Neutrophils (Bld) [#/Vol] 4.5 10*3/uL 2.0-7.7 [facility] Neutrophils/100 WBC (Bld) 68.0 % 47-70 [facility] Potassium [Moles/Vol] 4.1 mmol/L 3.5-5.1 [facility] Sodium [Moles/Vol] 137 mmol/L 136-145 [facility] WBC (Bld) [#/Vol] 6.6 10*3/uL 4.4-11.0 [facility] Blood erythrocytes count (nu mber/volume)Ordered By: Kiko Pittman on 04-04-2023 RBC (Bld) [#/Vol] 3.42 10*6/uL 4.2-5.4 [facility] Blood hemoglobin measurement (mass/volume)Ordered By: Kiko Pittman on 04-04-2023 Hemoglobin (Bld) [Mass/Vol] 9.7 g/dL 12.0-15.0 [facility] Blood lymphocytes/100 leukoc ytesOrdered By: Kiko Pittman on 04-04-2023 Lymphocytes/100 WBC (Bld) 16.8 % 19-41 [facility] Blood monocytes/100 leukocyt esOrdered By: Kiko Pittman on 04-04-2023 Monocytes/100 WBC (Bld) 11.8 % 0-10 [facility] Blood platelet mean volumeOr dered By: Kiko Pittman on 04-04-2023 Platelet mean volume (Bld) [Entitic vol] 9.7 fL 6.2-12.0 [facility] Determination of erythrocyte mean corpuscular volume (MCV)Ordered By: Kiko Pittman on 04-04-2023 MCV (RBC) [Entitic vol] 91.8 fL 81-99 [facility] Hematocrit Auto (Bld) [Volum e fraction]Ordered By: Kiko Pittman on 04-04-2023 Hematocrit (Bld) [Volume fraction] 31.4 % 37-47 [facility] Laboratory - Chemistry and C hemistry - challengeOrdered By: Kikomichelle Pittman on 04-04-2023 CO2 [Moles/Vol] 24.0 mmol/L 21.0-32.0 [facility] Urea nitrogen/Creatinine [Mass ratio] 9.5 mg/mg 10-20 [facility] Laboratory - Hematology and Cell countsOrdered By: Kiko Pittman on 04-04-2023 Erythrocyte distribution width (RBC) [Entitic vol] 48.9 fL 35.1-43.9 [facility] Erythrocyte distribution width (RBC) [Ratio] 14.5 % 11.6-14.6 [facility] Immature granulocytes/100 WBC (Bld) 1.100 % 0.0-0.9 [facility] Comment on above: IG% - Immature Granu locytes (promyelocytes, myelocytes and metamyelocytes) > 1% indicates that a LEFT SHIFT is Present. MCH (RBC) [Entitic mass] 28.4 pg 27.0-32.0 [facility] Nucleated RBC/100 WBC (Bld) [Ratio] 0 % 0-5 [facility] MCHC Auto (RBC) [Mass/Vol]Or dered By: Kiko Pittman on 04-04-2023 MCHC (RBC) [Mass/Vol] 30.9 g/dL 32-36 [facility] No Panel InformationOrdered By: Kiko Pittman on 04-04-2023 Estimated Creatinine Clearance Calc 41.70 ml/min [facility] Estimated GFR (MDRD) Amer 47 mL/min >60 [facility] Comment on above: GFR Calc Estimated GFR (MDRD) Non-Af Amer 39 mL/min >60 [facility] Comment on above: Non- GFR Calc Platelets bldOrdered By: Kiko Pittman on 04-04-2023 Platelets (Bld) [#/Vol] 332 10*3/uL 150-450 [facility] Serum or plasma calcium lakeisha urement (mass/volume)Ordered By: Kiko Pittman on 04-04-2023 Calcium [Mass/Vol] 9.4 mg/dL 8.5-10.1 [facility] Serum or plasma creatinine m easurement (mass/volume)Ordered By: iKko Pittman on 04-04-2023 Creatinine [Mass/Vol] 1.37 mg/dL 0.55-1.02 [facility] Comment on above: The validity of the calculated GFR & GFRAA in patients over 70 years has not been determined. Clinical correlation is essential. Serum or plasma urea nitroge n measurement (mass/volume)Ordered By: Kiko Pittman on 04-04-2023 Urea nitrogen [Mass/Vol] 13 mg/dL 7-18 [facility] Thin prep Papanicolaou smear with manual screeningOrdered By: Kiko Pittman on 04-04-2023 Thin prep Papanicolaou smear with manual screening 8 5-15 [facility] CBC panel Auto (Bld)on 04-01 Erythrocyte distribution width (RBC) [Ratio] 14.1 % Normal 11.5-15.0 [facility] Comment on above: Order Comment: Specveronica men Type: BLOOD SPECIMENOrdering Facility: [facility] Address: [address] [address] Performed By: #### 5 8410-2 ####[facility]ORATORYCLIA [id number] [address] [place] Hematocrit (Bld) [Volume fraction] 26.8 % Low 36.0-46.0 [facility] Comment on above: Order Comment: Kareni men Type: BLOOD SPECIMENOrdering Facility: [facility] Address: [address] [address] Performed By: #### 5 8410-2 ####[facility] LABORATORYCLIA [id number] [place] [address] [place] Hemoglobin (Bld) [Mass/Vol] 8.3 g/dL Low 11.5-15.5 [facility] Comment on above: Order Comment: Speci men Type: BLOOD SPECIMENOrdering Facility: [facility] Address: [address] [place] [address] Performed By: #### 5 8410-2 ####[facility]ORATORYCLIA [id number] [address] MCH (RBC) [Entitic mass] 27.9 pg Normal 26.0-34.0 [facility] Comment on above: Order Comment: Speci men Type: BLOOD SPECIMENOrdering Facility: [facility] Address: [address] [place] [address] Performed By: #### 5 8410-2 ####[facility] LABORATORYCLIA [id number] [address] MCHC (RBC) [Mass/Vol] 31.0 g/dL Normal 30.5-36.[address] [facility] Comment on above: Order Comment: Speci men Type: BLOOD SPECIMENOrdering Facility: [facility] Address: [address] [place] [address] Performed By: #### 5 8410-2 ####[facility] LABORATORYCLIA [id number] [address] MCV (RBC) [Entitic vol] 90.2 fL Normal 80.0-100.0 [facility] Comment on above: Order Comment: Speci men Type: BLOOD SPECIMENOrdering Facility: [facility] Address: [address] [place] [address] Performed By: #### 5 8410-2 ####[facility] LABORATORYCLIA [id number] [address] Nucleated RBC (Bld) [#/Vol] 10*3/uL Normal <0.01 [facility] Comment on above: Order Comment: Speci men Type: BLOOD SPECIMENOrdering Facility: [facility] Address: [address] [place] [address] Performed By: #### 5 8410-2 ####[facility] LABORATORYCLIA [id number] [place] [address] [place] Platelet mean volume (Bld) [Entitic vol] 10.2 fL Normal 9.0-12.7 [facility] Comment on above: Order Comment: Speci men Type: BLOOD SPECIMENOrdering Facility: [facility] Address: [address] [place] [address] Performed By: #### 5 8410-2 ####[facility] LABORATORYCLIA [id number] [address] [place] Platelets (Bld) [#/Vol] 334 10*3/uL Normal 150-400 [facility] Comment on above: Order Comment: Speci men Type: BLOOD SPECIMENOrdering Facility: [facility] Address: [address] [place] [address] Performed By: #### 5 8410-2 ####[facility] LABORATORYCLIA [id number] [address] RBC (Bld) [#/Vol] 2.97 10*6/uL Low 3.90-5.20 [facility] Comment on above: Order Comment: Speci men Type: BLOOD SPECIMENOrdering Facility: [facility] Address: [address] [place] [address] Performed By: #### 5 8410-2 ####[facility] LABORATORYCLIA [id number] [address] WBC (Bld) [#/Vol] 6.11 10*3/uL Normal 3.70-11.00 [facility] Comment on above: Order Comment: Speci men Type: BLOOD SPECIMENOrdering Facility: [facility] Address: [address] [place] [address] Performed By: #### 5 8410-2 ####[facility]EE LABORATORYCLIA [id number] [address] CNDSon 04-01-2023 CNDS HNO ID: [id number] Author: Chhaya Stacy MD Service: Hospital Medicine [...] Consulting: Willow Frank MD Primary Service: , [facility] Nurse Practitioner: Carmelita Myers APRN.[employer]SI[employer]GER MY CONDITION AT DISCHARGE: Stable REASON I [...] lymphedema specialist so she was discharged with [facility] to continue outpatient PT with her [...] she is not. They agreed to pick remover later this evening. Patient was cleared for discharge on levaquin with outpatient physical therapist f/up /PCP.Lisinopril was resumed at discharge .[facility] outpatient renal function test during f/up with pcp Will call if there is any need to change antibiotic based on results SUMMARY OF WHAT HAPPENED WHILE I WAS IN THE HOSPITAL: See below OTHER PROBLEMS/DIAGNOSIS: Principal Problem: Sepsis not present on admission due to left lower extremity cellulitis. Lower extremity edema Active Problems: Hypopotassemia (POA) VICTORINO (acute kidney injury) ([facility]) Leg ulcer, left, limited to breakdown of skin (HCC) At high risk for impaired skin integrity Resolved Problems: * No resolved hospital problems. * OPERATIONS PERFORMED WHILE IN THE HOSPITAL: None IMPORTANT TEST/PROCEDURES: X-ray tibia/fibula Lower extremity ultrasound Chest x-ray TEST RESULTS NOT AVAILABLE AT THIS TIME: The plan for following up on pending results below is you (more content not included)... [facility] CONSULTon 04-01-2023 CONSULT HNO ID: [id number] Author: Carmelita Myers APRN.CNP Service: Wound/Ostomy Author [...] treatment with wraps every Saturday in the [facility]. About 2 weeks ago she noticed LLE redness and pain and was treated at [facility] from 03/17-03/19/23 for LLE cellulitis. She [...] recent labs a (more content not included)... [facility] CONSULT PROGon 04-01-2023 CONSULT PROG HNO ID: [id number] Author: Tania Simeon RPh Service: Pharmacy Author [...] Tania Simeon RPh DATE/TIME: 04/01/2023 10:27 AM [facility] CONSULT PROG HNO ID: [id number] Author: Willow Frank MD Service: Infectious Disease [...] final until Authenticated by responsible provider. Normal [facility] Comprehensive metabolic 2000 panelon 04-01-2023 Albumin [Mass/Vol] 2.3 g/dL Low 3.9-4.9 [facility] Comment on above: Order Comment: Speci dank Type: BLOOD SPECIMEN [facility] Address: [address] [address] Performed By: #### L [id number] #### [facility] CLIA [id number] [address] OF [facility] ALP [Catalytic activity/Vol] 66 U/L Normal 34-123 [facility] Comment on above: Order Comment: Kareni dank Type: BLOOD SPECIMEN [facility] Address: [address] [address] Performed By: #### L [id number] #### [facility] CLIA [id number] [address] ALT [Catalytic activity/Vol] U/L Low 7-38 [facility] Comment on above: Order Comment: Speci men Type: BLOOD SPECIMEN [facility] Address: [address] [address] Performed By: #### L [id number] #### [facility] CLIA [id number] [address] [place] [address] [place] Anion gap [Moles/Vol] 8 mmol/L Low 9-[address] [facility] Comment on above: Order Comment: Speci men Type: BLOOD SPECIMEN [facility] Address: [address] [address] Performed By: #### L [id number] #### [facility] CLIA [id number] [address] [place] AST [Catalytic activity/Vol] 13 U/L Normal 13-35 [facility] Comment on above: Order Comment: Speci men Type: BLOOD SPECIMEN [facility] Address: [address] [address] Performed By: #### L [id number] #### [facility] CLIA [id number] [address] [place] Bilirubin [Mass/Vol] 0.2 mg/dL Normal 0.2-1.3 [facility] Comment on above: Order Comment: Speci men Type: BLOOD SPECIMEN [facility] Address: [address] [address] Performed By: #### L [id number] #### [facility] CLIA [id number] [address] Calcium [Mass/Vol] 8.6 mg/dL Normal 8.5-10.2 [facility] Comment on above: Order Comment: Speci men Type: BLOOD SPECIMEN [facility] Address: [address] [address] Performed By: #### L [id number] #### [facility] CLIA [id number] [address] STATES [facility] Chloride [Moles/Vol] 105 mmol/L Normal 97-105 [facility] Comment on above: Order Comment: Specveronica men Type: BLOOD SPECIMEN [facility] Address: [address] [place] [address] Performed By: #### L [id number] #### [facility] CLIA [id number] [address] CO2 [Moles/Vol] 27 mmol/L Normal 22-30 [facility] Comment on above: Order Comment: Speci men Type: BLOOD SPECIMEN [facility] Address: [address] [place] [address] Performed By: #### L [id number] #### [facility] CLIA [id number] [address] Creatinine [Mass/Vol] 0.95 mg/dL Normal 0.58-0.[address] [facility] Comment on above: Order Comment: Speci men Type: BLOOD SPECIMEN [facility] Address: [address] [place] [address] Performed By: #### L [id number] #### [facility] CLIA [id number] [address] ESTIMATED GLOMERULAR FILTRATION RATE 59 mL/min/1.73m??? Low >=60 [facility] Comment on above: Order Comment: Jean men Type: BLOOD SPECIMEN [facility] Address: [address] [place] [address] Result Comment: Harika mated Glomerular Filtration Rate [...] reflect actual GFR. Performed By: #### L [id number] #### [facility] CLIA [id number] [address] [place] [address] [place] Glucose [Mass/Vol] 88 mg/dL Normal 74-99 [facility] Comment on above: Order Comment: Jean weems Type: BLOOD SPECIMEN [facility] Address: [address] [place] [address] Result Comment: The [place] [employer] (ADA) provides guidance for cutoff [...] Standards of Medical Care in Diabetes 2016, [place] [employer]. Diabetes Care. 2016.39(Suppl 1). Performed By: #### L [id number] #### [facility] CLIA [id number] [address] [place] [address] [place] Potassium [Moles/Vol] 4.5 mmol/L Normal 3.7-5.[address] [facility] Comment on above: Order Comment: Jean weems Type: BLOOD SPECIMEN [facility] Address: [address] [place] [address] Performed By: #### L [id number] #### [facility] CLIA [id number] [address] [place] [address] [place] Protein [Mass/Vol] 5.7 g/dL Low 6.3-8.0 [facility] Comment on above: Order Comment: Jean weems Type: BLOOD SPECIMEN [facility] Address: [address] [place] [address] Performed By: #### L [id number] #### [facility] CLIA [id number] [address] [place] [address] [place] Sodium [Moles/Vol] 140 mmol/L Normal 136-144 [facility] Comment on above: Order Comment: Kareni men Type: BLOOD SPECIMEN [facility] Address: [address] [place] [address] Performed By: #### L [id number], 1987-12 #### [facility] CLIA [id number] [address] STATES OF [facility] Urea nitrogen [Mass/Vol] 9 mg/dL Normal 7-21 [facility] Comment on above: Order Comment: Speci men Type: BLOOD SPECIMEN [facility] Address: [address] [place] [address] Performed By: #### L [id number], 1987-12 #### [facility] CLIA [id number] [address] [place] Magnesium SerPl-mCncon 04-01 Magnesium [Mass/Vol] 1.8 mg/dL Normal 1.7-2.3 [facility] Comment on above: Order Comment: Speci men Type: BLOOD SPECIMEN [facility] Address: [address] [place] [address] Performed By: #### L [id number], 1987-12 #### [facility] CLIA [id number] [address] [place] THERAPY NTon 04-01-2023 THERAPY NT HNO ID: [id number] Author: Ros Moore PT Service: Physical Therapy Author Type: Physical Therapist Type: Therapy (PT/OT/Speech/Resp) Filed: 04/01/2023 11:56 AM Note Text: Physical Therapy Evaluation SERVICE DATE: 04/01/2023 SERVICE TIME: 0950 to 1118 ROOM: [address] [place] [address] Recommended Discharge Disposition: Home PT Recommended Discharge [...] unwell. 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 friend does all driving. denies falls.sleeps [...] use, s (more content not included)... Normal [facility] CBC panel Auto (Bld)on 03-31 Erythrocyte distribution width (RBC) [Ratio] 14.1 % Normal 11.5-15.0 [facility] Comment on above: Order Comment: Speci men Type: BLOOD SPECIMEN [facility] Address: [address] [address] Performed By: #### L [id number] #### [facility] CLIA [id number] [address] [id number] [facility] Hematocrit (Bld) [Volume fraction] 27.2 % Low 36.0-46.0 [facility] Comment on above: Order Comment: Speci men Type: BLOOD SPECIMEN [facility] Address: [address] [place] [address] Performed By: #### L [id number] #### [facility] CLIA [id number] [address] [place] Hemoglobin (Bld) [Mass/Vol] 8.5 g/dL Low 11.5-15.5 [facility] Comment on above: Order Comment: Speci men Type: BLOOD SPECIMEN [facility] Address: [address] [place] [address] Performed By: #### L [id number] #### [facility] CLIA [id number] [address] OF [facility] MCH (RBC) [Entitic mass] 27.4 pg Normal 26.0-34.0 [facility] Comment on above: Order Comment: Speci men Type: BLOOD SPECIMEN [facility] Address: [address] [place] [address] Performed By: #### L [id number] #### [facility] CLIA [id number] [address] MCHC (RBC) [Mass/Vol] 31.3 g/dL Normal 30.5-36.[address] [facility] Comment on above: Order Comment: Speci men Type: BLOOD SPECIMEN [facility] Address: [address] [place] [address] Performed By: #### L [id number] #### [facility] CLIA [id number] [address] MCV (RBC) [Entitic vol] 87.7 fL Normal 80.0-100.0 [facility] Comment on above: Order Comment: Speci men Type: BLOOD SPECIMEN [facility] Address: [address] [place] [address] Performed By: #### L [id number] #### [facility] CLIA [id number] [address] Nucleated RBC (Bld) [#/Vol] 10*3/uL Normal <0.01 [facility] Comment on above: Order Comment: Speci men Type: BLOOD SPECIMEN [facility] Address: [facility] [address] Performed By: #### L [id number], 1987-12 #### [facility] CLIA [id number] [address] [place] Platelet mean volume (Bld) [Entitic vol] 10.2 fL Normal 9.0-12.7 [facility] Comment on above: Order Comment: Speci men Type: BLOOD SPECIMEN [facility] Address: [address] [address] Performed By: #### L [id number] #### [facility] CLIA [id number] [address] [place] Platelets (Bld) [#/Vol] 374 10*3/uL Normal 150-400 [facility] Comment on above: Order Comment: Speci men Type: BLOOD SPECIMEN [facility] Address: [address] [address] Performed By: #### L [id number] #### [facility] CLIA [id number] [address] [place] [address] [place] RBC (Bld) [#/Vol] 3.10 10*6/uL Low 3.90-5.20 [facility] Comment on above: Order Comment: Speci men Type: BLOOD SPECIMEN [facility] Address: [address] Performed By: #### L [id number], 1987-12 #### [facility] CLIA [id number] [address] [place] WBC (Bld) [#/Vol] 7.27 10*3/uL Normal 3.70-11.00 [facility] Comment on above: Order Comment: Speci men Type: BLOOD SPECIMEN [facility] Address: [address] [place] [address] Performed By: #### L [id number] #### [facility] CLIA [id number] [address] [place] [address] [facility] [place] Comprehensive metabolic 2000 panelon 03-31-2023 Albumin [Mass/Vol] 2.4 g/dL Low 3.9-4.9 [facility] Comment on above: Order Comment: Speci men Type: BLOOD SPECIMEN [facility] Address: [address] [place] [address] Performed By: #### 4 091-5 #### [facility] CLIA [id number] [address] [place] [address] [facility] [place] ALP [Catalytic activity/Vol] 69 U/L Normal 34-123 [facility] Comment on above: Order Comment: Speci men Type: BLOOD SPECIMEN [facility] Address: [address] [place] [address] Performed By: #### 4 091-5 #### [facility] CLIA [id number] [address] ALT [Catalytic activity/Vol] 7 U/L Normal 7-38 [facility] Comment on above: Order Comment: Speci men Type: BLOOD SPECIMEN [facility] Address: [address] [place] [address] Performed By: #### 4 091-5 #### [facility] CLIA [id number] [address] Anion gap [Moles/Vol] 9 mmol/L Normal 9-[address] [facility] Comment on above: Order Comment: Speci men Type: BLOOD SPECIMEN [facility] Address: [address] [address] Performed By: #### 4 091-5 #### [facility] CLIA [id number] [address] AST [Catalytic activity/Vol] 13 U/L Normal 13-35 [facility] Comment on above: Order Comment: Speci men Type: BLOOD SPECIMEN [facility]ing Facility: [facility] Address: [address] [place] [address] Performed By: #### 4 091-5 #### [facility] CLIA [id number] 1000 [place] [address] [place] Bilirubin [Mass/Vol] 0.2 mg/dL Normal 0.2-1.3 [facility] Comment on above: Order Comment: Speci men Type: BLOOD SPECIMEN Ordering Facility: [facility] Address: [address] [place] [address] Performed By: #### 4 091-5 #### [facility] CLIA [id number] [address] [place] [address] [place] Calcium [Mass/Vol] 8.4 mg/dL Low 8.5-10.2 [facility] Comment on above: Order Comment: Speci men Type: BLOOD SPECIMEN Ordering Facility: [facility] Address: [address] [place] [address] Performed By: #### 4 091-5 #### [facility] CLIA [id number] [address] [place] Chloride [Moles/Vol] 104 mmol/L Normal 97-105 [facility] Comment on above: Order Comment: Speci men Type: BLOOD SPECIMEN Ordering Facility: [facility] Address: [address] [place] [address] Performed By: #### 4 091-5 #### [facility] CLIA [id number] [address] [place] [address] [place] CO2 [Moles/Vol] 29 mmol/L Normal 22-30 [facility] Comment on above: Order Comment: Speci men Type: BLOOD SPECIMEN Ordering Facility: [facility] Address: [address] [place] [address] Performed By: #### 4 091-5 #### [facility] CLIA [id number] [address] [place] [address] [place] Creatinine [Mass/Vol] 0.99 mg/dL High 0.58-0.[address] [facility] Comment on above: Order Comment: Speci men Type: BLOOD SPECIMEN Ordering Facility: [facility] Address: [address] [place] [address] Performed By: #### 4 091-5 #### [facility] CLIA [id number] [address] [place] [address] [place] ESTIMATED GLOMERULAR FILTRATION RATE 56 mL/min/1.73m??? Low >=60 [facility] Comment on above: Order Comment: Jean weems Type: BLOOD SPECIMEN Ordering Facility: [facility] Address: [address] [address] Result Comment: Harika mated Glomerular Filtration Rate [...] GFR. Performed By: #### 4 091-5 #### [facility] CLIA [id number] [address] [place] [address] [place] Glucose [Mass/Vol] 114 mg/dL High 74-99 [facility] Comment on above: Order Comment: Jean weems Type: BLOOD SPECIMEN Ordering Facility: [facility] Address: [address] [place] [address] Result Comment: The [place] [employer] (ADA) provides guidance for cutoff [...] Standards of Medical Care in Diabetes 2016, [place] [employer]. Diabetes Care. 2016.39(Suppl 1). Performed By: #### 4 091-5 #### [facility] CLIA [id number] [address] [place] [address] [place] Potassium [Moles/Vol] 3.3 mmol/L Low 3.7-5.[address] [facility] Comment on above: Order Comment: Jean weems Type: BLOOD SPECIMEN Ordering Facility: [facility] Address: [address] Performed By: #### 4 091-5 #### [facility] CLIA [id number] [address] [place] Protein [Mass/Vol] 5.8 g/dL Low 6.3-8.0 [facility] Comment on above: Order Comment: Speci men Type: BLOOD SPECIMEN Ordering Facility: [facility] Address: [address] [place] [address] Performed By: #### 4 091-5 #### [facility] CLIA [id number] [address] Sodium [Moles/Vol] 142 mmol/L Normal 136-144 [facility] Comment on above: Order Comment: Speci men Type: BLOOD SPECIMEN Ordering Facility: [facility] Address: [address] [place] [address] Performed By: #### 4 091-5 #### [facility] CLIA [id number] [address] Urea nitrogen [Mass/Vol] 12 mg/dL Normal 7-21 [facility] Comment on above: Order Comment: Speci men Type: BLOOD SPECIMEN Ordering Facility: [facility] Address: [address] [place] [address] Performed By: #### 4 091-5 #### [facility] CLIA [id number] [address] Magnesium SerPl-mCncon 03-31 Magnesium [Mass/Vol] 1.8 mg/dL Normal 1.7-2.3 [facility] Comment on above: Order Comment: Speci men Type: BLOOD SPECIMEN Ordering Facility: [facility] Address: [address] [place] [address] Performed By: #### 4 091-5 #### [facility] CLIA [id number] [address] [place] ALLIED HEALTHon 03-30-2023 ALLIED HEALTH HNO ID: [id number] Author: Anjali Pruett RT(Danitza) Service: ? Author [...] RT Waldo(R) March 30, 2023 9:04 AM [facility] Bacteria Bld Culton 03-30-20 23 Bacteria identified Cx Nom (Bld) CULTURE, BLOOD: No growth 5 days [facility] Comment on above: Performed By: #### 6 00-7 ####[facility] [id number] [address] Bacteria identified Cx Nom (Bld) CULTURE, BLOOD: No growth 5 days [facility] Comment on above: Performed By: #### 6 00-7 ####[facility] [id number] [address] [place] Bacteria Wnd Culton 03-30-20 [...] , Intermediate >.5 , Resistant >1 Abnormal [facility] Comment on above: Performed By: #### 6 462-6 ####[facility] [id number] [address] [place] CASE MGT INIT ASSES 2022 CASE MGT INIT ASS HNO ID: [id number] Author: Valery Roth RN Service: ? Author Type: Registered Nurse Type: Care Mgt Initial Assessment Filed: 03/30/2023 9:22 AM Note Text: CARE MANAGEMENT: ASSESSMENT AND DISCHARGE PLAN SERVICE DATE: March 30, 2023 SERVICE TIME: 9:16 AM career services representative spoke with patient at bedside to complete Care Management Assessment. Introduction made and role of Care Management explained. PCP: Tyler Benitez MD - Patient confirmed Primary Contact: Primary Emergency Contact: Patrizia John Address: [address] [place] [address] [place] Mobile Relation: Caregiver Secondary Emergency [...] Support: Other: See Comment Caregiver: Patrizia John [phone] - Patient states she was staying at [...] Patient Goal(s): Be able to go home [place] Explained: [place] Given: No (Discharge Needs: To [...] Bars at home. Discharge Pharmacy - [facility] confirmed by patient. Discharge Transportation: [place] Or Amy Baxter. dept to follow. SIGNATURE: Valery Roth RN PATIENT NAME: Amber Koroma DATE: March 30, 2023 TIME: 9:16 AM CONTACT #: [phone] Normal [facility] CBC panel Auto (Bld)on 03-30 Erythrocyte distribution width (RBC) [Ratio] 14.0 % Normal 11.5-15.0 [facility] Comment on above: Order Comment: Speci men Type: BLOOD SPECIMEN Ordering Facility: [facility] Address: [address] [place] [address] Performed By: #### 4 091-5 #### [facility] CLIA [id number] [address] OF [facility] Hematocrit (Bld) [Volume fraction] 25.1 % Low 36.0-46.0 [facility] Comment on above: Order Comment: Speci men Type: BLOOD SPECIMEN Ordering Facility: [facility] Address: [address] [address] Performed By: #### 4 091-5 #### [facility] CLIA [id number] [address] OF [facility] Hemoglobin (Bld) [Mass/Vol] 8.0 g/dL Low 11.5-15.5 [facility] Comment on above: Order Comment: Speci men Type: BLOOD SPECIMEN Ordering Facility: [facility] Address: [address] [place] [address] Performed By: #### 4 091-5 #### [facility] CLIA [id number] [address] MCH (RBC) [Entitic mass] 27.7 pg Normal 26.0-34.0 [facility] Comment on above: Order Comment: Speci men Type: BLOOD SPECIMEN Ordering Facility: [facility] Address: [address] [place] [address] Performed By: #### 4 091-5 #### [facility] CLIA [id number] [address] MCHC (RBC) [Mass/Vol] 31.9 g/dL Normal 30.5-36.[address] [facility] Comment on above: Order Comment: Speci men Type: BLOOD SPECIMEN Ordering Facility: [facility] Address: [address] [place] [address] Performed By: #### 4 091-5 #### [facility] CLIA [id number] [address] MCV (RBC) [Entitic vol] 86.9 fL Normal 80.0-100.0 M [facility] Comment on above: Order Comment: Speci men Type: BLOOD SPECIMEN Ordering Facility: [facility] Address: [address] [address] Performed By: #### 4 091-5 #### [facility] CLIA [id number] [address] [place] [address] [place] Nucleated RBC (Bld) [#/Vol] 10*3/uL Normal <0.01 [facility] Comment on above: Order Comment: Speci men Type: BLOOD SPECIMEN Ordering Facility: [facility] Address: [address] [address] Performed By: #### 4 091-5 #### [facility] CLIA [id number] [address] [place] [address] [place] Platelet mean volume (Bld) [Entitic vol] 10.3 fL Normal 9.0-12.7 [facility] Comment on above: Order Comment: Speci men Type: BLOOD SPECIMEN Ordering Facility: [facility] Address: [address] Performed By: #### 4 091-5 #### [facility] CLIA [id number] [address] [place] [address] [place] Platelets (Bld) [#/Vol] 338 10*3/uL Normal 150-400 [facility] Comment on above: Order Comment: Speci men Type: BLOOD SPECIMEN Ordering Facility: [facility] Address: [address] Performed By: #### 4 091-5 #### [facility] CLIA [id number] [address] [place] [address] [place] RBC (Bld) [#/Vol] 2.89 10*6/uL Low 3.90-5.20 [facility] Comment on above: Order Comment: Speci men Type: BLOOD SPECIMEN Ordering Facility: [facility] Address: [address] [address] Performed By: #### 4 091-5 #### [facility] CLIA [id number] [address] [id number] [place] WBC (Bld) [#/Vol] 6.96 10*3/uL Normal 3.70-11.00 [facility] Comment on above: Order Comment: Speci men Type: BLOOD SPECIMEN Ordering Facility: [facility] Address: [place] [address] Performed By: #### 4 091-5 #### [facility] CLIA [id number] [address] [place] [address] [facility] [place] CONSULTon 03-30-2023 CONSULT HNO ID: [id number] Author: Jamaal Holman APRN.ASSISTANT KITCHEN MANAGER Service: Infectious Disease Author Type: Nurse Practitioner [...] on her LLE. Patient reportedly seen at [facility] on 03/17 with left leg cellulitis [...] c/d/i DATA: Diagnostic (more content not included)... [facility] CONSULT PROGon 03-30-2023 CONSULT PROG HNO ID: [id number] Author: Gayle Whitley RPh Service: Pharmacy Author [...] Gayle Whitley RPh DATE/TIME: 03/30/2023 5:00 PM [facility] CONSULT PROG HNO ID: [id number] Author: Gayle Whitley RPh Service: Pharmacy Author [...] pharmacy if there are questions. Gayle Whitley [facility] Comprehensive metabolic 2000 panelon 03-30-2023 Albumin [Mass/Vol] 2.2 g/dL Low 3.9-4.9 [facility] Comment on above: Order Comment: Specveronica weems Type: BLOOD SPECIMEN Order[facility] Facility: [facility] Address: [address] [place] [address] Performed By: #### L [id number] #### [facility] CLIA [id number] [address] ALP [Catalytic activity/Vol] 64 U/L Normal 34-123 [facility] Comment on above: Order Comment: Jean weems Type: BLOOD SPECIMEN Ordering Facility: [facility] Address: [address] [place] [address] Performed By: #### L [id number] #### [facility] CLIA [id number] [address] [place] ALT [Catalytic activity/Vol] 7 U/L Normal 7-38 [facility] Comment on above: Order Comment: Jean weems Type: BLOOD SPECIMEN Ordering Facility: [facility] Address: [address] [place] [address] Performed By: #### L [id number] #### [facility] CLIA [id number] [address] [place] [address] [place] Anion gap [Moles/Vol] 8 mmol/L Low 9-[address] [facility] Comment on above: Order Comment: Speci men Type: BLOOD SPECIMEN Ordering Facility: [facility] Address: [address] [address] Performed By: #### L [id number], 1987-12 #### [facility] CLIA [id number] [address] [place] [address] [place] AST [Catalytic activity/Vol] 12 U/L Low 13-35 [facility] Comment on above: Order Comment: Speci men Type: BLOOD SPECIMEN Order[facility] Facility: [facility] Address: [address] [place] [address] Performed By: #### L [id number] #### [facility] CLIA [id number] [address] [place] [address] [place] Bilirubin [Mass/Vol] 0.3 mg/dL Normal 0.2-1.3 [facility] Comment on above: Order Comment: Speci men Type: BLOOD SPECIMEN Ordering Facility: [facility] Address: [address] [place] [address] Performed By: #### L [id number] #### [facility] CLIA [id number] [address] [place] [address] [place] Calcium [Mass/Vol] 8.2 mg/dL Low 8.5-10.2 [facility] Comment on above: Order Comment: Speci men Type: BLOOD SPECIMEN Ordering Facility: [facility] Address: [address] [place] [address] Performed By: #### L [id number] #### [facility] CLIA [id number] [address] [place] [address] [place] Chloride [Moles/Vol] 103 mmol/L Normal 97-105 [facility] Comment on above: Order Comment: Speci men Type: BLOOD SPECIMEN Ordering Facility: [facility] Address: [address] [place] [address] Performed By: #### L [id number] #### [facility] CLIA [id number] [address] [place] [address] [place] CO2 [Moles/Vol] 30 mmol/L Normal 22-30 [facility] Comment on above: Order Comment: Jean weems Type: BLOOD SPECIMEN Order[facility] Facility: [facility] Address: [address] [address] Performed By: #### L [id number] #### [facility] CLIA [id number] [address] STATES [facility] Creatinine [Mass/Vol] 1.14 mg/dL High 0.58-0.[address] [facility] Comment on above: Order Comment: Jean weems Type: BLOOD SPECIMEN Ordering Facility: [facility] Address: [address] [address] Performed By: #### L [id number] #### [facility] CLIA [id number] [address] ESTIMATED GLOMERULAR FILTRATION RATE 48 mL/min/1.73m??? Low >=60 [facility] Comment on above: Order Comment: Jean weems Type: BLOOD SPECIMEN Order[facility] Facility: [facility] Address: [address] [place] [address] Result Comment: Harika mated Glomerular Filtration Rate [...] reflect actual GFR. Performed By: #### L [id number] #### [facility] CLIA [id number] [address] Glucose [Mass/Vol] 87 mg/dL Normal 74-99 [facility] Comment on above: Order Comment: Jean dank Type: BLOOD SPECIMEN Order[facility] Facility: [facility] Address: [address] [place] [address] Result Comment: The [place] [employer] (ADA) provides guidance for cutoff [...] Standards of Medical Care in Diabetes 2016, [place] [employer]. Diabetes Care. 2016.39(Suppl 1). Performed By: #### L [id number] #### [facility] CLIA [id number] [address] Potassium [Moles/Vol] 3.3 mmol/L Low 3.7-5.[address] [facility] Comment on above: Order Comment: Jean weems Type: BLOOD SPECIMEN Order[facility] Facility: [facility] Address: [address] [place] [address] Performed By: #### L [id number] #### [facility] CLIA [id number] [address] [place] [address] [place] Protein [Mass/Vol] 5.5 g/dL Low 6.3-8.0 [facility] Comment on above: Order Comment: Jean weems Type: BLOOD SPECIMEN Order[facility] Facility: [facility] Address: [address] [place] [address] Performed By: #### L [id number] #### [facility] CLIA [id number] [address] Sodium [Moles/Vol] 141 mmol/L Normal 136-144 [facility] Comment on above: Order Comment: Jean weems Type: BLOOD SPECIMEN Ordering Facility: [facility] Address: [address] [place] [address] Performed By: #### L [id number] #### [facility] CLIA [id number] [address] [place] Urea nitrogen [Mass/Vol] 14 mg/dL Normal 7-21 [facility] Comment on above: Order Comment: Jean weems Type: BLOOD SPECIMEN [facility] Facility: [facility] Address: [address] [place] [address] Performed By: #### L [id number], 1987-12 #### [facility] CLIA [id number] [address] [id number] [place] Creatinine Unsp time (U) [Ma ss/Vol]on 03-30-2023 Creatinine (U) [Mass/Vol] 89.0 mg/dL Normal 20.0-300.0 [facility] Comment on above: Order Comment: Speci men Type: BLOOD SPECIMEN Order[facility] Facility: [facility] Address: [address] [place] [address] Performed By: #### 4 091-5 #### [facility] CLIA [id number] [address] [place] ESR Westergren method (Bld) [Velocity]on 03-30-2023 ESR (Bld) [Velocity] 98 mm/h High 0-20 [facility] Comment on above: Order Comment: Speci men Type: BLOOD SPECIMENOrdering Facility: [facility] Address: [address] [place] [address] Performed By: #### 4 537-7 ####[facility] [id number] [address] [place] HISTORY PHYSICALon HISTORY PHYSICAL HNO ID: [id number] Author: Tu Greer DO Service: Hospital Medicine Author Type: Physician Type: HANDP Filed: 03/30/2023 3:15 AM Note Text: DEPARTMENT OF HOSPITAL MEDICINE HISTORY AND PHYSICAL EXAM SERVICE DATE: 03/30/2023 SERVICE TIME: 2:45 AM Primary Care Physician: Tyler Benitez MD NIGHT COVERAGE: Please page [facility] [place] [phone] for any issues or concerns Subjective CHIEF [...] painful and red. She was seen at [facility] and treated with antibiotics and discharged [...] of O (more content not included)... Normal [facility] Magnesium SerPl-mCncon 03-30 Magnesium [Mass/Vol] 2.0 mg/dL Normal 1.7-2.3 [facility] Comment on above: Order Comment: Speci men Type: BLOOD SPECIMEN Order[facility] Facility: [facility] Address: [address] [place] [address] Performed By: #### L [id number], 1987-12 #### [facility] CLIA [id number] [address] [place] [address] [place] UREA NITROGEN RND URon 03-30 Urea nitrogen [Mass/Vol] 476 mg/dL Normal 140-1500 [facility] Comment on above: Order Comment: Speci men Type: BLOOD SPECIMEN Ordering Facility: [facility] Address: [facility] [address] Performed By: #### 4 091-5 #### [facility] CLIA [id number] [address] [place] [address] [place] US DVT LOWER [...] imaged segments of the left lower extremity. Wastewater Technician: ANGEL Transcribe Date/Time: Aug 5 2023 9:32A Dictated by : SHAYNA DALE MD This examination was interpreted and the report reviewed and electronically signed by: SHAYNA DALE MD on Mar 30 2023 9:34AM EST [id number] [facility] Vancomycin Pyatt SerPl-mCncon 03-30-2023 Vancomycin random [Mass/Vol] 19.4 ug/mL Normal 10.0-20.0 [facility] Comment on above: Order Comment: Speci men Type: BLOOD SPECIMEN Ordering Facility: [facility] Address: [facility] [place] [address] Result Comment: Refe rence ranges and high/low indicator flags are provided as general guidelines only. The treating physician must determine appropriate target levels/dosing based on the specific clinical situation. Performed By: #### 4 091-5 #### [facility] CLIA [id number] [address] [place] [address] [facility] ALLIED HEALTHon 03-29-2023 ALLIED HEALTH HNO ID: [id number] Author: Amy Wall RT(R) Service: Radiology Author Type: Food And Beverage Operations Manager Type: Allied Health Filed: 03/29/2023 6:56 [...] WEST MirandaR) March 29, 2023 6:56 PM [facility] HNO ID: [id number] Author: Wyand, Amy K, RT(R) Service: Radiology Author Type: Food And Beverage Operations Manager Type: Allied Health Filed: 03/29/2023 6:02 PM Note Text: @9184 this tech spoke to nurse about chest x ray images, a chest 2 v vs a 1 v and which would the doctor prefer, nurse will talk to doctor and get back to x ray on this matter. Normal [facility] Bacteria Bld Culton 03-29-20 Bacteria identified Cx Nom (Bld) CULTURE, BLOOD: No growth 6 days Normal [facility] Comment on above: Performed By: #### 6 00-7 ####[facility] [id number] [address] Bacteria identified Cx Nom (Bld) CULTURE, BLOOD: No growth 5 days Normal [facility] Comment on above: Performed By: #### 6 -7 ####[facility] [id number] [address] CBC W Auto Differential pane l (Bld)on 03-29-2023 Basophils (Bld) [#/Vol] 0.03 10*3/uL Normal <0.11 [facility] Comment on above: Order Comment: Speci men Type: BLOOD SPECIMEN [facility] Address: [address] [place] [address] Performed By: #### L [id number] #### [facility] CLIA [id number] [address] Basophils/100 WBC (Bld) 0.3 % Normal [facility] Comment on above: Order Comment: Speci men Type: BLOOD SPECIMEN [facility] Facility: [facility] Address: [address] [place] [address] Performed By: #### L [id number] #### [facility] CLIA [id number] [address] [place] Differential cell count method Nom (Bld) Auto [facility] Comment on above: Order Comment: Speci men Type: BLOOD SPECIMEN [facility] Facility: [facility] Address: [address] [place] [address] Performed By: #### L [id number] #### [facility] CLIA [id number] [address] [place] [address] [place] Eosinophils (Bld) [#/Vol] 0.08 10*3/uL Normal <0.46 [facility] Comment on above: Order Comment: Speci men Type: BLOOD SPECIMEN [facility] Facility: [facility] Address: [address] [place] [address] Performed By: #### L [id number] #### [facility] CLIA [id number] [address] [place] Eosinophils/100 WBC (Bld) 0.9 % Normal [facility] Comment on above: Order Comment: Speci men Type: BLOOD SPECIMEN [facility]ing Facility: [facility] Address: [address] [place] [address] Performed By: #### L [id number] #### [facility] CLIA [id number] [address] [place] Erythrocyte distribution width (RBC) [Ratio] 14.0 % Normal 11.5-15.0 [facility] Comment on above: Order Comment: Speci men Type: BLOOD SPECIMEN [facility] Facility: [facility] Address: [address] [place] [address] Performed By: #### L [id number] #### [facility] CLIA [id number] [address] [place] Hematocrit (Bld) [Volume fraction] 29.7 % Low 36.0-46.0 [facility] Comment on above: Order Comment: Speci men Type: BLOOD SPECIMEN Ordering Facility: [facility] Address: [address] [place] [address] Performed By: #### L [id number] #### [facility] CLIA [id number] [address] [place] Hemoglobin (Bld) [Mass/Vol] 9.3 g/dL Low 11.5-15.5 [facility] Comment on above: Order Comment: Speci men Type: BLOOD SPECIMEN Ordering Facility: [facility] Address: [address] [address] Performed By: #### L [id number] #### [facility] CLIA [id number] [address] Immature granulocytes (Bld) [#/Vol] 0.05 10*3/uL Normal <0.10 [facility] Comment on above: Order Comment: Speci men Type: BLOOD SPECIMEN Order[facility] Facility: [facility] Address: [address] [address] Performed By: #### L [id number] #### [facility] CLIA [id number] [address] Immature granulocytes/100 WBC (Bld) 0.6 % Normal [facility] Comment on above: Order Comment: Speci men Type: BLOOD SPECIMEN [facility] Facility: [facility] Address: [address] [place] [address] Performed By: #### L [id number] #### [facility] CLIA [id number] [address] Lymphocytes (Bld) [#/Vol] 0.82 10*3/uL Low 1.00-4.00 [facility] Comment on above: Order Comment: Speci men Type: BLOOD SPECIMEN [facility] Facility[facility] Address: [address] [place] [address] Performed By: #### L [id number] #### [facility] CLIA [id number] [address] Lymphocytes/100 WBC (Bld) 9.0 % Normal [facility] Comment on above: Order Comment: Speci men Type: BLOOD SPECIMEN [facility]ing Facility: [facility] Address: [address] [place] [address] Performed By: #### L [id number] #### [facility] CLIA [id number] [address] OF [facility] MCH (RBC) [Entitic mass] 27.9 pg Normal 26.0-34.0 [facility] Comment on above: Order Comment: Speci men Type: BLOOD SPECIMEN Ordering Facility: [facility] Address: [address] [place] [address] Performed By: #### L [id number] #### [facility] CLIA [id number] [address] MCHC (RBC) [Mass/Vol] 31.3 g/dL Normal 30.5-36.[address] [facility] Comment on above: Order Comment: Speci men Type: BLOOD SPECIMEN [facility]ing Facility: [facility] Address: [address] [place] [address] Performed By: #### L [id number] #### [facility] CLIA [id number] [address] MCV (RBC) [Entitic vol] 89.2 fL Normal 80.0-100.0 [facility] Comment on above: Order Comment: Speci men Type: BLOOD SPECIMEN [facility]ing Facility: [facility] Address: [address] [place], [place] [address] Performed By: #### L [id number] #### [facility] CLIA [id number] [address] Monocytes (Bld) [#/Vol] 0.75 10*3/uL Normal <0.87 [facility] Comment on above: Order Comment: Speci men Type: BLOOD SPECIMEN [facility]ing Facility: [facility] Address: [address] Performed By: #### L [id number] #### [facility] CLIA [id number] [address] Monocytes/100 WBC (Bld) 8.3 % Normal [facility] Comment on above: Order Comment: Speci men Type: BLOOD SPECIMEN [facility]ing Facility: [facility] Address: [address] [place] [place] [address] Performed By: #### L [id number] #### [facility] CLIA [id number] [address] OF [place] Neutrophils (Bld) [#/Vol] 7.34 10*3/uL Normal 1.45-7.50 [facility] Comment on above: Order Comment: Speci men Type: BLOOD SPECIMEN [facility] Facility: [facility] Address: [address] [place] [place] [address] Performed By: #### L [id number], 1987-12 #### [facility] CLIA [id number] [address] [place] Neutrophils/100 WBC (Bld) 80.9 % Normal [facility] Comment on above: Order Comment: Speci men Type: BLOOD SPECIMEN [facility]ing Facility: [facility] Address: [address] [place] [place] [address] Performed By: #### L [id number] #### [facility] CLIA [id number] [address] STATES [place] Nucleated RBC (Bld) [#/Vol] 10*3/uL Normal <0.01 [facility] Comment on above: Order Comment: Speci men Type: BLOOD SPECIMEN [facility] Facility: [facility] Address: [address] [place] [place] [address] Performed By: #### L [id number] #### [facility] CLIA [id number] [address] Nucleated RBC/100 WBC (Bld) [Ratio] 0.0 /100 WBC Normal [facility] Comment on above: Order Comment: Speci men Type: BLOOD SPECIMEN [facility] Facility: [facility] Address: [address] [place] [place] [address] Performed By: #### L [id number] #### [facility] CLIA [id number] [address] Platelet mean volume (Bld) [Entitic vol] 10.6 fL Normal 9.0-12.7 [facility] Comment on above: Order Comment: Speci men Type: BLOOD SPECIMEN [facility] Facility: [facility] Address: [address] [place] [place] [address] Performed By: #### L [id number] #### [facility] CLIA [id number] [address] OF [place] Platelets (Bld) [#/Vol] 396 10*3/uL Normal 150-400 [facility] Comment on above: Order Comment: Speci men Type: BLOOD SPECIMEN [facility]ing Facility: [facility] Address: [address] [place] [address] Performed By: #### L [id number], 1987-12 #### [facility] CLIA [id number] [address] [place] [address] [place] RBC (Bld) [#/Vol] 3.33 10*6/uL Low 3.90-5.20 [facility] Comment on above: Order Comment: Speci men Type: BLOOD SPECIMEN [facility] Facility[facility] Address: [address] [place] [address] Performed By: #### L [id number] #### [facility] CLIA [id number] [address] [place] [address] OF [facility] WBC (Bld) [#/Vol] 9.07 10*3/uL Normal 3.70-11.00 [facility] Comment on above: Order Comment: Speci men Type: BLOOD SPECIMEN [facility] Facility: [facility] Address: [address] [place] [address] Performed By: #### L [id number] #### [facility] CLIA [id number] [address] [place] [address] OF [place] CK SerPl-cCncon 03-29-2023 CK [Catalytic activity/Vol] 40 U/L Low 42-196 [facility] Comment on above: Order Comment: Speci men Type: BLOOD SPECIMENOrdering Facility: [facility] Address: [address] [place] [address] Performed By: #### 3 3762-6, 2157-6, SFA3889, 31380-9 ####[facility]ORY[facility]IA [id number] [place] [address] OF [facility] CONSULT PROGon 03-29-2023 CONSULT PROG HNO ID: [id number] Author: Dino Xavier RPh Service: Pharmacy Author [...] have any questions, please contact pharmacy at [phone]. Age: [age] year old Allergies: ALLERGIES Allergen [...] No results found for: MARIJABEVERLY Dino Xavier, [facility] Normal [facility] CRP SerPl-mCncon 03-29-2023 CRP [Mass/Vol] 9.0 mg/dL High <0.9 [facility] Comment on above: Order Comment: Speci men Type: BLOOD SPECIMEN [facility] Address: [address] [place] [address] Performed By: #### L [id number], 1987-12 #### [facility] CLIA [id number] [address] STATES OF [facility] Comprehensive metabolic 2000 panelon 03-29-2023 Albumin [Mass/Vol] 2.6 g/dL Low 3.9-4.9 [facility] Comment on above: Order Comment: Speci men Type: BLOOD SPECIMENOrdering Facility: [facility] Address: [address] [place] [address] Performed By: #### 3 3762-6, 6, [id number], 19317-6 ####[facility] [id number] [address] STATES OF [facility] ALP [Catalytic activity/Vol] 82 U/L Normal 34-123 [facility] Comment on above: Order Comment: Speci men Type: BLOOD SPECIMENOrdering Facility: [facility] Address: [address] [address] Performed By: #### 3 3762-6, 2157-01, [id number], 53993-4 ####[facility]IA [id number] [address] ALT [Catalytic activity/Vol] 9 U/L Normal 7-38 [facility] Comment on above: Order Comment: Speci men Type: BLOOD SPECIMENOrdering Facility: [facility] Address: [address] [place] [address] Performed By: #### 3 3762-6, 6, [id number], 09224-5 ####[facility]IA [id number] [address] STATES [facility] Anion gap [Moles/Vol] 10 mmol/L Normal 9-[address] [facility] Comment on above: Order Comment: Speci men Type: BLOOD SPECIMENOrdering Facility: [facility] Address: [address] [place] [address] Performed By: #### 3 3762-6, 6, [id number], 26338-0 ####[facility]ORYCLIA [id number] [place] [address] [place] AST [Catalytic activity/Vol] 17 U/L Normal 13-35 [facility] Comment on above: Order Comment: Speci men Type: BLOOD SPECIMENOrdering Facility: [facility] Address: [address] [place] [place] [address] Performed By: #### 3 3762-6, 2157-01, [id number], 08848-3 ####[facility]CL[facility] [id number] [address] [place] Bilirubin [Mass/Vol] 0.3 mg/dL Normal 0.2-1.3 [facility] Comment on above: Order Comment: Speci men Type: BLOOD SPECIMENOrdering Facility: [facility] Address: [address] [place] [address] Performed By: #### 3 3762-6, 2157-01, SZI3857, 43324-6 ####[facility] [id number] [address] STATES OF [facility] Calcium [Mass/Vol] 8.8 mg/dL Normal 8.5-10.2 [facility] Comment on above: Order Comment: Speci men Type: BLOOD SPECIMENOrdering Facility: [facility] Address: [address] [place] [address] Performed By: #### 3 3762-6, 6, ODS2230, 25892-1 ####[facility]ORYCLIA [id number] [place] [address] [place] [facility] Chloride [Moles/Vol] 102 mmol/L Normal 97-105 [facility] Comment on above: Order Comment: Jean weems Type: BLOOD SPECIMENOrdering Facility: [facility] Address: [address] [place] [address] Performed By: #### 3 3762-6, 2157-6, OKC4535, 71285-5 ####[facility] [id number] [address] CO2 [Moles/Vol] 30 mmol/L Normal 22-30 [facility] Comment on above: Order Comment: Speci men Type: BLOOD SPECIMENOrdering Facility: [facility] Address: [address] [place] [address] Performed By: #### 3 3762-6, 2157-6, HZC8321, 37397-7 ####[facility]IA [id number] [place] [address] [place] Creatinine [Mass/Vol] 1.37 mg/dL High 0.58-0.[address] [facility] Comment on above: Order Comment: Speci men Type: BLOOD SPECIMENOrdering Facility: [facility] Address: [address] [place] [address] Performed By: #### 3 3762-6, 21576, JEL6779, 67325-4 ####[facility]CLIA [id number] [address] OF [facility] ESTIMATED GLOMERULAR FILTRATION RATE 38 mL/min/1.73m??? Low >=60 [facility] Comment on above: Order Comment: Jean weems Type: BLOOD SPECIMENOrdering Facility: [facility] Address: [address] [place] [address] Result Comment: Harika mated Glomerular Filtration Rate [...] GFR. Performed By: #### 3 3762-6, 7-6, IHT4230, 77381-4 ####[facility]ORYCLIA [id number] [place] [address] [place] Glucose [Mass/Vol] 133 mg/dL High 74-99 [facility] Comment on above: Order Comment: Jean dank Type: BLOOD SPECIMENOrdering Facility: [facility] Address: [address] [place] [address] Result Comment: The [place] [employer] (ADA) provides guidance for cutoff [...] Standards of Medical Care in Diabetes 2016, [place] [employer]. Diabetes Care. 2016.39(Suppl 1). Performed By: #### 3 3762-6, 6, AEK3818, 31270-7 ####[facility]IA [id number] [place] [id number] [place] Potassium [Moles/Vol] 3.2 mmol/L Low 3.7-5.[address] [facility] Comment on above: Order Comment: Jean weems Type: BLOOD SPECIMENOrdering Facility: [facility] Address: [address] [place] [id number] Performed By: #### 3 3762-6, 2156-6, NPR1536, 27434-8 ####[facility]ORYCLIA [id number] [place] [address] [place] Protein [Mass/Vol] 6.4 g/dL Normal 6.3-8.0 [facility] Comment on above: Order Comment: Jean dank Type: BLOOD SPECIMENOrdering Facility: [facility] Address: [address] [place] [address] Performed By: #### 3 3762-6, 2157-6, JQC5106, 08339-7 ####[facility]ORYCLIA [id number] [place] [id number] [facility] Sodium [Moles/Vol] 142 mmol/L Normal 136-144 [facility] Comment on above: Order Comment: Speci men Type: BLOOD SPECIMENOrdering Facility: [facility] Address: [address] [place], [place] [address] Performed By: #### 3 3762-6, 2157-6, JAY1030, 93737-7 ####[facility]CLIA [id number] [place] [id number] [facility] Urea nitrogen [Mass/Vol] 16 mg/dL Normal 7-21 [facility] Comment on above: Order Comment: Speci men Type: BLOOD SPECIMENOrdering Facility: [facility] Address: [address] [place], [place] [address] Performed By: #### 3 3762-6, 6, UGQ5807, 09472-7 ####[facility]CLIA [id number] [place] [id number] [facility] ECG COMPLETEon 03-29-2023 ECG COMPLETE Ventricular Rate : 1 05 BPM Atrial Rate : 105 BPM P-R Interval : 166 ms QRS Duration : 96 ms Q-T Interval : 354 ms QTC Calculation(Bazett) : 467 ms Calculated P [place] : 81 degrees Calculated R [place] : -11 degrees Calculated T [place] : 29 degrees SINUS TACHYCARDIA MODERATE VOLTAGE CRITERIA FOR LVH, MAY BE NORMAL VARIANT INFERIOR INFARCT , AGE UNDETERMINED ABNORMAL ECG no stemi Confirmed by Pawel HERNADEZ ERIKA ([id number]), makeup editor KELSEY MONTEIRO (1945) on 03/30/2023 9:06:45 AM NAME : AMBER KOROMA PID : [id number] : 1940 Gender : Female Race : ORD : [id number] Procedure Date : Mar 29 2023 17:45:18 Edit Date : Mar 30 2023 09:06:52 Diagnosis: SINUS TACHYCARDIA MODERATE VOLTAGE CRITERIA FOR LVH, MAY BE NORMAL VARIANT INFERIOR INFARCT , AGE UNDETERMINED ABNORMAL ECG no stemi Confirmed by Pawel HERNADEZ ERIKA ([id number]), makeup editor KELSEY MONTEIRO (1945) on 03/30/2023 9:06:45 AM Test Reason : Chest Pain Location : 1 : ER ED Overread By : Pawel HERNADEZ ERIKA Edited By : KELSEY MONTEIRO Referred By : , Acquired by : MOLLY, [facility] ED NOTEon 03-29-2023 ED NOTE HNO ID: [id number] Author: Gold Holguin RN Service: Nursing Author Type: Registered Nurse Type: ED Notes Filed: 03/29/2023 9:22 PM Note Text: Pt is being admitted to 404 in stable condition, report given to Herb WALDEN [facility] ED PROV NOTEon 03-29-2023 ED PROV NOTE HNO ID: [id number] Author: Judith Hernadez MD Service: ? Author [...] her left leg. She was seen by [place] [facility] and admitted for cellulitis. She was [...] Normal b (more content not included)... Normal [facility] Gas and Carbon monoxide pane l (BldV)on 03-29-2023 Base excess Calc (BldV) [Moles/Vol] 8 mmol/L High 0-2 [facility] Comment on above: Order Comment: Kareni dank Type: VENOUS BLOOD SPECIMENOrdering Facility: [facility] Address: [address] [place] [address] Performed By: #### 2 4344-4 ####[facility]CLIA [id number] [facility]OS[facility] RESPIRATORY [id number] [place] [address] Carboxyhemoglobin (BldV) [Mass fraction] <1.0 Normal 0.0-2.0 [facility] Comment on above: Order Comment: Jean men Type: VENOUS BLOOD SPECIMENOrdering Facility: [facility] Address: [address] [place] [address] Result Comment: Carb oxyhemoglobin Reference Range for Smokers: 2.0-8.0% Performed By: #### 2 4344-4 ####[facility]CL[facility] [id number] [facility] [id number] [address] [address] CO2 (BldV) [Partial pressure] 52 mm[Hg] Normal 42-55 [facility] Comment on above: Order Comment: Speci men Type: VENOUS BLOOD SPECIMENOrdering Facility: [facility] Address: [address] [place] [address] Performed By: #### 2 4344-4 ####[facility]ORYCLIA [id number] [facility] RES[facility]AT[facility] [id number] [address] [address] CO2 adjusted to patient's actual temperature (BldV) [Partial pressure] Normal [facility] Comment on above: Order Comment: Speci men Type: VENOUS BLOOD SPECIMENOrdering Facility: [facility] Address: [address] [place] [address] Performed By: #### 2 4344-4 ####[facility]ORYCLIA [id number] [facility]OS[facility] RESPIRATORY [id number] [address] [address] HCO3 (Bld) [Moles/Vol] 33 mmol/L High 24-28 [facility] Comment on above: Order Comment: Speci men Type: VENOUS BLOOD SPECIMENOrdering Facility: [facility] Address: [address] [place] [address] Performed By: #### 2 4344-4 ####[facility] RESPIRATORYIA [id number] [facility] RES[facility] [id number] [address] [address] Hemoglobin (Bld) [Mass/Vol] 12.4 g/dL Normal 11.5-15.5 [facility] Comment on above: Order Comment: Speci men Type: VENOUS BLOOD SPECIMENOrdering Facility: [facility] Address: [address] [place] [address] Performed By: #### 2 4344-4 ####[facility]ORYCLIA [id number] [facility]OS[facility] RESPIRATORY [id number] [address] [address] Lactate [Moles/Vol] 1.8 mmol/L Normal 0.5-2.2 [facility] Comment on above: Order Comment: Speci men Type: VENOUS BLOOD SPECIMENOrdering Facility: [facility] Address: [address] [place] [address] Performed By: #### 2 4344-4 ####[facility]CL[facility] [id number] [facility] RES[facility]IR[facility] [id number] [address] [address] Methemoglobin (Bld) [Mass fraction] % Normal 0.0-1.5 [facility] Comment on above: Order Comment: Speci men Type: VENOUS BLOOD SPECIMENOrdering Facility: [facility] Address: [address] [place] [address] Performed By: #### 2 4344-4 ####[facility]ORYCLIA [id number] [facility]OS[facility] RES[facility]IRAT[facility] [id number] [address] [address] O2 THERAPY RA=Room Air [facility] Comment on above: Order Comment: Speci men Type: VENOUS BLOOD SPECIMENOrdering Facility: [facility] Address: [address] [place] [address] Performed By: #### 2 4344-4 ####[facility] RESPIRATORYIA [id number] [facility]OS[facility] RESPIRATORY [id number] [address] [address] Oxygen (BldV) [Partial pressure] mm[Hg] Low 35-45 [facility] Comment on above: Order Comment: Speci men Type: VENOUS BLOOD SPECIMENOrdering Facility: [facility] Address: [address] Performed By: #### 2 4344-4 ####[facility]ATORYCLIA [id number] [facility]OS[facility] RESPIRATORY [id number] [address] [address] Oxygen adjusted to patient's actual temperature (BldV) [Partial pressure] Normal [facility] Comment on above: Order Comment: Speci men Type: VENOUS BLOOD SPECIMENOrdering Facility: [facility] Address: [address] [place] [address] Performed By: #### 2 4344-4 ####[facility]IRATORYCLIA [id number] [facility] RESPIRATORY [id number] [place] [address] Oxyhemoglobin (BldV) [Mass fraction] 37 % Low 60-85 [facility] Comment on above: Order Comment: Speci men Type: VENOUS BLOOD SPECIMENOrdering Facility: [facility] Address: [address] [place] [address] Performed By: #### 2 4344-4 ####[facility] RESPIRATORYIA [id number] [facility] RESPIRATORY [id number] [place] [address] pH (BldV) 7.42 [pH] Normal 7.32-7.42 [facility] Comment on above: Order Comment: Speci men Type: VENOUS BLOOD SPECIMENOrdering Facility: [facility] Address: [address] [place] [address] Performed By: #### 2 4344-4 ####[facility] [id number] HOSPITAL RESPIRATORY [id number] [place] [address] pH adjusted to patient's actual temperature (BldV) Normal [facility] Comment on above: Order Comment: Speci men Type: VENOUS BLOOD SPECIMENOrdering Facility: [facility] Address: [address] [place] [address] Performed By: #### 2 4344-4 ####[facility]ATORYSPR[facility]FIELD [facility] [id number] HOSP[facility] RESPIRATORY [id number] [place] [address] Potassium [Moles/Vol] 3.1 mmol/L Low 3.5-5.[address] [facility] Comment on above: Order Comment: Speci men Type: VENOUS BLOOD SPECIMENOrdering Facility: [facility] Address: [address] [place] [address] Performed By: #### 2 4344-4 ####[facility]ATORYSPR[facility]FIELD [facility] [id number] [facility]OS[facility] RESPIRATORY [id number] [place] [address] HIGH SENSITIVITY TROPONIN T (INITIAL)on 03-29-2023 HIGH SENSITIVITY ALEENA 30 ng/L High <12 [facility] Comment on above: Order Comment: Speci men Type: BLOOD SPECIMENOrdering Facility: [facility] Address: [address] [place] [address] Result Comment: When assessing risk for acute [...] MACE. Performed By: #### 3 3762-6, 2157-6, YJP2903, 02947-5 ####[facility]ATORYCLIA [id number] [address] [place] HIGH SENSITIVITY TROPONIN T (SECOND)on 03-29-2023 HIGH SENSITIVITY ALEENA 29 ng/L High <12 [facility] Comment on above: Order Comment: Jean weems Type: BLOOD SPECIMEN [facility] Address: [address] [place] [address] Result Comment: When assessing risk for acute [...] 30 day MACE. Performed By: #### L AB0069, 1987-12 #### [facility] CLIA [id number] [address] [place] HIGH SENSITIVITY TROPONIN T (THIRD) 3 HRS AFTER INITIALon 03-29-2023 HIGH SENSITIVITY ALEENA 27 ng/L High <12 [facility] Comment on above: Order Comment: Jean weems Type: BLOOD SPECIMEN [facility] Address: [address] [place] [address] Result Comment: When assessing risk for acute [...] 30 day MACE. Performed By: #### L KX3822, 1987-12 #### [facility] CLIA [id number] [address] [place] [address] [facility] NT-proBNP [facility] Natriuretic peptide.B prohormone N-Terminal [Mass/Vol] 3874 pg/mL High <450 [facility] Comment on above: Order Comment: Speci men Type: BLOOD SPECIMENOrdering Facility: [facility] Address: [address] [place], [place] [address] [address] Performed By: #### 3 3762-6, 2157-6, BCO7324, 44149-6 ####[facility] LABORATORYCLIA [id number] [place], [place] [address] [place] [address] OF [facility] XR CHEST 1V FRONTAL PORTon 0 [...] Other: None. IMPRESSION: Findings as described above. Wastewater Technician: [facility] Transcribe Date/Time: Mar 29 2023 7:04P Dictated by : DENISSE ACEVEDO MD This examination was interpreted and the report reviewed and electronically signed by: DENISSE ACEVEDO MD on Mar 29 2023 7:06PM EST [id number] [facility] XR TIBIA FIBULA 2V AP/LAT [...] radiographic evidence of acute bony destructive process. Wastewater Technician: [facility] Transcribe Date/Time: Mar 29 2023 7:03P Dictated by : ALECIA GARCIA MD This examination was interpreted and the report reviewed and electronically signed by: ALECIA GARCIA MD on Mar 29 2023 7:05PM EST [id number] Normal [facility] Absolute lymphocyte countOrd ered By: Armand Bob on 03-19-2023 Lymphocytes Auto (Unsp spec) [#/Vol] 1.57 10*3/uL 0.83-4.51 [facility] Basophil percentageOrdered B y: Armand Bob on 03-19-2023 Basophil percentage Not Reportable [facility] Basophil percentage 2.0 mg/dL 2.5-4.9 [facility] Chloride [Moles/Vol] 110 mmol/L 98-107 [facility] Glucose [Mass/Vol] 92 mg/dL 74-106 [facility] Neutrophils (Bld) [#/Vol] 10.9 10*3/uL 2.0-7.7 [facility] Potassium [Moles/Vol] 3.6 mmol/L 3.5-5.1 [facility] Sodium [Moles/Vol] 138 mmol/L 136-145 [place] [facility] WBC (Bld) [#/Vol] 13.1 10*3/uL 4.4-11.0 [facility] Blood band neutrophil count as percentage of total leukocytesOrdered By: Armand Bob on 03-19-2023 Band form neutrophils/100 WBC (Bld) 15 % 0-5 [facility] Blood erythrocytes count (nu mber/volume)Ordered By: Armand Bbo on 03-19-2023 RBC (Bld) [#/Vol] 3.28 10*6/uL 4.2-5.4 [facility] Blood hemoglobin measurement (mass/volume)Ordered By: Armand Bob on 03-19-2023 Hemoglobin (Bld) [Mass/Vol] 9.5 g/dL 12.0-15.0 [facility] Blood lymphocytes/100 leukoc ytesOrdered By: Armand Bob on 03-19-2023 Lymphocytes/100 WBC (Bld) 12 % 19-41 [facility] Blood monocytes/100 leukocyt esOrdered By: Armand Bob on 03-19-2023 Monocytes/100 WBC (Bld) 4 % 0-10 [facility] Blood platelet adequacy dete ction by light microscopyOrdered By: Armand Bob on 03-19-2023 Platelets LM Ql (Bld) SLT DEC ADEQ [facility] Blood platelet mean volumeOr dered By: Armand Bob on 03-19-2023 Platelet mean volume (Bld) [Entitic vol] 10.7 fL 6.2-12.0 [facility] Blood segmented neutrophils/ 100 leukocytesOrdered By: Armand Bob on 03-19-2023 Segmented neutrophils/100 WBC (Bld) 68 % 47-70 [facility] Determination of erythrocyte mean corpuscular volume (MCV)Ordered By: Armand Bob on 03-19-2023 MCV (RBC) [Entitic vol] 91.2 fL 81-99 [facility] Hematocrit Auto (Bld) [Volum e fraction]Ordered By: Armand Bob on 03-19-2023 Hematocrit (Bld) [Volume fraction] 29.9 % 37-47 [facility] Laboratory - Chemistry and C hemistry - challengeOrdered By: Armand Bob on 03-19-2023 CO2 [Moles/Vol] 25.0 mmol/L 21.0-32.0 [facility] Magnesium [Mass/Vol] 2.0 mg/dL 1.6-2.6 [facility] Urea nitrogen/Creatinine [Mass ratio] 20.3 mg/mg 10-20 [facility] Laboratory - Hematology and Cell countsOrdered By: Armand Bob on 03-19-2023 Erythrocyte distribution width (RBC) [Entitic vol] 48.0 fL 35.1-43.9 [facility] Erythrocyte distribution width (RBC) [Ratio] 14.2 % 11.6-14.6 [facility] MCH (RBC) [Entitic mass] 29.0 pg 27.0-32.0 [facility] Myelocytes/100 WBC (Bld) 1 % 0-0 [facility] MCHC Auto (RBC) [Mass/Vol]Or dered By: Armand Bob on 03-19-2023 MCHC (RBC) [Mass/Vol] 31.8 g/dL 32-36 [facility] No Panel InformationOrdered By: Armand Bob on 03-19-2023 Estimated Creatinine Clearance Calc 44.42 ml/min [facility] Estimated GFR (MDRD) Amer 51 mL/min >60 [facility] Comment on above: GFR Calc Estimated GFR (MDRD) Non-Af Amer 42 mL/min >60 [facility] Comment on above: Non- GFR Calc Platelets bldOrdered By: Sarbjit Bob on 03-19-2023 Platelets (Bld) [#/Vol] 136 10*3/uL 150-450 [facility] RBC morphologyOrdered By: Gumaro Bob on 03-19-2023 RBC morphology finding Nom (Bld) NORM C+C NORMAL NORM C&C [facility] Review by pathologistOrdered By: Armand Bob on 03-19-2023 Pathologist review Bryce (Unsp spec) [Interp] Reviewed [facility] Comment on above: Previous reported re sult: Narda angel Edited by: [email or web address] on 03/20/23:1011Neutrophilic leukocytosis.Normocytic anemia.Mild Thrombocytopenia.Clinical correlation necessary.Rainer Nelson M.D. 03/20/23 AMENDED REPORT 03/20/23 1011 PATH REV previously reported as: December foll Serum or plasma calcium lakeisha urement (mass/volume)Ordered By: Armand Bob on 03-19-2023 Calcium [Mass/Vol] 7.8 mg/dL 8.5-10.1 [facility] Serum or plasma creatinine m easurement (mass/volume)Ordered By: Armand Bob on 03-19-2023 Creatinine [Mass/Vol] 1.28 mg/dL 0.55-1.02 [facility] Comment on above: The validity of the calculated GFR & GFRAA in patients over 70 years has not been determined. Clinical correlation is essential. Serum or plasma urea nitroge n measurement (mass/volume)Ordered By: Armand Bob on 03-19-2023 Urea nitrogen [Mass/Vol] 26 mg/dL 7-18 [facility] Thin prep Papanicolaou smear with manual screeningOrdered By: Armand Bob on 03-19-2023 Thin prep Papanicolaou smear with manual screening 3 5-15 [facility] Total cell countOrdered By: Armand Bob on 03-19-2023 Cells counted Molgen (Bld/Tiss) [#] 100 MANUAL DIFF [facility] Basophil percentageOrdered B y: Nata Rivers on 03-18-2023 Basophils/100 WBC (Bld) 0.2 % 0-1 [facility] Eosinophils/100 WBC (Bld) 0.0 % 0-5 [facility] Blood lymphocytes/100 leukoc ytesOrdered By: Nata Rivers on 03-18-2023 Lymphocytes/100 WBC (Bld) 3.7 % 19-41 [facility] Blood manual differential co mment interpretation (narrative result)Ordered By: Nata Rivers on 03-18-2023 Manual differential comment Bryce (Bld) [Interp] SCANNED [facility] Comment on above: LYMPHOPENIALEFT SHIF T PRESENT BANDS 2+ Blood monocytes/100 leukocyt esOrdered By: Nata Rivers on 03-18-2023 Monocytes/100 WBC (Bld) 4.5 % 0-10 [facility] Laboratory - Hematology and Cell countsOrdered By: Nata Rivers on 03-18-2023 Immature granulocytes/100 WBC (Bld) 2.100 % 0.0-0.9 [facility] Comment on above: IG% - Immature Granu locytes (promyelocytes, myelocytes and metamyelocytes) > 1% indicates that a LEFT SHIFT is Present. Nucleated RBC/100 WBC (Bld) [Ratio] 0 % 0-5 [facility] Basophil percentageOrdered B y: Familia Smalls on 03-17-2023 Lactate [Moles/Vol] 1.5 mmol/L 0.4-2.0 [facility] Bilirubin [Mass/Vol] 0.60 mg/dL 0.20-1.00 [facility] Comment on above: For patients on eltr ombopag therapy, use of Dimension Salol TBIL is not recommended. Protein [Mass/Vol] 7.8 g/dL 6.4-8.2 [facility] INR in Blood by Coagulation assayOrdered By: Familia Smalls on 03-17-2023 INR Coag (Bld) [Relative time] 1.2 {INR} [facility] Laboratory - Chemistry and C hemistry - challengeOrdered By: Familia Smalls on 03-17-2023 ALP [Catalytic activity/Vol] 82 U/L 45-117 [facility] ALT [Catalytic activity/Vol] 16 U/L 13-56 [facility] Globulin (S) [Mass/Vol] 5.0 g/dL 2.2-4.[address] [facility] Laboratory - CoagulationOrde red By: Familia Smalls on 03-17-2023 aPTT Coag (Bld) [Time] 32.6 s 24.1-36.2 [facility] PT Coag (PPP) [Time] 15.5 s 11.7-14.9 [facility] Laboratory - Microbiology an d Antimicrobial susceptibilityOrdered By: Familia Smalls on 03-17-2023 Bacteria identified Cx Nom (Bld) No growth in 5 days. [facility] Bacteria identified Cx Nom (Bld) No growth in 5 days. [facility] Serum or plasma albumin lakeisha urement (mass/volume)Ordered By: Familia Smalls on 03-17-2023 Albumin [Mass/Vol] 2.8 g/dL 3.2-5.0 [facility] Serum or plasma albumin/glob ulin mass ratioOrdered By: Familia Smalls on 03-17-2023 Albumin/Globulin [Mass ratio] 0.6 {ratio} 0.9-2.4 [facility] Thin prep Papanicolaou smear with manual screeningOrdered By: Familia Smalls on 03-17-2023 Thin prep Papanicolaou smear with manual screening 20 U/L 15-37 [facility] Absolute lymphocyte countOrd ered By: ED PROVIDER on 01-15-2023 Lymphocytes Auto (Unsp spec) [#/Vol] 1.19 10*3/uL 0.83-4.51 [facility] Basophil percentageOrdered B y: ED PROVIDER on 01-15-2023 Basophils/100 WBC (Bld) 0.5 % 0-[address] [facility] Chloride [Moles/Vol] 105 mmol/L 98-107 [facility] Eosinophils/100 WBC (Bld) 1.2 % 0-5 [facility] Glucose [Mass/Vol] 96 mg/dL 74-106 [facility] Neutrophils (Bld) [#/Vol] 4.3 10*3/uL 2.0-7.7 [facility] Neutrophils/100 WBC (Bld) 67.5 % 47-70 [facility] Potassium [Moles/Vol] 3.6 mmol/L 3.5-5.1 [facility] Sodium [Moles/Vol] 140 mmol/L 136-145 [facility] WBC (Bld) [#/Vol] 6.4 10*3/uL 4.4-11.0 [facility] Blood erythrocytes count (nu mber/volume)Ordered By: ED PROVIDER on 01-15-2023 RBC (Bld) [#/Vol] 3.71 10*6/uL 4.2-5.4 [facility] Blood hemoglobin measurement (mass/volume)Ordered By: ED PROVIDER on 01-15-2023 Hemoglobin (Bld) [Mass/Vol] 10.6 g/dL 12.0-15.0 [facility] Blood lymphocytes/100 leukoc ytesOrdered By: ED PROVIDER on 01-15-2023 Lymphocytes/100 WBC (Bld) 18.6 % 19-41 [facility] Blood monocytes/100 leukocyt esOrdered By: ED PROVIDER on 01-15-2023 Monocytes/100 WBC (Bld) 11.9 % 0-10 [facility] Blood platelet mean volumeOr dered By: ED PROVIDER on 01-15-2023 Platelet mean volume (Bld) [Entitic vol] 10.2 fL 6.2-12.0 [facility] Determination of erythrocyte mean corpuscular volume (MCV)Ordered By: ED PROVIDER on 01-15-2023 MCV (RBC) [Entitic vol] 89.5 fL 81-99 [facility] Hematocrit Auto (Bld) [Volum e fraction]Ordered By: ED PROVIDER on 01-15-2023 Hematocrit (Bld) [Volume fraction] 33.2 % 37-47 [facility] Influenza virus A and B and SARS-CoV-2 (COVID-19) Ag panel - Upper respiratory specimOrdered By: ED PROVIDER on 01-15-2023 SARS-CoV-2 (COVID-19) RNA KEERTHI+probe Ql (Resp) [facility] Laboratory - Chemistry and C hemistry - challengeOrdered By: ED PROVIDER on 01-15-2023 CO2 [Moles/Vol] 29.0 mmol/L 21.0-32.0 [facility] Natriuretic peptide B (Bld) [Mass/Vol] 147.5 pg/mL 0-100 [facility] Urea nitrogen/Creatinine [Mass ratio] 19.5 mg/mg 10-20 [facility] Laboratory - Hematology and Cell countsOrdered By: ED PROVIDER on 01-15-2023 Erythrocyte distribution width (RBC) [Entitic vol] 46.5 fL 35.1-43.9 [facility] Erythrocyte distribution width (RBC) [Ratio] 14.2 % 11.6-14.6 [facility] Immature granulocytes/100 WBC (Bld) 0.300 % 0.0-0.9 [facility] Comment on above: IG% - Immature Granu locytes (promyelocytes, myelocytes and metamyelocytes) > 1% indicates that a LEFT SHIFT is Present. MCH (RBC) [Entitic mass] 28.6 pg 27.0-32.0 [facility] Nucleated RBC/100 WBC (Bld) [Ratio] 0 % 0-5 [facility] MCHC Auto (RBC) [Mass/Vol]Or dered By: ED PROVIDER on 01-15-2023 MCHC (RBC) [Mass/Vol] 31.9 g/dL 32-36 [facility] No Panel InformationOrdered By: Deann Kaur on 01-15-2023 D-Dimer Quantitative (PE/DVT) 1.09 FEU/ug/m 0.27-0.49 [facility] Comment on above: D-Dimer ELEVATED (>0 .49): Additional studies and clinicalassessments are indicated to conclude diagnosis of:Deep Vein Thrombosis (DVT) or Pulmonary Embolism (PE)CRITICAL VALUE VERIFIED. CALLED TO [id number] Tess Serrano.RESULTS READ BACK BY SAME . Troponin I High Sensitivity 6 pg/mL 3.0-54.0 [facility] Comment on above: Please Note: New Jessica t Units and Gender Specific Reference Ranges. For more information see Policy Stat Procedure Salol High Sensitivity Troponin (TNIH) and attachments. No Panel InformationOrdered By: ED PROVIDER on 01-15-2023 Estimated Creatinine Clearance Calc 23.50 ml/min [facility] Estimated GFR (MDRD) Amer 51 mL/min >60 [facility] Comment on above: GFR Calc Estimated GFR (MDRD) Non-Af Amer 42 mL/min >60 [facility] Comment on above: Non- GFR Calc Platelets bldOrdered By: ED PROVIDER on 01-15-2023 Platelets (Bld) [#/Vol] 196 10*3/uL 150-450 [facility] Serum or plasma calcium lakeisha urement (mass/volume)Ordered By: ED PROVIDER on 01-15-2023 Calcium [Mass/Vol] 8.9 mg/dL 8.5-10.1 [facility] Serum or plasma creatinine m easurement (mass/volume)Ordered By: ED PROVIDER on 01-15-2023 Creatinine [Mass/Vol] 1.28 mg/dL 0.55-1.02 [facility] Comment on above: The validity of the calculated GFR & GFRAA in patients over 70 years has not been determined. Clinical correlation is essential. Serum or plasma urea nitroge n measurement (mass/volume)Ordered By: ED PROVIDER on 01-15-2023 Urea nitrogen [Mass/Vol] 25 mg/dL 7-18 [facility] Thin prep Papanicolaou smear with manual screeningOrdered By: ED PROVIDER on 01-15-2023 Thin prep Papanicolaou smear with manual screening [facility]RACHANA) AMBER KOROMA ([id number]) 1940 F Date Time Provider Department 01/03/23 [...] Endometrial cancer [C54.1] 03/19/2011 Cyst in hand [[id number]] 08/02/2011 Personal history of malignant neoplasm of [...] Encounter Status:Closed by JUDITH AU on 01/03/23 [facility] Absolute lymphocyte countOrd ered By: Dr. Benitez on 11-20-2022 Lymphocytes Auto (Unsp spec) [#/Vol] 1.01 10*3/uL 0.83-4.51 [facility] Basophil percentageOrdered B y: Dr. Benitez on 11-20-2022 Basophils/100 WBC (Bld) 0.5 % 0-1 [facility] Bilirubin [Mass/Vol] 0.30 mg/dL 0.20-1.00 [facility] Comment on above: For patients on eltr ombopag therapy, use of Dimension Salol TBIL is not recommended. Chloride [Moles/Vol] 105 mmol/L 98-107 [facility] Eosinophils/100 WBC (Bld) 2.0 % 0-5 [facility] Glucose [Mass/Vol] 88 mg/dL 74-106 [facility] Neutrophils (Bld) [#/Vol] 4.3 10*3/uL 2.0-7.7 [facility] Neutrophils/100 WBC (Bld) 71.4 % 47-70 [facility] Potassium [Moles/Vol] 4.9 mmol/L 3.5-5.1 [facility] Protein [Mass/Vol] 7.3 g/dL 6.4-8.2 [facility] Sodium [Moles/Vol] 135 mmol/L 136-145 [facility] WBC (Bld) [#/Vol] 6.0 10*3/uL 4.4-11.0 [facility] Blood erythrocytes count (nu mber/volume)Ordered By: Dr. Benitez on 11-20-2022 RBC (Bld) [#/Vol] 3.98 10*6/uL 4.2-5.4 [facility] Blood hemoglobin measurement (mass/volume)Ordered By: Dr. Benitez on 11-20-2022 Hemoglobin (Bld) [Mass/Vol] 11.2 g/dL 12.0-15.0 [facility] Blood lymphocytes/100 leukoc ytesOrdered By: Dr. Benitez on 11-20-2022 Lymphocytes/100 WBC (Bld) 16.7 % 19-41 [facility] Blood monocytes/100 leukocyt esOrdered By: Dr. Benitez on 11-20-2022 Monocytes/100 WBC (Bld) 9.1 % 0-[address] [facility] Blood platelet mean volumeOr dered By: Dr. Benitez on 11-20-2022 Platelet mean volume (Bld) [Entitic vol] 11.5 fL 6.2-12.0 [facility] Determination of erythrocyte mean corpuscular volume (MCV)Ordered By: Dr. Benitez on 11-20-2022 MCV (RBC) [Entitic vol] 90.2 fL 81-[address] [facility] Hematocrit Auto (Bld) [Volum e fraction]Ordered By: Dr. Benitez on 11-20-2022 Hematocrit (Bld) [Volume fraction] 35.9 % 37-47 [facility] Laboratory - Chemistry and C hemistry - challengeOrdered By: Dr. Benitez on 11-20-2022 ALP [Catalytic activity/Vol] 73 U/L 45-117 [facility] ALT [Catalytic activity/Vol] 15 U/L 13-56 [facility] CO2 [Moles/Vol] 26.0 mmol/L 21.0-32.0 [facility] Globulin (S) [Mass/Vol] 4.1 g/dL 2.2-4.2 [facility] Lipase [Catalytic activity/Vol] 185 U/L 73-393 [facility] Urea nitrogen/Creatinine [Mass ratio] 19.8 mg/mg 10-20 [facility] Laboratory - Hematology and Cell countsOrdered By: Dr. Benitez on 11-20-2022 Erythrocyte distribution width (RBC) [Entitic vol] 45.7 fL 35.1-43.9 [facility] Erythrocyte distribution width (RBC) [Ratio] 13.9 % 11.6-14.6 [facility] Immature granulocytes/100 WBC (Bld) 0.300 % 0.0-0.9 [facility] Comment on above: IG% - Immature Granu locytes (promyelocytes, myelocytes and metamyelocytes) > 1% indicates that a LEFT SHIFT is Present. MCH (RBC) [Entitic mass] 28.1 pg 27.0-32.0 [facility] Nucleated RBC/100 WBC (Bld) [Ratio] 0 % 0-5 [facility] MCHC Auto (RBC) [Mass/Vol]Or dered By: Dr. Benitez on 11-20-2022 MCHC (RBC) [Mass/Vol] 31.2 g/dL 32-36 [facility] No Panel InformationOrdered By: Dr. Benitez on 11-20-2022 Estimated GFR (MDRD) Amer 36 mL/min >60 [facility] Comment on above: GFR Calc Estimated GFR (MDRD) Non-Af Amer 30 mL/min >60 [facility] Comment on above: Non- GFR Calc Parathyroid Hormone (Intact) 161.4 pg/mL 18.4-80.1 [facility] Thyroid Stimulating Hormone (TSH) 3.26 uIU/mL 0.358-3.74 [facility] Vitamin D 25-Hydroxy 40.0 ng/mL [facility] Comment on above: Vitamin D 25(OH) Sta tus Range Deficiency <20 ng/mL (50nmol/L) Insufficiency 20 - 30 ng/mL (50 - 75 nmol/L) Sufficiency 30 - 100 ng/mL (75 - 250 nmol/L) Toxicity >100 ng/mL (>250 nmol/L) Platelets bldOrdered By: Dr. Benitez on 11-20-2022 Platelets (Bld) [#/Vol] 193 10*3/uL 150-450 [facility] Serum or plasma albumin lakeisha urement (mass/volume)Ordered By: Dr. Benitez on 11-20-2022 Albumin [Mass/Vol] 3.2 g/dL 3.2-5.0 [facility] Serum or plasma albumin/glob ulin mass ratioOrdered By: Dr. Benitez on 11-20-2022 Albumin/Globulin [Mass ratio] 0.8 {ratio} 0.9-2.4 [facility] Serum or plasma calcium lakeisha urement (mass/volume)Ordered By: Dr. Benitez on 11-20-2022 Calcium [Mass/Vol] 9.1 mg/dL 8.5-10.1 [facility] Serum or plasma creatinine m easurement (mass/volume)Ordered By: Dr. Benitez on 11-20-2022 Creatinine [Mass/Vol] 1.72 mg/dL 0.55-1.02 [facility] Comment on above: The validity of the calculated GFR & GFRAA in patients over 70 years has not been determined. Clinical correlation is essential. Serum or plasma urea nitroge n measurement (mass/volume)Ordered By: Dr. Benitez on 11-20-2022 Urea nitrogen [Mass/Vol] 34 mg/dL 7-18 [facility] Thin prep Papanicolaou smear with manual screeningOrdered By: Dr. Benitez on 11-20-2022 Thin prep Papanicolaou smear with manual screening 19 U/L 15-37 [facility] Thin prep Papanicolaou smear with manual screening 4 5-15 [facility] XR FOOT GENERAL 3V AP/LAT/OB L LEFTon 09-11-2022 [facility] Absolute lymphocyte countOrd ered By: Dr. Benitez on 07-09-2022 Lymphocytes Auto (Unsp spec) [#/Vol] 1.12 10*3/uL 0.83-4.51 [facility] Basophil percentageOrdered B y: Dr. Benitez on 07-09-2022 Basophils/100 WBC (Bld) 0.6 % 0-1 [facility] Bilirubin [Mass/Vol] 0.30 mg/dL 0.20-1.00 [facility] Comment on above: For patients on eltr ombopag therapy, use of Dimension Salol TBIL is not recommended. Chloride [Moles/Vol] 108 mmol/L 98-107 [facility] Eosinophils/100 WBC (Bld) 2.9 % 0-5 [facility] Glucose [Mass/Vol] 115 mg/dL 74-106 [facility] Comment on above: Fasting Glucose resu lt from 100 to 125 mg/dL suggests IMPAIRED HOMEOSTASIS per A.D.A. criteria. Neutrophils (Bld) [#/Vol] 4.4 10*3/uL 2.0-7.7 [facility] Neutrophils/100 WBC (Bld) 70.9 % 47-70 [facility] Potassium [Moles/Vol] 3.6 mmol/L 3.5-5.1 [facility] Protein [Mass/Vol] 7.4 g/dL 6.4-8.2 [facility] Sodium [Moles/Vol] 142 mmol/L 136-145 [facility] WBC (Bld) [#/Vol] 6.3 10*3/uL 4.4-11.0 [facility] Blood erythrocytes count (nu mber/volume)Ordered By: Dr. Benitez on 07-09-2022 RBC (Bld) [#/Vol] 3.67 10*6/uL 4.2-5.4 [facility] Blood hemoglobin measurement (mass/volume)Ordered By: Dr. Benitez on 07-09-2022 Hemoglobin (Bld) [Mass/Vol] 10.6 g/dL 12.0-15.0 [facility] Blood lymphocytes/100 leukoc ytesOrdered By: Dr. Benitez on 07-09-2022 Lymphocytes/100 WBC (Bld) 17.9 % 19-41 [facility] Blood monocytes/100 leukocyt esOrdered By: Dr. Benitez on 07-09-2022 Monocytes/100 WBC (Bld) 7.2 % 0-10 [facility] Blood platelet mean volumeOr dered By: Dr. Benitez on 07-09-2022 Platelet mean volume (Bld) [Entitic vol] 10.4 fL 6.2-12.0 [facility] Determination of erythrocyte mean corpuscular volume (MCV)Ordered By: Dr. Benitez on 07-09-2022 MCV (RBC) [Entitic vol] 93.7 fL 81-99 [facility] Hematocrit Auto (Bld) [Volum e fraction]Ordered By: Dr. Benitez on 07-09-2022 Hematocrit (Bld) [Volume fraction] 34.4 % 37-47 [facility] Laboratory - Chemistry and C hemistry - challengeOrdered By: Dr. Benitez on 07-09-2022 ALP [Catalytic activity/Vol] 88 U/L 45-117 [facility] ALT [Catalytic activity/Vol] 13 U/L 13-56 [facility] CO2 [Moles/Vol] 28.0 mmol/L 21.0-32.0 [facility] Globulin (S) [Mass/Vol] 4.3 g/dL 2.2-4.[address] [facility] Natriuretic peptide B (Bld) [Mass/Vol] 105.8 pg/mL 0-100 [facility] Urea nitrogen/Creatinine [Mass ratio] 23.3 mg/mg 10-20 [facility] Laboratory - Hematology and Cell countsOrdered By: Dr. Benitez on 07-09-2022 Erythrocyte distribution width (RBC) [Entitic vol] 44.0 fL 35.1-43.9 [facility] Erythrocyte distribution width (RBC) [Ratio] 12.7 % 11.6-14.6 [facility] Immature granulocytes/100 WBC (Bld) 0.500 % 0.0-0.9 [facility] Comment on above: IG% - Immature Granu locytes (promyelocytes, myelocytes and metamyelocytes) > 1% indicates that a LEFT SHIFT is Present. MCH (RBC) [Entitic mass] 28.9 pg 27.0-32.0 [facility] Nucleated RBC/100 WBC (Bld) [Ratio] 0 % 0-5 [facility] MCHC Auto (RBC) [Mass/Vol]Or dered By: Dr. Benitez on 07-09-2022 MCHC (RBC) [Mass/Vol] 30.8 g/dL 32-36 [facility] No Panel InformationOrdered By: Dr. Benitez on 07-09-2022 Estimated GFR (MDRD) Amer 57 mL/min >60 [facility] Comment on above: GFR Calc Estimated GFR (MDRD) Non-Af Amer 47 mL/min >60 [facility] Comment on above: Non- GFR Calc Parathyroid Hormone (Intact) 104.7 pg/mL 18.4-80.1 [facility] Vitamin D 25-Hydroxy 37.3 ng/mL [facility] Comment on above: Vitamin D 25(OH) Sta tus Range Deficiency <20 ng/mL (50nmol/L) Insufficiency 20 - 30 ng/mL (50 - 75 nmol/L) Sufficiency 30 - 100 ng/mL (75 - 250 nmol/L) Toxicity >100 ng/mL (>250 nmol/L) Platelets bldOrdered By: Dr. Benitez on 07-09-2022 Platelets (Bld) [#/Vol] 212 10*3/uL 150-450 [facility] Serum or plasma albumin lakeisha urement (mass/volume)Ordered By: Dr. Benitez on 07-09-2022 Albumin [Mass/Vol] 3.1 g/dL 3.2-5.0 [facility] Serum or plasma albumin/glob ulin mass ratioOrdered By: Dr. Benitez on 07-09-2022 Albumin/Globulin [Mass ratio] 0.7 {ratio} 0.9-2.4 [facility] Serum or plasma calcium lakeisha urement (mass/volume)Ordered By: Dr. Benitez on 07-09-2022 Calcium [Mass/Vol] 9.4 mg/dL 8.5-10.1 [facility] Serum or plasma creatinine m easurement (mass/volume)Ordered By: Dr. Benitez on 07-09-2022 Creatinine [Mass/Vol] 1.16 mg/dL 0.55-1.02 [facility] Comment on above: The validity of the calculated GFR & GFRAA in patients over 70 years has not been determined. Clinical correlation is essential. Serum or plasma urea nitroge n measurement (mass/volume)Ordered By: Dr. Benitez on 07-09-2022 Urea nitrogen [Mass/Vol] 27 mg/dL 7-18 [facility] Thin prep Papanicolaou smear with manual screeningOrdered By: Dr. Benitez on 07-09-2022 Thin prep Papanicolaou smear with manual screening 14 U/L 15-37 [facility] Thin prep Papanicolaou smear with manual screening 6 5-15 [facility] Absolute lymphocyte counton 05-20-2022 Lymphocytes Auto (Unsp spec) [#/Vol] 0.94 10*3/uL 0.83-4.51 [facility] Work Phone: [phone] Basophil percentageon 2021 Basophils/100 WBC (Bld) 0.6 % 0-[address] [facility] Work Phone: [phone] Bilirubin [Mass/Vol] 0.30 mg/dL 0.20-1.00 [facility] Work Phone: Comment on above: For patients on eltr ombopag therapy, use of Dimension Salol TBIL is not recommended. Chloride [Moles/Vol] 106 mmol/L 98-107 [facility] Work Phone: [phone] Eosinophils/100 WBC (Bld) 2.7 % 0-5 [facility] Work Phone: [phone] Glucose [Mass/Vol] 110 mg/dL 74-106 [facility] Work Phone: [phone] Comment on above: Fasting Glucose resu lt from 100 to 125 mg/dL suggests IMPAIRED HOMEOSTASIS per A.D.A. criteria. Neutrophils (Bld) [#/Vol] 4.6 10*3/uL 2.0-7.7 [facility] Work Phone: [phone] Neutrophils/100 WBC (Bld) 71.5 % 47-70 [facility] Work Phone: [phone] Potassium [Moles/Vol] 4.2 mmol/L 3.5-5.1 [facility] Work Phone: [phone] Comment on above: Slight Hemolysis, Re sult may be falsely increased. Protein [Mass/Vol] 7.3 g/dL 6.4-8.2 [facility] Work Phone: Sodium [Moles/Vol] 141 mmol/L 136-145 [facility] Work Phone: WBC (Bld) [#/Vol] 6.4 10*3/uL 4.4-11.0 [facility] Work Phone: Blood erythrocytes count (nu mber/volume)on 05-20-2022 RBC (Bld) [#/Vol] 3.56 10*6/uL 4.2-5.4 [facility] Blood hemoglobin measurement (mass/volume)on 05-20-2022 Hemoglobin (Bld) [Mass/Vol] 10.6 g/dL 12.0-15.0 [facility] Work Phone: Blood lymphocytes/100 leukoc yteson 05-20-2022 Lymphocytes/100 WBC (Bld) 14.8 % 19-41 [facility] Work Phone: Blood monocytes/100 leukocyt eson 05-20-2022 Monocytes/100 WBC (Bld) 9.9 % 0-10 [facility] Work Phone: Blood platelet mean volumeon 05-20-2022 Platelet mean volume (Bld) [Entitic vol] 10.3 fL 6.2-12.0 [facility] Work Phone: [phone] Determination of erythrocyte mean corpuscular volume (MCV)on 05-20-2022 MCV (RBC) [Entitic vol] 94.7 fL 81-99 [facility] Work Phone: Hematocrit Auto (Bld) [Volum e fraction]on 05-20-2022 Hematocrit (Bld) [Volume fraction] 33.7 % 37-47 [facility] Work Phone: [phone] Laboratory - Chemistry and C hemistry - challengeon 05-20-2022 ALP [Catalytic activity/Vol] 87 U/L 45-117 [facility] Work Phone: ALT [Catalytic activity/Vol] 14 U/L 13-56 [facility] Work Phone: [phone] CO2 [Moles/Vol] 28.0 mmol/L 21.0-32.0 [facility] Work Phone: [phone] Globulin (S) [Mass/Vol] 4.2 g/dL 2.2-4.2 [facility] Work Phone: [phone] Natriuretic peptide B (Bld) [Mass/Vol] 74.4 pg/mL 0-100 [facility] Work Phone: [phone] Urea nitrogen/Creatinine [Mass ratio] 22.4 mg/mg 10-20 [facility] Work Phone: Laboratory - Hematology and Cell countson 05-20-2022 Erythrocyte distribution width (RBC) [Entitic vol] 45.6 fL 35.1-43.9 [facility] Work Phone: [phone] Erythrocyte distribution width (RBC) [Ratio] 13.3 % 11.6-14.6 [facility] Work Phone: [phone] Immature granulocytes/100 WBC (Bld) 0.500 % 0.0-0.9 [facility] Work Phone: [phone] Comment on above: IG% - Immature Granu locytes (promyelocytes, myelocytes and metamyelocytes) > 1% indicates that a LEFT SHIFT is Present. MCH (RBC) [Entitic mass] 29.8 pg 27.0-32.0 [facility] Work Phone: Nucleated RBC/100 WBC (Bld) [Ratio] 0 % 0-5 [facility] Work Phone: [phone] MCHC Auto (RBC) [Mass/Vol]on 05-20-2022 MCHC (RBC) [Mass/Vol] 31.5 g/dL 32-36 [facility] Work Phone: No Panel Informationon 05-20 Estimated Creatinine Clearance Calc 21.41 ml/min [facility] Work Phone: [phone] Estimated GFR (MDRD) Amer 45 mL/min >60 [facility] Work Phone: Comment on above: GFR Calc Estimated GFR (MDRD) Non-Af Amer 37 mL/min >60 [facility] Work Phone: Comment on above: Non- GFR Calc Platelets bldon 05-20-2022 Platelets (Bld) [#/Vol] 190 10*3/uL 150-450 [facility] Work Phone: Serum or plasma albumin lakeisha urement (mass/volume)on 05-20-2022 Albumin [Mass/Vol] 3.1 g/dL 3.2-5.0 [facility] Work Phone: Serum or plasma albumin/glob ulin mass ratioon 05-20-2022 Albumin/Globulin [Mass ratio] 0.7 {ratio} 0.9-2.4 [facility] Work Phone: Serum or plasma calcium lakeisha urement (mass/volume)on 05-20-2022 Calcium [Mass/Vol] 9.4 mg/dL 8.5-10.1 [facility] Work Phone: Serum or plasma creatinine m easurement (mass/volume)on 05-20-2022 Creatinine [Mass/Vol] 1.43 mg/dL 0.55-1.02 [facility] Work Phone: Comment on above: The validity of the calculated GFR & GFRAA in patients over 70 years has not been determined. Clinical correlation is essential. Serum or plasma urea nitroge n measurement (mass/volume)on 05-20-2022 Urea nitrogen [Mass/Vol] 32 mg/dL 7-18 [facility] Work Phone: Thin prep Papanicolaou smear with manual screeningon 05-20-2022 Thin prep Papanicolaou smear with manual screening 17 U/L 15-37 [facility] Work Phone: Comment on above: Slight Hemolysis, Re sult may be falsely increased. Thin prep Papanicolaou smear with manual screening 7 5-15 [facility] Work Phone: Absolute lymphocyte counton 05-08-2022 Lymphocytes Auto (Unsp spec) [#/Vol] 0.75 10*3/uL 0.83-4.51 [facility] Work Phone: Basophil percentageon 2021 Basophil percentage 0 SEEN /hpf 0-5 [facility] Work Phone: Basophils/100 WBC (Bld) 0.4 % 0-1 [facility] Work Phone: Bilirubin [Mass/Vol] 0.30 mg/dL 0.20-1.00 [facility] Work Phone: Comment on above: For patients on eltr ombopag therapy, use of Dimension Salol TBIL is not recommended. Chloride [Moles/Vol] 106 mmol/L 98-107 [facility] Work Phone: Eosinophils/100 WBC (Bld) 1.4 % 0-5 [facility] Work Phone: Glucose [Mass/Vol] 94 mg/dL 74-106 [facility] Work Phone: Neutrophils (Bld) [#/Vol] 5.8 10*3/uL 2.0-7.7 [facility] Work Phone: Neutrophils/100 WBC (Bld) 79.8 % 47-70 [facility] Work Phone: Potassium [Moles/Vol] 4.5 mmol/L 3.5-5.1 [facility] Work Phone: Protein [Mass/Vol] 7.3 g/dL 6.4-8.2 [facility] Work Phone: Sodium [Moles/Vol] 140 mmol/L 136-145 [facility] Work Phone: WBC (Bld) [#/Vol] 7.3 10*3/uL 4.4-11.0 [facility] Work Phone: Bilirubin Test strip Ql (U)o n 05-08-2022 Bilirubin Ql (U) Negative Negative [facility] Work Phone: Blood erythrocytes count (nu mber/volume)on 05-08-2022 RBC (Bld) [#/Vol] 3.69 10*6/uL 4.2-5.4 [facility] Work Phone: [phone] Blood hemoglobin measurement (mass/volume)on 05-08-2022 Hemoglobin (Bld) [Mass/Vol] 10.7 g/dL 12.0-15.0 [facility] Work Phone: Blood lymphocytes/100 leukoc yteson 05-08-2022 Lymphocytes/100 WBC (Bld) 10.3 % 19-41 [facility] Work Phone: Blood monocytes/100 leukocyt eson 05-08-2022 Monocytes/100 WBC (Bld) 7.7 % 0-10 [facility] Work Phone: Blood platelet mean volumeon 05-08-2022 Platelet mean volume (Bld) [Entitic vol] 10.5 fL 6.2-12.0 [facility] Work Phone: [phone] Determination of erythrocyte mean corpuscular volume (MCV)on 05-08-2022 MCV (RBC) [Entitic vol] 93.0 fL 81-99 [facility] Work Phone: Hematocrit Auto (Bld) [Volum e fraction]on 05-08-2022 Hematocrit (Bld) [Volume fraction] 34.3 % 37-47 [facility] Work Phone: [phone] INR in Blood by Coagulation assayon 05-08-2022 INR Coag (Bld) [Relative time] 1.1 {INR} [facility] Work Phone: [phone] Ketones Test strip Ql (U)on 05-08-2022 Ketones Ql (U) Negative Negative [facility] Work Phone: [phone] Laboratory - Chemistry and C hemistry - challengeon 05-08-2022 ALP [Catalytic activity/Vol] 80 U/L 45-117 [facility] Work Phone: ALT [Catalytic activity/Vol] 14 U/L 13-56 [facility] Work Phone: [phone] CO2 [Moles/Vol] 28.0 mmol/L 21.0-32.0 [facility] Work Phone: [phone] Globulin (S) [Mass/Vol] 4.1 g/dL 2.2-4.2 [facility] Work Phone: [phone] Natriuretic peptide B (Bld) [Mass/Vol] 131.4 pg/mL 0-100 [facility] Work Phone: Urea nitrogen/Creatinine [Mass ratio] 22.7 mg/mg 10-20 [facility] Work Phone: Laboratory - Coagulationon 0 05-08-2022 aPTT Coag (Bld) [Time] 33.6 s 24.1-36.2 [facility] Work Phone: PT Coag (PPP) [Time] 13.7 s 11.7-14.9 [facility] Work [facility]: [phone] Laboratory - Hematology and Cell countson 05-08-2022 Erythrocyte distribution width (RBC) [Entitic vol] 45.5 fL 35.1-43.9 [facility] Work Phone: Erythrocyte distribution width (RBC) [Ratio] 13.3 % 11.6-14.6 [facility] Work Phone: [phone] Immature granulocytes/100 WBC (Bld) 0.400 % 0.0-0.9 [facility] Work Phone: [phone] Comment on above: IG% - Immature Granu locytes (promyelocytes, myelocytes and metamyelocytes) > 1% indicates that a LEFT SHIFT is Present. MCH (RBC) [Entitic mass] 29.0 pg 27.0-32.0 [facility] Work Phone: Nucleated RBC/100 WBC (Bld) [Ratio] 0 % 0-5 [facility] Work Phone: MCHC Auto (RBC) [Mass/Vol]on 05-08-2022 MCHC (RBC) [Mass/Vol] 31.2 g/dL 32-36 [facility] Work Phone: Mucus LM Ql (Urine sed)on Mucus Ql (Urine sed) 0 SEEN /hpf [facility] Work Phone: Nitrite Test strip Ql (U)on 05-08-2022 Nitrite Ql (U) Negative Negative [facility] Work Phone: No Panel Informationon 05-08 Estimated Creatinine Clearance Calc 23.20 ml/min [facility] Work Phone: Estimated GFR (MDRD) Amer 49 mL/min >60 [facility] Work Phone: Comment on above: GFR Calc Estimated GFR (MDRD) Non-Af Amer 41 mL/min >60 [facility] Work Phone: Comment on above: Non- GFR Calc Troponin I High Sensitivity 8 pg/mL 3.0-54.0 [facility] Work Phone: Comment on above: Please Note: New Jessica t Units and Gender Specific Reference Ranges. For more information see Policy Stat Procedure Salol High Sensitivity Troponin (TNIH) and attachments. Platelets bldon 05-08-2022 Platelets (Bld) [#/Vol] 190 10*3/uL 150-450 [facility] Work Phone: Protein Test strip Ql (U)on 05-08-2022 Protein Ql (U) Negative Negative [facility] Work Phone: Serum or plasma albumin lakeisha urement (mass/volume)on 05-08-2022 Albumin [Mass/Vol] 3.2 g/dL 3.2-5.0 [facility] Work Phone: Serum or plasma albumin/glob ulin mass ratioon 05-08-2022 Albumin/Globulin [Mass ratio] 0.8 {ratio} 0.9-2.4 [facility] Work Phone: Serum or plasma calcium lakeisha urement (mass/volume)on 05-08-2022 Calcium [Mass/Vol] 9.2 mg/dL 8.5-10.1 [facility] Work Phone: Serum or plasma creatinine m easurement (mass/volume)on 05-08-2022 Creatinine [Mass/Vol] 1.32 mg/dL 0.55-1.02 [facility] Work Phone: Comment on above: The validity of the calculated GFR & GFRAA in patients over 70 years has not been determined. Clinical correlation is essential. Serum or plasma urea nitroge n measurement (mass/volume)on 05-08-2022 Urea nitrogen [Mass/Vol] 30 mg/dL 7-18 [facility] Work Phone: Squamous epithelial cells de tection in urine sediment by light microscopyon 05-08-2022 Epithelial cells.squamous LM Ql (Urine sed) 0-5 SEEN /hpf 5-10 [facility] Work Phone: Thin prep Papanicolaou smear with manual screeningon 05-08-2022 Thin prep Papanicolaou smear with manual screening 13 U/L 15-37 [facility] Work Phone: Thin prep Papanicolaou smear with manual screening 6 5-15 [facility] Work Phone: Urine blood detectionon 04-26 RBC Ql (U) Negative Negative [facility] Work Phone: RBC Ql (U) 0-5 SEEN /hpf 0-5 [facility] Work Phone: Urine clarityon 05-08-2022 Clarity (U) Clear Clear [facility] Work Phone: Urine color determinationon 05-08-2022 Color (U) Yellow Yellow [facility] Work Phone: Urine glucose detectionon Glucose Ql (U) Normal mg/dl Normal [facility] Work Phone: Urine leukocyte esterase det ection by dipstickon 05-08-2022 Leukocyte esterase Test strip Ql (U) Negative Negative [facility] Work Phone: Urine pHon 05-08-2022 pH (U) 6.5 [pH] 5.0 - 8.0 [facility] Work Phone: Urine sediment bacteria coun t by microscopy (number/high power field)on 05-08-2022 Bacteria LM.HPF (Urine sed) [#/Area] RARE /hpf None Seen [facility] Work Phone: [phone] Urine specific gravity measu rementon 05-08-2022 Specific gravity (U) [Rel density] 1.010 1.002-1.03 0 [facility] Work Phone: Urobilinogen Auto test strip Ql (U)on 05-08-2022 Urobilinogen Ql (U) Normal mg/dl Normal [facility] Work Phone: Absolute lymphocyte counton 03-19-2022 Lymphocytes Auto (Unsp spec) [#/Vol] 1.22 10*3/uL 0.83-4.51 [facility] Work Phone: Basophil percentageon 2021 Basophils/100 WBC (Bld) 0.6 % 0-1 [facility] Work Phone: Bilirubin [Mass/Vol] 0.30 mg/dL 0.20-1.00 [facility] Work Phone: Comment on above: For patients on eltr ombopag therapy, use of Dimension Salol TBIL is not recommended. Chloride [Moles/Vol] 107 mmol/L 98-107 [facility] Work Phone: Eosinophils/100 WBC (Bld) 2.2 % 0-5 [facility] Work Phone: Glucose [Mass/Vol] 87 mg/dL 74-106 [facility] Work Phone: Neutrophils (Bld) [#/Vol] 6.1 10*3/uL 2.0-7.7 [facility] Work Phone: Neutrophils/100 WBC (Bld) 74.2 % 47-70 [facility] Work Phone: Potassium [Moles/Vol] 5.1 mmol/L 3.5-5.1 [facility] Work Phone: Protein [Mass/Vol] 7.8 g/dL 6.4-8.2 [facility] Work Phone: Sodium [Moles/Vol] 136 mmol/L 136-145 [facility] Work Phone: WBC (Bld) [#/Vol] 8.2 10*3/uL 4.4-11.0 [facility] Work Phone: Blood erythrocytes count (nu mber/volume)on 03-19-2022 RBC (Bld) [#/Vol] 3.73 10*6/uL 4.2-5.4 [facility] Work Phone: [phone] Blood hemoglobin measurement (mass/volume)on 03-19-2022 Hemoglobin (Bld) [Mass/Vol] 11.2 g/dL 12.0-15.0 [facility] Work Phone: Blood lymphocytes/100 leukoc yteson 03-19-2022 Lymphocytes/100 WBC (Bld) 15.0 % 19-41 [facility] Work Phone: Blood monocytes/100 leukocyt eson 03-19-2022 Monocytes/100 WBC (Bld) 7.6 % 0-10 [facility] Work Phone: Blood platelet mean volumeon 03-19-2022 Platelet mean volume (Bld) [Entitic vol] 10.3 fL 6.2-12.0 [facility] Work Phone: [phone] Determination of erythrocyte mean corpuscular volume (MCV)on 03-19-2022 MCV (RBC) [Entitic vol] 93.8 fL 81-99 [facility] Work Phone: Hematocrit Auto (Bld) [Volum e fraction]on 03-19-2022 Hematocrit (Bld) [Volume fraction] 35.0 % 37-47 [facility] Work Phone: [phone] Laboratory - Chemistry and C hemistry - challengeon 03-19-2022 Albumin [Mass/Vol] 3.7 g/dL 2.9-4.4 [facility] Work Phone: ALP [Catalytic activity/Vol] 80 U/L 45-117 [facility] Work Phone: ALT [Catalytic activity/Vol] 17 U/L 13-56 [facility] Work Phone: CO2 [Moles/Vol] 24.0 mmol/L 21.0-32.0 [facility] Work Phone: [phone] Globulin (S) [Mass/Vol] 4.4 g/dL 2.2-4.2 [facility] Work Phone: [phone] Urea nitrogen/Creatinine [Mass ratio] 32.5 mg/mg 10-20 [facility] Work Phone: Laboratory - Hematology and Cell countson 03-19-2022 Erythrocyte distribution width (RBC) [Entitic vol] 46.2 fL 35.1-43.9 [facility] Work Phone: [phone] Erythrocyte distribution width (RBC) [Ratio] 13.4 % 11.6-14.6 [facility] Work Phone: [phone] Immature granulocytes/100 WBC (Bld) 0.400 % 0.0-0.9 [facility] Work Phone: [phone] Comment on above: IG% - Immature Granu locytes (promyelocytes, myelocytes and metamyelocytes) > 1% indicates that a LEFT SHIFT is Present. MCH (RBC) [Entitic mass] 30.0 pg 27.0-32.0 [facility] Work Phone: [phone] Nucleated RBC/100 WBC (Bld) [Ratio] 0 % 0-5 [facility] Work Phone: [phone] MCHC Auto (RBC) [Mass/Vol]on 03-19-2022 MCHC (RBC) [Mass/Vol] 32.0 g/dL 32-36 [facility] Work Phone: [phone] No Panel Informationon 03-19 Addendum Document Comment . [facility] Work Phone: Comment on above: Faint band in gamma region suspicious for monoclonalimmunoglobulin. This band may represent a benign spike asseen in older people or could be a paraprotein as seen inMultiple Myeloma, Waldenstrom's Macroglobulinemia orLymphoma. Depending on clinical circumstances, furtherdiagnostic studies may include serum immunofixation orserum free light chain quantitation.Performed at: [facility] [address] [id number] Director: Zane Barroso PhD, Phone: [phone] Xaced-5-Exmfssdeg 0.2 g/dL 0.0-0.4 [facility] Work Phone: Ifuid-1-Naxxvojge 0.8 g/dL 0.4-1.0 [facility] Work Phone: Estimated GFR (MDRD) Amer 40 mL/min >60 [facility] Work Phone: Comment on above: GFR Calc Estimated GFR (MDRD) Non-Af Amer 33 mL/min >60 [facility] Work Phone: Comment on above: Non- GFR Calc Gamma Globulins 1.6 g/dL 0.4-1.8 [facility] Work Phone: Platelets bldon 03-19-2022 Platelets (Bld) [#/Vol] 228 10*3/uL 150-450 [facility] Work Phone: Protein Fractions Elph [Inte rp]on 03-19-2022 Protein Fractions [Interp] Comment . [facility] Work Phone: Comment on above: Protein electrophore sis scan will follow via computer,mail, or clinical marketing manager delivery. Serum albumin to globulin ra jean-paul by protein electrophoresison 03-19-2022 Albumin/Globulin Elph [Mass ratio] 1.0 0.7-1.7 [facility] Work Phone: Serum globulin measurement ( mass/volume)on 03-19-2022 Globulin (S) [Mass/Vol] 3.7 g/dL 2.2-3.9 [facility] Work Phone: Serum or plasma C reactive p rotein measurement (mass/volume)on 03-19-2022 CRP [Mass/Vol] mg/L 0.0-3.0 [facility] Work Phone: Comment on above: C-Reactive Protein ( CRP) provides useful information for thediagnosis, therapy and monitoring of inflammatory processesand associated diseases. For the evaluation of Relative Riskfor Cardiovascular Disease, a High Sensitivity CRP (HSCRP)should be ordered. Serum or plasma albumin lakeisha urement (mass/volume)on 03-19-2022 Albumin [Mass/Vol] 3.4 g/dL 3.2-5.0 [facility] Work Phone: Serum or plasma albumin/glob ulin mass ratioon 03-19-2022 Albumin/Globulin [Mass ratio] 0.8 {ratio} 0.9-2.4 [facility] Work Phone: Serum or plasma beta globuli n measurement by electrophoresis (mass/volume)on 03-19-2022 Beta globulin Elph [Mass/Vol] 1.1 g/dL 0.7-1.3 [facility] Work Phone: Serum or plasma calcium lakeisha urement (mass/volume)on 03-19-2022 Calcium [Mass/Vol] 9.3 mg/dL 8.5-10.1 [facility] Work Phone: Serum or plasma creatinine m easurement (mass/volume)on 03-19-2022 Creatinine [Mass/Vol] 1.60 mg/dL 0.55-1.02 [facility] Work Phone: Comment on above: The validity of the calculated GFR & GFRAA in patients over 70 years has not been determined. Clinical correlation is essential. Serum or plasma urea nitroge n measurement (mass/volume)on 03-19-2022 Urea nitrogen [Mass/Vol] 52 mg/dL 7-18 [facility] Work Phone: Thin prep Papanicolaou smear with manual screeningon 03-19-2022 Thin prep Papanicolaou smear with manual screening 14 U/L 15-37 [facility] Work Phone: Thin prep Papanicolaou smear with manual screening 5 5-15 [facility] Work Phone: Thin prep Papanicolaou smear with manual screening See comment [facility] Work Phone: [phone] Comment on above: ASYMMETRICAL GAMMA Total protein bloodon 2021 Protein [Mass/Vol] 7.4 g/dL 6.0-8.5 [facility] Work Phone: [phone] Absolute lymphocyte counton 01-18-2022 Lymphocytes Auto (Unsp spec) [#/Vol] 0.89 10*3/uL 0.83-4.51 [facility] Work Phone: Basophil percentageon 2021 Basophils/100 WBC (Bld) 0.0 % 0-1 [facility] Work Phone: Chloride [Moles/Vol] 104 mmol/L 98-107 [facility] Work Phone: Eosinophils/100 WBC (Bld) 1.3 % 0-5 [facility] Work Phone: Glucose [Mass/Vol] 92 mg/dL 74-106 [facility] Work Phone: Neutrophils (Bld) [#/Vol] 1.7 10*3/uL 2.0-7.7 [facility] Work Phone: Neutrophils/100 WBC (Bld) 55.8 % 47-70 [facility] Work Phone: Potassium [Moles/Vol] 4.7 mmol/L 3.5-5.1 [facility] Work Phone: [phone] Comment on above: Moderate Hemolysis, Result may be falsely increased. Sodium [Moles/Vol] 137 mmol/L 136-145 [facility] Work Phone: WBC (Bld) [#/Vol] 3.0 10*3/uL 4.4-11.0 [facility] Work Phone: Blood erythrocytes count (nu mber/volume)on 01-18-2022 RBC (Bld) [#/Vol] 4.02 10*6/uL 4.2-5.4 [facility] Work Phone: [phone] Blood hemoglobin measurement (mass/volume)on 01-18-2022 Hemoglobin (Bld) [Mass/Vol] 11.5 g/dL 12.0-15.0 [facility] Work Phone: Blood lymphocytes/100 leukoc yteson 01-18-2022 Lymphocytes/100 WBC (Bld) 29.6 % 19-41 [facility] Work Phone: Blood monocytes/100 leukocyt eson 01-18-2022 Monocytes/100 WBC (Bld) 13.0 % 0-10 [facility] Work Phone: Blood platelet mean volumeon 01-18-2022 Platelet mean volume (Bld) [Entitic vol] 10.5 fL 6.2-12.0 [facility] Work Phone: [phone] Determination of erythrocyte mean corpuscular volume (MCV)on 01-18-2022 MCV (RBC) [Entitic vol] 88.8 fL 81-99 [facility] Work Phone: [phone] Hematocrit Auto (Bld) [Volum e fraction]on 01-18-2022 Hematocrit (Bld) [Volume fraction] 35.7 % 37-47 [facility] Work Phone: [phone] Laboratory - Chemistry and C hemistry - challengeon 01-18-2022 CO2 [Moles/Vol] 27.0 mmol/L 21.0-32.0 [facility] Work Phone: [phone] Urea nitrogen/Creatinine [Mass ratio] 30.2 mg/mg 10-20 [facility] Work Phone: Laboratory - Hematology and Cell countson 01-18-2022 Erythrocyte distribution width (RBC) [Entitic vol] 45.8 fL 35.1-43.9 [facility] Work Phone: [phone] Erythrocyte distribution width (RBC) [Ratio] 14.0 % 11.6-14.6 [facility] Work Phone: [phone] Immature granulocytes/100 WBC (Bld) 0.300 % 0.0-0.9 [facility] Work Phone: Comment on above: IG% - Immature Granu locytes (promyelocytes, myelocytes and metamyelocytes) > 1% indicates that a LEFT SHIFT is Present. MCH (RBC) [Entitic mass] 28.6 pg 27.0-32.0 [facility] Work Phone: Nucleated RBC/100 WBC (Bld) [Ratio] 0 % 0-5 [facility] Work Phone: MCHC Auto (RBC) [Mass/Vol]on 01-18-2022 MCHC (RBC) [Mass/Vol] 32.2 g/dL 32-36 [facility] Work Phone: No Panel Informationon 01-18 Estimated Creatinine Clearance Calc 18.90 ml/min [facility] Work Phone: Estimated GFR (MDRD) Amer 39 mL/min >60 [facility] Work Phone: Comment on above: GFR Calc Estimated GFR (MDRD) Non-Af Amer 32 mL/min >60 [facility] [facility] Work Phone: Comment on above: Non- GFR Calc Platelets bldon 01-18-2022 Platelets (Bld) [#/Vol] 172 10*3/uL 150-450 [facility] Work Phone: Serum or plasma calcium lakeisha urement (mass/volume)on 01-18-2022 Calcium [Mass/Vol] 9.4 mg/dL 8.5-10.1 [facility] Work Phone: Serum or plasma creatinine m easurement (mass/volume)on 01-18-2022 Creatinine [Mass/Vol] 1.62 mg/dL 0.55-1.02 [facility] Work Phone: Comment on above: The validity of the calculated GFR & GFRAA in patients over 70 years has not been determined. Clinical correlation is essential. Serum or plasma urea nitroge n measurement (mass/volume)on 01-18-2022 Urea nitrogen [Mass/Vol] 49 mg/dL 7-18 [facility] Work Phone: Thin prep Papanicolaou smear with manual screeningon 01-18-2022 Thin prep Papanicolaou smear with manual screening 6 5-15 [facility] Work Phone: Absolute lymphocyte counton 01-16-2022 Lymphocytes Auto (Unsp spec) [#/Vol] 0.70 10*3/uL 0.83-4.51 [facility] Work Phone: Basophil percentageon 2021 Basophils/100 WBC (Bld) 0.3 % 0-1 [facility] Work Phone: Chloride [Moles/Vol] 105 mmol/L 98-107 [facility] Work Phone: Eosinophils/100 WBC (Bld) 0.9 % 0-5 [facility] Work Phone: Glucose [Mass/Vol] 91 mg/dL 74-106 [facility] Work Phone: Neutrophils (Bld) [#/Vol] 2.5 10*3/uL 2.0-7.7 [facility] Work Phone: Neutrophils/100 WBC (Bld) 70.5 % 47-70 [facility] Work Phone: Potassium [Moles/Vol] 4.7 mmol/L 3.5-5.1 [facility] Work Phone: Comment on above: Slight Hemolysis, Re sult may be falsely increased. Sodium [Moles/Vol] 136 mmol/L 136-145 [facility] Work Phone: WBC (Bld) [#/Vol] 3.5 10*3/uL 4.4-11.0 [facility] Work Phone: Blood erythrocytes count (nu mber/volume)on 01-16-2022 RBC (Bld) [#/Vol] 4.41 10*6/uL 4.2-5.4 [facility] Work Phone: Blood hemoglobin measurement (mass/volume)on 01-16-2022 Hemoglobin (Bld) [Mass/Vol] 12.7 g/dL 12.0-15.0 [facility] Work Phone: Blood lymphocytes/100 leukoc yteson 01-16-2022 Lymphocytes/100 WBC (Bld) 20.2 % 19-41 [facility] Work Phone: Blood monocytes/100 leukocyt eson 01-16-2022 Monocytes/100 WBC (Bld) 7.8 % 0-10 [facility] Work Phone: Blood platelet mean volumeon 01-16-2022 Platelet mean volume (Bld) [Entitic vol] 10.4 fL 6.2-12.0 [facility] Work Phone: [phone] Determination of erythrocyte mean corpuscular volume (MCV)on 01-16-2022 MCV (RBC) [Entitic vol] 90.0 fL 81-99 [facility] Work Phone: [phone] Hematocrit Auto (Bld) [Volum e fraction]on 01-16-2022 Hematocrit (Bld) [Volume fraction] 39.7 % 37-47 [facility] Work Phone: [phone] Laboratory - Chemistry and C hemistry - challengeon 01-16-2022 CO2 [Moles/Vol] 26.0 mmol/L 21.0-32.0 [facility] Work Phone: [phone] Natriuretic peptide B (Bld) [Mass/Vol] 168.5 pg/mL 0-100 [facility] Work Phone: [phone] Urea nitrogen/Creatinine [Mass ratio] 25.4 mg/mg 10-20 [facility] Work Phone: Laboratory - Hematology and Cell countson 01-16-2022 Erythrocyte distribution width (RBC) [Entitic vol] 46.9 fL 35.1-43.9 [facility] Work Phone: [phone] Erythrocyte distribution width (RBC) [Ratio] 14.0 % 11.6-14.6 [facility] Work Phone: [phone] Immature granulocytes/100 WBC (Bld) 0.300 % 0.0-0.9 [facility] Work Phone: Comment on above: IG% - Immature Granu locytes (promyelocytes, myelocytes and metamyelocytes) > 1% indicates that a LEFT SHIFT is Present. MCH (RBC) [Entitic mass] 28.8 pg 27.0-32.0 [facility] Work Phone: Nucleated RBC/100 WBC (Bld) [Ratio] 0 % 0-5 [facility] Work Phone: MCHC Auto (RBC) [Mass/Vol]on 01-16-2022 MCHC (RBC) [Mass/Vol] 32.0 g/dL 32-36 [facility] Work Phone: No Panel Informationon 01-16 Estimated Creatinine Clearance Calc 48.89 ml/min [facility] Work Phone: Estimated GFR (MDRD) Amer 56 mL/min >60 [facility] Work Phone: Comment on above: GFR Calc Estimated GFR (MDRD) Non-Af Amer 46 mL/min >60 [facility] Work Phone: Comment on above: Non- GFR Calc Troponin I High Sensitivity 10 pg/mL 3.0-54.0 [facility] Work Phone: Comment on above: Please Note: New Jessica t Units and Gender Specific Reference Ranges. For more information see Policy Stat Procedure Salol High Sensitivity Troponin (TNIH) and attachments. SARS-CoV-2 & FLU Antigen (Rapid) SARS-CoV-2 (COVID 19) [facility] Work Phone: Platelets bldon 01-16-2022 Platelets (Bld) [#/Vol] 166 10*3/uL 150-450 [facility] Work Phone: Serum or plasma calcium lakeisha urement (mass/volume)on 01-16-2022 Calcium [Mass/Vol] 9.6 mg/dL 8.5-10.1 [facility] Work Phone: Serum or plasma creatinine m easurement (mass/volume)on 01-16-2022 Creatinine [Mass/Vol] 1.18 mg/dL 0.55-1.02 [facility] Work Phone: Comment on above: The validity of the calculated GFR & GFRAA in patients over 70 years has not been determined. Clinical correlation is essential. Serum or plasma urea nitroge n measurement (mass/volume)on 01-16-2022 Urea nitrogen [Mass/Vol] 30 mg/dL 7-18 [facility] Work Phone: Thin prep Papanicolaou smear with manual screeningon 01-16-2022 Thin prep Papanicolaou smear with manual screening 5 5-15 [facility] Work Phone: [phone] Absolute lymphocyte counton 12-25-2021 Lymphocytes Auto (Unsp spec) [#/Vol] 0.82 10*3/uL 0.83-4.51 [facility] Work Phone: [phone] Basophil percentageon 2021 Basophils/100 WBC (Bld) 0.5 % 0-1 [facility] Work Phone: [phone] Bilirubin [Mass/Vol] 0.50 mg/dL 0.20-1.00 [facility] Work Phone: Comment on above: For patients on eltr ombopag therapy, use of Dimension Salol TBIL is not recommended. Chloride [Moles/Vol] 104 mmol/L 98-107 [facility] Work Phone: [phone] Eosinophils/100 WBC (Bld) 2.3 % 0-5 [facility] Work Phone: [phone] Glucose [Mass/Vol] 94 mg/dL 74-106 [facility] Work Phone: [phone] Neutrophils (Bld) [#/Vol] 4.1 10*3/uL 2.0-7.7 [facility] Work Phone: Neutrophils/100 WBC (Bld) 71.4 % 47-70 [facility] Work Phone: [phone] Potassium [Moles/Vol] 4.0 mmol/L 3.5-5.1 [facility] Work Phone: [phone] Protein [Mass/Vol] 7.4 g/dL 6.4-8.2 [facility] Work Phone: Sodium [Moles/Vol] 138 mmol/L 136-145 [facility]: WBC (Bld) [#/Vol] 5.8 10*3/uL 4.4-11.0 [facility] Work Phone: Blood erythrocytes count (nu mber/volume)on 12-25-2021 RBC (Bld) [#/Vol] 4.21 10*6/uL 4.2-5.4 [facility]: [phone] Blood hemoglobin measurement (mass/volume)on 12-25-2021 Hemoglobin (Bld) [Mass/Vol] 11.9 g/dL 12.0-15.0 [facility] Work Phone: Blood lymphocytes/100 leukoc yteson 12-25-2021 Lymphocytes/100 WBC (Bld) 14.2 % 19-41 [facility] Work Phone: Blood monocytes/100 leukocyt eson 12-25-2021 Monocytes/100 WBC (Bld) 11.3 % 0-10 [facility] Work Phone: Blood platelet mean volumeon 12-25-2021 Platelet mean volume (Bld) [Entitic vol] 11.0 fL 6.2-12.0 [facility] Work Phone: [phone] Determination of erythrocyte mean corpuscular volume (MCV)on 12-25-2021 MCV (RBC) [Entitic vol] 90.3 fL 81-99 [facility] Work Phone: Hematocrit Auto (Bld) [Volum e fraction]on 12-25-2021 Hematocrit (Bld) [Volume fraction] 38.0 % 37-47 [facility] Work Phone: [phone] Laboratory - Chemistry and C hemistry - challengeon 12-25-2021 ALP [Catalytic activity/Vol] 71 U/L 45-117 [facility] Work Phone: [phone] ALT [Catalytic activity/Vol] 16 U/L 13-56 [facility] Work Phone: CO2 [Moles/Vol] 28.0 mmol/L 21.0-32.0 [facility] Work Phone: Globulin (S) [Mass/Vol] 4.0 g/dL 2.2-4.2 [facility] Work Phone: [phone] Magnesium [Mass/Vol] 2.3 mg/dL 1.6-[facility].6 [facility]: Natriuretic peptide B (Bld) [Mass/Vol] 140.7 pg/mL 0-100 [facility] Work Phone: [phone] Urea nitrogen/Creatinine [Mass ratio] 21.5 mg/mg 10-20 [facility] Work Phone: [phone] Laboratory - Hematology and Cell countson 12-25-2021 Erythrocyte distribution width (RBC) [Entitic vol] 48.8 fL 35.1-43.9 [facility] Work Phone: [phone] Erythrocyte distribution width (RBC) [Ratio] 14.8 % 11.6-14.6 [facility] Work Phone: [phone] Immature granulocytes/100 WBC (Bld) 0.300 % 0.0-0.9 [facility] Work Phone: [phone] Comment on above: IG% - Immature Granu locytes (promyelocytes, myelocytes and metamyelocytes) > 1% indicates that a LEFT SHIFT is Present. MCH (RBC) [Entitic mass] 28.3 pg 27.0-32.0 [facility] Work Phone: Nucleated RBC/100 WBC (Bld) [Ratio] 0 % 0-5 [facility] Work Phone: MCHC Auto (RBC) [Mass/Vol]on 12-25-2021 MCHC (RBC) [Mass/Vol] 31.3 g/dL 32-36 [facility] Work Phone: [phone] No Panel Informationon 12-25 Estimated GFR (MDRD) Amer 63 mL/min >60 [facility] Work Phone: Comment on above: GFR Calc Estimated GFR (MDRD) Non-Af Amer 52 mL/min >60 [facility] Work Phone: Comment on above: Non- GFR Calc Parathyroid Hormone (Intact) 162.9 pg/mL 18.4-80.1 [facility] Work Phone: Vitamin D 25-Hydroxy 33.8 ng/mL [facility] Work Phone: Comment on above: Vitamin D 25(OH) Sta tus Range Deficiency <20 ng/mL (50nmol/L) Insufficiency 20 - 30 ng/mL (50 - 75 nmol/L) Sufficiency 30 - 100 ng/mL (75 - 250 nmol/L) Toxicity >100 ng/mL (>250 nmol/L) Platelets bldon 12-25-2021 Platelets (Bld) [#/Vol] 192 10*3/uL 150-450 [facility] Work Phone: Serum or plasma albumin lakeisha urement (mass/volume)on 12-25-2021 Albumin [Mass/Vol] 3.4 g/dL 3.2-5.0 [facility] Work Phone: Serum or plasma albumin/glob ulin mass ratioon 12-25-2021 Albumin/Globulin [Mass ratio] 0.8 {ratio} 0.9-2.4 [facility] Work Phone: Serum or plasma calcium lakeisha urement (mass/volume)on 12-25-2021 Calcium [Mass/Vol] 9.4 mg/dL 8.5-10.1 [facility] Work Phone: Serum or plasma creatinine m easurement (mass/volume)on 12-25-2021 Creatinine [Mass/Vol] 1.07 mg/dL 0.55-1.02 [facility] Work Phone: Comment on above: The validity of the calculated GFR & GFRAA in patients over 70 years has not been determined. Clinical correlation is essential. Serum or plasma urea nitroge n measurement (mass/volume)on 12-25-2021 Urea nitrogen [Mass/Vol] 23 mg/dL 7-18 [facility] Work Phone: Thin prep Papanicolaou smear with manual screeningon 12-25-2021 Thin prep Papanicolaou smear with manual screening 19 U/L 15-37 [facility] Work Phone: Thin prep Papanicolaou smear with manual screening 6 5-15 [facility] Work Phone: Absolute lymphocyte counton 11-08-2021 Lymphocytes Auto (Unsp spec) [#/Vol] 1.36 10*3/uL 0.83-4.51 [facility] Work Phone: Basophil percentageon 2021 Basophils/100 WBC (Bld) 0.8 % 0-1 [facility] Work Phone: [phone] Bilirubin [Mass/Vol] 0.60 mg/dL 0.20-1.00 [facility] Work Phone: Comment on above: For patients on eltr ombopag therapy, use of Dimension Salol TBIL is not recommended. Chloride [Moles/Vol] 104 mmol/L 98-107 [facility] Work Phone: Eosinophils/100 WBC (Bld) 1.5 % 0-5 [facility] Work Phone: Glucose [Mass/Vol] 84 mg/dL 74-106 [facility] Work Phone: Neutrophils (Bld) [#/Vol] 5.2 10*3/uL 2.0-7.7 [facility] Work Phone: Neutrophils/100 WBC (Bld) 69.4 % 47-70 [facility] Work Phone: Potassium [Moles/Vol] 4.4 mmol/L 3.5-5.1 [facility] Work Phone: [phone] Protein [Mass/Vol] 8.4 g/dL 6.4-8.2 [facility] Work Phone: Sodium [Moles/Vol] 137 mmol/L 136-145 [facility] Work Phone: WBC (Bld) [#/Vol] 7.5 10*3/uL 4.4-11.0 [facility] Work Phone: Blood erythrocytes count (nu mber/volume)on 11-08-2021 RBC (Bld) [#/Vol] 4.64 10*6/uL 4.2-5.4 [facility] Work [facility]: Blood hemoglobin measurement (mass/volume)on 11-08-2021 Hemoglobin (Bld) [Mass/Vol] 13.0 g/dL 12.0-15.0 [facility] Work Phone: Blood lymphocytes/100 leukoc yteson 11-08-2021 Lymphocytes/100 WBC (Bld) 18.1 % 19-41 [facility] Work Phone: Blood monocytes/100 leukocyt eson 11-08-2021 Monocytes/100 WBC (Bld) 9.8 % 0-10 [facility] Work Phone: Blood platelet mean volumeon 11-08-2021 Platelet mean volume (Bld) [Entitic vol] 10.8 fL 6.2-12.0 [facility] Work Phone: [phone] Determination of erythrocyte mean corpuscular volume (MCV)on 11-08-2021 MCV (RBC) [Entitic vol] 88.8 fL 81-99 [facility] Work Phone: Hematocrit Auto (Bld) [Volum e fraction]on 11-08-2021 Hematocrit (Bld) [Volume fraction] 41.2 % 37-47 [facility] Work Phone: [phone] Laboratory - Chemistry and C hemistry - challengeon 11-08-2021 ALP [Catalytic activity/Vol] 78 U/L 45-117 [facility] Work Phone: ALT [Catalytic activity/Vol] 17 U/L 13-56 [facility] Work Phone: CO2 [Moles/Vol] 28.0 mmol/L 21.0-32.0 [facility] Work Phone: Globulin (S) [Mass/Vol] 4.6 g/dL 2.2-4.2 [facility] Work Phone: Urea nitrogen/Creatinine [Mass ratio] 27.5 mg/mg 10-20 [facility] Work Phone: Laboratory - Hematology and Cell countson 11-08-2021 Erythrocyte distribution width (RBC) [Entitic vol] 45.7 fL 35.1-43.9 [facility] Work Phone: Erythrocyte distribution width (RBC) [Ratio] 14.3 % 11.6-14.6 [facility] Work Phone: Immature granulocytes/100 WBC (Bld) 0.400 % 0.0-0.9 [facility] Work Phone: Comment on above: IG% - Immature Granu locytes (promyelocytes, myelocytes and metamyelocytes) > 1% indicates that a LEFT SHIFT is Present. MCH (RBC) [Entitic mass] 28.0 pg 27.0-32.0 [facility] Work Phone: Nucleated RBC/100 WBC (Bld) [Ratio] 0 % 0-5 [facility] Work Phone: MCHC Auto (RBC) [Mass/Vol]on 11-08-2021 MCHC (RBC) [Mass/Vol] 31.6 g/dL 32-36 [facility] Work [facility]: No Panel Informationon 11-08 Estimated GFR (MDRD) Amer 45 mL/min >60 [facility] Work Phone: Comment on above: GFR Calc Estimated GFR (MDRD) Non-Af Amer 38 mL/min >60 [facility] Work Phone: Comment on above: Non- GFR Calc Urine Microalbumin/Creatinine Ratio TNP [facility] Work Phone: Comment on above: Test not performed Platelets bldon 11-08-2021 Platelets (Bld) [#/Vol] 218 10*3/uL 150-450 [facility] Work Phone: Serum or plasma albumin lakeisha urement (mass/volume)on 11-08-2021 Albumin [Mass/Vol] 3.8 g/dL 3.2-5.0 [facility] Work Phone: [phone] Serum or plasma albumin/glob ulin mass ratioon 11-08-2021 Albumin/Globulin [Mass ratio] 0.8 {ratio} 0.9-2.4 [facility] Work Phone: Serum or plasma calcium lakeisha urement (mass/volume)on 11-08-2021 Calcium [Mass/Vol] 10.1 mg/dL 8.5-10.1 [facility] Work Phone: Serum or plasma creatinine m easurement (mass/volume)on 11-08-2021 Creatinine [Mass/Vol] 1.42 mg/dL 0.55-1.02 [facility] Work Phone: Comment on above: The validity of the calculated GFR & GFRAA in patients over 70 years has not been determined. Clinical correlation is essential. Serum or plasma urea nitroge n measurement (mass/volume)on 11-08-2021 Urea nitrogen [Mass/Vol] 39 mg/dL 7-18 [facility] Work Phone: Thin prep Papanicolaou smear with manual screeningon 11-08-2021 Thin prep Papanicolaou smear with manual screening 19 U/L 15-37 [facility] Work Phone: Thin prep Papanicolaou smear with manual screening 5 5-15 [facility] Work Phone: Thin prep Papanicolaou smear with manual screening < 5.0 mg/L NO RANGE EST. [facility] Work Phone: Urine creatinine measurement (mass/volume)on 11-08-2021 Creatinine (U) [Mass/Vol] 35.80 mg/dL NO RANGE EST. [facility] Work Phone: Absolute lymphocyte counton 10-24-2021 Lymphocytes Auto (Unsp spec) [#/Vol] 1.26 10*3/uL 0.83-4.51 [facility] Work Phone: Basophil percentageon 2021 Basophils/100 WBC (Bld) 0.6 % 0-1 [facility] Work Phone: Bilirubin [Mass/Vol] 0.30 mg/dL 0.20-1.00 [facility] Work Phone: Comment on above: For patients on eltr ombopag therapy, use of Dimension Salol TBIL is not recommended. Chloride [Moles/Vol] 103 mmol/L 98-107 [facility] Work Phone: Eosinophils/100 WBC (Bld) 1.6 % 0-5 [facility] Work Phone: Glucose [Mass/Vol] 89 mg/dL 74-106 [facility] Work Phone: Neutrophils (Bld) [#/Vol] 4.1 10*3/uL 2.0-7.7 [facility] Work Phone: Neutrophils/100 WBC (Bld) 64.7 % 47-70 [facility] Work Phone: Potassium [Moles/Vol] 3.4 mmol/L 3.5-5.1 [facility] Work Phone: Protein [Mass/Vol] 6.6 g/dL 6.4-8.2 [facility] Work Phone: Sodium [Moles/Vol] 137 mmol/L 136-145 [facility] Work Phone: WBC (Bld) [#/Vol] 6.3 10*3/uL 4.4-11.0 [facility] Work Phone: Blood erythrocytes count (nu mber/volume)on 10-24-2021 RBC (Bld) [#/Vol] 3.99 10*6/uL 4.2-5.4 [facility] Work Phone: Blood hemoglobin measurement (mass/volume)on 10-24-2021 Hemoglobin (Bld) [Mass/Vol] 11.2 g/dL 12.0-15.0 [facility] Work Phone: Blood lymphocytes/100 leukoc yteson 10-24-2021 Lymphocytes/100 WBC (Bld) 19.9 % 19-41 [facility] Work Phone: Blood monocytes/100 leukocyt eson 10-24-2021 Monocytes/100 WBC (Bld) 12.7 % 0-10 [facility] Work Phone: Blood platelet mean volumeon 10-24-2021 Platelet mean volume (Bld) [Entitic vol] 11.0 fL 6.2-12.0 [facility] Work Phone: [phone] Determination of erythrocyte mean corpuscular volume (MCV)on 10-24-2021 MCV (RBC) [Entitic vol] 88.5 fL 81-99 [facility] Work Phone: [phone] Hematocrit Auto (Bld) [Volum e fraction]on 10-24-2021 Hematocrit (Bld) [Volume fraction] 35.3 % 37-47 [facility] Work Phone: [phone] Laboratory - Chemistry and C hemistry - challengeon 10-24-2021 ALP [Catalytic activity/Vol] 69 U/L 45-117 [facility] Work Phone: [phone] ALT [Catalytic activity/Vol] 20 U/L 13-56 [facility] Work Phone: [phone] CO2 [Moles/Vol] 28.0 mmol/L 21.0-32.0 [facility] Work Phone: [phone] Globulin (S) [Mass/Vol] 3.9 g/dL 2.2-4.2 [facility] Work Phone: [phone] Urea nitrogen/Creatinine [Mass ratio] 21.5 mg/mg 10-20 [facility] Work Phone: [phone] Laboratory - Hematology and Cell countson 10-24-2021 Erythrocyte distribution width (RBC) [Entitic vol] 46.7 fL 35.1-43.9 [facility] Work Phone: Erythrocyte distribution width (RBC) [Ratio] 14.5 % 11.6-14.6 [facility] Work Phone: Immature granulocytes/100 WBC (Bld) 0.500 % 0.0-0.9 [facility] Work Phone: Comment on above: IG% - Immature Granu locytes (promyelocytes, myelocytes and metamyelocytes) > 1% indicates that a LEFT SHIFT is Present. MCH (RBC) [Entitic mass] 28.1 pg 27.0-32.0 [facility] Work Phone: Nucleated RBC/100 WBC (Bld) [Ratio] 0 % 0-5 [facility] Work Phone: MCHC Auto (RBC) [Mass/Vol]on 10-24-2021 MCHC (RBC) [Mass/Vol] 31.7 g/dL 32-36 [facility] Work Phone: No Panel Informationon 10-24 Estimated Creatinine Clearance Calc 59.01 ml/min [facility] Work Phone: Estimated GFR (MDRD) Amer 89 mL/min >60 [facility] Work Phone: Comment on above: GFR Calc Estimated GFR (MDRD) Non-Af Amer 74 mL/min >60 [facility] Work Phone: Comment on above: Non- GFR Calc Platelets bldon 10-24-2021 Platelets (Bld) [#/Vol] 164 10*3/uL 150-450 [facility] Work Phone: Serum or plasma albumin lakeisha urement (mass/volume)on 10-24-2021 Albumin [Mass/Vol] 2.7 g/dL 3.2-5.0 [facility] Work Phone: Serum or plasma albumin/glob ulin mass ratioon 10-24-2021 Albumin/Globulin [Mass ratio] 0.7 {ratio} 0.9-2.4 [facility] Work Phone: Serum or plasma calcium lakeisha urement (mass/volume)on 10-24-2021 Calcium [Mass/Vol] 8.6 mg/dL 8.5-10.1 [facility] Work Phone: Serum or plasma creatinine m easurement (mass/volume)on 10-24-2021 Creatinine [Mass/Vol] 0.79 mg/dL 0.55-1.02 [facility] Work Phone: Comment on above: The validity of the calculated GFR & GFRAA in patients over 70 years has not been determined. Clinical correlation is essential. Serum or plasma urea nitroge n measurement (mass/volume)on 10-24-2021 Urea nitrogen [Mass/Vol] 17 mg/dL 7-18 [facility] Work Phone: Thin prep Papanicolaou smear with manual screeningon 10-24-2021 Thin prep Papanicolaou smear with manual screening 20 U/L 15-37 [facility] Work Phone: Thin prep Papanicolaou smear with manual screening 6 5-15 [facility] Work Phone: Basophil percentageon 2021 Cholesterol [Mass/Vol] 152 mg/dL <200 [facility] Work Phone: Comment on above: <200 mg/dL Desirable 200-240 mg/dL Borderline >240 mg/dL High Risk Triglyceride [Mass/Vol] 98 mg/dL [facility] Work Phone: Comment on above: The drugs N-Acetylcy steine and Metamizole may falsely depress this assay.Serum Triglycerides Reference Interval Normal <150 mg/dL Borderline high 150 - 199 mg/dL High 200 - 499 mg/dL Very High > or = 500 mg/dL Serum or plasma cholesterol in HDL measurement (mass/volume)on 10-23-2021 Cholesterol in HDL [Mass/Vol] 59 mg/dL [facility] Work Phone: Comment on above: The drugs N-Acetylcy steine and Metamizole may falsely depress this assay. Reference Range HDL <40 mg/dL Low HDL Cholesterol HDL >or= 60 mg/dL High HDL Cholesterol Serum or plasma cholesterol in VLDL measurement (mass/volume)on 10-23-2021 Cholesterol in VLDL [Mass/Vol] 20 mg/dL 5-40 [facility] Work Phone: Serum or plasma low density lipoprotein (LDL) cholesterol measurement (mass/volume)on 10-23-2021 Cholesterol in LDL [Mass/Vol] 73 mg/dL 0-130 [facility] Work Phone: Whole blood hemoglobin A1c/t otal hemoglobin ratio (mass fraction)on 10-23-2021 HbA1c (Bld) [Mass fraction] 5.5 % 3.8-5.6 [facility] Work Phone: Comment on above: Normal < 5.7 % Predi abetic 5.7 - 6.4 % Diabetic >or= 6.5 % Please note range changes. Basophil percentageon 2021 Lactate [Moles/Vol] 1.6 mmol/L 0.4-2.0 [facility] Work Phone: INR in Blood by Coagulation assayon 10-22-2021 INR Coag (Bld) [Relative time] 1.1 {INR} [facility] Work Phone: Laboratory - Chemistry and C hemistry - challengeon 10-22-2021 Magnesium [Mass/Vol] 2.3 mg/dL 1.6-2.6 [facility] Work Phone: Natriuretic peptide B (Bld) [Mass/Vol] 556.4 pg/mL 0-100 [facility] Work Phone: Laboratory - Coagulationon 0 10-22-2021 aPTT Coag (Bld) [Time] 35.2 s 24.1-36.2 [facility] Work Phone: PT Coag (PPP) [Time] 13.5 s 11.7-14.9 [facility] Work Phone: Laboratory - Microbiology an d Antimicrobial susceptibilityon 10-22-2021 SARS-CoV-2 (COVID-19) RNA KEERTHI+probe Ql (Unsp spec) Not detected Not Detect [facility] Work Phone: Comment on above: Normal Reference [...] Nom (Bld) No growth in 5 days. [facility] Work Phone: No Panel Informationon 10-22 Troponin I High Sensitivity 2200 pg/mL 3.0-54.0 [facility] Work Phone: Comment on above: Critical Result(s) C chip SANCHEZ RN at: 21:11:28 10/22/2021 by: Zayra Livingston. Results read back by same. Please Note: New Test Units and Gender Specific Reference Ranges. For more information see Policy Stat Procedure Salol High Sensitivity Troponin (TNIH) and attachments. Streptococcus pneumoniae Antigen (M [facility] Work Phone: Respiratory Panel (PCR) W [facility] Work Phone: D-Dimer Quantitative (PE/DVT) 1.50 FEU/ug/m 0.27-0.49 [facility] Work Phone: Comment on above: D-Dimer ELEVATED (>0 .49): Additional studies and clinicalassessments are indicated to conclude diagnosis of:Deep Vein Thrombosis (DVT) or Pulmonary Embolism (PE)CRITICAL VALUE VERIFIED. CALLED TO LOLI IRIZARRY10/22/21 Jose Durant.RESULTS READ BACK BY SAME . [facility] Procalcitonin [Mass/Vol] 0.23 ng/mL 0.00-0.09 [facility] Work Phone: Comment on above: A procalcitonin [...] obtained. DX CERVICAL SPINE 2 OR 3 [facility] 01-17-2018 Protein mass conc Performed at [facility] APPROVED BY: Tito Green MD Exam: [...] and C2 spinous fractures are noted Normal [facility] DX CERVICAL SPINE 2 OR 3 E [facility] 09-17-2017 DX CERVICAL SPINE 2 OR 3 VIEWS Performed at [facility] APPROVED BY: Tito Green MD Exam: [...] evidence of instability on dynamic views. Normal [facility] CT THORACIC SPINE W/O CONTRA STon 08-05-2017 CT THORACIC SPINE W/O CONTRAST Performed at [facility] APPROVED BY: Elian Nava MD CT [...] FRACTURE OF THE T6 VERTEBRAL BODY. Normal [facility] No Panel Information SARS-CoV-2 & FLU Antigen (Rapid) SARS-CoV-2 (COVID 19) [facility] Work Phone: SARS-CoV-2 & FLU Antigen (Rapid) [facility] Work Phone: Vital Signs Date Time Vital Sign Value Performing Clinician Facility 05-03-2025 13:37-0400 Body height 149.[address] Tyler Benitez MD Work Phone: [facility] 05-03-2025 13:37-0400 Body mass index (BMI) [Ratio] 36.3 kg/m2 Dr. Tyler Benitez MD Work Phone: [facility] 05-03-2025 13:37-0400 Body weight 81.[address] Tyler Benitez MD Work Phone: [facility] 05-03-2025 13:37-0400 Diastolic blood pressure 73 mm[Hg] Dr. Tyler Benitez MD Work Phone: [facility] 05-03-2025 13:37-0400 Heart rate 88 /min Dr. Tyler Benitez MD Work Phone: [facility] 05-03-2025 13:37-0400 Respiratory rate 18 /min Dr. Tyler Benitez MD Work Phone: [facility] 05-03-2025 13:37-0400 SaO2% (BldA) [Mass fraction] 96 % Dr. Tyler Benitez MD Work Phone: [facility] 05-03-2025 13:37-0400 Systolic blood pressure 137 mm[Hg] Dr. Tyler Benitez MD Work Phone: [facility] 04-08-2025 15:10-0400 Body height 152.4 cm Arya Archer MD Work Phone: [facility] Comment on above: previuos height used 04-08-2025 15:10-0400 Body mass index (BMI) [Ratio] 37.69 kg/m2 Arya Archer MD Work Phone: [facility] 04-08-2025 15:10-0400 Body temperature 98.1 [degF] Arya Archer MD Work Phone: [facility] 04-08-2025 15:10-0400 Body weight 87.54 kg Arya Archer MD Work Phone: [facility] Comment on above: previous weight used 04-08-2025 15:10-0400 Diastolic blood pressure 52 mm[Hg] Arya Archer MD Work Phone: [facility] 04-08-2025 15:10-0400 Heart rate 80 /min Arya Archer MD Work Phone: [facility] 04-08-2025 15:10-0400 Systolic blood pressure 123 mm[Hg] Arya Archer MD Work Phone: [facility] 03-02-2025 15:00-0400 Respiratory rate 18 /min Dr. Tyler Benitez MD Work Phone: [facility] 03-02-2025 15:00-0400 SaO2% (BldA) [Mass fraction] 100 % Dr. Tyler Benitez MD Work Phone: [facility] 03-02-2025 14:30-0400 Body temperature 96.9 [degF] Dr. Tyler Benitez MD Work Phone: [facility] 03-02-2025 14:30-0400 Diastolic blood pressure 96 mm[Hg] Dr. Tyler Benitez MD Work Phone: [facility] 03-02-2025 14:30-0400 Heart rate 67 /min Dr. Tyler Benitez MD Work Phone: 6(580)710-959993 [place] [address] 03-02-2025 14:30-0400 Systolic blood pressure 148 mm[Hg] Dr. Tyler Benitez MD Work Phone: 5(282)608-066694 [place] [address] 03-02-2025 11:24-0400 Body mass index (BMI) [Ratio] 37.5 kg/m2 Dr. Tyler Benitez MD Work Phone: 0(018)017-090575 [address] 03-02-2025 11:24-0400 Body weight 84.[address] Tyler Benitez MD Work Phone: 2(218)289-871693 [place] [address] 03-02-2025 10:13-0400 Body height 149.[address] Tyler Benitez MD Work Phone: 0(780)781-116375 [address] 11-10-2024 18:51-0400 Body temperature 98 [degF] Dr. Tyler Benitez MD Work Phone: 3(068)278-009475 [address] 11-10-2024 18:51-0400 Diastolic blood pressure 74 mm[Hg] Dr. Tyler Benitez MD Work Phone: 6(004)635-913293 [place] [address] 11-10-2024 18:51-0400 Heart rate 78 /min Dr. Tyler Benitez MD Work Phone: [facility] 11-10-2024 18:51-0400 Respiratory rate 16 /min Dr. Tyler Benitez MD Work Phone: [facility] 11-10-2024 18:51-0400 SaO2% (BldA) [Mass fraction] 97 % Dr. Tyler Benitez MD Work Phone: [facility] 11-10-2024 18:51-0400 Systolic blood pressure 149 mm[Hg] Dr. Tyler Benitez MD Work Phone: [facility] 11-10-2024 17:00-0400 Inhaled oxygen flow rate 3 L/min Dr. Tyler Benitez MD Work Phone: [facility] 11-10-2024 14:21-0400 Body mass index (BMI) [Ratio] 36.4 kg/m2 Dr. Tyler Benitez MD Work Phone: 4(854)482-981193 [place] [address] 11-10-2024 14:21-0400 Body weight 84.[address] Tyler Benitez MD Work Phone: 3(406)390-551793 [place] [address] 11-10-2024 14:18-0400 Body height 152.[address] Tyler Benitez MD Work Phone: 2(312)285-422193 [place] [address] 08-29-2023 16:11-0500 Body height 149.[address] Tyler Benitez Work Phone: 2(651)092-832093 [place] [address] 08-29-2023 16:11-0500 Body mass index (BMI) [Ratio] 37.3 kg/m2 Dr. Tyler Benitez Work Phone: 9(797)846-085693 [place] [address] 08-29-2023 16:11-0500 Body temperature 98.2 [degF] Dr. Tyler Benitez Work Phone: [facility] 08-29-2023 16:11-0500 Body weight 83.[address] Tyler Benitez Work Phone: [facility] 08-29-2023 16:11-0500 Diastolic blood pressure 84 mm[Hg] Dr. Tyler Benitez Work Phone: [facility] 08-29-2023 16:11-0500 Heart rate 94 /min Dr. Tyler Benitez Work Phone: [facility] 08-29-2023 16:11-0500 Respiratory rate 14 /min Dr. Tyler Benitez Work Phone: [facility] 08-29-2023 16:11-0500 SaO2% (BldA) [Mass fraction] 100 % Dr. Tyler Benitez Work Phone: [facility] 08-29-2023 16:11-0500 Systolic blood pressure 132 mm[Hg] Dr. Tyler Benitez Work Phone: [facility] 05-24-2023 08:03-0400 Body mass index (BMI) [Ratio] 36.8 kg/m2 Dr. Tyler Benitez Work Phone: [facility] 05-24-2023 08:03-0400 Body weight 82.[address] Tyler Benitez Work Phone: [facility] 05-24-2023 07:17-0400 Body height 149.[address] Tyler Benitez Work Phone: [facility] 05-24-2023 07:17-0400 Body temperature 97.5 [degF] Dr. Tyler Benitez Work Phone: [facility] 05-24-2023 07:17-0400 Diastolic blood pressure 88 mm[Hg] Dr. Tyler Benitez Work Phone: [facility] 05-24-2023 07:17-0400 Heart rate 75 /min Dr. Tyler Benitez Work Phone: [facility] 05-24-2023 07:17-0400 Respiratory rate 16 /min Dr. Tyler Benitez Work Phone: [facility] 05-24-2023 07:17-0400 SaO2% (BldA) [Mass fraction] 98 % Dr. Tyler Benitez Work Phone: [facility] 05-24-2023 07:17-0400 Systolic blood pressure 139 mm[Hg] Dr. Tyler Benitez Work Phone: [facility] 04-19-2023 16:51-0400 Body temperature 99.1 [degF] Dr. Tyler Benitez Work Phone: [facility] 04-19-2023 16:51-0400 Diastolic blood pressure 83 mm[Hg] Dr. Tyler Benitez Work Phone: [facility] 04-19-2023 16:51-0400 Heart rate 83 /min Dr. Tyler Benitez Work Phone: [facility] 04-19-2023 16:51-0400 Respiratory rate 18 /min Dr. Tyler Benitez Work Phone: [facility] 04-19-2023 16:51-0400 SaO2% (BldA) [Mass fraction] 98 % Dr. Tyler Benitez Work Phone: [facility] 04-19-2023 16:51-0400 Systolic blood pressure 153 mm[Hg] Dr. Tyler Benitez Work Phone: [facility] 04-19-2023 06:00-0400 Body mass index (BMI) [Ratio] 35.6 kg/m2 Dr. Tyler Benitez Work Phone: [facility] 04-19-2023 06:00-0400 Body weight 80.[address] Tyler Benitez Work Phone: [facility] 04-15-2023 16:08-0400 Body height 150.[address] Tyler Benitez Work Phone: [facility] 04-15-2023 15:32-0400 Body temperature 97.2 [degF] Dr. Tyler Benitez Work Phone: [facility] 04-15-2023 15:32-0400 Diastolic blood pressure 60 mm[Hg] Dr. Tyler Benitez Work Phone: [facility] 04-15-2023 15:32-0400 Heart rate 80 /min Dr. Tyler Benitez Work Phone: [facility] 04-15-2023 15:32-0400 Respiratory rate 18 /min Dr. Tyler Benitez Work Phone: [facility] 04-15-2023 15:32-0400 SaO2% (BldA) [Mass fraction] 95 % Dr. Tyler Benitez Work Phone: [facility] 04-15-2023 15:32-0400 Systolic blood pressure 152 mm[Hg] Dr. Tyler Benitez Work Phone: [facility] 04-15-2023 08:49-0400 Body height 150.[address] Tyler Benitez Work Phone: [facility] 04-05-2023 14:24-0400 Body temperature 96.2 [degF] Dr. Tyler Benitez Work Phone: [facility] 04-05-2023 14:24-0400 Diastolic blood pressure 93 mm[Hg] Dr. Tyler Benitez Work Phone: [facility] 04-05-2023 14:24-0400 Heart rate 114 /min Dr. Tyler Benitez Work Phone: [facility] 04-05-2023 14:24-0400 Respiratory rate 20 /min Dr. Tyler Benitez Work Phone: [facility] 04-05-2023 14:24-0400 SaO2% (BldA) [Mass fraction] 98 % Dr. Tyler Benitez Work Phone: [facility] 04-05-2023 14:24-0400 Systolic blood pressure 106 mm[Hg] Dr. Tyler Benitez Work Phone: [facility] 04-05-2023 00:46-0400 Diastolic blood pressure 61 mm[Hg] Dr. Tyler Benitez Work Phone: [facility] 04-05-2023 00:46-0400 Heart rate 97 /min Dr. Tyler Benitez Work Phone: [facility] 04-05-2023 00:46-0400 Systolic blood pressure 140 mm[Hg] Dr. Tyler Benitez Work Phone: [facility] 04-04-2023 22:00-0400 Respiratory rate 20 /min Dr. Tyler Benitez Work Phone: [facility] 04-04-2023 20:02-0400 Body mass index (BMI) [Ratio] 38.5 kg/m2 Dr. Tyler Benitez Work Phone: [facility] 04-04-2023 20:02-0400 Body weight 86.[address] Tyler Benitez Work Phone: [facility] 04-04-2023 19:32-0400 Body temperature 97.4 [degF] Dr. Tyler Benitez Work Phone: [facility] 04-04-2023 19:32-0400 SaO2% (BldA) [Mass fraction] 100 % Dr. Tyler Benitez Work Phone: [facility] 03-19-2023 17:00-0400 Body temperature 97.9 [degF] Dr. Tyler Benitez Work Phone: [facility] 03-19-2023 17:00-0400 Diastolic blood pressure 47 mm[Hg] Dr. Tyler Benitez Work Phone: [facility] 03-19-2023 17:00-0400 Heart rate 100 /min Dr. Tyler Benitez Work Phone: [facility] 03-19-2023 17:00-0400 Respiratory rate 18 /min Dr. Tyler Benitez Work Phone: [facility] 03-19-2023 17:00-0400 SaO2% (BldA) [Mass fraction] 100 % Dr. Tyler Benitez Work Phone: [facility] 03-19-2023 17:00-0400 Systolic blood pressure 129 mm[Hg] Dr. Tyler Benitez Work Phone: [facility] 03-18-2023 12:57-0400 Body weight [address] Tyler Benitez Work Phone: [facility] 03-18-2023 03:31-0400 Inhaled oxygen concentration 96 % Dr. Tyler Benitez Work Phone: [facility] 03-17-2023 21:58-0400 Inhaled oxygen flow rate 2 L/min Dr. Tyler Benitez Work Phone: [facility] 03-17-2023 16:03-0400 Body mass index (BMI) [Ratio] 38.2 kg/m2 Dr. Tyler Benitez Work Phone: [facility] 03-12-2023 15:33-0400 Diastolic blood pressure 77 mm[Hg] Dr. Tyler Benitez Work Phone: [facility] 03-12-2023 15:33-0400 Heart rate 65 /min Dr. Tyler Benitez Work Phone: [facility] 03-12-2023 15:33-0400 Respiratory rate 18 /min Dr. Tyler Benitez Work Phone: [facility] 03-12-2023 15:33-0400 SaO2% (BldA) [Mass fraction] 97 % Dr. Tyler Benitez Work Phone: [facility] 03-12-2023 15:33-0400 Systolic blood pressure 132 mm[Hg] Dr. Tyler Benitez Work Phone: [facility] 02-26-2023 19:00-0400 Body mass index (BMI) [Ratio] 38.5 kg/m2 Dr. Tyler Benitez Work Phone: [facility] 02-26-2023 19:00-0400 Body weight 86.[address] Tyler Benitez Work Phone: [facility] 02-26-2023 19:00-0400 SaO2% (BldA) [Mass fraction] 98 % Dr. Tyler Benitez Work Phone: [facility] 02-26-2023 18:37-0400 Body temperature 97.5 [degF] Dr. Tyler Benitez Work Phone: [facility] 02-26-2023 18:37-0400 Diastolic blood pressure 61 mm[Hg] Dr. Tyler Benitez Work Phone: [facility] 02-26-2023 18:37-0400 Heart rate 76 /min Dr. Tyler Benitez Work Phone: [facility] 02-26-2023 18:37-0400 Respiratory rate 18 /min Dr. Tyler Benitez Work Phone: [facility] 02-26-2023 18:37-0400 Systolic blood pressure 156 mm[Hg] Dr. Tyler Benitez Work Phone: [facility] 01-15-2023 22:49-0400 Diastolic blood pressure 78 mm[Hg] Dr. Tyler Benitez Work Phone: [facility] 01-15-2023 22:49-0400 Systolic blood pressure 124 mm[Hg] Dr. Tyler Benitez Work Phone: 2(076)348-443793 [place] [address] 01-15-2023 20:16-0400 Heart rate 79 /min Dr. Tyler Benitez Work Phone: 5(102)611-701594 [place] [address] 01-15-2023 20:16-0400 Respiratory rate 18 /min Dr. Tyler Benitez Work Phone: 8(423)632-049794 [place] [address] 01-15-2023 20:16-0400 SaO2% (BldA) [Mass fraction] 98 % Dr. Tyler Benitez Work Phone: 6(546)240-325893 [place] [address] 01-15-2023 18:17-0400 Body temperature 97.8 [degF] Dr. Tyler Benitez Work Phone: 5(306)310-522994 [place] [address] 01-15-2023 18:15-0400 Body mass index (BMI) [Ratio] 39.7 kg/m2 Dr. Tyler Benitez Work Phone: 0(596)835-545493 [place] [address] 01-15-2023 18:15-0400 Body weight 92.[address] Tyler Benitez Work Phone: [facility] 11-27-2022 15:25-0400 Body height 152.[address] Tyler Benitez Work Phone: 7(407)623-336893 [place] [address] 11-27-2022 15:25-0400 Body mass index (BMI) [Ratio] 37.5 kg/m2 Dr. Tyler Benitez Work Phone: 5(266)270-421693 [place] [address] 11-27-2022 15:25-0400 Body weight 87.[address] Tyler Benitez Work Phone: 5(896)579-840593 [place] [address] 11-27-2022 15:25-0400 Diastolic blood pressure 67 mm[Hg] Dr. Tyler Benitez Work Phone: [facility] 11-27-2022 15:25-0400 Heart rate 74 /min Dr. Tyler Benitez Work Phone: [facility] 11-27-2022 15:25-0400 Respiratory rate 20 /min Dr. Tyler Benitez Work Phone: [facility] 11-27-2022 15:25-0400 SaO2% (BldA) [Mass fraction] 99 % Dr. Tyler Benitez Work Phone: [facility] 11-27-2022 15:25-0400 Systolic blood pressure 134 mm[Hg] Dr. Tyler Benitez Work Phone: [facility] 05-20-2022 22:02-0400 Diastolic blood pressure 61 mm[Hg] Dr. Tyler Benitez Work Phone: [facility] Work Phone: 05-20-2022 22:02-0400 Heart rate 79 /min Dr. Tyler Benitez Work Phone: [facility] Work Phone: 05-20-2022 22:02-0400 Systolic blood pressure 147 mm[Hg] Dr. Tyler Benitez Work Phone: [facility] Work Phone: 05-20-2022 20:25-0400 Body height 152.[address] Tyler Benitez Work Phone: [facility] Work Phone: 05-20-2022 20:25-0400 Body mass index (BMI) [Ratio] 35.3 kg/m2 Dr. Tyler Benitez Work Phone: [facility] Work Phone: 05-20-2022 20:25-0400 Body temperature 97 [degF] Dr. Tyler Benitez Work Phone: [facility] Work Phone: 05-20-2022 20:25-0400 Body weight 82.[address] Tyler Benitez Work Phone: [facility] Work Phone: 05-20-2022 20:25-0400 Respiratory rate 18 /min Dr. Tyler Benitez Work Phone: [facility] Work Phone: 05-20-2022 20:25-0400 SaO2% (BldA) [Mass fraction] 100 % Dr. Tyler Benitez Work Phone: [facility] Work Phone: 05-16-2022 13:44-0400 Body mass index (BMI) [Ratio] 37 kg/m2 Dr. Tyler Benitez Work Phone: [facility] Work Phone: 05-16-2022 13:44-0400 Body weight 86.[address] Tyler Benitez Work Phone: [facility] Work Phone: 05-16-2022 13:44-0400 Diastolic blood pressure 65 mm[Hg] Dr. Tyler Benitez Work Phone: [facility] Work Phone: 05-16-2022 13:44-0400 Heart rate 62 /min Dr. Tyler Benitez Work Phone: [facility] Work Phone: 05-16-2022 13:44-0400 Respiratory rate 18 /min Dr. Tyler Benitez Work Phone: [facility] Work Phone: 05-16-2022 13:44-0400 Systolic blood pressure 142 mm[Hg] Dr. Tyler Benitez Work Phone: [facility] Work Phone: 05-08-2022 15:27-0400 Diastolic blood pressure 70 mm[Hg] Dr. Tyler Benitez Work Phone: [facility] Work Phone: 05-08-2022 15:27-0400 Heart rate 60 /min Dr. Tyler Benitez Work Phone: [facility] Work Phone: 05-08-2022 15:27-0400 Respiratory rate 18 /min Dr. Tyler Benitez Work Phone: [facility] Work Phone: 05-08-2022 15:27-0400 SaO2% (BldA) [Mass fraction] 98 % Dr. Tyler Benitez Work Phone: [facility] Work Phone: 05-08-2022 15:27-0400 Systolic blood pressure 143 mm[Hg] Dr. Tyler Benitez Work Phone: [facility] Work Phone: 05-08-2022 13:18-0400 Body height 152.[address] Tyler Benitez Work Phone: [facility] Work Phone: 05-08-2022 13:18-0400 Body mass index (BMI) [Ratio] 35.2 kg/m2 Dr. Tyler Benitez Work Phone: [facility] Work Phone: 05-08-2022 13:18-0400 Body temperature 97 [degF] Dr. Tyler Benitez Work Phone: [facility] Work Phone: 05-08-2022 13:18-0400 Body weight 81.[address] Tyler Benitez Work Phone: [facility] Work Phone: 04-16-2022 13:01-0400 Body mass index (BMI) [Ratio] 36.7 kg/m2 Dr. Tyler Benitez Work Phone: [facility] Work Phone: 04-16-2022 13:01-0400 Body weight 85.[address] Tyler Benitez Work Phone: [facility] Work Phone: 02-28-2022 14:21-0400 Body mass index (BMI) [Ratio] 35.7 kg/m2 Dr. Tyler Benitez Work Phone: [facility] Work Phone: 02-28-2022 14:21-0400 Body weight [address] Tyler Benitez Work Phone: [facility] Work Phone: 02-28-2022 14:21-0400 Diastolic blood pressure 56 mm[Hg] Dr. Tyler Benitez Work Phone: [facility] Work Phone: 02-28-2022 14:21-0400 Heart rate 80 /min Dr. Tyler Benitez Work Phone: [facility] Work Phone: 02-28-2022 14:21-0400 Respiratory rate 18 /min Dr. Tyler Benitez Work Phone: [facility] Work Phone: 02-28-2022 14:21-0400 Systolic blood pressure 113 mm[Hg] Dr. Tyler Benitez Work Phone: [facility] Work Phone: 01-18-2022 17:17-0400 Diastolic blood pressure 87 mm[Hg] Dr. Tyler Benitez Work Phone: [facility] Work Phone: 01-18-2022 17:17-0400 Heart rate 79 /min Dr. Tyler Benitez Work Phone: [facility] Work Phone: 01-18-2022 17:17-0400 Respiratory rate 16 /min Dr. Tyler Benitez Work Phone: [facility] Work Phone: 01-18-2022 17:17-0400 SaO2% (BldA) [Mass fraction] 99 % Dr. Tyler Benitez Work Phone: [facility] Work Phone: 01-18-2022 17:17-0400 Systolic blood pressure 144 mm[Hg] Dr. Tyler Benitez Work Phone: [facility] Work Phone: 01-18-2022 13:38-0400 Body temperature 96.9 [degF] Dr. Tyler Benitez Work Phone: [facility] Work Phone: 01-18-2022 13:34-0400 Body height 152.[address] Tlyer eBnitez Work Phone: [facility] Work Phone: 01-18-2022 13:34-0400 Body mass index (BMI) [Ratio] 36.1 kg/m2 Dr. Tyler Benitez Work Phone: [facility] Work Phone: 01-18-2022 13:34-0400 Body weight 83.[address] Tyler Benitez Work Phone: [facility] Work Phone: 01-16-2022 17:31-0400 Diastolic blood pressure 84 mm[Hg] Dr. Tyler Benitez Work Phone: [facility] Work Phone: 01-16-2022 17:31-0400 Heart rate 69 /min Dr. Tyler Benitez Work Phone: [facility] Work Phone: 01-16-2022 17:31-0400 Respiratory rate 18 /min Dr. Tyler Benitez Work Phone: [facility] Work Phone: 01-16-2022 17:31-0400 SaO2% (BldA) [Mass fraction] 98 % Dr. Tyler Benitez Work Phone: [facility] Work Phone: 01-16-2022 17:31-0400 Systolic blood pressure 171 mm[Hg] Dr. Tyler Benitez Work Phone: [facility] Work Phone: 01-16-2022 15:58-0400 Body temperature 98.2 [degF] Dr. Tyler Benitez Work Phone: [facility] Work Phone: 01-16-2022 15:01-0400 Body height 149.[address] Tyler Benitez Work Phone: [facility] Work Phone: 01-16-2022 15:01-0400 Body mass index (BMI) [Ratio] 38.1 kg/m2 Dr. Tyler Benitez Work Phone: [facility] Work Phone: 01-16-2022 15:01-0400 Body weight 85.[address] Tyler Benitez Work Phone: [facility] Work Phone: 11-24-2021 15:32-0400 Body height 149.[address] Tyler Benitez Work Phone: [facility] Work Phone: 11-24-2021 15:32-0400 Body mass index (BMI) [Ratio] 36.5 kg/m2 Dr. Tyler Benitez Work Phone: [facility] Work Phone: 11-24-2021 15:32-0400 Body weight 82.[address] Tyler Benitez Work Phone: [facility] Work Phone: 11-24-2021 15:32-0400 Diastolic blood pressure 62 mm[Hg] Dr. Tyler Benitez Work Phone: [facility] Work Phone: 11-24-2021 15:32-0400 Heart rate 76 /min Dr. Tyler Benitez Work Phone: [facility] Work Phone: 11-24-2021 15:32-0400 Respiratory rate 16 /min Dr. Tyler Benitez Work Phone: [facility] Work Phone: 11-24-2021 15:32-0400 Systolic blood pressure 142 mm[Hg] Dr. Tyler Benitez Work Phone: [facility] Work Phone: 10-24-2021 13:56-0500 Body temperature 97.5 [degF] Dr. Tyler Benitez Work Phone: [facility] Work Phone: 10-24-2021 13:56-0500 Diastolic blood pressure 65 mm[Hg] Dr. Tyler Benitez Work Phone: [facility] Work Phone: 10-24-2021 13:56-0500 Heart rate 81 /min Dr. Tyler Benitez Work Phone: [facility] Work Phone: 10-24-2021 13:56-0500 Respiratory rate 20 /min Dr. Tyler Benitez Work Phone: [facility] Work Phone: 10-24-2021 13:56-0500 SaO2% (BldA) [Mass fraction] 96 % Dr. Tyler Benitez Work Phone: [facility] Work Phone: 10-24-2021 13:56-0500 Systolic blood pressure 143 mm[Hg] Dr. Tyler Benitez Work Phone: [facility] Work Phone: 10-23-2021 11:59-0500 Body weight 87.[address] Tyler Benitez Work Phone: [facility] Work Phone: 10-22-2021 16:29-0500 Body mass index (BMI) [Ratio] 38.8 kg/m2 Dr. Tyler Benitez Work Phone: [facility] Work Phone: Encounters Encounter Date Encounter Type Care Provider Facility Start: 06-14-2025 End: 06-14-2025 Emergency department patient visit Tyler Emmanuel Facility:[facility] Start: 05-03-2025 End: 05-03-[address] Danial Cook MD -[facility] Work Phone: Start: 05-03-2025 End: 05-03-[address] Tyler Benitez MD Work Phone: -[facility] Start: 04-08-2025 End: 04-08-2025 Patient encounter procedure Arya Archer MD Work Phone: Rheumatology Comment on above: Osteoarthritis, gene ralized (Primary Dx) Start: 04-08-2025 End: 04-08-2025 ambulatory TYLER Evangelist BENITEZ Facility:[facility] Start: 03-17-2025 End: 03-17-2025 ambulatory Ana Rosa Ricketts PT Work Phone: [facility] Comment on above: Lymphedema of both l ower extremities (Primary Dx) Start: 03-17-2025 End: 03-17-2025 ambulatory TYLER Evangelist BENITEZ Facility:[facility] Start: 03-12-2025 End: 03-12-[address] Tyler Benitez MD Work Phone: -Cardiovascular Services Start: 03-12-2025 End: 03-12-[address] Danial Cook MD -Cardiovascular Services Work Phone: Start: 03-12-2025 ambulatory Tyler Benitez Facility:[facility] Start: 03-12-2025 Non-patient / Non-visit Dr. Aldo DEAN -[facility] Start: 03-11-2025 End: 03-11-[address] Tyler Benitez MD Work Phone: -[facility] Start: 03-11-2025 End: 03-11-2025 Patient encounter procedure Radha Wood Work Phone: Podiatry Comment on above: Onychomycosis (Prima ry Dx); Pain in toe of left foot; Pain in toe of right foot; Ingrowing toenail of left foot; Pes planus of both feet; Callus Start: 03-11-2025 End: 03-12-2025 ambulatory TYLER BENITEZ Facility:[facility] Start: 03-11-2025 End: 03-11-2025 ambulatory Tyler Benitez Facility:[facility] Start: 03-02-2025 End: 03-02-2025 Emergency department patient visit Dr. Tyler Benitez MD Work Phone: -Emergency Department Work Phone: Start: 02-22-2025 ambulatory Tyler Benitez Facility:[facility] Start: 02-19-2025 End: 02-19-[address] Tyler Benitez MD Work Phone: -Laboratory Start: 02-19-2025 End: 02-19-[address] Danial Cook MD -Laboratory Work Phone: Start: 02-19-2025 End: 02-19-2025 Telephone encounter Prerna Lemon PT [facility] Comment on above: Orders Start: 02-19-2025 End: 02-19-2025 ambulatory Tyler Benitez Facility:[facility] Start: 12-22-2024 [facility] Tyler Benitez Facility:[facility] Start: 11-24-2024 End: 11-24-2024 Telephone encounter Radha Wood Work Phone: Podiatry Comment on above: Patient Update Start: 11-20-2024 End: 11-20-2024 ambulatory Prerna Lemon PT [facility] Comment on above: Lymphedema of both l ower extremities (Primary Dx) Start: 11-13-2024 End: 11-13-2024 ambulatory Prerna Lemon PT [facility] Comment on above: Lymphedema of both l ower extremities (Primary Dx) Start: 11-10-2024 End: 11-10-2024 Emergency department patient visit Dr. Tyler Benitez MD Work Phone: -Emergency Department Work Phone: Start: 11-09-2024 End: 03-17-2025 Telephone encounter Prerna Bonds PT [facility] Comment on above: Returning [...] hawkins spoke with nurse in [facility] who consulted physician on staff and [...] 10-30-2024 End: 10-30-2024 ambulatory Prerna Lemon PT [facility] Comment on above: Lymphedema of both l ower extremities (Primary Dx) Start: 09-25-2024 End: 09-25-2024 ambulatory Prerna Lemon PT [facility] Comment on above: Lymphedema of both l ower extremities (Primary Dx) Start: 09-04-2024 End: 09-04-2024 ambulatory Prerna Lemon PT [facility] Comment on above: Lymphedema of both l ower extremities (Primary Dx) Start: 08-27-2024 End: 08-27-[address] Alphonso Newell MD -[facility] Work Phone: Start: 08-27-2024 End: 08-27-2024 ambulatory Tyler Benitez Facility:[facility] Start: 08-21-2024 End: 08-21-[address] Alphonso Newell MD -[facility] Work Phone: Start: 08-21-2024 End: 08-21-2024 ambulatory Tyler Benitez Facility:[facility] Start: 08-11-2024 End: 08-11-[address] Alphonso Newell MD -[facility] Work Phone: Start: 08-11-2024 End: 08-11-2024 ambulatory Tyler Benitez Facility:[facility] Start: 08-11-2024 End: 08-11-2024 ambulatory Tyler Benitez Facility:[facility] Start: 07-30-2024 ambulatory Tyler Benitez Facility:[facility] Start: 07-17-2024 End: 07-17-2024 ambulatory Perrna Lemon PT [facility] Comment on above: Lymphedema of both l ower extremities (Primary Dx) Start: 07-14-2024 End: 07-14-[address] Alphonso Newell MD -[facility] Work Phone: Start: 07-14-2024 End: 07-14-2024 ambulatory Tyler Benitez Facility:[facility] Start: 07-10-2024 End: 07-10-2024 ambulatory Prerna Lemon PT [facility] Comment on above: Lymphedema of both l ower extremities (Primary Dx) Start: 06-24-2024 End: 06-24-2024 ambulatory Prerna Lemon PT [facility] Comment on above: Lymphedema of both l ower extremities (Primary Dx) Start: 06-19-2024 End: 06-19-2024 ambulatory Prerna Lemon PT [facility] Comment on above: Lymphedema of both l ower extremities (Primary Dx) Start: 06-12-2024 End: 06-12-2024 Telephone encounter Prerna Lemon PT [facility] Comment on above: Returning Patient's Call (Returned pt's voicemail message requesting more PT visits and concern that her legs/feet are more swollen. /Therapist reviewed the appts that were already scheduled with pt and offered an appt for 06/15 that became available today d/t [facility]. Pt first stated she could only keep Saturday's visit (06/19) because her wagon driver salesperson can only take her on Fridays. Later, she said she would call her wagon driver salesperson to see if she could bring her on Saturday and would let us know. /Reviewed HEP with pt & instructed to do 2x/day) Start: 05-29-2024 End: 05-29-2024 ambulatory Prerna Lemon PT [facility] Comment on above: Lymphedema of both l ower extremities (Primary Dx) Start: 05-22-2024 End: 05-22-2024 ambulatory Prerna Lemon PT [facility] Comment on above: Lymphedema of both l ower extremities (Primary Dx) Start: 05-08-2024 End: 05-08-2024 ambulatory Prerna Lemon PT [facility] Comment on above: Lymphedema of both l ower extremities (Primary Dx) Start: 04-24-2024 End: 04-24-2024 ambulatory Prerna Lemon PT [facility] Comment on above: Lymphedema of both l ower extremities (Primary Dx) Start: 04-17-2024 End: 04-17-2024 ambulatory Prerna Lemon PT [facility] Comment on above: Lymphedema of both l ower extremities (Primary Dx) Start: 04-03-2024 End: 04-03-2024 ambulatory Prerna Lemon PT [facility] Comment on above: Lymphedema of both l ower extremities (Primary Dx) Start: 03-27-2024 End: 03-27-2024 ambulatory Prerna Lemon PT [facility] Comment on above: Lymphedema of both l ower extremities (Primary Dx) Start: 03-13-2024 End: 03-13-2024 ambulatory Prerna Lemon PT [facility] Comment on above: Lymphedema of both l ower extremities (Primary Dx) Start: 03-04-2024 End: 03-04-2024 ambulatory Prerna Lemon PT [facility] Comment on above: Lymphedema of both l ower extremities (Primary Dx) Start: 02-14-2024 End: 02-14-2024 ambulatory Prerna Lemon PT [facility] Comment on above: Lymphedema of both l ower extremities (Primary Dx) Start: 02-07-2024 End: 02-07-2024 ambulatory Prerna Lemon PT [facility] Comment on above: Lymphedema of both l ower extremities (Primary Dx) Start: 01-24-2024 End: 01-24-2024 ambulatory Prerna Lemon PT [facility] Comment on above: Lymphedema of both l ower extremities (Primary Dx) Start: 01-17-2024 End: 01-17-2024 ambulatory Prerna Lemon PT [facility] Comment on above: Lymphedema of both l ower extremities (Primary Dx) Start: 01-03-2024 End: 01-03-2024 Patient encounter procedure Radha Wood Work Phone: Podiatry Comment on above: Onychomycosis (Prima ry Dx); Pain in toe of left foot; Pain in toe of right foot Start: 12-27-2023 End: 12-27-2023 ambulatory Prerna Lemon PT [facility] Comment on above: Lymphedema of both l ower extremities (Primary Dx) Start: 12-17-2023 End: 12-17-[address] Tyler Benitez Work Phone: [facility] Work Phone: Start: 12-17-2023 End: 12-17-[address] Tyler Benitez Work Phone: [facility] Work Phone: Start: 12-13-2023 End: 12-13-2023 ambulatory Prerna Lemon PT [facility] Comment on above: Lymphedema of both l ower extremities (Primary Dx) Start: 11-29-2023 End: 11-29-2023 ambulatory Prerna Lemon PT [facility] Comment on above: Lymphedema of both l ower extremities (Primary Dx) Start: 11-15-2023 End: 11-15-2023 ambulatory Prerna Lemon PT [facility] Comment on above: Lymphedema of both l ower extremities (Primary Dx) Start: 10-28-2023 End: 10-28-2023 ambulatory Prerna Lemon PT [facility] Comment on above: Lymphedema of both l ower extremities (Primary Dx) Start: 10-14-2023 End: 10-14-2023 ambulatory Prerna Lemon PT [facility] Comment on above: Lymphedema of both l ower extremities (Primary Dx) Start: 10-07-2023 End: 10-07-2023 ambulatory Prerna Lemon PT [facility] Comment on above: Lymphedema of both l ower extremities (Primary Dx) Start: 10-04-2023 End: 10-04-2023 ambulatory Prerna Lemon PT [facility] Comment on above: Lymphedema of both l ower extremities (Primary Dx) Start: 08-29-2023 End: 08-29-[address] Tyler Benitez Work Phone: [facility] Work Phone: Start: 08-07-2023 End: 08-07-2023 ambulatory Prerna Lemon PT [facility] Comment on above: Lymphedema of both l ower extremities (Primary Dx) Start: 08-02-2023 End: 08-02-2023 ambulatory Prerna Lemon PT [facility] Comment on above: Lymphedema of both l ower extremities (Primary Dx) Start: 2023 Telephone encounter Radha Armstrong Work Phone: Podiatry Comment on above: Results Start: 07-17-2023 End: 07-17-2023 Subsequent hospital visit by physician [facility] Work Phone: Radiology Comment on above: [...] 07-01-[address] Tyler Benitez Work Phone: [facility] Work Phone: Start: 07-01-2023 End: 07-01-[address] Tyler Benitez Work Phone: [facility] Work Phone: Start: 06-28-2023 End: 06-28-2023 ambulatory Prerna Lemon PT [facility] Comment on above: Lymphedema of both l ower extremities (Primary Dx) Start: 06-21-2023 End: 06-21-2023 ambulatory Prerna Lemon PT [facility] Comment on above: Lymphedema of both l ower extremities (Primary Dx) Start: 06-18-2023 End: 06-18-[address] Tyler Benitez Work Phone: [facility] Work Phone: Start: 06-18-2023 End: 06-18-[address] Tyler Benitez Work Phone: [facility] Start: 06-17-2023 Telephone encounter Prerna Lemon PT [facility] Comment on above: Appointment Start: 06-10-2023 End: 06-10-2023 ambulatory Prerna Lemon PT [facility] Comment on above: Lymphedema of both l ower extremities (Primary Dx) Start: 06-10-2023 End: 06-10-[address] Tyler Benitez Work Phone: [facility] Work Phone: Start: 06-10-2023 End: 06-10-[address] Tyler Benitez Work Phone: [facility] Work Phone: Start: 06-03-2023 End: 06-03-[address] Tyler Benitez Work Phone: [facility] Work Phone: Start: 06-03-2023 End: 06-03-[address] Tyler Benitez Work Phone: [facility]-Laboratory, Specimen Work Phone: Start: 05-31-2023 End: 05-31-2023 ambulatory Prerna Lemon PT [facility] Comment on above: Lymphedema of both l ower extremities (Primary Dx) Start: 05-24-2023 End: 05-24-2023 ambulatory Prerna Lemon PT [facility] Comment on above: Unsteady gait when w alking; Lymphedema of both lower extremities Start: 05-24-2023 End: 05-24-2023 Emergency department patient visit Dr. Tyler Benitez Work Phone: [facility]-Emergency Department Work Phone: Start: 05-17-2023 End: 05-17-2023 ambulatory Prerna Lemon PT [facility] Comment on above: Lymphedema of both l ower extremities (Primary Dx) Start: 05-10-2023 End: 05-10-2023 ambulatory Prerna Lemon PT [facility] Comment on above: Lymphedema of both l ower extremities (Primary Dx) Start: 05-03-2023 End: 05-03-2023 ambulatory Prerna Lemon PT [facility] Comment on above: Lymphedema of both l ower extremities (Primary Dx) Start: 04-24-2023 End: 04-24-2023 ambulatory Prerna Lemon PT [facility] Comment on above: Lymphedema of both l ower extremities (Primary Dx) Start: 04-19-2023 Non-patient / Non-visit Dr. Silvio Benitez Work Phone: [facility] Work Phone: Start: 04-18-2023 Non-patient / Non-visit Dr. Silvio Benitez Work Phone: [facility] Work Phone: Start: 04-17-2023 Non-patient / Non-visit Dr. Silvio Benitez Work Phone: [facility] Work Phone: Start: 04-16-2023 Non-patient / Non-visit Dr. Silvio Benitez Work Phone: [facility] Start: 04-16-2023 Non-patient / Non-visit Dr. Silvio Benitez Work Phone: [facility] Work Phone: Start: 04-15-2023 End: 04-19-2023 Evaluation and management of inpatient Dr. Tyler Benitez Work Phone: [facility]-Medical Surgical 3 Work Phone: Start: 04-15-2023 End: 04-19-[address] Tyler Benitez Work Phone: [facility] Work Phone: Start: 04-12-2023 End: 04-12-2023 ambulatory Prerna Lemon PT [facility] Comment on above: Lymphedema of both l ower extremities (Primary Dx) Start: 04-05-2023 End: 04-05-2023 Emergency department patient visit Dr. Tlyer Benitez Work Phone: [facility]-Emergency Department Work Phone: Start: 04-04-2023 End: 04-05-2023 Emergency department patient visit Dr. Tyler Benitez Work Phone: [facility]-Emergency Department Work Phone: Start: 03-29-2023 End: 04-01-2023 Evaluation and management of inpatient TYLER BENITEZ Facility:[facility] Start: 03-29-2023 Telephone encounter Prerna Lemon PT [facility] Comment on above: Appointment Start: 03-22-2023 End: 03-22-2023 ambulatory Prerna Lemon PT [facility] Comment on above: Lymphedema of both l ower extremities (Primary Dx) Start: 03-21-2023 Telephone encounter Prerna Lemon PT [facility] Comment on above: Patient Update Start: 03-20-2023 Telephone encounter Judith Walton elicia IRWIN Work Phone: Plastic Surgery Comment on above: Appointment Start: 03-19-2023 Non-patient / Non-visit Dr. Silvio Benitez Work Phone: [facility] Work Phone: Start: 03-18-2023 Non-patient / Non-visit Dr. Silvio Benitez Work Phone: [facility] Start: 03-18-2023 Non-patient / Non-visit Dr. Silvio Benitez Work Phone: [facility] Work Phone: Start: 03-17-2023 Non-patient / Non-visit Dr. Silvio Benitez Work Phone: [facility] Work Phone: Start: 03-17-2023 End: 03-19-2023 Evaluation and management of inpatient Dr. Tyler Benitez Work Phone: [facility]-Medical Surgical 3 Work Phone: Start: 03-12-2023 End: 03-12-[address] Tyler Benitez Work Phone: [facility] Work Phone: Start: 03-08-2023 End: 03-08-2023 ambulatory Prerna Lemon PT [facility] Comment on above: Lymphedema of both l ower extremities (Primary Dx) Start: 03-01-2023 End: 03-01-2023 ambulatory Prerna Lemon PT [facility] Comment on above: Lymphedema of both l ower extremities (Primary Dx) Start: 02-27-2023 End: 02-27-2023 ambulatory Prerna Lemon PT [facility] Comment on above: Lymphedema of both l ower extremities (Primary Dx) Start: 02-26-2023 End: 02-26-2023 Emergency department patient visit Dr. Tyler Benitez Work Phone: [facility]-Emergency Department Work Phone: Start: 02-22-2023 End: 02-22-2023 ambulatory Prerna Lemon PT [facility] Comment on above: Lymphedema of both l ower extremities (Primary Dx) Start: 02-20-2023 End: 02-20-2023 ambulatory Prerna Lemon PT [facility] Comment on above: Lymphedema of both l ower extremities (Primary Dx) Start: 02-08-2023 End: 02-08-2023 ambulatory Prerna Lemon PT [facility] Comment on above: Lymphedema of both l ower extremities (Primary Dx) Start: 01-25-2023 End: 01-25-2023 ambulatory Prerna Lemon PT [facility] Comment on above: Lymphedema of both l ower extremities (Primary Dx) Start: 01-15-2023 End: 01-15-2023 Emergency department patient visit Dr. Tyler Benitez Work Phone: [facility]-Emergency Department Work Phone: Start: 01-04-2023 End: 01-04-2023 ambulatory Prerna Lemon PT [facility] Comment on above: Lymphedema of both l ower extremities (Primary Dx) Start: 01-03-2023 Telephone encounter Judith Walton ins PA-C Work Phone: [facility] Comment on above: Appointment Start: 01-02-2023 Telephone encounter Judith Walton ins PA-C Work Phone: Plastic Surgery Comment on above: Appointment Start: 12-31-2022 Telephone encounter Jesse Grayson Work Phone: Plastic Surgery Comment on above: Patient Question (Mi ssed call) Appointment Start: 12-21-2022 End: 12-21-[address] Tyler Benitez Work Phone: [facility] Work Phone: Start: 12-21-2022 End: 12-21-[address] Tyler Benitez Work Phone: [facility] Start: 12-21-2022 End: 12-21-2022 ambulatory Prerna Lemon PT [facility] Comment on above: Lymphedema of both l ower extremities (Primary Dx) Start: 12-14-2022 End: 12-14-2022 ambulatory Prerna Lemon PT [facility] Comment on above: Lymphedema of both l ower extremities (Primary Dx) Start: 12-07-2022 End: 12-07-2022 ambulatory Prerna Lemon PT [facility] Comment on above: Lymphedema of both l ower extremities (Primary Dx) Start: 12-06-2022 ambulatory Mohini vasquez LPN [facility] Start: 12-06-2022 Patient encounter procedure Mohini Davila LPN [employer] Comment on above: Referral Information Start: 11-27-2022 End: 11-27-[address] Tyler Benitez Work Phone: [facility] Start: 11-23-2022 End: 11-23-2022 ambulatory Prerna Lemon PT [facility] Comment on above: Lymphedema of both l ower extremities (Primary Dx) Start: 11-20-2022 End: 11-20-2022 ambulatory [facility] Work Phone: Start: 11-20-2022 End: 11-20-2022 Patient encounter procedure [facility] Start: 11-09-2022 End: 11-09-2022 ambulatory Prerna Lemon PT [facility] Comment on above: Lymphedema of both l ower extremities (Primary Dx) Start: 11-02-2022 End: 11-02-2022 ambulatory Prerna Lemon PT [facility] Comment on above: Lymphedema of both l ower extremities (Primary Dx) Start: 10-22-2022 End: 10-22-2022 ambulatory Prerna Lemon PT [facility] Comment on above: Lymphedema of both l ower extremities (Primary Dx) Start: 10-12-2022 End: 10-12-2022 ambulatory Prerna Lemon PT [facility] Comment on above: Lymphedema of both l ower extremities (Primary Dx) Start: 10-05-2022 End: 10-05-2022 ambulatory Prerna Lemon PT [facility] Comment on above: Lymphedema of both l ower extremities (Primary Dx) Start: 09-12-2022 Telephone encounter Radha Boogie haines Work Phone: Podiatry Comment on above: Results Start: 09-11-2022 End: 09-11-2022 Subsequent hospital visit by physician [facility] Ernesto Rell Work Phone: Radiology Comment on above: Plantar fasciitis [M 72.2] Start: 09-11-2022 End: 09-11-2022 Patient encounter procedure Radha Wood Work Phone: Podiatry Comment on above: Onychomycosis (Prima ry Dx); Pain in toe of left foot; Pain in toe of right foot; Plantar fasciitis Start: 09-10-2022 End: 09-10-2022 ambulatory Prerna Lemon PT [facility] Comment on above: Lymphedema of both l ower extremities (Primary Dx) Start: 08-10-2022 End: 08-10-2022 ambulatory Prerna Lemon PT [facility] Comment on above: Lymphedema of both l ower extremities (Primary Dx) Start: 08-03-2022 End: 08-03-2022 ambulatory Prerna Lemon PT [facility] Comment on above: Lymphedema of both l ower extremities (Primary Dx) Start: 07-27-2022 End: 07-27-2022 ambulatory Prerna Lemon PT [facility] Comment on above: Lymphedema of both l ower extremities (Primary Dx) Start: 07-13-2022 End: 07-13-2022 ambulatory Prerna Lemon PT [facility] Comment on above: Lymphedema of both l ower extremities (Primary Dx) Start: 07-09-2022 End: 07-09-[address] Tyler Benitez Work Phone: [facility] Work Phone: Start: 07-09-2022 End: 07-09-[address] Tyler Benitez Work Phone: [facility] Start: 07-06-2022 End: 07-06-2022 ambulatory Prerna Lemon PT [facility] Comment on above: Lymphedema of both l ower extremities (Primary Dx) Start: 06-26-[address] Tyler Benitez Work Phone: [facility] Start: 06-15-2022 End: 06-15-2022 ambulatory Prerna Lemon PT [facility] Comment on above: Lymphedema of both l ower extremities (Primary Dx) Start: 06-08-2022 End: 06-08-2022 ambulatory Prerna Lemon PT [facility] Comment on above: Lymphedema of both l ower extremities (Primary Dx) Start: 06-08-2022 End: 06-08-[address] Tyler Benitez Work Phone: [facility] Work Phone: Start: 06-08-2022 End: 06-08-[address] Tyler Benitez Work Phone: [facility] Start: 06-01-2022 End: 06-01-2022 ambulatory Prerna Lemon PT [facility] Comment on above: Lymphedema of both l ower extremities (Primary Dx) Start: 05-25-2022 End: 05-25-2022 ambulatory Prerna Lemon PT [facility] Comment on above: Lymphedema of both l ower extremities (Primary Dx) Start: 05-20-2022 End: 05-20-2022 Emergency department patient visit Dr. Tyler Benitez Work Phone: [facility]Emer[facility] Department Start: 05-18-2022 End: 05-18-2022 ambulatory Prerna Lemon PT [facility] Comment on above: Lymphedema of both l ower extremities (Primary Dx) Start: 05-18-2022 End: 05-18-[address] Tyler Benitez Work Phone: [facility] Start: 05-16-2022 End: 05-16-[address] Tyler Benitez Work Phone: [facility] Start: 05-11-2022 End: 05-11-2022 ambulatory Prerna Lemon PT [facility] Comment on above: Lymphedema of both l ower extremities (Primary Dx) Start: 05-11-2022 End: 05-11-[address] Tyler Benitez Work Phone: [facility] Start: 05-08-2022 End: 05-08-2022 Emergency department patient visit Dr. Tyler Benitez Work Phone: [facility] Start: 05-04-2022 End: 05-04-2022 ambulatory Prerna Lemon PT [facility] Comment on above: Lymphedema of both l ower extremities (Primary Dx) Start: 05-04-2022 End: 05-04-[address] Tyler Benitez Work Phone: [facility] Start: 04-27-2022 End: 04-27-2022 ambulatory Prerna Lemon PT [facility] Comment on above: Lymphedema of both l ower extremities (Primary Dx) Start: 04-20-2022 End: 04-20-2022 ambulatory Prerna Lemon PT [facility] Comment on above: Lymphedema of both l ower extremities (Primary Dx) Start: 04-16-2022 End: 04-16-[address] Tyler Benitez Work Phone: [facility] Start: 04-13-2022 End: 04-13-2022 ambulatory Prerna Lemon PT [facility] Comment on above: Lymphedema of both l ower extremities (Primary Dx) Start: 04-06-2022 End: 04-06-2022 ambulatory Prerna Lemon PT [facility] Comment on above: Lymphedema of both l ower extremities (Primary Dx) Start: 03-30-2022 End: 03-30-2022 ambulatory Prerna Lemon PT [facility] Comment on above: Lymphedema of both l ower extremities (Primary Dx) Start: 03-23-2022 End: 03-23-2022 ambulatory Prerna Lemon PT [facility] Comment on above: Lymphedema of both l ower extremities (Primary Dx) Start: 03-19-2022 End: 03-19-2022 ambulatory Prerna Lemon PT [facility] Comment on above: Lymphedema of both l ower extremities (Primary Dx) Start: 03-19-2022 End: 03-19-[address] Tyler Benitez Work Phone: [facility] Start: 03-07-2022 End: 03-07-2022 ambulatory Prerna Lemon PT [facility] Comment on above: Lymphedema of both l ower extremities (Primary Dx) Start: 02-28-2022 End: 02-28-[address] Tyler Benitez Work Phone: [facility] Start: 02-23-2022 End: 02-23-2022 ambulatory Prerna Lemon PT [facility] Comment on above: Lymphedema of both l ower extremities (Primary Dx) Start: 02-16-2022 End: 02-16-2022 ambulatory Prerna Lemon PT [facility] Comment on above: Lymphedema of both l ower extremities (Primary Dx) Start: 02-02-2022 End: 02-02-2022 ambulatory Prerna Lemon PT [facility] Comment on above: Lymphedema of both l ower extremities (Primary Dx) Start: 01-18-2022 End: 01-18-2022 Emergency department patient visit Dr. Tyler Benitez Work Phone: [facility] Start: 01-16-2022 End: 01-16-2022 Emergency department patient visit Dr. Tyler Benitez Work Phone: [facility] Start: 01-05-2022 End: 01-05-2022 ambulatory Prerna Lemon PT Work Phone: [facility] Comment on above: Lymphedema of both l ower extremities (Primary Dx) Start: 12-29-2021 End: 12-29-2021 ambulatory Prerna Lemon PT Work Phone: [facility] Comment on above: Lymphedema of both l ower extremities (Primary Dx) Start: 12-25-2021 End: 12-25-[address] Tyler Benitez Work Phone: [facility] Start: 12-22-2021 End: 12-22-2021 ambulatory Prerna Lemon PT Work Phone: [facility] Comment on above: Lymphedema of both l ower extremities (Primary Dx) Start: 12-06-2021 End: 12-06-2021 Patient encounter procedure Radha Wood Work Phone: Podiatry Comment on above: Onychomycosis (Prima ry Dx); Pain in toe of left foot; Pain in toe of right foot; Hyperkeratosis Start: 12-04-2021 End: 12-04-2021 ambulatory Prerna Lemon PT Work Phone: [facility] Comment on above: Lymphedema of both l ower extremities (Primary Dx) Start: 11-24-2021 End: 11-24-[address] Tyler Benitez Work Phone: [facility] Start: 11-24-2021 End: 11-24-[address] Tyler Benitez Work Phone: [facility] Start: 11-08-2021 End: 11-08-[address] Tyler Benitez Work Phone: [facility] Start: 10-24-2021 Non-patient / Non-visit Dr. Silvio Benitez Work Phone: [facility] Start: 10-23-2021 Non-patient / Non-visit Dr. Silvio Benitez Work Phone: [facility] Start: 10-23-2021 Non-patient / Non-visit Dr. Silvio Benitez Work Phone: [facility] Start: 10-23-2021 Non-patient / Non-visit Dr. Silvio Benitez Work Phone: [facility] Start: 10-23-2021 Non-patient / Non-visit Dr. Silvio Benitez Work Phone: [facility] Start: 10-23-2021 Non-patient / Non-visit Dr. Silvio Benitez Work Phone: [facility] Start: 10-22-2021 Non-patient / Non-visit Dr. Silvio Benitez Work Phone: [facility] Start: 10-22-2021 End: 10-24-2021 Evaluation and management of inpatient Dr. Tyler Benitez Work Phone: [facility] Start: 01-17-2018 Patient encounter procedure MIKE HEAD Facility:[facility] Start: 01-08-2018 Patient encounter procedure MIKE HEAD Facility:[facility] Start: 09-17-2017 Patient encounter procedure NATA COTO Facility:[facility] Start: 08-22-2017 Patient encounter procedure GEO REILLY Facility:[facility] Start: 08-05-2017 Patient encounter procedure ODALIS GUALLPA Facility:[facility] Start: 07-02-2017 End: 07-02-2017 Ambulatory UNKNOWN PROVIDER Facility:[facility] Procedures Date Procedure Procedure Detail Performing [...] Detail Author Start: 07-02-2027 Urine microalbumin profile [facility] Start: 04-01-2026 DIABETES SCREEN DIABETES SCREEN [facility] Start: 04-01-2026 Diabetes Screening Diabetes Screenin g [facility] Start: 03-29-2026 DIABETES SCREEN DIABETES SCREEN [facility] Start: 06-18-2025 End: 06-18-2025 Patient encounter procedure 06/18/2025 2:40 PM EDT Office Visit Podiatry [address] [place] [address] Radha Wood [address] [place], [place] [id number] 3 month follow up Podiatry Comment on above: 3 month follow up Start: 05-27-2025 End: 05-27-2025 ambulatory 05/27/2025 11:30 AM EDT OT/PT/Speech Visit [facility] [address] [place] [address] Morris Lo, PT [address] [place] [address] Pes planus of both feet [M21.41, M21.42] [facility] Comment on above: Pes planus of both f eet [M21.41, M21.42] Start: 04-26-2025 Influenza vaccination [facility] Start: 03-17-2025 End: 03-17-2025 ambulatory [facility] Comment on above: I89.0 (ICD-10-CM) - Lymphedema of both lower extremities 15 visits thru 06/17 Start: 03-11-2025 End: 03-11-2025 Patient encounter procedure 03/11/2025 2:00 PM EDT Office Visit Podiatry [address] [place] [address] Radha Wood [address] [place] [address] follow up nail care Podiatry Comment on above: follow up nail care Start: 03-02-2025 End: 03-02-2025 [facility] Start: 12-18-2024 End: 12-18-2024 ambulatory 12/18/2024 2:45 PM EDT OT/PT/Speech Visit [facility] [address] [place], [place] [phone] Prerna Bonds PT I89.0 (ICD-10-CM) - Lymphedema of both lower extremities [facility] Comment on above: I89.0 (ICD-10-CM) - Lymphedema of both lower extremities Start: 12-11-2024 End: 12-11-2024 ambulatory 12/11/2024 2:45 PM EDT OT/PT/Speech Visit [facility] [address] [place] [address] Lemon, Prerna, PT I89.0 (ICD-10-CM) - Lymphedema of both lower extremities [facility] Comment on above: I89.0 (ICD-10-CM) - Lymphedema of both lower extremities Start: 12-04-2024 End: 12-04-2024 ambulatory 12/04/2024 2:45 PM EDT OT/PT/Speech Visit [facility] [address] [place] [address] Lemon, Prerna, PT I89.0 (ICD-10-CM) - Lymphedema of both lower extremities [facility] Comment on above: I89.0 (ICD-10-CM) - Lymphedema of both lower extremities Start: 11-27-2024 End: 11-27-2024 ambulatory 11/27/2024 2:45 PM EDT OT/PT/Speech Visit [facility] [address] [place] [address] Lemon, Prerna, PT I89.0 (ICD-10-CM) - Lymphedema of both lower extremities [facility] Comment on above: I89.0 (ICD-10-CM) - Lymphedema of both lower extremities Start: 11-24-2024 End: 11-24-2024 Patient encounter procedure Podiatry Comment on above: follow up nail care Start: 11-20-2024 End: 11-20-2024 ambulatory 11/20/2024 2:45 PM EDT OT/PT/Speech Visit [facility] [address] [place] [address] Lemon, Prerna, PT Lymphedema [facility] Comment on above: Lymphedema Start: 11-13-2024 End: 11-13-2024 ambulatory 11/13/2024 2:45 PM EDT OT/PT/Speech Visit [facility] [address] [place] [address] Lemon, Prerna, PT Lymphedema [facility] Comment on above: Lymphedema Start: 11-10-[address] [facility] Start: 11-10-[address] [facility] Start: 11-10-2024 Bacteria identified in Blood by Culture Blood Culture [facility] Start: 09-25-2024 End: 09-25-2024 ambulatory 09/25/2024 2:45 PM EST OT/PT/Speech Visit [facility] [address] [place] [address] Lemon, Prerna, PT 89.0 (ICD-10-CM) - Lymphedema, not elsewhere classified [facility] Comment on above: 89.0 (ICD-10-CM) - L ymphedema, not elsewhere classified Start: 09-18-2024 End: 09-18-2024 ambulatory 09/18/2024 2:45 PM EST OT/PT/Speech Visit [facility] [address] [place] [address] Lemon, Prerna, PT 89.0 (ICD-10-CM) - Lymphedema, not elsewhere classified [facility] Comment on above: 89.0 (ICD-10-CM) - L ymphedema, not elsewhere classified Start: 09-11-2024 End: 09-11-2024 ambulatory 09/11/2024 2:45 PM EST OT/PT/Speech Visit [facility] [address] [place] [address] Lemon, Prerna, PT 89.0 (ICD-10-CM) - Lymphedema, not elsewhere classified [facility] Comment on above: 89.0 (ICD-10-CM) - L ymphedema, not elsewhere classified Start: 09-04-2024 End: 09-04-2024 ambulatory 09/04/2024 2:45 PM EST OT/PT/Speech Visit [facility] [address] [place] [address] Lemon, Prerna, PT 89.0 (ICD-10-CM) - Lymphedema, not elsewhere classified [facility] Comment on above: 89.0 (ICD-10-CM) - L ymphedema, not elsewhere classified Start: 09-04-2024 End: 09-04-2024 Documentation procedure 09/04/2024 Plan of Care Documentation [facility] [address] [place] [address] [facility] Start: 08-28-2024 Patient referral [facility] Work Phone: Start: 08-26-2024 Advance Directive Discussion Advance Directive Discussion [facility] Start: 08-26-2024 Medicare Advantage A nnual Wellness Visit Medicare Advantage Annual Wellness Visit [facility] Start: 08-24-2024 End: 08-24-2024 ambulatory 08/24/2024 4:00 PM EST OT/PT/Speech Visit [facility] [address] [place] [address] Lemon, Prerna, PT 89.0 (ICD-10-CM) - Lymphedema, not elsewhere classified [facility] Comment on above: 89.0 (ICD-10-CM) - L ymphedema, not elsewhere classified Start: 08-14-2024 End: 08-14-2024 ambulatory 08/14/2024 1:00 PM EST OT/PT/Speech Visit [facility] [address] [place] [address] Lemon, Prerna, PT 89.0 (ICD-10-CM) - Lymphedema, not elsewhere classified [facility] Comment on above: 89.0 (ICD-10-CM) - L ymphedema, not elsewhere classified Start: 08-03-2024 End: 08-03-2024 Patient encounter procedure Podiatry Comment on above: follow up callus Start: 07-17-2024 End: 07-17-2024 ambulatory 07/17/2024 2:45 PM EST OT/PT/Speech Visit [facility] [address] [place] [address] Lemon, Prerna, PT 89.0 (ICD-10-CM) - Lymphedema, not elsewhere classified [facility] Comment on above: 89.0 (ICD-10-CM) - L ymphedema, not elsewhere classified Start: 06-24-2024 End: 06-24-2024 ambulatory [facility] Comment on above: I89.0 (ICD-10-CM) - Lymphedema, not elsewhere classified Start: 06-19-2024 End: 06-19-2024 ambulatory 06/19/2024 2:45 PM EDT OT/PT/Speech Visit [facility] [address] [place] [address] Lemon, Prerna, PT I89.0 (ICD-10-CM) - Lymphedema, not elsewhere classified [facility] Comment on above: I89.0 (ICD-10-CM) - Lymphedema, not elsewhere classified Start: 05-29-2024 End: 05-29-2024 ambulatory 05/29/2024 2:45 PM EDT OT/PT/Speech Visit [facility] [address] [place] [address] Lemon, Prerna, PT I89.0 (ICD-10-CM) - Lymphedema, not elsewhere classified [facility] Comment on above: I89.0 (ICD-10-CM) - Lymphedema, not elsewhere classified Start: 05-22-2024 End: 05-22-2024 ambulatory 05/22/2024 2:45 PM EDT OT/PT/Speech Visit [facility] [address] [place] [address] Lemon, Prerna, PT I89.0 (ICD-10-CM) - Lymphedema, not elsewhere classified [facility] Comment on above: I89.0 (ICD-10-CM) - Lymphedema, not elsewhere classified Start: 05-15-2024 End: 05-15-2024 ambulatory 05/15/2024 2:45 PM EDT OT/PT/Speech Visit [facility] [address] [place] [address] Lemon, Prerna, PT I89.0 (ICD-10-CM) - Lymphedema, not elsewhere classified [facility] Comment on above: I89.0 (ICD-10-CM) - Lymphedema, not elsewhere classified Start: 05-13-2024 End: 05-13-2024 ambulatory 05/13/2024 3:30 PM EDT OT/PT/Speech Visit [facility] [address] [place] [address] Lemon, Prerna, PT I89.0 (ICD-10-CM) - Lymphedema, not elsewhere classified [facility] Comment on above: I89.0 (ICD-10-CM) - Lymphedema, not elsewhere classified Start: 05-08-2024 End: 05-08-2024 ambulatory 05/08/2024 2:45 PM EDT OT/PT/Speech Visit [facility] [address] [place] [address] Lemon, Prerna, PT I89.0 (ICD-10-CM) - Lymphedema, not elsewhere classified [facility] Comment on above: I89.0 (ICD-10-CM) - Lymphedema, not elsewhere classified Start: 05-01-2024 End: 05-01-2024 ambulatory 05/01/2024 1:45 PM EDT OT/PT/Speech Visit [facility] [address] [place] [address] Lemon, Prerna, PT I89.0 (ICD-10-CM) - Lymphedema, not elsewhere classified [facility] Comment on above: I89.0 (ICD-10-CM) - Lymphedema, not elsewhere classified Start: 04-26-2024 Covid-19 Vaccine () Covid-19 Vaccine () [facility] Start: 04-26-2024 Covid-19 Vaccine (4 - 2024-25 season) Covid-19 Vaccine ( season) [facility] Start: 04-26-2024 Influenza vaccination [facility] Start: 04-24-2024 End: 04-24-2024 ambulatory 04/24/2024 2:45 PM EDT OT/PT/Speech Visit [facility] [address] [place] [address] Lemon, Prerna, PT I89.0 (ICD-10-CM) - Lymphedema, not elsewhere classified [facility] Comment on above: I89.0 (ICD-10-CM) - Lymphedema, not elsewhere classified Start: 04-17-2024 End: 04-17-2024 ambulatory 04/17/2024 1:00 PM EDT OT/PT/Speech Visit [facility] [address] [place] [address] Lemon, Prerna, PT I89.0 (ICD-10-CM) - Lymphedema, not elsewhere classified [facility] Comment on above: I89.0 (ICD-10-CM) - Lymphedema, not elsewhere classified Start: 04-10-2024 End: 04-10-2024 Patient encounter procedure 04/10/2024 3:20 PM EDT Office Visit Podiatry [address] [place] [address] Radha Wood [address] [place] [address] month follow up nail care Podiatry Comment on above: month follow up nail care Start: 04-10-2024 End: 04-10-2024 ambulatory 04/10/2024 1:00 PM EDT OT/PT/Speech Visit [facility] [address] [place] [address] Lemon, Prerna, PT I89.0 (ICD-10-CM) - Lymphedema, not elsewhere classified [facility] Comment on above: I89.0 (ICD-10-CM) - Lymphedema, not elsewhere classified Start: 04-03-2024 End: 04-03-2024 ambulatory 04/03/2024 1:00 PM EDT OT/PT/Speech Visit [facility] [address] [place] [address] Lemon, Prerna, PT I89.0 (ICD-10-CM) - Lymphedema, not elsewhere classified [facility] Comment on above: I89.0 (ICD-10-CM) - Lymphedema, not elsewhere classified Start: 03-27-2024 End: 03-27-2024 ambulatory 03/27/2024 2:45 PM EDT OT/PT/Speech Visit [facility] [address] [place] [address] Lemon, Prerna, PT I89.0 - Lymphedema [facility] Comment on above: I89.0 - Lymphedema Start: 03-13-2024 End: 03-13-2024 ambulatory 03/13/2024 2:45 PM EDT OT/PT/Speech Visit [facility] [address] [place] [address] Lemon, Prerna, PT I89.0 (ICD-10-CM) - Lymphedema, not elsewhere classified [facility] Comment on above: I89.0 (ICD-10-CM) - Lymphedema, not elsewhere classified Start: 03-06-2024 End: 03-06-2024 ambulatory 03/06/2024 2:45 PM EDT OT/PT/Speech Visit [facility] [address] [place] [address] Lemon, Prerna, PT I89.0 (ICD-10-CM) - Lymphedema, not elsewhere classified [facility] Comment on above: I89.0 (ICD-10-CM) - Lymphedema, not elsewhere classified Start: 03-04-2024 End: 03-04-2024 ambulatory 03/04/2024 2:00 PM EDT OT/PT/Speech Visit [facility] [address] [place] [address] Lemon, Prerna, PT I89.0 (ICD-10-CM) - Lymphedema, not elsewhere classified [facility] Comment on above: I89.0 (ICD-10-CM) - Lymphedema, not elsewhere classified Start: 02-14-2024 Documentation procedure 2023 Plan of Care Documentation [facility] [address] [place] [address] [facility] Start: 02-14-2024 End: 02-14-2024 ambulatory 02/14/2024 1:45 PM EDT OT/PT/Speech Visit [facility] [address] [place] [address] Lemon, Prerna, PT I89.0 (ICD-10-CM) - Lymphedema, not elsewhere classified [facility] Comment on above: I89.0 (ICD-10-CM) - Lymphedema, not elsewhere classified Start: 02-07-2024 End: 02-07-2024 ambulatory 02/07/2024 1:00 PM EDT OT/PT/Speech Visit [facility] [address] [place] [address] Lemon, Prerna, PT I89.0 (ICD-10-CM) - Lymphedema of both lower extremities [facility] Comment on above: I89.0 (ICD-10-CM) - Lymphedema of both lower extremities Start: 01-24-2024 End: 01-24-2024 ambulatory 01/24/2024 11:00 AM EDT OT/PT/Speech Visit [facility] [address] [place] [address] Lemon, Prerna, PT I89.0 (ICD-10-CM) - Lymphedema, not elsewhere classified [facility] Comment on above: I89.0 (ICD-10-CM) - Lymphedema, not elsewhere classified Start: 01-17-2024 End: 01-17-2024 ambulatory 01/17/2024 1:45 PM EDT OT/PT/Speech Visit [facility] [address] [place] [address] Prerna Bonds, PT I89.0 (ICD-10-CM) - Lymphedema, not elsewhere classified [facility] Comment on above: I89.0 (ICD-10-CM) - Lymphedema, not elsewhere classified Start: 01-03-2024 End: 01-03-2024 Patient encounter procedure 01/03/2024 3:40 PM EDT Office Visit Podiatry [address] [place], [place] [phone] Radha Wood [address] [place] [address] nail care Podiatry Comment on above: nail care Start: 08-26-2023 Advance Directive Discussion Advance Directive Discussion [facility] Start: 08-26-2023 Behavioral Health Screening Behavioral Health Screening [facility] Start: 08-26-2023 Depression Assessment Depression Ass essment [facility] Start: 05-24-2023 Emergency department visit limited/minor prob EMR DPT VST MAYX REQ PHY/QHP [facility] Start: 04-26-2023 Covid-19 Vaccine ( season) Covid-19 Vaccine ( season) [facility] Start: 04-26-2023 Covid-19 Vaccine ( season) Covid-19 Vaccine ( season) [facility] Start: 04-26-2023 Influenza vaccination C [facility] Start: 04-19-2023 Patient discharge [facility] Start: 04-15-2023 Following clinical pathway protocol [facility] Start: 04-15-2023 Ambulation without limitation [facility] Start: 04-15-2023 Assessment of risk o f venous thromboembolism [facility] Start: 04-15-2023 Consultation for treatment [facility] Start: 04-15-2023 Incentive spirometry [facility] Start: 04-15-2023 Insertion of cathete r into peripheral vein [facility] Start: 04-15-2023 Measuring intake and output [facility] Start: 04-15-2023 Oxygen therapy [facility] Start: 04-15-2023 Providing care accor ding to standard [facility] [facility] Start: 04-15-2023 Referral to occupati onal therapist [facility] Start: 04-15-2023 Referral to service [facility] Start: 04-15-[address] [facility] Start: 04-15-2023 Admission procedure [facility] Start: 04-15-2023 Verification routine [facility] Start: 04-15-2023 Referral to service [facility] Start: 04-15-[address] [facility] Start: 04-04-2023 Referral to service [facility] Start: 03-25-2023 Referral to service [facility] Start: 03-19-2023 Patient discharge [facility] Start: 03-17-2023 Consultation for treatment [facility] Start: 03-17-2023 Following clinical pathway protocol [facility] Start: 03-17-2023 Assessment of risk o f venous thromboembolism [facility] Start: 03-17-2023 Insertion of cathete r into peripheral vein [facility] Start: 03-17-2023 Providing care accor roman to [facility] Start: 03-17-2023 Provision of activit y privileges [facility] Start: 03-17-2023 Referral to occupati onal therapist [facility] Start: 03-17-2023 Referral to service [facility] Start: 03-17-[address] [facility] Start: 03-17-2023 Admission procedure [facility] Start: 03-17-2023 Patient referral to dietitian [facility] Start: 03-12-2023 Patient referral [facility] Work Phone: Start: 02-26-[address] [facility] Start: 01-15-[address] [facility] Start: 10-03-2022 Screening for osteoporosis Bone Density Screening [facility] Start: 08-26-2022 ADVANCE DIRECTIVE DISCUSSION ADVANCE DIRECTIVE DISCUSSION [facility] Start: 08-26-2022 DEPRESSION ASSESSMENT DEPRESSION ASS ESSMENT [facility] Start: 05-11-2022 Patient referral [facility] Work Phone: Start: 05-08-[address] [facility] Work Phone: Start: 04-26-2022 Influenza vaccination [facility] Start: 02-28-2022 Patient referral [facility] Work Phone: Start: 01-18-[address] [facility] Work Phone: Start: 01-16-[address] [facility] Work Phone: Start: 12-06-2021 COVID-19 VACCINE (4 - Booster for Moderna series) COVID-19 VACCINE (4 - Booster for Moderna series) [facility] Start: 10-02-2021 COVID-19 VACCINE (4 - Booster for Moderna series) COVID-19 VACCINE (4 - Booster for Moderna series) [facility] Start: 10-02-2021 COVID-19 VACCINE (4 - Moderna series) COVID-19 VACCINE (4 - Moderna series) [facility] Start: 08-26-2021 ADVANCE DIRECTIVE DISCUSSION ADVANCE DIRECTIVE DISCUSSION [facility] Start: 08-26-2021 DEPRESSION ASSESSMENT DEPRESSION ASS ESSMENT [facility] Start: 07-11-2020 DIABETES SCREEN DIABETES SCREEN [facility] Start: 02-03-2016 Hepatitis B surface antibody level LDL CHOLESTEROL [facility] Start: 2013 RSV Vaccine (1 - 1-d ose 75+ series) RSV Vaccine (1 - 1-dose 75+ series) [facility] Start: 2003 Pneumococcal Vaccine : 65+ (1 - PCV) Pneumococcal Vaccine: 65+ (1 - PCV) [facility] Start: 2003 PNEUMOCOCCAL: 65+ (1 - PCV) PNEUMOCOCCAL: 65+ (1 - PCV) [facility] Start: 2003 PNEUMOVAX AGE 65 AND OVER WITH 5YR LOOKBACK (#1) PNEUMOVAX AGE 65 AND OVER WITH 5YR LOOKBACK (#1) [facility] Start: 1998 RSV Vaccine (1 - 1-d ose 60+ series) RSV Vaccine (1 - 1-dose 60+ series) [facility] Start: 1988 SHINGRIX VACCINE (1 of 2) MIDDLETON GRIX VACCINE (1 of 2) [facility] Start: 1957 SHINGRIX VACCINE (1 of 2) MIDDLETON GRIX VACCINE (1 of 2) [facility] Start: 1957 Urine microalbumin profile [facility] Start: 1956 Anxiety Screening Anxiety Screening [facility] Start: 1956 Depression Screening Depression Scre ening [facility] Start: 1944 PNEUMOCOCCAL: 65+ (1 - PCV) PNEUMOCOCCAL: 65+ (1 - PCV) [facility] Bacteria identified in Wound by Culture ABSCESS AND WOUND CULTURE WITH GRAM STAIN Microbiology Routine Ingrowing toenail of left foot 07/05/2023 4:34 PM EST [facility] Work Phone: Patient Education [facility] Work Phone: Patient referral [facility] Work Phone: End: 10-11-2023 XR FOOT GENERAL 3V AP/LAT/OBL LEFT XR FOOT GENERAL 3V AP/LAT/OBL LEFT Radiology Routine Plantar fasciitis 1 Occurrences starting 09/11/2022 until 10/11/2023 [facility] Work Phone: Comment on above: 1 Occurrences starti ng 09/11/2022 until 10/11/2023 XR FOOT GENERAL 3V AP/LAT/OBL LEFT XR FOOT GENERAL 3V AP/LAT/OBL LEFT Radiology Routine Plantar fasciitis 09/11/2022 3:56 PM EST [facility] Work Phone: End: 05-08-2026 XR Hand - bilateral PA XR HAND/WRIST SURVEY ARTHRITIS 1V PA BILATERAL Radiology Routine Osteoarthritis, generalized 1 Occurrences starting 04/08/2025 until 05/08/2026 [facility] Work Phone: Comment on above: 1 Occurrences starti ng 04/08/2025 until 05/08/2026 End: 08-03-2024 XR TOE AP/LAT/OBL LEFT XR TOE AP/LAT/OBL LEFT Radiology Routine Ingrowing toenail of left foot 1 Occurrences starting 07/05/2023 until 08/03/2024 [facility] Work Phone: Comment on above: 1 Occurrences starti ng 07/05/2023 until 08/03/2024 XR TOE AP/LAT/OBL LEFT XR TOE AP /LAT/OBL LEFT Radiology Routine Ingrowing toenail of left foot 07/17/2023 3:34 PM EST [facility] Work Phone: [facility] Immunizations Immunization Date Immunization Notes Care Provider Fa [facility] 2022 influenza virus vaccine, unspecified formulation Prerna Lemon PT [facility] 12-02-2020 Covarminda (Moderna) Dr. Tyler Putnam Work Phone: [facility] 11-01-2020 Khalida (Moderna) Dr. Tyler Putnam Work Phone: [facility] 07-02-2017 tetanus toxoid, redu judy diphtheria toxoid, and acellular pertussis vaccine, adsorbed Dr. Tyler Benitez Work Phone: [facility] Payers Date Payer Category Payer Self-pay [id number] [phone] [id number] 2019 Medicare HUMANA MEDICARE HUMANA MEDICARE PPO [id number] 2019-Present [phone] [place] [address] PPO [id number] 2019 Medicare HUMANA MEDICARE HUMANA MEDICARE PPO [id number] 2019-Present [phone] [place] [address] PPO [id number] 2019 Medicare (Managed Care) HUMANA M EDICARE [id number] 2013 Private Health Insurance [id number] 1940 Unknown [id number] .2.278 1940 Unknown [id number] 2.16840.1.556048.3.579 .2.278 1940 Unknown [id number] 2.16840.1.690231.3.579 .2.278 1940 Unknown [id number] 2.16840.1.769976.3.579 .2.278 Unknown [id number] 2.16.840.1.660827.3.579 .2.462 Unknown [id number] 2.16.840.1.692041.3.579 .2.462 Unknown [id number] 2.16.840.1.479922.3.579 .2.462 Unknown [id number] 2.16.840.1.260494.3.579 .2.462 Unknown [id number] 2.16.840.1.351689.3.579 .2.462 Unknown [id number] 2.16.840.1.525079.3.579 .2.462 Unknown [id number] 2.16.840.1.045326.3.579 .2.462 Unknown [id number] 2.16.840.1.114620.3.579 .2.462 Unknown [id number] 2.16.840.1.188284.3.579 .2.462 Unknown [id number] 2.16.840.1.927920.3.579 .2.462 Unknown [id number] 2.16.840.1.854665.3.579 .2.462 Unknown [id number] 2.16.840.1.718314.3.579 .2.462 Unknown [id number] 2.16.840.1.106863.3.579 .2.462 Unknown [id number] 2.16.840.1.179541.3.579 .2.462 Unknown [id number] 2.16.840.1.081997.3.579 .2.462 Unknown [id number] 2.16.840.1.184771.3.579 .2.462 Social History Date Type Detail Facility Start: 11-10-2024 End: 03-02-2025 Tobacco smoking status NHIS Never smoked tobacco [facility] Start: 02-19-2020 End: 03-11-2025 Alcohol intake Current non-drinker of alcohol (finding) [facility] Start: 1940 Sex Assigned At Not on file [facility] Start: 11-26-2021 End: 03-07-2022 Exposure to SARS-CoV-2 (event) Not sure [facility] Start: 11-24-2021 End: 08-29-2023 Tobacco smoking status AKIS Unknown if ever smoked [facility] Start: 11-17-[address] [facility] Start: 11-17-[address] [facility] Start: 12-24-2018 Non-smoker [facility] Start: 1940 Sex Assigned At Female W [facility] Start: 01-30-2022 End: 02-09-2022 Exposure to SARS-CoV-2 (event) Unable to assess [facility] Work Phone: Start: 09-11-2022 End: 12-28-2022 History of Social function [facility] Start: 09-11-2022 End: 12-28-2022 Tobacco use panel [facility] Work Phone: Start: 07-27-2012 National Score (1-10 0), lower number is lower risk 67 [facility] Start: 11-10-2024 Sex Female (finding) [facility] Medical Equipment Procedure Code Equipment Code Equipment Origin al Text Equipment Identifier Dates Nail Tfn-Advance d 10mm 130d Short Gold Green Gannon Ti-15mo 170mm - [id number] Start: 07-04-2017 Screw Tfn-Advanc ed 10.35mm Gold Titanium 90mm Bone Cannulated Sterile - [id number] Start: 07-04-2017 Screw 5mm 4.3mm T25 Full Thread Titanium 36mm Bone Lock Self Tap Blunt Tip - [id number] Start: 07-04-2017 Goals Date Patient Goal Desired Activity /State Functional Status Date Assessment Result Facility 04-19-2023 [facility] Work Phone: 04-01-2023 Are you deaf, or do you have serious difficulty hearing No 04/01/2023 6:20 PM Quirino Barrientos RN No [facility] 04-01-2023 Are you blind, or do you have serious difficulty seeing, even when wearing glasses No 04/01/2023 6:20 PM Quirino Barrientos RN No [facility] 04-01-2023 Do you have serious difficulty walking or climbing stairs No 04/01/2023 6:20 PM Quirino Barrientos RN No [facility] 04-01-2023 Do you have difficul ty dressing or bathing No 04/01/2023 6:20 PM Quirino Barrientos RN No [facility] 04-01-2023 Because of a physica l, mental, or emotional condition, do you have difficulty doing errands alone such as visiting a physician's office or shopping No 04/01/2023 6:20 PM Quirino Barrientos RN No [facility] 03-19-2023 Functional status Ambulates;Riaz r;Bathroom Privilege [facility] Work Phone: 10-24-2021 Functional status Ambulates [facility] Work Phone: Mental Status Date Assessment Result Facility 05-24-2023 Cognitive function Level Of Cons ciousness Awake;Alert;Appropriate;Fol lows Commands [facility] Work Phone: 04-18-2023 Cognitive function Voice/Name [facility] Work Phone: 04-15-2023 Cognitive function Level Of Cons ciousness Awake;Alert;Appropriate;Fol lows Commands [facility] Work Phone: 04-01-2023 Because of a physica l, mental, or emotional condition, do you have serious difficulty concentrating, remembering,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 without angina pectoris Chronic combined systolic and diastolic CHF (congestive heart failure) Essential hypertension Hyperlipemia, mixed Lymphedema Nonrheumatic mitral valve insufficiency History of heart disease History of ITP Chronic renal insufficiency Cellulitis of left leg Leukocytosis Adult failure to thrive At high risk for falls Atherosclerotic heart disease of [place] coronary artery without angina pectoris Essential hypertension Secondary pulmonary arterial hypertension Falls Inability to walk Chief Complaint WEAKNESS 3 M FU CELLULITIS Cellulitis Cellulitis Cellulitis Lower Extremity LEFT FOOT PAIN FAILURE TO THRIVE FAILURE TO THRIVE FAILURE TO THRIVE FAILURE TO THRIVE FAILURE TO THRIVE EDEMA EORDER Reason for Visit Atherosclerotic hear t disease of [place] coronary artery without angina pectoris Chronic combined systolic and diastolic CHF (congestive heart failure) Essential hypertension Hyperlipemia, mixed Lymphedema Nonrheumatic mitral valve insufficiency History of heart disease History of ITP Chronic renal insufficiency Cellulitis of left leg Leukocytosis Adult failure to thrive At high risk for falls Atherosclerotic heart disease of [place] coronary artery without angina pectoris Essential hypertension Secondary pulmonary arterial hypertension Falls Inability to walk Chief Complaint 3 M FU CELLULITIS Cellulitis Cellulitis Cellulitis Lower Extremity LEFT FOOT PAIN FAILURE TO THRIVE FAILURE TO THRIVE FAILURE TO THRIVE FAILURE TO THRIVE FAILURE TO THRIVE EDEMA EORDER Reason for Visit Atherosclerotic hear t disease of [place] coronary artery without angina pectoris Chronic combined systolic and diastolic CHF (congestive heart failure) Essential hypertension Hyperlipemia, mixed Lymphedema Nonrheumatic mitral valve insufficiency History of heart disease History of ITP Chronic renal insufficiency Cellulitis of left leg Leukocytosis Adult failure to thrive At high risk for falls Atherosclerotic heart disease of [place] coronary artery without angina pectoris Essential hypertension [...] [facility] [employer], [facility] [address] [place] [address] Referral ID Status Reason Start Date Expiration Date Visits Requested Visits Authorized [id number] Pending Review PCP Requested Referral Auto-Generate d Referral 03/21/2022 06/19/2022 1 1 Referral ID Status Reason Start Date Expiration Date Visits Requested Visits Authorized [id number] Pending Review PCP Requested Referral Auto-Generate d Referral 11/23/2022 02/21/2023 1 1 Referral ID Status Reason Start Date Expiration Date Visits Requested Visits Authorized [id number] Pending Review PCP Requested Referral Auto-Generate d Referral 04/12/2023 07/11/2023 1 1 Referral ID Status Reason Start Date Expiration Date Visits Requested Visits Authorized [id number] Pending Review PCP Requested Referral Auto-Generate d Referral 01/17/2024 04/16/2024 1 1 Referral ID Status Reason Start Date Expiration Date Visits Requested Visits Authorized [id number] New Request PCP Requested Referral Auto-Generate d Referral 09/25/2024 12/24/2024 1 1 Additional Source Comments INFORMATION SOURCE (unrecogn ized section and content) DATE CREATED AUTHOR 02/18/2018 [facility] DATE CREATED AUTHOR AUTHOR'S ORGANIZ ATION 08/03/2018 [facility] DATE CREATED AUTHOR AUTHOR'S ORGANIZ ATION 01/04/2023 [facility] DATE CREATED AUTHOR AUTHOR'S ORGANIZ ATION 04/14/2023 [facility] DATE CREATED AUTHOR AUTHOR'S ORGANIZ ATION 03/19/2025 [facility] DATE CREATED AUTHOR AUTHOR'S ORGANIZ ATION 04/10/2025 [facility] DATE CREATED AUTHOR AUTHOR'S ORGANIZ ATION 06/16/2025 [facility] Source Comments (unrecognize d section and content) In the event this informatio n is protected by the Federal Confidentiality of Alcohol and Drug Abuse Patient Records regulations: The Federal rules restrict any use of the information to criminally investigate or prosecute any alcohol or drug abuse patient.[facility] the event this information is protected by the Federal Confidentiality of Alcohol and Drug Abuse Patient Records regulations: The Federal rules restrict any use of the information to criminally investigate or prosecute any alcohol or drug abuse patient.[facility] CenterIn the event this information is protected by the Federal Confidentiality of Alcohol and Drug Abuse Patient Records regulations: The Federal rules restrict any use of the information to criminally investigate or prosecute any alcohol or drug abuse patient.[facility] CenterIn the event this information is protected by the Federal Confidentiality of Alcohol and Drug Abuse Patient Records regulations: The Federal rules restrict any use of the information to criminally investigate or prosecute any alcohol or drug abuse patient.[facility] CenterIn the event this information is protected by the Federal Confidentiality of Alcohol and Drug Abuse Patient Records regulations: The Federal rules restrict any use of the information to criminally investigate or prosecute any alcohol or drug abuse patient.[facility] CenterIn the event this information is protected by the Federal Confidentiality of Alcohol and Drug Abuse Patient Records regulations: The Federal rules restrict any use of the information to criminally investigate or prosecute any alcohol or drug abuse patient.[facility] CenterIn the event this information is protected by the Federal Confidentiality of Alcohol and Drug Abuse Patient Records regulations: The Federal rules restrict any use of the information to criminally investigate or prosecute any alcohol or drug abuse patient.[facility] CenterIn the event this information is protected by the Federal Confidentiality of Alcohol and Drug Abuse Patient Records regulations: The Federal rules restrict any use of the information to criminally investigate or prosecute any alcohol or drug abuse patient.[facility] CenterIn the event this information is protected by the Federal Confidentiality of Alcohol and Drug Abuse Patient Records regulations: The Federal rules restrict any use of the information to criminally investigate or prosecute any alcohol or drug abuse patient.[facility] CenterIn the event this information is protected by the Federal Confidentiality of Alcohol and Drug Abuse Patient Records regulations: The Federal rules restrict any use of the information to criminally investigate or prosecute any alcohol or drug abuse patient.[facility] CenterIn the event this information is protected by the Federal Confidentiality of Alcohol and Drug Abuse Patient Records regulations: The Federal rules restrict any use of the information to criminally investigate or prosecute any alcohol or drug abuse patient.[facility] CenterIn the event this information is protected by the Federal Confidentiality of Alcohol and Drug Abuse Patient Records regulations: The Federal rules restrict any use of the information to criminally investigate or prosecute any alcohol or drug abuse patient.[facility] CenterIn the event this information is protected by the Federal Confidentiality of Alcohol and Drug Abuse Patient Records regulations: The Federal rules restrict any use of the information to criminally investigate or prosecute any alcohol or drug abuse patient.[facility] CenterIn the event this information is protected by the Federal Confidentiality of Alcohol and Drug Abuse Patient Records regulations: The Federal rules restrict any use of the information to criminally investigate or prosecute any alcohol or drug abuse patient.[facility] CenterIn the event this information is protected by the Federal Confidentiality of Alcohol and Drug Abuse Patient Records regulations: The Federal rules restrict any use of the information to criminally investigate or prosecute any alcohol or drug abuse patient.[facility] CenterIn the event this information is protected by the Federal Confidentiality of Alcohol and Drug Abuse Patient Records regulations: The Federal rules restrict any use of the information to criminally investigate or prosecute any alcohol or drug abuse patient.[facility] CenterIn the event this information is protected by the Federal Confidentiality of Alcohol and Drug Abuse Patient Records regulations: The Federal rules restrict any use of the information to criminally investigate or prosecute any alcohol or drug abuse patient.[facility] CenterIn the event this information is protected by the Federal Confidentiality of Alcohol and Drug Abuse Patient Records regulations: The Federal rules restrict any use of the information to criminally investigate or prosecute any alcohol or drug abuse patient.[facility] CenterIn the event this information is protected by the Federal Confidentiality of Alcohol and Drug Abuse Patient Records regulations: The Federal rules restrict any use of the information to criminally investigate or prosecute any alcohol or drug abuse patient.[facility] CenterIn the event this information is protected by the Federal Confidentiality of Alcohol and Drug Abuse Patient Records regulations: The Federal rules restrict any use of the information to criminally investigate or prosecute any alcohol or drug abuse patient.[facility] CenterIn the event this information is protected by the Federal Confidentiality of Alcohol and Drug Abuse Patient Records regulations: The Federal rules restrict any use of the information to criminally investigate or prosecute any alcohol or drug abuse patient.[facility] CenterIn the event this information is protected by the Federal Confidentiality of Alcohol and Drug Abuse Patient Records regulations: The Federal rules restrict any use of the information to criminally investigate or prosecute any alcohol or drug abuse patient.[facility] CenterIn the event this information is protected by the Federal Confidentiality of Alcohol and Drug Abuse Patient Records regulations: The Federal rules restrict any use of the information to criminally investigate or prosecute any alcohol or drug abuse patient.[facility] CenterIn the event this information is protected by the Federal Confidentiality of Alcohol and Drug Abuse Patient Records regulations: The Federal rules restrict any use of the information to criminally investigate or prosecute any alcohol or drug abuse patient.[facility] CenterIn the event this information is protected by the Federal Confidentiality of Alcohol and Drug Abuse Patient Records regulations: The Federal rules restrict any use of the information to criminally investigate or prosecute any alcohol or drug abuse patient.[facility] CenterIn the event this information is protected by the Federal Confidentiality of Alcohol and Drug Abuse Patient Records regulations: The Federal rules restrict any use of the information to criminally investigate or prosecute any alcohol or drug abuse patient.[facility] CenterIn the event this information is protected by the Federal Confidentiality of Alcohol and Drug Abuse Patient Records regulations: The Federal rules restrict any use of the information to criminally investigate or prosecute any alcohol or drug abuse patient.[facility] CenterIn the event this information is protected by the Federal Confidentiality of Alcohol and Drug Abuse Patient Records regulations: The Federal rules restrict any use of the information to criminally investigate or prosecute any alcohol or drug abuse patient.[facility] CenterIn the event this information is protected by the Federal Confidentiality of Alcohol and Drug Abuse Patient Records regulations: The Federal rules restrict any use of the information to criminally investigate or prosecute any alcohol or drug abuse patient.[facility] CenterIn the event this information is protected by the Federal Confidentiality of Alcohol and Drug Abuse Patient Records regulations: The Federal rules restrict any use of the information to criminally investigate or prosecute any alcohol or drug abuse patient.[facility] CenterIn the event this information is protected by the Federal Confidentiality of Alcohol and Drug Abuse Patient Records regulations: The Federal rules restrict any use of the information to criminally investigate or prosecute any alcohol or drug abuse patient.[facility] CenterIn the event this information is protected by the Federal Confidentiality of Alcohol and Drug Abuse Patient Records regulations: The Federal rules restrict any use of the information to criminally investigate or prosecute any alcohol or drug abuse patient.[facility] CenterIn the event this information is protected by the Federal Confidentiality of Alcohol and Drug Abuse Patient Records regulations: The Federal rules restrict any use of the information to criminally investigate or prosecute any alcohol or drug abuse patient.[facility] CenterIn the event this information is protected by the Federal Confidentiality of Alcohol and Drug Abuse Patient Records regulations: The Federal rules restrict any use of the information to criminally investigate or prosecute any alcohol or drug abuse patient.[facility] CenterIn the event this information is protected by the Federal Confidentiality of Alcohol and Drug Abuse Patient Records regulations: The Federal rules restrict any use of the information to criminally investigate or prosecute any alcohol or drug abuse patient.[facility] CenterIn the event this information is protected by the Federal Confidentiality of Alcohol and Drug Abuse Patient Records regulations: The Federal rules restrict any use of the information to criminally investigate or prosecute any alcohol or drug abuse patient.[facility] CenterIn the event this information is protected by the Federal Confidentiality of Alcohol and Drug Abuse Patient Records regulations: The Federal rules restrict any use of the information to criminally investigate or prosecute any alcohol or drug abuse patient.[facility] CenterIn the event this information is protected by the Federal Confidentiality of Alcohol and Drug Abuse Patient Records regulations: The Federal rules restrict any use of the information to criminally investigate or prosecute any alcohol or drug abuse patient.[facility] CenterIn the event this information is protected by the Federal Confidentiality of Alcohol and Drug Abuse Patient Records regulations: The Federal rules restrict any use of the information to criminally investigate or prosecute any alcohol or drug abuse patient.[facility] CenterIn the event this information is protected by the Federal Confidentiality of Alcohol and Drug Abuse Patient Records regulations: The Federal rules restrict any use of the information to criminally investigate or prosecute any alcohol or drug abuse patient.[facility] CenterIn the event this information is protected by the Federal Confidentiality of Alcohol and Drug Abuse Patient Records regulations: The Federal rules restrict any use of the information to criminally investigate or prosecute any alcohol or drug abuse patient.[facility] CenterIn the event this information is protected by the Federal Confidentiality of Alcohol and Drug Abuse Patient Records regulations: The Federal rules restrict any use of the information to criminally investigate or prosecute any alcohol or drug abuse patient.[facility] CenterIn the event this information is protected by the Federal Confidentiality of Alcohol and Drug Abuse Patient Records regulations: The Federal rules restrict any use of the information to criminally investigate or prosecute any alcohol or drug abuse patient.[facility] CenterIn the event this information is protected by the Federal Confidentiality of Alcohol and Drug Abuse Patient Records regulations: The Federal rules restrict any use of the information to criminally investigate or prosecute any alcohol or drug abuse patient.[facility] CenterIn the event this information is protected by the Federal Confidentiality of Alcohol and Drug Abuse Patient Records regulations: The Federal rules restrict any use of the information to criminally investigate or prosecute any alcohol or drug abuse patient.[facility] CenterIn the event this information is protected by the Federal Confidentiality of Alcohol and Drug Abuse Patient Records regulations: The Federal rules restrict any use of the information to criminally investigate or prosecute any alcohol or drug abuse patient.[facility] CenterIn the event this information is protected by the Federal Confidentiality of Alcohol and Drug Abuse Patient Records regulations: The Federal rules restrict any use of the information to criminally investigate or prosecute any alcohol or drug abuse patient.[facility] CenterIn the event this information is protected by the Federal Confidentiality of Alcohol and Drug Abuse Patient Records regulations: The Federal rules restrict any use of the information to criminally investigate or prosecute any alcohol or drug abuse patient.[facility] CenterIn the event this information is protected by the Federal Confidentiality of Alcohol and Drug Abuse Patient Records regulations: The Federal rules restrict any use of the information to criminally investigate or prosecute any alcohol or drug abuse patient.[facility] CenterIn the event this information is protected by the Federal Confidentiality of Alcohol and Drug Abuse Patient Records regulations: The Federal rules restrict any use of the information to criminally investigate or prosecute any alcohol or drug abuse patient.[facility] CenterIn the event this information is protected by the Federal Confidentiality of Alcohol and Drug Abuse Patient Records regulations: The Federal rules restrict any use of the information to criminally investigate or prosecute any alcohol or drug abuse patient.[facility] CenterIn the event this information is protected by the Federal Confidentiality of Alcohol and Drug Abuse Patient Records regulations: The Federal rules restrict any use of the information to criminally investigate or prosecute any alcohol or drug abuse patient.[facility] CenterIn the event this information is protected by the Federal Confidentiality of Alcohol and Drug Abuse Patient Records regulations: The Federal rules restrict any use of the information to criminally investigate or prosecute any alcohol or drug abuse patient.[facility] CenterIn the event this information is protected by the Federal Confidentiality of Alcohol and Drug Abuse Patient Records regulations: The Federal rules restrict any use of the information to criminally investigate or prosecute any alcohol or drug abuse patient.[facility] CenterIn the event this information is protected by the Federal Confidentiality of Alcohol and Drug Abuse Patient Records regulations: The Federal rules restrict any use of the information to criminally investigate or prosecute any alcohol or drug abuse patient.[facility] CenterIn the event this information is protected by the Federal Confidentiality of Alcohol and Drug Abuse Patient Records regulations: The Federal rules restrict any use of the information to criminally investigate or prosecute any alcohol or drug abuse patient.[facility] CenterIn the event this information is protected by the Federal Confidentiality of Alcohol and Drug Abuse Patient Records regulations: The Federal rules restrict any use of the information to criminally investigate or prosecute any alcohol or drug abuse patient.[facility] CenterIn the event this information is protected by the Federal Confidentiality of Alcohol and Drug Abuse Patient Records regulations: The Federal rules restrict any use of the information to criminally investigate or prosecute any alcohol or drug abuse patient.[facility] CenterIn the event this information is protected by the Federal Confidentiality of Alcohol and Drug Abuse Patient Records regulations: The Federal rules restrict any use of the information to criminally investigate or prosecute any alcohol or drug abuse patient.[facility] CenterIn the event this information is protected by the Federal Confidentiality of Alcohol and Drug Abuse Patient Records regulations: The Federal rules restrict any use of the information to criminally investigate or prosecute any alcohol or drug abuse patient.[facility] CenterIn the event this information is protected by the Federal Confidentiality of Alcohol and Drug Abuse Patient Records regulations: The Federal rules restrict any use of the information to criminally investigate or prosecute any alcohol or drug abuse patient.[facility] CenterIn the event this information is protected by the Federal Confidentiality of Alcohol and Drug Abuse Patient Records regulations: The Federal rules restrict any use of the information to criminally investigate or prosecute any alcohol or drug abuse patient.[facility] CenterIn the event this information is protected by the Federal Confidentiality of Alcohol and Drug Abuse Patient Records regulations: The Federal rules restrict any use of the information to criminally investigate or prosecute any alcohol or drug abuse patient.[facility] CenterIn the event this information is protected by the Federal Confidentiality of Alcohol and Drug Abuse Patient Records regulations: The Federal rules restrict any use of the information to criminally investigate or prosecute any alcohol or drug abuse patient.[facility] CenterIn the event this information is protected by the Federal Confidentiality of Alcohol and Drug Abuse Patient Records regulations: The Federal rules restrict any use of the information to criminally investigate or prosecute any alcohol or drug abuse patient.[facility] CenterIn the event this information is protected by the Federal Confidentiality of Alcohol and Drug Abuse Patient Records regulations: The Federal rules restrict any use of the information to criminally investigate or prosecute any alcohol or drug abuse patient.[facility] CenterIn the event this information is protected by the Federal Confidentiality of Alcohol and Drug Abuse Patient Records regulations: The Federal rules restrict any use of the information to criminally investigate or prosecute any alcohol or drug abuse patient.[facility] CenterIn the event this information is protected by the Federal Confidentiality of Alcohol and Drug Abuse Patient Records regulations: The Federal rules restrict any use of the information to criminally investigate or prosecute any alcohol or drug abuse patient.[facility] CenterIn the event this information is protected by the Federal Confidentiality of Alcohol and Drug Abuse Patient Records regulations: The Federal rules restrict any use of the information to criminally investigate or prosecute any alcohol or drug abuse patient.[facility] CenterIn the event this information is protected by the Federal Confidentiality of Alcohol and Drug Abuse Patient Records regulations: The Federal rules restrict any use of the information to criminally investigate or prosecute any alcohol or drug abuse patient.[facility] CenterIn the event this information is protected by the Federal Confidentiality of Alcohol and Drug Abuse Patient Records regulations: The Federal rules restrict any use of the information to criminally investigate or prosecute any alcohol or drug abuse patient.[facility] CenterIn the event this information is protected by the Federal Confidentiality of Alcohol and Drug Abuse Patient Records regulations: The Federal rules restrict any use of the information to criminally investigate or prosecute any alcohol or drug abuse patient.[facility] CenterIn the event this information is protected by the Federal Confidentiality of Alcohol and Drug Abuse Patient Records regulations: The Federal rules restrict any use of the information to criminally investigate or prosecute any alcohol or drug abuse patient.[facility] CenterIn the event this information is protected by the Federal Confidentiality of Alcohol and Drug Abuse Patient Records regulations: The Federal rules restrict any use of the information to criminally investigate or prosecute any alcohol or drug abuse patient.[facility] CenterIn the event this information is protected by the Federal Confidentiality of Alcohol and Drug Abuse Patient Records regulations: The Federal rules restrict any use of the information to criminally investigate or prosecute any alcohol or drug abuse patient.[facility] CenterIn the event this information is protected by the Federal Confidentiality of Alcohol and Drug Abuse Patient Records regulations: The Federal rules restrict any use of the information to criminally investigate or prosecute any alcohol or drug abuse patient.[facility] CenterIn the event this information is protected by the Federal Confidentiality of Alcohol and Drug Abuse Patient Records regulations: The Federal rules restrict any use of the information to criminally investigate or prosecute any alcohol or drug abuse patient.[facility] CenterIn the event this information is protected by the Federal Confidentiality of Alcohol and Drug Abuse Patient Records regulations: The Federal rules restrict any use of the information to criminally investigate or prosecute any alcohol or drug abuse patient.[facility] CenterIn the event this information is protected by the Federal Confidentiality of Alcohol and Drug Abuse Patient Records regulations: The Federal rules restrict any use of the information to criminally investigate or prosecute any alcohol or drug abuse patient.[facility] CenterIn the event this information is protected by the Federal Confidentiality of Alcohol and Drug Abuse Patient Records regulations: The Federal rules restrict any use of the information to criminally investigate or prosecute any alcohol or drug abuse patient.[facility] CenterIn the event this information is protected by the Federal Confidentiality of Alcohol and Drug Abuse Patient Records regulations: The Federal rules restrict any use of the information to criminally investigate or prosecute any alcohol or drug abuse patient.[facility] CenterIn the event this information is protected by the Federal Confidentiality of Alcohol and Drug Abuse Patient Records regulations: The Federal rules restrict any use of the information to criminally investigate or prosecute any alcohol or drug abuse patient.[facility] CenterIn the event this information is protected by the Federal Confidentiality of Alcohol and Drug Abuse Patient Records regulations: The Federal rules restrict any use of the information to criminally investigate or prosecute any alcohol or drug abuse patient.[facility] CenterIn the event this information is protected by the Federal Confidentiality of Alcohol and Drug Abuse Patient Records regulations: The Federal rules restrict any use of the information to criminally investigate or prosecute any alcohol or drug abuse patient.[facility] CenterIn the event this information is protected by the Federal Confidentiality of Alcohol and Drug Abuse Patient Records regulations: The Federal rules restrict any use of the information to criminally investigate or prosecute any alcohol or drug abuse patient.[facility] CenterIn the event this information is protected by the Federal Confidentiality of Alcohol and Drug Abuse Patient Records regulations: The Federal rules restrict any use of the information to criminally investigate or prosecute any alcohol or drug abuse patient.[facility] CenterIn the event this information is protected by the Federal Confidentiality of Alcohol and Drug Abuse Patient Records regulations: The Federal rules restrict any use of the information to criminally investigate or prosecute any alcohol or drug abuse patient.[facility] CenterIn the event this information is protected by the Federal Confidentiality of Alcohol and Drug Abuse Patient Records regulations: The Federal rules restrict any use of the information to criminally investigate or prosecute any alcohol or drug abuse patient.[facility] CenterIn the event this information is protected by the Federal Confidentiality of Alcohol and Drug Abuse Patient Records regulations: The Federal rules restrict any use of the information to criminally investigate or prosecute any alcohol or drug abuse patient.[facility] CenterIn the event this information is protected by the Federal Confidentiality of Alcohol and Drug Abuse Patient Records regulations: The Federal rules restrict any use of the information to criminally investigate or prosecute any alcohol or drug abuse patient.[facility] CenterIn the event this information is protected by the Federal Confidentiality of Alcohol and Drug Abuse Patient Records regulations: The Federal rules restrict any use of the information to criminally investigate or prosecute any alcohol or drug abuse patient.[facility] CenterIn the event this information is protected by the Federal Confidentiality of Alcohol and Drug Abuse Patient Records regulations: The Federal rules restrict any use of the information to criminally investigate or prosecute any alcohol or drug abuse patient.[facility] CenterIn the event this information is protected by the Federal Confidentiality of Alcohol and Drug Abuse Patient Records regulations: The Federal rules restrict any use of the information to criminally investigate or prosecute any alcohol or drug abuse patient.[facility] CenterIn the event this information is protected by the Federal Confidentiality of Alcohol and Drug Abuse Patient Records regulations: The Federal rules restrict any use of the information to criminally investigate or prosecute any alcohol or drug abuse patient.[facility] CenterIn the event this information is protected by the Federal Confidentiality of Alcohol and Drug Abuse Patient Records regulations: The Federal rules restrict any use of the information to criminally investigate or prosecute any alcohol or drug abuse patient.[facility] CenterIn the event this information is protected by the Federal Confidentiality of Alcohol and Drug Abuse Patient Records regulations: The Federal rules restrict any use of the information to criminally investigate or prosecute any alcohol or drug abuse patient.[facility] CenterIn the event this information is protected by the Federal Confidentiality of Alcohol and Drug Abuse Patient Records regulations: The Federal rules restrict any use of the information to criminally investigate or prosecute any alcohol or drug abuse patient.[facility] CenterIn the event this information is protected by the Federal Confidentiality of Alcohol and Drug Abuse Patient Records regulations: The Federal rules restrict any use of the information to criminally investigate or prosecute any alcohol or drug abuse patient.[facility] CenterIn the event this information is protected by the Federal Confidentiality of Alcohol and Drug Abuse Patient Records regulations: The Federal rules restrict any use of the information to criminally investigate or prosecute any alcohol or drug abuse patient.[facility] CenterIn the event this information is protected by the Federal Confidentiality of Alcohol and Drug Abuse Patient Records regulations: The Federal rules restrict any use of the information to criminally investigate or prosecute any alcohol or drug abuse patient.[facility] CenterIn the event this information is protected by the Federal Confidentiality of Alcohol and Drug Abuse Patient Records regulations: The Federal rules restrict any use of the information to criminally investigate or prosecute any alcohol or drug abuse patient.[facility] CenterIn the event this information is protected by the Federal Confidentiality of Alcohol and Drug Abuse Patient Records regulations: The Federal rules restrict any use of the information to criminally investigate or prosecute any alcohol or drug abuse patient.[facility] CenterIn the event this information is protected by the Federal Confidentiality of Alcohol and Drug Abuse Patient Records regulations: The Federal rules restrict any use of the information to criminally investigate or prosecute any alcohol or drug abuse patient.[facility] CenterIn the event this information is protected by the Federal Confidentiality of Alcohol and Drug Abuse Patient Records regulations: The Federal rules restrict any use of the information to criminally investigate or prosecute any alcohol or drug abuse patient.[facility] CenterIn the event this information is protected by the Federal Confidentiality of Alcohol and Drug Abuse Patient Records regulations: The Federal rules restrict any use of the information to criminally investigate or prosecute any alcohol or drug abuse patient.[facility] CenterIn the event this information is protected by the Federal Confidentiality of Alcohol and Drug Abuse Patient Records regulations: The Federal rules restrict any use of the information to criminally investigate or prosecute any alcohol or drug abuse patient.[facility] CenterIn the event this information is protected by the Federal Confidentiality of Alcohol and Drug Abuse Patient Records regulations: The Federal rules restrict any use of the information to criminally investigate or prosecute any alcohol or drug abuse patient.[facility] CenterIn the event this information is protected by the Federal Confidentiality of Alcohol and Drug Abuse Patient Records regulations: The Federal rules restrict any use of the information to criminally investigate or prosecute any alcohol or drug abuse patient.[facility] CenterIn the event this information is protected by the Federal Confidentiality of Alcohol and Drug Abuse Patient Records regulations: The Federal rules restrict any use of the information to criminally investigate or prosecute any alcohol or drug abuse patient.[facility] CenterIn the event this information is protected by the Federal Confidentiality of Alcohol and Drug Abuse Patient Records regulations: The Federal rules restrict any use of the information to criminally investigate or prosecute any alcohol or drug abuse patient.[facility] CenterIn the event this information is protected by the Federal Confidentiality of Alcohol and Drug Abuse Patient Records regulations: The Federal rules restrict any use of the information to criminally investigate or prosecute any alcohol or drug abuse patient.[facility] CenterIn the event this information is protected by the Federal Confidentiality of Alcohol and Drug Abuse Patient Records regulations: The Federal rules restrict any use of the information to criminally investigate or prosecute any alcohol or drug abuse patient.[facility] CenterIn the event this information is protected by the Federal Confidentiality of Alcohol and Drug Abuse Patient Records regulations: The Federal rules restrict any use of the information to criminally investigate or prosecute any alcohol or drug abuse patient.[facility] CenterIn the event this information is protected by the Federal Confidentiality of Alcohol and Drug Abuse Patient Records regulations: The Federal rules restrict any use of the information to criminally investigate or prosecute any alcohol or drug abuse patient.[facility] CenterIn the event this information is protected by the Federal Confidentiality of Alcohol and Drug Abuse Patient Records regulations: The Federal rules restrict any use of the information to criminally investigate or prosecute any alcohol or drug abuse patient.[facility] CenterIn the event this information is protected by the Federal Confidentiality of Alcohol and Drug Abuse Patient Records regulations: The Federal rules restrict any use of the information to criminally investigate or prosecute any alcohol or drug abuse patient.[facility] Reason for Visit (unrecogniz ed section and content) Reason Comments PT Progress Note Specialty Diagnoses / Procedures Referred By Contac t Referred To Contact [facility] Diagnoses Unsteady gait when walking Lymphedema of both lower extremities Procedures CONSULT TO PHYSICAL THERAPY PHYSICAL THERAPY EVALUATION HIGH COMPLEX 45 MINS Chhaya Stacy MD [address] [place] [address] [facility] [address] [address] Referral ID Status Reason Start Date Expiration Date Visits Requested Visits Authorized [id number] Authorized Auto-Generat ed Referral 05/15/2023 07/25/2023 10 10 Reason Comments Physical Therapy PT Re-eval Reason Comments Physical Therapy Specialty Diagnoses / Procedures Referred By Contac t Referred To Contact [facility] Diagnoses Lymphedema of both lower extremities Procedures PT REHAB FOLLOW UP ORDER THERAPEUTIC EXERCISES RE, EA 15 MIN. Prerna Bonds PT [facility] [address] [address] Referral ID Status Reason Start Date Expiration Date Visits Requested Visits Authorized [id number] Authorized PCP Requested Referral Auto-Generate d Referral 12/04/2022 03/05/2023 4 4 Specialty Diagnoses / Procedures Referred By Contac t Referred To Contact Physical Therapy / PHYSICAL THERAPY Diagnoses I89.0 (ICD-10-CM) - Lymphedema of both lower extremities Procedures EST RS PT LYMPHEDEMA Jaquan Sanchez MD [address] [place] [id number] Prerna Bonds PT Referral ID Status Reason Start Date Expiration Date V isits Requested Visits Authorized [id number] Authorized 06/20/2022 08/24/2022 8 8 Referral ID Status Reason Start Date Expiration Date Visits Requested Visits Authorized [id number] Authorized PCP Requested Referral Auto-Generate d Referral 03/21/2022 06/21/2022 12 12 Specialty Diagnoses / Procedures Referred By Contac t Referred To Contact Physical Therapy / PHYSICAL THERAPY Diagnoses Lymphedema [I89.0] Procedures EST RS PT LYMPHEDEMA Self Prerna Bonds, PT Referral ID Status Reason Start Date Expiration Date Visits Re quested Visits Authorized [id number] Closed 09/04/2021 08/25/2022 1 1 Specialty Diagnoses / Procedures Referred By Contac t Referred To Contact Physical Therapy / PHYSICAL THERAPY Diagnoses Lymphedema [I89.0] Procedures EST RS PT LYMPHEDEMA Self Prerna Bonds, PT [address] [place] [address] Reason Comments Follow Up Specialty Diagnoses / [...] Expiration Date V isits Requested Visits Authorized [id number] Closed PCP Requested Referral Auto-Generated Referral 03/21/2022 06/21/2022 12 12 Specialty Diagnoses / Procedures Referred By Contac t Referred To Contact PHYSICAL THERAPY Diagnoses I89.0 (ICD-10-CM) - Lymphedema of both lower extremities Procedures I89.0 (ICD-10-CM) - Lymphedema of both lower extremities Jaquan Sanchez MD [address] [place] [address] Pt [facility] [address] [place] [address] Referral ID Status Reason Start Date Expiration Date V isits Requested Visits Authorized [id number] Outside PCP 08/10/2022 11/08/2022 1 1 Reason Comments Swelling Established Patient Follow Up Pain Referral ID Status Reason Start Date Expiration Date V isits Requested Visits Authorized [id number] Authorized 09/10/2022 12/23/2022 12 12 Reason Comments Results Reason Comments Physical Therapy Specialty Diagnoses / Procedures Referred By Contac t Referred To Contact PHYSICAL THERAPY Diagnoses I89.0 (ICD-10-CM) - Lymphedema of both lower extremities Procedures I89.0 (ICD-10-CM) - Lymphedema of both lower extremities Jaquan Sanchez MD [address] [place] [address] [facility] [address] [place] [address] Reason Onset Date Comments Referral Information 12/06/2022 [...] Expiration Date V isits Requested Visits Authorized [id number] Authorized 01/25/2023 05/14/2023 16 16 Referral ID Status Reason Start Date Expiration Date V isits Requested Visits Authorized [id number] Closed PCP Requested Referral Auto-Generated Referral 12/04/2022 [...] Procedures: 9032 - CONSULT TO PHYSICAL THERAPY 17064 (CPT ) - PHYSICAL THERAPY EVALUATION HIGH COMPLEX 45 MINS Start: May 15, 2023 Procedures R26.81 (ICD-10-CM) - Unsteady gait when walking I89.0 (ICD-10-CM) - Lymphedema of both lower extremities Procedures: 9032 - CONSULT TO PHYSICAL THERAPY 69900 (CPT ) - PHYSICAL THERAPY EVALUATION HIGH COMPLEX 45 MINS Start: May 15, 2023 Chhaya Stacy MD [address] [place] [address] Prerna Bonds, PT Referral ID Status Reason Start Date Expiration Date V isits Requested Visits Authorized [id number] Authorized 06/27/2023 08/25/2023 16 16 Specialty Diagnoses / Procedures Referred By Contac t Referred To Contact [facility] Diagnoses Lymphedema of both lower extremities Procedures PT REHAB FOLLOW UP ORDER THERAPEUTIC EXERCISES RE, EA 15 MIN. Chhaya Stacy MD [address] [place] [address] [facility] [place] [address] [place] [address] Referral ID Status Reason Start Date Expiration Date Visits Requested Visits Authorized [id number] Authorized PCP Requested Referral Auto-Generate d Referral 09/27/2023 10/26/2023 4 4 Specialty Diagnoses / Procedures Referred By Celestino t Referred To Contact PHYSICAL THERAPY Diagnoses Lymphedema, not elsewhere classified I89.0 (ICD-10-CM) - Lymphedema of both lower extremities Procedures I89.0 (ICD-10-CM) - Lymphedema of both lower extremities Chhaya Stacy MD [address] [place] [address] [facility] [address] [facility] [place] [address] Referral ID Status Reason Start Date Expiration Date V isits Requested Visits Authorized [id number] Authorized 10/28/2023 01/28/2024 8 8 Reason Comments Established Patient Debridement of Nail Specialty Diagnoses / Procedures Referred By Contac t Referred To Contact PHYSICAL THERAPY Diagnoses Lymphedema, not elsewhere classified I89.0 (ICD-10-CM) - Lymphedema of both lower extremities Procedures I89.0 (ICD-10-CM) - Lymphedema of both lower extremities Chhaya Stacy MD [address] [place] [address] [facility] [address] [facility] [place] [address] Referral ID Status Reason Start Date Expiration Date Visits Re quested Visits Authorized [id number] Closed 10/28/2023 01/28/2024 8 8 Referral ID Status Reason Start Date Expiration Date Visits Requested Visits Authorized [id number] Authorized PCP Requested Referral Auto-Generate d Referral 01/22/2024 04/26/2024 4 4 Specialty Diagnoses / Procedures Referred By Contac t Referred To Contact Physical Therapy / PHYSICAL THERAPY Diagnoses Lymphedema of both lower extremities Procedures PT REHAB FOLLOW UP ORDER THERAPEUTIC EXERCISES RE, EA 15 MIN. Chhaya Stacy MD [address] [place] [address] Prerna Bonds PT Referral ID Status Reason Start Date Expiration Date V isits Requested Visits Authorized [id number] Closed PCP Requested Referral Auto-Generated Referral 01/22/2024 04/26/2024 4 4 Specialty Diagnoses / Procedures Referred By Contac t Referred To Contact Physical Therapy / PHYSICAL THERAPY Diagnoses Lymphedema, not elsewhere classified Procedures THERAPEUTIC EXERCISES RE, EA 15 MIN. Chhaya Stacy MD [address] [place] [address] Prerna Bonds PT Referral ID Status Reason Start Date Expiration Date V isits Requested Visits Authorized [id number] Authorized 03/12/2024 06/26/2024 20 20 Reason Comments Returning Patient's Call Returned pt's v [employer] message requesting more PT visits and concern that her legs/feet are more swollen. Therapist reviewed the appts that were already scheduled with pt and offered an appt for Sat. 06/15 that became available today d/t can. Pt first stated she could only keep Saturday's visit (06/19) because her wagon driver salesperson can only take her on Fridays. Later, she said she would call her wagon driver salesperson to see if she could bring her on Saturday and would let us know. Reviewed HEP with pt & instructed to do 2x/day Specialty Diagnoses / Procedures Referred By Contac t Referred To Contact PHYSICAL THERAPY Diagnoses 89.0 (ICD-10-CM) - Lymphedema, not elsewhere classified Procedures 89.0 (ICD-10-CM) - Lymphedema, not elsewhere classified Chhaya Stacy MD [address] [place] [address] Pt [facility] [address] [place] [address] Referral ID Status Reason Start Date Expiration Date V isits Requested Visits Authorized [id number] Authorized 07/07/2024 09/25/2024 20 20 Specialty Diagnoses / Procedures Referred By Contac t Referred To Contact PHYSICAL THERAPY Diagnoses 89.0 (ICD-10-CM) - Lymphedema, not elsewhere classified Procedures 89.0 (ICD-10-CM) - Lymphedema, not elsewhere classified Chhaya Stacy MD [address] [place] [address] Pt [facility] [address] [place] [address] Specialty Diagnoses / Procedures Referred By Contac t Referred To Contact [facility] Diagnoses Lymphedema of both lower extremities Procedures PT REHAB FOLLOW UP ORDER THERAPEUTIC EXERCISES RE, EA 15 MIN. Tyler Benitez MD [address] [place] [address] Phone: tel: fax: [facility] [address] [place] [address] Referral ID Status Reason Start Date Expiration Date Visits Requested Visits Authorized [id number] Authorized PCP Requested Referral Auto-Generate d Referral [...] spoke with nurse in [facility]) who consulted physician on staff and advised [...] of both lower extremities Procedures EST PT/OT [facility] Tyler Benitez MD [address] [place] [address] Phone: tel: fax: Ana Rosa Ricketts, PT [address] [place] [address] Phone: tel: Referral ID Status Reason Start Date Expiration Date V isits Requested Visits Authorized [id number] Authorized 03/17/2025 06/17/2025 15 15 Care Teams (unrecognized sec tion and content) [employer] Reverse Winder Relationship Specialty Start Date End Date Tyler Benitez MD [address] [place] [address] PCP - General Family Practice 06/06/20 Geo Rivera MD [address] [place] [address] Referring Orthotics & Prosthetics 07/11/20 [employer] Reverse Winder Relationship Specialty Start Date End Date Tyler Benitez MD [address] [place] [address] PCP - General Family Practice 06/06/20 Geo Rivera MD [address] [place] [address] Referring Orthotics & Prosthetics 07/11/20 [employer] Reverse Winder Relationship Specialty Start Date End Date Tyler Benitez MD [address] [place] [address] PCP - General Family Practice 06/06/20 Geo Rivera MD [address] [place] [address] Referring Orthotics & Prosthetics 07/11/20 [employer] Reverse Winder Relationship Specialty Start Date End Date Tyler Benitez MD [address] [place] [address] PCP - General Family Practice 06/06/20 Geo Rivera MD [address] [place] [phone] Referring Orthotics & Prosthetics 07/11/20 [employer] Reverse Winder Relationship Specialty Start Date End Date Tyler Benitez MD [address] [place] [address] PCP - General Family Practice 06/06/20 Geo Rivera MD [address] [place] [phone] Referring Orthotics & Prosthetics 07/11/20 [employer] Reverse Winder Relationship Specialty Start Date End Date Tyler Benitez MD [address] [place] [address] PCP - General Family Practice 06/06/20 Geo Rivera MD [address] [place] [address] Referring Orthotics & Prosthetics 07/11/20 [employer] Reverse Winder Relationship Specialty Start Date End Date Tyler Benitez MD [address] [place] [address] PCP - General Family Practice 06/06/20 Geo Rivera MD [address] [place] [address] Referring Orthotics & Prosthetics 07/11/20 [employer] Reverse Winder Relationship Specialty Start Date End Date Tyler Benitez MD [address] [place] [address] PCP - General Family Practice 06/06/20 Geo Rivera MD [address] [place] [phone] Referring Orthotics & Prosthetics 07/11/20 [employer] Reverse Winder Relationship Specialty Start Date End Date Tyler Benitez MD [address] [place] [address] PCP - General Family Medicine 06/06/20 Geo Rivera MD [address] [place] [address] Referring Orthotics & Prosthetics 07/11/20 [employer] Reverse Winder Relationship Specialty Start Date End Date Tyler Benitez MD [address] [place] [address] PCP - General Family Medicine 06/06/20 Geo Rivera MD [address] [place] [address] Referring Orthotics & Prosthetics 07/11/20 [employer] Reverse Winder Relationship Specialty Start Date End Date Tyler Benitez MD [address] [place] [address] PCP - General Family Medicine 06/06/20 Geo Rivera MD [address] [place] [address] Referring Orthotics & Prosthetics 07/11/20 [employer] Reverse Winder Relationship Specialty Start Date End Date Tyler Benitez MD [address] [place] [address] PCP - General Family Medicine 06/06/20 Geo Rivera MD [address] [place] [address] Referring Orthotics & Prosthetics 07/11/20 [employer] Reverse Winder Relationship Specialty Start Date End Date Tyler Benitez MD [address] [place] [address] PCP - General Family Medicine 06/06/20 Geo Rivera MD [address] [place] [address] Referring Orthotics & Prosthetics 07/11/20 [employer] Reverse Winder Relationship Specialty Start Date End Date Tyler Benitez MD [address] [place] [address] PCP - General Family Medicine 06/06/20 Geo Rivera MD [address] [place] [address] Referring Orthotics & Prosthetics 07/11/20 [employer] Reverse Winder Relationship Specialty Start Date End Date Tyler Benitez MD [address] [place] [address] PCP - General Family Medicine 06/06/20 Geo Rivera MD [address] [place] [address] Referring Orthotics & Prosthetics 07/11/20 [employer] Reverse Winder Relationship Specialty Start Date End Date Tyler Benitez MD [address] [place] [address] PCP - General Family Medicine 06/06/20 Geo Rivera MD [address] [place] [address] Referring Orthotics & Prosthetics 07/11/20 [employer] Reverse Winder Relationship Specialty Start Date End Date Tyler Benitez MD [address] [place], [place] [address] PCP - General Family Medicine 06/06/20 Geo Rivera MD [address] [place] [phone] Referring Orthotics & Prosthetics 07/11/20 [employer] Reverse Winder Relationship Specialty Start Date End Date Tyler Benitez MD [address] [place], [place] [id number] PCP - General Family Medicine 06/06/20 Geo Rivera MD [address] [place] [phone] Referring Orthotics & Prosthetics 07/11/20 Team Status: Active Member Role Status Dates Dr. Tyler Benitez MD Family Provider Active Dr. Tyler Benitez MD Primary Care Provider Active Team Status: Inactive Member Role Status Dates Dr. Tyler Benitez MD Primary Care Provide r, Attending Provider, Referring Provider Active [employer] Reverse Winder Relationship Specialty Start Date End Date Tyler Benitez MD [address] [place] [address] PCP - General Family Medicine 06/06/20 Geo Rivera MD [address] [place] [phone] Referring Orthotics & Prosthetics 07/11/20 Team Status: Inactive Member Role Status Dates Dr. Tyler Benitez MD Primary Care Provider, Referring P murphy Active Jaquan Yarbrough S[employer]IOR [employer] ADMINISTRATOR, SENIOR [employer] SYSTEM[employer] ADMINISTRATOR-C Attending Provider Active [employer] Reverse Winder Relationship Specialty Start Date End Date Tyler Benitez MD [address] [place] [address] PCP - General Family Medicine 06/06/20 Geo Rivera MD [address] [place] [address] Referring Orthotics & Prosthetics 07/11/20 [employer] Reverse Winder Relationship Specialty Start Date End Date Tyler Benitez MD [address] [place] [address] PCP - General Family Medicine 06/06/20 Geo Rivera MD [address] [place] [address] Referring Orthotics & Prosthetics 07/11/20 [employer] Reverse Winder Relationship Specialty Start Date End Date Tyler Benitez MD [address] [place] [address] PCP - General Family Medicine 06/06/20 Geo Rivera MD [address] [place] [address] Referring Orthotics & Prosthetics 07/11/20 [employer] Reverse Winder Relationship Specialty Start Date End Date Tyler Benitez MD [address] [place] [address] PCP - General Family Medicine 06/06/20 Geo Rivera MD [address] [place] [address] Referring Orthotics & Prosthetics 07/11/20 [employer] Reverse Winder Relationship Specialty Start Date End Date Tyler Benitez MD [address] [place] [address] PCP - General Family Medicine 06/06/20 Geo Rivera MD [address] [place] [address] Referring Orthotics & Prosthetics 07/11/20 [employer] Reverse Winder Relationship Specialty Start Date End Date Tyler Benitez MD [address] [place] [address] PCP - General Family Medicine 06/06/20 Geo Rivera MD [address] [place], [place] [address] Referring Orthotics & Prosthetics 07/11/20 [employer] Reverse Winder Relationship Specialty Start Date End Date Tyler Benitez MD [address] [place] [address] PCP - General Family Medicine 06/06/20 Geo Rivera MD [address] [place] [address] Referring Orthotics & Prosthetics 07/11/20 [employer] Reverse Winder Relationship Specialty Start Date End Date Tyler Benitez MD [address] [place] [address] PCP - General Family Medicine 06/06/20 Geo Rivera MD [address] [place] [address] Referring Orthotics & Prosthetics 07/11/20 [employer] Reverse Winder Relationship Specialty Start Date End Date Tyler Benitez MD [address] [place] [address] PCP - General Family Medicine 06/06/20 Geo Rivera MD [address] [place] [address] Referring Orthotics & Prosthetics 07/11/20 [employer] Reverse Winder Relationship Specialty Start Date End Date Tyler Benitez MD [address] [address] PCP - General Family Medicine 06/06/20 Geo Rivera MD [address] [facility] [place] [address] Referring Orthotics & Prosthetics 07/11/20 [employer] Reverse Winder Relationship Specialty Start Date End Date Tyler Benitez MD [address] [facility] [place], [place] [address] PCP - General Family Medicine 06/06/20 Geo Rivera MD [address] [facility] [place], [place] [address] Referring Orthotics & Prosthetics 07/11/20 Team Status: [...] Dr. Armand Bob MD Attending Provider Active [employer] Reverse Winder Relationship Specialty Start Date End Date Tyler Benitez MD [address] [place], [place] [address] PCP - General Family Medicine 06/06/20 Geo Rivera MD [address] [place], [place] [address] Referring Orthotics & Prosthetics 07/11/20 [employer] Reverse Winder Relationship Specialty Start Date End Date Tyler Benitez MD [address] [place], [place] [address] PCP - General Family Medicine 06/06/20 Geo Rivera MD [address] [place], [place] [address] Referring Orthotics & Prosthetics 07/11/20 [employer] Reverse Winder Relationship Specialty Start Date End Date Tyler Benitez MD [address] [place], [place] [address] PCP - General Family Medicine 06/06/20 Geo Rivera MD [address] [place], [place] [address] Referring Orthotics & Prosthetics 07/11/20 Team Status: Active Member Role Status Dates Dr. Tyler Benitez MD Primary Care Provider Active Dr. Mir Brumfield MD Attending Provider Active Dr. Mariusz Waters MD Referring Provider Active Team Status: Inactive Member Role Status Dates Dr. Tyler Benitez MD Primary Care Provider Active Dr. Sage Augustin MD Emergency Provider Active [employer] Reverse Winder Relationship Specialty Start Date End Date Tyler Benitez MD [address] [place], [place] [address] PCP - General Family Medicine 06/06/20 Geo Rivera MD [address] [place], [place] [address] Referring Orthotics & Prosthetics 07/11/20 Team Status: Inactive Member Role Status Dates Dr. Tyler Benitez MD Primary Care Provider Active Dr. Sage Augustin MD Attending Provider, Emergency Provider Active Team Status: Inactive Member Role Status Dates Dr. Tyler Benitez MD Primary Care Provider, Attending Francis arrington Active [employer] Reverse Winder Relationship Specialty Start Date End Date Tyler Benitez MD [address] [place], [place] [address] PCP - General Family Medicine 06/06/20 Geo Rivera MD [address] [place] [address] Referring Orthotics & Prosthetics 07/11/20 [employer] Reverse Winder Relationship Specialty Start Date End Date Tyler Benitez MD [address] [place] [address] PCP - General Family Medicine 06/06/20 Geo Rivera MD [address] [place] [address] Referring Orthotics & Prosthetics 07/11/20 [employer] Reverse Winder Relationship Specialty Start Date End Date Tyler Benitez MD [address] [place] [address] PCP - General Family Medicine 06/06/20 Geo Rivera MD [address] [place] [address] Referring Orthotics & Prosthetics 07/11/20 [employer] Reverse Winder Relationship Specialty Start Date End Date Tyler Benitez MD [address] [place] [address] PCP - General Family Medicine 06/06/20 Geo Rivera MD [address] [place] [address] Referring Orthotics & Prosthetics 07/11/20 Main[employer] Reverse Winder Relationship Specialty Start Date End Date Tyler Benitez MD [address] [place] [address] PCP - General Family Medicine 06/06/20 Geo Rivera MD [address] [place] [address] Referring Orthotics & Prosthetics 07/11/20 [employer] Reverse Winder Relationship Specialty Start Date End Date Tyler Benitez MD [address] [place] [address] PCP - General Family Medicine 06/06/20 Geo Rivera MD [address] [place] [address] Referring Orthotics & Prosthetics 07/11/20 [employer] Reverse Winder Relationship Specialty Start Date End Date Tyler Benitez MD [address] [place] [address] PCP - General Family Medicine 06/06/20 Geo Rivera MD [address] [place] [address] Referring Orthotics & Prosthetics 07/11/20 Team Status: Inactive Member Role Status Dates Dr. Tyler Benitez MD Primary Care Provider, Referring P murphy Active Jimbo ALEXANDER, [place] Attending Provider Active [employer] Reverse Winder Relationship Specialty Start Date End Date Tyler Benitez MD [address] [place] [address] PCP - General Family Medicine 06/06/20 Geo Rivera MD [address] [place] [address] Referring Orthotics & Prosthetics 07/11/20 Main[employer] Reverse Winder Relationship Specialty Start Date End Date Tyler Benitez MD [address] [place] [address] PCP - General Family Medicine 06/06/20 Geo Rivera MD [address] [place] [address] Referring Orthotics & Prosthetics 07/11/20 Main[employer] Reverse Winder Relationship Specialty Start Date End Date Tyler Benitez MD [address] [place], [place] [address] PCP - General Family Medicine 06/06/20 Geo Rivera MD [address] [place], [place] [address] Referring Orthotics & Prosthetics 07/11/20 Main[employer] Reverse Winder Relationship Specialty Start Date End Date Tyler Benitez MD [address] [place], [place] [address] PCP - General Family Medicine 06/06/20 Geo Rivera MD [address] [place], [place] [address] Referring Orthotics & Prosthetics 07/11/20 Mainspring Reverse Winder Relationship Specialty Start Date End Date Tyler Benitez MD [address] [place], [place] [address] PCP - General Family Medicine 06/06/20 Geo Rivera MD [address] [place], [place] [address] Referring Orthotics & Prosthetics 07/11/20 Team Status: [...] March 02, 2025 End: March 02, 2025 Main[employer] Reverse Winder Relationship Specialty Start Date End Date Tyler Benitez MD [address] [place] [address] PCP - General Family Medicine 06/06/20 Geo Rivera MD [address] [place] [address] Referring Orthotics & Prosthetics 07/11/20 Team Status: [...] 2025 End: March 02, 2025 Dr. Malaika Yeun DO Attending Provider Active Start: March 02, [...] March 12, 2025 End: March 12, 2025 Main[employer] Reverse Winder Relationship Specialty Start Date End Date Tyler Benitez MD [address] [place], [place] [address] PCP - General Family Medicine 06/06/20 Geo Rivera MD [address] [place] [address] Referring Orthotics & Prosthetics 07/11/20 Team Status: [...] BE BASED ON THE PRIMARY CLINICAL RECORDS. [facility]. provides no warranty or guarantee of the accuracy or completeness of information in this document.
--- OUTSIDE RECORDS SUMMARY | 2025-06-16 23:41 | XMS RPT_ITS | CCD ---
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 ####[facility] [address] [place], [address] Globulin (S) [Mass/Vol] 3.7 g/dL Normal 2.2-4.2 [facility] Comment on above: Order Comment: Order Date: 03/02/25Order Info: 0786- - CMPOrder Info: 3015-10 - TSH Performed By: #### L 500.4050, L100.0100, L501.9520 ####[facility] [address] [place], [address] Glucose [Mass/Vol] 84 mg/dL Normal 70-99 [facility] Comment on above: Order Comment: Order Date: 03/02/25Order Info: 0786-1 - CMPOrder Info: 3 - TSH Performed By: #### L 500.4050, L100.0100, L501.9520 ####[facility] [address] [place], [address] Potassium [Moles/Vol] 4.4 mmol/L Normal 3.3-5.1 [facility] Comment on above: Order Comment: Order Date: 03/02/25Order Info: 0786-1 - CMPOrder Info: 3 - TSH Performed By: #### L 500.4050, L100.0100, L501.9520 ####[facility] [address] [place], [address] Sodium [Moles/Vol] 140 mmol/L Normal 133-145 [facility] Comment on above: Order Comment: Order Date: 03/02/25Order Info: 0786-1 - CMPOrder Info: 3016-3 - TSH Performed By: #### L 500.4050, L100.0100, L501.9520 ####[facility] [address] [place], [address] T PROT 7.4 g/dL Normal 5.9-8.4 [facility] Comment on above: Order Comment: Order Date: 03/02/25Order Info: 0786-1 - CMPOrder Info: 3016-3 - TSH Performed By: #### L 500.4050, L100.0100, L501.9520 ####[facility] [address] [place], [address] Urea nitrogen [Mass/Vol] 38 mg/dL High 4-19 [facility] Comment on above: Order Comment: Order Date: 03/02/25Order Info: 0786-1 - CMPOrder Info: 3016-3 - TSH Performed By: #### L 500.4050, L100.0100, L501.9520 ####[facility] [address] [place], [address] Eosinophil percentageOrdered By: Tyler Benitez on 03-11-2025 Eosinophils/100 WBC (Bld) 1.7 % 0-5 [facility] Erythrocyte distribution wid th ratioOrdered By: Tyler Benitez on 03-11-2025 Erythrocyte distribution width (RBC) [Ratio] 13.8 % 11.6-14.6 [facility] Erythrocyte distribution wid th standard deviationOrdered By: Tyler Benitez on 03-11-2025 Erythrocyte distribution width (RBC) [Ratio] 45.3 fl High 35.1-43.9 [facility] Glomerular filtration rate ( GFR) estimation/1.73 sq m using serum, plasma, or whole bOrdered By: Tyler Benitez on 03-11-2025 GFR/1.73 sq M.predicted among non-blacks MDRD (S/P/Bld) [Vol rate/Area] 28 mL/min/{1.73_m2} Low >60 [facility] Comment on above: mL/min/1.73m2 CKD-EP I Creatinine Equation (2020) Hematocrit Auto (Bld) [Volum e fraction]Ordered By: Tyler Benitez on 03-11-2025 Hematocrit (Bld) [Volume fraction] 37.3 % 37-47 [facility] Hemoglobin measurementOrdere d By: Tyler Benitez on 03-11-2025 Hemoglobin (Bld) [Mass/Vol] 11.7 g/dL Low 12.0-15.0 [facility] Immature granulocytes/100 WB C Auto (Bld)Ordered By: Tyler Benitez on 03-11-2025 Immature granulocytes/100 WBC (Bld) 0.300 % 0.0-0.9 [facility] Comment on above: IG% - Immature Granu locytes (promyelocytes, myelocytes and metamyelocytes) > 1% indicates that a LEFT SHIFT is Present. L503.7505on 03-11-2025 Natriuretic peptide B (Bld) [Mass/Vol] 1089 pg/mL Normal <=1800 [facility] Comment on above: Order Comment: Order Date: 03/02/25 Order Info: 0786-1 - CMP Order Info: 3016-3 - TSH Result Comment: Hear t Failure Unlikely: < 300 pg/mL Heart Failure Likely < 50 Years: > 450 pg/mL 50-75 Years: > 900 pg/mL >75 Years: > 1800 pg/mL Performed By: #### L 503.7505 #### [facility] [address] [place] [address], [id number] Laboratory - Chemistry and C hemistry - challengeOrdered By: Tyler Benitez on 03-11-2025 AST [Catalytic activity/Vol] 20 U/L <32 [facility] MCV (mean corpuscular volume ) determinationOrdered By: Tyler Benitez on 03-11-2025 MCV (RBC) [Entitic vol] 90.1 fL 81-99 [facility] Mean corpuscular hemoglobin (MCH) determinationOrdered By: Tyler Benitez on 03-11-2025 MCH (RBC) [Entitic mass] 28.3 pg 27.0-32.0 [facility] Mean corpuscular hemoglobin concentration (MCHC) determinationOrdered By: Tyler Benitez on 03-11-2025 MCHC (RBC) [Mass/Vol] 31.4 g/dL Low 32-36 [facility] Mean platelet volume determi nationOrdered By: Tyler Benitez on 03-11-2025 Platelet mean volume (Bld) [Entitic vol] 10.4 fL 6.2-12.0 [facility] Monocyte percentageOrdered B y: Tyler Benitez on 03-11-2025 Monocytes/100 WBC (Bld) 9.1 % 0-10 [facility] Natriuretic peptide.B prohor nathan N-Terminal [Mass/volume] in Serum or PlasmaOrdered By: Tyler Benitez on 03-11-2025 Natriuretic peptide.B prohormone N-Terminal [Mass/Vol] 1089 pg/mL <1800 [facility] Comment on above: Heart Failure Unlike ly: < 300 pg/mLHeart Failure Likely< 50 Years: > 450 pg/mL50-75 Years: > 900 pg/mL>75 Years: > 1800 pg/mL Neutrophil percentageOrdered By: Tyler Benitez on 03-11-2025 Neutrophils/100 WBC (Bld) 72.9 % High 47-70 [facility] Nucleated red blood cell per centageOrdered By: Tyler Benitez on 03-11-2025 Nucleated RBC/100 WBC (Bld) [Ratio] 0 % 0-5 [facility] Platelet countOrdered By: Silvio Benitez on 03-11-2025 Platelets (Bld) [#/Vol] 202 10*3/uL 150-450 [facility] Potassium measurement (mass/ volume)Ordered By: Tyler Benitez on 03-11-2025 Potassium (Unsp spec) [Mass/Vol] 4.4 mmol/L 3.3-5.1 [facility] RBC Auto (Bld) [#/Vol]Ordere d By: Tyler Benitez on 03-11-2025 RBC (Bld) [#/Vol] 4.14 10*6/uL Low 4.2-5.4 [facility] Serum creatinine measurement (mass/volume)Ordered By: Tyler Benitez on 03-11-2025 Creatinine [Mass/Vol] 1.76 mg/dL High 0.70-1.20 [facility] Serum globulin measurementOr dered By: Tyler Benitez on 03-11-2025 Globulin (S) [Mass/Vol] 3.7 g/dL 2.2-4.2 [facility] Serum glucose measurement (m ass/volume)Ordered By: Tyler Benitez on 03-11-2025 Glucose [Mass/Vol] 84 mg/dL 70-99 [facility] Serum or plasma alanine welch otransferase (ALT) measurementOrdered By: Tyler Benitez on 03-11-2025 ALT [Catalytic activity/Vol] 8 U/L <35 [facility] Serum or plasma albumin lakeisha urement (mass/volume)Ordered By: Tyler Benitez on 03-11-2025 Albumin [Mass/Vol] 3.7 g/dL 3.4-4.8 [facility] Serum or plasma albumin/glob ulin mass ratioOrdered By: Tyler Benitez on 03-11-2025 Albumin/Globulin [Mass ratio] 1.0 {ratio} 0.9-2.4 [facility] Serum or plasma alkaline vania sphatase measurementOrdered By: Tyler Benitez on 03-11-2025 ALP [Catalytic activity/Vol] 91 U/L 35-104 [facility] Serum or plasma calcium lakeisha urement (mass/volume)Ordered By: Tyler Benitez on 03-11-2025 Calcium [Mass/Vol] 9.7 mg/dL 7.6-11.0 [facility] Serum or plasma urea nitroge n measurement (mass/volume)Ordered By: Tyler Benitez on 03-11-2025 Urea nitrogen [Mass/Vol] 38 mg/dL High 4-19 [facility] Sodium levelOrdered By: Tyler Benitez on 03-11-2025 Sodium [Moles/Vol] 140 mmol/L 133-145 [facility] TSH DL <= 0.005 mIU/L QnOrde red By: Tyler Benitez on 03-11-2025 TSH Qn 2.920 uIU/mL 0.300-4.20 0 [facility] Thyroid Stim Hormone (TSH)on 03-11-2025 TSH 2.920 uIU/mL Normal 0.300-4.20 0 [facility] Comment on above: Order Comment: Order Date: 03/02/25Order Info: 0786-1 - CMPOrder Info: 3016-3 - TSH Performed By: #### L 500.4050, L100.0100, L501.9520 ####[facility] [address] [place], [place], [id number] Total proteinOrdered By: Reyna Benitez on 03-11-2025 Protein [Mass/Vol] 7.4 g/dL 5.9-8.4 [facility] White blood cell (WBC) count Ordered By: Tyler Benitez on 03-11-2025 WBC (Bld) [#/Vol] 6.6 10*3/uL 4.4-11.0 [facility] Absolute lymphocyte countOrd ered By: Malaika Yuen on 03-02-2025 Lymphocytes Auto (Unsp spec) [#/Vol] 0.91 10*3/uL 0.83-4.51 [facility] Absolute neutrophil countOrd ered By: Malaika Yuen on 03-02-2025 Neutrophils (Bld) [#/Vol] 3.8 10*3/uL 2.0-7.7 [facility] Anion gap in Serum or Plasma Ordered By: Malaika Yuen on 03-02-2025 Anion gap [Moles/Vol] 12 mmol/L 5-15 [facility] Automated blood erythrocyte countOrdered By: Malaika Yuen on 03-02-2025 RBC (Bld) [#/Vol] 3.80 10*6/uL Low 4.2-5.4 [facility] Comment on above: Performed By: #### L 100.0100, L500.2500, L503.7505 #### [facility] [address] [place], [place], [id number] Automated blood hematocrit ( percentage)Ordered By: Malaika Yuen on 03-02-2025 Hematocrit (Bld) [Volume fraction] 34.3 % Low 37-47 [facility] Comment on above: Performed By: #### L 100.0100, L500.2500, L503.7505 #### [facility] [address] [place], [address] Automated lymphocyte count a s percentage of total leukocytesOrdered By: Malaika Yuen on 03-02-2025 Lymphocytes/100 WBC Auto (Unsp spec) 17.0 % Low 19-41 [facility] BUN/creatinine ratioOrdered By: Malaika Yuen on 03-02-2025 Urea nitrogen/Creatinine [Mass ratio] 26.5 mg/mg High 10-20 [facility] Basic Metabolic Profile (BMP )on 03-02-2025 BUN/CRE 26.5 RATIO High 10-20 [facility] Comment on above: Performed By: #### L 100.0100, L500.2500, L503.7505 #### [facility] [address] [place], [address] ECRCL 27.62 ml/min Low 50-250 [facility] Comment on above: Performed By: #### L 100.0100, L500.2500, L503.7505 #### [facility] [address] [place], [address] GAP 12 Normal 5-15 [facility] Comment on above: Performed By: #### L 100.0100, L500.2500, L503.7505 #### [facility] [address] [place], [address] Potassium [Moles/Vol] 4.8 mmol/L Normal 3.3-5.1 [facility] Comment on above: Performed By: #### L 100.0100, L500.2500, L503.7505 #### [facility] [address] [place], [address] Basophil percentageOrdered B y: Malaika Yuen on 03-02-2025 Basophils/100 WBC (Bld) 0.6 % Normal 0-1 [facility] Comment on above: Performed By: #### L 100.0100, L500.2500, L503.7505 #### [facility] [address] [place], [address] CBC W/Diff, Automatedon 07-0 8-5 Absolute Lymph 0.91 X10 3/uL Normal 0.83-4.51 [facility] Comment on above: Performed By: #### L 100.0100, L500.2500, L503.7505 #### [facility] [address] [place], [address] Absolute Neut 3.8 X10 3/uL Normal 2.0-7.7 [facility] Comment on above: Performed By: #### L 100.0100, L500.2500, L503.7505 #### [facility] [address] [place], [address] IG% 0.400 Normal 0.0-0.9 [facility] Comment on above: Result Comment: IG% - Immature Granulocytes (promyelocytes, myelocytes and metamyelocytes) > 1% indicates that a LEFT SHIFT is Present. Performed By: #### L 100.0100, L500.2500, L503.7505 #### [facility] [address] [place], [address] Lymphocytes/100 WBC (Bld) 17.0 % Low 19-41 [facility] Comment on above: Performed By: #### L 100.0100, L500.2500, L503.7505 #### [facility] [address] [place], [address] Nucleated RBC (Bld) [#/Vol] 0 10*3/uL Normal 0-5 [facility] Comment on above: Performed By: #### L 100.0100, L500.2500, L503.7505 #### [facility] [address] [place], [address] RDW SD 45.3 fl High 35.1-43.9 [facility] Comment on above: Performed By: #### L 100.0100, L500.2500, L503.7505 #### [facility] [address] [place], [address] Carbon dioxide, total [Moles /volume] in Central venous bloodOrdered By: Malaika Yuen on 03-02-2025 CO2 [Moles/Vol] 21.4 mmol/L Normal 21.0-32.0 [facility] Comment on above: Performed By: #### L 100.0100, L500.2500, L503.7505 #### [facility] [address] [place], [address] Chest PA and Lateralon 03-02 Chest PA and Lateral [facility] Services [address] [place] [address] Chest PA and Lateral MR#: [id number] Acct: [id number] Name: AMBER KOROMA Rep #: [id number] : 1940 F 84 From: Nata Lazo MD PCP: Dr. Tyler Benitez MD Status: [facility] ER Study: Chest PA and Lateral Date of Exam: 03/02/25 Exam# [id number] Ordering Dr: Malaika Yuen DO EXAM: XR Chest, 2 Views CLINICAL INDICATION: SOB TECHNIQUE: Frontal and lateral views of the chest. COMPARISON: No relevant prior studies available. FINDINGS: LUNGS AND PLEURAL SPACES: See below. HEART: Cardiomegaly with mild congestion. MEDIASTINUM: Unremarkable. Normal mediastinal contour. BONES/JOINTS: Unremarkable. No acute fracture. RAD/Chest PA and Lateral IMPRESSION: Cardiomegaly with mild congestion. Reading [facility] CC: Dr. Malaika Yuen DO; Dr. Tyler Benitez MD [facility] Manager: Signed Normal [facility] Chloride assayOrdered By: Dylan Yuen on 03-02-2025 Chloride [Moles/Vol] 105 mmol/L Normal 98-108 [facility] Comment on above: Performed By: #### L 100.0100, L500.2500, L503.7505 #### [facility] [address] [place], [address] Emergency Department Summary on 03-02-2025 Emergency Department Summary [facility] Medical Records Department [address] [place] [address] Emergency Department Summary 03/02/25 MR#: [id number] Acct: [id number] Name: AMBER KOROMA Rep #: [id number] : 1940 84 From: Malaika Yuen DO [...] ago which was negative for DVT. 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 Normal [facility] Eosinophil percentageOrdered By: Malaika Yuen on 03-02-2025 Eosinophils/100 WBC (Bld) 2.6 % Normal 0-5 [facility] Comment on above: Performed By: #### L 100.0100, L500.2500, L503.7505 #### [facility] [address] [place], [place], [id number] Erythrocyte distribution wid th ratioOrdered By: Malaika Yuen on 03-02-2025 Erythrocyte distribution width (RBC) [Ratio] 13.8 % Normal 11.6-14.6 [facility] Comment on above: Performed By: #### L 100.0100, L500.2500, L503.7505 #### [facility] [address] [place], [address] Erythrocyte distribution wid th standard deviationOrdered By: Malaika Yuen on 03-02-2025 Erythrocyte distribution width (RBC) [Ratio] 45.3 fl High 35.1-43.9 [facility] Glomerular filtration rate ( GFR) estimation/1.73 sq m using serum, plasma, or whole bOrdered By: Malaika Yuen on 03-02-2025 GFR/1.73 sq M.predicted among non-blacks MDRD (S/P/Bld) [Vol rate/Area] 36 mL/min/{1.73_m2} Low >60 [facility] Comment on above: mL/min/1.73m2 CKD-EP I Creatinine Equation (2020) Result Comment: mL/m in/1.73m2 CKD-EPI Creatinine Equation (2020) Performed By: #### L 100.0100, L500.2500, L503.7505 #### [facility] [address] [place], [place], [id number] Hemoglobin measurementOrdere d By: Malaika Yuen on 03-02-2025 Hemoglobin (Bld) [Mass/Vol] 10.9 g/dL Low 12.0-15.0 [facility] Comment on above: Performed By: #### L 100.0100, L500.2500, L503.7505 #### [facility] [address] [place] [place], [address] Immature granulocytes/100 WB C Auto (Bld)Ordered By: Malaika Yuen on 03-02-2025 Immature granulocytes/100 WBC (Bld) 0.400 % 0.0-0.9 [facility] Comment on above: IG% - Immature Granu locytes (promyelocytes, myelocytes and metamyelocytes) > 1% indicates that a LEFT SHIFT is Present. L503.7505on 03-02-2025 Natriuretic peptide B (Bld) [Mass/Vol] 900 pg/mL Normal <=1800 [facility] Comment on above: Result Comment: Hear t Failure Unlikely: < 300 pg/mL Heart Failure Likely < 50 Years: > 450 pg/mL 50-75 Years: > 900 pg/mL >75 Years: > 1800 pg/mL Performed By: #### L 503.7505 ####[facility] [address] [place], [address] MCV (mean corpuscular volume ) determinationOrdered By: Malaika Yuen on 03-02-2025 MCV (RBC) [Entitic vol] 90.3 fL Normal 81-99 [facility] Comment on above: Performed By: #### L 100.0100, L500.2500, L503.7505 #### [facility] [address] [place], [address] Mean corpuscular hemoglobin (MCH) determinationOrdered By: Malaika Yuen on 03-02-2025 MCH (RBC) [Entitic mass] 28.7 pg Normal 27.0-32.0 [facility] Comment on above: Performed By: #### L 100.0100, L500.2500, L503.7505 #### [facility] [address] [place], [address] Mean corpuscular hemoglobin concentration (MCHC) determinationOrdered By: Malaika Yuen on 03-02-2025 MCHC (RBC) [Mass/Vol] 31.8 g/dL Low 32-36 [facility] Comment on above: Performed By: #### L 100.0100, L500.2500, L503.7505 #### [facility] [address] [place], [address] Mean platelet volume determi nationOrdered By: Malaika Yuen on 03-02-2025 Platelet mean volume (Bld) [Entitic vol] 10.4 fL Normal 6.2-12.0 [facility] Comment on above: Performed By: #### L 100.0100, L500.2500, L503.7505 #### [facility] [address] [place], [address] Monocyte percentageOrdered B y: Malaika Yuen on 03-02-2025 Monocytes/100 WBC (Bld) 9.2 % Normal 0-10 [facility] Comment on above: Performed By: #### L 100.0100, L500.2500, L503.7505 #### [facility] [address] [place], [address] Natriuretic peptide.B prohor nathan N-Terminal [Mass/volume] in Serum or PlasmaOrdered By: Malaika Yuen on 03-02-2025 Natriuretic peptide.B prohormone N-Terminal [Mass/Vol] 900 pg/mL <1800 [facility] Comment on above: Heart Failure Unlike ly: < 300 pg/mLHeart Failure Likely< 50 Years: > 450 pg/mL50-75 Years: > 900 pg/mL>75 Years: > 1800 pg/mL Neutrophil percentageOrdered By: Malaika Yuen on 03-02-2025 Neutrophils/100 WBC (Bld) 70.2 % High 47-70 [facility] Comment on above: Performed By: #### L 100.0100, L500.2500, L503.7505 #### [facility] [address] [place], [address] Nucleated red blood cell per centageOrdered By: Malaika Yuen on 03-02-2025 Nucleated RBC/100 WBC (Bld) [Ratio] 0 % 0-5 [facility] Platelet countOrdered By: Dylan Yuen on 03-02-2025 Platelets (Bld) [#/Vol] 166 10*3/uL Normal 150-450 [facility] Comment on above: Performed By: #### L 100.0100, L500.2500, L503.7505 #### [facility] [address] [place], [address] Potassium measurement (mass/ volume)Ordered By: Malaika Yuen on 03-02-2025 Potassium (Unsp spec) [Mass/Vol] 4.8 mmol/L 3.3-5.1 [facility] Serum creatinine measurement (mass/volume)Ordered By: Malaika Yuen on 03-02-2025 Creatinine [Mass/Vol] 1.41 mg/dL High 0.70-1.20 [facility] Comment on above: Performed By: #### L 100.0100, L500.2500, L503.7505 #### [facility] [address] [place], [address] Serum glucose measurement (m ass/volume)Ordered By: Malaika Yuen on 03-02-2025 Glucose [Mass/Vol] 96 mg/dL Normal 70-99 [facility] Comment on above: Performed By: #### L 100.0100, L500.2500, L503.7505 #### [facility] [address] [place], [address] Serum or plasma calcium lakeisha urement (mass/volume)Ordered By: Malaika Yuen on 03-02-2025 Calcium [Mass/Vol] 9.4 mg/dL Normal 7.6-11.0 [facility] Comment on above: Performed By: #### L 100.0100, L500.2500, L503.7505 #### [facility] [address] [place], [address] Serum or plasma urea nitroge n measurement (mass/volume)Ordered By: Malaika Yuen on 03-02-2025 Urea nitrogen [Mass/Vol] 37 mg/dL High 4-19 [facility] Comment on above: Performed By: #### L 100.0100, L500.2500, L503.7505 #### [facility] [address] [place], [address] Sodium levelOrdered By: Ivelisse Yuen on 03-02-2025 Sodium [Moles/Vol] 139 mmol/L Normal 133-145 [facility] Comment on above: Performed By: #### L 100.0100, L500.2500, L503.7505 #### [facility] [address] [place], [address] White blood cell (WBC) count Ordered By: Malaika Yune on 03-02-2025 WBC (Bld) [#/Vol] 5.4 10*3/uL Normal 4.4-11.0 [facility] Comment on above: Performed By: #### L 100.0100, L500.2500, L503.7505 #### [facility] [address] [place], [address] Absolute lymphocyte countOrd ered By: Danial Cook on 02-19-2025 Lymphocytes Auto (Unsp spec) [#/Vol] 0.98 10*3/uL 0.83-4.51 [facility] Absolute neutrophil countOrd ered By: Danial Cook on 02-19-2025 Neutrophils (Bld) [#/Vol] 4.8 10*3/uL 2.0-7.7 [facility] Anion gap in Serum or Plasma Ordered By: Danial Cook on 02-19-2025 Anion gap [Moles/Vol] 11 mmol/L 5- [facility] Automated lymphocyte count a s percentage of total leukocytesOrdered By: Danial Cook on 02-19-2025 Lymphocytes/100 WBC Auto (Unsp spec) 14.2 % Low - [facility] BUN/creatinine ratioOrdered By: Danial Cook on 02-19-2025 Urea nitrogen/Creatinine [Mass ratio] 18.3 mg/mg - [facility] Basic Metabolic Profile (BMP )on 02-19-2025 BUN/CRE 18.3 RATIO Normal - [facility] Comment on above: Performed By: #### L 100.0100, L500.2500, L503.7505 #### [facility] [address] [place], [address] Calcium [Mass/Vol] 9.3 mg/dL Normal 7.6-11.0 [facility] Comment on above: Performed By: #### L 100.0100, L500.2500, L503.7505 #### [facility] [address] [place], [address] Chloride [Moles/Vol] 100 mmol/L Normal 98-108 [facility] Comment on above: Performed By: #### L 100.0100, L500.2500, L503.7505 #### [facility] [address] [place], [address] CO2 [Moles/Vol] 28.2 mmol/L Normal 21.0-32.0 [facility] Comment on above: Performed By: #### L 100.0100, L500.2500, L503.7505 #### [facility] [address] [place], [address] Creatinine [Mass/Vol] 1.84 mg/dL High 0.70-1.20 [facility] Comment on above: Performed By: #### L 100.0100, L500.2500, L503.7505 #### [facility] [address] [place], [address] GAP 11 Normal 5-15 [facility] Comment on above: Performed By: #### L 100.0100, L500.2500, L503.7505 #### [facility] [address] [place], [address] GFR/1.73 sq M.predicted among non-blacks MDRD (S/P/Bld) [Vol rate/Area] 26 mL/min/{1.73_m2} Low >60 [facility] Comment on above: Result Comment: mL/m in/1.73m2 CKD-EPI Creatinine Equation (2020) Performed By: #### L 100.0100, L500.2500, L503.7505 #### [facility] [address] [place], [address] Glucose [Mass/Vol] 81 mg/dL Normal 70-99 [facility] Comment on above: Performed By: #### L 100.0100, L500.2500, L503.7505 #### [facility] [address] [place], [address] Potassium [Moles/Vol] 3.7 mmol/L Normal 3.3-5.1 [facility] Comment on above: Performed By: #### L 100.0100, L500.2500, L503.7505 #### [facility] [address] [place], [address] Sodium [Moles/Vol] 139 mmol/L Normal 133-145 [facility] Comment on above: Performed By: #### L 100.0100, L500.2500, L503.7505 #### [facility] [address] [place], [address] Urea nitrogen [Mass/Vol] 34 mg/dL High 4-19 [facility] Comment on above: Performed By: #### L 100.0100, L500.2500, L503.7505 #### [facility] [address] [place], [address] Basophil percentageOrdered B y: Danial Cook on 02-19-2025 Basophils/100 WBC (Bld) 1.0 % 0-1 [facility] CBC W/Diff, Automatedon 01-25 Absolute Lymph 0.98 X10 3/uL Normal 0.83-4.51 [facility] Comment on above: Performed By: #### L 100.0100, L500.2500, L503.7505 #### [facility] [address] [place], [address] Absolute Neut 4.8 X10 3/uL Normal 2.0-7.7 [facility] Comment on above: Performed By: #### L 100.0100, L500.2500, L503.7505 #### [facility] [address] [place], [address] Basophils/100 WBC (Bld) 1.0 % Normal 0-1 [facility] Comment on above: Performed By: #### L 100.0100, L500.2500, L503.7505 #### [facility] [address] [place], [address] Eosinophils/100 WBC (Bld) 2.6 % Normal 0-5 [facility] Comment on above: Performed By: #### L 100.0100, L500.2500, L503.7505 #### [facility] [address] [place], [address] Erythrocyte distribution width (RBC) [Ratio] 14.2 % Normal 11.6-14.6 [facility] Comment on above: Performed By: #### L 100.0100, L500.2500, L503.7505 #### [facility] [address] [place], [address] Hematocrit (Bld) [Volume fraction] 36.7 % Low 37-47 [facility] Comment on above: Performed By: #### L 100.0100, L500.2500, L503.7505 #### [facility] [address] [place], [address] Hemoglobin (Bld) [Mass/Vol] 11.6 g/dL Low 12.0-15.0 [facility] Comment on above: Performed By: #### L 100.0100, L500.2500, L503.7505 #### [facility] [address] [place], [address] IG% 0.600 Normal 0.0-0.9 [facility] Comment on above: Result Comment: IG% - Immature Granulocytes (promyelocytes, myelocytes and metamyelocytes) > 1% indicates that a LEFT SHIFT is Present. Performed By: #### L 100.0100, L500.2500, L503.7505 #### [facility] [address] [place], [address] Lymphocytes/100 WBC (Bld) 14.2 % Low 19-41 [facility] Comment on above: Performed By: #### L 100.0100, L500.2500, L503.7505 #### [facility] [address] [place], [address] MCH (RBC) [Entitic mass] 28.3 pg Normal 27.0-32.0 [facility] Comment on above: Performed By: #### L 100.0100, L500.2500, L503.7505 #### [facility] [address] [place], [address] MCHC (RBC) [Mass/Vol] 31.6 g/dL Low 32-36 [facility] Comment on above: Performed By: #### L 100.0100, L500.2500, L503.7505 #### [facility] [address] [place], [address] MCV (RBC) [Entitic vol] 89.5 fL Normal 81-99 [facility] Comment on above: Performed By: #### L 100.0100, L500.2500, L503.7505 #### [facility] [address] [place], [address] Monocytes/100 WBC (Bld) 11.6 % High 0-10 [facility] Comment on above: Performed By: #### L 100.0100, L500.2500, L503.7505 #### [facility] [address] [place], [address] Neutrophils/100 WBC (Bld) 70.0 % Normal 47-70 [facility] Comment on above: Performed By: #### L 100.0100, L500.2500, L503.7505 #### [facility] [address] [place], [address] Nucleated RBC (Bld) [#/Vol] 0 10*3/uL Normal 0-5 [facility] Comment on above: Performed By: #### L 100.0100, L500.2500, L503.7505 #### [facility] [address] [place], [address] Platelet mean volume (Bld) [Entitic vol] 10.1 fL Normal 6.2-12.0 [facility] Comment on above: Performed By: #### L 100.0100, L500.2500, L503.7505 #### [facility] [address] [place], [address] Platelets (Bld) [#/Vol] 261 10*3/uL Normal 150-450 [facility] Comment on above: Performed By: #### L 100.0100, L500.2500, L503.7505 #### [facility] [address] [place], [address] RBC (Bld) [#/Vol] 4.10 10*6/uL Low 4.2-5.4 [facility] Comment on above: Performed By: #### L 100.0100, L500.2500, L503.7505 #### [facility] [address] [place], [address] RDW SD 46.7 fl High 35.1-43.9 [facility] Comment on above: Performed By: #### L 100.0100, L500.2500, L503.7505 #### [facility] [address] [place], [address] WBC (Bld) [#/Vol] 6.9 10*3/uL Normal 4.4-11.0 [facility] Comment on above: Performed By: #### L 100.0100, L500.2500, L503.7505 #### [facility] [address] [place], [address] [facility] Tele[facility] (PTWS) AMBER KOROMA ([id number]) 1940 F Date Time Provider Department 02/19/25 [facility] PTWS During your visit today, we recorded the following information about you: Danna Hernandez 02/19/2025 9:20 AM [facility] received an order for PT from [facility].However, he states the order needs to be for Occupational Therapy to be able to go through them. Their fax number is [phone]. Please review and advise. Danna Hernandez February [...] Endometrial cancer [C54.1] 03/19/2011 Cyst in hand [[id number]] 08/02/2011 Personal history of malignant neoplasm of [...] Status:Closed by MORRIS LO on 02/19/25 Normal [facility] Carbon dioxide, total [Moles /volume] in Central venous bloodOrdered By: Danial Cook on 02-19-2025 CO2 [Moles/Vol] 28.2 mmol/L 21.0-32.0 [facility] Chloride assayOrdered By: Elizabet Cook on 02-19-2025 Chloride [Moles/Vol] 100 mmol/L 98-108 [facility] Eosinophil percentageOrdered By: Danial Cook on 02-19-2025 Eosinophils/100 WBC (Bld) 2.6 % 0-5 [facility] Erythrocyte distribution wid th ratioOrdered By: Danial Cook on 02-19-2025 Erythrocyte distribution width (RBC) [Ratio] 14.2 % 11.6-14.6 [facility] Erythrocyte distribution wid th standard deviationOrdered By: Danial Cook on 02-19-2025 Erythrocyte distribution width (RBC) [Ratio] 46.7 fl High 35.1-43.9 [facility] Glomerular filtration rate ( GFR) estimation/1.73 sq m using serum, plasma, or whole bOrdered By: Danial Cook on 02-19-2025 GFR/1.73 sq M.predicted among non-blacks MDRD (S/P/Bld) [Vol rate/Area] 26 mL/min/{1.73_m2} Low >60 [facility] Comment on above: mL/min/1.73m2 CKD-EP I Creatinine Equation (2020) Hematocrit Auto (Bld) [Volum e fraction]Ordered By: Danial Cook on 02-19-2025 Hematocrit (Bld) [Volume fraction] 36.7 % Low 37-47 [facility] Hemoglobin measurementOrdere d By: Danial Cook on 02-19-2025 Hemoglobin (Bld) [Mass/Vol] 11.6 g/dL Low 12.0-15.0 [facility] Immature granulocytes/100 WB C Auto (Bld)Ordered By: Danial Cook on 02-19-2025 Immature granulocytes/100 WBC (Bld) 0.600 % 0.0-0.9 [facility] Comment on above: IG% - Immature Granu locytes (promyelocytes, myelocytes and metamyelocytes) > 1% indicates that a LEFT SHIFT is Present. L503.7505on 02-19-2025 Natriuretic peptide B (Bld) [Mass/Vol] 719 pg/mL Normal <=1800 [facility] Comment on above: Result Comment: Hear t Failure Unlikely: < 300 pg/mL Heart Failure Likely < 50 Years: > 450 pg/mL 50-75 Years: > 900 pg/mL >75 Years: > 1800 pg/mL Performed By: #### L 100.0100, L500.2500, L503.7505 #### [facility] [address] [place], [place], [address] MCV (mean corpuscular volume ) determinationOrdered By: Danial Cook on 02-19-2025 MCV (RBC) [Entitic vol] 89.5 fL 81-99 [facility] Mean corpuscular hemoglobin (MCH) determinationOrdered By: Danial Cook on 02-19-2025 MCH (RBC) [Entitic mass] 28.3 pg 27.0-32.0 [facility] Mean corpuscular hemoglobin concentration (MCHC) determinationOrdered By: Danial Cook on 02-19-2025 MCHC (RBC) [Mass/Vol] 31.6 g/dL Low 32-36 [facility] Mean platelet volume determi nationOrdered By: Danial Cook on 02-19-2025 Platelet mean volume (Bld) [Entitic vol] 10.1 fL 6.2-12.0 [facility] Monocyte percentageOrdered B y: Danial Cook on 02-19-2025 Monocytes/100 WBC (Bld) 11.6 % High 0-10 [facility] Natriuretic peptide.B prohor nathan N-Terminal [Mass/volume] in Serum or PlasmaOrdered By: Danial Cook on 02-19-2025 Natriuretic peptide.B prohormone N-Terminal [Mass/Vol] 719 pg/mL <1800 [facility] Comment on above: Heart Failure Unlike ly: < 300 pg/mLHeart Failure Likely< 50 Years: > 450 pg/mL50-75 Years: > 900 pg/mL>75 Years: > 1800 pg/mL Neutrophil percentageOrdered By: Danial Cook on 02-19-2025 Neutrophils/100 WBC (Bld) 70.0 % 47-70 [facility] Nucleated red blood cell per centageOrdered By: Danial Cook on 02-19-2025 Nucleated RBC/100 WBC (Bld) [Ratio] 0 % 0-5 [facility] Platelet countOrdered By: Elizabet Cook on 02-19-2025 Platelets (Bld) [#/Vol] 261 10*3/uL 150-450 [facility] Potassium measurement (mass/ volume)Ordered By: Danial Cook on 02-19-2025 Potassium (Unsp spec) [Mass/Vol] 3.7 mmol/L 3.3-5.1 [facility] RBC Auto (Bld) [#/Vol]Ordere d By: Danial Cook on 02-19-2025 RBC (Bld) [#/Vol] 4.10 10*6/uL Low 4.2-5.4 [facility] Serum creatinine measurement (mass/volume)Ordered By: Danial Cook on 02-19-2025 Creatinine [Mass/Vol] 1.84 mg/dL High 0.70-1.20 [facility] Serum glucose measurement (m ass/volume)Ordered By: Danial Cook on 02-19-2025 Glucose [Mass/Vol] 81 mg/dL 70-99 [facility] Serum or plasma calcium lakeisha urement (mass/volume)Ordered By: Danial Cook on 02-19-2025 Calcium [Mass/Vol] 9.3 mg/dL 7.6-11.0 [facility] Serum or plasma urea nitroge n measurement (mass/volume)Ordered By: Danial Cook on 02-19-2025 Urea nitrogen [Mass/Vol] 34 mg/dL High 4-19 [facility] Sodium levelOrdered By: Refugio ramirez Joey on 02-19-2025 Sodium [Moles/Vol] 139 mmol/L 133-145 [facility] White blood cell (WBC) count Ordered By: Danial Cook on 02-19-2025 WBC (Bld) [#/Vol] 6.9 10*3/uL 4.4-11.0 [facility] CNCOon 12-04-2024 CNCO Letter Text Normal [facility] CNPNon 11-24-2024 CNPN Telephone (PODIWS) AMBER KOROMA ([id number]) 1940 F Date Time Provider Department 11/24/24 [...] Endometrial cancer [C54.1] 03/19/2011 Cyst in hand [[id number]] 08/02/2011 Personal history of malignant neoplasm of [...] Status:Closed by CHARLA BENITEZ on 11/24/24 Normal [facility] CNTHERAPYon 11-20-2024 CNTHERAPY OT/PT/Speech Visit ( PTWS) AMBER KOROMA ([id number]) 1940 F Date Time Provider Department 11/20/24 2:45 PM PRERNA BONDS PTWS Date Time Provider Department Center 11/20/2024 2:45 PM [id number] BONDS PTWS [place] Reason for Visit: [...] 1,000 Units by mouth once daily. Normal [facility] Culture, Blood (WB)on 2024 CUB Blood cultures x2, f rom two different sites No growth in 5 days. Normal [facility] Comment on above: Performed By: #### L 100.0100, L500.2500, L503.7505 #### [facility] [address] [place], [address] [id number] 11-13-2024 [id number] HNO ID: [id number] Author: PRERNA BONDS PT Service: ? Author Type: Physical Therapist Type: [id number] Filed: 11/13/2024 16:42 Note Text: [facility] Physical Therapy Plan of Care Certification Patient Name: Amber Koroma : 1940 [facility] #: [id number] Date: 11/13/2024 To: Tyler Benitez MD From [...] Patient to be seen for Therapeutic exercise (47472), Manual therapy (37594), Self-correction management (69706), Patient/Family/Caregiver Education PLAN FOR NEXT VISIT: Continue exercise, MLD, and compression to improve skin/soft tissue condition and promote healing. Facilitate pt obtaining appropriate compression for pt management and for prevention of further cellulitis/infection. For further details regarding this patient refer to the Physical Therapy electronically documented visit dated 11/13/2024. Provider Attestation I have reviewed the treatment plan for Amber Koroma, [facility]# [id number] for the period of 11/13/24 -- 01/13/25, established on 11/13/2024. Signature certifies the need for therapy services. Normal [facility] CNTHERAPYon 11-13-2024 CNTHERAPY OT/PT/Speech Visit ( PTWS) AMBER KOROMA ([id number]) 1940 F Date Time Provider Department 11/13/24 2:45 PM PRERNA BONDS PTWS Date Time Provider Department Center 11/13/2024 2:45 PM [id number] BONDS PTWS [place] Reason for Visit: [...] by mouth once daily. Letter Text Normal [facility] Absolute lymphocyte countOrd ered By: Brad Avalos on 11-10-2024 Lymphocytes Auto (Unsp spec) [#/Vol] 0.94 10*3/uL 0.83-4.51 [facility] Absolute neutrophil countOrd ered By: Brad Avalos on 11-10-2024 Neutrophils (Bld) [#/Vol] 5.0 10*3/uL 2.0-7.7 [facility] Anion gap in Serum or Plasma Ordered By: Brad Avalos on 11-10-2024 Anion gap [Moles/Vol] 9 mmol/L 5-15 [facility] Automated lymphocyte count a s percentage of total leukocytesOrdered By: Brad Avalos on 11-10-2024 Lymphocytes/100 WBC Auto (Unsp spec) 14.0 % Low 19-41 [facility] BUN/creatinine ratioOrdered By: Brad Avalos on 11-10-2024 Urea nitrogen/Creatinine [Mass ratio] 18.0 mg/mg 10-20 [facility] Basic Metabolic Profile (BMP )on 11-10-2024 BUN/CRE 18.0 RATIO Normal 10-20 [facility] Comment on above: Performed By: #### L 500.2500, L100.0100 #### [facility] [address] [place], [address] Calcium [Mass/Vol] 9.3 mg/dL Normal 7.6-11.0 [facility] Comment on above: Performed By: #### L 500.2500, L100.0100 #### [facility] [address] [place], [address] Chloride [Moles/Vol] 106 mmol/L Normal 98-108 [facility] Comment on above: Performed By: #### L 500.2500, L100.0100 #### [facility] [address] [place], [address] CO2 [Moles/Vol] 23.8 mmol/L Normal 21.0-32.0 [facility] Comment on above: Performed By: #### L 500.2500, L100.0100 #### [facility] [address] [place], [address] Creatinine [Mass/Vol] 0.96 mg/dL Normal 0.70-1.20 [facility] Comment on above: Performed By: #### L 500.2500, L100.0100 #### [facility] [address] [place], [address] ECRCL 40.63 ml/min Low 50-250 [facility] Comment on above: Performed By: #### L 500.2500, L100.0100 #### [facility] [address] [place], [address] GAP 9 Normal 5-15 [facility] Comment on above: Performed By: #### L 500.2500, L100.0100 #### [facility] [address] [place], [address] GFR/1.73 sq M.predicted among non-blacks MDRD (S/P/Bld) [Vol rate/Area] 58 mL/min/{1.73_m2} Low >60 [facility] Comment on above: Result Comment: mL/m in/1.73m2 CKD-EPI Creatinine Equation (2020) Performed By: #### L 500.2500, L100.0100 #### [facility] [address] [place], [address] Glucose [Mass/Vol] 85 mg/dL Normal 70-99 [facility] Comment on above: Performed By: #### L 500.2500, L100.0100 #### [facility] [address] [place], [address] Potassium [Moles/Vol] 4.3 mmol/L Normal 3.3-5.1 [facility] Comment on above: Performed By: #### L 500.2500, L100.0100 #### [facility] [address] [place], [address] Sodium [Moles/Vol] 138 mmol/L Normal 133-145 [facility] Comment on above: Performed By: #### L 500.2500, L100.0100 #### [facility] [address] [place], [address] Urea nitrogen [Mass/Vol] 17 mg/dL Normal 4-19 [facility] Comment on above: Performed By: #### L 500.2500, L100.0100 #### [facility] [address] [place], [address] Basophil percentageOrdered B y: Brad Avalos on 11-10-2024 Basophils/100 WBC (Bld) 0.4 % 0-1 [facility] Blood cultureOrdered By: Spedey Avalos on 11-10-2024 Bacteria identified Cx Nom (Bld) No growth in 5 days. [facility] Bacteria identified Cx Nom (Bld) No growth in 5 days. [facility] CBC W/Diff, Automatedon - Absolute Lymph 0.94 X10 3/uL Normal 0.83-4.51 [facility] Comment on above: Performed By: #### L 500.2500, L100.0100 #### [facility] [address] [place], [address] Absolute Neut 5.0 X10 3/uL Normal 2.0-7.7 [facility] Comment on above: Performed By: #### L 500.2500, L100.0100 #### [facility] [address] [place], [address] Basophils/100 WBC (Bld) 0.4 % Normal 0-1 [facility] Comment on above: Performed By: #### L 500.2500, L100.0100 #### [facility] [address] [place], [address] Eosinophils/100 WBC (Bld) 1.5 % Normal 0-5 [facility] Comment on above: Performed By: #### L 500.2500, L100.0100 #### [facility] [address] [place], [address] Erythrocyte distribution width (RBC) [Ratio] 14.3 % Normal 11.6-14.6 [facility] Comment on above: Performed By: #### L 500.2500, L100.0100 #### [facility] [address] [place], [address] Hematocrit (Bld) [Volume fraction] 39.6 % Normal 37-47 [facility] Comment on above: Performed By: #### L 500.2500, L100.0100 #### [facility] [address] [place], [address] Hemoglobin (Bld) [Mass/Vol] 12.6 g/dL Normal 12.0-15.0 [facility] Comment on above: Performed By: #### L 500.2500, L100.0100 #### [facility] [address] [place], [address] IG% 0.300 Normal 0.0-0.9 [facility] Comment on above: Result Comment: IG% - Immature Granulocytes (promyelocytes, myelocytes and metamyelocytes) > 1% indicates that a LEFT SHIFT is Present. Performed By: #### L 500.2500, L100.0100 #### [facility] [address] [place], [address] Lymphocytes/100 WBC (Bld) 14.0 % Low 19-41 [facility] Comment on above: Performed By: #### L 500.2500, L100.0100 #### [facility] [address] [place], [address] MCH (RBC) [Entitic mass] 27.8 pg Normal 27.0-32.0 [facility] Comment on above: Performed By: #### L 500.2500, L100.0100 #### [facility] [address] [place], [address] MCHC (RBC) [Mass/Vol] 31.8 g/dL Low 32-36 [facility] Comment on above: Performed By: #### L 500.2500, L100.0100 #### [facility] [address] [place], [address] MCV (RBC) [Entitic vol] 87.4 fL Normal 81-99 [facility] Comment on above: Performed By: #### L 500.2500, L100.0100 #### [facility] [address] [place], [address] Monocytes/100 WBC (Bld) 9.8 % Normal 0-10 [facility] Comment on above: Performed By: #### L 500.2500, L100.0100 #### [facility] [address] [place], [address] Neutrophils/100 WBC (Bld) 74.0 % High 47-70 [facility] Comment on above: Performed By: #### L 500.2500, L100.0100 #### [facility] [address] [place], [address] Nucleated RBC (Bld) [#/Vol] 0 10*3/uL Normal 0-5 [facility] Comment on above: Performed By: #### L 500.2500, L100.0100 #### [facility] [address] [place], [address] Platelet mean volume (Bld) [Entitic vol] 10.0 fL Normal 6.2-12.0 [facility] Comment on above: Performed By: #### L 500.2500, L100.0100 #### [facility] [address] [place], [address] Platelets (Bld) [#/Vol] 192 10*3/uL Normal 150-450 [facility] Comment on above: Performed By: #### L 500.2500, L100.0100 #### [facility] [address] [place], [address] RBC (Bld) [#/Vol] 4.53 10*6/uL Normal 4.2-5.4 [facility] Comment on above: Performed By: #### L 500.2500, L100.0100 #### [facility] [address] [place], [address] RDW SD 45.3 fl High 35.1-43.9 [facility] Comment on above: Performed By: #### L 500.2500, L100.0100 #### [facility] [address] [place], [address] WBC (Bld) [#/Vol] 6.7 10*3/uL Normal 4.4-11.0 [facility] Comment on above: Performed By: #### L 500.2500, L100.0100 #### [facility] [address] [place], [address] Carbon dioxide, total [Moles /volume] in Central venous bloodOrdered By: Brad Avalos on 11-10-2024 CO2 [Moles/Vol] 23.8 mmol/L 21.0-32.0 [facility] Chloride assayOrdered By: Gumaro Avalos on 11-10-2024 Chloride [Moles/Vol] 106 mmol/L 98-108 [facility] Emergency Department Summary on 11-10-2024 Emergency Department Summary [facility] Medical Records Department [address] [place] [address] Emergency Department Summary 11/10/24 MR#: [id number] Acct: [id number] Name: AMBER KOROMA Rep #: [id number] : 1940 84 From: Brad Avalos DO [...] and she has difficulty moving around. 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 Normal [facility] Eosinophil percentageOrdered By: Brad Avalos on 11-10-2024 Eosinophils/100 WBC (Bld) 1.5 % 0-5 [facility] Erythrocyte distribution wid th ratioOrdered By: Brad Avalos on 11-10-2024 Erythrocyte distribution width (RBC) [Ratio] 14.3 % 11.6-14.6 [facility] Erythrocyte distribution wid th standard deviationOrdered By: Brad Avalos on 11-10-2024 Erythrocyte distribution width (RBC) [Entitic vol] 45.3 fL High 35.1-43.9 [facility] Erythrocyte distribution width (RBC) [Ratio] 45.3 fl High 35.1-43.9 [facility] Estimation of creatinine yovanny aranceOrdered By: Brad Avalos on 11-10-2024 Estimated Creatinine Clearance Calc 40.63 ml/min Low 50-250 [facility] GFR/1.73 sq M.predicted zane g non-blacks MDRD (S/P/Bld) [Vol rate/Area]Ordered By: Brad Avalos on 11-10-2024 Estimated GFR (MDRD) Non-Af Amer 58 Low >60 [facility] Comment on above: mL/min/1.73m2 CKD-EP I Creatinine Equation (2020) Glomerular filtration rate ( GFR) estimation/1.73 sq m using serum, plasma, or whole bOrdered By: Brad Avalos on 11-10-2024 GFR/1.73 sq M.predicted among non-blacks MDRD (S/P/Bld) [Vol rate/Area] 58 mL/min/{1.73_m2} Low >60 [facility] Comment on above: mL/min/1.73m2 CKD-EP I Creatinine Equation (2020) Hematocrit Auto (Bld) [Volum e fraction]Ordered By: Brad Avalos on 11-10-2024 Hematocrit (Bld) [Volume fraction] 39.6 % 37-47 [facility] Hemoglobin measurementOrdere d By: Brad Avalos on 11-10-2024 Hemoglobin (Bld) [Mass/Vol] 12.6 g/dL 12.0-15.0 [facility] Immature granulocytes/100 WB C Auto (Bld)Ordered By: Brad Avalos on 11-10-2024 Immature granulocytes/100 WBC (Bld) 0.300 % 0.0-0.9 [facility] Comment on above: IG% - Immature Granu locytes (promyelocytes, myelocytes and metamyelocytes) > 1% indicates that a LEFT SHIFT is Present. Lymphocytes Auto (Unsp spec) [#/Vol]Ordered By: Brad Avalos on 11-10-2024 Lymphocytes (Bld) [#/Vol] 0.94 10*3/uL 0.83-4.51 [facility] Lymphocytes/100 WBC Auto (Un sp spec)Ordered By: Brad Avalos on 11-10-2024 Lymphocytes/100 WBC (Bld) 14.0 % Low 19-41 [facility] MCV (mean corpuscular volume ) determinationOrdered By: Brad Avalos on 11-10-2024 MCV (RBC) [Entitic vol] 87.4 fL 81-99 [facility] Mean corpuscular hemoglobin (MCH) determinationOrdered By: Brad Avalos on 11-10-2024 MCH (RBC) [Entitic mass] 27.8 pg 27.0-32.0 [facility] Mean corpuscular hemoglobin concentration (MCHC) determinationOrdered By: Brad Avalos on 11-10-2024 MCHC (RBC) [Mass/Vol] 31.8 g/dL Low 32-36 [facility] Mean platelet volume determi nationOrdered By: Brad Avalos on 11-10-2024 Platelet mean volume (Bld) [Entitic vol] 10.0 fL 6.2-12.0 [facility] Monocyte percentageOrdered B y: Brad Avalos on 11-10-2024 Monocytes/100 WBC (Bld) 9.8 % 0-10 [facility] Neutrophil percentageOrdered By: Brad Avalos on 11-10-2024 Neutrophils/100 WBC (Bld) 74.0 % High 47-70 [facility] Nucleated red blood cell per centageOrdered By: Brad Avalos on 11-10-2024 Nucleated RBC/100 WBC (Bld) [Ratio] 0 % 0-5 [facility] Platelet countOrdered By: Gumaro Avalos on 11-10-2024 Platelets (Bld) [#/Vol] 192 10*3/uL 150-450 [facility] Potassium (Unsp spec) [Mass/ Vol]Ordered By: Brad Avalos on 11-10-2024 Potassium [Moles/Vol] 4.3 mmol/L 3.3-5.1 [facility] Potassium measurement (mass/ volume)Ordered By: Brad Avalos on 11-10-2024 Potassium (Unsp spec) [Mass/Vol] 4.3 mmol/L 3.3-5.1 [facility] RBC Auto (Bld) [#/Vol]Ordere d By: Brad Avalos on 11-10-2024 RBC (Bld) [#/Vol] 4.53 10*6/uL 4.2-5.4 [facility] Serum creatinine measurement (mass/volume)Ordered By: Brad Avalos on 11-10-2024 Creatinine [Mass/Vol] 0.96 mg/dL 0.70-1.20 [facility] Serum glucose measurement (m ass/volume)Ordered By: Brad Avalos on 11-10-2024 Glucose [Mass/Vol] 85 mg/dL 70-99 [facility] Serum or plasma calcium lakeisha urement (mass/volume)Ordered By: rBad Avalos on 11-10-2024 Calcium [Mass/Vol] 9.3 mg/dL 7.6-11.0 [facility] Serum or plasma urea nitroge n measurement (mass/volume)Ordered By: Brad Avalos on 11-10-2024 Urea nitrogen [Mass/Vol] 17 mg/dL 4-19 [facility] Sodium levelOrdered By: Ray Avalos on 11-10-2024 Sodium [Moles/Vol] 138 mmol/L 133-145 [facility] White blood cell (WBC) count Ordered By: Brad Avalos on 11-10-2024 WBC (Bld) [#/Vol] 6.7 10*3/uL 4.4-11.0 [facility] CNPNon 11-09-2024 CNPN Telephone (PTWS) AMBER KOROMA ([id number]) 1940 F Date Time Provider Department 11/09/24 [...] Endometrial cancer [C54.1] 03/19/2011 Cyst in hand [[id number]] 08/02/2011 Personal history of malignant neoplasm of [...] Status:Closed [facility] TERESITA RAWLS [facility] ([id number]) 1940 F Date Time Provider Department 11/09/24 [...] Fully Assessed Reason for Visit: Patient Question [5262] Cmt: (cont) Pt was then advised to [...] Endometrial cancer [C54.1] 03/19/2011 Cyst in hand [[id number]] 08/02/2011 Personal history of malignant neoplasm of [...] Status:Closed by PRERNA BONDS on 11/09/24 Normal [facility] CNPN Telephone (PTWS) AMBER KOROMA ([id number]) 1940 F Date Time Provider Department 11/09/24 [...] Endometrial cancer [C54.1] 03/19/2011 Cyst in hand [[id number]] 08/02/2011 Personal history of malignant neoplasm of [...] Status:Closed by PRERNA BONDS on [facility]09/24 [facility] ([id number]) 1940 F Date Time Provider Department 11/09/24 [...] Fully Assessed Reason for Visit: Patient Question [4825] Cmt: Therapist spoke with nurse in [facility] [facility]) who consulted physician on staff and [...] Endometrial cancer [C54.1] 03/19/2011 Cyst in hand [[id number]] 08/02/2011 Personal history of malignant neoplasm of [...] Status:Closed by PRERNA BONDS on 11/09/24 Normal [facility] CNTHERAPYon 10-30-2024 CNTHERAPY OT/PT/Speech Visit ( PTWS) AMBER KOROMA ([id number]) 1940 F Date Time Provider Department 10/30/24 2:45 PM ISAHUSSAINPRERNA PTWS Date Time Provider Department Center 10/30/2024 2:45 PM [id number] BONDS PTWS [place] Reason for Visit: [...] 1,000 Units by mouth once daily. Normal [facility] CNTHERAPYon 09-25-2024 CNTHERAPY OT/PT/Speech Visit ( PTWS) AMBER KOROMA ([id number]) 1940 F Date Time Provider Department 09/25/24 2:45 PM PRERNA BONDS PTWS Date Time Provider Department Center 09/25/2024 2:45 PM [id number] BONDS PTWS [place] Reason for Visit: [...] 1,000 Units by mouth once daily. Normal [facility] [id number] 09-04-2024 [id number] HNO ID: [id number] Author: PRERNA BONDS PT Service: ? Author Type: Physical Therapist Type: [id number] Filed: 09/04/2024 16:39 Note Text: [facility] Physical Therapy Plan of Care Certification Patient Name: Amber Koroma : 1940 CC #: [id number] Date: 09/04/2024 To: Chhaya Stacy MD From [...] Patient to be seen for Therapeutic exercise (72564), Manual therapy (50581), Self-correction management (09067), Patient/Family/Caregiver Education PLAN FOR NEXT VISIT: Resume [...] reviewed the treatment plan for Amber Koroma, [facility] [id number] for the period of 09/17/24 -- 11/02/24, established on 09/04/2024. Signature certifies the need for therapy services. Normal [facility] CNTHERAPYon 09-04-2024 CNTHERAPY OT/PT/Speech Visit ( PTWS) AMBER KOROMA ([id number]) 1940 F Date Time Provider Department 09/04/24 2:45 PM PRERNA BONDS PTWS Date Time Provider Department Center 09/04/2024 2:45 PM [id number] BONDS PTWS [place] Reason for Visit: [...] by mouth once daily. Letter Text Normal [facility] Orthopedic Visit Reporton Orthopedic Visit Report [facility] [address] [place] [address] OFFICE VISIT Date of Service: 08/27/24 MR#: [id number] Acct: [id number] Name: AMBER KOROMA Rep #: [id number] : 1940 Provider: Dr. 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 Alphonso Newell MD 08/27/24 6433. Part of today???s visit was documented by [...] Performing Provider: Alphonso Newell MD Performing Location: [facility] Administered by: Alphonso (more content not included)... Normal [facility] Orthopedic Visit Reporton Orthopedic Visit Report [facility] [address] [place] [address] [place] [address] OFFICE VISIT Date of Service: 08/21/24 MR#: [id number] Acct: [id number] Name: AMBER KOROMA Rep #: [id number] : 1940 Provider: Dr. 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 Normal [facility] BNP,B-Type NATRIURETIC PEPTI Marifer 08-12-2024 Natriuretic peptide B (Bld) [Mass/Vol] 182.0 pg/mL High 0-100 [facility] Comment on above: Performed By: #### L 503.6681 ####[facility] [address] [place], [address] Absolute neutrophil countOrd ered By: Tyler Benitez on 08-11-2024 Neutrophils (Bld) [#/Vol] 4.2 10*3/uL 2.0-7.7 [facility] Albumin to globulin ratioOrd ered By: Tyler Benitez on 08-11-2024 Albumin/Globulin [Mass ratio] 0.8 {ratio} Low 0.9-2.4 [facility] BNP (brain natriuretic pepti de measurement)Ordered By: Tyler Benitez on 08-11-2024 Natriuretic peptide B (Bld) [Mass/Vol] 182.0 pg/mL High 0-100 [facility] Basophil percentageOrdered B y: Tyler Benitez on 08-11-2024 Basophils/100 WBC (Bld) 0.6 % 0-1 [facility] Bilirubin, totalOrdered By: Tyler Benitez on 08-11-2024 Bilirubin [Mass/Vol] 0.30 mg/dL 0.20-1.00 [facility] Comment on above: For patients on eltr ombopag therapy, use of Dimension [place] TBIL is not recommended. Blood urea nitrogen (BUN)/cr eatinine ratioOrdered By: Tyler Benitez on 08-11-2024 Urea nitrogen/Creatinine [Mass ratio] 16.0 mg/mg 10-20 [facility] CBC W/Diff, Automatedon 07-26 Absolute Lymph 1.51 X10 3/uL Normal 0.83-4.51 [facility] Comment on above: Order Comment: Order Date: 08/11/24 Order Info: 0184-1 - CBCD Performed By: #### L 500.4050, L100.0100 #### [facility] [address] [place], [address] Absolute Neut 4.2 X10 3/uL Normal 2.0-7.7 [facility] Comment on above: Order Comment: Order Date: 08/11/24 Order Info: 018- - CBCD Performed By: #### L 500.4050, L100.0100 #### [facility] [address] [place], [address] Basophils/100 WBC (Bld) 0.6 % Normal 0-1 [facility] Comment on above: Order Comment: Order Date: 08/11/24 Order Info: 018-1 - CBCD Performed By: #### L 500.4050, L100.0100 #### [facility] [address] [place], [address] Eosinophils/100 WBC (Bld) 3.2 % Normal 0-5 [facility] Comment on above: Order Comment: Order Date: 08/11/24 Order Info: 018-1 - CBCD Performed By: #### L 500.4050, L100.0100 #### [facility] [address] [place], [address] Erythrocyte distribution width (RBC) [Ratio] 13.7 % Normal 11.6-14.6 [facility] Comment on above: Order Comment: Order Date: 08/11/24 Order Info: 0184-1 - CBCD Performed By: #### L 500.4050, L100.0100 #### [facility] [address] [place], [address] Hematocrit (Bld) [Volume fraction] 39.7 % Normal 37-47 [facility] Comment on above: Order Comment: Order Date: 08/11/24 Order Info: 018- - CBCD Performed By: #### L 500.4050, L100.0100 #### [facility] [address] [place], [address] Hemoglobin (Bld) [Mass/Vol] 12.3 g/dL Normal 12.0-15.0 [facility] Comment on above: Order Comment: Order Date: 08/11/24 Order Info: 018- - CBCD Performed By: #### L 500.4050, L100.0100 #### [facility] [address] [place], [address] IG% 0.000 Normal 0.0-0.9 [facility] Comment on above: Order Comment: Order Date: 08/11/24 Order Info: 018- - CBCD Result Comment: IG% - Immature Granulocytes (promyelocytes, myelocytes and metamyelocytes) > 1% indicates that a LEFT SHIFT is Present. Performed By: #### L 500.4050, L100.0100 #### [facility] [address] [place], [address] Lymphocytes/100 WBC (Bld) 23.2 % Normal 19-41 [facility] Comment on above: Order Comment: Order Date: 08/11/24 Order Info: 018- - CBCD Performed By: #### L 500.4050, L100.0100 #### [facility] [address] [place], [address] MCH (RBC) [Entitic mass] 27.5 pg Normal 27.0-32.0 [facility] Comment on above: Order Comment: Order Date: 08/11/24 Order Info: 0184- - CBCD Performed By: #### L 500.4050, L100.0100 #### [facility] [address] [place], [address] MCHC (RBC) [Mass/Vol] 31.0 g/dL Low 32-36 [facility] Comment on above: Order Comment: Order Date: 08/11/24 Order Info: 0184-1 - CBCD Performed By: #### L 500.4050, L100.0100 #### [facility] [address] [place], [address] MCV (RBC) [Entitic vol] 88.6 fL Normal 81-99 [facility] Comment on above: Order Comment: Order Date: 08/11/24 Order Info: 0184-1 - CBCD Performed By: #### L 500.4050, L100.0100 #### [facility] [address] [place], [address] Monocytes/100 WBC (Bld) 8.6 % Normal 0-10 [facility] Comment on above: Order Comment: Order Date: 08/11/24 Order Info: 0184-1 - CBCD Performed By: #### L 500.4050, L100.0100 #### [facility] [address] [place], [address] Neutrophils/100 WBC (Bld) 64.4 % Normal 47-70 [facility] Comment on above: Order Comment: Order Date: 08/11/24 Order Info: 0184-1 - CBCD Performed By: #### L 500.4050, L100.0100 #### [facility] [address] [place], [address] Nucleated RBC (Bld) [#/Vol] 0 10*3/uL Normal 0-5 [facility] Comment on above: Order Comment: Order Date: 08/11/24 Order Info: 0184-1 - CBCD Performed By: #### L 500.4050, L100.0100 #### [facility] [address] [place], [address] Platelet mean volume (Bld) [Entitic vol] 10.5 fL Normal 6.2-12.0 [facility] Comment on above: Order Comment: Order Date: 08/11/24 Order Info: 0184-1 - CBCD Performed By: #### L 500.4050, L100.0100 #### [facility] [address] [place], [address] Platelets (Bld) [#/Vol] 220 10*3/uL Normal 150-450 [facility] Comment on above: Order Comment: Order Date: 08/11/24 Order Info: 0184-1 - CBCD Performed By: #### L 500.4050, L100.0100 #### [facility] [address] [place], [address] RBC (Bld) [#/Vol] 4.48 10*6/uL Normal 4.2-5.4 [facility] Comment on above: Order Comment: Order Date: 08/11/24 Order Info: 0184-1 - CBCD Performed By: #### L 500.4050, L100.0100 #### [facility] [address] [place], [address] RDW SD 44.5 fl High 35.1-43.9 [facility] Comment on above: Order Comment: Order Date: 08/11/24 Order Info: 0184-1 - CBCD Performed By: #### L 500.4050, L100.0100 #### [facility] [address] [place], [address] WBC (Bld) [#/Vol] 6.5 10*3/uL Normal 4.4-11.0 [facility] Comment on above: Order Comment: Order Date: 08/11/24 Order Info: 0184-1 - CBCD Performed By: #### L 500.4050, L100.0100 #### [facility] [address] [place], [address] Carbon dioxide measurementOr dered By: Tyler Benitez on 08-11-2024 CO2 [Moles/Vol] 27.0 mmol/L 21.0-32.0 [facility] Chloride measurementOrdered By: Tyler Benitez on 08-11-2024 Chloride [Moles/Vol] 108 mmol/L High 98-107 [facility] Comprehensive Metabolic Prof ilon 08-11-2024 Albumin [Mass/Vol] 3.2 g/dL Normal 3.2-5.0 [facility] Comment on above: Order Comment: Order Date: 08/11/24 Order Info: 0786-1 - CMP Performed By: #### L 500.4050, L100.0100 #### [facility] [address] [place], [address] Albumin/Globulin [Mass ratio] 0.8 {ratio} Low 0.9-2.4 [facility] Comment on above: Order Comment: Order Date: 08/11/24 Order Info: 0786-1 - CMP Performed By: #### L 500.4050, L100.0100 #### [facility] [address] [place], [address] ALK P 86 U/L Normal 45-117 [facility] Comment on above: Order Comment: Order Date: 08/11/24 Order Info: 0786-1 - CMP Performed By: #### L 500.4050, L100.0100 #### [facility] [address] [place], [address] ALT [Catalytic activity/Vol] 13 U/L Normal 13-56 [facility] Comment on above: Order Comment: Order Date: 08/11/24 Order Info: 0786-1 - CMP Performed By: #### L 500.4050, L100.0100 #### [facility] [address] [place], [address] AST [Catalytic activity/Vol] 13 U/L Low 15-37 [facility] Comment on above: Order Comment: Order Date: 08/11/24 Order Info: 0786-1 - CMP Performed By: #### L 500.4050, L100.0100 #### [facility] [address] [place], [address] Bilirubin [Mass/Vol] 0.30 mg/dL Normal 0.20-1.00 [facility] Comment on above: Order Comment: Order Date: 08/11/24 Order Info: 0786-1 - CMP Result Comment: For patients on eltrombopag therapy, use of Dimension [place] TBIL is not recommended. Performed By: #### L 500.4050, L100.0100 #### [facility] [address] [place], [address] BUN/CRE 16.0 RATIO Normal 10-20 [facility] Comment on above: Order Comment: Order Date: 08/11/24 Order Info: 0786-1 - CMP Performed By: #### L 500.4050, L100.0100 #### [facility] [address] [place], [address] CA,Total 9.6 mg/dL Normal 8.5-10.1 [facility] Comment on above: Order Comment: Order Date: 08/11/24 Order Info: 0786-1 - CMP Performed By: #### L 500.4050, L100.0100 #### [facility] [address] [place], [address] Chloride [Moles/Vol] 108 mmol/L High 98-107 [facility] Comment on above: Order Comment: Order Date: 08/11/24 Order Info: 0786-1 - CMP Performed By: #### L 500.4050, L100.0100 #### [facility] [address] [place], [address] CO2 [Moles/Vol] 27.0 mmol/L Normal 21.0-32.0 [facility] Comment on above: Order Comment: Order Date: 08/11/24 Order Info: 0786-1 - CMP Performed By: #### L 500.4050, L100.0100 #### [facility] [address] [place], [address] Creatinine [Mass/Vol] 1.00 mg/dL Normal 0.55-1.02 [facility] Comment on above: Order Comment: Order Date: 08/11/24 Order Info: 0786-1 - CMP Result Comment: The validity of the calculated GFR GFRAA in patients over 70 years has not been determined. Clinical correlation is essential. Performed By: #### L 500.4050, L100.0100 #### [facility] [address] [place], [address] EST GFR - AA 68 mL/min Normal >60 [facility] Comment on above: Order Comment: Order Date: 08/11/24 Order Info: 0786-1 - CMP Result Comment: Afri can Turkish GFR Calc Performed By: #### L 500.4050, L100.0100 #### [facility] [address] [place], [address] GAP 4 Low 5-15 [facility] Comment on above: Order Comment: Order Date: 08/11/24 Order Info: 0786-1 - CMP Performed By: #### L 500.4050, L100.0100 #### [facility] [address] [place], [address] GFR/1.73 sq M.predicted among non-blacks MDRD (S/P/Bld) [Vol rate/Area] 56 mL/min/{1.73_m2} Low >60 [facility] Comment on above: Order Comment: Order Date: 08/11/24 Order Info: 0786-1 - CMP Result Comment: Non- GFR Calc Performed By: #### L 500.4050, L100.0100 #### [facility] [address] [place], [address] Globulin (S) [Mass/Vol] 4.2 g/dL Normal 2.2-4.2 [facility] Comment on above: Order Comment: Order Date: 08/11/24 Order Info: 0786-1 - CMP Performed By: #### L 500.4050, L100.0100 #### [facility] [address] [place], [address] Glucose [Mass/Vol] 91 mg/dL Normal 74-106 [facility] Comment on above: Order Comment: Order Date: 08/11/24 Order Info: 0786-1 - CMP Performed By: #### L 500.4050, L100.0100 #### [facility] [address] [place], [address] Potassium [Moles/Vol] 3.9 mmol/L Normal 3.5-5.1 [facility] Comment on above: Order Comment: Order Date: 08/11/24 Order Info: 0786-1 - CMP Performed By: #### L 500.4050, L100.0100 #### [facility] [address] [place], [address] Sodium [Moles/Vol] 139 mmol/L Normal 136-145 [facility] Comment on above: Order Comment: Order Date: 08/11/24 Order Info: 0786-1 - CMP Performed By: #### L 500.4050, L100.0100 #### [facility] [address] [place], [address] T PROT 7.4 g/dL Normal 6.4-8.2 [facility] Comment on above: Order Comment: Order Date: 08/11/24 Order Info: 0786-1 - CMP Performed By: #### L 500.4050, L100.0100 #### [facility] [address] [place], [address] Urea nitrogen [Mass/Vol] 16 mg/dL Normal 7-18 [facility] Comment on above: Order Comment: Order Date: 08/11/24 Order Info: 0786-1 - CMP Performed By: #### L 500.4050, L100.0100 #### [facility] [address] [place], [address] Eosinophil percentageOrdered By: Tyler Benitez on 08-11-2024 Eosinophils/100 WBC (Bld) 3.2 % 0-5 [facility] Erythrocyte distribution wid th ratioOrdered By: Tyler Benitez on 08-11-2024 Erythrocyte distribution width (RBC) [Ratio] 13.7 % 11.6-14.6 [facility] Erythrocyte distribution wid th standard deviationOrdered By: Tyler Benitez on 08-11-2024 Erythrocyte distribution width (RBC) [Entitic vol] 44.5 fL High 35.1-43.9 [facility] Estimated glomerular filtrat ion rate (GFR) AmericanOrdered By: Tyler Benitez on 08-11-2024 Estimated GFR (MDRD) Amer 68 mL/min >60 [facility] Comment on above: GFR Calc Glomerular filtration rate ( GFR) estimationOrdered By: Tyler Benitez on 08-11-2024 Estimated GFR (MDRD) Non-Af Amer 56 mL/min Low >60 [facility] Comment on above: Non- GFR Calc Glucose measurementOrdered B y: Tyler Benitez on 08-11-2024 Glucose [Mass/Vol] 91 mg/dL 74-106 [facility] Hematocrit Auto (Bld) [Volum e fraction]Ordered By: Tyler Benitez on 08-11-2024 Hematocrit (Bld) [Volume fraction] 39.7 % 37-47 [facility] Hemoglobin measurementOrdere d By: Tyler Benitez on 08-11-2024 Hemoglobin (Bld) [Mass/Vol] 12.3 g/dL 12.0-15.0 [facility] Immature granulocytes/100 WB C Auto (Bld)Ordered By: Tyler Benitez on 08-11-2024 Immature granulocytes/100 WBC (Bld) 0.000 % 0.0-0.9 [facility] Comment on above: IG% - Immature Granu locytes (promyelocytes, myelocytes and metamyelocytes) > 1% indicates that a LEFT SHIFT is Present. Laboratory - Chemistry and C hemistry - challengeOrdered By: Tyler Benitez on 08-11-2024 AST [Catalytic activity/Vol] 13 U/L Low 15-37 [facility] Lymphocytes Auto (Unsp spec) [#/Vol]Ordered By: Tyler Benitez on 08-11-2024 Lymphocytes (Bld) [#/Vol] 1.51 10*3/uL 0.83-4.51 [facility] Lymphocytes/100 WBC Auto (Un sp spec)Ordered By: Tyler Benitez on 08-11-2024 Lymphocytes/100 WBC (Bld) 23.2 % 19-41 [facility] MCV (mean corpuscular volume ) determinationOrdered By: Tyler Benitez on 08-11-2024 MCV (RBC) [Entitic vol] 88.6 fL 81-99 [facility] Mean corpuscular hemoglobin (MCH) determinationOrdered By: Tyler Benitez on 08-11-2024 MCH (RBC) [Entitic mass] 27.5 pg 27.0-32.0 [facility] Mean corpuscular hemoglobin concentration (MCHC) determinationOrdered By: Tyler Benitez on 08-11-2024 MCHC (RBC) [Mass/Vol] 31.0 g/dL Low 32-36 [facility] Mean platelet volume determi nationOrdered By: Tyler Benitez on 08-11-2024 Platelet mean volume (Bld) [Entitic vol] 10.5 fL 6.2-12.0 [facility] Monocyte percentageOrdered B y: Tyler Benitez on 08-11-2024 Monocytes/100 WBC (Bld) 8.6 % 0-10 [facility] Neutrophil percentageOrdered By: Tyler Benitez on 08-11-2024 Neutrophils/100 WBC (Bld) 64.4 % 47-70 [facility] Nucleated red blood cell per centageOrdered By: Tyler Benitez on 08-11-2024 Nucleated RBC/100 WBC (Bld) [Ratio] 0 % 0-5 [facility] Orthopedic Visit Reporton Orthopedic Visit Report [facility] [address] [place] [id number] OFFICE VISIT Date of Service: 08/11/24 MR#: [id number] Acct: [id number] Name: AMBER KOROMA Rep #: [id number] : 1940 Provider: Dr. Alphonso rock MD Age/Sex: 84/F [place] [facility] [place] Status: Signed with Addenda ADDENDUM by Angelita [...] Performing Provider: Alphonso Newell MD Performing Location: [facility] Administered by: Alphonso Newell MD on 08/11/24 16:10 Dose Route Admin Location Dispensed Lot Number Expiration Date [facility] Man ufacturer 20 mg intra-articular right knee 2 mL [id number] 07/20/25 [address]-1 [employer] Date cc: * Signed Intake Vital Signs 08/06/24 10:10 Height 4 ft 11 in Intake Visit Reasons: RIGHT KNEE Chief Complaint: Cough Allergies adhesive Allergy (Verified 07/14/24 13:19) Hives dicyclomine HCl (From Bentyl) Allergy (Verified 07/14/24 13:19) Hives aspirin Adverse Reaction (Verified 07/14/24 13:19) Low platelets Have you fallen in the past year?: No (?) [facility] Medical History Osteoarthritis of right knee Abdominal pain COVID-19 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 Normal [facility] Platelet countOrdered By: Silvio Benitez on 08-11-2024 Platelets (Bld) [#/Vol] 220 10*3/uL 150-450 [facility] Potassium measurementOrdered By: Tyler Benitez on 08-11-2024 Potassium [Moles/Vol] 3.9 mmol/L 3.5-5.1 [facility] RBC Auto (Bld) [#/Vol]Ordere d By: Tyler Benitez on 08-11-2024 RBC (Bld) [#/Vol] 4.48 10*6/uL 4.2-5.4 [facility] Serum anion gap measurementO rdered By: Tyler Benitez on 08-11-2024 Anion gap [Moles/Vol] 4 mmol/L Low 5-15 [facility] Serum globulin measurementOr dered By: Tyler Benitez on 08-11-2024 Globulin (S) [Mass/Vol] 4.2 g/dL 2.2-4.2 [facility] Serum or plasma alanine welch otransferase (ALT) measurementOrdered By: Tyler Benitez on 08-11-2024 ALT [Catalytic activity/Vol] 13 U/L 13-56 [facility] Serum or plasma albumin lakeisha urement (mass/volume)Ordered By: Tyler Benitez on 08-11-2024 Albumin [Mass/Vol] 3.2 g/dL 3.2-5.0 [facility] Serum or plasma alkaline vania sphatase measurementOrdered By: Tyler Benitez on 08-11-2024 ALP [Catalytic activity/Vol] 86 U/L 45-117 [facility] Serum or plasma calcium lakeisha urement (mass/volume)Ordered By: Tyler Benitez on 08-11-2024 Calcium [Mass/Vol] 9.6 mg/dL 8.5-10.1 [facility] Serum or plasma creatinine m easurement (mass/volume)Ordered By: Tyler Benitez on 08-11-2024 Creatinine [Mass/Vol] 1.00 mg/dL 0.55-1.02 [facility] Comment on above: The validity of the calculated GFR & GFRAA in patients over 70 years has not been determined. Clinical correlation is essential. Serum or plasma urea nitroge n measurement (mass/volume)Ordered By: Tyler Benitez on 08-11-2024 Urea nitrogen [Mass/Vol] 16 mg/dL 7-18 [facility] Sodium levelOrdered By: Tyler Benitez on 08-11-2024 Sodium [Moles/Vol] 139 mmol/L 136-145 [facility] Total proteinOrdered By: Reyna Benitez on 08-11-2024 Protein [Mass/Vol] 7.4 g/dL 6.4-8.2 [facility] White blood cell (WBC) count Ordered By: Tyler Benitez on 08-11-2024 WBC (Bld) [#/Vol] 6.5 10*3/uL 4.4-11.0 [facility] [id number] 07-17-2024 [id number] O ID: [id number] Author: PRERNA BONDS PT Service: ? Author Type: Physical Therapist Type: [id number] Filed: 07/17/2024 17:12 Note Text: [facility] Physical Therapy Plan of Care Certification Patient Name: Amber Koroma : 1940 [facility] #: [id number] Date: 07/17/2024 To: Chhaya Stacy MD From [...] Patient to be seen for Therapeutic exercise (88425), Manual therapy (21613), Self-correction management (00527), Patient/Family/Caregiver Education PLAN FOR NEXT VISIT: LE volume measurements. Continue MLD and short-stretch bandaging. Facilitate pt obtaining inelastic wraps to improve self-management and skin condition (able to remove to bathe, etc.). For further details regarding this patient refer to the Physical Therapy electronically documented visit dated 07/17/2024. Provider Attestation I have reviewed the treatment plan for Amber Koroma, CC# [id number] for the period of 09/16/24 -- , established on 07/17/2024. Signature certifies the need for therapy services. Normal [facility] CNTHERAPYon 07-17-2024 CNTHERAPY OT/PT/Speech Visit ( PTWS) AMBER KOROMA ([id number]) 1940 F Date Time Provider Department 07/17/24 2:45 PM PRERNA BONDS PTWS Date Time Provider Department Center 07/17/2024 2:45 PM [id number] BONDS PTWS [place] Reason for Visit: [...] by mouth once daily. Letter Text Normal [facility] Orthopedic Visit Reporton Orthopedic Visit Report [facility] [address] [place] [address] OFFICE VISIT Date of Service: 07/14/24 MR#: [id number] Acct: [id number] Name: AMBER KOROMA Rep #: [id number] : 1940 Provider: Dr. 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 Normal [facility] CNTHERAPYon 07-10-2024 CNTHERAPY OT/PT/Speech Visit ( PTWS) AMBER KOROMA ([id number]) 1940 F Date Time Provider Department 07/10/24 2:45 PM PRERNA BONDS PTWS Date Time Provider Department Center 07/10/2024 2:45 PM [id number] BONDS PTWS [place] Reason for Visit: Physical Therapy [503] [...] 1,000 Units by mouth once daily. Normal [facility] CNTHERAPYon 06-24-2024 CNTHERAPY OT/PT/Speech Visit ( PTWS) AMBER KOROMA ([id number]) 1940 F Date Time Provider Department 06/24/24 4:00 PM VAMSHI PRERNA PTWS Date Time Provider Department Center 06/24/2024 4:00 PM [id number] PRERNA PTWS [place] Reason for Visit: [...] 1,000 Units by mouth once daily. Normal [facility] CNTHERAPYon 06-19-2024 CNTHERAPY OT/PT/Speech Visit ( PTWS) AMBER KOROMA ([id number]) 1940 F Date Time Provider Department 06/19/24 2:45 PM PRERNA BONDS PTWS Date Time Provider Department Center 06/19/2024 2:45 PM [id number] BONDS PTWS [place] Reason for Visit: [...] 1,000 Units by mouth once daily. Normal [facility] 06-12-2024 CNPN Telephone (PTWS) AMBER KOROMA ([id number]) 1940 F Date Time Provider Department 06/12/24 PRERNA BONDS PTWS During your visit today, we recorded the following information about you: Allergies As of Date: 06/12/2024 Noted Allergy Reaction ASPIRIN 09/30/2001 BENTYL (DICYCLOMINE HCL) 03/29/2011 4 - Hives MRI DYE (GADOLINIUM-CONTAINING CO*03/30/2023 12 - Shortness of Breath TAPE (ADHESIVE TAPE-SILICONES) 03/09/2019 2 - Rash Comments: rash Date Reviewed: 01/03/2024 Reviewed by: Tamym Adam, IRAM - Fully Assessed Reason for Visit: Returning Patient's Call [[phone]] Cmt: Returned pt's voicemail message requesting more PT visits and concern that her legs/feet are more swollen. Therapist reviewed the appts that were already scheduled with pt and offered an appt for 06/15 that became available today d/t can. Pt first stated she could only keep Saturday's visit (06/19) because her trailer tank truck driver can only take her on Fridays. Later, she said she would call her trailer tank truck driver to see if she could [...] Endometrial cancer [C54.1] 03/19/2011 Cyst in hand [[id number]] 08/02/2011 Personal history of malignant neoplasm of [...] Status:Closed by PRERNA BONDS on 06/12/24 Normal [facility] CNTHERAPYon 05-29-2024 CNTHERAPY OT/PT/Speech Visit ( PTWS) ABMER KOROMA ([id number]) 1940 F Date Time Provider Department 05/29/24 2:45 PM PRERNA BONDS PTWS Date Time Provider Department Center 05/29/2024 2:45 PM [id number] BONDS PTWS [place] Reason for Visit: [...] 1,000 Units by mouth once daily. Normal [facility] [id number] 05-25-2024 [id number] HNO ID: [id number] Author: PRERNA BONDS PT Service: ? Author Type: Physical Therapist Type: [id number] Filed: 05/25/2024 20:15 Note Text: [facility] Physical Therapy Plan of Care Certification Patient Name: Amber Koroma : 1940 CC #: [id number] Date: 05/22/2024 To: Tyler Benitez MD From [...] Patient to be seen for Therapeutic exercise (29476), Manual therapy (60763), Self-correction management (92529), Patient/Family/Caregiver Education PLAN FOR NEXT VISIT: Continue MLD and compression wrapping. measure leg volume next visit. Continue to facilitate pt obtaining self-managable compression prior to discharge end of May. For further details regarding this patient refer to the Physical Therapy electronically documented visit dated 05/22/2024. Provider Attestation I have reviewed the treatment plan for Amber KoromaMITESH# [id number] for the period of 04/17/24 -- 06/21/24, established on 05/22/2024. Signature certifies the need for therapy services. Normal [facility] CNTHERAPYon 05-22-2024 CNTHERAPY OT/PT/Speech Visit ( PTWS) AMBER KOROMA ([id number]) 1940 F Date Time Provider Department 05/22/24 2:45 PM PRERNA BONDS PTWS Date Time Provider Department Center 05/22/2024 2:45 PM [id number] BONDS PTWS [place] Reason for Visit: [...] once daily. Letter Text Letter Text Normal [facility] CNTHERAPYon 05-08-2024 CNTHERAPY OT/PT/Speech Visit ( PTWS) AMBER KOROMA ([id number]) 1940 F Date Time Provider Department 05/08/24 2:45 PM PRERNA BONDS PTWS Date Time Provider Department Center 05/08/2024 2:45 PM [id number] BONDS PTWS [place] Reason for Visit: [...] 1,000 Units by mouth once daily. Normal [facility] CNTHERAPYon 04-24-2024 CNTHERAPY OT/PT/Speech Visit ( PTWS) AMBER KOROMA ([id number]) 1940 F Date Time Provider Department 04/24/24 2:45 PM PRERNA BONDS PTWS Date Time Provider Department Center 04/24/2024 2:45 PM [id number] BONDS PTWS [place] Reason for Visit: [...] 1,000 Units by mouth once daily. Normal [facility] CNTHERAPYon 04-17-2024 CNTHERAPY OT/PT/Speech Visit ( PTWS) AMBER KOROMA ([id number]) 1940 F Date Time Provider Department 04/17/24 1:00 PM PRERNA BONDS PTWS Date Time Provider Department Center 04/17/2024 1:00 PM [id number] BONDS PTWS [place] Reason for Visit: [...] 1,000 Units by mouth once daily. Normal [facility] Absolute lymphocyte countOrd ered By: Tyler Benitez on 12-17-2023 Lymphocytes Auto (Unsp spec) [#/Vol] 0.86 10*3/uL 0.83-4.51 [facility] Automated lymphocyte count a s percentage of total leukocytesOrdered By: Tyler Benitez on 12-17-2023 Lymphocytes/100 WBC Auto (Unsp spec) 10.6 % 19-41 [facility] Basophil percentageOrdered B y: Tyler Benitez on 12-17-2023 Basophils/100 WBC (Bld) 0.4 % 0-1 [facility] Bilirubin [Mass/Vol] 0.40 mg/dL 0.20-1.00 [facility] Comment on above: For patients on eltr ombopag therapy, use of Dimension [place] TBIL is not recommended. Chloride [Moles/Vol] 108 mmol/L 98-107 [facility] Eosinophils/100 WBC (Bld) 1.9 % 0-5 [facility] Glucose [Mass/Vol] 113 mg/dL 74-106 [facility] Comment on above: Fasting Glucose resu lt from 100 to 125 mg/dL suggests IMPAIRED HOMEOSTASIS per A.D.A. criteria. Hemoglobin (Bld) [Mass/Vol] 11.7 g/dL 12.0-15.0 [facility] Monocytes/100 WBC (Bld) 9.6 % 0-10 [facility] Neutrophils (Bld) [#/Vol] 6.3 10*3/uL 2.0-7.7 [facility] Neutrophils/100 WBC (Bld) 77.3 % 47-70 [facility] Potassium [Moles/Vol] 3.8 mmol/L 3.5-5.1 [facility] Protein [Mass/Vol] 7.1 g/dL 6.4-8.2 [facility] Sodium [Moles/Vol] 140 mmol/L 136-145 [facility] WBC (Bld) [#/Vol] 8.1 10*3/uL 4.4-11.0 [facility] Determination of erythrocyte mean corpuscular volume (MCV)Ordered By: Tyler Benitez on 12-17-2023 MCV (RBC) [Entitic vol] 88.3 fL 81-99 [facility] Erythrocyte distribution wid th ratioOrdered By: Tyler Benitez on 12-17-2023 Erythrocyte distribution width (RBC) [Ratio] 14.5 % 11.6-14.6 [facility] Erythrocyte distribution wid th standard deviationOrdered By: Tyler Benitez on 12-17-2023 Erythrocyte distribution width (RBC) [Entitic vol] 46.5 fL 35.1-43.9 [facility] Hematocrit Auto (Bld) [Volum e fraction]Ordered By: Tyler Benitez on 12-17-2023 Hematocrit (Bld) [Volume fraction] 37.6 % 37-47 [facility] Immature granulocytes/100 WB C Auto (Bld)Ordered By: Tyler Benitez on 12-17-2023 Immature granulocytes/100 WBC (Bld) 0.200 % 0.0-0.9 [facility] Comment on above: IG% - Immature Granu locytes (promyelocytes, myelocytes and metamyelocytes) > 1% indicates that a LEFT SHIFT is Present. Laboratory - Chemistry and C hemistry - challengeOrdered By: Tyler Benitez on 12-17-2023 Albumin/Globulin [Mass ratio] 0.7 {ratio} 0.9-2.4 [facility] ALP [Catalytic activity/Vol] 86 U/L 45-117 [facility] ALT [Catalytic activity/Vol] 12 U/L 13-56 [facility] CO2 [Moles/Vol] 28.0 mmol/L 21.0-32.0 [facility] Globulin (S) [Mass/Vol] 4.2 g/dL 2.2-4.2 [facility] Magnesium [Mass/Vol] 2.3 mg/dL 1.6-2.6 [facility] Natriuretic peptide B (Bld) [Mass/Vol] 119.1 pg/mL 0-100 [facility] Urea nitrogen/Creatinine [Mass ratio] 12.9 mg/mg 10-20 [facility] - Hematology and Cell countsOrdered By: Tyler Benitez on 12-17-2023 MCH (RBC) [Entitic mass] 27.5 pg 27.0-32.0 [facility] MCHC (RBC) [Mass/Vol] 31.1 g/dL 32-36 [facility] Nucleated RBC/100 WBC (Bld) [Ratio] 0 % 0-5 [facility] Platelet mean volume (Bld) [Entitic vol] 10.3 fL 6.2-12.0 [facility] Platelets (Bld) [#/Vol] 187 10*3/uL 150-450 [facility] No Panel InformationOrdered By: Tyler Benitez on 12-17-2023 Estimated GFR (MDRD) Amer 57 mL/min >60 [facility] Comment on above: GFR Calc Estimated GFR (MDRD) Non-Af Amer 47 mL/min >60 [facility] Comment on above: Non- GFR Calc RBC Auto (Bld) [#/Vol]Ordere d By: Tyler Benitez on 12-17-2023 RBC (Bld) [#/Vol] 4.26 10*6/uL 4.2-5.4 [facility] Serum or plasma calcium lakeisha urement (mass/volume)Ordered By: Tyler Benitez on 12-17-2023 Calcium [Mass/Vol] 9.1 mg/dL 8.5-10.1 [facility] Serum or plasma creatinine m easurement (mass/volume)Ordered By: Tyler Benitez on 12-17-2023 Creatinine [Mass/Vol] 1.16 mg/dL 0.55-1.02 [facility] Comment on above: The validity of the calculated GFR & GFRAA in patients over 70 years has not been determined. Clinical correlation is essential. Serum or plasma urea nitroge n measurement (mass/volume)Ordered By: Tyler Benitez on 12-17-2023 Urea nitrogen [Mass/Vol] 15 mg/dL 7-18 [facility] Thin prep Papanicolaou smear with manual screeningOrdered By: Tyler Benitez on 12-17-2023 Thin prep Papanicolaou smear with manual screening 2.9 g/dL 3.2-5.0 [facility] Thin prep Papanicolaou smear with manual screening 12 U/L 15-37 [facility] Thin prep Papanicolaou smear with manual screening 4 5-15 [facility] No Panel Informationon 08-29 Influenza Types A,B Rapid (Clinic) Negative [facility] POC SARS CoV-2 Antigen Negative [facility] Absolute lymphocyte countOrd ered By: Tyler Benitez on 07-01-2023 Lymphocytes Auto (Unsp spec) [#/Vol] 1.24 10*3/uL 0.83-4.51 [facility] Basophil percentageOrdered B y: Tyler Benitez on 07-01-2023 Basophils/100 WBC (Bld) 0.9 % 0-1 [facility] Bilirubin [Mass/Vol] 0.20 mg/dL 0.20-1.00 [facility] Comment on above: For patients on eltr ombopag therapy, use of Dimension [place] TBIL is not recommended. Chloride [Moles/Vol] 105 mmol/L 98-107 [facility] Eosinophils/100 WBC (Bld) 2.5 % 0-5 [facility] Glucose [Mass/Vol] 94 mg/dL 74-106 [facility] Neutrophils (Bld) [#/Vol] 3.6 10*3/uL 2.0-7.7 [facility] Neutrophils/100 WBC (Bld) 63.7 % 47-70 [facility] Potassium [Moles/Vol] 3.9 mmol/L 3.5-5.1 [facility] Protein [Mass/Vol] 7.3 g/dL 6.4-8.2 [facility] Sodium [Moles/Vol] 139 mmol/L 136-145 [facility] WBC (Bld) [#/Vol] 5.6 10*3/uL 4.4-11.0 [facility] Blood erythrocytes count (nu mber/volume)Ordered By: Tyler Benitez on 07-01-2023 RBC (Bld) [#/Vol] 3.98 10*6/uL 4.2-5.4 [facility] Blood hemoglobin measurement (mass/volume)Ordered By: Tyler Benitez on 07-01-2023 Hemoglobin (Bld) [Mass/Vol] 11.1 g/dL 12.0-15.0 [facility] Blood lymphocytes/100 leukoc ytesOrdered By: Tyler Benitez on 07-01-2023 Lymphocytes/100 WBC (Bld) 22.0 % 19-41 [facility] Blood monocytes/100 leukocyt esOrdered By: Tyler Benitez on 07-01-2023 Monocytes/100 WBC (Bld) 10.5 % 0-10 [facility] Blood platelet mean volumeOr dered By: Tyler Benitez on 07-01-2023 Platelet mean volume (Bld) [Entitic vol] 10.3 fL 6.2-12.0 [facility] Determination of erythrocyte mean corpuscular volume (MCV)Ordered By: Tyler Benitez on 07-01-2023 MCV (RBC) [Entitic vol] 89.9 fL 81-99 [facility] Hematocrit Auto (Bld) [Volum e fraction]Ordered By: Tyler Benitez on 07-01-2023 Hematocrit (Bld) [Volume fraction] 35.8 % 37-47 [facility] - Chemistry and C hemistry - challengeOrdered By: Tyler Benitez on 07-01-2023 ALP [Catalytic activity/Vol] 83 U/L 45-117 [facility] ALT [Catalytic activity/Vol] 13 U/L 13-56 [facility] CO2 [Moles/Vol] 28.0 mmol/L 21.0-32.0 [facility] Globulin (S) [Mass/Vol] 4.4 g/dL 2.2-4.2 [facility] Magnesium [Mass/Vol] 2.5 mg/dL 1.6-2.6 [facility] Urea nitrogen/Creatinine [Mass ratio] 14.6 mg/mg 10-20 [facility] - Hematology and Cell countsOrdered By: Tyler Benitez on 07-01-2023 Erythrocyte distribution width (RBC) [Entitic vol] 50.4 fL 35.1-43.9 [facility] Erythrocyte distribution width (RBC) [Ratio] 15.2 % 11.6-14.6 [facility] Immature granulocytes/100 WBC (Bld) 0.400 % 0.0-0.9 [facility] Comment on above: IG% - Immature Granu locytes (promyelocytes, myelocytes and metamyelocytes) > 1% indicates that a LEFT SHIFT is Present. MCH (RBC) [Entitic mass] 27.9 pg 27.0-32.0 [facility] Nucleated RBC/100 WBC (Bld) [Ratio] 0 % 0-5 [facility] MCHC Auto (RBC) [Mass/Vol]Or dered By: Tyler Benitez on 07-01-2023 MCHC (RBC) [Mass/Vol] 31.0 g/dL 32-36 [facility] No Panel InformationOrdered By: Tyler Benitez on 07-01-2023 Estimated GFR (MDRD) Amer 71 mL/min >60 [facility] Comment on above: GFR Calc Estimated GFR (MDRD) Non-Af Amer 59 mL/min >60 [facility] Comment on above: Non- GFR Calc Platelets bldOrdered By: Reyna Benitez on 07-01-2023 Platelets (Bld) [#/Vol] 221 10*3/uL 150-450 [facility] Serum or plasma albumin lakeisha urement (mass/volume)Ordered By: Tyler Benitez on 07-01-2023 Albumin [Mass/Vol] 2.9 g/dL 3.2-5.0 [facility] Serum or plasma albumin/glob ulin mass ratioOrdered By: Tyler Benitez on 07-01-2023 Albumin/Globulin [Mass ratio] 0.7 {ratio} 0.9-2.4 [facility] Serum or plasma calcium lakeisha urement (mass/volume)Ordered By: Tyler Benitez on 07-01-2023 Calcium [Mass/Vol] 9.1 mg/dL 8.5-10.1 [facility] Serum or plasma creatinine m easurement (mass/volume)Ordered By: Tyler Benitez on 07-01-2023 Creatinine [Mass/Vol] 0.96 mg/dL 0.55-1.02 [facility] Comment on above: The validity of the calculated GFR & GFRAA in patients over 70 years has not been determined. Clinical correlation is essential. Serum or plasma urea nitroge n measurement (mass/volume)Ordered By: Tyler Benitez on 07-01-2023 Urea nitrogen [Mass/Vol] 14 mg/dL 7-18 [facility] Thin prep Papanicolaou smear with manual screeningOrdered By: Tyler Benitez on 07-01-2023 Thin prep Papanicolaou smear with manual screening 14 U/L 15-37 [facility] Thin prep Papanicolaou smear with manual screening 6 5-15 [facility] Basophil percentageOrdered B y: Tyler Benitez on 06-18-2023 Chloride [Moles/Vol] 105 mmol/L 98-107 [facility] Glucose [Mass/Vol] 99 mg/dL 74-106 [facility] Potassium [Moles/Vol] 4.3 mmol/L 3.5-5.1 [facility] Sodium [Moles/Vol] 138 mmol/L 136-145 [facility] Laboratory - Chemistry and C hemistry - challengeOrdered By: Tyler Benitez on 06-18-2023 CO2 [Moles/Vol] 28.0 mmol/L 21.0-32.0 [facility] Urea nitrogen/Creatinine [Mass ratio] 15.7 mg/mg 10-20 [facility] No Panel InformationOrdered By: Tyler Benitez on 06-18-2023 Estimated GFR (MDRD) Amer 40 mL/min >60 [facility] Comment on above: GFR Calc Estimated GFR (MDRD) Non-Af Amer 33 mL/min >60 [facility] Comment on above: Non- GFR Calc Serum or plasma calcium lakeisha urement (mass/volume)Ordered By: Tyler Benitez on 06-18-2023 Calcium [Mass/Vol] 9.3 mg/dL 8.5-10.1 [facility] Serum or plasma creatinine m easurement (mass/volume)Ordered By: Tyler Benitez on 06-18-2023 Creatinine [Mass/Vol] 1.59 mg/dL 0.55-1.02 [facility] Comment on above: The validity of the calculated GFR & GFRAA in patients over 70 years has not been determined. Clinical correlation is essential. Serum or plasma urea nitroge n measurement (mass/volume)Ordered By: Tyler Benitez on 06-18-2023 Urea nitrogen [Mass/Vol] 25 mg/dL 7-18 [facility] Thin prep Papanicolaou smear with manual screeningOrdered By: Tyler Benitez on 06-18-2023 Thin prep Papanicolaou smear with manual screening 5 5-15 [facility] Basophil percentageOrdered B y: Tyler Benitez on 06-10-2023 Chloride [Moles/Vol] 98 mmol/L 98-107 [facility] Glucose [Mass/Vol] 90 mg/dL 74-106 [facility] Potassium [Moles/Vol] 4.2 mmol/L 3.5-5.1 [facility] Sodium [Moles/Vol] 133 mmol/L 136-145 [facility] Laboratory - Chemistry and C hemistry - challengeOrdered By: Tyler Benitez on 06-10-2023 CO2 [Moles/Vol] 27.0 mmol/L 21.0-32.0 [facility] Magnesium [Mass/Vol] 2.8 mg/dL 1.6-2.6 [facility] Urea nitrogen/Creatinine [Mass ratio] 10.1 mg/mg 10-20 [facility] No Panel InformationOrdered By: Tyler Benitez on 06-10-2023 Estimated GFR (MDRD) Amer 17 mL/min >60 [facility] Comment on above: GFR Calc Estimated GFR (MDRD) Non-Af Amer 14 mL/min >60 [facility] Comment on above: Non- GFR Calc Serum or plasma calcium lakeisha urement (mass/volume)Ordered By: Tyler Benitez on 06-10-2023 Calcium [Mass/Vol] 9.5 mg/dL 8.5-10.1 [facility] Serum or plasma creatinine m easurement (mass/volume)Ordered By: Tyler Benitez on 06-10-2023 Creatinine [Mass/Vol] 3.36 mg/dL 0.55-1.02 [facility] Comment on above: The validity of the calculated GFR & GFRAA in patients over 70 years has not been determined. Clinical correlation is essential. Serum or plasma urea nitroge n measurement (mass/volume)Ordered By: Tyler Benitez on 06-10-2023 Urea nitrogen [Mass/Vol] 34 mg/dL 7-18 [facility] Thin prep Papanicolaou smear with manual screeningOrdered By: Tyler Benitez on 06-10-2023 Thin prep Papanicolaou smear with manual screening 8 5-15 [facility] Basophil percentageOrdered B y: Tyler Benitez on 06-03-2023 Chloride [Moles/Vol] 102 mmol/L 98-107 [facility] Glucose [Mass/Vol] 89 mg/dL 74-106 [facility] Potassium [Moles/Vol] 3.8 mmol/L 3.5-5.1 [facility] Sodium [Moles/Vol] 136 mmol/L 136-145 [facility] Laboratory - Chemistry and C hemistry - challengeOrdered By: Tyler Benitez on 06-03-2023 CO2 [Moles/Vol] 28.0 mmol/L 21.0-32.0 [facility] Urea nitrogen/Creatinine [Mass ratio] 18.7 mg/mg 10-20 [facility] No Panel InformationOrdered By: Tyler Benitez on 06-03-2023 Estimated GFR (MDRD) Amer 63 mL/min >60 [facility] Comment on above: GFR Calc Estimated GFR (MDRD) Non-Af Amer 52 mL/min >60 [facility] Comment on above: Non- GFR Calc Serum or plasma calcium lakeisha urement (mass/volume)Ordered By: Tyler Benitez on 06-03-2023 Calcium [Mass/Vol] 9.3 mg/dL 8.5-10.1 [facility] Serum or plasma creatinine m easurement (mass/volume)Ordered By: Tyler Benitez on 06-03-2023 Creatinine [Mass/Vol] 1.07 mg/dL 0.55-1.02 [facility] Comment on above: The validity of the calculated GFR & GFRAA in patients over 70 years has not been determined. Clinical correlation is essential. Serum or plasma urea nitroge n measurement (mass/volume)Ordered By: Tyler Benitez on 06-03-2023 Urea nitrogen [Mass/Vol] 20 mg/dL 7-18 [facility] Thin prep Papanicolaou smear with manual screeningOrdered By: Tyler Benitez on 06-03-2023 Thin prep Papanicolaou smear with manual screening 6 5-15 [facility] Absolute lymphocyte countOrd ered By: Sage Augustin on 05-24-2023 Lymphocytes Auto (Unsp spec) [#/Vol] 0.36 10*3/uL 0.83-4.51 [facility] Basophil percentageOrdered B y: Sage Augustin on 05-24-2023 Basophils/100 WBC (Bld) 0.5 % 0-1 [facility] Chloride [Moles/Vol] 108 mmol/L 98-107 [facility] Eosinophils/100 WBC (Bld) 2.5 % 0-5 [facility] Glucose [Mass/Vol] 100 mg/dL 74-106 [facility] Comment on above: Fasting Glucose resu lt from 100 to 125 mg/dL suggests IMPAIRED HOMEOSTASIS per A.D.A. criteria. Neutrophils (Bld) [#/Vol] 6.4 10*3/uL 2.0-7.7 [facility] Neutrophils/100 WBC (Bld) 85.4 % 47-70 [facility] Potassium [Moles/Vol] 4.6 mmol/L 3.5-5.1 [facility] Sodium [Moles/Vol] 138 mmol/L 136-145 [facility] WBC (Bld) [#/Vol] 7.5 10*3/uL 4.4-11.0 [facility] Blood erythrocytes count (nu mber/volume)Ordered By: Sage Augustin on 05-24-2023 RBC (Bld) [#/Vol] 4.14 10*6/uL 4.2-5.4 [facility] Blood hemoglobin measurement (mass/volume)Ordered By: Sage Augustin on 05-24-2023 Hemoglobin (Bld) [Mass/Vol] 11.5 g/dL 12.0-15.0 [facility] Blood lymphocytes/100 leukoc ytesOrdered By: Sage Augustin on 05-24-2023 Lymphocytes/100 WBC (Bld) 4.8 % 19-41 [facility] Blood manual differential co mment interpretation (narrative result)Ordered By: Sage Augustin on 05-24-2023 Manual differential comment Bryce (Bld) [Interp] COMMENT [facility] Comment on above: LYMPHOPENIA. Blood monocytes/100 leukocyt esOrdered By: Sage Augustin on 05-24-2023 Monocytes/100 WBC (Bld) 6.4 % 0-10 [facility] Blood platelet mean volumeOr dered By: Sage Augustin on 05-24-2023 Platelet mean volume (Bld) [Entitic vol] 9.8 fL 6.2-12.0 [facility] Determination of erythrocyte mean corpuscular volume (MCV)Ordered By: Sage Augustin on 05-24-2023 MCV (RBC) [Entitic vol] 90.3 fL 81-99 [facility] Hematocrit Auto (Bld) [Volum e fraction]Ordered By: Sage Augustin on 05-24-2023 Hematocrit (Bld) [Volume fraction] 37.4 % 37-47 [facility] Laboratory - Chemistry and C hemistry - challengeOrdered By: Sage Augustin on 05-24-2023 CO2 [Moles/Vol] 26.0 mmol/L 21.0-32.0 [facility] Urea nitrogen/Creatinine [Mass ratio] 15.3 mg/mg 10-20 [facility] Laboratory - Hematology and Cell countsOrdered By: Sage Augustin on 05-24-2023 Erythrocyte distribution width (RBC) [Entitic vol] 53.1 fL 35.1-43.9 [facility] Erythrocyte distribution width (RBC) [Ratio] 15.9 % 11.6-14.6 [facility] Immature granulocytes/100 WBC (Bld) 0.400 % 0.0-0.9 [facility] Comment on above: IG% - Immature Granu locytes (promyelocytes, myelocytes and metamyelocytes) > 1% indicates that a LEFT SHIFT is Present. MCH (RBC) [Entitic mass] 27.8 pg 27.0-32.0 [facility] Nucleated RBC/100 WBC (Bld) [Ratio] 0 % 0-5 [facility] MCHC Auto (RBC) [Mass/Vol]Or dered By: Sage Augustin on 05-24-2023 MCHC (RBC) [Mass/Vol] 30.7 g/dL 32-36 [facility] No Panel InformationOrdered By: Sage Augustin on 05-24-2023 Estimated Creatinine Clearance Calc 39.86 ml/min [facility] Estimated GFR (MDRD) Amer 47 mL/min >60 [facility] Comment on above: GFR Calc Estimated GFR (MDRD) Non-Af Amer 39 mL/min >60 [facility] Comment on above: Non- GFR Calc Platelets bldOrdered By: Katiuska Augustin on 05-24-2023 Platelets (Bld) [#/Vol] 216 10*3/uL 150-450 [facility] Serum or plasma calcium lakeisha urement (mass/volume)Ordered By: Sage Augustin on 05-24-2023 Calcium [Mass/Vol] 9.0 mg/dL 8.5-10.1 [facility] Serum or plasma creatinine m easurement (mass/volume)Ordered By: Sage Augustin on 05-24-2023 Creatinine [Mass/Vol] 1.37 mg/dL 0.55-1.02 [facility] Comment on above: The validity of the calculated GFR & GFRAA in patients over 70 years has not been determined. Clinical correlation is essential. Serum or plasma urea nitroge n measurement (mass/volume)Ordered By: Sage Augustin on 05-24-2023 Urea nitrogen [Mass/Vol] 21 mg/dL 7-18 [facility] Thin prep Papanicolaou smear with manual screeningOrdered By: Sage Augustin on 05-24-2023 Thin prep Papanicolaou smear with manual screening 4 5-15 [facility] Absolute lymphocyte countOrd ered By: Mariusz Waters on 04-16-2023 Lymphocytes Auto (Unsp spec) [#/Vol] 0.99 10*3/uL 0.83-4.51 [facility] Basophil percentageOrdered B y: Mariusz Waters on 04-16-2023 Basophil percentage 2.4 mg/dL 2.5-4.9 [facility] Basophils/100 WBC (Bld) 0.6 % 0-1 [facility] Chloride [Moles/Vol] 102 mmol/L 98-107 [facility] Eosinophils/100 WBC (Bld) 2.5 % 0-5 [facility] Glucose [Mass/Vol] 98 mg/dL 74-106 [facility] Neutrophils (Bld) [#/Vol] 4.3 10*3/uL 2.0-7.7 [facility] Neutrophils/100 WBC (Bld) 67.3 % 47-70 [facility] Potassium [Moles/Vol] 3.8 mmol/L 3.5-5.1 [facility] Sodium [Moles/Vol] 139 mmol/L 136-145 [facility] WBC (Bld) [#/Vol] 6.4 10*3/uL 4.4-11.0 [facility] Blood erythrocytes count (nu mber/volume)Ordered By: Mariusz Waters on 04-16-2023 RBC (Bld) [#/Vol] 3.52 10*6/uL 4.2-5.4 [facility] Blood hemoglobin measurement (mass/volume)Ordered By: Mariusz Waters on 04-16-2023 Hemoglobin (Bld) [Mass/Vol] 9.9 g/dL 12.0-15.0 [facility] Blood lymphocytes/100 leukoc ytesOrdered By: Mariusz Waters on 04-16-2023 Lymphocytes/100 WBC (Bld) 15.5 % 19-41 [facility] Blood monocytes/100 leukocyt esOrdered By: Mariusz Waters on 04-16-2023 Monocytes/100 WBC (Bld) 13.3 % 0-10 [facility] Blood platelet mean volumeOr dered By: Mariusz Waters on 04-16-2023 Platelet mean volume (Bld) [Entitic vol] 10.7 fL 6.2-12.0 [facility] Determination of erythrocyte mean corpuscular volume (MCV)Ordered By: Mariusz Waters on 04-16-2023 MCV (RBC) [Entitic vol] 89.2 fL 81-99 [facility] Hematocrit Auto (Bld) [Volum e fraction]Ordered By: Mariusz Waters on 04-16-2023 Hematocrit (Bld) [Volume fraction] 31.4 % 37-47 [facility] Laboratory - Chemistry and C hemistry - challengeOrdered By: Mariusz Waters on 04-16-2023 CO2 [Moles/Vol] 31.0 mmol/L 21.0-32.0 [facility] Urea nitrogen/Creatinine [Mass ratio] 11.3 mg/mg 10-20 [facility] Laboratory - Hematology and Cell countsOrdered By: Mariusz Waters on 04-16-2023 Erythrocyte distribution width (RBC) [Entitic vol] 48.6 fL 35.1-43.9 [facility] Erythrocyte distribution width (RBC) [Ratio] 15.1 % 11.6-14.6 [facility] Immature granulocytes/100 WBC (Bld) 0.800 % 0.0-0.9 [facility] Comment on above: IG% - Immature Granu locytes (promyelocytes, myelocytes and metamyelocytes) > 1% indicates that a LEFT SHIFT is Present. MCH (RBC) [Entitic mass] 28.1 pg 27.0-32.0 [facility] Nucleated RBC/100 WBC (Bld) [Ratio] 0 % 0-5 [facility] MCHC Auto (RBC) [Mass/Vol]Or dered By: Mariusz Waters on 04-16-2023 MCHC (RBC) [Mass/Vol] 31.5 g/dL 32-36 [facility] Comment on above: Delta: 29.6 on 04/15 No Panel InformationOrdered By: Mariusz Waters on 04-16-2023 Estimated Creatinine Clearance Calc 52.96 ml/min [facility] Estimated GFR (MDRD) Amer 89 mL/min >60 [facility] Comment on above: GFR Calc Estimated GFR (MDRD) Non-Af Amer 73 mL/min >60 [facility] Comment on above: Non- GFR Calc Platelets bldOrdered By: Mi Waters on 04-16-2023 Platelets (Bld) [#/Vol] 194 10*3/uL 150-450 [facility] Serum or plasma calcium lakeisha urement (mass/volume)Ordered By: Mariuzs Waters on 04-16-2023 Calcium [Mass/Vol] 8.8 mg/dL 8.5-10.1 [facility] Serum or plasma creatinine m easurement (mass/volume)Ordered By: Mariusz Waters on 04-16-2023 Creatinine [Mass/Vol] 0.79 mg/dL 0.55-1.02 [facility] Comment on above: The validity of the calculated GFR & GFRAA in patients over 70 years has not been determined. Clinical correlation is essential. Serum or plasma urea nitroge n measurement (mass/volume)Ordered By: Mariusz Waters on 04-16-2023 Urea nitrogen [Mass/Vol] 9 mg/dL 7-18 [facility] Thin prep Papanicolaou smear with manual screeningOrdered By: Mariusz Waters on 04-16-2023 Thin prep Papanicolaou smear with manual screening 6 5-15 [facility] Absolute lymphocyte countOrd ered By: Kikomichelle Pittman on 04-15-2023 Lymphocytes Auto (Unsp spec) [#/Vol] 0.95 10*3/uL 0.83-4.51 [facility] Basophil percentageOrdered B y: Kikomichelle Pittman on 04-15-2023 Basophil percentage 0 SEEN /hpf 0-5 [facility] Lactate [Moles/Vol] 1.1 mmol/L 0.4-2.0 [facility] Basophils/100 WBC (Bld) 0.8 % 0-1 [facility] Bilirubin [Mass/Vol] 0.50 mg/dL 0.20-1.00 [facility] Comment on above: For patients on eltr ombopag therapy, use of Dimension [place] TBIL is not recommended. Chloride [Moles/Vol] 100 mmol/L 98-107 [facility] Eosinophils/100 WBC (Bld) 3.6 % 0-5 [facility] Glucose [Mass/Vol] 91 mg/dL 74-106 [facility] Neutrophils (Bld) [#/Vol] 4.1 10*3/uL 2.0-7.7 [facility] Neutrophils/100 WBC (Bld) 66.9 % 47-70 [facility] Potassium [Moles/Vol] 4.2 mmol/L 3.5-5.1 [facility] Protein [Mass/Vol] 6.5 g/dL 6.4-8.2 [facility] Sodium [Moles/Vol] 136 mmol/L 136-145 [facility] WBC (Bld) [#/Vol] 6.1 10*3/uL 4.4-11.0 [facility] Bilirubin Test strip Ql (U)O rdered By: Kiko Pittman on 04-15-2023 Bilirubin Ql (U) Negative Negative [facility] Blood erythrocytes count (nu mber/volume)Ordered By: Kiko Pittman on 04-15-2023 RBC (Bld) [#/Vol] 3.82 10*6/uL 4.2-5.4 [facility] Blood hemoglobin measurement (mass/volume)Ordered By: Kiko Pittman on 04-15-2023 Hemoglobin (Bld) [Mass/Vol] 10.4 g/dL 12.0-15.0 [facility] Blood lymphocytes/100 leukoc ytesOrdered By: Kiko Pittman on 04-15-2023 Lymphocytes/100 WBC (Bld) 15.7 % 19-41 [facility] Blood manual differential co mment interpretation (narrative result)Ordered By: Kiko Pittman on 04-15-2023 Manual differential comment Bryce (Bld) [Interp] SCANNED [facility] Blood monocytes/100 leukocyt esOrdered By: Kiko Pittman on 04-15-2023 Monocytes/100 WBC (Bld) 12.0 % 0-10 [facility] Blood platelet mean volumeOr dered By: Kiko Pittman on 04-15-2023 Platelet mean volume (Bld) [Entitic vol] 11.1 fL 6.2-12.0 [facility] Determination of erythrocyte mean corpuscular volume (MCV)Ordered By: Kiko Pittman on 04-15-2023 MCV (RBC) [Entitic vol] 91.9 fL 81-99 [facility] Erythrocyte sedimentation ra teOrdered By: Mariusz Waters on 08-21-2023 ESR (Bld) [Velocity] 41 mm/h 0-30 [facility] Hematocrit Auto (Bld) [Volum e fraction]Ordered By: Kiko Pittman on 04-15-2023 Hematocrit (Bld) [Volume fraction] 35.1 % 37-47 [facility] Ketones Test strip Ql (U)Ord ered By: Kiko Pittman on 04-15-2023 Ketones Ql (U) Negative Negative [facility] Laboratory - Chemistry and C hemistry - challengeOrdered By: Kikomichelle Pittman on 04-15-2023 ALP [Catalytic activity/Vol] 76 U/L 45-117 [facility] ALT [Catalytic activity/Vol] 16 U/L 13-56 [facility] CO2 [Moles/Vol] 32.0 mmol/L 21.0-32.0 [facility] Globulin (S) [Mass/Vol] 4.2 g/dL 2.2-4.2 [facility] Urea nitrogen/Creatinine [Mass ratio] 11.7 mg/mg 10-20 [facility] Laboratory - Hematology and Cell countsOrdered By: Kikomichelle Pittman on 04-15-2023 Erythrocyte distribution width (RBC) [Entitic vol] 50.0 fL 35.1-43.9 [facility] Erythrocyte distribution width (RBC) [Ratio] 15.0 % 11.6-14.6 [facility] Immature granulocytes/100 WBC (Bld) 1.000 % 0.0-0.9 [facility] Comment on above: IG% - Immature Granu locytes (promyelocytes, myelocytes and metamyelocytes) > 1% indicates that a LEFT SHIFT is Present. MCH (RBC) [Entitic mass] 27.2 pg 27.0-32.0 [facility] Nucleated RBC/100 WBC (Bld) [Ratio] 0 % 0-5 [facility] MCHC Auto (RBC) [Mass/Vol]Or dered By: Kikomichelle Pittman on 04-15-2023 MCHC (RBC) [Mass/Vol] 29.6 g/dL 32-36 [facility] Mucus LM Ql (Urine sed)Order ed By: Kikomichelle Pittman on 04-15-2023 Mucus Ql (Urine sed) 0 SEEN /hpf [facility] Nitrite Test strip Ql (U)Ord ered By: Kiko Pittman on 04-15-2023 Nitrite Ql (U) Negative Negative [facility] No Panel InformationOrdered By: Kiko Pittman on 04-15-2023 Estimated GFR (MDRD) Amer 66 mL/min >60 [facility] Comment on above: GFR Calc Estimated GFR (MDRD) Non-Af Amer 54 mL/min >60 [facility] Comment on above: Non- GFR Calc Platelets bldOrdered By: Kiko Pittman on 04-15-2023 Platelets (Bld) [#/Vol] 169 10*3/uL 150-450 [facility] Protein Test strip Ql (U)Ord ered By: Kiko Pittman on 04-15-2023 Protein Ql (U) Negative Negative [facility] Serum or plasma C reactive p rotein measurement (mass/volume)Ordered By: Mariusz Waters on 04-15-2023 CRP [Mass/Vol] 14.90 mg/L 0.0-3.0 [facility] Comment on above: C-Reactive Protein ( CRP) provides useful information for thediagnosis, therapy and monitoring of inflammatory processesand associated diseases. For the evaluation of Relative Riskfor Cardiovascular Disease, a High Sensitivity CRP (HSCRP)should be ordered. Serum or plasma albumin lakeisha urement (mass/volume)Ordered By: Kiko Pittman on 04-15-2023 Albumin [Mass/Vol] 2.3 g/dL 3.2-5.0 [facility] Serum or plasma albumin/glob ulin mass ratioOrdered By: Kiko Pittman on 04-15-2023 Albumin/Globulin [Mass ratio] 0.5 {ratio} 0.9-2.4 [facility] Serum or plasma calcium lakeisha urement (mass/volume)Ordered By: Kiko Pittman on 04-15-2023 Calcium [Mass/Vol] 8.6 mg/dL 8.5-10.1 [facility] Serum or plasma creatinine m easurement (mass/volume)Ordered By: Kiko Pittman on 04-15-2023 Creatinine [Mass/Vol] 1.03 mg/dL 0.55-1.02 [facility] Comment on above: The validity of the calculated GFR & GFRAA in patients over 70 years has not been determined. Clinical correlation is essential. Serum or plasma urea nitroge n measurement (mass/volume)Ordered By: Kiko Pittman on 04-15-2023 Urea nitrogen [Mass/Vol] 12 mg/dL 7-18 [facility] Squamous epithelial cells de tection in urine sediment by light microscopyOrdered By: Kiko Pittman on 04-15-2023 Epithelial cells.squamous LM Ql (Urine sed) 0-5 SEEN /hpf 5-10 [facility] Thin prep Papanicolaou smear with manual screeningOrdered By: Kiko Pittman on 04-15-2023 Thin prep Papanicolaou smear with manual screening 22 U/L 15-37 [facility] Thin prep Papanicolaou smear with manual screening 4 5-15 [facility] Urine blood detectionOrdered By: Kiko Pittman on 04-15-2023 RBC Ql (U) Negative Negative [facility] RBC Ql (U) 0 SEEN /hpf 0-5 [facility] Urine clarityOrdered By: Kiko Pittman on 04-15-2023 Clarity (U) Sl. Cloudy Clear [facility] Urine color determinationOrd ered By: Kiko Pittman on 04-15-2023 Color (U) Yellow Yellow [facility] Urine glucose detectionOrder ed By: Kiko Pittman on 04-15-2023 Glucose Ql (U) 50 mg/dl Normal [facility] Urine leukocyte esterase det ection by dipstickOrdered By: Kiko Pittman on 04-15-2023 Leukocyte esterase Test strip Ql (U) 25 /ul Negative [facility] Urine pHOrdered By: Kiko torres on 04-15-2023 pH (U) 7.0 [pH] 5.0 - 8.0 [facility] Urine sediment bacteria coun t by microscopy (number/high power field)Ordered By: Kiko Pittman on 04-15-2023 Bacteria LM.HPF (Urine sed) [#/Area] 0 /[HPF] None Seen [facility] Urine specific gravity measu rementOrdered By: Kiko Pittman on 04-15-2023 Specific gravity (U) [Rel density] 1.005 1.002-1.03 0 [facility] Urobilinogen Auto test strip Ql (U)Ordered By: Kiko Pittman on 04-15-2023 Urobilinogen Ql (U) Normal mg/dl Normal [facility] Absolute lymphocyte countOrd ered By: Kiko Pittman on 04-04-2023 Lymphocytes Auto (Unsp spec) [#/Vol] 1.10 10*3/uL 0.83-4.51 [facility] Basophil percentageOrdered B y: Kiko Pittman on 04-04-2023 Basophils/100 WBC (Bld) 0.8 % 0-1 [facility] Chloride [Moles/Vol] 105 mmol/L 98-107 [facility] Eosinophils/100 WBC (Bld) 1.5 % 0-5 [facility] Glucose [Mass/Vol] 95 mg/dL 74-106 [facility] Neutrophils (Bld) [#/Vol] 4.5 10*3/uL 2.0-7.7 [facility] Neutrophils/100 WBC (Bld) 68.0 % 47-70 [facility] Potassium [Moles/Vol] 4.1 mmol/L 3.5-5.1 [facility] Sodium [Moles/Vol] 137 mmol/L 136-145 [facility] WBC (Bld) [#/Vol] 6.6 10*3/uL 4.4-11.0 [facility] Blood erythrocytes count (nu mber/volume)Ordered By: Kiko Pittman on 04-04-2023 RBC (Bld) [#/Vol] 3.42 10*6/uL 4.2-5.4 [facility] Blood hemoglobin measurement (mass/volume)Ordered By: Kiko Pittman on 04-04-2023 Hemoglobin (Bld) [Mass/Vol] 9.7 g/dL 12.0-15.0 [facility] Blood lymphocytes/100 leukoc ytesOrdered By: Kiko Pittman on 04-04-2023 Lymphocytes/100 WBC (Bld) 16.8 % 19-41 [facility] Blood monocytes/100 leukocyt esOrdered By: Kiko Pittman on 04-04-2023 Monocytes/100 WBC (Bld) 11.8 % 0-10 [facility] Blood platelet mean volumeOr dered By: Kiko Pittman on 04-04-2023 Platelet mean volume (Bld) [Entitic vol] 9.7 fL 6.2-12.0 [facility] Determination of erythrocyte mean corpuscular volume (MCV)Ordered By: Kiko Pittman on 04-04-2023 MCV (RBC) [Entitic vol] 91.8 fL 81-99 [facility] Hematocrit Auto (Bld) [Volum e fraction]Ordered By: Kiko Pittman on 04-04-2023 Hematocrit (Bld) [Volume fraction] 31.4 % 37-47 [facility] Laboratory - Chemistry and C hemistry - challengeOrdered By: Kikomichelle Pittman on 04-04-2023 CO2 [Moles/Vol] 24.0 mmol/L 21.0-32.0 [facility] Urea nitrogen/Creatinine [Mass ratio] 9.5 mg/mg 10-20 [facility] Laboratory - Hematology and Cell countsOrdered By: Kiko Pittman on 04-04-2023 Erythrocyte distribution width (RBC) [Entitic vol] 48.9 fL 35.1-43.9 [facility] Erythrocyte distribution width (RBC) [Ratio] 14.5 % 11.6-14.6 [facility] Immature granulocytes/100 WBC (Bld) 1.100 % 0.0-0.9 [facility] Comment on above: IG% - Immature Granu locytes (promyelocytes, myelocytes and metamyelocytes) > 1% indicates that a LEFT SHIFT is Present. MCH (RBC) [Entitic mass] 28.4 pg 27.0-32.0 [facility] Nucleated RBC/100 WBC (Bld) [Ratio] 0 % 0-5 [facility] MCHC Auto (RBC) [Mass/Vol]Or dered By: Kiko Pittman on 04-04-2023 MCHC (RBC) [Mass/Vol] 30.9 g/dL 32-36 [facility] No Panel InformationOrdered By: Kiko Pittman on 04-04-2023 Estimated Creatinine Clearance Calc 41.70 ml/min [facility] Estimated GFR (MDRD) Amer 47 mL/min >60 [facility] Comment on above: GFR Calc Estimated GFR (MDRD) Non-Af Amer 39 mL/min >60 [facility] Comment on above: Non- GFR Calc Platelets bldOrdered By: Kiko Pittman on 04-04-2023 Platelets (Bld) [#/Vol] 332 10*3/uL 150-450 [facility] Serum or plasma calcium lakeisha urement (mass/volume)Ordered By: Kiko Pittman on 04-04-2023 Calcium [Mass/Vol] 9.4 mg/dL 8.5-10.1 [facility] Serum or plasma creatinine m easurement (mass/volume)Ordered By: Kiko Pittman on 04-04-2023 Creatinine [Mass/Vol] 1.37 mg/dL 0.55-1.02 [facility] Comment on above: The validity of the calculated GFR & GFRAA in patients over 70 years has not been determined. Clinical correlation is essential. Serum or plasma urea nitroge n measurement (mass/volume)Ordered By: Kiko Pittman on 04-04-2023 Urea nitrogen [Mass/Vol] 13 mg/dL 7-18 [facility] Thin prep Papanicolaou smear with manual screeningOrdered By: Kiko Pittman on 04-04-2023 Thin prep Papanicolaou smear with manual screening 8 5-15 [facility] CBC panel Auto (Bld)on 04-01 Erythrocyte distribution width (RBC) [Ratio] 14.1 % Normal 11.5-15.0 [facility] Comment on above: Order Comment: Specveronica men Type: BLOOD SPECIMENOrdering Facility: [facility] Address: [address] [address] Performed By: #### 5 8410-2 ####[facility] [id number] [address] [place] Hematocrit (Bld) [Volume fraction] 26.8 % Low 36.0-46.0 [facility] Comment on above: Order Comment: Kareni men Type: BLOOD SPECIMENOrdering Facility: [facility] Address: [address] [address] Performed By: #### 5 8410-2 ####[facility]ORYCLIA [id number] [place] [address] [place] Hemoglobin (Bld) [Mass/Vol] 8.3 g/dL Low 11.5-15.5 [facility] Comment on above: Order Comment: Speci men Type: BLOOD SPECIMENOrdering Facility: [facility] Address: [address] [place] [address] Performed By: #### 5 8410-2 ####[facility] [id number] [address] MCH (RBC) [Entitic mass] 27.9 pg Normal 26.0-34.0 [facility] Comment on above: Order Comment: Speci men Type: BLOOD SPECIMENOrdering Facility: [facility] Address: [address] [place] [address] Performed By: #### 5 8410-2 ####[facility]ATORYCLIA [id number] [address] MCHC (RBC) [Mass/Vol] 31.0 g/dL Normal 30.5-36.0 [facility] Comment on above: Order Comment: Speci men Type: BLOOD SPECIMENOrdering Facility: [facility] Address: [address] [place] [address] Performed By: #### 5 8410-2 ####[facility]ORYCLIA [id number] [address] MCV (RBC) [Entitic vol] 90.2 fL Normal 80.0-100.0 [facility] Comment on above: Order Comment: Speci men Type: BLOOD SPECIMENOrdering Facility: [facility] Address: [address] [place] [address] Performed By: #### 5 8410-2 ####[facility]ATORYCLIA [id number] [address] Nucleated RBC (Bld) [#/Vol] 10*3/uL Normal <0.01 [facility] Comment on above: Order Comment: Speci men Type: BLOOD SPECIMENOrdering Facility: [facility] Address: [address] [place] [address] Performed By: #### 5 8410-2 ####[facility]ORATORYCLIA [id number] [place] [address] [place] Platelet mean volume (Bld) [Entitic vol] 10.2 fL Normal 9.0-12.7 [facility] Comment on above: Order Comment: Speci men Type: BLOOD SPECIMENOrdering Facility: [facility] Address: [address] [place] [address] Performed By: #### 5 8410-2 ####[facility]ORATORYCLIA [id number] [address] [place] Platelets (Bld) [#/Vol] 334 10*3/uL Normal 150-400 [facility] Comment on above: Order Comment: Speci men Type: BLOOD SPECIMENOrdering Facility: [facility] Address: [address] [place] [address] Performed By: #### 5 8410-2 ####[facility]ORYCLIA [id number] [address] RBC (Bld) [#/Vol] 2.97 10*6/uL Low 3.90-5.20 [facility] Comment on above: Order Comment: Speci men Type: BLOOD SPECIMENOrdering Facility: [facility] Address: [address] [place] [address] Performed By: #### 5 8410-2 ####[facility]ORYCLIA [id number] [address] WBC (Bld) [#/Vol] 6.11 10*3/uL Normal 3.70-11.00 [facility] Comment on above: Order Comment: Speci men Type: BLOOD SPECIMENOrdering Facility: [facility] Address: [address] [place] [address] Performed By: #### 5 8410-2 ####[facility]ATORYCLIA [id number] [address] CNDSon 04-01-2023 CNDS HNO ID: [id number] Author: Chhaya Stacy MD Service: Hospital Medicine [...] Chhaya Stacy MD Primary Care Provider: Tyler Bneitez MD My Medical Team Members: Treatment Team: Attending Provider: Chhaya Stacy MD Consulting: Willow Frank MD Primary Service: , [facility] Nurse Practitioner: Carmelita Myers APRN.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 They agreed to cone picker later this evening. Patient was cleared for discharge on levaquin with outpatient physical therapist f/up /PCP.Lisinopril was resumed at discharge .[facility] outpatient renal function test during f/up with pcp Will call if there is any need to change antibiotic based on results SUMMARY OF WHAT HAPPENED WHILE I WAS IN THE HOSPITAL: See below OTHER PROBLEMS/DIAGNOSIS: Principal Problem: Sepsis not present on admission due to left lower extremity cellulitis. Lower extremity edema Active Problems: Hypopotassemia (POA) VICTORINO (acute kidney injury) ([facility]) Leg ulcer, left, limited to breakdown of skin (HCC) At high risk for impaired skin integrity Resolved Problems: * No resolved hospital problems. * OPERATIONS PERFORMED WHILE IN THE HOSPITAL: None IMPORTANT TEST/PROCEDURES: X-ray tibia/fibula Lower extremity ultrasound Chest x-ray TEST RESULTS NOT AVAILABLE AT THIS TIME: The plan for following up on pending results below is you (more content not included)... [facility] CONSULTon 04-01-2023 CONSULT HNO ID: [id number] Author: Carmelita Myers APRN.CNP Service: Wound/Ostomy Author [...] treatment with wraps every Saturday in the [facility]. About 2 weeks ago she noticed LLE redness and pain and was treated at [facility] from 03/17-03/19/23 for [...] recent labs a (more content not included)... [facility] CONSULT PROGon 04-01-2023 CONSULT PROG HNO ID: [id number] Author: Tania Simeon RPh Service: Pharmacy Author [...] Tania Simeon RPh DATE/TIME: 04/01/2023 10:27 AM [facility] CONSULT PROG HNO ID: [id number] Author: Willow Frank MD Service: Infectious Disease [...] final until Authenticated by responsible provider. Normal [facility] Comprehensive metabolic 2000 panelon 04-01-2023 Albumin [Mass/Vol] 2.3 g/dL Low 3.9-4.9 [facility] Comment on above: Order Comment: Speci dank Type: BLOOD SPECIMEN Ordering Facility: [facility] Address: [address] [address] Performed By: #### L [id number] #### [facility] CLIA [id number] [address] OF [facility] ALP [Catalytic activity/Vol] 66 U/L Normal 34-123 [facility] Comment on above: Order Comment: Kareni dank Type: BLOOD SPECIMEN Ordering Facility: [facility] Address: [address] [address] Performed By: #### L [id number] #### [facility] CLIA [id number] [address] ALT [Catalytic activity/Vol] U/L Low 7-38 [facility] Comment on above: Order Comment: Speci men Type: BLOOD SPECIMEN Ordering Facility: [facility] Address: [address] [address] Performed By: #### L [id number] #### [facility] CLIA [id number] [address] [place] [address] [place] Anion gap [Moles/Vol] 8 mmol/L Low 9-18 [facility] Comment on above: Order Comment: Speci men Type: BLOOD SPECIMEN Ordering Facility: [facility] Address: [address] [address] Performed By: #### L [id number] #### [facility] CLIA [id number] [address] [place] AST [Catalytic activity/Vol] 13 U/L Normal 13-35 [facility] Comment on above: Order Comment: Speci men Type: BLOOD SPECIMEN Ordering Facility: [facility] Address: [address] [address] Performed By: #### L [id number] #### [facility] CLIA [id number] [address] [place] Bilirubin [Mass/Vol] 0.2 mg/dL Normal 0.2-1.3 [facility] Comment on above: Order Comment: Speci men Type: BLOOD SPECIMEN Ordering Facility: [facility] Address: [address] [address] Performed By: #### L [id number] #### [facility] CLIA [id number] [address] Calcium [Mass/Vol] 8.6 mg/dL Normal 8.5-10.2 [facility] Comment on above: Order Comment: Speci men Type: BLOOD SPECIMEN Ordering Facility: [facility] Address: [address] [address] Performed By: #### L [id number] #### [facility] CLIA [id number] [address] [place] [facility] Chloride [Moles/Vol] 105 mmol/L Normal 97-105 [facility] Comment on above: Order Comment: Specveronica men Type: BLOOD SPECIMEN Ordering Facility: [facility] Address: [address] [place] [address] Performed By: #### L [id number] #### [facility] CLIA [id number] [address] CO2 [Moles/Vol] 27 mmol/L Normal 22-30 [facility] Comment on above: Order Comment: Speci men Type: BLOOD SPECIMEN Ordering Facility: [facility] Address: [address] [place] [address] Performed By: #### L [id number] #### [facility] CLIA [id number] [address] Creatinine [Mass/Vol] 0.95 mg/dL Normal 0.58-0.96 [facility] Comment on above: Order Comment: Speci men Type: BLOOD SPECIMEN Ordering Facility: [facility] Address: [address] [place] [address] Performed By: #### L [id number] #### [facility] CLIA [id number] [address] ESTIMATED GLOMERULAR FILTRATION RATE 59 mL/min/1.73m??? Low >=60 [facility] Comment on above: Order Comment: Jean men Type: BLOOD SPECIMEN Ordering Facility: [facility] Address: [address] [place] [address] Result Comment: Harika mated Glomerular Filtration Rate [...] reflect actual GFR. Performed By: #### L [id number] #### [facility] CLIA [id number] [address] [place] [address] [place] Glucose [Mass/Vol] 88 mg/dL Normal 74-99 [facility] Comment on above: Order Comment: Jean weems Type: BLOOD SPECIMEN Ordering Facility: [facility] Address: [address] [place] [address] Result Comment: The [place] [employer] (ADA) provides guidance for cutoff [...] Standards of Medical Care in Diabetes 2016, [place] [employer]. Diabetes Care. 2016.39(Suppl 1). Performed By: #### L [id number] #### [facility] CLIA [id number] [address] [place] [address] [place] Potassium [Moles/Vol] 4.5 mmol/L Normal 3.7-5.1 [facility] Comment on above: Order Comment: Jean weems Type: BLOOD SPECIMEN Ordering Facility: [facility] Address: [address] [place] [address] Performed By: #### L [id number] #### [facility] CLIA [id number] [address] [place] [address] [place] Protein [Mass/Vol] 5.7 g/dL Low 6.3-8.0 [facility] Comment on above: Order Comment: Jean weems Type: BLOOD SPECIMEN Ordering Facility: [facility] Address: [address] [place] [address] Performed By: #### L [id number] #### [facility] CLIA [id number] [address] [place] [address] [place] Sodium [Moles/Vol] 140 mmol/L Normal 136-144 [facility] Comment on above: Order Comment: Kareni men Type: BLOOD SPECIMEN Ordering Facility: [facility] Address: [address] [place] [address] Performed By: #### L [id number], 1987-12 #### [facility] CLIA [id number] [address] STATES OF [facility] Urea nitrogen [Mass/Vol] 9 mg/dL Normal 7-21 [facility] Comment on above: Order Comment: Speci men Type: BLOOD SPECIMEN Ordering Facility: [facility] Address: [address] [place] [address] Performed By: #### L [id number], 1987-12 #### [facility] CLIA [id number] [address] [place] Magnesium SerPl-mCncon 04-01 Magnesium [Mass/Vol] 1.8 mg/dL Normal 1.7-2.3 [facility] Comment on above: Order Comment: Speci men Type: BLOOD SPECIMEN Ordering Facility: [facility] Address: [address] [place] [address] Performed By: #### L [id number], 1987-12 #### [facility] CLIA [id number] [address] [place] THERAPY NTon 04-01-2023 THERAPY NT HNO ID: [id number] Author: Ros Moore PT Service: Physical Therapy Author Type: Physical Therapist Type: Therapy (PT/OT/Speech/Resp) Filed: 04/01/2023 11:56 AM Note Text: Physical Therapy Evaluation SERVICE DATE: 04/01/2023 SERVICE TIME: 0950 to 1118 ROOM: [place] [address] Recommended Discharge Disposition: Home PT Recommended Discharge [...] unwell. 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 friend does all driving. denies falls.sleeps in [...] use, s (more content not included)... Normal [facility] CBC panel Auto (Bld)on 03-31 Erythrocyte distribution width (RBC) [Ratio] 14.1 % Normal 11.5-15.0 [facility] Comment on above: Order Comment: Speci men Type: BLOOD SPECIMEN Ordering Facility: [facility] Address: [address] [address] Performed By: #### L [id number] #### [facility] CLIA [id number] [address] [id number] [facility] Hematocrit (Bld) [Volume fraction] 27.2 % Low 36.0-46.0 [facility] Comment on above: Order Comment: Speci men Type: BLOOD SPECIMEN Ordering Facility: [facility] Address: [address] [place] [address] Performed By: #### L [id number] #### [facility] CLIA [id number] [address] [place] Hemoglobin (Bld) [Mass/Vol] 8.5 g/dL Low 11.5-15.5 [facility] Comment on above: Order Comment: Speci men Type: BLOOD SPECIMEN Ordering Facility: [facility] Address: [address] [place] [address] Performed By: #### L [id number] #### [facility] CLIA [id number] [address] OF [facility] MCH (RBC) [Entitic mass] 27.4 pg Normal 26.0-34.0 [facility] Comment on above: Order Comment: Speci men Type: BLOOD SPECIMEN Ordering Facility: [facility] Address: [address] [place] [address] Performed By: #### L [id number] #### [facility] CLIA [id number] [address] MCHC (RBC) [Mass/Vol] 31.3 g/dL Normal 30.5-36.0 [facility] Comment on above: Order Comment: Speci men Type: BLOOD SPECIMEN Ordering Facility: [facility] Address: [address] [place] [address] Performed By: #### L [id number] #### [facility] CLIA [id number] [address] MCV (RBC) [Entitic vol] 87.7 fL Normal 80.0-100.0 [facility] Comment on above: Order Comment: Speci men Type: BLOOD SPECIMEN Ordering Facility: [facility] Address: [address] [place] [address] Performed By: #### L [id number] #### [facility] CLIA [id number] [address] Nucleated RBC (Bld) [#/Vol] 10*3/uL Normal <0.01 [facility] Comment on above: Order Comment: Speci men Type: BLOOD SPECIMEN Ordering Facility: [facility] Address: [facility] [address] Performed By: #### L [id number], 1987-12 #### [facility] CLIA [id number] [address] [place] Platelet mean volume (Bld) [Entitic vol] 10.2 fL Normal 9.0-12.7 [facility] Comment on above: Order Comment: Speci men Type: BLOOD SPECIMEN Ordering Facility: [facility] Address: [address] [address] Performed By: #### L [id number] #### [facility] CLIA [id number] [address] [place] Platelets (Bld) [#/Vol] 374 10*3/uL Normal 150-400 [facility] Comment on above: Order Comment: Speci men Type: BLOOD SPECIMEN Ordering Facility: [facility] Address: [address] [address] Performed By: #### L [id number] #### [facility] CLIA [id number] [address] [place] [address] [place] RBC (Bld) [#/Vol] 3.10 10*6/uL Low 3.90-5.20 [facility] Comment on above: Order Comment: Speci men Type: BLOOD SPECIMEN Ordering Facility: [facility] Address: [address] Performed By: #### L [id number], 1987-12 #### [facility] CLIA [id number] [address] [place] WBC (Bld) [#/Vol] 7.27 10*3/uL Normal 3.70-11.00 [facility] Comment on above: Order Comment: Speci men Type: BLOOD SPECIMEN Ordering Facility: [facility] Address: [address] [place] [address] Performed By: #### L [id number] #### [facility] CLIA [id number] [address] [place] [address] [facility] [place] Comprehensive metabolic 2000 panelon 03-31-2023 Albumin [Mass/Vol] 2.4 g/dL Low 3.9-4.9 [facility] Comment on above: Order Comment: Speci men Type: BLOOD SPECIMEN Ordering Facility: [facility] Address: [address] [place] [address] Performed By: #### 4 091-5 #### [facility] CLIA [id number] [address] [place] [address] [facility] [place] ALP [Catalytic activity/Vol] 69 U/L Normal 34-123 [facility] Comment on above: Order Comment: Speci men Type: BLOOD SPECIMEN Ordering Facility: [facility] Address: [address] [place] [address] Performed By: #### 4 091-5 #### [facility] CLIA [id number] [address] ALT [Catalytic activity/Vol] 7 U/L Normal 7-38 [facility] Comment on above: Order Comment: Speci men Type: BLOOD SPECIMEN Ordering Facility: [facility] Address: [address] [place] [address] Performed By: #### 4 091-5 #### [facility] CLIA [id number] [address] Anion gap [Moles/Vol] 9 mmol/L Normal 9-18 [facility] Comment on above: Order Comment: Speci men Type: BLOOD SPECIMEN Ordering Facility: [facility] Address: [address] [address] Performed By: #### 4 091-5 #### [facility] CLIA [id number] [address] AST [Catalytic activity/Vol] 13 U/L Normal 13-35 [facility] Comment on above: Order Comment: Speci men Type: BLOOD SPECIMEN Ordering Facility: [facility] Address: [address] [place] [address] Performed By: #### 4 091-5 #### [facility] CLIA [id number] [address] [place] [address] [place] Bilirubin [Mass/Vol] 0.2 mg/dL Normal 0.2-1.3 [facility] Comment on above: Order Comment: Speci men Type: BLOOD SPECIMEN Ordering Facility: [facility] Address: [address] [place] [address] Performed By: #### 4 091-5 #### [facility] CLIA [id number] [address] [place] [address] [place] Calcium [Mass/Vol] 8.4 mg/dL Low 8.5-10.2 [facility] Comment on above: Order Comment: Speci men Type: BLOOD SPECIMEN Ordering Facility: [facility] Address: [address] [place] [address] Performed By: #### 4 091-5 #### [facility] CLIA [id number] [address] [place] Chloride [Moles/Vol] 104 mmol/L Normal 97-105 [facility] [place] Comment on above: Order Comment: Speci men Type: BLOOD SPECIMEN Ordering Facility: [facility] Address: [address] [place] [address] Performed By: #### 4 091-5 #### [facility] CLIA [id number] [address] [place] [address] [place] CO2 [Moles/Vol] 29 mmol/L Normal 22-30 [facility] Comment on above: Order Comment: Speci men Type: BLOOD SPECIMEN Ordering Facility: [facility] Address: [address] [place] [address] Performed By: #### 4 091-5 #### [facility] CLIA [id number] [address] [place] [address] [place] Creatinine [Mass/Vol] 0.99 mg/dL High 0.58-0.96 [facility] Comment on above: Order Comment: Speci men Type: BLOOD SPECIMEN Ordering Facility: [facility] Address: [address] [place] [address] Performed By: #### 4 091-5 #### [facility] CLIA [id number] [address] [place] [address] [place] ESTIMATED GLOMERULAR FILTRATION RATE 56 mL/min/1.73m??? Low >=60 [facility] Comment on above: Order Comment: Jean weems Type: BLOOD SPECIMEN Ordering Facility: [facility] Address: [address] [address] Result Comment: Harika mated Glomerular Filtration Rate [...] GFR. Performed By: #### 4 091-5 #### [facility] CLIA [id number] [address] [place] [address] [place] Glucose [Mass/Vol] 114 mg/dL High 74-99 [facility] Comment on above: Order Comment: Jean weems Type: BLOOD SPECIMEN Ordering Facility: [facility] Address: [address] [place] [address] Result Comment: The [place] Diabetes Association (ADA) provides guidance for cutoff [...] Standards of Medical Care in Diabetes 2016, [place] [employer]. Diabetes Care. 2016.39(Suppl 1). Performed By: #### 4 091-5 #### [facility] CLIA [id number] [address] [place] [address] [place] Potassium [Moles/Vol] 3.3 mmol/L Low 3.7-5.1 [facility] Comment on above: Order Comment: Jean weems Type: BLOOD SPECIMEN Ordering Facility: [facility] Address: [address] Performed By: #### 4 091-5 #### [facility] CLIA [id number] [address] [place] Protein [Mass/Vol] 5.8 g/dL Low 6.3-8.0 [facility] Comment on above: Order Comment: Speci men Type: BLOOD SPECIMEN Ordering Facility: [facility] Address: [address] [place] [address] Performed By: #### 4 091-5 #### [facility] CLIA [id number] [address] Sodium [Moles/Vol] 142 mmol/L Normal 136-144 [facility] Comment on above: Order Comment: Speci men Type: BLOOD SPECIMEN Ordering Facility: [facility] Address: [address] [place] [address] Performed By: #### 4 091-5 #### [facility] CLIA [id number] [address] Urea nitrogen [Mass/Vol] 12 mg/dL Normal 7-21 [facility] Comment on above: Order Comment: Speci men Type: BLOOD SPECIMEN Ordering Facility: [facility] Address: [address] [place] [address] Performed By: #### 4 091-5 #### [facility] CLIA [id number] [address] Magnesium SerPl-mCncon 03-31 Magnesium [Mass/Vol] 1.8 mg/dL Normal 1.7-2.3 [facility] Comment on above: Order Comment: Speci men Type: BLOOD SPECIMEN Ordering Facility: [facility] Address: [address] [place] [address] Performed By: #### 4 091-5 #### [facility] CLIA [id number] [address] OF [place] ALLIED HEALTHon 03-30-2023 ALLIED HEALTH HNO ID: [id number] Author: Anjali Pruett RT(Danitza) Service: ? Author [...] RT Waldo(R) March 30, 2023 9:04 AM [facility] Bacteria Bld Culton 03-30-20 23 Bacteria identified Cx Nom (Bld) CULTURE, BLOOD: No growth 5 days [facility] Comment on above: Performed By: #### 6 00-7 ####[facility] [id number] [address] Bacteria identified Cx Nom (Bld) CULTURE, BLOOD: No growth 5 days [facility] Comment on above: Performed By: #### 6 00-7 ####[facility] [id number] [address] [place] Bacteria Wnd Culton 03-30-20 [...] , Intermediate >.5 , Resistant >1 Abnormal [facility] Comment on above: Performed By: #### 6 462-6 ####[facility] [id number] [address] [place] CASE MGT INIT ASSES 2022 CASE MGT INIT ASS HNO ID: [id number] Author: Valery Roth RN Service: ? Author Type: Registered Nurse Type: Care Mgt Initial Assessment Filed: 03/30/2023 9:22 AM Note Text: CARE MANAGEMENT: ASSESSMENT AND DISCHARGE PLAN SERVICE DATE: March 30, 2023 SERVICE TIME: 9:16 AM trolley car mechanic spoke with patient at bedside to complete Care Management Assessment. Introduction made and role of Care Management explained. PCP: Tyler Benitez MD - Patient confirmed Primary Contact: Primary Emergency Contact: Patrizia John Address: [address] [place] [address] [place] Mobile Relation: Caregiver Secondary Emergency [...] Support: Other: See Comment Caregiver: Patrizia John [phone] - Patient states she was staying at [...] Patient Goal(s): Be able to go home [place] Explained: [place] Given: No (Discharge Needs: To [...] Bars at home. Discharge Pharmacy - [facility] confirmed by patient. Discharge Transportation: [place] Or Amy Baxter. dept to follow. SIGNATURE: Valery Roth RN PATIENT NAME: Amber Koroma DATE: March 30, 2023 TIME: 9:16 AM CONTACT #: [phone] Normal [facility] CBC panel Auto (Bld)on 03-30 Erythrocyte distribution width (RBC) [Ratio] 14.0 % Normal 11.5-15.0 [facility] Comment on above: Order Comment: Speci men Type: BLOOD SPECIMEN Ordering Facility: [facility] Address: [address] [place] [address] Performed By: #### 4 091-5 #### [facility] CLIA [id number] [address] OF [facility] Hematocrit (Bld) [Volume fraction] 25.1 % Low 36.0-46.0 [facility] Comment on above: Order Comment: Speci men Type: BLOOD SPECIMEN Ordering Facility: [facility] Address: [address] [address] Performed By: #### 4 091-5 #### [facility] CLIA [id number] [address] OF [facility] Hemoglobin (Bld) [Mass/Vol] 8.0 g/dL Low 11.5-15.5 [facility] Comment on above: Order Comment: Speci men Type: BLOOD SPECIMEN Ordering Facility: [facility] Address: [address] [place] [address] Performed By: #### 4 091-5 #### [facility] CLIA [id number] [address] MCH (RBC) [Entitic mass] 27.7 pg Normal 26.0-34.0 [facility] Comment on above: Order Comment: Speci men Type: BLOOD SPECIMEN Ordering Facility: [facility] Address: [address] [place] [address] Performed By: #### 4 091-5 #### [facility] CLIA [id number] [address] MCHC (RBC) [Mass/Vol] 31.9 g/dL Normal 30.5-36.0 [facility] Comment on above: Order Comment: Speci men Type: BLOOD SPECIMEN Ordering Facility: [facility] Address: [address] [place] [address] Performed By: #### 4 091-5 #### [facility] CLIA [id number] [address] MCV (RBC) [Entitic vol] 86.9 fL Normal 80.0-100.0 [facility] Comment on above: Order Comment: Speci men Type: BLOOD SPECIMEN Ordering Facility: [facility] Address: [address] [address] Performed By: #### 4 091-5 #### [facility] CLIA [id number] [address] [place] [address] [place] Nucleated RBC (Bld) [#/Vol] 10*3/uL Normal <0.01 [facility] Comment on above: Order Comment: Speci men Type: BLOOD SPECIMEN Ordering Facility: [facility] Address: [address] [address] Performed By: #### 4 091-5 #### [facility] CLIA [id number] [address] [place] [address] [place] Platelet mean volume (Bld) [Entitic vol] 10.3 fL Normal 9.0-12.7 [facility] Comment on above: Order Comment: Speci men Type: BLOOD SPECIMEN Ordering Facility: [facility] Address: [address] Performed By: #### 4 091-5 #### [facility] CLIA [id number] [address] [place] [address] [place] Platelets (Bld) [#/Vol] 338 10*3/uL Normal 150-400 [facility] Comment on above: Order Comment: Speci men Type: BLOOD SPECIMEN Ordering Facility: [facility] Address: [address] Performed By: #### 4 091-5 #### [facility] CLIA [id number] [address] [place] [address] [place] RBC (Bld) [#/Vol] 2.89 10*6/uL Low 3.90-5.20 [facility] Comment on above: Order Comment: Speci men Type: BLOOD SPECIMEN Ordering Facility: [facility] Address: [address] [address] Performed By: #### 4 091-5 #### [facility] CLIA [id number] [address] [id number] [place] WBC (Bld) [#/Vol] 6.96 10*3/uL Normal 3.70-11.00 [facility] Comment on above: Order Comment: Speci men Type: BLOOD SPECIMEN Ordering Facility: [facility] Address: [place] [address] Performed By: #### 4 091-5 #### [facility] CLIA [id number] [address] [place] [address] [facility] [place] CONSULTon 03-30-2023 CONSULT HNO ID: [id number] Author: Jamaal Holman APRN.ELECTROCARDIOGRAPH OPERATOR Service: Infectious Disease Author Type: Nurse Practitioner [...] on her LLE. Patient reportedly seen at [facility] on 03/17 with [...] c/d/i DATA: Diagnostic (more content not included)... [facility] CONSULT PROGon 03-30-2023 CONSULT PROG HNO ID: [id number] Author: Gayle Whitley RPh Service: Pharmacy Author [...] Gayle Whitley RPh DATE/TIME: 03/30/2023 5:00 PM [facility] CONSULT PROG HNO ID: [id number] Author: Gayle Whitley RPh Service: Pharmacy Author [...] pharmacy if there are questions. Gayle Whitley [facility] Comprehensive metabolic 2000 panelon 03-30-2023 Albumin [Mass/Vol] 2.2 g/dL Low 3.9-4.9 [facility] Comment on above: Order Comment: Specveronica weems Type: BLOOD SPECIMEN Ordering Facility: [facility] Address: [address] [place] [address] Performed By: #### L [id number] #### [facility] CLIA [id number] [address] ALP [Catalytic activity/Vol] 64 U/L Normal 34-123 [facility] Comment on above: Order Comment: Jean weems Type: BLOOD SPECIMEN Ordering Facility: [facility] Address: [address] [place] [address] Performed By: #### L [id number] #### [facility] CLIA [id number] [address] [place] ALT [Catalytic activity/Vol] 7 U/L Normal 7-38 [facility] Comment on above: Order Comment: Jean weems Type: BLOOD SPECIMEN Ordering Facility: [facility] Address: [address] [place] [address] Performed By: #### L [id number] #### [facility] CLIA [id number] [address] [place] [address] [place] Anion gap [Moles/Vol] 8 mmol/L Low 9-18 [facility] Comment on above: Order Comment: Speci men Type: BLOOD SPECIMEN Ordering Facility: [facility] Address: [address] [address] Performed By: #### L [id number], 1987-12 #### [facility] CLIA [id number] [address] [place] [address] [place] AST [Catalytic activity/Vol] 12 U/L Low 13-35 [facility] Comment on above: Order Comment: Speci men Type: BLOOD SPECIMEN Ordering Facility: [facility] Address: [address] [place] [address] Performed By: #### L [id number] #### [facility] CLIA [id number] [address] [place] [address] [place] Bilirubin [Mass/Vol] 0.3 mg/dL Normal 0.2-1.3 [facility] Comment on above: Order Comment: Speci men Type: BLOOD SPECIMEN Ordering Facility: [facility] Address: [address] [place] [address] Performed By: #### L [id number] #### [facility] CLIA [id number] [address] [place] [address] [place] Calcium [Mass/Vol] 8.2 mg/dL Low 8.5-10.2 [facility] Comment on above: Order Comment: Speci men Type: BLOOD SPECIMEN Ordering Facility: [facility] Address: [address] [place] [address] Performed By: #### L [id number] #### [facility] CLIA [id number] [address] [place] [address] [place] Chloride [Moles/Vol] 103 mmol/L Normal 97-105 [facility] Comment on above: Order Comment: Speci men Type: BLOOD SPECIMEN Ordering Facility: [facility] Address: [address] [place] [address] Performed By: #### L [id number] #### [facility] CLIA [id number] [address] [place] [address] [place] CO2 [Moles/Vol] 30 mmol/L Normal 22-30 [facility] Comment on above: Order Comment: Jean weems Type: BLOOD SPECIMEN Ordering Facility: [facility] Address: [address] [address] Performed By: #### L [id number] #### [facility] CLIA [id number] [address] STATES [facility] Creatinine [Mass/Vol] 1.14 mg/dL High 0.58-0.96 [facility] Comment on above: Order Comment: Jean weems Type: BLOOD SPECIMEN Ordering Facility: [facility] Address: [address] [address] Performed By: #### L [id number] #### [facility] CLIA [id number] [address] ESTIMATED GLOMERULAR FILTRATION RATE 48 mL/min/1.73m??? Low >=60 [facility] Comment on above: Order Comment: Jean weems Type: BLOOD SPECIMEN Ordering Facility: [facility] Address: [address] [place] [address] Result Comment: Harika mated Glomerular Filtration Rate [...] reflect actual GFR. Performed By: #### L [id number] #### [facility] CLIA [id number] [address] Glucose [Mass/Vol] 87 mg/dL Normal 74-99 [facility] Comment on above: Order Comment: Jean dank Type: BLOOD SPECIMEN Ordering Facility: [facility] Address: [address] [place] [address] Result Comment: The [place] Diabetes [employer] (ADA) provides guidance for cutoff [...] Standards of Medical Care in Diabetes 2016, [place] [employer]. Diabetes Care. 2016.39(Suppl 1). Performed By: #### L [id number] #### [facility] CLIA [id number] [address] Potassium [Moles/Vol] 3.3 mmol/L Low 3.7-5.1 [facility] Comment on above: Order Comment: Jean weems Type: BLOOD SPECIMEN Ordering Facility: [facility] Address: [address] [place] [address] Performed By: #### L [id number] #### [facility] CLIA [id number] [address] [place] [address] [place] Protein [Mass/Vol] 5.5 g/dL Low 6.3-8.0 [facility] Comment on above: Order Comment: Jean weems Type: BLOOD SPECIMEN Ordering Facility: [facility] Address: [address] [place] [address] Performed By: #### L [id number] #### [facility] CLIA [id number] [address] Sodium [Moles/Vol] 141 mmol/L Normal 136-144 [facility] Comment on above: Order Comment: Jean weems Type: BLOOD SPECIMEN Ordering Facility: [facility] Address: [address] [place] [address] Performed By: #### L [id number] #### [facility] CLIA [id number] [address] [place] Urea nitrogen [Mass/Vol] 14 mg/dL Normal 7-21 [facility] Comment on above: Order Comment: Jean weems Type: BLOOD SPECIMEN Ordering Facility: [facility] Address: [address] [place] [address] Performed By: #### L [id number], 1987-12 #### [facility] CLIA [id number] [address] [id number] [place] Creatinine Unsp time (U) [Ma ss/Vol]on 03-30-2023 Creatinine (U) [Mass/Vol] 89.0 mg/dL Normal 20.0-300.0 [facility] Comment on above: Order Comment: Speci men Type: BLOOD SPECIMEN Ordering Facility: [facility] Address: [address] [place] [address] Performed By: #### 4 091-5 #### [facility] CLIA [id number] [address] [place] ESR Westergren method (Bld) [Velocity]on 03-30-2023 ESR (Bld) [Velocity] 98 mm/h High 0-20 [facility] Comment on above: Order Comment: Speci men Type: BLOOD SPECIMENOrdering Facility: [facility] Address: [address] [place] [address] Performed By: #### 4 537-7 ####[facility] [id number] [address] OF [place] HISTORY PHYSICALon HISTORY PHYSICAL HNO ID: [id number] Author: Tu Greer DO Service: Hospital Medicine Author Type: Physician Type: HANDP Filed: 03/30/2023 3:15 AM Note Text: DEPARTMENT OF HOSPITAL MEDICINE HISTORY AND PHYSICAL EXAM SERVICE DATE: 03/30/2023 SERVICE TIME: 2:45 AM Primary Care Physician: Tyler Benitez MD NIGHT COVERAGE: Please page [facility] [place] [phone] for any issues or concerns Subjective CHIEF [...] painful and red. She was seen at [facility] and treated with antibiotics and discharged [...] of O (more content not included)... Normal [facility] Magnesium SerPl-mCncon 03-30 Magnesium [Mass/Vol] 2.0 mg/dL Normal 1.7-2.3 [facility] Comment on above: Order Comment: Speci men Type: BLOOD SPECIMEN Ordering Facility: [facility] Address: [address] [place] [address] Performed By: #### L [id number], 1987-12 #### [facility] CLIA [id number] [address] [place] [address] [place] UREA NITROGEN RND URon 03-30 Urea nitrogen [Mass/Vol] 476 mg/dL Normal 140-1500 [facility] Comment on above: Order Comment: Speci men Type: BLOOD SPECIMEN Ordering Facility: [facility] Address: [facility] [place] [address] Performed By: #### 4 091-5 #### [facility] CLIA [id number] [address] [place] [address] [place] US DVT LOWER [...] imaged segments of the left lower extremity. Rehabilitation Center Manager: ANGEL Transcribe Date/Time: Aug 5 2023 9:32A Dictated by : SHAYNA DALE MD This examination was interpreted and the report reviewed and electronically signed by: SHAYNA DALE MD on Mar 30 2023 9:34AM EST [id number] [facility] Vancomycin Frederick SerPl-mCncon 03-30-2023 Vancomycin random [Mass/Vol] 19.4 ug/mL Normal 10.0-20.0 [facility] Comment on above: Order Comment: Speci men Type: BLOOD SPECIMEN Ordering Facility: [facility] Address: [facility] [place] [address] Result Comment: Refe rence ranges and high/low indicator flags are provided as general guidelines only. The treating physician must determine appropriate target levels/dosing based on the specific clinical situation. Performed By: #### 4 091-5 #### [facility] CLIA [id number] [address] [place] [address] [facility] ALLIED HEALTHon 03-29-2023 ALLIED HEALTH HNO ID: [id number] Author: Amy Wall RT(R) Service: Radiology Author Type: Wet Mix Operator Type: Allied Health Filed: 03/29/2023 6:56 PM [...] WEST MirandaR) March 29, 2023 6:56 PM [facility] HEALTH HNO ID: [id number] Author: Wyand, Amy K, RT(R) Service: Radiology Author Type: Wet Mix Operator Type: Allied Health Filed: 03/29/2023 6:02 PM Note Text: @8081 this tech spoke to nurse about chest x ray images, a chest 2 v vs a 1 v and which would the doctor prefer, nurse will talk to doctor and get back to x ray on this matter. Normal [facility] Bacteria Bld Culton 03-29-20 Bacteria identified Cx Nom (Bld) CULTURE, BLOOD: No growth 6 days Normal [facility] Comment on above: Performed By: #### 6 00-7 ####[facility] [id number] [address] Bacteria identified Cx Nom (Bld) CULTURE, BLOOD: No growth 5 days Normal [facility] Comment on above: Performed By: #### 6 -7 ####[facility] [id number] [address] CBC W Auto Differential pane l (Bld)on 03-29-2023 Basophils (Bld) [#/Vol] 0.03 10*3/uL Normal <0.11 [facility] Comment on above: Order Comment: Speci men Type: BLOOD SPECIMEN Ordering Facility: [facility] Address: [address] [place] [address] Performed By: #### L [id number] #### [facility] CLIA [id number] [address] Basophils/100 WBC (Bld) 0.3 % Normal [facility] Comment on above: Order Comment: Speci men Type: BLOOD SPECIMEN Ordering Facility: [facility] Address: [address] [place] [address] Performed By: #### L [id number] #### [facility] CLIA [id number] [address] [place] Differential cell count method Nom (Bld) Auto [facility] Comment on above: Order Comment: Speci men Type: BLOOD SPECIMEN Ordering Facility: [facility] Address: [address] [place] [address] Performed By: #### L [id number] #### [facility] CLIA [id number] [address] [place] [address] [place] Eosinophils (Bld) [#/Vol] 0.08 10*3/uL Normal <0.46 [facility] Comment on above: Order Comment: Speci men Type: BLOOD SPECIMEN Ordering Facility: [facility] Address: [address] [place] [address] Performed By: #### L [id number] #### [facility] CLIA [id number] [address] [place] Eosinophils/100 WBC (Bld) 0.9 % Normal [facility] Comment on above: Order Comment: Speci men Type: BLOOD SPECIMEN Ordering Facility: [facility] Address: [address] [place] [address] Performed By: #### L [id number] #### [facility] CLIA [id number] [address] [place] Erythrocyte distribution width (RBC) [Ratio] 14.0 % Normal 11.5-15.0 [facility] Comment on above: Order Comment: Speci men Type: BLOOD SPECIMEN Ordering Facility: [facility] Address: [address] [place] [address] Performed By: #### L [id number] #### [facility] CLIA [id number] [address] [place] Hematocrit (Bld) [Volume fraction] 29.7 % Low 36.0-46.0 [facility] Comment on above: Order Comment: Speci men Type: BLOOD SPECIMEN Ordering Facility: [facility] Address: [address] [place] [address] Performed By: #### L [id number] #### [facility] CLIA [id number] [address] [place] Hemoglobin (Bld) [Mass/Vol] 9.3 g/dL Low 11.5-15.5 [facility] Comment on above: Order Comment: Speci men Type: BLOOD SPECIMEN Ordering Facility: [facility] Address: [address] [address] Performed By: #### L [id number] #### [facility] CLIA [id number] [address] Immature granulocytes (Bld) [#/Vol] 0.05 10*3/uL Normal <0.10 [facility] Comment on above: Order Comment: Speci men Type: BLOOD SPECIMEN Ordering Facility: [facility] Address: [address] [address] Performed By: #### L [id number] #### [facility] CLIA [id number] [address] Immature granulocytes/100 WBC (Bld) 0.6 % Normal [facility] Comment on above: Order Comment: Speci men Type: BLOOD SPECIMEN Ordering Facility: [facility] Address: [address] [place] [address] Performed By: #### L [id number] #### [facility] CLIA [id number] [address] Lymphocytes (Bld) [#/Vol] 0.82 10*3/uL Low 1.00-4.00 [facility] Comment on above: Order Comment: Speci men Type: BLOOD SPECIMEN Ordering Facility: [facility] Address: [address] [place] [address] Performed By: #### L [id number] #### [facility] CLIA [id number] [address] Lymphocytes/100 WBC (Bld) 9.0 % Normal [facility] Comment on above: Order Comment: Speci men Type: BLOOD SPECIMEN Ordering Facility: [facility] Address: [address] [place] [address] Performed By: #### L [id number] #### [facility] CLIA [id number] [address] OF [facility] MCH (RBC) [Entitic mass] 27.9 pg Normal 26.0-34.0 [facility] Comment on above: Order Comment: Speci men Type: BLOOD SPECIMEN Ordering Facility: [facility] Address: [address] [place] [address] Performed By: #### L [id number] #### [facility] CLIA [id number] [address] MCHC (RBC) [Mass/Vol] 31.3 g/dL Normal 30.5-36.0 [facility] Comment on above: Order Comment: Speci men Type: BLOOD SPECIMEN Ordering Facility: [facility] Address: [address] [address] Performed By: #### L [id number] #### [facility] CLIA [id number] [address] MCV (RBC) [Entitic vol] 89.2 fL Normal 80.0-100.0 [facility] Comment on above: Order Comment: Speci men Type: BLOOD SPECIMEN Ordering Facility: [facility] Address: [address] [place], [place] [address] Performed By: #### L [id number] #### [facility] CLIA [id number] [address] Monocytes (Bld) [#/Vol] 0.75 10*3/uL Normal <0.87 [facility] Comment on above: Order Comment: Speci men Type: BLOOD SPECIMEN Ordering Facility: [facility] Address: [address] Performed By: #### L [id number] #### [facility] CLIA [id number] [address] Monocytes/100 WBC (Bld) 8.3 % Normal [facility] Comment on above: Order Comment: Speci men Type: BLOOD SPECIMEN Ordering Facility: [facility] Address: [address] [address] Performed By: #### L [id number] #### [facility] CLIA [id number] [address] OF [place] Neutrophils (Bld) [#/Vol] 7.34 10*3/uL Normal 1.45-7.50 [facility] Comment on above: Order Comment: Speci men Type: BLOOD SPECIMEN Ordering Facility: [facility] Address: [address] [address] Performed By: #### L [id number], 1987-12 #### [facility] CLIA [id number] [address] [place] Neutrophils/100 WBC (Bld) 80.9 % Normal [facility] Comment on above: Order Comment: Speci men Type: BLOOD SPECIMEN Ordering Facility: [facility] Address: [address] [address] Performed By: #### L [id number] #### [facility] CLIA [id number] [address] [place] Nucleated RBC (Bld) [#/Vol] 10*3/uL Normal <0.01 [facility] Comment on above: Order Comment: Speci men Type: BLOOD SPECIMEN Ordering Facility: [facility] Address: [address] [address] Performed By: #### L [id number] #### [facility] CLIA [id number] [address] Nucleated RBC/100 WBC (Bld) [Ratio] 0.0 /100 WBC Normal [facility] Comment on above: Order Comment: Speci men Type: BLOOD SPECIMEN Ordering Facility: [facility] Address: [address] [address] Performed By: #### L [id number] #### [facility] CLIA [id number] [address] Platelet mean volume (Bld) [Entitic vol] 10.6 fL Normal 9.0-12.7 [facility] Comment on above: Order Comment: Speci men Type: BLOOD SPECIMEN Ordering Facility: [facility] Address: [address] [address] Performed By: #### L [id number] #### [facility] CLIA [id number] [address] OF [place] Platelets (Bld) [#/Vol] 396 10*3/uL Normal 150-400 [facility] Comment on above: Order Comment: Speci men Type: BLOOD SPECIMEN Ordering Facility: [facility] Address: [address] [place] [address] Performed By: #### L [id number], 1987-12 #### [facility] CLIA [id number] 1000 [place] [address] [place] RBC (Bld) [#/Vol] 3.33 10*6/uL Low 3.90-5.20 [facility] Comment on above: Order Comment: Speci men Type: BLOOD SPECIMEN Ordering Facility: [facility] Address: [address] [place] [address] Performed By: #### L [id number] #### [facility] CLIA [id number] [address] [place] [address] OF [facility] WBC (Bld) [#/Vol] 9.07 10*3/uL Normal 3.70-11.00 [facility] Comment on above: Order Comment: Speci men Type: BLOOD SPECIMEN Ordering Facility: [facility] Address: [address] [place] [address] Performed By: #### L [id number] #### [facility] CLIA [id number] [address] [place] [address] OF [place] CK SerPl-cCncon 03-29-2023 CK [Catalytic activity/Vol] 40 U/L Low 42-196 [facility] Comment on above: Order Comment: Speci men Type: BLOOD SPECIMENOrdering Facility: [facility] Address: [address] [place] [address] Performed By: #### 3 3762-6, 2157-6, [id number], 13731-2 ####[facility] [id number] [place] [address] OF [facility] CONSULT PROGon 03-29-2023 CONSULT PROG HNO ID: [id number] Author: Dino Xavier RPh Service: Pharmacy Author [...] have any questions, please contact pharmacy at 0018. Age: [age] year old Allergies: ALLERGIES Allergen [...] results found for: MARIJABEVERLY Dino Xavier, [facility] Normal [facility] CRP SerPl-mCncon 03-29-2023 CRP [Mass/Vol] 9.0 mg/dL High <0.9 [facility] Comment on above: Order Comment: Speci men Type: BLOOD SPECIMEN Ordering Facility: [facility] Address: [address] [place] [address] Performed By: #### L [id number], 1987-12 #### [facility] CLIA [id number] [address] STATES OF [facility] Comprehensive metabolic 2000 panelon 03-29-2023 Albumin [Mass/Vol] 2.6 g/dL Low 3.9-4.9 [facility] Comment on above: Order Comment: Speci men Type: BLOOD SPECIMENOrdering Facility: [facility] Address: [address] [place] [address] Performed By: #### 3 3762-6, 6, [id number], 88473-7 ####[facility] [id number] [address] STATES OF [facility] ALP [Catalytic activity/Vol] 82 U/L Normal 34-123 [facility] Comment on above: Order Comment: Speci men Type: BLOOD SPECIMENOrdering Facility: [facility] Address: [address] [address] Performed By: #### 3 3762-6, 2157-01, [id number], 34668-4 ####[facility] [id number] [address] ALT [Catalytic activity/Vol] 9 U/L Normal 7-38 [facility] Comment on above: Order Comment: Speci men Type: BLOOD SPECIMENOrdering Facility: [facility] Address: [address] [place] [address] Performed By: #### 3 3762-6, 6, [id number], 96821-3 ####[facility] [id number] [address] STATES [facility] Anion gap [Moles/Vol] 10 mmol/L Normal 9-18 [facility] Comment on above: Order Comment: Speci men Type: BLOOD SPECIMENOrdering Facility: [facility] Address: [address] [address] Performed By: #### 3 3762-6, 6, [id number], 35344-4 ####[facility]ORYCLIA [id number] [place] [address] [place] AST [Catalytic activity/Vol] 17 U/L Normal 13-35 [facility] Comment on above: Order Comment: Speci men Type: BLOOD SPECIMENOrdering Facility: [facility] Address: [address] [address] Performed By: #### 3 3762-6, 2157-01, [id number], 72139-4 ####[facility] [id number] [address] [place] Bilirubin [Mass/Vol] 0.3 mg/dL Normal 0.2-1.3 [facility] Comment on above: Order Comment: Speci men Type: BLOOD SPECIMENOrdering Facility: [facility] Address: [address] [address] Performed By: #### 3 3762-6, 2157-01, BCC8821, 82336-3 ####[facility] [id number] [address] STATES OF [facility] Calcium [Mass/Vol] 8.8 mg/dL Normal 8.5-10.2 [facility] Comment on above: Order Comment: Speci men Type: BLOOD SPECIMENOrdering Facility: [facility] Address: [address] [address] Performed By: #### 3 3762-6, 6, [id number], 22540-7 ####[facility]ORYCLIA [id number] [place] [address] [place] [facility] Chloride [Moles/Vol] 102 mmol/L Normal 97-105 [facility] Comment on above: Order Comment: Jean weems Type: BLOOD SPECIMENOrdering Facility: [facility] Address: [address] [place] [address] Performed By: #### 3 3762-6, 2157-6, [id number], 63700-8 ####[facility] [id number] [address] CO2 [Moles/Vol] 30 mmol/L Normal 22-30 [facility] Comment on above: Order Comment: Speci men Type: BLOOD SPECIMENOrdering Facility: [facility] Address: [address] [place] [address] Performed By: #### 3 3762-6, 2157-6, QPP2819, 40520-7 ####[facility] [id number] [place] [address] [place] Creatinine [Mass/Vol] 1.37 mg/dL High 0.58-0.96 [facility] Comment on above: Order Comment: Speci men Type: BLOOD SPECIMENOrdering Facility: [facility] Address: [address] [place] [address] Performed By: #### 3 3762-6, 21576, WWI8934, 43314-5 ####[facility] [id number] [address] OF [facility] ESTIMATED GLOMERULAR FILTRATION RATE 38 mL/min/1.73m??? Low >=60 [facility] Comment on above: Order Comment: Jean weems Type: BLOOD SPECIMENOrdering Facility: [facility] Address: [address] [place] [address] Result Comment: Harika mated Glomerular Filtration Rate [...] GFR. Performed By: #### 3 3762-6, 7-6, DVB5436, 54818-2 ####[facility] [id number] [place] [address] [place] Glucose [Mass/Vol] 133 mg/dL High 74-99 [facility] Comment on above: Order Comment: Jean dank Type: BLOOD SPECIMENOrdering Facility: [facility] Address: [address] [address] Result Comment: The [place] [employer] Association (ADA) provides guidance for cutoff [...] Standards of Medical Care in Diabetes 2016, [place] [employer]. Diabetes Care. 2016.39(Suppl 1). Performed By: #### 3 3762-6, 6, HBU6585, 75016-3 ####[facility] [id number] [address] [id number] [place] Potassium [Moles/Vol] 3.2 mmol/L Low 3.7-5.1 [facility] Comment on above: Order Comment: Jean weems Type: BLOOD SPECIMENOrdering Facility: [facility] Address: [address] [id number] Performed By: #### 3 3762-6, 2156-6, LYS4480, 61458-7 ####[facility]ORYCLIA [id number] [place] [address] [place] Protein [Mass/Vol] 6.4 g/dL Normal 6.3-8.0 [facility] Comment on above: Order Comment: Jean dank Type: BLOOD SPECIMENOrdering Facility: [facility] Address: [address] [address] Performed By: #### 3 3762-6, 2157-6, EJB2118, 35654-3 ####[facility]CLIA [id number] [address] [id number] [facility] Sodium [Moles/Vol] 142 mmol/L Normal 136-144 [facility] Comment on above: Order Comment: Speci men Type: BLOOD SPECIMENOrdering Facility: [facility] Address: [address] [place], [place] [address] Performed By: #### 3 3762-6, 2157-6, FVZ5954, 84991-8 ####[facility]ORYCLIA [id number] [place] [id number] [facility] Urea nitrogen [Mass/Vol] 16 mg/dL Normal 7-21 [facility] Comment on above: Order Comment: Speci men Type: BLOOD SPECIMENOrdering Facility: [facility] Address: [address] [place], [place] [address] Performed By: #### 3 3762-6, 6, [id number], 93874-0 ####[facility]CLIA [id number] [place] [id number] [facility] ECG COMPLETEon 03-29-2023 ECG COMPLETE Ventricular Rate : 1 05 BPM Atrial Rate : 105 BPM P-R Interval : 166 ms QRS Duration : 96 ms Q-T Interval : 354 ms QTC Calculation(Bazett) : 467 ms Calculated P [place] : 81 degrees Calculated R [place] : -11 degrees Calculated T [place] : 29 degrees SINUS TACHYCARDIA MODERATE VOLTAGE CRITERIA FOR LVH, MAY BE NORMAL VARIANT INFERIOR INFARCT , AGE UNDETERMINED ABNORMAL ECG no stemi Confirmed by Pawel HERNADEZ ERIKA ([id number]), editor city KELSEY MONTEIRO (1945) on 03/30/2023 9:06:45 AM NAME : AMBER KOROMA PID : [id number] : 1940 Gender : Female Race : ORD : [id number] Procedure Date : Mar 29 2023 17:45:18 Edit Date : Mar 30 2023 09:06:52 Diagnosis: SINUS TACHYCARDIA MODERATE VOLTAGE CRITERIA FOR LVH, MAY BE NORMAL VARIANT INFERIOR INFARCT , AGE UNDETERMINED ABNORMAL ECG no stemi Confirmed by Pawel HERNADEZ ERIKA ([id number]), editor city [place]ELSEY MONTEIRO (1945) on 03/30/2023 9:06:45 AM Test Reason : Chest Pain Location : 1 : ER ED Overread By : Pawel HERNADEZ ERIKA Edited By : KELSEY MONTEIRO Referred By : , Acquired by : MOLLY, [facility] ED NOTEon 03-29-2023 ED NOTE HNO ID: [id number] Author: Gold Holguin RN Service: Nursing Author Type: Registered Nurse Type: ED Notes Filed: 03/29/2023 9:22 PM Note Text: Pt is being admitted to 404 in stable condition, report given to Herb WALDEN [facility] ED PROV NOTEon 03-29-2023 ED PROV NOTE HNO ID: [id number] Author: Judith Hernadez MD Service: ? Author [...] her left leg. She was seen by [facility] and admitted for cellulitis. She was [...] Normal b (more content not included)... Normal [facility] Gas and Carbon monoxide pane l (BldV)on 03-29-2023 Base excess Calc (BldV) [Moles/Vol] 8 mmol/L High 0-2 [facility] Comment on above: Order Comment: Kareni dank Type: VENOUS BLOOD SPECIMENOrdering Facility: [facility] Address: [address] [place] [address] Performed By: #### 2 4344-4 ####[facility]CLIA [id number] [id number] [place] [address] Carboxyhemoglobin (BldV) [Mass fraction] <1.0 Normal 0.0-2.0 [facility] Comment on above: Order Comment: Jean men Type: VENOUS BLOOD SPECIMENOrdering Facility: [facility] Address: [address] [place] [address] Result Comment: Carb oxyhemoglobin Reference Range for Smokers: 2.0-8.0% Performed By: #### 2 4344-4 ####[facility]ORYCLIA [id number] [facility] [id number] [address] [address] CO2 (BldV) [Partial pressure] 52 mm[Hg] Normal 42-55 [facility] Comment on above: Order Comment: Speci men Type: VENOUS BLOOD SPECIMENOrdering Facility: [facility] Address: [address] [place] [address] Performed By: #### 2 4344-4 ####[facility]ATORYCLIA [id number] [facility] [id number] [address] [address] CO2 adjusted to patient's actual temperature (BldV) [Partial pressure] Normal [facility] Comment on above: Order Comment: Speci men Type: VENOUS BLOOD SPECIMENOrdering Facility: [facility] Address: [address] [place] [address] Performed By: #### 2 4344-4 ####[place] [facility]ATORYCLIA [id number] [facility]OS[facility] RES[facility] [id number] [address] [address] HCO3 (Bld) [Moles/Vol] 33 mmol/L High 24-28 [facility] Comment on above: Order Comment: Speci men Type: VENOUS BLOOD SPECIMENOrdering Facility: [facility] Address: [address] [place] [address] Performed By: #### 2 4344-4 ####[place] [facility]PIRATORYIA [id number] [facility] RES[facility]IR[facility] [id number] [address] [address] Hemoglobin (Bld) [Mass/Vol] 12.4 g/dL Normal 11.5-15.5 [facility] Comment on above: Order Comment: Speci men Type: VENOUS BLOOD SPECIMENOrdering Facility: [facility] Address: [address] [place] [address] Performed By: #### 2 4344-4 ####[place] [facility]ATORYCLIA [id number] [facility] RES[facility] [id number] [address] Lactate [Moles/Vol] 1.8 mmol/L Normal 0.5-2.2 [facility] Comment on above: Order Comment: Speci men Type: VENOUS BLOOD SPECIMENOrdering Facility: [facility] Address: [address] [address] Performed By: #### 2 4344-4 ####[facility]ATORYCLIA [id number] [facility] RESP[facility] [id number] [address] [address] Methemoglobin (Bld) [Mass fraction] % Normal 0.0-1.5 [facility] Comment on above: Order Comment: Speci men Type: VENOUS BLOOD SPECIMENOrdering Facility: [facility] Address: [address] [address] Performed By: #### 2 4344-4 ####[facility]ATORYCLIA [id number] [facility]OS[facility] RESPIRAT[facility] [id number] [address] O2 THERAPY RA=Room Air [facility] Comment on above: Order Comment: Speci men Type: VENOUS BLOOD SPECIMENOrdering Facility: [facility] Address: [address] [address] Performed By: #### 2 4344-4 ####[place] [facility]IRATORYIA [id number] [facility] RES[facility] [id number] [address] [address] Oxygen (BldV) [Partial pressure] mm[Hg] Low 35-45 [facility] Comment on above: Order Comment: Speci men Type: VENOUS BLOOD SPECIMENOrdering Facility: [facility] Address: [address] Performed By: #### 2 4344-4 ####[facility]IRATORYCLIA [id number] [facility] [id number] [address] Oxygen adjusted to patient's actual temperature (BldV) [Partial pressure] Normal [facility] Comment on above: Order Comment: Speci men Type: VENOUS BLOOD SPECIMENOrdering Facility: [facility] Address: [address] [place] [place] [address] Performed By: #### 2 4344-4 ####[facility] RESPIRATORYCLIA [id number] [facility]OS[facility]ORY [id number] [place] [address] Oxyhemoglobin (BldV) [Mass fraction] 37 % Low 60-85 [facility] Comment on above: Order Comment: Speci men Type: VENOUS BLOOD SPECIMENOrdering Facility: [facility] Address: [address] [address] Performed By: #### 2 4344-4 ####[place] [facility] RESPIRATORYIA [id number] [facility]OSP[facility] RESPIRATORY [id number] [place] [address] pH (BldV) 7.42 [pH] Normal 7.32-7.42 [facility] Comment on above: Order Comment: Speci men Type: VENOUS BLOOD SPECIMENOrdering Facility: [facility] Address: [address] [place] [address] Performed By: #### 2 4344-4 ####[facility] [id number] [facility] RESPIRATORY [id number] [place] [address] pH adjusted to patient's actual temperature (BldV) Normal [facility] Comment on above: Order Comment: Speci men Type: VENOUS BLOOD SPECIMENOrdering Facility: [facility] Address: [address] [place] [address] Performed By: #### 2 4344-4 ####[place] [facility]ORYM[facility] [id number] [facility]OS[facility] RESPIRATORY [id number] [place] [address] Potassium [Moles/Vol] 3.1 mmol/L Low 3.5-5.0 [facility] Comment on above: Order Comment: Speci men Type: VENOUS BLOOD SPECIMENOrdering Facility: [facility] Address: [address] [place] [place] [address] Performed By: #### 2 4344-4 ####[place] [facility]ORYM[facility] [id number] [facility]OSP[facility] RESPIRATORY [id number] [place] [address] HIGH SENSITIVITY TROPONIN T (INITIAL)on 03-29-2023 HIGH SENSITIVITY ALEENA 30 ng/L High <12 [facility] Comment on above: Order Comment: Speci men Type: BLOOD SPECIMENOrdering Facility: [facility] Address: [address] [place] [address] Result Comment: When assessing risk for acute [...] MACE. Performed By: #### 3 3762-6, 2157-6, [id number], 63526-4 ####[facility] LABORATORYCLIA [id number] [address] [place] HIGH SENSITIVITY TROPONIN T (SECOND)on 03-29-2023 HIGH SENSITIVITY ALEENA 29 ng/L High <12 [facility] Comment on above: Order Comment: Jean weems Type: BLOOD SPECIMEN Ordering Facility: [facility] Address: [address] [place] [address] Result Comment: When assessing risk for acute [...] 30 day MACE. Performed By: #### L UT2471, 1987-12 #### [facility] CLIA [id number] [address] [place] HIGH SENSITIVITY TROPONIN T (THIRD) 3 HRS AFTER INITIALon 03-29-2023 HIGH SENSITIVITY ALEENA 27 ng/L High <12 [facility] Comment on above: Order Comment: Jean weems Type: BLOOD SPECIMEN Ordering Facility: [facility] Address: [address] [place] [address] Result Comment: When assessing risk for acute [...] 30 day MACE. Performed By: #### L HG4481, 1987-12 #### [facility] CLIA [id number] [address] [place] [address] [facility] NT[facility]BNP [facility] Natriuretic peptide.B prohormone N-Terminal [Mass/Vol] 3874 pg/mL High <450 [facility] Comment on above: Order Comment: Speci men Type: BLOOD SPECIMENOrdering Facility: [facility] Address: [address] [place], [place] [address] [address] Performed By: #### 3 3762-6, 2157-6, [id number], 79874-1 ####[place] LABORATORYCLIA [id number] [place], [place] [address] [place] [address] OF [facility] XR CHEST 1V FRONTAL PORTon 0 [...] Other: None. IMPRESSION: Findings as described above. Rehabilitation Center Manager: PSCB Transcribe Date/Time: Mar 29 2023 7:04P Dictated by : DENISSE ACEVEDO MD This examination was interpreted and the report reviewed and electronically signed by: DENISSE ACEVEDO MD on Mar 29 2023 7:06PM EST [id number] [facility] XR TIBIA FIBULA 2V AP/LAT LT on [...] radiographic evidence of acute bony destructive process. Rehabilitation Center Manager: [facility] Transcribe Date/Time: Mar 29 2023 7:03P Dictated by : ALECIA GARCIA MD This examination was interpreted and the report reviewed and electronically signed by: ALECIA GARCIA MD on Mar 29 2023 7:05PM EST [id number] Normal [facility] Absolute lymphocyte countOrd ered By: Armand Bob on 03-19-2023 Lymphocytes Auto (Unsp spec) [#/Vol] 1.57 10*3/uL 0.83-4.51 [facility] Basophil percentageOrdered B y: Armand Bob on 03-19-2023 Basophil percentage Not Reportable [facility] Basophil percentage 2.0 mg/dL 2.5-4.9 [facility] Chloride [Moles/Vol] 110 mmol/L 98-107 [facility] Glucose [Mass/Vol] 92 mg/dL 74-106 [facility] Neutrophils (Bld) [#/Vol] 10.9 10*3/uL 2.0-7.7 [facility] Potassium [Moles/Vol] 3.6 mmol/L 3.5-5.1 [facility] Sodium [Moles/Vol] 138 mmol/L 136-145 [facility] WBC (Bld) [#/Vol] 13.1 10*3/uL 4.4-11.0 [facility] Blood band neutrophil count as percentage of total leukocytesOrdered By: Armand Bob on 03-19-2023 Band form neutrophils/100 WBC (Bld) 15 % 0-5 [facility] Blood erythrocytes count (nu mber/volume)Ordered By: Armand Bob on 03-19-2023 RBC (Bld) [#/Vol] 3.28 10*6/uL 4.2-5.4 [facility] Blood hemoglobin measurement (mass/volume)Ordered By: Armand Bob on 03-19-2023 Hemoglobin (Bld) [Mass/Vol] 9.5 g/dL 12.0-15.0 [facility] Blood lymphocytes/100 leukoc ytesOrdered By: Armand Bob on 03-19-2023 Lymphocytes/100 WBC (Bld) 12 % 19-41 [facility] Blood monocytes/100 leukocyt esOrdered By: Armand Bob on 03-19-2023 Monocytes/100 WBC (Bld) 4 % 0-10 [facility] Blood platelet adequacy dete ction by light microscopyOrdered By: Armand Bob on 03-19-2023 Platelets LM Ql (Bld) SLT DEC ADEQ [facility] Blood platelet mean volumeOr dered By: Armand Bob on 03-19-2023 Platelet mean volume (Bld) [Entitic vol] 10.7 fL 6.2-12.0 [facility] Blood segmented neutrophils/ 100 leukocytesOrdered By: Armand Bob on 03-19-2023 Segmented neutrophils/100 WBC (Bld) 68 % 47-70 [facility] Determination of erythrocyte mean corpuscular volume (MCV)Ordered By: Armand Bob on 03-19-2023 MCV (RBC) [Entitic vol] 91.2 fL 81-99 [facility] Hematocrit Auto (Bld) [Volum e fraction]Ordered By: Armand Bob on 03-19-2023 Hematocrit (Bld) [Volume fraction] 29.9 % 37-47 [facility] Laboratory - Chemistry and C hemistry - challengeOrdered By: Armand Bob on 03-19-2023 CO2 [Moles/Vol] 25.0 mmol/L 21.0-32.0 [facility] Magnesium [Mass/Vol] 2.0 mg/dL 1.6-2.6 [facility] Urea nitrogen/Creatinine [Mass ratio] 20.3 mg/mg 10-20 [facility] Laboratory - Hematology and Cell countsOrdered By: Armand Bob on 03-19-2023 Erythrocyte distribution width (RBC) [Entitic vol] 48.0 fL 35.1-43.9 [facility] Erythrocyte distribution width (RBC) [Ratio] 14.2 % 11.6-14.6 [facility] MCH (RBC) [Entitic mass] 29.0 pg 27.0-32.0 [facility] Myelocytes/100 WBC (Bld) 1 % 0-0 [facility] MCHC Auto (RBC) [Mass/Vol]Or dered By: Armand Bob on 03-19-2023 MCHC (RBC) [Mass/Vol] 31.8 g/dL 32-36 [facility] No Panel InformationOrdered By: Armand Bob on 03-19-2023 Estimated Creatinine Clearance Calc 44.42 ml/min [facility] Estimated GFR (MDRD) Amer 51 mL/min >60 [facility] Comment on above: GFR Calc Estimated GFR (MDRD) Non-Af Amer 42 mL/min >60 [facility] Comment on above: Non- GFR Calc Platelets bldOrdered By: Sarbjit Bob on 03-19-2023 Platelets (Bld) [#/Vol] 136 10*3/uL 150-450 [facility] RBC morphologyOrdered By: Gumaro Bob on 03-19-2023 RBC morphology finding Nom (Bld) NORM C+C NORMAL NORM C&C [facility] Review by pathologistOrdered By: Armand Bob on 03-19-2023 Pathologist review Bryce (Unsp spec) [Interp] Reviewed [facility] Comment on above: Previous reported re sult: Narda angel Edited by: RGOMARCELA on 03/20/23:1011Neutrophilic leukocytosis.Normocytic anemia.Mild Thrombocytopenia.Clinical correlation necessary.Rainer Nelson M.D. 03/20/23 AMENDED REPORT 03/20/23 1011 PATH REV previously reported as: December foll Serum or plasma calcium lakeisha urement (mass/volume)Ordered By: Armand Bob on 03-19-2023 Calcium [Mass/Vol] 7.8 mg/dL 8.5-10.1 [facility] Serum or plasma creatinine m easurement (mass/volume)Ordered By: Armand Bob on 03-19-2023 Creatinine [Mass/Vol] 1.28 mg/dL 0.55-1.02 [facility] Comment on above: The validity of the calculated GFR & GFRAA in patients over 70 years has not been determined. Clinical correlation is essential. Serum or plasma urea nitroge n measurement (mass/volume)Ordered By: Armand Bob on 03-19-2023 Urea nitrogen [Mass/Vol] 26 mg/dL 7-18 [facility] Thin prep Papanicolaou smear with manual screeningOrdered By: Armand Bob on 03-19-2023 Thin prep Papanicolaou smear with manual screening 3 5-15 [facility] Total cell countOrdered By: Armand Bob on 03-19-2023 Cells counted Molgen (Bld/Tiss) [#] 100 MANUAL DIFF [facility] Basophil percentageOrdered B y: Nata Rivers on 03-18-2023 Basophils/100 WBC (Bld) 0.2 % 0-1 [facility] Eosinophils/100 WBC (Bld) 0.0 % 0-5 [facility] Blood lymphocytes/100 leukoc ytesOrdered By: Nata Rivers on 03-18-2023 Lymphocytes/100 WBC (Bld) 3.7 % 19-41 [facility] Blood manual differential co mment interpretation (narrative result)Ordered By: Nata Rivers on 03-18-2023 Manual differential comment Bryce (Bld) [Interp] SCANNED [facility] Comment on above: LYMPHOPENIALEFT SHIF T PRESENT BANDS 2+ Blood monocytes/100 leukocyt esOrdered By: Nata Rivers on 03-18-2023 Monocytes/100 WBC (Bld) 4.5 % 0-10 [facility] Laboratory - Hematology and Cell countsOrdered By: Nata Rivers on 03-18-2023 Immature granulocytes/100 WBC (Bld) 2.100 % 0.0-0.9 [facility] Comment on above: IG% - Immature Granu locytes (promyelocytes, myelocytes and metamyelocytes) > 1% indicates that a LEFT SHIFT is Present. Nucleated RBC/100 WBC (Bld) [Ratio] 0 % 0-5 [facility] Basophil percentageOrdered B y: Familia Smalls on 03-17-2023 Lactate [Moles/Vol] 1.5 mmol/L 0.4-2.0 [facility] Bilirubin [Mass/Vol] 0.60 mg/dL 0.20-1.00 [facility] Comment on above: For patients on eltr ombopag therapy, use of Dimension [place] TBIL is not recommended. Protein [Mass/Vol] 7.8 g/dL 6.4-8.2 [facility] INR in Blood by Coagulation assayOrdered By: Familia Smalls on 03-17-2023 INR Coag (Bld) [Relative time] 1.2 {INR} [facility] Laboratory - Chemistry and C hemistry - challengeOrdered By: Familia Smalls on 03-17-2023 ALP [Catalytic activity/Vol] 82 U/L 45-117 [facility] ALT [Catalytic activity/Vol] 16 U/L 13-56 [facility] Globulin (S) [Mass/Vol] 5.0 g/dL 2.2-4.2 [facility] Laboratory - CoagulationOrde red By: Familia Smalls on 03-17-2023 aPTT Coag (Bld) [Time] 32.6 s 24.1-36.2 [facility] PT Coag (PPP) [Time] 15.5 s 11.7-14.9 [facility] Laboratory - Microbiology an d Antimicrobial susceptibilityOrdered By: Familia Smalls on 03-17-2023 Bacteria identified Cx Nom (Bld) No growth in 5 days. [facility] Bacteria identified Cx Nom (Bld) No growth in 5 days. [facility] Serum or plasma albumin lakeisha urement (mass/volume)Ordered By: Familia Smalls on 03-17-2023 Albumin [Mass/Vol] 2.8 g/dL 3.2-5.0 [facility] Serum or plasma albumin/glob ulin mass ratioOrdered By: Familia Smalls on 03-17-2023 Albumin/Globulin [Mass ratio] 0.6 {ratio} 0.9-2.4 [facility] Thin prep Papanicolaou smear with manual screeningOrdered By: Familia Smalls on 03-17-2023 Thin prep Papanicolaou smear with manual screening 20 U/L 15-37 [facility] Absolute lymphocyte countOrd ered By: ED PROVIDER on 01-15-2023 Lymphocytes Auto (Unsp spec) [#/Vol] 1.19 10*3/uL 0.83-4.51 [facility] Basophil percentageOrdered B y: ED PROVIDER on 01-15-2023 Basophils/100 WBC (Bld) 0.5 % 0-1 [facility] Chloride [Moles/Vol] 105 mmol/L 98-107 [facility] Eosinophils/100 WBC (Bld) 1.2 % 0-5 [facility] Glucose [Mass/Vol] 96 mg/dL 74-106 [facility] Neutrophils (Bld) [#/Vol] 4.3 10*3/uL 2.0-7.7 [facility] Neutrophils/100 WBC (Bld) 67.5 % 47-70 [facility] Potassium [Moles/Vol] 3.6 mmol/L 3.5-5.1 [facility] Sodium [Moles/Vol] 140 mmol/L 136-145 [facility] WBC (Bld) [#/Vol] 6.4 10*3/uL 4.4-11.0 [facility] Blood erythrocytes count (nu mber/volume)Ordered By: ED PROVIDER on 01-15-2023 RBC (Bld) [#/Vol] 3.71 10*6/uL 4.2-5.4 [facility] Blood hemoglobin measurement (mass/volume)Ordered By: ED PROVIDER on 01-15-2023 Hemoglobin (Bld) [Mass/Vol] 10.6 g/dL 12.0-15.0 [facility] Blood lymphocytes/100 leukoc ytesOrdered By: ED PROVIDER on 01-15-2023 Lymphocytes/100 WBC (Bld) 18.6 % 19-41 [facility] Blood monocytes/100 leukocyt esOrdered By: ED PROVIDER on 01-15-2023 Monocytes/100 WBC (Bld) 11.9 % 0-10 [facility] Blood platelet mean volumeOr dered By: ED PROVIDER on 01-15-2023 Platelet mean volume (Bld) [Entitic vol] 10.2 fL 6.2-12.0 [facility] Determination of erythrocyte mean corpuscular volume (MCV)Ordered By: ED PROVIDER on 01-15-2023 MCV (RBC) [Entitic vol] 89.5 fL 81-99 [facility] Hematocrit Auto (Bld) [Volum e fraction]Ordered By: ED PROVIDER on 01-15-2023 Hematocrit (Bld) [Volume fraction] 33.2 % 37-47 [facility] Influenza virus A and B and SARS-CoV-2 (COVID-19) Ag panel - Upper respiratory specimOrdered By: ED PROVIDER on 01-15-2023 SARS-CoV-2 (COVID-19) RNA KEERTHI+probe Ql (Resp) [facility] Laboratory - Chemistry and C hemistry - challengeOrdered By: ED PROVIDER on 01-15-2023 CO2 [Moles/Vol] 29.0 mmol/L 21.0-32.0 [facility] Natriuretic peptide B (Bld) [Mass/Vol] 147.5 pg/mL 0-100 [facility] Urea nitrogen/Creatinine [Mass ratio] 19.5 mg/mg 10-20 [facility] Laboratory - Hematology and Cell countsOrdered By: ED PROVIDER on 01-15-2023 Erythrocyte distribution width (RBC) [Entitic vol] 46.5 fL 35.1-43.9 [facility] Erythrocyte distribution width (RBC) [Ratio] 14.2 % 11.6-14.6 [facility] Immature granulocytes/100 WBC (Bld) 0.300 % 0.0-0.9 [facility] Comment on above: IG% - Immature Granu locytes (promyelocytes, myelocytes and metamyelocytes) > 1% indicates that a LEFT SHIFT is Present. MCH (RBC) [Entitic mass] 28.6 pg 27.0-32.0 [facility] Nucleated RBC/100 WBC (Bld) [Ratio] 0 % 0-5 [facility] MCHC Auto (RBC) [Mass/Vol]Or dered By: ED PROVIDER on 01-15-2023 MCHC (RBC) [Mass/Vol] 31.9 g/dL 32-36 [facility] No Panel InformationOrdered By: Deann Kaur on 01-15-2023 D-Dimer Quantitative (PE/DVT) 1.09 FEU/ug/m 0.27-0.49 [facility] Comment on above: D-Dimer ELEVATED (>0 .49): Additional studies and clinicalassessments are indicated to conclude diagnosis of:Deep Vein Thrombosis (DVT) or Pulmonary Embolism (PE)CRITICAL VALUE VERIFIED. CALLED TO [id number] Tess Serrano.RESULTS READ BACK BY SAME . Troponin I High Sensitivity 6 pg/mL 3.0-54.0 [facility] Comment on above: Please Note: New Jessica t Units and Gender Specific Reference Ranges. For more information see Policy Stat Procedure [place] High Sensitivity Troponin (TNIH) and attachments. No Panel InformationOrdered By: ED PROVIDER on 01-15-2023 Estimated Creatinine Clearance Calc 23.50 ml/min [facility] Estimated GFR (MDRD) Amer 51 mL/min >60 [facility] Comment on above: GFR Calc Estimated GFR (MDRD) Non-Af Amer 42 mL/min >60 [facility] Comment on above: Non- GFR Calc Platelets bldOrdered By: ED PROVIDER on 01-15-2023 Platelets (Bld) [#/Vol] 196 10*3/uL 150-450 [facility] Serum or plasma calcium lakeisha urement (mass/volume)Ordered By: ED PROVIDER on 01-15-2023 Calcium [Mass/Vol] 8.9 mg/dL 8.5-10.1 [facility] Serum or plasma creatinine m easurement (mass/volume)Ordered By: ED PROVIDER on 01-15-2023 Creatinine [Mass/Vol] 1.28 mg/dL 0.55-1.02 [facility] Comment on above: The validity of the calculated GFR & GFRAA in patients over 70 years has not been determined. Clinical correlation is essential. 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 Benitez on 11-20-2022 Lymphocytes Auto (Unsp spec) [#/Vol] 1.01 10*3/uL 0.83-4.51 [facility] Basophil percentageOrdered B y: Dr. Benitez on 11-20-2022 Basophils/100 WBC (Bld) 0.5 % 0-1 [facility] Bilirubin [Mass/Vol] 0.30 mg/dL 0.20-1.00 [facility] Comment on above: For patients on eltr ombopag therapy, use of Dimension [place] TBIL is not recommended. Chloride [Moles/Vol] 105 mmol/L 98-107 [facility] Eosinophils/100 WBC (Bld) 2.0 % 0-5 [facility] Glucose [Mass/Vol] 88 mg/dL 74-106 [facility] Neutrophils (Bld) [#/Vol] 4.3 10*3/uL 2.0-7.7 [facility] Neutrophils/100 WBC (Bld) 71.4 % 47-70 [facility] Potassium [Moles/Vol] 4.9 mmol/L 3.5-5.1 [facility] Protein [Mass/Vol] 7.3 g/dL 6.4-8.2 [facility] Sodium [Moles/Vol] 135 mmol/L 136-145 [facility] WBC (Bld) [#/Vol] 6.0 10*3/uL 4.4-11.0 [facility] Blood erythrocytes count (nu mber/volume)Ordered By: Dr. Benitez on 11-20-2022 RBC (Bld) [#/Vol] 3.98 10*6/uL 4.2-5.4 [facility] Blood hemoglobin measurement (mass/volume)Ordered By: Dr. Benitez on 11-20-2022 Hemoglobin (Bld) [Mass/Vol] 11.2 g/dL 12.0-15.0 [facility] Blood lymphocytes/100 leukoc ytesOrdered By: Dr. Benitez on 11-20-2022 Lymphocytes/100 WBC (Bld) 16.7 % 19-41 [facility] Blood monocytes/100 leukocyt esOrdered By: Dr. Benitez on 11-20-2022 Monocytes/100 WBC (Bld) 9.1 % 0-10 [facility] Blood platelet mean volumeOr dered By: Dr. Benitez on 11-20-2022 Platelet mean volume (Bld) [Entitic vol] 11.5 fL 6.2-12.0 [facility] Determination of erythrocyte mean corpuscular volume (MCV)Ordered By: Dr. Benitez on 11-20-2022 MCV (RBC) [Entitic vol] 90.2 fL 81-99 [facility] Hematocrit Auto (Bld) [Volum e fraction]Ordered By: Dr. Benitez on 11-20-2022 Hematocrit (Bld) [Volume fraction] 35.9 % 37-47 [facility] Laboratory - Chemistry and C hemistry - challengeOrdered By: Dr. Benitez on 11-20-2022 ALP [Catalytic activity/Vol] 73 U/L 45-117 [facility] ALT [Catalytic activity/Vol] 15 U/L 13-56 [facility] CO2 [Moles/Vol] 26.0 mmol/L 21.0-32.0 [facility] Globulin (S) [Mass/Vol] 4.1 g/dL 2.2-4.2 [facility] Lipase [Catalytic activity/Vol] 185 U/L 73-393 [facility] Urea nitrogen/Creatinine [Mass ratio] 19.8 mg/mg 10-20 [facility] Laboratory - Hematology and Cell countsOrdered By: Dr. Benitez on 11-20-2022 Erythrocyte distribution width (RBC) [Entitic vol] 45.7 fL 35.1-43.9 [facility] Erythrocyte distribution width (RBC) [Ratio] 13.9 % 11.6-14.6 [facility] Immature granulocytes/100 WBC (Bld) 0.300 % 0.0-0.9 [facility] Comment on above: IG% - Immature Granu locytes (promyelocytes, myelocytes and metamyelocytes) > 1% indicates that a LEFT SHIFT is Present. MCH (RBC) [Entitic mass] 28.1 pg 27.0-32.0 [facility] Nucleated RBC/100 WBC (Bld) [Ratio] 0 % 0-5 [facility] MCHC Auto (RBC) [Mass/Vol]Or dered By: Dr. Benitez on 11-20-2022 MCHC (RBC) [Mass/Vol] 31.2 g/dL 32-36 [facility] No Panel InformationOrdered By: Dr. Benitez on 11-20-2022 Estimated GFR (MDRD) Amer 36 mL/min >60 [facility] Comment on above: GFR Calc Estimated GFR (MDRD) Non-Af Amer 30 mL/min >60 [facility] Comment on above: Non- GFR Calc Parathyroid Hormone (Intact) 161.4 pg/mL 18.4-80.1 [facility] Thyroid Stimulating Hormone (TSH) 3.26 uIU/mL 0.358-3.74 [facility] Vitamin D 25-Hydroxy 40.0 ng/mL [facility] Comment on above: Vitamin D 25(OH) Sta tus Range Deficiency <20 ng/mL (50nmol/L) Insufficiency 20 - 30 ng/mL (50 - 75 nmol/L) Sufficiency 30 - 100 ng/mL (75 - 250 nmol/L) Toxicity >100 ng/mL (>250 nmol/L) Platelets bldOrdered By: Dr. Benitez on 11-20-2022 Platelets (Bld) [#/Vol] 193 10*3/uL 150-450 [facility] Serum or plasma albumin lakeisha urement (mass/volume)Ordered By: Dr. Benitez on 11-20-2022 Albumin [Mass/Vol] 3.2 g/dL 3.2-5.0 [facility] Serum or plasma albumin/glob ulin mass ratioOrdered By: Dr. Benitez on 11-20-2022 Albumin/Globulin [Mass ratio] 0.8 {ratio} 0.9-2.4 [facility] Serum or plasma calcium lakeisha urement (mass/volume)Ordered By: Dr. Benitez on 11-20-2022 Calcium [Mass/Vol] 9.1 mg/dL 8.5-10.1 [facility] Serum or plasma creatinine m easurement (mass/volume)Ordered By: Dr. Benitez on 11-20-2022 Creatinine [Mass/Vol] 1.72 mg/dL 0.55-1.02 [facility] Comment on above: The validity of the calculated GFR & GFRAA in patients over 70 years has not been determined. Clinical correlation is essential. Serum or plasma urea nitroge n measurement (mass/volume)Ordered By: Dr. Benitez on 11-20-2022 Urea nitrogen [Mass/Vol] 34 mg/dL 7-18 [facility] Thin prep Papanicolaou smear with manual screeningOrdered By: Dr. Benitez on 11-20-2022 Thin prep Papanicolaou smear with manual screening 19 U/L 15-37 [facility] Thin prep Papanicolaou smear with manual screening 4 5-15 [facility] XR FOOT GENERAL 3V AP/LAT/OB L LEFTon 09-11-2022 [facility] Absolute lymphocyte countOrd ered By: Dr. Benitez on 07-09-2022 Lymphocytes Auto (Unsp spec) [#/Vol] 1.12 10*3/uL 0.83-4.51 [facility] Basophil percentageOrdered B y: Dr. Benitez on 07-09-2022 Basophils/100 WBC (Bld) 0.6 % 0-1 [facility] Bilirubin [Mass/Vol] 0.30 mg/dL 0.20-1.00 [facility] Comment on above: For patients on eltr ombopag therapy, use of Dimension [place] TBIL is not recommended. Chloride [Moles/Vol] 108 mmol/L 98-107 [facility] Eosinophils/100 WBC (Bld) 2.9 % 0-5 [facility] Glucose [Mass/Vol] 115 mg/dL 74-106 [facility] Comment on above: Fasting Glucose resu lt from 100 to 125 mg/dL suggests IMPAIRED HOMEOSTASIS per A.D.A. criteria. Neutrophils (Bld) [#/Vol] 4.4 10*3/uL 2.0-7.7 [facility] Neutrophils/100 WBC (Bld) 70.9 % 47-70 [facility] Potassium [Moles/Vol] 3.6 mmol/L 3.5-5.1 [facility] Protein [Mass/Vol] 7.4 g/dL 6.4-8.2 [facility] Sodium [Moles/Vol] 142 mmol/L 136-145 [facility] WBC (Bld) [#/Vol] 6.3 10*3/uL 4.4-11.0 [facility] Blood erythrocytes count (nu mber/volume)Ordered By: Dr. Benitez on 07-09-2022 RBC (Bld) [#/Vol] 3.67 10*6/uL 4.2-5.4 [facility] Blood hemoglobin measurement (mass/volume)Ordered By: Dr. Benitez on 07-09-2022 Hemoglobin (Bld) [Mass/Vol] 10.6 g/dL 12.0-15.0 [facility] Blood lymphocytes/100 leukoc ytesOrdered By: Dr. Benitez on 07-09-2022 Lymphocytes/100 WBC (Bld) 17.9 % 19-41 [facility] Blood monocytes/100 leukocyt esOrdered By: Dr. Benitez on 07-09-2022 Monocytes/100 WBC (Bld) 7.2 % 0-10 [facility] Blood platelet mean volumeOr dered By: Dr. Benitez on 07-09-2022 Platelet mean volume (Bld) [Entitic vol] 10.4 fL 6.2-12.0 [facility] Determination of erythrocyte mean corpuscular volume (MCV)Ordered By: Dr. Benitez on 07-09-2022 MCV (RBC) [Entitic vol] 93.7 fL 81-99 [facility] Hematocrit Auto (Bld) [Volum e fraction]Ordered By: Dr. Benitez on 07-09-2022 Hematocrit (Bld) [Volume fraction] 34.4 % 37-47 [facility] Laboratory - Chemistry and C hemistry - challengeOrdered By: Dr. Benitez on 07-09-2022 ALP [Catalytic activity/Vol] 88 U/L 45-117 [facility] ALT [Catalytic activity/Vol] 13 U/L 13-56 [facility] CO2 [Moles/Vol] 28.0 mmol/L 21.0-32.0 [facility] Globulin (S) [Mass/Vol] 4.3 g/dL 2.2-4.2 [facility] Natriuretic peptide B (Bld) [Mass/Vol] 105.8 pg/mL 0-100 [facility] Urea nitrogen/Creatinine [Mass ratio] 23.3 mg/mg 10-20 [facility] Laboratory - Hematology and Cell countsOrdered By: Dr. Benitez on 07-09-2022 Erythrocyte distribution width (RBC) [Entitic vol] 44.0 fL 35.1-43.9 [facility] Erythrocyte distribution width (RBC) [Ratio] 12.7 % 11.6-14.6 [facility] Immature granulocytes/100 WBC (Bld) 0.500 % 0.0-0.9 [facility] Comment on above: IG% - Immature Granu locytes (promyelocytes, myelocytes and metamyelocytes) > 1% indicates that a LEFT SHIFT is Present. MCH (RBC) [Entitic mass] 28.9 pg 27.0-32.0 [facility] Nucleated RBC/100 WBC (Bld) [Ratio] 0 % 0-5 [facility] MCHC Auto (RBC) [Mass/Vol]Or dered By: Dr. Benitez on 07-09-2022 MCHC (RBC) [Mass/Vol] 30.8 g/dL 32-36 [facility] No Panel InformationOrdered By: Dr. Benitez on 07-09-2022 Estimated GFR (MDRD) Amer 57 mL/min >60 [facility] Comment on above: GFR Calc Estimated GFR (MDRD) Non-Af Amer 47 mL/min >60 [facility] Comment on above: Non- GFR Calc Parathyroid Hormone (Intact) 104.7 pg/mL 18.4-80.1 [facility] Vitamin D 25-Hydroxy 37.3 ng/mL [facility] Comment on above: Vitamin D 25(OH) Sta tus Range Deficiency <20 ng/mL (50nmol/L) Insufficiency 20 - 30 ng/mL (50 - 75 nmol/L) Sufficiency 30 - 100 ng/mL (75 - 250 nmol/L) Toxicity >100 ng/mL (>250 nmol/L) Platelets bldOrdered By: Dr. Benitez on 07-09-2022 Platelets (Bld) [#/Vol] 212 10*3/uL 150-450 [facility] Serum or plasma albumin lakeisha urement (mass/volume)Ordered By: Dr. Benitez on 07-09-2022 Albumin [Mass/Vol] 3.1 g/dL 3.2-5.0 [facility] Serum or plasma albumin/glob ulin mass ratioOrdered By: Dr. Benitez on 07-09-2022 Albumin/Globulin [Mass ratio] 0.7 {ratio} 0.9-2.4 [facility] Serum or plasma calcium lakeisha urement (mass/volume)Ordered By: Dr. Benitez on 07-09-2022 Calcium [Mass/Vol] 9.4 mg/dL 8.5-10.1 [facility] Serum or plasma creatinine m easurement (mass/volume)Ordered By: Dr. Benitez on 07-09-2022 Creatinine [Mass/Vol] 1.16 mg/dL 0.55-1.02 [facility] Comment on above: The validity of the calculated GFR & GFRAA in patients over 70 years has not been determined. Clinical correlation is essential. Serum or plasma urea nitroge n measurement (mass/volume)Ordered By: Dr. Benitez on 07-09-2022 Urea nitrogen [Mass/Vol] 27 mg/dL 7-18 [facility] Thin prep Papanicolaou smear with manual screeningOrdered By: Dr. Benitez on 07-09-2022 Thin prep Papanicolaou smear with manual screening 14 U/L 15-37 [facility] Thin prep Papanicolaou smear with manual screening 6 5-15 [facility] Absolute lymphocyte counton 05-20-2022 Lymphocytes Auto (Unsp spec) [#/Vol] 0.94 10*3/uL 0.83-4.51 [facility] Work Phone: [phone] Basophil percentageon 2021 Basophils/100 WBC (Bld) 0.6 % 0-1 [facility] Work Phone: [phone] Bilirubin [Mass/Vol] 0.30 mg/dL 0.20-1.00 [facility] Work Phone: Comment on above: For patients on eltr ombopag therapy, use of Dimension [place] TBIL is not recommended. Chloride [Moles/Vol] 106 mmol/L 98-107 [facility] Work Phone: [phone] Eosinophils/100 WBC (Bld) 2.7 % 0-5 [facility] Work Phone: [phone] Glucose [Mass/Vol] 110 mg/dL 74-106 [facility] Work Phone: [phone] Comment on above: Fasting Glucose resu lt from 100 to 125 mg/dL suggests IMPAIRED HOMEOSTASIS per A.D.A. criteria. Neutrophils (Bld) [#/Vol] 4.6 10*3/uL 2.0-7.7 [facility] Work Phone: [phone] Neutrophils/100 WBC (Bld) 71.5 % 47-70 [facility] Work Phone: [phone] Potassium [Moles/Vol] 4.2 mmol/L 3.5-5.1 [facility] Work Phone: [phone] Comment on above: Slight Hemolysis, Re sult may be falsely increased. Protein [Mass/Vol] 7.3 g/dL 6.4-8.2 [facility] Work Phone: Sodium [Moles/Vol] 141 mmol/L 136-145 [facility] Work Phone: WBC (Bld) [#/Vol] 6.4 10*3/uL 4.4-11.0 [facility] Work Phone: Blood erythrocytes count (nu mber/volume)on 05-20-2022 RBC (Bld) [#/Vol] 3.56 10*6/uL 4.2-5.4 [facility]: Blood hemoglobin measurement (mass/volume)on 05-20-2022 Hemoglobin (Bld) [Mass/Vol] 10.6 g/dL 12.0-15.0 [facility] Work Phone: Blood lymphocytes/100 leukoc yteson 05-20-2022 Lymphocytes/100 WBC (Bld) 14.8 % 19-41 [facility] Work Phone: Blood monocytes/100 leukocyt eson 05-20-2022 Monocytes/100 WBC (Bld) 9.9 % 0-10 [facility] Work Phone: Blood platelet mean volumeon 05-20-2022 Platelet mean volume (Bld) [Entitic vol] 10.3 fL 6.2-12.0 [facility] Work Phone: [phone] Determination of erythrocyte mean corpuscular volume (MCV)on 05-20-2022 MCV (RBC) [Entitic vol] 94.7 fL 81-99 [facility] Work Phone: Hematocrit Auto (Bld) [Volum e fraction]on 05-20-2022 Hematocrit (Bld) [Volume fraction] 33.7 % 37-47 [facility] Work Phone: [phone] Laboratory - Chemistry and C hemistry - challengeon 05-20-2022 ALP [Catalytic activity/Vol] 87 U/L 45-117 [facility] Work Phone: ALT [Catalytic activity/Vol] 14 U/L 13-56 [facility] Work Phone: [phone] CO2 [Moles/Vol] 28.0 mmol/L 21.0-32.0 [facility] Work Phone: [phone] Globulin (S) [Mass/Vol] 4.2 g/dL 2.2-4.2 [facility] Work Phone: [phone] Natriuretic peptide B (Bld) [Mass/Vol] 74.4 pg/mL 0-100 [facility] Work Phone: [phone] Urea nitrogen/Creatinine [Mass ratio] 22.4 mg/mg 10-20 [facility] Work Phone: Laboratory - Hematology and Cell countson 05-20-2022 Erythrocyte distribution width (RBC) [Entitic vol] 45.6 fL 35.1-43.9 [facility] Work Phone: [phone] Erythrocyte distribution width (RBC) [Ratio] 13.3 % 11.6-14.6 [facility] Work Phone: [phone] Immature granulocytes/100 WBC (Bld) 0.500 % 0.0-0.9 [facility] Work Phone: [phone] Comment on above: IG% - Immature Granu locytes (promyelocytes, myelocytes and metamyelocytes) > 1% indicates that a LEFT SHIFT is Present. MCH (RBC) [Entitic mass] 29.8 pg 27.0-32.0 [facility] Work Phone: Nucleated RBC/100 WBC (Bld) [Ratio] 0 % 0-5 [facility] Work Phone: [phone] MCHC Auto (RBC) [Mass/Vol]on 05-20-2022 MCHC (RBC) [Mass/Vol] 31.5 g/dL 32-36 [facility] Work Phone: No Panel Informationon 05-20 Estimated Creatinine Clearance Calc 21.41 ml/min [facility] Work Phone: [phone] Estimated GFR (MDRD) Amer 45 mL/min >60 [facility] Work Phone: Comment on above: GFR Calc Estimated GFR (MDRD) Non-Af Amer 37 mL/min >60 [facility] Work Phone: Comment on above: Non- GFR Calc Platelets bldon 05-20-2022 Platelets (Bld) [#/Vol] 190 10*3/uL 150-450 [facility] Work Phone: Serum or plasma albumin lakeisha urement (mass/volume)on 05-20-2022 Albumin [Mass/Vol] 3.1 g/dL 3.2-5.0 [facility] Work Phone: Serum or plasma albumin/glob ulin mass ratioon 05-20-2022 Albumin/Globulin [Mass ratio] 0.7 {ratio} 0.9-2.4 [facility] Work Phone: Serum or plasma calcium lakeisha urement (mass/volume)on 05-20-2022 Calcium [Mass/Vol] 9.4 mg/dL 8.5-10.1 [facility] Work Phone: Serum or plasma creatinine m easurement (mass/volume)on 05-20-2022 Creatinine [Mass/Vol] 1.43 mg/dL 0.55-1.02 [facility] Work Phone: Comment on above: The validity of the calculated GFR & GFRAA in patients over 70 years has not been determined. Clinical correlation is essential. Serum or plasma urea nitroge n measurement (mass/volume)on 05-20-2022 Urea nitrogen [Mass/Vol] 32 mg/dL 7-18 [facility] Work Phone: Thin prep Papanicolaou smear with manual screeningon 05-20-2022 Thin prep Papanicolaou smear with manual screening 17 U/L 15-37 [facility] Work Phone: Comment on above: Slight Hemolysis, Re sult may be falsely increased. Thin prep Papanicolaou smear with manual screening 7 5-15 [facility] Work Phone: Absolute lymphocyte counton 05-08-2022 Lymphocytes Auto (Unsp spec) [#/Vol] 0.75 10*3/uL 0.83-4.51 [facility] Work Phone: Basophil percentageon 2021 Basophil percentage 0 SEEN /hpf 0-5 [facility] Work Phone: Basophils/100 WBC (Bld) 0.4 % 0-1 [facility] Work Phone: Bilirubin [Mass/Vol] 0.30 mg/dL 0.20-1.00 [facility] Work Phone: Comment on above: For patients on eltr ombopag therapy, use of Dimension [place] TBIL is not recommended. Chloride [Moles/Vol] 106 mmol/L 98-107 [facility] Work Phone: Eosinophils/100 WBC (Bld) 1.4 % 0-5 [facility] Work Phone: Glucose [Mass/Vol] 94 mg/dL 74-106 [facility] Work Phone: Neutrophils (Bld) [#/Vol] 5.8 10*3/uL 2.0-7.7 [facility] Work Phone: Neutrophils/100 WBC (Bld) 79.8 % 47-70 [facility] Work Phone: Potassium [Moles/Vol] 4.5 mmol/L 3.5-5.1 [facility] Work Phone: Protein [Mass/Vol] 7.3 g/dL 6.4-8.2 [facility] Work Phone: Sodium [Moles/Vol] 140 mmol/L 136-145 [facility] Work Phone: WBC (Bld) [#/Vol] 7.3 10*3/uL 4.4-11.0 [facility] Work Phone: Bilirubin Test strip Ql (U)o n 05-08-2022 Bilirubin Ql (U) Negative Negative [facility] Work Phone: Blood erythrocytes count (nu mber/volume)on 05-08-2022 RBC (Bld) [#/Vol] 3.69 10*6/uL 4.2-5.4 [facility] Work Phone: [phone] Blood hemoglobin measurement (mass/volume)on 05-08-2022 Hemoglobin (Bld) [Mass/Vol] 10.7 g/dL 12.0-15.0 [facility] Work Phone: Blood lymphocytes/100 leukoc yteson 05-08-2022 Lymphocytes/100 WBC (Bld) 10.3 % 19-41 [facility] Work Phone: Blood monocytes/100 leukocyt eson 05-08-2022 Monocytes/100 WBC (Bld) 7.7 % 0-10 [facility] Work Phone: Blood platelet mean volumeon 05-08-2022 Platelet mean volume (Bld) [Entitic vol] 10.5 fL 6.2-12.0 [facility] Work Phone: [phone] Determination of erythrocyte mean corpuscular volume (MCV)on 05-08-2022 MCV (RBC) [Entitic vol] 93.0 fL 81-99 [facility] Work Phone: Hematocrit Auto (Bld) [Volum e fraction]on 05-08-2022 Hematocrit (Bld) [Volume fraction] 34.3 % 37-47 [facility] Work Phone: [phone] INR in Blood by Coagulation assayon 05-08-2022 INR Coag (Bld) [Relative time] 1.1 {INR} [facility] Work Phone: [phone] Ketones Test strip Ql (U)on 05-08-2022 Ketones Ql (U) Negative Negative [facility] Work Phone: [phone] Laboratory - Chemistry and C hemistry - challengeon 05-08-2022 ALP [Catalytic activity/Vol] 80 U/L 45-117 [facility] Work Phone: ALT [Catalytic activity/Vol] 14 U/L 13-56 [facility] Work Phone: [phone] CO2 [Moles/Vol] 28.0 mmol/L 21.0-32.0 [facility] Work Phone: [phone] Globulin (S) [Mass/Vol] 4.1 g/dL 2.2-4.2 [facility] Work Phone: [phone] Natriuretic peptide B (Bld) [Mass/Vol] 131.4 pg/mL 0-100 [facility] Work Phone: Urea nitrogen/Creatinine [Mass ratio] 22.7 mg/mg 10-20 [facility] Work Phone: Laboratory - Coagulationon 0 05-08-2022 aPTT Coag (Bld) [Time] 33.6 s 24.1-36.2 [facility] Work Phone: PT Coag (PPP) [Time] 13.7 s 11.7-14.9 [facility] Work Phone: [phone] Laboratory - Hematology and Cell countson 05-08-2022 Erythrocyte distribution width (RBC) [Entitic vol] 45.5 fL 35.1-43.9 [facility] Work Phone: Erythrocyte distribution width (RBC) [Ratio] 13.3 % 11.6-14.6 [facility] Work Phone: [phone] Immature granulocytes/100 WBC (Bld) 0.400 % 0.0-0.9 [facility] Work Phone: [phone] Comment on above: IG% - Immature Granu locytes (promyelocytes, myelocytes and metamyelocytes) > 1% indicates that a LEFT SHIFT is Present. MCH (RBC) [Entitic mass] 29.0 pg 27.0-32.0 [facility] Work Phone: Nucleated RBC/100 WBC (Bld) [Ratio] 0 % 0-5 [facility] Work Phone: MCHC Auto (RBC) [Mass/Vol]on 05-08-2022 MCHC (RBC) [Mass/Vol] 31.2 g/dL 32-36 [facility] Work Phone: Mucus LM Ql (Urine sed)on Mucus Ql (Urine sed) 0 SEEN /hpf [facility] Work Phone: Nitrite Test strip Ql (U)on 05-08-2022 Nitrite Ql (U) Negative Negative [facility] Work Phone: No Panel Informationon 05-08 Estimated Creatinine Clearance Calc 23.20 ml/min [facility] Work Phone: Estimated GFR (MDRD) Amer 49 mL/min >60 [facility] Work Phone: Comment on above: GFR Calc Estimated GFR (MDRD) Non-Af Amer 41 mL/min >60 [facility] Work Phone: Comment on above: Non- GFR Calc Troponin I High Sensitivity 8 pg/mL 3.0-54.0 [facility] Work Phone: Comment on above: Please Note: New Jessica t Units and Gender Specific Reference Ranges. For more information see Policy Stat Procedure [place] High Sensitivity Troponin (TNIH) and attachments. Platelets bldon 05-08-2022 Platelets (Bld) [#/Vol] 190 10*3/uL 150-450 [facility] Work Phone: Protein Test strip Ql (U)on 05-08-2022 Protein Ql (U) Negative Negative [facility] Work Phone: Serum or plasma albumin lakeisha urement (mass/volume)on 05-08-2022 Albumin [Mass/Vol] 3.2 g/dL 3.2-5.0 [facility] Work Phone: Serum or plasma albumin/glob ulin mass ratioon 05-08-2022 Albumin/Globulin [Mass ratio] 0.8 {ratio} 0.9-2.4 [facility] Work Phone: Serum or plasma calcium lakeisha urement (mass/volume)on 05-08-2022 Calcium [Mass/Vol] 9.2 mg/dL 8.5-10.1 [facility] Work Phone: Serum or plasma creatinine m easurement (mass/volume)on 05-08-2022 Creatinine [Mass/Vol] 1.32 mg/dL 0.55-1.02 [facility] Work Phone: Comment on above: The validity of the calculated GFR & GFRAA in patients over 70 years has not been determined. Clinical correlation is essential. Serum or plasma urea nitroge n measurement (mass/volume)on 05-08-2022 Urea nitrogen [Mass/Vol] 30 mg/dL 7-18 [facility] Work Phone: Squamous epithelial cells de tection in urine sediment by light microscopyon 05-08-2022 Epithelial cells.squamous LM Ql (Urine sed) 0-5 SEEN /hpf 5-10 [facility] Work Phone: Thin prep Papanicolaou smear with manual screeningon 05-08-2022 Thin prep Papanicolaou smear with manual screening 13 U/L 15-37 [facility] Work Phone: Thin prep Papanicolaou smear with manual screening 6 5-15 [facility] Work Phone: Urine blood detectionon 04-26 RBC Ql (U) Negative Negative [facility] Work Phone: RBC Ql (U) 0-5 SEEN /hpf 0-5 [facility] Work Phone: Urine clarityon 05-08-2022 Clarity (U) Clear Clear [facility] Work Phone: Urine color determinationon 05-08-2022 Color (U) Yellow Yellow [facility] Work Phone: Urine glucose detectionon Glucose Ql (U) Normal mg/dl Normal [facility] Work Phone: Urine leukocyte esterase det ection by dipstickon 05-08-2022 Leukocyte esterase Test strip Ql (U) Negative Negative [facility] Work Phone: Urine pHon 05-08-2022 pH (U) 6.5 [pH] 5.0 - 8.0 [facility] Work Phone: Urine sediment bacteria coun t by microscopy (number/high power field)on 05-08-2022 Bacteria LM.HPF (Urine sed) [#/Area] RARE /hpf None Seen [facility] Work Phone: [phone] Urine specific gravity measu rementon 05-08-2022 Specific gravity (U) [Rel density] 1.010 1.002-1.03 0 [facility] Work Phone: Urobilinogen Auto test strip Ql (U)on 05-08-2022 Urobilinogen Ql (U) Normal mg/dl Normal [facility] Work Phone: Absolute lymphocyte counton 03-19-2022 Lymphocytes Auto (Unsp spec) [#/Vol] 1.22 10*3/uL 0.83-4.51 [facility] Work Phone: Basophil percentageon 2021 Basophils/100 WBC (Bld) 0.6 % 0-1 [facility] Work Phone: Bilirubin [Mass/Vol] 0.30 mg/dL 0.20-1.00 [facility] Work Phone: Comment on above: For patients on eltr ombopag therapy, use of Dimension [place] TBIL is not recommended. Chloride [Moles/Vol] 107 mmol/L 98-107 [facility] Work Phone: Eosinophils/100 WBC (Bld) 2.2 % 0-5 [facility] Work Phone: Glucose [Mass/Vol] 87 mg/dL 74-106 [facility] Work Phone: Neutrophils (Bld) [#/Vol] 6.1 10*3/uL 2.0-7.7 [facility] Work Phone: Neutrophils/100 WBC (Bld) 74.2 % 47-70 [facility] Work Phone: Potassium [Moles/Vol] 5.1 mmol/L 3.5-5.1 [facility] Work Phone: Protein [Mass/Vol] 7.8 g/dL 6.4-8.2 [facility] Work Phone: Sodium [Moles/Vol] 136 mmol/L 136-145 [facility] Work Phone: WBC (Bld) [#/Vol] 8.2 10*3/uL 4.4-11.0 [facility] Work Phone: Blood erythrocytes count (nu mber/volume)on 03-19-2022 RBC (Bld) [#/Vol] 3.73 10*6/uL 4.2-5.4 [facility] Work Phone: [phone] Blood hemoglobin measurement (mass/volume)on 03-19-2022 Hemoglobin (Bld) [Mass/Vol] 11.2 g/dL 12.0-15.0 [facility] Work Phone: Blood lymphocytes/100 leukoc yteson 03-19-2022 Lymphocytes/100 WBC (Bld) 15.0 % 19-41 [facility] Work Phone: Blood monocytes/100 leukocyt eson 03-19-2022 Monocytes/100 WBC (Bld) 7.6 % 0-10 [facility] Work Phone: Blood platelet mean volumeon 03-19-2022 Platelet mean volume (Bld) [Entitic vol] 10.3 fL 6.2-12.0 [facility] Work Phone: [phone] Determination of erythrocyte mean corpuscular volume (MCV)on 03-19-2022 MCV (RBC) [Entitic vol] 93.8 fL 81-99 [facility] Work Phone: Hematocrit Auto (Bld) [Volum e fraction]on 03-19-2022 Hematocrit (Bld) [Volume fraction] 35.0 % 37-47 [facility] Work Phone: [phone] Laboratory - Chemistry and C hemistry - challengeon 03-19-2022 Albumin [Mass/Vol] 3.7 g/dL 2.9-4.4 [facility] Work Phone: ALP [Catalytic activity/Vol] 80 U/L 45-117 [facility] Work Phone: ALT [Catalytic activity/Vol] 17 U/L 13-56 [facility] Work Phone: CO2 [Moles/Vol] 24.0 mmol/L 21.0-32.0 [facility] Work Phone: [phone] Globulin (S) [Mass/Vol] 4.4 g/dL 2.2-4.2 [facility] Work Phone: [phone] Urea nitrogen/Creatinine [Mass ratio] 32.5 mg/mg 10-20 [facility] Work Phone: Laboratory - Hematology and Cell countson 03-19-2022 Erythrocyte distribution width (RBC) [Entitic vol] 46.2 fL 35.1-43.9 [facility] Work Phone: [phone] Erythrocyte distribution width (RBC) [Ratio] 13.4 % 11.6-14.6 [facility] Work Phone: [phone] Immature granulocytes/100 WBC (Bld) 0.400 % 0.0-0.9 [facility] Work Phone: [phone] Comment on above: IG% - Immature Granu locytes (promyelocytes, myelocytes and metamyelocytes) > 1% indicates that a LEFT SHIFT is Present. MCH (RBC) [Entitic mass] 30.0 pg 27.0-32.0 [facility] Work Phone: [phone] Nucleated RBC/100 WBC (Bld) [Ratio] 0 % 0-5 [facility] Work Phone: [phone] MCHC Auto (RBC) [Mass/Vol]on 03-19-2022 MCHC (RBC) [Mass/Vol] 32.0 g/dL 32-36 [facility] Work Phone: [phone] No Panel Informationon 03-19 Addendum Document Comment . [facility] Work Phone: Comment on above: Faint band in gamma region suspicious for monoclonalimmunoglobulin. This band may represent a benign spike asseen in older people or could be a paraprotein as seen inMultiple Myeloma, Waldenstrom's Macroglobulinemia orLymphoma. Depending on clinical circumstances, furtherdiagnostic studies may include serum immunofixation orserum free light chain quantitation.Performed at: [facility] [id number] Director: Zane Barroso PhD, Phone: [phone] [id number] 0.2 g/dL 0.0-0.4 [facility] Work Phone: [id number]-[id number] 0.8 g/dL 0.4-1.0 [facility] Work Phone: Estimated GFR (MDRD) Amer 40 mL/min >60 [facility] Work Phone: Comment on above: GFR Calc Estimated GFR (MDRD) Non-Af Amer 33 mL/min >60 [facility] Work Phone: Comment on above: Non- GFR Calc Gamma Globulins 1.6 g/dL 0.4-1.8 [facility] Work Phone: Platelets bldon 03-19-2022 Platelets (Bld) [#/Vol] 228 10*3/uL 150-450 [facility] Work Phone: Protein Fractions Elph [Inte rp]on 03-19-2022 Protein Fractions [Interp] Comment . [facility] Work Phone: Comment on above: Protein electrophore sis scan will follow via computer,mail, or estate planning paralegal delivery. Serum albumin to globulin ra jean-paul by protein electrophoresison 03-19-2022 Albumin/Globulin Elph [Mass ratio] 1.0 0.7-1.7 [facility] Work Phone: Serum globulin measurement ( mass/volume)on 03-19-2022 Globulin (S) [Mass/Vol] 3.7 g/dL 2.2-3.9 [facility] Work Phone: Serum or plasma C reactive p rotein measurement (mass/volume)on 03-19-2022 CRP [Mass/Vol] mg/L 0.0-3.0 [facility] Work Phone: Comment on above: C-Reactive Protein ( CRP) provides useful information for thediagnosis, therapy and monitoring of inflammatory processesand associated diseases. For the evaluation of Relative Riskfor Cardiovascular Disease, a High Sensitivity CRP (HSCRP)should be ordered. Serum or plasma albumin lakeisha urement (mass/volume)on 03-19-2022 Albumin [Mass/Vol] 3.4 g/dL 3.2-5.0 [facility] Work Phone: Serum or plasma albumin/glob ulin mass ratioon 03-19-2022 Albumin/Globulin [Mass ratio] 0.8 {ratio} 0.9-2.4 [facility] Work Phone: Serum or plasma beta globuli n measurement by electrophoresis (mass/volume)on 03-19-2022 Beta globulin Elph [Mass/Vol] 1.1 g/dL 0.7-1.3 [facility] Work Phone: Serum or plasma calcium lakeisha urement (mass/volume)on 03-19-2022 Calcium [Mass/Vol] 9.3 mg/dL 8.5-10.1 [facility] Work Phone: Serum or plasma creatinine m easurement (mass/volume)on 03-19-2022 Creatinine [Mass/Vol] 1.60 mg/dL 0.55-1.02 [facility] Work Phone: Comment on above: The validity of the calculated GFR & GFRAA in patients over 70 years has not been determined. Clinical correlation is essential. Serum or plasma urea nitroge n measurement (mass/volume)on 03-19-2022 Urea nitrogen [Mass/Vol] 52 mg/dL 7-18 [facility] Work Phone: Thin prep Papanicolaou smear with manual screeningon 03-19-2022 Thin prep Papanicolaou smear with manual screening 14 U/L 15-37 [facility] Work Phone: Thin prep Papanicolaou smear with manual screening 5 5-15 [facility] Work Phone: Thin prep Papanicolaou smear with manual screening See comment [facility] Work Phone: [phone] Comment on above: ASYMMETRICAL GAMMA Total protein bloodon 2021 Protein [Mass/Vol] 7.4 g/dL 6.0-8.5 [facility] Work Phone: [phone] Absolute lymphocyte counton 01-18-2022 Lymphocytes Auto (Unsp spec) [#/Vol] 0.89 10*3/uL 0.83-4.51 [facility] Work Phone: Basophil percentageon 2021 Basophils/100 WBC (Bld) 0.0 % 0-1 [facility] Work Phone: Chloride [Moles/Vol] 104 mmol/L 98-107 [facility] Work Phone: Eosinophils/100 WBC (Bld) 1.3 % 0-5 [facility] Work Phone: Glucose [Mass/Vol] 92 mg/dL 74-106 [facility] Work Phone: Neutrophils (Bld) [#/Vol] 1.7 10*3/uL 2.0-7.7 [facility] Work Phone: Neutrophils/100 WBC (Bld) 55.8 % 47-70 [facility] Work Phone: Potassium [Moles/Vol] 4.7 mmol/L 3.5-5.1 [facility] Work Phone: [phone] Comment on above: Moderate Hemolysis, Result may be falsely increased. Sodium [Moles/Vol] 137 mmol/L 136-145 [facility] Work Phone: WBC (Bld) [#/Vol] 3.0 10*3/uL 4.4-11.0 [facility] Work Phone: Blood erythrocytes count (nu mber/volume)on 01-18-2022 RBC (Bld) [#/Vol] 4.02 10*6/uL 4.2-5.4 [facility] Work Phone: [phone] Blood hemoglobin measurement (mass/volume)on 01-18-2022 Hemoglobin (Bld) [Mass/Vol] 11.5 g/dL 12.0-15.0 [facility] Work Phone: Blood lymphocytes/100 leukoc yteson 01-18-2022 Lymphocytes/100 WBC (Bld) 29.6 % 19-41 [facility] Work Phone: Blood monocytes/100 leukocyt eson 01-18-2022 Monocytes/100 WBC (Bld) 13.0 % 0-10 [facility] Work Phone: Blood platelet mean volumeon 01-18-2022 Platelet mean volume (Bld) [Entitic vol] 10.5 fL 6.2-12.0 [facility] Work Phone: [phone] Determination of erythrocyte mean corpuscular volume (MCV)on 01-18-2022 MCV (RBC) [Entitic vol] 88.8 fL 81-99 [facility] Work Phone: [phone] Hematocrit Auto (Bld) [Volum e fraction]on 01-18-2022 Hematocrit (Bld) [Volume fraction] 35.7 % 37-47 [facility] Work Phone: [phone] Laboratory - Chemistry and C hemistry - challengeon 01-18-2022 CO2 [Moles/Vol] 27.0 mmol/L 21.0-32.0 [facility] Work Phone: [phone] Urea nitrogen/Creatinine [Mass ratio] 30.2 mg/mg 10-20 [facility] Work Phone: Laboratory - Hematology and Cell countson 01-18-2022 Erythrocyte distribution width (RBC) [Entitic vol] 45.8 fL 35.1-43.9 [facility] Work Phone: [phone] Erythrocyte distribution width (RBC) [Ratio] 14.0 % 11.6-14.6 [facility] Work Phone: [phone] Immature granulocytes/100 WBC (Bld) 0.300 % 0.0-0.9 [facility] Work Phone: Comment on above: IG% - Immature Granu locytes (promyelocytes, myelocytes and metamyelocytes) > 1% indicates that a LEFT SHIFT is Present. MCH (RBC) [Entitic mass] 28.6 pg 27.0-32.0 [facility] Work Phone: Nucleated RBC/100 WBC (Bld) [Ratio] 0 % 0-5 [facility] Work Phone: MCHC Auto (RBC) [Mass/Vol]on 01-18-2022 MCHC (RBC) [Mass/Vol] 32.2 g/dL 32-36 [facility] Work Phone: No Panel Informationon 01-18 Estimated Creatinine Clearance Calc 18.90 ml/min [facility] Work Phone: Estimated GFR (MDRD) Amer 39 mL/min >60 [facility] Work Phone: Comment on above: GFR Calc Estimated GFR (MDRD) Non-Af Amer 32 mL/min >60 [facility] Work Phone: Comment on above: Non- GFR Calc Platelets bldon 01-18-2022 Platelets (Bld) [#/Vol] 172 10*3/uL 150-450 [facility] Work Phone: Serum or plasma calcium lakeisha urement (mass/volume)on 01-18-2022 Calcium [Mass/Vol] 9.4 mg/dL 8.5-10.1 [facility] Work Phone: Serum or plasma creatinine m easurement (mass/volume)on 01-18-2022 Creatinine [Mass/Vol] 1.62 mg/dL 0.55-1.02 [facility] Work Phone: Comment on above: The validity of the calculated GFR & GFRAA in patients over 70 years has not been determined. Clinical correlation is essential. Serum or plasma urea nitroge n measurement (mass/volume)on 01-18-2022 Urea nitrogen [Mass/Vol] 49 mg/dL 7-18 [facility] Work Phone: Thin prep Papanicolaou smear with manual screeningon 01-18-2022 Thin prep Papanicolaou smear with manual screening 6 5-15 [facility] Work Phone: Absolute lymphocyte counton 01-16-2022 Lymphocytes Auto (Unsp spec) [#/Vol] 0.70 10*3/uL 0.83-4.51 [facility] Work Phone: Basophil percentageon 2021 Basophils/100 WBC (Bld) 0.3 % 0-1 [facility] Work Phone: Chloride [Moles/Vol] 105 mmol/L 98-107 [facility] Work Phone: Eosinophils/100 WBC (Bld) 0.9 % 0-5 [facility] Work Phone: Glucose [Mass/Vol] 91 mg/dL 74-106 [facility] Work Phone: Neutrophils (Bld) [#/Vol] 2.5 10*3/uL 2.0-7.7 [facility] Work Phone: Neutrophils/100 WBC (Bld) 70.5 % 47-70 [facility] Work Phone: Potassium [Moles/Vol] 4.7 mmol/L 3.5-5.1 [facility] Work Phone: Comment on above: Slight Hemolysis, Re sult may be falsely increased. Sodium [Moles/Vol] 136 mmol/L 136-145 [facility] Work Phone: WBC (Bld) [#/Vol] 3.5 10*3/uL 4.4-11.0 [facility] Work Phone: Blood erythrocytes count (nu mber/volume)on 01-16-2022 RBC (Bld) [#/Vol] 4.41 10*6/uL 4.2-5.4 [facility] Work Phone: Blood hemoglobin measurement (mass/volume)on 01-16-2022 Hemoglobin (Bld) [Mass/Vol] 12.7 g/dL 12.0-15.0 [facility] Work Phone: Blood lymphocytes/100 leukoc yteson 01-16-2022 Lymphocytes/100 WBC (Bld) 20.2 % 19-41 [facility] Work Phone: Blood monocytes/100 leukocyt eson 01-16-2022 Monocytes/100 WBC (Bld) 7.8 % 0-10 [facility] Work Phone: Blood platelet mean volumeon 01-16-2022 Platelet mean volume (Bld) [Entitic vol] 10.4 fL 6.2-12.0 [facility] Work Phone: [phone] Determination of erythrocyte mean corpuscular volume (MCV)on 01-16-2022 MCV (RBC) [Entitic vol] 90.0 fL 81-99 [facility] Work Phone: [phone] Hematocrit Auto (Bld) [Volum e fraction]on 01-16-2022 Hematocrit (Bld) [Volume fraction] 39.7 % 37-47 [facility] Work Phone: [phone] Laboratory - Chemistry and C hemistry - challengeon 01-16-2022 CO2 [Moles/Vol] 26.0 mmol/L 21.0-32.0 [facility] Work Phone: [phone] Natriuretic peptide B (Bld) [Mass/Vol] 168.5 pg/mL 0-100 [facility] Work Phone: [phone] Urea nitrogen/Creatinine [Mass ratio] 25.4 mg/mg 10-20 [facility] Work Phone: Laboratory - Hematology and Cell countson 01-16-2022 Erythrocyte distribution width (RBC) [Entitic vol] 46.9 fL 35.1-43.9 [facility] Work Phone: [phone] Erythrocyte distribution width (RBC) [Ratio] 14.0 % 11.6-14.6 [facility] Work Phone: [phone] Immature granulocytes/100 WBC (Bld) 0.300 % 0.0-0.9 [facility] Work Phone: Comment on above: IG% - Immature Granu locytes (promyelocytes, myelocytes and metamyelocytes) > 1% indicates that a LEFT SHIFT is Present. MCH (RBC) [Entitic mass] 28.8 pg 27.0-32.0 [facility] Work Phone: Nucleated RBC/100 WBC (Bld) [Ratio] 0 % 0-5 [facility] Work Phone: MCHC Auto (RBC) [Mass/Vol]on 01-16-2022 MCHC (RBC) [Mass/Vol] 32.0 g/dL 32-36 [facility] Work Phone: No Panel Informationon 01-16 Estimated Creatinine Clearance Calc 48.89 ml/min [facility] Work Phone: Estimated GFR (MDRD) Amer 56 mL/min >60 [facility] Work Phone: Comment on above: GFR Calc Estimated GFR (MDRD) Non-Af Amer 46 mL/min >60 [facility] Work Phone: Comment on above: Non- GFR Calc Troponin I High Sensitivity 10 pg/mL 3.0-54.0 [facility] Work Phone: Comment on above: Please Note: New Jessica t Units and Gender Specific Reference Ranges. For more information see Policy Stat Procedure [place] High Sensitivity Troponin (TNIH) and attachments. SARS-CoV-2 & FLU Antigen (Rapid) SARS-CoV-2 (COVID 19) [facility] Work Phone: Platelets bldon 01-16-2022 Platelets (Bld) [#/Vol] 166 10*3/uL 150-450 [facility] Work Phone: Serum or plasma calcium lakeisha urement (mass/volume)on 01-16-2022 Calcium [Mass/Vol] 9.6 mg/dL 8.5-10.1 [facility] Work Phone: Serum or plasma creatinine m easurement (mass/volume)on 01-16-2022 Creatinine [Mass/Vol] 1.18 mg/dL 0.55-1.02 [facility] Work Phone: Comment on above: The validity of the calculated GFR & GFRAA in patients over 70 years has not been determined. Clinical correlation is essential. Serum or plasma urea nitroge n measurement (mass/volume)on 01-16-2022 Urea nitrogen [Mass/Vol] 30 mg/dL 7-18 [facility] Work Phone: Thin prep Papanicolaou smear with manual screeningon 01-16-2022 Thin prep Papanicolaou smear with manual screening 5 5-15 [facility] Work Phone: [phone] Absolute lymphocyte counton 12-25-2021 Lymphocytes Auto (Unsp spec) [#/Vol] 0.82 10*3/uL 0.83-4.51 [facility] Work Phone: [phone] Basophil percentageon 2021 Basophils/100 WBC (Bld) 0.5 % 0-1 [facility] Work Phone: [phone] Bilirubin [Mass/Vol] 0.50 mg/dL 0.20-1.00 [facility] Work Phone: Comment on above: For patients on eltr ombopag therapy, use of Dimension [place] TBIL is not recommended. Chloride [Moles/Vol] 104 mmol/L 98-107 [facility] Work Phone: [phone] Eosinophils/100 WBC (Bld) 2.3 % 0-5 [facility] Work Phone: [phone] Glucose [Mass/Vol] 94 mg/dL 74-106 [facility] Work Phone: [phone] Neutrophils (Bld) [#/Vol] 4.1 10*3/uL 2.0-7.7 [facility] Work Phone: Neutrophils/100 WBC (Bld) 71.4 % 47-70 [facility] Work Phone: [phone] Potassium [Moles/Vol] 4.0 mmol/L 3.5-5.1 [facility] Work Phone: [phone] Protein [Mass/Vol] 7.4 g/dL 6.4-8.2 [facility] Work Phone: Sodium [Moles/Vol] 138 mmol/L 136-145 [facility] Work Phone: WBC (Bld) [#/Vol] 5.8 10*3/uL 4.4-11.0 [facility] Work Phone: Blood erythrocytes count (nu mber/volume)on 12-25-2021 RBC (Bld) [#/Vol] 4.21 10*6/uL 4.2-5.4 [facility] Work Phone: [phone] Blood hemoglobin measurement (mass/volume)on 12-25-2021 Hemoglobin (Bld) [Mass/Vol] 11.9 g/dL 12.0-15.0 [facility] Work Phone: Blood lymphocytes/100 leukoc yteson 12-25-2021 Lymphocytes/100 WBC (Bld) 14.2 % 19-41 [facility] Work Phone: Blood monocytes/100 leukocyt eson 12-25-2021 Monocytes/100 WBC (Bld) 11.3 % 0-10 [facility] Work Phone: Blood platelet mean volumeon 12-25-2021 Platelet mean volume (Bld) [Entitic vol] 11.0 fL 6.2-12.0 [facility] Work Phone: [phone] Determination of erythrocyte mean corpuscular volume (MCV)on 12-25-2021 MCV (RBC) [Entitic vol] 90.3 fL 81-99 [facility] Work Phone: Hematocrit Auto (Bld) [Volum e fraction]on 12-25-2021 Hematocrit (Bld) [Volume fraction] 38.0 % 37-47 [facility] Work Phone: [phone] Laboratory - Chemistry and C hemistry - challengeon 12-25-2021 ALP [Catalytic activity/Vol] 71 U/L 45-117 [facility] Work Phone: [phone] ALT [Catalytic activity/Vol] 16 U/L 13-56 [facility] Work Phone: CO2 [Moles/Vol] 28.0 mmol/L 21.0-32.0 [facility] Work Phone: Globulin (S) [Mass/Vol] 4.0 g/dL 2.2-4.2 [facility] Work Phone: [phone] Magnesium [Mass/Vol] 2.3 mg/dL 1.6-2.6 [facility]: Natriuretic peptide B (Bld) [Mass/Vol] 140.7 pg/mL 0-100 [facility] Work Phone: [phone] Urea nitrogen/Creatinine [Mass ratio] 21.5 mg/mg 10-20 [facility] Work Phone: [phone] Laboratory - Hematology and Cell countson 12-25-2021 Erythrocyte distribution width (RBC) [Entitic vol] 48.8 fL 35.1-43.9 [facility] Work Phone: [phone] Erythrocyte distribution width (RBC) [Ratio] 14.8 % 11.6-14.6 [facility] Work Phone: [phone] Immature granulocytes/100 WBC (Bld) 0.300 % 0.0-0.9 [facility] Work Phone: [phone] Comment on above: IG% - Immature Granu locytes (promyelocytes, myelocytes and metamyelocytes) > 1% indicates that a LEFT SHIFT is Present. MCH (RBC) [Entitic mass] 28.3 pg 27.0-32.0 [facility] Work Phone: Nucleated RBC/100 WBC (Bld) [Ratio] 0 % 0-5 [facility] Work Phone: MCHC Auto (RBC) [Mass/Vol]on 12-25-2021 MCHC (RBC) [Mass/Vol] 31.3 g/dL 32-36 [facility] Work Phone: [phone] No Panel Informationon 12-25 Estimated GFR (MDRD) Amer 63 mL/min >60 [facility] Work Phone: Comment on above: GFR Calc Estimated GFR (MDRD) Non-Af Amer 52 mL/min >60 [facility] Work Phone: Comment on above: Non- GFR Calc Parathyroid Hormone (Intact) 162.9 pg/mL 18.4-80.1 [facility] Work Phone: Vitamin D 25-Hydroxy 33.8 ng/mL [facility] Work Phone: Comment on above: Vitamin D 25(OH) Sta tus Range Deficiency <20 ng/mL (50nmol/L) Insufficiency 20 - 30 ng/mL (50 - 75 nmol/L) Sufficiency 30 - 100 ng/mL (75 - 250 nmol/L) Toxicity >100 ng/mL (>250 nmol/L) Platelets bldon 12-25-2021 Platelets (Bld) [#/Vol] 192 10*3/uL 150-450 [facility] Work Phone: Serum or plasma albumin lakeisha urement (mass/volume)on 12-25-2021 Albumin [Mass/Vol] 3.4 g/dL 3.2-5.0 [facility] Work Phone: Serum or plasma albumin/glob ulin mass ratioon 12-25-2021 Albumin/Globulin [Mass ratio] 0.8 {ratio} 0.9-2.4 [facility] Work Phone: Serum or plasma calcium lakeisha urement (mass/volume)on 12-25-2021 Calcium [Mass/Vol] 9.4 mg/dL 8.5-10.1 [facility] Work Phone: Serum or plasma creatinine m easurement (mass/volume)on 12-25-2021 Creatinine [Mass/Vol] 1.07 mg/dL 0.55-1.02 [facility] Work Phone: Comment on above: The validity of the calculated GFR & GFRAA in patients over 70 years has not been determined. Clinical correlation is essential. Serum or plasma urea nitroge n measurement (mass/volume)on 12-25-2021 Urea nitrogen [Mass/Vol] 23 mg/dL 7-18 [facility] Work Phone: Thin prep Papanicolaou smear with manual screeningon 12-25-2021 Thin prep Papanicolaou smear with manual screening 19 U/L 15-37 [facility] Work Phone: Thin prep Papanicolaou smear with manual screening 6 5-15 [facility] Work Phone: Absolute lymphocyte counton 11-08-2021 Lymphocytes Auto (Unsp spec) [#/Vol] 1.36 10*3/uL 0.83-4.51 [facility] Work Phone: Basophil percentageon 2021 Basophils/100 WBC (Bld) 0.8 % 0-1 [facility] Work Phone: [phone] Bilirubin [Mass/Vol] 0.60 mg/dL 0.20-1.00 [facility] Work Phone: Comment on above: For patients on eltr ombopag therapy, use of Dimension [place] TBIL is not recommended. Chloride [Moles/Vol] 104 mmol/L 98-107 [facility] Work Phone: Eosinophils/100 WBC (Bld) 1.5 % 0-5 [facility] Work Phone: Glucose [Mass/Vol] 84 mg/dL 74-106 [facility] Work Phone: Neutrophils (Bld) [#/Vol] 5.2 10*3/uL 2.0-7.7 [facility] Work Phone: Neutrophils/100 WBC (Bld) 69.4 % 47-70 [facility] Work Phone: Potassium [Moles/Vol] 4.4 mmol/L 3.5-5.1 [facility] Work Phone: [phone] Protein [Mass/Vol] 8.4 g/dL 6.4-8.2 [facility] Work Phone: Sodium [Moles/Vol] 137 mmol/L 136-145 [facility] Work Phone: WBC (Bld) [#/Vol] 7.5 10*3/uL 4.4-11.0 [facility] Work Phone: Blood erythrocytes count (nu mber/volume)on 11-08-2021 RBC (Bld) [#/Vol] 4.64 10*6/uL 4.2-5.4 [facility] Work Phone: Blood hemoglobin measurement (mass/volume)on 11-08-2021 Hemoglobin (Bld) [Mass/Vol] 13.0 g/dL 12.0-15.0 [facility] Work Phone: Blood lymphocytes/100 leukoc yteson 11-08-2021 Lymphocytes/100 WBC (Bld) 18.1 % 19-41 [facility] Work Phone: Blood monocytes/100 leukocyt eson 11-08-2021 Monocytes/100 WBC (Bld) 9.8 % 0-10 [facility] Work Phone: Blood platelet mean volumeon 11-08-2021 Platelet mean volume (Bld) [Entitic vol] 10.8 fL 6.2-12.0 [facility] Work Phone: [phone] Determination of erythrocyte mean corpuscular volume (MCV)on 11-08-2021 MCV (RBC) [Entitic vol] 88.8 fL 81-99 [facility] Work Phone: Hematocrit Auto (Bld) [Volum e fraction]on 11-08-2021 Hematocrit (Bld) [Volume fraction] 41.2 % 37-47 [facility] Work Phone: [phone] Laboratory - Chemistry and C hemistry - challengeon 11-08-2021 ALP [Catalytic activity/Vol] 78 U/L 45-117 [facility] Work Phone: ALT [Catalytic activity/Vol] 17 U/L 13-56 [facility] Work Phone: CO2 [Moles/Vol] 28.0 mmol/L 21.0-32.0 [facility] Work Phone: Globulin (S) [Mass/Vol] 4.6 g/dL 2.2-4.2 [facility] Work Phone: Urea nitrogen/Creatinine [Mass ratio] 27.5 mg/mg 10-20 [facility] Work Phone: Laboratory - Hematology and Cell countson 11-08-2021 Erythrocyte distribution width (RBC) [Entitic vol] 45.7 fL 35.1-43.9 [facility] Work Phone: Erythrocyte distribution width (RBC) [Ratio] 14.3 % 11.6-14.6 [facility] Work Phone: Immature granulocytes/100 WBC (Bld) 0.400 % 0.0-0.9 [facility] Work Phone: Comment on above: IG% - Immature Granu locytes (promyelocytes, myelocytes and metamyelocytes) > 1% indicates that a LEFT SHIFT is Present. MCH (RBC) [Entitic mass] 28.0 pg 27.0-32.0 [facility] Work Phone: Nucleated RBC/100 WBC (Bld) [Ratio] 0 % 0-5 [facility] Work Phone: MCHC Auto (RBC) [Mass/Vol]on 11-08-2021 MCHC (RBC) [Mass/Vol] 31.6 g/dL 32-36 [facility] Work Phone: No Panel Informationon 11-08 Estimated GFR (MDRD) Amer 45 mL/min >60 [facility] Work Phone: Comment on above: GFR Calc Estimated GFR (MDRD) Non-Af Amer 38 mL/min >60 [facility] Work Phone: Comment on above: Non- GFR Calc Urine Microalbumin/Creatinine Ratio TNP [facility] Work Phone: Comment on above: Test not performed Platelets bldon 11-08-2021 Platelets (Bld) [#/Vol] 218 10*3/uL 150-450 [facility] Work Phone: Serum or plasma albumin lakeisha urement (mass/volume)on 11-08-2021 Albumin [Mass/Vol] 3.8 g/dL 3.2-5.0 [facility] Work Phone: Serum or plasma albumin/glob ulin mass ratioon 11-08-2021 Albumin/Globulin [Mass ratio] 0.8 {ratio} 0.9-2.4 [facility] Work Phone: Serum or plasma calcium lakeisha urement (mass/volume)on 11-08-2021 Calcium [Mass/Vol] 10.1 mg/dL 8.5-10.1 [facility] Work Phone: Serum or plasma creatinine m easurement (mass/volume)on 11-08-2021 Creatinine [Mass/Vol] 1.42 mg/dL 0.55-1.02 [facility] Work Phone: Comment on above: The validity of the calculated GFR & GFRAA in patients over 70 years has not been determined. Clinical correlation is essential. Serum or plasma urea nitroge n measurement (mass/volume)on 11-08-2021 Urea nitrogen [Mass/Vol] 39 mg/dL 7-18 [facility] Work Phone: Thin prep Papanicolaou smear with manual screeningon 11-08-2021 Thin prep Papanicolaou smear with manual screening 19 U/L 15-37 [facility] Work Phone: Thin prep Papanicolaou smear with manual screening 5 5-15 [facility] Work Phone: Thin prep Papanicolaou smear with manual screening < 5.0 mg/L NO RANGE EST. [facility] Work Phone: Urine creatinine measurement (mass/volume)on 11-08-2021 Creatinine (U) [Mass/Vol] 35.80 mg/dL NO RANGE EST. [facility] Work Phone: Absolute lymphocyte counton 10-24-2021 Lymphocytes Auto (Unsp spec) [#/Vol] 1.26 10*3/uL 0.83-4.51 [facility] Work Phone: Basophil percentageon 2021 Basophils/100 WBC (Bld) 0.6 % 0-1 [facility] Work Phone: Bilirubin [Mass/Vol] 0.30 mg/dL 0.20-1.00 [facility] Work Phone: Comment on above: For patients on eltr ombopag therapy, use of Dimension [place] TBIL is not recommended. Chloride [Moles/Vol] 103 mmol/L 98-107 [facility] Work Phone: Eosinophils/100 WBC (Bld) 1.6 % 0-5 [facility] Work Phone: Glucose [Mass/Vol] 89 mg/dL 74-106 [facility] Work Phone: Neutrophils (Bld) [#/Vol] 4.1 10*3/uL 2.0-7.7 [facility] Work Phone: Neutrophils/100 WBC (Bld) 64.7 % 47-70 [facility] Work Phone: Potassium [Moles/Vol] 3.4 mmol/L 3.5-5.1 [facility] Work Phone: Protein [Mass/Vol] 6.6 g/dL 6.4-8.2 [facility] Work Phone: Sodium [Moles/Vol] 137 mmol/L 136-145 [facility] Work Phone: WBC (Bld) [#/Vol] 6.3 10*3/uL 4.4-11.0 [facility] Work Phone: Blood erythrocytes count (nu mber/volume)on 10-24-2021 RBC (Bld) [#/Vol] 3.99 10*6/uL 4.2-5.4 [facility] Work Phone: Blood hemoglobin measurement (mass/volume)on 10-24-2021 Hemoglobin (Bld) [Mass/Vol] 11.2 g/dL 12.0-15.0 [facility] Work Phone: Blood lymphocytes/100 leukoc yteson 10-24-2021 Lymphocytes/100 WBC (Bld) 19.9 % 19-41 [facility] Work Phone: Blood monocytes/100 leukocyt eson 10-24-2021 Monocytes/100 WBC (Bld) 12.7 % 0-10 [facility] Work Phone: Blood platelet mean volumeon 10-24-2021 Platelet mean volume (Bld) [Entitic vol] 11.0 fL 6.2-12.0 [facility] Work Phone: [phone] Determination of erythrocyte mean corpuscular volume (MCV)on 10-24-2021 MCV (RBC) [Entitic vol] 88.5 fL 81-99 [facility] Work Phone: [phone] Hematocrit Auto (Bld) [Volum e fraction]on 10-24-2021 Hematocrit (Bld) [Volume fraction] 35.3 % 37-47 [facility] Work Phone: [phone] Laboratory - Chemistry and C hemistry - challengeon 10-24-2021 ALP [Catalytic activity/Vol] 69 U/L 45-117 [facility] Work Phone: [phone] ALT [Catalytic activity/Vol] 20 U/L 13-56 [facility] Work Phone: [phone] CO2 [Moles/Vol] 28.0 mmol/L 21.0-32.0 [facility] Work Phone: [phone] Globulin (S) [Mass/Vol] 3.9 g/dL 2.2-4.2 [facility] Work Phone: [phone] Urea nitrogen/Creatinine [Mass ratio] 21.5 mg/mg 10-20 [facility] Work Phone: [phone] Laboratory - Hematology and Cell countson 10-24-2021 Erythrocyte distribution width (RBC) [Entitic vol] 46.7 fL 35.1-43.9 [facility] Work Phone: Erythrocyte distribution width (RBC) [Ratio] 14.5 % 11.6-14.6 [facility] Work Phone: Immature granulocytes/100 WBC (Bld) 0.500 % 0.0-0.9 [facility] Work Phone: Comment on above: IG% - Immature Granu locytes (promyelocytes, myelocytes and metamyelocytes) > 1% indicates that a LEFT SHIFT is Present. MCH (RBC) [Entitic mass] 28.1 pg 27.0-32.0 [facility] Work Phone: Nucleated RBC/100 WBC (Bld) [Ratio] 0 % 0-5 [facility] Work Phone: MCHC Auto (RBC) [Mass/Vol]on 10-24-2021 MCHC (RBC) [Mass/Vol] 31.7 g/dL 32-36 [facility] Work Phone: No Panel Informationon 10-24 Estimated Creatinine Clearance Calc 59.01 ml/min [facility] Work Phone: Estimated GFR (MDRD) Amer 89 mL/min >60 [facility] Work Phone: Comment on above: GFR Calc Estimated GFR (MDRD) Non-Af Amer 74 mL/min >60 [facility] Work Phone: Comment on above: Non- GFR Calc Platelets bldon 10-24-2021 Platelets (Bld) [#/Vol] 164 10*3/uL 150-450 [facility] Work Phone: Serum or plasma albumin lakeisha urement (mass/volume)on 10-24-2021 Albumin [Mass/Vol] 2.7 g/dL 3.2-5.0 [facility] Work Phone: Serum or plasma albumin/glob ulin mass ratioon 10-24-2021 Albumin/Globulin [Mass ratio] 0.7 {ratio} 0.9-2.4 [facility] Work Phone: Serum or plasma calcium lakeisha urement (mass/volume)on 10-24-2021 Calcium [Mass/Vol] 8.6 mg/dL 8.5-10.1 [facility] Work Phone: Serum or plasma creatinine m easurement (mass/volume)on 10-24-2021 Creatinine [Mass/Vol] 0.79 mg/dL 0.55-1.02 [facility] Work Phone: Comment on above: The validity of the calculated GFR & GFRAA in patients over 70 years has not been determined. Clinical correlation is essential. Serum or plasma urea nitroge n measurement (mass/volume)on 10-24-2021 Urea nitrogen [Mass/Vol] 17 mg/dL 7-18 [facility] Work Phone: Thin prep Papanicolaou smear with manual screeningon 10-24-2021 Thin prep Papanicolaou smear with manual screening 20 U/L 15-37 [facility] Work Phone: Thin prep Papanicolaou smear with manual screening 6 5-15 [facility] Work Phone: Basophil percentageon 2021 Cholesterol [Mass/Vol] 152 mg/dL <200 [facility] Work Phone: Comment on above: <200 mg/dL Desirable 200-240 mg/dL Borderline >240 mg/dL High Risk Triglyceride [Mass/Vol] 98 mg/dL [facility] Work Phone: Comment on above: The drugs N-Acetylcy steine and Metamizole may falsely depress this assay.Serum Triglycerides Reference Interval Normal <150 mg/dL Borderline high 150 - 199 mg/dL High 200 - 499 mg/dL Very High > or = 500 mg/dL Serum or plasma cholesterol in HDL measurement (mass/volume)on 10-23-2021 Cholesterol in HDL [Mass/Vol] 59 mg/dL [facility] Work Phone: Comment on above: The drugs N-Acetylcy steine and Metamizole may falsely depress this assay. Reference Range HDL <40 mg/dL Low HDL Cholesterol HDL >or= 60 mg/dL High HDL Cholesterol Serum or plasma cholesterol in VLDL measurement (mass/volume)on 10-23-2021 Cholesterol in VLDL [Mass/Vol] 20 mg/dL 5-40 [facility] Work Phone: Serum or plasma low density lipoprotein (LDL) cholesterol measurement (mass/volume)on 10-23-2021 Cholesterol in LDL [Mass/Vol] 73 mg/dL 0-130 [facility] Work Phone: Whole blood hemoglobin A1c/t otal hemoglobin ratio (mass fraction)on 10-23-2021 HbA1c (Bld) [Mass fraction] 5.5 % 3.8-5.6 [facility] Work Phone: Comment on above: Normal < 5.7 % Predi abetic 5.7 - 6.4 % Diabetic >or= 6.5 % Please note range changes. Basophil percentageon 2021 Lactate [Moles/Vol] 1.6 mmol/L 0.4-2.0 [facility] Work Phone: INR in Blood by Coagulation assayon 10-22-2021 INR Coag (Bld) [Relative time] 1.1 {INR} [facility] Work Phone: Laboratory - Chemistry and C hemistry - challengeon 10-22-2021 Magnesium [Mass/Vol] 2.3 mg/dL 1.6-2.6 [facility] Work Phone: Natriuretic peptide B (Bld) [Mass/Vol] 556.4 pg/mL 0-100 [facility] Work Phone: Laboratory - Coagulationon 0 10-22-2021 aPTT Coag (Bld) [Time] 35.2 s 24.1-36.2 [facility] Work Phone: PT Coag (PPP) [Time] 13.5 s 11.7-14.9 [facility] Work Phone: Laboratory - Microbiology an d Antimicrobial susceptibilityon 10-22-2021 SARS-CoV-2 (COVID-19) RNA KEERTHI+probe Ql (Unsp spec) Not detected Not Detect [facility] Work Phone: Comment on above: Normal [...] Nom (Bld) No growth in 5 days. [facility] Work Phone: No Panel Informationon 10-22 Troponin I High Sensitivity 2200 pg/mL 3.0-54.0 [facility] Work Phone: Comment on above: Critical Result(s) C chip SANCHEZ RN at: 21:11:28 10/22/2021 by: Zayra Livingston. Results read back by same. Please Note: New Test Units and Gender Specific Reference Ranges. For more information see Policy Stat Procedure [place] High Sensitivity Troponin (TNIH) and attachments. Streptococcus pneumoniae Antigen (M [facility] Work Phone: Respiratory Panel (PCR) [facility] Work Phone: D-Dimer Quantitative (PE/DVT) 1.50 FEU/ug/m 0.27-0.49 [facility] Work Phone: Comment on above: D-Dimer ELEVATED (>0 .49): Additional studies and clinicalassessments are indicated to conclude diagnosis of:Deep Vein Thrombosis (DVT) or Pulmonary Embolism (PE)CRITICAL VALUE VERIFIED. CALLED TO LOLI IRIZARRY10/22/21 Jose Durant.RESULTS READ BACK BY SAME . [facility] Procalcitonin [Mass/Vol] 0.23 ng/mL 0.00-0.09 [facility] Work Phone: Comment on above: A [...] obtained. DX CERVICAL SPINE 2 OR 3 [facility] 01-17-2018 Protein mass conc Performed at [facility] APPROVED BY: Tito Green MD [...] and C2 spinous fractures are noted Normal [facility] DX CERVICAL SPINE 2 OR 3 [facility] 09-17-2017 DX CERVICAL SPINE 2 OR 3 VIEWS Performed at [facility] APPROVED BY: Tito Green MD Exam: [...] evidence of instability on dynamic views. Normal [facility] CT THORACIC SPINE W/O CONTRA STon 08-05-2017 CT THORACIC SPINE W/O CONTRAST Performed at [facility] APPROVED BY: Elian Nava MD CT [...] FRACTURE OF THE T6 VERTEBRAL BODY. Normal [facility] No Panel Information SARS-CoV-2 & FLU Antigen (Rapid) SARS-CoV-2 (COVID 19) [facility] Work Phone: SARS-CoV-2 & FLU Antigen (Rapid) [facility] Work Phone: Vital Signs Date Time Vital Sign Value Performing Clinician Facility 05-03-2025 13:37-0400 Body height 149.[address] Tyler Benitez MD Work Phone: [facility] 05-03-2025 13:37-0400 Body mass index (BMI) [Ratio] 36.3 kg/m2 Dr. Tyler Benitez MD Work Phone: [facility] 05-03-2025 13:37-0400 Body weight 81.[address] Tyler Benitez MD Work Phone: [facility] 05-03-2025 13:37-0400 Diastolic blood pressure 73 mm[Hg] Dr. Tyler Benitez MD Work Phone: [facility] 05-03-2025 13:37-0400 Heart rate 88 /min Dr. Tyler Benitez MD Work Phone: [facility] 05-03-2025 13:37-0400 Respiratory rate 18 /min Dr. Tyler Benitez MD Work Phone: [facility] 05-03-2025 13:37-0400 SaO2% (BldA) [Mass fraction] 96 % Dr. Tyler Benitez MD Work Phone: [facility] 05-03-2025 13:37-0400 Systolic blood pressure 137 mm[Hg] Dr. Tyler Benitez MD Work Phone: [facility] 04-08-2025 15:10-0400 Body height 152.4 cm Arya Archer MD Work Phone: [facility] Comment on above: previuos height used 04-08-2025 15:10-0400 Body mass index (BMI) [Ratio] 37.69 kg/m2 Arya Archer MD Work Phone: [facility] 04-08-2025 15:10-0400 Body temperature 98.1 [degF] Arya Archer MD Work Phone: [facility] 04-08-2025 15:10-0400 Body weight 87.54 kg Arya Archer MD Work Phone: [facility] Comment on above: previous weight used 04-08-2025 15:10-0400 Diastolic blood pressure 52 mm[Hg] Arya Archer MD Work Phone: [facility] 04-08-2025 15:10-0400 Heart rate 80 /min Arya Archer MD Work Phone: [facility] 04-08-2025 15:10-0400 Systolic blood pressure 123 mm[Hg] Arya Archer MD Work Phone: [facility] 03-02-2025 15:00-0400 Respiratory rate 18 /min Dr. Tyler Benitez MD Work Phone: [facility] 03-02-2025 15:00-0400 SaO2% (BldA) [Mass fraction] 100 % Dr. Tyler Benitez MD Work Phone: [facility] 03-02-2025 14:30-0400 Body temperature 96.9 [degF] Dr. Tyler Benitez MD Work Phone: [facility] 03-02-2025 14:30-0400 Diastolic blood pressure 96 mm[Hg] Dr. Tyler Benitez MD Work Phone: [facility] 03-02-2025 14:30-0400 Heart rate 67 /min Dr. Tyler Benitez MD Work Phone: 7(223)770-007471 [place] [address] 03-02-2025 14:30-0400 Systolic blood pressure 148 mm[Hg] Dr. Tyler Benitez MD Work Phone: 2(951)367-685760 [place] [address] 03-02-2025 11:24-0400 Body mass index (BMI) [Ratio] 37.5 kg/m2 Dr. Tyler Benitez MD Work Phone: 5(385)015-244614 [address] 03-02-2025 11:24-0400 Body weight 84.[address] Tyler Benitez MD Work Phone: 7(546)603-492371 [place] [address] 03-02-2025 10:13-0400 Body height 149.[address] Tyler Benitez MD Work Phone: 4(096)997-272814 [address] 11-10-2024 18:51-0400 Body temperature 98 [degF] Dr. Tyler Benitez MD Work Phone: 8(325)192-982014 [address] 11-10-2024 18:51-0400 Diastolic blood pressure 74 mm[Hg] Dr. Tyler Benitez MD Work Phone: 7(291)093-080671 [place] [address] 11-10-2024 18:51-0400 Heart rate 78 /min Dr. Tyler Benitez MD Work Phone: [facility] 11-10-2024 18:51-0400 Respiratory rate 16 /min Dr. Tyler Benitez MD Work Phone: [facility] 11-10-2024 18:51-0400 SaO2% (BldA) [Mass fraction] 97 % Dr. Tyler Benitez MD Work Phone: [facility] 11-10-2024 18:51-0400 Systolic blood pressure 149 mm[Hg] Dr. Tyler Benitez MD Work Phone: [facility] 11-10-2024 17:00-0400 Inhaled oxygen flow rate 3 L/min Dr. Tyler Benitez MD Work Phone: [facility] 11-10-2024 14:21-0400 Body mass index (BMI) [Ratio] 36.4 kg/m2 Dr. Tyler Benitez MD Work Phone: 2(011)148-723671 [place] [address] 11-10-2024 14:21-0400 Body weight 84.[address] Tyler Benitez MD Work Phone: 4(257)146-691171 [place] [address] 11-10-2024 14:18-0400 Body height 152.[address] Tyler Benitez MD Work Phone: 6(074)884-210771 [place] [address] 08-29-2023 16:11-0500 Body height 149.[address] Tyler Benitez Work Phone: 2(974)252-939171 [place] [address] 08-29-2023 16:11-0500 Body mass index (BMI) [Ratio] 37.3 kg/m2 Dr. Tyler Benitez Work Phone: 5(231)357-160371 [place] [address] 08-29-2023 16:11-0500 Body temperature 98.2 [degF] Dr. Tyler Benitez Work Phone: [facility] 08-29-2023 16:11-0500 Body weight 83.[address] Tyler Benitez Work Phone: [facility] 08-29-2023 16:11-0500 Diastolic blood pressure 84 mm[Hg] Dr. Tyler Benitez Work Phone: [facility] 08-29-2023 16:11-0500 Heart rate 94 /min Dr. Tyler Benitez Work Phone: [facility] 08-29-2023 16:11-0500 Respiratory rate 14 /min Dr. Tyler Benitez Work Phone: [facility] 08-29-2023 16:11-0500 SaO2% (BldA) [Mass fraction] 100 % Dr. Tyler Benitez Work Phone: [facility] 08-29-2023 16:11-0500 Systolic blood pressure 132 mm[Hg] Dr. Tyler Benitez Work Phone: [facility] 05-24-2023 08:03-0400 Body mass index (BMI) [Ratio] 36.8 kg/m2 Dr. Tyler Benitez Work Phone: [facility] 05-24-2023 08:03-0400 Body weight 82.[address] Tyler Benitez Work Phone: [facility] 05-24-2023 07:17-0400 Body height 149.[address] Tyler Benitez Work Phone: [facility] 05-24-2023 07:17-0400 Body temperature 97.5 [degF] Dr. Tyler Benitez Work Phone: [facility] 05-24-2023 07:17-0400 Diastolic blood pressure 88 mm[Hg] Dr. Tyler Benitez Work Phone: [facility] 05-24-2023 07:17-0400 Heart rate 75 /min Dr. Tyler Benitez Work Phone: [facility] 05-24-2023 07:17-0400 Respiratory rate 16 /min Dr. Tyler Benitez Work Phone: [facility] 05-24-2023 07:17-0400 SaO2% (BldA) [Mass fraction] 98 % Dr. Tyler Benitez Work Phone: [facility] 05-24-2023 07:17-0400 Systolic blood pressure 139 mm[Hg] Dr. Tyler Benitez Work Phone: [facility] 04-19-2023 16:51-0400 Body temperature 99.1 [degF] Dr. Tyler Benitez Work Phone: [facility] 04-19-2023 16:51-0400 Diastolic blood pressure 83 mm[Hg] Dr. Tyler Benitez Work Phone: [facility] 04-19-2023 16:51-0400 Heart rate 83 /min Dr. Tyler Benitez Work Phone: [facility] 04-19-2023 16:51-0400 Respiratory rate 18 /min Dr. Tyler Benitez Work Phone: [facility] 04-19-2023 16:51-0400 SaO2% (BldA) [Mass fraction] 98 % Dr. Tyler Benitez Work Phone: [facility] 04-19-2023 16:51-0400 Systolic blood pressure 153 mm[Hg] Dr. Tyler Benitez Work Phone: [facility] 04-19-2023 06:00-0400 Body mass index (BMI) [Ratio] 35.6 kg/m2 Dr. Tyler Benitez Work Phone: [facility] 04-19-2023 06:00-0400 Body weight 80.[address] Tyler Benitez Work Phone: [facility] 04-15-2023 16:08-0400 Body height 150.[address] Tyler Benitez Work Phone: [facility] 04-15-2023 15:32-0400 Body temperature 97.2 [degF] Dr. Tyler Benitez Work Phone: [facility] 04-15-2023 15:32-0400 Diastolic blood pressure 60 mm[Hg] Dr. Tyler Benitez Work Phone: [facility] 04-15-2023 15:32-0400 Heart rate 80 /min Dr. Tyler Benitez Work Phone: [facility] 04-15-2023 15:32-0400 Respiratory rate 18 /min Dr. Tyler Benitez Work Phone: [facility] 04-15-2023 15:32-0400 SaO2% (BldA) [Mass fraction] 95 % Dr. Tyler Benitez Work Phone: [facility] 04-15-2023 15:32-0400 Systolic blood pressure 152 mm[Hg] Dr. Tyler Benitez Work Phone: [facility] 04-15-2023 08:49-0400 Body height 150.[address] Tyler Benitez Work Phone: [facility] 04-05-2023 14:24-0400 Body temperature 96.2 [degF] Dr. Tyler Benitez Work Phone: [facility] 04-05-2023 14:24-0400 Diastolic blood pressure 93 mm[Hg] Dr. Tyler Benitez Work Phone: [facility] 04-05-2023 14:24-0400 Heart rate 114 /min Dr. Tyler Benitez Work Phone: [facility] 04-05-2023 14:24-0400 Respiratory rate 20 /min Dr. Tyler Benitez Work Phone: [facility] 04-05-2023 14:24-0400 SaO2% (BldA) [Mass fraction] 98 % Dr. Tyler Benitez Work Phone: [facility] 04-05-2023 14:24-0400 Systolic blood pressure 106 mm[Hg] Dr. Tyler Benitez Work Phone: [facility] 04-05-2023 00:46-0400 Diastolic blood pressure 61 mm[Hg] Dr. Tyler Benitez Work Phone: [facility] 04-05-2023 00:46-0400 Heart rate 97 /min Dr. Tyler Benitez Work Phone: [facility] 04-05-2023 00:46-0400 Systolic blood pressure 140 mm[Hg] Dr. Tyler Benitez Work Phone: [facility] 04-04-2023 22:00-0400 Respiratory rate 20 /min Dr. Tyler Benitez Work Phone: [facility] 04-04-2023 20:02-0400 Body mass index (BMI) [Ratio] 38.5 kg/m2 Dr. Tyler Benitez Work Phone: [facility] 04-04-2023 20:02-0400 Body weight 86.[address] Tyler Benitez Work Phone: [facility] 04-04-2023 19:32-0400 Body temperature 97.4 [degF] Dr. Tyler Benitez Work Phone: [facility] 04-04-2023 19:32-0400 SaO2% (BldA) [Mass fraction] 100 % Dr. Tyler Benitez Work Phone: [facility] 03-19-2023 17:00-0400 Body temperature 97.9 [degF] Dr. Tyler Benitez Work Phone: [facility] 03-19-2023 17:00-0400 Diastolic blood pressure 47 mm[Hg] Dr. Tyler Benitez Work Phone: [facility] 03-19-2023 17:00-0400 Heart rate 100 /min Dr. Tyler Benitez Work Phone: [facility] 03-19-2023 17:00-0400 Respiratory rate 18 /min Dr. Tyler Benitez Work Phone: [facility] 03-19-2023 17:00-0400 SaO2% (BldA) [Mass fraction] 100 % Dr. Tyler Benitez Work Phone: [facility] 03-19-2023 17:00-0400 Systolic blood pressure 129 mm[Hg] Dr. Tyler Benitez Work Phone: [facility] 03-18-2023 12:57-0400 Body weight [address] Tyler Benitez Work Phone: [facility] 03-18-2023 03:31-0400 Inhaled oxygen concentration 96 % Dr. Tyler Benitez Work Phone: [facility] 03-17-2023 21:58-0400 Inhaled oxygen flow rate 2 L/min Dr. Tyler Benitez Work Phone: [facility] 03-17-2023 16:03-0400 Body mass index (BMI) [Ratio] 38.2 kg/m2 Dr. Tyler Benitez Work Phone: [facility] 03-12-2023 15:33-0400 Diastolic blood pressure 77 mm[Hg] Dr. Tyler Benitez Work Phone: [facility] 03-12-2023 15:33-0400 Heart rate 65 /min Dr. Tyler Benitez Work Phone: [facility] 03-12-2023 15:33-0400 Respiratory rate 18 /min Dr. Tyler Benitez Work Phone: [facility] 03-12-2023 15:33-0400 SaO2% (BldA) [Mass fraction] 97 % Dr. Tyler Benitez Work Phone: [facility] 03-12-2023 15:33-0400 Systolic blood pressure 132 mm[Hg] Dr. Tyler Benitez Work Phone: [facility] 02-26-2023 19:00-0400 Body mass index (BMI) [Ratio] 38.5 kg/m2 Dr. Tyler Benitez Work Phone: [facility] 02-26-2023 19:00-0400 Body weight 86.[address] Tyler Benitez Work Phone: [facility] 02-26-2023 19:00-0400 SaO2% (BldA) [Mass fraction] 98 % Dr. Tyler Benitez Work Phone: [facility] 02-26-2023 18:37-0400 Body temperature 97.5 [degF] Dr. Tyler Benitez Work Phone: [facility] 02-26-2023 18:37-0400 Diastolic blood pressure 61 mm[Hg] Dr. Tyler Benitez Work Phone: [facility] 02-26-2023 18:37-0400 Heart rate 76 /min Dr. Tyler Benitez Work Phone: [facility] 02-26-2023 18:37-0400 Respiratory rate 18 /min Dr. Tyler Benitez Work Phone: [facility] 02-26-2023 18:37-0400 Systolic blood pressure 156 mm[Hg] Dr. Tyler Benitez Work Phone: [facility] 01-15-2023 22:49-0400 Diastolic blood pressure 78 mm[Hg] Dr. Tyler Benitez Work Phone: [facility] 01-15-2023 22:49-0400 Systolic blood pressure 124 mm[Hg] Dr. Tyler Benitez Work Phone: 1(926)226-779371 [place] [address] 01-15-2023 20:16-0400 Heart rate 79 /min Dr. Tyler Benitez Work Phone: 7(872)461-089360 [place] [address] 01-15-2023 20:16-0400 Respiratory rate 18 /min Dr. Tyler Benitez Work Phone: 2(133)207-139560 [place] [address] 01-15-2023 20:16-0400 SaO2% (BldA) [Mass fraction] 98 % Dr. Tyler Benitez Work Phone: 5(974)344-063671 [place] [address] 01-15-2023 18:17-0400 Body temperature 97.8 [degF] Dr. Tyler Benitez Work Phone: 0(715)046-102560 [place] [address] 01-15-2023 18:15-0400 Body mass index (BMI) [Ratio] 39.7 kg/m2 Dr. Tyler Benitez Work Phone: 3(007)676-254171 [place] [address] 01-15-2023 18:15-0400 Body weight 92.[address] Tyler Benitez Work Phone: [facility] 11-27-2022 15:25-0400 Body height 152.[address] Tyler Benitez Work Phone: 9(840)756-513571 [place] [address] 11-27-2022 15:25-0400 Body mass index (BMI) [Ratio] 37.5 kg/m2 Dr. Tyler Benitez Work Phone: 2(477)811-160471 [place] [address] 11-27-2022 15:25-0400 Body weight 87.[address] Tyler Benitez Work Phone: 3(985)381-552471 [place] [address] 11-27-2022 15:25-0400 Diastolic blood pressure 67 mm[Hg] Dr. Tyler Benitez Work Phone: [facility] 11-27-2022 15:25-0400 Heart rate 74 /min Dr. Tyler Benitez Work Phone: [facility] 11-27-2022 15:25-0400 Respiratory rate 20 /min Dr. Tyler Benitez Work Phone: [facility] 11-27-2022 15:25-0400 SaO2% (BldA) [Mass fraction] 99 % Dr. Tyler Benitez Work Phone: [facility] 11-27-2022 15:25-0400 Systolic blood pressure 134 mm[Hg] Dr. Tyler Benitez Work Phone: [facility] 05-20-2022 22:02-0400 Diastolic blood pressure 61 mm[Hg] Dr. Tyler Benitez Work Phone: [facility] Work Phone: 05-20-2022 22:02-0400 Heart rate 79 /min Dr. Tyler Benitez Work Phone: [facility] Work Phone: 05-20-2022 22:02-0400 Systolic blood pressure 147 mm[Hg] Dr. Tyler Benitez Work Phone: [facility] Work Phone: 05-20-2022 20:25-0400 Body height 152.[address] Tyler Benitez Work Phone: [facility] Work Phone: 05-20-2022 20:25-0400 Body mass index (BMI) [Ratio] 35.3 kg/m2 Dr. Tyler Benitez Work Phone: [facility] Work Phone: 05-20-2022 20:25-0400 Body temperature 97 [degF] Dr. Tyler Benitez Work Phone: [facility] Work Phone: 05-20-2022 20:25-0400 Body weight 82.[address] Tyler Benitez Work Phone: [facility] Work Phone: 05-20-2022 20:25-0400 Respiratory rate 18 /min Dr. Tyler Benitez Work Phone: [facility] Work Phone: 05-20-2022 20:25-0400 SaO2% (BldA) [Mass fraction] 100 % Dr. Tyler Benitez Work Phone: [facility] Work Phone: 05-16-2022 13:44-0400 Body mass index (BMI) [Ratio] 37 kg/m2 Dr. Tyler Benitez Work Phone: [facility] Work Phone: 05-16-2022 13:44-0400 Body weight 86.[address] Tyler Benitez Work Phone: [facility] Work Phone: 05-16-2022 13:44-0400 Diastolic blood pressure 65 mm[Hg] Dr. Tyler Benitez Work Phone: [facility] Work Phone: 05-16-2022 13:44-0400 Heart rate 62 /min Dr. Tyler Benitez Work Phone: [facility] Work Phone: 05-16-2022 13:44-0400 Respiratory rate 18 /min Dr. Tyler Benitez Work Phone: [facility] Work Phone: 05-16-2022 13:44-0400 Systolic blood pressure 142 mm[Hg] Dr. Tyler Benitez Work Phone: [facility] Work Phone: 05-08-2022 15:27-0400 Diastolic blood pressure 70 mm[Hg] Dr. Tyler Benitez Work Phone: [facility] Work Phone: 05-08-2022 15:27-0400 Heart rate 60 /min Dr. Tyler Benitez Work Phone: [facility] Work Phone: 05-08-2022 15:27-0400 Respiratory rate 18 /min Dr. Tyler Benitez Work Phone: [facility] Work Phone: 05-08-2022 15:27-0400 SaO2% (BldA) [Mass fraction] 98 % Dr. Tyler Benitez Work Phone: [facility] Work Phone: 05-08-2022 15:27-0400 Systolic blood pressure 143 mm[Hg] Dr. Tyler Benitez Work Phone: [facility] Work Phone: 05-08-2022 13:18-0400 Body height 152.[address] Tyler Benitez Work Phone: [facility] Work Phone: 05-08-2022 13:18-0400 Body mass index (BMI) [Ratio] 35.2 kg/m2 Dr. Tyler Benitez Work Phone: [facility] Work Phone: 05-08-2022 13:18-0400 Body temperature 97 [degF] Dr. Tyler Benitez Work Phone: [facility] Work Phone: 05-08-2022 13:18-0400 Body weight 81.[address] Tyler Benitez Work Phone: [facility] Work Phone: 04-16-2022 13:01-0400 Body mass index (BMI) [Ratio] 36.7 kg/m2 Dr. Tyler Benitez Work Phone: [facility] Work Phone: 04-16-2022 13:01-0400 Body weight 85.[address] Tyler Benitez Work Phone: [facility] Work Phone: 02-28-2022 14:21-0400 Body mass index (BMI) [Ratio] 35.7 kg/m2 Dr. Tyler Benitez Work Phone: [facility] Work Phone: 02-28-2022 14:21-0400 Body weight [address] Tyler Benitez Work Phone: [facility] Work Phone: 02-28-2022 14:21-0400 Diastolic blood pressure 56 mm[Hg] Dr. Tyler Benitez Work Phone: [facility] Work Phone: 02-28-2022 14:21-0400 Heart rate 80 /min Dr. Tyler Benitez Work Phone: [facility] Work Phone: 02-28-2022 14:21-0400 Respiratory rate 18 /min Dr. Tyler Benitez Work Phone: [facility] Work Phone: 02-28-2022 14:21-0400 Systolic blood pressure 113 mm[Hg] Dr. Tyler Benitez Work Phone: [facility] Work Phone: 01-18-2022 17:17-0400 Diastolic blood pressure 87 mm[Hg] Dr. Tyler Benitez Work Phone: [facility] Work Phone: 01-18-2022 17:17-0400 Heart rate 79 /min Dr. Tyler Benitez Work Phone: [facility] Work Phone: 01-18-2022 17:17-0400 Respiratory rate 16 /min Dr. Tyler Benitez Work Phone: [facility] Work Phone: 01-18-2022 17:17-0400 SaO2% (BldA) [Mass fraction] 99 % Dr. Tyler Benitez Work Phone: [facility] Work Phone: 01-18-2022 17:17-0400 Systolic blood pressure 144 mm[Hg] Dr. Tyler Benitez Work Phone: [facility] Work Phone: 01-18-2022 13:38-0400 Body temperature 96.9 [degF] Dr. Tyler Benitez Work Phone: [facility] Work Phone: 01-18-2022 13:34-0400 Body height 152.[address] Tyler Benitez Work Phone: [facility] Work Phone: 01-18-2022 13:34-0400 Body mass index (BMI) [Ratio] 36.1 kg/m2 Dr. Tyler Benitez Work Phone: [facility] Work Phone: 01-18-2022 13:34-0400 Body weight 83.[address] Tyler Benitez Work Phone: [facility] Work Phone: 01-16-2022 17:31-0400 Diastolic blood pressure 84 mm[Hg] Dr. Tyler Benitez Work Phone: [facility] Work Phone: 01-16-2022 17:31-0400 Heart rate 69 /min Dr. Tyler Benitez Work Phone: [facility] Work Phone: 01-16-2022 17:31-0400 Respiratory rate 18 /min Dr. Tyler Benitez Work Phone: [facility] Work Phone: 01-16-2022 17:31-0400 SaO2% (BldA) [Mass fraction] 98 % Dr. Tyler Benitez Work Phone: [facility] Work Phone: 01-16-2022 17:31-0400 Systolic blood pressure 171 mm[Hg] Dr. Tyler Benitez Work Phone: [facility] Work Phone: 01-16-2022 15:58-0400 Body temperature 98.2 [degF] Dr. Tyler Benitez Work Phone[facility] [facility] Work Phone: 01-16-2022 15:01-0400 Body height 149.[address] Tyler Benitez Work Phone: [facility] Work Phone: 01-16-2022 15:01-0400 Body mass index (BMI) [Ratio] 38.1 kg/m2 Dr. Tyler Benitez Work Phone: [facility] Work Phone: 01-16-2022 15:01-0400 Body weight 85.[address] Tyler Benitez Work Phone: [facility] Work Phone: 11-24-2021 15:32-0400 Body height 149.[address] Tyler Benitez Work Phone: [facility] Work Phone: 11-24-2021 15:32-0400 Body mass index (BMI) [Ratio] 36.5 kg/m2 Dr. Tyler Benitez Work Phone: [facility] Work Phone: 11-24-2021 15:32-0400 Body weight 82.[address] Tyler Benitez Work Phone: [facility] Work Phone: 11-24-2021 15:32-0400 Diastolic blood pressure 62 mm[Hg] Dr. Tyler Benitez Work Phone: [facility] Work Phone: 11-24-2021 15:32-0400 Heart rate 76 /min Dr. Tyler Benitez Work Phone: [facility] Work Phone: 11-24-2021 15:32-0400 Respiratory rate 16 /min Dr. Tyler Benitez Work Phone: [facility] Work Phone: 11-24-2021 15:32-0400 Systolic blood pressure 142 mm[Hg] Dr. Tyler Benitez Work Phone: [facility] Work Phone: 10-24-2021 13:56-0500 Body temperature 97.5 [degF] Dr. Tyler Benitez Work Phone: [facility] Work Phone: 10-24-2021 13:56-0500 Diastolic blood pressure 65 mm[Hg] Dr. Tyler Benitez Work Phone: [facility] Work Phone: 10-24-2021 13:56-0500 Heart rate 81 /min Dr. Tyler Benitez Work Phone: [facility] Work Phone: 10-24-2021 13:56-0500 Respiratory rate 20 /min Dr. Tyler Benitez Work Phone: [facility] Work Phone: 10-24-2021 13:56-0500 SaO2% (BldA) [Mass fraction] 96 % Dr. Tyler Benitez Work Phone: [facility] Work Phone: 10-24-2021 13:56-0500 Systolic blood pressure 143 mm[Hg] Dr. Tyler Benitez Work Phone: [facility] Work Phone: 10-23-2021 11:59-0500 Body weight 87.[address] Tyler Benitez Work Phone: [facility] Work Phone: 10-22-2021 16:29-0500 Body mass index (BMI) [Ratio] 38.8 kg/m2 Dr. Tyler Benitez Work Phone: [facility] Work Phone: Encounters Encounter Date Encounter Type Care Provider Facility Start: 06-14-2025 End: 06-14-2025 Emergency department patient visit Tyler Emmanuel Facility:[facility] Start: 05-03-2025 End: 05-03-[address] Danial Cook MD -[facility] Work Phone: Start: 05-03-2025 End: 05-03-[address] Tyler Benitez MD Work Phone: -[facility] Start: 04-08-2025 End: 04-08-2025 Patient encounter procedure Arya rAcher MD Work Phone: Rheumatology Comment on above: Osteoarthritis, gene ralized (Primary Dx) Start: 04-08-2025 End: 04-08-2025 ambulatory TYLER Evangelist BENITEZ Facility:[facility] Start: 03-17-2025 End: 03-17-2025 ambulatory Ana Rosa Ricketts PT Work Phone: [facility] Comment on above: Lymphedema of both l ower extremities (Primary Dx) Start: 03-17-2025 End: 03-17-2025 ambulatory TYLER Evangelist BENITEZ Facility:[facility] Start: 03-12-2025 End: 03-12-[address] Tyler Benitez MD Work Phone: -Cardiovascular Services Start: 03-12-2025 End: 03-12-[address] Danial Cook MD -Cardiovascular Services Work Phone: Start: 03-12-2025 ambulatory Tyler Benitez Facility:[facility] Start: 03-12-2025 Non-patient / Non-visit [facility]. Aldo DEAN -[facility] Start: 03-11-2025 End: 03-11-[address] Tyler Benitez MD Work Phone: -[facility] Start: 03-11-2025 End: 03-11-2025 Patient encounter procedure Radha Wood Work Phone: Podiatry Comment on above: Onychomycosis (Prima ry Dx); Pain in toe of left foot; Pain in toe of right foot; Ingrowing toenail of left foot; Pes planus of both feet; Callus Start: 03-11-2025 End: 03-12-2025 ambulatory TYLER BENITEZ Facility:[facility] Start: 03-11-2025 End: 03-11-2025 ambulatory Tyler Benitez Facility:[facility] Start: 03-02-2025 End: 03-02-2025 Emergency department patient visit Dr. Tyler Benitez MD Work Phone: -Emergency Department Work Phone: Start: 02-22-2025 ambulatory Tyler Benitez Facility:[facility] Start: 02-19-2025 End: 02-19-[address] Tyler Benitez MD Work Phone: -Laboratory Start: 02-19-2025 End: 02-19-[address] Danial Cook MD -Laboratory Work Phone: Start: 02-19-2025 End: 02-19-2025 Telephone encounter Prerna Lemon PT [facility] Physical Therapy Comment on above: Orders Start: 02-19-2025 End: 02-19-2025 ambulatory Tyler Benitez Facility:[facility] Start: 12-22-2024 [facility] Tyler Benitez Facility:[facility] Start: 11-24-2024 End: 11-24-2024 Telephone encounter Radha Wood Work Phone: Podiatry Comment on above: Patient Update Start: 11-20-2024 End: 11-20-2024 ambulatory Prerna Lemon PT [facility] Physical Therapy Comment on above: Lymphedema of both l ower extremities (Primary Dx) Start: 11-13-2024 End: 11-13-2024 ambulatory Prerna Lemon PT [facility] Therapy Comment on above: Lymphedema of both l ower extremities (Primary Dx) Start: 11-10-2024 End: 11-10-2024 Emergency department patient visit Dr. Tyler Benitez MD Work Phone: -Emergency Department Work Phone: Start: 11-09-2024 End: 03-17-2025 Telephone encounter Prerna Bonds PT [facility] Therapy Comment on above: Returning [...] hawkins spoke with nurse in [facility] ([facility]) who consulted physician on staff and [...] 10-30-2024 End: 10-30-2024 ambulatory Prerna Lemon PT [facility] Physical Therapy Comment on above: Lymphedema of both l ower extremities (Primary Dx) Start: 09-25-2024 End: 09-25-2024 ambulatory Prerna Lemon PT [facility] Therapy Comment on above: Lymphedema of both l ower extremities (Primary Dx) Start: 09-04-2024 End: 09-04-2024 ambulatory Prerna Lemon PT [facility] Physical Therapy Comment on above: Lymphedema of both l ower extremities (Primary Dx) Start: 08-27-2024 End: 08-27-[address] Alphonso Newell MD -[facility] Work Phone: Start: 08-27-2024 End: 08-27-2024 ambulatory Tyler Benitez Facility:[facility] Start: 08-21-2024 End: 08-21-[address] Alphonso Newell MD -[facility] Work Phone: Start: 08-21-2024 End: 08-21-2024 ambulatory Tyler Benitez Facility:[facility] Start: 08-11-2024 End: 08-11-[address] Alphonso Newell MD -[facility] Work Phone: Start: 08-11-2024 End: 08-11-2024 ambulatory Tyler Benitez Facility:[facility] Start: 08-11-2024 End: 08-11-2024 ambulatory Tyler Benitez Facility:[facility] Start: 07-30-2024 ambulatory Tyler Benitez Facility:[facility] Start: 07-17-2024 End: 07-17-2024 ambulatory Prerna Lemon PT [facility] Physical Therapy Comment on above: Lymphedema of both l ower extremities (Primary Dx) Start: 07-14-2024 End: 07-14-[address] Alphonso Newell MD -[facility] Work Phone: Start: 07-14-2024 End: 07-14-2024 ambulatory Tyler Benitez Facility:[facility] Start: 07-10-2024 End: 07-10-2024 ambulatory Prerna Lemon PT [facility] Physical Therapy Comment on above: Lymphedema of both l ower extremities (Primary Dx) Start: 06-24-2024 End: 06-24-2024 ambulatory Prerna Lemon PT [facility] Therapy Comment on above: Lymphedema of both l ower extremities (Primary Dx) Start: 06-19-2024 End: 06-19-2024 ambulatory Prerna Lemon PT [facility] Therapy Comment on above: Lymphedema of both l ower extremities (Primary Dx) Start: 06-12-2024 End: 06-12-2024 Telephone encounter Prerna Lemon PT [facility] Physical Therapy Comment on above: Returning Patient's Call (Returned pt's voicemail message requesting more PT visits and concern that her legs/feet are more swollen. /Therapist reviewed the appts that were already scheduled with pt and offered an appt for 06/15 that became available today d/t [facility]. Pt first stated she could only keep Saturday's visit (06/19) because her trailer tank truck driver can only take her on Fridays. Later, she said she would call her trailer tank truck driver to see if she could bring her on Saturday and would let us know. /Reviewed HEP with pt & instructed to do 2x/day) Start: 05-29-2024 End: 05-29-2024 ambulatory Prerna Lemon PT [facility] Therapy Comment on above: Lymphedema of both l ower extremities (Primary Dx) Start: 05-22-2024 End: 05-22-2024 ambulatory Prerna Lemon PT [facility] Comment on above: Lymphedema of both l ower extremities (Primary Dx) Start: 05-08-2024 End: 05-08-2024 ambulatory Prerna Lemon PT [facility] Therapy Comment on above: Lymphedema of both l ower extremities (Primary Dx) Start: 04-24-2024 End: 04-24-2024 ambulatory Prerna Lemon PT [facility] Therapy Comment on above: Lymphedema of both l ower extremities (Primary Dx) Start: 04-17-2024 End: 04-17-2024 ambulatory Prerna Lemon PT [facility] Comment on above: Lymphedema of both l ower extremities (Primary Dx) Start: 04-03-2024 End: 04-03-2024 ambulatory Prerna Lemon PT [facility] Therapy Comment on above: Lymphedema of both l ower extremities (Primary Dx) Start: 03-27-2024 End: 03-27-2024 ambulatory Prerna Lemon PT [facility] Therapy Comment on above: Lymphedema of both l ower extremities (Primary Dx) Start: 03-13-2024 End: 03-13-2024 ambulatory Prerna Lemon PT [facility] Comment on above: Lymphedema of both l ower extremities (Primary Dx) Start: 03-04-2024 End: 03-04-2024 ambulatory Prerna Lemon PT [facility] Therapy Comment on above: Lymphedema of both l ower extremities (Primary Dx) Start: 02-14-2024 End: 02-14-2024 ambulatory Prerna Lemon PT [facility] Comment on above: Lymphedema of both l ower extremities (Primary Dx) Start: 02-07-2024 End: 02-07-2024 ambulatory Prerna Lemon PT [facility] Therapy Comment on above: Lymphedema of both l ower extremities (Primary Dx) Start: 01-24-2024 End: 01-24-2024 ambulatory Prerna Lemon PT [facility] Therapy Comment on above: Lymphedema of both l ower extremities (Primary Dx) Start: 01-17-2024 End: 01-17-2024 ambulatory Prerna Lemon PT [facility] Comment on above: Lymphedema of both l ower extremities (Primary Dx) Start: 01-03-2024 End: 01-03-2024 Patient encounter procedure Radha Wood Work Phone: Podiatry Comment on above: Onychomycosis (Prima ry Dx); Pain in toe of left foot; Pain in toe of right foot Start: 12-27-2023 End: 12-27-2023 ambulatory Prerna Lemon PT [facility] Therapy Comment on above: Lymphedema of both l ower extremities (Primary Dx) Start: 12-17-2023 End: 12-17-[address] Tyler Benitez Work Phone: [facility] Work Phone: Start: 12-17-2023 End: 12-17-[address] Tyler Benitez Work Phone: [facility] Work Phone: Start: 12-13-2023 End: 12-13-2023 ambulatory Prerna Lemon PT [facility] Therapy Comment on above: Lymphedema of both l ower extremities (Primary Dx) Start: 11-29-2023 End: 11-29-2023 ambulatory Prerna Lemon PT [facility] Comment on above: Lymphedema of both l ower extremities (Primary Dx) Start: 11-15-2023 End: 11-15-2023 ambulatory Prerna Lemon PT [facility] Therapy Comment on above: Lymphedema of both l ower extremities (Primary Dx) Start: 10-28-2023 End: 10-28-2023 ambulatory Prerna Lemon PT [facility] Therapy Comment on above: Lymphedema of both l ower extremities (Primary Dx) Start: 10-14-2023 End: 10-14-2023 ambulatory Prerna Lemon PT [facility] Therapy Comment on above: Lymphedema of both l ower extremities (Primary Dx) Start: 10-07-2023 End: 10-07-2023 ambulatory Prerna Lemon PT [facility] Comment on above: Lymphedema of both l ower extremities (Primary Dx) Start: 10-04-2023 End: 10-04-2023 ambulatory Prerna Lemon PT [facility] Therapy Comment on above: Lymphedema of both l ower extremities (Primary Dx) Start: 08-29-2023 End: 08-29-[address] Tyler Benitez Work Phone: [facility] Work Phone: Start: 08-07-2023 End: 08-07-2023 ambulatory Prerna Lemon PT [facility] Therapy Comment on above: Lymphedema of both l ower extremities (Primary Dx) Start: 08-02-2023 End: 08-02-2023 ambulatory Prerna Lemon PT [facility] Comment on above: Lymphedema of both l ower extremities (Primary Dx) Start: 2023 Telephone encounter Radha Armstrong Work Phone: Podiatry Comment on above: Results Start: 07-17-2023 End: 07-17-2023 Subsequent hospital visit by physician Xr On License Of [facility] Work Phone: Radiology Comment on above: [...] 07-01-[address] Tyler Benitez Work Phone: [facility] Work Phone: Start: 07-01-2023 End: 07-01-[address] Tyler Benitez Work Phone: [facility] Work Phone: Start: 06-28-2023 End: 06-28-2023 ambulatory Prerna Lemon PT [facility] Therapy Comment on above: Lymphedema of both l ower extremities (Primary Dx) Start: 06-21-2023 End: 06-21-2023 ambulatory Prerna Lemon PT [facility] Comment on above: Lymphedema of both l ower extremities (Primary Dx) Start: 06-18-2023 End: 06-18-[address] Tyler Benitez Work Phone: [facility] Work Phone: Start: 06-18-2023 End: 06-18-[address] Tyler Benitez Work Phone: [facility] Start: 06-17-2023 Telephone encounter Prerna Lemon PT [facility] Therapy Comment on above: Appointment Start: 06-10-2023 End: 06-10-2023 ambulatory Prerna Lemon PT [facility] Therapy Comment on above: Lymphedema of both l ower extremities (Primary Dx) Start: 06-10-2023 End: 06-10-[address] Tyler Benitez Work Phone: [facility] Work Phone: Start: 06-10-2023 End: 06-10-[address] Tyler Benitez Work Phone: [facility] Work Phone: Start: 06-03-2023 End: 06-03-[address] Tyler Benitez Work Phone: [facility] Work Phone: Start: 06-03-2023 End: 06-03-[address] Tyler Benitez Work Phone: [facility]-Laboratory, Specimen Work Phone: Start: 05-31-2023 End: 05-31-2023 ambulatory Prerna Lemon PT [facility] Therapy Comment on above: Lymphedema of both l ower extremities (Primary Dx) Start: 05-24-2023 End: 05-24-2023 ambulatory Prerna Lemon PT [facility] Therapy Comment on above: Unsteady gait when w alking; Lymphedema of both lower extremities Start: 05-24-2023 End: 05-24-2023 Emergency department patient visit Dr. Tyler Benitez Work Phone: [facility]-Emergency Department Work Phone: Start: 05-17-2023 End: 05-17-2023 ambulatory Prerna Lemon PT [facility] Therapy Comment on above: Lymphedema of both l ower extremities (Primary Dx) Start: 05-10-2023 End: 05-10-2023 ambulatory Prerna Lemon PT [facility] Therapy Comment on above: Lymphedema of both l ower extremities (Primary Dx) Start: 05-03-2023 End: 05-03-2023 ambulatory Prerna Lemon PT [facility] Therapy Comment on above: Lymphedema of both l ower extremities (Primary Dx) Start: 04-24-2023 End: 04-24-2023 ambulatory Prerna Lemon PT [facility] Therapy Comment on above: Lymphedema of both l ower extremities (Primary Dx) Start: 04-19-2023 Non-patient / Non-visit Dr. Silvio Benitez Work Phone: [facility] Work Phone: Start: 04-18-2023 Non-patient / Non-visit Dr. Silvio Benitez Work Phone: [facility] Work Phone: Start: 04-17-2023 Non-patient / Non-visit Dr. Silvio Benitez Work Phone: [facility] Work Phone: Start: 04-16-2023 Non-patient / Non-visit Dr. Silvio Benitez Work Phone: [facility] Start: 04-16-2023 Non-patient / Non-visit Dr. Silvio Benitez Work Phone: [facility] Work Phone: Start: 04-15-2023 End: 04-19-2023 Evaluation and management of inpatient Dr. Tyler Benitez Work Phone: [facility]-Medical Surgical 3 Work Phone: Start: 04-15-2023 End: 04-19-[address] Tyler Benitez Work Phone: [facility] Work Phone: Start: 04-12-2023 End: 04-12-2023 ambulatory Prerna Lemon PT [facility] Therapy Comment on above: Lymphedema of both l ower extremities (Primary Dx) Start: 04-05-2023 End: 04-05-2023 Emergency department patient visit Dr. Tyler Benitez Work Phone: [facility]-Emergency Department Work Phone: Start: 04-04-2023 End: 04-05-2023 Emergency department patient visit Dr. Tyler Benitez Work Phone: [facility]-Emergency Department Work Phone: Start: 03-29-2023 End: 04-01-2023 Evaluation and management of inpatient TYLER BENITEZ Facility:[facility] Start: 03-29-2023 Telephone encounter Prerna Lemon PT [facility] Therapy Comment on above: Appointment Start: 03-22-2023 End: 03-22-2023 ambulatory Prerna Lemon PT [facility] Therapy Comment on above: Lymphedema of both l ower extremities (Primary Dx) Start: 03-21-2023 Telephone encounter Prerna Lemon PT [facility] Therapy Comment on above: Patient Update Start: 03-20-2023 Telephone encounter Judith Walton elicia IRWIN Work Phone: Plastic Surgery Comment on above: Appointment Start: 03-19-2023 Non-patient / Non-visit Dr. Silvio Benitez Work Phone: [facility] Work Phone: Start: 03-18-2023 Non-patient / Non-visit Dr. Silvio Benitez Work Phone: [facility] Start: 03-18-2023 Non-patient / Non-visit Dr. Silvio Benitez Work Phone: [facility] Work Phone: Start: 03-17-2023 Non-patient / Non-visit Dr. Silvio Benitez Work Phone: [facility] Work Phone: Start: 03-17-2023 End: 03-19-2023 Evaluation and management of inpatient Dr. Tyler Benitez Work Phone: [facility]-Medical Surgical 3 Work Phone: Start: 03-12-2023 End: 03-12-[address] Tyler Benitez Work Phone: [facility] Work Phone: Start: 03-08-2023 End: 03-08-2023 ambulatory Prerna Lemon PT [facility] Therapy Comment on above: Lymphedema of both l ower extremities (Primary Dx) Start: 03-01-2023 End: 03-01-2023 ambulatory Prerna Lemon PT [facility] Therapy Comment on above: Lymphedema of both l ower extremities (Primary Dx) Start: 02-27-2023 End: 02-27-2023 ambulatory Prerna Lemon PT [facility] Therapy Comment on above: Lymphedema of both l ower extremities (Primary Dx) Start: 02-26-2023 End: 02-26-2023 Emergency department patient visit Dr. Tyler Benitez Work Phone: [facility]-Emergency Department Work Phone: Start: 02-22-2023 End: 02-22-2023 ambulatory Prerna Lemon PT [facility] Therapy Comment on above: Lymphedema of both l ower extremities (Primary Dx) Start: 02-20-2023 End: 02-20-2023 ambulatory Prerna Lemon PT [facility] Therapy Comment on above: Lymphedema of both l ower extremities (Primary Dx) Start: 02-08-2023 End: 02-08-2023 ambulatory Prerna Lemon PT [facility] Therapy Comment on above: Lymphedema of both l ower extremities (Primary Dx) Start: 01-25-2023 End: 01-25-2023 ambulatory Prerna Lemon PT [facility] Therapy Comment on above: Lymphedema of both l ower extremities (Primary Dx) Start: 01-15-2023 End: 01-15-2023 Emergency department patient visit Dr. Tyler Benitez Work Phone: [facility]-Emergency Department Work Phone: Start: 01-04-2023 End: 01-04-2023 ambulatory Prerna Lemon PT [facility] Therapy Comment on above: Lymphedema of both l ower extremities (Primary Dx) Start: 01-03-2023 Telephone encounter Judith Walton ins PA-C Work Phone: [facility] Comment on above: Appointment Start: 01-02-2023 Telephone encounter Judith Walton ins PA-C Work Phone: Plastic Surgery Comment on above: Appointment Start: 12-31-2022 Telephone encounter Jesse Grayson Work Phone: Plastic Surgery Comment on above: Patient Question (Mi ssed call) Appointment Start: 12-21-2022 End: 12-21-[address] Tyler Benitez Work Phone: [facility] Work Phone: Start: 12-21-2022 End: 12-21-[address] Tyler Benitez Work Phone: [facility] Start: 12-21-2022 End: 12-21-2022 ambulatory Prerna Lemon PT [facility] Therapy Comment on above: Lymphedema of both l ower extremities (Primary Dx) Start: 12-14-2022 End: 12-14-2022 ambulatory Prerna Lemon PT [facility] Therapy Comment on above: Lymphedema of both l ower extremities (Primary Dx) Start: 12-07-2022 End: 12-07-2022 ambulatory Prerna Lemon PT [facility] Therapy Comment on above: Lymphedema of both l ower extremities (Primary Dx) Start: 12-06-2022 ambulatory Mohini vasquez LPN [facility] Start: 12-06-2022 Patient encounter procedure Mohini Davila LPN [employer] Comment on above: Referral Information Start: 11-27-2022 End: 11-27-[address] Tyler Benitez Work Phone: [facility] Start: 11-23-2022 End: 11-23-2022 ambulatory Prerna Lemon PT [facility] Therapy Comment on above: Lymphedema of both l ower extremities (Primary Dx) Start: 11-20-2022 End: 11-20-2022 ambulatory [facility] Work Phone: Start: 11-20-2022 End: 11-20-2022 Patient encounter procedure [facility] Start: 11-09-2022 End: 11-09-2022 ambulatory Prerna Lemon PT [facility] Therapy Comment on above: Lymphedema of both l ower extremities (Primary Dx) Start: 11-02-2022 End: 11-02-2022 ambulatory Prerna Lemon PT [facility] Therapy Comment on above: Lymphedema of both l ower extremities (Primary Dx) Start: 10-22-2022 End: 10-22-2022 ambulatory Prerna Lemon PT [facility] Therapy Comment on above: Lymphedema of both l ower extremities (Primary Dx) Start: 10-12-2022 End: 10-12-2022 ambulatory Prerna Lemon PT [facility] Therapy Comment on above: Lymphedema of both l ower extremities (Primary Dx) Start: 10-05-2022 End: 10-05-2022 ambulatory Prerna Lemon PT [facility] Physical Therapy Comment on above: Lymphedema of both l ower extremities (Primary Dx) Start: 09-12-2022 Telephone encounter Radha Boogie haines Work Phone: Podiatry Comment on above: Results Start: 09-11-2022 End: 09-11-2022 Subsequent hospital visit by physician [facility] Ernesto Rell Work Phone: Radiology Comment on above: Plantar fasciitis [M 72.2] Start: 09-11-2022 End: 09-11-2022 Patient encounter procedure Radha Wood Work Phone: Podiatry Comment on above: Onychomycosis (Prima ry Dx); Pain in toe of left foot; Pain in toe of right foot; Plantar fasciitis Start: 09-10-2022 End: 09-10-2022 ambulatory Prerna Lemon PT [facility] Comment on above: Lymphedema of both l ower extremities (Primary Dx) Start: 08-10-2022 End: 08-10-2022 ambulatory Prerna Lemon PT [facility] Comment on above: Lymphedema of both l ower extremities (Primary Dx) Start: 08-03-2022 End: 08-03-2022 ambulatory Prerna Lemon PT [facility] Comment on above: Lymphedema of both l ower extremities (Primary Dx) Start: 07-27-2022 End: 07-27-2022 ambulatory Prerna Lemon PT [facility] Comment on above: Lymphedema of both l ower extremities (Primary Dx) Start: 07-13-2022 End: 07-13-2022 ambulatory Prerna Lemon PT [facility] Comment on above: Lymphedema of both l ower extremities (Primary Dx) Start: 07-09-2022 End: 07-09-[address] Tyler Benitez Work Phone: [facility] Work Phone: Start: 07-09-2022 End: 07-09-[address] Tyler Benitez Work Phone: [facility] Start: 07-06-2022 End: 07-06-2022 ambulatory Prerna Lemon PT [facility] Comment on above: Lymphedema of both l ower extremities (Primary Dx) Start: 06-26-[address] Tyler Benitez Work Phone: [facility] Start: 06-15-2022 End: 06-15-2022 ambulatory Prerna Lemon PT [facility] Comment on above: Lymphedema of both l ower extremities (Primary Dx) Start: 06-08-2022 End: 06-08-2022 ambulatory Prerna Lemon PT [facility] Comment on above: Lymphedema of both l ower extremities (Primary Dx) Start: 06-08-2022 End: 06-08-[address] Tyler Benitez Work Phone: [facility] Work Phone: Start: 06-08-2022 End: 06-08-[address] Tyler Benitez Work Phone: [facility] Start: 06-01-2022 End: 06-01-2022 ambulatory Prerna Lemon PT [facility] Comment on above: Lymphedema of both l ower extremities (Primary Dx) Start: 05-25-2022 End: 05-25-2022 ambulatory Prerna Lemon PT [facility] Comment on above: Lymphedema of both l ower extremities (Primary Dx) Start: 05-20-2022 End: 05-20-2022 Emergency department patient visit Dr. Tyler Benitze Work Phone: [facility]gency Department Start: 05-18-2022 End: 05-18-2022 ambulatory Prerna Lemon PT [facility] Comment on above: Lymphedema of both l ower extremities (Primary Dx) Start: 05-18-2022 End: 05-18-[address] Tyler Benitez Work Phone: [facility] Start: 05-16-2022 End: 05-16-[address] Tyler Benitez Work Phone: [facility] Start: 05-11-2022 End: 05-11-2022 ambulatory Prerna Lemon PT [facility] Comment on above: Lymphedema of both l ower extremities (Primary Dx) Start: 05-11-2022 End: 05-11-[address] Tyler Benitez Work Phone: [facility] Start: 05-08-2022 End: 05-08-2022 Emergency department patient visit Dr. Tyler Benitez Work Phone: [facility] Department Start: 05-04-2022 End: 05-04-2022 ambulatory Prerna Lemon PT [facility] Comment on above: Lymphedema of both l ower extremities (Primary Dx) Start: 05-04-2022 End: 05-04-[address] Tyler Benitez Work Phone: [facility] Start: 04-27-2022 End: 04-27-2022 ambulatory Prerna Lemon PT [facility] Comment on above: Lymphedema of both l ower extremities (Primary Dx) Start: 04-20-2022 End: 04-20-2022 ambulatory Prerna Lemon PT [facility] Comment on above: Lymphedema of both l ower extremities (Primary Dx) Start: 04-16-2022 End: 04-16-[address] Tyler Benitez Work Phone: [facility] Start: 04-13-2022 End: 04-13-2022 ambulatory Prerna Lemon PT [facility] Comment on above: Lymphedema of both l ower extremities (Primary Dx) Start: 04-06-2022 End: 04-06-2022 ambulatory Prerna Lemon PT [facility] Comment on above: Lymphedema of both l ower extremities (Primary Dx) Start: 03-30-2022 End: 03-30-2022 ambulatory Prerna Lemon PT [facility] Comment on above: Lymphedema of both l ower extremities (Primary Dx) Start: 03-23-2022 End: 03-23-2022 ambulatory Prerna Lemon PT [facility] Comment on above: Lymphedema of both l ower extremities (Primary Dx) Start: 03-19-2022 End: 03-19-2022 ambulatory Prerna Lemon PT [facility] Comment on above: Lymphedema of both l ower extremities (Primary Dx) Start: 03-19-2022 End: 03-19-[address] Tyler Benitez Work Phone: [facility] Start: 03-07-2022 End: 03-07-2022 ambulatory Prerna Lemon PT [facility] Comment on above: Lymphedema of both l ower extremities (Primary Dx) Start: 02-28-2022 End: 02-28-[address] Tyler Benitez Work Phone: [facility] Start: 02-23-2022 End: 02-23-2022 ambulatory Prerna Lemon PT [facility] Comment on above: Lymphedema of both l ower extremities (Primary Dx) Start: 02-16-2022 End: 02-16-2022 ambulatory Prerna Lemon PT [facility] Comment on above: Lymphedema of both l ower extremities (Primary Dx) Start: 02-02-2022 End: 02-02-2022 ambulatory Prerna Lemon PT [facility] Comment on above: Lymphedema of both l ower extremities (Primary Dx) Start: 01-18-2022 End: 01-18-2022 Emergency department patient visit Dr. Tyler Benitez Work Phone: [facility] Start: 01-16-2022 End: 01-16-2022 Emergency department patient visit Dr. Tyler Benitez Work Phone: [facility] Start: 01-05-2022 End: 01-05-2022 ambulatory Prerna Lemon PT Work Phone: [facility] Comment on above: Lymphedema of both l ower extremities (Primary Dx) Start: 12-29-2021 End: 12-29-2021 ambulatory Prerna Lemon PT Work Phone: [facility] Comment on above: Lymphedema of both l ower extremities (Primary Dx) Start: 12-25-2021 End: 12-25-[address] Tyler Benitez Work Phone: [facility] Start: 12-22-2021 End: 12-22-2021 ambulatory Prerna Lemon PT Work Phone: [facility] Comment on above: Lymphedema of both l ower extremities (Primary Dx) Start: 12-06-2021 End: 12-06-2021 Patient encounter procedure Radha Wood Work Phone: Podiatry Comment on above: Onychomycosis (Prima ry Dx); Pain in toe of left foot; Pain in toe of right foot; Hyperkeratosis Start: 12-04-2021 End: 12-04-2021 ambulatory Prerna Lemon PT Work Phone: [facility] Comment on above: Lymphedema of both l ower extremities (Primary Dx) Start: 11-24-2021 End: 11-24-[address] Tyler Benitez Work Phone: [facility] Start: 11-24-2021 End: 11-24-[address] Tyler Benitez Work Phone: [facility] Start: 11-08-2021 End: 11-08-[address] Tyler Benitez Work Phone: [facility] Start: 10-24-2021 Non-patient / Non-visit Dr. Silvio Benitez Work Phone: [facility] Start: 10-23-2021 Non-patient / Non-visit Dr. Silvio Benitez Work Phone: [facility] Start: 10-23-2021 Non-patient / Non-visit Dr. Silvio Benitez Work Phone: [facility] Start: 10-23-2021 Non-patient / Non-visit Dr. Silvio Benitez Work Phone: [facility] Start: 10-23-2021 Non-patient / Non-visit Dr. Silvio Benitez Work Phone: [facility] Start: 10-23-2021 Non-patient / Non-visit Dr. Silvio Benitez Work Phone: [facility] Start: 10-22-2021 Non-patient / Non-visit Dr. Silvio Benitez Work Phone: [facility] Start: 10-22-2021 End: 10-24-2021 Evaluation and management of inpatient Dr. Tyler Benitez Work Phone: [facility] Start: 01-17-2018 Patient encounter procedure MIKE HEAD Facility:[facility] Start: 01-08-2018 Patient encounter procedure MIKE HEAD Facility:[facility] Start: 09-17-2017 Patient encounter procedure NATA COTO Facility:[facility] Start: 08-22-2017 Patient encounter procedure GEO REILLY Facility:[facility] Start: 08-05-2017 Patient encounter procedure ODALIS GUALLPA Facility:[facility] Start: 07-02-2017 End: 07-02-2017 Ambulatory UNKNOWN PROVIDER Facility:[facility] Procedures Date Procedure Procedure Detail Performing [...] Detail Author Start: 07-02-2027 Urine microalbumin profile [facility] Start: 04-01-2026 DIABETES SCREEN DIABETES SCREEN [facility] Start: 04-01-2026 Diabetes Screening Diabetes Screenin g [facility] Start: 03-29-2026 DIABETES SCREEN DIABETES SCREEN [facility] Start: 06-18-2025 End: 06-18-2025 Patient encounter procedure 06/18/2025 2:40 PM EDT Office Visit Podiatry [address] [place] [address] Radha Wood [address] [place], [place] [id number] 3 month follow up Podiatry Comment on above: 3 month follow up Start: 05-27-2025 End: 05-27-2025 ambulatory 05/27/2025 11:30 AM EDT OT/PT/Speech Visit [facility] [address] [place] [address] Morris Lo, PT [address] [place] [address] Pes planus of both feet [M21.41, M21.42] [facility] Comment on above: Pes planus of both f eet [M21.41, M21.42] Start: 04-26-2025 Influenza vaccination [facility] Start: 03-17-2025 End: 03-17-2025 ambulatory [facility] Comment on above: I89.0 (ICD-10-CM) - Lymphedema of both lower extremities 15 visits thru 06/17 Start: 03-11-2025 End: 03-11-2025 Patient encounter procedure 03/11/2025 2:00 PM EDT Office Visit Podiatry [address] [place] [address] Radha Wood [address] [place] [address] follow up nail care Podiatry Comment on above: follow up nail care Start: 03-02-2025 End: 03-02-2025 [facility] Start: 12-18-2024 End: 12-18-2024 ambulatory 12/18/2024 2:45 PM EDT OT/PT/Speech Visit [facility] [address] [place], [place] [id number] Prerna Bonds PT I89.0 (ICD-10-CM) - Lymphedema of both lower extremities [facility] Comment on above: I89.0 (ICD-10-CM) - Lymphedema of both lower extremities Start: 12-11-2024 End: 12-11-2024 ambulatory 12/11/2024 2:45 PM EDT OT/PT/Speech Visit [facility] [address] [place] [address] Lemon, Prerna, PT I89.0 (ICD-10-CM) - Lymphedema of both lower extremities [facility] Comment on above: I89.0 (ICD-10-CM) - Lymphedema of both lower extremities Start: 12-04-2024 End: 12-04-2024 ambulatory 12/04/2024 2:45 PM EDT OT/PT/Speech Visit [facility] [address] [place] [address] Lemon, Prerna, PT I89.0 (ICD-10-CM) - Lymphedema of both lower extremities [facility] Comment on above: I89.0 (ICD-10-CM) - Lymphedema of both lower extremities Start: 11-27-2024 End: 11-27-2024 ambulatory 11/27/2024 2:45 PM EDT OT/PT/Speech Visit [facility] [address] [place] [address] Lemon, Prerna, PT I89.0 (ICD-10-CM) - Lymphedema of both lower extremities [facility] Comment on above: I89.0 (ICD-10-CM) - Lymphedema of both lower extremities Start: 11-24-2024 End: 11-24-2024 Patient encounter procedure Podiatry Comment on above: follow up nail care Start: 11-20-2024 End: 11-20-2024 ambulatory 11/20/2024 2:45 PM EDT OT/PT/Speech Visit [facility] [address] [place] [address] Lemon, Prerna, PT Lymphedema [facility] Comment on above: Lymphedema Start: 11-13-2024 End: 11-13-2024 ambulatory 11/13/2024 2:45 PM EDT OT/PT/Speech Visit [facility] [address] [place] [address] Lemon, Prerna, PT Lymphedema [facility] Comment on above: Lymphedema Start: 11-10-2024 [facility] Start: 11-10-2024 [facility] Start: 11-10-2024 Bacteria identified in Blood by Culture Blood Culture [facility] Start: 09-25-2024 End: 09-25-2024 ambulatory 09/25/2024 2:45 PM EST OT/PT/Speech Visit [facility] [address] [place] [address] Lemon, Prerna, PT 89.0 (ICD-10-CM) - Lymphedema, not elsewhere classified [facility] Comment on above: 89.0 (ICD-10-CM) - L ymphedema, not elsewhere classified Start: 09-18-2024 End: 09-18-2024 ambulatory 09/18/2024 2:45 PM EST OT/PT/Speech Visit [facility] [address] [place] [address] Lemon, Prerna, PT 89.0 (ICD-10-CM) - Lymphedema, not elsewhere classified [facility] Comment on above: 89.0 (ICD-10-CM) - L ymphedema, not elsewhere classified Start: 09-11-2024 End: 09-11-2024 ambulatory 09/11/2024 2:45 PM EST OT/PT/Speech Visit [facility] [address] [place] [address] Lemon, Prerna, PT 89.0 (ICD-10-CM) - Lymphedema, not elsewhere classified [facility] Comment on above: 89.0 (ICD-10-CM) - L ymphedema, not elsewhere classified Start: 09-04-2024 End: 09-04-2024 ambulatory 09/04/2024 2:45 PM EST OT/PT/Speech Visit [facility] [address] [place] [address] Lemon, Prerna, PT 89.0 (ICD-10-CM) - Lymphedema, not elsewhere classified [facility] Comment on above: 89.0 (ICD-10-CM) - L ymphedema, not elsewhere classified Start: 09-04-2024 End: 09-04-2024 Documentation procedure 09/04/2024 Plan of Care Documentation [facility] [address] [place] [address] [facility] Start: 08-28-2024 Patient referral [facility] Work Phone: Start: 08-26-2024 Advance Directive Discussion Advance Directive Discussion [facility] Start: 08-26-2024 Medicare Advantage A nnual Wellness Visit Medicare Advantage Annual Wellness Visit [facility] Start: 08-24-2024 End: 08-24-2024 ambulatory 08/24/2024 4:00 PM EST OT/PT/Speech Visit [facility] [address] [place] [address] Lemon, Prerna, PT 89.0 (ICD-10-CM) - Lymphedema, not elsewhere classified [facility] Comment on above: 89.0 (ICD-10-CM) - L ymphedema, not elsewhere classified Start: 08-14-2024 End: 08-14-2024 ambulatory 08/14/2024 1:00 PM EST OT/PT/Speech Visit [facility] [address] [place] [address] Lemon, Prerna, PT 89.0 (ICD-10-CM) - Lymphedema, not elsewhere classified [facility] Comment on above: 89.0 (ICD-10-CM) - L ymphedema, not elsewhere classified Start: 08-03-2024 End: 08-03-2024 Patient encounter procedure Podiatry Comment on above: follow up callus Start: 07-17-2024 End: 07-17-2024 ambulatory 07/17/2024 2:45 PM EST OT/PT/Speech Visit [facility] [address] [place] [address] Lemon, Prerna, PT 89.0 (ICD-10-CM) - Lymphedema, not elsewhere classified [facility] Comment on above: 89.0 (ICD-10-CM) - L ymphedema, not elsewhere classified Start: 06-24-2024 End: 06-24-2024 ambulatory [facility] Comment on above: I89.0 (ICD-10-CM) - Lymphedema, not elsewhere classified Start: 06-19-2024 End: 06-19-2024 ambulatory 06/19/2024 2:45 PM EDT OT/PT/Speech Visit [facility] [address] [place] [address] Lemon, Prerna, PT I89.0 (ICD-10-CM) - Lymphedema, not elsewhere classified [facility] Comment on above: I89.0 (ICD-10-CM) - Lymphedema, not elsewhere classified Start: 05-29-2024 End: 05-29-2024 ambulatory 05/29/2024 2:45 PM EDT OT/PT/Speech Visit [facility] [address] [place] [address] Lemon, Prerna, PT I89.0 (ICD-10-CM) - Lymphedema, not elsewhere classified [facility] Comment on above: I89.0 (ICD-10-CM) - Lymphedema, not elsewhere classified Start: 05-22-2024 End: 05-22-2024 ambulatory 05/22/2024 2:45 PM EDT OT/PT/Speech Visit [facility] [address] [place] [address] Lemon, Prerna, PT I89.0 (ICD-10-CM) - Lymphedema, not elsewhere classified [facility] Comment on above: I89.0 (ICD-10-CM) - Lymphedema, not elsewhere classified Start: 05-15-2024 End: 05-15-2024 ambulatory 05/15/2024 2:45 PM EDT OT/PT/Speech Visit [facility] [address] [place] [address] Lemon, Prerna, PT I89.0 (ICD-10-CM) - Lymphedema, not elsewhere classified [facility] Comment on above: I89.0 (ICD-10-CM) - Lymphedema, not elsewhere classified Start: 05-13-2024 End: 05-13-2024 ambulatory 05/13/2024 3:30 PM EDT OT/PT/Speech Visit [facility] [address] [place] [address] Lemon, Prerna, PT I89.0 (ICD-10-CM) - Lymphedema, not elsewhere classified [facility] Comment on above: I89.0 (ICD-10-CM) - Lymphedema, not elsewhere classified Start: 05-08-2024 End: 05-08-2024 ambulatory 05/08/2024 2:45 PM EDT OT/PT/Speech Visit [facility] [address] [place] [address] Lemon, Prerna, PT I89.0 (ICD-10-CM) - Lymphedema, not elsewhere classified [facility] Comment on above: I89.0 (ICD-10-CM) - Lymphedema, not elsewhere classified Start: 05-01-2024 End: 05-01-2024 ambulatory 05/01/2024 1:45 PM EDT OT/PT/Speech Visit [facility] [address] [place] [address] Lemon, Prerna, PT I89.0 (ICD-10-CM) - Lymphedema, not elsewhere classified [facility] Comment on above: I89.0 (ICD-10-CM) - Lymphedema, not elsewhere classified Start: 04-26-2024 Covid-19 Vaccine () Covid-19 Vaccine () [facility] Start: 04-26-2024 Covid-19 Vaccine (4 - 2024-25 season) Covid-19 Vaccine ( season) [facility] Start: 04-26-[address] [facility] Start: 04-24-2024 End: 04-24-2024 ambulatory 04/24/2024 2:45 PM EDT OT/PT/Speech Visit [facility] [address] [place] [address] Lemon, Prerna, PT I89.0 (ICD-10-CM) - Lymphedema, not elsewhere classified [facility] Comment on above: I89.0 (ICD-10-CM) - Lymphedema, not elsewhere classified Start: 04-17-2024 End: 04-17-2024 ambulatory 04/17/2024 1:00 PM EDT OT/PT/Speech Visit [facility] [address] [place] [address] Lemon, Prerna, PT I89.0 (ICD-10-CM) - Lymphedema, not elsewhere classified [facility] Comment on above: I89.0 (ICD-10-CM) - Lymphedema, not elsewhere classified Start: 04-10-2024 End: 04-10-2024 Patient encounter procedure 04/10/2024 3:20 PM EDT Office Visit Podiatry [address] [place] [address] Radha Wood [address] [place] [address] month follow up nail care Podiatry Comment on above: month follow up nail care Start: 04-10-2024 End: 04-10-2024 ambulatory 04/10/2024 1:00 PM EDT OT/PT/Speech Visit [facility] [address] [place] [address] Lemon, Prerna, PT I89.0 (ICD-10-CM) - Lymphedema, not elsewhere classified [facility] Comment on above: I89.0 (ICD-10-CM) - Lymphedema, not elsewhere classified Start: 04-03-2024 End: 04-03-2024 ambulatory 04/03/2024 1:00 PM EDT OT/PT/Speech Visit [facility] [address] [place] [address] Lemon, Prerna, PT I89.0 (ICD-10-CM) - Lymphedema, not elsewhere classified [facility] Comment on above: I89.0 (ICD-10-CM) - Lymphedema, not elsewhere classified Start: 03-27-2024 End: 03-27-2024 ambulatory 03/27/2024 2:45 PM EDT OT/PT/Speech Visit [facility] [address] [place] [address] Lemon, Prerna, PT I89.0 - Lymphedema [facility] Comment on above: I89.0 - Lymphedema Start: 03-13-2024 End: 03-13-2024 ambulatory 03/13/2024 2:45 PM EDT OT/PT/Speech Visit [facility] [address] [place] [address] Lemon, Prerna, PT I89.0 (ICD-10-CM) - Lymphedema, not elsewhere classified [facility] Comment on above: I89.0 (ICD-10-CM) - Lymphedema, not elsewhere classified Start: 03-06-2024 End: 03-06-2024 ambulatory 03/06/2024 2:45 PM EDT OT/PT/Speech Visit [facility] [address] [place] [address] Lemon, Prerna, PT I89.0 (ICD-10-CM) - Lymphedema, not elsewhere classified [facility] Comment on above: I89.0 (ICD-10-CM) - Lymphedema, not elsewhere classified Start: 03-04-2024 End: 03-04-2024 ambulatory 03/04/2024 2:00 PM EDT OT/PT/Speech Visit [facility] [address] [place] [address] Lemon, Prerna, PT I89.0 (ICD-10-CM) - Lymphedema, not elsewhere classified [facility] Comment on above: I89.0 (ICD-10-CM) - Lymphedema, not elsewhere classified Start: 02-14-2024 Documentation procedure 2023 Plan of Care Documentation [facility] [address] [place] [address] [facility] Start: 02-14-2024 End: 02-14-2024 ambulatory 02/14/2024 1:45 PM EDT OT/PT/Speech Visit [facility] [address] [place] [address] Lemon, Prerna, PT I89.0 (ICD-10-CM) - Lymphedema, not elsewhere classified [facility] Comment on above: I89.0 (ICD-10-CM) - Lymphedema, not elsewhere classified Start: 02-07-2024 End: 02-07-2024 ambulatory 02/07/2024 1:00 PM EDT OT/PT/Speech Visit [facility] [address] [place] [address] Lemon, Prerna, PT I89.0 (ICD-10-CM) - Lymphedema of both lower extremities [facility] Comment on above: I89.0 (ICD-10-CM) - Lymphedema of both lower extremities Start: 01-24-2024 End: 01-24-2024 ambulatory 01/24/2024 11:00 AM EDT OT/PT/Speech Visit [facility] [address] [place] [address] Lemon, Prerna, PT I89.0 (ICD-10-CM) - Lymphedema, not elsewhere classified [facility] Comment on above: I89.0 (ICD-10-CM) - Lymphedema, not elsewhere classified Start: 01-17-2024 End: 01-17-2024 ambulatory 01/17/2024 1:45 PM EDT OT/PT/Speech Visit [facility] [address] [place] [place] [address] Prerna Bonds, PT I89.0 (ICD-10-CM) - Lymphedema, not elsewhere classified [facility] Physical Therapy Comment on above: I89.0 (ICD-10-CM) - Lymphedema, not elsewhere classified Start: 01-03-2024 End: 01-03-2024 Patient encounter procedure 01/03/2024 3:40 PM EDT Office Visit Podiatry [address] [place], [place] [id number] Radha Wood [address] [place] [address] nail care Podiatry Comment on above: nail care Start: 08-26-2023 Advance Directive Discussion Advance Directive Discussion [facility] Start: 08-26-2023 Behavioral Health Screening Behavioral Health Screening [facility] Start: 08-26-2023 Depression Assessment Depression Ass essment [facility] Start: 05-24-2023 Emergency department visit limited/minor prob EMR DPT VST MAYX REQ PHY/QHP [facility] Start: 04-26-2023 Covid-19 Vaccine ( season) Covid-19 Vaccine ( season) [facility] Start: 04-26-2023 Covid-19 Vaccine ( season) Covid-19 Vaccine ( season) [facility] Start: 04-26-2023 Influenza vaccination C [facility] Start: 04-19-2023 Patient discharge [facility] Start: 04-15-2023 Following clinical pathway protocol [facility] Start: 04-15-2023 Ambulation without limitation [facility] Start: 04-15-2023 Assessment of risk o f venous thromboembolism [facility] Start: 04-15-2023 Consultation for treatment [facility] Start: 04-15-2023 Incentive spirometry [facility] Start: 04-15-2023 Insertion of cathete r into peripheral vein [facility] Start: 04-15-2023 Measuring intake and output [facility] Start: 04-15-2023 Oxygen therapy [facility] Start: 04-15-2023 Providing care accor ding to standard [facility] Start: 04-15-2023 Referral to occupati onal therapist [facility] Start: 04-15-2023 Referral to service [facility] Start: 04-15-2023 [facility] Start: 04-15-2023 Admission procedure [facility] Start: 04-15-2023 Verification routine [facility] Start: 04-15-2023 Referral to service [facility] Start: 04-15-2023 [facility] Start: 04-04-2023 Referral to service [facility] Start: 03-25-2023 Referral to service [facility] Start: 03-19-2023 Patient discharge [facility] Start: 03-17-2023 Consultation for treatment [facility] Start: 03-17-2023 Following clinical pathway protocol [facility] Start: 03-17-2023 Assessment of risk o f venous thromboembolism [facility] Start: 03-17-2023 Insertion of cathete r into peripheral vein [facility] Start: 03-17-2023 Providing care accor roman to [facility] Start: 03-17-2023 Provision of activit y privileges [facility] Start: 03-17-2023 Referral to occupati onal therapist [facility] Start: 03-17-2023 Referral to service [facility] Start: 03-17-2023 [facility] Start: 03-17-2023 Admission procedure [facility] Start: 03-17-2023 Patient referral to dietitian [facility] Start: 03-12-2023 Patient referral [facility] Work Phone: Start: 02-26-2023 [facility] Start: 01-15-2023 [facility] Start: 10-03-2022 Screening for osteoporosis Bone Density Screening [facility] Start: 08-26-2022 ADVANCE DIRECTIVE DISCUSSION ADVANCE DIRECTIVE DISCUSSION [facility] Start: 08-26-2022 DEPRESSION ASSESSMENT DEPRESSION ASS ESSMENT [facility] Start: 05-11-2022 Patient referral [facility] Work Phone: Start: 05-08-2022 [facility] Work Phone: Start: 04-26-2022 Influenza vaccination C [facility] Start: 02-28-2022 Patient referral [facility] Work Phone: Start: 01-18-2022 [facility] Work Phone: Start: 01-16-2022 [facility] Work Phone: Start: 12-06-2021 COVID-19 VACCINE (4 - Booster for Moderna series) COVID-19 VACCINE (4 - Booster for Moderna series) [facility] Start: 10-02-2021 COVID-19 VACCINE (4 - Booster for Moderna series) COVID-19 VACCINE (4 - Booster for Moderna series) [facility] Start: 10-02-2021 COVID-19 VACCINE (4 - Moderna series) COVID-19 VACCINE (4 - Moderna series) [facility] Start: 08-26-2021 ADVANCE DIRECTIVE DISCUSSION ADVANCE DIRECTIVE DISCUSSION [facility] Start: 08-26-2021 DEPRESSION ASSESSMENT DEPRESSION ASS ESSMENT [facility] Start: 07-11-2020 DIABETES SCREEN DIABETES SCREEN [facility] Start: 02-03-2016 Hepatitis B surface antibody level LDL CHOLESTEROL [facility] Start: 2013 RSV Vaccine (1 - 1-d ose 75+ series) RSV Vaccine (1 - 1-dose 75+ series) [facility] Start: 2003 Pneumococcal Vaccine : 65+ (1 - PCV) Pneumococcal Vaccine: 65+ (1 - PCV) [facility] Start: 2003 PNEUMOCOCCAL: 65+ (1 - PCV) PNEUMOCOCCAL: 65+ (1 - PCV) [facility] Start: 2003 PNEUMOVAX AGE 65 AND OVER WITH 5YR LOOKBACK (#1) PNEUMOVAX AGE 65 AND OVER WITH 5YR LOOKBACK (#1) [facility] Start: 1998 RSV Vaccine (1 - 1-d ose 60+ series) RSV Vaccine (1 - 1-dose 60+ series) [facility] Start: 1988 SHINGRIX VACCINE (1 of 2) MIDDLETON GRIX VACCINE (1 of 2) [facility] Start: 1957 SHINGRIX VACCINE (1 of 2) MIDDLETON GRIX VACCINE (1 of 2) [facility] Start: 1957 Urine microalbumin profile [facility] Start: 1956 Anxiety Screening Anxiety Screening [facility] Start: 1956 Depression Screening Depression Scre ening [facility] Start: 1944 PNEUMOCOCCAL: 65+ (1 - PCV) PNEUMOCOCCAL: 65+ (1 - PCV) [facility] Bacteria identified in Wound by Culture ABSCESS AND WOUND CULTURE WITH GRAM STAIN Microbiology Routine Ingrowing toenail of left foot 07/05/2023 4:34 PM EST [facility] Work Phone: Patient Education [facility] Work Phone: Patient referral [facility] Work Phone: End: 10-11-2023 XR FOOT [...] EST [facility] Work Phone: [facility] Immunizations Immunization Date Immunization Notes Care Provider Fa [facility] 2022 influenza virus vaccine, unspecified formulation Prerna Lemon PT [facility] 12-02-2020 Covarminda (Moderna) Dr. Tyler Putnam Work Phone: [facility] 11-01-2020 Khalida (Moderna) Dr. Tyler Putnam Work Phone: [facility] 07-02-2017 tetanus toxoid, redu judy diphtheria toxoid, and acellular pertussis vaccine, adsorbed Dr. Tyler Benitez Work Phone: [facility] Payers Date Payer Category Payer Self-pay [id number] [phone] [id number] 2019 Medicare HUMANA MEDICARE HUMANA MEDICARE PPO [id number] 2019-Present [phone] [place] [address] PPO [id number] 2019 Medicare HUMANA MEDICARE HUMANA MEDICARE PPO [id number] 2019-Present [phone] [place] [address] PPO [id number] 2019 Medicare (Managed Care) HUMANA M EDICARE [id number] 2013 Private Health Insurance [id number] 1940 Unknown [id number] .2.278 1940 Unknown [id number] 2.16840.1.501402.3.579 .2.278 1940 Unknown [id number] 2.16840.1.830739.3.579 .2.278 1940 Unknown [id number] 2.16840.1.807493.3.579 .2.278 Unknown [id number] 2.16.840.1.714161.3.579 .2.462 Unknown [id number] 2.16.840.1.200889.3.579 .2.462 Unknown [id number] 2.16.840.1.969912.3.579 .2.462 Unknown [id number] 2.16.840.1.705333.3.579 .2.462 Unknown [id number] 2.16.840.1.888467.3.579 .2.462 Unknown [id number] 2.16.840.1.867986.3.579 .2.462 Unknown [id number] 2.16.840.1.954899.3.579 .2.462 Unknown [id number] 2.16.840.1.258828.3.579 .2.462 Unknown [id number] 2.16.840.1.176048.3.579 .2.462 Unknown [id number] 2.16.840.1.735022.3.579 .2.462 Unknown [id number] 2.16.840.1.148712.3.579 .2.462 Unknown [id number] 2.16.840.1.075797.3.579 .2.462 Unknown [id number] 2.16.840.1.512230.3.579 .2.462 Unknown [id number] 2.16.840.1.904473.3.579 .2.462 Unknown [id number] 2.16.840.1.654248.3.579 .2.462 Unknown [id number] 2.16.840.1.751198.3.579 .2.462 Social History Date Type Detail Facility Start: 11-10-2024 End: 03-02-2025 Tobacco smoking status NHIS Never smoked tobacco [facility] Start: 02-19-2020 End: 03-11-2025 Alcohol intake Current non-drinker of alcohol (finding) [facility] Start: 1940 Sex Assigned At Not on file C [facility] Start: 11-26-2021 End: 03-07-2022 Exposure to SARS-CoV-2 (event) Not sure [facility] Start: 11-24-2021 End: 08-29-2023 Tobacco smoking status PRIS Unknown if ever smoked [facility] Start: 11-17-2018 None [facility] Start: 11-17-2018 Alone [facility] Start: 12-24-2018 Non-smoker [facility] Start: 1940 Sex Assigned At Female W [facility] Start: 01-30-2022 End: 02-09-2022 Exposure to SARS-CoV-2 (event) Unable to assess [facility] Work Phone: Start: 09-11-2022 End: 12-28-2022 History of Social function [facility] Start: 09-11-2022 End: 12-28-2022 Tobacco use panel [facility] Work Phone: Start: 07-27-2012 National Score (1-10 0), lower number is lower risk 67 [facility] Start: 11-10-2024 Sex Female (finding) [facility] Medical Equipment Procedure Code Equipment Code Equipment Origin al Text Equipment Identifier Dates Nail Tfn-Advance d 10mm 130d Short Gold Green Gannon Ti-15mo 170mm - [id number] Start: 07-04-2017 Screw Tfn-Advanc ed 10.35mm Gold Titanium 90mm Bone Cannulated Sterile - [id number] Start: 07-04-2017 Screw 5mm 4.3mm T25 Full Thread Titanium 36mm Bone Lock Self Tap Blunt Tip - [id number] Start: 07-04-2017 Goals Date Patient Goal Desired Activity /State Functional Status Date Assessment Result Facility [facility] 04-01-2023 Are you deaf, or do you have serious difficulty hearing No 04/01/2023 6:20 PM Quirino Barrientos RN No [facility] 04-01-2023 Are you blind, or do you have serious difficulty seeing, even when wearing glasses No 04/01/2023 6:20 PM uQirino Barrientos RN No [facility] 04-01-2023 Do you have serious difficulty walking or climbing stairs No 04/01/2023 6:20 PM Quirino Barrientos RN No [facility] 04-01-2023 Do you have difficul ty dressing or bathing No 04/01/2023 6:20 PM Quirino Barrientos RN No [facility] 04-01-2023 Because of a physica l, mental, or emotional condition, do you have difficulty doing errands alone such as visiting a physician's office or shopping No 04/01/2023 6:20 PM Quirino Barrientos RN No [facility] 03-19-2023 Functional status Ambulates;Riaz r;Bathroom Privilege [facility] Work Phone: 10-24-2021 Functional status Ambulates [facility] Work Phone: Mental Status Date Assessment Result Facility 05-24-2023 Cognitive function Level Of Cons ciousness Awake;Alert;Appropriate;Fol lows Commands [facility] Work Phone: 04-18-2023 Cognitive function Voice/Name [facility] Work Phone: 04-15-2023 Cognitive function Level Of Cons ciousness Awake;Alert;Appropriate;Fol lows Commands [facility] Work Phone: 04-01-2023 Because of a physica l, mental, or emotional condition, do you have serious difficulty concentrating, remembering, or making decisions No 04/01/2023 6:20 PM Quirino Barrientos RN No [facility] 03-19-2023 Cognitive function Voice/Name [facility] Work Phone: 02-26-2023 Cognitive function Level Of Cons ciousness Awake;Alert;Appropriate;Fol lows Commands [facility] Work Phone: 05-20-2022 Cognitive function Level Of Cons ciousness Awake;Alert;Appropriate;Fol lows Commands [facility] Work Phone: 01-18-2022 Cognitive function Level Of Cons ciousness Awake;Alert;Appropriate;Fol lows Commands [facility] Work Phone: 10-24-2021 Cognitive function Voice/Name [facility] Work Phone: Clinical Notes 07-04-2017 to 04-08-2025 [...]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 Narrative* Prerna [...] Patient to be seen for Gait Training (09767) PLAN FOR NEXT VISIT: Further assess gait [...] with hospital socks on both feet 9rubber laboratory phlebotomist on bottom). Independent transfers w/c<>plinth and sit<> stand without assistive device. Pt demostrated improved mobility and transfers (supine<>sit with min A and sit<>stand independently). Ptdemonstrates lateral trunk deviation and decreased heel strike and push off B LE. TREATMENT: Therapeutic Exercise: 1: Reinstructed in LE Decongestive Exercises and re-issued illustrated handout for pt to refer to as a reminder at home. Pt's fiberglass grinder stated she would post [facility] exericse sheets on the wall near [...] 208 Prerna Bonds PT documented in this encounterOhiohealth [facility]09-29-2023 Discharge summary Author Sage Augustin [facility] May 24, 2023 9:28am Note Date/Time May 24, 2023 7:43am [facility] Medical Records Department [address] [place] [address] Emergency Department Summary 05/24/23 MR#: [id number] Acct: [id number] Name: AMBER KOROMA Rep #:[id number] 2 : 1940 82 From: Sage Augustin [...] of fluid. She has a home health RELIEF PHARMACIST that comes severaltimes a week to help [...] as needed for lymphedema, she states her oral therapist wanted her to be on it twice [...] up with a rodded L femur. [facility] Medical History Abdominal pain Abrasion Anemia Atherosclerotic heart disease of [place] coronary artery without angina pectoris Bilateral leg [...] rule out DVT, preliminary findings from the biomedical electronics technician is that it is negative for [...] 85.4 H Lymph % (Auto) 4.8 L [place] % (Auto) 6.4 Eos % (Auto) 2.5 [...] your Primary Care Provider. Call [facility] ([phone]) or report to the closest Emergency Room. Call 911 if necessary. 05/24/23927 <Electronically signed by Sage Augustin MD> Cosigner Signature (if applicable): CC: Dr. Tyler Benitez MD ~ Signed [facility] Work Phone: 1(918) 119-957809-22-2023 History of Present illness Narrative* Prerna Bonds, [...] Patient to be seen for Therapeutic exercise (12939), Manual therapy (24763), Self-correction management (63404), Patient/Family/Caregiver Education PLAN FOR NEXT VISIT: Continue [...] and assessment of patient's response to intervention. Self-Detention Management: 1: Displayed sample of solaris Ready [...] 1649 Prerna Bonds PT documented in this encounterOhiohealth [facility] Hospital09-15-2023 History of Present illness Narrative* Prerna [...] and assessment of patient's response to intervention. Self-Detention Management: 1: Reinforced importance of skin care, [...] 1645 Prerna Bonds PT documented in this encounterOhiohealth [facility] Hospital09-08-2023 History of Present illness Narrative* Prerna [...] instructions for pt. Spoke with [facility] on-call nurse who stated she would inquire with Dr. Norton and return message. Therapist called again at 12:03 and got recording that [facility] office is closed from 12;00-1:30pm. Instructed [...] 1302 Prerna Bonds PT documented in this encounterOhiohealth [facility] Hospital08-30-2023 History of Present illness Narrative* Prerna [...] and assessment of patient's response to intervention. Self-Detention Management: 1: Strongly encouraged pt to decrease [...] 1656 Prerna Bonds PT documented in this encounterOhiohealth [facility] Hospital08-25-2023 Discharge summary Author Armand Bob [facility] April 19, 2023 1:28pm Note Date/Time April 19, 2023 1: 22pm [facility] Medical Records Department [address] [place] [address] Discharge Summary 04/19/23 1320 MR#: [id number] Acct: [id number] Name: AMBER KOROMA Rep #:[id number] : 1940 82 From: Armand Bob MD PCP: Dr. Tyler Benitez MD Status:ADM DEQUAN Location: MS3 KD144-2 Providers Date of Admission: 04/15/23 Date of Discharge: 04/19/23 Primary Care Physician: Dr. Tyler Benitez MD Consultations 04/15/23 16:08 Consult: Onc/Wound/line tester Routine Comment: Reason for Consult:: B/L leg [...] Requested for PT OT eval and social psychologist to assist with discharge planning ? 04/17/2023 awaiting placement in a group home facility ? 04/18/2020 did complain of significant [...] in before D/C Order can be placed): Snf Facility Charges/Coding Visit Charges Inpatient E&M: 26243 Disch Hosp >30min 04/19/231327 <Electronically signed by Armand Bob MD> Cosigner Signature (if applicable): CC: Dr. Armand Bob MD; Dr. Tyler Benitez MD~ Signed [facility] Work Phone: 1(499) 306-762408-25-2023 Discharge summary Author Armand Bob [facility] April 19, 2023 1:20pm Note Date/Time April 19, 2023 1: 20pm [facility] Medical Records Department [address] [place] [address] Transfer to [facility] MR#: [id number] Acct: [id number] Name: AMBER KOROMA Rep #:[id number] : 1940 82 From: Armand Bob [...] SERVICES PRIOR TO HIS/HER TRANSFER TO [facility]. 04/19/231319<Electronically signed by Armand Bob MD> Diet [...] start on Ceftin for possible cellulitis ? 823 0690 remains afebrile 2. Physical deconditioning - Requested for PT OT eval and social psychologist to assist with discharge planning ? 04/17/2023 awaiting placement in a group home facility ? 04/18/2020 did complain of significant [...] in before D/C Order can be placed): Snf Facility (2) Falls Qualifiers: Encounter type: initial encounter Qualified Code(s): W19.XXXA - Unspecified fall, initial encounter 04/19/23 1320 <Electronically signed by Armand Bob MD> Cosigner Signature (if applicable): CC: Dr. Tyler Benitez MD; Dr. Mariusz Waters MD ~ [facility] Work Phone: 1(321) 680-902208-25-2023 Progress note Author Armand Bob [facility] April 19, 2023 10:57am Note Date/Time April 19, 2023 8: 08am [facility] Medical Records Department [address] [place] [address] Progress Note - Hospitalist 04/19/23 0808 MR#: [id number] Acct: [id number] Name: AMBER KOROMA Rep #:[id number] 2 : 1940 82 From: Armand Bob MD PCP: Dr. Tyler Benitez MD Status:ADM DEQUAN Location: [facility] CY388-8 Reason for Visit Reason for Visit: Diagnoses Adult failure to thrive (04/15/23) Unspecified fall, initial encounter (04/15/23) Subjective Subjective Patient seen awaiting transfer to group home facility Objective Data Objective Data Vital Signs: [...] Requested for PT OT eval and social psychologist to assist with discharge planning ? 04/17/2023 awaiting placement in a group home facility ? 04/18/2020 did complain of significant [...] 35minutes minutes Charges/Coding Visit Charges Inpatient E&M: 58406 Subs Hosp L2 04/19/23 1057 <Electronically signed by Armand Bob MD> Cosigner Signature (if applicable): CC: ~ Signed [facility] Work Phone: 1(588) 528-933108-24-2023 Progress note Author Armand Limvandana [facility] April 18, 2023 9:18am Note Date/Time April 18, 2023 8: 03am [facility] Medical Records Department [address] [place] [address] Progress Note - Hospitalist 04/18/23 0803 MR#: [id number] Acct: [id number] Name: AMBER KOROMA Rep #:[id number] : 1940 82 From: Armand Bob MD PCP: Dr. Tyler Benitez MD Status:ADM DEQUAN Location: [facility] NH421-4 Reason for Visit Reason for Visit: Diagnoses Adult failure to thrive (04/15/23) Unspecified fall, initial encounter (04/15/23) Subjective Subjective Complain of significant sacral pain. Imaging studies did not show any fracture. Awaiting insurance precertification prior to transfer to group home facility Objective Data Objective Data Vital Signs: [...] Requested for PT OT eval and social psychologist to assist with discharge planning ? 04/17/2023 awaiting placement in a group home facility ? 04/18/2020 did complain of significant [...] 35minutes minutes Charges/Coding Visit Charges Inpatient E&M: 70559 Subs Hosp L2 04/18/23 0918 <Electronically signed by Armand Bob MD> Cosigner Signature (if applicable): CC: ~ Signed [facility] Work Phone: 1(804) 760-137808-23-2023 Progress note Author Armand Bob [facility] April 17, 2023 9:14am Note Date/Time April 17, 2023 7: 19am [facility] Medical Records Department [address] [place] [address] Progress Note - Hospitalist 04/17/23718 MR#: [id number] Acct: [id number] Name: AMBER KOROMA Rep #:[id number] : 1940 82 From: Armand Bob MD PCP: Dr. Tyler Benitez MD Status:ADM DEQUAN Location: [place] [address] Reason for Visit Reason for Visit: Diagnoses Adult failure to thrive (04/15/23) Unspecified fall, initial encounter (04/15/23) Subjective Subjective Patient seen remains weak. Patient agreeable to being discharged to group home facility Objective Data Objective Data Vital Signs: [...] (Auto) 67.3, Lymph % (Auto) 15.5 L, [place] % (Auto) 13.3 H, Eos % (Auto) [...] Requested for PT OT eval and social psychologist to assist with discharge planning ? 04/17/2023 awaiting placement in a group home facility 3. Lymphedema involving both lower extremities [...] 35minutes minutes Charges/Coding Visit Charges Inpatient E&M: 49058 Subs Hosp L2 04/17/23 0914 <Electronically signed by Armand Bob MD> Cosigner Signature (if applicable): CC: ~ Signed [facility] Work Phone: 1(771) 788-279208-22-2023 Progress note Author Armand Bob [facility] April 16, 2023 8:47am Note Date/Time April 16, 2023 7: 21am [facility] Medical Records Department [address] [place] [address] Progress Note - Hospitalist 04/16/23718 MR#: [id number] Acct: [id number] Name: AMBER KOROMA Rep #:[id number] : 1940 82 From: Armand Bob MD PCP: Dr. Tyler Benitez MD Status:ADM DEQUAN Location: MS3 HZ867-3 Reason for Visit Reason for Visit: Diagnoses [...] (Auto) 66.9, Lymph % (Auto) 15.7 L, [place] % (Auto) 12.0 H, Eos % (Auto) [...] Sl. Cloudy, Urine pH 7.0, Ur Specific [place] 1.005, Urine Protein Negative, Urine Glucose (UA) [...] Requested for PT OT eval and social psychologist to assist with discharge planning 3. Lymphedema [...] 35minutes minutes Charges/Coding Visit Charges Inpatient E&M: 84570 Subs Hosp L2 04/16/23 0847 <Electronically signed by Armand oBb MD> Cosigner Signature (if applicable): CC: ~ Signed [facility] Work Phone: 1(576) 557-221008-21-2023 History and physical note Author Mariusz Waters [facility] April 15, 2023 4:00pm Note Date/Time April 15, 2023 3: 14pm [facility] Medical Records Department [address] [place] [address] H&P Exam - Hospitalist 04/15/23 1513 MR#: [id number] Acct: [id number] Name: AMBER KOROMA Rep #:[id number] : 1940 82 From: Mariusz Grayson PCP: Dr. Tyler Benitez MD Status:ADM DEQUAN Location: [place] [address] HPI - General General Date of Admission: [...] in the ED were in normal limit. [facility] Medical History Abdominal pain Abrasion Anemia Atherosclerotic heart disease of [place] coronary artery without angina pectoris Bilateral leg [...] (Auto) 66.9, Lymph % (Auto) 15.7 L, [place] % (Auto) 12.0 H, Eos % (Auto) [...] Sl. Cloudy, Urine pH 7.0, Ur Specific [place] 1.005, Urine Protein Negative, Urine Glucose (UA) [...] extremities lymphedema: [facility] Wound nurse consult. I do [...] failure to thrive: PT OT and case work aide consulted. Patient does not have any caregiver [...] shock if needed Total time spent in [id number] encounter in discussion of advanced directive 17 minutes. Laboratory Results 04/15/23 08:43: WBC 6.1, RBC 3.82 L, Hgb 10.4 L, Hct 35.1 L, MCV 91.9, MCH 27.2,MCHC 29.6 L, RDW Std Deviation 50.0 H, RDW Coeff of [place] 15.0 H, Plt Count 169, MPV 11.1, Immature Gran % (Auto) 1.000 H, Neut % (Auto) 66.9, Lymph % (Auto) 15.7 L, [place] % (Auto) 12.0 H, Eos % (Auto) [...] Sl. Cloudy, Urine pH 7.0, Ur Specific [place] 1.005, Urine Protein Negative, Urine Glucose (UA) 50 H, Urine Ketones Negative, Urine Occult Blood Negative, Urine Nitrite Negative, Urine Bilirubin Negative, Urine Urobilinogen Normal, Ur Leukocyte Esterase 25 H, Urine RBC 0 SEEN, Urine WBC 0 SEEN, Ur Squamous Epith Cells 0-5 SEEN, Urine Bacteria 0SEEN, Urine Mucus 0 SEEN Charges/Coding Visit Charges Inpatient E&M: 51029 Init Hosp L3 Procedures Hospitalists Procedures: 03031 Advncd Care Plan 30 Min 04/15/23 1600 <Electronically signed by Mariusz Waters MD> Cosigner Signature (if applicable): CC: Dr. Tyler Benitez MD; Dr. Mariusz Waters MD~ Signed [facility] Work Phone: 1(328) 777-214308-21-2023 Discharge summary Author Kiko Pittman [facility] April 15, 2023 3:21pm Note Date/Time April 15, 2023 9: 14am [facility] Medical Records Department [address] [place] [id number] Emergency Department Summary 04/15/23 MR#: [id number] Acct: [id number] Name: GAAMBER B Rep #:[id number] 5 : 1940 82 From: Kiko Pittman [...] Maximum Severity: Unable to quantitate Worsened by: Supervisor [employer] who is an RELIEF PHARMACIST general hunger care for her Relieved by: Nothing Associated Symptoms Associated Symptoms: HPI Narrative Narrative: Patient is a 82-year-old woman who lived independently until recently. She presently lives at a licensed practical nurse's home. Apparently the patient fell. When the fiberglass grinder attempted to get her up from the [...] Prior similar symptoms: No Recent [facility] Medical History Abdominal pain Abrasion Anemia Atherosclerotic heart disease of [place] coronary artery without angina pectoris Bilateral leg [...] in with a person who is a RELIEF PHARMACIST. That RELIEF PHARMACIST called squad today because unable to care [...] (Auto) 66.9 Lymph % (Auto) 15.7 L [place] % (Auto) 12.0 H Eos % (Auto) [...] Sl. Cloudy Urine pH 7.0 Ur Specific [place] 1.005 Urine Protein Negative Urine Glucose (UA) 50 H Urine Ketones Negative Urine Occult Blood Negative Urine Nitrite Negative Urine Bilirubin Negative Urine Urobilinogen Normal Ur Leukocyte Esterase 25 H Urine RBC 0 SEEN Urine WBC 0 SEEN Ur Squamous Epith Cells 0-5 SEEN Urine Bacteria 0 SEEN Urine Mucus 0 SEEN Treatment and Re-Evaluation :: T note the licensed and certified midwife for the emergency department informing that patient [...] pulmonary arterial hypertension, Atherosclerotic heart disease of [place] coronary artery without angina pectoris, Inability to [...] Care Provider] - Disposition Disposition: Acute Care [facility] Capacity Capacity Assessment Tool Can the [...] relative (spouse, child, parent, sibling)?: Yes (However fiberglass grinder ispresently in the department and raises concern regarding family and patient's ability to care for herself.) What to do if you have Problems For any increased pain, shortness of breath, bleeding, nausea or vomiting, chestpain, or any unexpected problems, contact your Primary Care Provider. Call [facility] ([phone]) or report to the closest Emergency Room. Call 911 if necessary. 04/15/23 1521 <Electronically signed by Kiko Pittman MD> Cosigner Signature (if applicable): CC: Dr. Tyler Benitez MD ~ Signed [facility] Work Phone: 1(532) 142-258608-21-2023 Discharge summary Author Kiko Pittman [facility] April 15, 2023 3:21pm Note Date/Time April 15, 2023 9: 14am [facility] Medical Records Department [address] [place] [address] Emergency Department Summary 04/15/23 MR#: [id number] Acct: [id number] Name: AMBER KOROMA Rep #:[id number] : 1940 82 From: Kiko Pittman [...] Maximum Severity: Unable to quantitate Worsened by: Supervisor [employer] who is an RELIEF PHARMACIST general hunger care for her Relieved by: Nothing Associated Symptoms Associated Symptoms: HPI Narrative Narrative: Patient is a 82-year-old woman who lived independently until recently. She presently lives at a licensed practical nurse's home. Apparently the patient fell. When the fiberglass grinder attempted to get her up from the [...] similar symptoms: No Recent Illness/Hospitalization: Yes [facility] Medical History Abdominal pain Abrasion Anemia Atherosclerotic heart disease of [place] coronary artery without angina pectoris Bilateral leg [...] in with a person who is a RELIEF PHARMACIST. That RELIEF PHARMACIST called squad today because unable to care [...] (Auto) 66.9 Lymph % (Auto) 15.7 L [place] % (Auto) 12.0 H Eos % (Auto) [...] Sl. Cloudy Urine pH 7.0 Ur Specific [place] 1.005 Urine Protein Negative Urine Glucose (UA) 50 H Urine Ketones Negative Urine Occult Blood Negative Urine Nitrite Negative Urine Bilirubin Negative Urine Urobilinogen Normal Ur Leukocyte Esterase 25 H Urine RBC 0 SEEN Urine WBC 0 SEEN Ur Squamous Epith Cells 0-5 SEEN Urine Bacteria 0 SEEN Urine Mucus 0 SEEN Treatment and Re-Evaluation :: T note the licensed and certified midwife for the emergency department informing that patient [...] pulmonary arterial hypertension, Atherosclerotic heart disease of [place] coronary artery without angina pectoris, Inability to [...] MD [Primary Care Provider] - Disposition Disposition: [facility] Capacity Capacity Assessment Tool Can the [...] relative (spouse, child, parent, sibling)?: Yes (However fiberglass grinder ispresently in the department and raises concern regarding family and patient's ability to care for herself.) What to do if you have Problems For any increased pain, shortness of breath, bleeding, nausea or vomiting, chestpain, or any unexpected problems, contact your Primary Care Provider. Call [facility] ([phone]) or report to the closest Emergency Room. Call 911 if necessary. 04/15/23 1521 <Electronically signed by Kiko Pittman MD> Cosigner Signature (if applicable): CC: Dr. Tyler Benitez MD ~ Signed [facility] Work Phone: 1(145) 715-524508-18-2023 History of Present illness Narrative* Prerna Bonds, [...] to (Pt has improved prognosis, d/t time study analyst assistance currently and can now recline with [...] Patient to be seen for Therapeutic exercise (56923), Manual therapy (11691), Self-correction management (18614), Patient/Family/Caregiver Education PLAN FOR NEXT VISIT: Continue [...] 1538 Prerna Bonds PT documented in this encounterOhio[facility]08-07-2023 NoteHNO ID: [id number] Author: Mckenzie Durant RN Service: Care Management [...] Information: Pt. to go to [facility] [place] to cont [facility] Rx and Out Pt. PT. SIGNATURE: Mckenzie Durant RN,BSN, ACM PATIENT NAME: Amber Koroma DATE: April 01, 2023 TIME: 4:23 PM CONTACT #: [phone] [id number] [id number] NoteHNO ID: [id number] Author: Mckenzie Durant RN Service: Care Management [...] the same [facility] in [place], [place] Per Pt. she has checked with her [employer] PPO and she cannot get Out Pt Care and Home Health at the same. SIGNATURE: Mckenzie Durant RN,BSN, ACM PATIENT NAME: Amber Koroma DATE: April 01, 2023 TIME: 2:21 PM PAGER/CONTACT #: [phone] [id number] [id number] NoteHNO ID: [id number] Author: Taisha Brock MD Service: Hospital Medicine Author Type: Physician Type: Progress Notes Filed: 03/31/2023 5:55 PM Note Text: DEPARTMENT OF HOSPITAL MEDICINE PROGRESS NOTE SERVICE DATE: 03/31/2023 SERVICE TIME: 5:32 PM Hospital Medicine/Primary Attending: Taisha Brock MD NIGHT AND WEEKEND COVERAGE: [place] COVERAGE: Days: [phone], please page attending physician. Nights: [phone], please page [place] Hospitalist Night coverage pager [phone]. Subjective INTERVAL HPI: Patient still having leg [...] - Infectious disease consult (more content not included)...[facility] 03-30-2023 NoteHNO ID: [id number] Author: Taisha Brock MD Service: Hospital Medicine Author Type: Physician Type: Plan of Care Filed: 03/30/2023 11:20 PM Note Text: SHORT HOSPITALIST PROGRESS NOTE PATIENT NAME: Amber Koroma SERVICE DATE: 03/30/2023 SERVICE TIME: 5:14 PM Hospital Medicine/Primary Attending: Taisha Brock MD NIGHT COVERAGE BETWEEN 5.30P-7.30A Page [phone] Patient seen and eval. Reviewed orders and HANDP from this AM. Patient still having left sided drainage of from the swelling from the lymphedema. No f/c/n/v. Wants to go home. Follows lymphedema clinic in [place] once a week. Patient states its hard to go twice a week. Patient trying to follow up with Dr. Jesse Law at [facility] to evaluate the lymphedema. DATA: Diagnostic tests [...] MD DATE: March 30, 2023 TIME: 11:14 PMKettering Memorial [id number] Miscellaneous Notes* Telephone Encounter - Prerna Bonds, PT - 03/29/2023 3:11 PM EDT Received phone call from [place] [employer] at home of the patient [...] going to local hospital. documented in this encounterOhio[facility]07-28-2023 History of Present illness Narrative* Prerna [...] treatment required one assist. Attempted to contact [facility] regarding discharge recommendations and pt [...] 346 Prerna Bonds PT documented in this encounterOhiohealth [facility]07-27-2023 Miscellaneous Notes* Telephone Encounter - Keyonna Ledesma - 03/21/2023 2:42 PM EDT [facility] calling to ask physical therapist about some options for care for this pt. Please call when able Disha [phone] documented in this encounterOhiohealth Van [facility] Hospital07-26-2023 Miscellaneous Notes* Telephone Encounter - Judith Au PA-C - 03/20/2023 3:54 PM EDT Called both daughter and patient No answer Lymphedema pool has exhausted all contact options of reaching patient. Patient or daughter to reach out if further assistance is required. Judith Au PA-C March 20, 2023 documented in this encounterOhiohealth Van [facility]07-14-2023 History of Present illness Narrative* Prerna [...] Patient to be seen for Therapeutic exercise (48581), Manual therapy (29860), Self-correction management (53280) PLAN FOR NEXT VISIT: Obtain LE volume [...] 60 Prerna Bonds PT documented in this encounterOhiohealth [facility]07-07-2023 History of Present illness Narrative* Prerna [...] 60 Prerna Bonds PT documented in this encounterOhiohealth [facility]07-05-2023 History of Present illness Narrative* Prerna [...] reduced in volume today (felt a little police worker and wrap appeared a little smaller) compared [...] 57 Prerna Bonds PT documented in this encounterOhiohealth [facility]06-30-2023 History of Present illness Narrative* Prerna [...] L lower leg to knee. 2: Pt's research home economist, Patrizia washed and patted dry her leg [...] 62 Prerna Bonds PT documented in this encounterOhiohealth [facility]06-28-2023 History of Present illness Narrative* Prerna [...] L lower leg to knee. 2: Pt's research home economist, Patrizia washed and patted dry her leg prior to therapist donning new wrapping with new stockinette, partial new padding and new short-stretch bandages. 3: Advised pt to seek medical consult regarding her continued infection despite several weeks of antibiotic treatment. Noted concern for progression of infection (possibility of sepsis) and skin breakdown. Pt's aid, Patriiza, also encouraged pt to go to local [...] 43 Prerna Bonds PT documented in this encounterOhiohealth [facility] Hospital06-16-2023 History of Present illness Narrative* Prerna [...] Patient to be seen for Therapeutic exercise (64564), Manual therapy (06596), Self-correction management (14320) PLAN FOR NEXT VISIT: Continue with MLD, short stretch wrapping and facilitating appropriate compression garments. SUBJECTIVE: Patient Reason for Visit: Pt reports she has had the [employer] working nearby her home and today does [...] Extremity Volume: 7462 L Lower Extremity Volume: 36310 Difference in Volume: 3209 Difference in % [...] 57 Prerna Bonds PT documented in this encounterOhiohealth Van [facility] Hospital06-02-2023 History of Present illness Narrative* Prerna [...] lymphatic dynamics and improve condition of tissue. Self-Detention Management: 1: Pt is using her quad cane to ambulate and has her research home economist, Patrizia to assist her when going out [...] 65 Prerna Bonds PT documented in this encounterOhiohealth Van [facility] Hospital05-12-2023 History of Present illness Narrative* Prerna [...] Patient to be seen for Therapeutic exercise (40660), Manual therapy (78604), Self-correction management (78465) PLAN FOR NEXT VISIT: Pt to schedule [...] R LE through a local vendor [facility]. Pain: Pain Pain Level: 0 Post [...] 45 Prerna Bonds PT documented in this encounterOhiohealth Van [facility] Hospital05-11-2023 Miscellaneous Notes* Telephone Encounter - Judith Au PA-C - 01/03/2023 10:37 AM EDT Ho bear No answer Left VM All attempts to reach the patient have been attempted. If patient would like to move forward with possible next steps then she may contact our department for triage questions and next steps. Judith Au PA-C. January 03, 2023 documented in this encounterOhiohealth Van [facility] Hospital05-10-2023 Miscellaneous Notes* Telephone Encounter - Judith Au PA-C - 01/02/2023 1:05 PM EDT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 failure) Essential hypertension Hyperlipemia, mixed Lymphedema Nonrheumatic mitral valve insufficiency History of heart disease History of ITP Chronic renal insufficiency Cellulitis of left leg Leukocytosis Adult failure to thrive At high risk for falls Atherosclerotic heart disease of [place] coronary artery without angina pectoris Essential hypertension Secondary pulmonary arterial hypertension [place] Inability to walk Chief Complaint WEAKNESS 3 M FU CELLULITIS Cellulitis Cellulitis Cellulitis Lower Extremity LEFT FOOT PAIN FAILURE TO THRIVE FAILURE TO THRIVE FAILURE TO THRIVE FAILURE TO THRIVE FAILURE TO THRIVE EDEMA EORDER Reason for Visit Atherosclerotic hear t disease of [place] coronary artery without angina pectoris Chronic combined systolic and diastolic CHF (congestive heart failure) Essential hypertension Hyperlipemia, mixed Lymphedema Nonrheumatic mitral valve insufficiency History of heart disease History of ITP Chronic renal insufficiency Cellulitis of left leg Leukocytosis Adult failure to thrive At high risk for falls Atherosclerotic heart disease of [place] coronary artery without angina pectoris Essential hypertension Secondary pulmonary arterial hypertension [place] Inability to walk Chief Complaint 3 M FU CELLULITIS Cellulitis Cellulitis Cellulitis Lower Extremity LEFT FOOT PAIN FAILURE TO THRIVE FAILURE TO THRIVE FAILURE TO THRIVE FAILURE TO THRIVE FAILURE TO THRIVE EDEMA EORDER Reason for Visit Atherosclerotic hear t disease of [place] coronary artery without angina pectoris Chronic combined systolic and diastolic CHF (congestive heart failure) Essential hypertension Hyperlipemia, mixed Lymphedema Nonrheumatic mitral valve insufficiency History of heart disease History of ITP Chronic renal insufficiency Cellulitis of left leg Leukocytosis Adult failure to thrive At high risk for falls Atherosclerotic heart disease of [place] coronary artery without angina pectoris Essential hypertension [...] [facility], [facility] [place] [address] [place] [address] Referral ID Status Reason Start Date Expiration Date Visits Requested Visits Authorized [id number] Pending Review PCP Requested Referral Auto-Generate d Referral 03/21/2022 06/19/2022 1 1 Referral ID Status Reason Start Date Expiration Date Visits Requested Visits Authorized [id number] Pending Review PCP Requested Referral Auto-Generate d Referral 11/23/2022 02/21/2023 1 1 Referral ID Status Reason Start Date Expiration Date Visits Requested Visits Authorized [id number] Pending Review PCP Requested Referral Auto-Generate d Referral 04/12/2023 07/11/2023 1 1 Referral ID Status Reason Start Date Expiration Date Visits Requested Visits Authorized [id number] Pending Review PCP Requested Referral Auto-Generate d Referral 01/17/2024 04/16/2024 1 1 Referral ID Status Reason Start Date Expiration Date Visits Requested Visits Authorized [id number] New Request PCP Requested Referral Auto-Generate d Referral 09/25/2024 12/24/2024 1 1 Additional Source Comments INFORMATION SOURCE (unrecogn ized section and content) DATE CREATED AUTHOR 02/18/2018 [facility] DATE CREATED AUTHOR AUTHOR'S ORGANIZ ATION 08/03/2018 [facility] DATE CREATED AUTHOR AUTHOR'S ORGANIZ ATION 01/04/2023 [facility] DATE CREATED AUTHOR AUTHOR'S ORGANIZ ATION 04/14/2023 [facility] DATE CREATED AUTHOR AUTHOR'S ORGANIZ ATION 03/19/2025 [facility] DATE CREATED AUTHOR AUTHOR'S ORGANIZ ATION 04/10/2025 [facility] DATE CREATED AUTHOR AUTHOR'S ORGANIZ ATION 06/16/2025 [facility] Source Comments (unrecognize d section and content) In the event this informatio n is protected by the Federal Confidentiality of Alcohol and Drug Abuse Patient Records regulations: The Federal rules restrict any use of the information to criminally investigate or prosecute any alcohol or drug abuse patient.[facility] the event this information is protected by the Federal Confidentiality of Alcohol and Drug Abuse Patient Records regulations: The Federal rules restrict any use of the information to criminally investigate or prosecute any alcohol or drug abuse patient.[facility] HospitalIn the event this information is protected by the Federal Confidentiality of Alcohol and Drug Abuse Patient Records regulations: The Federal rules restrict any use of the information to criminally investigate or prosecute any alcohol or drug abuse patient.[facility] HospitalIn the event this information is protected by the Federal Confidentiality of Alcohol and Drug Abuse Patient Records regulations: The Federal rules restrict any use of the information to criminally investigate or prosecute any alcohol or drug abuse patient.[facility] HospitalIn the event this information is protected by the Federal Confidentiality of Alcohol and Drug Abuse Patient Records regulations: The Federal rules restrict any use of the information to criminally investigate or prosecute any alcohol or drug abuse patient.[facility] HospitalIn the event this information is protected by the Federal Confidentiality of Alcohol and Drug Abuse Patient Records regulations: The Federal rules restrict any use of the information to criminally investigate or prosecute any alcohol or drug abuse patient.[facility] HospitalIn the event this information is protected by the Federal Confidentiality of Alcohol and Drug Abuse Patient Records regulations: The Federal rules restrict any use of the information to criminally investigate or prosecute any alcohol or drug abuse patient.[facility] HospitalIn the event this information is protected by the Federal Confidentiality of Alcohol and Drug Abuse Patient Records regulations: The Federal rules restrict any use of the information to criminally investigate or prosecute any alcohol or drug abuse patient.[facility] HospitalIn the event this information is protected by the Federal Confidentiality of Alcohol and Drug Abuse Patient Records regulations: The Federal rules restrict any use of the information to criminally investigate or prosecute any alcohol or drug abuse patient.[facility] HospitalIn the event this information is protected by the Federal Confidentiality of Alcohol and Drug Abuse Patient Records regulations: The Federal rules restrict any use of the information to criminally investigate or prosecute any alcohol or drug abuse patient.[facility] HospitalIn the event this information is protected by the Federal Confidentiality of Alcohol and Drug Abuse Patient Records regulations: The Federal rules restrict any use of the information to criminally investigate or prosecute any alcohol or drug abuse patient.[facility] HospitalIn the event this information is protected by the Federal Confidentiality of Alcohol and Drug Abuse Patient Records regulations: The Federal rules restrict any use of the information to criminally investigate or prosecute any alcohol or drug abuse patient.[facility] HospitalIn the event this information is protected by the Federal Confidentiality of Alcohol and Drug Abuse Patient Records regulations: The Federal rules restrict any use of the information to criminally investigate or prosecute any alcohol or drug abuse patient.[facility] HospitalIn the event this information is protected by the Federal Confidentiality of Alcohol and Drug Abuse Patient Records regulations: The Federal rules restrict any use of the information to criminally investigate or prosecute any alcohol or drug abuse patient.[facility] HospitalIn the event this information is protected by the Federal Confidentiality of Alcohol and Drug Abuse Patient Records regulations: The Federal rules restrict any use of the information to criminally investigate or prosecute any alcohol or drug abuse patient.[facility] HospitalIn the event this information is protected by the Federal Confidentiality of Alcohol and Drug Abuse Patient Records regulations: The Federal rules restrict any use of the information to criminally investigate or prosecute any alcohol or drug abuse patient.[facility] HospitalIn the event this information is protected by the Federal Confidentiality of Alcohol and Drug Abuse Patient Records regulations: The Federal rules restrict any use of the information to criminally investigate or prosecute any alcohol or drug abuse patient.[facility] HospitalIn the event this information is protected by the Federal Confidentiality of Alcohol and Drug Abuse Patient Records regulations: The Federal rules restrict any use of the information to criminally investigate or prosecute any alcohol or drug abuse patient.[facility] HospitalIn the event this information is protected by the Federal Confidentiality of Alcohol and Drug Abuse Patient Records regulations: The Federal rules restrict any use of the information to criminally investigate or prosecute any alcohol or drug abuse patient.[facility] HospitalIn the event this information is protected by the Federal Confidentiality of Alcohol and Drug Abuse Patient Records regulations: The Federal rules restrict any use of the information to criminally investigate or prosecute any alcohol or drug abuse patient.[facility] HospitalIn the event this information is protected by the Federal Confidentiality of Alcohol and Drug Abuse Patient Records regulations: The Federal rules restrict any use of the information to criminally investigate or prosecute any alcohol or drug abuse patient.[facility] HospitalIn the event this information is protected by the Federal Confidentiality of Alcohol and Drug Abuse Patient Records regulations: The Federal rules restrict any use of the information to criminally investigate or prosecute any alcohol or drug abuse patient.[facility] HospitalIn the event this information is protected by the Federal Confidentiality of Alcohol and Drug Abuse Patient Records regulations: The Federal rules restrict any use of the information to criminally investigate or prosecute any alcohol or drug abuse patient.[facility] HospitalIn the event this information is protected by the Federal Confidentiality of Alcohol and Drug Abuse Patient Records regulations: The Federal rules restrict any use of the information to criminally investigate or prosecute any alcohol or drug abuse patient.[facility] HospitalIn the event this information is protected by the Federal Confidentiality of Alcohol and Drug Abuse Patient Records regulations: The Federal rules restrict any use of the information to criminally investigate or prosecute any alcohol or drug abuse patient.[facility] HospitalIn the event this information is protected by the Federal Confidentiality of Alcohol and Drug Abuse Patient Records regulations: The Federal rules restrict any use of the information to criminally investigate or prosecute any alcohol or drug abuse patient.[facility] HospitalIn the event this information is protected by the Federal Confidentiality of Alcohol and Drug Abuse Patient Records regulations: The Federal rules restrict any use of the information to criminally investigate or prosecute any alcohol or drug abuse patient.[facility] HospitalIn the event this information is protected by the Federal Confidentiality of Alcohol and Drug Abuse Patient Records regulations: The Federal rules restrict any use of the information to criminally investigate or prosecute any alcohol or drug abuse patient.[facility] HospitalIn the event this information is protected by the Federal Confidentiality of Alcohol and Drug Abuse Patient Records regulations: The Federal rules restrict any use of the information to criminally investigate or prosecute any alcohol or drug abuse patient.[facility] HospitalIn the event this information is protected by the Federal Confidentiality of Alcohol and Drug Abuse Patient Records regulations: The Federal rules restrict any use of the information to criminally investigate or prosecute any alcohol or drug abuse patient.[facility] HospitalIn the event this information is protected by the Federal Confidentiality of Alcohol and Drug Abuse Patient Records regulations: The Federal rules restrict any use of the information to criminally investigate or prosecute any alcohol or drug abuse patient.[facility] HospitalIn the event this information is protected by the Federal Confidentiality of Alcohol and Drug Abuse Patient Records regulations: The Federal rules restrict any use of the information to criminally investigate or prosecute any alcohol or drug abuse patient.[facility] HospitalIn the event this information is protected by the Federal Confidentiality of Alcohol and Drug Abuse Patient Records regulations: The Federal rules restrict any use of the information to criminally investigate or prosecute any alcohol or drug abuse patient.[facility] HospitalIn the event this information is protected by the Federal Confidentiality of Alcohol and Drug Abuse Patient Records regulations: The Federal rules restrict any use of the information to criminally investigate or prosecute any alcohol or drug abuse patient.[facility] HospitalIn the event this information is protected by the Federal Confidentiality of Alcohol and Drug Abuse Patient Records regulations: The Federal rules restrict any use of the information to criminally investigate or prosecute any alcohol or drug abuse patient.[facility] HospitalIn the event this information is protected by the Federal Confidentiality of Alcohol and Drug Abuse Patient Records regulations: The Federal rules restrict any use of the information to criminally investigate or prosecute any alcohol or drug abuse patient.[facility] HospitalIn the event this information is protected by the Federal Confidentiality of Alcohol and Drug Abuse Patient Records regulations: The Federal rules restrict any use of the information to criminally investigate or prosecute any alcohol or drug abuse patient.[facility] HospitalIn the event this information is protected by the Federal Confidentiality of Alcohol and Drug Abuse Patient Records regulations: The Federal rules restrict any use of the information to criminally investigate or prosecute any alcohol or drug abuse patient.[facility] HospitalIn the event this information is protected by the Federal Confidentiality of Alcohol and Drug Abuse Patient Records regulations: The Federal rules restrict any use of the information to criminally investigate or prosecute any alcohol or drug abuse patient.[facility] HospitalIn the event this information is protected by the Federal Confidentiality of Alcohol and Drug Abuse Patient Records regulations: The Federal rules restrict any use of the information to criminally investigate or prosecute any alcohol or drug abuse patient.[facility] HospitalIn the event this information is protected by the Federal Confidentiality of Alcohol and Drug Abuse Patient Records regulations: The Federal rules restrict any use of the information to criminally investigate or prosecute any alcohol or drug abuse patient.[facility] HospitalIn the event this information is protected by the Federal Confidentiality of Alcohol and Drug Abuse Patient Records regulations: The Federal rules restrict any use of the information to criminally investigate or prosecute any alcohol or drug abuse patient.[facility] HospitalIn the event this information is protected by the Federal Confidentiality of Alcohol and Drug Abuse Patient Records regulations: The Federal rules restrict any use of the information to criminally investigate or prosecute any alcohol or drug abuse patient.[facility] HospitalIn the event this information is protected by the Federal Confidentiality of Alcohol and Drug Abuse Patient Records regulations: The Federal rules restrict any use of the information to criminally investigate or prosecute any alcohol or drug abuse patient.[facility] HospitalIn the event this information is protected by the Federal Confidentiality of Alcohol and Drug Abuse Patient Records regulations: The Federal rules restrict any use of the information to criminally investigate or prosecute any alcohol or drug abuse patient.[facility] HospitalIn the event this information is protected by the Federal Confidentiality of Alcohol and Drug Abuse Patient Records regulations: The Federal rules restrict any use of the information to criminally investigate or prosecute any alcohol or drug abuse patient.[facility] HospitalIn the event this information is protected by the Federal Confidentiality of Alcohol and Drug Abuse Patient Records regulations: The Federal rules restrict any use of the information to criminally investigate or prosecute any alcohol or drug abuse patient.[facility] HospitalIn the event this information is protected by the Federal Confidentiality of Alcohol and Drug Abuse Patient Records regulations: The Federal rules restrict any use of the information to criminally investigate or prosecute any alcohol or drug abuse patient.[facility] HospitalIn the event this information is protected by the Federal Confidentiality of Alcohol and Drug Abuse Patient Records regulations: The Federal rules restrict any use of the information to criminally investigate or prosecute any alcohol or drug abuse patient.[facility] HospitalIn the event this information is protected by the Federal Confidentiality of Alcohol and Drug Abuse Patient Records regulations: The Federal rules restrict any use of the information to criminally investigate or prosecute any alcohol or drug abuse patient.[facility] HospitalIn the event this information is protected by the Federal Confidentiality of Alcohol and Drug Abuse Patient Records regulations: The Federal rules restrict any use of the information to criminally investigate or prosecute any alcohol or drug abuse patient.[facility] HospitalIn the event this information is protected by the Federal Confidentiality of Alcohol and Drug Abuse Patient Records regulations: The Federal rules restrict any use of the information to criminally investigate or prosecute any alcohol or drug abuse patient.[facility] HospitalIn the event this information is protected by the Federal Confidentiality of Alcohol and Drug Abuse Patient Records regulations: The Federal rules restrict any use of the information to criminally investigate or prosecute any alcohol or drug abuse patient.[facility] HospitalIn the event this information is protected by the Federal Confidentiality of Alcohol and Drug Abuse Patient Records regulations: The Federal rules restrict any use of the information to criminally investigate or prosecute any alcohol or drug abuse patient.[facility] HospitalIn the event this information is protected by the Federal Confidentiality of Alcohol and Drug Abuse Patient Records regulations: The Federal rules restrict any use of the information to criminally investigate or prosecute any alcohol or drug abuse patient.[facility] HospitalIn the event this information is protected by the Federal Confidentiality of Alcohol and Drug Abuse Patient Records regulations: The Federal rules restrict any use of the information to criminally investigate or prosecute any alcohol or drug abuse patient.[facility] HospitalIn the event this information is protected by the Federal Confidentiality of Alcohol and Drug Abuse Patient Records regulations: The Federal rules restrict any use of the information to criminally investigate or prosecute any alcohol or drug abuse patient.[facility] HospitalIn the event this information is protected by the Federal Confidentiality of Alcohol and Drug Abuse Patient Records regulations: The Federal rules restrict any use of the information to criminally investigate or prosecute any alcohol or drug abuse patient.[facility] HospitalIn the event this information is protected by the Federal Confidentiality of Alcohol and Drug Abuse Patient Records regulations: The Federal rules restrict any use of the information to criminally investigate or prosecute any alcohol or drug abuse patient.[facility] HospitalIn the event this information is protected by the Federal Confidentiality of Alcohol and Drug Abuse Patient Records regulations: The Federal rules restrict any use of the information to criminally investigate or prosecute any alcohol or drug abuse patient.[facility] HospitalIn the event this information is protected by the Federal Confidentiality of Alcohol and Drug Abuse Patient Records regulations: The Federal rules restrict any use of the information to criminally investigate or prosecute any alcohol or drug abuse patient.[facility] HospitalIn the event this information is protected by the Federal Confidentiality of Alcohol and Drug Abuse Patient Records regulations: The Federal rules restrict any use of the information to criminally investigate or prosecute any alcohol or drug abuse patient.[facility] HospitalIn the event this information is protected by the Federal Confidentiality of Alcohol and Drug Abuse Patient Records regulations: The Federal rules restrict any use of the information to criminally investigate or prosecute any alcohol or drug abuse patient.[facility] HospitalIn the event this information is protected by the Federal Confidentiality of Alcohol and Drug Abuse Patient Records regulations: The Federal rules restrict any use of the information to criminally investigate or prosecute any alcohol or drug abuse patient.[facility] HospitalIn the event this information is protected by the Federal Confidentiality of Alcohol and Drug Abuse Patient Records regulations: The Federal rules restrict any use of the information to criminally investigate or prosecute any alcohol or drug abuse patient.[facility] HospitalIn the event this information is protected by the Federal Confidentiality of Alcohol and Drug Abuse Patient Records regulations: The Federal rules restrict any use of the information to criminally investigate or prosecute any alcohol or drug abuse patient.[facility] HospitalIn the event this information is protected by the Federal Confidentiality of Alcohol and Drug Abuse Patient Records regulations: The Federal rules restrict any use of the information to criminally investigate or prosecute any alcohol or drug abuse patient.[facility] HospitalIn the event this information is protected by the Federal Confidentiality of Alcohol and Drug Abuse Patient Records regulations: The Federal rules restrict any use of the information to criminally investigate or prosecute any alcohol or drug abuse patient.[facility] HospitalIn the event this information is protected by the Federal Confidentiality of Alcohol and Drug Abuse Patient Records regulations: The Federal rules restrict any use of the information to criminally investigate or prosecute any alcohol or drug abuse patient.[facility] HospitalIn the event this information is protected by the Federal Confidentiality of Alcohol and Drug Abuse Patient Records regulations: The Federal rules restrict any use of the information to criminally investigate or prosecute any alcohol or drug abuse patient.[facility] HospitalIn the event this information is protected by the Federal Confidentiality of Alcohol and Drug Abuse Patient Records regulations: The Federal rules restrict any use of the information to criminally investigate or prosecute any alcohol or drug abuse patient.[facility] HospitalIn the event this information is protected by the Federal Confidentiality of Alcohol and Drug Abuse Patient Records regulations: The Federal rules restrict any use of the information to criminally investigate or prosecute any alcohol or drug abuse patient.[facility] HospitalIn the event this information is protected by the Federal Confidentiality of Alcohol and Drug Abuse Patient Records regulations: The Federal rules restrict any use of the information to criminally investigate or prosecute any alcohol or drug abuse patient.[facility] HospitalIn the event this information is protected by the Federal Confidentiality of Alcohol and Drug Abuse Patient Records regulations: The Federal rules restrict any use of the information to criminally investigate or prosecute any alcohol or drug abuse patient.[facility] HospitalIn the event this information is protected by the Federal Confidentiality of Alcohol and Drug Abuse Patient Records regulations: The Federal rules restrict any use of the information to criminally investigate or prosecute any alcohol or drug abuse patient.[facility] HospitalIn the event this information is protected by the Federal Confidentiality of Alcohol and Drug Abuse Patient Records regulations: The Federal rules restrict any use of the information to criminally investigate or prosecute any alcohol or drug abuse patient.[facility] HospitalIn the event this information is protected by the Federal Confidentiality of Alcohol and Drug Abuse Patient Records regulations: The Federal rules restrict any use of the information to criminally investigate or prosecute any alcohol or drug abuse patient.[facility] HospitalIn the event this information is protected by the Federal Confidentiality of Alcohol and Drug Abuse Patient Records regulations: The Federal rules restrict any use of the information to criminally investigate or prosecute any alcohol or drug abuse patient.[facility] HospitalIn the event this information is protected by the Federal Confidentiality of Alcohol and Drug Abuse Patient Records regulations: The Federal rules restrict any use of the information to criminally investigate or prosecute any alcohol or drug abuse patient.[facility] HospitalIn the event this information is protected by the Federal Confidentiality of Alcohol and Drug Abuse Patient Records regulations: The Federal rules restrict any use of the information to criminally investigate or prosecute any alcohol or drug abuse patient.[facility] HospitalIn the event this information is protected by the Federal Confidentiality of Alcohol and Drug Abuse Patient Records regulations: The Federal rules restrict any use of the information to criminally investigate or prosecute any alcohol or drug abuse patient.[facility] HospitalIn the event this information is protected by the Federal Confidentiality of Alcohol and Drug Abuse Patient Records regulations: The Federal rules restrict any use of the information to criminally investigate or prosecute any alcohol or drug abuse patient.[facility] HospitalIn the event this information is protected by the Federal Confidentiality of Alcohol and Drug Abuse Patient Records regulations: The Federal rules restrict any use of the information to criminally investigate or prosecute any alcohol or drug abuse patient.[facility] HospitalIn the event this information is protected by the Federal Confidentiality of Alcohol and Drug Abuse Patient Records regulations: The Federal rules restrict any use of the information to criminally investigate or prosecute any alcohol or drug abuse patient.[facility] HospitalIn the event this information is protected by the Federal Confidentiality of Alcohol and Drug Abuse Patient Records regulations: The Federal rules restrict any use of the information to criminally investigate or prosecute any alcohol or drug abuse patient.[facility] HospitalIn the event this information is protected by the Federal Confidentiality of Alcohol and Drug Abuse Patient Records regulations: The Federal rules restrict any use of the information to criminally investigate or prosecute any alcohol or drug abuse patient.[facility] HospitalIn the event this information is protected by the Federal Confidentiality of Alcohol and Drug Abuse Patient Records regulations: The Federal rules restrict any use of the information to criminally investigate or prosecute any alcohol or drug abuse patient.[facility] HospitalIn the event this information is protected by the Federal Confidentiality of Alcohol and Drug Abuse Patient Records regulations: The Federal rules restrict any use of the information to criminally investigate or prosecute any alcohol or drug abuse patient.[facility] HospitalIn the event this information is protected by the Federal Confidentiality of Alcohol and Drug Abuse Patient Records regulations: The Federal rules restrict any use of the information to criminally investigate or prosecute any alcohol or drug abuse patient.[facility] HospitalIn the event this information is protected by the Federal Confidentiality of Alcohol and Drug Abuse Patient Records regulations: The Federal rules restrict any use of the information to criminally investigate or prosecute any alcohol or drug abuse patient.[facility] HospitalIn the event this information is protected by the Federal Confidentiality of Alcohol and Drug Abuse Patient Records regulations: The Federal rules restrict any use of the information to criminally investigate or prosecute any alcohol or drug abuse patient.[facility] HospitalIn the event this information is protected by the Federal Confidentiality of Alcohol and Drug Abuse Patient Records regulations: The Federal rules restrict any use of the information to criminally investigate or prosecute any alcohol or drug abuse patient.[facility] HospitalIn the event this information is protected by the Federal Confidentiality of Alcohol and Drug Abuse Patient Records regulations: The Federal rules restrict any use of the information to criminally investigate or prosecute any alcohol or drug abuse patient.[facility] HospitalIn the event this information is protected by the Federal Confidentiality of Alcohol and Drug Abuse Patient Records regulations: The Federal rules restrict any use of the information to criminally investigate or prosecute any alcohol or drug abuse patient.[facility] HospitalIn the event this information is protected by the Federal Confidentiality of Alcohol and Drug Abuse Patient Records regulations: The Federal rules restrict any use of the information to criminally investigate or prosecute any alcohol or drug abuse patient.[facility] HospitalIn the event this information is protected by the Federal Confidentiality of Alcohol and Drug Abuse Patient Records regulations: The Federal rules restrict any use of the information to criminally investigate or prosecute any alcohol or drug abuse patient.[facility] HospitalIn the event this information is protected by the Federal Confidentiality of Alcohol and Drug Abuse Patient Records regulations: The Federal rules restrict any use of the information to criminally investigate or prosecute any alcohol or drug abuse patient.[facility] HospitalIn the event this information is protected by the Federal Confidentiality of Alcohol and Drug Abuse Patient Records regulations: The Federal rules restrict any use of the information to criminally investigate or prosecute any alcohol or drug abuse patient.[facility] HospitalIn the event this information is protected by the Federal Confidentiality of Alcohol and Drug Abuse Patient Records regulations: The Federal rules restrict any use of the information to criminally investigate or prosecute any alcohol or drug abuse patient.[facility] HospitalIn the event this information is protected by the Federal Confidentiality of Alcohol and Drug Abuse Patient Records regulations: The Federal rules restrict any use of the information to criminally investigate or prosecute any alcohol or drug abuse patient.[facility] HospitalIn the event this information is protected by the Federal Confidentiality of Alcohol and Drug Abuse Patient Records regulations: The Federal rules restrict any use of the information to criminally investigate or prosecute any alcohol or drug abuse patient.[facility] HospitalIn the event this information is protected by the Federal Confidentiality of Alcohol and Drug Abuse Patient Records regulations: The Federal rules restrict any use of the information to criminally investigate or prosecute any alcohol or drug abuse patient.[facility] HospitalIn the event this information is protected by the Federal Confidentiality of Alcohol and Drug Abuse Patient Records regulations: The Federal rules restrict any use of the information to criminally investigate or prosecute any alcohol or drug abuse patient.[facility] HospitalIn the event this information is protected by the Federal Confidentiality of Alcohol and Drug Abuse Patient Records regulations: The Federal rules restrict any use of the information to criminally investigate or prosecute any alcohol or drug abuse patient.[facility] HospitalIn the event this information is protected by the Federal Confidentiality of Alcohol and Drug Abuse Patient Records regulations: The Federal rules restrict any use of the information to criminally investigate or prosecute any alcohol or drug abuse patient.[facility] HospitalIn the event this information is protected by the Federal Confidentiality of Alcohol and Drug Abuse Patient Records regulations: The Federal rules restrict any use of the information to criminally investigate or prosecute any alcohol or drug abuse patient.[facility] HospitalIn the event this information is protected by the Federal Confidentiality of Alcohol and Drug Abuse Patient Records regulations: The Federal rules restrict any use of the information to criminally investigate or prosecute any alcohol or drug abuse patient.[facility] HospitalIn the event this information is protected by the Federal Confidentiality of Alcohol and Drug Abuse Patient Records regulations: The Federal rules restrict any use of the information to criminally investigate or prosecute any alcohol or drug abuse patient.[facility] HospitalIn the event this information is protected by the Federal Confidentiality of Alcohol and Drug Abuse Patient Records regulations: The Federal rules restrict any use of the information to criminally investigate or prosecute any alcohol or drug abuse patient.[facility] HospitalIn the event this information is protected by the Federal Confidentiality of Alcohol and Drug Abuse Patient Records regulations: The Federal rules restrict any use of the information to criminally investigate or prosecute any alcohol or drug abuse patient.[facility] HospitalIn the event this information is protected by the Federal Confidentiality of Alcohol and Drug Abuse Patient Records regulations: The Federal rules restrict any use of the information to criminally investigate or prosecute any alcohol or drug abuse patient.[facility] HospitalIn the event this information is protected by the Federal Confidentiality of Alcohol and Drug Abuse Patient Records regulations: The Federal rules restrict any use of the information to criminally investigate or prosecute any alcohol or drug abuse patient.[facility] HospitalIn the event this information is protected by the Federal Confidentiality of Alcohol and Drug Abuse Patient Records regulations: The Federal rules restrict any use of the information to criminally investigate or prosecute any alcohol or drug abuse patient.[facility] HospitalIn the event this information is protected by the Federal Confidentiality of Alcohol and Drug Abuse Patient Records regulations: The Federal rules restrict any use of the information to criminally investigate or prosecute any alcohol or drug abuse patient.[facility] HospitalIn the event this information is protected by the Federal Confidentiality of Alcohol and Drug Abuse Patient Records regulations: The Federal rules restrict any use of the information to criminally investigate or prosecute any alcohol or drug abuse patient.[facility] HospitalIn the event this information is protected by the Federal Confidentiality of Alcohol and Drug Abuse Patient Records regulations: The Federal rules restrict any use of the information to criminally investigate or prosecute any alcohol or drug abuse patient.[facility] Reason for Visit (unrecogniz ed section and content) Reason Comments PT Progress Note Specialty Diagnoses / Procedures Referred By Contac t Referred To Contact [facility] Diagnoses Unsteady gait when walking Lymphedema of both lower extremities Procedures CONSULT TO PHYSICAL THERAPY PHYSICAL THERAPY EVALUATION HIGH COMPLEX 45 MINS Chhaya Stacy MD [address] [place] [address] [facility] [address] [address] Referral ID Status Reason Start Date Expiration Date Visits Requested Visits Authorized [id number] Authorized Auto-Generat ed Referral 05/15/2023 07/25/2023 10 10 Reason Comments Physical Therapy PT Re-eval Reason Comments Physical Therapy Specialty Diagnoses / Procedures Referred By Contac t Referred To Contact [facility] Diagnoses Lymphedema of both lower extremities Procedures PT REHAB FOLLOW UP ORDER THERAPEUTIC EXERCISES RE, EA 15 MIN. Prerna Bonds PT [facility] [address] [address] Referral ID Status Reason Start Date Expiration Date Visits Requested Visits Authorized [id number] Authorized PCP Requested Referral Auto-Generate d Referral 12/04/2022 03/05/2023 4 4 Specialty Diagnoses / Procedures Referred By Contac t Referred To Contact Physical Therapy / PHYSICAL THERAPY Diagnoses I89.0 (ICD-10-CM) - Lymphedema of both lower extremities Procedures EST RS PT LYMPHEDEMA Jaquan Sanchez MD [address] [place] [id number] Prerna Bonds PT Referral ID Status Reason Start Date Expiration Date V isits Requested Visits Authorized [id number] Authorized 06/20/2022 08/24/2022 8 8 Referral ID Status Reason Start Date Expiration Date Visits Requested Visits Authorized [id number] Authorized PCP Requested Referral Auto-Generate d Referral 03/21/2022 06/21/2022 12 12 Specialty Diagnoses / Procedures Referred By Contac t Referred To Contact Physical Therapy / PHYSICAL THERAPY Diagnoses Lymphedema [I89.0] Procedures EST RS PT LYMPHEDEMA Self Prerna Bonds, PT Referral ID Status Reason Start Date Expiration Date Visits Re quested Visits Authorized [id number] Closed 09/04/2021 08/25/2022 1 1 Specialty Diagnoses / Procedures Referred By Contac t Referred To Contact Physical Therapy / PHYSICAL THERAPY Diagnoses Lymphedema [I89.0] Procedures EST RS PT LYMPHEDEMA Self Prerna Bonds, PT [address] [place] [address] Reason Comments Follow Up Specialty Diagnoses / [...] Expiration Date V isits Requested Visits Authorized [id number] Closed PCP Requested Referral Auto-Generated Referral 03/21/2022 06/21/2022 12 12 Specialty Diagnoses / Procedures Referred By Contac t Referred To Contact PHYSICAL THERAPY Diagnoses I89.0 (ICD-10-CM) - Lymphedema of both lower extremities Procedures I89.0 (ICD-10-CM) - Lymphedema of both lower extremities Jaquan Sanchez MD [address] [place] [address] Pt On License Of [facility] [address] [place] [address] Referral ID Status Reason Start Date Expiration Date V isits Requested Visits Authorized [id number] Outside PCP 08/10/2022 11/08/2022 1 1 Reason Comments Swelling Established Patient Follow Up Pain Referral ID Status Reason Start Date Expiration Date V isits Requested Visits Authorized [id number] Authorized 09/10/2022 12/23/2022 12 12 Reason Comments Results Reason Comments Physical Therapy Specialty Diagnoses / Procedures Referred By Contac t Referred To Contact PHYSICAL THERAPY Diagnoses I89.0 (ICD-10-CM) - Lymphedema of both lower extremities Procedures I89.0 (ICD-10-CM) - Lymphedema of both lower extremities Jaquan Sanchez MD [address] [place] [address] Pt On License Of [facility] [address] [place] [address] Reason Onset Date Comments Referral Information 12/06/2022 [...] Expiration Date V isits Requested Visits Authorized [id number] Authorized 01/25/2023 05/14/2023 16 16 Referral ID Status Reason Start Date Expiration Date V isits Requested Visits Authorized [id number] Closed PCP Requested Referral Auto-Generated Referral 12/04/2022 [...] Procedures: 9032 - CONSULT TO PHYSICAL THERAPY 36753 (CPT ) - PHYSICAL THERAPY EVALUATION HIGH COMPLEX 45 MINS Start: May 15, 2023 Procedures R26.81 (ICD-10-CM) - Unsteady gait when walking I89.0 (ICD-10-CM) - Lymphedema of both lower extremities Procedures: 9032 - CONSULT TO PHYSICAL THERAPY 79146 (CPT ) - PHYSICAL THERAPY EVALUATION HIGH COMPLEX 45 MINS Start: May 15, 2023 Chhaya Stacy MD [address] [place] [address] Prerna Bonds, PT Referral ID Status Reason Start Date Expiration Date V isits Requested Visits Authorized [id number] Authorized 06/27/2023 08/25/2023 16 16 Specialty Diagnoses / Procedures Referred By Contac t Referred To Contact [facility] Diagnoses Lymphedema of both lower extremities Procedures PT REHAB FOLLOW UP ORDER THERAPEUTIC EXERCISES RE, EA 15 MIN. Chhaya Stacy MD [address] [place] [address] [facility] [place] [address] [place] [address] Referral ID Status Reason Start Date Expiration Date Visits Requested Visits Authorized [id number] Authorized PCP Requested Referral Auto-Generate d Referral 09/27/2023 10/26/2023 4 4 Specialty Diagnoses / Procedures Referred By Celestino t Referred To Contact PHYSICAL THERAPY Diagnoses Lymphedema, not elsewhere classified I89.0 (ICD-10-CM) - Lymphedema of both lower extremities Procedures I89.0 (ICD-10-CM) - Lymphedema of both lower extremities Chhaya Stacy MD [address] [place] [address] Pt [facility] [address] [facility] [place] [address] Referral ID Status Reason Start Date Expiration Date V isits Requested Visits Authorized [id number] Authorized 10/28/2023 01/28/2024 8 8 Reason Comments Established Patient Debridement of Nail Specialty Diagnoses / Procedures Referred By Contac t Referred To Contact PHYSICAL THERAPY Diagnoses Lymphedema, not elsewhere classified I89.0 (ICD-10-CM) - Lymphedema of both lower extremities Procedures I89.0 (ICD-10-CM) - Lymphedema of both lower extremities Chhaya Stacy MD [address] [place] [address] Pt On License Of [facility] [address] [facility] [place] [address] Referral ID Status Reason Start Date Expiration Date Visits Re quested Visits Authorized [id number] Closed 10/28/2023 01/28/2024 8 8 Referral ID Status Reason Start Date Expiration Date Visits Requested Visits Authorized [id number] Authorized PCP Requested Referral Auto-Generate d Referral 01/22/2024 04/26/2024 4 4 Specialty Diagnoses / Procedures Referred By Contac t Referred To Contact Physical Therapy / PHYSICAL THERAPY Diagnoses Lymphedema of both lower extremities Procedures PT REHAB FOLLOW UP ORDER THERAPEUTIC EXERCISES RE, EA 15 MIN. Chhaya Stacy MD [address] [place] [address] Prerna Bonds PT Referral ID Status Reason Start Date Expiration Date V isits Requested Visits Authorized [id number] Closed PCP Requested Referral Auto-Generated Referral 01/22/2024 04/26/2024 4 4 Specialty Diagnoses / Procedures Referred By Contac t Referred To Contact Physical Therapy / PHYSICAL THERAPY Diagnoses Lymphedema, not elsewhere classified Procedures THERAPEUTIC EXERCISES RE, EA 15 MIN. Chhaya Stacy MD [address] [place] [address] Prerna Bonds PT Referral ID Status Reason Start Date Expiration Date V isits Requested Visits Authorized [id number] Authorized 03/12/2024 06/26/2024 20 20 Reason Comments Returning Patient's Call Returned pt's v Ludi labsil message requesting more PT visits and concern that her legs/feet are more swollen. Therapist reviewed the appts that were already scheduled with pt and offered an appt for Sat. 06/15 that became available today d/t can. Pt first stated she could only keep Saturday's visit (06/19) because her trailer tank truck driver can only take her on Fridays. Later, she said she would call her trailer tank truck driver to see if she could bring her on Saturday and would let us know. Reviewed HEP with pt & instructed to do 2x/day Specialty Diagnoses / Procedures Referred By Contac t Referred To Contact PHYSICAL THERAPY Diagnoses 89.0 (ICD-10-CM) - Lymphedema, not elsewhere classified Procedures 89.0 (ICD-10-CM) - Lymphedema, not elsewhere classified Chhaya Stacy MD [address] [place] [address] Pt On License Of [facility] [address] [place] [address] Referral ID Status Reason Start Date Expiration Date V isits Requested Visits Authorized [id number] Authorized 07/07/2024 09/25/2024 20 20 Specialty Diagnoses / Procedures Referred By Contac t Referred To Contact PHYSICAL THERAPY Diagnoses 89.0 (ICD-10-CM) - Lymphedema, not elsewhere classified Procedures 89.0 (ICD-10-CM) - Lymphedema, not elsewhere classified Chhaya Stacy MD [address] [place] [address] Pt On License Of [facility] [address] [place] [address] Specialty Diagnoses / Procedures Referred By Contac t Referred To Contact [facility] Diagnoses Lymphedema of both lower extremities Procedures PT REHAB FOLLOW UP ORDER THERAPEUTIC EXERCISES RE, EA 15 MIN. Tyler Benitez MD [address] [place] [address] Phone: tel: fax: [facility] [address] [place] [address] Referral ID Status Reason Start Date Expiration Date Visits Requested Visits Authorized [id number] Authorized PCP Requested Referral Auto-Generate d Referral [...] spoke with nurse in [facility]) who consulted physician on staff and [...] of both lower extremities Procedures EST PT/OT [facility] Tyler Benitez MD [address] [place] [address] Phone: tel: fax: Ana Rosa Ricketts, PT [address] [place] [address] Phone: tel: Referral ID Status Reason Start Date Expiration Date V isits Requested Visits Authorized [id number] Authorized 03/17/2025 06/17/2025 15 15 Care Teams (unrecognized sec tion and content) Highway Maintainer Relationship Specialty Start Date End Date Tyler Benitez MD [address] [place] [address] PCP - General Family Practice 06/06/20 Geo Rivera MD [address] [place] [address] Referring Orthotics & Prosthetics 07/11/20 Highway Maintainer Relationship Specialty Start Date End Date Tyler Benitez MD [address] [place] [address] PCP - General Family Practice 06/06/20 Geo Rivera MD [address] [place] [address] Referring Orthotics & Prosthetics 07/11/20 Highway Maintainer Relationship Specialty Start Date End Date Tyler Benitez MD [address] [place] [address] PCP - General Family Practice 06/06/20 Geo Rivera MD [address] [place] [address] Referring Orthotics & Prosthetics 07/11/20 Highway Maintainer Relationship Specialty Start Date End Date Tyler Benitez MD [address] [place] [address] PCP - General Family Practice 06/06/20 Geo Rivera MD [address] [place] [phone] Referring Orthotics & Prosthetics 07/11/20 [address] Maintainer Relationship Specialty Start Date End Date Tyler Benitez MD [address] [place] [address] PCP - General Family Practice 06/06/20 Geo Rivera MD [address] [place] [phone] Referring Orthotics & Prosthetics 07/11/20 [address] Maintainer Relationship Specialty Start Date End Date Tyler Benitez MD [address] [place] [address] PCP - General Family Practice 06/06/20 Geo Rivera MD [address] [place] [address] Referring Orthotics & Prosthetics 07/11/20 [address] Maintainer Relationship Specialty Start Date End Date Tyler Benitez MD [address] [place] [address] PCP - General Family Practice 06/06/20 Geo Rivera MD [address] [place] [address] Referring Orthotics & Prosthetics 07/11/20 [address] Maintainer Relationship Specialty Start Date End Date Tyler Benitez MD [address] [place] [address] PCP - General Family Practice 06/06/20 Geo Rivera MD [address] [place] [phone] Referring Orthotics & Prosthetics 07/11/20 [address] Maintainer Relationship Specialty Start Date End Date Tyler Benitez MD [address] [place] [address] PCP - General Family Medicine 06/06/20 Geo Rivera MD [address] [place] [address] Referring Orthotics & Prosthetics 07/11/20 [address] Maintainer Relationship Specialty Start Date End Date Tyler Benitez MD [address] [place] [address] PCP - General Family Medicine 06/06/20 Geo Rivera MD [address] [place] [address] Referring Orthotics & Prosthetics 07/11/20 [address] Maintainer Relationship Specialty Start Date End Date Tyler Benitez MD [address] [place] [address] PCP - General Family Medicine 06/06/20 Geo Rivera MD [address] [place] [address] Referring Orthotics & Prosthetics 07/11/20 [address] Maintainer Relationship Specialty Start Date End Date Tyler Benitez MD [address] [place] [address] PCP - General Family Medicine 06/06/20 Geo Rivera MD [address] [place] [address] Referring Orthotics & Prosthetics 07/11/20 [address] Maintainer Relationship Specialty Start Date End Date Tyler Benitez MD [address] [place] [address] PCP - General Family Medicine 06/06/20 Geo Rivera MD [address] [place] [address] Referring Orthotics & Prosthetics 07/11/20 [address] Maintainer Relationship Specialty Start Date End Date Tyler Benitez MD [address] [place] [address] PCP - General Family Medicine 06/06/20 Geo Rivera MD [address] [place] [address] Referring Orthotics & Prosthetics 07/11/20 Highway Maintainer Relationship Specialty Start Date End Date Tyler Benitez MD [address] [place] [address] PCP - General Family Medicine 06/06/20 Geo Rivera MD [address] [place] [address] Referring Orthotics & Prosthetics 07/11/20 Highway Maintainer Relationship Specialty Start Date End Date Tyler Benitez MD [address] [place] [address] PCP - General Family Medicine 06/06/20 Geo Rivera MD [address] [place] [address] Referring Orthotics & Prosthetics 07/11/20 Highway Maintainer Relationship Specialty Start Date End Date Tyler Benitez MD [address] [place], [place] [address] PCP - General Family Medicine 06/06/20 Geo Rivera MD [address] [place] [phone] Referring Orthotics & Prosthetics 07/11/20 Highway Maintainer Relationship Specialty Start Date End Date Tyler Benitez MD [address] [place], [place] [id number] PCP - General Family Medicine 06/06/20 Geo Rivera MD [address] [place] [phone] Referring Orthotics & Prosthetics 07/11/20 Team Status: Active Member Role Status Dates Dr. Tyler Benitez MD Family Provider Active Dr. Tyler Benitez MD Primary Care Provider Active Team Status: Inactive Member Role Status Dates Dr. Tyler Benitez MD Primary Care Provide r, Attending Provider, Referring Provider Active Highway Maintainer Relationship Specialty Start Date End Date Tyler Benitez MD [address] [place] [address] PCP - General Family Medicine 06/06/20 Geo Rivera MD [address] [place] [phone] Referring Orthotics & Prosthetics 07/11/20 Team Status: Inactive Member Role Status Dates Dr. Tyler Benitez MD Primary Care Provider, Referring P murphy Active Jaquan Yarbrough BILLING DEPARTMENT SUPERVISOR, BILLING DEPARTMENT SUPERVISOR-C Attending Provider Active Highway Maintainer Relationship Specialty Start Date End Date Tyler Benitez MD [address] [place] [address] PCP - General Family Medicine 06/06/20 Geo Rivera MD [address] [place] [address] Referring Orthotics & Prosthetics 07/11/20 Highway Maintainer Relationship Specialty Start Date End Date Tyler Benitez MD [address] [place] [address] PCP - General Family Medicine 06/06/20 Geo Rivera MD [address] [place] [address] Referring Orthotics & Prosthetics 07/11/20 Highway Maintainer Relationship Specialty Start Date End Date Tyler Benitez MD [address] [place] [address] PCP - General Family Medicine 06/06/20 Geo Rivera MD [address] [place] [address] Referring Orthotics & Prosthetics 07/11/20 Highway Maintainer Relationship Specialty Start Date End Date Tyler Benitez MD [address] [place] [address] PCP - General Family Medicine 06/06/20 Geo Rivera MD [address] [place] [address] Referring Orthotics & Prosthetics 07/11/20 Highway Maintainer Relationship Specialty Start Date End Date Tyler Benitez MD [address] [place] [address] PCP - General Family Medicine 06/06/20 Geo Rivera MD [address] [place] [address] Referring Orthotics & Prosthetics 07/11/20 Highway Maintainer Relationship Specialty Start Date End Date Tyler Benitez MD [address] [place] [address] PCP - General Family Medicine 06/06/20 Geo Rivera MD [address] [place], [place] [address] Referring Orthotics & Prosthetics 07/11/20 Highway Maintainer Relationship Specialty Start Date End Date Tyler Benitez MD [address] [place] [address] PCP - General Family Medicine 06/06/20 Geo Rivera MD [address] [place] [address] Referring Orthotics & Prosthetics 07/11/20 Highway Maintainer Relationship Specialty Start Date End Date Tyler Benitez MD [address] [place] [address] PCP - General Family Medicine 06/06/20 Geo Rivera MD [address] [place] [address] Referring Orthotics & Prosthetics 07/11/20 Highway Maintainer Relationship Specialty Start Date End Date Tyler Benitez MD [address] [place] [address] PCP - General Family Medicine 06/06/20 Goe Rivera MD [address] [place] [address] Referring Orthotics & Prosthetics 07/11/20 Highway Maintainer Relationship Specialty Start Date End Date Tyler Benitez MD [address] [address] PCP - General Family Medicine 06/06/20 Geo Rivera MD [address] [facility] [address] Referring Orthotics & Prosthetics 07/11/20 Highway Maintainer Relationship Specialty Start Date End Date Tyler Benitez MD [address] [facility] [place], [place] [address] PCP - General Family Medicine 06/06/20 Geo Rivera MD [address] [facility] [place], [place] [address] Referring Orthotics & Prosthetics 07/11/20 Team Status: [...] Dr. Armand Bob MD Attending Provider Active Highway Maintainer Relationship Specialty Start Date End Date Tyler Benitez MD [address] [place], [place] [phone] PCP - General Family Medicine 06/06/20 Geo Rivera MD [address] [place], [place] [address] Referring Orthotics & Prosthetics 07/11/20 Highway Maintainer Relationship Specialty Start Date End Date Tyler Benitez MD [address] [place], [place] [address] PCP - General Family Medicine 06/06/20 Geo Rivera MD [address] [place], [place] [address] Referring Orthotics & Prosthetics 07/11/20 Highway Maintainer Relationship Specialty Start Date End Date Tyler Benitez MD [address] [place], [place] [address] PCP - General Family Medicine 06/06/20 Geo Rivera MD [address] [place], [place] [address] Referring Orthotics & Prosthetics 07/11/20 Team Status: Active Member Role Status Dates Dr. Tyler Benitez MD Primary Care Provider Active Dr. Mir Brumfield MD Attending Provider Active Dr. Mariusz Waters MD Referring Provider Active Team Status: Inactive Member Role Status Dates Dr. Tyler Benitez MD Primary Care Provider Active Dr. Sage Augustin MD Emergency Provider Active Highway Maintainer Relationship Specialty Start Date End Date Tyler Benitez MD [address] [place], [place] [address] PCP - General Family Medicine 06/06/20 Geo Rivera MD [address] [place], [place] [address] Referring Orthotics & Prosthetics 07/11/20 Team Status: Inactive Member Role Status Dates Dr. Tyler Benitez MD Primary Care Provider Active Dr. Sage Augustin MD Attending Provider, Emergency Provider Active Team Status: Inactive Member Role Status Dates Dr. Tyler Benitez MD Primary Care Provider, Attending Francis arrington Active Highway Maintainer Relationship Specialty Start Date End Date Tyler Benitez MD [address] [place], [place] [address] PCP - General Family Medicine 06/06/20 Geo Rivera MD [address] [place] [address] Referring Orthotics & Prosthetics 07/11/20 Highway Maintainer Relationship Specialty Start Date End Date Tyler Benitez MD [address] [place] [address] PCP - General Family Medicine 06/06/20 Geo Rivera MD [address] [place] [address] Referring Orthotics & Prosthetics 07/11/20 Highway Maintainer Relationship Specialty Start Date End Date Tyler Benitez MD [address] [place] [address] PCP - General Family Medicine 06/06/20 Geo Rivera MD [address] [place] [address] Referring Orthotics & Prosthetics 07/11/20 Highway Maintainer Relationship Specialty Start Date End Date Tyler Benitez MD [address] [place] [address] PCP - General Family Medicine 06/06/20 Geo Rivera MD [address] [place] [address] Referring Orthotics & Prosthetics 07/11/20 Highway Maintainer Relationship Specialty Start Date End Date Tyler Benitez MD [address] [place] [address] PCP - General Family Medicine 06/06/20 Geo Rivera MD [address] [place] [address] Referring Orthotics & Prosthetics 07/11/20 Highway Maintainer Relationship Specialty Start Date End Date Tyler Benitez MD [address] [place] [address] PCP - General Family Medicine 06/06/20 Geo Rivera MD [address] [place] [address] Referring Orthotics & Prosthetics 07/11/20 Highway Maintainer Relationship Specialty Start Date End Date Tyler Benitez MD [address] [place] [address] PCP - General Family Medicine 06/06/20 Geo Rivera MD [address] [place] [address] Referring Orthotics & Prosthetics 07/11/20 Team Status: Inactive Member Role Status Dates Dr. Tyler Benitez MD Primary Care Provider, Referring P murphy Active Jimbo ALEXANDER, [place] Attending Provider Active Highway Maintainer Relationship Specialty Start Date End Date Tyler Benitez MD [address] [place] [address] PCP - General Family Medicine 06/06/20 Geo Rivera MD [address] [place] [address] Referring Orthotics & Prosthetics 07/11/20 Highway Maintainer Relationship Specialty Start Date End Date Tyler Benitez MD [address] [place] [address] PCP - General Family Medicine 06/06/20 Geo Rivera MD [address] [place] [address] Referring Orthotics & Prosthetics 07/11/20 Highway Maintainer Relationship Specialty Start Date End Date Tyler Benitez MD [address] [place], [place] [address] PCP - General Family Medicine 06/06/20 Geo Rivera MD [address] [place], [place] [address] Referring Orthotics & Prosthetics 07/11/20 Highway Maintainer Relationship Specialty Start Date End Date Tyler Benitez MD [address] [place], [place] [address]461 PCP - General Family Medicine 06/06/20 Geo Rivera MD [address] [place], [place] [address] Referring Orthotics & Prosthetics 07/11/20 Highway Maintainer Relationship Specialty Start Date End Date Tyler Benitez MD [address] [place], [place] [address] PCP - General Family Medicine 06/06/20 Geo Rivera MD [address] [place], [place] [address] Referring Orthotics & Prosthetics 07/11/20 Team Status: Active Member Role Status Dates Dr. Tyler eBnitez MD Primary Care Provider Active Team Status: [...] March 02, 2025 End: March 02, 2025 Highway Maintainer Relationship Specialty Start Date End Date Tyler Benitez MD [address] [place] [address] PCP - General Family Medicine 06/06/20 Geo Rivera MD [address] [place] [address] Referring Orthotics & Prosthetics 07/11/20 Team Status: [...] March 12, 2025 End: March 12, 2025 [address] Maintainer Relationship Specialty Start Date End Date Tyler Benitez MD [address] [place], [place] [address] PCP - General Family Medicine 06/06/20 Geo Rivera MD [address] [place] [address] Referring Orthotics & Prosthetics 07/11/20 Team Status: [...] BE BASED ON THE PRIMARY CLINICAL RECORDS. [facility]. provides no warranty or guarantee of the accuracy or completeness of information in this document.
[2025-06-17 00:07] VITALS: BP 142/57; PULSE 88; RESP 20; TEMP 36.8; O2SAT 99
[2025-06-17 00:17] VITALS: BMI 34.5
[2025-06-17] MEDS: 0.9% Saline Lock 10 ML Syringe IV (00:56)
[2025-06-17] MEDS: 0.9% Normal Saline (1000mL) 1,000 ML 70 ML IV (00:56)
[2025-06-17 05:46] VITALS: BP 119/64; PULSE 96; RESP 18; TEMP 36.5; O2SAT 99
[2025-06-17 06:00] VITALS: BMI 34.7
[2025-06-17 06:17] LABS: Hematocrit 30.2 % (37-47); Hemoglobin 9.6 g/dL (12.0-15.0); Immature Granulocytes Count 0.170 X10^3/uL (0.0-0.0); Mean Corp Hgb Conc 31.8 g/dL (32-36); Mean Corpuscular Volume 88.0 fL (81-99); Mean Platelet Vol. 10.5 fl (6.2-12.0); NRBC Flagged by Analyzer 0 % (0-5); Platelet Count 195 K/mm3 (150-450); RBC Distribution Width CV 14.7 % (11.6-14.6); RBC Distribution Width SD 47.8 fl (35.1-43.9); Red Blood Count 3.43 M/mm3 (4.2-5.4); White Blood Count 4.8 K/mm3 (4.4-11.0)
[2025-06-17 06:53] LABS: Cholesterol 128 mg/dL (<=200); Low Density Lipoprotein Calc. 66 mg/dL; Triglycerides 130 mg/dL; Very Low Density Lipoprotein 26 mg/dL (5-40); cholesterol:hdl ratio screen 3.32
[2025-06-17 06:54] LABS: AST(SGOT) 18 U/L (<=31); Alanine Aminotransfer ALT/SGPT < 5 U/L (<=34); Albumin, Serum 2.6 g/dL (3.4-4.8); Alkaline Phosphatase 56 U/L (35-104); Anion Gap 9 (5-15); BUN 57 mg/dL (4-19); BUN/Creat Ratio 19.6 RATIO (10-20); Calcium,Total 8.1 mg/dL (7.6-11.0); Carbon Dioxide 22.3 mmol/L (21.0-32.0); Chloride 110 mmol/L (98-108); Estimated Creatinine Clearance 13.01 ml/min (50-250); Globulin 3.0 g/dL (2.2-4.2); Glucose 92 mg/dL (70-99); Potassium 4.2 mmol/L (3.3-5.1)
[2025-06-17 09:13] VITALS: BP 125/65; PULSE 84; RESP 18; TEMP 36.7; O2SAT 99
[2025-06-17] MEDS: Cholecalciferol (VIT D3) 25 MCG TABLET (1,000 UNITS) PO (09:17)
[2025-06-17] MEDS: Ensure Plus High Protein 120 ML LIQUID PO (09:17)
--- NOTE | 2025-06-17 09:41 | PN.HOSP_ITS ---
Reason for Visit Chief Complaint: Kidney Problem. Subjective Subjective Saw patient at bedside this morning. Patient was mildly fatigued appearing but otherwise sitting back comfortably in bed, conversing normally, in no acute distress. No new concerns morning. Objective Data Objective Data Vital Signs: Vital Signs Temp Pulse Resp BP Pulse Ox O2 Del Method 98.1 F 84 18 125/65 H 99 Room Air 06/17/25 09:13 06/17/25 09:13 06/17/25 09:13 06/17/25 09:13 06/17/25 09:13 06/17/25 09:13 Oxygen Delivery Method Room Air Weight: 80.2 kg Body Mass Index (BMI) 34.7 Intake & Output: Intake and Output for Last 24 Hours 06/15/25 06/16/25 06/17/25 23:59 23:59 23:59 Intake Total 200 / 200 Balance 200 / 200 Lab / Micro Data 06/17/25 05:41 06/17/25 05:41 Labs: Laboratory Results - last 24 hr 06/16/25 20:40: WBC 5.3, RBC 3.54 L, Hgb 9.9 L, Hct 30.8 L, MCV 87.0, MCH 28.0, MCHC 32.1, RDW Std Deviation 47.1 H, RDW Coeff of [place] 14.6, Plt Count 206, MPV 10.5, Immature Gran % (Auto) 3.000 H, Neut % (Auto) 73.3 H, Lymph % (Auto) 12.3 L, [place] % (Auto) 8.5, Eos % (Auto) 2.1, Baso % (Auto) 0.8, Absolute Neuts (auto) 3.9, Absolute Lymphs (auto) 0.65 L, Nucleated RBC % 0, Sodium 139, Potassium 4.6, Chloride 105, Carbon Dioxide 22.8, Anion Gap 11, BUN 61 H, Creatinine 3.39 H, Est GFR (MDRD) Non-Af 13 L, BUN/Creatinine Ratio 17.9, Glucose 91, Calcium 8.2, Phosphorus 3.5, Magnesium 2.1, Troponin T High Sens 21 H, NT pro BNP II 1560, TSH 3.240 06/16/25 21:13: Urine Color Yellow, Urine Clarity Clear, Urine pH 5.0, Ur Specific [place] 1.020, Urine Protein 30 H, Urine Glucose (UA) Normal, Urine Ketones Negative, Urine Occult Blood 10 H, Urine Nitrite Negative, Urine Bilirubin Negative, Urine Urobilinogen Normal, Ur Leukocyte Esterase Negative, Urine RBC 0-5 SEEN, Urine WBC 0-5 SEEN, Ur Squamous Epith Cells 0-5 SEEN, Urine Bacteria 0 SEEN, Urine Mucus 0 SEEN 06/17/25 05:41: WBC 4.8, RBC 3.43 L, Hgb 9.6 L, Hct 30.2 L, MCV 88.0, MCH 28.0, MCHC 31.8 L, RDW Std Deviation 47.8 H, RDW Coeff of [place] 14.7 H, Plt Count 195, MPV 10.5, Immature Gran % (Auto) 3.600 H, Neut % (Auto) 66.1, Lymph % (Auto) 15.9 L, [place] % (Auto) 11.7 H, Eos % (Auto) 2.1, Baso % (Auto) 0.6, Absolute Neuts (auto) 3.2, Absolute Lymphs (auto) 0.76 L, Nucleated RBC % 0, Sodium 141, Potassium 4.2, Chloride 110 H, Carbon Dioxide 22.3, Anion Gap 9, BUN 57 H, C reatinine 2.91 H, Estim Creat Clear Calc 13.01 L, Est GFR (MDRD) Non-Af 15 L, BUN/Creatinine Ratio 19.6, Glucose 92, Calcium 8.1, Phosphorus 3.3, Total Bilirubin < 0.15, AST 18, ALT < 5, Alkaline Phosphatase 56, Total Protein 5.6 L, Albumin 2.6 L, Globulin 3.0, Albumin/Globulin Ratio 0.9, Triglycerides 130, Cholesterol 128, LDL Cholesterol, Calc 66, VLDL Cholesterol 26, HDL Cholesterol 39 L, Cholesterol/HDL Ratio 3.32 Radiography Diagnostic Testing: Radiology Impression Renal Ultrasound 06/16/25 23:23 IMPRESSION: Right renal cortical echogenic focus could suggest calcification versus a stone. Please correlate with CT as clinically warranted. Reading Location: [place] [address] Physical Exam Const alert, oriented x3 and no apparent distress Constitutional Narrative: Elderly female, class I obesity, mildly fatigued appearing, otherwise sitting back comfortably in bed, conversing normally, in no acute distress. General Appearance: cooperative and comfortable HEENT normocephalic, head/scalp atraumatic, hearing grossly normal bilaterally, nasal mucous membranes and turbinates normal and moist oral mucous membranes Eyes PERRL, EOMs intact bilaterally and conjunctivae normal Neck full ROM Chest inspection of chest normal Resp normal respiratory effort, normal air movement, no use of accessory muscles and clear to auscultation bilaterally Cardio regular rate, regular rhythm, no murmurs and peripheral pulses 2+ throughout GI normal to inspection, nondistended, normoactive bowel sounds, soft to palpation, non-tender and non-distended Back/Spine normal ROM Extremity Extremity Narrative: +3-4 bilateral lower extremity edema noted, chronic due to lymphedema. Skin no rashes or lesions noted Neuro moves all extremities and no focal motor deficits Psych mental status grossly normal Assessment & Plan Assessment/Plan (1) VICTORINO (acute kidney injury): PLAN: Plan Patient is an 84-year-old female who presented to [facility] ED on 06/16/2025 with abnormal kidney function. 1. VICTORINO with ATN in setting of CKD stage IIIb – Creatinine 3.39 on admit, baseline around 1.4-1.7. Renal ultrasound unremarkable. FeNa 2.5% consistent with intrinsic renal disease. Presentation most consistent with overdiuresis from home torsemide and worsened kidney function in setting of home lisinopril as well, that has now progressed to ATN. Given IV fluids on admit and repeat creatinine 2.91 on 06/17. Holding home torsemide and lisinopril. Will hold on further IV fluids for now as well. Monitor daily BMP and urine output. 2. Chronic lower extremity lymphedema with suspected left lower extremity cellulitis, chronic debility and recent minor mechanical fall – PT/OT/case management following. She was previously having massage therapy done for her chronic lower extremity lymphedema, but apparently that physical therapist is not working anymore. Patient would like to resume massage therapy but notes it is difficult for her to go outside of [place] to do this. Patient did have a recent minor mechanical fall and was seen in the ED on 06/14 for this. ED physician noted that left leg appeared to have findings consistent with cellulitis so she was started on p.o. antibiotics on discharge from the ED. Okay to continue Keflex at this time. Suspect dehydration from her VICTORINO as above may be contributing to this fall. Did have good therapy scores here on hospital day 2 and will be plan for discharge home possibly with home health care. 3. Chronic normocytic anemia secondary to renal disease – Hemoglobin stable at baseline around 10 at this time. 4. Chronic HFpEF, history of nonobstructive CAD, hypertension – Follows with outpatient cardiology, last office visit in early April. Echo on 03/12/2025 showed EF 55% stage I diastolic dysfunction, mild pulmonary hypertension, no other concerning findings. Holding home lisinopril and torsemide on admit given VICTORINO as above. Continue home carvedilol. 5. GERD – Continue home PPI. 6. Class I obesity – BMI 34 on admit. Complicates hospital course and care. DVT prophylaxis: Heparin subcu CODE STATUS: Full code, verified Expected disposition: Home possibly with home health care, 1 to 2 days Total clinical time spent by myself addressing the patient's medical issues, reviewing all the data, and collaborating with patient's care team: 41 minutes. Charges/Coding Visit Charges Inpatient E&M: 62020 Subs Hosp L2
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
[2025-06-17 14:40] VITALS: BP 115/48; PULSE 78; RESP 18; TEMP 37.1; O2SAT 99
[2025-06-17 18:01] VITALS: BP 110/43; PULSE 94; RESP 18; TEMP 37.1; O2SAT 98
[2025-06-17] MEDS: Lactated Ringers 1,000 ML 75 ML IV (18:25)
[2025-06-17 20:20] VITALS: BP 107/43; PULSE 81; RESP 15; TEMP 36.7; O2SAT 96
[2025-06-18 05:00] VITALS: BP 117/45; PULSE 78; RESP 15; TEMP 36.4; O2SAT 97
[2025-06-18 06:08] LABS: Hematocrit 28.8 % (37-47); Hemoglobin 9.1 g/dL (12.0-15.0); Mean Corp Hgb Conc 31.6 g/dL (32-36); Mean Corpuscular Volume 89.2 fL (81-99); Mean Platelet Vol. 10.7 fl (6.2-12.0); Platelet Count 183 K/mm3 (150-450); RBC Distribution Width CV 14.9 % (11.6-14.6); RBC Distribution Width SD 48.2 fl (35.1-43.9); Red Blood Count 3.23 M/mm3 (4.2-5.4); White Blood Count 4.6 K/mm3 (4.4-11.0)
[2025-06-18 06:24] LABS: Anion Gap 7 (5-15); BUN 44 mg/dL (4-19); BUN/Creat Ratio 23.2 RATIO (10-20); Calcium,Total 8.1 mg/dL (7.6-11.0); Carbon Dioxide 22.6 mmol/L (21.0-32.0); Chloride 109 mmol/L (98-108); Estimated Creatinine Clearance 20.14 ml/min (50-250); Glucose 94 mg/dL (70-99); Potassium 4.6 mmol/L (3.3-5.1)
--- NOTE | 2025-06-18 08:28 | WOUNDNOTE ---
wound photo: left medial lower leg
--- NOTE | 2025-06-18 08:29 | WOUNDNOTE ---
skin photo: bilateral lower legs
[2025-06-18] MEDS: Cholecalciferol (VIT D3) 25 MCG TABLET (1,000 UNITS) PO (09:32)
[2025-06-18 09:37] VITALS: BP 124/57; PULSE 87; RESP 18; TEMP 36.7; O2SAT 99
--- NOTE | 2025-06-18 10:01 | PCM.DC.SUM ---
Providers Date of Admission: 06/16/25 Date of Discharge: 06/18/25 Primary Care Physician: Dr. Jason Benitez MD Consultations 06/16/25 23:52 Consult: Nephrology Routine Consulting Provider: Charlotte Piedra Reason for Consult: VICTORINO; in the setting of CKD; stage IIIb 2/2 loop diuretic and CYNDIE inhibitor. EMERGENT Consult: No MD Notified: No Date Notified: 06/16/25 Time Notified: 23:17 06/17/25 01:13 Consult: Onc/Wound/passport application examiner Routine Comment: Reason For Visit: VICTORINO; IN THE SETTING OF CKD; STAGE IIIB 2/2 ADR TO Diagnosis Discharge Diagnosis (1) VICTORINO (acute kidney injury): Status: Acute Code(s): N17.9 - Acute kidney failure, unspecified Medications at Discharge Home Medications cholecalciferol (vitamin D3) 25 mcg (1,000 unit) capsule 1,000 unit PO DAILY supplement 08/12/17 acetaminophen 500 mg tablet (Acetaminophen Extra Strength) 500 mg PO Q6H PRN pain 04/15/23 docusate sodium 100 mg capsule (Colace) 100 mg PO DAILY PRN constipation 04/15/23 albuterol sulfate 90 mcg/actuation aerosol inhaler 1 inh inhalation Q4-6H PRN shortness of breath or wheezing 05/03/25 pantoprazole 40 mg tablet,delayed release (Protonix) 40 mg PO QDAY reflux 05/03/25 carvedilol 6.25 mg tablet 6.25 mg PO BID HTN #180 tabs 06/04/25 cephalexin 250 mg capsule 250 mg PO TID 2 days #6 caps 06/18/25 torsemide 10 mg tablet 10 mg PO QODAY 90 days #45 tabs 06/18/25 Hospital Course Operations None Procedures - (Renal ultrasound) Summary of Care Provided Minutes Spent on Discharge: 37 Hospital Course: Patient is an 84-year-old female who presented to [facility] ED on 06/16/2025 with abnormal kidney function. Hospital course as noted below. Patient discharged home in stable condition on 06/18. 1. VICTORINO with ATN in setting of CKD stage IIIb, resolved – Creatinine 3.39 on admit, baseline around 1.4-1.7. Renal ultrasound unremarkable. FeNa 2.5% consistent with intrinsic renal disease. Presentation most consistent with overdiuresis from home torsemide and worsened kidney function in setting of home lisinopril as well, that has now progressed to ATN. Given IV fluids during admission and creatinine resolved back to baseline 1.88 by day of discharge. Recommend repeat BMP in about 1 week to ensure he creatinine remained stable. 2. Chronic lower extremity lymphedema with suspected left lower extremity cellulitis, chronic debility and recent minor mechanical fall – PT/OT/case management followed. She was previously having massage therapy done for her chronic lower extremity lymphedema, but apparently that physical therapist is not working anymore. Patient would like to resume massage therapy but notes it is difficult for her to go outside of [place] to do this. Patient did have a recent minor mechanical fall and was seen in the ED on 06/14 for this. ED physician noted that left leg appeared to have findings consistent with cellulitis so she was started on p.o. antibiotics on discharge from the ED. Continued Keflex and patient will complete 7-day course of this total on discharge. Good therapy scores on hospital day 2, stable for home with no therapy needs. 3. Chronic normocytic anemia secondary to renal disease – Hemoglobin stable at baseline around 10 at this time. 4. Chronic HFpEF, history of nonobstructive CAD, hypertension – Follows with outpatient cardiology, last office visit in early April. Echo on 03/12/2025 showed EF 55% stage I diastolic dysfunction, mild pulmonary hypertension, no other concerning findings. Held home lisinopril and torsemide during admission. Will hold lisinopril at discharge and resumed torsemide at reduced dose of 10 mg every other day. Okay to continue home Coreg. 5. GERD – Continue home PPI. 6. Class I obesity – BMI 34 on admit. Complicated hospital course and care. Total clinical time spent by myself addressing the patient's medical issues, reviewing all the data, and collaborating with patient's care team: 37 minutes. Physical Exam Const alert, oriented x3 and no apparent distress Constitutional Narrative: Elderly female, class I obesity, mildly fatigued appearing, otherwise sitting back comfortably in bed, conversing normally, in no acute distress. Stable. General Appearance: cooperative and comfortable HEENT normocephalic, head/scalp atraumatic, hearing grossly normal bilaterally, nasal mucous membranes and turbinates normal and moist oral mucous membranes Eyes PERRL, EOMs intact bilaterally and conjunctivae normal Neck full ROM Chest inspection of chest normal Resp normal respiratory effort, normal air movement, no use of accessory muscles and clear to auscultation bilaterally Cardio regular rate, regular rhythm, no murmurs and peripheral pulses 2+ throughout GI normal to inspection, nondistended, normoactive bowel sounds, soft to palpation, non-tender and non-distended Back/Spine normal ROM Extremity Extremity Narrative: +3-4 bilateral lower extremity edema noted, chronic due to lymphedema. Skin no rashes or lesions noted Neuro moves all extremities and no focal motor deficits Psych mental status grossly normal Weight / BMI Weight Weight: 80.2 kg Body Mass Index (BMI) 34.7 ABG / Lab / Microbiology Data 06/18/25 05:07 06/18/25 05:07 Laboratory: Laboratory Results - last 24 hr 06/17/25 14:30: Ur Random Sodium 106, Urine Creatinine 102.00 06/18/25 05:07: WBC 4.6, RBC 3.23 L, Hgb 9.1 L, Hct 28.8 L, MCV 89.2, MCH 28.2, MCHC 31.6 L, RDW Std Deviation 48.2 H, RDW Coeff of [place] 14.9 H, Plt Count 183, MPV 10.7, Sodium 139, Potassium 4.6, Chloride 109 H, Carbon Dioxide 22.6, Anion Gap 7, BUN 44 H, Creatinine 1.88 H, Estim Creat Clear Calc 20.14 L, Est GFR (MDRD) Non-Af 26 L, BUN/Creatinine Ratio 23.2 H, Glucose 94, Calcium 8.1, Phosphorus 2.6 L D/C Instructions DC O2, CPAP, BIPAP Needs Home O2 Discharge instructions: No Meaningful Use Info Meaningful Use Meaningful Use Diagnoses (Choose all that apply): None applicable Discharge Plan Admission Admit Date/Time: 06/16/25 23:15 Primary Reason for Your Visit: acute kidney injury Attending Provider: Sabas Hoskins Primary Care Provider: Jason Benitez Consulting Providers: Armand Blackmon Instructions Additional Instructions / Restrictions: Take 2 more days of Keflex to complete 7 day course of antibiotics total for leg cellulitis. Take torsemide 10 mg only every other day for leg swelling and high blood pressure. Stop taking lisinopril. Follow up with your PCP in the office in the next few weeks. Discharge Orders/Prescriptions Prescriptions: New cephalexin 250 mg Capsule 250 mg PO TID 2 Days Qty: 6 0RF torsemide 10 mg tablet 10 mg PO QODAY 90 Days Qty: 45 0RF Continued pantoprazole [Protonix] 40 mg tablet,delayed release (DR/EC) 40 mg PO QDAY albuterol sulfate 90 mcg/actuation HFA aerosol inhaler 1 inh inhalation Q4-6H PRN (Reason: shortness of breath or wheezing) cholecalciferol (vitamin D3) 1,000 UNIT capsule 1,000 unit PO DAILY docusate sodium [Colace] 100 mg capsule 100 mg PO DAILY PRN (Reason: constipation) acetaminophen [Acetaminophen Extra Strength] 500 mg tablet 500 mg PO Q6H PRN (Reason: pain) carvedilol 6.25 mg tablet 6.25 mg PO BID Qty: 180 3RF Rx Instructions: must administer with a meal/food Discontinued potassium chloride 20 mEq tablet,ER particles/crystals 20 meq PO DAILY Qty: 30 Patient Comments: TAKE 1 TABLET BY MOUTH DAILY cephalexin 500 mg capsule 500 mg PO TID Qty: 30 0RF torsemide 20 mg tablet 20 mg PO DAILY Qty: 90 3RF lisinopril 10 mg tablet 10 mg PO BID Qty: 180 3RF Referrals / Follow Up: Demetrio Hinds MD [Med Staff - Active Staff, Cardiology] Jason Benitez MD [Primary Care Provider, Family Practice] Disposition Disposition (needs filled in before D/C Order can be placed): Home, Self Care Charges/Coding Visit Charges Inpatient E&M: 62840 Disch Hosp >30min
--- NOTE | 2025-06-18 11:18 | CASEMGMT ---
Social Work Pt's nephew requesting information on advance directives in the event pt would ever be agreeable to complete. SW provided nephew with "You Have a Choice" booklet as well as blank documents and an advance directive RACK card and informed that pt can schedule an appointment as an outpt when she is ready to complete documents. CURT Oates
--- NOTE | 2025-06-18 11:37 | PHA.DC.MC.R ---
Pharmacy [facility] Counseling Pharmacy Service has performed discharge medication reconciliation and counseling for this patient. The patient's discharge medication list was reviewed for discrepancies and discrepancies were resolved. The patient was counseled on the following discharge medications and changes in medications for homegoing were reviewed. The Reason for Use, instructions for use, and potential side effects were reviewed for all new medications. The patient's questions regarding all of their medications were answered. 1. Cephalexin 250 mg PO TID x 2 days 2. Torsemide 10 mg PO QOD The patient was able to verbally demonstrate an understanding of their discharge medications. Medications at Discharge Home Medications cholecalciferol (vitamin D3) 25 mcg (1,000 unit) capsule 1,000 unit PO DAILY supplement 08/12/17 acetaminophen 500 mg tablet (Acetaminophen Extra Strength) 500 mg PO Q6H PRN pain 04/15/23 docusate sodium 100 mg capsule (Colace) 100 mg PO DAILY PRN constipation 04/15/23 albuterol sulfate 90 mcg/actuation aerosol inhaler 1 inh inhalation Q4-6H PRN shortness of breath or wheezing 05/03/25 pantoprazole 40 mg tablet,delayed release (Protonix) 40 mg PO QDAY reflux 05/03/25 carvedilol 6.25 mg tablet 6.25 mg PO BID HTN #180 tabs 06/04/25 cephalexin 250 mg capsule 250 mg PO TID 2 days #6 caps 06/18/25 torsemide 10 mg tablet 10 mg PO QODAY 90 days #45 tabs 06/18/25
[2025-06-21 11:08] LABS: Vitamin D 1,25-Dihydroxy 20.0 pg/mL (24.8-81.5)
== END 2025-06-18 12:33 | disposition home or self-care (01) | DRG 683 ==
LOC: ED 21:01 → ICU 23:28 → MS3 23:33
PROVIDERS: Admitting Provider Internal Medicine; Emergency Provider Emergency Medicine; PCP Family Medicine; Visit Provider Hospitalist
DX: N17.0 Acute kidney failure with tubular necrosis (principal); I13.0 Hypertensive heart and chronic kidney disease with heart failure and stage 1 through stage 4 chronic kidney disease, or unspecified chronic kidney disease; D69.3 Immune thrombocytopenic purpura; I50.32 Chronic diastolic (congestive) heart failure; I42.8 Other cardiomyopathies; L03.116 Cellulitis of left lower limb; D63.1 Anemia in chronic kidney disease; N18.32 Chronic kidney disease, stage 3b; Z68.36 Body mass index [BMI] 36.0-36.9, adult; I89.0 Lymphedema, not elsewhere classified; K21.9 Gastro-esophageal reflux disease without esophagitis; I25.10 Atherosclerotic heart disease of native coronary artery without angina pectoris; I25.2 Old myocardial infarction; E66.811 Obesity, class 1; Z79.51 Long term (current) use of inhaled steroids; Z79.899 Other long term (current) drug therapy; Z86.16 Personal history of COVID-19; Z92.3 Personal history of irradiation; Z86.73 Personal history of transient ischemic attack (TIA), and cerebral infarction without residual deficits
CPT/HCPCS: 36415; 71045; 73552; 73590; 76770; 80048; 80053; 80061; 81001; 82570; 82652; 83605; 83735; 83880; 84100; 84300; 84443; 84484; 85025; 85027; 93005; 93971; 94668; 96365; 97162; 97166; 97530; 97802; 99283; 99285; P9612; A4216

== ENCOUNTER 2025-06-23 10:49 | Emergency (ER) | payer MEDICARE, SELFPAY ==
[2025-06-23 10:49] VITALS: BP 146/53; PULSE 100; RESP 18; TEMP 36.5; O2SAT 100
[2025-06-23 11:00] VITALS: BP 146/53; PULSE 100; RESP 18; TEMP 36.5; O2SAT 100; BMI 35.7
--- NOTE | 2025-06-23 11:41 | RAD_ITS ---
PROCEDURE: RAD/Tibia & Fibula 2 Views
--- NOTE | 2025-06-23 11:41 | RAD_ITS ---
PROCEDURE: RAD/Foot min 3 Views
[2025-06-23 12:49] VITALS: PULSE 88; RESP 18; O2SAT 100
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
[2025-06-23 13:30] VITALS: BP 176/64; PULSE 89; RESP 18; TEMP 36.5; O2SAT 100
--- NOTE | 2025-06-23 15:40 | CM.ED ---
Social Work Patient requesting to speak to SW regarding advanced directives. Patient stated that she currently has her nephew as her HPOA but she may want to change her primary agent. Patient stated she is afraid he wants to put her in a [place] [facility] facility and she does not want that. SW educated patient on advanced directives and that someone can change their primary agent at any time as long as they were cognitively able to make their own decisions. Patient expressed understanding of same. No further needs identified at this time. Lisa Aguilar, BEVEL GEAR GENERATOR OPERATOR, CASHIER OR CHECKER STOCK CLERK
== END 2025-06-23 14:00 | disposition home or self-care (01) ==
PROVIDERS: Emergency Provider Emergency Medicine; PCP Family Medicine; Visit Provider Emergency Medicine
DX: M79.671 Pain in right foot (principal); I11.0 Hypertensive heart disease with heart failure; I50.42 Chronic combined systolic (congestive) and diastolic (congestive) heart failure; E78.2 Mixed hyperlipidemia; I87.2 Venous insufficiency (chronic) (peripheral); I25.10 Atherosclerotic heart disease of native coronary artery without angina pectoris; I25.2 Old myocardial infarction; Z85.3 Personal history of malignant neoplasm of breast; Z85.42 Personal history of malignant neoplasm of other parts of uterus; Z86.73 Personal history of transient ischemic attack (TIA), and cerebral infarction without residual deficits; K21.9 Gastro-esophageal reflux disease without esophagitis; Z79.899 Other long term (current) drug therapy; Z90.710 Acquired absence of both cervix and uterus
CPT/HCPCS: 73590; 73630; 99282

== ENCOUNTER → 2025-07-06 | Outpatient (CLI) | payer MEDICARE, SELFPAY ==
[2025-07-06 18:33] LABS: AST(SGOT) 23 U/L (<=31); Alanine Aminotransfer ALT/SGPT 8 U/L (<=34); Albumin, Serum 3.6 g/dL (3.4-4.8); Alkaline Phosphatase 84 U/L (35-104); Anion Gap 11 (5-15); BUN 13 mg/dL (4-19); BUN/Creat Ratio 11.1 RATIO (10-20); CRP 13.40 mg/L (0.0-3.0); Calcium,Total 9.6 mg/dL (7.6-11.0); Carbon Dioxide 22.9 mmol/L (21.0-32.0); Chloride 104 mmol/L (98-108); Globulin 4.4 g/dL (2.2-4.2); Glucose 84 mg/dL (70-99); Potassium 4.1 mmol/L (3.3-5.1); Pro- Brain NATRIURETIC PEPTIDE 1878 pg/mL (<=1800)
== END | disposition home or self-care (01) ==
LOC: MTLAB 15:56
PROVIDERS: PCP Family Medicine; Referring Provider Family Medicine; Visit Provider Family Medicine
DX: N18.32 Chronic kidney disease, stage 3b (principal); J39.9 Disease of upper respiratory tract, unspecified
CPT/HCPCS: 36415; 80053; 83880; 86140